=== PATIENT | male | born 1950 | race Caucasian/White ===

== ENCOUNTER 2017-01-05 11:35 | Emergency (ER) | payer MEDICARE, MEDICAID ==
[~2017-01-05] VITALS: Ht 157.5 cm; Wt 94.3 kg
[~2017-01-05 11:35] MED LIST: ACETAMINOPHEN &1 TA1 PO; ALBUTEROL2.5 MG/NEB IN; ALDACTONE 25MG25 MG PO; AMIODARONE 200200 MG PO; ASPIR 8181 MG PO; ATIVAN GENERIC0.5 MG PO; BISAC-EVAC10 MG PR; BUTRANS10 MCG/HR TD; CARAFATE 11 GM/10 ML PO; CARVEDILOL 25MG25 MG PO; CLOPIDOGREL75 MG PO; DEMADEX20 MG PO; DOCUSATE SODIU100 MG PO; FERROUS SULFAT325 M2 PO; FLONASE 50 MCG16 GM; GOOD SENSE PAI500 MG PO; HUMALOG PEN100 U/ML SC; HYDROCODONE/ACE1 TA5 PO; INSPRA25 MG PO; KEFLEX 500MG.500 MG PO; LACTULOSE10 GM/15 M PO; LASIX 40MG. TAB40 MG PO; LEVEMIR FLEX100 U/ML SC; LIPITOR80 MG PO; LOPRESSOR 25MG.25 MG FT; LORATADINE 10MG10 M1 PO; LORTAB 500 MG-11 TAB PO; LYRICA50 M1 PO; METOLAZONE 5MG T5 MG PO; MORPHINE SULFAT15 M1 PO; MORPHINE SULFAT15 M2 PO; MORPHINE SULFAT60 MG PO; MULTIVITAMIN1 SGL PO; NEURONTIN400 MG; NORCO 325 MG-101 TAB PO; NOVOLIN R100 U/ML; NOVOLOG FLEX100 U/ML SC; NOVOLOG100 U/ML SC; Novolog100 U/ML SC; OMEPRAZOLE20 MG PO; PREGABALIN 50MG50 MG PO; PRINIVIL10 M1 PO; REQUIP0.25 MG PO; ROBAFEN DM 10120 ML PO; ROBITUSSIN10 ML/UDC PO; ROPINIROLE HYDRO2 MG PO; SENNA LAXATIVE8.6 MG PO; TAMIFLU 75MG CA75 MG PO; TAMSULOSIN HYD0.4 MG PO; TORSEMIDE 20MG20 MG PO; VITAMIN D1000 IU PO; ZANTAC 150150 MG PO
--- NOTE | 2017-01-05 11:42 | Emergency Room Report ---
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 N Clinical Suspician of Infection? N Mental Status: 1 - Regular (Normal Baseline) Sepsis Risk:Low Sepsis Risk Have you (or family members/close friends) recently traveled outside the [place]? N If Yes, where/when: Have you had exposure to infectious disease within the past month? TB? Other? Specify: Comment The patient is brought in by ambulance from a senior living. He complains of "smothering". He says this is been going on for 1 month, but is getting worse. He saw his binding cementer french cord yesterday who told him he had "fluid everywhere". His dose of torsemide was increased. He also was started on doxycycline for cellulitis of his legs. He says they told him if he was not better today to come to the emergency room and be admitted. He also says that his abdomen feels tight. He says his bowels are not moving. He says his last bowel movement was 4 days ago. The patient's binding cementer french [facility] Coded Allergies: sulfamethoxazole (From BACTRIM) (01/05/17) trimethoprim (From BACTRIM) (01/05/17) Home Medications Reported Medications INSULIN ASPART (Novolog) 11 UNITS SC AC Insulin Aspart, Recombinant (Novolog VIAL) 0 SC AC ROPINIROLE HCL (Ropinirole) 2 MG PO QHS Aspirin (Aspirin EC 81MG Tab) 81 MG PO DAILY Carvedilol (Carvedilol 25MG) 25 MG PO BID Ferrous Sulfate (Ferrous Sulfate 325MG) 325 MG PO QPM HYDROCODONE/ACETAMINOPHEN ([place] 10-325 Tablet) 1 TAB PO Q6PRN PRN PAIN Docusate Sodium 250 MG PO DAILY Insulin Detemir (Levemir Flextouch) 35 UNITS SC QHS #3 Acetaminophen (Pain Relief) 1,000 MG PO Q6HP PRN PAIN/FEVER Bisacodyl (Bisacodyl Supp) 10 MG [place] DAILYP PRN CONSTIPATION Lactulose (Lactulose) 30 ML PO DAILYP PRN CONSTIPATION TORSEMIDE (Torsemide 20MG) 20 MG PO BID Eplerenone (Inspra) 12.5 MG PO DAILY GUAIFENESIN/DEXTROMETHORPHAN (Robafen-Dm Syrup) 5 ML PO QHS Pregabalin (Lyrica) 50 MG PO TID Atorvastatin Calcium (Atorvastatin) 80 MG PO QHS Loratadine (Loratadine 10MG Tablet) 10 MG PO DAILY MULTIVITAMIN (Multivitamins) 1 SGL PO DAILY Ranitidine Hcl (Zantac) 150 MG PO BID Senna Pod (Senna Laxative) 2 TAB PO BID CHOLECALCIFEROL (VITAMIN D3) (Vitamin D3) 2,000 IUNITS PO DAILY History Medical History General CAD? No Angina: No [place]: Yes Hypertension? Yes Hyperlipidemia? Yes CHF? Yes DVT? No PE? No COPD? Yes Asthma? No Anemia? Yes GERD? Yes Gastric ulcers? No GI Bleed? No Hernia? No Thyroid Problems? No Hypothyroidism? No CVA? No Seizures? No Diabetes? 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 Yes End Stage Renal Disease? No UTI? Yes Stones? No BPH? No GB Disease: No Nephritic Syndrome? No Asplenia? No Hepatitis? No Sickle Cell Disease? No Arthritis? Yes Migraines? Yes Cataracts? No Glaucoma? No MRSA? No HIV? No TB? No Anxiety? No Depression? No Cancer? No More? Yes Additional hx: RHEUMATOID ARTHRITIS OSTEOARTHRITIS Immunization Hx Ped.Immunizations UTD Yes DT/Tetanus Unknown Flu 2014-FSN Pneumonia Refuses Surgical Hx Previous Surgery?Y STENTS X2 DEFIBRILLATOR PORT PLACED Family History Family Hx Diabetes Yes CAD Yes Hypertension Yes Hyperlipidemia Yes Cancer Yes TB No Social History Smoking Hx Smoker: Unknown if Ever Smoked Tobacco: No Type N/A Packs/day N/A Alcohol Alcohol: No Review of Systems All Other Systems Reviewed and Negative Constitutional denies fever Respiratory shortness of breath Cardiovascular denies chest pain, edema Gastrointestinal see HPI Physical Exam Vital Signs Vital Signs Date Time Temp Pulse Resp B/P Pulse O2 O2 Flow FiO2 Ox Delivery Rate 01/05 1530 80 18 125/74 98 01/05 1507 82 18 131/76 94 3 01/05 1401 77 18 143/66 92 3 01/05 1156 92 01/05 1136 98.3 86 18 146/76 98 General Appearance debilitated Eye Exam - bilateral eye normal exam, bilateral eye PERRL, bilateral eye EOMI Ear, Nose, Throat hearing grossly normal, normal ENT inspection Neck normal inspection, non-tender, supple, full range of motion Respiratory Status Yes: trachea midline, chest symmetrical. No: respiratory distress. Lung Sounds bilateral: decreased breath sounds. Cardiovascular normal exam, regular rate/rhythm, no peripheral edema, no gallop, no JVD, no murmur, no rub, normal peripheral pulses Gastrointestinal normal bowel sounds, normal exam, non tender, soft, no organomegaly Extremities edema all 4 extremities, eyrthema of lower legs bilaterally symmetric Neurologic alert Mental status normal mood/affect Skin intact, normal color, warm/dry Medical Decision Making LABS/Meds/Orders Pt receiving controlled substance in ED? No Results/Orders Laboratory Tests 01/05/17 1140: Sodium 142, Potassium 4.3, Chloride 102, Carbon Dioxide 39 H, BUN 65 H, Creatinine 1.7 H, Estimated Creat Clear 56, Estimated GFR (MDRD) 40, Glucose 201 H, Calcium 8.8, Total Bilirubin 0.4, AST 20, ALT 23, Alkaline Phosphatase 77, Creatine Kinase 40, CK-MB (CK-2) Rel Index 2.5, CK and CKMB Interp 1.0, Troponin I 0.03, B-Natriuretic Peptide 148 H, Total Protein 7.8, Albumin 2.6 L , Globulin 5.2 H, Albumin/Globulin Ratio 0.5 L, WBC 8.4, RBC 4.11 L, Hgb 9.6 L, Hct 33.1 L, MCV 80.5 L, RDW 15.7, Plt Count 217, MPV 8.1, Gran % 86.2 H, Gran # 7.3, Total Counted 100, Lymphocytes % 6.7 L, Monocytes % 4.6, Eosinophils % 2.4, Basophils % 0.2, Neutrophils 93 H, Lymphocytes (Manual) 4 L , Lymphocytes # 0.6 L, Monocytes (Manual) 1 L, Monocytes # 0.4, Eosinophils # 0.2, Eosinophils # (Manual) 2, Basophils # 0.0, Platelet Estimate NORMAL, PUBS MCHC 28.9 L, MCH 23.3 L, Influenza Type A Ag NOT DETECTED, Influenza Type B Ag NOT DETECTED Current Medication Orders Sig/Malorie Start time Last Medication Dose Route Stop Time Status Admin Furosemide 80 MG ONCE ONE 01/05 1445 DC 01/05 IV 01/05 1446 1435 Furosemide 0 .STK-MED ONE 01/05 1434 DC .ROUTE Furosemide 80 MG ONCE ONE 01/05 1415 CAN IV 01/05 1416 Sodium Chloride 10 ML PRN PRN 01/05 1200 DCD IV 01/06 1148 Orders Procedure Date/time Status OXYGEN PER NURSE 01/05 1155 Active 12 LEAD EKG-MAGEN (INITIAL) 01/05 1150 Active ELECTROCARDIOGRAM REQUEST 01/05 1148 Active IV SALINE LOCK 01/05 1148 Active INFLUENZA A&B ANTIGENS 01/05 1148 Complete CBC WITH AUTO DIFF 01/05 1148 Complete CARDIAC ENZYMES 01/05 1148 Complete CHEM 12 PROFILE 01/05 1148 Complete BRAIN NATRIURETIC PEPTIDE 01/05 1148 Complete DIFFERENTIAL-WBC 01/05 1140 Complete CM/EKG CM/EKG Comments EKG interpreted by Jay Black MD: Rhythm: sinus Rate: 80 [place]: normal Ectopy: none Conduction: normal ST Segment Changes: none T Wave Changes: none Q Waves: none No evidence of acute ischemia or injury Baseline artifact and wander present, but I consider the EKG adequate for accurate interpretation. XRAY/CT/US XRAY/CT/US XRAY chest Comment X-ray interpreted by radiologist: Mild congestive heart failure, low lung volumes Progress - 2:25 PM: Case discussed with Dr. Flower, his PCP. He states that he has nothing to offer the patient here, since his binding cementer french cord does not come here and the patient's primary problem is congestive heart failure. He states patient is chronically short of breath. I have discussed this with the patient. He states that he does not want [facility] be [facility] to [facility], does not want to be admitted, because the last time he was admitted he just sat in a room for several days. He saw his binding cementer french cord yesterday and has another appointment to see him on next he wants to wait until then. I will give him a dose of Lasix here. He is happy with this and wants to be discharged back to the senior living. Departure Departure Disposition DC Home or Self Care(routine) Clinical Impression Primary Impression: Congestive heart failure Qualifiers: Congestive heart failure type: unspecified congestive heart failure type Congestive heart failure chronicity: acute on chronic Qualified Code: I50.9 - Heart failure, unspecified Condition STABLE Referrals NO REFERRAL Patient Instructions DI for Heart Failure Additional Instructions Continue current medications. Call the patient's binding cementer french cord, Dr. Henley, for further instructions. ED Critical Care Critical Care No at 1601
--- NOTE | 2017-01-05 11:42 | Emergency Room Report ---
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 N Clinical Suspician of Infection? N Mental Status: 1 - Regular (Normal Baseline) Sepsis Risk:Low Sepsis Risk Have you (or family members/close friends) recently traveled outside the [place]? N If Yes, where/when: Have you had exposure to infectious disease within the past month? TB? Other? Specify: Comment The patient is brought in by ambulance from a assisted. He complains of "smothering". He says this is been going on for 1 month, but is getting worse. He saw his biologist yesterday who told him he had "fluid everywhere". His dose of torsemide was increased. He also was started on doxycycline for cellulitis of his legs. He says they told him if he was not better today to come to the emergency room and be admitted. He also says that his abdomen feels tight. He says his bowels are not moving. He says his last bowel movement was 4 days ago. The patient's biologist is Dr. Henley at [facility] ALLERGIES Coded Allergies: sulfamethoxazole (From BACTRIM) (01/05/17) trimethoprim (From BACTRIM) (01/05/17) Home Medications Reported Medications INSULIN ASPART (Novolog) 11 UNITS SC AC Insulin Aspart, Recombinant (Novolog VIAL) 0 SC AC ROPINIROLE HCL (Ropinirole) 2 MG PO QHS Aspirin (Aspirin EC 81MG Tab) 81 MG PO DAILY Carvedilol (Carvedilol 25MG) 25 MG PO BID Ferrous Sulfate (Ferrous Sulfate 325MG) 325 MG PO QPM HYDROCODONE/ACETAMINOPHEN ([place] 10-325 Tablet) 1 TAB PO Q6PRN PRN PAIN Docusate Sodium 250 MG PO DAILY Insulin Detemir (Levemir Flextouch) 35 UNITS SC QHS #3 Acetaminophen (Pain Relief) 1,000 MG PO Q6HP PRN PAIN/FEVER Bisacodyl (Bisacodyl Supp) 10 MG [place] DAILYP PRN CONSTIPATION Lactulose (Lactulose) 30 ML PO DAILYP PRN CONSTIPATION TORSEMIDE (Torsemide 20MG) 20 MG PO BID Eplerenone (Inspra) 12.5 MG PO DAILY GUAIFENESIN/DEXTROMETHORPHAN (Robafen-Dm Syrup) 5 ML PO QHS Pregabalin (Lyrica) 50 MG PO TID Atorvastatin Calcium (Atorvastatin) 80 MG PO QHS Loratadine (Loratadine 10MG Tablet) 10 MG PO DAILY MULTIVITAMIN (Multivitamins) 1 SGL PO DAILY Ranitidine Hcl (Zantac) 150 MG PO BID Senna Pod (Senna Laxative) 2 TAB PO BID CHOLECALCIFEROL (VITAMIN D3) (Vitamin D3) 2,000 IUNITS PO DAILY History Medical History General CAD? No Angina: No [place]: Yes Hypertension? Yes Hyperlipidemia? Yes CHF? Yes DVT? No PE? No COPD? Yes Asthma? No Anemia? Yes GERD? Yes Gastric ulcers? No GI Bleed? No Hernia? No Thyroid Problems? No Hypothyroidism? No CVA? No Seizures? No Diabetes? 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 Yes End Stage Renal Disease? No UTI? Yes Stones? No BPH? No GB Disease: No Nephritic Syndrome? No Asplenia? No Hepatitis? No Sickle Cell Disease? No Arthritis? Yes Migraines? Yes Cataracts? No Glaucoma? No MRSA? No HIV? No TB? No Anxiety? No Depression? No Cancer? No More? Yes Additional hx: RHEUMATOID ARTHRITIS OSTEOARTHRITIS Immunization Hx Ped.Immunizations UTD Yes DT/Tetanus Unknown Flu 2014-FSN Pneumonia Refuses Surgical Hx Previous Surgery?Y STENTS X2 DEFIBRILLATOR PORT PLACED Family History Family Hx Diabetes Yes CAD Yes Hypertension Yes Hyperlipidemia Yes Cancer Yes TB No Social History Smoking Hx Smoker: Unknown if Ever Smoked Tobacco: No Type N/A Packs/day N/A Alcohol Alcohol: No Review of Systems All Other Systems Reviewed and Negative Constitutional denies fever Respiratory shortness of breath Cardiovascular denies chest pain, edema Gastrointestinal see HPI Physical Exam Vital Signs Vital Signs Date Time Temp Pulse Resp B/P Pulse O2 O2 Flow FiO2 Ox Delivery Rate 01/05 1530 80 18 125/74 98 01/05 1507 82 18 131/76 94 3 01/05 1401 77 18 143/66 92 3 01/05 1156 92 01/05 1136 98.3 86 18 146/76 98 General Appearance debilitated Eye Exam - bilateral eye normal exam, bilateral eye PERRL, bilateral eye EOMI Ear, Nose, Throat hearing grossly normal, normal ENT inspection Neck normal inspection, non-tender, supple, full range of motion Respiratory Status Yes: trachea midline, chest symmetrical. No: respiratory distress. Lung Sounds bilateral: decreased breath sounds. Cardiovascular normal exam, regular rate/rhythm, no peripheral edema, no gallop, no JVD, no murmur, no rub, normal peripheral pulses Gastrointestinal normal bowel sounds, normal exam, non tender, soft, no organomegaly Extremities edema all 4 extremities, eyrthema of lower legs bilaterally symmetric Neurologic alert Mental status normal mood/affect Skin intact, normal color, warm/dry Medical Decision Making LABS/Meds/Orders Pt receiving controlled substance in ED? No Results/Orders Laboratory Tests 01/05/17 1140: Sodium 142, Potassium 4.3, Chloride 102, Carbon Dioxide 39 H, BUN 65 H, Creatinine 1.7 H, Estimated Creat Clear 56, Estimated GFR (MDRD) 40, Glucose 201 H, Calcium 8.8, Total Bilirubin 0.4, AST 20, ALT 23, Alkaline Phosphatase 77, Creatine Kinase 40, CK-MB (CK-2) Rel Index 2.5, CK and CKMB Interp 1.0, Troponin I 0.03, B-Natriuretic Peptide 148 H, Total Protein 7.8, Albumin 2.6 L , Globulin 5.2 H, Albumin/Globulin Ratio 0.5 L, WBC 8.4, RBC 4.11 L, Hgb 9.6 L, Hct 33.1 L, MCV 80.5 L, RDW 15.7, Plt Count 217, MPV 8.1, Gran % 86.2 H, Gran # 7.3, Total Counted 100, Lymphocytes % 6.7 L, Monocytes % 4.6, Eosinophils % 2.4, Basophils % 0.2, Neutrophils 93 H, Lymphocytes (Manual) 4 L , Lymphocytes # 0.6 L, Monocytes (Manual) 1 L, Monocytes # 0.4, Eosinophils # 0.2, Eosinophils # (Manual) 2, Basophils # 0.0, Platelet Estimate NORMAL, PUBS MCHC 28.9 L, MCH 23.3 L, Influenza Type A Ag NOT DETECTED, Influenza Type B Ag NOT DETECTED Current Medication Orders Sig/Malorie Start time Last Medication Dose Route Stop Time Status Admin Furosemide 80 MG ONCE ONE 01/05 1445 DC 01/05 IV 01/05 1446 1435 Furosemide 0 .STK-MED ONE 01/05 1434 DC .ROUTE Furosemide 80 MG ONCE ONE 01/05 1415 CAN IV 01/05 1416 Sodium Chloride 10 ML PRN PRN 01/05 1200 DCD IV 01/06 1148 Orders Procedure Date/time Status OXYGEN PER NURSE 01/05 1155 Active 12 LEAD EKG-MAGEN (INITIAL) 01/05 1150 Active ELECTROCARDIOGRAM REQUEST 01/05 1148 Active IV SALINE LOCK 01/05 1148 Active INFLUENZA A&B ANTIGENS 01/05 1148 Complete CBC WITH AUTO DIFF 01/05 1148 Complete CARDIAC ENZYMES 01/05 1148 Complete CHEM 12 PROFILE 01/05 1148 Complete BRAIN NATRIURETIC PEPTIDE 01/05 1148 Complete DIFFERENTIAL-WBC 01/05 1140 Complete CM/EKG CM/EKG Comments EKG interpreted by Jay Black MD: Rhythm: sinus Rate: 80 [place]: normal Ectopy: none Conduction: normal ST Segment Changes: none T Wave Changes: none Q Waves: none No evidence of acute ischemia or injury Baseline artifact and wander present, but I consider the EKG adequate for accurate interpretation. XRAY/CT/US XRAY/CT/US XRAY chest Comment X-ray interpreted by radiologist: Mild congestive heart failure, low lung volumes Progress - 2:25 PM: Case discussed with Dr. Flower, his PCP. He states that he has nothing to offer the patient here, since his biologist does not come here and the patient's primary problem is congestive heart failure. He states patient is chronically short of breath. I have discussed this with the patient. He states that he does not want to be transferred to [facility], does not want to be admitted, because the last time he was admitted he just sat in a room for several days. He saw his biologist yesterday and has another appointment to see him on next he wants to wait until then. I will give him a dose of Lasix here. He is happy with this and wants to be discharged back to the assisted. Departure Departure Disposition DC Home or Self Care(routine) Clinical Impression Primary Impression: Congestive heart failure Qualifiers: Congestive heart failure type: unspecified congestive heart failure type Congestive heart failure chronicity: acute on chronic Qualified Code: I50.9 - Heart failure, unspecified Condition STABLE Referrals NO REFERRAL Patient Instructions DI for Heart Failure Additional Instructions Continue current medications. Call the patient's biologist, Dr. Henley, for further instructions. ED Critical Care Critical Care No at 1601
[2017-01-05 12:01] LABS: HEMOGLOBIN 9.6 g/dL (14.1-18.0); LYMPH # 0.6 K/mm3 (0.7-4.5); LYMPH % 6.7 % (10-50)
[2017-01-05 12:23] LABS: NEUTROPHILS 93 % (42-76)
--- NOTE | 2017-01-05 13:26 | RADIOLOGY REPORT PS360 ---
CHEST-AP VIEW ONLY HISTORY: DIFFICULTY BREATHING ORDERING PHYSICIAN: Jay Black MD PATIENT AGE: 66 years COMPARISON: 09/28/2016 FINDINGS: There are low lung volumes There is cardiomegaly with prominence of the mediastinum similar to the previous exam. There is mild prominence of the pulmonary vasculature which may in part be due to the AP positioning and low lung volumes. Mild CHF is not excluded. There is a left subclavian Mediport catheter present. The tip is difficult to visualize. Right subclavian placed pacemaker is noted. IMPRESSION: Low lung volumes with mild CHF and prominent mediastinum
[2017-01-05 15:30] VITALS: BP 125/74
== END 2017-01-05 15:30 | disposition home or self-care (01) ==
LOC: ER 11:35
PROVIDERS: Emergency Medicine
DX: I50.9 Heart failure, unspecified (principal); Z79.899 Other long term (current) drug therapy; I10 Essential (primary) hypertension; J44.9 Chronic obstructive pulmonary disease, unspecified; Z88.2 Allergy status to sulfonamides; K21.9 Gastro-esophageal reflux disease without esophagitis; E11.9 Type 2 diabetes mellitus without complications; Z79.4 Long term (current) use of insulin; N28.9 Disorder of kidney and ureter, unspecified

== ENCOUNTER 2017-01-27 04:41 | Emergency (ER) | payer MEDICARE, MEDICAID ==
[~2017-01-27] VITALS: Ht 157.5 cm; Wt 94.3 kg
[2017-01-27] MEDS ORDERED: ATIVAN GENERIC0.5 MG PO (05:18)
--- NOTE | 2017-01-27 05:19 | Emergency Room Report ---
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 N Clinical Suspician of Infection? N Mental Status: 1 - Regular (Normal Baseline) Sepsis Risk:Low Sepsis Risk Have you (or family members/close friends) recently traveled outside the [place]? N If Yes, where/when: Have you had exposure to infectious disease within the past month? N TB? Other? Specify: Source patient, RN notes reviewed, family, EMS, longterm records, old records Exam Limitations no limitations Comment pt with sob at [facility] with hx of chfwith no chest pain Cardiac Chest Pain Chest pain indicative of cardiac No Timing/Duration this evening Severity moderate ALLERGIES Coded Allergies: sulfamethoxazole (From BACTRIM) (01/05/17) trimethoprim (From BACTRIM) (01/05/17) Home Medications Reported Medications ROPINIROLE HCL (Ropinirole) 2 MG PO QHS Aspirin (Aspirin EC 81MG Tab) 81 MG PO DAILY Carvedilol (Carvedilol 25MG) 25 MG PO BID Ferrous Sulfate (Ferrous Sulfate 325MG) 325 MG PO QPM HYDROCODONE/ACETAMINOPHEN (Hardwick 10-325 Tablet) 1 TAB PO Q6PRN PRN PAIN Docusate Sodium 250 MG PO DAILY Acetaminophen (Pain Relief) 1,000 MG PO Q6HP PRN PAIN/FEVER Bisacodyl (Bisacodyl Supp) 10 MG IN DAILYP PRN CONSTIPATION Lactulose (Lactulose) 30 ML PO DAILYP PRN CONSTIPATION Eplerenone (Inspra) 12.5 MG PO DAILY GUAIFENESIN/DEXTROMETHORPHAN (Robafen-Dm Syrup) 5 ML PO QHS Pregabalin (Lyrica) 50 MG PO TID Atorvastatin Calcium (Atorvastatin) 80 MG PO QHS Loratadine (Loratadine 10MG Tablet) 10 MG PO DAILY MULTIVITAMIN (Multivitamins) 1 SGL PO DAILY Ranitidine Hcl (Zantac) 150 MG PO BID Senna Pod (Senna Laxative) 2 TAB PO BID CHOLECALCIFEROL (VITAMIN D3) (Vitamin D3) 2,000 IUNITS PO DAILY Lorazepam (Ativan) 0.5 MG PO QHS Insulin Detemir (Levemir 10ML VIAL) 45 UNITS SC QHS Insulin Aspart, Recombinant (Novolog Flexpen) 30 UNITS SC DAILY History Medical History General CAD? No Angina: No RI: Yes Hypertension? Yes Hyperlipidemia? Yes CHF? Yes DVT? No PE? No COPD? Yes Asthma? No Anemia? Yes GERD? Yes Gastric ulcers? No GI Bleed? No Hernia? No Thyroid Problems? No Hypothyroidism? No CVA? No Seizures? No Diabetes? 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 Yes End Stage Renal Disease? No UTI? Yes Stones? No BPH? No GB Disease: No Nephritic Syndrome? No Asplenia? No Hepatitis? No Sickle Cell Disease? No Arthritis? Yes Migraines? Yes Cataracts? No Glaucoma? No MRSA? No HIV? No TB? No Anxiety? No Depression? No Cancer? No More? Yes Additional hx: RHEUMATOID ARTHRITIS OSTEOARTHRITIS Immunization Hx DT/Tetanus Unknown Flu 2014-16FSN Pneumonia Refuses Surgical Hx Previous Surgery?Y STENTS X2 DEFIBRILLATOR PORT PLACED Family History Family Hx Diabetes Yes CAD Yes Hypertension Yes Hyperlipidemia Yes Cancer Yes TB No Social History Smoking Hx Smoker: Never Smoker Tobacco: No Type Cigarettes Packs/day N/A Alcohol Alcohol: No Drugs none Review of Systems All Other Systems Reviewed and Negative Constitutional denies fever Eyes denies drainage ENT denies: ear discharge, epistaxis, throat pain. Respiratory see HPI, denies cough, shortness of breath, denies wheezing Cardiovascular see HPI, chest pain, denies palpitations, denies syncope Gastrointestinal denies abdominal pain, denies diarrhea, denies vomiting Genitourinary denies: dysuria, frequency, hesitancy, hematuria. Musculoskeletal denies back pain, denies joint pain, denies neck pain Skin denies rash Psychiatric/Neurological denies headache, denies seizure Physical Exam Vital Signs Vital Signs Date Time Temp Pulse Resp B/P Pulse O2 O2 Flow FiO2 Ox Delivery Rate 01/27 0649 77 20 152/78 92 2 01/27 0616 77 20 154/81 94 2 01/27 0532 83 28 162/81 92 2 01/27 0527 35 93 2 01/27 0442 98.4 86 35 158/81 93 2 - WBC >12,000 or <4,000 or 10% bands? 2 or more SIRS Criteria Met? B/P:152/78 MAP:106 Creatinine >2.0? UA output<0.5ml/kg/hr for 2 hrs? Platelet count >100,000? Lactate >2.0mmol/1? INR >1.2 or PTT > than 60 sec? Evidence of Organ Dysfunction? Provider documented clinical suspician of infection? N Sepsis Criteria Count: 1 Sepsis Risk: Low Sepsis Risk General Appearance no apparent distress Eye Exam - bilateral eye PERRL, bilateral eye EOMI Ear, Nose, Throat normal ENT inspection Neck supple Respiratory Status No: respiratory distress. Lung Sounds bilateral: decreased breath sounds. 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 No Results/Orders Laboratory Tests 01/27/17 0450: Sodium 143, Potassium 4.4, Chloride 103, Carbon Dioxide 41 *H, BUN 57 H, Creatinine 1.4 H, Estimated Creat Clear 68, Estimated GFR (MDRD) 51, Glucose 146 H, Calcium 8.9, Total Bilirubin 0.5, AST 19, ALT 19, Alkaline Phosphatase 69, Creatine Kinase 43, CK-MB (CK-2) Rel Index 3.0, CK and CKMB Interp 1.3, Troponin I 0.02, B-Natriuretic Peptide 923 H, Total Protein 7.8, Albumin 2.7 L , Globulin 5.1 H, Albumin/Globulin Ratio 0.5 L, WBC 7.2, RBC 4.10 L, Hgb 9.7 L, Hct 32.9 L, MCV 80.3 L, RDW 16.5, Plt Count 212, MPV 7.8, Gran % 83.3 H, Gran # 6.0, Lymphocytes % 8.7 L, Monocytes % 6.2, Eosinophils % 1.5, Basophils % 0.2, Lymphocytes # 0.6 L, Monocytes # 0.4, Eosinophils # 0.1, Basophils # 0.0 , PUBS MCHC 29.6 L, MCH 23.7 L Current Medication Orders Sig/Malorie Start time Last Medication Dose Route Stop Time Status Admin Furosemide 40 MG ONCE ONE 01/27 530 DC 01/27 IV 01/27 531 0524 Furosemide 0 .STK-MED ONE 01/27 523 DC .ROUTE Orders Procedure Date/time Status ELECTROCARDIOGRAM REQUEST 01/27 501 Active IV SALINE LOCK 01/27 501 Active ONLINE MERCHANT 01/27 501 Active CBC WITH AUTO DIFF 01/27 501 Complete CARDIAC ENZYMES 01/27 501 Complete CHEM 12 PROFILE 01/27 501 Complete BRAIN NATRIURETIC PEPTIDE 01/27 501 Complete 12 LEAD EKG-BESSON (INITIAL) 01/27 500 Active CM/EKG 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 ST/Twave chgs XRAY/CT/US XRAY/CT/US XRAY chest XR interpretation by reviewed by me Xray Results abnormal (see report) Departure Departure Time of Disposition 08 Disposition DC Home or Self Care(routine) Clinical Impression Primary Impression: CHF (congestive heart failure) Qualifiers: Congestive heart failure type: combined Congestive heart failure chronicity: acute on chronic Qualified Code: I50.43 - Acute on chronic combined systolic (congestive) and diastolic (congestive) heart failure Secondary Impressions: Anemia Qualifiers: Anemia type: unspecified type Qualified Code: D64.9 - Anemia, unspecified Renal insufficiency Condition STABLE Patient Instructions [facility] Additional Instructions resume meds Discharge Counseling Counseled pt/family regarding diagnosis, test results, medications/RX, follow up needs ED Critical Care Critical Care No at 0812
--- NOTE | 2017-01-27 05:19 | Emergency Room Report ---
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 N Clinical Suspician of Infection? N Mental Status: 1 - Regular (Normal Baseline) Sepsis Risk:Low Sepsis Risk Have you (or family members/close friends) recently traveled outside the [place]? N If Yes, where/when: Have you had exposure to infectious disease within the past month? N TB? Other? Specify: Source patient, RN notes reviewed, family, EMS, custodial records, old records Exam Limitations no limitations Comment pt with sob at [facility] with hx of chfwith no chest pain Cardiac Chest Pain Chest pain indicative of cardiac No Timing/Duration this evening Severity moderate ALLERGIES Coded Allergies: sulfamethoxazole (From BACTRIM) (01/05/17) trimethoprim (From BACTRIM) (01/05/17) Home Medications Reported Medications ROPINIROLE HCL (Ropinirole) 2 MG PO QHS Aspirin (Aspirin EC 81MG Tab) 81 MG PO DAILY Carvedilol (Carvedilol 25MG) 25 MG PO BID Ferrous Sulfate (Ferrous Sulfate 325MG) 325 MG PO QPM HYDROCODONE/ACETAMINOPHEN (Darwin 10-325 Tablet) 1 TAB PO Q6PRN PRN PAIN Docusate Sodium 250 MG PO DAILY Acetaminophen (Pain Relief) 1,000 MG PO Q6HP PRN PAIN/FEVER Bisacodyl (Bisacodyl Supp) 10 MG DE DAILYP PRN CONSTIPATION Lactulose (Lactulose) 30 ML PO DAILYP PRN CONSTIPATION Eplerenone (Inspra) 12.5 MG PO DAILY GUAIFENESIN/DEXTROMETHORPHAN (Robafen-Dm Syrup) 5 ML PO QHS Pregabalin (Lyrica) 50 MG PO TID Atorvastatin Calcium (Atorvastatin) 80 MG PO QHS Loratadine (Loratadine 10MG Tablet) 10 MG PO DAILY MULTIVITAMIN (Multivitamins) 1 SGL PO DAILY Ranitidine Hcl (Zantac) 150 MG PO BID Senna Pod (Senna Laxative) 2 TAB PO BID CHOLECALCIFEROL (VITAMIN D3) (Vitamin D3) 2,000 IUNITS PO DAILY Lorazepam (Ativan) 0.5 MG PO QHS Insulin Detemir (Levemir 10ML VIAL) 45 UNITS SC QHS Insulin Aspart, Recombinant (Novolog Flexpen) 30 UNITS SC DAILY History Medical History General CAD? No Angina: No NM: Yes Hypertension? Yes Hyperlipidemia? Yes CHF? Yes DVT? No PE? No COPD? Yes Asthma? No Anemia? Yes GERD? Yes Gastric ulcers? No GI Bleed? No Hernia? No Thyroid Problems? No Hypothyroidism? No CVA? No Seizures? No Diabetes? 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 Yes End Stage Renal Disease? No UTI? Yes Stones? No BPH? No GB Disease: No Nephritic Syndrome? No Asplenia? No Hepatitis? No Sickle Cell Disease? No Arthritis? Yes Migraines? Yes Cataracts? No Glaucoma? No MRSA? No HIV? No TB? No Anxiety? No Depression? No Cancer? No More? Yes Additional hx: RHEUMATOID ARTHRITIS OSTEOARTHRITIS Immunization Hx DT/Tetanus Unknown Flu 2014-16FSN Pneumonia Refuses Surgical Hx Previous Surgery?Y STENTS X2 DEFIBRILLATOR PORT PLACED Family History Family Hx Diabetes Yes CAD Yes Hypertension Yes Hyperlipidemia Yes Cancer Yes TB No Social History Smoking Hx Smoker: Never Smoker Tobacco: No Type Cigarettes Packs/day N/A Alcohol Alcohol: No Drugs none Review of Systems All Other Systems Reviewed and Negative Constitutional denies fever Eyes denies drainage ENT denies: ear discharge, epistaxis, throat pain. Respiratory see HPI, denies cough, shortness of breath, denies wheezing Cardiovascular see HPI, chest pain, denies palpitations, denies syncope Gastrointestinal denies abdominal pain, denies diarrhea, denies vomiting Genitourinary denies: dysuria, frequency, hesitancy, hematuria. Musculoskeletal denies back pain, denies joint pain, denies neck pain Skin denies rash Psychiatric/Neurological denies headache, denies seizure Physical Exam Vital Signs Vital Signs Date Time Temp Pulse Resp B/P Pulse O2 O2 Flow FiO2 Ox Delivery Rate 01/27 0649 77 20 152/78 92 2 01/27 0616 77 20 154/81 94 2 01/27 0532 83 28 162/81 92 2 01/27 0527 35 93 2 01/27 0442 98.4 86 35 158/81 93 2 - WBC >12,000 or <4,000 or 10% bands? 2 or more SIRS Criteria Met? B/P:152/78 MAP:106 Creatinine >2.0? UA output<0.5ml/kg/hr for 2 hrs? Platelet count >100,000? Lactate >2.0mmol/1? INR >1.2 or PTT > than 60 sec? Evidence of Organ Dysfunction? Provider documented clinical suspician of infection? N Sepsis Criteria Count: 1 Sepsis Risk: Low Sepsis Risk General Appearance no apparent distress Eye Exam - bilateral eye PERRL, bilateral eye EOMI Ear, Nose, Throat normal ENT inspection Neck supple Respiratory Status No: respiratory distress. Lung Sounds bilateral: decreased breath sounds. 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 No Results/Orders Laboratory Tests 01/27/17 0450: Sodium 143, Potassium 4.4, Chloride 103, Carbon Dioxide 41 *H, BUN 57 H, Creatinine 1.4 H, Estimated Creat Clear 68, Estimated GFR (MDRD) 51, Glucose 146 H, Calcium 8.9, Total Bilirubin 0.5, AST 19, ALT 19, Alkaline Phosphatase 69, Creatine Kinase 43, CK-MB (CK-2) Rel Index 3.0, CK and CKMB Interp 1.3, Troponin I 0.02, B-Natriuretic Peptide 923 H, Total Protein 7.8, Albumin 2.7 L , Globulin 5.1 H, Albumin/Globulin Ratio 0.5 L, WBC 7.2, RBC 4.10 L, Hgb 9.7 L, Hct 32.9 L, MCV 80.3 L, RDW 16.5, Plt Count 212, MPV 7.8, Gran % 83.3 H, Gran # 6.0, Lymphocytes % 8.7 L, Monocytes % 6.2, Eosinophils % 1.5, Basophils % 0.2, Lymphocytes # 0.6 L, Monocytes # 0.4, Eosinophils # 0.1, Basophils # 0.0 , PUBS MCHC 29.6 L, MCH 23.7 L Current Medication Orders Sig/Malorie Start time Last Medication Dose Route Stop Time Status Admin Furosemide 40 MG ONCE ONE 01/27 530 DC 01/27 IV 01/27 531 0524 Furosemide 0 .STK-MED ONE 01/27 523 DC .ROUTE Orders Procedure Date/time Status ELECTROCARDIOGRAM REQUEST 01/27 501 Active IV SALINE LOCK 01/27 501 Active 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 ST/Twave chgs XRAY/CT/US XRAY/CT/US XRAY chest XR interpretation by reviewed by me Xray Results abnormal (see report) Departure Departure Time of Disposition 08 Disposition DC Home or Self Care(routine) Clinical Impression Primary Impression: CHF (congestive heart failure) Qualifiers: Congestive heart failure type: combined Congestive heart failure chronicity: acute on chronic Qualified Code: I50.43 - Acute on chronic combined systolic (congestive) and diastolic (congestive) heart failure Secondary Impressions: Anemia Qualifiers: Anemia type: unspecified type Qualified Code: D64.9 - Anemia, unspecified Renal insufficiency Condition STABLE Patient Instructions [facility] Additional Instructions resume meds Discharge Counseling Counseled pt/family regarding diagnosis, test results, medications/RX, follow up needs ED Critical Care Critical Care No at 0812
[2017-01-27 05:20] LABS: HEMOGLOBIN 9.7 g/dL (14.1-18.0); LYMPH # 0.6 K/mm3 (0.7-4.5); LYMPH % 8.7 % (10-50)
[2017-01-27] MEDS ORDERED: LEVEMIR100 U/ML SC (05:20)
[2017-01-27] MEDS ORDERED: NOVOLOG FLEX100 U/ML SC (05:22)
--- NOTE | 2017-01-27 07:11 | RADIOLOGY REPORT PS360 ---
CHEST-PORTABLE HISTORY: Chest pain CP ORDERING PHYSICIAN: Seng Flower MD PATIENT AGE: 66 years COMPARISON: 09/28/2016 FINDINGS: There are low lung volumes. Left subclavian Mediport catheter present with the tip in region of the brachiocephalic vein centrally. Mediastinum is somewhat prominent which may be related to the poor inspiration. Cardiac pacemaker is present. Increased markings are present in the right suprahilar region and could be due to vascular crowding atelectasis or patchy infiltrate. Otherwise negative. IMPRESSION: Poor inspiration with vascular crowding versus patchy infiltrate in the right suprahilar region.
[2017-01-27 08:18] VITALS: BP 178/91
== END 2017-01-27 08:23 | disposition home or self-care (01) ==
LOC: ER 04:41
PROVIDERS: Emergency Medicine
DX: I50.43 Acute on chronic combined systolic (congestive) and diastolic (congestive) heart failure (principal); D64.9 Anemia, unspecified; E11.9 Type 2 diabetes mellitus without complications; Z79.4 Long term (current) use of insulin; K21.9 Gastro-esophageal reflux disease without esophagitis; J44.9 Chronic obstructive pulmonary disease, unspecified; I10 Essential (primary) hypertension; Z79.82 Long term (current) use of aspirin; Z88.2 Allergy status to sulfonamides

== ENCOUNTER 2017-02-19 11:59 | Emergency (ER) | payer MEDICARE, MEDICAID ==
[~2017-02-19] VITALS: Ht 157.5 cm; Wt 94.9 kg
[~2017-02-19 11:59] MED LIST changes: +LEVEMIR100 U/ML SC
--- NOTE | 2017-02-19 12:19 | Emergency Room Report ---
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 N Clinical Suspician of Infection? N Mental Status: 1 - Regular (Normal Baseline) Sepsis Risk:Low Sepsis Risk Have you (or family members/close friends) recently traveled outside the [place]? N If Yes, where/when: Have you had exposure to infectious disease within the past month? N TB? Other? Specify: SOB x several weeks; is on oxygen at [place]. No fever. Has chronic venous stasis, diabetic ulcers of legs, chronic edema, no new symptoms from that standpoint. No sputum. Hx CHF. NH reported wheezing; EMS reported good sats, no wheezing. Arrives w/o wheezing. No chest pain. ALLERGIES Coded Allergies: sulfamethoxazole (From BACTRIM) (01/05/17) trimethoprim (From BACTRIM) (01/05/17) Home Medications Reported Medications ROPINIROLE HCL (Ropinirole) 2 MG PO QHS Aspirin (Aspirin EC 81MG Tab) 81 MG PO DAILY Carvedilol (Carvedilol 25MG) 25 MG PO BID Ferrous Sulfate (Ferrous Sulfate 325MG) 325 MG PO QPM HYDROCODONE/ACETAMINOPHEN ([place] 10-325 Tablet) 1 TAB PO Q6PRN PRN PAIN Docusate Sodium 250 MG PO DAILY Acetaminophen (Pain Relief) 1,000 MG PO Q6HP PRN PAIN/FEVER Bisacodyl (Bisacodyl Supp) 10 MG [place] DAILYP PRN CONSTIPATION Lactulose (Lactulose) 30 ML PO DAILYP PRN CONSTIPATION Eplerenone (Inspra) 12.5 MG PO DAILY GUAIFENESIN/DEXTROMETHORPHAN (Robafen-Dm Syrup) 5 ML PO QHS Pregabalin (Lyrica) 50 MG PO TID Atorvastatin Calcium (Atorvastatin) 80 MG PO QHS Loratadine (Loratadine 10MG Tablet) 10 MG PO DAILY MULTIVITAMIN (Multivitamins) 1 SGL PO DAILY Ranitidine Hcl (Zantac) 150 MG PO BID Senna Pod (Senna Laxative) 2 TAB PO BID CHOLECALCIFEROL (VITAMIN D3) (Vitamin D3) 2,000 IUNITS PO DAILY Lorazepam (Ativan) 0.5 MG PO QHS Insulin Detemir (Levemir 10ML VIAL) 45 UNITS SC QHS Insulin Aspart, Recombinant (Novolog Flexpen) 30 UNITS SC DAILY History Medical History General CAD? No Angina: No MA: Yes Hypertension? Yes Hyperlipidemia? Yes CHF? Yes DVT? No PE? No COPD? Yes Asthma? No Anemia? Yes GERD? Yes Gastric ulcers? No GI Bleed? No Hernia? No Thyroid Problems? No Hypothyroidism? No CVA? No Seizures? No Diabetes? 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 Yes End Stage Renal Disease? No UTI? Yes Stones? No BPH? No GB Disease: No Nephritic Syndrome? No Asplenia? No Hepatitis? No Sickle Cell Disease? No Arthritis? Yes Migraines? Yes Cataracts? No Glaucoma? No MRSA? No HIV? No TB? No Anxiety? No Depression? No Cancer? No More? Yes Additional hx: RHEUMATOID ARTHRITIS OSTEOARTHRITIS Immunization Hx DT/Tetanus Unknown Flu 2014-16FSN Pneumonia Refuses Surgical Hx Previous Surgery?Y STENTS X2 DEFIBRILLATOR PORT PLACED Family History Family Hx Diabetes Yes CAD Yes Hypertension Yes Hyperlipidemia Yes Cancer Yes TB No Social History Smoking Hx Smoker: Never Smoker Tobacco: No Packs/day N/A Alcohol Alcohol: No Review of Systems All Other Systems Reviewed and Negative Respiratory see HPI (reports hx COPD and CHF) Skin see HPI Physical Exam Vital Signs Vital Signs Date Time Temp Pulse Resp B/P Pulse O2 O2 Flow FiO2 Ox Delivery Rate 02/19 1315 77 22 154/77 97 3 02/19 1221 96 02/19 1200 98.5 79 22 143/65 96 3 General Appearance normal appearance, WD/WN, no apparent distress (on oxygen) Eye Exam - bilateral eye normal exam, bilateral eye PERRL, bilateral eye EOMI Neck normal inspection, non-tender, supple, full range of motion Respiratory Status Yes: trachea midline, chest symmetrical, non tender chest. No: respiratory distress, tender on palpation, use of accessory muscles, pain on inspiration, pain on expiration, productive cough, non productive cough. Lung Sounds bilateral: normal breath sounds, lungs clear, decreased breath sounds. Cardiovascular normal exam, regular rate/rhythm, no gallop, no JVD, no murmur, no rub, normal peripheral pulses, pedal edema, venous stasis, erythematous limbs : family and patient state this is normal appearance x one year. Peripheral Pulses Pulses normal Yes Gastrointestinal normal bowel sounds, soft, no organomegaly, no guarding, no rebound Extremities non-tender (see above; neg Lila's), pedal edema Strength 4 Upper Ext (L), 4 Upper Ext (R), 4 Lower Ext (L), 4 Lower Ext (R) Neurologic alert, digital media coordinator II-XII nml as tested, normal exam, no motor/sensory deficits, oriented x 3 (speech clear; no tremor) Glascow Coma Scale Glascow Coma Scale Response Value EYE response: 4 Spontaneously 4 MOTOR response: 6 OBEYS 6 VERBAL response: 5 Oriented & Converses 5 Total 15 Skin intact (see above for BLE), warm/dry, pallor Lymphatic no adenopathy Medical Decision Making LABS/Meds/Orders Pt receiving controlled substance in ED? No Results/Orders Laboratory Tests 02/19/17 1240: Lactic Acid 0.8 02/19/17 1240: Creatine Kinase 56, CK-MB (CK-2) Rel Index 1.4, CK and CKMB Interp 0.8, Troponin I 0.04 02/19/17 1240: Sodium 140, Potassium 4.2, Chloride 99, Carbon Dioxide 40 H, BUN 79 H, Creatinine 1.8 H, Estimated Creat Clear 53, Estimated GFR (MDRD) 38, Glucose 207 H, Calcium 9.1, Total Bilirubin 0.3, AST 17, ALT 17, Alkaline Phosphatase 68, Total Protein 7.9, Albumin 2.6 L, Globulin 5.3 H, Albumin/Globulin Ratio 0.5 L, WBC 6.3, RBC 4.16 L, Hgb 9.7 L, Hct 33.1 L, MCV 79.6 L, RDW 16.3, Plt Count 234, MPV 8.0, Gran % 82.1 H, Gran # 5.2, Lymphocytes % 7.8 L, Monocytes % 7.3, Eosinophils % 2.2, Basophils % 0.5, Lymphocytes # 0.5 L, Monocytes # 0.5, Eosinophils # 0.1, Basophils # 0.0, PUBS MCHC 29.4 L, MCH 23.4 L Current Medication Orders Sig/Malorie Start time Last Medication Dose Route Stop Time Status Admin Sodium Chloride 10 ML PRN PRN 02/19 1215 AC IV 02/20 120 Sodium Chloride 10 ML PRN PRN 02/19 121 AC IV 02/20 1207 Orders Procedure Date/time Status ELECTROCARDIOGRAM REQUEST 02/19 1238 Active CARDIAC ENZYMES 02/19 1238 Complete CHEST-PORTABLE 02/19 1207 Active IV SALINE LOCK 02/19 1207 Active OXYGEN PER NURSE 02/19 1207 Active CULTURE, BLOOD 02/19 1207 Active LACTIC ACID 02/19 1207 Complete CBC WITH AUTO DIFF 02/19 1207 Complete CHEM 12 PROFILE 02/19 1207 Complete 12 LEAD EKG-BESSON (INITIAL) 02/19 UNK Active CM/EKG CM/EKG EKG rate, NSR, rhythm, no evid. of ischemic chgs, no ectopy, normal QRS, normal WI, normal EKG (NSR 77) XRAY/CT/US XRAY/CT/US XRAY chest XR interpretation by reviewed by me Xray Results abnormal, mild congestion, essentially unchanged from 01/27/17 had patchy infiltrate on R at that time; has CM. Consult MD Physician Consult Consult/PCP Dr. Flora campo f/u on elevated BUN in this pt with CRF. Pt stable at d/c Time Called 1352 Reason Pt. Condition Comments Dr. Flower Departure Departure Time of Disposition 1356 Disposition DC Home or Self Care(routine) Clinical Impression Primary Impression: SOB (shortness of breath) Secondary Impressions: CRF (chronic renal failure) Condition STABLE Referrals Mundo VALDES,Ronny Miller (Family) Patient Instructions DI for Shortness of Breath Additional Instructions Continue all current medications; see Dr. Flower for follow up on elevated BUN and history of CRF. Discharge Counseling Counseled pt/family regarding diagnosis, test results, medications/RX, home care, follow up needs ED Critical Care Critical Care No
--- NOTE | 2017-02-19 12:19 | Emergency Room Report ---
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 N Clinical Suspician of Infection? N Mental Status: 1 - Regular (Normal Baseline) Sepsis Risk:Low Sepsis Risk Have you (or family members/close friends) recently traveled outside the [place]? N If Yes, where/when: Have you had exposure to infectious disease within the past month? N TB? Other? Specify: SOB x several weeks; is on oxygen at [place]. No fever. Has chronic venous stasis, diabetic ulcers of legs, chronic edema, no new symptoms from that standpoint. No sputum. Hx CHF. NH reported wheezing; EMS reported good sats, no wheezing. Arrives w/o wheezing. No chest pain. ALLERGIES Coded Allergies: sulfamethoxazole (From BACTRIM) (01/05/17) trimethoprim (From BACTRIM) (01/05/17) Home Medications Reported Medications ROPINIROLE HCL (Ropinirole) 2 MG PO QHS Aspirin (Aspirin EC 81MG Tab) 81 MG PO DAILY Carvedilol (Carvedilol 25MG) 25 MG PO BID Ferrous Sulfate (Ferrous Sulfate 325MG) 325 MG PO QPM HYDROCODONE/ACETAMINOPHEN ([place] 10-325 Tablet) 1 TAB PO Q6PRN PRN PAIN Docusate Sodium 250 MG PO DAILY Acetaminophen (Pain Relief) 1,000 MG PO Q6HP PRN PAIN/FEVER Bisacodyl (Bisacodyl Supp) 10 MG [place] DAILYP PRN CONSTIPATION Lactulose (Lactulose) 30 ML PO DAILYP PRN CONSTIPATION Eplerenone (Inspra) 12.5 MG PO DAILY GUAIFENESIN/DEXTROMETHORPHAN (Robafen-Dm Syrup) 5 ML PO QHS Pregabalin (Lyrica) 50 MG PO TID Atorvastatin Calcium (Atorvastatin) 80 MG PO QHS Loratadine (Loratadine 10MG Tablet) 10 MG PO DAILY MULTIVITAMIN (Multivitamins) 1 SGL PO DAILY Ranitidine Hcl (Zantac) 150 MG PO BID Senna Pod (Senna Laxative) 2 TAB PO BID CHOLECALCIFEROL (VITAMIN D3) (Vitamin D3) 2,000 IUNITS PO DAILY Lorazepam (Ativan) 0.5 MG PO QHS Insulin Detemir (Levemir 10ML VIAL) 45 UNITS SC QHS Insulin Aspart, Recombinant (Novolog Flexpen) 30 UNITS SC DAILY History Medical History General CAD? No Angina: No CT: Yes Hypertension? Yes Hyperlipidemia? Yes CHF? Yes DVT? No PE? No COPD? Yes Asthma? No Anemia? Yes GERD? Yes Gastric ulcers? No GI Bleed? No Hernia? No Thyroid Problems? No Hypothyroidism? No CVA? No Seizures? No Diabetes? 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 Yes End Stage Renal Disease? No UTI? Yes Stones? No BPH? No GB Disease: No Nephritic Syndrome? No Asplenia? No Hepatitis? No Sickle Cell Disease? No Arthritis? Yes Migraines? Yes Cataracts? No Glaucoma? No MRSA? No HIV? No TB? No Anxiety? No Depression? No Cancer? No More? Yes Additional hx: RHEUMATOID ARTHRITIS OSTEOARTHRITIS Immunization Hx DT/Tetanus Unknown Flu 2014-16FSN Pneumonia Refuses Surgical Hx Previous Surgery?Y STENTS X2 DEFIBRILLATOR PORT PLACED Family History Family Hx Diabetes Yes CAD Yes Hypertension Yes Hyperlipidemia Yes Cancer Yes TB No Social History Smoking Hx Smoker: Never Smoker Tobacco: No Packs/day N/A Alcohol Alcohol: No Review of Systems All Other Systems Reviewed and Negative Respiratory see HPI (reports hx COPD and CHF) Skin see HPI Physical Exam Vital Signs Vital Signs Date Time Temp Pulse Resp B/P Pulse O2 O2 Flow FiO2 Ox Delivery Rate 02/19 1315 77 22 154/77 97 3 02/19 1221 96 02/19 1200 98.5 79 22 143/65 96 3 General Appearance normal appearance, WD/WN, no apparent distress (on oxygen) Eye Exam - bilateral eye normal exam, bilateral eye PERRL, bilateral eye EOMI Neck normal inspection, non-tender, supple, full range of motion Respiratory Status Yes: trachea midline, chest symmetrical, non tender chest. No: respiratory distress, tender on palpation, use of accessory muscles, pain on inspiration, pain on expiration, productive cough, non productive cough. Lung Sounds bilateral: normal breath sounds, lungs clear, decreased breath sounds. Cardiovascular normal exam, regular rate/rhythm, no gallop, no JVD, no murmur, no rub, normal peripheral pulses, pedal edema, venous stasis, erythematous limbs : family and patient state this is normal appearance x one year. Peripheral Pulses Pulses normal Yes Gastrointestinal normal bowel sounds, soft, no organomegaly, no guarding, no rebound Extremities non-tender (see above; neg Lila's), pedal edema Strength 4 Upper Ext (L), 4 Upper Ext (R), 4 Lower Ext (L), 4 Lower Ext (R) Neurologic alert, maintenance porter II-XII nml as tested, normal exam, no motor/sensory deficits, oriented x 3 (speech clear; no tremor) Glascow Coma Scale Glascow Coma Scale Response Value EYE response: 4 Spontaneously 4 MOTOR response: 6 OBEYS 6 VERBAL response: 5 Oriented & Converses 5 Total 15 Skin intact (see above for BLE), warm/dry, pallor Lymphatic no adenopathy Medical Decision Making LABS/Meds/Orders Pt receiving controlled substance in ED? No Results/Orders Laboratory Tests 02/19/17 1240: Lactic Acid 0.8 02/19/17 1240: Creatine Kinase 56, CK-MB (CK-2) Rel Index 1.4, CK and CKMB Interp 0.8, Troponin I 0.04 02/19/17 1240: Sodium 140, Potassium 4.2, Chloride 99, Carbon Dioxide 40 H, BUN 79 H, Creatinine 1.8 H, Estimated Creat Clear 53, Estimated GFR (MDRD) 38, Glucose 207 H, Calcium 9.1, Total Bilirubin 0.3, AST 17, ALT 17, Alkaline Phosphatase 68, Total Protein 7.9, Albumin 2.6 L, Globulin 5.3 H, Albumin/Globulin Ratio 0.5 L, WBC 6.3, RBC 4.16 L, Hgb 9.7 L, Hct 33.1 L, MCV 79.6 L, RDW 16.3, Plt Count 234, MPV 8.0, Gran % 82.1 H, Gran # 5.2, Lymphocytes % 7.8 L, Monocytes % 7.3, Eosinophils % 2.2, Basophils % 0.5, Lymphocytes # 0.5 L, Monocytes # 0.5, Eosinophils # 0.1, Basophils # 0.0, PUBS MCHC 29.4 L, MCH 23.4 L Current Medication Orders Sig/Malorie Start time Last Medication Dose Route Stop Time Status Admin Sodium Chloride 10 ML PRN PRN 02/19 1215 AC IV 02/20 120 Sodium Chloride 10 ML PRN PRN 02/19 121 AC IV 02/20 1207 Orders Procedure Date/time Status ELECTROCARDIOGRAM REQUEST 02/19 1238 Active CARDIAC ENZYMES 02/19 1238 Complete CHEST-PORTABLE 02/19 1207 Active IV SALINE LOCK 02/19 1207 Active OXYGEN PER NURSE 02/19 1207 Active CULTURE, BLOOD 02/19 1207 Active LACTIC ACID 02/19 1207 Complete CBC WITH AUTO DIFF 02/19 1207 Complete CHEM 12 PROFILE 02/19 1207 Complete 12 LEAD EKG-BESSON (INITIAL) 02/19 UNK Active CM/EKG CM/EKG EKG rate, NSR, rhythm, no evid. of ischemic chgs, no ectopy, normal QRS, normal NH, normal EKG (NSR 77) XRAY/CT/US XRAY/CT/US XRAY chest XR interpretation by reviewed by me Xray Results abnormal, mild congestion, essentially unchanged from 01/27/17 had patchy infiltrate on R at that time; has CM. Consult MD Physician Consult Consult/PCP Dr. Flora campo f/u on elevated BUN in this pt with CRF. Pt stable at d/c Time Called 1352 Reason Pt. Condition Comments Dr. Flower Departure Departure Time of Disposition 1356 Disposition DC Home or Self Care(routine) Clinical Impression Primary Impression: SOB (shortness of breath) Secondary Impressions: CRF (chronic renal failure) Condition STABLE Referrals Mundo VALDES,Ronny Miller (Family) Patient Instructions DI for Shortness of Breath Additional Instructions Continue all current medications; see Dr. Flower for follow up on elevated BUN and history of CRF. Discharge Counseling Counseled pt/family regarding diagnosis, test results, medications/RX, home care, follow up needs ED Critical Care Critical Care No
--- OUTSIDE RECORDS SUMMARY | 2017-02-19 12:19 | External Medical Summary Rpt | Continuity of Care Document ---
Author Author Organization Address Unknown Phone Unavailable Care Team Providers Care City Plant Supervisor Name Role Phone , Unavailable Unavailable EMS Current Medications Section EMS Allergies and Adverse Reactions EMS Past Medical History Medications Administered Section EMS Procedures Performed EMS Vital Signs EMS Patient Care Report Narrative Ec 2 dispatched to [facility] for 66 yoa male chief complaint shortness of breath. Scene patient located in bed at facility, received patient care report from nursing staff. Nursing Staff stated " patient was prescribed lasik by qual research manager two weeks ago but has taken all medicine. unable to contact qual research manager for refill at this time." Primary Assessment revealed demisted lung sounds, chest pain right upper rib cage, difficulty breath. Patient pain was 6 out of 10, with labored breathing. Patient was on O2 2 lpm NC. Patient was moved from bed to stretcher EMS x2 and Nursing staff x2 using draw sheet method. Patient moved to ambulance via stretcher. Secondary Assessment, vital signs, and 12 lead ekg completed enroute to [facility]. Vitals signs within normal range for patient, and 12 lead was sinus rhythm computer interpretation. Patient and vital signs monitored through out transport. B/P trending down during transport and pain remained same. patient on O2 through out transport at 3 lpm NC. Destination patient moved to ER from ambulance via stretcher. Patient moved from stretcher to ER bed EMS x2 and Nursing Staff x1 using draw sheet method. Patient care report given to nursing staff and care transferred without incident. EC 2 returned to service. All times are approximate.
--- OUTSIDE RECORDS SUMMARY | 2017-02-19 12:19 | External Medical Summary Rpt | Continuity of Care Document ---
Author Author Organization Address Unknown Phone Unavailable Care Team Providers Care Materials Tech Name Role Phone , Unavailable Unavailable EMS Current Medications Section EMS Allergies and Adverse Reactions EMS Past Medical History Medications Administered Section EMS Procedures Performed EMS Vital Signs EMS Patient Care Report Narrative EC 2 RESPONDED TO [facility] IN REFERENCE TO THE TRANSFER OF A 66 YEAR OLD MALE FROM THE ER BACK TO HIS RESIDENCE AT [facility] PT WAS BROUGHT IN EARLIER THIS DATE IN REFERENCE TO LOW O2 SAT AND DIFFICULTY BREATHING. PT WAS EXPERIENCING SOME CHEST PAIN AT THAT TIME. UPON ARRIVAL PT WAS FOUND SEMI FOWLERS IN THE BED. PT DIDN'T APPEAR TO BE IN ANY STRESS AT THE TIME. NURSE STATED THAT THEY GAVE HIM SOME LASIX BECAUSE HE HAD SOME FLUID BUILDING UP ON HIS HEART AND THAT HE WAS BACK TO HIS NORMAL NOW. PT DID NOT COMPLAIN OF ANY PAIN. PT WAS BED CONFINED HE COULD NOT SIT UP IN A WHEELCHAIR DURING TRANSPORT, COULD NOT GET UP WITHOUT ASSISTANCE AND IS UNABLE TO AMBULATE. PT ALSO REQUIRED OXYGEN ADMINISTRATION DURING TRANSPORT. VITALS LISTED PREVIOUSLY IN REPORT. CARE WAS TRANSFERRED TO NURSE DRISS TAVARES AT [facility]
--- OUTSIDE RECORDS SUMMARY | 2017-02-19 12:19 | External Medical Summary Rpt | Continuity of Care Document ---
Author Author Organization Address Unknown Phone Unavailable Care Team Providers Care Legal Biller Name Role Phone , Unavailable Unavailable EMS Current Medications Section EMS Allergies and Adverse Reactions EMS Past Medical History Medications Administered Section EMS Procedures Performed EMS Vital Signs EMS Patient Care Report Narrative EC 2 RESPONDED TO [facility] IN REFERENCE TO THE TRANSFER OF A 66 YEAR OLD MALE FROM THE ER BACK TO HIS RESIDENCE AT [facility]. PT WAS BROUGHT IN EARLIER THIS DATE [...] WAS TRANSFERRED TO NURSE DRISS TAVARES AT [facility]
--- OUTSIDE RECORDS SUMMARY | 2017-02-19 12:19 | External Medical Summary Rpt | Continuity of Care Document ---
Author Author Organization Address Unknown Phone Unavailable Care Team Providers Care Community Engagement Leader Name Role Phone , Unavailable Unavailable EMS Current Medications Section EMS Allergies and Adverse Reactions EMS Past Medical History Medications Administered Section EMS Procedures Performed EMS Vital Signs EMS Patient Care Report Narrative EC2 dispatched to [facility] for a 66 YOM with c/c of resp difficulty. On arrival pt found supine in bed, AO x 3 with resp diff. Pt to cot via draw sheet. O2 admin via NC at 4 LPM. IV established in the left AC with a 20 ga saline lock. Pt given a duo neb. Vitals obtained and recorded (see vitals tab). ECG monitor shows a paced regular rhythm. Lung sounds are equal with wheezes in the uppers and diminished in the lowers. Blood glucose check shows 232 mg/DL. Post tx pt condition improved. At [facility] pt to bed via draw sheet. Pt care and report was transferred to RN.
--- OUTSIDE RECORDS SUMMARY | 2017-02-19 12:19 | External Medical Summary Rpt | Continuity of Care Document ---
Author Author Organization Address Unknown Phone Unavailable Care Team Providers Care Program Evaluator Name Role Phone , Unavailable Unavailable EMS Current Medications Section EMS Allergies and Adverse Reactions EMS Past Medical History Medications Administered Section EMS Procedures Performed EMS Vital Signs EMS Patient Care Report Narrative EC2 dispatched to [facility] for a 66 YOM with c/c of [...] mg/DL. Post tx pt condition improved. At [facility] pt to bed via draw sheet. Pt care and report was transferred to RN.
--- OUTSIDE RECORDS SUMMARY | 2017-02-19 12:19 | External Medical Summary Rpt | Continuity of Care Document ---
Author Author Organization Address Unknown Phone Unavailable Care Team Providers Care Enrollment Counselor Name Role Phone , Unavailable Unavailable EMS Current Medications Section EMS Allergies and Adverse Reactions EMS Past Medical History Medications Administered Section EMS Procedures Performed EMS Vital Signs EMS Patient Care Report Narrative EC2 dispatched to [facility] for a 66 YOM with c/c of [...] mg/DL. Post tx pt condition improved. At [facility] pt to bed via draw sheet. Pt care and report was transferred to RN.
--- OUTSIDE RECORDS SUMMARY | 2017-02-19 12:19 | External Medical Summary Rpt | Continuity of Care Document ---
Author Author Organization Address Unknown Phone Unavailable Care Team Providers Care Improvement Spec Name Role Phone , Unavailable Unavailable EMS Current Medications Section EMS Allergies and Adverse Reactions EMS Past Medical History Medications Administered Section EMS Procedures Performed EMS Vital Signs EMS Patient Care Report Narrative EC 2 RESPONDED TO [facility] IN REFERENCE TO THE TRANSFER OF A 66 YEAR OLD MALE FROM THE ER BACK TO HIS RESIDENCE AT [facility]. PT WAS BROUGHT IN EARLIER THIS [...] WAS TRANSFERRED TO NURSE DRISS TAVARES AT [facility]
--- OUTSIDE RECORDS SUMMARY | 2017-02-19 12:19 | External Medical Summary Rpt | Continuity of Care Document ---
Author Author Organization Address Unknown Phone Unavailable Care Team Providers Care Oil Well Drilling Manager Name Role Phone , Unavailable Unavailable EMS Current Medications Section EMS Allergies and Adverse Reactions EMS Past Medical History Medications Administered Section EMS Procedures Performed EMS Vital Signs EMS Patient Care Report Narrative EC 2 RESPONDED TO [facility] IN REFERENCE TO THE TRANSFER OF A 66 YEAR OLD MALE FROM THE ER BACK TO HIS RESIDENCE AT [facility]. PT WAS BROUGHT IN EARLIER THIS DATE [...] WAS TRANSFERRED TO NURSE DRISS TAVARES AT [facility]
--- OUTSIDE RECORDS SUMMARY | 2017-02-19 12:19 | External Medical Summary Rpt | Continuity of Care Document ---
Author Author Organization Address Unknown Phone Unavailable Care Team Providers Care Trainer Name Role Phone , Unavailable Unavailable EMS Current Medications Section EMS Allergies and Adverse Reactions EMS Past Medical History Medications Administered Section EMS Procedures Performed EMS Vital Signs EMS Patient Care Report Narrative EC 2 RESPONDED TO [facility] IN REFERENCE TO THE TRANSFER OF A 66 YEAR OLD MALE FROM THE ER BACK TO HIS RESIDENCE AT [facility]. PT WAS BROUGHT IN EARLIER [...] WAS TRANSFERRED TO NURSE DRISS TAVARES AT [facility]
--- OUTSIDE RECORDS SUMMARY | 2017-02-19 12:19 | External Medical Summary Rpt | Continuity of Care Document ---
Author Author Organization Address Unknown Phone Unavailable Care Team Providers Care Communication Specialist Name Role Phone , Unavailable Unavailable EMS Current Medications Section EMS Allergies and Adverse Reactions EMS Past Medical History Medications Administered Section EMS Procedures Performed EMS Vital Signs EMS Patient Care Report Narrative Ec 2 dispatched to [facility] for 66 yoa male chief complaint shortness of breath. Scene patient located in bed at facility, received patient care report from nursing staff. Nursing Staff stated " patient was prescribed lasik by customer account coordinator two weeks ago but has taken all medicine. unable to contact customer account coordinator for refill at this time." Primary Assessment [...] and 12 lead ekg completed enroute to [facility]. Vitals signs within normal range for patient, [...]
--- OUTSIDE RECORDS SUMMARY | 2017-02-19 12:19 | External Medical Summary Rpt | Continuity of Care Document ---
Author Author Organization Address Unknown Phone Unavailable Care Team Providers Care Shopper Name Role Phone , Unavailable Unavailable EMS Current Medications Section EMS Allergies and Adverse Reactions EMS Past Medical History Medications Administered Section EMS Procedures Performed EMS Vital Signs EMS Patient Care Report Narrative Ec 2 dispatched to [facility] for 66 yoa male chief complaint shortness of breath. Scene patient located in bed at facility, received patient care report from nursing staff. Nursing Staff stated " patient was prescribed lasik by vp human resources two weeks ago but has taken all medicine. unable to contact vp human resources for refill at this time." Primary Assessment [...] and 12 lead ekg completed enroute to [facility]. Vitals signs within normal range for patient, [...]
--- OUTSIDE RECORDS SUMMARY | 2017-02-19 12:19 | External Medical Summary Rpt | Continuity of Care Document ---
Author Author Organization Address Unknown Phone Unavailable Care Team Providers Care Bufferer Name Role Phone , Unavailable Unavailable EMS Current Medications Section EMS Allergies and Adverse Reactions EMS Past Medical History Medications Administered Section EMS Procedures Performed EMS Vital Signs EMS Patient Care Report Narrative EC [address] [facility] IN REFERENCE TO THE TRANSFER OF A 66 YEAR OLD MALE FROM THE ER BACK TO HIS RESIDENCE AT [facility]. PT WAS BROUGHT IN EARLIER THIS DATE [...] WAS TRANSFERRED TO NURSE DRISS TAVARES AT [facility]
--- OUTSIDE RECORDS SUMMARY | 2017-02-19 12:19 | External Medical Summary Rpt | Continuity of Care Document ---
Author Author Organization Address Unknown Phone Unavailable Care Team Providers Care Inkjet Operator Name Role Phone , Unavailable Unavailable EMS Current Medications Section EMS Allergies and Adverse Reactions EMS Past Medical History Medications Administered Section EMS Procedures Performed EMS Vital Signs EMS Patient Care Report Narrative Ec 2 dispatched to [facility] for 66 yoa male chief complaint shortness of breath. Scene patient located in bed at facility, received patient care report from nursing staff. Nursing Staff stated " patient was prescribed lasik by sales and marketing agent two weeks ago but has taken all medicine. unable to contact sales and marketing agent for refill at this time." Primary Assessment [...] and 12 lead ekg completed enroute to [facility]. Vitals signs within normal range for [...]
--- OUTSIDE RECORDS SUMMARY | 2017-02-19 12:19 | External Medical Summary Rpt | Continuity of Care Document ---
Author Author Organization Address Unknown Phone Unavailable Care Team Providers Care Rustic Fence Builder Name Role Phone , Unavailable Unavailable EMS Current Medications Section EMS Allergies and Adverse Reactions EMS Past Medical History Medications Administered Section EMS Procedures Performed EMS Vital Signs EMS Patient Care Report Narrative EC2 dispatched to [facility] for a 66 YOM with c/c [...] mg/DL. Post tx pt condition improved. At [facility] pt to bed via draw sheet. Pt care and report was transferred to RN.
--- OUTSIDE RECORDS SUMMARY | 2017-02-19 12:20 | External Medical Summary Rpt | Continuity of Care Document ---
Author Author Organization Address Unknown Phone Unavailable Care Team Providers Care Pretzel Twisting Machine Operator Name Role Phone , Unavailable Unavailable EMS Current Medications Section EMS Allergies and Adverse Reactions EMS Past Medical History Medications Administered Section EMS Procedures Performed EMS Vital Signs EMS Patient Care Report Narrative EC 2 RESPONDED TO [facility] IN REFERENCE TO THE TRANSFER OF A 66 YEAR OLD MALE FROM THE ER BACK TO HIS RESIDENCE AT [facility]. PT WAS BROUGHT IN EARLIER THIS [...] WAS TRANSFERRED TO NURSE DRISS TAVARES AT [facility]
--- OUTSIDE RECORDS SUMMARY | 2017-02-19 12:20 | External Medical Summary Rpt | Continuity of Care Document ---
Author Author Organization Address Unknown Phone Unavailable Care Team Providers Care School Treasurer Name Role Phone , Unavailable Unavailable EMS Current Medications Section EMS Allergies and Adverse Reactions EMS Past Medical History Medications Administered Section EMS Procedures Performed EMS Vital Signs EMS Patient Care Report Narrative EC 2 RESPONDED TO [facility] IN REFERENCE TO THE TRANSFER OF A 66 YEAR OLD MALE FROM THE ER BACK TO HIS RESIDENCE AT [facility]. PT WAS BROUGHT IN EARLIER THIS DATE [...] WAS TRANSFERRED TO NURSE DRISS TAVARES AT [facility]
--- OUTSIDE RECORDS SUMMARY | 2017-02-19 12:29 | External Medical Summary Rpt | CCD ---
Author Author , NOREEN SORTO Address Unknown Phone [email or web address] [email or web address] Team Providers Care Station Cashier Name Role Phone [facility], Unavailable Unavailable [facility], Unavailable Unavailable [facility] Unavailable [facility] INC, [facility], Unavailable Unavailable [facility] # Unavailable Unavailable [id number], [facility] # 4847 [facility] [id number] # Unavailable Unavailable 7174, [facility] [id number] # [id number] [facility], Unavailable Unavailable [facility] Unavailable Unavailable [id number] # [id number], [facility] [id number] # [id number] Purpose Continuity of Care Document - 05-24-2009 through 2016 Medications Na ND Rx Da Fi Fi Am Da Di Ph RX Ph St me C No te ll ll ou ys ag ar # ys at rm s nt no ma ic us Or Da si cy ia de te s n re d BD 08 12 11 9 10 30 KM 88 PA Ac 29 -0 -1 00 AR 04 RS ti UL 03 6- 5- .0 T 29 ON ve TR 20 20 20 00 PH 9 S A- 10 12 13 AR JE FI 9 MA RE NE CY MY # C PE N 48 ND 47 L 8M MX 31 G AM 00 04 10 4 60 30 KM 68 PA Ac IT 60 -1 -0 0. AR 39 RS ti RI 32 1- 1- 00 T 86 ON ve PT 21 20 20 0 PH 7 S YL 42 13 13 AR JE IN 1 MA RE E CY MY HC # C L 50 48 47 MG TA B AM 00 04 08 4 60 30 KM 68 PA Ac IT 60 -1 -2 0. AR 39 RS ti RI 32 1- 3- 00 T 86 ON ve PT 21 20 20 0 PH 7 S YL 42 13 13 AR JE IN 1 MA RE E CY MY HC # C L 50 48 47 MG TA B AM 00 04 07 4 60 30 KM 68 PA Ac IT 60 -1 -2 0. AR 39 RS ti RI 32 1- 2- 00 T 86 ON ve PT 21 20 20 0 PH 7 S YL 42 13 13 AR JE IN 1 MA RE E CY MY HC # C L 50 48 47 MG TA B RO 43 02 06 4 30 30 KM 68 PA Ac PI 54 -0 -2 0. AR 38 RS ti NI 70 6- 8- 00 T 07 ON ve RO 27 20 20 0 PH 7 S LE 31 13 13 AR JE 0 MA RE HC CY MY L # C 4 MG 48 47 TA BL ET ME 00 02 06 4 60 30 KM 68 PA Ac TO 37 -0 -2 0. AR 38 RS ti OH 80 6- 8- 00 T 07 ON ve OL 03 20 20 0 PH 5 S OL 21 13 13 AR JE 0 MA RE TA CY MY RT # C RA TE 48 47 50 MG TA B NO 00 09 06 5 15 30 KM 68 PA Ac VO 16 -2 -2 0. AR 38 RS ti LO 93 0- 8- 00 T 08 ON ve G 69 20 20 0 PH 1 S AR 61 12 13 AR JE X 9 MA RE 70 CY MY -3 # C 0 FL 48 EX 47 PE N SY RN AM 00 04 06 4 60 30 KM 68 PA Ac IT 60 -1 -2 0. AR 39 RS ti RI 32 1- 5- 00 T 86 ON ve PT 21 20 20 0 PH 7 S YL 42 13 13 AR JE IN 1 MA RE E CY MY HC # C L 50 48 47 MG TA B BD 08 12 06 9 10 30 KM 88 PA Ac 29 -0 -1 00 AR 04 RS ti UL 03 6- 0- .0 T 29 ON ve TR 20 20 20 00 PH 9 S A- 10 12 13 AR JE FI 9 MA RE NE CY MY # C PE N 48 ND 47 L 8M MX 31 G RO 23 02 05 4 30 30 KM 68 PA Ac PI 15 -0 -3 0. AR 38 RS ti NI 50 6- 1- 00 T 07 ON ve RO 12 20 20 0 PH 7 S LE 60 13 13 AR JE 1 MA RE HC CY MY L # C 4 MG 48 47 TA BL ET ME 00 02 05 4 60 30 KM 68 PA Ac TO 37 -0 -3 0. AR 38 RS ti OH 80 6- 1- 00 T 07 ON ve OL 03 20 20 0 PH 5 S OL 21 13 13 AR JE 0 MA RE TA CY MY RT # C RA TE 48 47 50 MG TA B NO 00 09 05 5 15 30 KM 68 PA Ac VO 16 -2 -3 0. AR 38 RS ti LO 93 0- 1- 00 T 08 ON ve G 69 20 20 0 PH 1 S AR 61 12 13 AR JE X 9 MA RE 70 CY MY -3 # C 0 FL 48 EX 47 PE N SY RN AM 00 04 05 4 60 30 KM 68 PA Ac IT 60 -1 -2 0. AR 39 RS ti RI 32 1- 0- 00 T 86 ON ve PT 21 20 20 0 PH 7 S YL 42 13 13 AR JE IN 1 MA RE E CY MY HC # C L 50 48 47 MG TA B RO 23 02 05 4 30 30 KM 68 PA Ac PI 15 -0 -0 0. AR 38 RS ti NI 50 6- 2- 00 T 07 ON ve RO 12 20 20 0 PH 7 S LE 60 13 13 AR JE 1 MA RE HC CY MY L # C 4 MG 48 47 TA BL ET 14 11 05 3 90 30 KM 68 PA Ac 55 -1 -0 0. AR 38 RS ti 00 4- 2- 00 T 20 ON ve 51 20 20 0 PH 5 S 20 12 13 AR JE 4 MA RE CY MY # C 48 47 ME 00 02 05 4 60 30 KM 68 PA Ac TO 37 -0 -0 0. AR 38 RS ti OH 80 6- 2- 00 T 07 ON ve OL 03 20 20 0 PH 5 S OL 21 13 13 AR JE 0 MA RE TA CY MY RT # C RA TE 48 47 50 MG TA B BD 08 12 05 9 10 30 KM 88 PA Ac 29 -0 -0 00 AR 04 RS ti UL 03 6- 2- .0 T 29 ON ve TR 20 20 20 00 PH 9 S A- 10 12 13 AR JE FI 9 MA RE NE CY MY # C PE N 48 ND 47 L 8M MX 31 G NO 00 09 05 5 15 30 KM 68 PA Ac VO 16 -2 -0 0. AR 38 RS ti LO 93 0- 2- 00 T 08 ON ve G 69 20 20 0 PH 1 S AR 61 12 13 AR JE X 9 MA RE 70 CY MY -3 # C 0 FL 48 EX 47 PE N SY RN AM 00 04 04 4 60 30 KM 68 PA Ac IT 60 -1 -1 0. AR 39 RS ti RI 32 1- 5- 00 T 86 ON ve PT 21 20 20 0 PH 7 S YL 42 13 13 AR JE IN 1 MA RE E CY MY HC # C L 50 48 47 MG TA B ME 00 02 04 4 60 30 KM 68 PA Ac TO 37 -0 -0 0. AR 38 RS ti OH 80 6- 5- 00 T 07 ON ve OL 03 20 20 0 PH 5 S OL 21 13 13 AR JE 0 MA RE TA CY MY RT # C RA TE 48 47 50 MG TA B RO 23 02 04 4 30 30 KM 68 PA Ac PI 15 -0 -0 0. AR 38 RS ti NI 50 6- 5- 00 T 07 ON ve RO 12 20 20 0 PH 7 S LE 60 13 13 AR JE 1 MA RE HC CY MY L # C 4 MG 48 47 TA BL ET 14 11 04 3 90 30 KM 68 PA Ac 55 -1 -0 0. AR 38 RS ti 00 4- 5- 00 T 20 ON ve 51 20 20 0 PH 5 S 20 12 13 AR JE 4 MA RE CY MY # C 48 47 EN 64 02 04 11 30 30 KM 68 PA Ac AL 67 -1 -0 0. AR 38 RS ti AP 90 4- 5- 00 T 26 ON ve RI 92 20 20 0 PH 8 S L 60 13 13 AR JE MA 2 MA RE LE CY MY AT # C E 20 48 47 MG TA B NO 00 09 04 5 15 30 KM 68 PA Ac VO 16 -2 -0 0. AR 38 RS ti LO 93 0- 5- 00 T 08 ON ve G 69 20 20 0 PH 1 S AR 61 12 13 AR JE X 9 MA RE 70 CY MY -3 # C 0 FL 48 EX 47 PE N SY RN FU 00 03 04 1 30 30 KM 68 PA Ac RO 37 -0 -0 0. AR 38 RS ti SE 80 7- 5- 00 T 83 ON ve AR 21 20 20 0 PH 2 S DE 61 13 13 AR JE 0 MA RE 40 CY MY # C MG 48 TA 47 BL ET NO 00 09 03 5 15 30 KM 68 PA Ac VO 16 -2 -0 0. AR 38 RS ti LO 93 0- 8- 00 T 08 ON ve G 69 20 20 0 PH 1 S AR 61 12 13 AR JE X 9 MA RE 70 CY MY -3 # C 0 FL 48 EX 47 PE N SY RN 14 11 03 3 90 30 KM 68 PA Ac 55 -1 -0 0. AR 38 RS ti 00 4- 8- 00 T 20 ON ve 51 20 20 0 PH 5 S 20 12 13 AR JE 4 MA RE CY MY # C 48 47 RO 43 02 03 4 30 30 KM 68 PA Ac PI 54 -0 -0 0. AR 38 RS ti NI 70 6- 8- 00 T 07 ON ve RO 27 20 20 0 PH 7 S LE 31 13 13 AR JE 0 MA RE HC CY MY L # C 4 MG 48 47 TA BL ET EN 64 02 03 11 30 30 KM 68 PA Ac AL 67 -1 -0 0. AR 38 RS ti AP 90 4- 8- 00 T 26 ON ve RI 92 20 20 0 PH 8 S L 60 13 13 AR JE MA 2 MA RE LE CY MY AT # C E 20 48 47 MG TA B BD 08 12 03 9 10 30 KM 88 PA Ac 29 -0 -0 00 AR 04 RS ti UL 03 6- 8- .0 T 29 ON ve TR 20 20 20 00 PH 9 S A- 10 12 13 AR JE FI 9 MA RE NE CY MY # C PE N 48 ND 47 L 8M MX 31 G ME 00 02 03 4 60 30 KM 68 PA Ac TO 37 -0 -0 0. AR 38 RS ti OH 80 6- 8- 00 T 07 ON ve OL 03 20 20 0 PH 5 S OL 21 13 13 AR JE 0 MA RE TA CY MY RT # C RA TE 48 47 50 MG TA B FU 00 03 03 1 30 30 KM 68 PA Ac RO 37 -0 -0 0. AR 38 RS ti SE 80 7- 8- 00 T 83 ON ve AR 21 20 20 0 PH 2 S DE 61 13 13 AR JE 0 MA RE 40 CY MY # C MG 48 TA 47 BL ET RO 23 09 10 3 30 30 KM 69 PA Ac PI 15 -1 -3 .0 AR 26 RS ti NI 50 4- 1- 00 T 12 ON ve RO 12 20 20 PH 7 S LE 60 11 11 AR JE 1 MA RE HC CY MY L 71 C 4 74 MG # TA 71 BL 74 ET ME 57 01 10 6 60 30 KM 69 PA Ac TO 66 -0 -2 .0 AR 11 YN ti OH 40 4- 7- 00 T 00 E ve OL 47 20 20 PH 6 VA OL 75 11 11 AR UG 8 MA HN TA CY W RT 71 RA 74 TE # 50 71 74 MG TA B CR 00 09 10 6 30 30 KM 69 PA Ac ES 31 -0 -2 .0 AR 25 YN ti TO 00 1- 7- 00 T 46 E ve R 75 20 20 PH 4 VA 10 19 11 11 AR UG 0 MA HN MG CY W 71 TA 74 BL # ET 71 74 EN 64 09 10 3 60 30 KM 69 PA Ac AL 67 -1 -2 .0 AR 26 RS ti AP 90 4- 7- 00 T 12 ON ve RI 92 20 20 PH 6 S L 50 11 11 AR JE MA 2 MA RE LE CY MY AT 71 C E 74 10 # MG 71 74 TA B FU 00 09 10 3 30 30 KM 69 PA Ac RO 37 -1 -2 .0 AR 26 RS ti SE 80 4- 7- 00 T 12 ON ve AR 21 20 20 PH 8 S DE 61 11 11 AR JE 0 MA RE 40 CY MY 71 C MG 74 # TA BL 71 ET 74 OH 00 10 10 0 21 6 KM 69 PA Ac ED 60 -1 -2 .0 AR 27 RS ti NI 35 4- 2- 00 T 87 ON ve SO 33 20 20 PH 5 S NE 81 11 11 AR JE 5 MA RE 10 CY MY 71 C MG 74 # TA B 71 DO 74 SE PA CK MO 00 09 10 0 60 30 PA 20 DU Ac RP 40 -0 -0 .0 SA 97 RR ti HI 68 9- 7- 00 DE 75 ET ve NE 31 20 20 NA 6 T 50 11 11 LE CLARK 1 PH NA LF AR RD MA R ER CY 15 MG TA BL ET EN 60 09 10 0 90 30 PA 20 DU Ac DO 95 -0 -0 .0 SA 97 RR ti CE 10 9- 7- 00 DE 75 ET ve T 71 20 20 NA 7 T 10 27 11 11 LE -3 0 PH NA [address] MA R MG CY TA BL ET LY 00 09 10 1 90 30 PA 40 DU Ac RI 07 -0 -0 .0 SA 55 RR ti CA 11 9- 7- 00 DE 66 ET ve 01 20 20 NA 9 T 50 36 11 11 LE 8 PH NA MG AR RD MA R CA CY PS UL E TI 00 09 10 5 30 30 PA 61 DU Ac ZA 18 -1 -0 .0 SA 08 RR ti NI 54 9- 7- 00 DE 62 ET ve DI 40 20 20 NA 7 T NE 05 11 11 LE 1 PH NA HC AR RD L MA R 4 CY MG TA BL ET RO 23 09 10 3 30 30 KM 69 PA Ac PI 15 -1 -0 .0 AR 26 RS ti NI 50 4- 3- 00 T 12 ON ve RO 12 20 20 PH 7 S LE 60 11 11 AR JE 1 MA RE HC CY MY L 71 C 4 74 MG # TA 71 BL 74 ET ME 00 01 09 6 60 30 KM 69 PA Ac TO 09 -0 -2 .0 AR 11 YN ti OH 30 4- 8- 00 T 00 E ve OL 73 20 20 PH 6 VA OL 31 11 11 AR UG 0 MA HN TA CY W RT 71 RA 74 TE # 50 71 74 MG TA B NO 00 06 09 3 15 30 KM 69 JU Ac VO 16 -2 -[address] ti LO 93 8 00 T 61 IC ve G 69 20 20 PH 3 E AR 61 11 11 AR SA X 9 MA RA 70 CY H -3 71 M 0 74 FL # EX PE 71 N 74 SY RN CR 00 09 09 6 30 30 KM 69 PA Ac ES 31 -0 -2 .0 AR 25 YN ti TO 00 T 46 E ve R 75 20 20 PH 4 VA 10 19 11 11 AR UG 0 MA HN MG CY W 71 TA 74 BL # ET 71 74 EN 64 09 09 3 60 30 KM 69 PA Ac AL 67 -1 -2 .0 AR 26 RS ti AP 90 T 12 ON ve RI 92 20 20 PH 6 S L 50 11 11 AR JE MA 2 MA RE LE CY MY AT 71 C E 74 10 # MG 71 74 TA B FU 00 09 09 3 30 30 KM 69 PA Ac RO 37 -1 -2 .0 AR 26 RS ti SE 80 T 12 ON ve AR 21 20 20 PH 8 S DE 61 11 11 AR JE 0 MA RE 40 CY MY 71 C MG 74 # TA BL 71 ET 74 BD 08 12 09 5 10 30 KM 88 KI Ac 29 -3 -2 0. AR 11 NG ti UL 03 0- 6 00 T 73 ER ve TR 20 20 20 0 PH 4 Y A- 10 10 11 AR JE FI 9 MA NN NE CY IF 71 ER PE 74 B N # ND L 71 8M 74 MX 31 G EN 60 09 09 0 90 30 PA 20 DU Ac DO 95 -0 -0 .0 SA 97 RR ti CE 10 DE 35 ET ve T 71 20 20 NA 0 T 10 27 11 11 LE -3 0 PH NA [address] MA R MG CY TA BL ET MO 00 09 09 0 60 30 PA 20 DU Ac RP 40 -0 -0 .0 SA 97 RR ti HI 68 9- 9- 00 DE 35 ET ve NE 31 20 20 NA 1 T 50 11 11 LE CLARK 1 PH NA LF AR RD MA R ER CY 15 MG TA BL ET LY 00 09 09 1 90 30 PA 40 DU Ac RI 07 -0 -0 .0 SA 55 RR ti CA 11 9- 9 00 DE 66 ET ve 01 20 20 NA 9 T 50 36 11 11 LE 8 PH NA MG AR RD MA R CA CY PS UL E 00 09 09 0 30 30 KM 69 Ac 55 -0 -0 .0 AR 25 HB ti 50 6- 6- 00 T 62 Y ve 05 20 20 PH 2 AZAM 90 11 11 AR NE 5 MA S CY LA 71 UR 74 A # P 71 74 RO 23 09 09 0 30 30 KM 69 Ac PI 15 -0 -0 .0 AR 25 HB ti NI 50 6- 6- 00 T 62 Y ve RO 12 20 20 PH 8 AZAM LE 60 11 11 AR NE 1 MA S HC CY LA L 71 UR 4 74 A MG # P TA 71 BL 74 ET CR 00 09 09 6 30 30 KM 69 PA Ac ES 31 -0 -0 .0 AR 25 YN ti TO 00 1- 1- 00 T 46 E ve R 75 20 20 PH 4 VA 10 19 11 11 AR UG 0 MA HN MG CY W 71 TA 74 BL # ET 71 74 FU 00 01 08 6 30 30 KM 69 PA Ac RO 37 -0 -3 .0 AR 11 YN ti SE 80 4- 1- 00 T 00 E ve AR 21 20 20 PH 9 VA DE 61 11 11 AR UG 0 MA HN 40 CY W 71 MG 74 # TA BL 71 ET 74 ME 00 01 08 6 60 30 KM 69 PA Ac TO 09 -0 -3 .0 AR 11 YN ti OH 30 4- 0- 00 T 00 E ve OL 73 20 20 PH 6 VA OL 31 11 11 AR UG 0 MA HN TA CY W RT 71 RA 74 TE # 50 71 74 MG TA B EN 00 01 08 6 60 30 KM 69 PA Ac AL 09 -0 -3 .0 AR 11 YN ti AP 30 4- 0- 00 T 00 E ve RI 02 20 20 PH 8 VA L 81 11 11 AR UG MA 0 MA HN LE CY W AT 71 E 74 10 # MG 71 74 TA B NO 00 06 08 3 15 30 KM 69 JU Ac VO 16 -2 -[address] ti LO 93 1- 0- 00 T 61 IC ve G 69 20 20 PH 3 E AR 61 11 11 AR SA X 9 MA RA 70 CY H -3 71 M 0 74 FL # EX PE 71 N 74 SY RN MO 00 07 08 0 60 30 PA 20 LA Ac RP 40 -1 -1 .0 SA 96 RS ti HI 68 1- 0- 00 DE 88 ON ve NE 31 20 20 NA 7 50 11 11 LA CLARK 1 PH UR LF AR EN MA K ER CY 15 MG TA BL ET EN 60 07 08 0 90 30 PA 20 LA Ac DO 95 -1 -1 .0 SA 96 RS ti CE 10 1- 0- 00 DE 88 ON ve T 71 20 20 NA 8 10 27 11 11 LA -3 0 PH UR 25 AR EN MA K MG CY TA BL ET LY 00 07 08 1 90 30 PA 40 LA Ac RI 07 -1 -1 .0 SA 55 RS ti CA 11 1- 0- 00 DE 42 ON ve 01 20 20 NA 9 25 26 11 11 LA 8 PH UR MG AR EN MA K CA CY PS UL E TI 00 03 08 5 30 30 PA 61 LA Ac ZA 18 -0 -1 .0 SA 07 RS ti NI 54 8- 0- 00 DE 30 ON ve DI 40 20 20 NA 1 NE 01 11 11 LA 0 PH UR HC AR EN L MA K 4 CY MG TA BL ET BD 08 12 08 5 10 30 KM 88 KI Ac 29 -3 -0 0. AR 11 NG ti UL 03 0- 4- 00 T 73 ER ve TR 20 20 20 0 PH 4 Y A- 10 10 11 AR JE FI 9 MA NN NE CY IF 71 ER PE 74 B N # ND L 71 8M 74 MX 31 G FU 00 01 08 6 30 30 KM 69 PA Ac RO 37 -0 -0 .0 AR 11 YN ti SE 80 4- 3- 00 T 00 E ve AR 21 20 20 PH 9 VA DE 61 11 11 AR UG 0 MA HN 40 CY W 71 MG 74 # TA BL 71 ET 74 CR 00 01 08 6 30 30 KM 69 PA Ac ES 31 -0 -0 .0 AR 11 YN ti TO 00 4- 3- 00 T 01 E ve R 75 20 20 PH 0 VA 10 19 11 11 AR UG 0 MA HN MG CY W 71 TA 74 BL # ET 71 74 RO 23 06 08 2 30 30 KM 69 JU Ac PI 15 -0 -[address] ti NI 50 2- 3- 00 T 52 IC ve RO 12 20 20 PH 9 E LE 60 11 11 AR SA 1 MA RA HC CY H L 71 M 4 74 MG # TA 71 BL 74 ET ME 00 01 07 6 60 30 KM 69 PA Ac TO 09 -0 -2 .0 AR 11 YN ti OH 30 4- 2- 00 T 00 E ve OL 73 20 20 PH 6 VA OL 31 11 11 AR UG 0 MA HN TA CY W RT 71 RA 74 TE # 50 71 74 MG TA B EN 00 01 07 6 60 30 KM 69 PA Ac AL 09 -0 -2 .0 AR 11 YN ti AP 30 4- 2- 00 T 00 E ve RI 02 20 20 PH 8 VA L 81 11 11 AR UG MA 0 MA HN LE CY W AT 71 E 74 10 # MG 71 74 TA B GA 14 04 07 3 60 30 KM 69 JU Ac BA 55 -2 -[address] ti PE 00 6- 2- 00 T 54 IC ve NT 51 20 20 PH 2 E IN 20 11 11 AR SA 2 MA RA 30 CY H 0 71 M MG 74 # CA PS 71 UL 74 E FL 00 04 07 3 16 30 KM 69 JU Ac UT 05 -2 -[address] ti IC 43 9- 2- 00 T 70 IC ve 27 20 20 PH 2 E ON 09 11 11 AR SA E 9 MA RA OH CY H OP 71 M 74 50 # MC 71 G 74 SP RA Y NO 00 06 07 3 15 30 KM 69 JU Ac VO 16 -2 -[address] ti LO 93 1- 2- 00 T 61 IC ve G 69 20 20 PH 3 E AR 61 11 11 AR SA X 9 MA RA 70 CY H -3 71 M 0 74 FL # EX PE 71 N 74 SY RN EN 60 07 07 0 90 30 PA 20 LA Ac DO 95 -1 -1 .0 SA 96 RS ti CE 10 1- - 00 DE 46 ON ve T 71 20 20 NA 0 10 27 11 11 LA -3 0 PH UR 25 AR EN MA K MG CY TA BL ET MO 00 07 07 0 60 30 PA 20 LA Ac RP 40 -1 -1 .0 SA 96 RS ti HI 68 1- 1- 00 DE 46 ON ve NE 31 20 20 NA 1 50 11 11 LA CLARK 1 PH UR LF AR EN MA K ER CY 15 MG TA BL ET LY 00 07 07 1 69 30 PA 40 LA Ac RI 07 -1 -1 .0 SA 55 RS ti CA 11 1- 1- 00 DE 42 ON ve 01 20 20 NA 9 25 26 11 11 LA 8 PH UR MG AR EN MA K CA CY PS UL E TI 00 03 07 5 30 30 PA 61 LA Ac ZA 18 -0 -1 .0 SA 07 RS ti NI 54 8- 1- 00 DE 30 ON ve DI 40 20 20 NA 1 NE 01 11 11 LA 0 PH UR HC AR EN L MA K 4 CY MG TA BL ET FU 00 01 06 6 30 30 KM 69 PA Ac RO 37 -0 -3 .0 AR 11 YN ti SE 80 4- 0- 00 T 00 E ve AR 21 20 20 PH 9 VA DE 61 11 11 AR UG 0 MA HN 40 CY W 71 MG 74 # TA BL 71 ET 74 CR 00 01 06 6 30 30 KM 69 PA Ac ES 31 -0 -3 .0 AR 11 YN ti TO 00 4- 0- 00 T 01 E ve R 75 20 20 PH 0 VA 10 19 11 11 AR UG 0 MA HN MG CY W 71 TA 74 BL # ET 71 74 RO 23 06 06 2 30 30 KM 69 JU Ac PI 15 -0 -[address] ti NI 50 2- 0- 00 T 52 IC ve RO 12 20 20 PH 9 E LE 60 11 11 AR SA 1 MA RA HC CY H L 71 M 4 74 MG # TA 71 BL 74 ET FL 00 04 06 3 16 30 KM 69 JU Ac UT 05 -2 -[address] ti IC 43 9- 2- 00 T 70 IC ve 27 20 20 PH 2 E ON 09 11 11 AR SA E 9 MA RA OH CY H OP 71 M 74 50 # MC 71 G 74 SP RA Y NO 00 06 06 3 15 30 KM 69 JU Ac VO 16 -2 -[address] ti LO 93 1- 2- 00 T 61 IC ve G 69 20 20 PH 3 E AR 61 11 11 AR SA X 9 MA RA 70 CY H -3 71 M 0 74 FL # EX PE 71 N 74 SY RN ME 00 01 06 6 60 30 KM 69 PA Ac TO 09 -0 -2 .0 AR 11 YN ti OH 30 4- 0- 00 T 00 E ve OL 73 20 20 PH 6 VA OL 31 11 11 AR UG 0 MA HN TA CY W RT 71 RA 74 TE # 50 71 74 MG TA B EN 64 01 06 6 60 30 KM 69 PA Ac AL 67 -0 -2 .0 AR 11 YN ti AP 90 4- 0- 00 T 00 E ve RI 92 20 20 PH 8 VA L 50 11 11 AR UG MA 2 MA HN LE CY W AT 71 E 74 10 # MG 71 74 TA B GA 14 04 06 3 60 30 KM 69 JU Ac BA 55 -2 -[address] ti PE 00 6- 0- 00 T 54 IC ve NT 51 20 20 PH 2 E IN 20 11 11 AR SA 2 MA RA 30 CY H 0 71 M MG 74 # CA PS 71 UL 74 E MO 00 05 06 0 60 30 PA 20 LA Ac RP 40 -1 -1 .0 SA 96 RS ti HI 68 2- 0- 00 DE 02 ON ve NE 31 20 20 NA 8 50 11 11 LA CLARK 1 PH UR LF AR EN MA K ER CY 15 MG TA BL ET EN 60 05 06 0 90 30 PA 20 LA Ac DO 95 -1 -1 .0 SA 96 RS ti CE 10 2- 0- 00 DE 02 ON ve T 71 20 20 NA 9 10 27 11 11 LA -3 0 PH UR 25 AR EN MA K MG CY TA BL ET TI 00 03 06 5 30 30 PA 61 LA Ac ZA 18 -0 -1 .0 SA 07 RS ti NI 54 8- 0- 00 DE 30 ON ve DI 40 20 20 NA 1 NE 01 11 11 LA 0 PH UR HC AR EN L MA K 4 CY MG TA BL ET BD 08 12 06 5 10 30 KM 88 KI Ac 29 -3 -0 0. AR 11 NG ti UL 03 0- 9- 00 T 73 ER ve TR 20 20 20 0 PH 4 Y A- 10 10 11 AR JE FI 9 MA NN NE CY IF 71 ER PE 74 B N # ND L 71 8M 74 MX 31 G FU 00 01 06 6 30 30 KM 69 PA Ac RO 37 -0 -0 .0 AR 11 YN ti SE 80 4- 2- 00 T 00 E ve AR 21 20 20 PH 9 VA DE 61 11 11 AR UG 0 MA HN 40 CY W 71 MG 74 # TA BL 71 ET 74 CR 00 01 06 6 30 30 KM 69 PA Ac ES 31 -0 -0 .0 AR 11 YN ti TO 00 4- 2- 00 T 01 E ve R 75 20 20 PH 0 VA 10 19 11 11 AR UG 0 MA HN MG CY W 71 TA 74 BL # ET 71 74 00 12 06 4 12 30 KM 69 KI Ac 55 -3 -0 0. AR 12 NG ti 50 0- 2- 00 T 83 ER ve 05 20 20 0 PH 4 Y 90 10 11 AR JE 5 MA NN CY IF 71 ER 74 B # 71 74 RO 00 06 06 2 30 30 KM 69 JU Ac PI 05 -0 -[address] ti NI 40 2- 2- 00 T 52 IC ve RO 12 20 20 PH 9 E LE 12 11 11 AR SA 5 MA RA HC CY H L 71 M 4 74 MG # TA 71 BL 74 ET FL 00 04 05 3 16 30 KM 69 JU Ac UT 05 -2 -[address] ti IC 43 9- 6- 00 T 70 IC ve 27 20 20 PH 2 E ON 09 11 11 AR SA E 9 MA RA OH CY H OP 71 M 74 50 # MC 71 G 74 SP RA Y NO 00 12 05 5 15 30 KM 69 KI Ac VO 16 -3 -2 .0 AR 10 NG ti LO 93 0- 4- 00 T 66 ER ve G 69 20 20 PH 5 Y AR 61 10 11 AR JE X 9 MA NN 70 CY IF -3 71 ER 0 74 B FL # EX PE 71 N 74 SY RN ME 00 01 05 6 60 30 KM 69 PA Ac TO 09 -0 -2 .0 AR 11 YN ti OH 30 4- 4- 00 T 00 E ve OL 73 20 20 PH 6 VA OL 31 11 11 AR UG 0 MA HN TA CY W RT 71 RA 74 TE # 50 71 74 MG TA B EN 64 01 05 6 60 30 KM 69 PA Ac AL 67 -0 -2 .0 AR 11 YN ti AP 90 4- 4- 00 T 00 E ve RI 92 20 20 PH 8 VA L 50 11 11 AR UG MA 2 MA HN LE CY W AT 71 E 74 10 # MG 71 74 TA B GA 14 04 05 3 60 30 KM 69 JU Ac BA 55 -2 -[address] ti PE 00 6- 4- 00 T 54 IC ve NT 51 20 20 PH 2 E IN 20 11 11 AR SA 2 MA RA 30 CY H 0 71 M MG 74 # CA PS 71 UL 74 E MO 00 05 05 0 60 30 PA 20 LA Ac RP 40 -1 -1 .0 SA 95 RS ti HI 68 2- 2- 00 DE 62 ON ve NE 31 20 20 NA 2 50 11 11 LA CLARK 1 PH UR LF AR EN MA K ER CY 15 MG TA BL ET EN 60 05 05 0 90 30 PA 20 LA Ac DO 95 -1 -1 .0 SA 95 RS ti CE 10 2- 2- 00 DE 62 ON ve T 71 20 20 NA 3 10 27 11 11 LA -3 0 PH UR 25 AR EN MA K MG CY TA BL ET TI 00 03 05 5 30 30 PA 61 LA Ac ZA 18 -0 -1 .0 SA 07 RS ti NI 54 8- 2- 00 DE 30 ON ve DI 40 20 20 NA 1 NE 01 11 11 LA 0 PH UR HC AR EN L MA K 4 CY MG TA BL ET RO 00 12 05 5 30 30 KM 69 Ac PI 05 -1 -0 .0 AR 09 HB ti NI 40 4- 5- 00 T 68 Y ve RO 12 20 20 PH 7 AZAM LE 12 10 11 AR NE 5 MA S HC CY LA L 71 UR 4 74 A MG # P TA 71 BL 74 ET FU 00 01 05 6 30 30 KM 69 PA Ac RO 37 -0 -0 .0 AR 11 YN ti SE 80 4- 5- 00 T 00 E ve AR 21 20 20 PH 9 VA DE 61 11 11 AR UG 0 MA HN 40 CY W 71 MG 74 # TA BL 71 ET 74 CR 00 01 05 6 30 30 KM 69 PA Ac ES 31 -0 -0 .0 AR 11 YN ti TO 00 4- 5- 00 T 01 E ve R 75 20 20 PH 0 VA 10 19 11 11 AR UG 0 MA HN MG CY W 71 TA 74 BL # ET 71 74 00 12 05 4 12 30 KM 69 KI Ac 55 -3 -0 0. AR 12 NG ti 50 0- 5- 00 T 83 ER ve 05 20 20 0 PH 4 Y 90 10 11 AR JE 5 MA NN CY IF 71 ER 74 B # 71 74 FL 00 04 04 3 16 30 KM 69 JU Ac UT 05 -2 -[address] ti IC 43 9- 9- 00 T 70 IC ve 27 20 20 PH 2 E ON 09 11 11 AR SA E 9 MA RA OH CY H OP 71 M 74 50 # MC 71 G 74 SP RA Y ME 00 11 04 6 60 30 KM 69 PA Ac TO 09 -0 -2 .0 AR 07 YN ti OH 30 1- 7- 00 T 00 E ve OL 73 20 20 PH 4 VA OL 31 10 11 AR UG 0 MA HN TA CY W RT 71 RA 74 TE # 50 71 74 MG TA B NO 00 12 04 5 15 30 KM 69 KI Ac VO 16 -3 -2 .0 AR 10 NG ti LO 93 0- 7- 00 T 66 ER ve G 69 20 20 PH 5 Y AR 61 10 11 AR JE X 9 MA NN 70 CY IF -3 71 ER 0 74 B FL # EX PE 71 N 74 SY RN EN 64 01 04 6 60 30 KM 69 PA Ac AL 67 -0 -2 .0 AR 11 YN ti AP 90 4- 7- 00 T 00 E ve RI 92 20 20 PH 8 VA L 50 11 11 AR UG MA 2 MA HN LE CY W AT 71 E 74 10 # MG 71 74 TA B GA 14 04 04 3 60 30 KM 69 JU Ac BA 55 -2 -[address] ti PE 00 6- 7- 00 T 54 IC ve NT 51 20 20 PH 2 E IN 20 11 11 AR SA 2 MA RA 30 CY H 0 71 M MG 74 # CA PS 71 UL 74 E EN 60 03 04 0 90 30 PA 20 FL Ac DO 95 -0 -1 .0 SA 95 IN ti CE 10 8- 2- 00 DE 16 CH ve T 71 20 20 NA 6 UM 10 27 11 11 -3 0 PH EL 25 AR LE MA N MG CY J TA BL ET MO 00 03 04 0 60 30 PA 20 FL Ac RP 40 -0 -1 .0 SA 95 IN ti HI 68 8- 2- 00 DE 16 CH ve NE 31 20 20 NA 7 UM 50 11 11 CLARK 1 PH EL LF AR LE MA N ER CY J 15 MG TA BL ET TI 55 03 04 5 30 30 PA 61 LA Ac ZA 11 -0 -1 .0 SA 07 RS ti NI 10 8- 2- 00 DE 30 ON ve DI 18 20 20 NA 1 NE 01 11 11 LA 0 PH UR HC AR EN L MA K 4 CY MG TA BL ET RO 23 12 04 5 30 30 KM 69 Ac PI 15 -1 -0 .0 AR 09 HB ti NI 50 4- 8- 00 T 68 Y ve RO 12 20 20 PH 7 AZAM LE 60 10 11 AR NE 1 MA S HC CY LA L 71 UR 4 74 A MG # P TA 71 BL 74 ET FU 00 01 04 6 30 30 KM 69 PA Ac RO 37 -0 -0 .0 AR 11 YN ti SE 80 4- 8- 00 T 00 E ve AR 21 20 20 PH 9 VA DE 61 11 11 AR UG 0 MA HN 40 CY W 71 MG 74 # TA BL 71 ET 74 CR 00 01 04 6 30 30 KM 69 PA Ac ES 31 -0 -0 .0 AR 11 YN ti TO 00 4- 8- 00 T 01 E ve R 75 20 20 PH 0 VA 10 19 11 11 AR UG 0 MA HN MG CY W 71 TA 74 BL # ET 71 74 00 12 04 4 12 30 KM 69 Ac 55 -3 -0 0. AR 12 NG ti 50 0- 8- 00 T 83 ER ve 05 20 20 0 PH 4 Y 90 10 11 AR JE 5 MA NN CY IF 71 ER 74 B # 71 74 ME 00 11 03 6 60 30 KM 69 PA Ac TO 09 -0 -3 .0 AR 07 YN ti OH 30 1- 0- 00 T 00 E ve OL 73 20 20 PH 4 VA OL 31 10 11 AR UG 0 MA HN TA CY W RT 71 RA 74 TE # 50 71 74 MG TA B NO 00 12 03 5 15 30 KM 69 KI Ac VO 16 -3 -3 .0 AR 10 NG ti LO 93 0- 0- 00 T 66 ER ve G 69 20 20 PH 5 Y AR 61 10 11 AR JE X 9 MA NN 70 CY IF -3 71 ER 0 74 B FL # EX PE 71 N 74 SY RN FL 00 12 03 3 16 30 KM 69 Ac UT 05 -3 -3 .0 AR 10 NG ti IC 43 0- 0- 00 T 67 ER ve 27 20 20 PH 5 Y ON 09 10 11 AR JE E 9 MA NN OH CY IF OP 71 ER 74 B 50 # MC 71 G 74 SP RA Y EN 00 01 03 6 60 30 KM 69 PA Ac AL 09 -0 -3 .0 AR 11 YN ti AP 30 4- 0- 00 T 00 E ve RI 02 20 20 PH 8 VA L 81 11 11 AR UG MA 0 MA HN LE CY W AT 71 E 74 10 # MG 71 74 TA B GA 14 12 03 3 60 30 KM 69 KI Ac BA 55 -3 -2 .0 AR 10 NG ti PE 00 0- 8- 00 T 67 ER ve NT 51 20 20 PH 4 Y IN 20 10 11 AR JE 2 MA NN 30 CY IF 0 71 ER MG 74 B # CA PS 71 UL 74 E MO 00 03 03 0 60 30 PA 20 FL Ac RP 40 -0 -1 .0 SA 94 IN ti HI 68 8- 1- 00 DE 73 CH ve NE 31 20 20 NA 0 UM 50 11 11 CLARK 1 PH EL LF AR LE MA N ER CY J 15 MG TA BL ET EN 60 03 03 0 90 30 PA 20 FL Ac DO 95 -0 -1 .0 SA 94 IN ti CE 10 8- 1- 00 DE 73 CH ve T 71 20 20 NA 1 UM 10 27 11 11 -3 0 PH EL 25 AR LE MA N MG CY J TA BL ET TI 00 03 03 5 30 30 PA 61 LA Ac ZA 18 -0 -1 .0 SA 07 RS ti NI 54 8- 1- 00 DE 30 ON ve DI 40 20 20 NA 1 NE 01 11 11 LA 0 PH UR HC AR EN L MA K 4 CY MG TA BL ET RO 23 12 03 5 30 30 KM 69 Ac PI 15 -1 -0 .0 AR 09 HB ti NI 50 4- 7- 00 T 68 Y ve RO 12 20 20 PH 7 AZAM LE 60 10 11 AR NE 1 MA S HC CY LA L 71 UR 4 74 A MG # P TA 71 BL 74 ET FU 00 01 03 6 30 30 KM 69 PA Ac RO 37 -0 -0 .0 AR 11 YN ti SE 80 4- 4- 00 T 00 E ve AR 21 20 20 PH 9 VA DE 61 11 11 AR UG 0 MA HN 40 CY W 71 MG 74 # TA BL 71 ET 74 CR 00 01 03 6 30 30 KM 69 PA Ac ES 31 -0 -0 .0 AR 11 YN ti TO 00 4- 4- 00 T 01 E ve R 75 20 20 PH 0 VA 10 19 11 11 AR UG 0 MA HN MG CY W 71 TA 74 BL # ET 71 74 00 12 03 4 12 30 KM 69 KI Ac 55 -3 -0 0. AR 12 NG ti 50 0- 4- 00 T 83 ER ve 05 20 20 0 PH 4 Y 90 10 11 AR JE 5 MA NN CY IF 71 ER 74 B # 71 74 ME 00 11 02 6 60 30 KM 69 PA Ac TO 09 -0 -2 .0 AR 07 YN ti OH 30 1- 8- 00 T 00 E ve OL 73 20 20 PH 4 VA OL 31 10 11 AR UG 0 MA HN TA CY W RT 71 RA 74 TE # 50 71 74 MG TA B NO 00 12 02 5 15 30 KM 69 KI Ac VO 16 -3 -2 .0 AR 10 NG ti LO 93 0- 8- 00 T 66 ER ve G 69 20 20 PH 5 Y AR 61 10 11 AR JE X 9 MA NN 70 CY IF -3 71 ER 0 74 B FL # EX PE 71 N 74 SY RN GA 14 12 02 3 60 30 KM 69 KI Ac BA 55 -3 -2 .0 AR 10 NG ti PE 00 0- 8- 00 T 67 ER ve NT 51 20 20 PH 4 Y IN 20 10 11 AR JE 2 MA NN 30 CY IF 0 71 ER MG 74 B # CA PS 71 UL 74 E FL 00 12 02 3 16 30 KM 69 KI Ac UT 05 -3 -2 .0 AR 10 NG ti IC 43 0- 8- 00 T 67 ER ve 27 20 20 PH 5 Y ON 09 10 11 AR JE E 9 MA NN OH CY IF OP 71 ER 74 B 50 # MC 71 G 74 SP RA Y EN 00 01 02 6 60 30 KM 69 PA Ac AL 09 -0 -2 .0 AR 11 YN ti AP 30 4- 8- 00 T 00 E ve RI 02 20 20 PH 8 VA L 81 11 11 AR UG MA 0 MA HN LE CY W AT 71 E 74 10 # MG 71 74 TA B DO 00 02 02 56 28 KM 69 MA Ac XY 14 -0 -1 .0 AR 13 NN ti CY 33 2- 6- 00 T 84 AN ve CL 14 20 20 PH 6 IN 25 11 11 AR MO E 0 MA CASTELAN HY CY MM CL 71 AD AT 74 Y E # 10 0 71 MG 74 CA P EN 60 01 02 0 90 30 PA 20 LA Ac DO 95 -1 -1 .0 SA 94 RS ti CE 10 4- 0- 00 DE 34 ON ve T 71 20 20 NA 3 10 27 11 11 LA -3 0 PH UR 25 AR EN MA K MG CY TA BL ET MO 00 01 02 0 60 30 PA 20 LA Ac RP 40 -1 -1 .0 SA 94 RS ti HI 68 4- 0- 00 DE 34 ON ve NE 31 20 20 NA 4 50 11 11 LA CLARK 1 PH UR LF AR EN MA K ER CY 15 MG TA BL ET TI 55 01 02 1 30 30 PA 61 LA Ac ZA 11 -1 -1 .0 SA 06 RS ti NI 10 4- 0- 00 DE 93 ON ve DI 18 20 20 NA 0 NE 01 11 11 LA 0 PH UR HC AR EN L MA K 4 CY MG TA BL ET RO 23 12 02 5 30 30 KM 69 Ac PI 15 -1 -0 .0 AR 09 HB ti NI 50 4- 7- 00 T 68 Y ve RO 12 20 20 PH 7 AZAM LE 60 10 11 AR NE 1 MA S HC CY LA L 71 UR 4 74 A MG # P TA 71 BL 74 ET FU 00 06 02 5 30 30 KM 68 Ac RO 37 -2 -0 .0 AR 99 HB ti SE 80 2- 5- 00 T 18 Y ve AR 21 20 20 PH 5 AZAM DE 61 10 11 AR NE 0 MA S 40 CY LA 71 UR MG 74 A # P TA BL 71 ET 74 CR 00 01 02 6 30 30 KM 69 PA Ac ES 31 -0 -0 .0 AR 11 YN ti TO 00 4- 3- 00 T 01 E ve R 75 20 20 PH 0 VA 10 19 11 11 AR UG 0 MA HN MG CY W 71 TA 74 BL # ET 71 74 00 12 02 4 12 30 KM 69 KI Ac 55 -3 -0 0. AR 12 NG ti 50 0- 3- 00 T 83 ER ve 05 20 20 0 PH 4 Y 90 10 11 AR JE 5 MA NN CY IF 71 ER 74 B # 71 74 VA 00 02 02 1 28 14 IN 15 MA Ac NC 33 -0 -0 00 FU 20 NN ti OM 83 2- 2- .0 SI 9 AN ve YC 55 20 20 00 ON IN 24 11 11 MO 8 SO CASTELAN HC TY MM L TI AD 1G ON Y /2 S 00 ML BA G EN 00 06 01 5 60 30 KM 68 Ac AL 09 -2 -2 .0 AR 99 HB ti AP 30 2- 6- 00 T 18 Y ve RI 02 20 20 PH 4 AZAM L 90 10 11 AR NE MA 1 MA S LE CY LA AT 71 UR E 74 A 20 # P MG 71 74 TA B ME 00 11 01 6 60 30 KM 69 PA Ac TO 37 -0 -2 .0 AR 07 YN ti OH 80 1- 6- 00 T 00 E ve OL 03 20 20 PH 4 VA OL 21 10 11 AR UG 0 MA HN TA CY W RT 71 RA 74 TE # 50 71 74 MG TA B NO 00 12 01 5 15 30 KM 69 KI Ac VO 16 -3 -2 .0 AR 10 NG ti LO 93 0- 6- 00 T 66 ER ve G 69 20 20 PH 5 Y AR 61 10 11 AR JE X 9 MA NN 70 CY IF -3 71 ER 0 74 B FL # EX PE 71 N 74 SY RN GA 14 12 01 3 60 30 KM 69 KI Ac BA 55 -3 -2 .0 AR 10 NG ti PE 00 0- 6- 00 T 67 ER ve NT 51 20 20 PH 4 Y IN 20 10 11 AR JE 2 MA NN 30 CY IF 0 71 ER MG 74 B # CA PS 71 UL 74 E FL 00 12 01 3 16 30 KM 69 KI Ac UT 05 -3 -2 .0 AR 10 NG ti IC 43 0- 6- 00 T 67 ER ve 27 20 20 PH 5 Y ON 09 10 11 AR JE E 9 MA NN OH CY IF OP 71 ER 74 B 50 # MC 71 G 74 SP RA Y MO 00 01 01 0 60 30 PA 20 LA Ac RP 40 -1 -1 .0 SA 93 RS ti HI 68 4- 4- 00 DE 99 ON ve NE 31 20 20 NA 2 50 11 11 LA CLARK 1 PH UR LF AR EN MA K ER CY 15 MG TA BL ET OX 53 01 01 0 90 30 PA 20 LA Ac YC 74 -1 -1 .0 SA 93 RS ti OD 60 4- 4- 00 DE 99 ON ve ON 20 20 20 NA 3 E- 40 11 11 LA AC 1 PH UR ET AR EN AM MA K IN CY OP HE N 10 -3 25 TI 55 01 01 1 30 30 PA 61 LA Ac ZA 11 -1 -1 .0 SA 06 RS ti NI 10 4- 4- 00 DE 93 ON ve DI 18 20 20 NA 0 NE 01 11 11 LA 0 PH UR HC AR EN L MA K 4 CY MG TA BL ET RO 00 12 01 5 30 30 KM 69 Ac PI 05 -1 -1 .0 AR 09 HB ti NI 40 4- 0- 00 T 68 Y ve RO 12 20 20 PH 7 AZAM LE 12 10 11 AR NE 5 MA S HC CY LA L 71 UR 4 74 A MG # P TA 71 BL 74 ET FU 00 06 01 5 30 30 KM 68 Ac RO 37 -2 -0 .0 AR 99 HB ti SE 80 2- 6- 00 T 18 Y ve AR 21 20 20 PH 5 AZAM DE 61 10 11 AR NE 0 MA S 40 CY LA 71 UR MG 74 A # P TA BL 71 ET 74 DI 00 11 01 6 30 30 KM 69 PA Ac GO 11 -0 -0 .0 AR 07 YN ti XI 59 4- 6- 00 T 30 E ve N 81 20 20 PH 6 VA 12 10 10 11 AR UG 5 3 MA HN MC CY W G 71 TA 74 BL # ET 71 74 CR 00 06 01 5 30 30 KM 68 Ac ES 31 -2 -0 .0 AR 99 HB ti TO 00 2- 6- 00 T 18 Y ve R 75 20 20 PH 6 AZAM 10 19 10 11 AR NE 0 MA S MG CY LA 71 UR TA 74 A BL # P ET 71 74 NO 00 12 12 5 15 30 KM 69 KI Ac VO 16 -3 -3 .0 AR 10 NG ti LO 93 0- 0- 00 T 66 ER ve G 69 20 20 PH 5 Y AR 61 10 10 AR JE X 9 MA NN 70 CY IF -3 71 ER 0 74 B FL # EX PE 71 N 74 SY RN GA 14 12 12 3 60 30 KM 69 KI Ac BA 55 -3 -3 .0 AR 10 NG ti PE 00 0- 0- 00 T 67 ER ve NT 51 20 20 PH 4 Y IN 20 10 10 AR JE 2 MA NN 30 CY IF 0 71 ER MG 74 B # CA PS 71 UL 74 E FL 50 12 12 3 16 30 KM 69 KI Ac UT 38 -3 -3 .0 AR 10 NG ti IC 30 0- 0- 00 T 67 ER ve 70 20 20 PH 5 Y ON 01 10 10 AR JE E 6 MA NN OH CY IF OP 71 ER 74 B 50 # MC 71 G 74 SP RA Y BD 08 12 12 5 10 30 KM 88 KI Ac 29 -3 -3 0. AR 11 NG ti UL 03 0- 0- 00 T 73 ER ve TR 20 20 20 0 PH 4 Y A- 10 10 10 AR JE FI 9 MA NN NE CY IF 71 ER PE 74 B N # ND L 71 8M 74 MX 31 G EN 00 06 12 5 60 30 KM 68 Ac AL 09 -2 -2 .0 AR 99 HB ti AP 30 2- 9- 00 T 18 Y ve RI 02 20 20 PH 4 AZAM L 90 10 10 AR NE MA 1 MA S LE CY LA AT 71 UR E 74 A 20 # P MG 71 74 TA B ME 00 11 12 6 60 30 KM 69 PA Ac TO 37 -0 -2 .0 AR 07 YN ti OH 80 1- 9- 00 T 00 E ve OL 03 20 20 PH 4 VA OL 21 10 10 AR UG 0 MA HN TA CY W RT 71 RA 74 TE # 50 71 74 MG TA B RO 00 12 12 5 30 30 KM 69 Ac PI 05 -1 -1 .0 AR 09 HB ti NI 40 4- 4- 00 T 68 Y ve RO 12 20 20 PH 7 AZAM LE 12 10 10 AR NE 5 MA S HC CY LA L 71 UR 4 74 A MG # P TA 71 BL 74 ET FU 00 06 12 5 30 30 KM 68 Ac RO 37 -2 -0 .0 AR 99 HB ti SE 80 2- 6- 00 T 18 Y ve AR 21 20 20 PH 5 AZAM DE 61 10 10 AR NE 0 MA S 40 CY LA 71 UR MG 74 A # P TA BL 71 ET 74 CR 00 06 12 5 30 30 KM 68 Ac ES 31 -2 -0 .0 AR 99 HB ti TO 00 2- 6- 00 T 18 Y ve R 75 20 20 PH 6 AZAM 10 19 10 10 AR NE 0 MA S MG CY LA 71 UR TA 74 A BL # P ET 71 74 DI 00 11 12 6 30 30 KM 69 PA Ac GO 11 -0 -0 .0 AR 07 YN ti XI 59 4- 6- 00 T 30 E ve N 81 20 20 PH 6 VA 12 10 10 10 AR UG 5 3 MA HN MC CY W G 71 TA 74 BL # ET 71 74 AC 64 01 12 1 90 30 KM 69 DU Ac TO 76 -1 -0 .0 AR 07 NN ti S 40 5- 6- 00 T 53 IN ve 15 15 20 20 PH 6 G 10 10 10 AR MA MG 4 MA LE CY SH TA 71 EA BL 74 ET # 71 74 OX 53 11 12 0 12 30 PA 20 LA Ac YC 74 -0 -0 0. SA 93 RS ti OD 60 5- 2- 00 DE 44 ON ve ON 20 20 20 0 NA 5 E- 40 10 10 LA AC 1 PH UR ET AR EN AM MA K IN CY OP HE N 10 -3 25 TI 55 11 12 1 60 30 PA 61 LA Ac ZA 11 -0 -0 .0 SA 06 RS ti NI 10 5- 2- 00 DE 48 ON ve DI 17 20 20 NA 0 NE 91 10 10 LA 0 PH UR HC AR EN L MA K 2 CY MG TA BL ET LY 00 11 11 90 30 KM 44 Ac RI 07 -3 -3 .0 AR 61 HB ti CA 11 0- 0- 00 T 58 Y ve 01 20 20 PH 0 AZAM 25 26 10 10 AR NE 8 MA S MG CY LA 71 UR CA 74 A PS # P UL E 71 74 EN 00 06 11 5 60 30 KM 68 Ac AL 09 -2 -2 .0 AR 99 HB ti AP 30 2 9- 00 T 18 Y ve RI 02 20 20 PH 4 AZAM L 90 10 10 AR NE MA 1 MA S LE CY LA AT 71 UR E 74 A 20 # P MG 71 74 TA B NO 00 09 11 1 15 30 KM 69 BH Ac VO 16 -2 -2 .0 AR 04 AG ti LO 93 3- 9- 00 T 56 RA ve G 69 20 20 PH 8 TH AR 61 10 10 AR X 9 MA RA 70 CY -3 71 ND 0 74 ER FL # S EX PE 71 N 74 SY RN ME 00 11 11 6 60 30 KM 69 PA Ac TO 09 -0 -2 .0 AR 07 YN ti OH 30 T 00 E ve OL 73 20 20 PH 4 VA OL 31 10 10 AR UG 0 MA HN TA CY W RT 71 RA 74 TE # 50 71 74 MG TA B BD 08 03 11 10 30 KM 88 Ac 29 -1 -2 0. AR 11 HB ti UL 03 9 00 T 64 Y ve TR 20 20 20 0 PH 8 AZAM A- 10 10 10 AR NE FI 9 MA S NE CY LA 71 UR PE 74 A N # P ND L 71 8M 74 MX 31 G RO 00 06 11 5 30 30 KM 68 Ac PI 05 -2 -0 .0 AR 99 HB ti NI 40 2- 8- 00 T 18 Y ve RO 12 20 20 PH 1 AZAM LE 12 10 10 AR NE 5 MA S HC CY LA L 71 UR 4 74 A MG # P TA 71 BL 74 ET FU 00 06 11 5 30 30 KM 68 Ac RO 37 -2 -0 .0 AR 99 HB ti SE 80 2- 8- 00 T 18 Y ve AR 21 20 20 PH 5 AZAM DE 61 10 10 AR NE 0 MA S 40 CY LA 71 UR MG 74 A # P TA BL 71 ET 74 CR 00 06 11 5 30 30 KM 68 Ac ES 31 -2 -0 .0 AR 99 HB ti TO 00 2 8- 00 T 18 Y ve R 75 20 20 PH 6 AZAM 10 19 10 10 AR NE 0 MA S MG CY LA 71 UR TA 74 A BL # P ET 71 74 AC 64 01 11 1 90 30 KM 69 DU Ac TO 76 -1 -0 .0 AR 07 NN ti S 40 5- 8- 00 T 53 IN ve 15 15 20 20 PH 6 G 10 10 10 AR MA MG 4 MA LE CY SH TA 71 EA BL 74 ET # 71 74 TI 55 11 11 1 60 30 PA 61 LA Ac ZA 11 -0 -0 .0 SA 06 RS ti NI 10 5- 5- 00 DE 48 ON ve DI 17 20 20 NA 0 NE 91 10 10 LA 0 PH UR HC AR EN L MA K 2 CY MG TA BL ET OX 00 11 11 0 86 30 PA 20 LA Ac YC 40 -0 -0 .0 SA 93 RS ti OD 60 5- 5- 00 DE 13 ON ve ON 52 20 20 NA 5 E- 30 10 10 LA AC 1 PH UR ET AR EN AM MA K IN CY OP HE N 10 -3 25 DI 00 11 11 6 30 30 KM 69 PA Ac GO 11 -0 -0 .0 AR 07 YN ti XI 59 4- 4- 00 T 30 E ve N 81 20 20 PH 6 VA 12 10 10 10 AR UG 5 3 MA HN MC CY W G 71 TA 74 BL # ET 71 74 ME 00 11 11 6 60 30 KM 69 PA Ac TO 09 -0 -0 .0 AR 07 YN ti OH 30 1- 1- 00 T 00 E ve OL 73 20 20 PH 4 VA OL 31 10 10 AR UG 0 MA HN TA CY W RT 71 RA 74 TE # 50 71 74 MG TA B EN 00 06 10 5 60 30 KM 68 Ac AL 09 -2 -2 .0 AR 99 HB ti AP 30 2- 9- 00 T 18 Y ve RI 02 20 20 PH 4 AZAM L 90 10 10 AR NE MA 1 MA S LE CY LA AT 71 UR E 74 A 20 # P MG 71 74 TA B LY 00 09 10 1 90 30 CE 37 Ac RI 07 -2 -2 .0 DA 15 HB ti CA 11 8- 6- 00 R 75 Y ve 01 20 20 TR AZAM 25 26 10 10 AC NE 8 E S MG PH LA AR UR CA MA A PS CY P UL E HY 00 09 10 1 30 [address] 55 -2 -1 .0 AR 04 HB ti OX 50 1- 8- 00 T 42 Y ve YZ 32 20 20 PH 6 AZAM IN 30 10 10 AR NE E 2 MA S PA CY LA M 71 UR 25 74 A # P MG 71 CA 74 P AC 64 01 10 5 30 30 KM 68 DU Ac TO 76 -1 -1 .0 AR 89 NN ti S 40 5- 1- 00 T 78 IN ve 45 45 20 20 PH 0 G 12 10 10 AR MA MG 4 MA LE CY SH TA 71 EA BL 74 ET # 71 74 RO 00 06 10 5 30 30 KM 68 Ac PI 37 -2 -1 .0 AR 99 HB ti NI 85 2- 1- 00 T 18 Y ve RO 50 20 20 PH 1 AZAM LE 40 10 10 AR NE 1 MA S HC CY LA L 71 UR 4 74 A MG # P TA 71 BL 74 ET FU 00 06 10 5 30 30 KM 68 Ac RO 37 -2 -1 .0 AR 99 HB ti SE 80 2- 1- 00 T 18 Y ve AR 21 20 20 PH 5 AZAM DE 61 10 10 AR NE 0 MA S 40 CY LA 71 UR MG 74 A # P TA BL 71 ET 74 CR 00 06 10 5 30 30 KM 68 Ac ES 31 -2 -1 .0 AR 99 HB ti TO 00 2- 1- 00 T 18 Y ve R 75 20 20 PH 6 AZAM 10 19 10 10 AR NE 0 MA S MG CY LA 71 UR TA 74 A BL # P ET 71 74 ME 00 03 10 6 60 30 KM 68 PA Ac TO 09 -3 -0 .0 AR 94 YN ti OH 30 1- 2- 00 T 40 E ve OL 73 20 20 PH 6 VA OL 31 10 10 AR UG 0 MA HN TA CY W RT 71 RA 74 TE # 50 71 74 MG TA B EN 00 06 10 5 60 30 KM 68 Ac AL 09 -2 -0 .0 AR 99 HB ti AP 30 2- 2- 00 T 18 Y ve RI 02 20 20 PH 4 AZAM L 90 10 10 AR NE MA 1 MA S LE CY LA AT 71 UR E 74 A 20 # P MG 71 74 TA B NO 00 09 10 1 15 30 KM 69 BH Ac VO 16 -2 -0 .0 AR 04 AG ti LO 93 3- 2- 00 T 56 RA ve G 69 20 20 PH 8 TH AR 61 10 10 AR X 9 MA RA 70 CY -3 71 ND 0 74 ER FL # S EX PE 71 N 74 SY RN LY 00 09 09 1 90 30 CE 37 Ac RI 07 -2 -2 .0 DA 15 HB ti CA 11 8- 8- 00 R 75 Y ve 01 20 20 TR AZAM 25 26 10 10 AC NE 8 E S MG PH LA AR UR CA MA A PS CY P UL E HY 00 09 09 1 30 [address] 55 -2 -2 .0 AR 04 HB ti OX 50 1- 1- 00 T 42 Y ve YZ 32 20 20 PH 6 AZAM IN 30 10 10 AR NE E 2 MA S PA CY LA M 71 UR 25 74 A # P MG 71 CA 74 P AC 64 01 09 5 30 30 KM 68 DU Ac TO 76 -1 -1 .0 AR 89 NN ti S 40 5- 3- 00 T 78 IN ve 45 45 20 20 PH 0 G 12 10 10 AR MA MG 4 MA LE CY SH TA 71 EA BL 74 ET # 71 74 DI 00 03 09 6 30 30 KM 68 PA Ac GO 52 -1 -1 .0 AR 93 YN ti X 71 6- 3- 00 T 39 E ve 12 32 20 20 PH 6 VA 5 40 10 10 AR UG MC 1 MA HN G CY W TA 71 BL 74 ET # 71 74 RO 00 06 09 5 30 30 KM 68 Ac PI 05 -2 -1 .0 AR 99 HB ti NI 40 2- 3- 00 T 18 Y ve RO 12 20 20 PH 1 AZAM LE 12 10 10 AR NE 5 MA S HC CY LA L 71 UR 4 74 A MG # P TA 71 BL 74 ET FU 00 06 09 5 30 30 KM 68 Ac RO 37 -2 -1 .0 AR 99 HB ti SE 80 2- 3- 00 T 18 Y ve AR 21 20 20 PH 5 AZAM DE 60 10 10 AR NE 1 MA S 40 CY LA 71 UR MG 74 A # P TA BL 71 ET 74 CR 00 06 09 5 30 30 KM 68 Ac ES 31 -2 -1 .0 AR 99 HB ti TO 00 2- 3- 00 T 18 Y ve R 75 20 20 PH 6 AZAM 10 19 10 10 AR NE 0 MA S MG CY LA 71 UR TA 74 A BL # P ET 71 74 ME 00 03 09 6 60 30 KM 68 PA Ac TO 09 -3 -0 .0 AR 94 YN ti OH 30 1- 2- 00 T 40 E ve OL 73 20 20 PH 6 VA OL 31 10 10 AR UG 0 MA HN TA CY W RT 71 RA 74 TE # 50 71 74 MG TA B EN 00 06 09 5 60 30 KM 68 Ac AL 09 -2 -0 .0 AR 99 HB ti AP 30 2- 2- 00 T 18 Y ve RI 02 20 20 PH 4 AZAM L 90 10 10 AR NE MA 1 MA S LE CY LA AT 71 UR E 74 A 20 # P MG 71 74 TA B LY 00 08 08 0 90 30 BE 61 Ac RI 07 -3 -3 .0 TS 65 HB ti CA 11 1- 1- 00 Y 75 Y ve 01 20 20 LA AZAM 25 26 10 10 YN NE 8 E S MG PH LA AR UR CA MA A PS CY P UL E AC 64 01 08 5 30 30 KM 68 DU Ac TO 76 -1 -1 .0 AR 89 NN ti S 40 5- 7- 00 T 78 IN ve 45 45 20 20 PH 0 G 12 10 10 AR MA MG 4 MA LE CY SH TA 71 EA BL 74 ET # 71 74 DI 00 03 08 6 30 30 KM 68 PA Ac GO 52 -1 -1 .0 AR 93 YN ti X 71 6- 7- 00 T 39 E ve 12 32 20 20 PH 6 VA 5 40 10 10 AR UG MC 1 MA HN G CY W TA 71 BL 74 ET # 71 74 FU 00 03 08 5 30 30 KM 68 Ac RO 05 -1 -1 .0 AR 93 HB ti SE 44 8- 7- 00 T 58 Y ve AR 29 20 20 PH 9 AZAM DE 93 10 10 AR NE 1 MA S 40 CY LA 71 UR MG 74 A # P TA BL 71 ET 74 NO 00 06 08 2 15 30 KM 68 BH Ac VO 16 -0 -1 .0 AR 98 AG ti LO 93 8- 7- 00 T 31 RA ve G 69 20 20 PH 3 TH AR 61 10 10 AR X 9 MA RA 70 CY -3 71 ND 0 74 ER FL # S EX PE 71 N 74 SY RN RO 00 06 08 5 30 30 KM 68 Ac PI 37 -2 -1 .0 AR 99 HB ti NI 85 2- 7- 00 T 18 Y ve RO 50 20 20 PH 1 AZAM LE 40 10 10 AR NE 1 MA S HC CY LA L 71 UR 4 74 A MG # P TA 71 BL 74 ET CR 00 06 08 5 30 30 KM 68 Ac ES 31 -2 -1 .0 AR 99 HB ti TO 00 2- 7- 00 T 18 Y ve R 75 20 20 PH 6 AZAM 10 19 10 10 AR NE 0 MA S MG CY LA 71 UR TA 74 A BL # P ET 71 74 ME 00 03 08 6 60 30 KM 68 PA Ac TO 09 -3 -0 .0 AR 94 YN ti OH 30 1- 2- 00 T 40 E ve OL 73 20 20 PH 6 VA OL 31 10 10 AR UG 0 MA HN TA CY W RT 71 RA 74 TE # 50 71 74 MG TA B EN 00 04 08 3 60 30 KM 68 DU Ac AL 09 -2 -0 .0 AR 96 NN ti AP 30 7- 2- 00 T 04 IN ve RI 02 20 20 PH 5 G L 90 10 10 AR MA MA 1 MA LE LE CY SH AT 71 EA E 74 20 # MG 71 74 TA B 00 07 07 0 20 5 NE 21 SH Ac 59 -2 -2 .0 IG 35 Y ti 10 0- 0- [address] ve 34 20 20 OR EP 90 10 10 HO HE 5 OD N C PH AR MA CY CLARK 53 07 07 0 20 10 NE 21 SH Ac LF 74 -2 -2 .0 IG 35 Y ti AM 60 0- 0- [address] ve ET 27 20 20 OR EP HO 20 10 10 HO HE XA 1 OD N ZO C LE PH -T AR MP MA CY DS TA BL ET RO 00 06 07 5 30 30 KM 68 Ac PI 37 -2 -1 .0 AR 99 HB ti NI 85 2- 7- 00 T 18 Y ve RO 50 20 20 PH 1 AZAM LE 40 10 10 AR NE 1 MA S HC CY LA L 71 UR 4 74 A MG # P TA 71 BL 74 ET AC 64 01 07 5 30 30 KM 68 DU Ac TO 76 -1 -1 .0 AR 89 NN ti S 40 5- 5- 00 T 78 IN ve 45 45 20 20 PH 0 G 12 10 10 AR MA MG 4 MA LE CY SH TA 71 EA BL 74 ET # 71 74 CR 00 01 07 5 30 30 KM 68 DU Ac ES 31 -1 -1 .0 AR 89 NN ti TO 00 5- 5- 00 T 78 IN ve R 75 20 20 PH 3 G 10 19 10 10 AR MA 0 MA LE MG CY SH 71 EA TA 74 BL # ET 71 74 DI 00 03 07 6 30 30 KM 68 PA Ac GO 52 -1 -1 .0 AR 93 YN ti X 71 6- 5- 00 T 39 E ve 12 32 20 20 PH 6 VA 5 40 10 10 AR UG MC 1 MA HN G CY W TA 71 BL 74 ET # 71 74 FU 00 03 07 5 30 30 KM 68 Ac RO 05 -1 -1 .0 AR 93 HB ti SE 44 8- 5- 00 T 58 Y ve AR 29 20 20 PH 9 AZAM DE 93 10 10 AR NE 1 MA S 40 CY LA 71 UR MG 74 A # P TA BL 71 ET 74 NO 00 06 07 2 15 30 KM 68 BH Ac VO 16 -0 -1 .0 AR 98 AG ti LO 93 8- 5- 00 T 31 RA ve G 69 20 20 PH 3 TH AR 61 10 10 AR X 9 MA RA 70 CY -3 71 ND 0 74 ER FL # S EX PE 71 N 74 SY RN ME 00 03 07 6 60 30 KM 68 PA Ac TO 09 -3 -0 .0 AR 94 YN ti OH 30 1- 2- 00 T 40 E ve OL 73 20 20 PH 6 VA OL 31 10 10 AR UG 0 MA HN TA CY W RT 71 RA 74 TE # 50 71 74 MG TA B EN 00 04 07 3 60 30 KM 68 DU Ac AL 09 -2 -0 .0 AR 96 NN ti AP 30 7- 2- 00 T 04 IN ve RI 02 20 20 PH 5 G L 90 10 10 AR MA MA 1 MA LE LE CY SH AT 71 EA E 74 20 # MG 71 74 TA B LY 00 06 06 90 30 EC 46 WI Ac RI 07 -2 -2 .0 ON 96 ND ti CA 11 5- 5- 00 OM 73 SO ve 01 20 20 Y 0 R [address] RO 0 8 UG BE MG RT CO E CA MP PS AN UL Y E IN C BA 00 06 06 60 15 EC 73 WI Ac NO 90 -2 -2 .0 ON 27 ND ti PH 45 5- 5- 00 OM 27 SO ve EN 55 20 20 Y 2 R [address] RO 25 9 UG BE RT MG CO E MP TA AN BL Y ET IN C TI 00 06 06 30 30 EC 73 WI Ac ZA 37 -2 -2 .0 ON 27 ND ti NI 80 5- 5- 00 OM 27 SO ve DI 72 20 20 Y 3 R NE [address] RO 9 UG BE HC RT L CO E 4 MP MG AN Y TA IN BL C ET DO 00 06 06 30 30 EC 73 WI Ac XE 37 -2 -2 .0 ON 27 ND ti PI 83 5- 5- 00 OM 27 SO ve N 12 20 20 Y 4 R [address] RO 1 UG BE MG RT CO E CA MP PS AN UL Y E IN C 00 06 06 12 30 EC 46 WI Ac 59 -2 -2 0. ON 96 ND ti 10 5- 5- 00 OM 72 SO ve 54 20 20 0 Y 9 R [address] RO 5 UG BE RT CO E MP AN Y IN C RO 00 06 06 5 30 30 KM 68 Ac PI 37 -2 -2 .0 AR 99 HB ti NI 85 2- 2- 00 T 18 Y ve RO 50 20 20 PH 1 AZAM LE 40 10 10 AR NE 1 MA S HC CY LA L 71 UR 4 74 A MG # P TA 71 BL 74 ET 00 12 06 6 30 30 KM 68 DU Ac 17 -1 -1 .0 AR 87 NN ti 25 1- 6- 00 T 88 IN ve 66 20 20 PH 2 G 46 09 10 AR MA 0 MA LE CY SH 71 EA 74 # 71 74 CR 00 01 06 5 30 30 KM 68 DU Ac ES 31 -1 -1 .0 AR 89 NN ti TO 00 5- 6- 00 T 78 IN ve R 75 20 20 PH 3 G 10 19 10 10 AR MA 0 MA LE MG CY SH 71 EA TA 74 BL # ET 71 74 DI 00 03 06 6 30 30 KM 68 PA Ac GO 52 -1 -1 .0 AR 93 YN ti X 71 6- 6- 00 T 39 E ve 12 32 20 20 PH 6 VA 5 40 10 10 AR UG MC 1 MA HN G CY W TA 71 BL 74 ET # 71 74 FU 00 03 06 5 30 30 KM 68 Ac RO 37 -1 -1 .0 AR 93 HB ti SE 80 8- 6- 00 T 58 Y ve AR 21 20 20 PH 9 AZAM DE 61 10 10 AR NE 0 MA S 40 CY LA 71 UR MG 74 A # P TA BL 71 ET 74 00 04 06 3 30 15 KM 68 Ac 09 -2 -1 .0 AR 96 HB ti 35 7- 6- 00 T 04 Y ve 28 20 20 PH 6 AZAM 40 10 10 AR NE 1 MA S CY LA 71 UR 74 A # P 71 74 NO 00 06 06 2 15 30 KM 68 BH Ac VO 16 -0 -0 .0 AR 98 AG ti LO 93 8- 8- 00 T 31 RA ve G 69 20 20 PH 3 TH AR 61 10 10 AR X 9 MA RA 70 CY -3 71 ND 0 74 ER FL # S EX PE 71 N 74 SY RN ME 00 06 06 21 6 RI 62 MU Ac TH 60 -0 -0 .0 TE 93 TI ti YL 34 7- 7- 00 98 SO ve OH 59 20 20 AI ED 31 10 10 D AN NI [address] SO AR EW LO MA M NE CY 4 02 MG 29 0 DO # SE 02 PK 29 ME 00 03 06 6 60 30 KM 68 PA Ac TO 09 -3 -0 .0 AR 94 YN ti OH 30 1- 1- 00 T 40 E ve OL 73 20 20 PH 6 VA OL 31 10 10 AR UG 0 MA HN TA CY W RT 71 RA 74 TE # 50 71 74 MG TA B EN 00 04 06 3 60 30 KM 68 DU Ac AL 09 -2 -0 .0 AR 96 NN ti AP 30 7- 1- 00 T 04 IN ve RI 02 20 20 PH 5 G L 90 10 10 AR MA MA 1 MA LE LE CY SH AT 71 EA E 74 20 # MG 71 74 TA B LY 00 05 05 0 90 30 EC 46 WI Ac RI 07 -2 -2 .0 ON 95 ND ti CA 11 5- 5- 00 OM 10 SO ve 01 20 20 Y 4 R [address] RO 0 8 UG BE MG RT CO E CA MP PS AN UL Y E IN C BA 00 05 05 0 60 15 EC 73 WI Ac NO 90 -2 -2 .0 ON 23 ND ti PH 45 5- 5- 00 OM 92 SO ve EN 55 20 20 Y 8 R [address] RO 25 9 UG BE RT MG CO E MP TA AN BL Y ET IN C TI 00 05 05 0 30 30 EC 73 WI Ac ZA 37 -2 -2 .0 ON 23 ND ti NI 80 5- 5- 00 OM 92 SO ve DI 72 20 20 Y 9 R NE [address] RO 9 UG BE HC RT L CO E 4 MP MG AN Y TA IN BL C ET DO 00 05 05 0 30 30 EC 73 WI Ac XE 37 -2 -2 .0 ON 23 ND ti PI 83 5- 5- 00 OM 93 SO ve N 12 20 20 Y 0 R [address] RO 1 UG BE MG RT CO E CA MP PS AN UL Y E IN C 00 12 05 6 30 30 KM 68 DU Ac 17 -1 -2 .0 AR 87 NN ti 25 1- 0- 00 T 88 IN ve 66 20 20 PH 2 G 46 09 10 AR MA 0 MA LE CY SH 71 EA 74 # 71 74 CR 00 01 05 5 30 30 KM 68 DU Ac ES 31 -1 -2 .0 AR 89 NN ti TO 00 5- 0- 00 T 78 IN ve R 75 20 20 PH 3 G 10 19 10 10 AR MA 0 MA LE MG CY SH 71 EA TA 74 BL # ET 71 74 DI 00 03 05 6 30 30 KM 68 PA Ac GO 52 -1 -2 .0 AR 93 YN ti X 71 6- 0- 00 T 39 E ve 12 32 20 20 PH 6 VA 5 40 10 10 AR UG MC 1 MA HN G CY W TA 71 BL 74 ET # 71 74 FU 00 03 05 5 30 30 KM 68 Ac RO 37 -1 -1 .0 AR 93 HB ti SE 80 8- 5- 00 T 58 Y ve AR 21 20 20 PH 9 AZAM DE 61 10 10 AR NE 0 MA S 40 CY LA 71 UR MG 74 A # P TA BL 71 ET 74 00 04 05 3 30 15 KM 68 Ac 09 -2 -1 .0 AR 96 HB ti 35 7- 5- 00 T 04 Y ve 28 20 20 PH 6 AZAM 40 10 10 AR NE 1 MA S CY LA 71 UR 74 A # P 71 74 ME 00 03 04 6 60 30 KM 68 PA Ac TO 09 -3 -2 .0 AR 94 YN ti OH 30 1- 9- 00 T 40 E ve OL 73 20 20 PH 6 VA OL 31 10 10 AR UG 0 MA HN TA CY W RT 71 RA 74 TE # 50 71 74 MG TA B EN 00 04 04 3 60 30 KM 68 DU Ac AL 09 -2 -2 .0 AR 96 NN ti AP 30 7- 7- 00 T 04 IN ve RI 02 20 20 PH 5 G L 90 10 10 AR MA MA 1 MA LE LE CY SH AT 71 EA E 74 20 # MG 71 74 TA B 64 04 04 3 30 15 KM 68 Ac 72 -2 -2 .0 AR 96 HB ti 00 7- 7- 00 T 04 Y ve 20 20 20 PH 6 AZAM 31 10 10 AR NE 0 MA S CY LA 71 UR 74 A # P 71 74 LY 00 04 04 0 90 30 EC 46 WI Ac RI 07 -2 -2 .0 ON 93 ND ti CA 11 6- 6- 00 OM 56 SO ve 01 20 20 Y 8 R [address] RO 0 8 UG BE MG RT CO E CA MP PS AN UL Y E IN C TR 65 04 04 0 60 30 EC 46 WI Ac AM 16 -2 -2 .0 ON 93 ND ti AD 20 6- 6- 00 OM 56 SO ve OL 62 20 20 Y 9 R [address] NINA HC 1 UG BE L RT 50 CO E MP MG AN Y TA IN BL C ET DO 00 04 04 0 30 30 EC 73 WI Ac XE 37 -2 -2 .0 ON 20 ND ti PI 83 6- 6- 00 OM 57 SO ve N 12 20 20 Y 8 R [address] WOOD 1 UG BE MG RT CO E CA MP PS AN UL Y E IN C BA 00 04 04 0 60 10 EC 73 WI Ac NO 90 -2 -2 .0 ON 20 ND ti PH 45 6- 6- 00 OM 57 SO ve EN 55 20 20 Y 9 R [address] WOOD 25 9 UG BE RT MG CO E MP TA AN BL Y ET IN C NO 00 04 04 15 30 KM 68 BH Ac VO 16 -2 -2 .0 AR 95 AG ti LO 93 0- 6- 00 T 61 RA ve G 69 20 20 PH 1 TH AR 61 10 10 AR X 9 MA RA 70 CY -3 71 ND 0 74 ER FL # S EX PE 71 N 74 SY RN FU 63 03 04 5 30 30 KM 68 Ac RO 30 -1 -1 .0 AR 93 HB ti SE 40 8- 4- 00 T 58 Y ve AR 62 20 20 PH 9 AZAM DE 50 10 10 AR NE 1 MA S 40 CY LA 71 UR MG 74 A # P TA BL 71 ET 74 00 12 04 6 30 30 KM 68 DU Ac 17 -1 -1 .0 AR 87 NN ti 25 1- 2- 00 T 88 IN ve 66 20 20 PH 2 G 46 09 10 AR MA 0 MA LE CY SH 71 EA 74 # 71 74 CR 00 01 04 5 30 30 KM 68 DU Ac ES 31 -1 -1 .0 AR 89 NN ti TO 00 5- 2- 00 T 78 IN ve R 75 20 20 PH 3 G 10 19 10 10 AR MA 0 MA LE MG CY SH 71 EA TA 74 BL # ET 71 74 DI 00 03 04 6 30 30 KM 68 PA Ac GO 52 -1 -1 .0 AR 93 YN ti X 71 6- 2- 00 T 39 E ve 12 32 20 20 PH 6 VA 5 40 10 10 AR UG MC 1 MA HN G CY W TA 71 BL 74 ET # 71 74 64 03 04 1 30 15 KM 68 Ac 72 -1 -0 .0 AR 93 HB ti 00 8- 3- 00 T 59 Y ve 20 20 20 PH 9 AZAM 31 10 10 AR NE 0 MA S CY LA 71 UR 74 A # P 71 74 ME 00 03 03 6 60 30 KM 68 PA Ac TO 09 -3 -3 .0 AR 94 YN ti OH 30 1- 1- 00 T 40 E ve OL 73 20 20 PH 6 VA OL 31 10 10 AR UG 0 MA HN TA CY W RT 71 RA 74 TE # 50 71 74 MG TA B TR 65 03 03 90 30 EC 46 WI Ac AM 16 -2 -2 .0 ON 91 ND ti AD 20 5- 5- 00 OM 94 SO ve OL 62 20 20 Y 6 R [address] WOOD HC 1 UG BE L RT 50 CO E MP MG AN Y TA IN BL C ET LY 00 03 03 90 30 EC 46 WI Ac RI 07 -2 -2 .0 ON 91 ND ti CA 11 5- 5- 00 OM 94 SO ve 01 20 20 Y 7 R [address] NINA 0 8 UG BE MG RT CO E CA MP PS AN UL Y E IN C DO 00 03 03 30 30 EC 73 WI Ac XE 37 -2 -2 .0 ON 16 ND ti PI 83 5- 5- 00 OM 93 SO ve N 12 20 20 Y 6 R [address] WOOD 1 UG BE MG RT CO E CA MP PS AN UL Y E IN C BA 00 03 03 60 10 EC 73 WI Ac NO 90 -2 -2 .0 ON 16 ND ti PH 45 5- 5- 00 OM 93 SO ve EN 55 20 20 Y 7 R [address] WOOD 25 9 UG BE RT MG CO E MP TA AN BL Y ET IN C CLARK 53 03 03 10 5 EC 73 WI Ac LF 74 -2 -2 .0 ON 16 ND ti AM 60 5- 5- 00 OM 93 SO ve ET 27 20 20 Y 8 R HO [address] NINA XA 5 UG BE ZO RT LE CO E -T MP MP AN Y DS IN C TA BL ET 00 03 03 5 15 30 KM 88 Ac 16 -1 -1 .0 AR 10 HB ti 93 8- 8- 00 T 89 Y ve 47 20 20 PH 1 AZAM 71 10 10 AR NE 8 MA S CY LA 71 UR 74 A # P 71 74 FU 63 03 03 5 30 30 KM 68 Ac RO 30 -1 -1 .0 AR 93 HB ti SE 40 8- 8- 00 T 58 Y ve AR 62 20 20 PH 9 AZAM DE 50 10 10 AR NE 1 MA S 40 CY LA 71 UR MG 74 A # P TA BL 71 ET 74 64 03 03 1 30 15 KM 68 Ac 72 -1 -1 .0 AR 93 HB ti 00 8- 8- 00 T 59 Y ve 20 20 20 PH 9 AZAM 31 10 10 AR NE 0 MA S CY LA 71 UR 74 A # P 71 74 EN 00 06 03 3 60 30 KM 68 DU Ac AL 09 -1 -1 .0 AR 76 NN ti AP 30 1- 6- 00 T 44 IN ve RI 02 20 20 PH 7 G L 90 09 10 AR MA MA 1 MA LE LE CY SH AT 71 EA E 74 20 # MG 71 74 TA B 00 12 03 6 30 30 KM 68 DU Ac 17 -1 -1 .0 AR 87 NN ti 25 1- 6- 00 T 88 IN ve 66 20 20 PH 2 G 46 09 10 AR MA 0 MA LE CY SH 71 EA 74 # 71 74 CR 00 01 03 5 30 30 KM 68 DU Ac ES 31 -1 -1 .0 AR 89 NN ti TO 00 5- 6- 00 T 78 IN ve R 75 20 20 PH 3 G 10 19 10 10 AR MA 0 MA LE MG CY SH 71 EA TA 74 BL # ET 71 74 DI 00 03 03 6 30 30 KM 68 PA Ac GO 52 -1 -1 .0 AR 93 YN ti X 71 6- 6- 00 T 39 E ve 12 32 20 20 PH 6 VA 5 40 10 10 AR UG MC 1 MA HN G CY W TA 71 BL 74 ET # 71 74 FU 63 06 03 3 30 30 KM 68 DU Ac RO 30 -1 -0 .0 AR 76 NN ti SE 40 1- 8- 00 T 44 IN ve AR 62 20 20 PH 8 G DE 50 09 10 AR MA 1 MA LE 40 CY SH 71 EA MG 74 # TA BL 71 ET 74 64 03 03 1 30 30 KM 68 Ac 72 -0 -0 .0 AR 92 HB ti 00 5- 5- 00 T 77 Y ve 20 20 20 PH 7 AZAM 31 10 10 AR NE 0 MA S CY LA 71 UR 74 A # P 71 74 ME 00 08 03 6 60 30 KM 68 PA Ac TO 09 -3 -0 .0 AR 80 YN ti OH 30 1- 1- 00 T 99 E ve OL 73 20 20 PH 6 VA OL 31 09 10 AR UG 0 MA HN TA CY W RT 71 RA 74 TE # 50 71 74 MG TA B 00 06 02 5 15 30 KM 88 DU Ac 16 -1 -0 .0 AR 10 NN ti 93 8- 8- 00 T 13 IN ve 47 20 20 PH 1 G 71 09 10 AR MA 8 MA LE CY SH 71 EA 74 # 71 74 Results Labs Lab Lab Date Result Refere Interp Status Commen Order Detail nces retati t Range on Comprehensive metabolic panel (01-27-2017 04:50) Serum = 8.9 8.5-10. complet or 017 mg/dL 1 ed plasma 04:50 calcium measure ment (mas Serum = 57 7-18 complet or 017 mg/dL ed plasma 04:50 urea nitroge n measure men Serum = 0.5 0.2-1.0 complet or 017 mg/dL ed plasma 04:50 total bilirub in measure m Serum = 2.7 3.4-5.0 complet or 017 gm/dL ed plasma 04:50 albumin measure ment (mas Serum = 69 46-116 complet or 017 U/L ed plasma 04:50 alkalin e phospha tase dillan Serum = 0.5 1.1-1.8 complet or 017 ed plasma 04:50 albumin /globul in mass ra Protein = 7.8 6.4-8.2 complet total 017 gm/dL ed ser/mateo 04:50 s ALT = 19 12-78 complet (SGPT) 017 U/L ed ser/mateo 04:50 s Serum = 19 15-37 complet or 017 U/L ed plasma 04:50 asparta te aminotr ansfera Serum = 143 136-145 complet sodium 017 mmoL/L ed measure 04:50 ment Serum = 4.4 3.5-5.1 complet potassi 017 mmoL/L ed um 04:50 measure ment Serum = 146 74-106 complet or 017 mg/dL ed plasma 04:50 glucose measure ment (mas Serum = 5.1 1.3-3.2 complet globuli 017 gm/dL ed n 04:50 measure ment (mass/v olume) Estimat = 51 >60 complet ed 017 ML/MIN ed glomeru 04:50 lar filtrat ion rate (GF Estimat = 68 50-200 complet ion of 017 ML/MIN ed creatin 04:50 ine renal clearan ce Serum = 1.4 0.70-1. complet or 017 mg/dL 30 ed plasma 04:50 creatin ine measure ment ( Carbon = 41 21.0-32 complet dioxide 017 mmoL/L .0 ed 04:50 measure ment Serum = 103 98-107 complet or 017 mmoL/L ed plasma 04:50 chlorid e measure ment (mo Cardiac enzymes (01-27-2017 04:50) Serum = 3.0 0-4.0 complet or 017 U/L ed plasma 04:50 creatin e kinase MB (CK-M Serum = 0.02 0.00-0. complet or 017 ng/mL 06 ed plasma 04:50 troponi n i.cardi ac measu Serum = 43 39-308 complet or 017 U/L ed plasma 04:50 creatin e kinase measure m Serum = 1.3 0.0-3.6 complet or 017 ng/mL ed plasma 04:50 creatin e kinase MB measu Brain natriuretic peptide (01-27-2017 04:50) Brain = 923 0-100 complet natriur 017 pg/mL ed etic 04:50 peptide CBC w auto diff (01-27-2017 04:50) Automat = 0.0 0-0.2 complet ed 017 K/MM3 ed blood 04:50 basophi l count (count/ vo Blood = 7.2 4.8-10. complet leukocy 017 K/MM3 8 ed shelby 04:50 count (number /volume ) Automat = 16.5 11.5-17 complet ed 017 % .5 ed erythro 04:50 cyte distrib ution width Red = 4.10 4.6-6.2 complet blood 017 M/mm3 ed cell 04:50 count Blood = 212 142-424 complet platele 017 K/mm3 ed t count 04:50 Automat = 7.8 7.4-10. complet ed 017 fl 4 ed blood 04:50 platele t mean volume [facility] % = 6.2 % 1.7-9.3 complet 017 ed 04:50 Absolut = 0.4 0.1-1.0 complet e 017 K/mm3 ed monocyt 04:50 e count Automat = 80.3 82.2-97 complet ed 017 fl .8 ed erythro 04:50 cyte mean corpusc ular v Automat = 29.6 31.8-35 complet ed 017 g/dl .4 ed erythro 04:50 cyte mean corpusc ular h Mean = 23.7 27-31.2 complet corpusc 017 pg ed ular 04:50 hemoglo bin (MCH) determ Lymphoc = 8.7 % 10-50 complet yte 017 ed count, 04:50 blood, automat ed Absolut = 0.6 0.7-4.5 complet e 017 K/mm3 ed lymphoc 04:50 yte count Blood = 9.7 14.1-18 complet hemoglo 017 g/dL .0 ed bin 04:50 measure ment (mass/v olum Blood = 32.9 42.0-52 complet hematoc 017 % .0 ed rit 04:50 (volume fractio n) Granulo = 83.3 37.0-80 complet cyte 017 % .0 ed percent 04:50 age Blood = 6.0 1.3-8.0 complet granulo 017 K/mm3 ed cytes 04:50 automat ed count (numb Automat = 1.5 % 0.1-12. complet ed 017 0 ed blood 04:50 eosinop hils/10 0 leukocy t Automat = 0.1 0.0-0.4 complet ed 017 K/mm3 ed blood 04:50 eosinop hil count Baso % 10-14-2 = 0.2 % 0.1-2.0 complet 017 ed 04:50 NT-proBNP SerPl-mCnc (01-11-2017 10:51) NT-proB 2724 0-899 complet BUSBOY 017 pg/mL ed SerPl-m 10:51 Cnc Differential panel, method unspecified - (01-05-2017 11:40) LYMPH 4 % 10% - Low complet 017 50% ed 11:40 Platele NORMAL complet ts 017 ed [Presen 11:40 ce] in Blood by Light microsc opy Influenza virus A+B Ag [Presence] in Unspecified specimen (01-05-2017 11:40) Influen NOT NOT complet za 017 DETECTE DETECTD ed virus A 11:40 D Ag [Presen ce] in Unspeci fied specime n Influen NOT NOT complet za 017 DETECTE DETECTD ed virus B 11:40 D Ag [Presen ce] in Unspeci fied specime n NT-proBNP SerPl-mCnc (12-13-2016 13:36) NT-proB 3518 0-899 complet BUSBOY 017 pg/mL ed SerPl-m 13:36 Cnc Magnesium SerPl-mCnc (09-08-2016 04:24) Magnesi 2.0 1.9-2.4 complet um 017 mg/dL ed SerPl-m 04:24 Cnc
--- OUTSIDE RECORDS SUMMARY | 2017-02-19 12:29 | External Medical Summary Rpt | CCD ---
Author Author , NOREEN SORTO Address Unknown Phone [email or web address] Care Team Providers Care Pipe Stem Sawyer Name Role Phone [facility], Unavailable Unavailable [facility], Unavailable Unavailable [facility] Unavailable Unavailable INC, [facility], Unavailable Unavailable [facility] # Unavailable Unavailable 4847, [facility] # 4847 [facility] [id number] # Unavailable Unavailable 7174, [facility] [id number] # [id number] [place] [facility], Unavailable Unavailable [facility] Unavailable Unavailable [id number] # [phone], [facility] [id number] # 0229 Purpose Continuity of Care Document [...] -0 -2 0. AR 38 RS ti [place] 80 6- 8- 00 T 07 ON [...] 69 20 20 0 PH 1 S OR 61 12 13 AR JE X 9 [...] -0 -3 0. AR 38 RS ti [place] 80 6- 1- 00 T 07 ON [...] 69 20 20 0 PH 1 S OR 61 12 13 AR JE X 9 [...] -0 -0 0. AR 38 RS ti [place] 80 6- 2- 00 T 07 ON [...] 69 20 20 0 PH 1 S OR 61 12 13 AR JE X 9 [...] -0 -0 0. AR 38 RS ti [place] 80 6- 5- 00 T 07 ON [...] 69 20 20 0 PH 1 S OR 61 12 13 AR JE X 9 MA RE 70 CY MY -3 # C 0 FL 48 EX 47 PE N SY RN FU 00 03 04 1 30 30 KM 68 PA Ac RO 37 -0 -0 0. AR 38 RS ti SE 80 7- 5- 00 T 83 ON ve OR 21 20 20 0 PH 2 S [...] 69 20 20 0 PH 1 S OR 61 12 13 AR JE X 9 [...] -0 -0 0. AR 38 RS ti [place] 80 6- 8- 00 T 07 ON [...] 7- 8- 00 T 83 ON ve OR 21 20 20 0 PH 2 S [...] -0 -2 .0 AR 11 YN ti [place] 40 4- 7- 00 T 00 E [...] 4- 7- 00 T 12 ON ve OR 21 20 20 PH 8 S DE 61 11 11 AR JE 0 MA RE 40 CY MY 71 C MG 74 # TA BL 71 ET 74 [place] 00 10 10 0 21 6 KM [...] -0 -2 .0 AR 11 YN ti [place] 30 4- 8- 00 T 00 E [...] G 69 20 20 PH 3 E OR 61 11 11 AR SA X 9 [...] ti SE 80 T 12 ON ve OR 21 20 20 PH 8 S DE [...] 4- 1- 00 T 00 E ve OR 21 20 20 PH 9 VA DE 61 11 11 AR UG 0 MA HN 40 CY W 71 MG 74 # TA BL 71 ET 74 ME 00 01 08 6 60 30 KM 69 PA Ac TO 09 -0 -3 .0 AR 11 YN ti [place] 30 4- 0- 00 T 00 E [...] G 69 20 20 PH 3 E OR 61 11 11 AR SA X 9 [...] 4- 3- 00 T 00 E ve OR 21 20 20 PH 9 VA DE [...] -0 -2 .0 AR 11 YN ti [place] 30 4- 2- 00 T 00 E [...] 11 AR SA E 9 MA RA [place] CY H OP 71 M 74 50 # MC 71 G 74 SP RA Y NO 00 06 07 3 15 30 KM 69 JU Ac VO 16 -2 -[address] ti LO 93 1- 2- 00 T 61 IC ve G 69 20 20 PH 3 E OR 61 11 11 AR SA X 9 [...] 4- 0- 00 T 00 E ve OR 21 20 20 PH 9 VA DE [...] 11 AR SA E 9 MA RA [place] CY H OP 71 M 74 50 # MC 71 G 74 SP RA Y NO 00 06 06 3 15 30 KM 69 JU Ac VO 16 -2 -[address] ti LO 93 1- 2- 00 T 61 IC ve G 69 20 20 PH 3 E OR 61 11 11 AR SA X 9 MA RA 70 CY H -3 71 M 0 74 FL # EX PE 71 N 74 SY RN ME 00 01 06 6 60 30 KM 69 PA Ac TO 09 -0 -2 .0 AR 11 YN ti [place] 30 4- 0- 00 T 00 E [...] 4- 2- 00 T 00 E ve OR 21 20 20 PH 9 VA DE [...] 11 AR SA E 9 MA RA [place] CY H OP 71 M 74 50 # MC 71 G 74 SP RA Y NO 00 12 05 5 15 30 KM 69 KI Ac VO 16 -3 -2 .0 AR 10 NG ti LO 93 0- 4- 00 T 66 ER ve G 69 20 20 PH 5 Y OR 61 10 11 AR JE X 9 MA NN 70 CY IF -3 71 ER 0 74 B FL # EX PE 71 N 74 SY RN ME 00 01 05 6 60 30 KM 69 PA Ac TO 09 -0 -2 .0 AR 11 YN ti [place] 30 4- 4- 00 T 00 E [...] 4- 5- 00 T 00 E ve OR 21 20 20 PH 9 VA DE [...] 11 AR SA E 9 MA RA [place] CY H OP 71 M 74 50 # MC 71 G 74 SP RA Y ME 00 11 04 6 60 30 KM 69 PA Ac TO 09 -0 -2 .0 AR 07 YN ti [place] 30 1- 7- 00 T 00 E [...] G 69 20 20 PH 5 Y OR 61 10 11 AR JE X 9 [...] 4- 8- 00 T 00 E ve OR 21 20 20 PH 9 VA DE [...] -0 -3 .0 AR 07 YN ti [place] 30 1- 0- 00 T 00 E [...] G 69 20 20 PH 5 Y OR 61 10 11 AR JE X 9 [...] 11 AR JE E 9 MA NN [place] CY IF OP 71 ER 74 B [...] 4- 4- 00 T 00 E ve OR 21 20 20 PH 9 VA DE [...] -0 -2 .0 AR 07 YN ti [place] 30 1- 8- 00 T 00 E [...] G 69 20 20 PH 5 Y OR 61 10 11 AR JE X 9 [...] 11 AR JE E 9 MA NN [place] CY IF OP 71 ER 74 B [...] 2- 5- 00 T 18 Y ve OR 21 20 20 PH 5 AZAM DE [...] -0 -2 .0 AR 07 YN ti [place] 80 1- 6- 00 T 00 E [...] G 69 20 20 PH 5 Y OR 61 10 11 AR JE X 9 [...] 11 AR JE E 9 MA NN [place] CY IF OP 71 ER 74 B [...] 2- 6- 00 T 18 Y ve OR 21 20 20 PH 5 AZAM DE [...] G 69 20 20 PH 5 Y OR 61 10 10 AR JE X 9 [...] 10 AR JE E 6 MA NN [place] CY IF OP 71 ER 74 B [...] -0 -2 .0 AR 07 YN ti [place] 80 1- 9- 00 T 00 E [...] 2- 6- 00 T 18 Y ve OR 21 20 20 PH 5 AZAM DE [...] G 69 20 20 PH 8 TH OR 61 10 10 AR X 9 MA RA 70 CY -3 71 ND 0 74 ER FL # S EX PE 71 N 74 SY RN ME 00 11 11 6 60 30 KM 69 PA Ac TO 09 -0 -2 .0 AR 07 YN ti [place] 30 T 00 E ve OL 73 [...] 2- 8- 00 T 18 Y ve OR 21 20 20 PH 5 AZAM DE [...] -0 -0 .0 AR 07 YN ti [place] 30 1- 1- 00 T 00 E [...] 2- 1- 00 T 18 Y ve OR 21 20 20 PH 5 AZAM DE [...] -3 -0 .0 AR 94 YN ti [place] 30 1- 2- 00 T 40 E [...] G 69 20 20 PH 8 TH OR 61 10 10 AR X 9 MA [...] 2- 3- 00 T 18 Y ve OR 21 20 20 PH 5 AZAM DE [...] -3 -0 .0 AR 94 YN ti [place] 30 1- 2- 00 T 40 E [...] 8- 7- 00 T 58 Y ve OR 29 20 20 PH 9 AZAM DE [...] G 69 20 20 PH 3 TH OR 61 10 10 AR X 9 MA [...] -3 -0 .0 AR 94 YN ti [place] 30 1- 2- 00 T 40 E [...] 8- 5- 00 T 58 Y ve OR 29 20 20 PH 9 AZAM DE [...] G 69 20 20 PH 3 TH OR 61 10 10 AR X 9 MA RA 70 CY -3 71 ND 0 74 ER FL # S EX PE 71 N 74 SY RN ME 00 03 07 6 60 30 KM 68 PA Ac TO 09 -3 -0 .0 AR 94 YN ti [place] 30 1- 2- 00 T 40 E [...] 8- 6- 00 T 58 Y ve OR 21 20 20 PH 9 AZAM DE [...] G 69 20 20 PH 3 TH OR 61 10 10 AR X 9 MA RA 70 CY -3 71 ND 0 74 ER FL # S EX PE 71 N 74 SY RN ME 00 06 06 21 6 RI 62 MU Ac TH 60 -0 -0 .0 TE 93 TI ti YL 34 7- 7- 00 98 SO ve [place] 59 20 20 AI ED 31 10 10 D AN NI [address] SO AR EW LO MA M NE CY 4 02 MG 29 0 DO # SE 02 PK 29 ME 00 03 06 6 60 30 KM 68 PA Ac TO 09 -3 -0 .0 AR 94 YN ti [place] 30 1- 1- 00 T 40 E [...] 8- 5- 00 T 58 Y ve OR 21 20 20 PH 9 AZAM DE [...] -3 -2 .0 AR 94 YN ti [place] 30 1- 9- 00 T 40 E [...] G 69 20 20 PH 1 TH OR 61 10 10 AR X 9 MA RA 70 CY -3 71 ND 0 74 ER FL # S EX PE 71 N 74 SY RN FU 63 03 04 5 30 30 KM 68 Ac RO 30 -1 -1 .0 AR 93 HB ti SE 40 8- 4- 00 T 58 Y ve OR 62 20 20 PH 9 AZAM DE [...] -3 -3 .0 AR 94 YN ti [place] 30 1- 1- 00 T 40 E [...] 8- 8- 00 T 58 Y ve OR 62 20 20 PH 9 AZAM DE [...] 1- 8- 00 T 44 IN ve OR 62 20 20 PH 8 G DE [...] -3 -0 .0 AR 80 YN ti [place] 30 1- 1- 00 T 99 E [...] blood 04:50 platele t mean volume dillan [place] % = 6.2 % 1.7-9.3 complet 017 [...] SerPl-mCnc (01-11-2017 10:51) NT-proB 2724 0-899 complet [facility] 017 pg/mL ed SerPl-m 10:51 Cnc Differential [...] SerPl-mCnc (12-13-2016 13:36) NT-proB 3518 0-899 complet TAX SERVICES SPECIALIST 017 pg/mL ed SerPl-m 13:36 Cnc Magnesium SerPl-mCnc (09-08-2016 04:24) Magnesi 2.0 1.9-2.4 complet um 017 mg/dL ed SerPl-m 04:24 Cnc
--- OUTSIDE RECORDS SUMMARY | 2017-02-19 12:39 | External Medical Summary Rpt | CCD ---
Demographics Preferred Language Yoruba Marital Status Unknown Denominational Affiliation Unknown Race Unknown Ethnic Group Unknown Author Author , NOREEN SORTO Address Unknown Phone [email or web address] Care Team Providers Care Distributing Clerk Name Role Phone [facility], Unavailable Unavailable [facility], Unavailable Unavailable [facility] Unavailable Unavailable INC, [facility], Unavailable Unavailable [facility] # Unavailable Unavailable 4847, [facility] # 4847 [facility] [id number] # Unavailable Unavailable 7174, [facility] [id number] # 7174 [place] [facility], [facility], [facility]available Unavailable [facility] Unavailable Unavailable [id number] # [phone], [facility] [id number] # 0229 Purpose Continuity of Care Document [...] 47 MG TA B ME 00 02 06 4 60 30 KM 68 PA Ac TO 37 -0 -2 0. AR 38 RS ti [place] 80 6- 8- 00 T 07 ON [...] 69 20 20 0 PH 1 S MN 61 12 13 AR JE X 9 MA RE 70 CY MY -3 # C 0 FL 48 EX 47 PE N SY RN RO 43 02 06 4 30 30 KM 68 PA Ac PI 54 -0 -2 0. AR 38 RS ti NI 70 6- 8- 00 T 07 ON ve RO 27 20 20 0 PH 7 S LE 31 13 13 AR JE 0 MA RE HC CY MY L # C 4 MG 48 47 TA BL ET AM 00 04 06 4 60 30 [...] -0 -3 0. AR 38 RS ti UT 80 6- 1- 00 T 07 ON [...] 69 20 20 0 PH 1 S MN 61 12 13 AR JE X 9 [...] -0 -0 0. AR 38 RS ti [place] 80 6- 2- 00 T 07 ON [...] 69 20 20 0 PH 1 S MN 61 12 13 AR JE X 9 [...] L 50 48 47 MG TA B FU 00 03 04 1 30 30 KM 68 PA Ac RO 37 -0 -0 0. AR 38 RS ti SE 80 7- 5- 00 T 83 ON ve MN 21 20 20 0 PH 2 S DE 61 13 13 AR JE 0 MA RE 40 CY MY # C MG 48 TA 47 BL ET EN 64 02 04 11 30 30 [...] 69 20 20 0 PH 1 S MN 61 12 13 AR JE X 9 MA RE 70 CY MY -3 # C 0 FL 48 EX 47 PE N SY RN ME 00 02 04 4 60 30 KM 68 PA Ac TO 37 -0 -0 0. AR 38 RS ti UT 80 6- 5- 00 T 07 ON [...] RE CY MY # C 48 47 NO 00 09 03 5 15 30 KM 68 PA Ac VO 16 -2 -0 0. AR 38 RS ti LO 93 0- 8- 00 T 08 ON ve G 69 20 20 0 PH 1 S MN 61 12 13 AR JE X 9 [...] -0 -0 0. AR 38 RS ti UT 80 6- 8- 00 T 07 ON [...] 7- 8- 00 T 83 ON ve MN 21 20 20 0 PH 2 S [...] -0 -2 .0 AR 11 YN ti UT 40 4- 7- 00 T 00 E [...] 4- 7- 00 T 12 ON ve MN 21 20 20 PH 8 S DE 61 11 11 AR JE 0 MA RE 40 CY MY 71 C MG 74 # TA BL 71 ET 74 UT 00 10 10 0 21 6 KM [...] -0 -2 .0 AR 11 YN ti UT 30 4- 8- 00 T 00 E ve OL 73 20 20 PH 6 VA OL 31 11 11 AR UG 0 MA HN TA CY W RT 71 RA 74 TE # 50 71 74 MG TA B NO 00 06 09 3 15 30 KM 69 JU Ac VO 16 -2 -[address] ti LO 93 1 8- 00 T 61 IC ve G 69 20 20 PH 3 E MN 61 11 11 AR SA X 9 [...] .0 AR 26 RS ti AP 90 4 8 T 12 ON ve RI 92 20 20 PH 6 S L 50 11 11 AR JE MA 2 MA RE LE CY MY AT 71 C E 74 10 # MG 71 74 TA B FU 00 09 09 3 30 30 KM 69 PA Ac RO 37 -1 -2 .0 AR 26 RS ti SE 80 4 8 T 12 ON ve MN 21 20 20 PH 8 S DE 61 11 11 AR JE 0 MA RE 40 CY MY 71 C MG 74 # TA BL 71 ET 74 BD 08 12 09 5 10 30 KM 88 KI Ac 29 -3 -2 0. AR 11 NG ti UL 03 0- 6- 00 T 73 ER ve TR 20 [...] .0 SA 97 RR ti HI 68 9 9 00 DE 35 ET ve NE 31 20 20 NA 1 T 50 11 11 LE CLARK 1 PH NA LF AR RD MA R ER CY 15 MG TA BL ET LY 00 09 09 1 90 30 PA 40 DU Ac RI 07 -0 -0 .0 SA 55 RR ti CA 11 9- 9- 00 DE 66 ET ve 01 20 [...] 4- 1- 00 T 00 E ve MN 21 20 20 PH 9 VA DE 61 11 11 AR UG 0 MA HN 40 CY W 71 MG 74 # TA BL 71 ET 74 ME 00 01 08 6 60 30 KM 69 PA Ac TO 09 -0 -3 .0 AR 11 YN ti UT 30 4- 0- 00 T 00 E [...] G 69 20 20 PH 3 E MN 61 11 11 AR SA X 9 [...] 4- 3- 00 T 00 E ve MN 21 20 20 PH 9 VA DE [...] -0 -2 .0 AR 11 YN ti UT 30 4- 2- 00 T 00 E [...] 11 AR SA E 9 MA RA UT CY H OP 71 M 74 50 # MC 71 G 74 SP RA Y NO 00 06 07 3 15 30 KM 69 JU Ac VO 16 -2 -[address] ti LO 93 1- 2- 00 T 61 IC ve G 69 20 20 PH 3 E MN 61 11 11 AR SA X 9 [...] 4- 0- 00 T 00 E ve MN 21 20 20 PH 9 VA DE [...] 11 AR SA E 9 MA RA UT CY H OP 71 M 74 50 # MC 71 G 74 SP RA Y NO 00 06 06 3 15 30 KM 69 JU Ac VO 16 -2 -[address] ti LO 93 1- 2- 00 T 61 IC ve G 69 20 20 PH 3 E MN 61 11 11 AR SA X 9 MA RA 70 CY H -3 71 M 0 74 FL # EX PE 71 N 74 SY RN ME 00 01 06 6 60 30 KM 69 PA Ac TO 09 -0 -2 .0 AR 11 YN ti UT 30 4- 0- 00 T 00 E [...] 4- 2- 00 T 00 E ve MN 21 20 20 PH 9 VA DE [...] 11 AR SA E 9 MA RA UT CY H OP 71 M 74 50 # MC 71 G 74 SP RA Y NO 00 12 05 5 15 30 KM 69 Ac VO 16 -3 -2 .0 AR 10 NG ti LO 93 0- 4- 00 T 66 ER ve G 69 20 20 PH 5 Y MN 61 10 11 AR JE X 9 MA NN 70 CY IF -3 71 ER 0 74 B FL # EX PE 71 N 74 SY RN ME 00 01 05 6 60 30 KM 69 PA Ac TO 09 -0 -2 .0 AR 11 YN ti UT 30 4- 4- 00 T 00 E [...] 4- 5- 00 T 00 E ve MN 21 20 20 PH 9 VA DE [...] 11 AR SA E 9 MA RA UT CY H OP 71 M 74 50 # MC 71 G 74 SP RA Y ME 00 11 04 6 60 30 KM 69 PA Ac TO 09 -0 -2 .0 AR 07 YN ti UT 30 1- 7- 00 T 00 E [...] G 69 20 20 PH 5 Y MN 61 10 11 AR JE X 9 [...] 4- 8- 00 T 00 E ve MN 21 20 20 PH 9 VA DE [...] 12 04 4 12 30 KM 69 KI Ac [...] -0 -3 .0 AR 07 YN ti UT 30 1- 0- 00 T 00 E [...] G 69 20 20 PH 5 Y MN 61 10 11 AR JE X 9 MA NN 70 CY IF -3 71 ER 0 74 B FL # EX PE 71 N 74 SY RN FL 00 12 03 3 16 30 KM 69 KI Ac UT 05 -3 -3 .0 AR 10 NG ti IC 43 0- 0- 00 T 67 ER ve 27 20 20 PH 5 Y ON 09 10 11 AR JE E 9 MA NN UT CY IF OP 71 ER 74 B [...] 4- 4- 00 T 00 E ve MN 21 20 20 PH 9 VA DE [...] -0 -2 .0 AR 07 YN ti UT 30 1- 8- 00 T 00 E [...] G 69 20 20 PH 5 Y MN 61 10 11 AR JE X 9 [...] 11 AR JE E 9 MA NN UT CY IF OP 71 ER 74 B [...] 2- 5- 00 T 18 Y ve MN 21 20 20 PH 5 AZAM DE [...] -0 -2 .0 AR 07 YN ti UT 80 1- 6- 00 T 00 E [...] G 69 20 20 PH 5 Y MN 61 10 11 AR JE X 9 [...] 11 AR JE E 9 MA NN UT CY IF OP 71 ER 74 B [...] 71 BL 74 ET CR 00 06 01 5 30 30 KM 68 Ac ES 31 -2 -0 .0 AR 99 HB ti TO 00 2- 6- 00 T 18 Y ve R 75 20 20 PH 6 AZAM 10 19 10 11 AR NE 0 MA S MG CY LA 71 UR TA 74 A BL # P ET 71 74 FU 00 06 01 5 30 30 KM 68 Ac RO 37 -2 -0 .0 AR 99 HB ti SE 80 2- 6- 00 T 18 Y ve MN 21 20 20 PH 5 AZAM DE [...] TA 74 BL # ET 71 74 NO 00 12 12 5 15 30 KM 69 KI Ac VO 16 -3 -3 .0 AR 10 NG ti LO 93 0- 0- 00 T 66 ER ve G 69 20 20 PH 5 Y MN 61 10 10 AR JE X 9 [...] 10 AR JE E 6 MA NN UT CY IF OP 71 ER 74 B [...] -0 -2 .0 AR 07 YN ti UT 80 1- 9- 00 T 00 E [...] 2- 6- 00 T 18 Y ve MN 21 20 20 PH 5 AZAM DE [...] AR 99 HB ti AP 30 2 9 00 T 18 Y ve RI 02 20 20 PH 4 AZAM L 90 10 10 AR NE MA 1 MA S LE CY LA AT 71 UR E 74 A 20 # P MG 71 74 TA B NO 00 09 11 1 15 30 KM 69 BH Ac VO 16 -2 -2 .0 AR 04 AG ti LO 93 3 9 00 T 56 RA ve G 69 20 20 PH 8 TH MN 61 10 10 AR X 9 MA RA 70 CY -3 71 ND 0 74 ER FL # S EX PE 71 N 74 SY RN ME 00 11 11 6 60 30 KM 69 PA Ac TO 09 -0 -2 .0 AR 07 YN ti UT 30 T 00 E ve OL 73 20 20 PH 4 VA OL 31 10 10 AR UG 0 MA HN TA CY W RT 71 RA 74 TE # 50 71 74 MG TA B BD 08 03 11 10 30 KM 88 Ac 29 -1 -2 0. AR 11 HB ti UL 03 T 64 Y ve TR 20 20 20 0 PH 8 AZAM A- 10 10 10 AR NE FI 9 MA S NE CY LA 71 UR PE 74 A N # P ND L 71 8M 74 MX 31 G RO 00 06 11 5 30 30 KM 68 Ac PI 05 -2 -0 .0 AR 99 HB ti NI 40 8- T 18 Y ve RO 12 20 [...] 2- 8- 00 T 18 Y ve MN 21 20 20 PH 5 AZAM DE 61 10 10 AR NE 0 MA S 40 CY LA 71 UR MG 74 A # P TA BL 71 ET 74 CR 00 06 11 5 30 30 KM 68 Ac ES 31 -2 -0 .0 AR 99 HB ti TO 00 8 T 18 Y ve R 75 20 [...] BL 74 ET # 71 74 OX 00 11 11 0 86 30 PA 20 LA Ac YC 40 -0 -0 .0 SA 93 RS ti OD 60 5- 5- 00 DE 13 ON ve ON 52 20 20 NA 5 E- 30 10 10 LA AC 1 PH UR ET AR EN AM MA K IN CY OP HE N 10 -3 25 TI 55 11 11 1 60 30 PA 61 LA Ac ZA 11 -0 -0 .0 SA 06 RS ti NI 10 5- 5- 00 DE 48 ON ve DI 17 20 20 NA 0 NE 91 10 10 LA 0 PH UR HC AR EN L MA K 2 CY MG TA BL ET DI 00 11 11 6 30 30 [...] -0 -0 .0 AR 07 YN ti UT 30 1- 1- 00 T 00 E ve OL 73 20 20 PH 4 VA OL 31 10 10 AR UG 0 MA HN TA CY W RT 71 RA 74 TE # 50 71 74 MG TA B EN 00 06 10 5 60 30 KM 68 Ac AL 09 -2 -2 .0 AR 99 HB ti AP 30 2 9 00 T 18 Y ve RI 02 [...] 2- 1- 00 T 18 Y ve MN 21 20 20 PH 5 AZAM DE [...] -3 -0 .0 AR 94 YN ti UT 30 1- 2- 00 T 40 E [...] G 69 20 20 PH 8 TH MN 61 10 10 AR X 9 MA [...] 2- 3- 00 T 18 Y ve MN 21 20 20 PH 5 AZAM DE [...] -3 -0 .0 AR 94 YN ti UT 30 1- 2- 00 T 40 E [...] 8- 7- 00 T 58 Y ve MN 29 20 20 PH 9 AZAM DE [...] G 69 20 20 PH 3 TH MN 61 10 10 AR X 9 MA [...] -3 -0 .0 AR 94 YN ti UT 30 1- 2- 00 T 40 E [...] 8- 5- 00 T 58 Y ve MN 29 20 20 PH 9 AZAM DE [...] G 69 20 20 PH 3 TH MN 61 10 10 AR X 9 MA RA 70 CY -3 71 ND 0 74 ER FL # S EX PE 71 N 74 SY RN ME 00 03 07 6 60 30 KM 68 PA Ac TO 09 -3 -0 .0 AR 94 YN ti UT 30 1- 2- 00 T 40 E [...] 8- 6- 00 T 58 Y ve MN 21 20 20 PH 9 AZAM DE [...] G 69 20 20 PH 3 TH MN 61 10 10 AR X 9 MA RA 70 CY -3 71 ND 0 74 ER FL # S EX PE 71 N 74 SY RN ME 00 06 06 21 6 RI 62 MU Ac TH 60 -0 -0 .0 TE 93 TI ti YL 34 7- 7- 00 98 SO ve UT 59 20 20 AI ED 31 10 10 D AN NI [address] SO AR EW LO MA M NE CY 4 02 MG 29 0 DO # SE 02 PK 29 ME 00 03 06 6 60 30 KM 68 PA Ac TO 09 -3 -0 .0 AR 94 YN ti UT 30 1- 1- 00 T 40 E [...] 8- 5- 00 T 58 Y ve MN 21 20 20 PH 9 AZAM DE [...] -3 -2 .0 AR 94 YN ti UT 30 1- 9- 00 T 40 E [...] Ac RI 07 -2 -2 .0 ON ND ti CA 11 6- 6- 00 [...] Y 9 R [address] RO HC 1 UG BE L RT 50 CO E MP MG AN Y TA IN BL C ET DO 00 04 04 0 30 30 EC 73 WI Ac XE 37 -2 -2 .0 ON 20 ND ti PI 83 6- 6- 00 OM 57 SO ve N 12 20 20 Y 8 R [address] RO 1 UG BE MG RT CO E CA MP PS AN UL Y E IN C BA 00 04 04 0 60 10 EC 73 WI Ac NO 90 -2 -2 .0 ON 20 ND ti PH 45 6- 6- 00 OM 57 SO ve EN 55 20 20 Y 9 R [address] RO 25 9 UG BE RT MG CO E MP TA AN BL Y ET IN C NO 00 04 04 15 30 KM 68 BH Ac VO 16 -2 -2 .0 AR 95 AG ti LO 93 0- 6- 00 T 61 RA ve G 69 20 20 PH 1 TH MN 61 10 10 AR X 9 MA RA 70 CY -3 71 ND 0 74 ER FL # S EX PE 71 N 74 SY RN FU 63 03 04 5 30 30 KM 68 Ac RO 30 -1 -1 .0 AR 93 HB ti SE 40 8- 4- 00 T 58 Y ve MN 62 20 20 PH 9 AZAM DE [...] -0 .0 AR 93 HB ti 00 8 3 00 T 59 Y ve 20 20 20 PH 9 AZAM 31 10 10 AR NE 0 MA S CY LA 71 UR 74 A # P 71 74 ME 00 03 03 6 60 30 KM 68 PA Ac TO 09 -3 -3 .0 AR 94 YN ti UT 30 T 40 E ve OL 73 20 20 PH 6 VA OL 31 10 10 AR UG 0 MA HN TA CY W RT 71 RA 74 TE # 50 71 74 MG TA B TR 65 03 03 90 30 EC 46 WI Ac AM 16 -2 -2 .0 ON ND ti AD 20 5- 5 OM 94 SO ve OL 62 20 20 Y 6 R [address] RO HC 1 UG BE L RT 50 CO E MP MG AN Y TA IN BL C ET LY 00 03 03 90 30 EC 46 WI Ac RI 07 -2 -2 .0 ON ti CA 11 5 OM 94 SO ve 01 20 20 Y 7 R [address] RO 0 8 UG BE MG RT CO E CA MP PS AN UL Y E IN C DO 00 03 03 30 30 EC 73 WI Ac XE 37 -2 -2 .0 ON ti PI 83 5- 5 00 OM 93 SO ve N 12 20 20 Y 6 R [address] RO 1 UG BE MG RT CO E CA MP PS AN UL Y E IN C BA 00 03 03 60 10 EC 73 WI Ac NO 90 -2 -2 .0 ON ti PH 45 5- 5 OM 93 SO ve EN 55 20 20 Y 7 R [address] RO 25 9 UG BE RT MG CO E MP TA AN BL Y ET IN C CLARK 53 03 03 10 5 EC 73 WI Ac LF 74 -2 -2 .0 ON ti AM 60 5- 5- 00 OM 93 SO ve ET 27 20 20 Y 8 R HO [address] RO XA 5 UG BE ZO RT LE CO E -T MP MP AN Y DS IN C TA BL ET 00 03 03 5 15 30 KM 88 Ac 16 -1 -1 .0 AR 10 HB ti 93 T 89 Y ve 47 20 20 PH 1 AZAM 71 10 10 AR NE 8 MA S CY LA 71 UR 74 A # P 71 74 FU 63 03 03 5 30 30 KM 68 Ac RO 30 -1 -1 .0 AR 93 HB ti SE 40 8- 8- 00 T 58 Y ve MN 62 20 20 PH 9 AZAM DE [...] AR 87 NN ti 25 1- 6- T 88 IN ve 66 20 20 PH 2 G 46 09 10 AR MA 0 MA LE CY SH 71 EA 74 # 71 74 CR 00 01 03 5 30 30 KM 68 DU Ac ES 31 -1 -1 .0 AR 89 NN ti TO 00 5- 6- T 78 IN ve R 75 20 [...] 1- 8- 00 T 44 IN ve MN 62 20 20 PH 8 G DE [...] -3 -0 .0 AR 80 YN ti UT 30 1- 1- 00 T 99 E [...]
--- OUTSIDE RECORDS SUMMARY | 2017-02-19 12:39 | External Medical Summary Rpt | CCD ---
Demographics Preferred Language Malay Marital Status Unknown Oriental Orthodox Affiliation Unknown Race Unknown Ethnic Group Unknown Author Author , NOREEN SORTO Address Unknown Phone [email or web address] Care Team Providers Care Commercial Lending Assistant Name Role Phone [facility] Unavailable Unavailable [facility], [facility]available Unavailable [facility] Unavailable [facility], [facility], Unavailable Unavailable [facility] # Unavailable Unavailable [id number], [id number] # Unavailable Unavailable [id number], [id number] [id number] [facility], [facility], [facility]available Unavailable [facility] Unavailable Unavailable [id number] # [phone], [facility] [id number] # [id number] Purpose Continuity of Care Document [...] -0 -2 0. AR 38 RS ti MD 80 6- 8- 00 T 07 ON [...] 69 20 20 0 PH 1 S MA 61 12 13 AR JE X 9 [...] -0 -3 0. AR 38 RS ti MD 80 6- 1- 00 T 07 ON [...] 69 20 20 0 PH 1 S MA 61 12 13 AR JE X 9 [...] -0 -0 0. AR 38 RS ti MD 80 6- 2- 00 T 07 ON [...] 69 20 20 0 PH 1 S MA 61 12 13 AR JE X 9 [...] 7- 5- 00 T 83 ON ve MA 21 20 20 0 PH 2 S [...] 69 20 20 0 PH 1 S MA 61 12 13 AR JE X 9 MA RE 70 CY MY -3 # C 0 FL 48 EX 47 PE N SY RN ME 00 02 04 4 60 30 KM 68 PA Ac TO 37 -0 -0 0. AR 38 RS ti MD 80 6- 5- 00 T 07 ON [...] 69 20 20 0 PH 1 S MA 61 12 13 AR JE X 9 [...] -0 -0 0. AR 38 RS ti MD 80 6- 8- 00 T 07 ON [...] 7- 8- 00 T 83 ON ve MA 21 20 20 0 PH 2 S [...] -0 -2 .0 AR 11 YN ti MD 40 4- 7- 00 T 00 E [...] 4- 7- 00 T 12 ON ve MA 21 20 20 PH 8 S DE 61 11 11 AR JE 0 MA RE 40 CY MY 71 C MG 74 # TA BL 71 ET 74 MD 00 10 10 0 21 6 KM [...] -0 -2 .0 AR 11 YN ti MD 30 4- 8- 00 T 00 E [...] G 69 20 20 PH 3 E MA 61 11 11 AR SA X 9 [...] 80 4 8 T 12 ON ve MA 21 20 20 PH 8 S DE [...] 4- 1- 00 T 00 E ve MA 21 20 20 PH 9 VA DE 61 11 11 AR UG 0 MA HN 40 CY W 71 MG 74 # TA BL 71 ET 74 ME 00 01 08 6 60 30 KM 69 PA Ac TO 09 -0 -3 .0 AR 11 YN ti MD 30 4- 0- 00 T 00 E [...] G 69 20 20 PH 3 E MA 61 11 11 AR SA X 9 [...] 4- 3- 00 T 00 E ve MA 21 20 20 PH 9 VA DE [...] -0 -2 .0 AR 11 YN ti MD 30 4- 2- 00 T 00 E [...] 11 AR SA E 9 MA RA MD CY H OP 71 M 74 50 # MC 71 G 74 SP RA Y NO 00 06 07 3 15 30 KM 69 JU Ac VO 16 -2 -[address] ti LO 93 1- 2- 00 T 61 IC ve G 69 20 20 PH 3 E MA 61 11 11 AR SA X 9 [...] 4- 0- 00 T 00 E ve MA 21 20 20 PH 9 VA DE [...] 11 AR SA E 9 MA RA MD CY H OP 71 M 74 50 # MC 71 G 74 SP RA Y NO 00 06 06 3 15 30 KM 69 JU Ac VO 16 -2 -[address] ti LO 93 1- 2- 00 T 61 IC ve G 69 20 20 PH 3 E MA 61 11 11 AR SA X 9 MA RA 70 CY H -3 71 M 0 74 FL # EX PE 71 N 74 SY RN ME 00 01 06 6 60 30 KM 69 PA Ac TO 09 -0 -2 .0 AR 11 YN ti MD 30 4- 0- 00 T 00 E [...] 4- 2- 00 T 00 E ve MA 21 20 20 PH 9 VA DE [...] 11 AR SA E 9 MA RA MD CY H OP 71 M 74 50 # MC 71 G 74 SP RA Y NO 00 12 05 5 15 30 KM 69 Ac VO 16 -3 -2 .0 AR 10 NG ti LO 93 0- 4- 00 T 66 ER ve G 69 20 20 PH 5 Y MA 61 10 11 AR JE X 9 MA NN 70 CY IF -3 71 ER 0 74 B FL # EX PE 71 N 74 SY RN ME 00 01 05 6 60 30 KM 69 PA Ac TO 09 -0 -2 .0 AR 11 YN ti MD 30 4- 4- 00 T 00 E [...] 4- 5- 00 T 00 E ve MA 21 20 20 PH 9 VA DE [...] 11 AR SA E 9 MA RA MD CY H OP 71 M 74 50 # MC 71 G 74 SP RA Y ME 00 11 04 6 60 30 KM 69 PA Ac TO 09 -0 -2 .0 AR 07 YN ti MD 30 1- 7- 00 T 00 E [...] G 69 20 20 PH 5 Y MA 61 10 11 AR JE X 9 [...] 4- 8- 00 T 00 E ve MA 21 20 20 PH 9 VA DE [...] -0 -3 .0 AR 07 YN ti MD 30 1- 0- 00 T 00 E [...] G 69 20 20 PH 5 Y MA 61 10 11 AR JE X 9 [...] 11 AR JE E 9 MA NN MD CY IF OP 71 ER 74 B [...] 4- 4- 00 T 00 E ve MA 21 20 20 PH 9 VA DE [...] -0 -2 .0 AR 07 YN ti MD 30 1- 8- 00 T 00 E [...] G 69 20 20 PH 5 Y MA 61 10 11 AR JE X 9 [...] 11 AR JE E 9 MA NN MD CY IF OP 71 ER 74 B [...] 2- 5- 00 T 18 Y ve MA 21 20 20 PH 5 AZAM DE [...] -0 -2 .0 AR 07 YN ti MD 80 1- 6- 00 T 00 E [...] G 69 20 20 PH 5 Y MA 61 10 11 AR JE X 9 [...] 11 AR JE E 9 MA NN MD CY IF OP 71 ER 74 B [...] 2- 6- 00 T 18 Y ve MA 21 20 20 PH 5 AZAM DE [...] G 69 20 20 PH 5 Y MA 61 10 10 AR JE X 9 [...] 10 AR JE E 6 MA NN MD CY IF OP 71 ER 74 B [...] -0 -2 .0 AR 07 YN ti MD 80 1- 9- 00 T 00 E [...] 2- 6- 00 T 18 Y ve MA 21 20 20 PH 5 AZAM DE [...] G 69 20 20 PH 8 TH MA 61 10 10 AR X 9 MA RA 70 CY -3 71 ND 0 74 ER FL # S EX PE 71 N 74 SY RN ME 00 11 11 6 60 30 KM 69 PA Ac TO 09 -0 -2 .0 AR 07 YN ti MD 30 T 00 E ve OL 73 [...] 2- 8- 00 T 18 Y ve MA 21 20 20 PH 5 AZAM DE [...] -0 -0 .0 AR 07 YN ti MD 30 1- 1- 00 T 00 E [...] 2- 1- 00 T 18 Y ve MA 21 20 20 PH 5 AZAM DE [...] -3 -0 .0 AR 94 YN ti MD 30 1- 2- 00 T 40 E [...] G 69 20 20 PH 8 TH MA 61 10 10 AR X 9 MA [...] 2- 3- 00 T 18 Y ve MA 21 20 20 PH 5 AZAM DE [...] -3 -0 .0 AR 94 YN ti MD 30 1- 2- 00 T 40 E [...] 8- 7- 00 T 58 Y ve MA 29 20 20 PH 9 AZAM DE [...] G 69 20 20 PH 3 TH MA 61 10 10 AR X 9 MA [...] -3 -0 .0 AR 94 YN ti MD 30 1- 2- 00 T 40 E [...] 8- 5- 00 T 58 Y ve MA 29 20 20 PH 9 AZAM DE [...] G 69 20 20 PH 3 TH MA 61 10 10 AR X 9 MA RA 70 CY -3 71 ND 0 74 ER FL # S EX PE 71 N 74 SY RN ME 00 03 07 6 60 30 KM 68 PA Ac TO 09 -3 -0 .0 AR 94 YN ti MD 30 1- 2- 00 T 40 E [...] 8- 6- 00 T 58 Y ve MA 21 20 20 PH 9 AZAM DE [...] G 69 20 20 PH 3 TH MA 61 10 10 AR X 9 MA RA 70 CY -3 71 ND 0 74 ER FL # S EX PE 71 N 74 SY RN ME 00 06 06 21 6 RI 62 MU Ac TH 60 -0 -0 .0 TE 93 TI ti YL 34 7- 7- 00 98 SO ve MD 59 20 20 AI ED 31 10 10 D AN NI [address] SO AR EW LO MA M NE CY 4 02 MG 29 0 DO # SE 02 PK 29 ME 00 03 06 6 60 30 KM 68 PA Ac TO 09 -3 -0 .0 AR 94 YN ti MD 30 1- 1- 00 T 40 E [...] 8- 5- 00 T 58 Y ve MA 21 20 20 PH 9 AZAM DE [...] -3 -2 .0 AR 94 YN ti MD 30 1- 9- 00 T 40 E [...] G 69 20 20 PH 1 TH MA 61 10 10 AR X 9 MA RA 70 CY -3 71 ND 0 74 ER FL # S EX PE 71 N 74 SY RN FU 63 03 04 5 30 30 KM 68 Ac RO 30 -1 -1 .0 AR 93 HB ti SE 40 8- 4- 00 T 58 Y ve MA 62 20 20 PH 9 AZAM DE [...] -3 -3 .0 AR 94 YN ti MD 30 T 40 E ve OL 73 [...] 8- 8- 00 T 58 Y ve MA 62 20 20 PH 9 AZAM DE [...] 1- 8- 00 T 44 IN ve MA 62 20 20 PH 8 G DE [...] -3 -0 .0 AR 80 YN ti MD 30 1- 1- 00 T 99 E [...]
--- OUTSIDE RECORDS SUMMARY | 2017-02-19 12:43 | External Medical Summary Rpt | CCD ---
Demographics Preferred Language Turkmen Marital Status Unknown Hindu Affiliation Unknown Race Unknown Ethnic Group Unknown Author Author , HUSSAIN SORTO Address Unknown Phone Immunization Unable to retrieve immunization data due to connection failure with Immunization Registry. Please try again later.
--- OUTSIDE RECORDS SUMMARY | 2017-02-19 12:43 | External Medical Summary Rpt | CCD ---
Demographics Preferred Language Guamanian Marital Status Unknown Mormon Affiliation Unknown Race Unknown Ethnic Group Unknown Author Author , HUSSAIN SORTO Address Unknown Phone Immunization Unable to retrieve immunization data due to connection failure with Immunization Registry. Please try again later.
--- OUTSIDE RECORDS SUMMARY | 2017-02-19 12:44 | External Medical Summary Rpt ---
Author Author [employer] Coats, [employer] Organization [employer] Address Unknown Phone Unavailable Payers Section Payer Plan Name Group ID Member ID Coverage Coverage Start End Date Date E04^MARIAN [id number] No No MEDICAL MEDICAL 3 informati informati ASSISTANC ASSISTANC on in on in E E^PLANID source source data data Results Natriutietic peptide B [Mass/volume] in Serum or Plasma Observa Value Referen Units Interpr Notes Date tion ce etation Range Natriutie 0 - 100 pg/mL High No Jan 14 tic informati 2016 4:50 peptide B on in AM source [Mass/vol data ume] in Serum or Plasma Cardiac enzymes Observa Value Referen Units Interpr Notes Date tion ce etation Range Creatine 0 - 4.0 U/L Normal No Jan 27 kinase.MB informati 2016 4:50 /Creatine on in AM source kinase.to data weston [Ratio] in Serum or Plasma Creatine 0.0 - 3.6 ng/mL Normal No Jan 27 kinase.MB informati 2016 4:50 on in AM [Mass/vol source ume] in data Serum or Plasma Creatine 39 - 308 U/L Normal No Jan 27 kinase informati 2017 4:50 [Enzymati on in AM c source activity/ data volume] in Serum or Plasma Troponin 0.00 - ng/mL Normal No Jan 27 I.cardiac 0.06 informati 2016 4:50 on in AM [Mass/vol source ume] in data Serum or Plasma Comprehensive metabolic 2000 panel in Serum or Plasma Observa Value Referen Units Interpr Notes Date tion ce etation Range Albumin/G 1.1 - 1.8 No Low No Jan 27 lobulin informati informati 2016 4:50 [Mass on in on in AM ratio] in source source Serum or data data Plasma Albumin 3.4 - 5.0 gm/dL Low No Jan 14 [Mass/vol informati 2017 4:50 ume] in on in AM Serum or source Plasma data Alkaline 46 - 116 U/L Normal No Jan 14 phosphata informati 2017 4:50 se on in AM [Enzymati source c data activity/ volume] in Serum or Plasma Bilirubin 0.2 - 1.0 mg/dL Normal No Jan 14 .total informati 2017 4:50 [Mass/vol on in AM ume] in source Serum or data Plasma Urea 7 - 18 mg/dL High No Jan 14 nitrogen informati 2016 4:50 [Mass/vol on in AM ume] in source Serum or data Plasma Calcium 8.5 - mg/dL Normal No Jan 14 [Mass/vol 10.1 informati 2017 4:50 ume] in on in AM Serum or source Plasma data Chloride 98 - 107 mmoL/L Normal No Jan 14 [Moles/vo informati 2016 4:50 lume] in on in AM Serum or source Plasma data Carbon 21.0 - mmoL/L High Oct 14 dioxide, 32.0 alert NOTIFICAT 2017 4:50 total ION AM [Moles/vo RESULT lume] in Serum or Plasma Creatinin 0.70 - mg/dL High No Jan 14 e 1.30 informati 2017 4:50 [Mass/vol on in AM ume] in source Serum or data Plasma Creatinin 50 - 200 ML/MIN Normal No Jan 14 e renal informati 2016 4:50 clearance on in AM source predicted data by Cockcroft -Gault formula Estimated >60 ML/MIN No REFERENCE Oct 14 informati RANGE: 2017 4:50 glomerula on in >60 AM r source ML/MIN/1. filtratio data 73 SQUARE n rate METERSIf (GF this patient is -A merican, then multiply theresult by 1.210. Globulin 1.3 - 3.2 gm/dL High No Jan 14 [Mass/vol informati 2017 4:50 ume] in on in AM Serum source data Glucose 74 - 106 mg/dL High No Jan 14 [Mass/vol informati 2016 4:50 ume] in on in AM Serum or source Plasma data Potassium 3.5 - 5.1 mmoL/L Normal No Oct 14 informati 2017 4:50 [Moles/vo on in AM lume] in source Serum or data Plasma Sodium 136 - 145 mmoL/L Normal No Jan 14 [Moles/vo informati 2017 4:50 lume] in on in AM Serum or source Plasma data Aspartate 15 - 37 U/L Normal No Jan 27 inform2016 4:50 aminotran on in AM sferase source [Enzymati data c activity/ volume] in Serum or Plasma Alanine 12 - 78 U/L Normal No Jan 27 aminotran 2016 4:50 sferase on in AM [Enzymati source c data activity/ volume] in Serum or Plasma Protein 6.4 - 8.2 gm/dL Normal No Jan 27 [Mass/vol 2016 4:50 ume] in on in AM Serum or source Plasma data CBC W Auto Differential panel in Blood Observa Value Referen Units Interpr Notes Date tion ce etation Range Basophils 0 - 0.2 K/MM3 Normal No Jan 272016 4:50 [#/volume on in AM ] in source Blood by data Automated count Basophils 0.1 - 2.0 % Normal No Jan 27 inform2016 4:50 leukocyte on in AM s in source Blood by data Automated count Eosinophi 0.0 - 0.4 K/mm3 Normal No Jan 27 ls ati 2016 4:50 [#/volume on in AM ] in source Blood by data Automated count Eosinophi 0.1 - % Normal No Jan 27 ls/100 12.0 informati 2016 4:50 leukocyte on in AM s in source Blood by data Automated count Granulocy 1.3 - 8.0 K/mm3 Normal No Jan 27 [place] ati 2016 4:50 [#/volume on in AM ] in source Blood by data Automated count Granulocy 37.0 - % High No Jan 27 [place]/100 80.0 informati 2016 4:50 leukocyte on in AM s in source Blood by data Automated count Hematocri 42.0 - % Low No Jan 27 t [Volume 52.0 ati 2016 4:50 on in AM Fraction] source of Blood data Hemoglobi 14.1 - g/dL Low No Jan 27 n 18.0 informati 2016 4:50 [Mass/vol on in AM ume] in source Blood data Lymphocyt 0.7 - 4.5 K/mm3 Low No Jan 27 es informati 2016 4:50 [#/volume on in AM ] in source Unspecifi data ed specimen by Automated count Lymphocyt 10 - 50 % Low Jan 27 es informati 2016 4:50 [#/volume on in AM ] in source Unspecifi data ed specimen by Automated count Erythrocy 27 - 31.2 pg Low No Jan 14 te mean inform2016 4:50 corpuscul on in AM ar source hemoglobi data n [Entitic mass] Erythrocy 31.8 - g/dl Low No Jan 27 te mean 35.4 inform2016 4:50 corpuscul on in AM ar source hemoglobi data n concentra tion [Mass/vol ume] by Automated count Erythrocy 82.2 - fl Low No Jan 27 te mean 97.8 informati 2016 4:50 corpuscul on in AM ar volume source [Entitic data volume] by Automated count Monocytes 0.1 - 1.0 K/mm3 Normal No Jan 14 informati 2016 4:50 [#/volume on in AM ] in source Blood by data Automated count Monocytes 1.7 - 9.3 % Normal No Jan 14 /100 informati 2016 4:50 leukocyte on in AM s in source Blood by data Automated count Platelet 7.4 - fl Normal No Jan 27 mean 10.4 informati 2016 4:50 volume on in AM [Entitic source volume] data in Blood by Automated count Platelets 142 - 424 K/mm3 Normal No Jan 14 inform2016 4:50 [#/volume on in AM ] in source Blood data Erythrocy 4.6 - 6.2 M/mm3 Low No Jan 27 [place] informati 2016 4:50 [#/volume on in AM ] in source Amniotic data fluid Erythrocy 11.5 - % Normal No Jan 27 te 17.5 informati 2016 4:50 distribut on in AM ion width source [Entitic data volume] by Automated count Leukocyte 4.8 - K/MM3 Normal No Jan 27 s 10.8 informati 2016 4:50 [#/volume on in AM ] in source Blood data Natriutietic peptide B [Mass/volume] in Serum or Plasma Observa Value Referen Units Interpr Notes Date tion ce etation Range Natriutie 0 - 100 pg/mL High No Jan 05 tic 2016 peptide B on in 11:40 AM source [Mass/vol data ume] in Serum or Plasma Cardiac enzymes Observa Value Referen Units Interpr Notes Date tion ce etation Range Creatine 0 - 4.0 U/L Normal No Jan 05 kinase.MB 2016 /Creatine on in 11:40 AM source kinase.to data weston [Ratio] in Serum or Plasma Creatine 0.0 - 3.6 ng/mL Normal No Sep 22 kinase.MB informati 2017 on in 11:40 AM [Mass/vol source ume] in data Serum or Plasma Creatine 39 - 308 U/L Normal No Sep 22 kinase informati 2017 [Enzymati on in 11:40 AM c source activity/ data volume] in Serum or Plasma Troponin 0.00 - ng/mL Normal No Sep 22 I.cardiac 0.06 informati 2017 on in 11:40 AM [Mass/vol source ume] in data Serum or Plasma Comprehensive metabolic 2000 panel in Serum or Plasma Observa Value Referen Units Interpr Notes Date tion ce etation Range Albumin/G 1.1 - 1.8 No Low No Sep 22 lobulin informati informati 2017 [Mass on in on in 11:40 AM ratio] in source source Serum or data data Plasma Albumin 3.4 - 5.0 gm/dL Low No Sep 22 [Mass/vol informati 2017 ume] in on in 11:40 AM Serum or source Plasma data Alkaline 46 - 116 U/L Normal No Sep 22 phosphata informati 2017 se on in 11:40 AM [Enzymati source c data activity/ volume] in Serum or Plasma Bilirubin 0.2 - 1.0 mg/dL Normal No Sep 22 .total informati 2016 [Mass/vol on in 11:40 AM ume] in source Serum or data Plasma Urea 7 - 18 mg/dL High No Sep 22 nitrogen informati 2016 [Mass/vol on in 11:40 AM ume] in source Serum or data Plasma Calcium 8.5 - mg/dL Normal No Sep [Mass/vol 10.1 informati 2016 ume] in on in 11:40 AM Serum or source Plasma data Chloride 98 - 107 mmoL/L Normal No Sep 22 [Moles/vo informati 2017 lume] in on in 11:40 AM Serum or source Plasma data Carbon 21.0 - mmoL/L High No Sep 22 dioxide, 32.0 informati 2017 total on in 11:40 AM [Moles/vo source lume] in data Serum or Plasma Creatinin 0.70 - mg/dL High No Sep 22 e 1.30 informati 2017 [Mass/vol on in 11:40 AM ume] in source Serum or data Plasma Creatinin 50 - 200 ML/MIN Normal No Sep 22 e renal informati 2017 clearance on in 11:40 AM source predicted data by Cockcroft -Gault formula Estimated >60 ML/MIN No REFERENCE Sep 22 informati RANGE: 2017 glomerula on in >60 11:40 AM r source ML/MIN/1. filtratio data 73 SQUARE n rate METERSIf (GF this patient is -A merican, then multiply theresult by 1.210. Globulin 1.3 - 3.2 gm/dL High No Sep 22 [Mass/vol informati 2016 ume] in on in 11:40 AM Serum source data Glucose 74 - 106 mg/dL High No Sep 22 [Mass/vol informati 2016 ume] in on in 11:40 AM Serum or source Plasma data Potassium 3.5 - 5.1 mmoL/L Normal No Sep 22 inform2016 [Moles/vo on in 11:40 AM lume] in source Serum or data Plasma Sodium 136 - 145 mmoL/L Normal No Sep 22 [Moles/vo informati 2016 lume] in on in 11:40 AM Serum or source Plasma data Aspartate 15 - 37 U/L Normal No Sep 22 inform 2017 aminotran on in 11:40 AM sferase source [Enzymati data c activity/ volume] in Serum or Plasma Alanine 12 - 78 U/L Normal No Sep 22 aminotran inform 2017 sferase on in 11:40 AM [Enzymati source c data activity/ volume] in Serum or Plasma Protein 6.4 - 8.2 gm/dL Normal No Sep 22 [Mass/vol informati 2016 ume] in on in 11:40 AM Serum or source Plasma data CBC W Auto Differential panel in Blood Observa Value Referen Units Interpr Notes Date tion ce etation Range Basophils 0 - 0.2 K/MM3 Normal No Sep 22 inform2016 [#/volume on in 11:40 AM ] in source Blood by data Automated count Basophils 0.1 - 2.0 % Normal No Sep 22 /100 informati 2016 leukocyte on in 11:40 AM s in source Blood by data Automated count Eosinophi 0.0 - 0.4 K/mm3 Normal No Sep 22 ls informati 2016 [#/volume on in 11:40 AM ] in source Blood by data Automated count Eosinophi 0.1 - % Normal No Sep 22 ls/100 12.0 informati 2016 leukocyte on in 11:40 AM s in source Blood by data Automated count Granulocy 1.3 - 8.0 K/mm3 Normal No Sep 22 [place] informati 2017 [#/volume on in 11:40 AM ] in source Blood by data Automated count Granulocy 37.0 - % High No Sep 22 [place]/100 80.0 inform2016 leukocyte on in 11:40 AM s in source Blood by data Automated count Hematocri 42.0 - % Low No Sep 22 t [Volume 52.0 informati 2016 on in 11:40 AM Fraction] source of Blood data Hemoglobi 14.1 - g/dL Low No Sep 22 n 18.0 informati 2016 [Mass/vol on in 11:40 AM ume] in source Blood data Lymphocyt 0.7 - 4.5 K/mm3 Low No Sep 22 es informati 2017 [#/volume on in 11:40 AM ] in source Unspecifi data ed specimen by Automated count Lymphocyt 10 - 50 % Low No Sep 22 es inform2016 [#/volume on in 11:40 AM ] in source Unspecifi data ed specimen by Automated count Erythrocy 27 - 31.2 pg Low No Sep 22 te mean inform2016 corpuscul on in 11:40 AM ar source hemoglobi data n [Entitic mass] Erythrocy 31.8 - g/dl Low No Sep 22 te mean 35.4 informati 2017 corpuscul on in 11:40 AM ar source hemoglobi data n concentra tion [Mass/vol ume] by Automated count Erythrocy 82.2 - fl Low No Sep 22 te mean 97.8 informati 2016 corpuscul on in 11:40 AM ar volume source [Entitic data volume] by Automated count Monocytes 0.1 - 1.0 K/mm3 Normal No Sep 22 2016 [#/volume on in 11:40 AM ] in source Blood by data Automated count Monocytes 1.7 - 9.3 % Normal No Sep 22 /100 informati 2016 leukocyte on in 11:40 AM s in source Blood by data Automated count Platelet 7.4 - fl Normal No Sep 22 mean 10.4 informati 2017 volume on in 11:40 AM [Entitic source volume] data in Blood by Automated count Platelets 142 - 424 K/mm3 Normal No Sep 22 informati 2016 [#/volume on in 11:40 AM ] in source Blood data Erythrocy 4.6 - 6.2 M/mm3 Low No Sep 22 [place] informati 2016 [#/volume on in 11:40 AM ] in source Amniotic data fluid Erythrocy 11.5 - % Normal No Sep 22 te 17.5 informati 2016 distribut on in 11:40 AM ion width source [Entitic data volume] by Automated count Leukocyte 4.8 - K/MM3 Normal No Sep 22 s 10.8 informati 2016 [#/volume on in 11:40 AM ] in source Blood data Differential panel, method unspecified - Observa Value Referen Units Interpr Notes Date tion ce etation Range Eosinophi 0 - 3 % Normal No Sep 22 ls/100 informati 2016 leukocyte on in 11:40 AM s in source Blood by data Manual count LYMPH 4 10 - 50 % Low No Sep 22 informa 2016 tion in 11:40 source AM data Monocytes 2 - 9 % Low No Sep 22 /100 informati 2017 leukocyte on in 11:40 AM s in source Blood by data Automated count Platele NORMAL No No No No Sep 22 ts informa informa informa informa 2016 [Presen tion in tion in tion in tion in 11:40 ce] in source source source source AM Blood data data data data by Light microsc opy Neutrophi 42 - 76 % High No Sep 22 ls 2016 [#/volume on in 11:40 AM ] in source Blood by data Automated count Cells No #CELLS No No Sep 22 Counted informati informati inform2016 Total [#] on in on in on in 11:40 AM in Blood source source source data data data Influenza virus A+B Ag [Presence] in Unspecified specimen Observa Value Referen Units Interpr Notes Date tion ce etation Range Influen NOT NOT No No No Sep 22 za DETECTE DETECTD informa informa informa 2017 virus A D tion in tion in tion in 11:40 Ag source source source AM [Presen data data data ce] in Unspeci fied specime n Influen NOT NOT No No No Sep 22 za DETECTE DETECTD informa informa informa 2017 virus B D tion in tion in tion in 11:40 Ag source source source AM [Presen data data data ce] in Unspeci fied specime n Glucose [Mass/volume] in Capillary blood by Glucometer Observa Value Referen Units Interpr Notes Date tion ce etation Range Glucose 70 - 110 mg/dl High No Fredy 19 [Mass/vol informati 2017 ume] in on in 11:30 AM Capillary source blood by data Glucomete r Glucose [Mass/volume] in Capillary blood by Glucometer Observa Value Referen Units Interpr Notes Date tion ce etation Range Glucose 70 - 110 mg/dl High No Fredy 19 [Mass/vol informati 2017 6:25 ume] in on in AM Capillary source blood by data Glucomete r Glucose [Mass/volume] in Capillary blood by Glucometer Observa Value Referen Units Interpr Notes Date tion ce etation Range Glucose 70 - 110 mg/dl High No Fredy 18 [Mass/vol informati 2017 9:31 ume] in on in PM Capillary source blood by data Glucomete r Glucose [Mass/volume] in Capillary blood by Glucometer Observa Value Referen Units Interpr Notes Date tion ce etation Range Glucose 70 - 110 mg/dl High No Fredy 18 [Mass/vol informati 2017 4:28 ume] in on in PM Capillary source blood by data Glucomete r Glucose [Mass/volume] in Capillary blood by Glucometer Observa Value Referen Units Interpr Notes Date tion ce etation Range Glucose 70 - 110 mg/dl High No Fredy 18 [Mass/vol alert informati 2017 ume] in on in 12:03 PM Capillary source blood by data Glucomete r Glucose [Mass/volume] in Capillary blood by Glucometer Observa Value Referen Units Interpr Notes Date tion ce etation Range Glucose 70 - 110 mg/dl High No Fredy 18 [Mass/vol informati 2017 6:40 ume] in on in AM Capillary source blood by data Glucomete r Glucose [Mass/volume] in Capillary blood by Glucometer Observa Value Referen Units Interpr Notes Date tion ce etation Range Glucose 70 - 110 mg/dl High No Fredy 17 [Mass/vol alert informati 2017 7:56 ume] in on in PM Capillary source blood by data Glucomete r Glucose [Mass/volume] in Capillary blood by Glucometer Observa Value Referen Units Interpr Notes Date tion ce etation Range Glucose 70 - 110 mg/dl High No Fredy 17 [Mass/vol alert informati 2017 4:40 ume] in on in PM Capillary source blood by data Glucomete r Glucose [Mass/volume] in Capillary blood by Glucometer Observa Value Referen Units Interpr Notes Date tion ce etation Range Glucose 70 - 110 mg/dl High No Sep 17 [Mass/vol informati 2016 ume] in on in 11:54 AM Capillary source blood by data Glucomete r Glucose [Mass/volume] in Capillary blood by Glucometer Observa Value Referen Units Interpr Notes Date ti ce etation Range Glucose 70 - 110 mg/dl High No Sep 30 [Mass/vol informati 2016 6:20 ume] in on in AM Capillary source blood by data Glucomete r Basic metabolic panel in Blood Observa Value Referen Units Interpr Notes Date ti ce etation Range Urea 7 - 18 mg/dL High No Sep 30 nitrogen informati 2016 5:55 [Mass/vol on in AM ume] in source Serum or data Plasma Calcium 8.5 - mg/dL Normal No Sep 30 [Mass/vol 10.1 informati 2016 5:55 ume] in on in AM Serum or source Plasma data Chloride 98 - 107 mmoL/L Normal No Sep 30 [Moles/vo informati 2016 5:55 lume] in on in AM Serum or source Plasma data Carbon 21.0 - mmoL/L High No Sep 30 dioxide, 32.0 informati 2016 5:55 total on in AM [Moles/vo source lume] in data Serum or Plasma Creatinin 0.70 - mg/dL High No Sep 30 e 1.30 informati 2017 5:55 [Mass/vol on in AM ume] in source Serum or data Plasma Creatinin 50 - 200 ML/MIN Normal No Sep 30 e renal informati 2016 5:55 clearance on in AM source predicted data by Cockcroft -Gault formula Estimated >60 ML/MIN No REFERENCE Sep 30 informati RANGE: 2017 5:55 glomerula on in >60 AM r source ML/MIN/1. filtratio data 73 SQUARE n rate METERSIf (GF this patient is -A merican, then multiply theresult by 1.210. Glucose 74 - 106 mg/dL High No Sep 30 [Mass/vol informati 2016 5:55 ume] in on in AM Serum or source Plasma data Potassium 3.5 - 5.1 mmoL/L Normal No Sep 30 informati 2016 5:55 [Moles/vo on in AM lume] in source Serum or data Plasma Sodium 136 - 145 mmoL/L Normal No Sep 30 [Moles/vo informati 2016 5:55 lume] in on in AM Serum or source Plasma data CBC W Auto Differential panel in Blood Observa Value Referen Units Interpr Notes Date tion ce etation Range Basophils 0 - 0.2 K/MM3 Normal No Sep 30 inform2016 5:55 [#/volume on in AM ] in source Blood by data Automated count Basophils 0.1 - 2.0 % Normal No Sep 30 /100 informati 2016 5:55 leukocyte on in AM s in source Blood by data Automated count Eosinophi 0.0 - 0.4 K/mm3 Normal No Sep 30 ls informati 2016 5:55 [#/volume on in AM ] in source Blood by data Automated count Eosinophi 0.1 - % Normal No Sep 30 ls/100 12.0 informati 2016 5:55 leukocyte on in AM s in source Blood by data Automated count Granulocy 1.3 - 8.0 K/mm3 Normal No Sep 30 [place] informati 2016 5:55 [#/volume on in AM ] in source Blood by data Automated count Granulocy 37.0 - % High No Sep 30 [place]/100 80.0 informati 2016 5:55 leukocyte on in AM s in source Blood by data Automated count Hematocri 42.0 - % Low No Sep 30 t [Volume 52.0 informati 2016 5:55 on in AM Fraction] source of Blood data Hemoglobi 14.1 - g/dL Low No Sep 30 n 18.0 informati 2016 5:55 [Mass/vol on in AM ume] in source Blood data Lymphocyt 0.7 - 4.5 K/mm3 Normal No Sep 30 es informati 2016 5:55 [#/volume on in AM ] in source Unspecifi data ed specimen by Automated count Lymphocyt 10 - 50 % Normal No Sep 30 es informati 2016 5:55 [#/volume on in AM ] in source Unspecifi data ed specimen by Automated count Erythrocy 27 - 31.2 pg Low No Sep 30 te mean informati 2016 5:55 corpuscul on in AM ar source hemoglobi data n [Entitic mass] Erythrocy 31.8 - g/dl Low No Sep 30 te mean 35.4 informati 2016 5:55 corpuscul on in AM ar source hemoglobi data n concentra tion [Mass/vol ume] by Automated count Erythrocy 82.2 - fl Normal No Sep 17 te mean 97.8 informati 2016 5:55 corpuscul on in AM ar volume source [Entitic data volume] by Automated count Monocytes 0.1 - 1.0 K/mm3 Normal No Sep 17 informati 2016 5:55 [#/volume on in AM ] in source Blood by data Automated count Monocytes 1.7 - 9.3 % Normal No Sep 17 /100 informati 2016 5:55 leukocyte on in AM s in source Blood by data Automated count Platelet 7.4 - fl Normal No Sep 30 mean 10.4 informati 2016 5:55 volume on in AM [Entitic source volume] data in Blood by Automated count Platelets 142 - 424 K/mm3 Normal No Sep 17 informati 2016 5:55 [#/volume on in AM ] in source Blood data Erythrocy 4.6 - 6.2 M/mm3 Low No Sep 17 [place] informati 2016 5:55 [#/volume on in AM ] in source Amniotic data fluid Erythrocy 11.5 - % Normal No Sep 30 te 17.5 informati 2016 5:55 distribut on in AM ion width source [Entitic data volume] by Automated count Leukocyte 4.8 - K/MM3 No Sep 30 s 10.8 informati informati 2016 5:55 [#/volume on in on in AM ] in source source Blood data data Glucose [Mass/volume] in Capillary blood by Glucometer Observa Value Referen Units Interpr Notes Date etation Range Glucose 70 - 110 mg/dl High No Sep 29 [Mass/vol alert informati 2016 9:40 ume] in on in PM Capillary source blood by data Glucomete r Glucose [Mass/volume] in Capillary blood by Glucometer Observa Value Referen Units Interpr Notes Date etation Range Glucose 70 - 110 mg/dl High No Sep 16 [Mass/vol alert informati 2016 4:14 ume] in on in PM Capillary source blood by data Glucomete r Glucose [Mass/volume] in Capillary blood by Glucometer Observa Value Referen Units Interpr Notes Date ce etation Range Glucose 70 - 110 mg/dl High No Sep 16 [Mass/vol alert informati 2016 ume] in on in 11:51 AM Capillary source blood by data Glucomete r Glucose [Mass/volume] in Capillary blood by Glucometer Observa Value Referen Units Interpr Notes Date ti ce etation Range Glucose 70 - 110 mg/dl High No Sep 16 [Mass/vol informati 2016 6:25 ume] in on in AM Capillary source blood by data Glucomete r Lactate [Moles/volume] in Blood Observa Value Referen Units Interpr Notes Date ti ce etation Range Lactate 0.4 - 2.0 mmol/L Normal No Sep 16 [Moles/vo informati 2016 lume] in on in Blood source data Natriutietic peptide B [Mass/volume] in Serum or Plasma Observa Value Referen Units Interpr Notes Date ti ce etation Range Natriutie 0 - 100 pg/mL High No Sep 28 tic inform2016 peptide B on in 11:40 PM source [Mass/vol data ume] in Serum or Plasma Cardiac enzymes Observa Value Referen Units Interpr Notes Date ti etation Range Creatine 0 - 4.0 U/L Normal No Sep 28 kinase.MB inform2016 /Creatine on in 11:40 PM source kinase.to data weston [Ratio] in Serum or Plasma Creatine 0.0 - 3.6 ng/mL Normal No Sep 28 kinase.MB informati 2016 on in 11:40 PM [Mass/vol source ume] in data Serum or Plasma Creatine 39 - 308 U/L Normal No Sep 28 kinase informati 2016 [Enzymati on in 11:40 PM c source activity/ data volume] in Serum or Plasma Troponin 0.00 - ng/mL Normal No Sep 28 I.cardiac 0.06 informati 2016 on in 11:40 PM [Mass/vol source ume] in data Serum or Plasma Comprehensive metabolic 2000 panel in Serum or Plasma Observa Value Referen Units Interpr Notes Date ti ce etation Range Albumin/G 1.1 - 1.8 No Low No Sep 28 lobulin informati informati 2016 [Mass on in on in 11:40 PM ratio] in source source Serum or data data Plasma Albumin 3.4 - 5.0 gm/dL Low No Sep 15 [Mass/vol informati 2017 ume] in on in 11:40 PM Serum or source Plasma data Alkaline 46 - 116 U/L Normal No Sep 28 phosphata informati 2016 se on in 11:40 PM [Enzymati source c data activity/ volume] in Serum or Plasma Bilirubin 0.2 - 1.0 mg/dL Normal No Sep 15 .total informati 2017 [Mass/vol on in 11:40 PM ume] in source Serum or data Plasma Urea 7 - 18 mg/dL High No Sep 15 nitrogen informati 2017 [Mass/vol on in 11:40 PM ume] in source Serum or data Plasma Calcium 8.5 - mg/dL Normal No Sep 15 [Mass/vol 10.1 informati 2016 ume] in on in 11:40 PM Serum or source Plasma data Chloride 98 - 107 mmoL/L Normal No Sep 15 [Moles/vo informati 2017 lume] in on in 11:40 PM Serum or source Plasma data Carbon 21.0 - mmoL/L High No Sep 28 dioxide, 32.0 informati 2017 total on in 11:40 PM [Moles/vo source lume] in data Serum or Plasma Creatinin 0.70 - mg/dL High No Sep 15 e 1.30 informati 2016 [Mass/vol on in 11:40 PM ume] in source Serum or data Plasma Creatinin 50 - 200 ML/MIN Normal No Sep 28 e renal informati 2017 clearance on in 11:40 PM source predicted data by Cockcroft -Gault formula Estimated >60 ML/MIN No REFERENCE Sep 28 informati RANGE: 2017 glomerula on in >60 11:40 PM r source ML/MIN/1. filtratio data 73 SQUARE n rate METERSIf (GF this patient is -A merican, then multiply theresult by 1.210. Globulin 1.3 - 3.2 gm/dL High No Sep 28 [Mass/vol informati 2016 ume] in on in 11:40 PM Serum source data Glucose 74 - 106 mg/dL High No Sep 15 [Mass/vol informati 2017 ume] in on in 11:40 PM Serum or source Plasma data Potassium 3.5 - 5.1 mmoL/L Normal No Sep 15 informati 2017 [Moles/vo on in 11:40 PM lume] in source Serum or data Plasma Sodium 136 - 145 mmoL/L Normal No Sep 15 [Moles/vo informati 2017 lume] in on in 11:40 PM Serum or source Plasma data Aspartate 15 - 37 U/L Low No Sep 28 informati 2017 aminotran on in 11:40 PM sferase source [Enzymati data c activity/ volume] in Serum or Plasma Alanine 12 - 78 U/L Normal No Sep 15 aminotran 2016 sferase on in 11:40 PM [Enzymati source c data activity/ volume] in Serum or Plasma Protein 6.4 - 8.2 gm/dL Normal No Sep 15 [Mass/vol 2016 ume] in on in 11:40 PM Serum or source Plasma data CBC W Auto Differential panel in Blood Observa Value Referen Units Interpr Notes Date tion ce etation Range Basophils 0 - 0.2 K/MM3 Normal No Sep 15 2016 [#/volume on in 11:40 PM ] in source Blood by data Automated count Basophils 0.1 - 2.0 % Normal No Sep 15 /100 inform2016 leukocyte on in 11:40 PM s in source Blood by data Automated count Eosinophi 0.0 - 0.4 K/mm3 Normal No Sep 28 ls 2016 [#/volume on in 11:40 PM ] in source Blood by data Automated count Eosinophi 0.1 - % Normal No Sep 28 ls/100 12.0 2016 leukocyte on in 11:40 PM s in source Blood by data Automated count Granulocy 1.3 - 8.0 K/mm3 Normal No Sep 15 [place] 2016 [#/volume on in 11:40 PM ] in source Blood by data Automated count Granulocy 37.0 - % High No Sep 28 [place]/100 80.0 2016 leukocyte on in 11:40 PM s in source Blood by data Automated count Hematocri 42.0 - % Low No Sep 28 t [Volume 52.0 2016 on in 11:40 PM Fraction] source of Blood data Hemoglobi 14.1 - g/dL Low No Sep 28 n 18.0 2016 [Mass/vol on in 11:40 PM ume] in source Blood data Lymphocyt 0.7 - 4.5 K/mm3 Normal No Sep 28 es 2016 [#/volume on in 11:40 PM ] in source Unspecifi data ed specimen by Automated count Lymphocyt 10 - 50 % Normal No Sep 28 es 2016 [#/volume on in 11:40 PM ] in source Unspecifi data ed specimen by Automated count Erythrocy 27 - 31.2 pg Low No Sep 28 te mean 2016 corpuscul on in 11:40 PM ar source hemoglobi data n [Entitic mass] Erythrocy 31.8 - g/dl Low No Sep 28 te mean 35.4 inform2016 corpuscul on in 11:40 PM ar source hemoglobi data n concentra tion [Mass/vol ume] by Automated count Erythrocy 82.2 - fl Normal No Sep 28 te mean 97.8 2016 corpuscul on in 11:40 PM ar volume source [Entitic data volume] by Automated count Monocytes 0.1 - 1.0 K/mm3 Normal No Sep 15 inform2016 [#/volume on in 11:40 PM ] in source Blood by data Automated count Monocytes 1.7 - 9.3 % Normal No Sep 15 /100 inform2016 leukocyte on in 11:40 PM s in source Blood by data Automated count Platelet 7.4 - fl Normal No Sep 28 mean 10.4 inform2016 volume on in 11:40 PM [Entitic source volume] data in Blood by Automated count Platelets 142 - 424 K/mm3 No No Sep 28 informati informati 2016 [#/volume on in on in 11:40 PM ] in source source Blood data data Erythrocy 4.6 - 6.2 M/mm3 Low No Sep 15 [place] inform2016 [#/volume on in 11:40 PM ] in source Amniotic data fluid Erythrocy 11.5 - % Normal No Sep 28 te 17.5 inform2016 distribut on in 11:40 PM ion width source [Entitic data volume] by Automated count Leukocyte 4.8 - K/MM3 Normal No Sep 15 s 10.8 inform2016 [#/volume on in 11:40 PM ] in source Blood data Natriutietic peptide B [Mass/volume] in Serum or Plasma Observa Value Referen Units Interpr Notes ti ce etation Range Natriutie 0 - 100 pg/mL High No September 05 tic inform2016 4:00 peptide B on in PM source [Mass/vol data ume] in Serum or Plasma Troponin I.cardiac [Mass/volume] in Serum or Plasma Observa Value Referen Units Interpr Notes Date ti ce etation Range Troponin 0.00 - ng/mL Normal No September 05 I.cardiac 0.06 informati 2016 4:00 on in PM [Mass/vol source ume] in data Serum or Plasma Comprehensive metabolic 2000 panel in Serum or Plasma Observa Value Referen Units Interpr Notes Date ti ce etation Range Albumin/G 1.1 - 1.8 No Low No September 05 lobulin informati informati 2016 4:00 [Mass on in on in PM ratio] in source source Serum or data data Plasma Albumin 3.4 - 5.0 gm/dL Low No September 05 [Mass/vol informati 2016 4:00 ume] in on in PM Serum or source Plasma data Alkaline 46 - 116 U/L Normal No September 05 phosphata informati 2016 4:00 se on in PM [Enzymati source c data activity/ volume] in Serum or Plasma Bilirubin 0.2 - 1.0 mg/dL Normal No September 05 .total informati 2016 4:00 [Mass/vol on in PM ume] in source Serum or data Plasma Urea 7 - 18 mg/dL High No September 05 nitrogen informati 2016 4:00 [Mass/vol on in PM ume] in source Serum or data Plasma Calcium 8.5 - mg/dL Normal No September 05 [Mass/vol 10.1 informati 2016 4:00 ume] in on in PM Serum or source Plasma data Chloride 98 - 107 mmoL/L Normal No September 05 [Moles/vo informati 2016 4:00 lume] in on in PM Serum or source Plasma data Carbon 21.0 - mmoL/L Normal No September 05 dioxide, 32.0 informati 2016 4:00 total on in PM [Moles/vo source lume] in data Serum or Plasma Creatinin 0.70 - mg/dL High No September 05 e 1.30 informati 2016 4:00 [Mass/vol on in PM ume] in source Serum or data Plasma Creatinin 50 - 200 ML/MIN Normal No September 05 e renal informati 2016 4:00 clearance on in PM source predicted data by Cockcroft -Gault formula Estimated >60 ML/MIN No REFERENCE September 05 informati RANGE: 2017 4:00 glomerula on in >60 PM r source ML/MIN/1. filtratio data 73 SQUARE n rate METERSIf (GF this patient is -A merican, then multiply theresult by 1.210. Globulin 1.3 - 3.2 gm/dL High No September 05 [Mass/vol informati 2016 4:00 ume] in on in PM Serum source data Glucose 74 - 106 mg/dL High No September 05 [Mass/vol informati 2016 4:00 ume] in on in PM Serum or source Plasma data Potassium 3.5 - 5.1 mmoL/L Normal No September 052016 4:00 [Moles/vo on in PM lume] in source Serum or data Plasma Sodium 136 - 145 mmoL/L Normal No September 05 [Moles/vo 2016 4:00 lume] in on in PM Serum or source Plasma data Aspartate 15 - 37 U/L Low No September 052016 4:00 aminotran on in PM sferase source [Enzymati data c activity/ volume] in Serum or Plasma Alanine 12 - 78 U/L Normal No September 05 aminotran inform2016 4:00 sferase on in PM [Enzymati source c data activity/ volume] in Serum or Plasma Protein 6.4 - 8.2 gm/dL Normal No September 05 [Mass/vol informati 2016 4:00 ume] in on in PM Serum or source Plasma data CBC W Auto Differential panel in Blood Observa Value Referen Units Interpr Notes Date tion ce etation Range Basophils 0 - 0.2 K/MM3 Normal No September 052016 4:00 [#/volume on in PM ] in source Blood by data Automated count Basophils 0.1 - 2.0 % Normal No September 05 inform2016 4:00 leukocyte on in PM s in source Blood by data Automated count Eosinophi 0.0 - 0.4 K/mm3 Normal No September 05 ls ati 2016 4:00 [#/volume on in PM ] in source Blood by data Automated count Eosinophi 0.1 - % Normal September 05 ls/100 12.0 informati 2016 4:00 leukocyte on in PM s in source Blood by data Automated count Granulocy 1.3 - 8.0 K/mm3 Normal No September 05 [place] informati 2016 4:00 [#/volume on in PM ] in source Blood by data Automated count Granulocy 37.0 - % High September 05 [place]/100 80.0 informati 2016 4:00 leukocyte on in PM s in source Blood by data Automated count Hematocri 42.0 - % Low No September 05 t [Volume 52.0 informati 2016 4:00 on in PM Fraction] source of Blood data Hemoglobi 14.1 - g/dL Low No September 05 n 18.0 informati 2017 4:00 [Mass/vol on in PM ume] in source Blood data Lymphocyt 0.7 - 4.5 K/mm3 Normal No September 05 es informati 2016 4:00 [#/volume on in PM ] in source Unspecifi data ed specimen by Automated count Lymphocyt 10 - 50 % Normal No September 05 es informati 2016 4:00 [#/volume on in PM ] in source Unspecifi data ed specimen by Automated count Erythrocy 27 - 31.2 pg Low No September 05 te mean informati 2016 4:00 corpuscul on in PM ar source hemoglobi data n [Entitic mass] Erythrocy 31.8 - g/dl Low No September 05 te mean 35.4 informati 2016 4:00 corpuscul on in PM ar source hemoglobi data n concentra tion [Mass/vol ume] by Automated count Erythrocy 82.2 - fl Normal No September 05 te mean 97.8 informati 2016 4:00 corpuscul on in PM ar volume source [Entitic data volume] by Automated count Monocytes 0.1 - 1.0 K/mm3 Normal No September 05 informati 2016 4:00 [#/volume on in PM ] in source Blood by data Automated count Monocytes 1.7 - 9.3 % Normal No September 05 / informati 2016 4:00 leukocyte on in PM s in source Blood by data Automated count Platelet 7.4 - fl Low No September 05 mean 10.4 informati 2016 4:00 volume on in PM [Entitic source volume] data in Blood by Automated count Platelets 142 - 424 K/mm3 Normal No September 05 informati 2016 4:00 [#/volume on in PM ] in source Blood data Erythrocy 4.6 - 6.2 M/mm3 Low No September 05 [place] informati 2016 4:00 [#/volume on in PM ] in source Amniotic data fluid Erythrocy 11.5 - % Normal No September 05 te 17.5 informati 2016 4:00 distribut on in PM ion width source [Entitic data volume] by Automated count Leukocyte 4.8 - K/MM3 Normal No September 05 s 10.8 informati 2016 4:00 [#/volume on in PM ] in source Blood data Comprehensive metabolic 2000 panel in Serum or Plasma Observa Value Referen Units Interpr Notes Date tion ce etation Range Albumin/G 1.1 - 1.8 No Low No August 30 lobulin informati informati 2016 8:55 [Mass on in on in AM ratio] in source source Serum or data data Plasma Albumin 3.4 - 5.0 gm/dL Low No August 30 [Mass/vol informati 2016 8:55 ume] in on in AM Serum or source Plasma data Alkaline 46 - 116 U/L Normal No August 30 phosphata informati 2016 8:55 se on in AM [Enzymati source c data activity/ volume] in Serum or Plasma Bilirubin 0.2 - 1.0 mg/dL Normal No August 30 .total informati 2016 8:55 [Mass/vol on in AM ume] in source Serum or data Plasma Urea 7 - 18 mg/dL High No August 30 nitrogen informati 2016 8:55 [Mass/vol on in AM ume] in source Serum or data Plasma Calcium 8.5 - mg/dL Normal No August 30 [Mass/vol 10.1 informati 2016 8:55 ume] in on in AM Serum or source Plasma data Chloride 98 - 107 mmoL/L High No August 30 [Moles/vo informati 2016 8:55 lume] in on in AM Serum or source Plasma data Carbon 21.0 - mmoL/L Normal No August 30 dioxide, 32.0 informati 2017 8:55 total on in AM [Moles/vo source lume] in data Serum or Plasma Creatinin 0.70 - mg/dL High No August 30 e 1.30 informati 2016 8:55 [Mass/vol on in AM ume] in source Serum or data Plasma Creatinin 50 - 200 ML/MIN Normal No August 30 e renal informati 2016 8:55 clearance on in AM source predicted data by Cockcroft -Gault formula Estimated >60 ML/MIN No REFERENCE August 30 informati RANGE: 2017 8:55 glomerula on in >60 AM r source ML/MIN/1. filtratio data 73 SQUARE n rate METERSIf (GF this patient is -A merican, then multiply theresult by 1.210. Globulin 1.3 - 3.2 gm/dL High No August 30 [Mass/vol informati 2016 8:55 ume] in on in AM Serum source data Glucose 74 - 106 mg/dL High No August 30 [Mass/vol informati 2016 8:55 ume] in on in AM Serum or source Plasma data Potassium 3.5 - 5.1 mmoL/L Normal No August 302016 8:55 [Moles/vo on in AM lume] in source Serum or data Plasma Sodium 136 - 145 mmoL/L Normal No August 30 [Moles/vo 2016 8:55 lume] in on in AM Serum or source Plasma data Aspartate 15 - 37 U/L Low No August 302016 8:55 aminotran on in AM sferase source [Enzymati data c activity/ volume] in Serum or Plasma Alanine 12 - 78 U/L Normal No August 30 aminotran inform2016 8:55 sferase on in AM [Enzymati source c data activity/ volume] in Serum or Plasma Protein 6.4 - 8.2 gm/dL Normal No August 30 [Mass/vol informati 2016 8:55 ume] in on in AM Serum or source Plasma data Natriutietic peptide B [Mass/volume] in Serum or Plasma Observa Value Referen Units Interpr Notes Date tion ce etation Range Natriutie 0 - 100 pg/mL High No August 30 tic 2016 8:55 peptide B on in AM source [Mass/vol data ume] in Serum or Plasma Lactate [Moles/volume] in Blood Observa Value Referen Units Interpr Notes Date tion ce etation Range Lactate 0.4 - 2.0 mmol/L Normal No August 30 [Moles/vo ati 2016 8:55 lume] in on in AM Blood source data CBC W Auto Differential panel in Blood Observa Value Referen Units Interpr Notes Date tion ce etation Range Basophils 0 - 0.2 K/MM3 Normal No August 302016 8:55 [#/volume on in AM ] in source Blood by data Automated count Basophils 0.1 - 2.0 % Normal No August 30 informati 2016 8:55 leukocyte on in AM s in source Blood by data Automated count Eosinophi 0.0 - 0.4 K/mm3 Normal No August 30 ls informati 2016 8:55 [#/volume on in AM ] in source Blood by data Automated count Eosinophi 0.1 - % Normal No August 30 ls/100 12.0 informati 2016 8:55 leukocyte on in AM s in source Blood by data Automated count Granulocy 1.3 - 8.0 K/mm3 Normal No August 30 [place] ati 2017 8:55 [#/volume on in AM ] in source Blood by data Automated count Granulocy 37.0 - % Normal August 30 [place]/100 80.0 informati 2016 8:55 leukocyte on in AM s in source Blood by data Automated count Hematocri 42.0 - % Low No August 30 t [Volume 52.0 informati 2016 8:55 on in AM Fraction] source of Blood data Hemoglobi 14.1 - g/dL Low August 30 n 18.0 informati 2016 8:55 [Mass/vol on in AM ume] in source Blood data Lymphocyt 0.7 - 4.5 K/mm3 Low August 30 es informati 2016 8:55 [#/volume on in AM ] in source Unspecifi data ed specimen by Automated count Lymphocyt 10 - 50 % Low August 30 es informati 2016 8:55 [#/volume on in AM ] in source Unspecifi data ed specimen by Automated count Erythrocy 27 - 31.2 pg Low August 30 te mean informati 2016 8:55 corpuscul on in AM ar source hemoglobi data n [Entitic mass] Erythrocy 31.8 - g/dl Low August 30 te mean 35.4 informati 2016 8:55 corpuscul on in AM ar source hemoglobi data n concentra tion [Mass/vol ume] by Automated count Erythrocy 82.2 - fl Low August 30 te mean 97.8 informati 2016 8:55 corpuscul on in AM ar volume source [Entitic data volume] by Automated count Monocytes 0.1 - 1.0 K/mm3 Normal No August 30 informati 2016 8:55 [#/volume on in AM ] in source Blood by data Automated count Monocytes 1.7 - 9.3 % Normal No August 30 / informati 2016 8:55 leukocyte on in AM s in source Blood by data Automated count Platelet 7.4 - fl Low August 30 mean 10.4 informati 2016 8:55 volume on in AM [Entitic source volume] data in Blood by Automated count Platelets 142 - 424 K/mm3 Normal No August 30 informati 2016 8:55 [#/volume on in AM ] in source Blood data Erythrocy 4.6 - 6.2 M/mm3 Low August 30 [place] informati 2016 8:55 [#/volume on in AM ] in source Amniotic data fluid Erythrocy 11.5 - % Normal No August 30 te 17.5 informati 2016 8:55 distribut on in AM ion width source [Entitic data volume] by Automated count Leukocyte 4.8 - K/MM3 Normal No August 30 s 10.8 informati 2016 8:55 [#/volume on in AM ] in source Blood data XR Chest 1 View Observa Value Referen Units Interpr Notes Date tion ce etation Range Report EXAM:Xr No No No Oct 13 ay informa informa informa Final 2014 Chest 1 tion in tion in tion in \. 9:39 PM view. source source source br\\.br INDICAT data data data \Signed ION:Shirley : Ash thomas , of air Hemant\. TECHNIQ br\Sign UE:A ed on: single AP view 015 of the 9:39\.b chest r\\.br\ was Transcr obtaine ibed d. Date/Ti COMPARI me: SON:Linda or 015 chest 5:34 pm radiogr aphs could not be accesse d at the time of the dictati on dueto systems issues. FINDING S: Right subclav arturo AICD. Lead tip overlie s the RV. Left subclav arturo central venous access port with cathete r tip project ing over the anatomi c locatio n ofthe left brachia l cephali c vein. Cardiom egaly. No pulmona ry venous congest ion. The trachea and central bronchi appear patent. No mediast inal widenin g orhilar enlarge ment. Low lung volumes . No abnorma l airspac e opacifi cation. No pneumot horax or abnorma l pleural fluid. No acute osseous abnorma lity. No abnorma lity was identif ied within the visuali zed portion of the upperab domen. IMPRESS ION: 1. CARDIOM EGALY. 2. NO ACUTE FINDING S. TSH Observa Value Referen Units Interpr Notes Date ti ce etation Range TSH 0.93 0.45 - mIU/mL No No Nov 19 4.50 informa informa 2013 tion in tion in 2:22 PM source source data data CMP Observa Value Referen Units Interpr Notes Date ti ce etation Range Sodium 139 136 - mmol/L No No Aug 6 Level 148 informa informa 2013 tion in tion in 2:22 PM source source data data Potassi 4.7 3.8 - mmol/L No No Aug 6 um 5.2 informa informa 2013 Level tion in tion in 2:22 PM source source data data Chlorid 107 98 - mmol/L No No Aug 6 e 108 informa informa 2013 tion in tion in 2:22 PM source source data data CO2 30.4 22.3 - mmol/L No No Aug 6 33.5 informa informa 2013 tion in tion in 2:22 PM source source data data Glucose 213 70 - mg/dL High No Aug 6 Level 110 inform2013 tion in 2:22 PM source data Albumin 3.2 3.4 - g/dL Low No Aug 6 Level 5.0 inform2013 tion in 2:22 PM source data BUN 34 7 - 22 mg/dL High No Aug 6 informa 2013 tion in 2:22 PM source data Creatin 1.8 0.8 - mg/dL High No Aug 6 ine 1.5 inform2013 tion in 2:22 PM source data Bili 0.29 0.50 - mg/dL Low No Aug 6 Total 1.50 inform2013 tion in 2:22 PM source data Total 6.9 6.4 - g/dL No No Aug 6 Protein 8.2 informa informa 2013 tion in tion in 2:22 PM source source data data Alk 142 50 - unit/L High No Aug 6 Phos 136 inform2013 tion in 2:22 PM source data AST 23 22 - 37 unit/L No No Aug 6 informa informa 2013 tion in tion in 2:22 PM source source data data ALT 26 12 - 78 unit/L No No Aug 6 informa informa 2013 tion in tion in 2:22 PM source source data data Calcium 8.2 8.7 - mg/dL Low No Aug 6 10.5 informa 2013 tion in 2:22 PM source data Glyhm Observa Value Referen Units Interpr Notes Date tion ce etation Range Hemoglo 10.5 4.2 - % High No Aug 6 bin 6.3 inform2013 A1c tion in 1:47 PM source data Free T4 Observa Value Referen Units Interpr Notes Date tion ce etation Range T4, 1.15 0.78 - ng/dL No No Aug 6 Free 2.19 informa informa 2013 tion in tion in 1:40 PM source source data data CBC Observa Value Referen Units Interpr Notes Date tion ce etation Range WBC 8.77 4.50 - x10-3/m No No Aug 6 11.00 cL informa informa 2013 tion in tion in 12:51 source source PM data data RBC 4.21 4.60 - mcL Low No Aug 6 6.20 informa 2013 tion in 12:51 source PM data Hgb 10.3 13.5 - g/dL Low No Aug 6 18.0 informa 2013 tion in 12:51 source PM data Hct 34.4 42.0 - % Low No Aug 6 52.0 informa 2013 tion in 12:51 source PM data MCV 81.7 80.0 - fL No No Aug 6 94.0 informa informa 2013 tion in tion in 12:51 source source PM data data MCH 24.5 27.0 - pg Low No Aug 6 37.0 informa 2013 tion in 12:51 source PM data MCHC 29.9 33.0 - g/dL Low No Aug 6 37.0 informa 2013 tion in 12:51 source PM data RDW 42.5 40.0 - fL No No Aug 6 52.0 informa informa 2013 tion in tion in 12:51 source source PM data data Platele 358 130 - x10-3/m No No Aug 6 t 450 cL informa informa 2013 tion in tion in 12:51 source source PM data data Neutro 71 50 - 70 % High No Aug 6 Auto informa 2013 tion in 12:51 source PM data Lymph 16 25 - 40 % Low No Aug 6 Auto informa 2013 tion in 12:51 source PM data [place] 8 2 - 9 % No No Aug 6 Auto informa informa 2013 tion in tion in 12:51 source source PM data data Eos 4 2 - 4 % No No Aug 6 Auto informa informa 2013 tion in tion in 12:51 source source PM data data Basophi 0 0 - 1 % No No Aug 6 l Auto informa informa 2013 tion in tion in 12:51 source source PM data data Differe No No No No No Aug 6 ntial? informa informa informa 2014 tion in tion in tion in 12:51 source source source PM data data data Absolut 6.25 1.50 - x10-3/m No No Aug 6 e 7.50 cL informa informa 2014 Neutrop tion in tion in 12:51 hil source source PM Count data data Absolut 1.42 1.10 - x10-3/m No No Aug 6 e 4.40 cL informa informa 2014 Lymphoc tion in tion in 12:51 yte source source PM Count data data Absolut 0.70 0.00 - x10-3/m No No Aug 6 e 0.80 cL informa informa 2014 Monocyt tion in tion in 12:51 e Count source source PM data data Absolut 0.33 0.15 - x10-3/m No No Aug 6 e 0.60 cL informa informa 2014 Eosinop tion in tion in 12:51 hil source source PM Count data data Absolut 0.02 0.02 - x10-3/m No No Aug 6 e 0.05 cL informa informa 2014 Basophi tion in tion in 12:51 l Count source source PM data data
--- OUTSIDE RECORDS SUMMARY | 2017-02-19 12:44 | External Medical Summary Rpt ---
Author Author [employer], [employer] Organization [employer] Address Unknown Phone Unavailable Payers Section Payer Plan Name Group ID Member ID Coverage Coverage Start End Date Date E04^MARIAN [id number] No No MEDICAL MEDICAL 3 informati informati [...] 2013 tion in 12:51 source PM data [place] 8 2 - 9 % No No [...]
[2017-02-19 13:03] LABS: HEMOGLOBIN 9.7 g/dL (14.1-18.0); LYMPH # 0.5 K/mm3 (0.7-4.5); LYMPH % 7.8 % (10-50)
[2017-02-19 14:08] VITALS: BP 146/72
--- NOTE | 2017-02-19 15:42 | RADIOLOGY REPORT PS360 ---
CHEST-PORTABLE HISTORY: Shortness of air SOA ORDERING PHYSICIAN: Radha Fischer MD PATIENT AGE: 66 years COMPARISON: 01/27/2017 FINDINGS: There are low lung volumes with mild prominence of the mediastinum. Right ventricular pacemaker is present from the right subclavian approach. No lobar consolidation or collapse. Previously noted density in the right suprahilar region is somewhat less apparent. Mediport catheter is present from left subclavian approach with the tip in region of the superior vena cava. IMPRESSION: Low lung volumes. Cardiomegaly with mild prominence of mediastinum. No acute finding
== END 2017-02-19 14:43 | disposition home or self-care (01) ==
LOC: ER 11:59
PROVIDERS: Emergency Medicine
DX: R06.02 Shortness of breath (principal); N18.9 Chronic kidney disease, unspecified; E11.9 Type 2 diabetes mellitus without complications; Z79.4 Long term (current) use of insulin; Z88.2 Allergy status to sulfonamides; K21.9 Gastro-esophageal reflux disease without esophagitis; N28.9 Disorder of kidney and ureter, unspecified

== ENCOUNTER 2017-03-11 04:03 | Inpatient (IN) | payer MEDICARE, MEDICAID ==
[2017-03-11] VITALS (8 sets, daily range): BP systolic 126–153; BP diastolic 58–83
[~2017-03-11] VITALS: Ht 160 cm; Wt 97.7 kg
[~2017-03-11 04:03] MED LIST changes: -DOCUSATE SODIU100 MG PO; +[UNRECOGNIZED DRUG - OTHER] PO
[2017-03-11] MEDS ORDERED: SILVADENE1% TP (04:18)
--- OUTSIDE RECORDS SUMMARY | 2017-03-11 04:19 | External Medical Summary Rpt | Continuity of Care Document ---
Author Author Organization Address Unknown Phone Unavailable Care Team Providers Care Thread Tool Grinder Set Up Operator Name Role Phone , Unavailable Unavailable EMS Current Medications Section EMS Allergies and Adverse Reactions EMS Past Medical History Medications Administered Section EMS Procedures Performed EMS Vital Signs EMS Patient Care Report Narrative EMS called by [facility] staff to respond for a patient with mild difficulty breathing. Upon arrival to scene patient was found in bed with O2 in place via NC at 2 lpm. Patient was alert and advised he was having some difficulty breathing this date. EMS was assisted by [facility] staff in moving the patient with a draw sheet to the EC cot and patient was placed in a semi-lester positing O2 was continued during patient move. Upon exam patient has extreme edema to both lower extremities and extremities have been wrapped. Patient stated that he had been feeling bad over the past few weeks and was continuing to get worse. Patient has a history of RA, Wheelchair confined, Type 2 DM, CHF, Edema, pacemaker, stents, kidney dysfunction, respiratory failure and HTN. Patient was moved to EC unit and O2 was continued at 3 lpm via NC. Patient V/S were obtained and property assessment monitor applied showing sinus with no ectopy nor elevations. Patient lung sound were clear in the upper bilaterally and decreased in the lower bilaterally. Patient stated that he had previously been diagnosed with pneumonia and believed that he still had it. Patient rested comfortably in route and remained stable. Report was given to [facility] ER staff and patient care was transferred without change. Melani Davison [phone] ccp.
--- OUTSIDE RECORDS SUMMARY | 2017-03-11 04:19 | External Medical Summary Rpt | Continuity of Care Document ---
Author Author Organization Address Unknown Phone Unavailable Care Team Providers Care Ladies' Hat Trimmer Name Role Phone , Unavailable Unavailable EMS Current Medications Section EMS Allergies and Adverse Reactions EMS Past Medical History Medications Administered Section EMS Procedures Performed EMS Vital Signs EMS Patient Care Report Narrative EMS called by [facility] staff to respond for a patient with mild difficulty breathing. Upon arrival to scene patient was found in bed with O2 in place via NC at 2 lpm. Patient was alert and advised he was having some difficulty breathing this date. EMS was assisted by [facility] staff in moving the patient with a [...] via NC. Patient V/S were obtained and monitor tech applied showing sinus with no ectopy nor elevations. Patient lung sound were clear in the upper bilaterally and decreased in the lower bilaterally. Patient stated that he had previously been diagnosed with pneumonia and believed that he still had it. Patient rested comfortably in route and remained stable. Report was given to [facility] ER staff and patient care was transferred without change. Melani Davison [phone] ccp.
--- OUTSIDE RECORDS SUMMARY | 2017-03-11 04:19 | External Medical Summary Rpt | Continuity of Care Document ---
Author Author Organization Address Unknown Phone Unavailable Care Team Providers Care Server Programmer Name Role Phone , Unavailable Unavailable EMS Current Medications Section EMS Allergies and Adverse Reactions EMS Past Medical History Medications Administered Section EMS Procedures Performed EMS Vital Signs EMS Patient Care Report Narrative EMS called by [facility] staff to respond for a patient with mild difficulty breathing. Upon arrival to scene patient was found in bed with O2 in place via NC at 2 lpm. Patient was alert and advised he was having some difficulty breathing this date. EMS was assisted by [facility] staff in moving the patient [...] via NC. Patient V/S were obtained and court monitor applied showing sinus with no ectopy nor elevations. Patient lung sound were clear in the upper bilaterally and decreased in the lower bilaterally. Patient stated that he had previously been diagnosed with pneumonia and believed that he still had it. Patient rested comfortably in route and remained stable. Report was given to [facility] ER staff and patient care was transferred without change. Melani Davison [phone] ccp.
--- OUTSIDE RECORDS SUMMARY | 2017-03-11 04:19 | External Medical Summary Rpt | Continuity of Care Document ---
Author Author Organization Address Unknown Phone Unavailable Care Team Providers Care Operations Administrative Assistant Name Role Phone , Unavailable Unavailable EMS Current Medications Section EMS Allergies and Adverse Reactions EMS Past Medical History Medications Administered Section EMS Procedures Performed EMS Vital Signs EMS Patient Care Report Narrative EMS called by [facility] staff to respond for a patient with mild difficulty breathing. Upon arrival to scene patient was found in bed with O2 in place via NC at 2 lpm. Patient was alert and advised he was having some difficulty breathing this date. EMS was assisted by [facility] staff in moving the patient with [...] via NC. Patient V/S were obtained and service engine repairer applied showing sinus with no ectopy nor elevations. Patient lung sound were clear in the upper bilaterally and decreased in the lower bilaterally. Patient stated that he had previously been diagnosed with pneumonia and believed that he still had it. Patient rested comfortably in route and remained stable. Report was given to [facility] ER staff and patient care was transferred without change. Melani Davison [phone] ccp.
[2017-03-11 04:21] LABS: HEMOGLOBIN 10.1 g/dL (14.1-18.0); LYMPH # 0.6 K/mm3 (0.7-4.5); LYMPH % 6.3 % (10-50)
--- OUTSIDE RECORDS SUMMARY | 2017-03-11 04:21 | External Medical Summary Rpt | CCD ---
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 I50.9 Heart 12-20-2016 failure, unspecified J96.02 Acute 12-20-2016 respiratory failure with hypercapnia K21.9 Gastro-esop 12-20-2016 hageal reflux disease without esophagitis K59.00 Constipatio 12-20-2016 n, unspecified M06.9 Rheumatoid 12-20-2016 arthritis, unspecified N18.3 Chronic 12-20-2016 kidney disease, stage 3 (moderate) R00.1 Bradycardia 12-20-2016 , unspecified R74.8 Abnormal 12-20-2016 levels of other serum enzymes 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 of insulin Z95.0 Presence of 12-20-2016 cardiac pacemaker E11.621 Type 2 09-13-2016 diabetes mellitus with foot ulcer E78.5 Hyperlipide 09-13-2016 endy, unspecified I13.0 Hypertensiv 09-13-2016 e heart and chronic kidney disease with heart failure and stage 1 through stage 4 chronic kidney disease, or unspecified chronic kidney disease I21.4 Non-ST 09-13-2016 elevation (NSTEMI) myocardial infarction I25.2 Old 09-13-2016 myocardial infarction I50.23 Acute on 09-13-2016 chronic systolic (congestive ) heart failure 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 ) I87.8 Other 09-13-2016 specified disorders of veins J96.01 Acute 09-13-2016 respiratory failure with hypoxia L97.509 Non-pressur 09-13-2016 e chronic ulcer of other part of unspecified foot with unspecified severity R60.0 Localized 09-13-2016 edema Z95.5 Presence of 09-13-2016 coronary angioplasty implant and graft Z95.810 Presence of 09-13-2016 automatic (implantabl e) cardiac defibrillat or I50.20 Unspecified 09-06-2016 systolic (congestive ) heart failure D64.9 ANEMIA, UNSPECIFIED E87.5 HYPERKALEMI A G89.29 OTHER CHRONIC PAIN I21.9 ACUTE MYOCARDIAL INFARCTION, UNSPECIFIED J02.9 ACUTE PHARYNGITIS , UNSPECIFIED J18.9 PNEUMONIA, UNSPECIFIED ORGANISM K56.609 UNSP INTESTNL OBST, UNSP TO PARTIAL VERSUS COMPLETE OBST N18.9 CHRONIC KIDNEY DISEASE, UNSPECIFIED N28.9 DISORDER OF KIDNEY AND URETER, UNSPECIFIED N48.89 OTHER SPECIFIED DISORDERS OF PENIS R06.00 DYSPNEA, UNSPECIFIED R06.02 SHORTNESS OF BREATH R07.9 CHEST PAIN, UNSPECIFIED R60.9 EDEMA, UNSPECIFIED Z86.79 PERSONAL HISTORY OF OTHER DISEASES OF THE CIRCULATORY SYSTEM Results Labs Lab Lab Date Result Refere Interp Status Commen Order Detail nces retati t Range on Comprehensive metabolic panel (02-19-2017 12:40) Protein = 7.9 6.4-8.2 complet total 017 gm/dL ed ser/mateo 12:40 s ALT = 17 12-78 complet (SGPT) 017 U/L ed ser/mateo 12:40 s Serum = 17 15-37 complet or 017 U/L ed plasma 12:40 asparta te aminotr ansfera Serum = 140 136-145 complet sodium 017 mmoL/L ed measure 12:40 ment Serum = 4.2 3.5-5.1 complet potassi 017 mmoL/L ed um 12:40 measure ment Serum = 207 74-106 complet or 017 mg/dL ed plasma 12:40 glucose measure ment (mas Serum = 5.3 1.3-3.2 complet globuli 017 gm/dL ed n 12:40 measure ment (mass/v olume) Estimat = 38 >60 complet ed 017 ML/MIN ed glomeru 12:40 lar filtrat ion rate (GF Estimat = 53 50-200 complet ion of 017 ML/MIN ed creatin 12:40 ine renal clearan ce Serum = 1.8 0.70-1. complet or 017 mg/dL 30 ed plasma 12:40 creatin ine measure ment ( Carbon = 40 21.0-32 complet dioxide 017 mmoL/L .0 ed 12:40 measure ment Serum = 99 98-107 complet or 017 mmoL/L ed plasma 12:40 chlorid e measure ment (mo Serum = 9.1 8.5-10. complet or 017 mg/dL 1 ed plasma 12:40 calcium measure ment (mas Serum = 79 7-18 complet or 017 mg/dL ed plasma 12:40 urea nitroge n measure men Serum = 0.3 0.2-1.0 complet or 017 mg/dL ed plasma 12:40 total bilirub in measure m Serum = 68 46-116 complet or 017 U/L ed plasma 12:40 alkalin e phospha tase dillan Serum = 2.6 3.4-5.0 complet or 017 gm/dL ed plasma 12:40 albumin measure ment (mas Serum = 0.5 1.1-1.8 complet or 017 ed plasma 12:40 albumin /globul in mass ra CBC w auto diff (02-19-2017 12:40) Blood = 234 142-424 complet platele 017 K/mm3 ed t count 12:40 Automat = 8.0 7.4-10. complet ed 017 fl 4 ed blood 12:40 platele t mean volume dillan Walker % = 7.3 % 1.7-9.3 complet 017 ed 12:40 Absolut = 0.5 0.1-1.0 complet e 017 K/mm3 ed monocyt 12:40 e count Automat = 79.6 82.2-97 complet ed 017 fl .8 ed erythro 12:40 cyte mean corpusc ular v Automat = 29.4 31.8-35 complet ed 017 g/dl .4 ed erythro 12:40 cyte mean corpusc ular h Mean = 23.4 27-31.2 complet corpusc 017 pg ed ular 12:40 hemoglo bin (MCH) determ Baso % = 0.5 % 0.1-2.0 complet 017 ed 12:40 Automat = 0.0 0-0.2 complet ed 017 K/MM3 ed blood 12:40 basophi l count (count/ vo Lymphoc = 7.8 % 10-50 complet yte 017 ed count, 12:40 blood, automat ed Absolut = 0.5 0.7-4.5 complet e 017 K/mm3 ed lymphoc 12:40 yte count Blood = 9.7 14.1-18 complet hemoglo 017 g/dL .0 ed bin 12:40 measure ment (mass/v olum Blood = 33.1 42.0-52 complet hematoc 017 % .0 ed rit 12:40 (volume fractio n) Granulo = 82.1 37.0-80 complet cyte 017 % .0 ed percent 12:40 age Blood = 5.2 1.3-8.0 complet granulo 017 K/mm3 ed cytes 12:40 automat ed count (numb Automat = 2.2 % 0.1-12. complet ed 017 0 ed blood 12:40 eosinop hils/10 0 leukocy t Automat = 0.1 0.0-0.4 complet ed 017 K/mm3 ed blood 12:40 eosinop hil count Blood = 6.3 4.8-10. complet leukocy 017 K/MM3 8 ed shelby 12:40 count (number /volume ) Automat = 16.3 11.5-17 complet ed 017 % .5 ed erythro 12:40 cyte distrib ution width Red = 4.16 4.6-6.2 complet blood 017 M/mm3 ed cell 12:40 count Cardiac enzymes (02-19-2017 12:40) Serum = 0.04 0.00-0. complet or 017 ng/mL 06 ed plasma 12:40 troponi n i.cardi ac measu Serum = 56 39-308 complet or 017 U/L ed plasma 12:40 creatin e kinase measure m Serum = 0.8 0.0-3.6 complet or 017 ng/mL ed plasma 12:40 creatin e kinase MB measu Serum = 1.4 0-4.0 complet or 017 U/L ed plasma 12:40 creatin e kinase MB (CK-M Blood lactic acid measurement (moles/vol (02-19-2017 12:40) Blood = 0.8 0.4-2.0 complet lactic 017 mmol/L ed acid 12:40 measure ment (moles/ vol Comprehensive metabolic panel (01-27-2017 04:50) Serum = [...] blood 04:50 platele t mean volume dillan Walker % = 6.2 % 1.7-9.3 complet 017 [...] blood 04:50 eosinop hil count Baso % = 0.2 % 0.1-2.0 complet 017 ed 04:50 NT-proBNP SerPl-mCnc (01-11-2017 10:51) NT-proB 2724 0-899 complet FERN PICKER 017 pg/mL ed SerPl-m 10:51 Cnc Differential [...] SerPl-mCnc (12-13-2016 13:36) NT-proB 3518 0-899 complet FERN PICKER 017 pg/mL ed SerPl-m 13:36 Cnc Magnesium SerPl-mCnc (09-08-2016 04:24) Magnesi 2.0 1.9-2.4 complet um 017 mg/dL ed SerPl-m 04:24 Cnc
--- OUTSIDE RECORDS SUMMARY | 2017-03-11 04:21 | External Medical Summary Rpt | CCD ---
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
[2017-03-11] MEDS ORDERED: INSULIN AS100 UNITS/ SC (04:23)
--- OUTSIDE RECORDS SUMMARY | 2017-03-11 04:26 | External Medical Summary Rpt | CCD ---
Demographics Preferred Language Faroese Marital Status Unknown Protestant Affiliation Unknown Race Unknown Ethnic Group Unknown Author Author , NOREEN SORTO Address Unknown Phone [email or web address] Care Team Providers Care Equal Opportunity Representative Name Role Phone [email or web address], Unavailable Unavailable [facility], [facility]available Unavailable [facility] Unavailable [facility], [facility], Unavailable Unavailable [facility] # Unavailable Unavailable [id number], [facility] # 4847 [facility] [id number] # Unavailable Unavailable [id number], [facility] [id number] # [id number] [facility], Unavailable Unavailable [facility] Unavailable Unavailable [id number] # [id number], [facility] [id number] # [id number] Purpose Continuity of Care Document [...] 4 MG 48 47 TA BL ET NO 00 09 06 5 15 30 KM 68 PA Ac VO 16 -2 -2 0. AR 38 RS ti LO 93 0- 8- 00 T 08 ON ve G 69 20 20 0 PH 1 S VT 61 12 13 AR JE X 9 MA RE 70 CY MY -3 # C 0 FL 48 EX 47 PE N SY RN ME 00 02 06 4 60 30 KM 68 PA Ac TO 37 -0 -2 0. AR 38 RS ti DE 80 6- 8- 00 T 07 ON ve OL 03 20 20 0 PH 5 S OL 21 13 13 AR JE 0 MA RE TA CY MY RT # C RA TE 48 47 50 MG TA B AM 00 04 06 4 60 30 [...] 69 20 20 0 PH 1 S VT 61 12 13 AR JE X 9 MA RE 70 CY MY -3 # C 0 FL 48 EX 47 PE N SY RN ME 00 02 05 4 60 30 KM 68 PA Ac TO 37 -0 -3 0. AR 38 RS ti DE 80 6- 1- 00 T 07 ON ve OL 03 20 20 0 PH 5 S OL 21 13 13 AR JE 0 MA RE TA CY MY RT # C RA TE 48 47 50 MG TA B RO 23 02 05 [...] 47 TA BL ET AM 00 04 05 4 60 30 KM 68 PA Ac IT 60 -1 -2 0. AR 39 RS ti RI 32 1- 0- 00 T 86 ON ve PT 21 20 20 0 PH 7 S YL 42 13 13 AR JE IN 1 MA RE E CY MY HC # C L 50 48 47 MG TA B NO 00 09 05 5 15 30 KM 68 PA Ac VO 16 -2 -0 0. AR 38 RS ti LO 93 0- 2- 00 T 08 ON ve G 69 20 20 0 PH 1 S VT 61 12 13 AR JE X 9 MA RE 70 CY MY -3 # C 0 FL 48 EX 47 PE N SY RN BD 08 12 05 9 10 30 [...] 8M MX 31 G ME 00 02 05 4 60 30 KM 68 PA Ac TO 37 -0 -0 0. AR 38 RS ti DE 80 6- 2- 00 T 07 ON ve OL 03 20 20 0 PH 5 S OL 21 13 13 AR JE 0 MA RE TA CY MY RT # C RA TE 48 47 50 MG TA B RO 23 02 05 [...] RE CY MY # C 48 47 AM 00 04 04 4 60 30 KM 68 PA Ac IT 60 -1 -1 0. AR 39 RS ti RI 32 1- 5- 00 T 86 ON ve PT 21 20 20 0 PH 7 S YL 42 13 13 AR JE IN 1 MA RE E CY MY HC # C L 50 48 47 MG TA B EN 64 02 04 11 30 30 KM 68 PA Ac AL 67 -1 -0 0. AR 38 RS ti AP 90 4- 5- 00 T 26 ON ve RI 92 20 20 0 PH 8 S L 60 13 13 AR JE MA 2 MA RE LE CY MY AT # C E 20 48 47 MG TA B FU 00 03 04 1 30 30 KM 68 PA Ac RO 37 -0 -0 0. AR 38 RS ti SE 80 7- 5- 00 T 83 ON ve VT 21 20 20 0 PH 2 S DE 61 13 13 AR JE 0 MA RE 40 CY MY # C MG 48 TA 47 BL ET 14 11 04 3 90 30 KM 68 PA Ac 55 -1 -0 0. AR 38 RS ti 00 4- 5- 00 T 20 ON ve 51 20 20 0 PH 5 S 20 12 13 AR JE 4 MA RE CY MY # C 48 47 NO 00 09 04 5 15 30 KM 68 PA Ac VO 16 -2 -0 0. AR 38 RS ti LO 93 0- 5- 00 T 08 ON ve G 69 20 20 0 PH 1 S VT 61 12 13 AR JE X 9 MA RE 70 CY MY -3 # C 0 FL 48 EX 47 PE N SY RN RO 23 02 04 4 30 30 KM 68 PA Ac PI 15 -0 -0 0. AR 38 RS ti NI 50 6- 5- 00 T 07 ON ve RO 12 20 20 0 PH 7 S LE 60 13 13 AR JE 1 MA RE HC CY MY L # C 4 MG 48 47 TA BL ET ME 00 02 04 4 60 30 KM 68 PA Ac TO 37 -0 -0 0. AR 38 RS ti DE 80 6- 5- 00 T 07 ON ve OL 03 20 20 0 PH 5 S OL 21 13 13 AR JE 0 MA RE TA CY MY RT # C RA TE 48 47 50 MG TA B ME 00 02 03 4 60 30 KM 68 PA Ac TO 37 -0 -0 0. AR 38 RS ti DE 80 6- 8- 00 T 07 ON ve OL 03 20 20 0 PH 5 S OL 21 13 13 AR JE 0 MA RE TA CY MY RT # C RA TE 48 47 50 MG TA B BD 08 12 03 [...] ND 47 L 8M MX 31 G EN 64 02 03 11 30 30 KM 68 PA Ac AL 67 -1 -0 0. AR 38 RS ti AP 90 4- 8- 00 T 26 ON ve RI 92 20 20 0 PH 8 S L 60 13 13 AR JE MA 2 MA RE LE CY MY AT # C E 20 48 47 MG TA B RO 43 02 03 4 30 30 KM 68 PA Ac PI 54 -0 -0 0. AR 38 RS ti NI 70 6- 8- 00 T 07 ON ve RO 27 20 20 0 PH 7 S LE 31 13 13 AR JE 0 MA RE HC CY MY L # C 4 MG 48 47 TA BL ET 14 11 03 3 90 30 KM [...] 69 20 20 0 PH 1 S VT 61 12 13 AR JE X 9 MA RE 70 CY MY -3 # C 0 FL 48 EX 47 PE N SY RN FU 00 03 03 1 30 30 KM 68 PA Ac RO 37 -0 -0 0. AR 38 RS ti SE 80 7- 8- 00 T 83 ON ve VT 21 20 20 0 PH 2 S [...] MG # TA 71 BL 74 ET FU 00 09 10 3 30 30 KM 69 PA Ac RO 37 -1 -2 .0 AR 26 RS ti SE 80 4- 7- 00 T 12 ON ve VT 21 20 20 PH 8 S DE 61 11 11 AR JE 0 MA RE 40 CY MY 71 C MG 74 # TA BL 71 ET 74 EN 64 09 10 3 60 30 KM 69 PA Ac AL 67 -1 -2 .0 AR 26 RS ti AP 90 4- 7- 00 T 12 ON ve RI 92 20 20 PH 6 S L 50 11 11 AR JE MA 2 MA RE LE CY MY AT 71 C E 74 10 # MG 71 74 TA B CR 00 09 10 6 30 30 KM 69 PA Ac ES 31 -0 -2 .0 AR 25 YN ti TO 00 1- 7- 00 T 46 E ve R 75 20 20 PH 4 VA 10 19 11 11 AR UG 0 MA HN MG CY W 71 TA 74 BL # ET 71 74 ME 57 01 10 6 60 30 KM 69 PA Ac TO 66 -0 -2 .0 AR 11 YN ti DE 40 4- 7- 00 T 00 E ve OL 47 20 20 PH 6 VA OL 75 11 11 AR UG 8 MA HN TA CY W RT 71 RA 74 TE # 50 71 74 MG TA B DE 00 10 10 0 21 6 KM 69 PA Ac ED 60 -1 -2 .0 AR 27 RS ti NI 35 4- 2- 00 T 87 ON ve SO 33 20 20 PH 5 S NE 81 11 11 AR JE 5 MA RE 10 CY MY 71 C MG 74 # TA B 71 DO 74 SE PA CK TI 00 09 10 5 30 30 PA 61 DU Ac ZA 18 -1 -0 .0 SA 08 RR ti NI 54 9- 7- 00 DE 62 ET ve DI 40 20 20 NA 7 T NE 05 11 11 LE 1 PH NA HC AR RD L MA R 4 CY MG TA BL ET LY 00 09 10 1 90 30 PA 40 DU Ac RI 07 -0 -0 .0 SA 55 RR ti CA 11 9- 7- 00 DE 66 ET ve 01 20 20 NA 9 T 50 36 11 11 LE 8 PH NA MG AR RD MA R CA CY PS UL E EN 60 09 10 0 90 30 PA 20 DU Ac DO 95 -0 -0 .0 SA 97 RR ti CE 10 9- 7- 00 DE 75 ET ve T 71 20 20 NA 7 T 10 27 11 11 LE -3 0 PH NA [address] MA R MG CY TA BL ET MO 00 09 10 0 60 30 PA 20 DU Ac RP 40 -0 -0 .0 SA 97 RR ti HI 68 9- 7- 00 DE 75 ET ve NE 31 20 20 NA 6 T 50 11 11 LE CLARK 1 PH NA LF AR RD MA R ER CY 15 MG TA BL ET RO 23 09 [...] MG # TA 71 BL 74 ET FU 00 09 09 3 30 30 KM 69 PA Ac RO 37 -1 -2 .0 AR 26 RS ti SE 80 4- 8- 00 T 12 ON ve VT 21 20 20 PH 8 S DE 61 11 11 AR JE 0 MA RE 40 CY MY 71 C MG 74 # TA BL 71 ET 74 EN 64 09 09 3 60 30 KM 69 PA Ac AL 67 -1 -2 .0 AR 26 RS ti AP 90 4- 8- 00 T 12 ON ve RI 92 20 20 PH 6 S L 50 11 11 AR JE MA 2 MA RE LE CY MY AT 71 C E 74 10 # MG 71 74 TA B CR 00 09 09 6 30 30 KM 69 PA Ac ES 31 -0 -2 .0 AR 25 YN ti TO 00 T 46 E ve R 75 20 20 PH 4 VA 10 19 11 11 AR UG 0 MA HN MG CY W 71 TA 74 BL # ET 71 74 NO 00 06 09 3 15 30 KM 69 JU Ac VO 16 -2 -[address] ti LO 93 1 8 T 61 IC ve G 69 20 20 PH 3 E VT 61 11 11 AR SA X 9 MA RA 70 CY H -3 71 M 0 74 FL # EX PE 71 N 74 SY RN ME 00 01 09 6 60 30 KM 69 PA Ac TO 09 -0 -2 .0 AR 11 YN ti DE 30 4- 8 T 00 E ve OL 73 20 20 PH 6 VA OL 31 11 11 AR UG 0 MA HN TA CY W RT 71 RA 74 TE # 50 71 74 MG TA B BD 08 12 09 5 10 30 [...] L 71 8M 74 MX 31 G LY 00 09 09 1 90 30 PA 40 DU Ac RI 07 -0 -0 .0 SA 55 RR ti CA 11 9- DE 66 ET ve 01 20 20 NA 9 T 50 36 11 11 LE 8 PH NA MG AR RD MA R CA CY PS UL E MO 00 09 09 0 60 30 PA 20 DU Ac RP 40 -0 -0 .0 SA 97 RR ti HI 68 9 00 DE 35 ET ve NE 31 20 20 NA 1 T 50 11 11 LE CLARK 1 PH NA LF AR RD MA R ER CY 15 MG TA BL ET EN 60 09 09 0 90 30 PA 20 DU Ac DO 95 -0 -0 .0 SA 97 RR ti CE 10 9- 9- 00 DE 35 ET ve T 71 20 20 NA 0 T 10 27 11 11 LE -3 0 PH NA [address] MA R MG CY TA BL ET RO 23 09 09 0 30 30 KM 69 Ac PI 15 -0 -0 .0 AR 25 HB ti NI 50 6- 6- 00 T 62 Y ve RO 12 20 20 PH 8 AZAM LE 60 11 11 AR NE 1 MA S HC CY LA L 71 UR 4 74 A MG # P TA 71 BL 74 ET 00 09 09 0 30 30 KM 69 Ac 55 -0 -0 .0 AR 25 HB ti 50 6- 6- 00 T 62 Y ve 05 20 20 PH 2 AZAM 90 11 11 AR NE 5 MA S CY LA 71 UR 74 A # P 71 74 CR 00 09 09 6 30 30 [...] 4- 1- 00 T 00 E ve VT 21 20 20 PH 9 VA DE 61 11 11 AR UG 0 MA HN 40 CY W 71 MG 74 # TA BL 71 ET 74 NO 00 06 08 3 15 30 KM 69 JU Ac VO 16 -2 -[address] ti LO 93 1- 0- 00 T 61 IC ve G 69 20 20 PH 3 E VT 61 11 11 AR SA X 9 MA RA 70 CY H -3 71 M 0 74 FL # EX PE 71 N 74 SY RN EN 00 01 08 6 60 30 KM 69 PA Ac AL 09 -0 -3 .0 AR 11 YN ti AP 30 4- 0- 00 T 00 E ve RI 02 20 20 PH 8 VA L 81 11 11 AR UG MA 0 MA HN LE CY W AT 71 E 74 10 # MG 71 74 TA B ME 00 01 08 6 60 30 KM 69 PA Ac TO 09 -0 -3 .0 AR 11 YN ti DE 30 4- 0- 00 T 00 E ve OL 73 20 20 PH 6 VA OL 31 11 11 AR UG 0 MA HN TA CY W RT 71 RA 74 TE # 50 71 74 MG TA B TI 00 03 08 5 30 30 PA 61 LA Ac ZA 18 -0 -1 .0 SA 07 RS ti NI 54 8- 0- 00 DE 30 ON ve DI 40 20 20 NA 1 NE 01 11 11 LA 0 PH UR HC AR EN L MA K 4 CY MG TA BL ET LY 00 07 08 1 90 30 PA 40 LA Ac RI 07 -1 -1 .0 SA 55 RS ti CA 11 1- 0- 00 DE 42 ON ve 01 20 20 NA 9 25 26 11 11 LA 8 PH UR MG AR EN MA K CA CY PS UL E EN 60 07 08 0 90 30 PA 20 LA Ac DO 95 -1 -1 .0 SA 96 RS ti CE 10 1- 0- 00 DE 88 ON ve T 71 20 20 NA 8 10 27 11 11 LA -3 0 PH UR 25 AR EN MA K MG CY TA BL ET MO 00 07 08 0 60 30 PA 20 LA Ac RP 40 -1 -1 .0 SA 96 RS ti HI 68 1- 0- 00 DE 88 ON ve NE 31 20 20 NA 7 50 11 11 LA CLARK 1 PH UR LF AR EN MA K ER CY 15 MG TA BL ET BD 08 12 [...] 71 8M 74 MX 31 G RO 23 06 08 2 30 30 KM 69 JU Ac PI 15 -0 -[address] ti NI 50 2- 3- 00 T 52 IC ve RO 12 20 20 PH 9 E LE 60 11 11 AR SA 1 MA RA HC CY H L 71 M 4 74 MG # TA 71 BL 74 ET CR 00 01 08 6 30 30 [...] 4- 3- 00 T 00 E ve VT 21 20 20 PH 9 VA DE 61 11 11 AR UG 0 MA HN 40 CY W 71 MG 74 # TA BL 71 ET 74 NO 00 06 07 3 15 30 KM 69 JU Ac VO 16 -2 -[address] ti LO 93 1- 2- 00 T 61 IC ve G 69 20 20 PH 3 E VT 61 11 11 AR SA X 9 MA RA 70 CY H -3 71 M 0 74 FL # EX PE 71 N 74 SY RN FL 00 04 07 3 16 30 KM 69 JU Ac UT 05 -2 -[address] ti IC 43 9- 2- 00 T 70 IC ve 27 20 20 PH 2 E ON 09 11 11 AR SA E 9 MA RA DE CY H OP 71 M 74 50 # MC 71 G 74 SP RA Y GA 14 04 07 3 60 30 KM 69 JU Ac BA 55 -2 -[address] ti PE 00 6- 2- 00 T 54 IC ve NT 51 20 20 PH 2 E IN 20 11 11 AR SA 2 MA RA 30 CY H 0 71 M MG 74 # CA PS 71 UL 74 E EN 00 01 07 6 60 30 KM 69 PA Ac AL 09 -0 -2 .0 AR 11 YN ti AP 30 4- 2- 00 T 00 E ve RI 02 20 20 PH 8 VA L 81 11 11 AR UG MA 0 MA HN LE CY W AT 71 E 74 10 # MG 71 74 TA B ME 00 01 07 6 60 30 KM 69 PA Ac TO 09 -0 -2 .0 AR 11 YN ti DE 30 4- 2- 00 T 00 E ve OL 73 20 20 PH 6 VA OL 31 11 11 AR UG 0 MA HN TA CY W RT 71 RA 74 TE # 50 71 74 MG TA B TI 00 03 07 5 30 30 PA 61 LA Ac ZA 18 -0 -1 .0 SA 07 RS ti NI 54 8- 1- 00 DE 30 ON ve DI 40 20 20 NA 1 NE 01 11 11 LA 0 PH UR HC AR EN L MA K 4 CY MG TA BL ET LY 00 07 07 1 69 30 PA 40 LA Ac RI 07 -1 -1 .0 SA 55 RS ti CA 11 1- 1- 00 DE 42 ON ve 01 20 20 NA 9 25 26 11 11 LA 8 PH UR MG AR EN MA K CA CY PS UL E MO 00 07 07 0 60 30 PA 20 LA Ac RP 40 -1 -1 .0 SA 96 RS ti HI 68 1- - 00 DE 46 ON ve NE 31 20 20 NA 1 50 11 11 LA CLARK 1 PH UR LF AR EN MA K ER CY 15 MG TA BL ET EN 60 07 07 0 90 30 PA 20 LA Ac DO 95 -1 -1 .0 SA 96 RS ti CE 10 1- - 00 DE 46 ON ve T 71 20 20 NA 0 10 27 11 11 LA -3 0 PH UR 25 AR EN MA K MG CY TA BL ET RO 23 06 06 2 30 30 KM 69 JU Ac PI 15 -0 -[address] ti NI 50 2- 0- 00 T 52 IC ve RO 12 20 20 PH 9 E LE 60 11 11 AR SA 1 MA RA HC CY H L 71 M 4 74 MG # TA 71 BL 74 ET CR 00 01 06 6 30 30 KM 69 PA Ac ES 31 -0 -3 .0 AR 11 YN ti TO 00 4- 0- 00 T 01 E ve R 75 20 20 PH 0 VA 10 19 11 11 AR UG 0 MA HN MG CY W 71 TA 74 BL # ET 71 74 FU 00 01 06 6 30 30 KM 69 PA Ac RO 37 -0 -3 .0 AR 11 YN ti SE 80 4- 0- 00 T 00 E ve VT 21 20 20 PH 9 VA DE 61 11 11 AR UG 0 MA HN 40 CY W 71 MG 74 # TA BL 71 ET 74 NO 00 06 06 3 15 30 KM 69 JU Ac VO 16 -2 -[address] ti LO 93 1- 2- 00 T 61 IC ve G 69 20 20 PH 3 E VT 61 11 11 AR SA X 9 MA RA 70 CY H -3 71 M 0 74 FL # EX PE 71 N 74 SY RN FL 00 04 06 3 16 30 KM 69 JU Ac UT 05 -2 -[address] ti IC 43 9- 2- 00 T 70 IC ve 27 20 20 PH 2 E ON 09 11 11 AR SA E 9 MA RA DE CY H OP 71 M 74 50 # MC 71 G 74 SP RA Y GA 14 04 06 3 60 30 KM 69 JU Ac BA 55 -2 -[address] ti PE 00 6- 0- 00 T 54 IC ve NT 51 20 20 PH 2 E IN 20 11 11 AR SA 2 MA RA 30 CY H 0 71 M MG 74 # CA PS 71 UL 74 E EN 64 01 06 6 60 30 KM 69 PA Ac AL 67 -0 -2 .0 AR 11 YN ti AP 90 4- 0- 00 T 00 E ve RI 92 20 20 PH 8 VA L 50 11 11 AR UG MA 2 MA HN LE CY W AT 71 E 74 10 # MG 71 74 TA B ME 00 01 06 6 60 30 KM 69 PA Ac TO 09 -0 -2 .0 AR 11 YN ti DE 30 4- 0- 00 T 00 E ve OL 73 20 20 PH 6 VA OL 31 11 11 AR UG 0 MA HN TA CY W RT 71 RA 74 TE # 50 71 74 MG TA B TI 00 03 06 5 30 30 PA 61 LA Ac ZA 18 -0 -1 .0 SA 07 RS ti NI 54 8- 0- 00 DE 30 ON ve DI 40 20 20 NA 1 NE 01 11 11 LA 0 PH UR HC AR EN L MA K 4 CY MG TA BL ET EN 60 05 06 0 90 30 PA 20 LA Ac DO 95 -1 -1 .0 SA 96 RS ti CE 10 2- 0- 00 DE 02 ON ve T 71 20 20 NA 9 10 27 11 11 LA -3 0 PH UR 25 AR EN MA K MG CY TA BL ET MO 00 05 06 0 60 30 PA 20 LA Ac RP 40 -1 -1 .0 SA 96 RS ti HI 68 2- 0- 00 DE 02 ON ve NE 31 20 20 NA 8 50 11 11 LA CLARK 1 PH UR LF AR EN MA K ER CY 15 MG TA BL ET BD 08 12 [...] 74 MX 31 G RO 00 06 06 2 30 30 KM 69 JU Ac PI 05 -0 -[address] ti NI 40 2- 2- 00 T 52 IC ve RO 12 20 20 PH 9 E LE 12 11 11 AR SA 5 MA RA HC CY H L 71 M 4 74 MG # TA 71 BL 74 ET 00 12 06 4 12 30 KM 69 KI Ac 55 -3 -0 0. AR 12 NG ti 50 0- 2- 00 T 83 ER ve 05 20 20 0 PH 4 Y 90 10 11 AR JE 5 MA NN CY IF 71 ER 74 B # 71 74 CR 00 01 06 6 30 30 KM 69 PA Ac ES 31 -0 -0 .0 AR 11 YN ti TO 00 4- 2- 00 T 01 E ve R 75 20 20 PH 0 VA 10 19 11 11 AR UG 0 MA HN MG CY W 71 TA 74 BL # ET 71 74 FU 00 01 06 6 30 30 KM 69 PA Ac RO 37 -0 -0 .0 AR 11 YN ti SE 80 4- 2- 00 T 00 E ve VT 21 20 20 PH 9 VA DE 61 11 11 AR UG 0 MA HN 40 CY W 71 MG 74 # TA BL 71 ET 74 FL 00 04 05 3 16 30 KM 69 JU Ac UT 05 -2 -[address] ti IC 43 9- 6- 00 T 70 IC ve 27 20 20 PH 2 E ON 09 11 11 AR SA E 9 MA RA DE CY H OP 71 M 74 50 # MC 71 G 74 SP RA Y GA 14 04 05 3 60 30 KM 69 JU Ac BA 55 -2 -[address] ti PE 00 6- 4- 00 T 54 IC ve NT 51 20 20 PH 2 E IN 20 11 11 AR SA 2 MA RA 30 CY H 0 71 M MG 74 # CA PS 71 UL 74 E EN 64 01 05 6 60 30 KM 69 PA Ac AL 67 -0 -2 .0 AR 11 YN ti AP 90 4- 4- 00 T 00 E ve RI 92 20 20 PH 8 VA L 50 11 11 AR UG MA 2 MA HN LE CY W AT 71 E 74 10 # MG 71 74 TA B ME 00 01 05 6 60 30 KM 69 PA Ac TO 09 -0 -2 .0 AR 11 YN ti DE 30 4- 4- 00 T 00 E ve OL 73 20 20 PH 6 VA OL 31 11 11 AR UG 0 MA HN TA CY W RT 71 RA 74 TE # 50 71 74 MG TA B NO 00 12 05 5 15 30 KM 69 KI Ac VO 16 -3 -2 .0 AR 10 NG ti LO 93 0- 4- 00 T 66 ER ve G 69 20 20 PH 5 Y VT 61 10 11 AR JE X 9 MA NN 70 CY IF -3 71 ER 0 74 B FL # EX PE 71 N 74 SY RN TI 00 03 05 5 30 30 PA 61 LA Ac ZA 18 -0 -1 .0 SA 07 RS ti NI 54 8- 2- 00 DE 30 ON ve DI 40 20 20 NA 1 NE 01 11 11 LA 0 PH UR HC AR EN L MA K 4 CY MG TA BL ET EN 60 05 05 0 90 30 PA 20 LA Ac DO 95 -1 -1 .0 SA 95 RS ti CE 10 2- 2- 00 DE 62 ON ve T 71 20 20 NA 3 10 27 11 11 LA -3 0 PH UR 25 AR EN MA K MG CY TA BL ET MO 00 05 05 0 60 30 PA 20 LA Ac RP 40 -1 -1 .0 SA 95 RS ti HI 68 2- 2- 00 DE 62 ON ve NE 31 20 20 NA 2 50 11 11 LA CLARK 1 PH UR LF AR EN MA K ER CY 15 MG TA BL ET 00 12 05 4 12 30 KM 69 KI Ac 55 -3 -0 0. AR 12 NG ti 50 0- 5- 00 T 83 ER ve 05 20 20 0 PH 4 Y 90 10 11 AR JE 5 MA NN CY IF 71 ER 74 B # 71 74 CR 00 01 05 6 30 30 KM 69 PA Ac ES 31 -0 -0 .0 AR 11 YN ti TO 00 4- 5- 00 T 01 E ve R 75 20 20 PH 0 VA 10 19 11 11 AR UG 0 MA HN MG CY W 71 TA 74 BL # ET 71 74 FU 00 01 05 6 30 30 KM 69 PA Ac RO 37 -0 -0 .0 AR 11 YN ti SE 80 4- 5- 00 T 00 E ve VT 21 20 20 PH 9 VA DE 61 11 11 AR UG 0 MA HN 40 CY W 71 MG 74 # TA BL 71 ET 74 RO 00 12 05 5 30 30 KM 69 Ac PI 05 -1 -0 .0 AR 09 HB ti NI 40 4- 5- 00 T 68 Y ve RO 12 20 20 PH 7 AZAM LE 12 10 11 AR NE 5 MA S HC CY LA L 71 UR 4 74 A MG # P TA 71 BL 74 ET FL 00 04 04 3 16 30 KM 69 JU Ac UT 05 -2 -[address] ti IC 43 9- 9- 00 T 70 IC ve 27 20 20 PH 2 E ON 09 11 11 AR SA E 9 MA RA DE CY H OP 71 M 74 50 # MC 71 G 74 SP RA Y GA 14 04 04 3 60 30 KM 69 JU Ac BA 55 -2 -[address] ti PE 00 6- 7- 00 T 54 IC ve NT 51 20 20 PH 2 E IN 20 11 11 AR SA 2 MA RA 30 CY H 0 71 M MG 74 # CA PS 71 UL 74 E EN 64 01 04 6 60 30 KM 69 PA Ac AL 67 -0 -2 .0 AR 11 YN ti AP 90 4- 7- 00 T 00 E ve RI 92 20 20 PH 8 VA L 50 11 11 AR UG MA 2 MA HN LE CY W AT 71 E 74 10 # MG 71 74 TA B NO 00 12 04 5 15 30 KM 69 KI Ac VO 16 -3 -2 .0 AR 10 NG ti LO 93 0- 7- 00 T 66 ER ve G 69 20 20 PH 5 Y VT 61 10 11 AR JE X 9 MA NN 70 CY IF -3 71 ER 0 74 B FL # EX PE 71 N 74 SY RN ME 00 11 04 6 60 30 KM 69 PA Ac TO 09 -0 -2 .0 AR 07 YN ti DE 30 1- 7- 00 T 00 E ve OL 73 20 20 PH 4 VA OL 31 10 11 AR UG 0 MA HN TA CY W RT 71 RA 74 TE # 50 71 74 MG TA B TI 55 03 04 5 30 30 PA 61 LA Ac ZA 11 -0 -1 .0 SA 07 RS ti NI 10 8- 2- 00 DE 30 ON ve DI 18 20 20 NA 1 NE 01 11 11 LA 0 PH UR HC AR EN L MA K 4 CY MG TA BL ET MO 00 03 04 0 60 30 PA 20 FL Ac RP 40 -0 -1 .0 SA 95 IN ti HI 68 8- 2- 00 DE 16 CH ve NE 31 20 20 NA 7 UM 50 11 11 CLARK 1 PH EL LF AR LE MA N ER CY J 15 MG TA BL ET EN 60 03 04 0 90 30 PA 20 FL Ac DO 95 -0 -1 .0 SA 95 IN ti CE 10 8- 2- 00 DE 16 CH ve T 71 20 20 NA 6 UM 10 27 11 11 -3 0 PH EL 25 AR LE MA N MG CY J TA BL ET 00 12 04 4 12 30 KM 69 KI Ac 55 -3 -0 0. AR 12 NG ti 50 0- 8- 00 T 83 ER ve 05 20 20 0 PH 4 Y 90 10 11 AR JE 5 MA NN CY IF 71 ER 74 B # 71 74 CR 00 01 04 6 30 30 KM 69 PA Ac ES 31 -0 -0 .0 AR 11 YN ti TO 00 4- 8- 00 T 01 E ve R 75 20 20 PH 0 VA 10 19 11 11 AR UG 0 MA HN MG CY W 71 TA 74 BL # ET 71 74 FU 00 01 04 6 30 30 KM 69 PA Ac RO 37 -0 -0 .0 AR 11 YN ti SE 80 4- 8- 00 T 00 E ve VT 21 20 20 PH 9 VA DE 61 11 11 AR UG 0 MA HN 40 CY W 71 MG 74 # TA BL 71 ET 74 RO 23 12 04 5 30 30 KM 69 Ac PI 15 -1 -0 .0 AR 09 HB ti NI 50 4- 8- 00 T 68 Y ve RO 12 20 20 PH 7 AZAM LE 60 10 11 AR NE 1 MA S HC CY LA L 71 UR 4 74 A MG # P TA 71 BL 74 ET EN 00 01 03 6 60 30 KM 69 PA Ac AL 09 -0 -3 .0 AR 11 YN ti AP 30 4- 0- 00 T 00 E ve RI 02 20 20 PH 8 VA L 81 11 11 AR UG MA 0 MA HN LE CY W AT 71 E 74 10 # MG 71 74 TA B FL 00 12 03 3 16 30 KM 69 KI Ac UT 05 -3 -3 .0 AR 10 NG ti IC 43 0- 0- 00 T 67 ER ve 27 20 20 PH 5 Y ON 09 10 11 AR JE E 9 MA NN DE CY IF OP 71 ER 74 B 50 # MC 71 G 74 SP RA Y NO 00 12 03 5 15 30 KM 69 KI Ac VO 16 -3 -3 .0 AR 10 NG ti LO 93 0- 0- 00 T 66 ER ve G 69 20 20 PH 5 Y VT 61 10 11 AR JE X 9 MA NN 70 CY IF -3 71 ER 0 74 B FL # EX PE 71 N 74 SY RN ME 00 11 03 6 60 30 KM 69 PA Ac TO 09 -0 -3 .0 AR 07 YN ti DE 30 1- 0- 00 T 00 E ve OL 73 20 20 PH 4 VA OL 31 10 11 AR UG 0 MA HN TA CY W RT 71 RA 74 TE # 50 71 74 MG TA B GA 14 12 03 3 60 30 KM 69 KI Ac BA 55 -3 -2 .0 AR 10 NG ti PE 00 0- 8- 00 T 67 ER ve NT 51 20 20 PH 4 Y IN 20 10 11 AR JE 2 MA NN 30 CY IF 0 71 ER MG 74 B # CA PS 71 UL 74 E TI 00 03 03 5 30 30 PA 61 LA Ac ZA 18 -0 -1 .0 SA 07 RS ti NI 54 8- 1- 00 DE 30 ON ve DI 40 20 20 NA 1 NE 01 11 11 LA 0 PH UR HC AR EN L MA K 4 CY MG TA BL ET EN 60 03 03 0 90 30 PA 20 FL Ac DO 95 -0 -1 .0 SA 94 IN ti CE 10 8- 1- 00 DE 73 CH ve T 71 20 20 NA 1 UM 10 27 11 11 -3 0 PH EL 25 AR LE MA N MG CY J TA BL ET MO 00 03 03 0 60 30 PA 20 FL Ac RP 40 -0 -1 .0 SA 94 IN ti HI 68 8- 1- 00 DE 73 CH ve NE 31 20 20 NA 0 UM 50 11 11 CLARK 1 PH EL LF AR LE MA N ER CY J 15 MG TA BL ET RO 23 12 [...] TA 71 BL 74 ET 00 12 03 4 12 30 KM 69 KI Ac 55 -3 -0 0. AR 12 NG ti 50 0- 4- 00 T 83 ER ve 05 20 20 0 PH 4 Y 90 10 11 AR JE 5 MA NN CY IF 71 ER 74 B # 71 74 CR 00 01 03 6 30 30 KM 69 PA Ac ES 31 -0 -0 .0 AR 11 YN ti TO 00 4- 4- 00 T 01 E ve R 75 20 20 PH 0 VA 10 19 11 11 AR UG 0 MA HN MG CY W 71 TA 74 BL # ET 71 74 FU 00 01 03 6 30 30 KM 69 PA Ac RO 37 -0 -0 .0 AR 11 YN ti SE 80 4- 4- 00 T 00 E ve VT 21 20 20 PH 9 VA DE 61 11 11 AR UG 0 MA HN 40 CY W 71 MG 74 # TA BL 71 ET 74 EN 00 01 02 6 60 30 KM 69 PA Ac AL 09 -0 -2 .0 AR 11 YN ti AP 30 4- 8- 00 T 00 E ve RI 02 20 20 PH 8 VA L 81 11 11 AR UG MA 0 MA HN LE CY W AT 71 E 74 10 # MG 71 74 TA B FL 00 12 02 3 16 30 KM 69 KI Ac UT 05 -3 -2 .0 AR 10 NG ti IC 43 0- 8- 00 T 67 ER ve 27 20 20 PH 5 Y ON 09 10 11 AR JE E 9 MA NN DE CY IF OP 71 ER 74 B 50 # MC 71 G 74 SP RA Y GA 14 12 02 3 60 30 KM 69 KI Ac BA 55 -3 -2 .0 AR 10 NG ti PE 00 0- 8- 00 T 67 ER ve NT 51 20 20 PH 4 Y IN 20 10 11 AR JE 2 MA NN 30 CY IF 0 71 ER MG 74 B # CA PS 71 UL 74 E NO 00 12 02 5 15 30 KM 69 KI Ac VO 16 -3 -2 .0 AR 10 NG ti LO 93 0- 8- 00 T 66 ER ve G 69 20 20 PH 5 Y VT 61 10 11 AR JE X 9 MA NN 70 CY IF -3 71 ER 0 74 B FL # EX PE 71 N 74 SY RN ME 00 11 02 6 60 30 KM 69 PA Ac TO 09 -0 -2 .0 AR 07 YN ti DE 30 1- 8- 00 T 00 E ve OL 73 20 20 PH 4 VA OL 31 10 11 AR UG 0 MA HN TA CY W RT 71 RA 74 TE # 50 71 74 MG TA B DO 00 02 02 56 [...] 10 0 71 MG 74 CA P TI 55 01 02 1 30 30 PA 61 LA Ac ZA 11 -1 -1 .0 SA 06 RS ti NI 10 4- 0- 00 DE 93 ON ve DI 18 20 20 NA 0 NE 01 11 11 LA 0 PH UR HC AR EN L MA K 4 CY MG TA BL ET MO 00 01 02 0 60 30 PA 20 LA Ac RP 40 -1 -1 .0 SA 94 RS ti HI 68 4- 0- 00 DE 34 ON ve NE 31 20 20 NA 4 50 11 11 LA CLARK 1 PH UR LF AR EN MA K ER CY 15 MG TA BL ET EN 60 01 02 0 90 30 PA 20 LA Ac DO 95 -1 -1 .0 SA 94 RS ti CE 10 4- 0- 00 DE 34 ON ve T 71 20 20 NA 3 10 27 11 11 LA -3 0 PH UR 25 AR EN MA K MG CY TA BL ET RO 23 12 02 [...] 2- 5- 00 T 18 Y ve VT 21 20 20 PH 5 AZAM DE 61 10 11 AR NE 0 MA S 40 CY LA 71 UR MG 74 A # P TA BL 71 ET 74 00 12 02 4 12 30 KM 69 KI Ac 55 -3 -0 0. AR 12 NG ti 50 0- 3- 00 T 83 ER ve 05 20 20 0 PH 4 Y 90 10 11 AR JE 5 MA NN CY IF 71 ER 74 B # 71 74 CR 00 01 02 6 30 30 KM 69 PA Ac ES 31 -0 -0 .0 AR 11 YN ti TO 00 4- 3- 00 T 01 E ve R 75 20 20 PH 0 VA 10 19 11 11 AR UG 0 MA HN MG CY W 71 TA 74 BL # ET 71 74 VA 00 02 02 1 28 14 IN 15 MA Ac NC 33 -0 -0 00 FU 20 NN ti OM 83 2- 2- .0 SI 9 AN ve YC 55 20 20 00 ON IN 24 11 11 MO 8 SO CASTELAN HC TY MM L TI AD 1G ON Y /2 S 00 ML BA G FL 00 12 01 3 16 30 KM 69 KI Ac UT 05 -3 -2 .0 AR 10 NG ti IC 43 0- 6- 00 T 67 ER ve 27 20 20 PH 5 Y ON 09 10 11 AR JE E 9 MA NN DE CY IF OP 71 ER 74 B 50 # MC 71 G 74 SP RA Y GA 14 12 01 3 60 30 KM 69 KI Ac BA 55 -3 -2 .0 AR 10 NG ti PE 00 0- 6- 00 T 67 ER ve NT 51 20 20 PH 4 Y IN 20 10 11 AR JE 2 MA NN 30 CY IF 0 71 ER MG 74 B # CA PS 71 UL 74 E NO 00 12 01 5 15 30 KM 69 KI Ac VO 16 -3 -2 .0 AR 10 NG ti LO 93 0- 6- 00 T 66 ER ve G 69 20 20 PH 5 Y VT 61 10 11 AR JE X 9 MA NN 70 CY IF -3 71 ER 0 74 B FL # EX PE 71 N 74 SY RN ME 00 11 01 6 60 30 KM 69 PA Ac TO 37 -0 -2 .0 AR 07 YN ti DE 80 1- 6- 00 T 00 E ve OL 03 20 20 PH 4 VA OL 21 10 11 AR UG 0 MA HN TA CY W RT 71 RA 74 TE # 50 71 74 MG TA B EN 00 06 01 5 60 30 KM 68 Ac AL 09 -2 -2 .0 AR 99 HB ti AP 30 2- 6- 00 T 18 Y ve RI 02 20 20 PH 4 AZAM L 90 10 11 AR NE MA 1 MA S LE CY LA AT 71 UR E 74 A 20 # P MG 71 74 TA B TI 55 01 01 1 30 30 PA 61 LA Ac ZA 11 -1 -1 .0 SA 06 RS ti NI 10 4- 4- 00 DE 93 ON ve DI 18 20 20 NA 0 NE 01 11 11 LA 0 PH UR HC AR EN L MA K 4 CY MG TA BL ET OX 53 01 01 0 90 30 PA 20 LA Ac YC 74 -1 -1 .0 SA 93 RS ti OD 60 4- 4- 00 DE 99 ON ve ON 20 20 20 NA 3 E- 40 11 11 LA AC 1 PH UR ET AR EN AM MA K IN CY OP HE N 10 -3 25 MO 00 01 01 0 60 30 PA 20 LA Ac RP 40 -1 -1 .0 SA 93 RS ti HI 68 4- 4- 00 DE 99 ON ve NE 31 20 20 NA 2 50 11 11 LA CLARK 1 PH UR LF AR EN MA K ER CY 15 MG TA BL ET RO 00 12 [...] P ET 71 74 DI 00 11 01 6 30 30 KM 69 PA Ac GO 11 -0 -0 .0 AR 07 YN ti XI 59 4- 6- 00 T 30 E ve N 81 20 20 PH 6 VA 12 10 10 11 AR UG 5 3 MA HN MC CY W G 71 TA 74 BL # ET 71 74 FU 00 06 01 5 30 30 KM 68 Ac RO 37 -2 -0 .0 AR 99 HB ti SE 80 2- 6- 00 T 18 Y ve VT 21 20 20 PH 5 AZAM DE 61 10 11 AR NE 0 MA S 40 CY LA 71 UR MG 74 A # P TA BL 71 ET 74 BD 08 12 12 5 10 30 [...] L 71 8M 74 MX 31 G FL 50 12 12 3 16 30 KM 69 KI Ac UT 38 -3 -3 .0 AR 10 NG ti IC 30 0- 0- 00 T 67 ER ve 70 20 20 PH 5 Y ON 01 10 10 AR JE E 6 MA NN DE CY IF OP 71 ER 74 B 50 # MC 71 G 74 SP RA Y GA 14 12 12 3 60 30 KM 69 KI Ac BA 55 -3 -3 .0 AR 10 NG ti PE 00 0- 0- 00 T 67 ER ve NT 51 20 20 PH 4 Y IN 20 10 10 AR JE 2 MA NN 30 CY IF 0 71 ER MG 74 B # CA PS 71 UL 74 E NO 00 12 12 5 15 30 KM 69 KI Ac VO 16 -3 -3 .0 AR 10 NG ti LO 93 0- 0- 00 T 66 ER ve G 69 20 20 PH 5 Y VT 61 10 10 AR JE X 9 MA NN 70 CY IF -3 71 ER 0 74 B FL # EX PE 71 N 74 SY RN ME 00 11 12 6 60 30 KM 69 PA Ac TO 37 -0 -2 .0 AR 07 YN ti DE 80 1- 9- 00 T 00 E ve OL 03 20 20 PH 4 VA OL 21 10 10 AR UG 0 MA HN TA CY W RT 71 RA 74 TE # 50 71 74 MG TA B EN 00 06 12 5 60 30 KM 68 Ac AL 09 -2 -2 .0 AR 99 HB ti AP 30 2- 9- 00 T 18 Y ve RI 02 20 20 PH 4 AZAM L 90 10 10 AR NE MA 1 MA S LE CY LA AT 71 UR E 74 A 20 # P MG 71 74 TA B RO 00 12 12 5 [...] 71 BL 74 ET AC 64 01 12 1 90 30 KM 69 DU Ac TO 76 -1 -0 .0 AR 07 NN ti S 40 5- 6- 00 T 53 IN ve 15 15 20 20 PH 6 G 10 10 10 AR MA MG 4 MA LE CY SH TA 71 EA BL 74 ET # 71 74 DI 00 11 12 6 30 30 KM 69 PA Ac GO 11 -0 -0 .0 AR 07 YN ti XI 59 4- 6- 00 T 30 E ve N 81 20 20 PH 6 VA 12 10 10 10 AR UG 5 3 MA HN MC CY W G 71 TA 74 BL # ET 71 74 CR 00 06 12 5 30 30 KM 68 Ac ES 31 -2 -0 .0 AR 99 HB ti TO 00 2- 6- 00 T 18 Y ve R 75 20 20 PH 6 AZAM 10 19 10 10 AR NE 0 MA S MG CY LA 71 UR TA 74 A BL # P ET 71 74 FU 00 06 12 5 30 30 KM 68 Ac RO 37 -2 -0 .0 AR 99 HB ti SE 80 2- 6- 00 T 18 Y ve VT 21 20 20 PH 5 AZAM DE 61 10 10 AR NE 0 MA S 40 CY LA 71 UR MG 74 A # P TA BL 71 ET 74 TI 55 11 12 1 60 30 PA 61 LA Ac ZA 11 -0 -0 .0 SA 06 RS ti NI 10 5- 2- 00 DE 48 ON ve DI 17 20 20 NA 0 NE 91 10 10 LA 0 PH UR HC AR EN L MA K 2 CY MG TA BL ET OX 53 11 12 0 12 30 PA 20 LA Ac YC 74 -0 -0 0. SA 93 RS ti OD 60 5- 2- 00 DE 44 ON ve ON 20 20 20 0 NA 5 E- 40 10 10 LA AC 1 PH UR ET AR EN AM MA K IN CY OP HE N 10 -3 25 LY 00 11 11 90 30 KM 44 Ac RI 07 -3 -3 .0 AR 61 HB ti CA 11 0- 0- 00 T 58 Y ve 01 20 20 PH 0 AZAM 25 26 10 10 AR NE 8 MA S MG CY LA 71 UR CA 74 A PS # P UL E 71 74 BD 08 03 11 10 30 KM 88 Ac 29 -1 -2 0. AR 11 HB ti UL 03 8 9- 00 T 64 Y ve TR 20 20 20 0 PH 8 AZAM A- 10 10 10 AR NE FI 9 MA S NE CY LA 71 UR PE 74 A N # P ND L 71 8M 74 MX 31 G ME 00 11 11 6 60 30 KM 69 PA Ac TO 09 -0 -2 .0 AR 07 YN ti DE 30 1- 9- 00 T 00 E ve OL 73 20 20 PH 4 VA OL 31 10 10 AR UG 0 MA HN TA CY W RT 71 RA 74 TE # 50 71 74 MG TA B NO 00 09 11 1 15 30 KM 69 BH Ac VO 16 -2 -2 .0 AR 04 AG ti LO 93 3 9 00 T 56 RA ve G 69 20 20 PH 8 TH VT 61 10 10 AR X 9 MA RA 70 CY -3 71 ND 0 74 ER FL # S EX PE 71 N 74 SY RN EN 00 06 11 5 60 30 KM 68 Ac AL 09 -2 -2 .0 AR 99 HB ti AP 30 9 00 T 18 Y ve RI 02 20 20 PH 4 AZAM L 90 10 10 AR NE MA 1 MA S LE CY LA AT 71 UR E 74 A 20 # P MG 71 74 TA B AC 64 01 11 1 90 30 KM 69 DU Ac TO 76 -1 -0 .0 AR 07 NN ti S 40 5- 8- 00 T 53 IN ve 15 15 20 20 PH 6 G 10 10 10 AR MA MG 4 MA LE CY SH TA 71 EA BL 74 ET # 71 74 CR 00 06 11 5 30 30 KM 68 Ac ES 31 -2 -0 .0 AR 99 HB ti TO 00 2 8- 00 T 18 Y ve R 75 20 20 PH 6 AZAM 10 19 10 10 AR NE 0 MA S MG CY LA 71 UR TA 74 A BL # P ET 71 74 FU 00 06 11 5 30 30 KM 68 Ac RO 37 -2 -0 .0 AR 99 HB ti SE 80 2- 8- 00 T 18 Y ve VT 21 20 20 PH 5 AZAM DE 61 10 10 AR NE 0 MA S 40 CY LA 71 UR MG 74 A # P TA BL 71 ET 74 RO 00 06 11 5 30 30 KM 68 Ac PI 05 -2 -0 .0 AR 99 HB ti NI 40 2- 8- 00 T 18 Y ve RO 12 20 20 PH 1 AZAM LE 12 10 10 AR NE 5 MA S HC CY LA L 71 UR 4 74 A MG # P TA 71 BL 74 ET TI 55 11 11 1 60 30 [...] -0 -0 .0 AR 07 YN ti DE 30 1- 00 T 00 E ve OL [...] # P MG 71 CA 74 P CR 00 06 10 5 30 30 KM 68 Ac ES 31 -2 -1 .0 AR 99 HB ti TO 00 2- 1- 00 T 18 Y ve R 75 20 20 PH 6 AZAM 10 19 10 10 AR NE 0 MA S MG CY LA 71 UR TA 74 A BL # P ET 71 74 FU 00 06 10 5 30 30 KM 68 Ac RO 37 -2 -1 .0 AR 99 HB ti SE 80 2- 1- 00 T 18 Y ve VT 21 20 20 PH 5 AZAM DE 61 10 10 AR NE 0 MA S 40 CY LA 71 UR MG 74 A # P TA BL 71 ET 74 RO 00 06 10 5 30 [...] 71 BL 74 ET AC 64 01 10 5 30 30 KM 68 DU Ac TO 76 -1 -1 .0 AR 89 NN ti S 40 5- 1- 00 T 78 IN ve 45 45 20 20 PH 0 G 12 10 10 AR MA MG 4 MA LE CY SH TA 71 EA BL 74 ET # 71 74 NO 00 09 10 1 15 30 KM 69 BH Ac VO 16 -2 -0 .0 AR 04 AG ti LO 93 3- 2- 00 T 56 RA ve G 69 20 20 PH 8 TH VT 61 10 10 AR X 9 MA RA 70 CY -3 71 ND 0 74 ER FL # S EX PE 71 N 74 SY RN EN 00 06 10 5 60 30 [...] MG 71 74 TA B ME 00 03 10 6 60 30 KM 68 PA Ac TO 09 -3 -0 .0 AR 94 YN ti DE 30 1- 2- 00 T 40 E ve OL 73 20 20 PH 6 VA OL 31 10 10 AR UG 0 MA HN TA CY W RT 71 RA 74 TE # 50 71 74 MG TA B LY 00 09 09 1 90 30 [...] # P MG 71 CA 74 P CR 00 06 09 5 30 30 KM 68 Ac ES 31 -2 -1 .0 AR 99 HB ti TO 00 2- 3- 00 T 18 Y ve R 75 20 20 PH 6 AZAM 10 19 10 10 AR NE 0 MA S MG CY LA 71 UR TA 74 A BL # P ET 71 74 FU 00 06 09 5 30 30 KM 68 Ac RO 37 -2 -1 .0 AR 99 HB ti SE 80 2- 3- 00 T 18 Y ve VT 21 20 20 PH 5 AZAM DE 60 10 10 AR NE 1 MA S 40 CY LA 71 UR MG 74 A # P TA BL 71 ET 74 RO 00 06 09 5 30 30 KM 68 Ac PI 05 -2 -1 .0 AR 99 HB ti NI 40 2- 3- 00 T 18 Y ve RO 12 20 20 PH 1 AZAM LE 12 10 10 AR NE 5 MA S HC CY LA L 71 UR 4 74 A MG # P TA 71 BL 74 ET DI 00 03 09 6 30 30 KM 68 PA Ac GO 52 -1 -1 .0 AR 93 YN ti X 71 6- 3- 00 T 39 E ve 12 32 20 20 PH 6 VA 5 40 10 10 AR UG MC 1 MA HN G CY W TA 71 BL 74 ET # 71 74 AC 64 01 09 5 30 30 KM 68 DU Ac TO 76 -1 -1 .0 AR 89 NN ti S 40 5- 3- 00 T 78 IN ve 45 45 20 20 PH 0 G 12 10 10 AR MA MG 4 MA LE CY SH TA 71 EA BL 74 ET # 71 74 EN 00 06 09 5 60 30 [...] MG 71 74 TA B ME 00 03 09 6 60 30 KM 68 PA Ac TO 09 -3 -0 .0 AR 94 YN ti DE 30 1- 2- 00 T 40 E ve OL 73 20 20 PH 6 VA OL 31 10 10 AR UG 0 MA HN TA CY W RT 71 RA 74 TE # 50 71 74 MG TA B LY 00 08 08 0 90 30 BE 61 Ac RI 07 -3 -3 .0 TS 65 HB ti CA 11 1- 1- 00 Y 75 Y ve 01 20 20 LA AZAM 25 26 10 10 YN NE 8 E S MG PH LA AR UR CA MA A PS CY P UL E CR 00 06 08 5 30 30 KM 68 Ac ES 31 -2 -1 .0 AR 99 HB ti TO 00 2 7- 00 T 18 Y ve R 75 20 20 PH 6 AZAM 10 19 10 10 AR NE 0 MA S MG CY LA 71 UR TA 74 A BL # P ET 71 74 RO 00 06 08 5 30 30 KM 68 Ac PI 37 -2 -1 .0 AR 99 HB ti NI 85 2- 7- 00 T 18 Y ve RO 50 20 20 PH 1 AZAM LE 40 10 10 AR NE 1 MA S HC CY LA L 71 UR 4 74 A MG # P TA 71 BL 74 ET NO 00 06 08 2 15 30 KM 68 BH Ac VO 16 -0 -1 .0 AR 98 AG ti LO 93 8- 7- 00 T 31 RA ve G 69 20 20 PH 3 TH VT 61 10 10 AR X 9 MA RA 70 CY -3 71 ND 0 74 ER FL # S EX PE 71 N 74 SY RN FU 00 03 08 5 30 30 KM 68 Ac RO 05 -1 -1 .0 AR 93 HB ti SE 44 8- 7- 00 T 58 Y ve VT 29 20 20 PH 9 AZAM DE 93 10 10 AR NE 1 MA S 40 CY LA 71 UR MG 74 A # P TA BL 71 ET 74 DI 00 03 08 6 30 30 KM 68 PA Ac GO 52 -1 -1 .0 AR 93 YN ti X 71 6- 7- 00 T 39 E ve 12 32 20 20 PH 6 VA 5 40 10 10 AR UG MC 1 MA HN G CY W TA 71 BL 74 ET # 71 74 AC 64 01 08 5 30 30 KM 68 DU Ac TO 76 -1 -1 .0 AR 89 NN ti S 40 5- 7- 00 T 78 IN ve 45 45 20 20 PH 0 G 12 10 10 AR MA MG 4 MA LE CY SH TA 71 EA BL 74 ET # 71 74 EN 00 04 08 3 60 30 KM 68 DU Ac AL 09 -2 -0 .0 AR 96 NN ti AP 30 7- 2- 00 T 04 IN ve RI 02 20 20 PH 5 G L 90 10 10 AR MA MA 1 MA LE LE CY SH AT 71 EA E 74 20 # MG 71 74 TA B ME 00 03 08 6 60 30 KM 68 PA Ac TO 09 -3 -0 .0 AR 94 YN ti DE 30 1- 2- 00 T 40 E ve OL 73 20 20 PH 6 VA OL 31 10 10 AR UG 0 MA HN TA CY W RT 71 RA 74 TE # 50 71 74 MG TA B CLARK 53 07 07 0 20 10 NE 21 SH Ac LF 74 -2 -2 .0 IG 35 Y ti AM 60 0- 0- [address] ve ET 27 20 20 OR EP HO 20 10 10 HO HE XA 1 OD N ZO C LE PH -T AR MP MA CY DS TA BL ET 00 07 07 0 20 5 NE 21 SH Ac 59 -2 -2 .0 IG 35 Y ti 10 0- 0- [address] ve 34 20 20 OR EP 90 10 10 HO HE 5 OD N C PH AR MA CY RO 00 06 07 5 30 30 KM 68 Ac PI 37 -2 -1 .0 AR 99 HB ti NI 85 2- 7- 00 T 18 Y ve RO 50 20 20 PH 1 AZAM LE 40 10 10 AR NE 1 MA S HC CY LA L 71 UR 4 74 A MG # P TA 71 BL 74 ET NO 00 06 07 2 15 30 KM 68 BH Ac VO 16 -0 -1 .0 AR 98 AG ti LO 93 8- 5- 00 T 31 RA ve G 69 20 20 PH 3 TH VT 61 10 10 AR X 9 MA RA 70 CY -3 71 ND 0 74 ER FL # S EX PE 71 N 74 SY RN FU 00 03 07 5 30 30 KM 68 Ac RO 05 -1 -1 .0 AR 93 HB ti SE 44 8- 5- 00 T 58 Y ve VT 29 20 20 PH 9 AZAM DE 93 10 10 AR NE 1 MA S 40 CY LA 71 UR MG 74 A # P TA BL 71 ET 74 DI 00 03 07 6 30 30 KM 68 PA Ac GO 52 -1 -1 .0 AR 93 YN ti X 71 6- 5- 00 T 39 E ve 12 32 20 20 PH 6 VA 5 40 10 10 AR UG MC 1 MA HN G CY W TA 71 BL 74 ET # 71 74 CR [...] # ET 71 74 AC 64 01 07 5 30 30 KM 68 DU Ac TO 76 -1 -1 .0 AR 89 NN ti S 40 5- 5- 00 T 78 IN ve 45 45 20 20 PH 0 G 12 10 10 AR MA MG 4 MA LE CY SH TA 71 EA BL 74 ET # 71 74 EN 00 04 07 3 60 30 KM 68 DU Ac AL 09 -2 -0 .0 AR 96 NN ti AP 30 7- 2- 00 T 04 IN ve RI 02 20 20 PH 5 G L 90 10 10 AR MA MA 1 MA LE LE CY SH AT 71 EA E 74 20 # MG 71 74 TA B ME 00 03 07 6 60 30 KM 68 PA Ac TO 09 -3 -0 .0 AR 94 YN ti DE 30 1- 2- 00 T 40 E ve OL 73 20 20 PH 6 VA OL 31 10 10 AR UG 0 MA HN TA CY W RT 71 RA 74 TE # 50 71 74 MG TA B 00 06 06 12 30 EC 46 WI Ac 59 -2 -2 0. ON 96 ND ti 10 5- 5- 00 OM 72 SO ve 54 20 20 0 Y 9 R [address] RO 5 UG BE RT CO E MP AN Y IN C DO 00 06 06 30 30 EC 73 WI Ac XE 37 -2 -2 .0 ON 27 ND ti PI 83 5- 5- 00 OM 27 SO ve N 12 20 20 Y 4 R [address] RO 1 UG BE MG RT CO E CA MP PS AN UL Y E IN C TI 00 06 06 30 30 EC 73 WI Ac ZA 37 -2 -2 .0 ON 27 ND ti NI 80 5- 5- 00 OM 27 SO ve DI 72 20 20 Y 3 R NE [address] RO 9 UG BE HC RT L CO E 4 MP MG AN Y TA IN BL C ET BA 00 06 06 60 15 EC 73 WI Ac NO 90 -2 -2 .0 ON 27 ND ti PH 45 5- 5- 00 OM 27 SO ve EN 55 20 20 Y 2 R [address] RO 25 9 UG BE RT MG CO E MP TA AN BL Y ET IN C LY 00 06 06 90 30 EC 46 WI Ac RI 07 -2 -2 .0 ON 96 ND ti CA 11 5- 5- 00 OM 73 SO ve 01 20 20 Y 0 R [address] RO 0 8 UG BE MG RT CO E CA MP PS AN UL Y E IN C RO 00 06 06 5 [...] P TA 71 BL 74 ET 00 04 06 3 30 15 KM 68 Ac 09 -2 -1 .0 AR 96 HB ti 35 7- 6- 00 T 04 Y ve 28 20 20 PH 6 AZAM 40 10 10 AR NE 1 MA S CY LA 71 UR 74 A # P 71 74 FU 00 03 06 5 30 30 KM 68 Ac RO 37 -1 -1 .0 AR 93 HB ti SE 80 8- 6- 00 T 58 Y ve VT 21 20 20 PH 9 AZAM DE 61 10 10 AR NE 0 MA S 40 CY LA 71 UR MG 74 A # P TA BL 71 ET 74 DI 00 03 06 6 30 30 KM 68 PA Ac GO 52 -1 -1 .0 AR 93 YN ti X 71 6- 6- 00 T 39 E ve 12 32 20 20 PH 6 VA 5 40 10 10 AR UG MC 1 MA HN G CY W TA 71 BL 74 ET # 71 74 CR 00 01 06 5 30 30 KM 68 DU Ac ES 31 -1 -1 .0 AR 89 NN ti TO 00 5- 6- 00 T 78 IN ve R 75 20 20 PH 3 G 10 19 10 10 AR MA 0 MA LE MG CY SH 71 EA TA 74 BL # ET 71 74 00 12 06 6 30 30 KM 68 DU Ac 17 -1 -1 .0 AR 87 NN ti 25 1- 6- 00 T 88 IN ve 66 20 20 PH 2 G 46 09 10 AR MA 0 MA LE CY SH 71 EA 74 # 71 74 NO 00 06 06 2 15 30 KM 68 BH Ac VO 16 -0 -0 .0 AR 98 AG ti LO 93 8- 8- 00 T 31 RA ve G 69 20 20 PH 3 TH VT 61 10 10 AR X 9 MA RA 70 CY -3 71 ND 0 74 ER FL # S EX PE 71 N 74 SY RN ME 00 06 06 21 6 RI 62 MU Ac TH 60 -0 -0 .0 TE 93 TI ti YL 34 7- 7- 00 98 SO ve DE 59 20 20 AI ED 31 10 10 D AN NI [address] SO AR EW LO MA M NE CY 4 02 MG 29 0 DO # SE 02 PK 29 EN 00 04 06 3 60 30 KM 68 DU Ac AL 09 -2 -0 .0 AR 96 NN ti AP 30 7- 1- 00 T 04 IN ve RI 02 20 20 PH 5 G L 90 10 10 AR MA MA 1 MA LE LE CY SH AT 71 EA E 74 20 # MG 71 74 TA B ME 00 03 06 6 60 30 KM 68 PA Ac TO 09 -3 -0 .0 AR 94 YN ti DE 30 1- 1- 00 T 40 E ve OL 73 20 20 PH 6 VA OL 31 10 10 AR UG 0 MA HN TA CY W RT 71 RA 74 TE # 50 71 74 MG TA B DO 00 05 05 0 30 30 EC 73 WI Ac XE 37 -2 -2 .0 ON 23 ND ti PI 83 5- 5- 00 OM 93 SO ve N 12 20 20 Y 0 R [address] RO 1 UG BE MG RT CO E CA MP PS AN UL Y E IN C TI 00 05 05 0 30 30 EC 73 WI Ac ZA 37 -2 -2 .0 ON 23 ND ti NI 80 5- 5- 00 OM 92 SO ve DI 72 20 20 Y 9 R NE [address] RO 9 UG BE HC RT L CO E 4 MP MG AN Y TA IN BL C ET BA 00 05 05 0 60 15 EC 73 WI Ac NO 90 -2 -2 .0 ON 23 ND ti PH 45 5- 5- 00 OM 92 SO ve EN 55 20 20 Y 8 R [address] RO 25 9 UG BE RT MG CO E MP TA AN BL Y ET IN C LY 00 05 05 0 90 30 EC 46 WI Ac RI 07 -2 -2 .0 ON 95 ND ti CA 11 5- 5- 00 OM 10 SO ve 01 20 20 Y 4 R [address] RO 0 8 UG BE MG RT CO E CA MP PS AN UL Y E IN C DI 00 03 05 6 30 30 KM 68 PA Ac GO 52 -1 -2 .0 AR 93 YN ti X 71 6- 0- 00 T 39 E ve 12 32 20 20 PH 6 VA 5 40 10 10 AR UG MC 1 MA HN G CY W TA 71 BL 74 ET # 71 74 CR 00 01 05 5 30 30 KM 68 DU Ac ES 31 -1 -2 .0 AR 89 NN ti TO 00 5- 0- 00 T 78 IN ve R 75 20 20 PH 3 G 10 19 10 10 AR MA 0 MA LE MG CY SH 71 EA TA 74 BL # ET 71 74 00 12 05 6 30 30 KM 68 DU Ac 17 -1 -2 .0 AR 87 NN ti 25 1- 0- 00 T 88 IN ve 66 20 20 PH 2 G 46 09 10 AR MA 0 MA LE CY SH 71 EA 74 # 71 74 00 04 05 3 30 15 KM 68 Ac 09 -2 -1 .0 AR 96 HB ti 35 7- 5- 00 T 04 Y ve 28 20 20 PH 6 AZAM 40 10 10 AR NE 1 MA S CY LA 71 UR 74 A # P 71 74 FU 00 03 05 5 30 30 KM 68 Ac RO 37 -1 -1 .0 AR 93 HB ti SE 80 8- 5- 00 T 58 Y ve VT 21 20 20 PH 9 AZAM DE 61 10 10 AR NE 0 MA S 40 CY LA 71 UR MG 74 A # P TA BL 71 ET 74 ME 00 03 04 6 60 30 KM 68 PA Ac TO 09 -3 -2 .0 AR 94 YN ti DE 30 1- 9- 00 T 40 E ve OL 73 20 20 PH 6 VA OL 31 10 10 AR UG 0 MA HN TA CY W RT 71 RA 74 TE # 50 71 74 MG TA B 64 04 04 3 30 15 KM 68 Ac 72 -2 -2 .0 AR 96 HB ti 00 7- 7- 00 T 04 Y ve 20 20 20 PH 6 ZAAM 31 10 10 AR NE 0 MA S CY LA 71 UR 74 A # P 71 74 EN 00 04 04 3 60 30 KM 68 DU Ac AL 09 -2 -2 .0 AR 96 NN ti AP 30 7- 7- 00 T 04 IN ve RI 02 20 20 PH 5 G L 90 10 10 AR MA MA 1 MA LE LE CY SH AT 71 EA E 74 20 # MG 71 74 TA B NO 00 04 04 15 30 KM 68 BH Ac VO 16 -2 -2 .0 AR 95 AG ti LO 93 0- 6- 00 T 61 RA ve G 69 20 20 PH 1 TH VT 61 10 10 AR X 9 MA RA 70 CY -3 71 ND 0 74 ER FL # S EX PE 71 N 74 SY RN BA 00 04 04 0 60 10 EC 73 WI Ac NO 90 -2 -2 .0 ON 20 ND ti PH 45 6- 6- 00 OM 57 SO ve EN 55 20 20 Y 9 R [address] RO 25 9 UG BE RT MG CO E MP TA AN BL Y ET IN C DO 00 04 04 0 30 30 [...] TA IN BL C ET LY 00 04 04 0 90 30 EC 46 WI Ac RI 07 -2 -2 .0 ON 93 ND ti CA 11 6- 6- 00 OM 56 SO ve 01 20 20 Y 8 R [address] RO 0 8 UG BE MG RT CO E CA MP PS AN UL Y E IN C FU 63 03 04 5 30 30 KM 68 Ac RO 30 -1 -1 .0 AR 93 HB ti SE 40 8- 4- 00 T 58 Y ve VT 62 20 20 PH 9 AZAM DE 50 10 10 AR NE 1 MA S 40 CY LA 71 UR MG 74 A # P TA BL 71 ET 74 DI 00 03 04 6 30 30 KM 68 PA Ac GO 52 -1 -1 .0 AR 93 YN ti X 71 6- 2- 00 T 39 E ve 12 32 20 20 PH 6 VA 5 40 10 10 AR UG MC 1 MA HN G CY W TA 71 BL 74 ET # 71 74 CR 00 01 04 5 30 30 KM 68 DU Ac ES 31 -1 -1 .0 AR 89 NN ti TO 00 5- 2- 00 T 78 IN ve R 75 20 20 PH 3 G 10 19 10 10 AR MA 0 MA LE MG CY SH 71 EA TA 74 BL # ET 71 74 00 12 04 6 30 30 KM 68 DU Ac 17 -1 -1 .0 AR 87 NN ti 25 1- 2- 00 T 88 IN ve 66 20 20 PH 2 G 46 09 10 AR MA 0 MA LE CY SH 71 EA 74 # 71 74 64 03 04 1 [...] -3 -3 .0 AR 94 YN ti DE 30 1- 00 T 40 E ve OL 73 20 20 PH 6 VA OL 31 10 10 AR UG 0 MA HN TA CY W RT 71 RA 74 TE # 50 71 74 MG TA B CLARK 53 03 03 10 5 EC 73 WI Ac LF 74 -2 -2 .0 ON 16 ND ti AM 60 5- 5- 00 OM 93 SO ve ET 27 20 20 Y 8 R HO [address] NINA XA 5 UG BE ZO RT LE CO E -T MP MP AN Y DS IN C TA BL ET BA 00 03 03 60 10 EC 73 WI Ac NO 90 -2 -2 .0 ON ti PH 45 5- 5- 00 OM 93 SO ve EN 55 20 20 Y 7 R [address] WOOD 25 9 UG BE RT MG CO E MP TA AN BL Y ET IN C DO 00 03 03 30 30 EC 73 WI Ac XE 37 -2 -2 .0 ON ti PI 83 5- 5- 00 OM 93 SO ve N 12 20 20 Y 6 R [address] RO 1 UG BE MG RT CO E CA MP PS AN UL Y E IN C LY 00 03 03 90 30 EC 46 WI Ac RI 07 -2 -2 .0 ON ND ti CA 11 5- 5- 00 OM 94 SO ve 01 20 20 Y 7 R [address] RO 0 8 UG BE MG RT CO E CA MP PS AN UL Y E IN C TR 65 03 03 90 30 EC 46 WI Ac AM 16 -2 -2 .0 ON ND ti AD 20 5- 5- 00 OM 94 SO ve OL 62 20 20 Y 6 R [address] NINA HC 1 UG BE L RT 50 CO E MP MG AN Y TA IN BL C ET 64 03 03 1 30 15 KM 68 Ac 72 -1 -1 .0 AR 93 HB ti 00 8 8 00 T 59 Y ve 20 20 20 PH 9 AZAM 31 10 10 AR NE 0 MA S CY LA 71 UR 74 A # P 71 74 FU 63 03 03 5 30 30 KM 68 Ac RO 30 -1 -1 .0 AR 93 HB ti SE 40 8- 8- 00 T 58 Y ve VT 62 20 20 PH 9 AZAM DE 50 10 10 AR NE 1 MA S 40 CY LA 71 UR MG 74 A # P TA BL 71 ET 74 00 03 03 5 15 30 KM 88 Ac 16 -1 -1 .0 AR 10 HB ti 93 8- 8- 00 T 89 Y ve 47 20 20 PH 1 AZAM 71 10 10 AR NE 8 MA S CY LA 71 UR 74 A # P 71 74 DI 00 03 03 6 30 30 KM 68 PA Ac GO 52 -1 -1 .0 AR 93 YN ti X 71 6- 6- 00 T 39 E ve 12 32 20 20 PH 6 VA 5 40 10 10 AR UG MC 1 MA HN G CY W TA 71 BL 74 ET # 71 74 CR 00 01 03 5 30 30 KM 68 DU Ac ES 31 -1 -1 .0 AR 89 NN ti TO 00 6 T 78 IN ve R 75 20 20 PH 3 G 10 19 10 10 AR MA 0 MA LE MG CY SH 71 EA TA 74 BL # ET 71 74 00 12 03 6 30 30 KM 68 DU Ac 17 -1 -1 .0 AR 87 NN ti 25 1- 6- 00 T 88 IN ve 66 20 20 PH 2 G 46 09 10 AR MA 0 MA LE CY SH 71 EA 74 # 71 74 EN 00 06 03 3 60 30 KM 68 DU Ac AL 09 -1 -1 .0 AR 76 NN ti AP 30 1- 6 T 44 IN ve RI 02 20 20 PH 7 G L 90 09 10 AR MA MA 1 MA LE LE CY SH AT 71 EA E 74 20 # MG 71 74 TA B FU 63 06 03 3 30 30 KM 68 DU Ac RO 30 -1 -0 .0 AR 76 NN ti SE 40 1- 8- 00 T 44 IN ve VT 62 20 20 PH 8 G DE 50 09 10 AR MA 1 MA LE 40 CY SH 71 EA MG 74 # TA BL 71 ET 74 64 03 03 1 30 30 KM 68 Ac 72 -0 -0 .0 AR 92 HB ti 00 5 T 77 Y ve 20 20 20 PH 7 AZAM 31 10 10 AR NE 0 MA S CY LA 71 UR 74 A # P 71 74 ME 00 08 03 6 60 30 KM 68 PA Ac TO 09 -3 -0 .0 AR 80 YN ti DE 30 1- 1- T 99 E ve OL 73 20 [...]
--- OUTSIDE RECORDS SUMMARY | 2017-03-11 04:26 | External Medical Summary Rpt | CCD ---
Demographics Preferred Language Setswana Marital Status Unknown Spiritism Affiliation Unknown Race Unknown Ethnic Group Unknown Author Author , NOREEN SORTO Address Unknown Phone [email or web address] Care Team Providers Care Furnace Liner Name Role Phone [facility] Unavailable Unavailable [facility], Unavailable Unavailable [facility] Unavailable [facility], [facility], Unavailable Unavailable [facility] # Unavailable Unavailable [id number], [facility] # 4847 [facility] [id number] # Unavailable Unavailable 7174, [facility] [id number] # 7174 [facility], Unavailable Unavailable [facility] Unavailable Unavailable [id number] # [id number], [facility] [id number] # 0229 Purpose Continuity of Care Document [...] 69 20 20 0 PH 1 S DE 61 12 13 AR JE X 9 MA RE 70 CY MY -3 # C 0 FL 48 EX 47 PE N SY RN ME 00 02 06 4 60 30 KM 68 PA Ac TO 37 -0 -2 0. AR 38 RS ti PA 80 6- 8- 00 T 07 ON [...] 69 20 20 0 PH 1 S DE 61 12 13 AR JE X 9 MA RE 70 CY MY -3 # C 0 FL 48 EX 47 PE N SY RN ME 00 02 05 4 60 30 KM 68 PA Ac TO 37 -0 -3 0. AR 38 RS ti PA 80 6- 1- 00 T 07 ON [...] 69 20 20 0 PH 1 S DE 61 12 13 AR JE X 9 [...] -0 -0 0. AR 38 RS ti PA 80 6- 2- 00 T 07 ON [...] 7- 5- 00 T 83 ON ve DE 21 20 20 0 PH 2 S [...] 69 20 20 0 PH 1 S DE 61 12 13 AR JE X 9 [...] -0 -0 0. AR 38 RS ti PA 80 6- 5- 00 T 07 ON ve OL 03 20 20 0 PH 5 S OL 21 13 13 AR JE 0 MA RE TA CY MY RT # C RA TE 48 47 50 MG TA B ME 00 02 03 4 60 30 KM 68 PA Ac TO 37 -0 -0 0. AR 38 RS ti PA 80 6- 8- 00 T 07 ON [...] 69 20 20 0 PH 1 S DE 61 12 13 AR JE X 9 MA RE 70 CY MY -3 # C 0 FL 48 EX 47 PE N SY RN FU 00 03 03 1 30 30 KM 68 PA Ac RO 37 -0 -0 0. AR 38 RS ti SE 80 7- 8- 00 T 83 ON ve DE 21 20 20 0 PH 2 S [...] 4- 7- 00 T 12 ON ve DE 21 20 20 PH 8 S DE [...] -0 -2 .0 AR 11 YN ti PA 40 4- 7- 00 T 00 E ve OL 47 20 20 PH 6 VA OL 75 11 11 AR UG 8 MA HN TA CY W RT 71 RA 74 TE # 50 71 74 MG TA B PA 00 10 10 0 21 6 KM [...] 4- 8- 00 T 12 ON ve DE 21 20 20 PH 8 S DE [...] G 69 20 20 PH 3 E DE 61 11 11 AR SA X 9 MA RA 70 CY H -3 71 M 0 74 FL # EX PE 71 N 74 SY RN ME 00 01 09 6 60 30 KM 69 PA Ac TO 09 -0 -2 .0 AR 11 YN ti PA 30 4- 8 T 00 E ve [...] 4- 1- 00 T 00 E ve DE 21 20 20 PH 9 VA DE 61 11 11 AR UG 0 MA HN 40 CY W 71 MG 74 # TA BL 71 ET 74 NO 00 06 08 3 15 30 KM 69 JU Ac VO 16 -2 -[address] ti LO 93 1- 0- 00 T 61 IC ve G 69 20 20 PH 3 E DE 61 11 11 AR SA X 9 [...] -0 -3 .0 AR 11 YN ti PA 30 4- 0- 00 T 00 E [...] 4- 3- 00 T 00 E ve DE 21 20 20 PH 9 VA DE 61 11 11 AR UG 0 MA HN 40 CY W 71 MG 74 # TA BL 71 ET 74 NO 00 06 07 3 15 30 KM 69 JU Ac VO 16 -2 -[address] ti LO 93 1- 2- 00 T 61 IC ve G 69 20 20 PH 3 E DE 61 11 11 AR SA X 9 [...] 11 AR SA E 9 MA RA PA CY H OP 71 M 74 50 [...] -0 -2 .0 AR 11 YN ti PA 30 4- 2- 00 T 00 E [...] 4- 0- 00 T 00 E ve DE 21 20 20 PH 9 VA DE 61 11 11 AR UG 0 MA HN 40 CY W 71 MG 74 # TA BL 71 ET 74 NO 00 06 06 3 15 30 KM 69 JU Ac VO 16 -2 -[address] ti LO 93 1- 2- 00 T 61 IC ve G 69 20 20 PH 3 E DE 61 11 11 AR SA X 9 [...] 11 AR SA E 9 MA RA PA CY H OP 71 M 74 50 [...] -0 -2 .0 AR 11 YN ti PA 30 4- 0- 00 T 00 E [...] 4- 2- 00 T 00 E ve DE 21 20 20 PH 9 VA DE [...] 11 AR SA E 9 MA RA PA CY H OP 71 M 74 50 [...] -0 -2 .0 AR 11 YN ti PA 30 4- 4- 00 T 00 E [...] G 69 20 20 PH 5 Y DE 61 10 11 AR JE X 9 [...] 4- 5- 00 T 00 E ve DE 21 20 20 PH 9 VA DE [...] 11 AR SA E 9 MA RA PA CY H OP 71 M 74 50 [...] G 69 20 20 PH 5 Y DE 61 10 11 AR JE X 9 MA NN 70 CY IF -3 71 ER 0 74 B FL # EX PE 71 N 74 SY RN ME 00 11 04 6 60 30 KM 69 PA Ac TO 09 -0 -2 .0 AR 07 YN ti PA 30 1- 7- 00 T 00 E [...] 4- 8- 00 T 00 E ve DE 21 20 20 PH 9 VA DE [...] 11 AR JE E 9 MA NN PA CY IF OP 71 ER 74 B 50 # MC 71 G 74 SP RA Y NO 00 12 03 5 15 30 KM 69 KI Ac VO 16 -3 -3 .0 AR 10 NG ti LO 93 0- 0- 00 T 66 ER ve G 69 20 20 PH 5 Y DE 61 10 11 AR JE X 9 MA NN 70 CY IF -3 71 ER 0 74 B FL # EX PE 71 N 74 SY RN ME 00 11 03 6 60 30 KM 69 PA Ac TO 09 -0 -3 .0 AR 07 YN ti PA 30 1- 0- 00 T 00 E [...] 4- 4- 00 T 00 E ve DE 21 20 20 PH 9 VA DE [...] 11 AR JE E 9 MA NN PA CY IF OP 71 ER 74 B [...] G 69 20 20 PH 5 Y DE 61 10 11 AR JE X 9 MA NN 70 CY IF -3 71 ER 0 74 B FL # EX PE 71 N 74 SY RN ME 00 11 02 6 60 30 KM 69 PA Ac TO 09 -0 -2 .0 AR 07 YN ti PA 30 1- 8- 00 T 00 E [...] 2- 5- 00 T 18 Y ve DE 21 20 20 PH 5 AZAM DE [...] 11 AR JE E 9 MA NN PA CY IF OP 71 ER 74 B [...] G 69 20 20 PH 5 Y DE 61 10 11 AR JE X 9 MA NN 70 CY IF -3 71 ER 0 74 B FL # EX PE 71 N 74 SY RN ME 00 11 01 6 60 30 KM 69 PA Ac TO 37 -0 -2 .0 AR 07 YN ti PA 80 1- 6- 00 T 00 E [...] 2- 6- 00 T 18 Y ve DE 21 20 20 PH 5 AZAM DE [...] 10 AR JE E 6 MA NN PA CY IF OP 71 ER 74 B [...] G 69 20 20 PH 5 Y DE 61 10 10 AR JE X 9 MA NN 70 CY IF -3 71 ER 0 74 B FL # EX PE 71 N 74 SY RN ME 00 11 12 6 60 30 KM 69 PA Ac TO 37 -0 -2 .0 AR 07 YN ti PA 80 1- 9- 00 T 00 E [...] 2- 6- 00 T 18 Y ve DE 21 20 20 PH 5 AZAM DE [...] -0 -2 .0 AR 07 YN ti PA 30 1- 9- 00 T 00 E [...] G 69 20 20 PH 8 TH DE 61 10 10 AR X 9 MA [...] 2- 8- 00 T 18 Y ve DE 21 20 20 PH 5 AZAM DE [...] -0 -0 .0 AR 07 YN ti PA 30 1- 00 T 00 E ve [...] 2- 1- 00 T 18 Y ve DE 21 20 20 PH 5 AZAM DE [...] G 69 20 20 PH 8 TH DE 61 10 10 AR X 9 MA [...] -3 -0 .0 AR 94 YN ti PA 30 1- 2- 00 T 40 E [...] 2- 3- 00 T 18 Y ve DE 21 20 20 PH 5 AZAM DE [...] -3 -0 .0 AR 94 YN ti PA 30 1- 2- 00 T 40 E [...] G 69 20 20 PH 3 TH DE 61 10 10 AR X 9 MA RA 70 CY -3 71 ND 0 74 ER FL # S EX PE 71 N 74 SY RN FU 00 03 08 5 30 30 KM 68 Ac RO 05 -1 -1 .0 AR 93 HB ti SE 44 8- 7- 00 T 58 Y ve DE 29 20 20 PH 9 AZAM DE [...] -3 -0 .0 AR 94 YN ti PA 30 1- 2- 00 T 40 E [...] G 69 20 20 PH 3 TH DE 61 10 10 AR X 9 MA RA 70 CY -3 71 ND 0 74 ER FL # S EX PE 71 N 74 SY RN FU 00 03 07 5 30 30 KM 68 Ac RO 05 -1 -1 .0 AR 93 HB ti SE 44 8- 5- 00 T 58 Y ve DE 29 20 20 PH 9 AZAM DE [...] -3 -0 .0 AR 94 YN ti PA 30 1- 2- 00 T 40 E [...] 8- 6- 00 T 58 Y ve DE 21 20 20 PH 9 AZAM DE [...] G 69 20 20 PH 3 TH DE 61 10 10 AR X 9 MA RA 70 CY -3 71 ND 0 74 ER FL # S EX PE 71 N 74 SY RN ME 00 06 06 21 6 RI 62 MU Ac TH 60 -0 -0 .0 TE 93 TI ti YL 34 7- 7- 00 98 SO ve PA 59 20 20 AI ED 31 10 [...] -3 -0 .0 AR 94 YN ti PA 30 1- 1- 00 T 40 E [...] 8- 5- 00 T 58 Y ve DE 21 20 20 PH 9 AZAM DE 61 10 10 AR NE 0 MA S 40 CY LA 71 UR MG 74 A # P TA BL 71 ET 74 ME 00 03 04 6 60 30 KM 68 PA Ac TO 09 -3 -2 .0 AR 94 YN ti PA 30 1- 9- 00 T 40 E [...] G 69 20 20 PH 1 TH DE 61 10 10 AR X 9 MA [...] 8- 4- 00 T 58 Y ve DE 62 20 20 PH 9 AZAM DE [...] -3 -3 .0 AR 94 YN ti PA 30 1- 00 T 40 E ve [...] 8- 8- 00 T 58 Y ve DE 62 20 20 PH 9 AZAM DE [...] 1- 8- 00 T 44 IN ve DE 62 20 20 PH 8 G DE [...] -3 -0 .0 AR 80 YN ti PA 30 1- 1- T 99 E ve [...]
[2017-03-11] MEDS ORDERED: LIPITOR80 MG PO (04:27)
[2017-03-11] MEDS ORDERED: COREG25 MG PO (04:29)
--- OUTSIDE RECORDS SUMMARY | 2017-03-11 04:29 | External Medical Summary Rpt | CCD ---
Demographics Preferred Language Northern Irish Marital Status Unknown Restorationism Affiliation Unknown Race Unknown Ethnic Group Unknown Author Author , NOREEN SORTO Address Unknown Phone Immunization No patient found.
--- OUTSIDE RECORDS SUMMARY | 2017-03-11 04:29 | External Medical Summary Rpt | CCD ---
Demographics Preferred Language Nauruan Marital Status Unknown Worship Affiliation Unknown Race Unknown Ethnic Group Unknown Author Author , NOREEN SORTO Address Unknown Phone Immunization No patient found.
--- OUTSIDE RECORDS SUMMARY | 2017-03-11 04:30 | External Medical Summary Rpt ---
Author Author NOREEN Coats, [employer] Organization [employer] Address Unknown Phone Unavailable Payers Section Payer Plan Name Group ID Member ID Coverage Coverage Start End Date Date E04^ [id number] No No MEDICAL MEDICAL 3 informati informati ASSISTANC ASSISTANC on in on in E E^PLANID source source data data Results Comprehensive metabolic 2000 panel in Serum or Plasma Observa Value Referen Units Interpr Notes Date tion ce etation Range Albumin/G 1.1 - 1.8 No Low No Feb 19 lobulin informati informati 2016 [Mass on in on in 12:40 PM ratio] in source source Serum or data data Plasma Albumin 3.4 - 5.0 gm/dL Low No Feb 19 [Mass/vol informati 2016 ume] in on in 12:40 PM Serum or source Plasma data Alkaline 46 - 116 U/L Normal No Feb 19 phosphata informati 2016 se on in 12:40 PM [Enzymati source c data activity/ volume] in Serum or Plasma Bilirubin 0.2 - 1.0 mg/dL Normal No Feb 19 .total informati 2016 [Mass/vol on in 12:40 PM ume] in source Serum or data Plasma Urea 7 - 18 mg/dL High Feb 19 nitrogen NOTIFICAT 2016 [Mass/vol ION 12:40 PM ume] in RESULT Serum or Plasma Calcium 8.5 - mg/dL Normal No Feb 19 [Mass/vol 10.1 informati 2017 ume] in on in 12:40 PM Serum or source Plasma data Chloride 98 - 107 mmoL/L Normal No Feb 19 [Moles/vo informati 2017 lume] in on in 12:40 PM Serum or source Plasma data Carbon 21.0 - mmoL/L High Feb 19 dioxide, 32.0 NOTIFICAT 2017 total ION 12:40 PM [Moles/vo RESULT lume] in Serum or Plasma Creatinin 0.70 - mg/dL High No Feb 19 e 1.30 informati 2017 [Mass/vol on in 12:40 PM ume] in source Serum or data Plasma Creatinin 50 - 200 ML/MIN Normal No Feb 19 e renal 2016 clearance on in 12:40 PM source predicted data by Cockcroft -Gault formula Estimated >60 ML/MIN No REFERENCE Feb 19 informati RANGE: 2017 glomerula on in >60 12:40 PM r source ML/MIN/1. filtratio data 73 SQUARE n rate METERSIf (GF this patient is -A merican, then multiply theresult by 1.210. Globulin 1.3 - 3.2 gm/dL High No Feb 19 [Mass/vol informati 2016 ume] in on in 12:40 PM Serum source data Glucose 74 - 106 mg/dL High No Feb 19 [Mass/vol informati 2016 ume] in on in 12:40 PM Serum or source Plasma data Potassium 3.5 - 5.1 mmoL/L Normal No Feb 19 inform2016 [Moles/vo on in 12:40 PM lume] in source Serum or data Plasma Sodium 136 - 145 mmoL/L Normal No Feb 19 [Moles/vo informati 2016 lume] in on in 12:40 PM Serum or source Plasma data Aspartate 15 - 37 U/L Normal No Feb 192016 aminotran on in 12:40 PM sferase source [Enzymati data c activity/ volume] in Serum or Plasma Alanine 12 - 78 U/L Normal No Feb 19 aminotran 2016 sferase on in 12:40 PM [Enzymati source c data activity/ volume] in Serum or Plasma Protein 6.4 - 8.2 gm/dL Normal No Feb 19 [Mass/vol informati 2016 ume] in on in 12:40 PM Serum or source Plasma data Cardiac enzymes Observa Value Referen Units Interpr Notes Date tion ce etation Range Creatine 0 - 4.0 U/L Normal No Feb 19 kinase.MB informati 2016 /Creatine on in 12:40 PM source kinase.to data weston [Ratio] in Serum or Plasma Creatine 0.0 - 3.6 ng/mL Normal No Feb 19 kinase.MB informati 2016 on in 12:40 PM [Mass/vol source ume] in data Serum or Plasma Creatine 39 - 308 U/L Normal No Feb 19 kinase informati 2016 [Enzymati on in 12:40 PM c source activity/ data volume] in Serum or Plasma Troponin 0.00 - ng/mL Normal No Feb 6 I.cardiac 0.06 2016 on in 12:40 PM [Mass/vol source ume] in data Serum or Plasma Lactate [Moles/volume] in Blood Observa Value Referen Units Interpr Notes Date tion ce etation Range Lactate 0.4 - 2.0 mmol/L Normal No Feb 6 [Moles/vo 2017 lume] in on in 12:40 PM Blood source data CBC W Auto Differential panel in Blood Observa Value Referen Units Interpr Notes Date tion ce etation Range Basophils 0 - 0.2 K/MM3 Normal No Feb 6 2016 [#/volume on in 12:40 PM ] in source Blood by data Automated count Basophils 0.1 - 2.0 % Normal No Feb 6 /100 2016 leukocyte on in 12:40 PM s in source Blood by data Automated count Eosinophi 0.0 - 0.4 K/mm3 Normal No Feb 6 ls 2016 [#/volume on in 12:40 PM ] in source Blood by data Automated count Eosinophi 0.1 - % Normal No Feb 6 ls/100 12.0 2016 leukocyte on in 12:40 PM s in source Blood by data Automated count Granulocy 1.3 - 8.0 K/mm3 Normal No Feb 6 [place] 2016 [#/volume on in 12:40 PM ] in source Blood by data Automated count Granulocy 37.0 - % High No Feb 6 shelby/100 80.0 2016 leukocyte on in 12:40 PM s in source Blood by data Automated count Hematocri 42.0 - % Low No Feb 6 t [Volume 52.0 2016 on in 12:40 PM Fraction] source of Blood data Hemoglobi 14.1 - g/dL Low No Feb 6 n 18.0 2016 [Mass/vol on in 12:40 PM ume] in source Blood data Lymphocyt 0.7 - 4.5 K/mm3 Low No Feb 6 es 2016 [#/volume on in 12:40 PM ] in source Unspecifi data ed specimen by Automated count Lymphocyt 10 - 50 % Low No Feb 6 es 2016 [#/volume on in 12:40 PM ] in source Unspecifi data ed specimen by Automated count Erythrocy 27 - 31.2 pg Low No Feb 6 te mean 2016 corpuscul on in 12:40 PM ar source hemoglobi data n [Entitic mass] Erythrocy 31.8 - g/dl Low No Feb 6 te mean 35.4 2016 corpuscul on in 12:40 PM ar source hemoglobi data n concentra tion [Mass/vol ume] by Automated count Erythrocy 82.2 - fl Low No Feb 19 te mean 97.8 2016 corpuscul on in 12:40 PM ar volume source [Entitic data volume] by Automated count Monocytes 0.1 - 1.0 K/mm3 Normal No Feb 6 2016 [#/volume on in 12:40 PM ] in source Blood by data Automated count Monocytes 1.7 - 9.3 % Normal No Feb 6 /100 2017 leukocyte on in 12:40 PM s in source Blood by data Automated count Platelet 7.4 - fl Normal No Feb 19 mean 10.4 2016 volume on in 12:40 PM [Entitic source volume] data in Blood by Automated count Platelets 142 - 424 K/mm3 Normal No Feb 6 2016 [#/volume on in 12:40 PM ] in source Blood data Erythrocy 4.6 - 6.2 M/mm3 Low No Feb 6 [place] 2016 [#/volume on in 12:40 PM ] in source Amniotic data fluid Erythrocy 11.5 - % Normal No Feb 19 te 17.5 2016 distribut on in 12:40 PM ion width source [Entitic data volume] by Automated count Leukocyte 4.8 - K/MM3 Normal No Feb 6 s 10.8 2016 [#/volume on in 12:40 PM ] in source Blood data Natriutietic peptide B [Mass/volume] in Serum or Plasma Observa Value Referen Units Interpr Notes Date tion ce etation Range Natriutie 0 - 100 pg/mL High No Jan 27 tic 2016 4:50 peptide B on in AM source [Mass/vol data ume] in Serum or Plasma Cardiac enzymes Observa Value Referen Units Interpr Notes Date tion ce etation Range Creatine 0 - 4.0 U/L Normal No Jan 27 kinase.MB 2016 4:50 /Creatine on in AM source kinase.to data weston [Ratio] in Serum or Plasma Creatine 0.0 - 3.6 ng/mL Normal No Jan 27 kinase.MB informati 2016 4:50 on in AM [Mass/vol source ume] in data Serum or Plasma Creatine 39 - 308 U/L Normal No Jan 27 kinase informati 2016 4:50 [Enzymati on in AM c source [...] 3.4 - 5.0 gm/dL Low No Jan 27 [Mass/vol informati 2016 4:50 ume] in on in AM Serum or source Plasma data Alkaline 46 - 116 U/L Normal No Jan 27 phosphata informati 2016 4:50 se on in AM [Enzymati source c data activity/ volume] in Serum or Plasma Bilirubin 0.2 - 1.0 mg/dL Normal No Jan 27 .total informati 2016 4:50 [Mass/vol on in AM ume] in source Serum or data Plasma Urea 7 - 18 mg/dL High No Jan 27 nitrogen informati 2016 4:50 [Mass/vol on in AM ume] in source Serum or data Plasma Calcium 8.5 - mg/dL Normal No Jan 27 [Mass/vol 10.1 informati 2016 4:50 ume] in on in AM Serum or source Plasma data Chloride 98 - 107 mmoL/L Normal No Jan 27 [Moles/vo informati 2017 4:50 lume] in on in AM Serum or source Plasma data Carbon 21.0 - mmoL/L High Jan 27 dioxide, 32.0 alert NOTIFICAT 2017 4:50 total ION AM [Moles/vo RESULT lume] in Serum or Plasma Creatinin 0.70 - mg/dL High No Jan 14 e 1.30 informati 2016 4:50 [Mass/vol on in AM ume] in source Serum or data Plasma Creatinin 50 - 200 ML/MIN Normal No Jan 27 e renal informati 2017 4:50 clearance on in AM source predicted data by Cockcroft -Gault formula Estimated >60 ML/MIN No REFERENCE Jan 27 informati RANGE: 2017 4:50 glomerula on in >60 AM r source ML/MIN/1. filtratio data 73 SQUARE n rate METERSIf (GF this patient is -A merican, then multiply theresult by 1.210. Globulin 1.3 - 3.2 gm/dL High No Jan 27 [Mass/vol informati 2016 4:50 ume] in on in AM Serum source data Glucose 74 - 106 mg/dL High No Jan 27 [Mass/vol informati 2016 4:50 ume] in on in AM Serum or source Plasma data Potassium 3.5 - 5.1 mmoL/L Normal No Jan 272016 4:50 [Moles/vo on in AM lume] in source Serum or data Plasma Sodium 136 - 145 mmoL/L Normal No Jan 27 [Moles/vo ati 2016 4:50 lume] in on in AM Serum or source Plasma data Aspartate 15 - 37 U/L Normal No Jan 27 inform2016 4:50 aminotran on in AM sferase source [Enzymati data c activity/ volume] in Serum or Plasma Alanine 12 - 78 U/L Normal No Jan 27 aminotran informati 2016 4:50 sferase on in AM [Enzymati source c data activity/ volume] in Serum or Plasma Protein 6.4 - 8.2 gm/dL Normal No Jan 27 [Mass/vol informati 2016 4:50 ume] in on in AM Serum or source Plasma data CBC W Auto Differential panel in Blood Observa Value Referen Units Interpr Notes Date tion ce etation Range Basophils 0 - 0.2 K/MM3 Normal No Jan 27 informati 2016 4:50 [#/volume on in AM ] in source Blood by data Automated count Basophils 0.1 - 2.0 % Normal No Jan 27 informati 2016 4:50 leukocyte on in AM s in source Blood by data Automated count Eosinophi 0.0 - 0.4 K/mm3 Normal No Jan 27 ls informati 2016 4:50 [#/volume on in AM ] in source Blood by data Automated count Eosinophi 0.1 - % Normal No Jan 27 ls/100 12.0 informati 2016 4:50 leukocyte on in AM s in source Blood by data Automated count Granulocy 1.3 - 8.0 K/mm3 Normal No Jan 14 [place] informati 2016 4:50 [#/volume on in AM ] in source Blood by data Automated count Granulocy 37.0 - % High No Jan 14 [place]/100 80.0 informati 2016 4:50 leukocyte on in AM s in source Blood by data Automated count Hematocri 42.0 - % Low No Jan 14 t [Volume 52.0 informati 2016 4:50 on in AM Fraction] source of Blood data Hemoglobi 14.1 - g/dL Low No Jan 27 n 18.0 informati 2016 4:50 [Mass/vol on in AM ume] in source Blood data Lymphocyt 0.7 - 4.5 K/mm3 Low No Jan 27 es informati 2017 4:50 [#/volume on in AM ] in source Unspecifi data ed specimen by Automated count Lymphocyt 10 - 50 % Low No Jan 27 es informati 2016 4:50 [#/volume on in AM ] in source Unspecifi data ed specimen by Automated count Erythrocy 27 - 31.2 pg Low No Jan 14 te mean informati 2016 4:50 corpuscul on in AM ar source hemoglobi data n [Entitic mass] Erythrocy 31.8 - g/dl Low No Jan 27 te mean 35.4 informati 2016 4:50 corpuscul on in AM ar source hemoglobi data n concentra tion [Mass/vol ume] by Automated count Erythrocy 82.2 - fl Low No Jan 14 te mean 97.8 informati 2016 4:50 corpuscul on in AM ar volume source [Entitic data volume] by Automated count Monocytes 0.1 - 1.0 K/mm3 Normal No Jan 14 informati 2016 4:50 [#/volume on in AM ] in source Blood by data Automated count Monocytes 1.7 - 9.3 % Normal No Jan 14 /100 informati 2017 4:50 leukocyte on in AM s in source Blood by data Automated count Platelet 7.4 - fl Normal No Jan 14 mean 10.4 informati 2016 4:50 volume on in AM [Entitic source volume] data in Blood by Automated count Platelets 142 - 424 K/mm3 Normal No Jan 14 informati 2016 [...] 100 pg/mL High No Jan 05 tic inform 2017 peptide B on in 11:40 AM source [Mass/vol data ume] in Serum or Plasma Cardiac enzymes Observa Value Referen Units Interpr Notes Date tion ce etation Range Creatine 0 - 4.0 U/L Normal No Jan 05 kinase.MB informati 2016 /Creatine on in 11:40 AM source kinase.to data weston [Ratio] in Serum or Plasma Creatine 0.0 - 3.6 ng/mL Normal No Jan 05 kinase.MB informati 2017 on in 11:40 AM [Mass/vol source ume] in data Serum or Plasma Creatine 39 - 308 U/L Normal No Jan 05 kinase informati 2016 [Enzymati on in 11:40 AM c source activity/ data volume] in Serum or Plasma Troponin 0.00 - ng/mL Normal No Jan 05 I.cardiac 0.06 informati 2016 on in 11:40 AM [Mass/vol source ume] in data Serum or Plasma Comprehensive metabolic 2000 panel in Serum or Plasma Observa Value Referen Units Interpr Notes Date tion ce etation Range Albumin/G 1.1 - 1.8 No Low No Jan 05 lobulin informati informati 2016 [Mass on in on in 11:40 AM ratio] in source source Serum or data data Plasma Albumin 3.4 - 5.0 gm/dL Low No Jan 05 [Mass/vol informati 2017 ume] in on in 11:40 AM Serum or source Plasma data Alkaline 46 - 116 U/L Normal No Jan 05 phosphata informati 2016 se on in 11:40 AM [Enzymati source c data activity/ volume] in Serum or Plasma Bilirubin 0.2 - 1.0 mg/dL Normal No Sep 22 .total informati 2017 [Mass/vol on in 11:40 AM ume] in source Serum or data Plasma Urea 7 - 18 mg/dL High No Sep 22 nitrogen informati 2017 [Mass/vol on in 11:40 AM ume] in source Serum or data Plasma Calcium 8.5 - mg/dL Normal No Sep 22 [Mass/vol 10.1 informati 2017 ume] in on in 11:40 [...] gm/dL High No Sep 22 [Mass/vol informati 2017 ume] in on in 11:40 AM Serum source data Glucose 74 - 106 mg/dL High No Sep 22 [Mass/vol informati 2017 ume] in on in 11:40 AM Serum or source Plasma data Potassium 3.5 - 5.1 mmoL/L Normal No Sep 22 informati 2017 [Moles/vo on in 11:40 AM lume] in source Serum or data Plasma Sodium 136 - 145 mmoL/L Normal No Sep 22 [Moles/vo informati 2017 lume] in on in 11:40 AM Serum or source Plasma data Aspartate 15 - 37 U/L Normal No Sep 22 informati 2017 aminotran on in 11:40 AM sferase source [Enzymati data c activity/ volume] in Serum or Plasma Alanine 12 - 78 U/L Normal No Sep 22 aminotran informati 2017 sferase on in 11:40 AM [Enzymati source c data activity/ volume] in Serum or Plasma Protein 6.4 - 8.2 gm/dL Normal No Sep 22 [Mass/vol inform2016 ume] in on in 11:40 AM Serum or source Plasma data CBC W Auto Differential panel in Blood Observa Value Referen Units Interpr Notes Date tion ce etation Range Basophils 0 - 0.2 K/MM3 Normal No Sep 22 inform2016 [#/volume on in 11:40 AM ] in source Blood by data Automated count Basophils 0.1 - 2.0 % Normal No Sep 22 /100 inform 2017 leukocyte on in 11:40 AM s in source Blood by data Automated count Eosinophi 0.0 - 0.4 K/mm3 Normal No Sep 22 ls inform2016 [#/volume on in 11:40 AM ] in source Blood by data Automated count Eosinophi 0.1 - % Normal No Sep 22 ls/100 12.0 inform2016 leukocyte on in 11:40 AM s in source Blood by data Automated count Granulocy 1.3 - 8.0 K/mm3 Normal No Sep 22 [place] inform2016 [#/volume on in 11:40 AM ] in source Blood by data Automated count Granulocy 37.0 - % High No Sep 22 [place]/100 80.0 inform2016 leukocyte on in 11:40 AM s in source Blood by data Automated count Hematocri 42.0 - % Low No Sep 22 t [Volume 52.0 inform2016 on in 11:40 AM Fraction] source of Blood data Hemoglobi 14.1 - g/dL Low No Sep 22 n 18.0 inform2016 [Mass/vol on in 11:40 AM ume] in source Blood data Lymphocyt 0.7 - 4.5 K/mm3 Low No Sep 22 es inform2016 [#/volume [...] Low No Sep 22 te mean 35.4 2016 corpuscul on in 11:40 AM ar source hemoglobi data n concentra tion [Mass/vol ume] by Automated count Erythrocy 82.2 - fl Low No Sep 22 te mean 97.8 inform2016 corpuscul on in 11:40 AM ar volume source [Entitic data volume] by Automated count Monocytes 0.1 - 1.0 K/mm3 Normal No Sep 22 inform2016 [#/volume on in 11:40 AM ] in source Blood by data Automated count Monocytes 1.7 - 9.3 % Normal No Sep 22 /100 inform2016 leukocyte on in 11:40 AM s in source Blood by data Automated count Platelet 7.4 - fl Normal No Sep 22 mean 10.4 inform2016 volume on in 11:40 AM [Entitic source volume] data in Blood by Automated count Platelets 142 - 424 K/mm3 Normal No Sep 22 inform2016 [#/volume on in 11:40 AM ] in source Blood data Erythrocy 4.6 - 6.2 M/mm3 Low No Sep 22 [place] inform2016 [#/volume on in 11:40 AM ] in source Amniotic data fluid Erythrocy 11.5 - % Normal No Sep 22 te 17.5 inform2016 distribut on in 11:40 AM ion width source [Entitic data volume] by Automated count Leukocyte 4.8 - K/MM3 Normal No Sep 22 s 10.8 2016 [#/volume on in 11:40 AM ] [...] % Low No Sep 22 /100 informati 2016 leukocyte [...] 76 % High No Sep 22 ls ati 2017 [#/volume on in 11:40 AM ] in source Blood by data Automated count Cells No #CELLS No No Sep 22 Counted informati informati informati 2017 Total [#] on in on in on in 11:40 AM in Blood source source source data data data Influenza virus A+B Ag [Presence] in Unspecified specimen Observa Value Referen Units Interpr Notes Date ti ce etation Range Influen NOT NOT No [...] Glucose 70 - 110 mg/dl High No Oct 02 [Mass/vol informati 2017 ume] in on in 11:30 AM Capillary source blood by data Glucomete r Glucose [Mass/volume] in Capillary blood by Glucometer Observa Value Referen Units Interpr Notes Date ce etation Range Glucose 70 - 110 mg/dl High No Oct 02 [Mass/vol informati 2017 6:25 ume] in on in AM Capillary source blood by data Glucomete r Glucose [Mass/volume] in Capillary blood by Glucometer Observa Value Referen Units Interpr Notes Date ce etation Range Glucose 70 - 110 mg/dl High No Sep 18 [Mass/vol informati 2017 9:31 ume] in on in PM Capillary source blood by data Glucomete r Glucose [Mass/volume] in Capillary blood by Glucometer Observa Value Referen Units Interpr Notes Date ti ce etation Range Glucose 70 - 110 mg/dl High No Sep 18 [Mass/vol informati 2017 4:28 ume] in on in PM Capillary source blood by data Glucomete r Glucose [Mass/volume] in Capillary blood by Glucometer Observa Value Referen Units Interpr Notes Date ti ce etation Range Glucose 70 - 110 mg/dl High No Sep 18 [Mass/vol alert informati 2017 ume] in on in 12:03 PM Capillary source blood by data Glucomete r Glucose [Mass/volume] in Capillary blood by Glucometer Observa Value Referen Units Interpr Notes Date tion ce etation Range Glucose 70 - 110 mg/dl High No Sep 18 [Mass/vol informati 2017 6:40 ume] in on in AM Capillary source blood by data Glucomete r Glucose [Mass/volume] in Capillary blood by Glucometer Observa Value Referen Units Interpr Notes Date tion ce etation Range Glucose 70 - 110 mg/dl High No Sep 17 [Mass/vol alert informati 2017 7:56 ume] in on in PM Capillary source blood by data Glucomete r Glucose [Mass/volume] in Capillary blood by Glucometer Observa Value Referen Units Interpr Notes Date tion ce etation Range Glucose 70 - 110 mg/dl High No Sep 17 [Mass/vol alert informati 2016 4:40 ume] in on in PM Capillary source blood by data Glucomete r Glucose [Mass/volume] in Capillary blood by Glucometer Observa Value Referen Units Interpr Notes Date tion ce etation Range Glucose 70 - 110 mg/dl High No Sep 17 [Mass/vol informati 2017 ume] in on in 11:54 AM Capillary source blood by data Glucomete r Glucose [Mass/volume] in Capillary blood by Glucometer Observa Value Referen Units Interpr Notes Date ti ce etation Range Glucose 70 - 110 mg/dl High No Sep 17 [Mass/vol informati 2017 6:20 ume] in on in AM Capillary source blood by data Glucomete r Basic metabolic panel in Blood Observa Value Referen Units Interpr Notes Date ti ce etation Range Urea 7 - 18 mg/dL High No Sep 17 nitrogen informati 2017 5:55 [Mass/vol on in AM ume] in source Serum or data Plasma Calcium 8.5 - mg/dL Normal No Sep 17 [Mass/vol 10.1 informati 2017 5:55 ume] in on in AM Serum or source Plasma data Chloride 98 - 107 mmoL/L Normal No Sep 17 [Moles/vo informati 2017 5:55 lume] in on in AM Serum or source Plasma data Carbon 21.0 - mmoL/L High No Sep 17 dioxide, 32.0 informati 2017 5:55 total on in AM [Moles/vo source lume] in data Serum or Plasma Creatinin 0.70 - mg/dL High No Sep 30 e 1.30 informati 2016 5:55 [Mass/vol on in AM [...] - 5.1 mmoL/L Normal No Sep 30 inform2016 5:55 [Moles/vo on in AM lume] in [...] - 2.0 % Normal No Sep 30 informati 2016 5:55 leukocyte on in AM [...] No Sep 30 t [Volume 52.0 informati 2017 5:55 on in AM Fraction] source of Blood data Hemoglobi 14.1 - g/dL Low No Sep 30 n 18.0 informati 2017 5:55 [Mass/vol on in AM ume] in source Blood data Lymphocyt 0.7 - 4.5 K/mm3 Normal No Sep 30 es informati 2017 5:55 [#/volume on in AM ] in source Unspecifi data ed specimen by Automated count Lymphocyt 10 - 50 % Normal No Sep 30 es informati 2017 5:55 [#/volume on in AM ] in source Unspecifi data ed specimen by Automated count Erythrocy 27 - 31.2 pg Low No Sep 30 te mean informati 2017 5:55 corpuscul on in AM ar source hemoglobi data n [Entitic mass] Erythrocy 31.8 - g/dl Low No Sep 30 te mean 35.4 informati 2017 5:55 corpuscul on in AM ar source hemoglobi data n concentra tion [Mass/vol ume] by Automated count Erythrocy 82.2 - fl Normal No Sep 30 te mean 97.8 informati 2017 5:55 corpuscul on in AM ar volume source [Entitic data volume] by Automated count Monocytes 0.1 - 1.0 K/mm3 Normal No Sep 30 informati 2017 5:55 [#/volume on in AM ] in source Blood by data Automated count Monocytes 1.7 - 9.3 % Normal No Sep 17 /100 informati 2017 5:55 leukocyte on in AM s in source Blood by data Automated count Platelet 7.4 - fl Normal No Sep 30 mean 10.4 informati 2017 5:55 volume on in AM [Entitic source volume] data in Blood by Automated count Platelets 142 - 424 K/mm3 Normal No Sep 17 informati 2017 5:55 [#/volume on in AM ] in source Blood data Erythrocy 4.6 - 6.2 M/mm3 Low No Sep 17 [place] informati 2017 5:55 [#/volume on in AM ] in source Amniotic data fluid Erythrocy 11.5 - % Normal No Sep 30 te 17.5 informati 2017 5:55 distribut on in AM ion width source [Entitic data volume] by Automated count Leukocyte 4.8 - K/MM3 No No Fredy 17 s 10.8 informati informati 2017 5:55 [#/volume on in on in AM ] in source source Blood data data Glucose [Mass/volume] in Capillary blood by Glucometer Observa Value Referen Units Interpr Notes Date tion ce etation Range Glucose 70 - 110 mg/dl High No Sep 16 [Mass/vol alert informati 2016 9:40 ume] in [...] Units Interpr Notes Date ti etation Range Glucose 70 - 110 mg/dl High No Sep 16 [Mass/vol informati 2016 6:25 ume] in on in AM Capillary source blood by data Glucomete r Lactate [Moles/volume] in Blood Observa Value Referen Units Interpr Notes Date ti etation Range Lactate 0.4 - 2.0 mmol/L Normal No Sep 16 [Moles/vo informati 2016 lume] in on in Blood source data Natriutietic peptide B [Mass/volume] in Serum or Plasma Observa Value Referen Units Interpr Notes Date ti etation Range Natriutie 0 - 100 pg/mL High No Sep 28 tic informati 2017 peptide B on in 11:40 PM source [Mass/vol data ume] in Serum or Plasma Cardiac enzymes Observa Value Referen Units Interpr Notes Date ti ce etation Range Creatine 0 - 4.0 U/L Normal No Sep 28 kinase.MB informati 2016 /Creatine on in 11:40 PM source kinase.to data weston [Ratio] in Serum or Plasma Creatine 0.0 - 3.6 ng/mL Normal No Sep 28 kinase.MB informati 2017 on in 11:40 PM [Mass/vol source ume] in data Serum or Plasma Creatine 39 - 308 U/L Normal No Sep 15 kinase informati 2017 [Enzymati on in 11:40 PM c source activity/ data volume] in Serum or Plasma Troponin 0.00 - ng/mL Normal No Sep 28 I.cardiac 0.06 informati 2017 on in 11:40 PM [Mass/vol source ume] in data Serum or Plasma Comprehensive metabolic 2000 panel in Serum or Plasma Observa Value Referen Units Interpr Notes Date tion ce etation Range Albumin/G 1.1 - 1.8 No Low No Sep 15 lobulin informati informati 2016 [Mass on in on in 11:40 PM ratio] in source source Serum or data data Plasma Albumin 3.4 - 5.0 gm/dL Low No Sep 15 [Mass/vol informati 2016 ume] in on in 11:40 PM Serum or source Plasma data Alkaline 46 - 116 U/L Normal No Sep 28 phosphata informati 2016 se on in 11:40 PM [Enzymati source c data activity/ volume] in Serum or Plasma Bilirubin 0.2 - 1.0 mg/dL Normal No Sep 28 .total informati 2016 [Mass/vol on in 11:40 PM ume] in source Serum or data Plasma Urea 7 - 18 mg/dL High No Sep 28 nitrogen informati 2016 [Mass/vol on in 11:40 PM ume] in source Serum or data Plasma Calcium 8.5 - mg/dL Normal No Sep 28 [Mass/vol 10.1 informati 2016 ume] in on in 11:40 PM Serum or source Plasma data Chloride 98 - 107 mmoL/L Normal No Sep 28 [Moles/vo informati 2016 lume] in on in 11:40 PM Serum or source Plasma data Carbon 21.0 - mmoL/L High No Sep 28 dioxide, 32.0 informati 2017 total on in 11:40 PM [Moles/vo source lume] in data Serum or Plasma Creatinin 0.70 - mg/dL High No Sep 28 e 1.30 informati 2017 [Mass/vol on in 11:40 PM ume] in source Serum or data Plasma Creatinin 50 - 200 ML/MIN Normal No Sep 28 e renal informati 2017 clearance on in 11:40 PM source predicted data by Cockcroft -Gault formula Estimated >60 ML/MIN No REFERENCE Fredy 15 informati RANGE: 2017 glomerula on in >60 11:40 PM r source ML/MIN/1. filtratio data 73 SQUARE n rate METERSIf (GF this patient is -A merican, then multiply theresult by 1.210. Globulin 1.3 - 3.2 gm/dL High No Sep 15 [Mass/vol informati 2016 ume] in on in 11:40 PM Serum source data Glucose 74 - 106 mg/dL High No Sep 15 [Mass/vol informati 2016 ume] in on in 11:40 PM Serum or source Plasma data Potassium 3.5 - 5.1 mmoL/L Normal No Sep 282016 [Moles/vo on in 11:40 PM lume] in source Serum or data Plasma Sodium 136 - 145 mmoL/L Normal No Sep 28 [Moles/vo informati 2016 lume] in on in 11:40 PM Serum or source Plasma data Aspartate 15 - 37 U/L Low No Sep 28 inform2016 aminotran on in 11:40 PM sferase source [Enzymati data c activity/ volume] in Serum or Plasma Alanine 12 - 78 U/L Normal No Sep 28 aminotran 2016 sferase on in 11:40 PM [Enzymati source c data activity/ volume] in Serum or Plasma Protein 6.4 - 8.2 gm/dL Normal No Sep 28 [Mass/vol informati 2016 ume] in on in 11:40 PM Serum or source Plasma data CBC W Auto Differential panel in Blood Observa Value Referen Units Interpr Notes Date tion ce etation Range Basophils 0 - 0.2 K/MM3 Normal No Sep 282016 [#/volume on in 11:40 PM ] in source Blood by data Automated count Basophils 0.1 - 2.0 % Normal No Sep 28 /100 inform2016 leukocyte on in 11:40 PM s in source Blood by data Automated count Eosinophi 0.0 - 0.4 K/mm3 Normal No Sep 28 ls 2016 [#/volume on in 11:40 PM ] in source Blood by data Automated count Eosinophi 0.1 - % Normal No Sep 28 ls/100 12.0 inform2016 leukocyte on in 11:40 PM s in source Blood by data Automated count Granulocy 1.3 - 8.0 K/mm3 Normal No Sep 28 [place] 2016 [#/volume on in 11:40 PM ] in source Blood by data Automated count Granulocy 37.0 - % High No Sep 15 [place]/100 80.0 inform2016 leukocyte on in 11:40 PM s in source Blood by data Automated count Hematocri 42.0 - % Low No Sep 15 t [Volume 52.0 informati 2016 on in 11:40 PM Fraction] source of Blood data Hemoglobi 14.1 - g/dL Low No Sep 15 n 18.0 informati 2016 [Mass/vol on in 11:40 PM ume] in source Blood data Lymphocyt 0.7 - 4.5 K/mm3 Normal No Sep 15 es inform2016 [#/volume on in 11:40 PM ] in source Unspecifi data ed specimen by Automated count Lymphocyt 10 - 50 % Normal No Sep 15 es inform2016 [#/volume on in 11:40 PM ] in source Unspecifi data ed specimen by Automated count Erythrocy 27 - 31.2 pg Low No Sep 15 te mean inform2016 corpuscul on in 11:40 PM ar source hemoglobi data n [Entitic mass] Erythrocy 31.8 - g/dl Low No Sep 15 te mean 35.4 inform2016 corpuscul on in 11:40 PM ar source hemoglobi data n concentra tion [Mass/vol ume] by Automated count Erythrocy 82.2 - fl Normal No Sep 15 te mean 97.8 inform2016 corpuscul on in 11:40 PM ar volume source [Entitic data volume] by Automated count Monocytes 0.1 - 1.0 K/mm3 Normal No Sep 15 2016 [#/volume on in 11:40 PM ] in source Blood by data Automated count Monocytes 1.7 - 9.3 % Normal No Fredy 15 /100 inform 2017 leukocyte on in 11:40 PM s in source Blood by data Automated count Platelet 7.4 - fl Normal No Sep 15 mean 10.4 inform2016 volume on in 11:40 PM [Entitic source volume] data in Blood by Automated count Platelets 142 - 424 K/mm3 No No Sep 15 informati informati 2016 [#/volume on in on in 11:40 PM ] in source source Blood data data Erythrocy 4.6 - 6.2 M/mm3 Low No Sep 15 [place] informati 2016 [#/volume on in 11:40 PM ] in source Amniotic data fluid Erythrocy 11.5 - % Normal No Sep 28 te 17.5 informati 2016 distribut on in 11:40 PM ion width source [Entitic data volume] by Automated count Leukocyte 4.8 - K/MM3 Normal No Sep 28 s 10.8 informati 2016 [#/volume on in 11:40 PM ] in source Blood data Natriutietic peptide B [Mass/volume] in Serum or Plasma Observa Value Referen Units Interpr Notes Date tion ce etation Range Natriutie 0 - 100 pg/mL High No September 05 tic informati 2016 4:00 peptide B on in PM source [Mass/vol data ume] in Serum or Plasma Troponin I.cardiac [Mass/volume] in Serum or Plasma Observa Value Referen Units Interpr Notes Date tion ce etation Range Troponin 0.00 - ng/mL [...] 145 mmoL/L Normal No September 05 [Moles/vo informati 2016 4:00 lume] in on in PM Serum or source Plasma data Aspartate 15 - 37 U/L Low No September 05 inform2016 4:00 aminotran on in PM sferase source [Enzymati data c activity/ volume] in Serum or Plasma Alanine 12 - 78 U/L Normal No September 05 aminotran informati 2016 4:00 sferase on in PM [Enzymati source [...] 0 - 0.2 K/MM3 Normal No September 05 inform2016 4:00 [#/volume on in PM ] in source Blood by data Automated count Basophils 0.1 - 2.0 % Normal No September 05 informati 2016 4:00 leukocyte on in PM s in source Blood by data Automated count Eosinophi 0.0 - 0.4 K/mm3 Normal No September 05 ls informati 2016 4:00 [#/volume on in PM ] in source Blood by data Automated count Eosinophi 0.1 - % Normal No September 05 ls/100 12.0 informati 2016 4:00 leukocyte on in PM s in source Blood by data Automated count Granulocy 1.3 - 8.0 K/mm3 Normal No September 05 [place] informati 2016 4:00 [#/volume on in PM ] in source Blood by data Automated count Granulocy 37.0 - % High No September 05 [place]/100 80.0 informati 2016 4:00 leukocyte on in PM s in source Blood by data Automated count Hematocri 42.0 - % Low No September 05 t [Volume 52.0 informati 2016 4:00 on in PM Fraction] source of Blood data Hemoglobi 14.1 - g/dL Low September 05 n 18.0 informati 2016 4:00 [Mass/vol on in PM ume] in source Blood data Lymphocyt 0.7 - 4.5 K/mm3 Normal No September 05 es informati 2016 4:00 [#/volume on in PM ] in source Unspecifi data ed specimen by Automated count Lymphocyt 10 - 50 % Normal September 05 es informati 2016 4:00 [#/volume on in PM ] in source Unspecifi data ed specimen by Automated count Erythrocy 27 - 31.2 pg Low September 05 te mean informati 2016 4:00 corpuscul on in PM ar source hemoglobi data n [Entitic mass] Erythrocy 31.8 - g/dl Low No September 05 te mean 35.4 informati 2016 4:00 corpuscul on in PM ar source hemoglobi data n concentra tion [Mass/vol ume] by Automated count Erythrocy 82.2 - fl Normal September 05 te mean 97.8 informati 2016 4:00 corpuscul on in PM ar volume source [Entitic data volume] by Automated count Monocytes 0.1 - 1.0 K/mm3 Normal No September 05 informati 2016 4:00 [#/volume on in PM ] in source Blood by data Automated count Monocytes 1.7 - 9.3 % Normal No September 05 informati 2017 4:00 leukocyte on in PM s in [...] data fluid Erythrocy 11.5 - % Normal September 05 te 17.5 informati 2016 4:00 [...] Plasma data Carbon 21.0 - mmoL/L Normal August 30 dioxide, 32.0 informati 2016 8:55 total on in AM [Moles/vo source [...] 3.5 - 5.1 mmoL/L Normal No August 30 informati 2016 8:55 [Moles/vo on in AM lume] in source Serum or data Plasma Sodium 136 - 145 mmoL/L Normal No August 30 [Moles/vo informati 2016 8:55 lume] in on in AM Serum or source Plasma data Aspartate 15 - 37 U/L Low No August 30 informati 2016 8:55 aminotran on in AM sferase source [Enzymati data c activity/ volume] in Serum or Plasma Alanine 12 - 78 U/L Normal No August 30 aminotran informati 2016 8:55 sferase on in AM [Enzymati source [...] 100 pg/mL High No August 30 tic informati 2016 8:55 peptide B on in AM source [Mass/vol data ume] in Serum or Plasma Lactate [Moles/volume] in Blood Observa Value Referen Units Interpr Notes Date tion ce etation Range Lactate 0.4 - 2.0 mmol/L Normal No August 30 [Moles/vo informati 2016 8:55 lume] in on in AM Blood source data CBC W Auto Differential panel in Blood Observa Value Referen Units Interpr Notes Date tion ce etation Range Basophils 0 - 0.2 K/MM3 Normal No August 30 informati 2016 8:55 [...] 8.0 K/mm3 Normal No August 30 [place] informati 2016 8:55 [#/volume on in AM ] in source Blood by data Automated count Granulocy 37.0 - % Normal No August 30 [place]/100 80.0 informati 2016 8:55 leukocyte on in AM s in source Blood by data Automated count Hematocri 42.0 - % Low August 30 t [Volume 52.0 informati 2016 [...] Erythrocy 27 - 31.2 pg Low No August 30 te mean informati 2016 8:55 corpuscul on in AM ar source hemoglobi data n [Entitic mass] Erythrocy 31.8 - g/dl Low August 30 te mean 35.4 informati 2016 8:55 corpuscul on in AM ar source hemoglobi data n concentra tion [Mass/vol ume] by Automated count Erythrocy 82.2 - fl Low No August 30 te mean 97.8 informati 2016 8:55 corpuscul on in AM ar volume source [Entitic data volume] by Automated count Monocytes 0.1 - 1.0 K/mm3 Normal No August 30 informati 2016 8:55 [#/volume on in AM ] in source Blood by data Automated count Monocytes 1.7 - 9.3 % Normal No August 30 /100 informati 2016 8:55 leukocyte on in AM s in source Blood by data Automated count Platelet 7.4 - fl Low No August 30 mean 10.4 informati 2016 8:55 volume on in AM [Entitic source volume] data in Blood by Automated count Platelets 142 - 424 K/mm3 Normal No August 30 informati 2016 8:55 [#/volume on in AM ] in source Blood data Erythrocy 4.6 - 6.2 M/mm3 Low No August 30 [place] informati 2016 8:55 [#/volume [...] INDICAT data data data \Signed ION:Shirley : [facility] , of air [employer]\. TECHNIQ br\Sign UE:A [...] Interpr Notes Date tion ce etation Range TSH 0.93 0.45 - mIU/mL No No Nov 6 4.50 informa informa 2013 tion in tion in 2:22 PM source source data data CMP Observa Value Referen Units Interpr Notes Date ti ce etation Range Sodium 139 136 - mmol/L No No Nov 6 Level 148 informa informa 2013 tion in tion in 2:22 PM source source data data Potassi 4.7 3.8 - mmol/L No No Nov 19 um 5.2 informa informa 2013 Level tion in tion in 2:22 PM source source data data Chlorid 107 98 - mmol/L No No Nov 6 e 108 informa informa 2013 tion in tion in 2:22 PM source source data data CO2 30.4 22.3 - mmol/L No No Nov 19 33.5 informa informa 2013 tion in tion in 2:22 PM source source data data Glucose 213 70 - mg/dL High No Aug 6 Level 110 informa 2013 tion in 2:22 PM source data Albumin 3.2 3.4 - g/dL Low No Aug 6 Level 5.0 informa 2013 tion in 2:22 PM source data BUN 34 7 - 22 mg/dL High No Aug 6 informa 2013 tion in 2:22 PM source data Creatin 1.8 0.8 - mg/dL High No Aug 6 ine 1.5 informa 2013 tion in 2:22 PM source data Bili 0.29 0.50 - mg/dL Low No Aug 6 Total 1.50 informa 2013 tion in 2:22 PM source data Total 6.9 6.4 - g/dL No No Aug 6 Protein 8.2 inform2013 tion in tion in 2:22 PM source source data data Alk 142 50 - unit/L High No Aug 6 Phos 136 2013 tion in 2:22 PM source data AST 23 22 - 37 unit/L No No Aug 6 informa inform2013 tion in tion in 2:22 PM source source data data ALT 26 12 - 78 unit/L No No Aug 6 informa 2013 tion in tion in 2:22 PM source source data data Calcium 8.2 8.7 - mg/dL Low No Aug 6 10.5 inform2013 tion in 2:22 PM source data Glyhm Observa Value Referen Units Interpr Notes Date tion ce etation Range Hemoglo 10.5 4.2 - % High No Aug 6 bin 6.3 2013 A1c tion in 1:47 PM source data Free T4 Observa Value Referen Units Interpr Notes Date tion ce etation Range T4, 1.15 0.78 - ng/dL No No Aug 6 Free 2.19 inform inform2013 tion in tion in 1:40 PM source source data data CBC Observa Value Referen Units Interpr Notes Date tion ce etation Range WBC 8.77 4.50 - x10-3/m No No Aug 6 11.00 cL inform inform2013 tion in tion in 12:51 source source PM data data RBC 4.21 4.60 - mcL Low No Aug 6 6.20 2013 tion in 12:51 source PM data Hgb 10.3 13.5 - g/dL Low No Aug 6 18.0 inform2013 tion in 12:51 source PM data Hct 34.4 42.0 - % Low No Aug 6 52.0 inform2013 tion in 12:51 source PM data MCV 81.7 80.0 - fL No No Aug 6 94.0 informa inform2013 tion in tion in 12:51 source source PM data data MCH 24.5 27.0 - pg Low No Aug 6 37.0 inform2013 tion in 12:51 source PM data MCHC 29.9 33.0 - g/dL Low No Aug 6 37.0 informa 2014 tion in 12:51 source PM data RDW 42.5 40.0 - fL No No Aug 6 52.0 informa informa 2014 tion in tion in 12:51 source source PM data data Platele 358 130 - x10-3/m No No Aug 6 t 450 cL informa informa 2014 tion in tion in 12:51 source source PM data data Neutro 71 50 - 70 % High No Aug 6 Auto informa 2014 tion in 12:51 source PM data Lymph 16 25 - 40 % Low No Aug 6 Auto informa 2014 tion in 12:51 source PM data Trimble 8 2 - 9 % No No Aug 6 Auto informa informa 2014 tion in tion in 12:51 source source PM data data Eos 4 2 - 4 % No No Aug 6 Auto informa informa 2014 tion in tion in 12:51 source source PM data data Basophi 0 0 - 1 % No No Aug 6 l Auto informa informa 2014 tion in tion in 12:51 source source [...]
--- OUTSIDE RECORDS SUMMARY | 2017-03-11 04:30 | External Medical Summary Rpt ---
Author Author [employer], [employer] Address Unknown Phone Unavailable Payers Section Payer Plan Name Group ID Member ID Coverage Coverage Start End Date Date E04^ [id number] No No MEDICAL MEDICAL 3 informati informati [...] on in 11:40 PM source kinase.to data westno [Ratio] in Serum or Plasma Creatine 0.0 [...] INDICAT data data data \Signed ION:Shirley : [facility] , of [facility] [place]\. TECHNIQ br\Sign UE:A [...] 2014 tion in 12:51 source PM data Leslie 8 2 - 9 % No No [...]
[2017-03-11] MEDS ORDERED: FERROUS SULFAT325 M2 PO (04:31)
[2017-03-11] MEDS ORDERED: FLUTICASONE 50M16 GM ×2 (04:33→07:12)
--- NOTE | 2017-03-11 04:33 | Emergency Room Report ---
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 N Clinical Suspician of Infection? Y Mental Status: 1 - Regular (Normal Baseline) Sepsis Risk:Severe Sepsis Risk Have you (or family members/close friends) recently traveled outside the [place]? N If Yes, where/when: Have you had exposure to infectious disease within the past month? N TB? Other? Specify: Comment The patient is a poor historian. The patient is brought in by ambulance from a care home. He is sent in for shortness of breath and hypoxia. He reports being short of breath all day yesterday and through the night tonight. Pulse ox which is reported to have been in the 70s tonight on his usual nasal cannula oxygen. He says yesterday his legs hurt all day. He has a cough, but does not know if he has a fever and does not know what color his sputum is. He denies chest pain. He has a history of congestive heart failure. He has chronic edema of the legs and venous stasis. He has bandages on both legs when he arrives. He is chronically on 2 L nasal cannula oxygen. He was increased to 6 L during transport. He has a chronic indwelling Sullivan catheter. ER record indicates a history of chronic obstructive pulmonary disease, but I do not see this listed as a diagnosis on his care home transfer papers nor do I see medications associated with that condition. He is a former smoker. 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 Henley at . Primary care physician is Dr. Flower. ALLERGIES Coded Allergies: sulfamethoxazole (From BACTRIM) (01/05/17) trimethoprim (From BACTRIM) (01/05/17) Home Medications Reported Medications ROPINIROLE HCL (Ropinirole) 2 MG PO QHS Aspirin (Aspirin EC 81MG Tab) 81 MG PO DAILY Carvedilol (Carvedilol 25MG) 25 MG PO BID Ferrous Sulfate (Ferrous Sulfate 325MG) 325 MG PO QPM HYDROCODONE/ACETAMINOPHEN ([place] 10-325 Tablet) 1 TAB PO Q6PRN PRN PAIN Docusate Sodium 250 MG PO DAILY MULTIVITAMIN (Multivitamins) 1 TABS PO DAILY Acetaminophen (Pain Relief) 1,000 MG PO Q6HP PRN PAIN/FEVER Bisacodyl (Bisacodyl Supp) 10 MG [place] DAILYP PRN CONSTIPATION Lactulose (Lactulose) 30 ML PO DAILYP PRN CONSTIPATION Eplerenone (Inspra) 12.5 MG PO DAILY GUAIFENESIN/DEXTROMETHORPHAN (Robafen-Dm Syrup) 5 ML PO QHS TORSEMIDE (Torsemide 20MG) 3 TABS PO BID FLUTICASONE PROPIONATE (Fluticasone 50MCG Nasal [place]) 2 SPRAY NA DAILY Polyethylene Glycol 3350 (Miralax) 17 GM PO DAILY Guaifenesin (Robafen) 5 ML PO DAILY Pregabalin (Lyrica) 50 MG PO TID Atorvastatin Calcium (Atorvastatin) 80 MG PO QHS Loratadine (Loratadine 10MG Tablet) 10 MG PO DAILY Ranitidine Hcl (Zantac) 150 MG PO BID Senna Pod (Senna Laxative) 2 TAB PO BID CHOLECALCIFEROL (VITAMIN D3) (Vitamin D3) 2,000 IUNITS PO DAILY Lorazepam (Ativan) 0.5 MG PO QHS Insulin Detemir (Levemir 10ML VIAL) 42 UNITS SC QHS Insulin Aspart, Recombinant (Novolog Flexpen) 20 UNITS SC BID Silver Sulfadiazine (Silvadene) 1 TP DAILY Insulin Aspart (Novolog) (Insulin Aspart Flexpen 3ML) 30 UNITS SC 1100 #9 Atorvastatin Calcium (Atorvastatin) 40 MG PO DAILY Carvedilol (Coreg 25MG) 25 MG PO BID FLUTICASONE PROPIONATE (Fluticasone 50MCG Nasal [place]) 2 SPRAY NA DAILY Polyethylene Glycol 3350 (Miralax) 17 GM PO DAILY Senna Pod (Senna Laxative) 1 TAB PO D TORSEMIDE (Torsemide 20MG) 60 MG PO RO ASCORBIC ACID (Vitamin C) 500 MG PO DAILY History Medical History General CAD? No Angina: No IN: Yes Hypertension? Yes Hyperlipidemia? Yes CHF? Yes DVT? No PE? No COPD? Yes Asthma? No Anemia? Yes GERD? Yes Gastric ulcers? No GI Bleed? No Hernia? No Thyroid Problems? No Hypothyroidism? No CVA? No Seizures? No Diabetes? 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 Yes End Stage Renal Disease? No UTI? Yes Stones? No BPH? No GB Disease: No Nephritic Syndrome? No Asplenia? No Hepatitis? No Sickle Cell Disease? No Arthritis? Yes Migraines? Yes Cataracts? No Glaucoma? No MRSA? No HIV? No TB? No Anxiety? No Depression? No Cancer? No More? Yes Additional hx: RHEUMATOID ARTHRITIS OSTEOARTHRITIS Immunization Hx DT/Tetanus Unknown Flu 2014-FSN Pneumonia Refuses Surgical Hx Previous Surgery?Y STENTS X2 DEFIBRILLATOR PORT PLACED Family History Family Hx Diabetes Yes CAD Yes Hypertension Yes Hyperlipidemia Yes Cancer Yes TB No Social History Smoking Hx Smoker: Former Smoker Tobacco: No Packs/day N/A Alcohol Alcohol: No Additionial History Additional History BUN on 02/19/17 was 79, 112 today. Creatinine on 02/19/17 1.8, 1.9 today. BNP on 01/27/17 was 923, 635 today. Hemoglobin on 02/19/17 was 9.7, 10.1 today Review of Systems All Other Systems Reviewed and Negative Constitutional see HPI Respiratory cough, shortness of breath Cardiovascular denies chest pain, edema Gastrointestinal denies abdominal pain, denies vomiting Physical Exam Vital Signs Vital Signs Date Time Temp Pulse Resp B/P Pulse O2 O2 Flow FiO2 Ox Delivery Rate 03/11 0554 99.8 87 24 143/80 99 03/11 0535 87 24 143/80 99 5 03/11 0457 89 28 147/75 96 4 03/11 0404 99.8 95 32 143/67 95 General Appearance no apparent distress, appears chronically ill Eye Exam - bilateral eye normal exam, bilateral eye PERRL, bilateral eye EOMI Ear, Nose, Throat hearing grossly normal, normal ENT inspection Neck normal inspection, non-tender, supple, full range of motion Respiratory Status Yes: trachea midline, chest symmetrical. No: respiratory distress. Lung Sounds bilateral: normal breath sounds, lungs clear. Cardiovascular normal exam, regular rate/rhythm, no peripheral edema, no gallop, no JVD, no murmur, no rub, normal peripheral pulses Peripheral Pulses Pulses normal Yes Gastrointestinal normal bowel sounds, normal exam, non tender, soft, no organomegaly Extremities gauze bandages from feet to below the knee bilaterally. 3+ pitting edema of feet. Some symmetric erythema is seen at the margins of the bandages. consistent with venous stasis with dermatitis. Neurologic alert, deck hand II-XII nml as tested, normal exam, oriented x 3 Reflexes Reflexes normal Yes Mental status normal mood/affect Skin intact, normal color, warm/dry Medical Decision Making LABS/Meds/Orders Pt receiving controlled substance in ED? No Results/Orders Laboratory Tests 03/11/17 0445: ABG pH 7.33 L, ABG pCO2 (Temp Corrct 70.0 H, ABG pO2 (Temp Correct 76.4 L, ABG HCO3 35.7 H, ABG Total CO2 37.8 H, ABG O2 Sat (Calculated) 93.8, ABG Base Excess 9.6 H, Woo Test ACCEPTABLE, Blood Gas Comments RIGHT RADIAL 03/11/17 0430: Urine Color YELLOW, Urine Appearance SL CLOUDY, Urine pH 5.5, Ur Specific Orange 1.015, Urine Protein NEGATIVE, Urine Ketones NEGATIVE, Urine Blood 1+ H , Urine Nitrate POSITIVE H, Urine Bilirubin NEGATIVE, Urine Urobilinogen 0.2, Ur Leukocyte Esterase 3+ H, Urine RBC 5-10, Urine WBC 50-100, WBC Casts OCC, Urine Mucus 1+, Urine Glucose NEGATIVE 03/11/17 0409: Lactic Acid 0.6 03/11/17 0409: B-Natriuretic Peptide 635 H 03/11/17 0409: Sodium 145, Potassium 4.6, Chloride 102, Carbon Dioxide 40 H, BUN 112 *H, Creatinine 1.9 H, Estimated Creat Clear 44 L, Estimated GFR (MDRD) 36, Glucose 142 H, Calcium 9.1, Total Bilirubin 0.4, AST 18, ALT 20, Alkaline Phosphatase 84, Creatine Kinase 37 L, CK-MB (CK-2) Rel Index 3.8, CK and CKMB Interp 1.4, Troponin I 0.03, Total Protein 7.9, Albumin 2.7 L, Globulin 5.2 H, Albumin/ Globulin Ratio 0.5 L, WBC 9.4, RBC 4.25 L, Hgb 10.1 L, Hct 34.1 L, MCV 80.2 L, RDW 15.7, Plt Count 214, MPV 8.3, Gran % 84.7 H, Gran # 7.9, Lymphocytes % 6.3 L, Monocytes % 7.8, Eosinophils % 0.9, Basophils % 0.3, Lymphocytes # 0.6 L, Monocytes # 0.7, Eosinophils # 0.1, Basophils # 0.0, PUBS MCHC 29.6 L, MCH 23.7 L Current Medication Orders Sig/Malorie Start time Last Medication Dose Route Stop Time Status Admin Methylprednisolone 80 MG Q8 03/11 1300 UNV Sodium Succinate IV Aspirin 81 MG DAILY 03/11 900 UNV PO Carvedilol 25 MG BID 03/11 900 UNV PO Pregabalin 50 MG TID 03/11 09 UNV PO Diagnostic Test (Pha) 1 EACH W/MEALS&HS 03/11 700 UNV 03/11 FS 05/10 0659 0631 Insulin Human [rDNA See Dose W/MEALS&HS 03/11 07 UNV 03/11 origin] Insts (1) SC 0634 Albuterol/Ipratropium 3 ML QIDRT 03/11 06 UNV INH Ceftriaxone Sodium 1 GM Q24H 03/11 545 UNV Sodium Chloride 50 ML IV Hydrocodone Bitart/ 1 TAB Q6HP PRN 03/11 545 UNV 03/11 Acetaminophen PO 0654 Albuterol/Ipratropium 3 ML ONCE ONE 03/11 530 DC 03/11 INH 03/11 531 0535 Ceftriaxone Sodium 1 GM ONCE ONE 03/11 530 DC 03/11 Sodium Chloride 50 ML IV 03/11 0559 0528 Influenza Virus 0.5 ML PRN PRN 03/11 530 UNV Vaccine Quadrival IM Methylprednisolone 125 MG ONCE ONE 03/11 530 DC 03/11 Sodium Succinate IV 03/11 531 0528 Nicotine 21 MG DAILYP PRN 03/11 530 UNV TD Sodium Chloride 1,000 ML .Q20H 03/11 530 UNV 03/11 IV 0630 Sodium Chloride 10 ML PRN PRN 03/11 530 UNV IV Sodium Chloride 50 ML .STK-MED ONE 03/11 527 DC IV Ceftriaxone Sodium 0 .STK-MED ONE 03/11 526 DC IV Albuterol 0 .STK-MED ONE 03/11 525 DC INH Ipratropium [place] 0 .STK-MED ONE 03/11 525 DC INH Methylprednisolone 0 .STK-MED ONE 03/11 524 DC Sodium Succinate .ROUTE Sodium Chloride 10 ML PRN PRN 03/11 415 AC IV 03/12 414 Dose Instructions: (1)Insulin Human [rDNA origin]: SEE ADMIN CRITERIA FOR MEDIUM INTENSITY Orders Procedure Date/time Status BASIC METABOLIC PROFILE 03/12 06 Active DIET-2000 CAL[place]IE ADA 03/11 B Active RT Aerosol Treatment, Provide 03/11 535 Active Decision to admit 03/11 523 Active Decision to admit 03/11 522 Active RT REQUEST DUONEB 03/11 521 Active ARTERIAL BLOOD GAS REQUEST 03/11 430 Active CULTURE, URINE 03/11 430 Active [facility]/11 418 Active ELECTROCARDIOGRAM REQUEST 03/11 418 Active BRAIN NATRIURETIC PEPTIDE 03/11 418 Complete CHEST-PORTABLE 03/11 414 Active IV SALINE LOCK 03/11 414 Active CULTURE, BLOOD 03/11 414 Active URINALYSIS/COMPLETE 03/11 414 Complete LACTIC ACID 03/11 414 Complete CBC WITH AUTO DIFF 03/11 414 Complete CARDIAC ENZYMES 03/11 414 Complete CHEM 12 PROFILE 03/11 414 Complete ADMIT PATIENT 03/11 UNK Active PULSE OXIMETRY REQUEST 03/11 UNK Active OXYGEN REQUEST 03/11 UNK Active RT REQUEST DUONEB 03/11 UNK Active VITAL SIGNS 03/11 UNK Active POM NURSE RADHA HOSE ORDER 03/11 UNK Active IV SALINE LOCK 03/11 UNK Active RECORD I & O 03/11 UNK Active CODE STATUS 03/11 UNK Active PATIENT ACTIVITY ORDER 03/11 UNK Active CM/EKG CM/EKG Comments EKG interpreted by Jay Black MD: Rhythm: sinus Rate: 91 [place]: normal Ectopy: Occasional unifocal PVCs Conduction: normal ST Segment Changes: none T Wave Changes: none Q Waves: none No evidence of acute ischemia or injury Baseline artifact and wander present, but I consider the EKG adequate for accurate interpretation. XRAY/CT/US XRAY/CT/US XRAY chest Comment X-ray interpreted by Jay Black M.D.: cardiomegaly. Low lung volumes. No change from prior. No pulmonary edema, effusions, or infiltrates seen. Progress - Complex patient with dyspnea and hypoxia. He does also have acute on chronic hypercapnia. I suspect this is most likely an exacerbation of chronic obstructive pulmonary disease. I do not see evidence of an exacerbation of congestive heart failure. Lung brand are clear and BNP is lower than recent measurements. BUN is elevated, more likely a little dry rather than wait. 5:20 AM: I have discussed the case with Dr. Sosa for Dr. Flower who agrees to admit the patient to the hospital. We discussed the patient's clinical information, including history, exam, laboratory and radiology results and ED course. Per hospital procedure, I will write temporary bridge inpatient orders on the patient. Specific orders requested by the admitting physician: Gentle hydration, normal saline at 50 mL per hour. Rocephin for possible UTI. Nebulizer treatments and steroids. Oxygen. Departure Departure Disposition Still a Patient Clinical Impression Primary Impression: Respiratory failure with hypoxia and hypercapnia Qualifiers: Chronicity: acute on chronic Qualified Code: J96.21 - Acute and chronic respiratory failure with hypoxia Secondary Impressions: Chronic obstructive pulmonary disease with (acute) exacerbation Dehydration Urinary tract infection Qualifiers: Urinary tract infection type: site unspecified Hematuria presence: with hematuria Qualified Code: N39.0 - Urinary tract infection, site not specified Condition STABLE Referrals Mundo VALDES,Ronny Miller (Family) ED Critical Care Critical Care No at 0722
--- NOTE | 2017-03-11 04:33 | Emergency Room Report ---
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 O2 SATS 77% RA Onset of symptoms date/time:/ or onset unknown for:MEDICAL HX UNKNOWN Treatment Prior to Arrival: EMS TRANSPORT EXPRESSIVE THERAPIST Provided by:EMT Sepsis Risk Assessment: Temp: 99.8 B/P: 143/67 MAP: 92 Pulse: 95 Resp: 32 Recent fever? N Clinical Suspician of Infection? Y Mental Status: 1 - Regular (Normal Baseline) Sepsis Risk:Severe Sepsis Risk Have you (or family members/close friends) recently traveled outside the [place]? N If Yes, where/when: Have you had exposure to infectious disease within the past month? N TB? Other? Specify: Comment The patient is a poor historian. The patient is brought in by ambulance from a retirement. He is sent in for shortness of breath and hypoxia. He reports being short of breath all day yesterday and through the night tonight. Pulse ox which is reported to have been in the 70s tonight on his usual nasal cannula oxygen. He says yesterday his legs hurt all day. He has a cough, but does not know if he has a fever and does not know what color his sputum is. He denies chest pain. He has a history of congestive heart failure. He has chronic edema of the legs and venous stasis. He has bandages on both legs when he arrives. He is chronically on 2 L nasal cannula oxygen. He was increased to 6 L during transport. He has a chronic indwelling Sullivan catheter. ER record indicates a history of chronic obstructive pulmonary disease, but I do not see this listed as a diagnosis on his retirement transfer papers nor do I see medications associated with that condition. He is a former smoker. 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 Helney at . Primary care physician is Dr. Flower. ALLERGIES Coded Allergies: sulfamethoxazole (From BACTRIM) (01/05/17) trimethoprim (From BACTRIM) (01/05/17) Home Medications Reported Medications ROPINIROLE HCL (Ropinirole) 2 MG PO QHS Aspirin (Aspirin EC 81MG Tab) 81 MG PO DAILY Carvedilol (Carvedilol 25MG) 25 MG PO BID Ferrous Sulfate (Ferrous Sulfate 325MG) 325 MG PO QPM HYDROCODONE/ACETAMINOPHEN ([place] 10-325 Tablet) 1 TAB PO Q6PRN PRN PAIN Docusate Sodium 250 MG PO DAILY MULTIVITAMIN (Multivitamins) 1 TABS PO DAILY Acetaminophen (Pain Relief) 1,000 MG PO Q6HP PRN PAIN/FEVER Bisacodyl (Bisacodyl Supp) 10 MG NH DAILYP PRN CONSTIPATION Lactulose (Lactulose) 30 ML PO DAILYP PRN CONSTIPATION Eplerenone (Inspra) 12.5 MG PO DAILY GUAIFENESIN/DEXTROMETHORPHAN (Robafen-Dm Syrup) 5 ML PO QHS TORSEMIDE (Torsemide 20MG) 3 TABS PO BID FLUTICASONE PROPIONATE (Fluticasone 50MCG Nasal [place]) 2 SPRAY NA DAILY Polyethylene Glycol 3350 (Miralax) 17 GM PO DAILY Guaifenesin (Robafen) 5 ML PO DAILY Pregabalin (Lyrica) 50 MG PO TID Atorvastatin Calcium (Atorvastatin) 80 MG PO QHS Loratadine (Loratadine 10MG Tablet) 10 MG PO DAILY Ranitidine Hcl (Zantac) 150 MG PO BID Senna Pod (Senna Laxative) 2 TAB PO BID CHOLECALCIFEROL (VITAMIN D3) (Vitamin D3) 2,000 IUNITS PO DAILY Lorazepam (Ativan) 0.5 MG PO QHS Insulin Detemir (Levemir 10ML VIAL) 42 UNITS SC QHS Insulin Aspart, Recombinant (Novolog Flexpen) 20 UNITS SC BID Silver Sulfadiazine (Silvadene) 1 TP DAILY Insulin Aspart (Novolog) (Insulin Aspart Flexpen 3ML) 30 UNITS SC 1100 #9 Atorvastatin Calcium (Atorvastatin) 40 MG PO DAILY Carvedilol (Coreg 25MG) 25 MG PO BID FLUTICASONE PROPIONATE (Fluticasone 50MCG Nasal [place]) 2 SPRAY NA DAILY Polyethylene Glycol 3350 (Miralax) 17 GM PO DAILY Senna Pod (Senna Laxative) 1 TAB PO D TORSEMIDE (Torsemide 20MG) 60 MG PO RO ASCORBIC ACID (Vitamin C) 500 MG PO DAILY History Medical History General CAD? No Angina: No VT: Yes Hypertension? Yes Hyperlipidemia? Yes CHF? Yes DVT? No PE? No COPD? Yes Asthma? No Anemia? Yes GERD? Yes Gastric ulcers? No GI Bleed? No Hernia? No Thyroid Problems? No Hypothyroidism? No CVA? No Seizures? No Diabetes? 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 Yes End Stage Renal Disease? No UTI? Yes Stones? No BPH? No GB Disease: No Nephritic Syndrome? No Asplenia? No Hepatitis? No Sickle Cell Disease? No Arthritis? Yes Migraines? Yes Cataracts? No Glaucoma? No MRSA? No HIV? No TB? No Anxiety? No Depression? No Cancer? No More? Yes Additional hx: RHEUMATOID ARTHRITIS OSTEOARTHRITIS Immunization Hx DT/Tetanus Unknown Flu 2014-FSN Pneumonia Refuses Surgical Hx Previous Surgery?Y STENTS X2 DEFIBRILLATOR PORT PLACED Family History Family Hx Diabetes Yes CAD Yes Hypertension Yes Hyperlipidemia Yes Cancer Yes TB No Social History Smoking Hx Smoker: Former Smoker Tobacco: No Packs/day N/A Alcohol Alcohol: No Additionial History Additional History BUN on 02/19/17 was 79, 112 today. Creatinine on 02/19/17 1.8, 1.9 today. BNP on 01/27/17 was 923, 635 today. Hemoglobin on 02/19/17 was 9.7, 10.1 today Review of Systems All Other Systems Reviewed and Negative Constitutional see HPI Respiratory cough, shortness of breath Cardiovascular denies chest pain, edema Gastrointestinal denies abdominal pain, denies vomiting Physical Exam Vital Signs Vital Signs Date Time Temp Pulse Resp B/P Pulse O2 O2 Flow FiO2 Ox Delivery Rate 03/11 0554 99.8 87 24 143/80 99 03/11 0535 87 24 143/80 99 5 03/11 0457 89 28 147/75 96 4 03/11 0404 99.8 95 32 143/67 95 General Appearance no apparent distress, appears chronically ill Eye Exam - bilateral eye normal exam, bilateral eye PERRL, bilateral eye EOMI Ear, Nose, Throat hearing grossly normal, normal ENT inspection Neck normal inspection, non-tender, supple, full range of motion Respiratory Status Yes: trachea midline, chest symmetrical. No: respiratory distress. Lung Sounds bilateral: normal breath sounds, lungs clear. Cardiovascular normal exam, regular rate/rhythm, no peripheral edema, no gallop, no JVD, no murmur, no rub, normal peripheral pulses Peripheral Pulses Pulses normal Yes Gastrointestinal normal bowel sounds, normal exam, non tender, soft, no organomegaly Extremities gauze bandages from feet to below the knee bilaterally. 3+ pitting edema of feet. Some symmetric erythema is seen at the margins of the bandages. consistent with venous stasis with dermatitis. 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 No Results/Orders Laboratory Tests 03/11/17 0445: ABG pH 7.33 L, ABG pCO2 (Temp Corrct 70.0 H, ABG pO2 (Temp Correct 76.4 L, ABG HCO3 35.7 H, ABG Total CO2 37.8 H, ABG O2 Sat (Calculated) 93.8, ABG Base Excess 9.6 H, Woo Test ACCEPTABLE, Blood Gas Comments RIGHT RADIAL 03/11/17 0430: Urine Color YELLOW, Urine Appearance SL CLOUDY, Urine pH 5.5, Ur Specific [place] 1.015, Urine Protein NEGATIVE, Urine Ketones NEGATIVE, Urine Blood 1+ H , Urine Nitrate POSITIVE H, Urine Bilirubin NEGATIVE, Urine Urobilinogen 0.2, Ur Leukocyte Esterase 3+ H, Urine RBC 5-10, Urine WBC 50-100, WBC Casts OCC, Urine Mucus 1+, Urine Glucose NEGATIVE 03/11/17 0409: Lactic Acid 0.6 03/11/17 0409: B-Natriuretic Peptide 635 H 03/11/17 0409: Sodium 145, Potassium 4.6, Chloride 102, Carbon Dioxide 40 H, BUN 112 *H, Creatinine 1.9 H, Estimated Creat Clear 44 L, Estimated GFR (MDRD) 36, Glucose 142 H, Calcium 9.1, Total Bilirubin 0.4, AST 18, ALT 20, Alkaline Phosphatase 84, Creatine Kinase 37 L, CK-MB (CK-2) Rel Index 3.8, CK and CKMB Interp 1.4, Troponin I 0.03, Total Protein 7.9, Albumin 2.7 L, Globulin 5.2 H, Albumin/ Globulin Ratio 0.5 L, WBC 9.4, RBC 4.25 L, Hgb 10.1 L, Hct 34.1 L, MCV 80.2 L, RDW 15.7, Plt Count 214, MPV 8.3, Gran % 84.7 H, Gran # 7.9, Lymphocytes % 6.3 L, Monocytes % 7.8, Eosinophils % 0.9, Basophils % 0.3, Lymphocytes # 0.6 L, Monocytes # 0.7, Eosinophils # 0.1, Basophils # 0.0, PUBS MCHC 29.6 L, MCH 23.7 L Current Medication Orders Sig/Malorie Start time Last Medication Dose Route Stop Time Status Admin Methylprednisolone 80 MG Q8 03/11 1300 UNV Sodium Succinate IV Aspirin 81 MG DAILY 03/11 900 UNV PO Carvedilol 25 MG BID 03/11 900 UNV PO Pregabalin 50 MG TID 03/11 09 UNV PO Diagnostic Test (Pha) 1 EACH W/MEALS&HS 03/11 700 UNV 03/11 FS 05/10 0659 0631 Insulin Human [rDNA See Dose W/MEALS&HS 03/11 07 UNV 03/11 origin] Insts (1) SC 0634 Albuterol/Ipratropium 3 ML QIDRT 03/11 06 UNV INH Ceftriaxone Sodium 1 GM Q24H 03/11 545 UNV Sodium Chloride 50 ML IV Hydrocodone Bitart/ 1 TAB Q6HP PRN 03/11 545 UNV 03/11 Acetaminophen PO 0654 Albuterol/Ipratropium 3 ML ONCE ONE 03/11 530 DC 03/11 INH 03/11 531 0535 Ceftriaxone Sodium 1 GM ONCE ONE 03/11 530 DC 03/11 Sodium Chloride 50 ML IV 03/11 0559 0528 Influenza Virus 0.5 ML PRN PRN 03/11 530 UNV Vaccine Quadrival IM Methylprednisolone 125 MG ONCE ONE 03/11 530 DC 03/11 Sodium Succinate IV 03/11 531 0528 Nicotine 21 MG DAILYP PRN 03/11 530 UNV TD Sodium Chloride 1,000 ML .Q20H 03/11 530 UNV 03/11 IV 0630 Sodium Chloride 10 ML PRN PRN 03/11 530 UNV IV Sodium Chloride 50 ML .STK-MED ONE 03/11 527 DC IV Ceftriaxone Sodium 0 .STK-MED ONE 03/11 526 DC IV Albuterol 0 .STK-MED ONE 03/11 525 DC INH Ipratropium [place] 0 .STK-MED ONE 03/11 525 DC INH Methylprednisolone 0 .STK-MED ONE 03/11 524 DC Sodium Succinate .ROUTE Sodium Chloride 10 ML PRN PRN 03/11 415 AC IV 03/12 414 Dose Instructions: (1)Insulin Human [rDNA origin]: SEE ADMIN CRITERIA FOR MEDIUM INTENSITY Orders Procedure Date/time Status BASIC METABOLIC PROFILE 03/12 06 Active DIET-2000 CAL[place]IE ADA 03/11 B Active RT Aerosol Treatment, Provide 03/11 535 Active Decision to admit 03/11 523 Active Decision to admit 03/11 522 Active RT REQUEST DUONEB 03/11 521 Active ARTERIAL BLOOD GAS REQUEST 03/11 430 Active CULTURE, URINE 03/11 430 [facility]/11 418 Active ELECTROCARDIOGRAM REQUEST 03/11 418 Active BRAIN NATRIURETIC PEPTIDE 03/11 418 Complete CHEST-PORTABLE 03/11 414 Active IV SALINE LOCK 03/11 414 Active CULTURE, BLOOD 03/11 414 Active URINALYSIS/COMPLETE 03/11 414 Complete LACTIC ACID 03/11 414 Complete CBC WITH AUTO DIFF 03/11 414 Complete CARDIAC ENZYMES 03/11 414 Complete CHEM 12 PROFILE 03/11 414 Complete ADMIT PATIENT 03/11 UNK Active PULSE OXIMETRY REQUEST 03/11 UNK Active OXYGEN REQUEST 03/11 UNK Active RT REQUEST DUONEB 03/11 UNK Active VITAL SIGNS 03/11 UNK Active POM NURSE RADHA HOSE ORDER 03/11 UNK Active IV SALINE LOCK 03/11 UNK Active RECORD I & O 03/11 UNK Active CODE STATUS 03/11 UNK Active PATIENT ACTIVITY ORDER 03/11 UNK Active CM/EKG CM/EKG Comments EKG interpreted by Jay Black MD: Rhythm: sinus Rate: 91 [place]: normal Ectopy: Occasional unifocal PVCs Conduction: normal ST Segment Changes: none T Wave Changes: none Q Waves: none No evidence of acute ischemia or injury Baseline artifact and wander present, but I consider the EKG adequate for accurate interpretation. XRAY/CT/US XRAY/CT/US XRAY chest Comment X-ray interpreted by Jay Black M.D.: cardiomegaly. Low lung volumes. No change from prior. No pulmonary edema, effusions, or infiltrates seen. Progress - Complex patient with dyspnea and hypoxia. He does also have acute on chronic hypercapnia. I suspect this is most likely an exacerbation of chronic obstructive pulmonary disease. I do not see evidence of an exacerbation of congestive heart failure. Lung brand are clear and BNP is lower than recent measurements. BUN is elevated, more likely a little dry rather than wait. 5:20 AM: I have discussed the case with Dr. Sosa for Dr. Flower who agrees to admit the patient to the hospital. We discussed the patient's clinical information, including history, exam, laboratory and radiology results and ED course. Per hospital procedure, I will write temporary bridge inpatient orders on the patient. Specific orders requested by the admitting physician: Gentle hydration, normal saline at 50 mL per hour. Rocephin for possible UTI. Nebulizer treatments and steroids. Oxygen. Departure Departure Disposition Still a Patient Clinical Impression Primary Impression: Respiratory failure with hypoxia and hypercapnia Qualifiers: Chronicity: acute on chronic Qualified Code: J96.21 - Acute and chronic respiratory failure with hypoxia Secondary Impressions: Chronic obstructive pulmonary disease with (acute) exacerbation Dehydration Urinary tract infection Qualifiers: Urinary tract infection type: site unspecified Hematuria presence: with hematuria Qualified Code: N39.0 - Urinary tract infection, site not specified Condition STABLE Referrals Mundo VALDES,Ronny Miller (Family) ED Critical Care Critical Care No at 0722
[2017-03-11] MEDS ORDERED: MIRALAX17 GM/PACK PO ×2 (04:36→07:13)
[2017-03-11 04:38] LABS: URINE BILIRUBIN - DIPSTICK NEGATIVE (NEG); URINE BLOOD 1+ (NEG)
[2017-03-11] MEDS ORDERED: SENNA LAXATIVE8.6 MG PO (04:40)
[2017-03-11] MEDS ORDERED: TORSEMIDE 20MG20 MG PO ×2 (04:42→07:11)
[2017-03-11] MEDS ORDERED: ASCORBIC ACID500 M2 PO (04:43)
[2017-03-11 04:53] LABS: ALLEN'S TEST ACCEPTABLE; ARTERIAL ABE 9.6 MMOL/L (-2.4-+2.3); ARTERIAL PO2 76.4 MMHG (80-100); ARTERIAL TCO2 37.8 MMOL/L (23-27); OXYGEN 5 L NASAL CANNULA
--- OUTSIDE RECORDS SUMMARY | 2017-03-11 05:31 | External Medical Summary Rpt | CCD ---
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 I50.9 Heart 12-20-2016 failure, unspecified J96.02 Acute 12-20-2016 respiratory failure with hypercapnia K21.9 Gastro-esop 12-20-2016 hageal reflux disease without esophagitis K59.00 Constipatio 12-20-2016 n, unspecified M06.9 Rheumatoid 12-20-2016 arthritis, unspecified N18.3 Chronic 12-20-2016 kidney disease, stage 3 (moderate) R00.1 Bradycardia 12-20-2016 , unspecified R74.8 Abnormal 12-20-2016 levels of other serum enzymes 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 Z95.0 Presence [...] Order Detail nces retati t Range on Arterial blood gas (03-11-2017 04:45) Arteria = 9.6 -2.4-+2 complet l blood 017 MMOL/L .3 ed base 04:45 excess determi nation Woo's ACCEPTA complet test 017 BLE ed before 04:45 ACCEPTA arteria BLE L l blood gas Arteria = 35.7 22.0-26 complet l blood 017 MMOL/L .0 ed 04:45 bicarbo elsi measure ment ( Arteria = 5 L complet l blood 017 NASAL ed total 04:45 CANNULA oxygen content shyam Arteria = 70.0 35.0-45 complet l blood 017 MMHG .0 ed 04:45 partial pressur e of carbo Comment: CRITICAL RESULTS Comment: RESULTS CALLED TO: JORGE ER 03/11/17 0452 Karlee Lynn Arteria = 7.33 7.35-7. complet l blood 017 MMOL/L 45 ed pH 04:45 measure ment Arteria = 76.4 80-100 complet l whole 017 MMHG ed blood 04:45 PO2 at POC Arteria = 93.8 90-100 complet l blood 017 % ed oxygen 04:45 saturat ion calcula SOURCE RIGHT complet 017 RADIAL ed 04:45 Arteria = 37.8 23-27 complet l blood 017 MMOL/L ed carbon 04:45 dioxide , total dillan Gas panel in Arterial blood (03-11-2017 04:45) Arteria ACCEPTA complet l 017 BLE ed patency 04:45 Wrist artery --pre arteria l punctur e SOURCE RIGHT complet 017 RADIAL ed 04:45 Urinalysis with microscopy (03-11-2017 04:30) Urine 1+ 1+ L NEG complet blood 017 ed detecti 04:30 on Glucose = NEG complet ur 017 NEGATIV ed test 04:30 E strip Urine NEGATIV NEG complet ketones 017 E ed 04:30 NEGATIV detecti E L on by mg/dL automat ed shel[place] Mucus 3+ 3+ L NEG complet detecti 017 ed on in 04:30 urine sedimen t by lig Mucus 1+ 1+ L NONE complet detecti 017 ed on in 04:30 urine sedimen t by lig Urine POSITIV NEG complet nitrite 017 E ed 04:30 POSITIV detecti E L on by test strip Urine = 5.5 5.0-8.5 complet pH 017 ed 04:30 Urine = NEG complet protein 017 NEGATIV ed 04:30 E mg/dL measure ment by automat ed t Erythro 5-10 0 complet cytes 017 5-10 L ed detecti 04:30 rbc/hpf on in urine sedimen t Urine 11-26-2 = 1.015 1.005-1 complet specifi 017 .030 ed c 04:30 gravity measure ment Urine 0.2 0.2 NEG complet urobili 017 L ed nogen 04:30 E.U./dL detecti on by test str Urine 50 - O complet leukocy 017 100 ed shelby 04:30 wbc/hpf count (number /volume ) Urine = OCC NONE complet sedimen 017 #/lpf ed t WBC 04:30 cast count by microsc Urine SL CLEAR complet appeara 017 CLOUDY ed nce 04:30 SL determi CLOUDY nation L Urine NEGATIV NEG complet total 017 E ed bilirub 04:30 NEGATIV in E L detecti on by test Urine YELLOW YELLOW complet color 017 YELLOW ed 04:30 L Urinalysis dipstick W Reflex Microscopic panel in Urine (03-11-2017 04:30) Mucus 1+ NONE complet [Presen 017 ed ce] in 04:30 Urine sedimen t by Light microsc opy Erythro 03-11- 5-10 0 complet cytes 017 ed [Presen 04:30 ce] in Urine sedimen t by Light microsc opy Leukocy 03-11- 50-100 O complet shelby 017 wbc/hpf ed [#/volu 04:30 me] in Urine Urinalysis dipstick W Reflex Microscopic panel in Urine (03-11-2017 04:30) Appeara SL CLEAR complet nce of 017 CLOUDY ed Urine 04:30 Bilirub NEGATIV NEG complet in 017 E ed [Presen 04:30 ce] in Urine by Test strip Erythro 1+ NEG Abnorma complet cytes 017 l ed [Presen 04:30 ce] in Urine Color YELLOW YELLOW complet of 017 ed Urine 04:30 Ketones NEGATIV NEG complet 017 E ed [Presen 04:30 ce] in Urine by Automat ed test strip Mucus 03-11-2 3+ NEG Abnorma complet [Presen 017 l ed ce] in 04:30 Urine sedimen t by Light microsc opy Nitrite POSITIV NEG Abnorma complet 017 E l ed [Presen 04:30 ce] in Urine by Test strip Urobili 0.2 NEG complet nogen 017 ed [Presen 04:30 ce] in Urine by Test strip CBC w auto diff (03-11-2017 04:09) Mean = 23.7 27-31.2 complet corpusc 017 pg ed ular 04:09 hemoglo bin (MCH) determ Automat = 29.6 31.8-35 complet ed 017 g/dl .4 ed erythro 04:09 cyte mean corpusc ular h [place] % = 7.8 % 1.7-9.3 complet 017 ed 04:09 Automat = 8.3 7.4-10. complet ed 017 fl 4 ed blood 04:09 platele t mean volume dillan Blood = 214 142-424 complet platele 017 K/mm3 ed t count 04:09 Red = 4.25 4.6-6.2 complet blood 017 M/mm3 ed cell 04:09 count Automat = 15.7 11.5-17 complet ed 017 % .5 ed erythro 04:09 cyte distrib ution width Blood = 9.4 4.8-10. complet leukocy 017 K/MM3 8 ed shelby 04:09 count (number /volume ) Blood = 34.1 42.0-52 complet hematoc 017 % .0 ed rit 04:09 (volume fractio n) Lymphoc = 6.3 % 10-50 complet yte 017 ed count, 04:09 blood, automat ed Automat = 80.2 82.2-97 complet ed 017 fl .8 ed erythro 04:09 cyte mean corpusc ular v Absolut = 0.7 0.1-1.0 complet e 017 K/mm3 ed monocyt 04:09 e count Automat = 0.0 0-0.2 complet ed 017 K/MM3 ed blood 04:09 basophi l count (count/ vo Baso % = 0.3 % 0.1-2.0 complet 017 ed 04:09 Automat = 0.1 0.0-0.4 complet ed 017 K/mm3 ed blood 04:09 eosinop hil count Automat = 0.9 % 0.1-12. complet ed 017 0 ed blood 04:09 eosinop hils/10 0 leukocy t Blood = 7.9 1.3-8.0 complet granulo 017 K/mm3 ed cytes 04:09 automat ed count (numb Granulo = 84.7 37.0-80 complet cyte 017 % .0 ed percent 04:09 age Blood = 10.1 14.1-18 complet hemoglo 017 g/dL .0 ed bin 04:09 measure ment (mass/v olum Absolut = 0.6 0.7-4.5 complet e 017 K/mm3 ed lymphoc 04:09 yte count Blood lactic acid measurement (moles/vol (03-11-2017 04:09) Blood = 0.6 0.4-2.0 complet lactic 017 mmol/L ed acid 04:09 measure ment (moles/ vol Cardiac enzymes (03-11-2017 04:09) Serum = 3.8 0-4.0 complet or 017 U/L ed plasma 04:09 creatin e kinase MB (CK-M Serum = 1.4 0.0-3.6 complet or 017 ng/mL ed plasma 04:09 creatin e kinase MB measu Serum = 37 39-308 complet or 017 U/L ed plasma 04:09 creatin e kinase measure m Serum = 0.03 0.00-0. complet or 017 ng/mL 06 ed plasma 04:09 troponi n i.cardi ac measu Comprehensive metabolic panel (03-11-2017 04:09) Serum 03-11-2 = 0.5 1.1-1.8 complet or 017 ed plasma 04:09 albumin /globul in mass ra Serum = 2.7 3.4-5.0 complet or 017 gm/dL ed plasma 04:09 albumin measure ment (mas Serum = 84 46-116 complet or 017 U/L ed plasma 04:09 alkalin e phospha tase dillan Serum 03-11-2 = 0.4 0.2-1.0 complet or 017 mg/dL ed plasma 04:09 total bilirub in measure m Serum 26-2 = 112 7-18 complet or 017 mg/dL ed plasma 04:09 urea nitroge n measure men Comment: NOTIFICATION RESULT Serum 11-26-2 = 9.1 8.5-10. complet or 017 mg/dL 1 ed plasma 04:09 calcium measure ment (mas Serum 03-11-2 = 102 98-107 complet or 017 mmoL/L ed plasma 04:09 chlorid e measure ment (mo Carbon 03-11-2 = 40 21.0-32 complet dioxide 017 mmoL/L .0 ed 04:09 measure ment Comment: NOTIFICATION RESULT Serum 11-26-2 = 1.9 0.70-1. complet or 017 mg/dL 30 ed plasma 04:09 creatin ine measure ment ( Estimat 03-11-2 = 44 50-200 complet ion of 017 ML/MIN ed creatin 04:09 ine renal clearan ce Estimat 03-11-2 = 36 >60 complet ed 017 ML/MIN ed glomeru 04:09 lar filtrat ion rate (GF Comment: REFERENCE RANGE: >60 ML/MIN/1.73 SQUARE METERS Comment: If this patient is -Stateless, then multiply the Comment: result by 1.210. Serum -26-2 = 5.2 1.3-3.2 complet globuli 017 gm/dL ed n 04:09 measure ment (mass/v olume) Serum --2 = 142 74-106 complet or 017 mg/dL ed plasma 04:09 glucose measure ment (mas Serum 03-11-2 = 4.6 3.5-5.1 complet potassi 017 mmoL/L ed um 04:09 measure ment Serum 11-26-2 = 145 136-145 complet sodium 017 mmoL/L ed measure 04:09 ment Serum -26-2 = 18 15-37 complet or 017 U/L ed plasma 04:09 asparta te aminotr ansfera ALT 03-11-2 = 20 12-78 complet (SGPT) 017 U/L ed ser/mateo 04:09 s Protein 11-26-2 = 7.9 6.4-8.2 complet total 017 gm/dL ed ser/mateo 04:09 s Brain natriuretic peptide (03-11-2017 04:09) Brain = 635 0-100 complet natriur 017 pg/mL ed etic 04:09 peptide CBC w auto diff (02-19-2017 12:40) Automat = 0.0 0-0.2 complet ed 017 K/MM3 ed blood 12:40 basophi l count (count/ vo Baso % = 0.5 % 0.1-2.0 complet 017 ed 12:40 Mean = 23.4 27-31.2 complet corpusc 017 pg ed ular 12:40 hemoglo bin (MCH) determ Automat = 29.4 31.8-35 complet ed 017 g/dl .4 ed erythro 12:40 cyte mean corpusc ular h [place] = 79.6 82.2-97 complet ed 017 fl .8 ed erythro 12:40 cyte mean corpusc ular v Absolut = 0.5 0.1-1.0 complet e 017 K/mm3 ed monocyt 12:40 e count [place] % = 7.3 % 1.7-9.3 complet 017 ed 12:40 Automat = 8.0 7.4-10. complet ed 017 fl 4 ed blood 12:40 platele t mean volume dillan Blood = 234 142-424 complet platele 017 K/mm3 ed t count 12:40 Red = 4.16 4.6-6.2 complet blood 017 M/mm3 ed cell 12:40 count Automat = 16.3 11.5-17 complet ed 017 % .5 ed erythro 12:40 cyte distrib ution width Blood = 6.3 4.8-10. complet leukocy 017 K/MM3 8 ed shelby 12:40 count (number /volume ) Automat = 0.1 0.0-0.4 complet ed 017 K/mm3 ed blood 12:40 eosinop hil count Automat = 2.2 % 0.1-12. complet ed 017 0 ed blood 12:40 eosinop hils/10 0 leukocy t Blood = 5.2 1.3-8.0 complet granulo 017 K/mm3 ed cytes 12:40 automat ed count (numb Granulo = 82.1 37.0-80 complet cyte 017 % .0 ed percent 12:40 age Blood = 33.1 42.0-52 complet hematoc 017 % .0 ed rit 12:40 (volume fractio n) Blood = 9.7 14.1-18 complet hemoglo 017 g/dL .0 ed bin 12:40 measure ment (mass/v olum Absolut = 0.5 0.7-4.5 complet e 017 K/mm3 ed lymphoc 12:40 yte count Lymphoc = 7.8 % 10-50 complet yte 017 ed count, 12:40 blood, automat ed Blood lactic acid measurement (moles/vol (02-19-2017 12:40) Blood = 0.8 0.4-2.0 complet lactic 017 mmol/L ed acid 12:40 measure ment (moles/ vol Cardiac enzymes (02-19-2017 12:40) Serum = 1.4 0-4.0 complet or 017 U/L ed plasma 12:40 creatin e kinase MB (CK-M Serum = 0.8 0.0-3.6 complet or 017 ng/mL ed plasma 12:40 creatin e kinase MB measu Serum = 56 39-308 complet or 017 U/L ed plasma 12:40 creatin e kinase measure m Serum = 0.04 0.00-0. complet or 017 ng/mL 06 ed plasma 12:40 troponi n i.cardi ac measu Comprehensive metabolic panel (02-19-2017 12:40) Serum = 0.5 1.1-1.8 complet or 017 ed plasma 12:40 albumin /globul in mass ra Serum = 2.6 3.4-5.0 complet or 017 gm/dL ed plasma 12:40 albumin measure ment (mas Serum = 68 46-116 complet or 017 U/L ed plasma 12:40 alkalin e phospha tase dillan Serum = 0.3 0.2-1.0 complet or 017 mg/dL ed plasma 12:40 total bilirub in measure m Serum = 79 7-18 complet or 017 mg/dL ed plasma 12:40 urea nitroge n measure men Serum = 9.1 8.5-10. complet or 017 mg/dL 1 ed plasma 12:40 calcium measure ment (mas Serum = 99 98-107 complet or 017 mmoL/L ed plasma 12:40 chlorid e measure ment (mo Carbon = 40 21.0-32 complet dioxide 017 mmoL/L .0 ed 12:40 measure ment Serum = 1.8 0.70-1. complet or 017 mg/dL 30 ed plasma 12:40 creatin ine measure ment ( Estimat = 53 50-200 complet ion of 017 ML/MIN ed creatin 12:40 ine renal clearan ce Estimat = 38 >60 complet ed 017 ML/MIN ed glomeru 12:40 lar filtrat ion rate (GF Serum = 5.3 1.3-3.2 complet globuli 017 gm/dL ed n 12:40 measure ment (mass/v olume) Serum = 207 74-106 complet or 017 mg/dL ed plasma 12:40 glucose measure ment (mas Serum = 4.2 3.5-5.1 complet potassi 017 mmoL/L ed um 12:40 measure ment Serum = 140 136-145 complet sodium 017 mmoL/L ed measure 12:40 ment Serum = 17 15-37 complet or 017 U/L ed plasma 12:40 asparta te aminotr ansfera ALT = 17 12-78 complet (SGPT) 017 U/L ed ser/mateo 12:40 s Protein = 7.9 6.4-8.2 complet total 017 gm/dL ed ser/mateo 12:40 s CBC w auto diff (01-27-2017 04:50) Baso % = 0.2 % 0.1-2.0 complet 017 ed 04:50 Automat = 0.1 0.0-0.4 complet ed 017 K/mm3 ed blood 04:50 eosinop hil count Automat = 1.5 % 0.1-12. complet ed 017 0 ed blood 04:50 eosinop hils/10 0 leukocy t Blood = 6.0 1.3-8.0 complet granulo 017 K/mm3 ed cytes 04:50 automat ed count (numb Granulo = 83.3 37.0-80 complet cyte 017 % .0 ed percent 04:50 age Blood = 32.9 42.0-52 complet hematoc 017 % .0 ed rit 04:50 (volume fractio n) Blood = 9.7 14.1-18 complet hemoglo 017 g/dL .0 ed bin 04:50 measure ment (mass/v olum Absolut = 0.6 0.7-4.5 complet e 017 K/mm3 ed lymphoc 04:50 yte count Lymphoc = 8.7 % 10-50 complet yte 017 ed count, 04:50 blood, automat ed Mean = 23.7 27-31.2 complet corpusc 017 pg ed ular 04:50 hemoglo bin (MCH) determ Automat = 29.6 31.8-35 complet ed 017 g/dl .4 ed erythro 04:50 cyte mean corpusc ular h Automat = 80.3 82.2-97 complet ed 017 fl .8 ed erythro 04:50 cyte mean corpusc ular v Absolut = 0.4 0.1-1.0 complet e 017 K/mm3 ed monocyt 04:50 e count [place] % = 6.2 % 1.7-9.3 complet 017 ed 04:50 Automat = 7.8 7.4-10. complet ed 017 fl 4 ed blood 04:50 platele t mean volume dillan Blood = 212 142-424 complet platele 017 K/mm3 ed t count 04:50 Red = 4.10 4.6-6.2 complet blood 017 M/mm3 ed cell 04:50 count Automat = 16.5 11.5-17 complet ed 017 % .5 ed erythro 04:50 cyte distrib ution width Blood = 7.2 4.8-10. complet leukocy 017 K/MM3 8 ed shelby 04:50 count (number /volume ) Automat = 0.0 0-0.2 complet ed 017 K/MM3 ed blood 04:50 basophi l count (count/ vo Brain natriuretic peptide (01-27-2017 04:50) Brain = 923 0-100 complet natriur 017 pg/mL ed etic 04:50 peptide Cardiac enzymes (01-27-2017 04:50) Serum = 1.3 0.0-3.6 complet or 017 ng/mL ed plasma 04:50 creatin e kinase MB measu Serum = 43 39-308 complet or 017 U/L ed plasma 04:50 creatin e kinase measure m Serum = 0.02 0.00-0. complet or 017 ng/mL 06 ed plasma 04:50 troponi n i.cardi ac measu Serum = 3.0 0-4.0 complet or 017 U/L ed plasma 04:50 creatin e kinase MB (CK-M Comprehensive metabolic panel (01-27-2017 04:50) Serum = 103 98-107 complet or 017 mmoL/L ed plasma 04:50 chlorid e measure ment (mo Carbon = 41 21.0-32 complet dioxide 017 mmoL/L .0 ed 04:50 measure ment Serum = 1.4 0.70-1. complet or 017 mg/dL 30 ed plasma 04:50 creatin ine measure ment ( Estimat = 68 50-200 complet ion of 017 ML/MIN ed creatin 04:50 ine renal clearan ce Estimat = 51 >60 complet ed 017 ML/MIN ed glomeru 04:50 lar filtrat ion rate (GF Serum = 5.1 1.3-3.2 complet globuli 017 gm/dL ed n 04:50 measure ment (mass/v olume) Serum = 146 74-106 complet or 017 mg/dL ed plasma 04:50 glucose measure ment (mas Serum = 4.4 3.5-5.1 complet potassi 017 mmoL/L ed um 04:50 measure ment Serum = 143 136-145 complet sodium 017 mmoL/L ed measure 04:50 ment Serum = 19 15-37 complet or 017 U/L ed plasma 04:50 asparta te aminotr ansfera ALT = 19 12-78 complet (SGPT) 017 U/L ed ser/mateo 04:50 s Protein = 7.8 6.4-8.2 complet total 017 gm/dL ed ser/mateo 04:50 s Serum = 0.5 1.1-1.8 complet or 017 ed plasma 04:50 albumin /globul in mass ra Serum = 69 46-116 complet or 017 U/L ed plasma 04:50 alkalin e phospha tase dillan Serum = 2.7 3.4-5.0 complet or 017 gm/dL ed plasma 04:50 albumin measure ment (mas Serum = 0.5 0.2-1.0 complet or 017 mg/dL ed plasma 04:50 total bilirub in measure m Serum = 57 7-18 complet or 017 mg/dL ed plasma 04:50 urea nitroge n measure men Serum = 8.9 8.5-10. 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
--- OUTSIDE RECORDS SUMMARY | 2017-03-11 05:31 | External Medical Summary Rpt | CCD ---
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 I50.9 Heart 12-20-2016 failure, unspecified J96.02 Acute 12-20-2016 respiratory failure with hypercapnia K21.9 Gastro-esop 12-20-2016 hageal reflux disease without esophagitis K59.00 Constipatio 12-20-2016 n, unspecified M06.9 Rheumatoid 12-20-2016 arthritis, unspecified N18.3 Chronic 12-20-2016 kidney disease, stage 3 (moderate) R00.1 Bradycardia 12-20-2016 , unspecified R74.8 Abnormal 12-20-2016 levels of other serum enzymes 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 complet leukocy 017 K/MM3 8 ed shebly 04:09 count (number /volume ) Blood = [...] SQUARE METERS Comment: If this patient is -[place], then multiply the Comment: result by 1.210. 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
--- OUTSIDE RECORDS SUMMARY | 2017-03-11 05:55 | External Medical Summary Rpt | CCD ---
Author Author , NOREEN Thomas NOREEN Address Unknown Phone [email or web address] Care Team Providers Care Camp Assistant Name Role Phone [facility], [facility] Unavailable Unavailable [facility] Unavailable Unavailable [facility]OCI[facility], [facility] Unavailable Unavailable RESPONSE, [facility] RHODA BACA MD, PSC, Unavailable Unavailable RHODA BACA MD, PSC [facility]available Unavailable [place], [facility] [place] KENTON ARMIJO, Unavailable Unavailable K[facility] AR[facility]JO MD, Unavailable Unavailable [facility], ROSY POWELL MD, [facility] MASSIMO MARISCAL Unavailable Unavailable M, MASSIMO MARISCAL, Unavailable Unavailable GraceP.S.CIrena, LES MARCH M.D.P.S.CIrena BHAGRATHSIMINKSENIA S, Unavailable Unavailable BHAGRATH KSENIA S [facility] Unavailable Unavailable ON RED, [facility] Unavailable Unavailable SERVICE, [facility] Unavailable Unavailable SERVICE, [facility]available Unavailable SERVICE, [facility] Unavailable Unavailable CONSULTANTS O, [facility], Unavailable Unavailable [facility] Unavailable Unavailable [facility], [facility] YANG, Unavailable Unavailable YANG DEAN REGINA CRUTCHER KOKO, Unavailable Unavailable INDY KOKO [facility], [facility] KEY, [place], Unavailable Unavailable KEY, [place] [facility] Unavailable Unavailable KIDNEY CARE, [facility] Unavailable Unavailable [facility], [facility], Unavailable Unavailable [facility] FALLIS DIANA, FALLIS Unavailable Unavailable DIANA [facility] Unavailable Unavailable #[id number], [id number] MORRO ZHENG, Unavailable Unavailable MORRO ZHENG GOPI K, Unavailable Unavailable ISABEL ALVARADO [facility] Unavailable Unavailable PHARMACY, [facility], Unavailable Unavailable [facility] Unavailable Unavailable INC, [facility] Unavailable Unavailable [facility]PITAL, [facility] Unavailable [facility]available HOSPITAL P, [facility] P [facility] Unavailable Unavailable MEDICAL CE, [facility] Unavailable Unavailable MEDICAL CENT, [facility] Unavailable Unavailable INC, [facility], Unavailable Unavailable [facility] Unavailable Unavailable PLL, [facility], Unavailable Unavailable HOSPICE PENDING SALE TO [facility] Unavailable [facility]available PHYSICIANS, [facility] MODI, VANDANA Cox, RIAN, Unavailable Unavailable VANDANA [facility] Unavailable Unavailable [place], [facility] [place] [facility], Unavailable Unavailable [id number] Unavailable Unavailable [id number] Unavailable Unavailable PHARMACY, [facility] Un[facility], [facility] & Unavailable Unavailable VASCULAR PH, [facility] Unavailable Unavailable IMAGING ASS, [facility] # Unavailable Unavailable [id number], [id number] Unavailable Unavailable [facility]ANCED [facility], [facility], [facility] Unavailable Unavailable COMMUNITY ACT, [facility] LUIS E HAM, LUIS E HAM Unavailable Unavailable [facility] Unavailable Unavailable ASSOCIAT, [facility] Un[facility] Unavailable SURGERY, [facility] Unavailable Unavailable MEDICAL, [facility] Un[facility] Unavailable [facility], [facility] Unavailable Unavailable [facility]ARMACY, [facility], Unavailable Unavailable [facility], [facility] Unavailable Unavailable AMBULANCE SE, [facility] SE [facility], Unavailable Unavailable PLLC, [facility] KRAFT ANTONINA, KRAFT Unavailable Unavailable ANTONINA PAWSAT, PAWSAT Unavailable Unavailable PAWSAT MAR, PAWSAT Unavailable Unavailable MAR HURLEY, RAMOS W, Unavailable Unavailable HURLEY, RAMOS W PEASI, PEASI Unavailable Unavailable [facility] Unavailable Unavailable PRACTICE CL, [facility] Unavailable Unavailable AM[facility]ULAN, [facility] Unavailable Unavailable [facility], [facility], Unavailable Unavailable [facility] Unavailable Unavailable SERVICE, [facility] PROVID[facility] Unavailable Unavailable SERVICES IN, [facility] Unavailable Unavailable [facility], [facility] Unavailable Unavailable HEALTH CARE, [facility], Unavailable Unavailable [facility] KETTY BROTHERS, ZEV, Unavailable Unavailable KETTY Carcamo [facility] Unavailable Unavailable E[facility]IP[facility], [facility], Unavailable Unavailable [facility] ZE BLACKWELL, Unavailable Unavailable ZE BLACKWELL [facility] Unavailable Unavailable HOSPITALS, [facility], Unavailable Unavailable [facility], Unavailable Unavailable [facility] # Unavailable Unavailable [id number], [facility] # [id number] [facility] Unavailable Unavailable AGENCY, [facility] ZE MAN, Unavailable Unavailable ZE MAN WILLIAM Unavailable Unavailable Bryn, CUONG LECHUGA PHILIP N, Unavailable Unavailable MICHAEL DE LA ROSA Purpose Continuity of Care Document - 10-31-2006 through 2016 Problems Code Diagnosis DOS Provider Status N179 ACUTE 02-12-2017 [facility] UNSPECIFIED [id number] ULCERATIVE 01-29-2017 [place] [facility] LEFT LOWER CENTER EYELID D649 ANEMIA 01-27-2017 [facility] UNSPECIFIED PHYSICIANS, PLLC E119 TYPE 2 01-27-2017 [facility] DI[facility]ES [facility] MELLITUS INC WITHOUT COMPLICATIO NS I10 ESSENTIAL 01-27-2017 [facility] PRIMARY [facility] HYPERTENSIO INC N I110 HYPERTENSIV 01-27-2017 [facility] PHYSICIANS, DISEASE PLL WITH HEART FAILURE I5043 ACUTE ON 01-27-2017 [facility] CHRONIC PHYSICIANS, COMB [facility] SYSTOLIC & DIASTOLIC CHF J449 CHRONIC 01-27-2017 [facility] OBSTRUCTIVE [facility] PULMONARY INC DISEASE UNS K219 GASTRO-ESOP 01-27-2017 [facility] H REFLUX [facility] DISEASE INC WITHOUT ESOPHAGITIS R0689 OTHER 01-27-2017 [facility] AMBULANCE BREATHING SE R079 CHEST PAIN 01-27-2017 [place] U[facility]PEC[facility]IED [facility] IM[facility]ING ASS Z7409 OTHER 01-27-2017 [facility] M[facility] AMB[facility] SE 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 01-27-2017 [facility] CURRENT USE [facility] OF INSULIN INC Z7982 CARE HOME 01-27-2017 [facility] CURRENT USE [facility] OF ASPIRIN INC I2510 ASHD TANANA 01-22-2017 [facility] ARTERY W/O HOSPITALS ANGINA PECTORIS I252 OLD 01-22-2017 [facility] INFARCTION HOSPITALS I255 ISCHEMIC 01-22-2017 [facility] THY HOSPITALS I472 VENTRICULAR 01-22-2017 [facility] TACHYCARDIA HOSPITALS I5022 CHRONIC 01-22-2017 [facility] HEART FAILURE I509 HEART 01-22-2017 [facility] FAILURE HEALTH UNSPECIFIED ASSOCIATES R0609 OTHER FORMS 01-22-2017 OF [facility] H[facility]PITALS H78161 PRESENCE 01-22-2017 [facility] IMPLANTABLE HOSPITALS CARDIAC DEFIBRILLAT OR R0602 SHORTNESS 01-19-2017 [facility] OF BREATH [facility] R918 OTHER 01-19-2017 SY[facility] NONSPECIFIC [facility] ABNORMAL FINDING OF LUNG FIELD E785 HYPERLIPIDE 01-18-2017 [facility] UNSPECIFIED ASSOCIATES N183 CHRONIC 01-18-2017 [facility] DISEASE ASSOCIATES STAGE 3 MODERATE G894 CHRONIC 01-14-2017 [facility] PAIN [facility] SY[facility] CARE M069 RHEUMATOID 01-14-2017 [place] ARTHRITIS [facility] UNSPECIFIED HEALTH CARE N19 UNSPECIFIED 01-14-2017 [place] KIDNEY [facility] FAILURE HEALTH CARE Z950 PRESENCE OF 01-14-2017 [place] CARDIAC [facility] R600 LOCALIZED 01-11-2017 [facility] Z955 PRESENCE OF 01-11-2017 CORONARY [facility] ANGIOPLASTY HOSPITALS IMPLANT & GRAFT M6281 MUSCLE 01-05-2017 [facility] WEAK[facility] AMBULANCE GENERALIZED SERVICE R61347 OTHER LONG 01-05-2017 [facility] HOSPITAL P DRUG THERAPY Z882 ALLERGY 01-05-2017 [facility] STATUS TO MEM [facility]OS[facility] SULFONAMIDE INC S STATUS R609 EDEMA 01-04-2017 [facility] U[facility]PECIFIED [facility]ARE HOSPITALS E139 OTH SPEC 01-01-[address] [facility] DIABETES PHYSICIANS MELLITUS GROUP W/O COMPLICATIO NS E875 HYPERKALEMI 01-01-[address] [facility] A PHYSICIANS GROUP I5020 UNSPECIFIED 01-01-[address] [facility] SYSTOLIC PHYSICIANS CONGESTIVE GROUP HEART FAILURE N189 CHRONIC 01-01-[address] [facility] KIDNEY PHYSICIANS DISEASE GROUP UNSPECIFIED Z4502 ENCOUNTER 12-21-2016 [facility] AUTO HOSPITALS IMPLANTABL CARD DEFIB N390 URINARY 12-16-2016 [facility] INFECTION ASSOCIATES SITE NOT SPECIFIED R001 BRADYCARDIA 12-14-2016 [place] [facility] U[facility]PECIFIED FOUNDATION R69 ILLNESS 12-14-2016 [place] UNSPECIFIED [facility] B356 TINEA 12-13-2016 [facility] E1122 TYPE 2 12-13-2016 [facility] MELLITUS HOSPITALS W/DIAB CHRON KIDNEY DZ E1140 TYPE 2 DM 12-13-2016 WITH HEALTHCARE DIABETIC HOSPITALS NEUROPATHY UNSPECIFIED G2581 RESTLESS 12-13-2016 [facility] I161 HYPERTENSIV 12-13-2016 [facility] E EMERGENCY [facility]ALTHCARE HOSPITALS J9602 ACUTE 12-13-2016 RESP[facility]ATORY [facility]CARE FAILURE HOSPITALS WITH HYPERCAPNIA R0600 DYSPNEA 12-13-2016 [place] [facility] UNSPECIFIED SERV FOUNDATION D631 ANEMIA IN 12-04-2016 [place] [facility] CHRONIC SERV KIDNEY [facility]OUNDATION DISEASE I129 HYPERTENSIV 12-04-2016 [place] [facility] E CKD SERV W/STAGE 1-4 FOUNDATION CKD OR UNS CKD N250 RENAL 12-04-2016 [facility] OSTEODYSTRO SERV PHY FOUNDATION J129 VIRAL 11-28-2016 [facility] PNEUMONIA [facility] UNSPECIFIED R339 RETENTION 11-21-2016 [place] OF URINE [facility] UNSPECIFIED HOSPITAL P R338 OTHER 11-14-2016 [facility]ALITY RETENTION PROVIDER OF URINE SERVICES IN C36320 PRESSURE 10-14-2016 [facility] ULCER OF PROVIDER RIGHT HEEL SERVICES IN UNSTAGEABLE F88242 NON-PRSS 10-14-2016 [facility] CHR ULCR PROVIDER UNS PART SERVICES IN UNS LOW LEG UNS SEV J189 PNEUMONIA 09-29-[address] [facility] UNSPECIFIED PHYSICIANS ORGANISM GROUP N289 DISORDER OF 09-29-[address] [facility] KIDNEY AND PHYSICIANS URETER GROUP UNSPECIFIED R05 COUGH 09-28-2016 [facility] AMBULANCE SE I5021 ACUTE 09-08-2016 [facility] SYSTOLIC SERV CONGESTIVE FOUNDATION HEART FAILURE R279 UNSPECIFIED 09-08-2016 [facility] LACK OF MEDICAL COORDINATIO RESPONSE N I130 HTN HEART & 09-07-2016 [facility] CKD W/HF & SERV CKD STAGE FOUNDATION 1-4 OR UNS CKD I5023 ACUTE CHRON 09-07-2016 [facility] SYSTOLIC SERV HEART FOUNDATION FAILURE I517 CARDIOMEGAL 09-07-2016 [place] [facility] Y SERV [facility] J9601 ACUTE 09-07-2016 [facility] RESPIRATORY SERV FAILURE FOUNDATION WITH HYPOXIA R778 OTHER 09-07-2016 [place] [facility] SPECIFIED SERV ABNORMALITI FOUNDATION ES OF PLASMA PROTEINS I214 NON-ST 09-06-2016 [facility] INFARCTION I4581 LONG QT 09-06-2016 [place] [facility] SYNDROME SERV FOUNDATION J9691 RESPIRATORY 09-06-2016 [place] [facility] FAILURE SERV UNSPECIFIED FOUNDATION WITH HYPOXIA R9431 ABNORMAL 09-06-2016 [place] [facility] ELECTROCARD SERV IOGRAM FOUNDATION E1165 TYPE 2 09-05-2016 [facility] [place]PER[place]YCEM [place] S22516 PAIN IN 09-05-2016 [place] [facility]G [facility] Q90984 PAIN IN 09-05-2016 [place] LEFT LEG MEDICAL IM[facility]ING ASS M7989 OTHER 09-05-2016 [place] SPECIFIED MEDICAL SOFT TISSUE IMAGING ASS DISORDERS R269 UNSPECIFIED 09-05-2016 [facility] AMBULANCE ES OF GAIT SE AND MOBILITY R531 WEAKNESS 09-05-2016 [facility] AMBULANCE SE Z8679 PERSONAL 09-05-2016 [facility] HISTORY OTH PHYSICIANS, DISEASES PLL CIRCULATORY SYSTEM Z7401 BED 08-30-2016 [facility] AMBULANCE STATUS SERVICE E109 TYPE 1 08-14-2016 [facility] DIABETES HEALTH MELLITUS ASSOCIATES WITHOUT COMPLICATIO NS L0390 CELLULITIS 08-14-2016 [facility] UNSPECIFIED HEALTH ASSOCIATES M869 OSTEOMYELIT 08-11-2016 [facility] IS MOBILE XRAY UNSPECIFIED SERVICE R0989 OTH SPEC SX 07-20-2016 [facility] & SIGNS MOBILE XRAY INVLV THE SERVICE CIRC & RESP SYS E1151 TYPE 2 DM 05-11-2016 [facility] W/DIAB PERIPH 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 W38259 PRESSURE 05-11-2016 [facility] ULCER OF RIGHT ANKLE STAGE 2 H94735 PRESSURE 05-11-2016 [facility] ULCER OF LEFT ANKLE UNSTAGEABLE M1990 UNSPECIFIED 05-06-2016 [facility] AMBULANCE OSTEOARTHRI SERVICE TIS UNSPECIFIED SITE R0789 OTHER CHEST 05-06-2016 [facility] PAIN PHYSICIANS, [facility] G53975 CELLULITIS 04-25-2016 [facility] OF RIGHT LOWER LIMB S16437 PRESSURE 04-25-2016 [facility] ULCER OF RIGHT HEEL STAGE 2 E559 VITAMIN D 04-24-2016 [facility] HEALTH UNSPECIFIED ASSOCIATES L089 LOCAL INF 04-18-2016 [facility] THE SKIN & HEALTH SUBCUTANEOU ASSOCIATES S TISSUE UNS R319 HEMATURIA 04-18-2016 [facility] P A32566 UNSPECIFIED 04-17-2016 [facility] RIGHT LOWER EYELID Q22783B UNSPECIFIED 03-29-2016 [facility] LOWER ASSOCIATES LEG INITIAL ENC N58549 PAIN IN 03-20-2016 [facility] LEFT KNEE MEM [facility]OS[facility] INC M179 OSTEOARTHRI 02-22-2016 [facility] TIS OF KNEE MEM HOSP INC UNSPECIFIED N4889 OTHER 02-18-2016 [facility] SPECIFIED [facility] P OF [place] N489 DISORDER OF 02-18-2016 [facility] [place] UNSPECIFIED AMBULANCE SE R3989 OTH 02-18-2016 [facility] SYMPTOM[facility] & COUNTY SIGNS AMBULANCE INVOLVING SE THE SYSTEM R52 PAIN 02-18-2016 [facility] UNSPECIFIED COUNTY AMBULANCE SE F225CMA UNS COMP 02-18-2016 [facility] DEVICE IMPL AMBULANCE & GRAFT SE INIT ENC R1084 GENERALIZED 02-13-2016 [facility] ABDOMINAL EMERGENCY PAIN AMBULAN R1930 ABDOMINAL 02-13-2016 [facility] RIGIDITY [facility] UNSPECIFIED AMBULAN SITE R5381 OTHER 02-13-2016 [facility] AMBULANCE SERVICE Z466 ENCOUNTER 02-13-2016 [facility] FITTING AND PHYSICIANS, [facility] E118 TYPE 2 02-04-2016 [facility] DIABETES [facility] MELLITUS INC W/UNS COMPLICATIO NS Z539 PROCEDURE & 02-04-2016 [facility] TREATMENT [facility]OS[facility] NOT CARRIED INC OUT UNS REASON M169 OSTEOARTHRI 01-10-2016 RHODA BACA, TIS OF HIP , PSC UNSPECIFIED G53638 PAIN IN 01-10-2016 [facility] UNSPECIFIED [facility]OS[facility] HIP INC S54754 PAIN IN 01-10-2016 [facility] UNSPECIFIED [facility] HOS[facility] KNEE INC E878 OTHER D/O 12-27-2015 [facility] ELECTROLYTE ASSOCIATES AND FLUID BALANCE NEC M67248 OTHER 12-17-2015 [facility] SPECIFIED [facility] HOSP RHEUMATOID INC ARTHRITIS LEFT HIP M1612 UNILATERAL 12-17-2015 [facility] PRIMARY [facility] OSTEOARTHRI INC TIS LEFT HIP L35143 PAIN IN 12-07-2015 [facility] LEFT THIGH [facility]OS[facility] INC A35267 PAIN IN 12-07-2015 [facility] LEFT LOWER [facility] LEG INC U36900 PAIN IN 12-06-2015 [facility] LEFT HIP [facility] INC M11953 NON-PRSS 11-24-[address] [facility] CHRN ULCER PHYSICIANS SKIN OTH GROUP SITES UNS SEVERITY M44250 TYPE 2 11-16-2015 [facility] DIABETES MELLITUS WITH FOOT ULCER M2570 OSTEOPHYTE 11-16-2015 [place] [facility] UNSPECIFIED JOINT O92145 PAIN IN 10-19-2015 [place] [facility] RIGHT FOOT D509 IRON 09-29-2015 [facility] DEFICIENCY HEALTH ANEMIA ASSOCIATES UNSPECIFIED K76134 COMBINED 08-24-2015 [facility] FORMS OF EYE AGE-RELATED INSTITUTE CATARACT LEFT EYE H269 UNSPECIFIED 08-24-2015 [facility] CATARACT MEM [facility]OS[facility] INC K86183 COMBINED 07-27-2015 [facility] FORMS OF EYE AGE-RELATED INSTITUTE CATARACT RIGHT EYE E46 UNSPECIFIED 2015 [facility] PROTEIN-EVGENY ASSOCIATES ORIE MALNUTRITIO N M00562 COMBINED 06-22-2015 [facility]-RELATED INSTITUTE CATARACT BILATERAL H538 OTHER 06-22-2015 [place] [facility]UAL [facility] DISTURBANCE INSTITUTE S N186 END STAGE 05-24-2015 [facility] RENAL HEALTH DISEASE ASSOCIATES 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 [facility] CY CHRONIC PERIPHERAL I071 RHEUMATIC 05-11-2015 [facility] TRICUSPID SERV INSUFFICIEN FOUNDATION CY 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 05-11-2015 [facility] C MITRAL SERV VALVE FOUNDATION INSUFFICIEN CY Z0189 ENCOUNTER 05-06-2015 [facility] OTHER AMB SERVICE SPECIFIED SPECIAL EXAMINATION S E1136 TYPE 2 04-29-2015 [facility] MELLITUS CENTER WITH DIABETIC CATARACT H2513 AGE-RELATED 04-29-2015 [facility] NUCLEAR VISION CATARACT CENTER BILATERAL T82088 CATARACT 04-29-2015 [facility] SECONDARY TO OCULAR DISORDERS UNS EYE I5032 CHRONIC 04-29-2015 [facility] DIASTOLIC CONGESTIVE HEART FAILURE R5382 CHRONIC 04-29-2015 [facility] FATIGUE UNSPECIFIED 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 M7731 CALCANEAL 03-30-2015 [place] SPUR RIGHT MEDICAL FOOT IMAGING ASS M059 RA WITH 03-23-2015 [facility] RHEUMATOID EMERGENCY FACTOR AMBULAN UNSPECIFIED G79450 PAIN IN 03-23-2015 [facility] UNSPECIFIED EMERGENCY LIMB AMBULAN C36424R LACERATION 03-23-2015 [facility] W/FOREIGN EMERGENCY BODY UNS AMBULAN FOOT INITIAL ENC Z7901 CARE HOME 03-16-2015 [facility] CURRENT USE HEALTH OF ASSOCIATES ANTICOAGULA NTS G8929 OTHER 02-25-2015 [facility] CHRONIC EMERGENCY PAIN AMBULAN J9690 RESP FAIL 02-25-2015 [facility] UNS UNS EMERGENCY WHETHER AMBULAN W/HYPOXIA/H YPERCAPNIA E975 02-24-2015 [facility] A419 SEPSIS 02-18-2015 [facility] UNSPECIFIED HEALTH ORGANISM ASSOCIATES E0590 THYROTOXICO 02-18-2015 [facility] SIS UNS W/O HEALTH THYROTOXIC ASSOCIATES CRISIS/STOR M R350 FREQUENCY 02-18-2015 [facility] MICTURITION ASSOCIATES R7989 OTHER SPEC 02-18-2015 [facility] ABNORMAL HEALTH FINDINGS ASSOCIATES BLOOD CHEMISTRY R4182 ALTERED 01-22-2015 [facility] MENTAL EMERGENCY STATUS AMBULAN UNSPECIFIED I270 PRIMARY 01-21-2015 [facility] PULMONARY LAR HYPERTENSIO CONSULTANTS N O J39921 ASHD TANANA 01-19-2015 [facility] COR ARTREY LAR W/UNS CONSULTANTS ANGINA O PECTORIS Q76136G NONDSPL FX 01-19-2015 [facility] 2ND GENERAL METATARSAL SURGERY RT FT INIT ENC CLOS FX E1365 OTH SPEC 01-16-2015 [facility] DIABETES LAR MELLITUS CONSULTANTS WITH O HYPERGLYCEM IA I272 OTHER 01-15-2015 [facility] PULMONARY MEDICAL HYPERTENSIO N J811 CHRONIC 01-15-2015[facility] PULMONARY RADIOLOGY EDEMA ASSOCIAT J9610 CHRONIC 01-15-2015 [facility] RESPIRATORY REGIONAL FAIL UNS MEDICAL HYPOXIA/HYP ERCAPNIA A03269 NON-PRSS 01-15-2015[facility] CHRN ULCR RADIOLOGY OTH PART LT ASSOCIAT FOOT UNS SEVERITY H18099 NON-PRSS 01-15-2015 [facility] CHR ULCR REGIONAL UNS PART LT MEDICAL LOW LEG UNS SEV Z08935I DISPLACED [facility] METATARSAL ASSOCIAT RT FT INIT CLOS FX I5040 UNSPECIFIED 01-14-2015 [facility] SYSTOLIC & HOSPITAL DIASTOLIC CHF J90 PLEURAL 01-14-2015 [facility] EFFUSION MEDICAL NOT IMAGING ASS ELSEWHERE CLASSIFIED M0540 RHEUMATOID 01-14-2015 [facility] WITH HOSPITAL UNSPECIFIED SITE R590 LOCALIZED 01-14-2015 [place] ENLARGED MEDICAL LYMPH NODES IMAGING ASS 09484 COR 01-13-2015 [facility] ATHEROSLERO LAR UNSPEC CONSULTANTS TYPE VESSEL O TANANA/YOVANNY T 4258 CARDIOMYOPA 01-13-2015 [facility] THY OTHER LAR DISEASES CONSULTANTS CLASSIFIED O ELSW 4280 CONGESTIVE 01-13-2015 [facility] HEART LAR FAILURE CONSULTANTS [place]NSPECIFIED O 01656 SHORTNESS 01-13-2015 [facility] OF BREATH LAR CONSULTANTS O 66643 DIAB W/O 01-12-2015 [facility] COMP TYPE [facility] II/UNS NOT HOSPITAL P STATED UNCNTRL 2724 OTHER AND 01-12-2015 [facility] UNSPECIFIED [facility] HYPERLIPIDE NICHOLAS 3384 CHRONIC 01-12-2015 [facility] PAIN [facility] SYNDROME 4019 UNSPECIFIED 01-12-2015 [facility] ESSENTIAL [facility] HYPERTENSIO HOSPITAL P N 4254 OTHER 01-12-2015 [facility] PRIMARY [facility] CARDIOMYOPA HOSPITAL P MARNI 4259 UNSPECIFIED 01-12-2015 [facility] SECONDARY [facility] CARDIOMYOPA THY 27080 UNSPECIFIED 01-12-2015 [facility] SYSTOLIC [facility] HEART FAILURE 496 CHRONIC 01-12-2015 [facility] EMERGENCY OBSTRUCTION AMBULAN NEC 96825 ACUTE 01-12-2015 [facility] RESPIRATORY [facility] FAILURE 5849 ACUTE 01-12-2015 [facility] KIDNEY EMERGENCY FAILURE AMBULAN UNSPECIFIED 5853 CHRONIC 01-12-2015 [facility] DISEASE STAGE III (MODERATE) 7140 RHEUMATOID 01-12-2015 [facility] 7862 COUGH 01-12-2015 [facility] 89388 SOLITARY 01-12-2015 [facility] V4582 POSTSURG 01-12-2015 [facility] ANGPLSTY STS V5867 LONG-TERM 01-12-2015 [facility] P V5869 LONG-TERM 01-12-2015 [facility] (CURRENT) [facility] USE OF HOSPITAL P OTHER MEDICATIONS 58237 01-04-2015 [facility] COMMUNITY ACT 45191 ATRIAL 12-25-2014 [facility] N [facility] O 7823 EDEMA 12-25-2014 [facility] AMBULANCE SERVICE 37202 OTHER FLUID 12-24-2014 [facility] 81475 ANEMIA IN 12-24-2014 [facility] DISEASE 17538 HTN CKD UNS 12-24-2014 [facility] W/CKD SERV STAGE I [facility] THRU STAGE IV/UNS 5880 RENAL 12-24-2014 [facility] OSTEODYSTRO [facility] PHY [facility] 4240 MITRAL 12-22-2014 [facility] DISORDERS [facility] 4242 TRICUSPID 12-22-2014 [facility] SPEC NONRHEUMATI C 62656 OCCL&STENOS 12-22-2014 [place] [facility] PRECERBRL IMAGING [facility] ART W/O INFARCT 95327 OTHER 12-19-[address] [facility] CHRONIC PHYSICIANS PAIN GROUP 4011 ESSENTIAL 12-19-[address] [facility] HYPERTENSIO PHYSICIANS N, BENIGN GROUP 4439 UNSPECIFIED 12-18-2014 [facility] DISEASE O V4509 OTHER 12-18-2014 [facility] SPECIFIED [facility] CARDIAC INC DEVICE IN SITU 5601 PARALYTIC 12-09-[address] [facility] ILEUS PHYSICIANS GROUP 7873 FLATULENCE 12-02-[address] [facility] ERUCTATION PHYSICIANS AND GAS GROUP PAIN 17938 ABDOMINAL 12-02-[address] [facility] PAIN, PHYSICIANS UNSPECIFIED GROUP SITE 81983 UNS 12-01-2014 [facility] ASTRODUODIT SERVICE IS W/O MENTION HEMORR 5609 UNSPECIFIED 12-01-2014 [facility]TESTINAL [facility] INC OBSTRUCTION 39543 CALCU 12-01-2014 [place] [facility] W/O MENTION IMAGING ASS CHOLECYST/O BST V4502 AUTOMATIC 12-01-2014 [facility] IMPLANTABLE [facility] CARDIAC INC DEFIBRILLAT OR SITU 250 DIABETES 11-26-2014 [facility] [place]ENCY [place] RED 55293 OTHER 11-23-2014 [facility] SPECIFIED CARDIAC DYSRHYTHMIA S 5851 CHRONIC 11-23-2014 [facility] [place] I 38469 RESTLESS 11-06-2014 [facility] LEGS PRIMARY SYNDROME CARE 70668 ESOPHAGEAL 11-06-2014 [facility] REFLUX PRIMARY CARE 4293 CARDIOMEGAL 10-13-2014 [place] [address] OTHER 10-13-2014 [facility] DYSPNEA AND REGIONAL MEDICAL CE RESPIRATORY ABNORMALITI ES 5932 ACQUIRED 10-07-2014 [place] [facility] OF [facility]ICAL KIDNEY IMAGING ASS 67807 UNSPECIFIED 09-11-2014 [facility] INFECTION PARTNERS OF OF BONE [place] ANKLE AND FOOT 9597 INJURY 09-11-2014 [facility] CIFIED KNEE INC LEG ANKLE&FOOT V5881 FITTING AND 09-11-2014 [place] ADJUSTMENT MEDICAL OF IMAGING ASS VASCULAR CATHETER 81271 DIAB W/O 09-08-2014 [place] [facility] MENTION SERV COMP TYPE FOUNDATION II/UNS TYPE UNCNTRL 2767 HYPERPOTASS 08-26-2014 [facility] P 412 OLD 08-26-2014 [facility] INFARCTION INC 16640 CORONARY 08-26-2014 [facility] CORONARY ARTERY 5859 CHRONIC 08-26-2014 [facility] DISEASE INC UNSPECIFIED 51537 WHEEZING 08-26-2014 [place] [facility] 1101 DERMATOPHYT 08-14-2014 [facility] OF NAIL 76336 DIAB 08-14-2014 [facility] W/PERIPH CIRC D/O TYPE II/UNS TYPE UNCNTRL 7295 PAIN IN 08-14-2014 [facility] SOFT TISSUES OF LIMB 462 ACUTE 08-08-2014 [facility]NG[facility]IS [facility] INC 25344 OTH NONSPC 08-08-2014 [facility] FINDNG MEDICAL RAD&OTH EXM IMAGING ASS BODY STRUCTURE 714 RA AND 07-23-2014 [facility] OTHER AREA AGENCY INFLAMMATOR ON RED Y POLYARTHROP ATHIES 16981 URINARY 07-09-2014 [facility]CY PR[facility]ARE 4271 PAROXYSMAL 06-22-2014 [place] [facility] VENTRICULAR SERV [facility]ATION TACHYCARDIA V5331 FITTING AND 06-22-2014 [place] [facility] ADJUST[facility] SERV OF CARDIAC FOUNDATION PACEMAKER V707 EXAMINATION 06-22-2014 [place] [facility] OF SERV PARTICIPANT FOUNDATION IN CLINICAL TRIAL 50079 OTHER 06-21-2014 [place] [facility] PREMATURE SERV BEATS FOUNDATION 74046 NONSPECIFIC 06-21-2014 [place] [facility] ABNORMAL SERV ELECTROCARD FOUNDATION IOGRAM 06152 DIAB 06-18-2014 [facility] TYPE II/UNS TYPE UNCNTRL 61942 ACUT [place] 06-18-2014 [facility] IAL INFARCT INIT EPIS CARE 50920 ULCER OF 06-18-2014 [facility] ALL[facility]ANCE V4589 OTHER 06-18-2014 [place] [facility] POSTSURGICA SERV L STATUS FOUNDATION OTHER 31436 DIAB W/O 06-17-2014 [place] [facility] MENTION SERV COMP TYPE I FOUNDATION [JUV TYPE] UNCNTRL 19719 ACUT 06-17-2014 [facility] MYOCARD AMBULANCE INFARCT UNS SERVICE SITE EPIS CARE UNS 22098 ACUTE 06-17-2014 [facility]OSPITAL P UNSPEC SITE INIT EPIS CARE 5180 PULMONARY 06-17-2014 [place] [facility] COLLAPSE SERV [facility]OUNDATION 7850 UNSPECIFIED 06-17-2014 [place] [facility] TACHYCARDIA IMAGING ASS 27624 PRECORDIAL 06-17-2014 [facility] 3572 POLYNEUROPA 06-10-2014 [facility] IN HEALTH DIABETES AGENCY 96499 ULCER OF 06-10-2014 [facility] OTHER PART HEALTH OF FOOT AGENCY 23225 MUSCLE 06-10-[facility] (GENERALIZE AGENCY D) 6745 CELLULITIS 04-14-2014 [facility] AND ABSCESS PRIMARY OF LEG CARE EXCEPT FOOT 20251 INSOMNIA 03-19-2014 [facility] UNSPECIFIED PRIMARY CARE 04154 UNSPECIFIED 01-22-2014 [facility] [place] [address] ULCER OF 01-22-2014 [facility]F [facility] INC V571 OTHER 01-22-2014 [facility] PHYSICAL [facility] THERAPY INC 8911 OPEN WOUND 01-19-2014 [facility] OF KNEE LEG PRIMARY AND ANKLE CARE COMPLICATED 586 UNSPECIFIED 08-27-2013 [facility] RENAL REGIONAL FAILURE MEDICAL CE 7038 OTHER 08-27-2013 [facility] SPECIFIED PRIMARY DISEASE OF CARE NAIL 02471 OLECRANON 08-01-2013 [facility] BURSITIS PRIMARY CARE 56492 GEN 07-22-2013 [facility] HOME SIS MEDICAL INVOLVING EQUIPME MULTIPLE SITES 44690 GENERALIZED 05-22-2013 [facility] OSTEO[facility]RO SIS UNSPECIFIED SITE 12809 ULCER OF 03-17-2013 [facility] HEEL AND PRIMARY MIDFOOT CARE 7812 ABNORMALITY 03-17-2013 [facility] OF GAIT PRIMARY CARE 68376 OSTEOARTHRO 02-20-2013 [facility] [place] SIS UNSPEC ORTHOPAEDIC WHETHER S PLC GEN/LOC LOWER LEG V0481 NEED 02-12-2013 [facility] PROPHYLACTI PRIMARY C CARE VACCINATION &INOCULATIO N FLU 34955 PAIN IN 11-15-2012 [facility] JOINT, PRIMARY SHOULDER CARE REGION 14696 PAIN IN 11-15-2012 [facility] JOINT, PRIMARY UPPER ARM CARE 17918 UNSPEC 10-08-2012 [facility]OP [facility]POLYAR [place] THRITIS SITE UNSPEC 21267 DIAB 09-20-2012 [place] W/NEURO REGIONAL MANIFESTS MEDICAL CE TYPE II/UNS TYPE UNCNTRL 4871 INFLUENZA 05-27-2012 [facility] [place] WITH OTHER RESPIRATORY MANIFESTATI ONS 25894 FEVER 05-18-2012 [facility] UNSPECIFIED [place] 4660 ACUTE 04-25-2012 [facility] [place] BRONCHITIS 4658 ACUTE URIS 02-28-2012 [facility] [place] OF OTHER MULTIPLE SITES 70059 PRESSURE 02-28-2012 [facility] [place] [facility]LCER HEEL 7993 UNSPECIFIED 01-19-2012 [facility] 40146 OTHER 07-24-2011 [facility] [place] URINARY INCONTINENC E 10448 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 INTERVERTEB RAL DISC 7291 UNSPECIFIED 12-23-2010 [facility] MYALGIA JOSE MARCHPIrenaSKaleigh MYOSITIS 35815 UNSPECIFIED 11-30-2010 [place] LAPAROSCOPI OSTEOMYELIT C & IS ANKLE ADVANCED S AND FOOT 9961 [facility] 11-30-2010 [place] OTH LAPAROSCOPI VASCULAR C & DEVICE ADVANCED S IMPLANT&[place] [address] FLUSHING 09-20-2010 [facility] [place] [address] PRESSURE 06-14-2010 ROSY Nelson ULCER ANDRE VALDES, UNSPECIFIED LLC SITE 84520 ACUTE 06-14-2010 ROSY Nelson OSTEOMYELIT ANDRE VALDES, IS SITE LLC UNSPECIFIED 17250 ACUTE 06-02-2010 ROSY BEDOLLAOMYELION POWELL MD, IS, ANKLE LLC AND FOOT 2859 UNSPECIFIED 05-19-2010 [facility] 23755 UNSPECIFIED 05-19-2010 [facility] CELLULIT[facility] AND INC ABSCESS OF TOE 29162 PRESSURE 05-19-2010 [facility] ULCER SOLUTIONS BUTTOCK 27229 UNSPECIFIED 05-17-2010 [place] LAPAROSCOPI OSTEOMYELIT C & IS OTHER ADVANCED S SPECIFIED SITES 15682 CHEST PAIN 05-17-2010 [place] UNSPECIFIED HEART & VASCULAR PH 6829 CELLULITIS 05-16-2010 [facility] [place] AND ABSCESS IMAGING PSC OF UNSPECIFIED SITE 16251 UNSPECIFIED 05-16-2010 ROSY POWELL MD, OSTEOMYELIT LLC IS SITE UNSPECIFIED 5939 UNSPECIFIED 05-13-2010 [facility] [place] DISORDER IMAGING PSC OF KIDNEY AND URETER 76624 OTHER CHEST 05-13-2010 [place] PAIN LAPAROSCOPI C & ADVANCED S 62113 OTHER 05-13-2010 [facility]TOM[facility] INVOLVING KIDNEY CARE URINARY SYSTEM 34885 PRESSURE 05-12-2010 [facility] [place] [address] PRESSURE 05-12-2010 [facility] ULCER STAGE REGIONAL II MEDICAL CE 7851 PALPITATION 04-19-2010 [facility] S HEART & VASCULAR PH 3569 UNSPEC 04-14-2010 [facility] HEREDIT&IDI FAMILY OPATHIC PRACTICE CL PERIPHERAL NEUROPATHY 12332 DIAB W/O 01-24-2010 [facility] COMP TYPE I FAMILY [JUV] NOT PRACTICE CL STATED UNCNTRL 7801 HALLUCINATI 12-23-2009 [facility] ONS EMERGENCY PHYSICIANS 6827 CELLULITIS 11-02-2009 [facility] AND ABSCESS EMERGENCY OF FOOT PHYSICIANS EXCEPT TOES 64777 OSTEOARTHRO 11-02-2009 [facility] [place] SIS UNSPEC IMAGING PSC WHETHER GEN/LOC ANK&FOOT 9174 FOOT&TOE 11-02-2009 [facility] INSECT BITE EMERGENCY PHYSICIANS NONVENOMOUS W/O MENTION INF 9175 FOOT AND 11-02-2009 [place] TOE INSECT REGIONAL BITE MEDICAL NONVENOMOUS CENT INFECTED E0008 OTHER 11-02-2009 [facility] EXTERNAL REGIONAL CAUSE MEDICAL STATUS CENT E8490 PLACE OF 11-02-2009 [facility] OCCURRENCE, EMERGENCY HOME PHYSICIANS E9064 BITE OF 11-02-2009 [facility] NONVENOMOUS EMERGENCY ARTHROPOD PHYSICIANS 3670 HYPERMETROP 10-21-2009 [facility] PTON, JERMAINE 51074 OTHER 10-05-2009 [facility] 09973 PAIN IN 09-07-2009 [place] JOINT PAIN PELVIC PHYSICIANS REGION AND PSC THIGH 28960 PAIN IN 09-07-2009 [place] JOINT, PAIN LOWER LEG PHYSICIANS PSC 7242 LUMBAGO 09-07-2009 [place] PAIN PHYSICIANS PSC 7410 SPINA 08-03-2009 BHAGRATH, BIFIDA WITH KSENIA S HYDROCEPHAL US 7804 DIZZINESS 07-30-2009 [place] AND PAIN GIDDINESS PHYSICIANS PSC 52216 POLYARTICUL 07-08-2009 [place] AR JUVENILE PAIN RA CHRONIC PHYSICIANS OR PSC UNSPECIFIED 7852 UNDIAGNOSED 07-01-2009 [place] CARDIAC HEART & [facility] VASCULAR PHYSICIANS, INC 58203 PAIN IN 11-09-2008 [facility], L HOME MULTIPLE MEDICAL SITES SUPPLIES INC 2689 UNSPECIFIED 10-02-2008 [place] VITAMIN D REGIONAL DEFICIENCY MEDICAL CENT 5852 CHRONIC 10-02-2008 [facility] KIDNEY REGIONAL DISEASE MEDICAL STAGE II CENT (MILD) 19966 HYPERTROPHY 10-02-2008 [facility] PROSTATE REGIONAL W/O UR OBST MEDICAL & OTH LUTS CENT 7910 PROTEINURIA 10-02-2008 [facility] 7231 CERVICALGIA 07-08-2008 [place] PAIN PHYSICIANS PSC 70736 OSTEOARTHRO 2008 [facility] [place] S UNSPEC ORTHOPAEDIC GEN/LOC S PLC PELV REGION&THIG H 3829 UNSPECIFIED 05-28-2008 [facility] 4659 ACUTE URIS 04-28-2008 [place] OF [facility] UNSPECIFIED HOSP SITE 7213 LUMBOSACRAL 04-02-2008 [facility] SERVICES SPONDYLOSIS 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 7244 THORACIC/TY 04-02-2008 [facility] MBOSACRAL SERVICES NEURITIS/RA PSC DICULITIS UNSPEC 8472 LUMBAR 04-02-2008 [facility] SPRAIN AND SERVICES STRAIN PSC 6828 CELLULITIS 03-03-2008 [place] AND ABSCESS [facility] OF OTHER HOSP SPECIFIED SITE 98610 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 11038 SPINAL 02-26-2008 [facility] STENOSIS OF SERVICES THORACIC PSC REGION 7241 PAIN IN 02-26-2008 [facility] THORACIC SERVICES SPINE PSC 11780 CLOS FX 02-26-2008 [facility] T7-T12 SERVICES LEVEL PSC W/UNSPEC SPINAL CORD INJURY 96812 SECONDARY 02-25-2008 [facility] HYPERPARATH NEPHROLOGY YROIDISM CONSULTANTS 9524 INJURY TO 02-11-2008 [facility] DORSAL SERVICES NERVE ROOT PSC 18243 OSTEOARTHRO 01-14-2008 [facility] S UNSPEC SERVICES GEN/LOC OTH PSC SPEC SITES 43059 DISPLCMT 01-14-2008 [facility] LUMBAR SERVICES INTERVERT PSC DISC W/O MYELOPATHY 09454 SPINAL STEN 01-14-2008 [facility] LUMB REG SERVICES W/O PSC NEUROGENIC CLAUDICATIO N 06270 SCOLIOSIS , 01-14-2008 [facility] IDIOPATHIC SERVICES PSC 7246 DISORDERS 12-25-2007 [facility] OF SACRUM SERVICES PSC 7245 UNSPECIFIED 12-21-2007 [facility] BACKACHE IMAGING PSC 80791 ABDOMINAL 12-21-2007 [facility] PAIN OTHER REGIONAL SPECIFIED MEDICAL SITE CENT 3970 DISEASES OF 11-18-2007 [place], TRICUSPID ZE C VALVE 37583 PRIMARY LOC 11-13-2007 [facility] OSTEOARTHRO MEDICAL SIS PELVIC CENT REGION&THIG H 84489 PRIMARY 11-13-2007 [facility] LOCALIZED REGIONAL OSTEOARTHRO MEDICAL SIS LOWER CENT LEG 7176 LOOSE BODY 11-13-2007 [facility] 58937 DISORDER OF 11-13-2007 [facility] BONE AND IMAGING PSC CARTILAGE UNSPECIFIED 2818 ANEMIA 09-26-2007 [facility] W/OTHER PLLC SPEC NUTRITIONAL DEFIC 4778 ALLERGIC 09-26-2007 [facility] DUE TO PLLC OTHER ALLERGEN 54961 UNSPECIFIED 09-26-2007 [facility] ABSCESS OF FINGER 82769 NOCTURIA 09-26-2007 [facility] 01639 VOMITING 09-13-2007 [facility] PHYSICIAN INC 73891 OSTEOARTHRO 09-04-2007 [facility] S UNSPEC NEPHROLOGY WHETHER CONSULTANTS GEN/LOC UNSPEC SITE 19529 ELEVATED 09-04-2007 [facility] PROSTATE NEPHROLOGY SPECIFIC CONSULTANTS ANTIGEN 29016 UNSPECIFIED 06-24-2007 [facility] 79188 LOSS OF 06-24-2007 [place] CENT 03342 URINARY 06-24-2007 [facility] MED[facility] V7644 SPECIAL 06-24-2007 [facility] MEDICAL NEOPLASM OF [facility] PROSTATE 4779 ALLERGIC 10-31-2006 [facility] CA[facility] UNSPECIFIED Medications Na ND Rx Da Fi Fi Am Da Di Ph RX Ph St me C No te ll ll ou ys ag ar # ys at rm s nt no ma ic us Or Da si cy ia de te s n re d 00 08 11 0 30 30 ME 15 GA Ac PI 90 -3 -2 0. D 31 IN ti RI 46 1- 0- 00 CA 53 EY ve N 28 20 20 0 RE 70 81 88 17 17 [place] 9 PH CH MG AR AE MA L CH CY S EW AB LL LE C TA BL ET 00 08 11 0 30 30 ME 15 GA Ac TA 53 -3 -1 0. D 28 IN ti WY 63 1- 5- 00 CA 72 EY ve N 79 20 20 0 RE 37 D3 00 17 17 [place] 1 PH CH 2, AR AE 00 MA L 0 CY S UN IT LL C SO FT GE L TA 00 08 11 0 30 30 ME 15 GA Ac B- 90 -3 -1 0. D 28 IN ti A- 40 1- 5- 00 CA 72 EY ve 53 20 20 0 RE 36 TE 08 17 17 [place] 0 PH CH TA AR AE BL MA L ET CY S LL C FE 00 08 11 0 30 30 ME 15 GA Ac RR 53 -3 -1 0. D 28 IN ti OU 61 1- 5- 00 CA 72 EY ve S 00 20 20 0 RE 35 CLARK 90 17 17 WY LF 1 PH CH AT AR AE E MA L 32 CY S 5 MG LL C TA BL ET LO 00 08 11 0 30 30 ME 15 GA Ac RA 78 -3 -0 0. D 23 IN ti TA 15 1- 4- 00 CA 05 EY ve DI 07 20 20 0 RE 03 NE 70 17 17 W[place] 1 PH CH 10 AR AE MA L MG CY S TA LL BL C ET SE 00 08 10 0 12 30 ME 15 GA Ac NN 90 -3 -2 00 D 18 IN ti A- 46 1- 7- .0 CA 77 EY ve LA 52 20 20 00 RE 76 X 26 17 17 [place] 8. 1 PH CH 6 AR AE MG MA L CY S TA BL LL ET C 00 08 10 0 30 30 ME 15 GA Ac TA 90 -3 -2 0. D 18 IN ti WY 40 - 7 CA 77 EY ve N 52 20 20 0 RE 74 C 38 17 17 W[place] 50 0 PH CH 0 AR AE MG MA L CY S TA BL LL ET C ST 00 08 10 0 30 30 ME 15 GA Ac OO 53 -3 -2 0. D 18 IN ti L 61 - 7 CA 77 EY ve SO 06 20 20 0 RE 75 FT 41 17 17 WY EN 0 PH CH ER AR AE MA L 25 CY S 0 MG LL C SO FT GE L 00 08 10 0 30 30 ME 15 GA Ac PI 90 -3 -2 0. D 16 IN ti RI 46 1- 3- 00 CA 98 EY ve N 28 20 20 0 RE 63 81 88 17 17 [place] 9 PH CH MG AR AE MA L CH CY S EW AB LL LE C TA BL ET 00 08 10 0 30 30 ME 15 GA Ac TA 53 -3 -1 0. D 12 IN ti WY 63 - 6 CA 12 EY ve N 79 20 20 0 RE 14 D3 00 17 17 [place] 1 PH CH 2, AR AE 00 MA L 0 CY S UN IT LL C SO FT GE L FE 00 08 10 0 30 30 ME 15 GA Ac RR 53 -3 -1 0. D 12 IN ti OU 61 1- 6- 00 CA 12 EY ve S 00 20 20 0 RE 10 CLARK 90 17 17 WY LF 1 PH CH AT AR AE E MA L 32 CY S 5 MG LL C TA BL ET TA 00 08 10 0 30 30 ME 15 GA Ac B- 90 -3 -1 0. D 12 IN ti A- 40 1- 6 CA 12 EY ve 53 20 20 0 RE 11 TE 08 17 17 WY 0 PH CH TA AR AE BL MA L ET CY S LL C LO 00 08 10 0 30 30 ME 15 GA Ac RA 78 -3 -0 0. D 07 IN ti TA 15 1- 6- 00 CA 11 EY ve DI 07 20 20 0 RE 54 NE 70 17 17 WY 1 PH CH 10 AR AE MA L MG CY S TA LL BL C ET 00 08 09 0 30 30 ME 14 GA Ac PI 90 -3 -2 0. D 87 IN ti RI 46 1- 7- 00 CA 57 EY ve N 28 20 20 0 RE 76 81 88 17 17 WY 9 PH CH MG AR AE MA L CH CY S EW AB LL LE C TA BL ET ST 00 08 09 0 30 30 ME 14 GA Ac OO 53 -3 -2 0. D 87 IN ti L 61 1- 7- 00 CA 57 EY ve SO 06 20 20 0 RE 82 FT 41 17 17 WY EN 0 PH CH ER AR AE MA L 25 CY S 0 MG LL C SO FT GE L SE 00 08 09 0 12 30 ME 14 GA Ac NN 90 -3 -2 00 D 87 IN ti A- 46 1- 7- .0 CA 57 EY ve LA 52 20 20 00 RE 99 X 26 17 17 [place] 8. 1 PH CH 6 AR AE MG MA L CY S TA BL LL ET C 00 08 09 0 13 13 ME 14 GA Ac TA 90 -3 -2 0. D 87 IN ti WY 40 1- 7- 00 CA 57 EY ve N 52 20 20 0 RE 80 C 38 17 17 WY 50 0 PH CH 0 AR AE MG MA L CY S TA BL LL ET C EN 00 09 09 0 13 1 ME 14 GA Ac EM 53 -1 -1 30 D 97 IN ti A 67 8- 8- .0 CA 43 EY ve 41 20 20 00 RE 40 55 17 17 [place] 1 PH CH AR AE MA L CY S LL C TA 00 08 09 0 30 30 ME 14 GA Ac B- 90 -3 -1 0. D 87 IN ti A- 40 1- 8- 00 CA 57 EY ve 53 20 20 0 RE 93 TE 08 17 17 WY 0 PH CH TA AR AE BL MA L ET CY S LL C RO 00 08 09 0 15 30 ME 14 GA Ac BA 90 -3 -1 00 D 87 IN ti FE 40 1- 8- .0 CA 57 EY ve N- 05 20 20 00 RE 97 DM 31 17 17 W[place] 6 PH CH SY AR AE RU MA L P CY S LL C FE 00 08 09 0 30 30 ME 14 GA Ac RR 53 -3 -1 0. D 87 IN ti OU 61 1- 8- 00 CA 57 EY ve S 00 20 20 0 RE 84 CLARK 90 17 17 WY LF 1 PH CH AT AR AE E MA L 32 CY S 5 MG LL C TA BL ET 00 08 09 0 30 30 ME 14 GA Ac TA 53 -3 -1 0. D 97 IN ti WY 63 1- 8- 00 CA 42 EY ve N 79 20 20 0 RE 76 D3 00 17 17 [place] 1 PH CH 2, AR AE 00 MA L 0 CY S UN IT LL C SO FT GE L LO 00 08 09 0 30 30 ME 14 GA Ac RA 78 -3 -0 0. D 87 IN ti TA 15 1- 8- 00 CA 57 EY ve DI 07 20 20 0 RE 87 NE 70 17 17 WY 1 PH CH 10 AR AE MA L MG CY S TA LL BL C ET 00 08 08 0 30 30 ME 14 GA Ac TA 90 -2 -2 0. D 83 IN ti WY 40 5- 5- 00 CA 93 EY ve N 52 20 20 0 RE 36 C 38 17 17 WY 50 0 PH CH 0 AR AE MG MA L CY S TA BL LL ET C 00 06 08 0 30 30 ME 14 GA Ac PI 90 -2 -2 0. D 81 IN ti RI 46 0- 1- 00 CA 39 EY ve N 28 20 20 0 RE 76 81 88 17 17 WY 9 PH CH MG AR AE MA L CH CY S EW AB LL LE C TA BL ET 00 06 08 0 30 30 ME 14 GA Ac TA 53 -2 -1 0. D 78 IN ti WY 63 0- 8- 00 CA 56 EY ve N 79 20 20 0 RE 78 D3 00 17 17 [place] 1 PH CH 2, AR AE 00 MA L 0 CY S UN IT LL C SO FT GE L BI 00 06 08 0 15 30 ME 14 GA Ac SC 90 -2 -1 0. D 44 IN ti OL 45 0- 8- 00 CA 02 EY ve AX 05 20 20 0 RE 06 81 17 17 WY 10 2 PH CH AR AE MG MA L CY S CLARK PP LL OS C IT OR Y ST 00 06 08 0 30 30 ME 14 GA Ac OO 53 -2 -1 0. D 77 IN ti L 61 0- 7- 00 CA 70 EY ve SO 06 20 20 0 RE 49 FT 41 17 17 WY EN 0 PH CH ER AR AE MA L 25 CY S 0 MG LL C SO FT GE L FE 00 06 08 0 30 30 ME 14 GA Ac RR 53 -2 -1 0. D 77 IN ti OU 61 0- 7- 00 CA 70 EY ve S 00 20 20 0 RE 48 CLARK 90 17 17 WY LF 1 PH CH AT AR AE E MA L 32 CY S 5 MG LL C TA BL ET SE 00 06 08 0 12 30 ME 14 GA Ac NN 90 -2 -1 00 D 77 IN ti A- 46 0- 7- .0 CA 70 EY ve LA 52 20 20 00 RE 50 X 26 17 17 WY 8. 1 PH CH 6 AR AE MG MA L CY S TA BL LL ET C TA 00 06 08 0 30 30 ME 14 GA Ac B- 90 -2 -1 0. D 76 IN ti A- 40 0- 4- 00 CA 87 EY ve 53 20 20 0 RE 37 TE 08 17 17 WY 0 PH CH TA AR AE BL MA L ET CY S LL C LO 00 06 08 0 30 30 ME 14 GA Ac RA 78 -2 -1 0. D 74 IN ti TA 15 0- 2- 00 CA 04 EY ve DI 07 20 20 0 RE 56 NE 70 17 17 WY 1 PH CH 10 AR AE MA L MG CY S TA LL BL C ET RO 00 06 08 0 15 30 ME 14 GA Ac BA 90 -2 -0 00 D 74 IN ti FE 40 0- 9- .0 CA 72 EY ve N- 05 20 20 00 RE 35 DM 31 17 17 WY 6 PH CH SY AR AE RU MA L P CY S LL C LO 00 06 07 0 30 30 ME 14 GA Ac RA 78 -2 -1 0. D 60 IN ti TA 15 0- 8- 00 CA 24 EY ve DI 07 20 20 0 RE 58 NE 70 17 17 WY 1 PH CH 10 AR AE MA L MG CY S TA LL BL C ET ST 00 06 07 0 30 30 ME 14 GA Ac OO 53 -2 -1 0. D 60 IN ti L 61 0- 8- 00 CA 24 EY ve SO 06 20 20 0 RE 57 FT 41 17 17 WY EN 0 PH CH ER AR AE MA L 25 CY S 0 MG LL C SO FT GE L FE 00 06 07 0 30 30 ME 14 GA Ac RR 53 -2 -1 0. D 60 IN ti OU 61 0- 8- 00 CA 24 EY ve S 00 20 20 0 RE 56 CLARK 90 17 17 WY LF 1 PH CH AT AR AE E MA L 32 CY S 5 MG LL C TA BL ET SE 00 06 07 0 12 30 ME 14 GA Ac NN 90 -2 -1 00 D 60 IN ti A- 46 0- 8- .0 CA 24 EY ve LA 52 20 20 00 RE 60 X 26 17 17 WY 8. 1 PH CH 6 AR AE MG MA L CY S TA BL LL ET C 00 06 07 0 30 30 ME 14 GA Ac PI 90 -2 -1 0. D 60 IN ti RI 46 0- 8- 00 CA 24 EY ve N 28 20 20 0 RE 55 81 88 17 17 WY 9 PH CH MG AR AE MA L CH CY S EW AB LL LE C TA BL ET TA 00 06 07 0 30 30 ME 14 GA Ac B- 90 -2 -1 0. D 60 IN ti A- 40 0- 8- 00 CA 24 EY ve 53 20 20 0 RE 59 TE 08 17 17 WY 0 PH CH TA AR AE BL MA L ET CY S LL C LO 00 06 06 0 30 30 ME 14 GA Ac RA 78 -2 -2 0. D 44 IN ti TA 15 0- 0- 00 CA 01 EY ve DI 07 20 20 0 RE 85 NE 70 17 17 WY 1 PH CH 10 AR AE MA L MG CY S TA LL BL C ET TA 00 06 06 0 30 30 ME 14 GA Ac B- 90 -2 -2 0. D 44 IN ti A- 40 0- 0- 00 CA 01 EY ve 53 20 20 0 RE 86 TE 08 17 17 WY 0 PH CH TA AR AE BL MA L ET CY S LL C 00 06 06 0 30 30 ME 14 GA Ac TA 53 -2 -2 0. D 44 IN ti WY 63 0- 0- 00 CA 02 EY ve N 79 20 20 0 RE 04 D3 00 17 17 WY 1 PH CH 2, AR AE 00 MA L 0 CY S UN IT LL C SO FT GE L RO 00 06 06 0 15 30 ME 14 GA Ac BA 90 -2 -2 00 D 44 IN ti FE 40 0- 0- .0 CA 02 EY ve N- 05 20 20 00 RE 15 DM 31 17 17 WY 6 PH CH SY AR AE RU MA L P CY S LL C 00 06 06 0 30 30 ME 14 GA Ac PI 90 -2 -2 0. D 44 IN ti RI 46 0- 0- 00 CA 01 EY ve N 28 20 20 0 RE 76 81 88 17 17 WY 9 PH CH MG AR AE MA L CH CY S EW AB LL LE C TA BL ET FE 00 06 06 0 30 30 ME 14 GA Ac RR 53 -2 -2 0. D 44 IN ti OU 61 0- 0- 00 CA 01 EY ve S 00 20 20 0 RE 81 CLARK 90 17 17 WY LF 1 PH CH AT AR AE E MA L 32 CY S 5 MG LL C TA BL ET SE 00 06 06 0 12 30 ME 14 GA Ac NN 90 -2 -2 00 D 44 IN ti A- 46 0- 0- .0 CA 02 EY ve LA 52 20 20 00 RE 03 X 26 17 17 WY 8. 1 PH CH 6 AR AE MG MA L CY S TA BL LL ET C MA 00 06 06 0 60 30 ME 14 GA Ac PA 90 -2 -2 0. D 44 IN ti P 41 0- 0- 00 CA 02 EY ve 50 98 20 20 0 RE 05 0 86 17 17 WY MG 1 PH CH AR AE TA MA L BL CY S ET LL C ST 00 06 06 0 30 30 ME 14 GA Ac OO 53 -2 -2 0. D 44 IN ti L 61 0- 0- 00 CA 01 EY ve SO 06 20 20 0 RE 83 FT 41 17 17 WY EN 0 PH CH ER AR AE MA L 25 CY S 0 MG LL C SO FT GE L BI 00 05 06 0 12 12 ME 14 GA Ac SC 90 -2 -1 0. D 26 IN ti OL 45 6- 2- 00 CA 89 EY ve AX 05 20 20 0 RE 53 81 17 17 WY 10 2 PH CH AR AE MG MA L CY S CLARK PP LL OS C IT OR Y LO 00 03 05 0 30 30 ME 14 GA Ac RA 78 -1 -1 0. D 21 IN ti TA 15 9- 9- 00 CA 63 EY ve DI 07 20 20 0 RE 53 NE 70 17 17 WY 1 PH CH 10 AR AE MA L MG CY S TA LL BL C ET SE 00 03 05 0 12 30 ME 14 GA Ac NN 90 -1 -1 00 D 19 IN ti A- 46 9- 6- .0 CA 54 EY ve LA 52 20 20 00 RE 69 X 26 17 17 WY 8. 1 PH CH 6 AR AE MG MA L CY S TA BL LL ET C 00 03 05 0 30 30 ME 14 GA Ac TA 90 -1 -1 0. D 19 IN ti WY 45 9- 5- 00 CA 90 EY ve N 04 20 20 0 RE 88 AN 26 17 17 WY D 0 PH CH WY AR AE NE MA L RA CY S LS LL TA C BL ET ST 00 02 05 0 30 30 ME 14 GA Ac OO 53 -2 -1 0. D 18 IN ti L 61 3- 2- 00 CA 24 EY ve SO 06 20 20 0 RE 76 FT 41 17 17 WY EN 0 PH CH ER AR AE MA L 25 CY S 0 MG LL C SO FT GE L 00 03 05 0 30 30 ME 14 GA Ac TA 53 -1 -1 0. D 18 IN ti WY 63 9- 2- 00 CA 24 EY ve N 79 20 20 0 RE 82 D3 00 17 17 WY 1 PH CH 2, AR AE 00 MA L 0 CY S UN IT LL C SO FT GE L 00 03 05 0 30 30 ME 14 GA Ac PI 53 -1 -1 0. D 18 IN ti RI 61 9- 2- 00 CA 24 EY ve N 00 20 20 0 RE 73 EC 44 17 17 WY 1 PH CH 81 AR AE MA L MG CY S TA LL BL C ET BI 00 05 05 0 15 15 ME 14 GA Ac SC 90 -1 -1 0. D 18 IN ti OL 45 0- 0- 00 CA 07 EY ve AX 05 20 20 0 RE 34 81 17 17 WY 10 2 PH CH AR AE MG MA L CY S CLARK PP LL OS C IT OR Y FE 00 03 05 0 30 30 ME 14 GA Ac RR 53 -1 -0 0. D 14 IN ti OU 61 9- 5- 00 CA 67 EY ve S 00 20 20 0 RE 52 CLARK 90 17 17 WY LF 1 PH CH AT AR AE E MA L 32 CY S 5 MG LL C TA BL ET RO 00 04 05 0 15 30 ME 14 GA Ac BA 90 -0 -0 00 D 10 IN ti FE 40 7- 5- .0 CA 68 EY ve N- 05 20 20 00 RE 31 DM 31 17 17 WY 6 PH CH SY AR AE RU MA L P CY S LL C LO 45 03 04 0 30 30 ME 14 GA Ac RA 80 -1 -2 0. D 06 IN ti TA 20 9- 0- 00 CA 95 EY ve DI 65 20 20 0 RE 55 NE 08 17 17 WY 7 PH CH 10 AR AE MA L MG CY S TA LL BL C ET SE 00 03 04 0 12 30 ME 14 GA Ac NN 90 -1 -1 00 D 05 IN ti A- 46 9- 7- .0 CA 07 EY ve LA 52 20 20 00 RE 52 X 26 17 17 WY 8. 1 PH CH 6 AR AE MG MA L CY S TA BL LL ET C ST 00 02 04 0 30 30 ME 14 GA Ac OO 53 -2 -1 0. D 03 IN ti L 61 3- 3- 00 CA 60 EY ve SO 06 20 20 0 RE 86 FT 41 17 17 WY EN 0 PH CH ER AR AE MA L 25 CY S 0 MG LL C SO FT GE L 00 03 04 0 30 30 ME 14 GA Ac PI 53 -1 -1 0. D 03 IN ti RI 61 9- 3- 00 CA 60 EY ve N 00 20 20 0 RE 85 EC 44 17 17 WY 1 PH CH 81 AR AE MA L MG CY S TA LL BL C ET 00 03 04 0 30 30 ME 14 GA Ac TA 53 -1 -1 0. D 03 IN ti WY 63 9- 3- 00 CA 60 EY ve N 79 20 20 0 RE 88 D3 00 17 17 WY 1 PH CH 2, AR AE 00 MA L 0 CY S UN IT LL C SO FT GE L 00 03 04 0 30 30 ME 14 GA Ac TA 90 -1 -0 0. D 00 IN ti WY 45 9- 7- 00 CA 93 EY ve N 04 20 20 0 RE 00 AN 26 17 17 WY D 0 PH CH WY AR AE NE MA L RA CY S LS LL TA C BL ET FE 00 03 04 0 30 30 ME 14 GA Ac RR 53 -1 -0 0. D 00 IN ti OU 61 9- 7- 00 CA 92 EY ve S 00 20 20 0 RE 98 CLARK 90 17 17 WY LF 1 PH CH AT AR AE E MA L 32 CY S 5 MG LL C TA BL ET RO 00 04 04 0 15 30 ME 14 GA Ac BA 90 -0 -0 00 D 02 IN ti FE 40 7- 7- .0 CA 15 EY ve N- 05 20 20 00 RE 12 DM 31 17 17 WY 6 PH CH SY AR AE RU MA L P CY S LL C SP 00 02 03 0 30 15 ME 13 GA Ac IR 60 -0 -3 0. D 96 IN ti ON 35 2- 0- 00 CA 66 EY ve OL 76 20 20 0 RE 65 AC 32 17 17 WY TO 1 PH CH NE AR AE MA L 25 CY S MG LL C TA BL ET LO 00 03 03 0 30 30 ME 13 GA Ac RA 78 -1 -2 0. D 92 IN ti TA 15 9- 2- 00 CA 57 EY ve DI 07 20 20 0 RE 96 NE 70 17 17 WY 1 PH CH 10 AR AE MA L MG CY S TA LL BL C ET SE 00 03 03 0 12 30 ME 13 GA Ac NN 90 -1 -2 00 D 92 IN ti A- 46 9- 0- .0 CA 14 EY ve LA 52 20 20 00 RE 20 X 26 17 17 WY 8. 1 PH CH 6 AR AE MG MA L CY S TA BL LL ET C 00 07 03 0 30 30 ME 13 GA Ac TA 53 -2 -1 0. D 89 IN ti WY 63 5- 5- 00 CA 20 EY ve N 79 20 20 0 RE 80 D3 00 16 17 WY 1 PH CH 2, AR AE 00 MA L 0 CY S UN IT LL C SO FT GE L 00 09 03 0 30 30 ME 13 GA Ac PI 53 -1 -1 0. D 89 IN ti RI 61 9- 5- 00 CA 20 EY ve N 00 20 20 0 RE 76 EC 44 16 17 WY 1 PH CH 81 AR AE MA L MG CY S TA LL BL C ET ST 00 02 03 0 30 30 ME 13 GA Ac OO 53 -2 -1 0. D 89 IN ti L 61 3- 5- 00 CA 95 EY ve SO 06 20 20 0 RE 95 FT 41 17 17 WY EN 0 PH CH ER AR AE MA L 25 CY S 0 MG LL C SO FT GE L FE 00 09 03 0 30 30 ME 13 GA Ac RR 53 -1 -1 0. D 86 IN ti OU 61 9- 0- 00 CA 96 EY ve S 00 20 20 0 RE 49 CLARK 90 16 17 WY LF 1 PH CH AT AR AE E MA L 32 CY S 5 MG LL C TA BL ET 00 06 03 0 30 30 ME 13 GA Ac TA 90 -1 -1 0. D 86 IN ti WY 45 0- 0- 00 CA 96 EY ve N 04 20 20 0 RE 51 AN 26 16 17 WY D 0 PH CH WY AR AE NE MA L RA CY S LS LL TA C BL ET LO 00 09 02 0 30 30 ME 13 GA Ac RA 78 -0 -2 0. D 77 IN ti TA 15 1- 1- 00 CA 64 EY ve DI 07 20 20 0 RE 76 NE 70 16 17 WY 1 PH CH 10 AR AE MA L MG CY S TA LL BL C ET 00 07 02 0 30 30 ME 13 GA Ac TA 53 -2 -1 0. D 74 IN ti WY 63 5- 4- 00 CA 04 EY ve N 79 20 20 0 RE 52 D3 00 16 17 WY 1 PH CH 2, AR AE 00 MA L 0 CY S UN IT LL C SO FT GE L 00 09 02 0 30 30 ME 13 GA Ac PI 53 -1 -1 0. D 74 IN ti RI 61 9- 4- 00 CA 04 EY ve N 00 20 20 0 RE 51 EC 44 16 17 WY 1 PH CH 81 AR AE MA L MG CY S TA LL BL C ET ST 00 02 02 0 30 30 ME 13 GA Ac OO 53 -2 -1 0. D 73 IN ti L 61 3- 3- 00 CA 36 EY ve SO 06 20 20 0 RE 84 FT 41 16 17 WY EN 0 PH CH ER AR AE MA L 25 CY S 0 MG LL C SO FT GE L 00 06 02 0 30 30 ME 13 GA Ac TA 90 -1 -1 0. D 72 IN ti WY 45 0- 0- 00 CA 74 EY ve N 04 20 20 0 RE 29 AN 26 16 17 WY D 0 PH CH WY AR AE NE MA L RA CY S LS LL TA C BL ET FE 00 09 02 0 30 30 ME 13 GA Ac RR 90 -1 -0 0. D 72 IN ti OU 47 9- 9- 00 CA 08 EY ve S 59 20 20 0 RE 92 CLARK 18 16 17 WY LF 0 PH CH AT AR AE E MA L 32 CY S 5 MG LL C TA BL ET SE 00 09 02 0 12 30 ME 13 GA Ac NN 90 -1 -0 00 D 71 IN ti A 46 9- 7- .0 CA 32 EY ve 8. 43 20 20 00 RE 82 6 48 16 17 WY MG 0 PH CH AR AE TA MA L BL CY S ET LL C BI 00 09 02 0 15 15 ME 13 GA Ac SC 90 -1 -0 0. D 70 IN ti OL 45 9- 6- 00 CA 96 EY ve AX 05 20 20 0 RE 91 81 16 17 WY 10 2 PH CH AR AE MG MA L CY S CLARK PP LL OS C IT OR Y LO 00 09 01 0 30 30 ME 13 GA Ac RA 78 -0 -2 0. D 63 IN ti TA 15 1- 3- 00 CA 50 EY ve DI 07 20 20 0 RE 87 NE 70 16 17 WY 1 PH CH 10 AR AE MA L MG CY S TA LL BL C ET 00 09 01 0 30 30 ME 13 GA Ac PI 53 -1 -1 0. D 59 IN ti RI 61 9- 6- 00 CA 87 EY ve N 00 20 20 0 RE 11 EC 44 16 17 WY 1 PH CH 81 AR AE MA L MG CY S TA LL BL C ET 00 07 01 0 30 30 ME 13 GA Ac TA 53 -2 -1 0. D 59 IN ti WY 63 5- 6- 00 CA 87 EY ve N 79 20 20 0 RE 12 D3 00 16 17 WY 1 PH CH 2, AR AE 00 MA L 0 CY S UN IT LL C SO FT GE L ST 00 02 01 0 30 30 ME 13 GA Ac OO 53 -2 -1 0. D 59 IN ti L 61 3- 4- 00 CA 46 EY ve SO 06 20 20 0 RE 94 FT 41 16 17 WY EN 0 PH CH ER AR AE MA L 25 CY S 0 MG LL C SO FT GE L 00 06 01 0 30 30 ME 13 GA Ac TA 90 -1 -1 0. D 59 IN ti WY 45 0- 3- 00 CA 03 EY ve N 04 20 20 0 RE 67 AN 26 16 17 WY D 0 PH CH WY AR AE NE MA L RA CY S LS LL TA C BL ET SE 00 09 01 0 12 30 ME 13 GA Ac NN 90 -1 -1 00 D 58 IN ti A- 46 9- 2- .0 CA 61 EY ve LA 52 20 20 00 RE 97 X 26 16 17 WY 8. 1 PH CH 6 AR AE MG MA L CY S TA BL LL ET C FE 00 09 01 0 30 30 ME 13 GA Ac RR 53 -1 -1 0. D 57 IN ti OU 61 9- 1- 00 CA 54 EY ve S 00 20 20 0 RE 83 CLARK 90 16 17 WY LF 1 PH CH AT AR AE E MA L 32 CY S 5 MG LL C TA BL ET 00 12 01 0 10 1 ME 13 GA Ac TA 90 -1 -1 .0 D 58 IN ti WY 40 5- 0- 00 CA 30 EY ve N 52 20 20 RE 23 C 38 16 17 WY 50 0 PH CH 0 AR AE MG MA L CY S TA BL LL ET C ZI 00 12 12 0 10 1 ME 13 GA Ac NC 90 -1 -3 .0 D 53 IN ti 43 7- 0- 00 CA 28 EY ve GL 19 20 20 RE 54 UC 16 16 16 WY ON 0 PH CH AT AR AE E MA L 50 CY S MG LL C TA BL ET LO 00 09 12 0 30 30 ME 13 GA Ac RA 78 -0 -2 0. D 50 IN ti TA 15 1- 6- 00 CA 21 EY ve DI 07 20 20 0 RE 30 NE 70 16 16 WY 1 PH CH 10 AR AE MA L MG CY S TA LL BL C ET 00 09 12 0 30 30 ME 13 GA Ac PI 53 -1 -1 0. D 45 IN ti RI 61 9- 7- 00 CA 89 EY ve N 00 20 20 0 RE 61 EC 44 16 16 WY 1 PH CH 81 AR AE MA L MG CY S TA LL BL C ET 00 07 12 0 30 30 ME 13 GA Ac TA 53 -2 -1 0. D 45 IN ti WY 63 5- 7- 00 CA 89 EY ve N 79 20 20 0 RE 62 D3 00 16 16 WY 1 PH CH 2, AR AE 00 MA L 0 CY S UN IT LL C SO FT GE L ZI 00 12 12 0 14 14 ME 13 GA Ac NC 90 -1 -1 0. D 46 IN ti 43 7- 7- 00 CA 89 EY ve GL 19 20 20 0 RE 55 UC 16 16 16 WY ON 0 PH CH AT AR AE E MA L 50 CY S MG LL C TA BL ET ST 00 02 12 0 30 30 ME 13 GA Ac OO 53 -2 -1 0. D 45 IN ti L 61 3- 6- 00 CA 28 EY ve SO 06 20 20 0 RE 42 FT 41 16 16 WY EN 0 PH CH ER AR AE MA L 25 CY S 0 MG LL C SO FT GE L 00 12 12 0 30 30 ME 13 GA Ac TA 90 -1 -1 0. D 45 IN ti WY 40 5- 5- 00 CA 69 EY ve N 52 20 20 0 RE 93 C 38 16 16 WY 50 0 PH CH 0 AR AE MG MA L CY S TA BL LL ET C SE 00 09 12 0 12 30 ME 13 GA Ac NN 90 -1 -1 00 D 46 IN ti A- 46 9- 5- .0 CA 00 EY ve LA 52 20 20 00 RE 68 X 26 16 16 WY 8. 1 PH CH 6 AR AE MG MA L CY S TA BL LL ET C 00 06 12 0 30 30 ME 13 GA Ac TA 90 -1 -1 0. D 44 IN ti WY 45 0- 4- 00 CA 20 EY ve N 04 20 20 0 RE 08 AN 26 16 16 WY D 0 PH CH WY AR AE NE MA L RA CY S LS LL TA C BL ET FE 00 09 12 0 30 30 ME 13 GA Ac RR 53 -1 -1 0. D 44 IN ti OU 61 9- 4- 00 CA 97 EY ve S 00 20 20 0 RE 74 CLARK 90 16 16 WY LF 1 PH CH AT AR AE E MA L 32 CY S 5 MG LL C TA BL ET LO 00 09 11 0 30 30 ME 13 GA Ac RA 78 -0 -2 0. D 35 IN ti TA 15 1- 8- 00 CA 75 EY ve DI 07 20 20 0 RE 27 NE 70 16 16 WY 1 PH CH 10 AR AE MA L MG CY S TA LL BL C ET BA 00 11 11 0 28 7 ME 13 GA Ac CI 16 -1 -2 3. D 36 IN ti TR 80 7- 6- 50 CA 23 EY ve AC 02 20 20 0 RE 22 IN 13 16 16 WY -P 1 PH CH OL AR AE YM MA L YX CY S IN LL OI C NT ME NT SE 00 09 11 0 12 30 ME 13 GA Ac NN 90 -1 -2 00 D 32 IN ti A- 46 9- 1- .0 CA 02 EY ve LA 52 20 20 00 RE 30 X 26 16 16 WY 8. 1 PH CH 6 AR AE MG MA L CY S TA BL LL ET C 00 09 11 0 30 30 ME 13 GA Ac PI 53 -1 -1 0. D 30 IN ti RI 61 9- 8- 00 CA 83 EY ve N 00 20 20 0 RE 45 EC 44 16 16 WY 1 PH CH 81 AR AE MA L MG CY S TA LL BL C ET FE 00 09 11 0 30 30 ME 13 GA Ac RR 53 -1 -1 0. D 30 IN ti OU 61 9- 8- 00 CA 83 EY ve S 00 20 20 0 RE 46 CLARK 90 16 16 WY LF 1 PH CH AT AR AE E MA L 32 CY S 5 MG LL C TA BL ET 00 07 11 0 30 30 ME 13 GA Ac TA 53 -2 -1 0. D 30 IN ti WY 63 5- 8- 00 CA 83 EY ve N 79 20 20 0 RE 49 D3 00 16 16 WY 1 PH CH 2, AR AE 00 MA L 0 CY S UN IT LL C SO FT GE L BA 00 11 11 0 28 14 ME 13 GA Ac CI 16 -1 -1 3. D 31 IN ti TR 80 7- 7- 50 CA 32 EY ve AC 02 20 20 0 RE 58 IN 13 16 16 WY -P 1 PH CH OL AR AE YM MA L YX CY S IN LL OI C NT ME NT ST 00 02 11 0 30 30 ME 13 GA Ac OO 53 -2 -1 0. D 29 IN ti L 61 3- 7- 00 CA 93 EY ve SO 06 20 20 0 RE 73 FT 41 16 16 WY EN 0 PH CH ER AR AE MA L 25 CY S 0 MG LL C SO FT GE L 00 06 11 0 30 30 ME 13 GA Ac TA 90 -1 -1 0. D 27 IN ti WY 45 0- 4- 00 CA 96 EY ve N 04 20 20 0 RE 19 AN 26 16 16 WY D 0 PH CH WY AR AE NE MA L RA CY S LS LL TA C BL ET LO 00 09 10 0 30 30 ME 13 GA Ac RA 78 -0 -2 0. D 19 IN ti TA 15 1- 8- 00 CA 67 EY ve DI 07 20 20 0 RE 75 NE 70 16 16 WY 1 PH CH 10 AR AE MA L MG CY S TA LL BL C ET SE 00 09 10 0 12 30 ME 13 GA Ac NN 90 -1 -2 00 D 16 IN ti A- 46 9- 2- .0 CA 73 EY ve LA 52 20 20 00 RE 99 X 26 16 16 WY 8. 1 PH CH 6 AR AE MG MA L CY S TA BL LL ET C 00 07 10 0 30 30 ME 13 GA Ac TA 53 -2 -2 0. D 16 IN ti WY 63 5- 1- 00 CA 09 EY ve N 79 20 20 0 RE 46 D3 00 16 16 WY 1 PH CH 2, AR AE 00 MA L 0 CY S UN IT LL C SO FT GE L 00 09 10 0 30 30 ME 13 GA Ac PI 53 -1 -2 0. D 15 IN ti RI 61 9- 0- 00 CA 55 EY ve N 00 20 20 0 RE 55 EC 44 16 16 WY 1 PH CH 81 AR AE MA L MG CY S TA LL BL C ET FE 00 09 10 0 30 30 ME 13 GA Ac RR 53 -1 -2 0. D 15 IN ti OU 61 9- 0- 00 CA 55 EY ve S 00 20 20 0 RE 56 CLARK 90 16 16 WY LF 1 PH CH AT AR AE E MA L 32 CY S 5 MG LL C TA BL ET ST 00 02 10 0 30 30 ME 13 GA Ac OO 53 -2 -1 0. D 14 IN ti L 61 3- 9- 00 CA 82 EY ve SO 06 20 20 0 RE 28 FT 41 16 16 WY EN 0 PH CH ER AR AE MA L 25 CY S 0 MG LL C SO FT GE L 00 11 10 0 30 30 ME 13 GA Ac TA 90 -0 -1 0. D 13 IN ti WY 45 5- 5- 00 CA 15 EY ve N 04 20 20 0 RE 57 AN 26 15 16 WY D 0 PH CH WY AR AE NE MA L RA CY S LS LL TA C BL ET LO 00 09 09 0 30 30 ME 13 GA Ac RA 78 -0 -2 0. D 03 IN ti TA 15 1- 9- 00 CA 49 EY ve DI 07 20 20 0 RE 14 NE 70 16 16 WY 1 PH CH 10 AR AE MA L MG CY S TA LL BL C ET SE 00 09 09 0 12 30 ME 13 GA Ac NN 90 -1 -2 00 D 00 IN ti A- 46 9- 3- .0 CA 42 EY ve LA 52 20 20 00 RE 47 X 26 16 16 WY 8. 1 PH CH 6 AR AE MG MA L CY S TA BL LL ET C FE 00 09 09 0 30 30 ME 13 GA Ac RR 53 -1 -2 0. D 00 IN ti OU 61 9- 2- 00 CA 79 EY ve S 00 20 20 0 RE 89 CLARK 90 16 16 WY LF 1 PH CH AT AR AE E MA L 32 CY S 5 MG LL C TA BL ET 00 09 09 0 30 30 ME 13 GA Ac PI 53 -1 -2 0. D 00 IN ti RI 61 9- 2- 00 CA 79 EY ve N 00 20 20 0 RE 87 EC 44 16 16 WY 1 PH CH 81 AR AE MA L MG CY S TA LL BL C ET 00 07 09 0 30 30 ME 12 GA Ac TA 53 -2 -2 0. D 99 IN ti WY 63 5- 1- 00 CA 05 EY ve N 79 20 20 0 RE 58 D3 00 16 16 WY 1 PH CH 2, AR AE 00 MA L 0 CY S UN IT LL C SO FT GE L ST 00 02 09 0 30 30 ME 12 GA Ac OO 53 -2 -1 0. D 97 IN ti L 61 3- 9- 00 CA 85 EY ve SO 06 20 20 0 RE 93 FT 41 16 16 WY EN 0 PH CH ER AR AE MA L 25 CY S 0 MG LL C SO FT GE L 00 11 09 0 30 30 ME 12 GA Ac TA 90 -0 -1 0. D 96 IN ti WY 45 5- 6- 00 CA 80 EY ve N 04 20 20 0 RE 50 AN 26 15 16 WY D 0 PH CH WY AR AE NE MA L RA CY S LS LL TA C BL ET LO 00 09 09 0 30 30 ME 12 GA Ac RA 78 -0 -0 0. D 90 IN ti TA 15 1- 1- 00 CA 04 EY ve DI 07 20 20 0 RE 71 NE 70 16 16 WY 1 PH CH 10 AR AE MA L MG CY S TA LL BL C ET SE 00 10 08 0 12 30 ME 12 GA Ac NN 90 -2 -2 00 D 84 IN ti A- 46 9- 5- .0 CA 88 EY ve LA 52 20 20 00 RE 51 X 26 15 16 WY 8. 1 PH CH 6 AR AE MG MA L CY S TA BL LL ET C 00 07 08 0 30 30 ME 12 GA Ac TA 53 -2 -2 0. D 82 IN ti WY 63 5- 2- 00 CA 65 EY ve N 79 20 20 0 RE 09 D3 00 16 16 WY 1 PH CH 2, AR AE 00 MA L 0 CY S UN IT LL C SO FT GE L ST 00 02 08 0 30 30 ME 12 GA Ac OO 53 -2 -2 0. D 83 IN ti L 61 3- 2- 00 CA 20 EY ve SO 06 20 20 0 RE 28 FT 41 16 16 WY EN 0 PH CH ER AR AE MA L 25 CY S 0 MG LL C SO FT GE L FE 00 10 08 0 30 30 ME 12 GA Ac RR 53 -1 -2 0. D 81 IN ti OU 61 0- 0- 00 CA 18 EY ve S 00 20 20 0 RE 40 CLARK 90 15 16 WY LF 1 PH CH AT AR AE E MA L 32 CY S 5 MG LL C TA BL ET 00 11 08 0 30 30 ME 12 GA Ac TA 90 -0 -1 0. D 79 IN ti WY 45 5- 7- 00 CA 28 EY ve N 04 20 20 0 RE 11 AN 26 15 16 WY D 0 PH CH WY AR AE NE MA L RA CY S LS LL TA C BL ET 00 10 08 0 30 30 ME 12 GA Ac PI 60 -0 -1 0. D 77 IN ti RI 30 9- 5- 00 CA 97 EY ve N 02 20 20 0 RE 73 EC 63 15 16 WY 2 PH CH 81 AR AE MA L MG CY S TA LL BL C ET MA 00 10 08 0 11 14 ME 12 GA Ac PA 90 -1 -0 20 D 74 IN ti P 41 0- 5- .0 CA 68 EY ve 50 98 20 20 00 RE 78 0 86 15 16 WY MG 1 PH CH AR AE TA MA L BL CY S ET LL C 00 07 07 0 30 30 ME 12 GA Ac TA 90 -2 -2 0. D 70 IN ti WY 40 8- 8- 00 CA 32 EY ve N 52 20 20 0 RE 12 C 38 16 16 WY 50 0 PH CH 0 AR AE MG MA L CY S TA BL LL ET C SE 00 10 07 0 12 30 ME 12 GA Ac NN 90 -2 -2 00 D 68 IN ti A- 46 9- 6- .0 CA 52 EY ve LA 52 20 20 00 RE 91 X 26 15 16 WY 8. 1 PH CH 6 AR AE MG MA L CY S TA BL LL ET C 00 07 07 0 30 30 ME 12 GA Ac TA 53 -2 -2 0. D 69 IN ti WY 63 5- 5- 00 CA 13 EY ve N 79 20 20 0 RE 18 D3 00 16 16 WY 1 PH CH 2, AR AE 00 MA L 0 CY S UN IT LL C SO FT GE L FE 00 10 07 0 30 30 ME 12 GA Ac RO 90 -1 -2 0. D 67 IN ti CLARK 47 0- 2- 00 CA 26 EY ve L 59 20 20 0 RE 65 32 08 15 16 WY 5 2 PH CH MG AR AE MA L TA CY S BL ET LL C 00 11 07 0 30 30 ME 12 GA Ac TA 90 -0 -1 0. D 65 IN ti WY 45 5- 8- 00 CA 97 EY ve N 04 20 20 0 RE 60 AN 26 15 16 WY D 0 PH CH WY AR AE NE MA L RA CY S LS LL TA C BL ET BI 00 03 07 0 15 15 ME 12 GA Ac SC 90 -1 -1 0. D 66 IN ti OL 45 0- 8- 00 CA 34 EY ve AX 05 20 20 0 RE 86 86 16 16 WY 10 0 PH CH AR AE MG MA L CY S CLARK PP LL OS C IT OR Y 00 10 07 0 30 30 ME 12 GA Ac PI 60 -0 -1 0. D 65 IN ti RI 30 9- 6- 00 CA 73 EY ve N 02 20 20 0 RE 27 EC 63 15 16 WY 2 PH CH 81 AR AE MA L MG CY S TA LL BL C ET ST 00 02 07 0 30 30 ME 12 GA Ac OO 53 -2 -1 0. D 63 IN ti L 61 3- 1- 00 CA 34 EY ve SO 06 20 20 0 RE 73 FT 41 16 16 WY EN 0 PH CH ER AR AE MA L 25 CY S 0 MG LL C SO FT GE L SE 00 10 06 0 12 30 ME 12 GA Ac NN 90 -2 -2 00 D 58 IN ti A- 46 9- 7- .0 CA 07 EY ve LA 52 20 20 00 RE 66 X 26 15 16 WY 8. 1 PH CH 6 AR AE MG MA L CY S TA BL LL ET C FE 00 10 06 0 30 30 ME 12 GA Ac RO 90 -1 -2 0. D 56 IN ti CLARK 47 0- 2- 00 CA 63 EY ve L 59 20 20 0 RE 47 32 08 15 16 WY 5 2 PH CH MG AR AE MA L TA CY S BL ET LL C 00 11 06 0 30 30 ME 12 GA Ac TA 90 -0 -1 0. D 55 IN ti WY 45 5- 8- 00 CA 21 EY ve N 04 20 20 0 RE 00 AN 26 15 16 WY D 0 PH CH WY AR AE NE MA L RA CY S LS LL TA C BL ET BI 00 03 06 0 15 15 ME 12 GA Ac SC 90 -1 -1 0. D 55 IN ti OL 45 0- 7- 00 CA 42 EY ve AX 05 20 20 0 RE 04 86 16 16 WY 10 0 PH CH AR AE MG MA L CY S CLARK PP LL OS C IT OR Y 00 10 06 0 30 30 ME 12 GA Ac PI 60 -0 -1 0. D 54 IN ti RI 30 9- 7- 00 CA 90 EY ve N 02 20 20 0 RE 56 EC 63 15 16 WY 2 PH CH 81 AR AE MA L MG CY S TA LL BL C ET ST 00 02 06 0 30 30 ME 12 GA Ac OO 53 -2 -1 0. D 53 IN ti L 61 3- 3- 00 CA 62 EY ve SO 06 20 20 0 RE 57 FT 41 16 16 WY EN 0 PH CH ER AR AE MA L 25 CY S 0 MG LL C SO FT GE L SE 00 10 05 0 12 30 ME 12 GA Ac NN 90 -2 -2 00 D 48 IN ti A 45 9- 8- .0 CA 35 EY ve 8. 16 20 20 00 RE 71 6 56 15 16 WY MG 1 PH CH AR AE TA MA L BL CY S ET LL C FE 00 10 05 0 30 30 ME 12 GA Ac RO 90 -1 -2 0. D 45 IN ti CLARK 47 0- 3- 00 CA 78 EY ve L 59 20 20 0 RE 37 32 08 15 16 WY 5 2 PH CH MG AR AE MA L TA CY S BL ET LL C BI 00 03 05 0 15 15 ME 12 GA Ac SC 90 -1 -2 0. D 46 IN ti OL 45 0- 1- 00 CA 12 EY ve AX 05 20 20 0 RE 33 86 16 16 WY 10 0 PH CH AR AE MG MA L CY S CLARK PP LL OS C IT OR Y 00 11 05 0 30 30 ME 12 GA Ac TA 90 -0 -2 0. D 45 IN ti WY 45 5- 0- 00 CA 09 EY ve N 04 20 20 0 RE 35 AN 26 15 16 WY D 0 PH CH WY AR AE NE MA L RA CY S LS LL TA C BL ET 00 10 05 0 30 30 ME 12 GA Ac PI 60 -0 -1 0. D 44 IN ti RI 30 9- 8- 00 CA 30 EY ve N 02 20 20 0 RE 82 EC 63 15 16 WY 2 PH CH 81 AR AE MA L MG CY S TA LL BL C ET TR 45 05 05 0 85 15 ME 12 GA Ac OL 80 -1 -1 0. D 44 IN ti AM 20 7- 7- 00 CA 21 EY ve IN 35 20 20 0 RE 63 E 65 16 16 WY SA 3 PH CH LI AR AE CY MA L LA CY S TE LL 10 C % CR EA M ST 00 02 05 0 30 30 ME 12 GA Ac OO 53 -2 -1 0. D 42 IN ti L 61 3- 3- 00 CA 78 EY ve SO 06 20 20 0 RE 12 FT 41 16 16 WY EN 0 PH CH ER AR AE MA L 25 CY S 0 MG LL C SO FT GE L SE 00 10 04 0 12 30 ME 12 GA Ac NN 90 -2 -2 00 D 38 IN ti A 45 9- 9- .0 CA 00 EY ve 8. 16 20 20 00 RE 41 6 56 15 16 WY MG 1 PH CH AR AE TA MA L BL CY S ET LL C FE 00 10 04 0 30 30 ME 12 GA Ac RO 90 -1 -2 0. D 36 IN ti CLARK 47 0- 5- 00 CA 33 EY ve L 59 20 20 0 RE 19 32 08 15 16 WY 5 2 PH CH MG AR AE MA L TA CY S BL ET LL C 00 11 04 0 30 30 ME 12 GA Ac TA 90 -0 -2 0. D 34 IN ti WY 45 5- 1- 00 CA 77 EY ve N 04 20 20 0 RE 79 AN 26 15 16 WY D 0 PH CH WY AR AE NE MA L RA CY S LS LL TA C BL ET 00 10 04 0 30 30 ME 12 GA Ac PI 60 -0 -1 0. D 33 IN ti RI 30 9- 8- 00 CA 77 EY ve N 02 20 20 0 RE 74 EC 63 15 16 WY 2 PH CH 81 AR AE MA L MG CY S TA LL BL C ET ST 00 02 04 0 30 30 ME 12 GA Ac OO 53 -2 -1 0. D 33 IN ti L 61 3- 5- 00 CA 32 EY ve SO 06 20 20 0 RE 30 FT 41 16 16 WY EN 0 PH CH ER AR AE MA L 25 CY S 0 MG LL C SO FT GE L SE 00 10 03 0 12 30 ME 12 GA Ac NN 90 -2 -3 00 D 27 IN ti A 45 9- 0- .0 CA 50 EY ve 8. 16 20 20 00 RE 78 6 56 15 16 WY MG 1 PH CH AR AE TA MA L BL CY S ET LL C FE 00 10 03 0 30 30 ME 12 GA Ac RO 90 -1 -2 0. D 27 IN ti CLARK 47 0- 9- 00 CA 31 EY ve L 59 20 20 0 RE 11 32 08 15 16 WY 5 2 PH CH MG AR AE MA L TA CY S BL ET LL C 00 11 03 0 30 30 ME 12 GA Ac TA 90 -0 -2 0. D 26 IN ti WY 45 5- 4- 00 CA 13 EY ve N 04 20 20 0 RE 04 AN 26 15 16 WY D 0 PH CH WY AR AE NE MA L RA CY S LS LL TA C BL ET ST 00 02 03 0 30 30 ME 12 GA Ac OO 53 -2 -2 0. D 24 IN ti L 61 3- 2- 00 CA 91 EY ve SO 06 20 20 0 RE 08 FT 41 16 16 WY EN 0 PH CH ER AR AE MA L 25 CY S 0 MG LL C SO FT GE L 00 10 03 0 30 30 ME 12 GA Ac PI 60 -0 -2 0. D 25 IN ti RI 30 9- 1- 00 CA 14 EY ve N 02 20 20 0 RE 48 EC 63 15 16 WY 2 PH CH 81 AR AE MA L MG CY S TA LL BL C ET BI 00 03 03 0 15 15 ME 12 GA Ac SC 90 -1 -1 0. D 21 IN ti OL 45 0- 0- 00 CA 54 EY ve AX 05 20 20 0 RE 70 86 16 16 WY 10 0 PH CH AR AE MG MA L CY S CLARK PP LL OS C IT OR Y FE 00 10 02 0 30 30 ME 12 GA Ac RO 90 -1 -2 0. D 17 IN ti CLARK 47 0- 9- 00 CA 54 EY ve L 59 20 20 0 RE 28 32 08 15 16 WY 5 2 PH CH MG AR AE MA L TA CY S BL ET LL C SE 00 10 02 0 12 30 ME 12 GA Ac NN 90 -2 -2 00 D 17 IN ti A 45 9- 9- .0 CA 54 EY ve 8. 16 20 20 00 RE 30 6 56 15 16 WY MG 1 PH CH AR AE TA MA L BL CY S ET LL C 00 10 02 0 30 30 ME 12 GA Ac PI 60 -0 -2 0. D 16 IN ti RI 30 9- 6- 00 CA 76 EY ve N 02 20 20 0 RE 41 EC 63 15 16 WY 2 PH CH 81 AR AE MA L MG CY S TA LL BL C ET 00 11 02 0 30 30 ME 12 GA Ac TA 90 -0 -2 0. D 16 IN ti WY 45 5- 6- 00 CA 76 EY ve N 04 20 20 0 RE 44 AN 26 15 16 WY D 0 PH CH WY AR AE NE MA L RA CY S LS LL TA C BL ET ST 00 02 02 0 30 30 ME 12 GA Ac OO 53 -2 -2 0. D 16 IN ti L 61 3- 3- 00 CA 16 EY ve SO 06 20 20 0 RE 99 FT 41 16 16 WY EN 0 PH CH ER AR AE MA L 25 CY S 0 MG LL C SO FT GE L NO 64 02 02 0 30 5 ME 12 GA Ac RM 25 -1 -1 00 D 14 IN ti AL 30 9- 9- .0 CA 72 EY ve 11 20 20 00 RE 74 SA 13 16 16 WY LI 0 PH CH NE AR AE MA L FL CY S US H LL SY C RI NG E HE 64 02 02 0 10 5 ME 12 GA Ac PA 25 -1 -1 00 D 14 IN ti RI 30 9- 9- .0 CA 72 EY ve N 33 20 20 00 RE 75 50 33 16 16 WY 0 5 PH CH UN AR AE IT MA L /5 CY S ML LL C (1 00 /M L) NI 00 10 10 0 30 1 ME 11 GA Ac TR 28 -0 -0 0. D 70 IN ti O- 10 2- 2- 00 CA 90 EY ve BI 32 20 20 0 RE 44 D 63 15 15 WY 2% 0 PH CH AR AE OI MA L NT CY S ME NT LL C NO 00 10 10 0 10 15 ME 11 GA Ac VO 16 -0 -0 00 D 70 IN ti FI 91 1- 1- .0 CA 82 EY ve NE 85 20 20 00 RE 35 27 15 15 WY AU 5 PH CH TO AR AE CO MA L VE CY S R 30 LL G C NE ED LE MO 00 10 10 0 30 15 ME 11 GA Ac RP 40 -0 -0 0. D 70 IN ti HI 68 1- 1- 00 CA 82 EY ve NE 31 20 20 0 RE 36 50 15 15 WY CLARK 1 PH CH LF AR AE MA L ER CY S 15 LL C MG TA BL ET MA 00 09 09 0 19 3 ME 11 GA Ac PA 90 -1 -2 0. D 69 IN ti P 41 1- 8- 00 CA 64 EY ve 50 98 20 20 0 RE 31 0 86 15 15 WY MG 1 PH CH AR AE TA MA L BL CY S ET LL C 00 09 09 0 13 13 ME 11 GA Ac TA 90 -1 -1 0. D 66 IN ti WY 45 7- 7- 00 CA 15 EY ve N 04 20 20 0 RE 56 AN 26 15 15 WY D 0 PH CH WY AR AE NE MA L RA CY S LS LL TA C BL ET FE 00 09 09 0 30 30 ME 11 GA Ac RR 60 -1 -1 0. D 66 IN ti OU 30 7- 7- 00 CA 15 EY ve S 17 20 20 0 RE 57 CLARK 92 15 15 WY LF 9 PH CH AT AR AE E MA L 32 CY S 5 MG LL C TA BL ET 63 09 09 0 20 20 ME 11 GA Ac PI 73 -1 -1 0. D 64 IN ti RI 90 1- 1- 00 CA 99 EY ve N 43 20 20 0 RE 10 81 40 15 15 WY 1 PH CH MG AR AE MA L CH CY S EW AB LL LE C TA BL ET CA 68 03 09 0 18 90 WA 73 SM Ac RV 46 -1 -0 00 L- 69 IT ti ED 20 0- 3- .0 MA 55 H ve IL 16 20 20 00 RT 9 WY OL 50 15 15 KE 5 PH L 25 AR D MA MG CY # TA BL 10 ET 05 91 AT 68 09 09 11 30 30 WA 73 ME Ac OR 64 -0 -0 0. L- 69 SS ti VA 50 3- 3- 00 MA [address] 46 20 20 0 RT 1 LI AT 15 15 15 IN 4 PH AD AR RI 80 MA AN CY W MG # TA 10 BL 05 ET 91 LE 00 12 09 0 15 30 WA 73 PA Ac VE 16 -0 -0 0. L- 67 RS ti WY 96 4- 3- 00 MA 45 ON ve R 43 20 20 0 RT 7 S FL 81 14 15 JE EX 0 PH RE TO AR MY UC MA C H CY 10 # 0 UN 10 IT 05 S/ 91 ML LY 00 07 08 1 90 30 WA 45 PA Ac RI 07 -2 -2 0. L- 23 RS ti CA 11 4- 4- 00 MA 08 ON ve 01 20 20 0 RT 1 S 50 36 15 15 JE 8 PH RE MG AR MY MA C CA CY PS # UL E 10 05 91 BD 08 06 08 6 10 25 WA 88 PA Ac 29 -0 -2 00 L- 31 RS ti UL 03 6- 4- .0 MA 29 ON ve TR 20 20 20 00 RT 3 S A- 12 15 15 JE FI 2 PH RE NE AR MY MA C PE CY N # ND L 10 4M 05 MX 91 32 G RO 43 06 08 4 30 30 WA 73 PA Ac PI 54 -3 -2 0. L- 67 RS ti NI 70 0- 4- 00 MA 46 ON ve RO 27 20 20 0 RT 0 S LE 31 15 15 JE 0 PH RE HC AR MY L MA C 4 CY MG # TA 10 BL 05 ET 91 FL 60 08 08 0 16 32 WA 73 FR Ac UT 43 -2 -2 0. L- 67 YM ti IC 20 1- 1- 00 MA 00 AN ve 26 20 20 0 RT 2 ON 41 15 15 EU E 5 PH GO GA AR ND OP MA A CY F 50 # MC 10 G 05 SP 91 RA Y CL 16 03 08 7 30 30 KM 68 SM Ac OP 72 -1 -1 0. AR 59 IT ti ID 90 0- 2- 00 T 40 H ve OG 21 20 20 0 PH 5 WY RE 81 15 15 AR KE L 5 MA L 75 CY D # MG 48 TA 47 BL ET LE 00 12 08 11 15 30 KM 68 PA Ac VE 16 -0 -0 0. AR 56 RS ti WY 96 4- 5- 00 T 02 ON ve R 43 20 20 0 PH 1 S FL 81 14 15 AR JE EX 0 MA RE TO CY MY UC # C H 10 48 0 47 UN IT S/ ML FU 00 10 08 11 60 30 KM 68 PA Ac RO 37 -0 -0 0. AR 54 RS ti SE 80 6- 4- 00 T 23 ON ve WY 21 20 20 0 PH 7 S DE 61 14 15 AR JE 0 MA RE 40 CY MY # C MG 48 TA 47 BL ET AT 00 04 08 4 30 30 KM 68 SM Ac OR 37 -0 -0 0. AR 59 IT ti VA 83 7- 4- 00 T [address] 95 20 20 0 PH 7 WY AT 37 15 15 AR KE IN 7 MA L CY D 80 # MG 48 47 TA BL ET GA 59 04 07 11 85 17 KM 68 PA Ac OA 31 -2 -1 .0 AR 59 RS ti IR 00 8- 6- 00 T 92 ON ve 57 20 20 PH 3 S HF 92 15 15 AR JE A 2 MA RE 90 CY MY # C MC G 48 IN 47 CASTELAN LE R MO 42 07 07 0 60 30 KM 22 PA Ac RP 85 -0 -0 0. AR 17 RS ti HI 80 9- 9- 00 T 59 ON ve NE 80 20 20 0 PH 9 S 10 15 15 AR JE CLARK 1 MA RE LF CY MY # C ER 48 15 47 MG TA BL ET FU 00 10 07 11 60 30 KM 68 PA Ac RO 37 -0 -0 0. AR 54 RS ti SE 80 6- 8- 00 T 23 ON ve WY 21 20 20 0 PH 7 S DE 61 14 15 AR JE 0 MA RE 40 CY MY # C MG 48 TA 47 BL ET AT 00 04 07 4 30 30 KM 68 SM Ac OR 37 -0 -0 0. AR 59 IT ti VA 83 7- 8- 00 T [address] 95 20 20 0 PH 7 WY AT 37 15 15 AR KE IN 7 MA L CY D 80 # MG 48 47 TA BL ET CL 16 03 07 7 30 30 KM 68 SM Ac OP 72 -1 -0 0. AR 59 IT ti ID 90 0- 8- 00 T 40 H ve OG 21 20 20 0 PH 5 WY RE 81 15 15 AR KE L 5 MA L 75 CY D # MG 48 TA 47 BL ET LE 00 12 06 11 15 30 KM 68 PA Ac VE 16 -0 -2 0. AR 56 RS ti WY 96 4- 9- 00 T 02 ON ve R 43 20 20 0 PH 1 S FL 81 14 15 AR JE EX 0 MA RE TO CY MY UC # C H 10 48 0 47 UN IT S/ ML LY 00 04 06 2 90 3 KM 44 PA Ac RI 07 -2 -2 0. AR 55 RS ti CA 11 9- 9- 00 T 04 ON ve 01 20 20 0 PH 0 S 50 36 15 15 AR JE 8 MA RE MG CY MY # C CA PS 48 UL 47 E MO 42 06 06 0 60 30 KM 22 PA Ac RP 85 -0 -0 0. AR 17 RS ti HI 80 6- 6- 00 T 43 ON ve NE 80 20 20 0 PH 1 S 10 15 15 AR JE CLARK 1 MA RE LF CY MY # C ER 48 15 47 MG TA BL ET CL 16 03 06 7 30 30 KM 68 SM Ac OP 72 -1 -0 0. AR 59 IT ti ID 90 0- 3- 00 T 40 H ve OG 21 20 20 0 PH 5 WY RE 81 15 15 AR KE L 5 MA L 75 CY D # MG 48 TA 47 BL ET AT 00 04 06 4 30 30 KM 68 SM Ac OR 37 -0 -0 0. AR 59 IT ti VA 83 7- 3- 00 T [address] 95 20 20 0 PH 7 WY AT 37 15 15 AR KE IN 7 MA L CY D 80 # MG 48 47 TA BL ET FU 00 10 06 11 60 30 KM 68 PA Ac RO 37 -0 -0 0. AR 54 RS ti SE 80 6- 3- 00 T 23 ON ve WY 21 20 20 0 PH 7 S DE 61 14 15 AR JE 0 MA RE 40 CY MY # C MG 48 TA 47 BL ET LY 00 04 05 2 90 30 KM 44 PA Ac RI 07 -2 -2 0. AR 55 RS ti CA 11 9- 7- 00 T 04 ON ve 01 20 20 0 PH 0 S 50 36 15 15 AR JE 8 MA RE MG CY MY # C CA PS 48 UL 47 E ON 53 07 05 11 10 25 KM 88 PA Ac ET 88 -0 -1 00 AR 04 RS ti OU 50 8- 2- .0 T 84 ON ve CH 14 20 20 00 PH 8 S 30 14 15 AR JE DE 1 MA RE LI CY MY CA # C 33 48 G 47 LA NC ET S BD 08 12 05 11 10 25 KM 88 PA Ac 29 -0 -1 00 AR 05 RS ti UL 03 4- 2- .0 T 06 ON ve TR 20 20 20 00 PH 3 S A- 10 14 15 AR JE FI 9 MA RE NE CY MY # C PE N 48 ND 47 L 8M MX 31 G MO 42 04 05 0 60 30 KM 22 PA Ac RP 85 -2 -0 0. AR 17 RS ti HI 80 8- 7- 00 T 29 ON ve NE 80 20 20 0 PH 7 S 10 15 15 AR JE CLARK 1 MA RE LF CY MY # C ER 48 15 47 MG TA BL ET HY 53 04 05 0 12 30 KM [address] 74 -2 -0 00 AR 17 RS ti OC 60 8- 7- .0 T 29 ON ve OD 11 20 20 00 PH 8 S ON 00 15 15 AR JE -A 5 MA RE CE CY MY TA # C WY NO 48 PH 47 N 10 -3 25 CLARK 53 04 05 1 20 10 KM 68 PA Ac LF 74 -2 -0 0. AR 59 RS ti AM 60 9- 6- 00 T 97 ON ve ET 27 20 20 0 PH 6 S HO 20 15 15 AR JE XA 5 MA RE ZO CY MY LE # C -T MP 48 47 DS TA BL ET FU 00 10 05 11 60 30 KM 68 PA Ac RO 37 -0 -0 0. AR 54 RS ti SE 80 6- 4- 00 T 23 ON ve WY 21 20 20 0 PH 7 S DE 61 14 15 AR JE 0 MA RE 40 CY MY # C MG 48 TA 47 BL ET AT 00 04 05 4 30 30 KM 68 SM Ac OR 37 -0 -0 0. AR 59 IT ti VA 83 7- 4- 00 T [address] 95 20 20 0 PH 7 WY AT 37 15 15 AR KE IN 7 MA L CY D 80 # MG 48 47 TA BL ET CL 16 03 05 7 30 30 KM 68 SM Ac OP 72 -1 -0 0. AR 59 IT ti ID 90 0- 4- 00 T 40 H ve OG 21 20 20 0 PH 5 WY RE 81 15 15 AR KE L 5 MA L 75 CY D # MG 48 TA 47 BL ET RO 43 03 05 1 60 30 KM 68 SM Ac PI 54 -1 -0 0. AR 59 IT ti NI 70 0- 4- 00 T 40 H ve RO 27 20 20 0 PH 6 WY LE 11 15 15 AR KE 0 MA L HC CY D L # 2 MG 48 47 TA BL ET LY 00 04 04 2 90 30 KM 44 PA Ac RI 07 -2 -2 0. AR 55 RS ti CA 11 9- 9- 00 T 04 ON ve 01 20 20 0 PH 0 S 50 36 15 15 AR JE 8 MA RE MG CY MY # C CA PS 48 UL 47 E GA 59 04 04 11 85 17 KM 68 PA Ac OA 31 -2 -2 .0 AR 59 RS ti IR 00 8- 8- 00 T 92 ON ve 57 20 20 PH 3 S HF 92 15 15 AR JE A 2 MA RE 90 CY MY # C MC G 48 IN 47 CASTELAN LE R CA 58 04 04 0 20 5 KM 68 GA Ac RA 91 -2 -2 00 AR 59 IN ti FA 40 5- 6- .0 T 86 EY ve TE 17 20 20 00 PH 1 1 01 15 15 AR WY 4 MA CH GM CY AE /1 # L 0 S ML 48 47 CLARK SP CLARK 53 04 04 0 28 14 KM 68 PA Ac LF 74 -2 -2 0. AR 59 RS ti AM 60 2- 2- 00 T 80 ON ve ET 27 20 20 0 PH 7 S HO 20 15 15 AR JE XA 5 MA RE ZO CY MY LE # C -T MP 48 47 DS TA BL ET MO 42 03 04 0 60 30 KM 22 PA Ac RP 85 -2 -0 0. AR 17 RS ti HI 80 6- 9- 00 T 14 ON ve NE 80 20 20 0 PH 0 S 10 15 15 AR JE CLARK 1 MA RE LF CY MY # C ER 48 15 47 MG TA BL ET CL 16 03 04 7 30 30 KM 68 SM Ac OP 72 -1 -0 0. AR 59 IT ti ID 90 0- 7- 00 T 40 H ve OG 21 20 20 0 PH 5 WY RE 81 15 15 AR KE L 5 MA L 75 CY D # MG 48 TA 47 BL ET RO 43 03 04 1 60 30 KM 68 SM Ac PI 54 -1 -0 0. AR 59 IT ti NI 70 0- 7- 00 T 40 H ve RO 27 20 20 0 PH 6 WY LE 11 15 15 AR KE 0 MA L HC CY D L # 2 MG 48 47 TA BL ET AT 00 04 04 4 30 30 KM 68 SM Ac OR 37 -0 -0 0. AR 59 IT ti VA 83 7- 7- [address] 95 20 20 0 PH 7 WY AT 37 15 15 AR KE IN 7 MA L CY D 80 # MG 48 47 TA BL ET BD 08 12 04 11 10 25 KM 88 PA Ac 29 -0 -0 00 AR 05 RS ti UL 03 4- 6- .0 T 06 ON ve TR 20 20 20 00 PH 3 S A- 10 14 15 AR JE FI 9 MA RE NE CY MY # C PE N 48 ND 47 L 8M MX 31 G TA 00 03 03 11 30 30 KM 68 PA Ac MS 78 -2 -2 0. AR 59 RS ti UL 12 6- 6- 00 T 12 ON ve OS 07 20 20 0 PH 3 S IN 60 15 15 AR JE 1 MA RE HC CY MY L # C 0. 4 48 MG 47 CA PS UL E MO 42 02 03 0 60 30 KM 22 PA Ac RP 85 -2 -1 0. AR 17 RS ti HI 80 6- 2- 00 T 00 ON ve NE 80 20 20 0 PH 4 S 10 15 15 AR JE CLARK 1 MA RE LF CY MY # C ER 48 15 47 MG TA BL ET LY 00 03 03 0 90 30 KE 52 SM Ac RI 07 -1 -1 0. NT 40 IT ti CA 11 0- 0- 00 UC 01 H ve 01 20 20 0 [place] 38 [place] 50 36 15 15 2 KE 8 CL L MG IN D IC CA PS PH UL AR E MA CY LI 00 03 03 1 90 90 KE 52 SM Ac SI 17 -1 -1 0. NT 60 IT ti NO 23 0- 0- 00 UC 92 H ve GA 75 20 20 0 [place] 71 [place] IL 98 15 15 6 KE 0 CL L 10 IN D IC MG PH TA AR BL MA ET CY LE 00 03 03 1 15 83 KE 52 SM Ac VE 16 -1 -1 0. NT 60 IT ti WY 96 0- 0- 00 UC 92 H ve R 43 20 20 0 [place] 71 [place] FL 81 15 15 8 KE EX 0 CL L TO IN D UC IC H 10 PH 0 AR UN MA IT CY S/ ML AM 00 03 03 0 40 8 KE 52 SM Ac IT 60 -1 -1 .0 NT 60 IT ti RI 32 0- 0- 00 UC 92 H ve PT 21 20 20 [place] 71 [place] YL 32 15 15 3 KE IN 1 CL L E IN D HC IC L 25 PH AR MG MA CY TA B RO 23 03 03 0 60 30 KE 52 SM Ac PI 15 -1 -1 0. NT 60 IT ti NI 50 0- 0- 00 UC 92 H ve RO 12 20 20 0 [place] 71 [place] LE 40 15 15 2 KE 1 CL L HC IN D L IC 2 MG PH AR TA MA BL CY ET NO 00 03 03 1 15 62 KE 52 SM Ac VO 16 -1 -1 0. NT 60 IT ti LO 96 0- 0- 00 UC 92 H ve G 33 20 20 0 [place] 71 [place] 10 91 15 15 7 KE 0 0 CL L UN IN D IT IC S/ ML PH AR FL MA EX CY PE N AT 60 03 03 1 30 30 KE 52 SM Ac OR 50 -1 -1 0. NT 60 IT ti VA 52 0- 0- 00 [address] 67 20 20 0 [place] 72 [place] AT 10 15 15 0 KE IN 9 CL L IN D 80 IC MG PH AR TA MA BL CY ET ON 53 03 03 1 10 25 KE 52 SM Ac ET 88 -1 -1 00 NT 60 IT ti OU 50 0- 0- .0 UC 92 H ve CH 24 20 20 00 [place] 73 [place] 51 15 15 0 KE UL 0 CL L TR IN D A IC TE ST PH AR ST MA RI CY PS ON 53 03 03 1 10 30 KE 52 SM Ac ET 88 -1 -1 00 NT 60 IT ti OU 50 0- 0- .0 UC 92 H ve CH 14 20 20 00 [place] 72 [place] 30 15 15 9 KE DE 1 CL L LI IN D CA IC 33 PH G AR LA MA NC CY ET S CL 55 03 03 2 30 30 KE 52 SM Ac OP 11 -1 -1 0. NT 60 IT ti ID 10 0- 0- 00 UC 92 H ve OG 19 20 20 0 [place] 71 [place] RE 69 15 15 9 KE L 0 CL L 75 IN D IC MG PH TA AR BL MA ET CY ON 53 03 03 0 10 30 KE 52 SM Ac ET 88 -1 -1 .0 NT 60 IT ti OU 50 0- 0- 00 UC 92 H ve CH 44 20 20 [place] 72 [place] 80 15 15 1 KE UL 1 CL L TR IN D A2 IC GL PH UC AR OS MA E CY SY ST 00 03 03 1 90 90 KE 52 SM Ac PI 60 -1 -1 0. NT 60 IT ti RI 30 0- 0- 00 UC 92 H ve N 02 20 20 0 [place] 71 [place] EC 62 15 15 4 KE 2 CL L 81 IN D IC MG PH TA AR BL MA ET CY CA 68 03 03 1 18 90 KE 52 SM Ac RV 38 -1 -1 00 NT 60 IT ti ED 20 0- 0- .0 UC 92 H ve IL 09 20 20 00 [place] 72 [place] OL 50 15 15 2 KE 5 CL L 25 IN D IC MG PH TA AR BL MA ET CY FU 00 10 03 11 60 30 KM 68 PA Ac RO 37 -0 -0 0. AR 54 RS ti SE 80 6- 7- 00 T 23 ON ve WY 21 20 20 0 PH 7 S DE 61 14 15 AR JE 0 MA RE 40 CY MY # C MG 48 TA 47 BL ET NO 00 03 02 11 15 30 KM 68 BU Ac VO 16 -0 -1 0. AR 48 RG ti LO 93 5- 2- 00 T 24 ES ve G 69 20 20 0 PH 7 S WY 61 14 15 AR KE X 9 MA LL 70 CY Y -3 # 0 FL 48 EX 47 PE N SY RN BD 08 12 02 11 10 25 KM 88 PA Ac 29 -0 -1 00 AR 05 RS ti UL 03 4- 1- .0 T 06 ON ve TR 20 20 20 00 PH 3 S A- 10 14 15 AR JE FI 9 MA RE NE CY MY # C PE N 48 ND 47 L 8M MX 31 G MO 42 02 02 0 60 30 KM 22 PA Ac RP 85 -1 -1 0. AR 16 RS ti HI 80 0- 0- 00 T 87 ON ve NE 80 20 20 0 PH 0 S 10 15 15 AR JE CLARK 1 MA RE LF CY MY # C ER 48 15 47 MG TA BL ET RO 23 09 01 11 30 30 KM 68 PA Ac PI 15 -0 -2 0. AR 53 RS ti NI 50 5- 8- 00 T 28 ON ve RO 12 20 20 0 PH 0 S LE 60 14 15 AR JE 1 MA RE HC CY MY L # C 4 MG 48 47 TA BL ET TO 00 09 01 11 60 30 KM 68 PA Ac GA 18 -0 -2 0. AR 53 RS ti OL 61 5- 8- 00 T 27 ON ve 09 20 20 0 PH 9 S XL 00 14 15 AR JE 5 MA RE 50 CY MY # C MG 48 TA 47 BL ET AM 00 12 01 5 30 30 KM 68 PA Ac IT 60 -0 -2 0. AR 56 RS ti RI 32 4- 8- 00 T 02 ON ve PT 21 20 20 0 PH 2 S YL 43 14 15 AR JE IN 2 MA RE E CY MY HC # C L 50 48 47 MG TA B EN 00 09 01 11 60 30 KM 68 PA Ac AL 09 -0 -2 0. AR 53 RS ti AP 30 5- 8- 00 T 27 ON ve RI 02 20 20 0 PH 8 S L 80 14 15 AR JE MA 1 MA RE LE CY MY AT # C E 10 48 47 MG TA B FU 00 10 01 11 60 30 KM 68 PA Ac RO 37 -0 -2 0. AR 54 RS ti SE 80 6- 8- 00 T 23 ON ve WY 21 20 20 0 PH 7 S DE 61 14 15 AR JE 0 MA RE 40 CY MY # C MG 48 TA 47 BL ET MO 42 01 01 0 60 30 KM 22 PA Ac RP 85 -1 -1 0. AR 16 RS ti HI 80 2- 2- 00 T 71 ON ve NE 80 20 20 0 PH 1 S 10 15 15 AR JE CLARK 1 MA RE LF CY MY # C ER 48 15 47 MG TA BL ET AM 00 12 12 5 30 30 KM 68 PA Ac IT 60 -0 -3 0. AR 56 RS ti RI 32 4- 1- 00 T 02 ON ve PT 21 20 20 0 PH 2 S YL 43 14 14 AR JE IN 2 MA RE E CY MY HC # C L 50 48 47 MG TA B GA 67 12 12 0 90 30 KM 68 BU Ac BA 87 -3 -3 0. AR 56 RG ti PE 70 1- 1- 00 T 77 ES ve NT 22 20 20 0 PH 8 S IN 30 14 14 AR KE 5 MA LL 30 CY Y 0 # MG 48 CA 47 PS UL E MU 45 12 12 2 22 5 KM 68 PA Ac PI 80 -3 -3 0. AR 56 RS ti RO 20 0- 0- 00 T 74 ON ve CI 11 20 20 0 PH 5 S N 22 14 14 AR JE 2% 2 MA RE CY MY OI # C NT ME 48 NT 47 PO 00 10 12 11 60 30 KM 68 PA Ac TA 78 -0 -1 0. AR 54 RS ti SS 11 6- 7- 00 T 23 ON ve IU 52 20 20 0 PH 8 S M 60 14 14 AR JE CL 1 MA RE CY MY ER # C 10 48 47 ME Q TA BL ET RO 23 09 12 11 30 30 KM 68 PA Ac PI 15 -0 -1 0. AR 53 RS ti NI 50 5- 7- 00 T 28 ON ve RO 12 20 20 0 PH 0 S LE 60 14 14 AR JE 1 MA RE HC CY MY L # C 4 MG 48 47 TA BL ET EN 00 09 12 11 60 30 KM 68 PA Ac AL 09 -0 -1 0. AR 53 RS ti AP 30 5- 7- 00 T 27 ON ve RI 02 20 20 0 PH 8 S L 80 14 14 AR JE MA 1 MA RE LE CY MY AT # C E 10 48 47 MG TA B TO 00 09 12 11 60 30 KM 68 PA Ac GA 18 -0 -1 0. AR 53 RS ti OL 61 5- 7- 00 T 27 ON ve 09 20 20 0 PH 9 S XL 00 14 14 AR JE 5 MA RE 50 CY MY # C MG 48 TA 47 BL ET FU 00 10 12 11 60 30 KM 68 PA Ac RO 37 -0 -1 0. AR 54 RS ti SE 80 6- 7- 00 T 23 ON ve WY 21 20 20 0 PH 7 S DE 61 14 14 AR JE 0 MA RE 40 CY MY # C MG 48 TA 47 BL ET MO 42 12 12 0 60 30 KM 22 PA Ac RP 85 -0 -1 0. AR 16 RS ti HI 80 4- 2- 00 T 55 ON ve NE 80 20 20 0 PH 8 S 10 14 14 AR JE CLARK 1 MA RE LF CY MY # C ER 48 15 47 MG TA BL ET AM 00 12 12 5 30 30 KM 68 PA Ac IT 60 -0 -0 0. AR 56 RS ti RI 32 4- 4- 00 T 02 ON ve PT 21 20 20 0 PH 2 S YL 43 14 14 AR JE IN 2 MA RE E CY MY HC # C L 50 48 47 MG TA B BD 08 12 12 11 10 50 KM 88 PA Ac 29 -1 -0 00 AR 04 RS ti UL 03 1- 3- .0 T 58 ON ve TR 20 20 20 00 PH 8 S A- 10 13 14 AR JE FI 9 MA RE NE CY MY # C PE N 48 ND 47 L 8M MX 31 G GA 67 12 12 0 90 30 KM 68 BU Ac BA 87 -0 -0 0. AR 55 RG ti PE 70 1- 1- 00 T 86 ES ve NT 22 20 20 0 PH 8 S IN 30 14 14 AR KE 5 MA LL 30 CY Y 0 # MG 48 CA 47 PS UL E ON 53 07 11 11 10 25 KM 88 PA Ac ET 88 -0 -1 00 AR 04 RS ti OU 50 8- 2- .0 T 84 ON ve CH 14 20 20 00 PH 8 S 30 14 14 AR JE DE 1 MA RE LI CY MY CA # C 33 48 G 47 LA NC ET S TO 00 09 11 11 60 30 KM 68 PA Ac GA 18 -0 -1 0. AR 53 RS ti OL 61 5- 2- 00 T 27 ON ve 09 20 20 0 PH 9 S XL 00 14 14 AR JE 5 MA RE 50 CY MY # C MG 48 TA 47 BL ET ON 53 07 11 11 10 25 KM 88 PA Ac ET 88 -0 -1 00 AR 04 RS ti OU 50 8- 2- .0 T 84 ON ve CH 24 20 20 00 PH 7 S 51 14 14 AR JE UL 0 MA RE TR CY MY A # C TE ST [address] RI PS EN 00 09 11 11 60 30 KM 68 PA Ac AL 09 -0 -1 0. AR 53 RS ti AP 30 5- 1- 00 T 27 ON ve RI 02 20 20 0 PH 8 S L 80 14 14 AR JE MA 1 MA RE LE CY MY AT # C E 10 48 47 MG TA B PO 00 10 11 11 60 30 KM 68 PA Ac TA 78 -0 -1 0. AR 54 RS ti SS 11 6- 1- 00 T 23 ON ve IU 52 20 20 0 PH 8 S M 60 14 14 AR JE CL 1 MA RE CY MY ER # C 10 48 47 ME Q TA BL ET RO 23 09 11 11 30 30 KM 68 PA Ac PI 15 -0 -1 0. AR 53 RS ti NI 50 5- 1- 00 T 28 ON ve RO 12 20 20 0 PH 0 S LE 60 14 14 AR JE 1 MA RE HC CY MY L # C 4 MG 48 47 TA BL ET FU 00 10 11 11 60 30 KM 68 PA Ac RO 05 -0 -1 0. AR 54 RS ti SE 44 6- 1- 00 T 23 ON ve WY 29 20 20 0 PH 7 S DE 93 14 14 AR JE 1 MA RE 40 CY MY # C MG 48 TA 47 BL ET MO 42 10 10 0 60 30 KM 22 PA Ac RP 85 -2 -2 0. AR 16 RS ti HI 80 9- 9- 00 T 31 ON ve NE 80 20 20 0 PH 9 S 10 14 14 AR JE CLARK 1 MA RE LF CY MY # C ER 48 15 47 MG TA BL ET GA 67 10 10 0 90 30 KM 68 BU Ac BA 87 -2 -2 0. AR 55 RG ti PE 70 9- 9- 00 T 00 ES ve NT 22 20 20 0 PH 4 S IN 30 14 14 AR KE 1 MA LL 30 CY Y 0 # MG 48 CA 47 PS UL E AM 00 04 10 5 30 30 KM 68 LE Ac IT 60 -1 -2 0. AR 49 SL ti RI 32 8- 9- 00 T 56 IE ve PT 21 20 20 0 PH 3 YL 43 14 14 AR WI IN 2 MA LM E CY A HC # L 50 48 47 MG TA B TO 00 09 10 11 60 30 KM 68 PA Ac GA 18 -0 -0 0. AR 53 RS ti OL 61 5- 8- 00 T 27 ON ve 09 20 20 0 PH 9 S XL 00 14 14 AR JE 5 MA RE 50 CY MY # C MG 48 TA 47 BL ET RO 23 09 10 11 30 30 KM 68 PA Ac PI 15 -0 -0 0. AR 53 RS ti NI 50 5- 8- 00 T 28 ON ve RO 12 20 20 0 PH 0 S LE 60 14 14 AR JE 1 MA RE HC CY MY L # C 4 MG 48 47 TA BL ET EN 00 09 10 11 60 30 KM 68 PA Ac AL 09 -0 -0 0. AR 53 RS ti AP 30 5- 8- 00 T 27 ON ve RI 02 20 20 0 PH 8 S L 80 14 14 AR JE MA 1 MA RE LE CY MY AT # C E 10 48 47 MG TA B PO 00 10 10 11 60 30 KM 68 PA Ac TA 78 -0 -0 0. AR 54 RS ti SS 11 6- 6- 00 T 23 ON ve IU 52 20 20 0 PH 8 S M 60 14 14 AR JE CL 1 MA RE CY MY ER # C 10 48 47 ME Q TA BL ET FU 00 10 10 11 60 30 KM 68 PA Ac RO 05 -0 -0 0. AR 54 RS ti SE 44 6- 6- 00 T 23 ON ve WY 29 20 20 0 PH 7 S DE 93 14 14 AR JE 1 MA RE 40 CY MY # C MG 48 TA 47 BL ET MO 42 09 09 0 60 30 KM 22 PA Ac RP 85 -0 -2 0. AR 16 RS ti HI 80 5- 8- 00 T 17 ON ve NE 80 20 20 0 PH 3 S 10 14 14 AR JE CLARK 1 MA RE LF CY MY # C ER 48 15 47 MG TA BL ET AM 00 04 09 5 30 30 KM 68 LE Ac IT 60 -1 -1 0. AR 49 SL ti RI 32 8- 7- 00 T 56 IE ve PT 21 20 20 0 PH 3 YL 43 14 14 AR WI IN 2 MA LM E CY A HC # L 50 48 47 MG TA B GA 67 03 09 5 90 30 KM 68 BU Ac BA 87 -0 -1 0. AR 48 RG ti PE 70 5- 7- 00 T 24 ES ve NT 22 20 20 0 PH 5 S IN 30 14 14 AR KE 5 MA LL 30 CY Y 0 # MG 48 CA 47 PS UL E FU 00 03 09 5 30 30 KM 68 BU Ac RO 05 -0 -1 0. AR 48 RG ti SE 44 5- 7- 00 T 24 ES ve WY 29 20 20 0 PH 4 S DE 93 14 14 AR KE 1 MA LL 40 CY Y # MG 48 TA 47 BL ET RO 23 09 09 11 30 30 KM 68 PA Ac PI 15 -0 -0 0. AR 53 RS ti NI 50 5- 9- 00 T 28 ON ve RO 12 20 20 0 PH 0 S LE 60 14 14 AR JE 1 MA RE HC CY MY L # C 4 MG 48 47 TA BL ET TO 00 09 09 11 60 30 KM 68 PA Ac GA 18 -0 -0 0. AR 53 RS ti OL 61 5- 9- 00 T 27 ON ve 09 20 20 0 PH 9 S XL 00 14 14 AR JE 5 MA RE 50 CY MY # C MG 48 TA 47 BL ET EN 00 09 09 11 60 30 KM 68 PA Ac AL 09 -0 -0 0. AR 53 RS ti AP 30 5- 5- 00 T 27 ON ve RI 02 20 20 0 PH 8 S L 80 14 14 AR JE MA 1 MA RE LE CY MY AT # C E 10 48 47 MG TA B NO 00 09 09 11 15 30 KM 68 PA Ac VO 16 -0 -0 0. AR 53 RS ti LO 96 5- 5- 00 T 28 ON ve G 33 20 20 0 PH 4 S 10 91 14 14 AR JE 0 0 MA RE UN CY MY IT # C S/ ML 48 47 FL EX PE N AT 00 08 08 0 30 30 KM 68 BU Ac OR 37 -2 -2 0. AR 53 RG ti VA 83 8- 8- 00 T [address] 95 20 20 0 PH 2 S AT 17 14 14 AR KE IN 7 MA LL CY Y 20 # MG 48 47 TA BL ET MO 42 08 08 0 60 30 KM 22 PA Ac RP 85 -0 -2 0. AR 16 RS ti HI 80 5- 7- 00 T 10 ON ve NE 80 20 20 0 PH 0 S 10 14 14 AR JE CLARK 1 MA RE LF CY MY # C ER 48 15 47 MG TA BL ET FU 00 03 08 5 30 30 KM 68 BU Ac RO 37 -0 -1 0. AR 48 RG ti SE 80 5- 1- 00 T 24 ES ve WY 21 20 20 0 PH 4 S DE 61 14 14 AR KE 0 MA LL 40 CY Y # MG 48 TA 47 BL ET GA 67 03 08 5 90 30 KM 68 BU Ac BA 87 -0 -1 0. AR 48 RG ti PE 70 5- 1- 00 T 24 ES ve NT 22 20 20 0 PH 5 S IN 30 14 14 AR KE 5 MA LL 30 CY Y 0 # MG 48 CA 47 PS UL E AM 00 04 08 5 30 30 KM 68 LE Ac IT 37 -1 -1 0. AR 49 SL ti RI 82 8- 1- 00 T 56 IE ve PT 65 20 20 0 PH 3 YL 00 14 14 AR WI IN 1 MA LM E CY A HC # L 50 48 47 MG TA B MU 45 08 08 5 22 10 KM 68 PA Ac PI 80 -0 -0 0. AR 52 RS ti RO 20 5- 5- 00 T 39 ON ve CI 11 20 20 0 PH 1 S N 22 14 14 AR JE 2% 2 MA RE CY MY OI # C NT ME 48 NT 47 MO 42 07 07 0 60 30 KM 22 PA Ac RP 85 -0 -2 0. AR 15 RS ti HI 80 8- 7- 00 T 99 ON ve NE 80 20 20 0 PH 5 S 10 14 14 AR JE CLARK 1 MA RE LF CY MY # C ER 48 15 47 MG TA BL ET ON 53 07 07 11 10 25 KM 88 PA Ac ET 88 -0 -1 00 AR 04 RS ti OU 50 8- 7- .0 T 84 ON ve CH 24 20 20 00 PH 7 S 51 14 14 AR JE UL 0 MA RE TR CY MY A # C TE ST [address] RI PS GA 59 06 07 11 85 25 KM 68 PA Ac OA 31 -1 -1 .0 AR 51 RS ti IR 00 1- 5- 00 T 09 ON ve 57 20 20 PH 4 S HF 92 14 14 AR JE A 2 MA RE 90 CY MY # C MC G 48 IN 47 CASTELAN LE R ME 00 09 07 6 60 30 KM 68 CASTELAN Ac TO 37 -1 -1 0. AR 48 LL ti GA 80 9- 5- 00 T 97 ve OL 03 20 20 0 PH 4 DE OL 21 13 14 AR BR 0 MA A TA CY K RT # RA TE 48 47 50 MG TA B NO 00 03 07 11 15 30 KM 68 BU Ac VO 16 -0 -1 0. AR 48 RG ti LO 93 5- 5- 00 T 24 ES ve G 69 20 20 0 PH 7 S WY 61 14 14 AR KE X 9 MA LL 70 CY Y -3 # 0 FL 48 EX 47 PE N SY RN CL 08 07 07 5 10 30 CASTELAN 58 PA Ac IC 39 -0 -0 00 RO 40 RS ti KF 69 8- 8- .0 LD 56 ON ve IN 00 20 20 00 S E 50 14 14 CL JE UN 0 IN RE IV IC MY ER C SA PH L AR 31 MA GX CY 5/ 16 " 00 07 07 5 60 30 CASTELAN 58 PA Ac 16 -0 -0 .0 RO 40 RS ti 96 8- 8- 00 LD 55 ON ve 43 20 20 S 91 14 14 CL JE 0 IN RE IC MY C PH AR MA CY DI 00 07 07 0 30 7 CASTELAN 58 PA Ac PH 37 -0 -0 0. RO 40 RS ti EN 80 8- 8- 00 LD 54 ON ve OX 41 20 20 0 S YL 51 14 14 CL JE AT 0 IN RE E- IC MY AT C RO PH P AR 2. MA 5- CY 0. 02 5 MU 45 07 07 5 22 10 CASTELAN 58 PA Ac PI 80 -0 -0 0. RO 40 RS ti RO 20 8- 8- 00 LD 57 ON ve CI 11 20 20 0 S N 22 14 14 CL JE 2% 2 IN RE IC MY OI C NT PH ME AR NT MA CY MO 42 06 06 0 60 30 KM 22 PA Ac RP 85 -1 -3 0. AR 15 RS ti HI 80 1- 0- 00 T 92 ON ve NE 80 20 20 0 PH 5 S 10 14 14 AR JE CLARK 1 MA RE LF CY MY # C ER 48 15 47 MG TA BL ET AM 00 04 06 5 30 30 KM 68 LE Ac IT 37 -1 -2 0. AR 49 SL ti RI 82 8- 0- 00 T 56 IE ve PT 65 20 20 0 PH 3 YL 00 14 14 AR WI IN 1 MA LM E CY A HC # L 50 48 47 MG TA B RO 23 01 06 6 30 30 KM 68 BU Ac PI 15 -2 -2 0. AR 47 RG ti NI 50 9- 0- 00 T 34 ES ve RO 12 20 20 0 PH 5 S LE 60 14 14 AR KE 1 MA LL HC CY Y L # 4 MG 48 47 TA BL ET EN 00 03 06 5 60 30 KM 68 BU Ac AL 09 -0 -2 0. AR 48 RG ti AP 30 5- 0- 00 T 24 ES ve RI 02 20 20 0 PH 3 S L 80 14 14 AR KE MA 1 MA LL LE CY Y AT # E 10 48 47 MG TA B FU 00 03 06 5 30 30 KM 68 BU Ac RO 37 -0 -2 0. AR 48 RG ti SE 80 5- 0- 00 T 24 ES ve WY 21 20 20 0 PH 4 S DE 61 14 14 AR KE 0 MA LL 40 CY Y # MG 48 TA 47 BL ET GA 67 03 06 5 90 30 KM 68 BU Ac BA 87 -0 -2 0. AR 48 RG ti PE 70 5- 0- 00 T 24 ES ve NT 22 20 20 0 PH 5 S IN 30 14 14 AR KE 5 MA LL 30 CY Y 0 # MG 48 CA 47 PS UL E AT 00 03 06 2 30 30 KM 68 BU Ac OR 37 -2 -2 0. AR 48 RG ti VA 83 1- 0- 00 T [address] 95 20 20 0 PH 9 S AT 17 14 14 AR KE IN 7 MA LL CY Y 20 # MG 48 47 TA BL ET TI 57 06 06 3 90 30 KM 68 BU Ac ZA 66 -2 -2 0. AR 51 RG ti NI 40 0- 0- 00 T 18 ES ve DI 50 20 20 0 PH 3 S NE 38 14 14 AR KE 9 MA LL HC CY Y L # 4 MG 48 47 TA BL ET GA 59 06 06 11 85 25 KM 68 PA Ac OA 31 -1 -1 .0 AR 51 RS ti IR 00 1 6- T 09 ON ve 57 20 20 PH 4 S HF 92 14 14 AR JE A 2 MA RE 90 CY MY # C MC G 48 IN 47 CASTELAN LE R ME 00 09 06 6 60 30 KM 68 CASTELAN Ac TO 37 -1 -0 0. AR 48 LL ti GA 80 9 9 T 97 ve OL 03 20 20 0 PH 4 DE OL 21 13 14 AR BR 0 MA A TA CY K RT # RA TE 48 47 50 MG TA B NO 00 03 06 11 15 30 KM 68 BU Ac VO 16 -0 -0 0. AR 48 RG ti LO 93 5 3 T 24 ES ve G 69 20 20 0 PH 7 S WY 61 14 14 AR KE X 9 MA LL 70 CY Y -3 # 0 FL 48 EX 47 PE N SY RN EN 00 03 05 5 60 30 KM 68 BU Ac AL 09 -0 -2 0. AR 48 RG ti AP 30 5 T 24 ES ve RI 02 20 20 0 PH 3 S L 80 14 14 AR KE MA 1 MA LL LE CY Y AT # E 10 48 47 MG TA B GA 67 03 05 5 90 30 KM 68 BU Ac BA 87 -0 -2 0. AR 48 RG ti PE 70 5 T 24 ES ve NT 22 20 20 0 PH 5 S IN 30 14 14 AR KE 5 MA LL 30 CY Y 0 # MG 48 CA 47 PS UL E AT 00 03 05 2 30 30 KM 68 BU Ac OR 37 -2 -2 0. AR 48 RG ti VA 83 1 T [address] 95 20 20 0 PH 9 S AT 17 14 14 AR KE IN 7 MA LL CY Y 20 # MG 48 47 TA BL ET RO 23 01 05 6 30 30 KM 68 BU Ac PI 15 -2 -2 0. AR 47 RG ti NI 50 9- 1- T 34 ES ve RO 12 20 20 0 PH 5 S LE 60 14 14 AR KE 1 MA LL HC CY Y L # 4 MG 48 47 TA BL ET TI 57 01 05 3 90 30 KM 68 BU Ac ZA 66 -2 -2 0. AR 47 RG ti NI 40 9- 1- T 34 ES ve DI 50 20 20 0 PH 6 S NE 38 14 14 AR KE 9 MA LL HC CY Y L # 4 MG 48 47 TA BL ET FU 00 03 05 5 30 30 KM 68 BU Ac RO 37 -0 -2 0. AR 48 RG ti SE 80 5- 1- 00 T 24 ES ve WY 21 20 20 0 PH 4 S DE 61 14 14 AR KE 0 MA LL 40 CY Y # MG 48 TA 47 BL ET AM 00 04 05 5 30 30 KM 68 LE Ac IT 37 -1 -2 0. AR 49 SL ti RI 82 8- 1- 00 T 56 IE ve PT 65 20 20 0 PH 3 YL 00 14 14 AR WI IN 1 MA LM E CY A HC # L 50 48 47 MG TA B NO 00 03 05 11 15 30 KM 68 BU Ac VO 16 -0 -0 0. AR 48 RG ti LO 93 5- 7- 00 T 24 ES ve G 69 20 20 0 PH 7 S WY 61 14 14 AR KE X 9 MA LL 70 CY Y -3 # 0 FL 48 EX 47 PE N SY RN ME 00 09 05 6 60 30 KM 68 CASTELAN Ac TO 37 -1 -0 0. AR 48 LL ti GA 80 9- 5- 00 T 97 ve OL 03 20 20 0 PH 4 DE OL 21 13 14 AR BR 0 MA A TA CY K RT # RA TE 48 47 50 MG TA B MO 42 04 04 0 60 30 KM 22 NE Ac RP 85 -2 -2 0. AR 15 WS ti HI 80 2- 2- 00 T 77 OM ve NE 80 20 20 0 PH 7 E 10 14 14 AR TA CLARK 1 MA RA LF CY J # ER 48 15 47 MG TA BL ET RO 23 01 04 6 30 30 KM 68 BU Ac PI 15 -2 -2 0. AR 47 RG ti NI 50 9- 2- 00 T 34 ES ve RO 12 20 20 0 PH 5 S LE 60 14 14 AR KE 1 MA LL HC CY Y L # 4 MG 48 47 TA BL ET EN 00 03 04 5 60 30 KM 68 BU Ac AL 09 -0 -2 0. AR 48 RG ti AP 30 5- 2- 00 T 24 ES ve RI 02 20 20 0 PH 3 S L 80 14 14 AR KE MA 1 MA LL LE CY Y AT # E 10 48 47 MG TA B FU 00 03 04 5 30 30 KM 68 BU Ac RO 37 -0 -2 0. AR 48 RG ti SE 80 5- 2- 00 T 24 ES ve WY 21 20 20 0 PH 4 S DE 61 14 14 AR KE 0 MA LL 40 CY Y # MG 48 TA 47 BL ET TI 57 01 04 3 90 30 KM 68 BU Ac ZA 66 -2 -2 0. AR 47 RG ti NI 40 9- 2- 00 T 34 ES ve DI 50 20 20 0 PH 6 S NE 38 14 14 AR KE 9 MA LL HC CY Y L # 4 MG 48 47 TA BL ET AT 00 03 04 2 30 30 KM 68 BU Ac OR 37 -2 -2 0. AR 48 RG ti VA 83 1- 2- 00 T [address] 95 20 20 0 PH 9 S AT 17 14 14 AR KE IN 7 MA LL CY Y 20 # MG 48 47 TA BL ET NO 00 01 04 11 30 30 KM 68 BU Ac VO 16 -0 -2 0. AR 46 RG ti LO 96 6- 2- 00 T 78 ES ve G 33 20 20 0 PH 2 S 10 91 14 14 AR KE 0 0 MA LL UN CY Y IT # S/ ML 48 47 FL EX PE N GA 67 03 04 5 90 30 KM 68 BU Ac BA 87 -0 -2 0. AR 48 RG ti PE 70 5- 2- 00 T 24 ES ve NT 22 20 20 0 PH 5 S IN 30 14 14 AR KE 5 MA LL 30 CY Y 0 # MG 48 CA 47 PS UL E HY 00 04 04 0 12 30 CASTELAN [address] 59 -1 -1 00 RO 73 WS ti OC 12 8- 8- .0 LD 05 OM ve OD 61 20 20 00 E ON 20 14 14 CL TA -A 5 IN RA CE IC J TA WY PH NO AR PH MA N CY 10 -3 25 AM 00 04 04 5 30 30 KM 68 LE Ac IT 60 -1 -1 0. AR 49 SL ti RI 32 8- 8- 00 T 56 IE ve PT 21 20 20 0 PH 3 YL 42 14 14 AR WI IN 1 MA LM E CY A HC # L 50 48 47 MG TA B ME 00 09 03 6 60 30 KM 68 CASTELAN Ac TO 37 -1 -2 0. AR 48 LL ti GA 80 9- 7- 00 T 97 ve OL 03 20 20 0 PH 4 DE OL 21 13 14 AR BR 0 MA A TA CY K RT # RA TE 48 47 50 MG TA B MO 42 03 03 0 60 30 KM 22 NE Ac RP 85 -2 -2 0. AR 15 WS ti HI 80 1- 6- 00 T 70 OM ve NE 80 20 20 0 PH 5 E 10 14 14 AR TA CLARK 1 MA RA LF CY J # ER 48 15 47 MG TA BL ET HY 00 03 03 0 12 30 CASTELAN [address] 59 -2 -2 00 RO 47 WS ti OC 12 1- 1- .0 LD 62 OM ve OD 61 20 20 00 E ON 20 14 14 CL TA -A 5 IN RA CE IC J TA WY PH NO AR PH MA N CY 10 -3 25 EN 00 03 03 5 60 30 KM 68 BU Ac AL 09 -0 -0 0. AR 48 RG ti AP 30 5- 5- 00 T 24 ES ve RI 02 20 20 0 PH 3 S L 80 14 14 AR KE MA 1 MA LL LE CY Y AT # E 10 48 47 MG TA B GA 67 03 03 5 90 30 KM 68 BU Ac BA 87 -0 -0 0. AR 48 RG ti PE 70 5- 5- 00 T 24 ES ve NT 22 20 20 0 PH 5 S IN 30 14 14 AR KE 5 MA LL 30 CY Y 0 # MG 48 CA 47 PS UL E AM 00 03 03 5 30 30 KM 68 BU Ac IT 60 -0 -0 0. AR 48 RG ti RI 32 5- 5- 00 T 24 ES ve PT 21 20 20 0 PH 6 S YL 42 14 14 AR KE IN 1 MA LL E CY Y HC # L 50 48 47 MG TA B FU 00 03 03 5 30 30 KM 68 BU Ac RO 37 -0 -0 0. AR 48 RG ti SE 80 5- 5- 00 T 24 ES ve WY 21 20 20 0 PH 4 S DE 61 14 14 AR KE 0 MA LL 40 CY Y # MG 48 TA 47 BL ET TI 57 01 03 3 90 30 KM 68 BU Ac ZA 66 -2 -0 0. AR 47 RG ti NI 40 9- 5- 00 T 34 ES ve DI 50 20 20 0 PH 6 S NE 38 14 14 AR KE 9 MA LL HC CY Y L # 4 MG 48 47 TA BL ET RO 23 01 03 6 30 30 KM 68 BU Ac PI 15 -2 -0 0. AR 47 RG ti NI 50 9- 5- 00 T 34 ES ve RO 12 20 20 0 PH 5 S LE 60 14 14 AR KE 1 MA LL HC CY Y L # 4 MG 48 47 TA BL ET NO 00 01 03 11 30 30 KM 68 BU Ac VO 16 -0 -0 0. AR 46 RG ti LO 96 6- 5- 00 T 78 ES ve G 33 20 20 0 PH 2 S 10 91 14 14 AR KE 0 0 MA LL UN CY Y IT # S/ ML 48 47 FL EX PE N HY 00 02 02 0 12 30 CASTELAN [address] 59 -2 -2 00 RO 20 RS ti OC 12 1- 1- .0 LD 65 ON ve OD 61 20 20 00 S ON 20 14 14 CL JE -A 5 IN RE CE IC MY TA C WY PH NO AR PH MA N CY 10 -3 25 MO 00 02 02 0 60 30 CASTELAN 57 PA Ac RP 40 -2 -2 0. RO 20 RS ti HI 68 1- 1- 00 LD 66 ON ve NE 31 20 20 0 S 50 14 14 CL JE CLARK 1 IN RE LF IC MY C ER PH AR 15 MA CY MG TA BL ET AM 00 02 02 0 30 10 CSATELAN 57 PA Ac OX 78 -2 -2 0. RO 20 RS ti IC 12 1- 1- 00 LD 72 ON ve IL 61 20 20 0 S LI 30 14 14 CL JE N 5 IN RE 50 IC MY 0 C MG PH AR CA MA PS CY UL E BE 67 02 02 0 30 10 CASTELAN 57 PA Ac NZ 87 -2 -2 0. RO 20 RS ti ON 70 1- 1- 00 LD 73 ON ve AT 10 20 20 0 S AT 50 14 14 CL JE E 5 IN RE 10 IC MY 0 C MG PH AR CA MA PS CY UL E AT 00 09 02 5 30 30 KM 68 PA Ac OR 37 -1 -1 0. AR 43 RS ti VA 82 8- 2- 00 T [address] 01 20 20 0 PH 9 S AT 70 13 14 AR JE IN 5 MA RE CY MY 20 # C MG 48 47 TA BL ET NO 00 11 02 11 15 30 KM 68 PA Ac VO 16 -1 -0 0. AR 45 RS ti LO 93 5- 7- 00 T 50 ON ve G 69 20 20 0 PH 2 S W[place] 61 13 14 AR JE X 9 MA RE 70 CY MY -3 # C 0 FL 48 EX 47 PE N SY RN AM 00 07 02 5 60 30 KM 68 PA Ac IT 60 -0 -0 0. AR 41 RS ti RI 32 5- 6- 00 T 93 ON ve PT 21 20 20 0 PH 4 S YL 42 13 14 AR JE IN 1 MA RE E CY MY HC # C L 50 48 47 MG TA B 00 02 02 0 90 30 KM 44 MA Ac 40 -0 -0 0. AR 53 LI ti 60 6- 6 00 T 41 K ve 36 20 20 0 PH 9 CASTELAN 70 14 14 AR MM 1 MA AD CY U # 48 47 NO 00 01 02 11 30 30 KM 68 BU Ac VO 16 -0 -0 0. AR 46 RG ti LO 96 6- 6- 00 T 78 ES ve G 33 20 20 0 PH 2 S 10 91 14 14 AR KE 0 0 MA LL UN CY Y IT # S/ ML 48 47 FL EX PE N RO 23 01 01 6 30 30 KM 68 BU Ac PI 15 -2 -2 0. AR 47 RG ti NI 50 9- 9 T 34 ES ve RO 12 20 20 0 PH 5 S LE 60 14 14 AR KE 1 MA LL HC CY Y L # 4 MG 48 47 TA BL ET TI 57 01 01 3 90 30 KM 68 BU Ac ZA 66 -2 -2 0. AR 47 RG ti NI 40 9 T 34 ES ve DI 50 20 20 0 PH 6 S NE 38 14 14 AR KE 9 MA LL HC CY Y L # 4 MG 48 47 TA BL ET EN 00 07 01 5 60 30 KM 68 PA Ac AL 09 -0 -2 0. AR 41 RS ti AP 30 T 93 ON ve RI 02 20 20 0 PH 6 S L 80 13 14 AR JE MA 1 MA RE LE CY MY AT # C E 10 48 47 MG TA B GA 67 09 01 11 90 30 KM 68 PA Ac BA 87 -2 -2 0. AR 44 RS ti PE 70 T 06 ON ve NT 22 20 20 0 PH 0 S IN 30 13 14 AR JE 5 MA RE 30 CY MY 0 # C MG 48 CA 47 PS UL E ME 00 09 01 11 60 30 KM 68 PA Ac TO 37 -1 -2 0. AR 43 RS ti GA 80 9 9 T 88 ON ve OL 03 20 20 0 PH 2 S OL 21 13 14 AR JE 0 MA RE TA CY MY RT # C RA TE 48 47 50 MG TA B FU 00 07 01 5 30 30 KM 68 PA Ac RO 37 -0 -2 0. AR 41 RS ti SE 80 5 9 T 93 ON ve W[place] 21 20 20 0 PH 2 S DE 61 13 14 AR JE 0 MA RE 40 CY MY # C MG 48 TA 47 BL ET AT 00 09 01 5 30 30 KM 68 PA Ac OR 37 -1 -1 0. AR 43 RS ti VA 82 8- 6- 00 T [address] 01 20 20 0 PH 9 S AT 70 13 14 AR JE IN 5 MA RE CY MY 20 # C MG 48 47 TA BL ET AM 00 07 01 5 60 30 KM 68 PA Ac IT 60 -0 -0 0. AR 41 RS ti RI 32 5- 6- 00 T 93 ON ve PT 21 20 20 0 PH 4 S YL 42 13 14 AR JE IN 1 MA RE E CY MY HC # C L 50 48 47 MG TA B NO 00 01 01 11 30 30 KM 68 BU Ac VO 16 -0 -0 0. AR 46 RG ti LO 96 6- 6- 00 T 78 ES ve G 33 20 20 0 PH 2 S 10 91 14 14 AR KE 0 0 MA LL UN CY Y IT # S/ ML 48 47 FL EX PE N HY 00 12 12 0 12 30 CASTELAN [address] 60 -3 -3 00 RO 75 RS ti OC 33 0- 0- .0 LD 70 ON ve OD 88 20 20 00 S ON 73 13 13 CL JE -A 2 IN RE CE IC MY TA C WY PH NO AR PH MA N CY 10 -3 25 MO 00 12 12 0 60 30 CASTELAN 56 PA Ac RP 40 -3 -3 0. RO 75 RS ti HI 68 0- 0- 00 LD 69 ON ve NE 31 20 20 0 S 50 13 13 CL JE CLARK 1 IN RE LF IC MY C ER PH AR 15 MA CY MG TA BL ET EN 00 07 12 5 60 30 KM 68 PA Ac AL 09 -0 -2 0. AR 41 RS ti AP 30 5- 7- 00 T 93 ON ve RI 02 20 20 0 PH 6 S L 80 13 13 AR JE MA 1 MA RE LE CY MY AT # C E 10 48 47 MG TA B RO 43 07 12 5 30 30 KM 68 PA Ac PI 54 -0 -2 0. AR 41 RS ti NI 70 5- 7- 00 T 94 ON ve RO 27 20 20 0 PH 0 S LE 31 13 13 AR JE 0 MA RE HC CY MY L # C 4 MG 48 47 TA BL ET TI 57 07 12 5 90 30 KM 68 PA Ac ZA 66 -0 -2 0. AR 41 RS ti NI 40 5- 7- 00 T 93 ON ve DI 50 20 20 0 PH 3 S NE 38 13 13 AR JE 9 MA RE HC CY MY L # C 4 MG 48 47 TA BL ET ME 00 09 12 11 60 30 KM 68 PA Ac TO 37 -1 -1 0. AR 43 RS ti GA 80 9- 9- 00 T 88 ON ve OL 03 20 20 0 PH 2 S OL 21 13 13 AR JE 0 MA RE TA CY MY RT # C RA TE 48 47 50 MG TA B AT 00 09 12 5 30 30 KM 68 PA Ac OR 37 -1 -1 0. AR 43 RS ti VA 82 8- 9- 00 T [address] 01 20 20 0 PH 9 S AT 70 13 13 AR JE IN 5 MA RE CY MY 20 # C MG 48 47 TA BL ET FU 00 07 12 5 30 30 KM 68 PA Ac RO 37 -0 -1 0. AR 41 RS ti SE 80 5- 9- 00 T 93 ON ve [place] 21 20 20 0 PH 2 S DE 61 13 13 AR JE 0 MA RE 40 CY MY # C MG 48 TA 47 BL ET GA 67 09 12 11 90 30 KM 68 PA Ac BA 87 -2 -1 0. AR 44 RS ti PE 70 5- 9- 00 T 06 ON ve NT 22 20 20 0 PH 0 S IN 30 13 13 AR JE 5 MA RE 30 CY MY 0 # C MG 48 CA 47 PS UL E NO 00 11 12 11 15 30 KM 68 PA Ac VO 16 -1 -1 0. AR 45 RS ti LO 93 5- 2- 00 T 50 ON ve G 69 20 20 0 PH 2 S [place] 61 13 13 AR JE X 9 MA RE 70 CY MY -3 # C 0 FL 48 EX 47 PE N SY RN MU 45 12 12 1 22 14 KM 68 PA Ac PI 80 -0 -0 0. AR 45 RS ti RO 20 2- 4- 00 T 95 ON ve CI 11 20 20 0 PH 7 S N 22 13 13 AR JE 2% 2 MA RE CY MY OI # C NT ME 48 NT 47 MU 45 12 12 1 22 30 CASTELAN 56 PA Ac PI 80 -0 -0 0. RO 55 RS ti RO 20 2- 2- 00 LD 87 ON ve CI 11 20 20 0 S N 22 13 13 CL JE 2% 2 IN RE IC MY OI C NT PH ME AR NT MA CY 00 12 12 0 12 30 CASTELAN 56 PA Ac 40 -0 -0 00 RO 55 RS ti 60 2- 2- .0 LD 86 ON ve 36 20 20 00 S 30 13 13 CL JE 5 IN RE IC MY C PH AR MA CY CLARK 53 12 12 0 30 15 CASTELAN 56 PA Ac LF 74 -0 -0 0. RO 55 RS ti AM 60 2- 2- 00 LD 88 ON ve ET 27 20 20 0 S HO 20 13 13 CL JE XA 5 IN RE ZO IC MY LE C -T PH MP AR MA DS CY TA BL ET MO 00 12 12 0 60 30 CASTELAN 56 PA Ac RP 40 -0 -0 0. RO 55 RS ti HI 68 2- 2- 00 LD 85 ON ve NE 31 20 20 0 S 50 13 13 CL JE CLARK 1 IN RE LF IC MY C ER PH AR 15 MA CY MG TA BL ET TI 57 07 11 5 90 30 KM 68 PA Ac ZA 66 -0 -2 0. AR 41 RS ti NI 40 5- 9- 00 T 93 ON ve DI 50 20 20 0 PH 3 S NE 38 13 13 AR JE 9 MA RE HC CY MY L # C 4 MG 48 47 TA BL ET EN 64 07 11 5 60 30 KM 68 PA Ac AL 67 -0 -2 0. AR 41 RS ti AP 90 5- 9- 00 T 93 ON ve RI 92 20 20 0 PH 6 S L 50 13 13 AR JE MA 2 MA RE LE CY MY AT # C E 10 48 47 MG TA B RO 23 07 11 5 30 30 KM 68 PA Ac PI 15 -0 -2 0. AR 41 RS ti NI 50 5- 9- 00 T 94 ON ve RO 12 20 20 0 PH 0 S LE 60 13 13 AR JE 1 MA RE HC CY MY L # C 4 MG 48 47 TA BL ET ME 00 09 11 11 60 30 KM 68 PA Ac TO 37 -1 -2 0. AR 43 RS ti GA 80 9- 0- 00 T 88 ON ve OL 03 20 20 0 PH 2 S OL 21 13 13 AR JE 0 MA RE TA CY MY RT # C RA TE 48 47 50 MG TA B AT 00 09 11 5 30 30 KM 68 PA Ac OR 37 -1 -2 0. AR 43 RS ti VA 83 8- 0- 00 T [address] 95 20 20 0 PH 9 S AT 17 13 13 AR JE IN 7 MA RE CY MY 20 # C MG 48 47 TA BL ET FU 00 06 11 5 30 30 KM 68 PA Ac RO 37 -0 -2 0. AR 41 RS ti SE 80 7- 0- 00 T 23 ON ve W[place] 21 20 20 0 PH 8 S DE 61 13 13 AR JE 0 MA RE 40 CY MY # C MG 48 TA 47 BL ET GA 67 09 11 11 90 30 KM 68 PA Ac BA 87 -2 -2 0. AR 44 RS ti PE 70 5- 0- 00 T 06 ON ve NT 22 20 20 0 PH 0 S IN 30 13 13 AR JE 1 MA RE 30 CY MY 0 # C MG 48 CA 47 PS UL E NO 00 11 11 11 15 30 KM 68 PA Ac VO 16 -1 -1 0. AR 45 RS ti LO 93 5- 5- 00 T 50 ON ve G 69 20 20 0 PH 2 S [place] 61 13 13 AR JE X 9 MA RE 70 CY MY -3 # C 0 FL 48 EX 47 PE N SY RN AM 00 07 11 5 60 30 KM 68 PA Ac IT 60 -0 -0 0. AR 41 RS ti RI 32 5- 7- 00 T 93 ON ve PT 21 20 20 0 PH 4 S YL 42 13 13 AR JE IN 1 MA RE E CY MY HC # C L 50 48 47 MG TA B RO 23 07 11 5 30 30 KM 68 PA Ac PI 15 -0 -0 0. AR 41 RS ti NI 50 5- 1- 00 T 94 ON ve RO 12 20 20 0 PH 0 S LE 60 13 13 AR JE 1 MA RE HC CY MY L # C 4 MG 48 47 TA BL ET TI 57 07 11 5 90 30 KM 68 PA Ac ZA 66 -0 -0 0. AR 41 RS ti NI 40 5- 1- 00 T 93 ON ve DI 50 20 20 0 PH 3 S NE 38 13 13 AR JE 9 MA RE HC CY MY L # C 4 MG 48 47 TA BL ET EN 64 07 11 5 60 30 KM 68 PA Ac AL 67 -0 -0 0. AR 41 RS ti AP 90 5- 1- 00 T 93 ON ve RI 92 20 20 0 PH 6 S L 50 13 13 AR JE MA 2 MA RE LE CY MY AT # C E 10 48 47 MG TA B 00 10 10 0 12 30 CASTELAN 56 PA Ac 40 -3 -3 00 RO 33 RS ti 60 0- 0- .0 LD 04 ON ve 36 20 20 00 S 30 13 13 CL JE 5 IN RE IC MY C PH AR MA CY MO 00 10 10 0 60 30 CASTELAN 56 PA Ac RP 40 -3 -3 0. RO 33 RS ti HI 68 0- 0- 00 LD 05 ON ve NE 31 20 20 0 S 50 13 13 CL JE CLARK 1 IN RE LF IC MY C ER PH AR 15 MA CY MG TA BL ET FU 00 06 10 5 30 30 KM 68 PA Ac RO 37 -0 -2 0. AR 41 RS ti SE 80 7- 3- 00 T 23 ON ve [place] 21 20 20 0 PH 8 S DE 61 13 13 AR JE 0 MA RE 40 CY MY # C MG 48 TA 47 BL ET AT 00 09 10 5 30 30 KM 68 PA Ac OR 37 -1 -2 0. AR 43 RS ti VA 82 8- 3- 00 T [address] 01 20 20 0 PH 9 S AT 77 13 13 AR JE IN 7 MA RE CY MY 20 # C MG 48 47 TA BL ET 14 09 10 11 90 30 KM 68 PA Ac 55 -2 -2 0. AR 44 RS ti 00 5- 3- 00 T 06 ON ve 51 20 20 0 PH 0 S 20 13 13 AR JE 4 MA RE CY MY # C 48 47 ME 00 09 10 11 60 30 KM 68 PA Ac TO 37 -1 -2 0. AR 43 RS ti GA 80 9- 3- 00 T 88 ON ve OL 03 20 20 0 PH 2 S OL 21 13 13 AR JE 0 MA RE TA CY MY RT # C RA TE 48 47 50 MG TA B 00 10 10 0 12 30 CASTELAN 56 PA Ac 40 -0 -0 00 RO 15 RS ti 60 3- 3- .0 LD 96 ON ve 36 20 20 00 S 30 13 13 CL JE 5 IN RE IC MY C PH AR MA CY RO 43 07 10 5 30 30 KM 68 PA Ac PI 54 -0 -0 0. AR 41 RS ti NI 70 5- 1- 00 T 94 ON ve RO 27 20 20 0 PH 0 S LE 31 13 13 AR JE 0 MA RE HC CY MY L # C 4 MG 48 47 TA BL ET EN 64 04 10 5 60 30 KM 68 PA Ac AL 67 -1 -0 0. AR 39 RS ti AP 90 5- 1- 00 T 88 ON ve RI 92 20 20 0 PH 7 S L 50 13 13 AR JE MA 2 MA RE LE CY MY AT # C E 10 48 47 MG TA B ON 53 10 10 1 50 25 KM 88 PA Ac ET 88 -0 -0 0. AR 04 RS ti OU 50 4- 1- 00 T 51 ON ve CH 24 20 20 0 PH 8 S 45 12 13 AR JE UL 0 MA RE TR CY MY A # C TE ST [address] RI PS TI 57 07 10 5 90 30 KM 68 PA Ac ZA 66 -0 -0 0. AR 41 RS ti NI 40 5- 1- 00 T 93 ON ve DI 50 20 20 0 PH 3 S NE 31 13 13 AR JE 8 MA RE HC CY MY L # C 4 MG 48 47 TA BL ET 14 09 09 11 90 30 KM 68 PA Ac 55 -2 -2 0. AR 44 RS ti 00 5- 5- 00 T 06 ON ve 51 20 20 0 PH 0 S 20 13 13 AR JE 4 MA RE CY MY # C 48 47 ME 00 09 09 11 60 30 KM 68 PA Ac TO 37 -1 -1 0. AR 43 RS ti GA 80 9- 9- 00 T 88 ON ve OL 03 20 20 0 PH 2 S OL 21 13 13 AR JE 0 MA RE TA CY MY RT # C RA TE 48 47 50 MG TA B AT 00 09 09 5 30 30 KM 68 PA Ac OR 37 -1 -1 0. AR 43 RS ti VA 82 8- 8- 00 T [address] 01 20 20 0 PH 9 S AT 77 13 13 AR JE IN 7 MA RE CY MY 20 # C MG 48 47 TA BL ET FU 00 06 09 5 30 30 KM 68 PA Ac RO 37 -0 -1 0. AR 41 RS ti SE 80 7- 8- 00 T 23 ON ve [place] 21 20 20 0 PH 8 S DE 61 13 13 AR JE 0 MA RE 40 CY MY # C MG 48 TA 47 BL ET 00 09 09 0 12 30 CASTELAN 55 PA Ac 40 -0 -0 00 RO 93 RS ti 60 5- 5- .0 LD 82 ON ve 36 20 20 00 S 30 13 13 CL JE 5 IN RE IC MY C PH AR MA CY 00 09 09 11 15 37 CASTELAN 55 PA Ac 16 -0 -0 0. RO 93 RS ti 96 5- 5- 00 LD 83 ON ve 43 20 20 0 S 91 13 13 CL JE 0 IN RE IC MY C PH AR MA CY NO 00 09 09 11 60 40 CASTELAN 55 PA Ac VO 16 -0 -0 .0 RO 93 RS ti LO 96 5- 5- 00 LD 84 ON ve G 33 20 20 S 10 91 13 13 CL JE 0 0 IN RE UN IC MY IT C S/ PH ML AR MA FL CY EX PE N RO 43 07 08 5 30 30 KM 68 PA Ac PI 54 -0 -2 0. AR 41 RS ti NI 70 5- 3- 00 T 94 ON ve RO 27 20 20 0 PH 0 S LE 31 13 13 AR JE 0 MA RE HC CY MY L # C 4 MG 48 47 TA BL ET EN 64 04 08 5 60 30 KM 68 PA Ac AL 67 -1 -2 0. AR 39 RS ti AP 90 5- 3- 00 T 88 ON ve RI 92 20 20 0 PH 7 S L 50 13 13 AR JE MA 2 MA RE LE CY MY AT # C E 10 48 47 MG TA B 14 02 08 3 90 30 KM 68 PA Ac 55 -1 -2 0. AR 38 RS ti 00 4- 3- 00 T 26 ON ve 51 20 20 0 PH 9 S 20 13 13 AR JE 4 MA RE CY MY # C 48 47 FU 00 06 08 5 30 30 KM 68 PA Ac RO 37 -0 -0 0. AR 41 RS ti SE 80 7- 6- 00 T 23 ON ve [place] 21 20 20 0 PH 8 S DE 61 13 13 AR JE 0 MA RE 40 CY MY # C MG 48 TA 47 BL ET TI 57 07 08 5 90 30 KM 68 PA Ac ZA 66 -0 -0 0. AR 41 RS ti NI 40 5- 6- 00 T 93 ON ve DI 50 20 20 0 PH 3 S NE 31 13 13 AR JE 8 MA RE HC CY MY L # C 4 MG 48 47 TA BL ET 00 08 08 0 12 30 CASTELAN 55 PA Ac 40 -0 -0 00 RO 67 RS ti 60 2- 2- .0 LD 77 ON ve 36 20 20 00 S 30 13 13 CL JE 5 IN RE IC MY C PH AR MA CY 14 02 07 3 90 30 KM 68 PA Ac 55 -1 -2 0. AR 38 RS ti 00 4- 6- 00 T 26 ON ve 51 20 20 0 PH 9 S 20 13 13 AR JE 4 MA RE CY MY # C 48 47 RO 43 07 07 5 30 30 KM 68 PA Ac PI 54 -0 -2 0. AR 41 RS ti NI 70 5- 6- 00 T 94 ON ve RO 27 20 20 0 PH 0 S LE 31 13 13 AR JE 0 MA RE HC CY MY L # C 4 MG 48 47 TA BL ET EN 64 04 07 5 60 30 KM 68 PA Ac AL 67 -1 -2 0. AR 39 RS ti AP 90 5- 6- 00 T 88 ON ve RI 92 20 20 0 PH 7 S L 50 13 13 AR JE MA 2 MA RE LE CY MY AT # C E 10 48 47 MG TA B FU 00 06 07 5 30 30 KM 68 PA Ac RO 37 -0 -0 0. AR 41 RS ti SE 80 7- 8- 00 T 23 ON ve [place] 21 20 20 0 PH 8 S DE 61 13 13 AR JE 0 MA RE 40 CY MY # C MG 48 TA 47 BL ET MU 45 07 07 2 22 20 KM 68 PA Ac PI 80 -0 -0 0. AR 41 RS ti RO 20 5- 8- 00 T 95 ON ve CI 11 20 20 0 PH 2 S N 22 13 13 AR JE 2% 2 MA RE CY MY OI # C NT ME 48 NT 47 00 07 07 0 12 30 CASTELAN 55 PA Ac 40 -0 -0 00 RO 47 RS ti 60 5- 5- .0 LD 41 ON ve 36 20 20 00 S 30 13 13 CL JE 5 IN RE IC MY C PH AR MA CY TI 00 07 07 5 90 30 KM 68 PA Ac ZA 18 -0 -0 0. AR 41 RS ti NI 54 5- 5- 00 T 93 ON ve DI 40 20 20 0 PH 3 S NE 01 13 13 AR JE 0 MA RE HC CY MY L # C 4 MG 48 47 TA BL ET 14 02 06 3 90 30 KM 68 PA Ac 55 -1 -2 0. AR 38 RS ti 00 4- 8- 00 T 26 ON ve 51 20 20 0 PH 9 S 20 13 13 AR JE 4 MA RE CY MY # C 48 47 EN 64 04 06 5 60 30 KM 68 PA Ac AL 67 -1 -2 0. AR 39 RS ti AP 90 5- 8- 00 T 88 ON ve RI 92 20 20 0 PH 7 S L 50 13 13 AR JE MA 3 MA RE LE CY MY AT # C E 10 48 47 MG TA B FU 00 06 06 5 30 30 KM 68 PA Ac RO 37 -0 -0 0. AR 41 RS ti SE 80 7- 7- 00 T 23 ON ve [place] 21 20 20 0 PH 8 S DE 61 13 13 AR JE 0 MA RE 40 CY MY # C MG 48 TA 47 BL ET 00 06 06 0 12 30 CASTELAN 55 PA Ac 40 -0 -0 00 RO 28 RS ti 60 7- 7- .0 LD 79 ON ve 36 20 20 00 S 30 13 13 CL JE 5 IN RE IC MY C PH AR MA CY 14 02 05 3 90 30 KM 68 PA Ac 55 -1 -3 0. AR 38 RS ti 00 4- 1- 00 T 26 ON ve 51 20 20 0 PH 9 S 20 13 13 AR JE 4 MA RE CY MY # C 48 47 EN 64 04 05 5 60 30 KM 68 PA Ac AL 67 -1 -3 0. AR 39 RS ti AP 90 5- 1- 00 T 88 ON ve RI 92 20 20 0 PH 7 S L 50 13 13 AR JE MA 3 MA RE LE CY MY AT # C E 10 48 47 MG TA B 00 05 05 0 12 30 CASTELAN 55 PA Ac 40 -1 -1 00 RO 08 RS ti 60 0- 0- .0 LD 11 ON ve 36 20 20 00 S 30 13 13 CL JE 5 IN RE IC MY C PH AR MA CY TI 55 11 05 5 90 30 CASTELAN 53 PA Ac ZA 11 -1 -1 0. RO 70 RS ti NI 10 4- 0- 00 LD 52 ON ve DI 18 20 20 0 S NE 01 12 13 CL JE 0 IN RE HC IC MY L C 4 PH MG AR MA TA CY BL ET EN 64 04 05 5 60 30 KM 68 PA Ac AL 67 -1 -0 0. AR 39 RS ti AP 90 5- 1- 00 T 88 ON ve RI 92 20 20 0 PH 7 S L 50 13 13 AR JE SERA 3 SERA RE LE CY MY AT # C E 10 48 47 MG TA B 00 04 04 0 12 30 CASTELAN 54 PA Ac 40 -1 -1 00 RO 85 RS ti 60 1- 1- .0 LD 53 ON ve 36 20 20 00 S 30 13 13 CL JE 5 IN RE IC MY C PH AR MA CY 00 03 03 0 12 30 CASTELAN 54 PA Ac 59 -1 -1 00 RO 60 RS ti 12 1- 1- .0 LD 62 ON ve 60 20 20 00 S 90 13 13 CL JE 5 IN RE IC MY C PH AR MA CY DI 00 02 02 00 30 30 K- 68 PA Ac GO 52 -1 -2 .0 MA 91 YN ti X 71 7- 6- 00 RT 76 E ve 12 32 20 20 6 VA 5 40 10 10 PH UG MC 1 AR HN G M W TA #7 BL 17 ET 4 00 12 02 00 30 30 K- 68 DU Ac 17 -1 -2 .0 MA 87 NN ti 25 1- 6- 00 RT 88 IN ve 66 20 20 2 G 46 09 10 PH MA 0 AR LE M SH #7 EA 17 4 EN 00 06 02 02 60 30 K- 68 DU Ac AL 09 -1 -2 .0 MA 76 NN ti AP 30 1- 6- 00 RT 44 IN ve RI 02 20 20 7 G L 90 09 10 PH MA MA 1 AR LE LE M SH AT #7 EA E 17 20 4 MG TA B 00 06 02 05 15 30 K- 88 DU Ac 16 -1 -2 .0 MA 10 NN ti 93 8- 6- 00 RT 13 IN ve 47 20 20 1 G 71 09 10 PH MA 8 AR LE M SH #7 EA 17 4 GL 00 06 02 04 12 60 K- 68 DU Ac YB 09 -1 -1 0. MA 76 NN ti UR 39 8- 1- 00 RT 76 IN ve ID 36 20 20 0 7 G E 40 09 10 PH MA 5 1 AR LE MG M SH #7 EA TA 17 BL 4 ET FU 00 06 02 02 30 30 K- 68 DU Ac RO 37 -1 -1 .0 MA 76 NN ti SE 80 1- - RT 44 IN ve [place] 21 20 20 8 G DE 61 09 10 PH MA 0 AR LE 40 M SH #7 EA MG 17 4 TA BL ET LY 00 01 02 00 12 30 EC 46 WI Ac RI 07 -2 -1 0. ON 88 ND ti CA 11 7- 1- 00 OM 94 SO ve 01 20 20 0 Y 2 R [address] RO 0 8 UG BE MG RT CO E CA PS IN UL C E TR 65 01 02 00 90 30 EC 46 WI Ac AM 16 -2 -1 .0 ON 88 ND ti AD 20 7- 1- 00 OM 94 SO ve OL 62 20 20 Y 1 R [address] RO HC 1 UG BE L RT 50 CO E MG IN C TA BL ET DO 00 01 02 00 90 30 EC 73 WI Ac XE 37 -2 -1 .0 ON 10 ND ti PI 83 7- 1- 00 OM 25 SO ve N 12 20 20 Y 1 R [address] RO 1 UG BE MG RT CO E CA PS IN UL C E ME 00 08 02 05 60 30 K- 68 PA Ac TO 09 -3 -1 .0 MA 80 YN ti GA 30 1- 1- 00 RT 99 E ve OL 73 20 20 6 VA OL 31 09 10 PH UG 0 AR HN TA M W RT #7 RA 17 TE 4 50 MG TA B DI 00 01 01 00 30 30 K- 68 DU Ac GO 52 -1 -2 .0 MA 89 NN ti X 71 8- 8- 00 RT 85 IN ve 12 32 20 20 0 G 5 40 10 10 PH MA MC 1 AR LE G M SH TA #7 EA BL 17 ET 4 00 12 01 00 90 22 K- 68 DU Ac 55 -3 -2 .0 MA 88 NN ti 50 1- 8- 00 RT 95 IN ve 05 20 20 8 G 90 09 10 PH MA 5 AR LE M SH #7 EA 17 4 AC 64 06 01 01 30 30 K- 68 DU Ac TO 76 -1 -1 .0 MA 76 NN ti S 40 1- 4- 00 RT 44 IN ve 45 45 20 20 5 G 12 09 10 PH MA MG 4 AR LE M SH TA #7 EA BL 17 ET 4 64 01 01 02 30 30 K- 68 DU Ac 72 -1 -1 .0 MA 67 NN ti 00 3- 4- 00 RT 01 IN ve 20 20 20 1 G 61 09 10 PH MA 0 AR LE M SH #7 EA 17 4 EN 00 06 01 01 60 30 K- 68 DU Ac AL 09 -1 -1 .0 MA 76 NN ti AP 30 1- 4- 00 RT 44 IN ve RI 02 20 20 7 G L 90 09 10 PH MA MA 1 AR LE LE M SH AT #7 EA E 17 20 4 MG TA B FU 00 06 01 01 30 30 K- 68 DU Ac RO 37 -1 -1 .0 MA 76 NN ti SE 80 1- 4- 00 RT 44 IN ve W[place] 21 20 20 8 G DE 61 09 10 PH MA 0 AR LE 40 M SH #7 EA MG 17 4 TA BL ET 00 06 01 04 15 30 K- 88 DU Ac 16 -1 -1 .0 MA 10 NN ti 93 8- 4- 00 RT 13 IN ve 47 20 20 1 G 71 09 10 PH MA 8 AR LE M SH #7 EA 17 4 DI 00 06 01 01 30 30 K- 68 DU Ac GO 52 -1 -1 .0 MA 76 NN ti X 71 1- 4- 00 RT 44 IN ve 25 32 20 20 6 G 0 50 09 10 PH MA MC 1 AR LE G M SH TA #7 EA BL 17 ET 4 TR 65 12 01 00 90 30 EC 46 WI Ac AM 16 -2 -1 .0 ON 87 ND ti AD 20 9- 4- 00 OM 52 SO ve OL 62 20 20 Y 1 R [address] NINA HC 1 UG BE L RT 50 CO E MG IN C TA BL ET 00 12 01 00 15 30 EC 46 WI Ac 59 -2 -1 0. ON 87 ND ti 10 9- 4- 00 OM 52 SO ve 54 20 20 0 Y 0 R [address] WOOD 5 UG BE RT CO E IN C DO 00 12 01 00 90 30 EC 73 WI Ac XE 37 -2 -1 .0 ON 07 ND ti PI 83 9- 4- 00 OM 01 SO ve N 12 20 20 Y 3 R [address] NINA 1 UG BE MG RT CO E CA PS IN UL C E LY 00 12 01 00 12 30 EC 46 WI Ac RI 07 -2 -1 0. ON 87 ND ti CA 11 9- 4- 00 OM 52 SO ve 01 20 20 0 Y 2 R [address] RO 0 8 UG BE MG RT CO E CA PS IN UL C E ME 00 08 01 04 60 30 K- 68 PA Ac TO 09 -3 -1 .0 MA 80 YN ti GA 30 1- 4- 00 RT 99 E ve OL 73 20 20 6 VA OL 31 09 10 PH UG 0 AR HN TA M W RT #7 RA 17 TE 4 50 MG TA B LY 00 11 12 01 12 3 EC 46 WI Ac RI 07 -2 -3 .0 ON 86 ND ti CA 11 4- 1- 00 OM 00 SO ve 01 20 20 Y 8 R [address] RO 0 8 UG BE MG RT CO E CA PS IN UL C E TR 65 11 12 01 9. 3 EC 46 WI Ac AM 16 -2 -3 00 ON 86 ND ti AD 20 4- 1- 0 OM 00 SO ve OL 62 20 20 Y 7 R [address] NINA HC 1 UG BE L RT 50 CO E MG IN C TA BL ET DO 00 11 12 01 9. 3 EC 73 WI Ac XE 37 -2 -3 00 ON 03 ND ti PI 83 4- 1- 0 OM 35 SO ve N 12 20 20 Y 6 R [address] NINA 1 UG BE MG RT CO E CA PS IN UL C E ME 00 08 12 03 60 30 K- 68 PA Ac TO 09 -3 -1 .0 MA 80 YN ti GA 30 1- 7- 00 RT 99 E ve OL 73 20 20 6 VA OL 31 09 09 PH UG 0 AR HN TA M W RT #7 RA 17 TE 4 50 MG TA B AC 64 06 12 00 30 30 K- 68 DU Ac TO 76 -1 -1 .0 MA 76 NN ti S 40 1- 7- 00 RT 44 IN ve 45 45 20 20 5 G 12 09 09 PH MA MG 4 AR LE M SH TA #7 EA BL 17 ET 4 DI 00 06 12 00 30 30 K- 68 DU Ac GO 52 -1 -1 .0 MA 76 NN ti X 71 1- 7- 00 RT 44 IN ve 25 32 20 20 6 G 0 50 09 09 PH MA MC 1 AR LE G M SH TA #7 EA BL 17 ET 4 CR 00 06 12 05 30 30 K- 68 DU Ac ES 31 -1 -1 .0 MA 76 NN ti TO 00 8 7- RT 76 IN ve R 75 20 20 5 G 10 19 09 09 PH MA 0 AR LE MG M SH #7 EA TA 17 BL 4 ET EN 00 06 12 00 60 30 K- 68 DU Ac AL 09 -1 -1 .0 MA 76 NN ti AP 30 7- RT 44 IN ve RI 02 20 20 7 G L 90 09 09 PH MA MA 1 AR LE LE M SH AT #7 EA E 17 20 4 MG TA B FU 00 06 12 00 30 30 K- 68 DU Ac RO 37 -1 -1 .0 MA 76 NN ti SE 80 1- 7- 00 RT 44 IN ve [place] 21 20 20 8 G DE 61 09 09 PH MA 0 AR LE 40 M SH #7 EA MG 17 4 TA BL ET 64 06 12 05 30 30 K- 68 DU Ac 72 -1 -1 .0 MA 76 NN ti 00 8- 7- 00 RT 76 IN ve 20 20 20 8 G 61 09 09 PH MA 0 AR LE M SH #7 EA 17 4 GL 00 06 12 03 12 60 K- 68 DU Ac YB 09 -1 -1 0. MA 76 NN ti UR 39 8- 7- 00 RT 76 IN ve ID 36 20 20 0 7 G E 40 09 09 PH MA 5 1 AR LE MG M SH #7 EA TA 17 BL 4 ET BU 00 12 12 00 30 30 K- 68 DU Ac SP 37 -1 -1 .0 MA 87 NN ti IR 81 1- 7- 00 RT 88 IN ve ON 15 20 20 2 G E 00 09 09 PH MA HC 1 AR LE L M SH 10 #7 EA 17 MG 4 TA BL ET BU 00 06 12 05 30 30 K- 68 DU Ac SP 37 -1 -0 .0 MA 76 NN ti IR 81 8- 3- 00 RT 76 IN ve ON 15 20 20 3 G E 00 09 09 PH MA HC 1 AR LE L M SH 10 #7 EA 17 MG 4 TA BL ET TR 65 11 12 00 96 32 EC 46 WI Ac AM 16 -2 -0 .0 ON 86 ND ti AD 20 4- 3- 00 OM 00 SO ve OL 62 20 20 Y 7 R [address] NINA HC 1 UG BE L RT 50 CO E MG IN C TA BL ET DO 00 11 12 00 96 32 EC 73 WI Ac XE 37 -2 -0 .0 ON 03 ND ti PI 83 4- 3- 00 OM 35 SO ve N 12 20 20 Y 6 R [address] WOOD 1 UG BE MG RT CO E CA PS IN UL C E LY 00 11 12 00 12 32 EC 46 WI Ac RI 07 -2 -0 8. ON 86 ND ti CA 11 4- 3- 00 OM 00 SO ve 01 20 20 0 Y 8 R [address] RO 0 8 UG BE MG RT CO E CA PS IN UL C E FU 00 06 11 05 30 30 K- 68 DU Ac RO 37 -1 -1 .0 MA 76 NN ti SE 80 8- 9- 00 RT 77 IN ve W[place] 21 20 20 0 G DE 61 09 09 PH MA 0 AR LE 40 M SH #7 EA MG 17 4 TA BL ET 00 06 11 03 15 30 K- 88 DU Ac 16 -1 -1 .0 MA 10 NN ti 93 8- 9- 00 RT 13 IN ve 47 20 20 1 G 71 09 09 PH MA 8 AR LE M SH #7 EA 17 4 AC 64 06 11 05 30 30 K- 68 DU Ac TO 76 -1 -1 .0 MA 76 NN ti S 40 8- 9- 00 RT 76 IN ve 45 45 20 20 0 G 12 09 09 PH MA MG 4 AR LE M SH TA #7 EA BL 17 ET 4 DI 00 06 11 05 30 30 K- 68 DU Ac GO 52 -1 -1 .0 MA 76 NN ti X 71 8- 9- 00 RT 76 IN ve 25 32 20 20 4 G 0 50 09 09 PH MA MC 1 AR LE G M SH TA #7 EA BL 17 ET 4 EN 00 06 11 05 60 30 K- 68 DU Ac AL 09 -1 -1 .0 MA 76 NN ti AP 30 8- 9- 00 RT 76 IN ve RI 02 20 20 6 G L 90 09 09 PH MA MA 1 AR LE LE M SH AT #7 EA E 17 20 4 MG TA B CR 00 06 11 04 30 30 K- 68 DU Ac ES 31 -1 -1 .0 MA 76 NN ti TO 00 8- 9- 00 RT 76 IN ve R 75 20 20 5 G 10 19 09 09 PH MA 0 AR LE MG M SH #7 EA TA 17 BL 4 ET 64 06 11 04 30 30 K- 68 DU Ac 72 -1 -1 .0 MA 76 NN ti 00 8- 9- 00 RT 76 IN ve 20 20 20 8 G 61 09 09 PH MA 0 AR LE M SH #7 EA 17 4 TR 65 10 11 00 90 30 EC 46 WI Ac AM 16 -2 -0 .0 ON 84 ND ti AD 20 7- 5- 00 OM 59 SO ve OL 62 20 20 Y 2 R [address] WOOD HC 1 UG BE L RT 50 CO E MG IN C TA BL ET LY 00 10 11 00 12 30 EC 46 WI Ac RI 07 -2 -0 0. ON 84 ND ti CA 11 7- 5- 00 OM 59 SO ve 01 20 20 0 Y 3 R [address] RO 0 8 UG BE MG RT CO E CA PS IN UL C E DO 00 10 11 00 90 30 EC 72 WI Ac XE 37 -2 -0 .0 ON 99 ND ti PI 83 7- 5- 00 OM 84 SO ve N 12 20 20 Y 0 R 25 50 09 09 RO 1 UG BE MG RT CO E CA PS IN UL C E ME 00 08 11 02 60 30 K- 68 PA Ac TO 37 -3 -0 .0 MA 80 YN ti GA 80 1- 5- 00 RT 99 E ve OL 03 20 20 6 VA OL 21 09 09 PH UG 0 AR HN TA M W RT #7 RA 17 TE 4 50 MG TA B BU 00 06 10 04 30 30 K- 68 DU Ac SP 37 -1 -2 .0 MA 76 NN ti IR 81 8- 2- 00 RT 76 IN ve ON 15 20 20 3 G E 00 09 09 PH MA HC 1 AR LE L M SH 10 #7 EA 17 MG 4 TA BL ET DI 00 06 10 04 30 30 K- 68 DU Ac GO 52 -1 -2 .0 MA 76 NN ti X 71 8- 2- 00 RT 76 IN ve 25 32 20 20 4 G 0 50 09 09 PH MA MC 1 AR LE G M SH TA #7 EA BL 17 ET 4 AC 64 06 10 04 30 30 K- 68 DU Ac TO 76 -1 -2 .0 MA 76 NN ti S 40 8- 2- 00 RT 76 IN ve 45 45 20 20 0 G 12 09 09 PH MA MG 4 AR LE M SH TA #7 EA BL 17 ET 4 FU 00 06 10 04 30 30 K- 68 DU Ac RO 37 -1 -2 .0 MA 76 NN ti SE 80 8- 2- 00 RT 77 IN ve WY 21 20 20 0 G DE 61 09 09 PH MA 0 AR LE 40 M SH #7 EA MG 17 4 TA BL ET EN 00 06 10 04 60 30 K- 68 DU Ac AL 09 -1 -2 .0 MA 76 NN ti AP 30 8- 2- 00 RT 76 IN ve RI 02 20 20 6 G L 90 09 09 PH MA MA 1 AR LE LE M SH AT #7 EA E 17 20 4 MG TA B 64 06 10 03 30 30 K- 68 DU Ac 72 -1 -2 .0 MA 76 NN ti 00 8- 2- 00 RT 76 IN ve 20 20 20 8 G 61 09 09 PH MA 0 AR LE M SH #7 EA 17 4 GL 00 06 10 02 12 60 K- 68 DU Ac YB 09 -1 -2 0. MA 76 NN ti UR 39 8- 2- 00 RT 76 IN ve ID 36 20 20 0 7 G E 40 09 09 PH MA 5 1 AR LE MG M SH #7 EA TA 17 BL 4 ET CR 00 06 10 03 30 30 K- 68 DU Ac ES 31 -1 -2 .0 MA 76 NN ti TO 00 8- 2- 00 RT 76 IN ve R 75 20 20 5 G 10 19 09 09 PH MA 0 AR LE MG M SH #7 EA TA 17 BL 4 ET ME 00 08 10 01 60 30 K- 68 PA Ac TO 37 -3 -0 .0 MA 80 YN ti GA 80 1- 8- 00 RT 99 E ve OL 03 20 20 6 VA OL 21 09 09 PH UG 0 AR HN TA M W RT #7 RA 17 TE 4 50 MG TA B TR 65 09 10 00 96 32 EC 46 WI Ac AM 16 -2 -0 .0 ON 83 ND ti AD 20 5- 8- 00 OM 04 SO ve OL 62 20 20 Y 5 R [address] RO HC 1 UG BE L RT 50 CO E MG IN C TA BL ET DO 00 09 10 00 96 32 EC 72 WI Ac XE 37 -2 -0 .0 ON 95 ND ti PI 83 5- 8- 00 OM 59 SO ve N 12 20 20 Y 9 R [address] RO 1 UG BE MG RT CO E CA PS IN UL C E LY 00 09 10 00 12 32 EC 46 WI Ac RI 07 -2 -0 8. ON 83 ND ti CA 11 5- 8- 00 OM 04 SO ve 01 20 20 0 Y 6 R [address] RO 0 8 UG BE MG RT CO E CA PS IN UL C E FU 00 06 09 03 30 30 K- 68 DU Ac RO 37 -1 -2 .0 MA 76 NN ti SE 80 8- 4- 00 RT 77 IN ve WY 21 20 20 0 G DE 61 09 09 PH MA 0 AR LE 40 M SH #7 EA MG 17 4 TA BL ET DI 00 06 09 03 30 30 K- 68 DU Ac GO 52 -1 -2 .0 MA 76 NN ti X 71 8- 4- 00 RT 76 IN ve 25 32 20 20 4 G 0 50 09 09 PH MA MC 1 AR LE G M SH TA #7 EA BL 17 ET 4 CR 00 06 09 02 30 30 K- 68 DU Ac ES 31 -1 -2 .0 MA 76 NN ti TO 00 8- 4- 00 RT 76 IN ve R 75 20 20 5 G 10 19 09 09 PH MA 0 AR LE MG M SH #7 EA TA 17 BL 4 ET 64 06 09 02 30 30 K- 68 DU Ac 72 -1 -2 .0 MA 76 NN ti 00 8- 4- 00 RT 76 IN ve 20 20 20 8 G 61 09 09 PH MA 0 AR LE M SH #7 EA 17 4 EN 00 06 09 03 60 30 K- 68 DU Ac AL 09 -1 -2 .0 MA 76 NN ti AP 30 8- 4- 00 RT 76 IN ve RI 02 20 20 6 G L 90 09 09 PH MA MA 1 AR LE LE M SH AT #7 EA E 17 20 4 MG TA B AC 64 06 09 03 30 30 K- 68 DU Ac TO 76 -1 -2 .0 MA 76 NN ti S 40 8- 4- 00 RT 76 IN ve 45 45 20 20 0 G 12 09 09 PH MA MG 4 AR LE M SH TA #7 EA BL 17 ET 4 BU 00 06 09 03 30 30 K- 68 DU Ac SP 37 -1 -2 .0 MA 76 NN ti IR 81 8- 4- 00 RT 76 IN ve ON 15 20 20 3 G E 00 09 09 PH MA HC 1 AR LE L M SH 10 #7 EA 17 MG 4 TA BL ET 00 06 09 02 15 30 K- 88 DU Ac 16 -1 -1 .0 MA 10 NN ti 93 8- 0- 00 RT 13 IN ve 47 20 20 1 G 71 09 09 PH MA 8 AR LE M SH #7 EA 17 4 DO 00 07 09 01 90 30 EC 72 WI Ac XE 37 -2 -1 .0 ON 88 ND ti PI 83 7- 0- 00 OM 64 SO ve N 12 20 20 Y 3 R [address] WOOD 1 UG BE MG RT CO E CA PS IN UL C E TR 65 07 09 01 90 30 EC 46 WI Ac AM 16 -2 -1 .0 ON 80 ND ti AD 20 7- 0- 00 OM 18 SO ve OL 62 20 20 Y 1 R [address] WOOD HC 1 UG BE L RT 50 CO E MG IN C TA BL ET LY 00 07 09 01 12 30 EC 46 WI Ac RI 07 -2 -1 0. ON 80 ND ti CA 11 7- 0- 00 OM 18 SO ve 01 20 20 0 Y 2 R [address] WOOD 0 8 UG BE MG RT CO E CA PS IN UL C E ME 00 08 09 00 60 30 K- 68 PA Ac TO 37 -3 -1 .0 MA 80 YN ti GA 80 1- 0- 00 RT 99 E ve OL 03 20 20 6 VA OL 21 09 09 PH UG 0 AR HN TA M W RT #7 RA 17 TE 4 50 MG TA B AC 64 06 08 02 30 30 K- 68 DU Ac TO 76 -1 -2 .0 MA 76 NN ti S 40 8- 7- 00 RT 76 IN ve 45 45 20 20 0 G 12 09 09 PH MA MG 4 AR LE M SH TA #7 EA BL 17 ET 4 GL 00 06 08 01 12 60 K- 68 DU Ac YB 09 -1 -2 0. MA 76 NN ti UR 39 8- 7- 00 RT 76 IN ve ID 36 20 20 0 7 G E 40 09 09 PH MA 5 1 AR LE MG M SH #7 EA TA 17 BL 4 ET EN 64 06 08 02 60 30 K- 68 DU Ac AL 67 -1 -2 .0 MA 76 NN ti AP 90 8- 7- 00 RT 76 IN ve RI 92 20 20 6 G L 60 09 09 PH MA MA 2 AR LE LE M SH AT #7 EA E 17 20 4 MG TA B DI 00 06 08 02 30 30 K- 68 DU Ac GO 52 -1 -2 .0 MA 76 NN ti X 71 8- 7- 00 RT 76 IN ve 25 32 20 20 4 G 0 50 09 09 PH MA MC 1 AR LE G M SH TA #7 EA BL 17 ET 4 CR 00 06 08 01 30 30 K- 68 DU Ac ES 31 -1 -2 .0 MA 76 NN ti TO 00 8- 7- 00 RT 76 IN ve R 75 20 20 5 G 10 19 09 09 PH MA 0 AR LE MG M SH #7 EA TA 17 BL 4 ET 64 06 08 01 30 30 K- 68 DU Ac 72 -1 -2 .0 MA 76 NN ti 00 8- 7- 00 RT 76 IN ve 20 20 20 8 G 61 09 09 PH MA 0 AR LE M SH #7 EA 17 4 FU 00 06 08 02 30 30 K- 68 DU Ac RO 37 -1 -2 .0 MA 76 NN ti SE 80 8- 7- 00 RT 77 IN ve WY 21 20 20 0 G DE 61 09 09 PH MA 0 AR LE 40 M SH #7 EA MG 17 4 TA BL ET BU 00 06 08 02 30 30 K- 68 DU Ac SP 37 -1 -2 .0 MA 76 NN ti IR 81 8- 7- 00 RT 76 IN ve ON 15 20 20 3 G E 00 09 09 PH MA HC 1 AR LE L M SH 10 #7 EA 17 MG 4 TA BL ET 00 06 08 01 15 30 K- 88 DU Ac 16 -1 -1 .0 MA 10 NN ti 93 8- 3- 00 RT 13 IN ve 47 20 20 1 G 71 09 09 PH MA 8 AR LE M SH #7 EA 17 4 ME 00 08 08 11 60 30 K- 68 PA Ac TO 37 -2 -1 .0 MA 58 YN ti GA 80 5- 3- 00 RT 62 E ve OL 03 20 20 2 VA OL 21 08 09 PH UG 0 AR HN TA M W RT #7 RA 17 TE 4 50 MG TA B DO 00 07 08 00 90 30 EC 72 WI Ac XE 37 -2 -1 .0 ON 88 ND ti PI 83 7- 3- 00 OM 64 SO ve N 12 20 20 Y 3 R [address] RO 1 UG BE MG RT CO E CA PS IN UL C E LY 00 07 08 00 12 30 EC 46 WI Ac RI 07 -2 -1 0. ON 80 ND ti CA 11 7- 3- 00 OM 18 SO ve 01 20 20 0 Y 2 R [address] RO 0 8 UG BE MG RT CO E CA PS IN UL C E TR 65 07 08 00 90 30 EC 46 WI Ac AM 16 -2 -1 .0 ON 80 ND ti AD 20 7- 3- 00 OM 18 SO ve OL 62 20 20 Y 1 R [address] RO HC 1 UG BE L RT 50 CO E MG IN C TA BL ET 00 04 07 03 90 30 K- 68 DU Ac 59 -1 -3 .0 MA 72 NN ti 13 6- 0- 00 RT 94 IN ve 66 20 20 8 G 50 09 09 PH MA 5 AR LE M SH #7 EA 17 4 CR 00 06 07 00 30 30 K- 68 DU Ac ES 31 -1 -3 .0 MA 76 NN ti TO 00 8- 0- 00 RT 76 IN ve R 75 20 20 5 G 10 13 09 09 PH MA 9 AR LE MG M SH #7 EA TA 17 BL 4 ET DI 00 06 07 01 30 30 K- 68 DU Ac GO 52 -1 -3 .0 MA 76 NN ti X 71 8- 0- 00 RT 76 IN ve 25 32 20 20 4 G 0 50 09 09 PH MA MC 1 AR LE G M SH TA #7 EA BL 17 ET 4 64 06 07 00 30 30 K- 68 DU Ac 72 -1 -3 .0 MA 76 NN ti 00 8- 0- 00 RT 76 IN ve 20 20 20 8 G 61 09 09 PH MA 0 AR LE M SH #7 EA 17 4 EN 64 06 07 01 60 30 K- 68 DU Ac AL 67 -1 -3 .0 MA 76 NN ti AP 90 8- 0- 00 RT 76 IN ve RI 92 20 20 6 G L 60 09 09 PH MA MA 2 AR LE LE M SH AT #7 EA E 17 20 4 MG TA B FU 00 06 07 01 30 30 K- 68 DU Ac RO 37 -1 -3 .0 MA 76 NN ti SE 80 8- 0- 00 RT 77 IN ve WY 21 20 20 0 G DE 61 09 09 PH MA 0 AR LE 40 M SH #7 EA MG 17 4 TA BL ET AC 64 06 07 01 30 30 K- 68 DU Ac TO 76 -1 -3 .0 MA 76 NN ti S 40 8- 0- 00 RT 76 IN ve 45 45 20 20 0 G 12 09 09 PH MA MG 4 AR LE M SH TA #7 EA BL 17 ET 4 BU 00 06 07 01 30 30 K- 68 DU Ac SP 37 -1 -3 .0 MA 76 NN ti IR 81 8- 0- 00 RT 76 IN ve ON 15 20 20 3 G E 00 09 09 PH MA HC 1 AR LE L M SH 10 #7 EA 17 MG 4 TA BL ET ME 00 08 07 10 60 30 K- 68 PA Ac TO 37 -2 -1 .0 MA 58 YN ti GA 80 5- 6- 00 RT 62 E ve OL 03 20 20 2 VA OL 21 08 09 PH UG 0 AR HN TA M W RT #7 RA 17 TE 4 50 MG TA B BU 00 06 07 00 30 30 K- 68 DU Ac SP 37 -1 -0 .0 MA 76 NN ti IR 81 8- 2- 00 RT 76 IN ve ON 15 20 20 3 G E 00 09 09 PH MA HC 1 AR LE L M SH 10 #7 EA 17 MG 4 TA BL ET EN 64 06 07 00 60 30 K- 68 DU Ac AL 67 -1 -0 .0 MA 76 NN ti AP 90 8- 2- 00 RT 76 IN ve RI 92 20 20 6 G L 60 09 09 PH MA MA 2 AR LE LE M SH AT #7 EA E 17 20 4 MG TA B DO 00 06 07 00 90 30 EC 72 WI Ac XE 37 -2 -0 .0 ON 85 ND ti PI 83 4- 2- 00 OM 21 SO ve N 12 20 20 Y 6 R [address] RO 1 UG BE MG RT CO E CA PS IN UL C E LY 00 06 07 00 12 30 EC 46 WI Ac RI 07 -2 -0 0. ON 78 ND ti CA 11 4- 2- 00 OM 71 SO ve 01 20 20 0 Y 5 R [address] RO 0 8 UG BE MG RT CO E CA PS IN UL C E TI 55 06 07 00 60 30 EC 72 WI Ac ZA 11 -2 -0 .0 ON 85 ND ti NI 10 4- 2- 00 OM 21 SO ve DI 18 20 20 Y 7 R NE [address] RO 0 UG BE HC RT L CO E 4 MG IN C TA BL ET TR 65 06 07 00 90 30 EC 46 WI Ac AM 16 -2 -0 .0 ON 78 ND ti AD 20 4- 2- 00 OM 71 SO ve OL 62 20 20 Y 7 R [address] RO HC 1 UG BE L RT 50 CO E MG IN C TA BL ET DI 00 06 07 00 30 30 K- 68 DU Ac GO 52 -1 -0 .0 MA 76 NN ti X 71 8- 2- 00 RT 76 IN ve 25 32 20 20 4 G 0 50 09 09 PH MA MC 1 AR LE G M SH TA #7 EA BL 17 ET 4 FU 00 06 07 00 30 30 K- 68 DU Ac RO 37 -1 -0 .0 MA 76 NN ti SE 80 8- 2- 00 RT 77 IN ve WY 21 20 20 0 G DE 61 09 09 PH MA 0 AR LE 40 M SH #7 EA MG 17 4 TA BL ET GL 00 06 07 00 12 60 K- 68 DU Ac YB 09 -1 -0 0. MA 76 NN ti UR 39 8- 2- 00 RT 76 IN ve ID 36 20 20 0 7 G E 40 09 09 PH MA 5 1 AR LE MG M SH #7 EA TA 17 BL 4 ET 00 06 07 00 15 30 K- 88 DU Ac 16 -1 -0 .0 MA 10 NN ti 93 8- 2- 00 RT 13 IN ve 47 20 20 1 G 71 09 09 PH MA 8 AR LE M SH #7 EA 17 4 AC 64 06 07 00 30 30 K- 68 DU Ac TO 76 -1 -0 .0 MA 76 NN ti S 40 8- 2- 00 RT 76 IN ve 45 45 20 20 0 G 12 09 09 PH MA MG 4 AR LE M SH TA #7 EA BL 17 ET 4 CR 00 02 06 03 30 30 K- 68 DU Ac ES 31 -1 -1 .0 MA 68 NN ti TO 00 2- 8- 00 RT 82 IN ve R 75 20 20 0 G 10 19 09 09 PH MA 0 AR LE MG M SH #7 EA TA 17 BL 4 ET 64 01 06 01 30 30 K- 68 DU Ac 72 -1 -1 .0 MA 67 NN ti 00 3- 8- 00 RT 01 IN ve 20 20 20 1 G 61 09 09 PH MA 0 AR LE M SH #7 EA 17 4 00 04 06 02 90 30 K- 68 DU Ac 59 -1 -1 .0 MA 72 NN ti 13 6- 8- 00 RT 94 IN ve 66 20 20 8 G 50 09 09 PH MA 5 AR LE M SH #7 EA 17 4 AC 64 05 06 00 30 30 K- 68 DU Ac TO 76 -1 -0 .0 MA 74 NN ti S 40 8- 4- 00 RT 89 IN ve 45 45 20 20 7 G 12 09 09 PH MA MG 4 AR LE M SH TA #7 EA BL 17 ET 4 TR 57 05 06 00 90 30 EC 46 WI Ac AM 66 -2 -0 .0 ON 77 ND ti AD 40 7- 4- 00 OM 41 SO ve OL 37 20 20 Y 3 R [address] RO HC 8 UG BE L RT 50 CO E MG IN C TA BL ET TI 55 05 06 00 60 30 EC 72 WI Ac ZA 11 -2 -0 .0 ON 82 ND ti NI 10 7- 4- 00 OM 25 SO ve DI 18 20 20 Y 2 R NE [address] RO 0 UG BE HC RT L CO E 4 MG IN C TA BL ET 65 05 06 00 10 25 EC 72 WI Ac 16 -2 -0 0. ON 82 ND ti 20 7- 4- 00 OM 25 SO ve 15 20 20 0 Y 0 R [address] RO 1 UG BE RT CO E IN C LY 00 05 06 00 12 30 EC 46 WI Ac RI 07 -2 -0 0. ON 77 ND ti CA 11 7- 4- 00 OM 41 SO ve 01 20 20 0 Y 1 R [address] RO 0 8 UG BE MG RT CO E CA PS IN UL C E DO 00 05 06 00 90 30 EC 72 WI Ac XE 37 -2 -0 .0 ON 82 ND ti PI 83 7- 4- 00 OM 25 SO ve N 12 20 20 Y 1 R [address] RO 1 UG BE MG RT CO E CA PS IN UL C E ME 00 08 06 09 60 30 K- 68 PA Ac TO 37 -2 -0 .0 MA 58 YN ti GA 80 5- 4- 00 RT 62 E ve OL 03 20 20 2 VA OL 21 08 09 PH UG 0 AR HN TA M W RT #7 RA 17 TE 4 50 MG TA B NO 00 03 06 02 10 30 K- 88 Ac VO 16 -2 -0 .0 MA 09 ND ti LI 91 4- 4- 00 RT 90 UM ve N 83 20 20 9 AL 70 71 09 09 PH LA -3 1 AR 0 M GO 10 #7 PI 0 17 K UN 4 IT /M L AL 64 02 05 03 30 30 K- 68 DU Ac 72 -1 -2 .0 MA 68 NN ti 00 2- 1- 00 RT 82 IN ve 20 20 20 1 G 61 09 09 PH MA 0 AR LE M SH #7 EA 17 4 IB 53 04 05 01 90 30 K- 68 DU Ac UP 74 -1 -2 .0 MA 72 NN ti RO 60 6- 1- 00 RT 94 IN ve FE 46 20 20 8 G N 60 09 09 PH MA 80 5 AR LE 0 M SH MG #7 EA 17 TA 4 BL ET EN 64 02 05 03 60 30 K- 68 DU Ac AL 67 -1 -2 .0 MA 68 NN ti AP 90 2- 1- 00 RT 82 IN ve RI 92 20 20 4 G L 60 09 09 PH MA MA 2 AR LE LE M SH AT #7 EA E 17 20 4 MG TA B DI 00 02 05 03 30 30 K- 68 DU Ac GO 52 -1 -2 .0 MA 68 NN ti X 71 2- 1- 00 RT 82 IN ve 25 32 20 20 5 G 0 50 09 09 PH MA MC 1 AR LE G M SH TA #7 EA BL 17 ET 4 CR 00 02 05 02 30 30 K- 68 DU Ac ES 31 -1 -2 .0 MA 68 NN ti TO 00 2- 1- 00 RT 82 IN ve R 75 20 20 0 G 10 19 09 09 PH MA 0 AR LE MG M SH #7 EA TA 17 BL 4 ET 00 01 05 03 12 30 K- 68 DU Ac 78 -2 -0 0. MA 67 NN ti 11 9- 7- 00 RT 94 IN ve 19 20 20 0 8 G 10 09 09 PH MA 1 AR LE M SH #7 EA 17 4 FU 00 02 05 03 30 30 K- 68 DU Ac RO 37 -1 -0 .0 MA 68 NN ti SE 80 2- 7- 00 RT 82 IN ve WY 21 20 20 3 G DE 61 09 09 PH MA 0 AR LE 40 M SH #7 EA MG 17 4 TA BL ET ME 65 01 05 03 12 30 K- 68 DU Ac TF 86 -2 -0 0. MA 67 NN ti OR 20 2- 7- 00 RT 52 IN ve WY 00 20 20 0 5 G N 80 09 09 PH MA HC 5 AR LE L M SH 50 #7 EA 0 17 MG 4 TA BL ET DO 00 04 05 00 90 30 EC 72 WI Ac XE 37 -2 -0 .0 ON 78 ND ti PI 83 4- 7- 00 OM 52 SO ve N 12 20 20 Y 4 R [address] RO 1 UG BE MG RT CO E CA PS IN UL C E 65 04 05 00 11 28 EC 72 WI Ac 16 -2 -0 2. ON 78 ND ti 20 4- 7- 00 OM 52 SO ve 15 20 20 0 Y 5 R [address] RO 1 UG BE RT CO E IN C LY 00 04 05 00 12 30 EC 46 WI Ac RI 07 -2 -0 0. ON 75 ND ti CA 11 4- 7- 00 OM 90 SO ve 01 20 20 0 Y 1 R [address] RO 0 8 UG BE MG RT CO E CA PS IN UL C E TR 57 04 05 00 15 30 EC 46 WI Ac AM 66 -2 -0 0. ON 76 ND ti AD 40 8- 7- 00 OM 00 SO ve OL 37 20 20 0 Y 0 R [address] RO HC 8 UG BE L RT 50 CO E MG IN C TA BL ET TI 55 04 05 00 60 30 EC 72 WI Ac ZA 11 -2 -0 .0 ON 78 ND ti NI 10 4- 7- 00 OM 52 SO ve DI 18 20 20 Y 3 R NE [address] RO 0 UG BE HC RT L CO E 4 MG IN C TA BL ET ME 00 08 05 08 60 30 K- 68 PA Ac TO 37 -2 -0 .0 MA 58 YN ti GA 80 5- 7- 00 RT 62 E ve OL 03 20 20 2 VA OL 21 08 09 PH UG 0 AR HN TA M W RT #7 RA 17 TE 4 50 MG TA B NO 00 03 05 01 10 30 K- 88 Ac VO 16 -2 -0 .0 MA 09 ND ti LI 91 4- 7- 00 RT 90 UM ve N 83 20 20 9 AL 70 71 09 09 PH LA -3 1 AR 0 M GO 10 #7 PI 0 17 K UN 4 IT /M L AL 00 03 04 01 30 30 K- 68 DU Ac 37 -1 -2 .0 MA 71 NN ti 80 9- 3- 00 RT 27 IN ve 75 20 20 6 G 50 09 09 PH MA 1 AR LE M SH #7 EA 17 4 ME 65 01 04 02 12 30 K- 68 DU Ac TF 86 -2 -2 0. MA 67 NN ti OR 20 2- 3- 00 RT 52 IN ve WY 00 20 20 0 5 G N 80 09 09 PH MA HC 5 AR LE L M SH 50 #7 EA 0 17 MG 4 TA BL ET IB 53 04 04 00 90 30 K- 68 DU Ac UP 74 -1 -2 .0 MA 72 NN ti RO 60 6- 3- 00 RT 94 IN ve FE 46 20 20 8 G N 60 09 09 PH MA 80 5 AR LE 0 M SH MG #7 EA 17 TA 4 BL ET DI 00 02 04 02 30 30 K- 68 DU Ac GO 52 -1 -2 .0 MA 68 NN ti X 71 2- 3- 00 RT 82 IN ve 25 32 20 20 5 G 0 50 09 09 PH MA MC 1 AR LE G M SH TA #7 EA BL 17 ET 4 AC 64 01 04 03 30 30 K- 68 DU Ac TO 76 -2 -2 .0 MA 67 NN ti S 40 2- 3- 00 RT 52 IN ve 45 45 20 20 4 G 12 09 09 PH MA MG 4 AR LE M SH TA #7 EA BL 17 ET 4 EN 64 02 04 02 60 30 K- 68 DU Ac AL 67 -1 -2 .0 MA 68 NN ti AP 90 2- 3- 00 RT 82 IN ve RI 92 20 20 4 G L 60 09 09 PH MA MA 2 AR LE LE M SH AT #7 EA E 17 20 4 MG TA B 64 02 04 02 30 30 K- 68 DU Ac 72 -1 -2 .0 MA 68 NN ti 00 2- 3- 00 RT 82 IN ve 20 20 20 1 G 61 09 09 PH MA 0 AR LE M SH #7 EA 17 4 FU 00 02 04 02 30 30 K- 68 DU Ac RO 37 -1 -2 .0 MA 68 NN ti SE 80 2- 3- 00 RT 82 IN ve WY 21 20 20 3 G DE 61 09 09 PH MA 0 AR LE 40 M SH #7 EA MG 17 4 TA BL ET CR 00 02 04 01 30 30 K- 68 DU Ac ES 31 -1 -2 .0 MA 68 NN ti TO 00 2- 3- 00 RT 82 IN ve R 75 20 20 0 G 10 19 09 09 PH MA 0 AR LE MG M SH #7 EA TA 17 BL 4 ET 00 01 04 02 12 30 K- 68 DU Ac 78 -2 -0 0. MA 67 NN ti 11 9 9- 00 RT 94 IN ve 19 20 20 0 8 G 10 09 09 PH MA 1 AR LE M SH #7 EA 17 4 DO 00 03 04 00 90 30 EC 72 WI Ac XE 37 -2 -0 .0 ON 74 ND ti PI 83 5- 9- 00 OM 97 SO ve N 12 20 20 Y 9 R [address] RO 1 UG BE MG RT CO E CA PS IN UL C E LY 00 03 04 00 12 30 EC 46 WI Ac RI 07 -2 -0 0. ON 74 ND ti CA 11 5- 9 00 OM 48 SO ve 01 20 20 0 Y 2 R [address] RO 0 8 UG BE MG RT CO E CA PS IN UL C E TR 57 03 04 00 15 30 EC 46 WI Ac AM 66 -2 -0 0. ON 74 ND ti AD 40 5 9 OM 48 SO ve OL 37 20 20 0 Y 3 R [address] NINA HC 8 UG BE L RT 50 CO E MG IN C TA BL ET ME 00 08 04 07 60 30 K- 68 PA Ac TO 37 -2 -0 .0 MA 58 YN ti GA 80 5 9 RT 62 E ve OL 03 20 20 2 VA OL 21 08 09 PH UG 0 AR HN TA M W RT #7 RA 17 TE 4 50 MG TA B AZ 50 03 04 00 6. 5 ME 22 PA Ac IT 11 -1 -0 00 DI 68 YN ti HR 10 2- 9- 0 CA 09 E ve OM 78 20 20 L VA YC 76 09 09 CE UG IN 6 NT HN ER W 25 0 PH MG AR MA TA CY BL ET NO 00 03 04 00 10 30 K- 88 Ac VO 16 -2 -0 .0 MA 09 ND ti LI 91 4 9- 00 RT 90 UM ve N 83 20 20 9 AL 70 71 09 09 PH LA -3 1 AR 0 M GO 10 #7 PI 0 17 K UN 4 IT /M L AL CR 00 02 03 00 30 30 K- 68 DU Ac ES 31 -1 -2 .0 MA 68 NN ti TO 00 2 6- 00 RT 82 IN ve R 75 20 20 0 G 10 19 09 09 PH MA 0 AR LE MG M SH #7 EA TA 17 BL 4 ET AC 64 01 03 02 30 30 K- 68 DU Ac TO 76 -2 -2 .0 MA 67 NN ti S 40 2- 6- 00 RT 52 IN ve 45 45 20 20 4 G 12 09 09 PH MA MG 4 AR LE M SH TA #7 EA BL 17 ET 4 EN 64 02 03 01 60 30 K- 68 DU Ac AL 67 -1 -2 .0 MA 68 NN ti AP 90 2- 6- 00 RT 82 IN ve RI 92 20 20 4 G L 60 09 09 PH MA MA 2 AR LE LE M SH AT #7 EA E 17 20 4 MG TA B DI 00 02 03 01 30 30 K- 68 DU Ac GO 52 -1 -2 .0 MA 68 NN ti X 71 2- 6- 00 RT 82 IN ve 25 32 20 20 5 G 0 50 09 09 PH MA MC 1 AR LE G M SH TA #7 EA BL 17 ET 4 TR 65 03 03 00 60 15 CE 34 DU Ac AM 16 -1 -2 .0 DA 79 NN ti AD 20 6- 6- 00 R 90 IN ve OL 62 20 20 TR G 71 09 09 AC MA HC 1 E LE L PH SH 50 M EA IN MG C TA BL ET IB 53 03 03 00 90 30 K- 68 DU Ac UP 74 -1 -2 .0 MA 71 NN ti RO 60 9- 6- 00 RT 27 IN ve FE 46 20 20 7 G N 60 09 09 PH MA 80 5 AR LE 0 M SH MG #7 EA 17 TA 4 BL ET 00 03 03 00 30 30 K- 68 DU Ac 37 -1 -2 .0 MA 71 NN ti 80 9- 6- 00 RT 27 IN ve 75 20 20 6 G 50 09 09 PH MA 1 AR LE M SH #7 EA 17 4 64 02 03 01 30 30 K- 68 DU Ac 72 -1 -2 .0 MA 68 NN ti 00 2- 6- 00 RT 82 IN ve 20 20 20 1 G 61 09 09 PH MA 0 AR LE M SH #7 EA 17 4 ME 65 01 03 01 12 30 K- 68 DU Ac TF 86 -2 -2 0. MA 67 NN ti OR 20 2- 6- 00 RT 52 IN ve WY 00 20 20 0 5 G N 80 09 09 PH MA HC 5 AR LE L M SH 50 #7 EA 0 17 MG 4 TA BL ET FU 00 02 03 01 30 30 K- 68 DU Ac RO 37 -1 -2 .0 MA 68 NN ti SE 80 2- 6- 00 RT 82 IN ve WY 21 20 20 3 G DE 61 09 09 PH MA 0 AR LE 40 M SH #7 EA MG 17 4 TA BL ET 00 01 03 01 12 30 K- 68 DU Ac 78 -2 -1 0. MA 67 NN ti 11 9- 2- 00 RT 94 IN ve 19 20 20 0 8 G 10 09 09 PH MA 1 AR LE M SH #7 EA 17 4 DO 49 09 03 05 30 30 CE 34 UP Ac XE 88 -3 -1 .0 DA 13 AD ti PI 40 0- 2- 00 R 64 HY ve N 21 20 20 TR AY 25 80 08 09 AC 1 E SH MG PH AI M LE CA IN SH PS C P UL E ME 00 08 03 06 60 30 K- 68 PA Ac TO 37 -2 -1 .0 MA 58 YN ti GA 80 5- 2- 00 RT 62 E ve OL 03 20 20 2 VA OL 21 08 09 PH UG 0 AR HN TA M W RT #7 RA 17 TE 4 50 MG TA B CR 00 07 02 06 30 30 K- 68 PA Ac ES 31 -2 -2 .0 MA 56 YN ti TO 00 1- 6- 00 RT 22 E ve R 75 20 20 7 VA 10 19 08 09 PH UG 0 AR HN MG M W #7 TA 17 BL 4 ET FU 00 02 02 00 30 30 K- 68 DU Ac RO 37 -1 -2 .0 MA 68 NN ti SE 80 2- 6- 00 RT 82 IN ve WY 21 20 20 3 G DE 61 09 09 PH MA 0 AR LE 40 M SH #7 EA MG 17 4 TA BL ET AC 64 01 02 01 30 30 K- 68 DU Ac TO 76 -2 -2 .0 MA 67 NN ti S 40 2- 6- 00 RT 52 IN ve 45 45 20 20 4 G 12 09 09 PH MA MG 4 AR LE M SH TA #7 EA BL 17 ET 4 DI 00 02 02 00 30 30 K- 68 DU Ac GO 52 -1 -2 .0 MA 68 NN ti X 71 2- 6- 00 RT 82 IN ve 25 32 20 20 5 G 0 50 09 09 PH MA MC 1 AR LE G M SH TA #7 EA BL 17 ET 4 TR 00 02 02 00 12 30 K- 44 DU Ac AM 37 -1 -2 0. MA 54 NN ti AD 84 2- 6- 00 RT 28 IN ve OL 15 20 20 0 2 G 10 09 09 PH MA HC 5 AR LE L M SH 50 #7 EA 17 MG 4 TA BL ET EN 64 02 02 00 60 30 K- 68 DU Ac AL 67 -1 -2 .0 MA 68 NN ti AP 90 2- 6- 00 RT 82 IN ve RI 92 20 20 4 G L 60 09 09 PH MA MA 2 AR LE LE M SH AT #7 EA E 17 20 4 MG TA B 68 02 02 00 20 10 K- 68 DU Ac 77 -1 -2 .0 MA 68 NN ti 40 2- 6- 00 RT 82 IN ve 12 20 20 7 G 26 09 09 PH MA 0 AR LE M SH #7 EA 17 4 64 02 02 00 30 30 K- 68 DU Ac 72 -1 -2 .0 MA 68 NN ti 00 2- 6- 00 RT 82 IN ve 20 20 20 1 G 61 09 09 PH MA 0 AR LE M SH #7 EA 17 4 00 01 02 00 12 30 K- 68 DU Ac 78 -2 -1 0. MA 67 NN ti 11 9- 2- 00 RT 94 IN ve 19 20 20 0 8 G 10 09 09 PH MA 1 AR LE M SH #7 EA 17 4 LY 00 12 02 00 90 30 K- 44 [place] Ac RI 07 -1 -1 .0 MA 53 TT ti CA 11 8- 2- 00 RT 74 EN ve 01 20 20 0 BA 15 66 08 09 PH CH 0 8 AR MG M WI #7 LL CA 17 IA PS 4 M UL H E ME 00 08 02 05 60 30 K- 68 PA Ac TO 37 -2 -1 .0 MA 58 YN ti GA 80 5- 2- 00 RT 62 E ve OL 03 20 20 2 VA OL 21 08 09 PH UG 0 AR HN TA M W RT #7 RA 17 TE 4 50 MG TA B DO 49 09 02 04 30 30 CE 34 UP Ac XE 88 -3 -1 .0 DA 13 AD ti PI 40 0- 2- 00 R 64 HY ve N 21 20 20 TR AY 25 80 08 09 AC 1 E SH MG PH AI M LE CA IN SH PS C P UL E 63 02 02 00 18 6 CE 34 CL Ac 30 -0 -1 .0 DA 63 AR ti 40 2- 2- 00 R 15 K ve 65 20 20 TR BR 40 09 09 AC EN 1 E T PH G M IN C EN 64 07 01 06 30 30 K- 68 PA Ac AL 67 -2 -3 .0 MA 56 YN ti AP 90 1- 0- 00 RT 22 E ve RI 92 20 20 8 VA L 60 08 09 PH UG MA 2 AR HN LE M W AT #7 E 17 20 4 MG TA B FU 00 07 01 06 30 30 K- 68 PA Ac RO 37 -2 -3 .0 MA 56 YN ti SE 80 1- 0- 00 RT 23 E ve WY 21 20 20 0 VA DE 61 08 09 PH UG 0 AR HN 40 M W #7 MG 17 4 TA BL ET CR 00 07 01 05 30 30 K- 68 PA Ac ES 31 -2 -3 .0 MA 56 YN ti TO 00 1- 0- 00 RT 22 E ve R 75 20 20 7 VA 10 19 08 09 PH UG 0 AR HN MG M W #7 TA 17 BL 4 ET DI 57 07 01 06 30 30 K- 68 PA Ac GO 66 -2 -3 .0 MA 56 YN ti XI 40 1- 0- 00 RT 22 E ve N 44 20 20 9 VA 0. 18 08 09 PH UG 25 8 AR HN M W MG #7 17 TA 4 BL ET 64 01 01 00 30 30 K- 68 DU Ac 72 -1 -3 .0 MA 67 NN ti 00 3- 0- 00 RT 01 IN ve 20 20 20 1 G 61 09 09 PH MA 0 AR LE M SH #7 EA 17 4 ME 65 01 01 00 12 30 K- 68 DU Ac TF 86 -2 -3 0. MA 67 NN ti OR 20 2- 0- 00 RT 52 IN ve WY 00 20 20 0 5 G N 80 09 09 PH MA HC 5 AR LE L M SH 50 #7 EA 0 17 MG 4 TA BL ET AM 66 01 01 00 20 10 K- 68 DU Ac OX 68 -1 -3 .0 MA 67 NN ti -C 51 3- 0- 00 RT 01 IN ve LA 00 20 20 4 G V 10 09 09 PH MA 87 0 AR LE 5- M SH 12 #7 EA 5 17 MG 4 TA BL ET 00 01 01 00 30 30 K- 68 DU Ac 37 -1 -3 .0 MA 67 NN ti 80 3- 0- 00 RT 01 IN ve 75 20 20 3 G 50 09 09 PH MA 1 AR LE M SH #7 EA 17 4 GA 00 01 01 00 24 6 EC 46 DU Ac OM 60 -1 -3 0. ON 71 NN ti ET 31 9- 0- 00 OM 52 IN ve CASTELAN 58 20 20 0 Y 9 G ZI [address] MA NE 8 UG LE -C SH OD CO EA EI NE IN C SY RU P AC 64 01 01 00 30 30 K- 68 DU Ac TO 76 -2 -3 .0 MA 67 NN ti S 40 2- 0- 00 RT 52 IN ve 45 45 20 20 4 G 12 09 09 PH MA MG 4 AR LE M SH TA #7 EA BL 17 ET 4 DO 49 09 01 03 30 30 CE 34 UP Ac XE 88 -3 -1 .0 DA 13 AD ti PI 40 0- 5- 00 R 64 HY ve N 21 20 20 TR AY 25 80 08 09 AC 1 E SH MG PH AI M LE CA IN SH PS C P UL E AM 00 01 01 00 21 7 K- 68 Ac OX 78 -0 -1 .0 MA 66 ND ti IC 12 9- 5- 00 RT 75 UM ve IL 61 20 20 9 AL LI 30 09 09 PH LA N 5 AR 50 M GO 0 #7 PI MG 17 K 4 CA PS UL E GL 00 10 01 02 30 30 K- 68 Ac YB 09 -2 -0 .0 MA 61 ND ti UR 39 2- 1- 00 RT 98 UM ve ID 36 20 20 4 AL E 40 08 09 PH LA 5 1 AR MG M GO #7 PI TA 17 K BL 4 ET DI 57 07 01 05 30 30 K- 68 PA Ac GO 66 -2 -0 .0 MA 56 YN ti XI 40 1- 1- 00 RT 22 E ve N 44 20 20 9 VA 0. 18 08 09 PH UG 25 8 AR HN M W MG #7 17 TA 4 BL ET LY 00 10 01 01 90 30 K- 44 [place] Ac RI 07 -2 -0 .0 MA 53 CK ti CA 11 8- 1- 00 RT 16 ve 01 20 20 6 GR 15 66 08 09 PH EG 0 8 AR OR MG M Y #7 E CA 17 PS 4 UL E FU 00 07 01 05 30 30 K- 68 PA Ac RO 37 -2 -0 .0 MA 56 YN ti SE 80 1- 1- 00 RT 23 E ve WY 21 20 20 0 VA DE 61 08 09 PH UG 0 AR HN 40 M W #7 MG 17 4 TA BL ET EN 64 07 01 05 30 30 K- 68 PA Ac AL 67 -2 -0 .0 MA 56 YN ti AP 90 1- 1- 00 RT 22 E ve RI 92 20 20 8 VA L 60 08 09 PH UG MA 2 AR HN LE M W AT #7 E 17 20 4 MG TA B CR 00 07 01 04 30 30 K- 68 PA Ac ES 31 -2 -0 .0 MA 56 YN ti TO 00 1- 1- 00 RT 22 E ve R 75 20 20 7 VA 10 19 08 09 PH UG 0 AR HN MG M W #7 TA 17 BL 4 ET ME 00 08 01 04 60 30 K- 68 PA Ac TO 37 -2 -0 .0 MA 58 YN ti GA 80 5- 1- 00 RT 62 E ve OL 03 20 20 2 VA OL 21 08 09 PH UG 0 AR HN TA M W RT #7 RA 17 TE 4 50 MG TA B TR 00 12 01 00 12 30 K- 44 [place] Ac AM 37 -1 -0 0. MA 53 TT ti AD 84 8- 1- 00 RT 74 EN ve OL 15 20 20 0 1 BA 10 08 09 PH CH HC 5 AR L M WI 50 #7 LL 17 IA MG 4 M H TA BL ET 64 10 12 02 30 30 K- 68 CO Ac 72 -1 -1 .0 MA 61 LL ti 00 4- 8- 00 RT 45 IN ve 20 20 20 0 S 41 08 08 PH PA 0 AR TR M IC #7 K 17 W 4 DO 49 09 12 02 30 30 CE 34 UP Ac XE 88 -3 -1 .0 DA 13 AD ti PI 40 0- 8- 00 R 64 HY ve N 21 20 20 TR AY 25 80 08 08 AC 1 E SH MG PH AI M LE CA IN SH PS C P UL E GL 00 10 12 01 30 30 K- 68 Ac YB 09 -2 -0 .0 MA 61 ND ti UR 39 2- 4- 00 RT 98 UM ve ID 36 20 20 4 AL E 40 08 08 PH LA 5 1 AR MG M GO #7 PI TA 17 K BL 4 ET DI 57 07 12 04 30 30 K- 68 PA Ac GO 66 -2 -0 .0 MA 56 YN ti XI 40 1- 4- 00 RT 22 E ve N 44 20 20 9 VA 0. 18 08 08 PH UG 25 8 AR HN M W MG #7 17 TA 4 BL ET ME 00 08 12 03 60 30 K- 68 PA Ac TO 37 -2 -0 .0 MA 58 YN ti GA 80 5- 4- 00 RT 62 E ve OL 03 20 20 2 VA OL 21 08 08 PH UG 0 AR HN TA M W RT #7 RA 17 TE 4 50 MG TA B TR 00 10 12 01 12 30 K- 68 [place] Ac AM 37 -2 -0 0. MA 62 CK ti AD 84 8- 4- 00 RT 29 ve OL 15 20 20 0 9 GR 10 08 08 PH EG HC 5 AR OR L M Y 50 #7 E 17 MG 4 TA BL ET CR 00 07 12 03 30 30 K- 68 PA Ac ES 31 -2 -0 .0 MA 56 YN ti TO 00 1 4 RT 22 E ve R 75 20 20 7 VA 10 19 08 08 PH UG 0 AR HN MG M W #7 TA 17 BL 4 ET EN 64 07 12 04 30 30 K- 68 PA Ac AL 67 -2 -0 .0 MA 56 YN ti AP 90 1 4 RT 22 E ve RI 92 20 20 8 VA L 60 08 08 PH UG MA 2 AR HN LE M W AT #7 E 17 20 4 MG TA B FU 00 07 12 04 30 30 K- 68 PA Ac RO 37 -2 -0 .0 MA 56 YN ti SE 80 1- 4- RT 23 E ve WY 21 20 20 0 VA DE 61 08 08 PH UG 0 AR HN 40 M W #7 MG 17 4 TA BL ET RO 00 10 11 01 30 30 K- 68 CO Ac PI 05 -1 -2 .0 MA 61 LL ti NI 40 4- 0- 00 RT 45 IN ve RO 11 20 20 0 S LE 92 08 08 PH PA 5 AR TR HC M IC L #7 K 2 17 W MG 4 TA BL ET DO 49 09 11 01 30 30 CE 34 UP Ac XE 88 -3 -2 .0 DA 13 AD ti PI 40 0- 0- 00 R 64 HY ve N 21 20 20 TR AY 25 80 08 08 AC 1 E SH MG PH AI M LE CA IN SH PS C P UL E GL 00 10 11 00 30 30 K- 68 Ac YB 09 -2 -0 .0 MA 61 ND ti UR 39 2- 7- 00 RT 98 UM ve ID 36 20 20 4 AL E 40 08 08 PH LA 5 1 AR MG M GO #7 PI TA 17 K BL 4 ET LY 00 10 11 00 90 30 K- 44 [place] Ac RI 07 -2 -0 .0 MA 53 CK ti CA 11 8- 7- 00 RT 16 ve 01 20 20 6 GR 15 66 08 08 PH EG 0 8 AR OR MG M Y #7 E CA 17 PS 4 UL E 00 10 11 00 12 30 K- 44 [place] Ac 40 -2 -0 0. MA 53 CK ti 60 8- 7- 00 RT 16 ve 36 20 20 0 5 GR 30 08 08 PH EG 5 AR OR M Y #7 E 17 4 EN 64 07 11 03 30 30 K- 68 PA Ac AL 67 -2 -0 .0 MA 56 YN ti AP 90 1- 7- 00 RT 22 E ve RI 92 20 20 8 VA L 60 08 08 PH UG MA 2 AR HN LE M W AT #7 E 17 20 4 MG TA B DI 57 07 11 03 30 30 K- 68 PA Ac GO 66 -2 -0 .0 MA 56 YN ti XI 40 1 7- RT 22 E ve N 44 20 20 9 VA 0. 18 08 08 PH UG 25 8 AR HN M W MG #7 17 TA 4 BL ET ME 00 08 11 02 60 30 K- 68 PA Ac TO 37 -2 -0 .0 MA 58 YN ti GA 80 5- 7- RT 62 E ve OL 03 20 20 2 VA OL 21 08 08 PH UG 0 AR HN TA M W RT #7 RA 17 TE 4 50 MG TA B CR 00 07 11 02 30 30 K- 68 PA Ac ES 31 -2 -0 .0 MA 56 YN ti TO 00 1 7- RT 22 E ve R 75 20 20 7 VA 10 19 08 08 PH UG 0 AR HN MG M W #7 TA 17 BL 4 ET FU 00 07 11 03 30 30 K- 68 PA Ac RO 37 -2 -0 .0 MA 56 YN ti SE 80 1 7- RT 23 E ve WY 21 20 20 0 VA DE 61 08 08 PH UG 0 AR HN 40 M W #7 MG 17 4 TA BL ET TR 00 10 11 00 12 30 K- 68 [place] Ac AM 37 -2 -0 0. MA 62 CK ti AD 84 8- 7- 00 RT 29 ve OL 15 20 20 0 9 GR 10 08 08 PH EG HC 5 AR OR L M Y 50 #7 E 17 MG 4 TA BL ET RO 00 10 10 00 30 30 K- 68 CO Ac PI 05 -1 -2 .0 MA 61 LL ti NI 40 4- 3- 00 RT 45 IN ve RO 11 20 20 0 S LE 92 08 08 PH PA 5 AR TR HC M IC L #7 K 2 17 W MG 4 TA BL ET EN 60 09 10 00 10 2 EC 22 MU Ac DO 95 -0 -0 .0 ON 30 TI ti CE 10 6 00 OM 70 SO ve T 60 20 20 Y 5 5- [address] AN [address] 5 EW TA CO M BL ET IN C FU 00 07 10 02 30 30 K- 68 PA Ac RO 37 -2 -0 .0 MA 56 YN ti SE 80 1 9 RT 23 E ve WY 21 20 20 0 VA DE 61 08 08 PH UG 0 AR HN 40 M W #7 MG 17 4 TA BL ET ME 00 08 10 01 60 30 K- 68 PA Ac TO 37 -2 -0 .0 MA 58 YN ti GA 80 5 RT 62 E ve OL 03 20 20 2 VA OL 21 08 08 PH UG 0 AR HN TA M W RT #7 RA 17 TE 4 50 MG TA B CR 00 07 10 01 30 30 K- 68 PA Ac ES 31 -2 -0 .0 MA 56 YN ti TO 00 RT 22 E ve R 75 20 20 7 VA 10 19 08 08 PH UG 0 AR HN MG M W #7 TA 17 BL 4 ET DI 57 07 10 02 30 30 K- 68 PA Ac GO 66 -2 -0 .0 MA 56 YN ti XI 40 1 RT 22 E ve N 44 20 20 9 VA 0. 18 08 08 PH UG 25 8 AR HN M W MG #7 17 TA 4 BL ET EN 64 07 10 02 30 30 K- 68 PA Ac AL 67 -2 -0 .0 MA 56 YN ti AP 90 1 RT 22 E ve RI 92 20 20 8 VA L 60 08 08 PH UG MA 2 AR HN LE M W AT #7 E 17 20 4 MG TA B GL 00 07 10 02 30 30 K- 68 Ac YB 09 -2 -0 .0 MA 56 ND ti UR 39 2 9 RT 24 UM ve ID 36 20 20 8 AL E 40 08 08 PH LA 5 1 AR MG M GO #7 PI TA 17 K BL 4 ET DO 49 09 10 00 30 30 CE 34 UP Ac XE 88 -3 -0 .0 DA 13 AD ti PI 40 0- 9- 00 R 64 HY ve N 21 20 20 TR AY 25 80 08 08 AC 1 E SH MG PH AI M LE CA IN SH PS C P UL E TR 65 09 10 00 12 30 CE 34 UP Ac AM 16 -3 -0 0. DA 13 AD ti AD 20 0- 9- 00 R 63 HY ve OL 62 20 20 0 TR AY 71 08 08 AC HC 1 E SH L PH AI 50 M LE IN SH MG C P TA BL ET DO 49 09 09 00 30 30 CE 34 UP Ac XE 88 -0 -1 .0 DA 01 AD ti PI 40 2- 1- 00 R 93 HY ve N 21 20 20 TR AY 25 80 08 08 AC 1 E SH MG PH AI M LE CA IN SH PS C P UL E TR 65 09 09 00 12 30 CE 34 UP Ac AM 16 -0 -1 0. DA 01 AD ti AD 20 2- 1- 00 R 92 HY ve OL 62 20 20 0 TR AY 71 08 08 AC HC 1 E SH L PH AI 50 M LE IN SH MG C P TA BL ET LY 00 09 09 00 90 30 CE 34 UP Ac RI 07 -0 -1 .0 DA 01 AD ti CA 11 2- 1- 00 R 91 HY ve 01 20 20 TR AY 15 66 08 08 AC 0 8 E SH MG PH AI M LE CA IN SH PS C P UL E FU 00 07 09 01 30 30 K- 68 PA Ac RO 37 -2 -1 .0 MA 56 YN ti SE 80 1- 1- 00 RT 23 E ve WY 21 20 20 0 VA DE 61 08 08 PH UG 0 AR HN 40 M W #7 MG 17 4 TA BL ET ME 00 08 09 00 60 30 K- 68 PA Ac TO 37 -2 -1 .0 MA 58 YN ti GA 80 5- 1- 00 RT 62 E ve OL 03 20 20 2 VA OL 21 08 08 PH UG 0 AR HN TA M W RT #7 RA 17 TE 4 50 MG TA B DI 57 07 09 01 30 30 K- 68 PA Ac GO 66 -2 -1 .0 MA 56 YN ti XI 40 1- 1- 00 RT 22 E ve N 44 20 20 9 VA 0. 18 08 08 PH UG 25 8 AR HN M W MG #7 17 TA 4 BL ET OX 00 08 09 00 10 2 FO 21 No Ac YC 40 -2 -1 .0 OD 00 t ti OD 60 3- 1- 00 38 Av ve ON 51 20 20 CI 7 ai E- 20 08 08 TY la AC 1 bl ET PH e AM AR IN MA OP CY HE N #4 5- 71 32 5 EN 64 07 08 01 30 30 K- 68 PA Ac AL 67 -2 -2 .0 MA 56 YN ti AP 90 1 8- RT 22 E ve RI 92 20 20 8 VA L 60 08 08 PH UG MA 2 AR HN LE M W AT #7 E 17 20 4 MG TA B CR 00 07 08 00 30 30 K- 68 PA Ac ES 31 -2 -2 .0 MA 56 YN ti TO 00 8- RT 22 E ve R 75 20 20 7 VA 10 19 08 08 PH UG 0 AR HN MG M W #7 TA 17 BL 4 ET GL 00 07 08 01 30 30 K- 68 Ac YB 09 -2 -2 .0 MA 56 ND ti UR 39 2- 8- 00 RT 24 UM ve ID 36 20 20 8 AL E 40 08 08 PH LA 5 1 AR MG M GO #7 PI TA 17 K BL 4 ET 00 08 08 00 60 1 K- 68 Ac 05 -0 -1 .0 MA 56 ND ti 40 4- 4- 00 RT 99 UM ve 16 20 20 7 AL 56 08 08 PH LA 3 AR M GO #7 PI 17 K 4 TO 00 06 08 00 60 30 K- 68 BA Ac GA 18 -1 -1 .0 MA 53 IL ti OL 61 2- 4- 00 RT 98 EY ve 09 20 20 3 XL 00 08 08 PH CH 5 AR RI [address] #7 OP MG 17 HE 4 R TA M BL ET DI 57 07 08 00 30 30 K- 68 PA Ac GO 66 -2 -1 .0 MA 56 YN ti XI 40 1- 4- 00 RT 22 E ve N 44 20 20 9 VA 0. 18 08 08 PH UG 25 8 AR HN M W MG #7 17 TA 4 BL ET FU 00 07 08 00 30 30 K- 68 PA Ac RO 37 -2 -1 .0 MA 56 YN ti SE 80 1- 4- 00 RT 23 E ve WY 21 20 20 0 VA DE 61 08 08 PH UG 0 AR HN 40 M W #7 MG 17 4 TA BL ET EN 64 07 08 00 30 30 K- 68 PA Ac AL 67 -2 -0 .0 MA 56 YN ti AP 90 1- - RT 22 E ve RI 92 20 20 8 VA L 60 08 08 PH UG MA 2 AR HN LE M W AT #7 E 17 20 4 MG TA B GE 60 06 08 00 60 30 K- 68 BA Ac MF 50 -1 -0 .0 MA 53 IL ti IB 50 2- 1- 00 RT 98 EY ve RO 03 20 20 9 ZI 40 08 08 PH CH L 8 AR RI [address] 0 #7 OP MG 17 HE 4 R TA M BL ET TR 00 05 08 02 24 30 K- 68 BA Ac AM 37 -2 -0 0. MA 52 IL ti AD 84 3- 1- 00 RT 83 EY ve OL 15 20 20 0 5 10 08 08 PH CH HC 5 AR RI L M ST 50 #7 OP 17 HE MG 4 R M TA BL ET GL 00 07 08 00 30 30 K- 68 Ac YB 09 -2 -0 .0 MA 56 ND ti UR 39 2- 1- 00 RT 24 UM ve ID 36 20 20 8 AL E 40 08 08 PH LA 5 1 AR MG M GO #7 PI TA 17 K BL 4 ET LY 00 06 07 00 90 30 K- 44 BA Ac RI 07 -1 -1 .0 MA 51 IL ti CA 11 2- 7- 00 RT 76 EY ve 01 20 20 7 15 66 08 08 PH CH 0 8 AR RI MG M ST #7 OP CA 17 HE PS 4 R UL M E CR 00 06 07 00 30 30 K- 68 BA Ac ES 31 -1 -1 .0 MA 53 IL ti TO 00 2- 7- 00 RT 98 EY ve R 75 20 20 4 10 19 08 08 PH CH 0 AR RI MG M ST #7 OP TA 17 HE BL 4 R ET M AC 64 06 07 00 30 30 K- 68 BA Ac TO 76 -1 -1 .0 MA 53 IL ti S 40 2- 7- 00 RT 98 EY ve 30 30 20 20 5 11 08 08 PH CH MG [address] TA #7 OP BL 17 HE ET 4 R M 00 06 07 00 90 30 K- 68 BA Ac 14 -1 -1 .0 MA 53 IL ti 31 2- 7- 00 RT 98 EY ve 34 20 20 7 80 08 08 PH CH [address] #7 OP 17 HE 4 R M DI 57 06 07 00 30 30 K- 68 BA Ac GO 66 -1 -1 .0 MA 53 IL ti XI 40 2- 7- 00 RT 98 EY ve N 44 20 20 1 0. 18 08 08 PH CH [address] MG #7 OP 17 HE TA 4 R BL M ET FL 00 06 07 00 16 30 K- 68 BA Ac UT 05 -1 -1 .0 MA 53 IL ti IC 43 2- 7- 00 RT 97 EY ve 27 20 20 9 ON 09 08 08 PH CH E 9 AR RI GA M ST OP #7 OP 17 HE 50 4 R M MC G SP RA Y RO 00 06 07 00 30 30 K- 68 BA Ac PI 05 -1 -1 .0 MA 53 IL ti NI 40 2- 7- 00 RT 97 EY ve RO 11 20 20 8 LE 92 08 08 PH CH 5 AR RI HC M ST L #7 OP 2 17 HE MG 4 R M TA BL ET DI 00 04 07 02 60 30 CE 33 BA Ac AZ 59 -1 -1 .0 DA 55 IL ti EP 15 0- 7- 00 R 50 EY ve AM 62 20 20 TR 2 10 08 08 AC CH 1 E RI MG PH ST M OP TA IN HE BL C R ET M 64 06 07 00 60 30 K- 68 BA Ac 67 -1 -1 .0 MA 53 IL ti 90 2- 7- 00 RT 98 EY ve 90 20 20 6 60 08 08 PH CH [address] #7 OP 17 HE 4 R M FU 00 06 07 00 30 30 K- 68 BA Ac RO 37 -1 -1 .0 MA 53 IL ti SE 80 2- 7- 00 RT 98 EY ve WY 21 20 20 2 DE 61 08 08 PH CH 0 AR RI [address] #7 OP MG 17 HE 4 R TA M BL ET TR 00 06 07 00 30 30 K- 68 BA Ac IC 07 -1 -0 .0 MA 53 IL ti OR 46 2- 3- 00 RT 99 EY ve 12 20 20 1 14 39 08 08 PH CH 5 0 AR RI MG M ST #7 OP TA 17 HE BL 4 R ET M TR 00 05 07 01 24 30 K- 68 BA Ac AM 37 -2 -0 0. MA 52 IL ti AD 84 3- 3- 00 RT 83 EY ve OL 15 20 20 0 5 10 08 08 PH CH HC 5 AR RI L M ST 50 #7 OP 17 HE MG 4 R M TA BL ET 00 06 07 00 12 30 K- 68 BA Ac 78 -1 -0 0. MA 54 IL ti 15 3- 3- 00 RT 03 EY ve 05 20 20 0 1 00 08 08 PH CH [address] #7 OP 17 HE 4 R M GL 00 06 07 00 30 15 K- 68 BA Ac YB 09 -1 -0 .0 MA 53 IL ti UR 39 2- 3- 00 RT 99 EY ve ID 36 20 20 0 E 40 08 08 PH CH 5 1 AR RI MG M ST #7 OP TA 17 HE BL 4 R ET M EN 64 06 07 00 12 30 K- 68 BA Ac AL 67 -1 -0 0. MA 53 IL ti AP 90 2- 3- 00 RT 98 EY ve RI 92 20 20 0 0 L 50 08 08 PH CH MA 2 AR RI LE M ST AT #7 OP E 17 HE 10 4 R M MG TA B DI 00 04 06 01 60 30 CE 33 BA Ac AZ 59 -1 -1 .0 DA 55 IL ti EP 15 0- 2- 00 R 50 EY ve AM 62 20 20 TR 2 10 08 08 AC CH 1 E RI MG PH ST M OP TA IN HE BL C R ET M GA 68 05 06 00 12 4 K- 68 HU Ac OM 38 -3 -1 .0 MA 53 NT ti ET 20 1- 2- 00 RT 23 ER ve CASTELAN 04 20 20 6 ZI 10 08 08 PH BR NE 1 AR IA M N 25 #7 17 MG 4 TA BL ET 00 04 06 02 90 30 CE 33 BA Ac 60 -0 -1 .0 DA 53 IL ti 33 4- 2- 00 R 53 EY ve 33 20 20 TR 83 08 08 AC CH [address] M OP IN HE C R M 64 04 06 02 30 30 CE 33 Ac 01 -0 -1 .0 DA 52 ND ti 10 1- 2- 00 R 99 UM ve 16 20 20 TR AL 32 08 08 AC LA 6 E PH GO M PI IN K C TR 00 05 06 00 24 30 K- 68 BA Ac AM 37 -2 -0 0. MA 52 IL ti AD 84 3- 5- 00 RT 83 EY ve OL 15 20 20 0 5 10 08 08 PH CH HC 5 AR RI L M ST 50 #7 OP 17 HE MG 4 R M TA BL ET LY 00 03 06 02 90 30 CE 33 No Ac RI 07 -2 -0 .0 DA 49 t ti CA 11 4- 5- 00 R 40 Av ve 01 20 20 TR ai 15 66 08 08 AC la 0 8 E bl MG PH e M CA IN PS C UL E FU 00 03 06 02 30 30 CE 33 No Ac RO 78 -2 -0 .0 DA 49 t ti SE 11 4- 5- 00 R 51 Av ve WY 96 20 20 TR ai DE 61 08 08 AC la 0 E bl 40 PH e M MG IN C TA BL ET AC 64 03 06 02 30 30 CE 33 No Ac TO 76 -2 -0 .0 DA 49 t ti S 40 4- 5- 00 R 50 Av ve 30 30 20 20 TR ai 11 08 08 AC la MG 4 E bl PH e TA M BL IN ET C 00 03 06 02 30 30 CE 33 No Ac 17 -2 -0 .0 DA 49 t ti 30 4- 5- 00 R 42 Av ve 24 20 20 TR ai 95 08 08 AC la 5 E bl PH e M IN C FL 00 03 06 02 16 25 CE 33 No Ac UT 05 -2 -0 .0 DA 49 t ti IC 43 4- 5- 00 R 43 Av ve 27 20 20 TR ai ON 09 08 08 AC la E 9 E bl GA PH e OP M IN 50 C MC G SP RA Y 00 03 06 02 60 30 CE 33 No Ac 18 -2 -0 .0 DA 49 t ti 50 4- 5- 00 R 45 Av ve 21 20 20 TR ai 30 08 08 AC la 5 E bl PH e M IN C LO 00 03 06 02 30 30 CE 33 No Ac RA 78 -2 -0 .0 DA 49 t ti TA 15 4- 5- 00 R 44 Av ve DI 07 20 20 TR ai NE 70 08 08 AC la 1 E bl 10 PH e M MG IN C TA BL ET RO 00 04 06 01 30 30 CE 33 No Ac PI 37 -2 -0 .0 DA 60 t ti NI 85 8- 5- 00 R 08 Av ve RO 50 20 20 TR ai LE 10 08 08 AC la 1 E bl HC PH e L M 1 IN MG C TA BL ET 49 03 06 02 60 30 CE 33 No Ac 88 -2 -0 .0 DA 49 t ti 40 4- 5- 00 R 47 Av ve 54 20 20 TR ai 40 08 08 AC la 5 E bl PH e M IN C 67 03 06 02 90 30 CE 33 No Ac 25 -2 -0 .0 DA 49 t ti 30 4- 5- 00 R 48 Av ve 62 20 20 TR ai 25 08 08 AC la 0 E bl PH e M IN C CR 00 03 06 02 30 30 CE 33 No Ac ES 31 -2 -0 .0 DA 49 t ti TO 00 4- 5- 00 R 49 Av ve R 75 20 20 TR ai 10 19 08 08 AC la 0 E bl MG PH e M TA IN BL C ET GE 00 03 06 02 60 30 CE 33 No Ac MF 09 -2 -0 .0 DA 49 t ti IB 30 4- 5- 00 R 46 Av ve RO 67 20 20 TR ai ZI 00 08 08 AC la L 6 E bl 60 PH e 0 M MG IN C TA BL ET 57 03 06 02 60 30 CE 33 No Ac 66 -2 -0 .0 DA 49 t ti 40 4- 5- 00 R 52 Av ve 16 20 20 TR ai 61 08 08 AC la 8 E bl PH e M IN C EN 51 03 05 02 12 30 CE 33 No Ac AL 67 -2 -2 0. DA 49 t ti AP 24 4- 2- 00 R 41 Av ve RI 03 20 20 0 TR ai L 90 08 08 AC la MA 1 E bl LE PH e AT M E IN 10 C MG TA B 00 05 05 00 18 7 CE 33 No Ac 47 -1 -2 0. DA 64 t ti 21 3- 2- 00 R 99 Av ve 62 20 20 0 TR ai 71 08 08 AC la 6 E bl PH e M IN C 00 04 05 01 90 30 CE 33 No Ac 60 -0 -2 .0 DA 53 t ti 33 4- 2- 00 R 53 Av ve 33 20 20 TR ai 83 08 08 AC la 2 E bl PH e M IN C 00 04 05 00 18 3 CE 33 No Ac 47 -2 -0 0. DA 60 t ti 21 8- 8- 00 R 06 Av ve 62 20 20 0 TR ai 71 08 08 AC la 6 E bl PH e M IN C CR 00 03 05 01 30 30 CE 33 No Ac ES 31 -2 -0 .0 DA 49 t ti TO 00 4- 8- 00 R 49 Av ve R 75 20 20 TR ai 10 19 08 08 AC la 0 E bl MG PH e M TA IN BL C ET 67 03 05 01 90 30 CE 33 No Ac 25 -2 -0 .0 DA 49 t ti 30 4- 8- 00 R 48 Av ve 62 20 20 TR ai 25 08 08 AC la 0 E bl PH e M IN C FU 00 03 05 01 30 30 CE 33 No Ac RO 78 -2 -0 .0 DA 49 t ti SE 11 4- 8- 00 R 51 Av ve WY 96 20 20 TR ai DE 61 08 08 AC la 0 E bl 40 PH e M MG IN C TA BL ET 49 03 05 01 60 30 CE 33 No Ac 88 -2 -0 .0 DA 49 t ti 40 4- 8- 00 R 47 Av ve 54 20 20 TR ai 40 08 08 AC la 5 E bl PH e M IN C FL 00 03 05 01 16 25 CE 33 No Ac UT 05 -2 -0 .0 DA 49 t ti IC 43 4- 8- 00 R 43 Av ve 27 20 20 TR ai ON 09 08 08 AC la E 9 E bl GA PH e OP M IN 50 C MC G SP RA Y LO 00 03 05 01 30 30 CE 33 No Ac RA 78 -2 -0 .0 DA 49 t ti TA 15 4- 8- 00 R 44 Av ve DI 07 20 20 TR ai NE 70 08 08 AC la 1 E bl 10 PH e M MG IN C TA BL ET AC 64 03 05 01 30 30 CE 33 No Ac TO 76 -2 -0 .0 DA 49 t ti S 40 4- 8- 00 R 50 Av ve 30 30 20 20 TR ai 11 08 08 AC la MG 4 E bl PH e TA M BL IN ET C 64 04 05 01 30 30 CE 33 No Ac 01 -0 -0 .0 DA 52 t ti 10 1- 8- 00 R 99 Av ve 16 20 20 TR ai 32 08 08 AC la 6 E bl PH e M IN C 57 03 05 01 60 30 CE 33 No Ac 66 -2 -0 .0 DA 49 t ti 40 4- 8- 00 R 52 Av ve 16 20 20 TR ai 61 08 08 AC la 8 E bl PH e M IN C GE 00 03 05 01 60 30 CE 33 No Ac MF 09 -2 -0 .0 DA 49 t ti IB 30 4- 8- 00 R 46 Av ve RO 67 20 20 TR ai ZI 00 08 08 AC la L 6 E bl 60 PH e 0 M MG IN C TA BL ET LY 00 03 05 01 90 30 CE 33 No Ac RI 07 -2 -0 .0 DA 49 t ti CA 11 4- 8- 00 R 40 Av ve 01 20 20 TR ai 15 66 08 08 AC la 0 8 E bl MG PH e M CA IN PS C UL E 62 03 05 01 30 30 CE 33 No Ac 79 -2 -0 .0 DA 49 t ti 40 4- 8- 00 R 42 Av ve 14 20 20 TR ai 60 08 08 AC la 1 E bl PH e M IN C 00 03 05 01 60 30 CE 33 No Ac 18 -2 -0 .0 DA 49 t ti 50 4- 8- 00 R 45 Av ve 21 20 20 TR ai 30 08 08 AC la 5 E bl PH e M IN C DI 00 04 05 00 60 30 CE 33 No Ac AZ 59 -1 -0 .0 DA 55 t ti EP 15 0- 8- 00 R 50 Av ve AM 62 20 20 TR ai 2 10 08 08 AC la 1 E bl MG PH e M TA IN BL C ET RE 00 04 05 00 30 30 CE 33 No Ac QU 00 -2 -0 .0 DA 60 t ti IP 74 8- 8- 00 R 08 Av ve 1 89 20 20 TR ai 22 08 08 AC la MG 0 E bl PH e TA M BL IN ET C CLARK 53 04 04 00 14 7 CE 33 No Ac LF 48 -1 -2 .0 DA 57 t ti AM 90 8- 4- 00 R 55 Av ve ET 14 20 20 TR ai HO 60 08 08 AC la XA 1 E bl ZO PH e LE M -T IN MP C DS TA BL ET EN 51 03 04 01 12 30 CE 33 No Ac AL 67 -2 -2 0. DA 49 t ti AP 24 4- 4- 00 R 41 Av ve RI 03 20 20 0 TR ai L 90 08 08 AC la MA 1 E bl LE PH e AT M E IN 10 C MG TA B CR 00 03 04 00 30 30 K- 68 No Ac ES 31 -1 -1 .0 MA 48 t ti TO 00 8- 7- 00 RT 60 Av ve R 75 20 20 8 ai 10 19 08 08 PH la 0 AR bl MG M e #7 TA 17 BL 4 ET FU 00 03 04 00 30 30 K- 68 No Ac RO 37 -1 -1 .0 MA 48 t ti SE 80 8- 7- 00 RT 60 Av ve WY 21 20 20 5 ai DE 61 08 08 PH la 0 AR bl 40 M e #7 MG 17 4 TA BL ET EN 64 03 04 00 12 30 K- 68 No Ac AL 67 -1 -1 0. MA 48 t ti AP 90 8- 7- 00 RT 60 Av ve RI 92 20 20 0 1 ai L 50 08 08 PH la MA 2 AR bl LE M e AT #7 E 17 10 4 MG TA B 00 03 04 00 90 30 K- 68 No Ac 14 -1 -1 .0 MA 48 t ti 31 8- 7- 00 RT 60 Av ve 34 20 20 4 ai 80 08 08 PH la 1 AR bl M e #7 17 4 DI 57 03 04 00 30 30 K- 68 No Ac GO 66 -1 -1 .0 MA 48 t ti XI 40 8- 7- 00 RT 60 Av ve N 44 20 20 6 ai 0. 18 08 08 PH la 25 8 AR bl M e MG #7 17 TA 4 BL ET AC 64 03 04 00 30 30 K- 68 No Ac TO 76 -1 -1 .0 MA 48 t ti S 40 8- 7- 00 RT 60 Av ve 30 30 20 20 7 ai 11 08 08 PH la MG 4 AR bl M e TA #7 BL 17 ET 4 TR 00 03 04 00 30 30 K- 68 No Ac IC 07 -1 -1 .0 MA 48 t ti OR 46 8- 7- 00 RT 60 Av ve 12 20 20 3 ai 14 39 08 08 PH la 5 0 AR bl MG M e #7 TA 17 BL 4 ET 64 03 04 00 60 30 K- 68 No Ac 67 -1 -1 .0 MA 48 t ti 90 8- 7- 00 RT 60 Av ve 90 20 20 0 ai 60 08 08 PH la 1 AR bl M e #7 17 4 ME 00 03 04 00 60 30 K- 68 No Ac TO 37 -1 -1 .0 MA 48 t ti GA 80 8- 7- 00 RT 60 Av ve OL 03 20 20 2 ai OL 21 08 08 PH la 0 AR bl TA M e RT #7 RA 17 TE 4 50 MG TA B LY 00 03 04 00 90 30 K- 44 No Ac RI 07 -1 -1 .0 MA 50 t ti CA 11 8- 7- 00 RT 91 Av ve 01 20 20 6 ai 15 66 08 08 PH la 0 8 AR bl MG M e #7 CA 17 PS 4 UL E LO 00 03 04 00 30 30 CE 33 No Ac RA 78 -2 -1 .0 DA 49 t ti TA 15 4- 0- 00 R 44 Av ve DI 07 20 20 TR ai NE 70 08 08 AC la 1 E bl 10 PH e M MG IN C TA BL ET 00 03 04 00 60 30 CE 33 No Ac 18 -2 -1 .0 DA 49 t ti 50 4- 0- 00 R 45 Av ve 21 20 20 TR ai 30 08 08 AC la 5 E bl PH e M IN C FU 00 03 04 00 30 30 CE 33 No Ac RO 78 -2 -1 .0 DA 49 t ti SE 11 4- 0- 00 R 51 Av ve WY 96 20 20 TR ai DE 61 08 08 AC la 0 E bl 40 PH e M MG IN C TA BL ET 57 03 04 00 60 30 CE 33 No Ac 66 -2 -1 .0 DA 49 t ti 40 4- 0- 00 R 52 Av ve 16 20 20 TR ai 61 08 08 AC la 8 E bl PH e M IN C EN 51 03 04 00 12 30 CE 33 No Ac AL 67 -2 -1 0. DA 49 t ti AP 24 4- 0- 00 R 41 Av ve RI 03 20 20 0 TR ai L 90 08 08 AC la MA 1 E bl LE PH e AT M E IN 10 C MG TA B AC 64 03 04 00 30 30 CE 33 No Ac TO 76 -2 -1 .0 DA 49 t ti S 40 4- 0- 00 R 50 Av ve 30 30 20 20 TR ai 11 08 08 AC la MG 4 E bl PH e TA M BL IN ET C 62 03 04 00 30 30 CE 33 No Ac 79 -2 -1 .0 DA 49 t ti 40 4- 0- 00 R 42 Av ve 14 20 20 TR ai 60 08 08 AC la 1 E bl PH e M IN C 49 03 04 00 60 30 CE 33 No Ac 88 -2 -1 .0 DA 49 t ti 40 4- 0- 00 R 47 Av ve 54 20 20 TR ai 40 08 08 AC la 5 E bl PH e M IN C CR 00 03 04 00 30 30 CE 33 No Ac ES 31 -2 -1 .0 DA 49 t ti TO 00 4- 0- 00 R 49 Av ve R 75 20 20 TR ai 10 19 08 08 AC la 0 E bl MG PH e M TA IN BL C ET LY 00 03 04 00 90 30 CE 33 No Ac RI 07 -2 -1 .0 DA 49 t ti CA 11 4- 0- 00 R 40 Av ve 01 20 20 TR ai 15 66 08 08 AC la 0 8 E bl MG PH e M CA IN PS C UL E FL 00 03 04 00 16 25 CE 33 No Ac UT 05 -2 -1 .0 DA 49 t ti IC 43 4- 0- 00 R 43 Av ve 27 20 20 TR ai ON 09 08 08 AC la E 9 E bl GA PH e OP M IN 50 C MC G SP RA Y GE 00 03 04 00 60 30 CE 33 No Ac MF 09 -2 -1 .0 DA 49 t ti IB 30 4- 0- 00 R 46 Av ve RO 67 20 20 TR ai ZI 00 08 08 AC la L 6 E bl 60 PH e 0 M MG IN C TA BL ET 67 03 04 00 90 30 CE 33 No Ac 25 -2 -1 .0 DA 49 t ti 30 4- 0- 00 R 48 Av ve 62 20 20 TR ai 25 08 08 AC la 0 E bl PH e M IN C DI 00 01 04 02 60 30 EC 46 No Ac AZ 37 -2 -1 .0 ON 58 t ti EP 80 9- 0- 00 OM 43 Av ve AM 27 20 20 Y 4 ai [address] la 1 UG bl MG e CO TA BL IN ET C 00 04 04 00 90 30 CE 33 No Ac 60 -0 -1 .0 DA 53 t ti 33 4- 0- 00 R 53 Av ve 33 20 20 TR ai 83 08 08 AC la 2 E bl PH e M IN C ME 68 04 04 00 60 30 CE 33 No Ac TF 38 -0 -1 .0 DA 53 t ti OR 20 3- 0- 00 R 01 Av ve WY 03 20 20 TR ai N 00 08 08 AC la HC 5 E bl L PH e 1, M 00 IN 0 C MG TA BL ET 64 04 04 00 30 30 CE 33 No Ac 01 -0 -1 .0 DA 52 t ti 10 1- 0- 00 R 99 Av ve 16 20 20 TR ai 32 08 08 AC la 6 E bl PH e M IN C RE 00 02 04 02 30 30 CE 33 No Ac QU 00 -0 -1 .0 DA 36 t ti IP 74 8- 0- 00 R 56 Av ve 1 89 20 20 TR ai 22 08 08 AC la MG 0 E bl PH e TA M BL IN ET C RE 00 02 04 01 30 30 CE 33 No Ac QU 00 -0 -0 .0 DA 36 t ti IP 74 8- 7- 00 R 56 Av ve 1 89 20 20 TR ai 22 08 08 AC la MG 0 E bl PH e TA M BL IN ET C 63 01 04 00 40 10 K- 68 No Ac 30 -2 -0 .0 MA 47 t ti 40 9- 7- 00 RT 47 Av ve 65 20 20 8 ai 70 08 08 PH la 5 AR bl M e #7 17 4 DI 00 01 04 01 60 30 EC 46 No Ac AZ 37 -2 -0 .0 ON 58 t ti EP 80 9- 7- 00 OM 43 Av ve AM 27 20 20 Y 4 ai [address] la 1 UG bl MG e CO TA BL IN ET C TR 00 08 03 02 30 30 K- 68 No Ac IC 07 -2 -2 .0 MA 43 t ti OR 46 7- 6- 00 RT 16 Av ve 12 20 20 4 ai 14 39 07 08 PH la 5 0 AR bl MG M e #7 TA 17 BL 4 ET LY 00 12 03 02 90 30 K- 44 No Ac RI 07 -1 -2 .0 MA 50 t ti CA 11 9- 6- 00 RT 11 Av ve 01 20 20 3 ai 15 66 07 08 PH la 0 8 AR bl MG M e #7 CA 17 PS 4 UL E 00 08 03 02 90 30 K- 68 No Ac 14 -2 -2 .0 MA 43 t ti 31 7- 6- 00 RT 16 Av ve 34 20 20 3 ai 80 07 08 PH la 1 AR bl M e #7 17 4 ME 00 08 03 02 60 30 K- 68 No Ac TO 37 -2 -2 .0 MA 43 t ti GA 80 7- 6- 00 RT 16 Av ve OL 03 20 20 7 ai OL 21 07 08 PH la 0 AR bl TA M e RT #7 RA 17 TE 4 50 MG TA B RE 00 02 03 00 30 30 CE 33 No Ac QU 00 -0 -2 .0 DA 36 t ti IP 74 8- 6- 00 R 56 Av ve 1 89 20 20 TR ai 22 08 08 AC la MG 0 E bl PH e TA M BL IN ET C FU 00 08 03 02 30 30 K- 68 No Ac RO 37 -2 -2 .0 MA 43 t ti SE 80 7- 6- 00 RT 16 Av ve WY 21 20 20 1 ai DE 61 07 08 PH la 0 AR bl 40 M e #7 MG 17 4 TA BL ET CR 00 12 03 02 30 30 K- 68 No Ac ES 31 -1 -2 .0 MA 43 t ti TO 00 9- 6- 00 RT 15 Av ve R 75 20 20 7 ai 10 19 07 08 PH la 0 AR bl MG M e #7 TA 17 BL 4 ET AC 64 08 03 02 30 30 K- 68 No Ac TO 76 -2 -2 .0 MA 43 t ti S 40 7- 6- 00 RT 15 Av ve 30 30 20 20 8 ai 11 07 08 PH la MG 4 AR bl M e TA #7 BL 17 ET 4 DI 57 08 03 02 30 30 K- 68 No Ac GO 66 -2 -2 .0 MA 43 t ti XI 40 7- 6- 00 RT 16 Av ve N 44 20 20 0 ai 0. 18 07 08 PH la 25 8 AR bl M e MG #7 17 TA 4 BL ET ME 68 12 03 02 12 30 CE 33 No Ac TF 38 -2 -2 0. DA 20 t ti OR 20 1- 6- 00 R 69 Av ve WY 02 20 20 0 TR ai N 80 07 08 AC la HC 5 E bl L PH e 50 M 0 IN MG C TA BL ET 00 01 03 00 60 30 EC 46 No Ac 55 -2 -2 .0 ON 58 t ti 50 9- 6- 00 OM 43 Av ve 16 20 20 Y 4 ai [address] la 2 UG bl e CO IN C 60 08 03 02 60 30 K- 68 No Ac 50 -2 -2 .0 MA 43 t ti 50 7- 6- 00 RT 16 Av ve 02 20 20 2 ai 50 07 08 PH la 4 AR bl M e #7 17 4 EN 64 08 03 02 12 30 K- 68 No Ac AL 67 -2 -2 0. MA 43 t ti AP 90 7- 6- 00 RT 17 Av ve RI 92 20 20 0 7 ai L 50 07 08 PH la MA 2 AR bl LE M e AT #7 E 17 10 4 MG TA B TR 00 08 03 01 30 30 K- 68 No Ac IC 07 -2 -2 .0 MA 43 t ti OR 46 7- 5- 00 RT 16 Av ve 12 20 20 4 ai 14 39 07 08 PH la 5 0 AR bl MG M e #7 TA 17 BL 4 ET DI 57 08 03 01 30 30 K- 68 No Ac GO 66 -2 -2 .0 MA 43 t ti XI 40 7- 5- 00 RT 16 Av ve N 44 20 20 0 ai 0. 18 07 08 PH la 25 8 AR bl M e MG #7 17 TA 4 BL ET 00 08 03 01 90 30 K- 68 No Ac 14 -2 -2 .0 MA 43 t ti 31 7- 5- 00 RT 16 Av ve 34 20 20 3 ai 80 07 08 PH la 1 AR bl M e #7 17 4 EN 64 08 03 01 12 30 K- 68 No Ac AL 67 -2 -2 0. MA 43 t ti AP 90 7- 5- 00 RT 17 Av ve RI 92 20 20 0 7 ai L 50 07 08 PH la MA 2 AR bl LE M e AT #7 E 17 10 4 MG TA B CR 00 12 03 01 30 30 K- 68 No Ac ES 31 -1 -2 .0 MA 43 t ti TO 00 9- 5- 00 RT 15 Av ve R 75 20 20 7 ai 10 19 07 08 PH la 0 AR bl MG M e #7 TA 17 BL 4 ET ME 00 08 03 01 60 30 K- 68 No Ac TO 37 -2 -2 .0 MA 43 t ti GA 80 7- 5- 00 RT 16 Av ve OL 03 20 20 7 ai OL 21 07 08 PH la 0 AR bl TA M e RT #7 RA 17 TE 4 50 MG TA B ME 68 12 03 01 12 30 CE 33 No Ac TF 38 -2 -2 0. DA 20 t ti OR 20 1- 5- R 69 Av ve WY 02 20 20 0 TR ai N 80 07 08 AC la HC 5 E bl L PH e 50 M 0 IN MG C TA BL ET LY 00 12 03 01 90 30 K- 44 No Ac RI 07 -1 -2 .0 MA 50 t ti CA 11 9- 5- 00 RT 11 Av ve 01 20 20 3 ai 15 66 07 08 PH la 0 8 AR bl MG M e #7 CA 17 PS 4 UL E 60 08 03 01 60 30 K- 68 No Ac 50 -2 -2 .0 MA 43 t ti 50 7- 5- 00 RT 16 Av ve 02 20 20 2 ai 50 07 08 PH la 4 AR bl M e #7 17 4 FU 00 08 03 01 30 30 K- 68 No Ac RO 37 -2 -2 .0 MA 43 t ti SE 80 7- 5- 00 RT 16 Av ve WY 21 20 20 1 ai DE 61 07 08 PH la 0 AR bl 40 M e #7 MG 17 4 TA BL ET AC 64 08 03 01 30 30 K- 68 No Ac TO 76 -2 -2 .0 MA 43 t ti S 40 7- 5- 00 RT 15 Av ve 30 30 20 20 8 ai 11 07 08 PH la MG 4 AR bl M e TA #7 BL 17 ET 4 AC 00 01 03 00 12 30 K- 44 No Ac ET 40 -0 -2 0. MA 50 t ti AM 60 3- 4- 00 RT 20 Av ve IN 48 20 20 0 5 ai OP 40 08 08 PH la HE 1 AR bl N- M e CO #7 D 17 #3 4 TA BL ET Procedures Procedure DOS Code Location Performer Comment MEASUREME [id number] RADHA GARCIA NT 5 W W [facility] PRESS RT HEART PERQ TRANSFUSI [id number] RADHA GARCIA ON 5 W W NONAUTO [facility] RED BLD MEDICAL MEDICAL CELLS PERIPH VN PERQ LEFT 3722 [facility] [place] 5 Y Y CARDIAC [facility] CATHETERI ZATION CORONARY 8856 [facility] 5 Y Y [facility] USING TWO CATHETERS INSERTION 3607 [facility] 5 Y [facility] CORONARY ARTERY STENT INSERTION 0046 [facility] 5 Y Y VASCULAR [facility] STENTS PERQ 0066 [facility] 5 Y Y [facility] CORONARY ANGIOPLAS TY PTCA INSERTION [address] [place] [id number] [facility] IMPL MEDICAL MEDICAL VASCULAR CE CE ACCESS DEVICE Encounters Encounter Start End Date Code Location Performer Type Date [facility] - 7 7 [facility] - 7 7 [facility] 7 7 REPLACED BY [facility] - [facility] 7 [facility] - 7 7 [facility] - 7 7 [facility] 7 7 [facility] INPAT[facility] 7 7 REPLACED BY [facility] - 7 7 [facility] - 7 7 [facility]PAT[facility] 7 7 REPLACED BY [facility] - 7 7 [facility] - 7 7 [facility] - 7 7 [facility] - 7 7 [facility] - 6 6 [facility] - 6 6 [facility]PAT[facility] - 6 6 [facility]PATI[facility] - 6 6 [facility]PATI[facility] - 6 6 [facility]PATI[facility] - 6 6 [facility]PATI[facility] - 6 6 [facility] OUTPATIEN [facility] - 6 6 [facility] OUTPATIEN [facility] - 6 6 [facility]PATIEN [facility] - 6 6 [facility]PATI[facility] - 6 6 [facility]PATI[facility] - 6 6 [facility]PATIEN [facility] HOSPICE 6 6 [facility] 6 6 [facility] 5 5 [facility] 5 5 [facility] 5 5 [facility] - 5 5 [facility] 5 5 [facility] 5 5 [facility] - 5 5 [facility] - 5 5 [facility] 5 5 [facility] 5 5 [facility] - 5 5 [facility] - 5 5 [facility] OTHER 5 5 [facility] - 5 5 [facility] 5 5 [facility] - 5 5 [facility]PATI[facility] 5 5 [facility] - 5 5 [facility] 5 5 [facility] 5 5 [facility] SOCRATES - 5 5 [facility] OUTPATIEN INC T HOME [facility], 5 5 HOME OUTPATIEN HEALTH T AGENCY HOME [facility], 5 5 HOME OUTPATIEN HEALTH T AGENCY HOME [facility] 5 5 HOME OUTPATIEN HEALTH T [facility], 4 4 HOME OUTPATIEN HEALTH T [facility] - 4 4 [facility] - 4 4 [facility]PATI[facility] [place] - 4 4 REGIONAL OUTPATIEN MEDICAL [facility] - 4 4 [facility]PATIEN [facility] - 4 4 [facility]PATI[facility] [place] - 4 4 REGIONAL OUTPATIEN MEDICAL [facility] - 4 4 [facility] [place] [facility] 4 4 [facility] [place] - 4 4 [facility] - 4 4 [facility] 4 4 [facility] 3 3 [facility] OUTPATIEN [facility] [place] - 3 3 REGIONAL OUTPATIEN [facility] 3 3 [facility]EN [facility] [place] - 2 2 REGIONAL OUTPATIEN MEDICAL [facility] [place] [facility] 2 2 REGIONAL OUTPATIEN MED[facility] [place] [facility] 1 1 REGIONAL OUTPATIEN MED[facility] [place] - 1 1 REGIONAL INPATIENT MED[facility] [place] [facility] 0 0 MED[facility]PATI[facility] [place] [facility] 0 0 [facility]PATI[facility] [place] [facility] 0 [facility]PATIEN [facility] [place] [facility] 0 0 [facility] [place] - 9 9 [facility] [place] - 9 9 [facility]PATIEN [facility] [place] [facility] 9 9 [facility]PATI[facility] [place] - 8 8 [facility]PATIEN [facility] [place] - 8 8 REG[facility]PATIEN [facility] [place] - 8 8 [facility]PATI[facility] [place] - 8 8 [facility]PATI[facility] [place] [facility] 8 8 [facility]PATI[facility] [place] - 8 8 [facility]PAT[facility] 8 8 REGIONAL OUTPATIEN [facility] [place] - 8 8 [facility]PATI[facility] [place] [facility] 8 8 [facility]PATIEN [facility] [place] - 8 8 [facility]PATI[facility] [place] - 8 8 [facility]PATI[facility] [place] - 8 8 [facility]PATI[facility] [place] - 8 8 [facility]PATI[facility] [place] [facility] 8 8 [facility] [place] [facility] 8 8 [facility] 8 8 N [facility]PATIEN [facility]
--- OUTSIDE RECORDS SUMMARY | 2017-03-11 05:55 | External Medical Summary Rpt | CCD ---
Author Author , NOREEN Thomas NOREEN Address Unknown Phone [email or web address] Care Team Providers Care Mobile Device Engineer Name Role Phone [facility], [facility] Unavailable Unavailable [facility] Unavailable Unavailable ASSOCIATES, [facility] Unavailable Unavailable RESPONSE, [facility] RHODA BACA MD, PSC, Unavailable Unavailable RHODA BACA MD, PSC [facility] Unavailable [place], [facility] [place] KENTON ARMIJO, Unavailable Unavailable [facility] AR[facility]JO MD, Unavailable Unavailable [facility], ROSY POWELL MD, [facility] MASSIMO MARISCAL Unavailable Unavailable M, MASSIMO MARISCAL, Unavailable Unavailable GraceP.S.CIrena, LES MARCH M.D.P.S.CIrena BHAGRATHSIMINKSENIA S, Unavailable Unavailable BHAGRATH KSENIA S [facility] Unavailable Unavailable ON RED, [facility] ON [facility] Unavailable Unavailable SERVICE, [facility] Unavailable Unavailable SERVICE, [facility]available Unavailable SERVICE, [facility] Unavailable Unavailable CONSULTANTS O, [facility], Unavailable Unavailable [facility] Unavailable Unavailable [facility], [facility] YANG, Unavailable Unavailable YANG DEAN REGINA CRUTCHER KOKO, Unavailable Unavailable INDY KOKO [facility] Unavailable [facility], [facility] KEY, [place]ES[place]A, Unavailable Unavailable KEY, [place] [facility] Unavailable Unavailable KIDNEY CARE, [facility] Unavailable Unavailable [facility]SC, [facility], Unavailable Unavailable [facility] FALLIS DIANA, FALLIS Unavailable Unavailable DIANA [facility] Unavailable Unavailable #[id number], [id number] MORRO ZHENG, Unavailable Unavailable MORRO ZHENG GOPI K, Unavailable Unavailable ISABEL ALVARADO [facility] Unavailable Unavailable PHARMACY, [facility], Unavailable Unavailable [facility] Unavailable Unavailable INC, [facility] Un[facility], [facility] Un[facility]available [facility]PITAL P, [facility] P [facility] Unavailable [facility]available MEDICAL CE, [facility] Unavailable Unavailable MEDICAL CENT, [facility] Unavailable Unavailable INC, [facility], Unavailable Unavailable [facility] Unavailable Unavailable PLL, [facility], Unavailable Unavailable HOSPICE [facility] Unavailable Unavailable PHYSICIANS, [facility] MODI, VANDANA Cox, RIAN, Unavailable Unavailable VANDANA [facility] Unavailable Unavailable [place], [facility] [place] [facility], Unavailable Unavailable [id number] Unavailable Unavailable [id number] Unavailable Unavailable PHARMACY, [facility] Un[facility], [facility] Unavailable Unavailable VASCULAR PH, [facility] Unavailable Unavailable IMAGING ASS, [facility] # Unavailable Unavailable [id number], [facility] # [id number] [place] [facility] Unavailable Unavailable [facility]ANC[facility], [facility], [facility] Unavailable Unavailable COMMUNITY ACT, [facility] LUIS E HAM, LUIS E HAM Unavailable Unavailable [facility] Unavailable Unavailable ASSOCIAT, [facility] Un[facility] SURG[facility], [facility] Unavailable Unavailable MEDICAL, [facility] Un[facility] Unavailable LLC, [facility] [place] Unavailable Unavailable PHARMACY, [facility], Unavailable Unavailable [facility], [place] [facility] Unavailable Unavailable AMBULANCE SE, [facility] SE [facility], Unavailable Unavailable PLLC, [facility] KRAFT ANTONINA, KRAFT Unavailable Unavailable ANTONINA PAWSAT, PAWSAT Unavailable Unavailable PAWSAT MAR, PAWSAT Unavailable Unavailable MAR HURLEY, RAMOS W, Unavailable Unavailable HURLEY, RAMOS W PEASI, PEASI Unavailable Unavailable [facility] Unavailable Unavailable PRACTICE CL, [facility] PRACTICE CL [facility] Unavailable Unavailable AMBULAN, [facility] Unavailable Unavailable [facility], [facility], Unavailable Unavailable [facility] Unavailable Unavailable SERVICE, [facility] PROVID[facility] Unavailable Unavailable SERVICES IN, [facility] Unavailable Unavailable [facility]ALTH[facility], [facility] Unavailable Unavailable HEALTH CARE, [facility], Unavailable Unavailable [facility] KETTY BROTHERS, ZEV, Unavailable Unavailable KETTY Carcamo [facility] Unavailable Unavailable EQUIPME, [facility], Unavailable Unavailable [facility] ZE BLACK[facility], Unavailable Unavailable ZE BLACKWELL [facility] Unavailable Unavailable HOSPITALS, [facility], Unavailable Unavailable [facility], Unavailable Unavailable [facility] # Unavailable Unavailable [id number], [facility] # [id number] [facility] Unavailable Unavailable AGENCY, [facility] ZE MAN, Unavailable Unavailable ZE MAN WILLIAM Unavailable Unavailable Bryn, CUONG LECHUGA PHILIP N, Unavailable Unavailable MICHAEL DE LA ROSA Purpose Continuity of Care Document - 10-31-2006 through 2016 Problems Code Diagnosis DOS Provider Status N179 ACUTE 02-12-2017 [facility] UNSPECIFIED [id number] ULCERATIVE 01-29-2017 [facility] [facility] LEFT LOWER CENTER EYELID D649 ANEMIA 01-27-2017 [facility] UNSPECIFIED PHYSICIANS, PLLC E119 TYPE 2 01-27-2017 [facility] DI[facility]ES [facility] MELLITUS INC WITHOUT COMPLICATIO NS I10 ESSENTIAL 01-27-2017 [facility] PRIMARY [facility] HYPERTENSIO INC N I110 HYPERTENSIV 01-27-2017 [facility]ANS, DISEASE PLL WITH HEART FAILURE I5043 ACUTE ON 01-27-2017 [facility] CHRONIC PHYSICIANS, COMB [facility] SYSTOLIC & DIASTOLIC CHF J449 CHRONIC 01-27-2017 [facility] OBSTRUCTIVE [facility] PULMONARY INC DISEASE UNS K219 GASTRO-ESOP 01-27-2017 [facility] H REFLUX [facility] DISEASE INC WITHOUT ESOPHAGITIS R0689 OTHER 01-27-2017 [facility] AMBULANCE BREATHING SE R079 CHEST PAIN 01-27-2017 [place] UNSPECIFIED [facility]ICAL IMAGING ASS Z7409 OTHER 01-27-2017 [facility] MOB[facility] AMBULANCE SE Z794 PARTS PULLER 01-27-2017 [facility] CURRENT USE [facility] OF INSULIN INC Z7982 FDC 01-27-2017 [facility] CURRENT USE [facility] OF ASPIRIN INC I2510 [place] 01-22-2017 [facility] ARTERY W/O HOSPITALS ANGINA PECTORIS I252 OLD 01-22-2017 [facility] INFARCTION HOSPITALS I255 ISCHEMIC 01-22-2017 [facility] THY HOSPITALS I472 VENTRICULAR 01-22-2017 [facility]ALTHCARE TACHYCARDIA HOSPITALS I5022 CHRONIC 01-22-2017 [facility] CONGESTIVE HOSPITALS HEART FAILURE I509 HEART 01-22-2017 [facility] FAILURE HEALTH UNSPECIFIED ASSOCIATES R0609 OTHER FORMS 01-22-2017 OF [facility] H[facility]PITALS S97609 PRESENCE 01-22-2017 [facility] IMPLANTABLE HOSPITALS CARDIAC DEFIBRILLAT OR R0602 SHORTNESS 01-19-2017 [facility] OF BREATH [facility]BILEX R918 OTHER 01-19-2017 SY[facility] NONSPECIFIC [facility]BILEX ABNORMAL FINDING OF LUNG FIELD E785 HYPERLIPIDE 01-18-2017 [facility] UNSPECIFIED ASSOCIATES N183 CHRONIC 01-18-2017 [facility] DISEASE ASSOCIATES STAGE 3 MODERATE G894 CHRONIC 01-14-2017 [place] PAIN [facility] SYNDROME HEALTH CARE M069 RHEUMATOID 01-14-2017 [place] ARTHRITIS [facility] UNSPECIFIED HEALTH CARE N19 UNSPECIFIED 01-14-2017 [place] KIDNEY [facility] FAILURE HEALTH CARE Z950 PRESENCE OF 01-14-2017 [place] CARDIAC [facility] R600 LOCALIZED 01-11-2017 [facility] Z955 PRESENCE OF 01-11-2017 CORONARY [facility] ANGIOPLASTY HOSPITALS IMPLANT & GRAFT M6281 MUSCLE 01-05-2017 [facility] WEAKNESS AMBULANCE GENERALIZED SERVICE H20108 OTHER LONG 01-05-2017 [facility] HOSPITAL P DRUG THERAPY Z882 ALLERGY 01-05-2017 [facility] STATUS TO [facility] SULFONAMIDE INC S STATUS R609 EDEMA 01-04-2017 [place] UNSPECIFIED HEALTHCARE HOSPITALS E139 OTH SPEC 01-01-2017 [facility] DIABETES PHYSICIANS MELLITUS GROUP W/O COMPLICATIO NS E875 HYPERKALEMI 01-01-2017 [facility] A PHYSICIANS GROUP I5020 UNSPECIFIED 01-01-2017 [facility] SYSTOLIC PHYSICIANS CONGESTIVE GROUP HEART FAILURE N189 CHRONIC 01-01-2017 [facility] KIDNEY PHYSICIANS DISEASE GROUP UNSPECIFIED Z4502 ENCOUNTER 12-21-2016 [facility] AUTO HOSPITALS IMPLANTABL CARD DEFIB N390 URINARY 12-16-2016 [facility] INFECTION ASSOCIATES SITE NOT SPECIFIED R001 BRADYCARDIA [...] UNSPECIFIED SERV FOUNDATION D631 ANEMIA IN 12-04-2016 [place] [facility] CHRONIC SERV KIDNEY [facility]OUNDATION DISEASE I129 HYPERTENSIV 12-04-2016 [place] [facility] E CKD SERV W/STAGE 1-4 FOUNDATION CKD OR UNS CKD N250 RENAL 12-04-2016 [place] [facility] OSTEODYSTRO SERV PHY FOUNDATION J129 VIRAL 11-28-2016 [facility] PNEUMONIA [facility] UNSPECIFIED R339 RETENTION 11-21-2016 [place] OF URINE [facility] UNSPECIFIED HOSPITAL P R338 OTHER 11-14-2016 [facility]ALITY RETENTION PROVIDER OF URINE SERVICES IN A79741 PRESSURE 10-14-2016 [facility]ITY ULCER OF PROVIDER RIGHT HEEL SERVICES IN UNSTAGEABLE U24210 NON-PRSS 10-14-2016 [facility]ALITY CHR ULCR PROVIDER UNS PART SERVICES IN UNS LOW LEG UNS SEV J189 PNEUMONIA 09-29-2016 [facility] UNSPECIFIED PHYSICIANS ORGANISM GROUP N289 DISORDER OF 09-29-2016 [facility] KIDNEY AND PHYSICIANS URETER GROUP UNSPECIFIED R05 COUGH 09-28-2016 [facility] AMBULANCE SE I5021 ACUTE 09-08-2016 [place] [facility] SYSTOLIC SERV CONGESTIVE FOUNDATION HEART FAILURE R279 UNSPECIFIED 09-08-2016 [facility] LACK OF MEDICAL COORDINATIO RESPONSE N I130 HTN HEART & 09-07-2016 [place] [facility] CKD W/HF & SERV CKD STAGE FOUNDATION 1-4 OR UNS CKD I5023 ACUTE CHRON 09-07-2016 [place] [facility] SYSTOLIC SERV HEART FOUNDATION FAILURE I517 CARDIOMEGAL 09-07-2016 [place] [facility] Y SERV [facility]OUND[facility] J9601 ACUTE 09-07-2016 [place] [facility] RESPIRATORY SERV FAILURE FOUNDATION WITH HYPOXIA R778 OTHER 09-07-2016 [place] [facility]ICAL SPECIFIED SERV ABNORMALITI FOUNDATION ES OF PLASMA PROTEINS I214 NON-ST 09-06-2016 [facility] MYOCARDIAL HOSPITALS INFARCTION I4581 LONG QT 09-06-2016 [place] [facility] SYNDROME SERV FOUNDATION J9691 RESPIRATORY 09-06-2016 [place] [facility] FAILURE SERV UNSPECIFIED FOUNDATION WITH HYPOXIA R9431 ABNORMAL 09-06-2016 [place] [facility] ELECTROCARD SERV IOGRAM FOUNDATION E1165 TYPE 2 09-05-2016 [facility] P WITH HYPERGLYCEM IA Z07111 PAIN IN 09-05-2016 [place] RIGHT LEG MEDICAL IMAGING ASS D52715 PAIN IN 09-05-2016 [place] LEFT LEG MEDICAL IMAGING ASS M7989 OTHER 09-05-2016 [place] SPECIFIED MEDICAL SOFT TISSUE IMAGING ASS DISORDERS R269 UNSPECIFIED 09-05-2016 [facility] AMBULANCE ES OF GAIT SE AND MOBILITY R531 WEAKNESS 09-05-2016 [facility] AMBULANCE SE Z8679 PERSONAL 09-05-2016 [facility] HISTORY OTH PHYSICIANS, DISEASES PLL CIRCULATORY SYSTEM Z7401 BED 08-30-2016 [facility] AMBULANCE STATUS SERVICE E109 TYPE 1 08-14-2016 [facility] DIABETES HEALTH MELLITUS ASSOCIATES WITHOUT COMPLICATIO NS L0390 CELLULITIS 08-14-2016 [facility] UNSPECIFIED HEALTH ASSOCIATES M869 OSTEOMYELIT 08-11-2016 [facility] IS MOBILE XRAY UNSPECIFIED SERVICE R0989 OTH SPEC SX 07-20-2016 QUALITY & SIGNS MOBILE XRAY INVLV THE SERVICE CIRC & RESP SYS E1151 TYPE 2 DM 05-11-2016 [facility] W/DIAB PERIPH 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 G31399 PRESSURE 05-11-2016 [facility] ULCER OF RIGHT ANKLE STAGE 2 C20129 PRESSURE 05-11-2016 [facility] ULCER OF LEFT ANKLE UNSTAGEABLE M1990 UNSPECIFIED 05-06-2016 [facility] AMBULANCE OSTEOARTHRI SERVICE TIS UNSPECIFIED SITE R0789 OTHER CHEST 05-06-2016 [facility] PAIN PHYSICIANS, [facility] Z63816 CELLULITIS 04-25-2016 PAWSAT OF RIGHT LOWER LIMB F98335 PRESSURE 04-25-2016 [facility] ULCER OF RIGHT HEEL STAGE 2 E559 VITAMIN D 04-24-2016 [facility] UNSPECIFIED ASSOCIATES L089 LOCAL INF 04-18-2016 [facility] THE SKIN & HEALTH SUBCUTANEOU ASSOCIATES S TISSUE UNS R319 HEMATURIA 04-18-2016 [facility] P R37137 UNSPECIFIED 04-17-2016 [facility] RIGHT LOWER EYELID O71689X UNSPECIFIED 03-29-2016 [facility] OPEN WOUND [facility] LOWER ASSOCIATES LEG INITIAL ENC X60126 PAIN IN 03-20-2016 [facility] LEFT KNEE [facility]OS[facility] INC M179 OSTEOARTHRI 02-22-2016 [facility] TIS OF KNEE MEM HOSP INC UNSPECIFIED N4889 OTHER 02-18-2016 [facility] SPECIFIED [facility] P OF [place] N489 DISORDER OF 02-18-2016 [facility] [place] UNSPECIFIED AMBULANCE SE R3989 OTH 02-18-2016 [facility] SYMPTOMS & COUNTY SIGNS AMBULANCE INVOLVING SE THE SYSTEM R52 PAIN 02-18-2016 [facility] UNSPECIFIED COUNTY AMBULANCE SE G596AOW UNS COMP 02-18-2016 [facility] PROSTH [facility] DEVICE IMPL AMBULANCE & GRAFT SE INIT ENC R1084 GENERALIZED 02-13-2016 [facility] ABDOMINAL EMERGENCY PAIN AMBULAN R1930 ABDOMINAL 02-13-2016 [facility] RIGIDITY [facility]ERGENCY UNSPECIFIED AMBULAN SITE R5381 OTHER 02-13-2016 [facility] AMBULANCE SERVICE Z466 ENCOUNTER 02-13-2016 [facility] FITTING AND PHYSICIANS, ADJUSTMENT [facility] URIN[facility] DEVICE E118 TYPE 2 02-04-2016 [facility] DIABETES [facility] MELLITUS INC W/UNS COMPLICATIO NS Z539 PROCEDURE & 02-04-2016 [facility] TREATMENT [facility] NOT CARRIED INC OUT UNS REASON M169 OSTEOARTHRI 01-10-2016 RHODA BACA, TIS OF HIP , PSC UNSPECIFIED C72342 PAIN IN 01-10-2016 [facility] UNSPECIFIED [facility] HIP INC J83474 PAIN IN 01-10-2016 [facility] UNSPECIFIED [facility] KNEE INC E878 OTHER D/O 12-27-2015 [facility] ELECTROLYTE ASSOCIATES AND FLUID BALANCE NEC G67137 OTHER 12-17-2015 [facility] SPECIFIED [facility] RHEUMATOID INC ARTHRITIS LEFT HIP M1612 UNILATERAL 12-17-2015 [facility] PRIMARY [facility] OSTEOARTHRI INC TIS LEFT HIP U84865 PAIN IN 12-07-2015 [facility] LEFT THIGH [facility] INC Q18424 PAIN IN 12-07-2015 [facility] LEFT LOWER [facility] LEG INC P98463 PAIN IN 12-06-2015 [facility] LEFT HIP [facility] INC F72796 NON-PRSS 11-24-2015 [facility] CHRN ULCER PHYSICIANS SKIN OTH GROUP SITES UNS SEVERITY I82681 TYPE 2 11-16-2015 [place] D[facility]NA DIABETES MELLITUS WITH FOOT ULCER M2570 OSTEOPHYTE 11-16-2015 [place] [facility]NA UNSPECIFIED JOINT R78039 PAIN IN 10-19-2015 [place] RIGHT FOOT D509 IRON 09-29-2015 [facility] DEFICIENCY HEALTH ANEMIA ASSOCIATES UNSPECIFIED X05477 COMBINED 08-24-2015 [facility] FORMS OF EYE AGE-RELATED INSTITUTE CATARACT LEFT EYE H269 UNSPECIFIED 08-24-2015 [facility] CATARACT [facility] INC L21635 COMBINED 07-27-2015 [facility] FORMS OF EYE AGE-RELATED INSTITUTE CATARACT RIGHT EYE E46 UNSPECIFIED 2015 [facility] PROTEIN-EVGENY ASSOCIATES ORIE MALNUTRITIO N M13629 COMBINED 06-22-2015 [facility] INSTITUTE CATARACT BILATERAL H538 OTHER 06-22-2015 [place] [facility] DISTURBANCE INSTITUTE S N186 END STAGE 05-24-2015 [facility] RENAL HEALTH DISEASE ASSOCIATES 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 [facility] CY CHRONIC PERIPHERAL I071 RHEUMATIC 05-11-2015 [place] [facility] TRICUSPID SERV INSUFFICIEN FOUNDATION CY 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 05-11-2015 [place] [facility]ICAL C MITRAL SERV VALVE FOUNDATION INSUFFICIEN CY Z0189 ENCOUNTER 05-06-2015 [facility] OTHER AMB SERVICE SPECIFIED SPECIAL EXAMINATION S E1136 TYPE 2 04-29-2015 [facility] DIABETES VISION MELLITUS CENTER WITH DIABETIC CATARACT H2513 AGE-RELATED 04-29-2015 [facility] NUCLEAR VISION CATARACT CENTER BILATERAL F41645 CATARACT 04-29-2015 [facility] SECONDARY TO OCULAR DISORDERS UNS EYE I5032 CHRONIC 04-29-2015 [facility] DIASTOLIC CONGESTIVE HEART FAILURE R5382 CHRONIC 04-29-2015 [facility] FATIGUE UNSPECIFIED 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 M7731 CALCANEAL 03-30-2015 [place] SPUR RIGHT MEDICAL FOOT IMAGING ASS M059 RA WITH 03-23-2015 [facility] RHEUMATOID EMERGENCY FACTOR AMBULAN UNSPECIFIED N13299 PAIN IN 03-23-2015 [facility] UNSPECIFIED EMERGENCY LIMB AMBULAN M27148K LACERATION 03-23-2015 [facility] W/FOREIGN EMERGENCY BODY UNS AMBULAN FOOT INITIAL ENC Z7901 FDC 03-16-2015 [facility] CURRENT USE HEALTH OF ASSOCIATES ANTICOAGULA NTS G8929 OTHER 02-25-2015 [facility] CHRONIC EMERGENCY PAIN AMBULAN J9690 RESP FAIL 02-25-2015 [facility] UNS UNS EMERGENCY WHETHER AMBULAN W/HYPOXIA/H YPERCAPNIA E975 02-24-2015 [facility] A419 SEPSIS 02-18-2015 [facility] UNSPECIFIED HEALTH ORGANISM ASSOCIATES E0590 THYROTOXICO 02-18-2015 [facility] SIS UNS W/O HEALTH THYROTOXIC ASSOCIATES CRISIS/STOR M R350 FREQUENCY 02-18-2015 [facility] MICTURITION ASSOCIATES R7989 OTHER SPEC 02-18-2015 [facility] ABNORMAL HEALTH FINDINGS ASSOCIATES BLOOD CHEMISTRY R4182 ALTERED 01-22-2015 [facility] MENTAL EMERGENCY STATUS AMBULAN UNSPECIFIED I270 PRIMARY 01-21-2015 [facility] PULMONARY LAR HYPERTENSIO CONSULTANTS N O P53492 [place]D [place] 01-19-2015 [facility] COR ARTREY LAR W/UNS CONSULTANTS ANGINA O PECTORIS K50193T NONDSPL FX 01-19-2015 [facility] 2ND GENERAL METATARSAL SURGERY RT FT INIT ENC CLOS FX E1365 OTH SPEC 01-16-2015 [facility] DIABETES LAR MELLITUS CONSULTANTS WITH O HYPERGLYCEM IA I272 OTHER 01-15-2015 [facility] PULMONARY MEDICAL HYPERTENSIO N J811 CHRONIC 01-15-[facility] PULMONARY RADIOLOGY EDEMA ASSOCIAT J9610 CHRONIC 01-15-2015 [facility] RESPIRATORY REGIONAL FAIL UNS MEDICAL HYPOXIA/HYP ERCAPNIA Q20316 NON-PRSS 01-15-2015[facility] CHRN ULCR RADIOLOGY OTH PART LT ASSOCIAT FOOT UNS SEVERITY C35862 NON-PRSS 01-15-2015 [facility] CHR ULCR REGIONAL UNS PART LT MEDICAL LOW LEG UNS SEV H90699T DISPLACED 01-15-[facility] 2ND RADIOLOGY METATARSAL ASSOCIAT RT FT INIT CLOS FX I5040 UNSPECIFIED 01-14-2015 [facility] SYSTOLIC & HOSPITAL DIASTOLIC CHF J90 PLEURAL 01-14-2015 [facility] EFFUSION MEDICAL NOT IMAGING ASS ELSEWHERE CLASSIFIED M0540 RHEUMATOID 01-14-2015 [facility] WITH HOSPITAL UNSPECIFIED SITE R590 LOCALIZED 01-14-2015 [place] ENLARGED MEDICAL LYMPH NODES IMAGING ASS 42955 COR 01-13-2015 [facility] ATHEROSLERO LAR UNSPEC CONSULTANTS TYPE VESSEL O [place]/YOVANNY T 4258 CARDIOMYOPA 01-13-2015 [facility] THY OTHER LAR DISEASES CONSULTANTS CLASSIFIED O ELSW 4280 CONGESTIVE 01-13-2015 [facility] HEART LAR FAILURE [place] [address]19 SHORTNESS 01-13-2015 [facility] OF BREATH LAR CONSULTANTS O 66977 DIAB W/O 01-12-2015 [facility] COMP TYPE [facility] II/UNS NOT HOSPITAL P STATED UNCNTRL 2724 OTHER AND 01-12-2015 [facility] UNSPECIFIED [facility] HYPERLIPIDE NICHOLAS 3384 CHRONIC 01-12-2015 [facility] PAIN [facility] SYNDROME 4019 UNSPECIFIED 01-12-2015 [facility] ESSENTIAL [facility] HYPERTENSIO HOSPITAL P N 4254 OTHER 01-12-2015 [facility] PRIMARY [facility] CARDIOMYOPA HOSPITAL P MARNI 4259 UNSPECIFIED 01-12-2015 [facility] SECONDARY [facility] CARDIOMYOPA THY 89503 UNSPECIFIED 01-12-2015 [facility] SYSTOLIC [facility] HEART FAILURE 496 CHRONIC 01-12-2015 [facility] AIR[facility] EMERGENCY OBSTRUCTION AMBULAN NEC 92350 ACUTE 01-12-2015 [facility] RESPIRATORY [facility] FAILURE 5849 ACUTE 01-12-2015 [facility] KIDNEY EMERGENCY FAILURE AMBULAN UNSPECIFIED 5853 CHRONIC 01-12-2015 [facility] KIDNEY [facility] DISEASE STAGE III (MODERATE) 7140 RHEUMATOID 01-12-2015 [facility] ARTHRITIS [facility] 7862 COUGH 01-12-2015 [facility] 04116 SOLITARY 01-12-2015 [place] PULMONARY MEDICAL NODULE IMAGING ASS V4582 POSTSURG 01-12-2015 [place] [facility] P L COR ANGPLSTY STS V5867 LONG-TERM 01-12-2015 [facility] USE OF [facility] INSULIN HOSPITAL P V5869 LONG-TERM 01-12-2015 [place] (CURRENT) [facility] USE OF HOSPITAL P OTHER MEDICATIONS 97193 01-04-2015 [facility] COMMUNITY ACT 34643 ATRIAL 12-25-2014 [facility] N CONS[facility] O 7823 EDEMA 12-25-2014 [facility] AMBULANCE SERVICE 52626 OTHER FLUID 12-24-2014 [place] [facility] OVER[place] [facility] 90858 ANEMIA IN 12-24-2014 [place] [facility] DISEASE 41879 HTN CKD UNS 12-24-2014 [place] [facility] W/CKD SERV STAGE I [facility]OUND[facility] THRU STAGE IV/UNS 5880 RENAL 12-24-2014 [place] [facility] OSTEODYSTRO SERV PHY [facility] 4240 MITRAL 12-22-2014 [place] [facility] [place] [facility] DISORDERS [facility] 4242 TRICUSPID 12-22-2014 [place] [facility]ORD[facility] SPEC NONRHEUMATI C 53686 OCCL&STENOS 12-22-2014 [place] [facility] PRECERBRL IMAGING ASS ART W/O INFARCT 65739 OTHER 12-19-2014 [facility] CHRONIC PHYSICIANS PAIN GROUP 4011 ESSENTIAL 12-19-2014 [facility] HYPERTENSIO PHYSICIANS N, BENIGN GROUP 4439 UNSPECIFIED 12-18-2014 [facility] PER[facility]ASC[facility] DISEASE O V4509 OTHER 12-18-2014 [facility] SPECIFIED [facility] CARDIAC INC DEVICE IN SITU 5601 PARALYTIC 12-09-2014 [facility] ILEUS PHYSICIANS GROUP 7873 FLATULENCE 12-02-2014 [facility] ERUCTATION PHYSICIANS AND GAS GROUP PAIN 11528 ABDOMINAL 12-02-2014 [facility] PAIN, PHYSICIANS UNSPECIFIED GROUP SITE 89058 UNS 12-01-2014 [facility] ASTRODUODIT SERVICE IS W/O MENTION HEMORR 5609 UNSPECIFIED 12-01-2014 [facility] INTESTINAL [facility] INC OBSTRUCTION 04303 CALCU 12-01-2014 [place] [facility] W/O MENTION IMAGING ASS CHOLECYST/O BST V4502 AUTOMATIC 12-01-2014 [facility] IMPLANTABLE [facility] CARDIAC INC DEFIBRILLAT OR SITU 250 DIABETES 11-26-2014 [facility] [place] 65662 OTHER 11-23-2014 [facility] SPECIFIED CARDIAC DYSRHYTHMIA S 5851 CHRONIC 11-23-2014 [facility] [place] [address] RESTLESS 11-06-2014 [facility] PRIMARY SYNDROME CARE 01295 ESOPHAGEAL 11-06-2014 [facility] REFLUX PRIMARY CARE 4293 CARDIOMEGAL 10-13-2014 [place] [address] OTHER 10-13-2014 [facility] DYSPNEA AND REGIONAL MEDICAL CE RESPIRATORY ABNORMALITI ES 5932 ACQUIRED 10-07-2014 [place] [facility] OF MEDICAL [facility] 52565 UNSPECIFIED 09-11-2014 [facility] INFE[facility] PARTNERS OF OF BONE LEXINGT ANKLE AND FOOT 9597 INJURY 09-11-2014 [facility] CIFIED KNEE INC LEG ANKLE&FOOT V5881 FITTING AND 09-11-2014 [place] [facility] OF IMAGING ASS VASCULAR CATHETER 55114 DIAB W/O 09-08-2014 [place] [facility] MENTION SERV COMP TYPE FOUNDATION II/UNS TYPE UNCNTRL 2767 HYPERPOTASS 08-26-2014 [facility] P 412 OLD 08-26-2014 [facility] INFARCTION INC 43779 CORONARY 08-26-2014 [facility] P CORONARY ARTERY 5859 CHRONIC 08-26-2014 [facility] DISEASE INC UNSPECIFIED 27373 WHEEZING 08-26-2014 [place] [facility] 1101 DERMATOPHYT 08-14-2014 [facility] OF NAIL 66028 DIAB 08-14-2014 [facility] W/PERIPH CIRC D/O TYPE II/UNS TYPE UNCNTRL 7295 PAIN IN 08-14-2014 [facility] SOFT TISSUES OF LIMB 462 ACUTE 08-08-2014 [facility]IS [facility] INC 19407 OTH NONSPC 08-08-2014 [facility] FINDNG MEDICAL RAD&OTH EXM IMAGING ASS BODY STRUCTURE 714 RA AND 07-23-2014 [facility] OTHER AREA AGENCY INFLAMMATOR ON RED Y POLYARTHROP ATHIES 59097 URINARY 07-09-2014 [facility] 4271 PAROXYSMAL 06-22-2014 [place] [facility] VENTRICULAR SERV [facility]ATION TACHYCARDIA V5331 FITTING AND 06-22-2014 [place] [facility] [place] SERV OF CARDIAC FOUNDATION PACEMAKER V707 EXAMINATION 06-22-2014 [place] [facility] OF SERV PARTICIPANT FOUNDATION IN CLINICAL TRIAL 69155 OTHER 06-21-2014 [place] [facility] PREMATURE SERV BEATS FOUNDATION 33266 NONSPECIFIC 06-21-2014 [place] [facility] ABNORMAL SERV ELECTROCARD FOUNDATION IOGRAM 79386 DIAB 06-18-2014 [facility] MANIF[facility] TYPE II/UNS TYPE UNCNTRL 81604 ACUT AL 06-18-2014 [facility] IAL INFARCT INIT EPIS CARE 29634 ULCER OF 06-18-2014 [facility] V4589 OTHER 06-18-2014 [place] [facility] POSTSURGICA SERV L STATUS FOUNDATION OTHER 12164 DIAB W/O 06-17-2014 [place] [facility] MENTION SERV COMP TYPE I FOUNDATION [JUV TYPE] UNCNTRL 02010 ACUT 06-17-2014 [facility] MYOCARD AMBULANCE INFARCT UNS SERVICE SITE EPIS CARE UNS 62996 ACUTE 06-17-2014 [facility] P UNSPEC SITE INIT EPIS CARE 5180 PULMONARY 06-17-2014 [place] [facility] COLLAPSE SERV [facility] 7850 UNSPECIFIED 06-17-2014 [place] [facility] TACHYCARDIA IM[facility] 29303 PRECORDIAL 06-17-2014 [facility] 3572 POLYNEUROPA 06-10-2014 [facility] IN HEALTH DIABETES AGENCY 28057 ULCER OF 06-10-2014 [facility] OTHER PART HEALTH OF FOOT AGENCY 17307 MUSCLE 06-10-[facility] WE[facility]NESS [facility] (GENERALIZE AGENCY D) 1927 CELLULITIS 04-14-2014 [facility] AND ABSCESS PRIMARY OF LEG CARE EXCEPT FOOT 18899 INSOMNIA 03-19-2014 [facility] UNSPECIFIED PRIMARY CARE 77260 UNSPECIFIED 01-22-2014 [facility] [place] [address] ULCER OF 01-22-2014 [facility] INC V571 OTHER 01-22-2014 [facility] THERAPY INC 8911 OPEN WOUND 01-19-2014 [facility] OF KNEE LEG PRIMARY AND ANKLE CARE COMPLICATED 586 UNSPECIFIED 08-27-2013 [facility] RENAL REGIONAL FAILURE MEDICAL CE 7038 OTHER 08-27-2013 [facility] SPECIFIED PRIMARY DISEASE OF CARE NAIL 65992 OLECRANON 08-01-2013 [facility] BURSITIS PRIMARY CARE 72603 GEN 07-22-2013 [facility] HOME SIS MEDICAL INVOLVING EQUIPME MULTIPLE SITES 36696 GENERALIZED 05-22-2013 [facility] OSTEOARTHRO SIS UNSPECIFIED SITE 33901 ULCER OF 03-17-2013 [facility] HEEL AND PRIMARY MIDFOOT CARE 7812 ABNORMALITY 03-17-2013 [facility] OF GAIT PRIMARY CARE 69626 OSTEOARTHRO 02-20-2013 [facility] [place] SIS UNSPEC ORTHOPAEDIC WHETHER S PLC GEN/LOC LOWER LEG V0481 NEED 02-12-2013 [facility] PROPHYLACTI PRIMARY C CARE VACCINATION &INOCULATIO N FLU 42385 PAIN IN 11-15-2012 [facility] JOINT, PRIMARY SHOULDER CARE REGION 99701 PAIN IN 11-15-2012 [facility] JOINT, PRIMARY UPPER ARM CARE 32669 UNSPEC 10-08-2012 [facility] [place] THRITIS SITE UNSPEC 46935 DIAB 09-20-2012 [facility] W/NEURO REGIONAL MANIFESTS MEDICAL CE TYPE II/UNS TYPE UNCNTRL 4871 INFLUENZA 05-27-2012 [facility] [place] WITH OTHER RESPIRATORY MANIFESTATI ONS 36874 FEVER 05-18-2012 INDY UNSPECIFIED KOKO 4660 ACUTE 04-25-2012 [facility] [place] BRONCHITIS 4658 ACUTE URIS 02-28-2012 [facility] [place] OF OTHER MULTIPLE SITES 86194 PRESSURE 02-28-2012 [facility] [place] ULCER HEEL 7993 UNSPECIFIED 01-19-2012 [facility]AT[facility] DEBILITY [facility]US [facility] 71456 OTHER 07-24-2011 [facility] [place] URINARY INCONTINENC E 30881 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 INTERVERTEB RAL DISC 7291 UNSPECIFIED 12-23-2010 SALDA[facility] MYALGIA JOSE MARCHPIrenaSKaleigh MYOSITIS 51877 UNSPECIFIED 11-30-2010 [place] LAPAROSCOPI OSTEOMYELIT C & IS ANKLE ADVANCED S AND FOOT 9961 [facility] 11-30-2010 [place] OTH LAPAROSCOPI VASCULAR C & DEVICE [place]VANC[place] S IMPLANT&[place] [address] FLUSHING 09-20-2010 [facility] [place] [address] PRESSURE 06-14-2010 ROSY Nelson ULCER ANDRE VALDES, UNSPECIFIED LLC SITE 21445 ACUTE 06-14-2010 ROSY Nelson OSTEOMYELIT ANDRE VALDES, IS SITE LLC UNSPECIFIED 90106 ACUTE 06-02-2010 ROSY BEDOLLAOMYELION POWELL MD, IS, ANKLE LLC AND FOOT 2859 UNSPECIFIED 05-19-2010 [facility] 86341 UNSPECIFIED 05-19-2010 [facility] INC ABSCESS OF TOE 13601 PRESSURE 05-19-2010 [facility] ULCER SOLUTIONS BUTTOCK 53968 UNSPECIFIED 05-17-2010 [place] LAPAROSCOPI OSTEOMYELIT C & IS OTHER ADVANCED S SPECIFIED SITES 55748 CHEST PAIN 05-17-2010 [place] UNSPECIFIED HEART & VASCULAR PH 6829 CELLULITIS 05-16-2010 [facility] [place] AND ABSCESS IMAGING PSC OF UNSPECIFIED SITE 71719 UNSPECIFIED 05-16-2010 ROSY POWELL MD, OSTEOMYELIT LLC IS SITE UNSPECIFIED 5939 UNSPECIFIED 05-13-2010 [facility] [place] DISORDER IMAGING P[facility] OF KIDNEY AND URETER 39135 OTHER CHEST 05-13-2010 [place] PAIN LAPAROSCOPI C & ADVANCED S 25202 OTHER 05-13-2010 [facility] IN[facility] CARE URINARY SYSTEM 68323 PRESSURE 05-12-2010 [facility] [place] [address] PRESSURE 05-12-2010 [facility] ULCER STAGE REGIONAL II MEDICAL CE 7851 PALPITATION 04-19-2010 [facility] & VASCULAR PH 3569 UNSPEC 04-14-2010 [facility] HEREDIT&IDI FAMILY OPATHIC PRACTICE CL PERIPHERAL NEUROPATHY 45492 DIAB W/O 01-24-2010 [facility] COMP TYPE I FAMILY [JUV] NOT PRACTICE CL STATED UNCNTRL 7801 HALLUCINATI 12-23-2009 [facility] ONS EMERGENCY PHYSICIANS 6827 CELLULITIS 11-02-2009 [facility] AND ABSCESS EMERGENCY OF FOOT PHYSICIANS EXCEPT TOES 21426 OSTEOARTHRO 11-02-2009 [facility] [place] SIS UNSPEC IMAGING PSC WHETHER GEN/LOC ANK&FOOT 9174 FOOT&TOE 11-02-2009 [facility] INSECT BITE EMERGENCY PHYSICIANS NONVENOMOUS W/O MENTION INF 9175 FOOT AND 11-02-2009 [facility] TOE INSECT REGIONAL BITE MEDICAL NONVENOMOUS CENT INFECTED E0008 OTHER 11-02-2009 [facility] EXTERNAL REGIONAL CAUSE MEDICAL STATUS CENT E8490 PLACE OF 11-02-2009 [facility] OCCURRENCE, EMERGENCY HOME PHYSICIANS E9064 BITE OF 11-02-2009 [facility] NONVENOMOUS EMERGENCY ARTHROPOD PHYSICIANS 3670 HYPERMETROP 10-21-2009 [facility] PTON, JERMAINE 36799 OTHER 10-05-2009 [place] [facility] 32189 PAIN IN 09-07-2009 [place] [facility] PAIN PELVIC PHYSICIANS REGION AND PSC THIGH 74782 PAIN IN 09-07-2009 [place] JOINT, PAIN LOWER LEG PHYSICIANS PSC 7242 LUMBAGO 09-07-2009 [place] PAIN PHYSICIANS PSC 7410 SPINA 08-03-2009 BHAGRATH, BIFIDA WITH KSENIA S HYDROCEPHAL US 7804 DIZZINESS 07-30-2009 [place] AND PAIN GIDDINESS PHYSICIANS PSC 59104 POLYARTICUL 07-08-2009 [place] AR JUVENILE PAIN RA CHRONIC PHYSICIANS OR PSC UNSPECIFIED 7852 UNDIAGNOSED 07-01-2009 [place] CARDIAC [facility]ART & [facility] VASCULAR PHYSICIANS, INC 59473 PAIN IN 11-09-2008 [facility] JO[facility], L HOME MULTIPLE MEDICAL SITES SUPPLIES INC 2689 UNSPECIFIED 10-02-2008 [facility] VITAMIN D REGIONAL DEFICIENCY MEDICAL CENT 5852 CHRONIC 10-02-2008 [facility] KIDNEY REGIONAL DISEASE MEDICAL STAGE II CENT (MILD) 42761 HYPERTROPHY 10-02-2008 [facility] PROSTATE REGIONAL W/O UR OBST MEDICAL & OTH LUTS CENT 7910 PROTEINURIA 10-02-2008 [facility] 7231 CERVICALGIA 07-08-2008 [place] PAIN PHYSICIANS PSC 90756 OSTEOARTHRO 2008 [facility] [place] S UNSPEC ORTHOPAEDIC GEN/LOC S PLC PELV REGION&THIG H 3829 UNSPECIFIED 05-28-2008 [facility] 4659 ACUTE URIS 04-28-2008 [place] [facility] UNSPECIFIED HOSP SITE 7213 LUMBOSACRAL 04-02-2008 [facility] SERVICES SPONDYLOSIS 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 7244 THORACIC/TY 04-02-2008 [facility] MBOSACRAL SERVICES NEURITIS/RA PSC DICULITIS UNSPEC 8472 LUMBAR 04-02-2008 [facility] SPRAIN AND SERVICES STRAIN PSC 6828 CELLULITIS 03-03-2008 [place] AND [facility]ESS [facility] OF OTHER HOSP SPECIFIED SITE 43278 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 27970 SPINAL 02-26-2008 [facility] STENOSIS OF SERVICES THORACIC PSC REGION 7241 PAIN IN 02-26-2008 [facility] THORACIC SERVICES SPINE PSC 08778 CLOS FX 02-26-2008 [facility] T7-T12 SERVICES LEVEL PSC W/UNSPEC SPINAL CORD INJURY 69088 SECONDARY 02-25-2008 [facility] HYPERPARATH NEPHROLOGY YROIDISM CONSULTANTS 9590 INJURY TO 02-11-2008 [facility] DORSAL SERVICES NERVE ROOT PSC 91790 OSTEOARTHRO 01-14-2008 [facility] S UNSPEC SERVICES GEN/LOC OTH PSC SPEC SITES 76130 DISPLCMT 01-14-2008 [facility] LUMBAR SERVICES INTERVERT PSC DISC W/O MYELOPATHY 57181 SPINAL STEN 01-14-2008 [facility] LUMB REG SERVICES W/O PSC NEUROGENIC CLAUDICATIO N 57261 SCOLIOSIS , 01-14-2008 [facility] IDIOPATHIC SERVICES PSC 7246 DISORDERS 12-25-2007 [facility] OF SACRUM SERVICES PSC 7245 UNSPECIFIED 12-21-2007 [facility] BACKACHE IMAGING PSC 95462 ABDOMINAL 12-21-2007 [facility] PAIN OTHER REGIONAL SPECIFIED MEDICAL SITE CENT 3970 DISEASES OF 11-18-2007 [place], TRICUSPID ZE C VALVE 18274 PRIMARY LOC 11-13-2007 [facility] OSTEOARTHRO MEDICAL SIS PELVIC CENT REGION&THIG H 36143 PRIMARY 11-13-2007 [facility] LOCALIZED REGIONAL OSTEOARTHRO MEDICAL SIS LOWER CENT LEG 7176 LOOSE BODY 11-13-2007 [facility] 94527 DISORDER OF 11-13-2007 [facility] BONE AND IMAGING PSC CARTILAGE UNSPECIFIED 2818 ANEMIA 09-26-2007 [facility] W/OTHER PLLC SPEC NUTRITIONAL DEFIC 4778 ALLERGIC 09-26-2007 [facility] DUE TO PLLC OTHER ALLERGEN 94708 UNSPECIFIED 09-26-2007 [facility] AND [facility] ABSCESS OF FINGER 00273 NOCTURIA 09-26-2007 [facility] 98750 VOMITING 09-13-2007 [facility] PHYSICIAN INC 22173 OSTEOARTHRO 09-04-2007 [facility] S UNSPEC NEPHROLOGY WHETHER CONSULTANTS GEN/LOC UNSPEC SITE 56223 ELEVATED 09-04-2007 [facility] PROSTATE NEPHROLOGY SPECIFIC CONSULTANTS ANTIGEN 50650 UNSPECIFIED 06-24-2007 [facility] 05350 LOSS OF 06-24-2007 [facility] CENT 60518 URINARY 06-24-2007 [facility] MEDICAL CENT V7644 SPECIAL 06-24-2007 [facility] MALIGNANT MEDICAL NEOPLASM OF [facility] PROSTATE 4779 ALLERGIC 10-31-2006 [facility]ILY [...] 0 RE 70 81 88 17 17 AL 9 PH CH MG AR AE MA L CH CY S EW AB LL LE C TA BL ET 00 08 11 0 30 30 ME 15 GA Ac TA 53 -3 -1 0. D 28 IN ti AL 63 1- 5- 00 CA 72 EY ve N 79 20 20 0 RE 37 D3 00 17 17 AL 1 PH CH 2, AR AE 00 MA L 0 CY S UN IT LL C SO FT GE L TA 00 08 11 0 30 30 ME 15 GA Ac B- 90 -3 -1 0. D 28 IN ti A- 40 1- 5- 00 CA 72 EY ve 53 20 20 0 RE 36 TE 08 17 17 AL 0 PH CH TA AR AE BL MA L ET CY S LL C FE 00 08 11 0 30 30 ME 15 GA Ac RR 53 -3 -1 0. D 28 IN ti OU 61 1- 5- 00 CA 72 EY ve S 00 20 20 0 RE 35 CLARK 90 17 17 AL LF 1 PH CH AT AR AE E MA L 32 CY S 5 MG LL C TA BL ET LO 00 08 11 0 30 30 ME 15 GA Ac RA 78 -3 -0 0. D 23 IN ti TA 15 1- 4- 00 CA 05 EY ve DI 07 20 20 0 RE 03 NE 70 17 17 AL 1 PH CH 10 AR AE MA L MG CY S TA LL BL C ET SE 00 08 10 0 12 30 ME 15 GA Ac NN 90 -3 -2 00 D 18 IN ti A- 46 1- 7- .0 CA 77 EY ve LA 52 20 20 00 RE 76 X 26 17 17 AL 8. 1 PH CH 6 AR AE MG MA L CY S TA BL LL ET C 00 08 10 0 30 30 ME 15 GA Ac TA 90 -3 -2 0. D 18 IN ti AL 40 - 7 CA 77 EY ve N 52 20 20 0 RE 74 C 38 17 17 AL 50 0 PH CH 0 AR AE MG MA L CY S TA BL LL ET C ST 00 08 10 0 30 30 ME 15 GA Ac OO 53 -3 -2 0. D 18 IN ti L 61 - 7 CA 77 EY ve SO 06 20 20 0 RE 75 FT 41 17 17 AL EN 0 PH CH ER AR AE MA L 25 CY S 0 MG LL C SO FT GE L 00 08 10 0 30 30 ME 15 GA Ac PI 90 -3 -2 0. D 16 IN ti RI 46 1- 3- 00 CA 98 EY ve N 28 20 20 0 RE 63 81 88 17 17 AL 9 PH CH MG AR AE MA L CH CY S EW AB LL LE C TA BL ET 00 08 10 0 30 30 ME 15 GA Ac TA 53 -3 -1 0. D 12 IN ti AL 63 - 6 CA 12 EY ve N 79 20 20 0 RE 14 D3 00 17 17 AL 1 PH CH 2, AR AE 00 MA L 0 CY S UN IT LL C SO FT GE L FE 00 08 10 0 30 30 ME 15 GA Ac RR 53 -3 -1 0. D 12 IN ti OU 61 1- 6- 00 CA 12 EY ve S 00 20 20 0 RE 10 CLARK 90 17 17 AL LF 1 PH CH AT AR AE E MA L 32 CY S 5 MG LL C TA BL ET TA 00 08 10 0 30 30 ME 15 GA Ac B- 90 -3 -1 0. D 12 IN ti A- 40 1- 6 CA 12 EY ve 53 20 20 0 RE 11 TE 08 17 17 AL 0 PH CH TA AR AE BL MA L ET CY S LL C LO 00 08 10 0 30 30 ME 15 GA Ac RA 78 -3 -0 0. D 07 IN ti TA 15 1- 6- 00 CA 11 EY ve DI 07 20 20 0 RE 54 NE 70 17 17 AL 1 PH CH 10 AR AE MA L MG CY S TA LL BL C ET 00 08 09 0 30 30 ME 14 GA Ac PI 90 -3 -2 0. D 87 IN ti RI 46 1- 7- 00 CA 57 EY ve N 28 20 20 0 RE 76 81 88 17 17 AL 9 PH CH MG AR AE MA L CH CY S EW AB LL LE C TA BL ET ST 00 08 09 0 30 30 ME 14 GA Ac OO 53 -3 -2 0. D 87 IN ti L 61 1- 7- 00 CA 57 EY ve SO 06 20 20 0 RE 82 FT 41 17 17 AL EN 0 PH CH ER AR AE MA L 25 CY S 0 MG LL C SO FT GE L SE 00 08 09 0 12 30 ME 14 GA Ac NN 90 -3 -2 00 D 87 IN ti A- 46 1- 7- .0 CA 57 EY ve LA 52 20 20 00 RE 99 X 26 17 17 AL 8. 1 PH CH 6 AR AE MG MA L CY S TA BL LL ET C 00 08 09 0 13 13 ME 14 GA Ac TA 90 -3 -2 0. D 87 IN ti AL 40 1- 7- 00 CA 57 EY ve N 52 20 20 0 RE 80 C 38 17 17 AL 50 0 PH CH 0 AR AE MG MA L CY S TA BL LL ET C EN 00 09 09 0 13 1 ME 14 GA Ac EM 53 -1 -1 30 D 97 IN ti A 67 8- 8- .0 CA 43 EY ve 41 20 20 00 RE 40 55 17 17 AL 1 PH CH AR AE MA L CY S LL C TA 00 08 09 0 30 30 ME 14 GA Ac B- 90 -3 -1 0. D 87 IN ti A- 40 1- 8- 00 CA 57 EY ve 53 20 20 0 RE 93 TE 08 17 17 AL 0 PH CH TA AR AE BL MA L ET CY S LL C RO 00 08 09 0 15 30 ME 14 GA Ac BA 90 -3 -1 00 D 87 IN ti FE 40 1- 8- .0 CA 57 EY ve N- 05 20 20 00 RE 97 DM 31 17 17 AL 6 PH CH SY AR AE RU MA L P CY S LL C FE 00 08 09 0 30 30 ME 14 GA Ac RR 53 -3 -1 0. D 87 IN ti OU 61 1- 8- 00 CA 57 EY ve S 00 20 20 0 RE 84 CLARK 90 17 17 AL LF 1 PH CH AT AR AE E MA L 32 CY S 5 MG LL C TA BL ET 00 08 09 0 30 30 ME 14 GA Ac TA 53 -3 -1 0. D 97 IN ti AL 63 1- 8- 00 CA 42 EY ve N 79 20 20 0 RE 76 D3 00 17 17 AL 1 PH CH 2, AR AE 00 MA L 0 CY S UN IT LL C SO FT GE L LO 00 08 09 0 30 30 ME 14 GA Ac RA 78 -3 -0 0. D 87 IN ti TA 15 1- 8- 00 CA 57 EY ve DI 07 20 20 0 RE 87 NE 70 17 17 AL 1 PH CH 10 AR AE MA L MG CY S TA LL BL C ET 00 08 08 0 30 30 ME 14 GA Ac TA 90 -2 -2 0. D 83 IN ti AL 40 5- 5- 00 CA 93 EY ve N 52 20 20 0 RE 36 C 38 17 17 AL 50 0 PH CH 0 AR AE MG MA L CY S TA BL LL ET C 00 06 08 0 30 30 ME 14 GA Ac PI 90 -2 -2 0. D 81 IN ti RI 46 0- 1- 00 CA 39 EY ve N 28 20 20 0 RE 76 81 88 17 17 AL 9 PH CH MG AR AE MA L CH CY S EW AB LL LE C TA BL ET 00 06 08 0 30 30 ME 14 GA Ac TA 53 -2 -1 0. D 78 IN ti AL 63 0- 8- 00 CA 56 EY ve N 79 20 20 0 RE 78 D3 00 17 17 AL 1 PH CH 2, AR AE 00 MA L 0 CY S UN IT LL C SO FT GE L BI 00 06 08 0 15 30 ME 14 GA Ac SC 90 -2 -1 0. D 44 IN ti OL 45 0- 8- 00 CA 02 EY ve AX 05 20 20 0 RE 06 81 17 17 AL 10 2 PH CH AR AE MG MA L CY S CLARK PP LL OS C IT OR Y ST 00 06 08 0 30 30 ME 14 GA Ac OO 53 -2 -1 0. D 77 IN ti L 61 0- 7- 00 CA 70 EY ve SO 06 20 20 0 RE 49 FT 41 17 17 AL EN 0 PH CH ER AR AE MA L 25 CY S 0 MG LL C SO FT GE L FE 00 06 08 0 30 30 ME 14 GA Ac RR 53 -2 -1 0. D 77 IN ti OU 61 0- 7- 00 CA 70 EY ve S 00 20 20 0 RE 48 CLARK 90 17 17 AL LF 1 PH CH AT AR AE E MA L 32 CY S 5 MG LL C TA BL ET SE 00 06 08 0 12 30 ME 14 GA Ac NN 90 -2 -1 00 D 77 IN ti A- 46 0- 7- .0 CA 70 EY ve LA 52 20 20 00 RE 50 X 26 17 17 AL 8. 1 PH CH 6 AR AE MG MA L CY S TA BL LL ET C TA 00 06 08 0 30 30 ME 14 GA Ac B- 90 -2 -1 0. D 76 IN ti A- 40 0- 4- 00 CA 87 EY ve 53 20 20 0 RE 37 TE 08 17 17 AL 0 PH CH TA AR AE BL MA L ET CY S LL C LO 00 06 08 0 30 30 ME 14 GA Ac RA 78 -2 -1 0. D 74 IN ti TA 15 0- 2- 00 CA 04 EY ve DI 07 20 20 0 RE 56 NE 70 17 17 AL 1 PH CH 10 AR AE MA L MG CY S TA LL BL C ET RO 00 06 08 0 15 30 ME 14 GA Ac BA 90 -2 -0 00 D 74 IN ti FE 40 0- 9- .0 CA 72 EY ve N- 05 20 20 00 RE 35 DM 31 17 17 AL 6 PH CH SY AR AE RU MA L P CY S LL C LO 00 06 07 0 30 30 ME 14 GA Ac RA 78 -2 -1 0. D 60 IN ti TA 15 0- 8- 00 CA 24 EY ve DI 07 20 20 0 RE 58 NE 70 17 17 AL 1 PH CH 10 AR AE MA L MG CY S TA LL BL C ET ST 00 06 07 0 30 30 ME 14 GA Ac OO 53 -2 -1 0. D 60 IN ti L 61 0- 8- 00 CA 24 EY ve SO 06 20 20 0 RE 57 FT 41 17 17 AL EN 0 PH CH ER AR AE MA L 25 CY S 0 MG LL C SO FT GE L FE 00 06 07 0 30 30 ME 14 GA Ac RR 53 -2 -1 0. D 60 IN ti OU 61 0- 8- 00 CA 24 EY ve S 00 20 20 0 RE 56 CLARK 90 17 17 AL LF 1 PH CH AT AR AE E MA L 32 CY S 5 MG LL C TA BL ET SE 00 06 07 0 12 30 ME 14 GA Ac NN 90 -2 -1 00 D 60 IN ti A- 46 0- 8- .0 CA 24 EY ve LA 52 20 20 00 RE 60 X 26 17 17 AL 8. 1 PH CH 6 AR AE MG MA L CY S TA BL LL ET C 00 06 07 0 30 30 ME 14 GA Ac PI 90 -2 -1 0. D 60 IN ti RI 46 0- 8- 00 CA 24 EY ve N 28 20 20 0 RE 55 81 88 17 17 AL 9 PH CH MG AR AE MA L CH CY S EW AB LL LE C TA BL ET TA 00 06 07 0 30 30 ME 14 GA Ac B- 90 -2 -1 0. D 60 IN ti A- 40 0- 8- 00 CA 24 EY ve 53 20 20 0 RE 59 TE 08 17 17 AL 0 PH CH TA AR AE BL MA L ET CY S LL C LO 00 06 06 0 30 30 ME 14 GA Ac RA 78 -2 -2 0. D 44 IN ti TA 15 0- 0- 00 CA 01 EY ve DI 07 20 20 0 RE 85 NE 70 17 17 AL 1 PH CH 10 AR AE MA L MG CY S TA LL BL C ET TA 00 06 06 0 30 30 ME 14 GA Ac B- 90 -2 -2 0. D 44 IN ti A- 40 0- 0- 00 CA 01 EY ve 53 20 20 0 RE 86 TE 08 17 17 AL 0 PH CH TA AR AE BL MA L ET CY S LL C 00 06 06 0 30 30 ME 14 GA Ac TA 53 -2 -2 0. D 44 IN ti AL 63 0- 0- 00 CA 02 EY ve N 79 20 20 0 RE 04 D3 00 17 17 AL 1 PH CH 2, AR AE 00 MA L 0 CY S UN IT LL C SO FT GE L RO 00 06 06 0 15 30 ME 14 GA Ac BA 90 -2 -2 00 D 44 IN ti FE 40 0- 0- .0 CA 02 EY ve N- 05 20 20 00 RE 15 DM 31 17 17 AL 6 PH CH SY AR AE RU MA L P CY S LL C 00 06 06 0 30 30 ME 14 GA Ac PI 90 -2 -2 0. D 44 IN ti RI 46 0- 0- 00 CA 01 EY ve N 28 20 20 0 RE 76 81 88 17 17 AL 9 PH CH MG AR AE MA L CH CY S EW AB LL LE C TA BL ET FE 00 06 06 0 30 30 ME 14 GA Ac RR 53 -2 -2 0. D 44 IN ti OU 61 0- 0- 00 CA 01 EY ve S 00 20 20 0 RE 81 CLARK 90 17 17 AL LF 1 PH CH AT AR AE E MA L 32 CY S 5 MG LL C TA BL ET SE 00 06 06 0 12 30 ME 14 GA Ac NN 90 -2 -2 00 D 44 IN ti A- 46 0- 0- .0 CA 02 EY ve LA 52 20 20 00 RE 03 X 26 17 17 AL 8. 1 PH CH 6 AR AE MG MA L CY S TA BL LL ET C MA 00 06 06 0 60 30 ME 14 GA Ac PA 90 -2 -2 0. D 44 IN ti P 41 0- 0- 00 CA 02 EY ve 50 98 20 20 0 RE 05 0 86 17 17 AL MG 1 PH CH AR AE TA MA L BL CY S ET LL C ST 00 06 06 0 30 30 ME 14 GA Ac OO 53 -2 -2 0. D 44 IN ti L 61 0- 0- 00 CA 01 EY ve SO 06 20 20 0 RE 83 FT 41 17 17 AL EN 0 PH CH ER AR AE MA L 25 CY S 0 MG LL C SO FT GE L BI 00 05 06 0 12 12 ME 14 GA Ac SC 90 -2 -1 0. D 26 IN ti OL 45 6- 2- 00 CA 89 EY ve AX 05 20 20 0 RE 53 81 17 17 AL 10 2 PH CH AR AE MG MA L CY S CLARK PP LL OS C IT OR Y LO 00 03 05 0 30 30 ME 14 GA Ac RA 78 -1 -1 0. D 21 IN ti TA 15 9- 9- 00 CA 63 EY ve DI 07 20 20 0 RE 53 NE 70 17 17 AL 1 PH CH 10 AR AE MA L MG CY S TA LL BL C ET SE 00 03 05 0 12 30 ME 14 GA Ac NN 90 -1 -1 00 D 19 IN ti A- 46 9- 6- .0 CA 54 EY ve LA 52 20 20 00 RE 69 X 26 17 17 AL 8. 1 PH CH 6 AR AE MG MA L CY S TA BL LL ET C 00 03 05 0 30 30 ME 14 GA Ac TA 90 -1 -1 0. D 19 IN ti AL 45 9- 5- 00 CA 90 EY ve N 04 20 20 0 RE 88 AN 26 17 17 AL D 0 PH CH AL AR AE NE MA L RA CY S LS LL TA C BL ET ST 00 02 05 0 30 30 ME 14 GA Ac OO 53 -2 -1 0. D 18 IN ti L 61 3- 2- 00 CA 24 EY ve SO 06 20 20 0 RE 76 FT 41 17 17 AL EN 0 PH CH ER AR AE MA L 25 CY S 0 MG LL C SO FT GE L 00 03 05 0 30 30 ME 14 GA Ac TA 53 -1 -1 0. D 18 IN ti AL 63 9- 2- 00 CA 24 EY ve N 79 20 20 0 RE 82 D3 00 17 17 AL 1 PH CH 2, AR AE 00 MA L 0 CY S UN IT LL C SO FT GE L 00 03 05 0 30 30 ME 14 GA Ac PI 53 -1 -1 0. D 18 IN ti RI 61 9- 2- 00 CA 24 EY ve N 00 20 20 0 RE 73 EC 44 17 17 AL 1 PH CH 81 AR AE MA L MG CY S TA LL BL C ET BI 00 05 05 0 15 15 ME 14 GA Ac SC 90 -1 -1 0. D 18 IN ti OL 45 0- 0- 00 CA 07 EY ve AX 05 20 20 0 RE 34 81 17 17 AL 10 2 PH CH AR AE MG MA L CY S CLARK PP LL OS C IT OR Y FE 00 03 05 0 30 30 ME 14 GA Ac RR 53 -1 -0 0. D 14 IN ti OU 61 9- 5- 00 CA 67 EY ve S 00 20 20 0 RE 52 CLARK 90 17 17 AL LF 1 PH CH AT AR AE E MA L 32 CY S 5 MG LL C TA BL ET RO 00 04 05 0 15 30 ME 14 GA Ac BA 90 -0 -0 00 D 10 IN ti FE 40 7- 5- .0 CA 68 EY ve N- 05 20 20 00 RE 31 DM 31 17 17 AL 6 PH CH SY AR AE RU MA L P CY S LL C LO 45 03 04 0 30 30 ME 14 GA Ac RA 80 -1 -2 0. D 06 IN ti TA 20 9- 0- 00 CA 95 EY ve DI 65 20 20 0 RE 55 NE 08 17 17 AL 7 PH CH 10 AR AE MA L MG CY S TA LL BL C ET SE 00 03 04 0 12 30 ME 14 GA Ac NN 90 -1 -1 00 D 05 IN ti A- 46 9- 7- .0 CA 07 EY ve LA 52 20 20 00 RE 52 X 26 17 17 AL 8. 1 PH CH 6 AR AE MG MA L CY S TA BL LL ET C ST 00 02 04 0 30 30 ME 14 GA Ac OO 53 -2 -1 0. D 03 IN ti L 61 3- 3- 00 CA 60 EY ve SO 06 20 20 0 RE 86 FT 41 17 17 AL EN 0 PH CH ER AR AE MA L 25 CY S 0 MG LL C SO FT GE L 00 03 04 0 30 30 ME 14 GA Ac PI 53 -1 -1 0. D 03 IN ti RI 61 9- 3- 00 CA 60 EY ve N 00 20 20 0 RE 85 EC 44 17 17 AL 1 PH CH 81 AR AE MA L MG CY S TA LL BL C ET 00 03 04 0 30 30 ME 14 GA Ac TA 53 -1 -1 0. D 03 IN ti AL 63 9- 3- 00 CA 60 EY ve N 79 20 20 0 RE 88 D3 00 17 17 AL 1 PH CH 2, AR AE 00 MA L 0 CY S UN IT LL C SO FT GE L 00 03 04 0 30 30 ME 14 GA Ac TA 90 -1 -0 0. D 00 IN ti AL 45 9- 7- 00 CA 93 EY ve N 04 20 20 0 RE 00 AN 26 17 17 AL D 0 PH CH AL AR AE NE MA L RA CY S LS LL TA C BL ET FE 00 03 04 0 30 30 ME 14 GA Ac RR 53 -1 -0 0. D 00 IN ti OU 61 9- 7- 00 CA 92 EY ve S 00 20 20 0 RE 98 CLARK 90 17 17 AL LF 1 PH CH AT AR AE E MA L 32 CY S 5 MG LL C TA BL ET RO 00 04 04 0 15 30 ME 14 GA Ac BA 90 -0 -0 00 D 02 IN ti FE 40 7- 7- .0 CA 15 EY ve N- 05 20 20 00 RE 12 DM 31 17 17 AL 6 PH CH SY AR AE RU MA L P CY S LL C SP 00 02 03 0 30 15 ME 13 GA Ac IR 60 -0 -3 0. D 96 IN ti ON 35 2- 0- 00 CA 66 EY ve OL 76 20 20 0 RE 65 AC 32 17 17 AL TO 1 PH CH NE AR AE MA L 25 CY S MG LL C TA BL ET LO 00 03 03 0 30 30 ME 13 GA Ac RA 78 -1 -2 0. D 92 IN ti TA 15 9- 2- 00 CA 57 EY ve DI 07 20 20 0 RE 96 NE 70 17 17 AL 1 PH CH 10 AR AE MA L MG CY S TA LL BL C ET SE 00 03 03 0 12 30 ME 13 GA Ac NN 90 -1 -2 00 D 92 IN ti A- 46 9- 0- .0 CA 14 EY ve LA 52 20 20 00 RE 20 X 26 17 17 AL 8. 1 PH CH 6 AR AE MG MA L CY S TA BL LL ET C 00 07 03 0 30 30 ME 13 GA Ac TA 53 -2 -1 0. D 89 IN ti AL 63 5- 5- 00 CA 20 EY ve N 79 20 20 0 RE 80 D3 00 16 17 AL 1 PH CH 2, AR AE 00 MA L 0 CY S UN IT LL C SO FT GE L 00 09 03 0 30 30 ME 13 GA Ac PI 53 -1 -1 0. D 89 IN ti RI 61 9- 5- 00 CA 20 EY ve N 00 20 20 0 RE 76 EC 44 16 17 AL 1 PH CH 81 AR AE MA L MG CY S TA LL BL C ET ST 00 02 03 0 30 30 ME 13 GA Ac OO 53 -2 -1 0. D 89 IN ti L 61 3- 5- 00 CA 95 EY ve SO 06 20 20 0 RE 95 FT 41 17 17 AL EN 0 PH CH ER AR AE MA L 25 CY S 0 MG LL C SO FT GE L FE 00 09 03 0 30 30 ME 13 GA Ac RR 53 -1 -1 0. D 86 IN ti OU 61 9- 0- 00 CA 96 EY ve S 00 20 20 0 RE 49 CLARK 90 16 17 AL LF 1 PH CH AT AR AE E MA L 32 CY S 5 MG LL C TA BL ET 00 06 03 0 30 30 ME 13 GA Ac TA 90 -1 -1 0. D 86 IN ti AL 45 0- 0- 00 CA 96 EY ve N 04 20 20 0 RE 51 AN 26 16 17 AL D 0 PH CH AL AR AE NE MA L RA CY S LS LL TA C BL ET LO 00 09 02 0 30 30 ME 13 GA Ac RA 78 -0 -2 0. D 77 IN ti TA 15 1- 1- 00 CA 64 EY ve DI 07 20 20 0 RE 76 NE 70 16 17 AL 1 PH CH 10 AR AE MA L MG CY S TA LL BL C ET 00 07 02 0 30 30 ME 13 GA Ac TA 53 -2 -1 0. D 74 IN ti AL 63 5- 4- 00 CA 04 EY ve N 79 20 20 0 RE 52 D3 00 16 17 AL 1 PH CH 2, AR AE 00 MA L 0 CY S UN IT LL C SO FT GE L 00 09 02 0 30 30 ME 13 GA Ac PI 53 -1 -1 0. D 74 IN ti RI 61 9- 4- 00 CA 04 EY ve N 00 20 20 0 RE 51 EC 44 16 17 AL 1 PH CH 81 AR AE MA L MG CY S TA LL BL C ET ST 00 02 02 0 30 30 ME 13 GA Ac OO 53 -2 -1 0. D 73 IN ti L 61 3- 3- 00 CA 36 EY ve SO 06 20 20 0 RE 84 FT 41 16 17 AL EN 0 PH CH ER AR AE MA L 25 CY S 0 MG LL C SO FT GE L 00 06 02 0 30 30 ME 13 GA Ac TA 90 -1 -1 0. D 72 IN ti AL 45 0- 0- 00 CA 74 EY ve N 04 20 20 0 RE 29 AN 26 16 17 AL D 0 PH CH AL AR AE NE MA L RA CY S LS LL TA C BL ET FE 00 09 02 0 30 30 ME 13 GA Ac RR 90 -1 -0 0. D 72 IN ti OU 47 9- 9- 00 CA 08 EY ve S 59 20 20 0 RE 92 CLARK 18 16 17 AL LF 0 PH CH AT AR AE E MA L 32 CY S 5 MG LL C TA BL ET SE 00 09 02 0 12 30 ME 13 GA Ac NN 90 -1 -0 00 D 71 IN ti A 46 9- 7- .0 CA 32 EY ve 8. 43 20 20 00 RE 82 6 48 16 17 AL MG 0 PH CH AR AE TA MA L BL CY S ET LL C BI 00 09 02 0 15 15 ME 13 GA Ac SC 90 -1 -0 0. D 70 IN ti OL 45 9- 6- 00 CA 96 EY ve AX 05 20 20 0 RE 91 81 16 17 AL 10 2 PH CH AR AE MG MA L CY S CLARK PP LL OS C IT OR Y LO 00 09 01 0 30 30 ME 13 GA Ac RA 78 -0 -2 0. D 63 IN ti TA 15 1- 3- 00 CA 50 EY ve DI 07 20 20 0 RE 87 NE 70 16 17 AL 1 PH CH 10 AR AE MA L MG CY S TA LL BL C ET 00 09 01 0 30 30 ME 13 GA Ac PI 53 -1 -1 0. D 59 IN ti RI 61 9- 6- 00 CA 87 EY ve N 00 20 20 0 RE 11 EC 44 16 17 AL 1 PH CH 81 AR AE MA L MG CY S TA LL BL C ET 00 07 01 0 30 30 ME 13 GA Ac TA 53 -2 -1 0. D 59 IN ti AL 63 5- 6- 00 CA 87 EY ve N 79 20 20 0 RE 12 D3 00 16 17 AL 1 PH CH 2, AR AE 00 MA L 0 CY S UN IT LL C SO FT GE L ST 00 02 01 0 30 30 ME 13 GA Ac OO 53 -2 -1 0. D 59 IN ti L 61 3- 4- 00 CA 46 EY ve SO 06 20 20 0 RE 94 FT 41 16 17 AL EN 0 PH CH ER AR AE MA L 25 CY S 0 MG LL C SO FT GE L 00 06 01 0 30 30 ME 13 GA Ac TA 90 -1 -1 0. D 59 IN ti AL 45 0- 3- 00 CA 03 EY ve N 04 20 20 0 RE 67 AN 26 16 17 AL D 0 PH CH AL AR AE NE MA L RA CY S LS LL TA C BL ET SE 00 09 01 0 12 30 ME 13 GA Ac NN 90 -1 -1 00 D 58 IN ti A- 46 9- 2- .0 CA 61 EY ve LA 52 20 20 00 RE 97 X 26 16 17 AL 8. 1 PH CH 6 AR AE MG MA L CY S TA BL LL ET C FE 00 09 01 0 30 30 ME 13 GA Ac RR 53 -1 -1 0. D 57 IN ti OU 61 9- 1- 00 CA 54 EY ve S 00 20 20 0 RE 83 CLARK 90 16 17 AL LF 1 PH CH AT AR AE E MA L 32 CY S 5 MG LL C TA BL ET 00 12 01 0 10 1 ME 13 GA Ac TA 90 -1 -1 .0 D 58 IN ti AL 40 5- 0- 00 CA 30 EY ve N 52 20 20 RE 23 C 38 16 17 AL 50 0 PH CH 0 AR AE MG MA L CY S TA BL LL ET C ZI 00 12 12 0 10 1 ME 13 GA Ac NC 90 -1 -3 .0 D 53 IN ti 43 7- 0- 00 CA 28 EY ve GL 19 20 20 RE 54 UC 16 16 16 AL ON 0 PH CH AT AR AE E MA L 50 CY S MG LL C TA BL ET LO 00 09 12 0 30 30 ME 13 GA Ac RA 78 -0 -2 0. D 50 IN ti TA 15 1- 6- 00 CA 21 EY ve DI 07 20 20 0 RE 30 NE 70 16 16 AL 1 PH CH 10 AR AE MA L MG CY S TA LL BL C ET 00 09 12 0 30 30 ME 13 GA Ac PI 53 -1 -1 0. D 45 IN ti RI 61 9- 7- 00 CA 89 EY ve N 00 20 20 0 RE 61 EC 44 16 16 AL 1 PH CH 81 AR AE MA L MG CY S TA LL BL C ET 00 07 12 0 30 30 ME 13 GA Ac TA 53 -2 -1 0. D 45 IN ti AL 63 5- 7- 00 CA 89 EY ve N 79 20 20 0 RE 62 D3 00 16 16 AL 1 PH CH 2, AR AE 00 MA L 0 CY S UN IT LL C SO FT GE L ZI 00 12 12 0 14 14 ME 13 GA Ac NC 90 -1 -1 0. D 46 IN ti 43 7- 7- 00 CA 89 EY ve GL 19 20 20 0 RE 55 UC 16 16 16 AL ON 0 PH CH AT AR AE E MA L 50 CY S MG LL C TA BL ET ST 00 02 12 0 30 30 ME 13 GA Ac OO 53 -2 -1 0. D 45 IN ti L 61 3- 6- 00 CA 28 EY ve SO 06 20 20 0 RE 42 FT 41 16 16 AL EN 0 PH CH ER AR AE MA L 25 CY S 0 MG LL C SO FT GE L 00 12 12 0 30 30 ME 13 GA Ac TA 90 -1 -1 0. D 45 IN ti AL 40 5- 5- 00 CA 69 EY ve N 52 20 20 0 RE 93 C 38 16 16 AL 50 0 PH CH 0 AR AE MG MA L CY S TA BL LL ET C SE 00 09 12 0 12 30 ME 13 GA Ac NN 90 -1 -1 00 D 46 IN ti A- 46 9- 5- .0 CA 00 EY ve LA 52 20 20 00 RE 68 X 26 16 16 AL 8. 1 PH CH 6 AR AE MG MA L CY S TA BL LL ET C 00 06 12 0 30 30 ME 13 GA Ac TA 90 -1 -1 0. D 44 IN ti AL 45 0- 4- 00 CA 20 EY ve N 04 20 20 0 RE 08 AN 26 16 16 AL D 0 PH CH AL AR AE NE MA L RA CY S LS LL TA C BL ET FE 00 09 12 0 30 30 ME 13 GA Ac RR 53 -1 -1 0. D 44 IN ti OU 61 9- 4- 00 CA 97 EY ve S 00 20 20 0 RE 74 CLARK 90 16 16 AL LF 1 PH CH AT AR AE E MA L 32 CY S 5 MG LL C TA BL ET LO 00 09 11 0 30 30 ME 13 GA Ac RA 78 -0 -2 0. D 35 IN ti TA 15 1- 8- 00 CA 75 EY ve DI 07 20 20 0 RE 27 NE 70 16 16 AL 1 PH CH 10 AR AE MA L MG CY S TA LL BL C ET BA 00 11 11 0 28 7 ME 13 GA Ac CI 16 -1 -2 3. D 36 IN ti TR 80 7- 6- 50 CA 23 EY ve AC 02 20 20 0 RE 22 IN 13 16 16 AL -P 1 PH CH OL AR AE YM MA L YX CY S IN LL OI C NT ME NT SE 00 09 11 0 12 30 ME 13 GA Ac NN 90 -1 -2 00 D 32 IN ti A- 46 9- 1- .0 CA 02 EY ve LA 52 20 20 00 RE 30 X 26 16 16 AL 8. 1 PH CH 6 AR AE MG MA L CY S TA BL LL ET C 00 09 11 0 30 30 ME 13 GA Ac PI 53 -1 -1 0. D 30 IN ti RI 61 9- 8- 00 CA 83 EY ve N 00 20 20 0 RE 45 EC 44 16 16 AL 1 PH CH 81 AR AE MA L MG CY S TA LL BL C ET FE 00 09 11 0 30 30 ME 13 GA Ac RR 53 -1 -1 0. D 30 IN ti OU 61 9- 8- 00 CA 83 EY ve S 00 20 20 0 RE 46 CLARK 90 16 16 AL LF 1 PH CH AT AR AE E MA L 32 CY S 5 MG LL C TA BL ET 00 07 11 0 30 30 ME 13 GA Ac TA 53 -2 -1 0. D 30 IN ti AL 63 5- 8- 00 CA 83 EY ve N 79 20 20 0 RE 49 D3 00 16 16 AL 1 PH CH 2, AR AE 00 MA L 0 CY S UN IT LL C SO FT GE L BA 00 11 11 0 28 14 ME 13 GA Ac CI 16 -1 -1 3. D 31 IN ti TR 80 7- 7- 50 CA 32 EY ve AC 02 20 20 0 RE 58 IN 13 16 16 AL -P 1 PH CH OL AR AE YM MA L YX CY S IN LL OI C NT ME NT ST 00 02 11 0 30 30 ME 13 GA Ac OO 53 -2 -1 0. D 29 IN ti L 61 3- 7- 00 CA 93 EY ve SO 06 20 20 0 RE 73 FT 41 16 16 AL EN 0 PH CH ER AR AE MA L 25 CY S 0 MG LL C SO FT GE L 00 06 11 0 30 30 ME 13 GA Ac TA 90 -1 -1 0. D 27 IN ti AL 45 0- 4- 00 CA 96 EY ve N 04 20 20 0 RE 19 AN 26 16 16 AL D 0 PH CH AL AR AE NE MA L RA CY S LS LL TA C BL ET LO 00 09 10 0 30 30 ME 13 GA Ac RA 78 -0 -2 0. D 19 IN ti TA 15 1- 8- 00 CA 67 EY ve DI 07 20 20 0 RE 75 NE 70 16 16 AL 1 PH CH 10 AR AE MA L MG CY S TA LL BL C ET SE 00 09 10 0 12 30 ME 13 GA Ac NN 90 -1 -2 00 D 16 IN ti A- 46 9- 2- .0 CA 73 EY ve LA 52 20 20 00 RE 99 X 26 16 16 AL 8. 1 PH CH 6 AR AE MG MA L CY S TA BL LL ET C 00 07 10 0 30 30 ME 13 GA Ac TA 53 -2 -2 0. D 16 IN ti AL 63 5- 1- 00 CA 09 EY ve N 79 20 20 0 RE 46 D3 00 16 16 AL 1 PH CH 2, AR AE 00 MA L 0 CY S UN IT LL C SO FT GE L 00 09 10 0 30 30 ME 13 GA Ac PI 53 -1 -2 0. D 15 IN ti RI 61 9- 0- 00 CA 55 EY ve N 00 20 20 0 RE 55 EC 44 16 16 AL 1 PH CH 81 AR AE MA L MG CY S TA LL BL C ET FE 00 09 10 0 30 30 ME 13 GA Ac RR 53 -1 -2 0. D 15 IN ti OU 61 9- 0- 00 CA 55 EY ve S 00 20 20 0 RE 56 CLARK 90 16 16 AL LF 1 PH CH AT AR AE E MA L 32 CY S 5 MG LL C TA BL ET ST 00 02 10 0 30 30 ME 13 GA Ac OO 53 -2 -1 0. D 14 IN ti L 61 3- 9- 00 CA 82 EY ve SO 06 20 20 0 RE 28 FT 41 16 16 AL EN 0 PH CH ER AR AE MA L 25 CY S 0 MG LL C SO FT GE L 00 11 10 0 30 30 ME 13 GA Ac TA 90 -0 -1 0. D 13 IN ti AL 45 5- 5- 00 CA 15 EY ve N 04 20 20 0 RE 57 AN 26 15 16 AL D 0 PH CH AL AR AE NE MA L RA CY S LS LL TA C BL ET LO 00 09 09 0 30 30 ME 13 GA Ac RA 78 -0 -2 0. D 03 IN ti TA 15 1- 9- 00 CA 49 EY ve DI 07 20 20 0 RE 14 NE 70 16 16 AL 1 PH CH 10 AR AE MA L MG CY S TA LL BL C ET SE 00 09 09 0 12 30 ME 13 GA Ac NN 90 -1 -2 00 D 00 IN ti A- 46 9- 3- .0 CA 42 EY ve LA 52 20 20 00 RE 47 X 26 16 16 AL 8. 1 PH CH 6 AR AE MG MA L CY S TA BL LL ET C FE 00 09 09 0 30 30 ME 13 GA Ac RR 53 -1 -2 0. D 00 IN ti OU 61 9- 2- 00 CA 79 EY ve S 00 20 20 0 RE 89 CLARK 90 16 16 AL LF 1 PH CH AT AR AE E MA L 32 CY S 5 MG LL C TA BL ET 00 09 09 0 30 30 ME 13 GA Ac PI 53 -1 -2 0. D 00 IN ti RI 61 9- 2- 00 CA 79 EY ve N 00 20 20 0 RE 87 EC 44 16 16 AL 1 PH CH 81 AR AE MA L MG CY S TA LL BL C ET 00 07 09 0 30 30 ME 12 GA Ac TA 53 -2 -2 0. D 99 IN ti AL 63 5- 1- 00 CA 05 EY ve N 79 20 20 0 RE 58 D3 00 16 16 AL 1 PH CH 2, AR AE 00 MA L 0 CY S UN IT LL C SO FT GE L ST 00 02 09 0 30 30 ME 12 GA Ac OO 53 -2 -1 0. D 97 IN ti L 61 3- 9- 00 CA 85 EY ve SO 06 20 20 0 RE 93 FT 41 16 16 AL EN 0 PH CH ER AR AE MA L 25 CY S 0 MG LL C SO FT GE L 00 11 09 0 30 30 ME 12 GA Ac TA 90 -0 -1 0. D 96 IN ti AL 45 5- 6- 00 CA 80 EY ve N 04 20 20 0 RE 50 AN 26 15 16 AL D 0 PH CH AL AR AE NE MA L RA CY S LS LL TA C BL ET LO 00 09 09 0 30 30 ME 12 GA Ac RA 78 -0 -0 0. D 90 IN ti TA 15 1- 1- 00 CA 04 EY ve DI 07 20 20 0 RE 71 NE 70 16 16 AL 1 PH CH 10 AR AE MA L MG CY S TA LL BL C ET SE 00 10 08 0 12 30 ME 12 GA Ac NN 90 -2 -2 00 D 84 IN ti A- 46 9- 5- .0 CA 88 EY ve LA 52 20 20 00 RE 51 X 26 15 16 AL 8. 1 PH CH 6 AR AE MG MA L CY S TA BL LL ET C 00 07 08 0 30 30 ME 12 GA Ac TA 53 -2 -2 0. D 82 IN ti AL 63 5- 2- 00 CA 65 EY ve N 79 20 20 0 RE 09 D3 00 16 16 AL 1 PH CH 2, AR AE 00 MA L 0 CY S UN IT LL C SO FT GE L ST 00 02 08 0 30 30 ME 12 GA Ac OO 53 -2 -2 0. D 83 IN ti L 61 3- 2- 00 CA 20 EY ve SO 06 20 20 0 RE 28 FT 41 16 16 AL EN 0 PH CH ER AR AE MA L 25 CY S 0 MG LL C SO FT GE L FE 00 10 08 0 30 30 ME 12 GA Ac RR 53 -1 -2 0. D 81 IN ti OU 61 0- 0- 00 CA 18 EY ve S 00 20 20 0 RE 40 CLARK 90 15 16 AL LF 1 PH CH AT AR AE E MA L 32 CY S 5 MG LL C TA BL ET 00 11 08 0 30 30 ME 12 GA Ac TA 90 -0 -1 0. D 79 IN ti AL 45 5- 7- 00 CA 28 EY ve N 04 20 20 0 RE 11 AN 26 15 16 AL D 0 PH CH AL AR AE NE MA L RA CY S LS LL TA C BL ET 00 10 08 0 30 30 ME 12 GA Ac PI 60 -0 -1 0. D 77 IN ti RI 30 9- 5- 00 CA 97 EY ve N 02 20 20 0 RE 73 EC 63 15 16 AL 2 PH CH 81 AR AE MA L MG CY S TA LL BL C ET MA 00 10 08 0 11 14 ME 12 GA Ac PA 90 -1 -0 20 D 74 IN ti P 41 0- 5- .0 CA 68 EY ve 50 98 20 20 00 RE 78 0 86 15 16 AL MG 1 PH CH AR AE TA MA L BL CY S ET LL C 00 07 07 0 30 30 ME 12 GA Ac TA 90 -2 -2 0. D 70 IN ti AL 40 8- 8- 00 CA 32 EY ve N 52 20 20 0 RE 12 C 38 16 16 AL 50 0 PH CH 0 AR AE MG MA L CY S TA BL LL ET C SE 00 10 07 0 12 30 ME 12 GA Ac NN 90 -2 -2 00 D 68 IN ti A- 46 9- 6- .0 CA 52 EY ve LA 52 20 20 00 RE 91 X 26 15 16 AL 8. 1 PH CH 6 AR AE MG MA L CY S TA BL LL ET C 00 07 07 0 30 30 ME 12 GA Ac TA 53 -2 -2 0. D 69 IN ti AL 63 5- 5- 00 CA 13 EY ve N 79 20 20 0 RE 18 D3 00 16 16 AL 1 PH CH 2, AR AE 00 MA L 0 CY S UN IT LL C SO FT GE L FE 00 10 07 0 30 30 ME 12 GA Ac RO 90 -1 -2 0. D 67 IN ti CLARK 47 0- 2- 00 CA 26 EY ve L 59 20 20 0 RE 65 32 08 15 16 AL 5 2 PH CH MG AR AE MA L TA CY S BL ET LL C 00 11 07 0 30 30 ME 12 GA Ac TA 90 -0 -1 0. D 65 IN ti AL 45 5- 8- 00 CA 97 EY ve N 04 20 20 0 RE 60 AN 26 15 16 AL D 0 PH CH AL AR AE NE MA L RA CY S LS LL TA C BL ET BI 00 03 07 0 15 15 ME 12 GA Ac SC 90 -1 -1 0. D 66 IN ti OL 45 0- 8- 00 CA 34 EY ve AX 05 20 20 0 RE 86 86 16 16 AL 10 0 PH CH AR AE MG MA L CY S CLARK PP LL OS C IT OR Y 00 10 07 0 30 30 ME 12 GA Ac PI 60 -0 -1 0. D 65 IN ti RI 30 9- 6- 00 CA 73 EY ve N 02 20 20 0 RE 27 EC 63 15 16 AL 2 PH CH 81 AR AE MA L MG CY S TA LL BL C ET ST 00 02 07 0 30 30 ME 12 GA Ac OO 53 -2 -1 0. D 63 IN ti L 61 3- 1- 00 CA 34 EY ve SO 06 20 20 0 RE 73 FT 41 16 16 AL EN 0 PH CH ER AR AE MA L 25 CY S 0 MG LL C SO FT GE L SE 00 10 06 0 12 30 ME 12 GA Ac NN 90 -2 -2 00 D 58 IN ti A- 46 9- 7- .0 CA 07 EY ve LA 52 20 20 00 RE 66 X 26 15 16 AL 8. 1 PH CH 6 AR AE MG MA L CY S TA BL LL ET C FE 00 10 06 0 30 30 ME 12 GA Ac RO 90 -1 -2 0. D 56 IN ti CLARK 47 0- 2- 00 CA 63 EY ve L 59 20 20 0 RE 47 32 08 15 16 AL 5 2 PH CH MG AR AE MA L TA CY S BL ET LL C 00 11 06 0 30 30 ME 12 GA Ac TA 90 -0 -1 0. D 55 IN ti AL 45 5- 8- 00 CA 21 EY ve N 04 20 20 0 RE 00 AN 26 15 16 AL D 0 PH CH AL AR AE NE MA L RA CY S LS LL TA C BL ET BI 00 03 06 0 15 15 ME 12 GA Ac SC 90 -1 -1 0. D 55 IN ti OL 45 0- 7- 00 CA 42 EY ve AX 05 20 20 0 RE 04 86 16 16 AL 10 0 PH CH AR AE MG MA L CY S CLARK PP LL OS C IT OR Y 00 10 06 0 30 30 ME 12 GA Ac PI 60 -0 -1 0. D 54 IN ti RI 30 9- 7- 00 CA 90 EY ve N 02 20 20 0 RE 56 EC 63 15 16 AL 2 PH CH 81 AR AE MA L MG CY S TA LL BL C ET ST 00 02 06 0 30 30 ME 12 GA Ac OO 53 -2 -1 0. D 53 IN ti L 61 3- 3- 00 CA 62 EY ve SO 06 20 20 0 RE 57 FT 41 16 16 AL EN 0 PH CH ER AR AE MA L 25 CY S 0 MG LL C SO FT GE L SE 00 10 05 0 12 30 ME 12 GA Ac NN 90 -2 -2 00 D 48 IN ti A 45 9- 8- .0 CA 35 EY ve 8. 16 20 20 00 RE 71 6 56 15 16 AL MG 1 PH CH AR AE TA MA L BL CY S ET LL C FE 00 10 05 0 30 30 ME 12 GA Ac RO 90 -1 -2 0. D 45 IN ti CLARK 47 0- 3- 00 CA 78 EY ve L 59 20 20 0 RE 37 32 08 15 16 AL 5 2 PH CH MG AR AE MA L TA CY S BL ET LL C BI 00 03 05 0 15 15 ME 12 GA Ac SC 90 -1 -2 0. D 46 IN ti OL 45 0- 1- 00 CA 12 EY ve AX 05 20 20 0 RE 33 86 16 16 AL 10 0 PH CH AR AE MG MA L CY S CLARK PP LL OS C IT OR Y 00 11 05 0 30 30 ME 12 GA Ac TA 90 -0 -2 0. D 45 IN ti AL 45 5- 0- 00 CA 09 EY ve N 04 20 20 0 RE 35 AN 26 15 16 AL D 0 PH CH AL AR AE NE MA L RA CY S LS LL TA C BL ET 00 10 05 0 30 30 ME 12 GA Ac PI 60 -0 -1 0. D 44 IN ti RI 30 9- 8- 00 CA 30 EY ve N 02 20 20 0 RE 82 EC 63 15 16 AL 2 PH CH 81 AR AE MA L MG CY S TA LL BL C ET TR 45 05 05 0 85 15 ME 12 GA Ac OL 80 -1 -1 0. D 44 IN ti AM 20 7- 7- 00 CA 21 EY ve IN 35 20 20 0 RE 63 E 65 16 16 AL SA 3 PH CH LI AR AE CY MA L LA CY S TE LL 10 C % CR EA M ST 00 02 05 0 30 30 ME 12 GA Ac OO 53 -2 -1 0. D 42 IN ti L 61 3- 3- 00 CA 78 EY ve SO 06 20 20 0 RE 12 FT 41 16 16 AL EN 0 PH CH ER AR AE MA L 25 CY S 0 MG LL C SO FT GE L SE 00 10 04 0 12 30 ME 12 GA Ac NN 90 -2 -2 00 D 38 IN ti A 45 9- 9- .0 CA 00 EY ve 8. 16 20 20 00 RE 41 6 56 15 16 AL MG 1 PH CH AR AE TA MA L BL CY S ET LL C FE 00 10 04 0 30 30 ME 12 GA Ac RO 90 -1 -2 0. D 36 IN ti CLARK 47 0- 5- 00 CA 33 EY ve L 59 20 20 0 RE 19 32 08 15 16 AL 5 2 PH CH MG AR AE MA L TA CY S BL ET LL C 00 11 04 0 30 30 ME 12 GA Ac TA 90 -0 -2 0. D 34 IN ti AL 45 5- 1- 00 CA 77 EY ve N 04 20 20 0 RE 79 AN 26 15 16 AL D 0 PH CH AL AR AE NE MA L RA CY S LS LL TA C BL ET 00 10 04 0 30 30 ME 12 GA Ac PI 60 -0 -1 0. D 33 IN ti RI 30 9- 8- 00 CA 77 EY ve N 02 20 20 0 RE 74 EC 63 15 16 AL 2 PH CH 81 AR AE MA L MG CY S TA LL BL C ET ST 00 02 04 0 30 30 ME 12 GA Ac OO 53 -2 -1 0. D 33 IN ti L 61 3- 5- 00 CA 32 EY ve SO 06 20 20 0 RE 30 FT 41 16 16 AL EN 0 PH CH ER AR AE MA L 25 CY S 0 MG LL C SO FT GE L SE 00 10 03 0 12 30 ME 12 GA Ac NN 90 -2 -3 00 D 27 IN ti A 45 9- 0- .0 CA 50 EY ve 8. 16 20 20 00 RE 78 6 56 15 16 AL MG 1 PH CH AR AE TA MA L BL CY S ET LL C FE 00 10 03 0 30 30 ME 12 GA Ac RO 90 -1 -2 0. D 27 IN ti CLARK 47 0- 9- 00 CA 31 EY ve L 59 20 20 0 RE 11 32 08 15 16 AL 5 2 PH CH MG AR AE MA L TA CY S BL ET LL C 00 11 03 0 30 30 ME 12 GA Ac TA 90 -0 -2 0. D 26 IN ti AL 45 5- 4- 00 CA 13 EY ve N 04 20 20 0 RE 04 AN 26 15 16 AL D 0 PH CH AL AR AE NE MA L RA CY S LS LL TA C BL ET ST 00 02 03 0 30 30 ME 12 GA Ac OO 53 -2 -2 0. D 24 IN ti L 61 3- 2- 00 CA 91 EY ve SO 06 20 20 0 RE 08 FT 41 16 16 AL EN 0 PH CH ER AR AE MA L 25 CY S 0 MG LL C SO FT GE L 00 10 03 0 30 30 ME 12 GA Ac PI 60 -0 -2 0. D 25 IN ti RI 30 9- 1- 00 CA 14 EY ve N 02 20 20 0 RE 48 EC 63 15 16 AL 2 PH CH 81 AR AE MA L MG CY S TA LL BL C ET BI 00 03 03 0 15 15 ME 12 GA Ac SC 90 -1 -1 0. D 21 IN ti OL 45 0- 0- 00 CA 54 EY ve AX 05 20 20 0 RE 70 86 16 16 AL 10 0 PH CH AR AE MG MA L CY S CLARK PP LL OS C IT OR Y FE 00 10 02 0 30 30 ME 12 GA Ac RO 90 -1 -2 0. D 17 IN ti CLARK 47 0- 9- 00 CA 54 EY ve L 59 20 20 0 RE 28 32 08 15 16 AL 5 2 PH CH MG AR AE MA L TA CY S BL ET LL C SE 00 10 02 0 12 30 ME 12 GA Ac NN 90 -2 -2 00 D 17 IN ti A 45 9- 9- .0 CA 54 EY ve 8. 16 20 20 00 RE 30 6 56 15 16 AL MG 1 PH CH AR AE TA MA L BL CY S ET LL C 00 10 02 0 30 30 ME 12 GA Ac PI 60 -0 -2 0. D 16 IN ti RI 30 9- 6- 00 CA 76 EY ve N 02 20 20 0 RE 41 EC 63 15 16 AL 2 PH CH 81 AR AE MA L MG CY S TA LL BL C ET 00 11 02 0 30 30 ME 12 GA Ac TA 90 -0 -2 0. D 16 IN ti AL 45 5- 6- 00 CA 76 EY ve N 04 20 20 0 RE 44 AN 26 15 16 AL D 0 PH CH AL AR AE NE MA L RA CY S LS LL TA C BL ET ST 00 02 02 0 30 30 ME 12 GA Ac OO 53 -2 -2 0. D 16 IN ti L 61 3- 3- 00 CA 16 EY ve SO 06 20 20 0 RE 99 FT 41 16 16 AL EN 0 PH CH ER AR AE MA L 25 CY S 0 MG LL C SO FT GE L NO 64 02 02 0 30 5 ME 12 GA Ac RM 25 -1 -1 00 D 14 IN ti AL 30 9- 9- .0 CA 72 EY ve 11 20 20 00 RE 74 SA 13 16 16 AL LI 0 PH CH NE AR AE MA L FL CY S US H LL SY C RI NG E HE 64 02 02 0 10 5 ME 12 GA Ac PA 25 -1 -1 00 D 14 IN ti RI 30 9- 9- .0 CA 72 EY ve N 33 20 20 00 RE 75 50 33 16 16 AL 0 5 PH CH UN AR AE IT MA L /5 CY S ML LL C (1 00 /M L) NI 00 10 10 0 30 1 ME 11 GA Ac TR 28 -0 -0 0. D 70 IN ti O- 10 2- 2- 00 CA 90 EY ve BI 32 20 20 0 RE 44 D 63 15 15 AL 2% 0 PH CH AR AE OI MA L NT CY S ME NT LL C NO 00 10 10 0 10 15 ME 11 GA Ac VO 16 -0 -0 00 D 70 IN ti FI 91 1- 1- .0 CA 82 EY ve NE 85 20 20 00 RE 35 27 15 15 AL AU 5 PH CH TO AR AE CO MA L VE CY S R 30 LL G C NE ED LE MO 00 10 10 0 30 15 ME 11 GA Ac RP 40 -0 -0 0. D 70 IN ti HI 68 1- 1- 00 CA 82 EY ve NE 31 20 20 0 RE 36 50 15 15 AL CLARK 1 PH CH LF AR AE MA L ER CY S 15 LL C MG TA BL ET MA 00 09 09 0 19 3 ME 11 GA Ac PA 90 -1 -2 0. D 69 IN ti P 41 1- 8- 00 CA 64 EY ve 50 98 20 20 0 RE 31 0 86 15 15 AL MG 1 PH CH AR AE TA MA L BL CY S ET LL C 00 09 09 0 13 13 ME 11 GA Ac TA 90 -1 -1 0. D 66 IN ti AL 45 7- 7- 00 CA 15 EY ve N 04 20 20 0 RE 56 AN 26 15 15 AL D 0 PH CH AL AR AE NE MA L RA CY S LS LL TA C BL ET FE 00 09 09 0 30 30 ME 11 GA Ac RR 60 -1 -1 0. D 66 IN ti OU 30 7- 7- 00 CA 15 EY ve S 17 20 20 0 RE 57 CLARK 92 15 15 AL LF 9 PH CH AT AR AE E MA L 32 CY S 5 MG LL C TA BL ET 63 09 09 0 20 20 ME 11 GA Ac PI 73 -1 -1 0. D 64 IN ti RI 90 1- 1- 00 CA 99 EY ve N 43 20 20 0 RE 10 81 40 15 15 AL 1 PH CH MG AR AE MA L CH CY S EW AB LL LE C TA BL ET CA 68 03 09 0 18 90 WA 73 SM Ac RV 46 -1 -0 00 L- 69 IT ti ED 20 0- 3- .0 MA 55 H ve IL 16 20 20 00 RT 9 AL OL 50 15 15 KE 5 PH [...] -0 -0 0. L- 67 RS ti AL 96 4- 3- 00 MA 45 ON [...] 15 15 EU E 5 PH GO ME AR ND OP MA A CY F 50 # MC 10 G 05 SP 91 RA Y CL 16 03 08 7 30 30 KM 68 SM Ac OP 72 -1 -1 0. AR 59 IT ti ID 90 0- 2- 00 T 40 H ve OG 21 20 20 0 PH 5 AL RE 81 15 15 AR KE L 5 MA L 75 CY D # MG 48 TA 47 BL ET LE 00 12 08 11 15 30 KM 68 PA Ac VE 16 -0 -0 0. AR 56 RS ti AL 96 4- 5- 00 T 02 ON [...] 6- 4- 00 T 23 ON ve AL 21 20 20 0 PH 7 S DE 61 14 15 AR JE 0 MA RE 40 CY MY # C MG 48 TA 47 BL ET AT 00 04 08 4 30 30 KM 68 SM Ac OR 37 -0 -0 0. AR 59 IT ti VA 83 7- 4- 00 [address] 95 20 20 0 PH 7 AL AT 37 15 15 AR KE IN 7 MA L CY D 80 # MG 48 47 TA BL ET ME 59 04 07 11 85 17 KM [...] 6- 8- 00 T 23 ON ve AL 21 20 20 0 PH 7 S DE 61 14 15 AR JE 0 MA RE 40 CY MY # C MG 48 TA 47 BL ET AT 00 04 07 4 30 30 KM 68 SM Ac OR 37 -0 -0 0. AR 59 IT ti VA 83 7- 8- 00 [address] 95 20 20 0 PH 7 AL AT 37 15 15 AR KE IN 7 MA L CY D 80 # MG 48 47 TA BL ET CL 16 03 07 7 30 30 KM 68 SM Ac OP 72 -1 -0 0. AR 59 IT ti ID 90 0- 8- 00 T 40 H ve OG 21 20 20 0 PH 5 AL RE 81 15 15 AR KE L 5 MA L 75 CY D # MG 48 TA 47 BL ET LE 00 12 06 11 15 30 KM 68 PA Ac VE 16 -0 -2 0. AR 56 RS ti AL 96 4- 9- 00 T 02 ON [...] OG 21 20 20 0 PH 5 AL RE 81 15 15 AR KE L 5 MA L 75 CY D # MG 48 TA 47 BL ET AT 00 04 06 4 30 30 KM 68 SM Ac OR 37 -0 -0 0. AR 59 IT ti VA 83 7- 3- 00 T [address] 95 20 20 0 PH 7 AL AT 37 15 15 AR KE IN 7 MA L CY D 80 # MG 48 47 TA BL ET FU 00 10 06 11 60 30 KM 68 PA Ac RO 37 -0 -0 0. AR 54 RS ti SE 80 6- 3- 00 T 23 ON ve AL 21 20 20 0 PH 7 S [...] RE CE CY MY TA # C AL NO 48 PH 47 N 10 -3 [...] 6- 4- 00 T 23 ON ve AL 21 20 20 0 PH 7 S DE 61 14 15 AR JE 0 MA RE 40 CY MY # C MG 48 TA 47 BL ET AT 00 04 05 4 30 30 KM 68 SM Ac OR 37 -0 -0 0. AR 59 IT ti VA 83 7- 4- 00 [address] 95 20 20 0 PH 7 AL AT 37 15 15 AR KE IN 7 MA L CY D 80 # MG 48 47 TA BL ET CL 16 03 05 7 30 30 KM 68 SM Ac OP 72 -1 -0 0. AR 59 IT ti ID 90 0- 4- 00 T 40 H ve OG 21 20 20 0 PH 5 AL RE 81 15 15 AR KE L 5 MA L 75 CY D # MG 48 TA 47 BL ET RO 43 03 05 1 60 30 KM 68 SM Ac PI 54 -1 -0 0. AR 59 IT ti NI 70 0- 4- 00 T 40 H ve RO 27 20 20 0 PH 6 AL LE 11 15 15 AR KE 0 [...] C CA PS 48 UL 47 E ME 59 04 04 11 85 17 KM [...] PH 1 1 01 15 15 AR AL 4 MA CH GM CY AE /1 [...] OG 21 20 20 0 PH 5 AL RE 81 15 15 AR KE L 5 MA L 75 CY D # MG 48 TA 47 BL ET RO 43 03 04 1 60 30 KM 68 SM Ac PI 54 -1 -0 0. AR 59 IT ti NI 70 0- 7- 00 T 40 H ve RO 27 20 20 0 PH 6 AL LE 11 15 15 AR KE 0 MA L HC CY D L # 2 MG 48 47 TA BL ET AT 00 04 04 4 30 30 KM 68 SM Ac OR 37 -0 -0 0. AR 59 IT ti VA 83 7- 7- 00 T [address] 95 20 20 0 PH 7 AL AT 37 15 15 AR KE IN [...] ve 01 20 20 0 [place] 38 AL 50 36 15 15 2 KE 8 CL L MG IN D IC CA PS PH UL AR E MA CY LI 00 03 03 1 90 90 KE 52 SM Ac SI 17 -1 -1 0. NT 60 IT ti NO 23 0- 0- 00 UC 92 H ve ME 75 20 20 0 [place] 71 AL IL 98 15 15 6 KE 0 CL L 10 IN D IC MG PH TA AR BL MA ET CY LE 00 03 03 1 15 83 KE 52 SM Ac VE 16 -1 -1 0. NT 60 IT ti AL 96 0- 0- 00 UC 92 H ve R 43 20 20 0 [place] 71 AL FL 81 15 15 8 KE EX 0 CL L TO IN D UC IC H 10 PH 0 AR UN MA IT CY S/ ML AM 00 03 03 0 40 8 KE 52 SM Ac IT 60 -1 -1 .0 NT 60 IT ti RI 32 0- 0- 00 UC 92 H ve PT 21 20 20 [place] 71 AL YL 32 15 15 3 KE IN 1 CL L E IN D HC IC L 25 PH AR MG MA CY TA B RO 23 03 03 0 60 30 KE 52 SM Ac PI 15 -1 -1 0. NT 60 IT ti NI 50 0- 0- 00 UC 92 H ve RO 12 20 20 0 [place] 71 AL LE 40 15 15 2 KE 1 CL L HC IN D L IC 2 MG PH AR TA MA BL CY ET NO 00 03 03 1 15 62 KE 52 SM Ac VO 16 -1 -1 0. NT 60 IT ti LO 96 0- 0- 00 UC 92 H ve G 33 20 20 0 [place] 71 AL 10 91 15 15 7 KE 0 0 CL L UN IN D IT IC S/ ML PH AR FL MA EX CY PE N AT 60 03 03 1 30 30 KE 52 SM Ac OR 50 -1 -1 0. NT 60 IT ti VA 52 0- 0- 00 UC [address] 67 20 20 0 [place] 72 AL AT 10 15 15 0 KE IN 9 CL L IN D 80 IC MG PH AR TA MA BL CY ET ON 53 03 03 1 10 25 KE 52 SM Ac ET 88 -1 -1 00 NT 60 IT ti OU 50 0- 0- .0 UC 92 H ve CH 24 20 20 00 [place] 73 AL 51 15 15 0 KE UL 0 CL L TR IN D A IC TE ST PH AR ST MA RI CY PS ON 53 03 03 1 10 30 KE 52 SM Ac ET 88 -1 -1 00 NT 60 IT ti OU 50 0- 0- .0 UC 92 H ve CH 14 20 20 00 [place] 72 AL 30 15 15 9 KE DE 1 CL L LI IN D CA IC 33 PH G AR LA MA NC CY ET S CL 55 03 03 2 30 30 KE 52 SM Ac OP 11 -1 -1 0. NT 60 IT ti ID 10 0- 0- 00 UC 92 H ve OG 19 20 20 0 [place] 71 AL RE 69 15 15 9 KE L 0 CL L 75 IN D IC MG PH TA AR BL MA ET CY ON 53 03 03 0 10 30 KE 52 SM Ac ET 88 -1 -1 .0 NT 60 IT ti OU 50 0- 0- 00 UC 92 H ve CH 44 20 20 [place] 72 AL 80 15 15 1 KE UL 1 CL L TR IN D A2 IC GL PH UC AR OS MA E CY SY ST 00 03 03 1 90 90 KE 52 SM Ac PI 60 -1 -1 0. NT 60 IT ti RI 30 0- 0- 00 UC 92 H ve N 02 20 20 0 [place] 71 AL EC 62 15 15 4 KE 2 CL L 81 IN D IC MG PH TA AR BL MA ET CY CA 68 03 03 1 18 90 KE 52 SM Ac RV 38 -1 -1 00 NT 60 IT ti ED 20 0- 0- .0 UC 92 H ve IL 09 20 20 00 [place] 72 AL OL 50 15 15 2 KE 5 CL L 25 IN D IC MG PH TA AR BL MA ET CY FU 00 10 03 11 60 30 KM 68 PA Ac RO 37 -0 -0 0. AR 54 RS ti SE 80 6- 7- 00 T 23 ON ve AL 21 20 20 0 PH 7 S [...] 69 20 20 0 PH 7 S AL 61 14 15 AR KE X 9 [...] 11 60 30 KM 68 PA Ac ME 18 -0 -2 0. AR 53 RS [...] 6- 8- 00 T 23 ON ve AL 21 20 20 0 PH 7 S [...] 11 60 30 KM 68 PA Ac ME 18 -0 -1 0. AR 53 RS [...] 6- 7- 00 T 23 ON ve AL 21 20 20 0 PH 7 S [...] 11 60 30 KM 68 PA Ac ME 18 -0 -1 0. AR 53 RS [...] 6- 1- 00 T 23 ON ve AL 29 20 20 0 PH 7 S [...] 11 60 30 KM 68 PA Ac ME 18 -0 -0 0. AR 53 RS [...] 6- 6- 00 T 23 ON ve AL 29 20 20 0 PH 7 S [...] 5- 7- 00 T 24 ES ve AL 29 20 20 0 PH 4 S [...] 11 60 30 KM 68 PA Ac ME 18 -0 -0 0. AR 53 RS [...] 5- 1- 00 T 24 ES ve AL 21 20 20 0 PH 4 S [...] TE ST [address] RI PS ME 59 06 07 11 85 25 KM [...] -1 -1 0. AR 48 LL ti ME 80 9- 5- 00 T 97 ve [...] 69 20 20 0 PH 7 S AL 61 14 14 AR KE X 9 [...] 5- 0- 00 T 24 ES ve AL 21 20 20 0 PH 4 S [...] MG 48 47 TA BL ET ME 59 06 06 11 85 25 KM [...] -1 -0 0. AR 48 LL ti ME 80 9 9 T 97 ve OL [...] 69 20 20 0 PH 7 S AL 61 14 14 AR KE X 9 [...] 5- 1- 00 T 24 ES ve AL 21 20 20 0 PH 4 S [...] 69 20 20 0 PH 7 S AL 61 14 14 AR KE X 9 MA LL 70 CY Y -3 # 0 FL 48 EX 47 PE N SY RN ME 00 09 05 6 60 30 KM 68 CASTELAN Ac TO 37 -1 -0 0. AR 48 LL ti ME 80 9- 5- 00 T 97 ve [...] 5- 2- 00 T 24 ES ve AL 21 20 20 0 PH 4 S [...] 5 IN RA CE IC J TA AL PH NO AR PH MA N CY [...] -1 -2 0. AR 48 LL ti ME 80 9- 7- 00 T 97 ve [...] 5 IN RA CE IC J TA AL PH NO AR PH MA N CY [...] 5- 5- 00 T 24 ES ve AL 21 20 20 0 PH 4 S [...] IN RE CE IC MY TA C AL PH NO AR PH MA N CY [...] AM 00 02 02 0 30 10 CASTELAN 57 PA Ac OX 78 -2 -2 [...] 69 20 20 0 PH 2 S AL 61 13 14 AR JE X 9 [...] -1 -2 0. AR 43 RS ti ME 80 9 9 T 88 ON ve [...] 80 5 9 T 93 ON ve AL 21 20 20 0 PH 2 S [...] IN RE CE IC MY TA C AL PH NO AR PH MA N CY [...] -1 -1 0. AR 43 RS ti ME 80 9- 9- 00 T 88 ON [...] 5- 9- 00 T 93 ON ve AL 21 20 20 0 PH 2 S [...] 69 20 20 0 PH 2 S AL 61 13 13 AR JE X 9 [...] -1 -2 0. AR 43 RS ti ME 80 9- 0- 00 T 88 ON [...] 7- 0- 00 T 23 ON ve AL 21 20 20 0 PH 8 S [...] 69 20 20 0 PH 2 S AL 61 13 13 AR JE X 9 [...] 7- 3- 00 T 23 ON ve AL 21 20 20 0 PH 8 S [...] -1 -2 0. AR 43 RS ti ME 80 9- 3- 00 T 88 ON [...] -1 -1 0. AR 43 RS ti ME 80 9- 9- 00 T 88 ON [...] 7- 8- 00 T 23 ON ve AL 21 20 20 0 PH 8 S [...] 7- 6- 00 T 23 ON ve AL 21 20 20 0 PH 8 S [...] 7- 8- 00 T 23 ON ve AL 21 20 20 0 PH 8 S [...] 7- 7- 00 T 23 ON ve AL 21 20 20 0 PH 8 S [...] 80 1- - RT 44 IN ve AL 21 20 20 8 G DE 61 [...] -3 -1 .0 MA 80 YN ti ME 30 1- 1- 00 RT 99 E [...] 1- 4- 00 RT 44 IN ve AL 21 20 20 8 G DE 61 [...] -3 -1 .0 MA 80 YN ti ME 30 1- 4- 00 RT 99 E [...] -3 -1 .0 MA 80 YN ti ME 30 1- 7- 00 RT 99 E [...] 1- 7- 00 RT 44 IN ve AL 21 20 20 8 G DE 61 [...] 8- 9- 00 RT 77 IN ve AL 21 20 20 0 G DE 61 [...] -3 -0 .0 MA 80 YN ti ME 80 1- 5- 00 RT 99 E [...] 8- 2- 00 RT 77 IN ve AL 21 20 20 0 G DE 61 [...] -3 -0 .0 MA 80 YN ti ME 80 1- 8- 00 RT 99 E [...] 8- 4- 00 RT 77 IN ve AL 21 20 20 0 G DE 61 [...] -3 -1 .0 MA 80 YN ti ME 80 1- 0- 00 RT 99 E [...] 8- 7- 00 RT 77 IN ve AL 21 20 20 0 G DE 61 [...] -2 -1 .0 MA 58 YN ti ME 80 5- 3- 00 RT 62 E [...] 8- 0- 00 RT 77 IN ve AL 21 20 20 0 G DE 61 [...] -2 -1 .0 MA 58 YN ti ME 80 5- 6- 00 RT 62 E [...] 8- 2- 00 RT 77 IN ve AL 21 20 20 0 G DE 61 [...] -2 -0 .0 MA 58 YN ti ME 80 5- 4- 00 RT 62 E [...] 2- 7- 00 RT 82 IN ve AL 21 20 20 3 G DE 61 09 09 PH MA 0 AR LE 40 M SH #7 EA MG 17 4 TA BL ET ME 65 01 05 03 12 30 K- 68 DU Ac TF 86 -2 -0 0. MA 67 NN ti OR 20 2- 7- 00 RT 52 IN ve AL 00 20 20 0 5 G N [...] -2 -0 .0 MA 58 YN ti ME 80 5- 7- 00 RT 62 E [...] 2- 3- 00 RT 52 IN ve AL 00 20 20 0 5 G N [...] 2- 3- 00 RT 82 IN ve AL 21 20 20 3 G DE 61 [...] -2 -0 .0 MA 58 YN ti ME 80 5 9 RT 62 E ve [...] 2- 6- 00 RT 52 IN ve AL 00 20 20 0 5 G N 80 09 09 PH MA HC 5 AR LE L M SH 50 #7 EA 0 17 MG 4 TA BL ET FU 00 02 03 01 30 30 K- 68 DU Ac RO 37 -1 -2 .0 MA 68 NN ti SE 80 2- 6- 00 RT 82 IN ve AL 21 20 20 3 G DE 61 [...] -2 -1 .0 MA 58 YN ti ME 80 5- 2- 00 RT 62 E [...] 2- 6- 00 RT 82 IN ve AL 21 20 20 3 G DE 61 [...] -2 -1 .0 MA 58 YN ti ME 80 5- 2- 00 RT 62 E [...] 1- 0- 00 RT 23 E ve AL 21 20 20 0 VA DE 61 [...] 2- 0- 00 RT 52 IN ve AL 00 20 20 0 5 G N [...] SH #7 EA 17 4 ME 00 01 01 00 24 6 EC [...] 10 01 01 90 30 K- 44 AL Ac RI 07 -2 -0 .0 MA [...] 1- 1- 00 RT 23 E ve AL 21 20 20 0 VA DE 61 [...] -2 -0 .0 MA 58 YN ti ME 80 5- 1- 00 RT 62 E [...] -2 -0 .0 MA 58 YN ti ME 80 5- 4- 00 RT 62 E ve OL 03 20 20 2 VA OL 21 08 08 PH UG 0 AR HN TA M W RT #7 RA 17 TE 4 50 MG TA B TR 00 10 12 01 12 30 K- 68 AL Ac AM 37 -2 -0 0. MA [...] 80 1- 4- RT 23 E ve AL 21 20 20 0 VA DE 61 [...] 10 11 00 90 30 K- 44 AL Ac RI 07 -2 -0 .0 MA 53 CK ti CA 11 8- 7- 00 RT 16 ve 01 20 20 6 GR 15 66 08 08 PH EG 0 8 AR OR MG M Y #7 E CA 17 PS 4 UL E 00 10 11 00 12 30 K- 44 AL Ac 40 -2 -0 0. MA 53 [...] -2 -0 .0 MA 58 YN ti ME 80 5- 7- RT 62 E ve [...] 80 1 7- RT 23 E ve AL 21 20 20 0 VA DE 61 08 08 PH UG 0 AR HN 40 M W #7 MG 17 4 TA BL ET TR 00 10 11 00 12 30 K- 68 AL Ac AM 37 -2 -0 0. MA [...] 80 1 9 RT 23 E ve AL 21 20 20 0 VA DE 61 08 08 PH UG 0 AR HN 40 M W #7 MG 17 4 TA BL ET ME 00 08 10 01 60 30 K- 68 PA Ac TO 37 -2 -0 .0 MA 58 YN ti ME 80 5 RT 62 E ve OL [...] 1- 1- 00 RT 23 E ve AL 21 20 20 0 VA DE 61 08 08 PH UG 0 AR HN 40 M W #7 MG 17 4 TA BL ET ME 00 08 09 00 60 30 K- 68 PA Ac TO 37 -2 -1 .0 MA 58 YN ti ME 80 5- 1- 00 RT 62 E [...] 00 60 30 K- 68 BA Ac ME 18 -1 -1 .0 MA 53 IL [...] 1- 4- 00 RT 23 E ve AL 21 20 20 0 VA DE 61 [...] 08 PH CH E 9 AR RI ME M ST OP #7 OP 17 HE [...] 2- 7- 00 RT 98 EY ve AL 21 20 20 2 DE 61 08 [...] IN HE BL C R ET M ME 68 05 06 00 12 4 K- [...] 4- 5- 00 R 51 Av ve AL 96 20 20 TR ai DE 61 [...] 08 AC la E 9 E bl ME PH e OP M IN 50 C [...] 4- 8- 00 R 51 Av ve AL 96 20 20 TR ai DE 61 [...] 08 AC la E 9 E bl ME PH e OP M IN 50 C [...] 8- 7- 00 RT 60 Av ve AL 21 20 20 5 ai DE 61 [...] -1 -1 .0 MA 48 t ti ME 80 8- 7- 00 RT 60 Av [...] 4- 0- 00 R 51 Av ve AL 96 20 20 TR ai DE 61 [...] 08 AC la E 9 E bl ME PH e OP M IN 50 C [...] 3- 0- 00 R 01 Av ve AL 03 20 20 TR ai N 00 [...] -2 -2 .0 MA 43 t ti ME 80 7- 6- 00 RT 16 Av [...] 7- 6- 00 RT 16 Av ve AL 21 20 20 1 ai DE 61 [...] 1- 6- 00 R 69 Av ve AL 02 20 20 0 TR ai N [...] -2 -2 .0 MA 43 t ti ME 80 7- 5- 00 RT 16 Av [...] 20 1- 5- R 69 Av ve AL 02 20 20 0 TR ai N [...] 7- 5- 00 RT 16 Av ve AL 21 20 20 1 ai DE 61 [...] Procedure DOS Code Location Performer Comment MEASUREME [id number] RADHA GARCIA NT 5 W W CARDIAC [facility] PRESS RT HEART PERQ TRANSFUSI [id number] RADHA GARCIA ON 5 W W NONAUTO [facility] RED BLD MEDICAL MEDICAL CELLS PERIPH VN PERQ LEFT 3722 [facility] 5 Y Y [facility] CORONARY 8856 [facility] Y Y [facility] USING TWO CATHETERS INSERT[facility] 3607 [facility] 5 Y [facility] CORONARY ARTERY STENT INSERTION 0046 [facility] 5 Y Y [facility] ST[facility] PERQ 0066 [facility] 5 Y Y [facility] CORONARY ANGIOPLAS TY PTCA INSERTION [address] [place] [id number] [facility] IMPL MEDICAL MEDICAL VASCULAR CE CE ACCESS DEVICE Encounters Encounter Start End Date Code Location Performer Type Date [facility] - 7 7 [facility] - 7 7 [facility] 7 [facility] - 7 [facility] - 7 7 [facility] - [facility] [address] [facility] 7 [facility] 7 7 [facility] - [facility] - [facility] 7 7 [facility] - 7 [facility] - 7 7 [facility] - 7 7 [facility] - 7 7 [facility] - 6 6 [facility] - 6 6 [facility] - 6 6 [facility] - 6 6 [facility] - 6 6 [facility] - 6 6 [facility]PAT[facility] SOCRATES - 6 6 [facility] - 6 6 [facility] - 6 6 [facility] - 6 6 [facility] - 6 6 [facility]PATI[facility] SOCRATES - 6 6 [facility]PATI[facility] HOSPICE 6 6 [facility] 6 6 [facility] 5 5 [facility] 5 5 OF [facility] 5 5 [facility] - 5 5 [facility] 5 5 [facility] 5 5 [facility] - 5 5 [facility] - 5 5 [facility]PAT[facility] 5 [facility] - 5 5 [facility] - 5 5 [facility] - 5 5 [facility] OTHER 5 5 [facility] - 5 5 [facility] 5 5 [facility] - 5 5 [facility] 5 5 [facility] - 5 5 [facility] 5 5 [facility] - 5 5 [facility] SOCRATES - 5 5 [facility] OUTPATIEN INC T HOME [facility], 5 5 HOME OUTPATIEN HEALTH T AGENCY HOME [facility], 5 5 HOME OUTPATIEN HEALTH T AGENCY HOME [facility], 5 5 HOME OUTPATIEN HEALTH T AGENCY [place] [facility], 4 4 HOME OUTPATIEN HEALTH T [facility] SO[facility]ATES - 4 4 [facility]IEN [facility] - 4 4 [facility]PATIEN [facility] [place] - 4 4 REGIONAL OUTPATIEN MEDICAL [facility] SOCRATES [facility] 4 4 [facility]PAT[facility]EN [facility] [place] - 4 4 [facility] OUTPATIEN [facility] [place] - 4 4 REGIONAL OUTPATIEN MEDICAL [facility] - 4 4 [facility]PATI[facility] - 4 4 [facility]PAT[facility] - 4 4 [facility]PAT[facility] - 4 4 [facility]PATI[facility] - 4 4 [facility]PATI[facility] - 3 3 [facility] 3 REGION[facility] OUTPATIEN [facility] - 3 3 REGIONAL OUTPATIEN [facility] - 3 3 [facility] - 2 2 REGIONAL OUTPATIEN MED[facility] - 2 2 REGIONAL OUTPATIEN [facility] - 1 1 REGIONAL OUTPATIEN MED[facility], 1 HOME OUTPATIEN [facility] - 1 1 REGIONAL INPATIENT MED[facility] [place] - 0 0 MEDICAL OUTPATIEN [facility] - 0 0 REGIONAL OUTPATIEN [facility] [place] - 0 0 REG[facility] OUTPATIEN [facility] [place] - 0 0 MEDICAL OUTPAT[facility] [place] - 9 9 MEDICAL OUTPATIEN [facility] [place] - 9 9 REG[facility]AL OUTPATIEN [facility] [place] - 9 9 [facility] OUTPATIEN [facility] [place] - 8 8 [facility] OUTPATIEN [facility] [place] - 8 8 [facility] OUTPATIEN [facility] [place] - 8 8 [facility] OUTPATIEN [facility] [place] - 8 8 [facility]PATI[facility] [place] - 8 8 [facility]PATI[facility] [place] - 8 8 [facility]PATI[facility] 8 8 REG[facility] OUTPATIEN [facility] [place] - 8 8 [facility]PATI[facility] [place] - 8 8 [facility] [place] - 8 8 [facility] [place] - 8 8 [facility] [place] - 8 8 [facility] [place] - 8 8 [facility] - 8 8 [facility] - 8 8 [facility] 8 8 N OUTPATIEN [facility]
--- OUTSIDE RECORDS SUMMARY | 2017-03-11 06:03 | External Medical Summary Rpt | CCD ---
Demographics Preferred Language Angolan Marital Status Unknown Presybeterian Affiliation Unknown Race Unknown Ethnic Group Unknown Author Author , NOREEN SORTO Address Unknown Phone Immunization No patient found.
--- OUTSIDE RECORDS SUMMARY | 2017-03-11 06:03 | External Medical Summary Rpt | CCD ---
Demographics Preferred Language South Korean Marital Status Unknown Amish Affiliation Unknown Race Unknown Ethnic Group Unknown Author Author , NOREEN SORTO Address Unknown Phone Immunization No patient found.
--- OUTSIDE RECORDS SUMMARY | 2017-03-11 06:06 | External Medical Summary Rpt ---
Author Author ROMAINBAIRON Coats, NOREEN [employer] Address Unknown Phone Unavailable Payers Section Payer Plan Name Group ID Member ID Coverage Coverage Start End Date Date E04^MARIAN [id number] No No MEDICAL MEDICAL 3 informati informati ASSISTANC ASSISTANC on in on in E E^PLANID source source data data Results Gas panel in Arterial blood Observa Value Referen Units Interpr Notes Date tion ce etation Range Base -2.4-+2.3 MMOL/L High No Mar 11 excess in informati 2016 4:45 Arterial on in AM blood source data Arteria ACCEPTA No No No No Mar 11 l BLE informa informa informa informa 2017 patency tion in tion in tion in tion in 4:45 AM Wrist source source source source artery data data data data --pre arteria l punctur e Bicarbona 22.0 - MMOL/L High No Mar 11 te 26.0 informati 2016 4:45 [Moles/vo on in AM lume] in source Arterial data blood Oxygen No No No No Mar 11 content informati informati informati informati 2016 4:45 in on in on in on in on in AM Arterial source source source source blood data data data data Carbon 35.0 - MMHG High Mar 11 dioxide 45.0 2016 4:45 [Partial CRITICAL AM pressure] RESULTS in Arterial RESU blood LTS CALLED TO: JORGE ER 03/11/17 0452 Leah,Tessa chucky pH of 7.35 - MMOL/L Low No Mar 11 Arterial 7.45 informati 2016 4:45 blood on in AM source data Oxygen 80 - 100 MMHG Low No Mar 11 [Partial informati 2017 4:45 pressure] on in AM in source Arterial data blood Oxygen 90 - 100 % Normal No Mar 11 saturatio informati 2016 4:45 n.calcula on in AM alicia from source oxygen data partial pressure in Arterial blood SOURCE RIGHT No No No No Mar 11 RADIAL informa informa informa informa 2017 tion in tion in tion in tion in 4:45 AM source source source source data data data data Carbon 23 - 27 MMOL/L High No Mar 11 dioxide, informati 2017 4:45 total on in AM [Moles/vo source lume] in data Arterial blood Urinalysis dipstick W Reflex Microscopic panel in Urine Observa Value Referen Units Interpr Notes Date tion ce etation Range Appeara SL CLEAR No No No Mar 11 nce of CLOUDY informa informa informa 2016 Urine tion in tion in tion in 4:30 AM source source source data data data Bilirub NEGATIV NEG No No No Mar 11 in E informa informa informa 2016 [Presen tion in tion in tion in 4:30 AM ce] in source source source Urine data data data by Test strip Erythro 1+ NEG No Abnorma No Mar 11 cytes informa l informa 2016 [Presen tion in tion in 4:30 AM ce] in source source Urine data data Color YELLOW YELLOW No No No Mar 11 of informa informa informa 2016 Urine tion in tion in tion in 4:30 AM source source source data data data Glucose NEG No No No Mar 11 [Mass/vol informati informati informati 2016 4:30 ume] in on in on in on in AM Urine by source source source Test data data data strip Ketones NEGATIV NEG mg/dL No No Mar 11 E informa informa 2016 [Presen tion in tion in 4:30 AM ce] in source source Urine data data by Automat ed test strip Mucus 3+ NEG No Abnorma No Mar 11 [Presen informa l informa 2016 ce] in tion in tion in 4:30 AM Urine source source sedimen data data t by Light microsc opy Mucus 1+ NONE No No No Mar 11 [Presen informa informa informa 2016 ce] in tion in tion in tion in 4:30 AM Urine source source source sedimen data data data t by Light microsc opy Nitrite POSITIV NEG No Abnorma No Mar 11 E informa l informa 2016 [Presen tion in tion in 4:30 AM ce] in source source Urine data data by Test strip pH of 5.0 - 8.5 No Normal No Mar 11 Urine informati informati 2017 4:30 on in on in AM source source data data Protein NEG mg/dL No No Mar 11 [Mass/vol informati informati 2016 4:30 ume] in on in on in AM Urine by source source Automated data data test strip Erythro 5-10 0 rbc/hpf No No Mar 11 cytes informa informa 2016 [Presen tion in tion in 4:30 AM ce] in source source Urine data data sedimen t by Light microsc opy Specific 1.005 - No Normal No Mar 11 gravity 1.030 informati informati 2016 4:30 of Urine on in on in AM source source data data Urobili 0.2 NEG E.U./dL No No Mar 11 nogen informa informa 2016 [Presen tion in tion in 4:30 AM ce] in source source Urine data data by Test strip Leukocy [50 O wbc/hpf No Mar 11 [place] wbc/hpf informa informa 2016 [#/volu ; 100 tion in tion in 4:30 AM me] in wbc/hpf source source Urine ] data data WBC casts NONE #/lpf No Mar 11 [#/area] informati informati 2016 4:30 in Urine on in on in AM sediment source source by data data Microscop y low power field Urinalysis dipstick W Reflex Microscopic panel in Urine Observa Value Referen Units Interpr Notes Date tion ce etation Range Appeara SL CLEAR No No No Mar 11 nce of CLOUDY informa informa informa 2016 Urine tion in tion in tion in 4:30 AM source source source data data data Bilirub NEGATIV NEG No No No Mar 11 in E informa informa informa 2016 [Presen tion in tion in tion in 4:30 AM ce] in source source source Urine data data data by Test strip Erythro 1+ NEG No Abnorma No Mar 11 cytes informa l informa 2016 [Presen tion in tion in 4:30 AM ce] in source source Urine data data Color YELLOW YELLOW No No No Mar 11 of informa informa informa 2016 Urine tion in tion in tion in 4:30 AM source source source data data data Glucose NEG No No Mar 11 [Mass/vol informati informati informati 2016 4:30 ume] in on in on in on in AM Urine by source source source Test data data data strip Ketones NEGATIV NEG mg/dL No No Mar 11 E informa informa 2016 [Presen tion in tion in 4:30 AM ce] in source source Urine data data by Automat ed test strip Mucus 3+ NEG No Abnorma No Mar 11 [Presen informa l informa 2016 ce] in tion in tion in 4:30 AM Urine source source sedimen data data t by Light microsc opy Nitrite POSITIV NEG No Abnorma No Mar 11 E informa l informa 2016 [Presen tion in tion in 4:30 AM ce] in source source Urine data data by Test strip pH of 5.0 - 8.5 No Normal No Mar 11 Urine informati informati 2016 4:30 on in on in AM source source data data Protein NEG mg/dL No Mar 11 [Mass/vol informati informati 2016 4:30 ume] in on in on in AM Urine by source source Automated data data test strip Specific 1.005 - No Normal No Mar 11 gravity 1.030 informati informati 2016 4:30 of Urine on in on in AM source source data data Urobili 0.2 NEG E.U./dL No Mar 11 nogen informa informa 2016 [Presen tion in tion in 4:30 AM ce] in source source Urine data data by Test strip Natriutietic peptide B [Mass/volume] in Serum or Plasma Observa Value Referen Units Interpr Notes Date tion ce etation Range Natriutie 0 - 100 pg/mL High No Mar 11 tic informati 2016 4:09 peptide B on in AM source [Mass/vol data ume] in Serum or Plasma Cardiac enzymes Observa Value Referen Units Interpr Notes Date tion ce etation Range Creatine 0 - 4.0 U/L Normal No Mar 11 kinase.MB informati 2016 4:09 /Creatine on in AM source kinase.to data weston [Ratio] in Serum or Plasma Creatine 0.0 - 3.6 ng/mL Normal No Mar 11 kinase.MB informati 2016 4:09 on in AM [Mass/vol source ume] in data Serum or Plasma Creatine 39 - 308 U/L Low No Mar 11 kinase informati 2016 4:09 [Enzymati on in AM c source activity/ data volume] in Serum or Plasma Troponin 0.00 - ng/mL Normal No Mar 11 I.cardiac 0.06 informati 2016 4:09 on in AM [Mass/vol source ume] in data Serum or Plasma Comprehensive metabolic 2000 panel in Serum or Plasma Observa Value Referen Units Interpr Notes Date tion ce etation Range Albumin/G 1.1 - 1.8 No Low No Mar 11 lobulin informati informati 2016 4:09 [Mass on in on in AM ratio] in source source Serum or data data Plasma Albumin 3.4 - 5.0 gm/dL Low No Mar 11 [Mass/vol informati 2016 4:09 ume] in on in AM Serum or source Plasma data Alkaline 46 - 116 U/L Normal No Mar 11 phosphata informati 2016 4:09 se on in AM [Enzymati source c data activity/ volume] in Serum or Plasma Bilirubin 0.2 - 1.0 mg/dL Normal No Mar 11 .total informati 2016 4:09 [Mass/vol on in AM ume] in source Serum or data Plasma Urea 7 - 18 mg/dL High Mar 11 nitrogen alert NOTIFICAT 2016 4:09 [Mass/vol ION AM ume] in RESULT Serum or Plasma Calcium 8.5 - mg/dL Normal No Mar 11 [Mass/vol 10.1 informati 2016 4:09 ume] in on in AM Serum or source Plasma data Chloride 98 - 107 mmoL/L Normal No Mar 11 [Moles/vo informati 2016 4:09 lume] in on in AM Serum or source Plasma data Carbon 21.0 - mmoL/L High Mar 11 dioxide, 32.0 NOTIFICAT 2017 4:09 total ION AM [Moles/vo RESULT lume] in Serum or Plasma Creatinin 0.70 - mg/dL High No Mar 11 e 1.30 informati 2016 4:09 [Mass/vol on in AM ume] in source Serum or data Plasma Creatinin 50 - 200 ML/MIN Low No Mar 11 e renal informati 2017 4:09 clearance on in AM source predicted data by Cockcroft -Gault formula Estimated >60 ML/MIN No REFERENCE Mar 11 informati RANGE: 2017 4:09 glomerula on in >60 AM r source ML/MIN/1. filtratio data 73 SQUARE n rate METERSIf (GF this patient is -A merican, then multiply theresult by 1.210. Globulin 1.3 - 3.2 gm/dL High No Mar 11 [Mass/vol informati 2016 4:09 ume] in on in AM Serum source data Glucose 74 - 106 mg/dL High Mar 11 [Mass/vol informati 2016 4:09 ume] in on in AM Serum or source Plasma data Potassium 3.5 - 5.1 mmoL/L Normal Mar 11 informati 2016 4:09 [Moles/vo on in AM lume] in source Serum or data Plasma Sodium 136 - 145 mmoL/L Normal Mar 11 [Moles/vo informati 2016 4:09 lume] in on in AM Serum or source Plasma data Aspartate 15 - 37 U/L Normal Mar 11 informati 2016 4:09 aminotran on in AM sferase source [Enzymati data c activity/ volume] in Serum or Plasma Alanine 12 - 78 U/L Normal Mar 11 aminotran informati 2016 4:09 sferase on in AM [Enzymati source c data activity/ volume] in Serum or Plasma Protein 6.4 - 8.2 gm/dL Normal Mar 11 [Mass/vol informati 2016 4:09 ume] in on in AM Serum or source Plasma data Lactate [Moles/volume] in Blood Observa Value Referen Units Interpr Notes Date tion ce etation Range Lactate 0.4 - 2.0 mmol/L Normal Mar 11 [Moles/vo ati 2016 4:09 lume] in on in AM Blood source data CBC W Auto Differential panel in Blood Observa Value Referen Units Interpr Notes Date tion ce etation Range Basophils 0 - 0.2 K/MM3 Normal No Mar 11 informati 2016 4:09 [#/volume on in AM ] in source Blood by data Automated count Basophils 0.1 - 2.0 % Normal Mar 11 /100 informati 2016 4:09 leukocyte on in AM s in source Blood by data Automated count Eosinophi 0.0 - 0.4 K/mm3 Normal Mar 11 ls informati 2016 4:09 [#/volume on in AM ] in source Blood by data Automated count Eosinophi 0.1 - % Normal Mar 11 ls/100 12.0 informati 2016 4:09 leukocyte on in AM s in source Blood by data Automated count Granulocy 1.3 - 8.0 K/mm3 Normal No Mar 11 [place] informati 2016 4:09 [#/volume on in AM ] in source Blood by data Automated count Granulocy 37.0 - % High No Mar 11 [place]/100 80.0 informati 2016 4:09 leukocyte on in AM s in source Blood by data Automated count Hematocri 42.0 - % Low Mar 11 t [Volume 52.0 informati 2016 4:09 on in AM Fraction] source of Blood data Hemoglobi 14.1 - g/dL Low No Mar 11 n 18.0 informati 2016 4:09 [Mass/vol on in AM ume] in source Blood data Lymphocyt 0.7 - 4.5 K/mm3 Low No Mar 11 es informati 2016 4:09 [#/volume on in AM ] in source Unspecifi data ed specimen by Automated count Lymphocyt 10 - 50 % Low Mar 11 es informati 2016 4:09 [#/volume on in AM ] in source Unspecifi data ed specimen by Automated count Erythrocy 27 - 31.2 pg Low No Mar 11 te mean informati 2017 4:09 corpuscul on in AM ar source hemoglobi data n [Entitic mass] Erythrocy 31.8 - g/dl Low Mar 11 te mean 35.4 informati 2016 4:09 corpuscul on in AM ar source hemoglobi data n concentra tion [Mass/vol ume] by Automated count Erythrocy 82.2 - fl Low Mar 11 te mean 97.8 informati 2016 4:09 corpuscul on in AM ar volume source [Entitic data volume] by Automated count Monocytes 0.1 - 1.0 K/mm3 Normal No Mar 11 informati 2016 4:09 [#/volume on in AM ] in source Blood by data Automated count Monocytes 1.7 - 9.3 % Normal No Mar 11 /100 informati 2016 4:09 leukocyte on in AM s in source Blood by data Automated count Platelet 7.4 - fl Normal No Mar 11 mean 10.4 informati 2016 4:09 volume on in AM [Entitic source volume] data in Blood by Automated count Platelets 142 - 424 K/mm3 Normal No Mar 11 informati 2016 4:09 [#/volume on in AM ] in source Blood data Erythrocy 4.6 - 6.2 M/mm3 Low No Mar 11 [place] informati 2016 4:09 [#/volume on in AM ] in source Amniotic data fluid Erythrocy 11.5 - % Normal No Mar 11 te 17.5 informati 2016 4:09 distribut on in AM ion width source [Entitic data volume] by Automated count Leukocyte 4.8 - K/MM3 Normal No Mar 11 s 10.8 informati 2016 4:09 [#/volume on in AM ] in source Blood data Comprehensive metabolic [...] 116 U/L Normal No Feb 19 phosphata 2016 se on in 12:40 PM [Enzymati source c data activity/ volume] in Serum or Plasma Bilirubin 0.2 - 1.0 mg/dL Normal No Feb 19 .total informati 2016 [Mass/vol on in 12:40 PM ume] in source Serum or data Plasma Urea 7 - 18 mg/dL High Feb 19 nitrogen [email or web address] [Mass/vol ION 12:40 PM ume] in RESULT Serum or Plasma Calcium 8.5 - mg/dL Normal No Feb 19 [Mass/vol 10.1 informati 2016 ume] in on in 12:40 [...] High No Feb 19 e 1.30 informati 2016 [Mass/vol on in 12:40 PM ume] in source Serum or data Plasma Creatinin 50 - 200 ML/MIN Normal No Feb 19 e renal inform2016 clearance on in 12:40 PM source predicted [...] 4.0 U/L Normal No Feb 19 kinase.MB 2016 /Creatine on in 12:40 PM source [...] Troponin 0.00 - ng/mL Normal No Feb 19 I.cardiac 0.06 informati 2017 on in 12:40 PM [Mass/vol source ume] in data Serum or Plasma Lactate [Moles/volume] in Blood Observa Value Referen Units Interpr Notes Date tion ce etation Range Lactate 0.4 - 2.0 mmol/L Normal No Feb 6 [Moles/vo 2016 lume] in on in 12:40 PM Blood source data CBC W Auto Differential panel in Blood Observa Value Referen Units Interpr Notes Date tion ce etation Range Basophils 0 - 0.2 K/MM3 Normal No Feb 6 2016 [#/volume on in 12:40 PM ] in source Blood by data Automated count Basophils 0.1 - 2.0 % Normal No Nov 6 /100 2016 leukocyte on in 12:40 [...] Erythrocy 31.8 - g/dl Low No Feb 19 te mean 35.4 2016 corpuscul on in 12:40 PM ar source hemoglobi data n concentra tion [Mass/vol ume] by Automated count Erythrocy 82.2 - fl Low No Feb 19 te mean 97.8 2016 corpuscul on in 12:40 PM ar volume source [Entitic data volume] by Automated count Monocytes 0.1 - 1.0 K/mm3 Normal No Feb 19 inform2016 [#/volume on in 12:40 PM ] in source Blood by data Automated count Monocytes 1.7 - 9.3 % Normal No Feb 19 /100 2016 leukocyte on in 12:40 PM s in source Blood by data Automated count Platelet 7.4 - fl Normal No Feb 19 mean 10.4 2016 volume on in 12:40 PM [Entitic source volume] data in Blood by Automated count Platelets 142 - 424 K/mm3 Normal No Feb 192016 [#/volume on in 12:40 PM ] in source Blood data Erythrocy 4.6 - 6.2 M/mm3 Low No Feb 19 [place] inform2016 [#/volume on in 12:40 PM ] in source Amniotic data fluid Erythrocy 11.5 - % Normal No Feb 19 te 17.5 2016 distribut on in 12:40 PM ion width source [Entitic data volume] by Automated count Leukocyte 4.8 - K/MM3 Normal No Feb 19 s 10.8 2016 [#/volume on in 12:40 [...] Normal No Jan 27 I.cardiac 0.06 informati 2017 4:50 on in AM [Mass/vol source ume] [...] Creatinin 0.70 - mg/dL High No Jan 27 e 1.30 informati 2017 4:50 [Mass/vol on [...] 145 mmoL/L Normal No Jan 27 [Moles/vo informati 2016 4:50 lume] in on in AM Serum or source Plasma data Aspartate 15 - 37 U/L Normal No Jan 272016 4:50 aminotran on in AM sferase source [...] - 2.0 % Normal No Jan 27 / informati 2016 4:50 leukocyte on in AM [...] 8.0 K/mm3 Normal No Jan 27 [place] informati 2017 4:50 [#/volume on in AM [...] 27 - 31.2 pg Low No Jan 27 te mean informati 2016 4:50 corpuscul on [...] 0.1 - 1.0 K/mm3 Normal No Jan 27 informati 2016 4:50 [...] 4.0 U/L Normal No Jan 05 kinase.MB inform2016 /Creatine on in 11:40 AM source kinase.to data weston [Ratio] in Serum or Plasma Creatine 0.0 - 3.6 ng/mL Normal No Jan 05 kinase.MB informati 2016 on in 11:40 AM [Mass/vol [...] gm/dL Low No Jan 05 [Mass/vol informati 2016 ume] in on in 11:40 AM Serum or source Plasma data Alkaline 46 - 116 U/L Normal No Jan 05 phosphata informati 2016 se on in 11:40 AM [Enzymati source c data activity/ volume] in Serum or Plasma Bilirubin 0.2 - 1.0 mg/dL Normal No Jan 05 .total informati 2016 [Mass/vol on in 11:40 [...] gm/dL Normal No Sep 22 [Mass/vol informati 2017 ume] [...] K/mm3 Normal No Sep 22 ls informati 2017 [#/volume on in 11:40 AM [...] % High No Sep 22 [place]/100 80.0 informati 2016 leukocyte on in 11:40 AM [...] 50 % Low No Sep 22 es informati 2017 [#/volume on in 11:40 AM ] in source Unspecifi data ed specimen by Automated count Erythrocy 27 - 31.2 pg Low No Sep 22 te mean informati 2017 corpuscul on in 11:40 AM ar source hemoglobi data n [Entitic mass] Erythrocy 31.8 - g/dl Low No Sep 22 te mean 35.4 informati 2016 corpuscul on in 11:40 AM ar source hemoglobi data n concentra tion [Mass/vol ume] by Automated count Erythrocy 82.2 - fl Low No Sep 22 te mean 97.8 ati 2016 corpuscul on in 11:40 AM ar volume source [Entitic data volume] by Automated count Monocytes 0.1 - 1.0 K/mm3 Normal No Sep 22 inform2016 [#/volume on in 11:40 AM ] in source Blood by data Automated count Monocytes 1.7 - 9.3 % Normal No Sep 22 /100 2016 leukocyte on in 11:40 AM s in source Blood by data Automated count Platelet 7.4 - fl Normal No Sep 22 mean 10.4 inform2016 volume on in 11:40 AM [Entitic source volume] data in Blood by Automated count Platelets 142 - 424 K/mm3 Normal No Sep 22 2016 [#/volume on in 11:40 AM ] in source Blood data Erythrocy 4.6 - 6.2 M/mm3 Low No Sep 22 [place] 2016 [#/volume on in 11:40 AM ] in source Amniotic data fluid Erythrocy 11.5 - % Normal No Sep 22 te 17.5 ati 2016 distribut on in 11:40 AM ion width source [Entitic data volume] by Automated count Leukocyte 4.8 - K/MM3 Normal No Sep 22 s 10.8 2016 [#/volume on in 11:40 AM ] in source Blood data Differential panel, method unspecified - Observa Value Referen Units Interpr Notes Date tion ce etation Range Eosinophi 0 - 3 % Normal No Sep 22 ls/100 2016 leukocyte on in 11:40 AM s in source Blood by data Manual count LYMPH 4 10 - 50 % Low No Sep 22 2016 tion in 11:40 source AM data Monocytes 2 - 9 % Low No Sep 22 /100 2016 leukocyte on in 11:40 AM s in source Blood by data Automated count Platele NORMAL No No No No Sep 22 ts informa informa informa inform2016 [Presen tion in tion in tion in tion in 11:40 ce] in source source source source AM Blood data data data data by Light microsc opy Neutrophi 42 - 76 % High No Sep 22 ls ati 2016 [#/volume on in 11:40 AM ] [...] No Sep 17 [Mass/vol alert informati 2016 7:56 ume] in on in PM Capillary [...] mg/dL High No Sep 30 nitrogen informati 2017 5:55 [Mass/vol on in [...] High No Sep 30 dioxide, 32.0 informati 2017 5:55 total on in AM [Moles/vo source lume] in data Serum or Plasma Creatinin 0.70 - mg/dL High No Sep 17 e 1.30 informati 2016 5:55 [Mass/vol on [...] - 0.2 K/MM3 Normal No Sep 30 informati 2016 5:55 [#/volume on in AM ] in source Blood by data Automated count Basophils 0.1 - 2.0 % Normal No Sep 30 / informati 2016 5:55 leukocyte on in AM [...] 27 - 31.2 pg Low No Sep 17 te mean informati 2016 5:55 corpuscul on in AM ar source hemoglobi data n [Entitic mass] Erythrocy 31.8 - g/dl Low No Sep 30 te mean 35.4 informati 2017 5:55 corpuscul on in AM ar source hemoglobi data n concentra tion [Mass/vol ume] by Automated count Erythrocy 82.2 - fl Normal No Sep 30 te mean 97.8 informati 2016 5:55 corpuscul on in AM ar volume source [Entitic data volume] by Automated count Monocytes 0.1 - 1.0 K/mm3 Normal No Sep 17 informati 2017 [...] 142 - 424 K/mm3 Normal No Sep 30 informati 2017 [...] count Leukocyte 4.8 - K/MM3 No No Sep 17 s 10.8 informati informati 2016 5:55 [#/volume [...] 0 - 100 pg/mL High No Sep 15 tic inform 2017 peptide B on in 11:40 PM source [Mass/vol data ume] in Serum or Plasma Cardiac enzymes Observa Value Referen Units Interpr Notes Date ti ce etation Range Creatine 0 - 4.0 U/L Normal No Sep 15 kinase.MB informati 2016 /Creatine on in 11:40 [...] Troponin 0.00 - ng/mL Normal No Sep 15 I.cardiac 0.06 informati 2017 on in 11:40 [...] 46 - 116 U/L Normal No Sep 15 phosphata informati 2016 se on in 11:40 PM [Enzymati source c data activity/ volume] in Serum or Plasma Bilirubin 0.2 - 1.0 mg/dL Normal No Sep 15 .total informati 2016 [Mass/vol on in 11:40 PM ume] in source Serum or data Plasma Urea 7 - 18 mg/dL High No Sep 15 nitrogen informati 2016 [Mass/vol on in 11:40 PM ume] in source Serum or data Plasma Calcium 8.5 - mg/dL Normal No Sep 15 [Mass/vol 10.1 informati 2016 ume] in on in 11:40 PM Serum or source Plasma data Chloride 98 - 107 mmoL/L Normal No Sep 15 [Moles/vo informati 2016 lume] in on in 11:40 PM Serum or source Plasma data Carbon 21.0 - mmoL/L High No Sep 28 dioxide, 32.0 informati 2016 total on in 11:40 PM [Moles/vo source lume] in data Serum or Plasma Creatinin 0.70 - mg/dL High No Sep 15 e 1.30 informati 2017 [Mass/vol on in 11:40 PM ume] in source Serum or data Plasma Creatinin 50 - 200 ML/MIN Normal No Sep 15 e renal informati 2017 clearance on in [...] 3.5 - 5.1 mmoL/L Normal No Sep 28 inform2016 [Moles/vo on in 11:40 PM lume] in source Serum or data Plasma Sodium 136 - 145 mmoL/L Normal No Sep 15 [Moles/vo informati 2016 lume] in on in 11:40 PM Serum or source Plasma data Aspartate 15 - 37 U/L Low No Sep 282016 aminotran on in 11:40 PM sferase source [Enzymati data c activity/ volume] in Serum or Plasma Alanine 12 - 78 U/L Normal No Sep 28 aminotran 2016 sferase on in 11:40 PM [Enzymati source c data activity/ volume] in Serum or Plasma Protein 6.4 - 8.2 gm/dL Normal No Sep 15 [Mass/vol informati 2016 ume] [...] 0.1 - 2.0 % Normal No Sep 282016 leukocyte on in 11:40 PM s in [...] 8.0 K/mm3 Normal No Sep 28 [place] inform2016 [#/volume on in 11:40 PM ] in source Blood by data Automated count Granulocy 37.0 - % High No Sep 28 [place]/100 80.0 2016 leukocyte on in 11:40 PM s in source Blood by data Automated count Hematocri 42.0 - % Low No Sep 15 t [Volume 52.0 2016 on in 11:40 PM Fraction] source of Blood data Hemoglobi 14.1 - g/dL Low No Sep 15 n 18.0 inform2016 [Mass/vol on in 11:40 PM ume] in [...] pg Low No Sep 15 te mean 2016 corpuscul on in 11:40 PM ar source hemoglobi data n [Entitic mass] Erythrocy 31.8 - g/dl Low No Sep 28 te mean 35.4 2016 corpuscul on in 11:40 PM ar source hemoglobi data n concentra tion [Mass/vol ume] by Automated count Erythrocy 82.2 - fl Normal No Sep 15 te mean 97.8 2016 corpuscul on in 11:40 PM ar volume source [Entitic data volume] by Automated count Monocytes 0.1 - 1.0 K/mm3 Normal No Sep 15 2016 [#/volume on in 11:40 PM ] in source Blood by data Automated count Monocytes 1.7 - 9.3 % Normal No Sep 15 /100 2016 leukocyte on in 11:40 PM s in source Blood by data Automated count Platelet 7.4 - fl Normal No Sep 15 mean 10.4 2016 volume on in 11:40 PM [Entitic source [...] % Normal No Sep 28 te 17.5 2016 distribut on in 11:40 PM ion width source [Entitic data volume] by Automated count Leukocyte 4.8 - K/MM3 Normal No Sep 15 s 10.8 informati 2016 [#/volume on in [...] mg/dL High No September 05 e 1.30 inform2016 4:00 [Mass/vol on in PM ume] in [...] 78 U/L Normal No September 05 aminotran 2016 4:00 sferase on in PM [Enzymati [...] - g/dL Low September 05 n 18.0 inform2016 4:00 [Mass/vol on in PM ume] in [...] [Entitic mass] Erythrocy 31.8 - g/dl Low September 05 te mean 35.4 informati 2016 4:00 corpuscul on in PM ar source hemoglobi data n concentra tion [Mass/vol ume] by Automated count Erythrocy 82.2 - fl Normal September 05 te mean 97.8 informati 2016 4:00 corpuscul on in PM ar volume source [Entitic data volume] by Automated count Monocytes 0.1 - 1.0 K/mm3 Normal No September 052016 4:00 [#/volume on in PM ] in source Blood by data Automated count Monocytes 1.7 - 9.3 % Normal No September 05 / informati 2016 4:00 leukocyte on in PM s in source Blood by data Automated count Platelet 7.4 - fl Low September 05 mean 10.4 informati 2017 4:00 volume on in PM [Entitic source [...] Normal No August 30 dioxide, 32.0 informati 2016 8:55 [...] - 5.1 mmoL/L Normal No August 30 inform2016 8:55 [Moles/vo on in AM lume] in [...] - 2.0 % Normal No August 30 / informati [...] K/MM3 Normal No August 30 s 10.8 ati 2016 8:55 [#/volume on in AM ] in source Blood data XR Chest 1 View Observa Value Referen Units Interpr Notes Date tion ce etation Range Report EXAM:Xr No No No Oct 13 ay informa informa informa Final 2014 Chest 1 tion in tion in tion in \. 9:39 PM view. source source source br\\.br INDICAT data data data \Signed ION:Shirley : [facility] , [facility] [employer]\. TECHNIQ br\Sign [...] 139 136 - mmol/L No No Nov 19 Level 148 informa informa 2013 tion in tion in 2:22 PM source source data data [place] 4.7 3.8 - mmol/L No No Nov 19 um 5.2 informa informa 2013 Level tion in tion in 2:22 PM source source data data Chlorid 107 98 - mmol/L No No Nov 19 e 108 informa informa 2013 tion in [...] 34 7 - 22 mg/dL High No Nov 6 informa 2013 tion in 2:22 PM source data Creatin 1.8 0.8 - mg/dL High No Aug 6 ine 1.5 informa 2013 tion in 2:22 PM source data Bili 0.29 0.50 - mg/dL Low No Aug 6 Total 1.50 informa 2013 tion in 2:22 PM source data Total 6.9 6.4 - g/dL No No Aug 6 Protein 8.2 informa inform2013 tion in tion in 2:22 PM source source data data Alk 142 50 - unit/L High No Nov 6 Phos 136 inform2013 tion in 2:22 [...] No No Aug 6 11.00 cL informa inform2013 tion in tion in 12:51 source source PM data data RBC 4.21 4.60 - mcL Low No Aug 6 6.20 inform2013 tion in 12:51 source PM data Hgb [...] - g/dL Low No Aug 6 37.0 inform2013 tion in 12:51 source PM data RDW [...] 2014 tion in 12:51 source PM data [place] 8 2 - 9 % No No [...]
--- OUTSIDE RECORDS SUMMARY | 2017-03-11 06:06 | External Medical Summary Rpt ---
Author Author ROMAINBAIRON Coats, [employer] Address Unknown Phone Unavailable Payers Section Payer Plan Name Group ID Member ID Coverage Coverage Start End Date Date [id number]^[id number] No No MEDICAL MEDICAL 3 informati informati [...] INDICAT data data data \Signed ION:Shirley : [facility] , of [facility] [employer]\. TECHNIQ br\Sign [...] 2014 tion in 12:51 source PM data [place] 8 2 - 9 % No No [...]
[2017-03-11] MEDS ORDERED: ROBAFEN100 MG/5 M PO (07:14)
--- NOTE | 2017-03-11 09:53 | HISTORY AND PHYSICAL REPORT ---
Demographics: Admit date: 03/11/17 Chief complaint: hypoxia,uti PRIMARY DIAGNOSIS: ACUTE RESP FAILURE; EX COPD; UTI Allergies: Coded Allergies: sulfamethoxazole (From BACTRIM) (01/05/17) trimethoprim (From BACTRIM) (01/05/17) History of present illness: History of present illness: 66 yr old male presents to ed with c/o of sob and weakness. Pt states he has not fet well for 3-4 weeks but yesterday he became sob and was having difficulty breathing even with O2. Pt states he ahs been noticing burning where bay is. pt has dressing ben lower ext from stasis ulcers(chronic). Hx of CHF and chronic renal failure.Pt admitted for low o2 sat and uti. Past medical history: Family HX Diabetes Yes CAD Yes Hypertension Yes Hyperlipidemia Yes Cancer Yes TB No Immunization HX DT/Tetanus Unknown Flu 2014-FSN Pneumonia Refuses TB Test in last year Yes Result Negative General CAD? No Angina: No [place]: Yes Hypertension? Yes Hyperlipidemia? Yes CHF? Yes DVT? No PE? No COPD? Yes Asthma? No Anemia? Yes GERD? Yes Gastric ulcers? No GI Bleed? No Hernia? No Thyroid Problems? No Hypothyroidism? No CVA? No Seizures? No Diabetes? 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 Yes UTI? Yes Stones? No BPH? No GB Disease: No Nephritic Syndrome? No Asplenia? No Hepatitis? No Sickle Cell Disease? No Arthritis? Yes Migraines? Yes Cataracts? No Glaucoma? No MRSA? No HIV? No TB? No Anxiety? No Depression? No Cancer? No More? Yes Additional hx: RHEUMATOID ARTHRITIS OSTEOARTHRITIS Past Surgical HX Previous Surgery?Y STENTS X2 DEFIBRILLATOR PORT PLACED Current home meds: Reported Medications ROPINIROLE HCL (Ropinirole) 2 MG PO QHS Aspirin (Aspirin EC 81MG Tab) 81 MG PO DAILY Carvedilol (Carvedilol 25MG) 25 MG PO BID Ferrous Sulfate (Ferrous Sulfate 325MG) 325 MG PO QPM HYDROCODONE/ACETAMINOPHEN ([place] 10-325 Tablet) 1 TAB PO Q6PRN PRN PAIN Docusate Sodium 250 MG PO DAILY MULTIVITAMIN (Multivitamins) 1 TABS PO DAILY Acetaminophen (Pain Relief) 1,000 MG PO Q6HP PRN PAIN/FEVER Bisacodyl (Bisacodyl Supp) 10 MG UT DAILYP PRN CONSTIPATION Lactulose (Lactulose) 30 ML PO DAILYP PRN CONSTIPATION Eplerenone (Inspra) 12.5 MG PO DAILY GUAIFENESIN/DEXTROMETHORPHAN (Robafen-Dm Syrup) 5 ML PO QHS TORSEMIDE (Torsemide 20MG) 3 TABS PO BID FLUTICASONE PROPIONATE (Fluticasone 50MCG Nasal [place]) 2 SPRAY NA DAILY Polyethylene Glycol 3350 (Miralax) 17 GM PO DAILY Guaifenesin (Robafen) 5 ML PO DAILY Pregabalin (Lyrica) 50 MG PO TID Atorvastatin Calcium (Atorvastatin) 80 MG PO QHS Loratadine (Loratadine 10MG Tablet) 10 MG PO DAILY Ranitidine Hcl (Zantac) 150 MG PO BID Senna Pod (Senna Laxative) 2 TAB PO BID CHOLECALCIFEROL (VITAMIN D3) (Vitamin D3) 2,000 IUNITS PO DAILY Lorazepam (Ativan) 0.5 MG PO QHS Insulin Detemir (Levemir 10ML VIAL) 42 UNITS SC QHS Insulin Aspart, Recombinant (Novolog Flexpen) 20 UNITS SC BID Silver Sulfadiazine (Silvadene) 1 TP DAILY Insulin Aspart (Novolog) (Insulin Aspart Flexpen 3ML) 30 UNITS SC 1100 #9 Atorvastatin Calcium (Atorvastatin) 40 MG PO DAILY Carvedilol (Coreg 25MG) 25 MG PO BID FLUTICASONE PROPIONATE (Fluticasone 50MCG Nasal [place]) 2 SPRAY NA DAILY Polyethylene Glycol 3350 (Miralax) 17 GM PO DAILY Senna Pod (Senna Laxative) 1 TAB PO D TORSEMIDE (Torsemide 20MG) 60 MG PO RO ASCORBIC ACID (Vitamin C) 500 MG PO DAILY Social Hx: Smoking HX Tobacco No Packs/day N/A Are you/the child exposed to second-hand smoke: Yes Alcohol Alcohol: No Hx of Drug Use Drug Use? No Review of systems: Constitutional see HPI, malaise, weakness. Respiratory see HPI, shortness of breath, SOB at rest. Cardiovascular No no symptoms reported Gastrointestinal/Abdominal No no symptoms reported Genitourinary see HPI, pain, penis pain. Musculoskeletal see HPI, back pain, joint pain. Skin see HPI. Neurological Yes: weakness. Exam: Lab data for last 24 hours: Laboratory Tests 03/11/17 0629: POC Glucose 158 H 03/11/17 0445: ABG pH 7.33 L, ABG pCO2 (Temp Corrct 70.0 H, ABG pO2 (Temp Correct 76.4 L, ABG HCO3 35.7 H, ABG Total CO2 37.8 H, ABG O2 Sat (Calculated) 93.8, ABG Base Excess 9.6 H, Woo Test ACCEPTABLE, Blood Gas Comments RIGHT RADIAL 03/11/17 0430: Urine Color YELLOW, Urine Appearance SL CLOUDY, Urine pH 5.5, Ur Specific [place] 1.015, Urine Protein NEGATIVE, Urine Ketones NEGATIVE, Urine Blood 1+ H , Urine Nitrate POSITIVE H, Urine Bilirubin NEGATIVE, Urine Urobilinogen 0.2, Ur Leukocyte Esterase 3+ H, Urine RBC 5-10, Urine WBC 50-100, WBC Casts OCC, Urine Mucus 1+, Urine Glucose NEGATIVE 03/11/17 0409: Lactic Acid 0.6 03/11/17 0409: B-Natriuretic Peptide 635 H 03/11/17 0409: Sodium 145, Potassium 4.6, Chloride 102, Carbon Dioxide 40 H, BUN 112 *H, Creatinine 1.9 H, Estimated Creat Clear 44 L, Estimated GFR (MDRD) 36, Glucose 142 H, Calcium 9.1, Total Bilirubin 0.4, AST 18, ALT 20, Alkaline Phosphatase 84, Creatine Kinase 37 L, CK-MB (CK-2) Rel Index 3.8, CK and CKMB Interp 1.4, Troponin I 0.03, Total Protein 7.9, Albumin 2.7 L, Globulin 5.2 H, Albumin/ Globulin Ratio 0.5 L, WBC 9.4, RBC 4.25 L, Hgb 10.1 L, Hct 34.1 L, MCV 80.2 L, RDW 15.7, Plt Count 214, MPV 8.3, Gran % 84.7 H, Gran # 7.9, Lymphocytes % 6.3 L, Monocytes % 7.8, Eosinophils % 0.9, Basophils % 0.3, Lymphocytes # 0.6 L, Monocytes # 0.7, Eosinophils # 0.1, Basophils # 0.0, PUBS MCHC 29.6 L, MCH 23.7 L Microbiology 03/11 430 URINE CC: Urine Culture - RECD 03/11 409 BLOOD: Anaerobic Blood Culture - RECD 03/11 409 BLOOD: Aerobic Blood Culture - RECD 03/11 409 BLOOD: Anaerobic Blood Culture - RECD 03/11 409 BLOOD: Aerobic Blood Culture - RECD Admission vital signs: 1ST Vital Signs Result Date Time Pulse Ox 95 03/11 404 B/P 143/67 03/11 404 Temp 99.8 03/11 404 Pulse 95 03/11 404 Resp 32 03/11 404 O2 Flow Rate 4 03/11 457 O2 Delivery OXYGEN 03/11 620 Exam General appearance: normal appearance, alert, awake, no acute distress Eyes: normal exam ENT: normal exam Neck: normal inspection, full range of motion Cardiovascular: normal exam, regular rate & rhythm, normal peripheral pulses Respiratory: normal exam, clear to auscultation, good air movement, no respiratory distress ABD: normal exam, normal bowel sounds, soft Genitourinary: catheter in place Extremities: normal exam, full range of motion, moves all Musculoskeletal: normal exam Skin: dressing to ben lower ext Neuro: normal exam, alert, intact, oriented Additional information: pt drifts off to sleep while talking Plan: Problem List 1. Chronic pain 2. Renal insufficiency 3. Chronic renal failure 4. History of CHF (congestive heart failure) 5. Respiratory failure with hypoxia and hypercapnia 6. Chronic obstructive pulmonary disease with (acute) exacerbation 7. Urinary tract infection Plan: jose eduardo will round later today, wait urine cx results at 0953
--- NOTE | 2017-03-11 10:32 | PHARMACY CLINIC NOTE ---
Patient Demographics Patient Demographics Admission date: 03/11/17 Date: 03/11/17 Time: 1032 Allergies Coded Allergies: sulfamethoxazole (From BACTRIM) (01/05/17) trimethoprim (From BACTRIM) (01/05/17) HEIGHT- FT: 5 IN: 3.00 K.029 VTE General Information Labs: Laboratory Tests 03/11 0409 Hematology Hgb (14.1 - 18.0 g/dL) 10.1 L Hct (42.0 - 52.0 %) 34.1 L Plt Count (142 - 424 K/mm3) 214 Disclaimer The following section includes nursing documentation that has been pulled in for pharmacy review. Patient's VTE score: 6 Patient's VTE Risk: MOD RISK Clinical trial participant? No VTE prophylaxis NQF [id number] VTE prophylaxis ordered? Yes Type of prophylaxis/treatment: RADHA at 1032
[2017-03-11] MEDS ORDERED: NOVOLOG FLEX100 U/ML SC (12:09)
--- NOTE | 2017-03-11 12:22 | RADIOLOGY REPORT PS360 ---
CHEST-PORTABLE Ordering Physician: Jay Black MD Patient Age: 66 years: Male HISTORY: C/O HYPOXIAshort of breath decreased O2 sats TECHNIQUE: AP portable upright chest COMPARISON :02/19/2017 PCXR most helpful.. 01/27/2017 CXR. Also utilized FINDINGS Less optimal inspiration today slightly crowds markings bilaterally. Slight blunting right CP angle on today's study could reflect small effusion but unimpressive. There is mild vascular engorgement but no overt CHF.. Overall nothing definitely acute. Pacemaker overlies right chest . Again we see the mild accentuation of markings at at the right suprahilar region but this is similar to previous studies dating back to August2016. Port-A-Cath enters from left subclavian with tip at the brachiocephalic vein and junction with SVC. Pacemaker enters from right subclavian with tip at the far inferior aspect RV.. The AP projection with suboptimal inspiration accentuates superior mediastinum to this appearance is stable since at least April study from this year. Arthritic changes both shoulders. IMPRESSION: No significant change since 02/19/2017. No focal pneumonia. No overt CHF. Mild vascular engorgement. Slight blunting right CP angle appear stable. Cannot exclude a small right pleural effusion. Less optimal inspiration slightly crowds markings but nothing definitely acute. Cardiomegaly. Pacemaker. Port-A-Cath.
[2017-03-12 04:00] VITALS: BP 175/83
[2017-03-12 06:23] LABS: HEMOGLOBIN 9.7 g/dL (14.1-18.0); LYMPH # 0.2 K/mm3 (0.7-4.5); LYMPH % 5.7 % (10-50)
[2017-03-12 08:00] VITALS: BP 137/73
[2017-03-12 09:01] LABS: NEUTROPHILS 93 % (42-76)
--- NOTE | 2017-03-12 10:42 | ACUTE CARE PROGRESS NOTE (QUA) ---
Progress Notes Subjective Date 03/12/17 Time 1251 Note doing better Patient/family reports: feeling better Nursing reports: no complaints Objective Findings Last VS-Temp:97.8 B/P:168/77 Pulse:78 Resp:20 SaO2:93 OXYGEN Last weight lbs:215 oz:5 K.664 Method:Bed Scales Exam General appearance: alert, awake Eyes: PERRLA ENT: dry mucous membranes Neck: no JVD Cardiovascular: regular rate & rhythm Respiratory: no respiratory distress, diminished breath sounds ABD: soft Genitourinary: catheter in place Extremities: chronic changes Musculoskeletal: equal muscle strength Skin: dry Neuro: no deficit Reviewed: allergies, medications, vital signs, lab results Assessment/Plan Problem List 1. Chronic pain 2. Renal insufficiency 3. Chronic renal failure 4. History of CHF (congestive heart failure) 5. Respiratory failure with hypoxia and hypercapnia 6. Chronic obstructive pulmonary disease with (acute) exacerbation 7. Urinary tract infection Patient condition Stable Plan: continue current care This inpt stay is expected to cross 2 MNs from start of care Yes Comments: will inc act and await urine culture result at 0729
[2017-03-12 16:00] VITALS: BP 176/85
[2017-03-12 20:15] VITALS: BP 164/90
[2017-03-13 05:34] VITALS: BP 168/77
[2017-03-13 06:38] LABS: HEMOGLOBIN 10.5 g/dL (14.1-18.0); LYMPH # 0.2 K/mm3 (0.7-4.5)
[2017-03-13 07:56] LABS: NEUTROPHILS 90 % (42-76)
[2017-03-13 08:18] VITALS: BP 168/77
[2017-03-13 08:30] VITALS: BP 179/98
[2017-03-13] MEDS ORDERED: INVANZ 1 GM1 GM IV (08:56)
--- NOTE | 2017-03-13 08:59 | DISCHARGE SUMMARY STANDARD ---
Demographics Admit date: 03/11/17 Discharge date: 03/13/17 History of present illness History of present illness 66 yr old male presents to ed with c/o of sob and weakness. Pt states he has not fet well for 3-4 weeks but yesterday he became sob and was having difficulty breathing even with O2. Pt states he ahs been noticing burning where bay is. pt has dressing ben lower ext from stasis ulcers(chronic). Hx of CHF and chronic renal failure.Pt admitted for low o2 sat and uti. Hospital Course Hospital Course: Urinary tract infection -Urine culture positive for E. coli sensitive to Invanz first dose of Invanz given while in hospital. We'll continue 7 more days of Invanz and then reculture urine 3 days after last dose of antibiotic. We'll monitor a BMP every 3 days while on antibiotic. Chronic obstructive pulmonary disease-IV steroids patient's breathing has improved. We'll discharge patient back to [facility] today. Discharge diagnoses Problem List 1. Chronic pain 2. Renal insufficiency 3. Chronic renal failure 4. History of CHF (congestive heart failure) 5. Respiratory failure with hypoxia and hypercapnia 6. Chronic obstructive pulmonary disease with (acute) exacerbation 7. Urinary tract infection Medications Medications: Discharge meds are as noted. Comment: Dr. Flower rounded earlier Follow up Follow up in office in: 7 DAYS with: Jeremy Castorena APRN at 0859
--- NOTE | 2017-03-13 09:03 | ACUTE CARE PROGRESS NOTE (QUA) ---
Progress Notes Subjective Date 03/13/17 Time 0900 Patient/family reports: feeling better, no complaints Nursing reports: alert, no complaints Objective Findings Laboratory Tests 03/13/17 0633: POC Glucose 291 H 03/13/17 0620: Sodium 143, Potassium 5.0, Chloride 104, Carbon Dioxide 38 H, BUN 88 H, Creatinine 1.6 H, Estimated Creat Clear 62, Estimated GFR (MDRD) 43, Glucose 300 H, Calcium 8.7, Total Bilirubin 0.2, AST 15, ALT 21, Alkaline Phosphatase 79, Total Protein 7.5, Albumin 2.4 L, Globulin 5.1 H, Albumin/Globulin Ratio 0.5 L, WBC 5.8, RBC 4.50 L, Hgb 10.5 L, Hct 36.2 L, MCV 80.5 L, RDW 15.7, Plt Count 218, MPV 7.9, Gran % 90.0 H, Gran # 5.2, Total Counted 100, Lymphocytes % 4.0 L, Monocytes % 5.6, Eosinophils % 0.4, Basophils % 0.0 L, Neutrophils 90 H, Lymphocytes (Manual) 5 L, Lymphocytes # 0.2 L, Monocytes ( Manual) 5, Monocytes # 0.3, Eosinophils # 0.0, Basophils # 0.0, Platelet Estimate NORMAL, Hypochromasia 2+, PUBS MCHC 29.1 L, MCH 23.4 L 03/13/17 0109: POC Glucose 287 H 03/12/17 2001: POC Glucose 369 *H 03/12/17 1642: POC Glucose 381 *H 03/12/17 1141: POC Glucose 445 *H Vital Signs Date Time Temp Pulse Resp B/P Pulse O2 O2 Flow FiO2 Ox Delivery Rate 03/13 0830 98.1 85 22 179/98 91 OXYGEN 03/13 0818 97.8 78 20 168/77 93 2.5 03/13 0816 20 03/13 0655 2.5 03/13 0629 2.5 03/13 0551 2.5 03/13 0551 93 OXYGEN 2.5 03/13 0534 2.5 03/13 0534 97.8 78 20 168/77 93 OXYGEN 2.5 03/13 0520 2.5 03/13 0300 2.5 03/13 0238 2.5 03/13 0119 20 03/13 0115 2.5 03/12 2350 2.5 03/12 2300 2.5 03/12 2206 2.5 03/12 2110 2.5 03/12 2015 2.5 03/12 2015 98.0 87 20 164/90 94 OXYGEN 2.5 03/12 2000 98.0 87 20 164/90 94 2.5 03/12 1959 2.5 03/12 1959 92 OXYGEN 2.5 03/12 1850 2.5 03/12 1700 2.5 03/12 1600 24 03/12 1600 97.4 81 20 176/85 96 OXYGEN 03/12 1500 2.5 03/12 1317 96 OXYGEN 2.5 03/12 1300 2.5 03/12 1100 3.5 03/12 1036 95 OXYGEN 3.5 03/12 0956 24 Current Medications Ertapenem 1 GM ONCE ONE IV (UNV) Sodium Chloride 50 ML Hydrocodone Bitart/Acetaminophen 0 .STK-MED ONE PO (DC) Pregabalin 0 .STK-MED ONE PO (DC) Hydrocodone Bitart/Acetaminophen 0 .STK-MED ONE PO (DC) Insulin Human [rDNA origin] 0 .STK-MED ONE SC (DC) Pregabalin 0 .STK-MED ONE PO (DC) Insulin Human [rDNA origin] 0 .STK-MED ONE SC (DC) Hydrocodone Bitart/Acetaminophen 0 .STK-MED ONE PO (DC) Pregabalin 0 .STK-MED ONE PO (DC) Insulin Human [rDNA origin] 0 .STK-MED ONE SC (DC) Hydrocodone Bitart/Acetaminophen 0 .STK-MED ONE PO (DC) Ceftriaxone Sodium 1 GM Q24H IV (DC) Sodium Chloride 50 ML Methylprednisolone Sodium Succinate 80 MG Q8 IV Aspirin 81 MG DAILY PO Carvedilol 25 MG BID PO Pregabalin 50 MG TID PO Diagnostic Test (Pha) 1 EACH W/MEALS&HS FS Insulin Human [rDNA origin] SEE ADMIN CRITERIA FOR MEDIUM INTENSITY W/MEALS&HS SC Albuterol/Ipratropium 3 ML QIDRT INH Hydrocodone Bitart/Acetaminophen 1 TAB Q6HP PRN PO Influenza Virus Vaccine Quadrival 0.5 ML PRN PRN IM Nicotine 21 MG DAILYP PRN TD Sodium Chloride 1,000 ML .Q20H IV Sodium Chloride 10 ML PRN PRN IV Last VS-Temp:98.1 B/P:179/98 Pulse:85 Resp:22 SaO2:91 OXYGEN Last weight lbs:215 oz:5 K.664 Method:Bed Scales Exam General appearance: normal appearance, alert, awake, no acute distress Eyes: normal exam ENT: normal exam Neck: normal inspection, no carotid bruit, full range of motion Cardiovascular: normal exam, regular rate & rhythm Respiratory: normal exam, aerating well, clear to auscultation, chest non- tender, good air movement, normal breath sounds, no respiratory distress ABD: normal exam, soft Genitourinary: catheter in place Extremities: normal exam, moves all, no peripheral edema Musculoskeletal: normal exam Skin: normal exam, several open areas noted to bilateral lower extremity Neuro: normal exam, alert, intact, oriented Reviewed: allergies, medications, vital signs, lab results, consult note Assessment/Plan Problem List 1. Chronic pain 2. Renal insufficiency 3. Chronic renal failure 4. History of CHF (congestive heart failure) 5. Respiratory failure with hypoxia and hypercapnia Qualifiers: Chronicity: acute on chronic Qualified Code: J96.21 - Acute and chronic respiratory failure with hypoxia 6. Chronic obstructive pulmonary disease with (acute) exacerbation 7. Urinary tract infection Qualifiers: Urinary tract infection type: site unspecified Hematuria presence: with hematuria Qualified Code: N39.0 - Urinary tract infection, site not specified Patient condition Stable Plan: initiate discharge plan This inpt stay is expected to cross 2 MNs from start of care Yes Comments: Gay rounded earlier Antibiotic Stewardship (2) Current Culture Results Microbiology 03/11 043 URINE CC: Urine Culture - RES ESCHERICHIA COLI 03/11 409 BLOOD: Anaerobic Blood Culture - RES 03/11 409 BLOOD: Aerobic Blood Culture - RES at 0902
[2017-03-13 12:05] VITALS: BP 179/98
[2017-03-14] MEDS ORDERED: CLARITIN 10MG T10 MG PO (18:43)
== END 2017-03-13 12:12 | DRG 690 ==
LOC: ER 04:03 → 2ND 05:26 → ER 05:26 → 2ND 06:10
PROVIDERS: Emergency Medicine
DX: N39.0 Urinary tract infection, site not specified (principal); E11.22 Type 2 diabetes mellitus with diabetic chronic kidney disease; N18.4 Chronic kidney disease, stage 4 (severe); I12.9 Hypertensive chronic kidney disease with stage 1 through stage 4 chronic kidney disease, or unspecified chronic kidney disease; M06.9 Rheumatoid arthritis, unspecified; Z95.810 Presence of automatic (implantable) cardiac defibrillator; Z95.5 Presence of coronary angioplasty implant and graft; Z79.4 Long term (current) use of insulin; J44.9 Chronic obstructive pulmonary disease, unspecified; Z99.81 Dependence on supplemental oxygen
CPT/HCPCS: J1335

== ENCOUNTER 2017-03-14 14:23 | Inpatient (IN) | payer MEDICAID, MEDICARE ==
[~2017-03-14] VITALS: Ht 175.3 cm; Wt 97.2 kg
[~2017-03-14 14:23] MED LIST changes: +ASCORBIC ACID500 M2 PO; +COREG25 MG PO; +FLUTICASONE 50M16 GM; +INSULIN AS100 UNITS/ SC; +INVANZ 1 GM1 GM IV; +MIRALAX17 GM/PACK PO; +ROBAFEN100 MG/5 M PO; +SILVADENE1% TP
[2017-03-14 14:36] VITALS: BP 146/72
--- NOTE | 2017-03-14 14:41 | Emergency Room Report ---
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 Clinical Suspician of Infection? Mental Status: Sepsis Risk: Have you (or family members/close friends) recently traveled outside the [place]? If Yes, where/when: Have you had exposure to infectious disease within the past month? TB? Other? Specify: Comment The patient is brought in by ambulance from [facility]. He was discharged from this hospital yesterday after a stay for several days for acute respiratory failure. He was also treated for urinary tract infection. Today his pulse ox was down in the 60s. He has altered mental status. Brother states that yesterday his legs were not swollen at all, skin was wrinkled, and today they are ballooned out swollen with blisters. He was placed on nonrebreather oxygen and given 80 mg of Lasix by EMS during transport. The patient has been treated with CPAP in the past at the long-term, but apparently refused to use it after a couple of days. He is on oxygen at the long-term. ALLERGIES Coded Allergies: sulfamethoxazole (From BACTRIM) (03/14/17) trimethoprim (From BACTRIM) (03/14/17) Home Medications Reported Medications Docusate Sodium 250 MG PO DAILY CHOLECALCIFEROL (VITAMIN D3) (Vitamin D3) 2,000 UNITS PO DAILY Lorazepam (Ativan) 0.5 MG PO QHS TORSEMIDE (Torsemide 20MG) 60 MG PO BID Polyethylene Glycol 3350 (Miralax) 17 GM PO DAILY ROPINIROLE HCL (Ropinirole) 2 MG PO QHS Aspirin (Aspirin EC 81MG Tab) 81 MG PO DAILY Carvedilol (Carvedilol 25MG) 25 MG PO BID Ferrous Sulfate (Ferrous Sulfate 325MG) 325 MG PO QPM HYDROCODONE/ACETAMINOPHEN ([place] 10-325 Tablet) 1 TAB PO Q6PRN PRN PAIN MULTIVITAMIN (Multivitamins) 1 TABS PO DAILY Acetaminophen (Pain Relief) 1,000 MG PO Q6HP PRN PAIN/FEVER Bisacodyl (Bisacodyl Supp) 10 MG NM DAILYP PRN CONSTIPATION Lactulose (Lactulose) 30 ML PO DAILYP PRN CONSTIPATION Eplerenone (Inspra) 12.5 MG PO DAILY GUAIFENESIN/DEXTROMETHORPHAN (Robafen-Dm Syrup) 5 ML PO QHS FLUTICASONE PROPIONATE (Fluticasone 50MCG Nasal [place]) 2 SPRAY NA DAILY Loratadine (Claritin 10MG) 10 MG PO DAILY Pregabalin (Lyrica) 50 MG PO TID Atorvastatin Calcium (Atorvastatin) 80 MG PO QHS Ranitidine Hcl (Zantac) 150 MG PO BID Senna Pod (Senna Laxative) 2 TAB PO BID ASCORBIC ACID (Vitamin C) 500 MG PO DAILY History Medical History General CAD? No Angina: No [place]: Yes Hypertension? Yes Hyperlipidemia? Yes CHF? Yes DVT? No PE? No COPD? Yes Asthma? No Anemia? Yes GERD? Yes Gastric ulcers? No GI Bleed? No Hernia? No Thyroid Problems? No Hypothyroidism? No CVA? No Seizures? No Diabetes? 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 Yes End Stage Renal Disease? No UTI? Yes Stones? No BPH? No GB Disease: No Nephritic Syndrome? No Asplenia? No Hepatitis? No Sickle Cell Disease? No Arthritis? Yes Migraines? Yes Cataracts? No Glaucoma? No MRSA? No HIV? No TB? No Anxiety? No Depression? No Cancer? No More? Yes Additional hx: RHEUMATOID ARTHRITIS OSTEOARTHRITIS Immunization Hx DT/Tetanus Unknown Flu [id number] Pneumonia Received In Past Surgical Hx Previous Surgery?Y STENTS X2 DEFIBRILLATOR PORT PLACED Family History Family Hx Diabetes Yes CAD Yes Hypertension Yes Hyperlipidemia Yes Cancer Yes TB No Social History Smoking Hx Packs/day N/A Alcohol Alcohol: No Review of Systems All Other Systems Reviewed and Negative (unobtainable, AMS) Respiratory shortness of breath Cardiovascular edema (per family report) Comment denies pain Physical Exam Vital Signs Vital Signs Date Time Temp Pulse Resp B/P Pulse O2 O2 Flow FiO2 Ox Delivery Rate 03/14 1841 15 03/14 1807 63 03/14 1807 97.0 63 20 151/62 03/14 1807 93 OXYGEN 03/14 1707 97.0 63 20 151/62 93 OXYGEN 03/14 1634 98.3 63 18 137/69 97 03/14 1624 63 18 137/69 97 03/14 1436 98.3 101 28 146/72 94 15 General Appearance moderate distress, drowsy, appears chronically ill Eye Exam - bilateral eye normal exam, bilateral eye PERRL, bilateral eye EOMI Ear, Nose, Throat hearing grossly normal, normal ENT inspection Neck normal inspection, non-tender, supple, full range of motion Respiratory Status Yes: respiratory distress, trachea midline, chest symmetrical. Lung Sounds bilateral: decreased breath sounds. Cardiovascular normal exam, regular rate/rhythm, no peripheral edema, no gallop, no JVD, no murmur, no rub, normal peripheral pulses Gastrointestinal normal bowel sounds, normal exam, non tender, soft, no organomegaly Extremities 3+ edema of the legs with venous stasis changes and stasis dermatitis Neurologic drowsy Mental status altered mental status Skin intact, normal color, warm/dry Medical Decision Making LABS/Meds/Orders Pt receiving controlled substance in ED? No Results/Orders Laboratory Tests 03/14/17 1747: POC Glucose 69 L 03/14/17 1455: Lactic Acid 1.1 03/14/17 1455: B-Natriuretic Peptide 1570 H 03/14/17 1455: Sodium 145, Potassium 4.1, Chloride 104, Carbon Dioxide 39 H, BUN 88 H, Creatinine 1.5 H, Estimated Creat Clear 81, Estimated GFR (MDRD) 47, Glucose 127 H, Calcium 8.4 L, Total Bilirubin 0.2, AST 20, ALT 24, Alkaline Phosphatase 72, Creatine Kinase 51, CK-MB (CK-2) Rel Index 4.7 H, CK and CKMB Interp 2.4, Troponin I 0.05, Total Protein 7.3, Albumin 2.5 L, Globulin 4.8 H, Albumin/Globulin Ratio 0.5 L, WBC 9.6, RBC 4.36 L, Hgb 10.4 L, Hct 35.2 L, MCV 80.6 L, RDW 15.7, Plt Count 230, MPV 8.0, Gran % 87.5 H, Gran # 8.4 H, Total Counted 100, Lymphocytes % 4.6 L, Monocytes % 7.6, Eosinophils % 0.2, Basophils % 0.0 L, Neutrophils 88 H, Band Neutrophils 2, Lymphocytes (Manual) 5 L, Lymphocytes # 0.5 L, Monocytes (Manual) 5, Monocytes # 0.7, Eosinophils # 0.0, Basophils # 0.0, Platelet Estimate NORMAL, PUBS MCHC 29.5 L, MCH 23.8 L 03/14/17 1437: ABG pH 7.23 *L, ABG pCO2 (Temp Corrct 97.2 H, ABG pO2 (Temp Correct 239.5 H, ABG HCO3 39.6 H, ABG Total CO2 42.6 H, ABG O2 Sat (Calculated) 99, ABG Base Excess 12.0 H, Woo Test NON APPLICABLE, Blood Gas Comments LEFT RADIAL Current Medication Orders Sig/Malorie Start time Last Medication Dose Route Stop Time Status Admin Aspirin 81 MG DAILY 03/15 900 AC PO Furosemide 40 MG DAILY 03/15 900 AC IV Carvedilol 25 MG BID 03/14 2100 AC PO Lorazepam 0.5 MG QHS 03/14 2100 AC PO Pregabalin 50 MG TID 03/14 2100 AC PO Ropinirole HCl 2 MG QHS 03/14 2100 AC PO Albuterol/Ipratropium 3 ML QIDRT 03/14 2000 AC INH Methylprednisolone 0 .STK-MED ONE 03/14 175 DC Sodium Succinate .ROUTE Diagnostic Test (Pha) 1 EACH W/MEALS&HS 03/14 1700 AC 03/14 FS 05/13 1659 1748 Insulin Human [rDNA See Dose W/MEALS&HS 03/14 1700 AC origin] Insts (1) SC Nitroglycerin 1 IN Q6 03/14 1700 AC 03/14 TP 1752 Albuterol/Ipratropium 3 ML Q1HP PRN 03/14 1645 AC INH Ertapenem 1 GM Q24H 03/14 1630 AC 03/14 Sodium Chloride 50 ML IV 1745 Hydrocodone Bitart/ 1 TAB Q6HP PRN 03/14 1630 AC Acetaminophen PO Sodium Chloride 10 ML PRN PRN 03/14 1630 AC IV Methylprednisolone 0 .STK-MED ONE 03/14 162 DC Sodium Succinate .ROUTE Nitroglycerin 0 .STK-MED ONE 03/14 162 DC .ROUTE Methylprednisolone 80 MG Q8 03/14 1616 AC 03/14 Sodium Succinate IV 1754 Influenza Virus 0.5 ML PRN PRN 03/14 161 AC Vaccine Quadrival IM Nicotine 21 MG DAILYP PRN 03/14 1615 AC TD Nitroglycerin 1 IN ONCE ONE 03/14 1600 DC 03/14 TP 03/14 1601 1638 Methylprednisolone 125 MG ONCE ONE 03/14 1500 DC 03/14 Sodium Succinate IV 03/14 1501 1638 Albuterol/Ipratropium 0 .STK-MED ONE 03/14 1459 DC INH Albuterol/Ipratropium 3 ML ONCE ONE 03/14 1430 DC 03/14 INH 03/14 1431 1430 Sodium Chloride 10 ML PRN PRN 03/14 1430 AC IV Dose Instructions: (1)Insulin Human [rDNA origin]: SEE ADMIN CRITERIA FOR MEDIUM INTENSITY Orders Procedure Date/time Status CHEST-PORTABLE 03/15 07 Active CBC WITH AUTO DIFF 03/15 0600 Active BASIC METABOLIC PROFILE 03/15 0600 Active DIET-2000 CALORIE ADA 03/14 D Active ARTERIAL BLOOD GAS REQUEST 03/14 2000 Active FINGERSTICK BLOOD SUGAR 03/14 1747 Complete ADMITTED PT IS ACTUALLY IN BED 03/14 1710 Active Decision to admit 03/14 1636 Active RT BIPAP, Initial Setup/Change 03/14 1526 Active RT Aerosol Treatment, Provide 03/14 1522 Active DIFFERENTIAL-WBC 03/14 1455 Complete BRAIN NATRIURETIC PEPTIDE 03/14 1451 Complete RESP THERAPY REQUEST (GENERAL) 03/14 1447 Active CULTURE, BLOOD 03/14 1442 Active LACTIC ACID 03/14 1442 Complete ELECTROCARDIOGRAM REQUEST 03/14 1426 Active RT REQUEST DUONEB 03/14 1426 Active ARTERIAL BLOOD GAS REQUEST 03/14 1426 Active IV SALINE LOCK 03/14 1426 Active URINALYSIS/COMPLETE 03/14 1426 Active CBC WITH AUTO DIFF 03/14 1426 Complete CARDIAC ENZYMES 03/14 1426 Complete CHEM 12 PROFILE 03/14 1426 Complete ADMIT PATIENT 03/14 UNK Active 12 LEAD EKG-BESSON (INITIAL) 03/14 UNK Active RESP THERAPY REQUEST (GENERAL) 03/14 UNK Active PULSE OXIMETRY REQUEST 03/14 UNK Active OXYGEN REQUEST 03/14 UNK Active RT REQUEST DUONEB 03/14 UNK Active VITAL SIGNS 03/14 UNK Active VALVE TESTER 03/14 UNK Active POM NURSE RADHA HOSE ORDER 03/14 UNK Active IV SALINE LOCK 03/14 UNK Active RECORD I & O 03/14 UNK Active CODE STATUS 03/14 UNK Active PATIENT ACTIVITY ORDER 03/14 UNK Active CM/EKG CM/EKG Comments EKG interpreted by Jay Black MD: Rhythm: sinus Rate: 62 [place]: normal Ectopy: none Conduction: normal ST Segment Changes: none T Wave Changes: none Q Waves: none No evidence of acute ischemia or injury Baseline artifact and wander present, but I consider the EKG adequate for accurate interpretation. No change from prior XRAY/CT/US XRAY/CT/US XRAY chest Comment X-ray interpreted by radiologist: Congestive heart failure with bilateral effusions Progress - I have discussed the case with Jeremy Castorena for Dr. Flower who agrees to admit the patient to the hospital. We discussed the patient's clinical information, including history, exam, laboratory and radiology results and ED course. Per hospital procedure, I will write temporary bridge inpatient orders on the patient. Specific orders requested by the admitting physician: Repeat ABGs at 8 PM, continue BiPAP, Lasix 40 mg IV per day, continue Nitropaste Departure Departure Disposition Still a Patient Clinical Impression Primary Impression: Pulmonary edema Qualifiers: Chronicity: acute Qualified Code: J81.0 - Acute pulmonary edema Secondary Impressions: Acute respiratory failure with hypoxia and hypercapnia Condition STABLE Referrals Mundo VALDES,Ronny Miller (Family) ED Critical Care Critical Care Yes Time spent 30-74 min Vital system(s) involved: Respiratory Failure I was present at bedside for Coordinating pt's care, Interpreting EKGs/Strips , During my initial exam, Reviewing lab results, Reviewing old records, Discussing pt condition, For re-examinations, Examining radiographs at 1949
--- OUTSIDE RECORDS SUMMARY | 2017-03-14 14:47 | External Medical Summary Rpt | Continuity of Care Document ---
Author Author Organization Address Unknown Phone Unavailable Care Team Providers Care Flight Test Engineer Name Role Phone , Unavailable Unavailable EMS Current Medications Section EMS Allergies and Adverse Reactions EMS Past Medical History Medications Administered Section EMS Procedures Performed EMS Vital Signs EMS Patient Care Report Narrative EC-4 responded to [facility], room 201, for a pt. being discharged back to [facility]. Upon arrival on scene, the pt. a 66 YOM, presented semi- Fowlers in bed, awake and alert, and in care of the nursing staff. The pt. was receiving supplemental O2 via cannula at 2 LPM and had an [address] saline lock in place in his left AC. The pt also had an in- dwelling Sullivan catheter. His lungs were auscultated revealing mild wheezes due to COPD. The pt. had contractures to both lower extremities as well as cellulitis. Both upper extremities had contractures due to rheumatoid arthritis. His pupils were equal and reactive. The pt. was bed confined due to the contractures and chronic weakness from his COPD and CHF. The pt. was transferred to the stretcher with a draw sheet x 3 due to his weakened condition and placed in semi- Fowlers position, with the O2 continued. He was to keep the saline lock for continued IV antiobiotics while in the ECF. The pt. was secured to the stretcher with all straps. Baseline Vs were obtained at time of transport. His BP was 134/104, HR- 77 and regular and RR- 20 and non- labored, and SPO2 at 92%. The pt. was transported non- emergently and monitored enroute. The pt. was returning to the ECF after a 3 day admission for COPD exacerbation and a severe UTI. He had been treated with IV vancomycin and was to continue receiving it at the ECF. Pt. history included COPD, CHF, GA, and rheumatoid arthritis. He was allergic to Bactrim. Medications included ASA and Coreg. Pt. condition remained unchanged during transport. Upon arrival at destination, the pt. was taken to room 129. He was transferred to the bed with a draw sheet and connected to his room concentrator and placed in semi- Fowlers position. Pt. care was transferred to Lauren Warner RN. EC4 returned to service. MEDICAL NECESSITY: PT UNABLE TO AMBULATE OR TRANSFER DUE TO SEVERE DEBILITATION AND CONTRACTURES AND UNABLE TO SELF ADMINISTER SUPPLEMENTAL O2. END 03/13/17. BEHZAD HART, EMTP [id number]
--- OUTSIDE RECORDS SUMMARY | 2017-03-14 14:47 | External Medical Summary Rpt | Continuity of Care Document ---
Author Author Organization Address Unknown Phone Unavailable Care Team Providers Care Smt Machine Operator Name Role Phone , Unavailable Unavailable EMS Current Medications Section EMS Allergies and Adverse Reactions EMS Past Medical History Medications Administered Section EMS Procedures Performed EMS Vital Signs EMS Patient Care Report Narrative EC-4 responded to [facility], room 201, for a pt. being discharged back to [facility]. Upon arrival on scene, the pt. a [...] the ECF. Pt. history included COPD, CHF, SD, and rheumatoid arthritis. He was allergic to [...] SUPPLEMENTAL O2. END 03/13/17. BEHZAD HART, EMTP [id number]
--- NOTE | 2017-03-14 15:07 | RADIOLOGY REPORT PS360 ---
CHEST-PORTABLE HISTORY: CHF ORDERING PHYSICIAN: Jay Black MD PATIENT AGE: 66 years COMPARISON: 03/11/2017 FINDINGS: There are low lung volumes. There is cardiomegaly with pulmonary venous congestion consistent with CHF with small bilateral pleural effusions. RV pacemaker is present. Left subclavian Mediport catheter is noted with the tip in region of the superior vena cava. IMPRESSION: CHF with bilateral effusions.
[2017-03-14 15:09] LABS: HEMOGLOBIN 10.4 g/dL (14.1-18.0); LYMPH # 0.5 K/mm3 (0.7-4.5); LYMPH % 4.6 % (10-50)
[2017-03-14 15:29] LABS: ALLEN'S TEST NON APPLICABLE; ARTERIAL PO2 239.5 MMHG (80-100); ARTERIAL TCO2 42.6 MMOL/L (23-27)
--- OUTSIDE RECORDS SUMMARY | 2017-03-14 15:31 | External Medical Summary Rpt | CCD ---
Author Author , NOREEN Organization NOREEN Address Unknown Phone [email or web address] Care Team Providers Care Medical Technologist Clinical Name Role Phone [facility], [facility] Unavailable Unavailable [facility] Unavailable Unavailable [facility], [facility] Unavailable Unavailable RESPONSE, [facility] RHODA BACA MD, PSC, Unavailable Unavailable RHODA BACA MD, PSC [facility] Unavailable [place], [facility] [place] KENTON ARMIJO, Unavailable Unavailable [facility] MD, Unavailable Unavailable [facility], ROSY POWELL MD, [facility] MASSIMO MARISCAL Unavailable Unavailable M, MASSIMO MARISCAL, Unavailable Unavailable M.Marko.P.S.CIrena, LES MARCH M.D.P.S.CIrena [facility], Unavailable Unavailable [facility] BHSIMIN ROBERTINDER S, Unavailable Unavailable BHAGRATH, KSENIA S [facility] Unavailable Unavailable ON RED, [facility] ON [facility] Un[facility] Unavailable [facility], [facility] Unavailable Unavailable SERVICE, [facility] Unavailable Unavailable SERVICE, [facility] Unavailable Unavailable CONSULTANTS O, [facility], Unavailable Unavailable [facility], Unavailable Unavailable [facility] Unavailable Unavailable [facility] ALESSANDRA-ERIC, Unavailable Unavailable JERMAINEYANG ARMENDARIZ, JERMAINEMARCELLO PUTNAM KOKO, Unavailable Unavailable INDY KOK[facility] Un[facility], [facility] KEY, [place]ES[place], Unavailable Unavailable KEY, MALESHEA [facility][1] Unavailable Unavailable [facility], [facility][1] [facility] Unavailable Unavailable PSC, [facility], Unavailable Unavailable [facility] Unavailable Unavailable INC, [facility] FALLIS DIANA, FALLIS Unavailable Unavailable DIANA [facility] Unavailable Unavailable #471, [facility]471 MORRO ZHENG, Unavailable Unavailable MORRO ZHENG GUNYEN ISABEL K, Unavailable Unavailable GUNFATMATAMALLA, ISABEL K [facility] Unavailable Unavailable PHARMACY, [facility] Unavailable Unavailable [facility] Unavailable Unavailable INC, [facility] Unavailable [facility]available HOSPITAL, [facility] Unavailable Unavailable HOSPITAL P, [facility] HOSPITAL P [facility]available Unavailable MEDICAL CE, [facility] Unavailable Unavailable [facility]ICAL CENT, [facility] Unavailable Unavailable INC, [facility], Unavailable Unavailable [facility] Unavailable Unavailable PLL[facility], [facility], Unavailable Unavailable HOSPICE [facility] Unavailable Unavailable PHYSICIANS, [facility] RIAN, VANDANA Cox, RIAN, Unavailable Unavailable VANDANA [facility] Unavailable Unavailable [place], [facility] [place] [facility], Unavailable Unavailable [id number], [facility]available Unavailable [id number] Unavailable Unavailable PHARMACY, [facility] Un[facility] Un[facility], [facility] & Unavailable Unavailable VASCULAR PH, [facility] Unavailable Unavailable [facility]ING [facility], [facility] # Unavailable Unavailable [id number], [facility] # [id number] [facility] [id number] # Unavailable Unavailable [id number], [facility] [id number] # [id number] [facility] Unavailable Unavailable [facility]ANCED [facility], [facility] Un[facility], [facility] Unavailable Unavailable COMMUNITY ACT, [facility] LUIS E HAM, LUIS E HAM Unavailable Unavailable [facility] Unavailable Unavailable ASSOCIAT, [facility] Unavailable Unavailable SURGERY, [facility] Unavailable Unavailable MEDICAL, [facility] Unavailable Unavailable LLC, [facility] Unavailable Unavailable PHARMACY, [facility], Unavailable Unavailable [facility]available Un[facility]ACY, [facility] Unavailable Unavailable AMBULANCE SE, [facility], Unavailable Unavailable PLLC, [facility], [facility] KRAFT ANTONINA, KRAFT Unavailable Unavailable ANTONINA [facility], Unavailable Unavailable [facility] PAWSAT, PAWSAT Unavailable Unavailable PAWSAT MAR, PAWSAT Unavailable Unavailable MAR HURLEYRICHARD FERRERA W, Unavailable Unavailable RICHARD HURLEY W PEASI, PEASI Unavailable Unavailable [facility] Unavailable Unavailable PRACTICE CL, [facility] Unavailable Unavailable AMBULAN, [facility] Unavailable Unavailable [facility], [facility], Unavailable Unavailable [facility] Unavailable Unavailable SERVICE, [facility]AL[facility] PROVIDER Unavailable Unavailable SERVICES IN, [facility] IN [facility] Unavailable Unavailable [facility]ALTH[facility], [facility] Unavailable Unavailable [id number] # [id number], [facility] [id number] # 0229 [facility] Unavailable Unavailable HEALTH CARE, [facility], Unavailable Unavailable [facility] KETTY BROTHERS, ZEV, Unavailable Unavailable KETTY Carcamo [facility] Unavailable Unavailable EQUIPME, [facility], Unavailable Unavailable [facility] ZE BLACKWELL, Unavailable Unavailable ZE BLACKWELL [facility] Unavailable Unavailable HOSPITALS, [facility], Unavailable Unavailable [facility], Unavailable Unavailable [facility] # Unavailable Unavailable [id number], [facility] # [id number] [facility] Unavailable Unavailable AGENCY, [facility] ZE MAN, Unavailable Unavailable ZE MAN WILLIAM Unavailable Unavailable ALEXANDREA Clemente WILLIAM H ZAMBOS, PHILIP N, Unavailable Unavailable MICHAEL DE LA ROSA Purpose Continuity of Care Document - 10-31-2006 through 2016 Problems Code Diagnosis DOS Provider Status I129 HYPERTENSIV 02-19-2017 CORAL Roberts CKD PHYSICIANS, W/STAGE 1-4 [facility] CKD OR UNS CKD M069 RHEUMATOID 02-19-2017 [facility]IS [facility] UNSPECIFIED SERVICE N189 CHRONIC 02-19-2017 [facility] KIDNEY PHYSICIANS, DISEASE [facility] UNSPECIFIED R0602 SHORTNESS 02-19-2017 CORAL OF BREATH PHYSICIANS, [facility] R0689 OTHER 02-19-2017 [facility] ABNORMALITI [place] ES OF AMBULANCE BREATHING SE R600 LOCALIZED 02-19-2017 [facility] [place] [facility] SE Z7409 OTHER 02-19-2017 [facility] REDUCED [facility] MOBILITY SERVICE I10 ESSENTIAL 02-15-2017 [facility] HYPERTENSIO ASSOCIATES N N183 CHRONIC 02-15-2017 [facility] DISEASE ASSOCIATES STAGE 3 MODERATE N179 ACUTE 02-12-2017 [facility] FAILURE [facility]OCI[facility] UNSPECIFIED [id number] ULCERATIVE 01-29-2017 [place] [facility] LEFT LOWER CENTER EYELID D649 ANEMIA 01-27-2017 [facility] UNSPECIFIED PHYSICIANS, PLLC E119 TYPE 2 01-27-2017 [facility] MELLITUS INC WITHOUT COMPLICATIO NS I110 HYPERTENSIV 01-27-2017 [facility] E HEART PHYSICIANS, DISEASE PLLC WITH HEART FAILURE I5043 ACUTE ON 01-27-2017 [facility] CHRONIC PHYSICIANS, COMB PLLC SYSTOLIC & DIASTOLIC CHF J449 CHRONIC 01-27-2017 [facility] OBSTRUCTIVE [facility] PULMONARY INC DISEASE UNS K219 GASTRO-ESOP 01-27-2017 [facility] H REFLUX [facility] DISEASE INC WITHOUT ESOPHAGITIS R079 CHEST PAIN 01-27-2017 [facility]PECIFIED [facility] IMAGING ASS Z794 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 INSPECTOR OPTICAL GLASS 01-27-2017 [facility] CURRENT USE [facility]OS[facility] OF INSULIN INC Z7982 CORRECTION 01-27-2017 [facility] CURRENT USE [facility] OF ASPIRIN INC I2510 [place] 01-22-2017 CORONARY [facility] ARTERY W/O HOSPITALS ANGINA PECTORIS I252 OLD 01-22-2017 MYOCARDIAL [facility] INFARCTION HOSPITALS I255 ISCHEMIC 01-22-2017 CARDIOMYOPA [facility] THY HOSPITALS I472 VENTRICULAR 01-22-2017 [facility] TACHYCARDIA HOSPITALS I5022 CHRONIC 01-22-2017 SYSTOLIC [facility] CONGESTIVE HOSPITALS HEART FAILURE I509 HEART 01-22-2017 [facility] FAILURE HEALTH UNSPECIFIED ASSOCIATES R0609 OTHER FORMS 01-22-2017 [facility] DYSPNE[facility]ARE HOSPITALS D88463 PRESENCE 01-22-2017 [facility] IMPLANTABLE HOSPITALS CARDIAC DEFIBRILLAT OR R918 OTHER 01-19-2017 SY[facility] NONSPECIFIC [facility] ABNORMAL FINDING OF LUNG FIELD E785 HYPERLIPIDE 01-18-2017 [facility] UNSPECIFIED ASSOCIATES G894 CHRONIC 01-14-2017 [facility] N19 UNSPECIFIED 01-14-2017 [facility] FAIL[facility] C[facility] Z950 PRESENCE OF 01-14-2017 [facility] Z955 PRESENCE OF 01-11-2017 [facility] ANGIOPLASTY HOSPITALS IMPLANT & GRAFT M6281 MUSCLE 01-05-2017 [facility] WEAKNESS AMBULANCE GENERALIZED SERVICE V22468 OTHER LONG 01-05-2017 [facility] H[facility]PITAL P DRUG THERAPY Z882 ALLERGY 01-05-2017 [facility] STATUS TO MEM HOS[facility] SULFONAMIDE INC S STATUS R609 EDEMA 01-04-2017 [facility]PECIF[facility] HOSPITALS E139 OTH SPEC 01-01-2017 [facility] DIABETES PHYSICIANS MELLITUS GROUP W/O COMPLICATIO NS E875 HYPERKALEMI 01-01-2017 [facility] A PHYSICIANS GROUP I5020 UNSPECIFIED 01-01-2017 [facility] SYSTOLIC PHYSICIANS CONGESTIVE GROUP HEART FAILURE Z4502 ENCOUNTER 12-21-2016 [facility] AUTO HOSPITALS IMPLANTABL CARD DEFIB B35.6 Tinea 12-20-2016 cruris 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 E11.40 Type 2 12-20-2016 diabetes mellitus with diabetic neuropathy, unspecified G25.81 Restless 12-20-2016 legs syndrome I16.1 Hypertensiv 12-20-2016 e emergency 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 I50.9 Heart 12-20-2016 failure, unspecified J96.02 Acute 12-20-2016 respiratory failure with hypercapnia K21.9 Gastro-esop 12-20-2016 hageal reflux disease without esophagitis K59.00 Constipatio 12-20-2016 n, unspecified M06.9 Rheumatoid 12-20-2016 arthritis, unspecified N18.3 Chronic 12-20-2016 kidney disease, stage 3 (moderate) R00.1 Bradycardia 12-20-2016 , unspecified R74.8 Abnormal 12-20-2016 levels of other serum enzymes 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 Z95.0 Presence of 12-20-2016 cardiac pacemaker N390 URINARY 12-16-2016 [facility] SITE NOT SPECIFIED R001 BRADYCARDIA 12-14-2016 [facility]PEC[facility] R69 ILLNESS 12-14-2016 [place] UNSPECIFIED Monstrous COMMUNITY ACT B356 TINEA 12-13-2016 [facility] E1122 TYPE 2 12-13-2016 [facility] MELLITUS HOSPITALS W/DIAB CHRON KIDNEY DZ E1140 TYPE 2 DM 12-13-2016 WITH [facility]ALTHCARE DIABETIC HOSPITALS NEUROPATHY UNSPECIFIED G2581 RESTLESS 12-13-2016 [facility] I161 HYPERTENSIV 12-13-2016 [facility] E EMERGENCY [facility]ARE HOSPITALS J9602 ACUTE 12-13-2016 RESPIRATORY HEALTHCARE FAILURE HOSPITALS WITH HYPERCAPNIA R0600 DYSPNEA 12-13-2016 [place] [facility] UNSPECIFIED SERV FOUNDATION D631 ANEMIA IN 12-04-2016 [facility] KIDNEY [facility] DISEASE N250 RENAL 12-04-2016 [facility] OSTEODYSTRO SERV PHY FOUNDATION J129 VIRAL 11-28-2016 SY[facility] PNEUMONIA [facility] UNSPECIFIED R339 RETENTION 11-21-2016 [facility] OF URINE [facility] UNSPECIFIED HOSPITAL P R338 OTHER 11-14-2016 QUALITY RETENTION PROVIDER OF URINE SERVICES IN O36594 PRESSURE 10-14-2016 [facility]AL[facility] ULCER OF PROVIDER RIGHT HEEL SERVICES IN UNSTAGEABLE W98056 NON-PRSS 10-14-2016 [facility] CHR ULCR PROVIDER UNS PART SERVICES IN UNS LOW LEG UNS SEV J189 PNEUMONIA 09-29-2016 [facility] UNSPECIFIED PHYSICIANS ORGANISM GROUP N289 DISORDER OF 09-29-2016 [facility] KIDNEY AND PHYSICIANS URETER GROUP UNSPECIFIED R05 COUGH 09-28-2016 [facility] AM[facility]ANCE SE E11.621 Type 2 09-13-2016 diabetes mellitus with foot ulcer E78.5 Hyperlipide 09-13-2016 nicholas, unspecified I13.0 Hypertensiv 09-13-2016 e heart and [...] 09-13-2016 automatic (implantabl e) cardiac defibrillat or I5021 ACUTE 09-08-2016 [facility] SYSTOLIC SERV CONGESTIVE FOUNDATION HEART FAILURE R279 UNSPECIFIED 09-08-2016 [facility] LACK OF MEDICAL COORDINATIO RESPONSE N I130 HTN HEART & 09-07-2016 [facility] CKD W/HF & SERV CKD STAGE FOUNDATION 1-4 OR UNS CKD I5023 ACUTE CHRON 09-07-2016 [facility] SYSTOLIC SERV HEART FOUNDATION FAILURE I517 CARDIOMEGAL 09-07-2016 [facility] Y [facility] J9601 ACUTE 09-07-2016 [facility]PIRATORY SERV FAILURE FOUNDATION WITH HYPOXIA R778 OTHER 09-07-2016 [facility] SPECIFIED SERV ABNORMALITI FOUNDATION ES OF PLASMA PROTEINS I50.20 Unspecified 09-06-2016 systolic (congestive ) heart failure I214 NON-ST 09-06-2016 [facility] INFARCTION I4581 LONG QT 09-06-2016 [place] [facility] SYNDROME SERV FOUNDATION J9691 RESPIRATORY 09-06-2016 [facility] FAILURE SERV UNSPECIFIED FOUNDATION WITH HYPOXIA R9431 ABNORMAL 09-06-2016 [place] [facility] ELECTROCARD SERV IOGRAM FOUNDATION E1165 TYPE 2 09-05-2016 [facility] P WITH HYPERGLYCEM IA Y23421 PAIN IN 09-05-2016 [facility] RIGHT LEG [facility]ICAL IMAGING ASS D52488 PAIN IN 09-05-2016 [facility] LEFT LEG MEDICAL IMAGING ASS M7989 OTHER 09-05-2016 [facility] SPECIFIED MEDICAL SOFT TISSUE IMAGING ASS DISORDERS R269 UNSPECIFIED 09-05-2016 [facility] ABNORMALITI AMBULANCE ES OF GAIT SE AND MOBILITY R531 WEAKNESS 09-05-2016 [facility] AMBULANCE SE Z8679 PERSONAL 09-05-2016 [facility] HISTORY OTH PHYSICIANS, DISEASES PLLC CIRCULATORY SYSTEM Z7401 BED 08-30-2016 [facility] AMBULANCE STATUS SERVICE E109 TYPE 1 08-14-2016 [facility] DIABETES HEALTH MELLITUS ASSOCIATES WITHOUT COMPLICATIO NS L0390 CELLULITIS 08-14-2016 [facility] UNSPECIFIED HEALTH ASSOCIATES M869 OSTEOMYELIT 08-11-2016 [facility] IS MOBILE XRAY UNSPECIFIED SERVICE R0989 OTH SPEC SX 07-20-2016 [facility]AL[facility] & SIGNS MOBILE XRAY INVLV THE SERVICE CIRC & RESP SYS E1151 TYPE 2 DM 05-11-2016 [facility] W/DIAB PERIPH 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 L95117 PRESSURE 05-11-2016 [facility] ULCER OF RIGHT ANKLE STAGE 2 J50485 PRESSURE 05-11-2016 [facility] ULCER OF LEFT ANKLE UNSTAGEABLE M1990 UNSPECIFIED 05-06-2016 [facility] OSTEOARTHRI SERVICE TIS UNSPECIFIED SITE R0789 OTHER CHEST 05-06-2016 [facility] PAIN PHYSICIANS, [facility] G63772 CELLULITIS 04-25-2016 [facility] OF RIGHT LOWER LIMB S85356 PRESSURE 04-25-2016 [facility] ULCER OF RIGHT HEEL STAGE 2 E559 VITAMIN D 04-24-2016 [facility] UNSPECIFIED ASSOCIATES L089 LOCAL INF 04-18-2016 [facility] THE SKIN & HEALTH SUBCUTANEOU ASSOCIATES S TISSUE UNS R319 HEMATURIA 04-18-2016 [facility] P O01279 UNSPECIFIED 04-17-2016 [facility] BLEPHARITIS CENTER RIGHT LOWER EYELID [id number] UNSPECIFIED 03-29-2016 [facility] OPEN [facility] LOWER ASSOCIATES LEG INITIAL ENC Q15547 PAIN IN 03-20-2016 [facility] LEFT KNEE [facility] INC M179 OSTEOARTHRI 02-22-2016 [facility] TIS OF KNEE MEM HOSP INC UNSPECIFIED N4889 OTHER 02-18-2016 [facility] P OF PENIS N489 DISORDER OF 02-18-2016 [facility] UNSPEC[facility] AMBULANCE SE R3989 OTH 02-18-2016 [facility] SYMPTOMS & COUNTY SIGNS AMBULANCE INVOLVING SE THE SYSTEM R52 PAIN 02-18-2016 [facility] UNSPECIFIED [facility] SE E447XHP UNS COMP 02-18-2016 [facility] PROSTH [facility] DEVICE IMPL AMBULANCE & GRAFT SE INIT ENC R1084 GENERALIZED 02-13-2016 [facility] ABDOMINAL [facility]ERGENCY PAIN AMBULAN R1930 ABDOMINAL 02-13-2016 [facility] UNSPECIFIED AMBULAN SITE R5381 OTHER 02-13-2016 [facility] MAL[facility]ISE AMBULANCE SERVICE Z466 ENCOUNTER 02-13-2016 [facility] FITTING AND PHYSICIANS, ADJUSTMENT [facility] URINARY DEVICE E118 TYPE 2 02-04-2016 [facility] DI[facility]ES [facility] MELLITUS INC W/UNS COMPLICATIO NS Z539 PROCEDURE & 02-04-2016 [facility] TREATMENT [facility] NOT CARRIED INC OUT UNS REASON M169 OSTEOARTHRI 01-10-2016 SAMY GARBER OF HIP , PSC UNSPECIFIED F42747 PAIN IN 01-10-2016 [facility] UNSPECIFIED [facility]OS[facility] HIP INC J24664 PAIN IN 01-10-2016 [facility] UNSPECIFIED [facility]OS[facility] KNEE INC E878 OTHER D/O 12-27-2015 [facility] ELECTROLYTE ASSOCIATES AND FLUID BALANCE NEC C97862 OTHER 12-17-2015 [facility] SPECIFIED [facility] RHEUMATOID INC ARTHRITIS LEFT HIP M1612 UNILATERAL 12-17-2015 [facility] PRIMARY [facility] OSTEOARTHRI INC TIS LEFT HIP J92322 PAIN IN 12-07-2015 [facility] LEFT THIGH [facility] INC R49587 PAIN IN 12-07-2015 [facility] LEFT LOWER [facility] LEG INC J80353 PAIN IN 12-06-2015 [facility] LEFT HIP [facility] INC Y72578 NON-PRSS 11-24-2015 [facility] CHRN ULCER PHYSICIANS SKIN OTH GROUP SITES UNS SEVERITY X94363 TYPE 2 11-16-2015 [place] [facility] DIABETES MELLITUS WITH FOOT ULCER M2570 OSTEOPHYTE 11-16-2015 [place] [facility] UNSPECIFIED JOINT C27845 PAIN IN 10-19-2015 [place] [facility] RIGHT FOOT D509 IRON 09-29-2015 [facility] HEALTH ANEMIA ASSOCIATES UNSPECIFIED Z74693 COMBINED 08-24-2015 [facility]MS [facility]-RELATED INSTITUTE CATARACT LEFT EYE H269 UNSPECIFIED 08-24-2015 [facility] CATARACT [facility] INC N82410 COMBINED 07-27-2015 [facility]-RELATED INSTITUTE CATARACT RIGHT EYE E46 UNSPECIFIED 2015 [facility] PROTEIN-EVGENY ASSOCIATES ORIE MALNUTRITIO N H37693 COMBINED 06-22-2015 [facility]-RELATED INSTITUTE CATARACT BILATERAL H538 OTHER 06-22-2015 [facility] VISUAL [facility] DISTURBANCE INSTITUTE S N186 END STAGE 05-24-2015 [facility] RENAL HEALTH DISEASE ASSOCIATES 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 [facility] INC CY CHRONIC PERIPHERAL I071 RHEUMATIC 05-11-2015 [place] [facility] TRICUSPID SERV INSUFFICIEN FOUNDATION CY 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 05-11-2015 [place] [facility] C MITRAL SERV VALVE FOUNDATION INSUFFICIEN CY Z0189 ENCOUNTER 05-06-2015 [facility] OTHER AMB SERVICE SPECIFIED SPECIAL EXAMINATION S E1136 TYPE 2 04-29-2015 [facility] MELLITUS CENTER WITH DIABETIC CATARACT H2513 AGE-RELATED 04-29-2015 [facility] NUCLEAR VISION CATARACT CENTER BILATERAL O27608 CATARACT 04-29-2015 [facility] SECONDARY TO OCULAR DISORDERS UNS EYE I5032 CHRONIC 04-29-2015 [facility] DIASTOLIC CONGESTIVE HEART FAILURE R5382 CHRONIC 04-29-2015 [facility] FATIGUE UNSPECIFIED 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 M7731 CALCANEAL 03-30-2015 [place] [facility] RIGHT MEDICAL FOOT IMAGING ASS M059 RA WITH 03-23-2015 [facility] RHEUMATOID EMERGENCY FACTOR AMBULAN UNSPECIFIED S50916 PAIN IN 03-23-2015 [facility] UNSPECIFIED EMERGENCY LIMB AMBULAN N31349L LACERATION 03-23-2015 [facility] W/FOREIGN EMERGENCY BODY UNS AMBULAN FOOT INITIAL ENC Z7901 CORRECTION 03-16-2015 [facility] CURRENT USE HEALTH OF ASSOCIATES ANTICOAGULA NTS G8929 OTHER 02-25-2015 [facility] CHRONIC EMERGENCY PAIN AMBULAN J9690 RESP FAIL 02-25-2015 [facility] UNS UNS EMERGENCY WHETHER AMBULAN W/HYPOXIA/H YPERCAPNIA E975 02-24-2015 [facility] A419 SEPSIS 02-18-2015 [facility] UNSPECIFIED HEALTH ORGANISM ASSOCIATES E0590 THYROTOXICO 02-18-2015 [facility] SIS UNS W/O HEALTH THYROTOXIC ASSOCIATES CRISIS/STOR M R350 FREQUENCY 02-18-2015 [facility] MICTURITION ASSOCIATES R7989 OTHER SPEC 02-18-2015 [facility] ABNORMAL HEALTH FINDINGS ASSOCIATES BLOOD CHEMISTRY R4182 ALTERED 01-22-2015 [facility] MENTAL EMERGENCY STATUS AMBULAN UNSPECIFIED I270 PRIMARY 01-21-2015 [facility] PULMONARY LAR HYPERTENSIO CONSULTANTS N O Z11774 [place] 01-19-2015 [facility] COR ARTREY LAR W/UNS CONSULTANTS ANGINA O PECTORIS H71560C NONDSPL FX 01-19-2015 [facility] 2ND GENERAL METATARSAL SURGERY RT FT INIT ENC CLOS FX E1365 OTH SPEC 01-16-2015 [facility] DIABETES LAR MELLITUS CONSULTANTS WITH O HYPERGLYCEM IA I272 OTHER 01-15-2015 [facility] SECONDARY REGIONAL PULMONARY MEDICAL HYPERTENSIO N J811 CHRONIC 01-15-[facility] EDEMA ASSOCIAT J9610 CHRONIC 01-15-2015 [facility] RESPIRATORY REGIONAL FAIL UNS MEDICAL HYPOXIA/HYP ERCAPNIA X60984 NON-PRSS 01-15-[facility] CHRN ULCR RADIOLOGY OTH PART LT ASSOCIAT FOOT UNS SEVERITY R47641 NON-PRSS 01-15-2015 [facility] CHR ULCR REGIONAL UNS PART LT MEDICAL LOW LEG UNS SEV R80488Z DISPLACED 01-15-[facility] FX 2ND RADIOLOGY METATARSAL ASSOCIAT RT FT INIT CLOS FX I5040 UNSPECIFIED 01-14-2015 [facility] SYSTOLIC & HOSPITAL DIASTOLIC CHF J90 PLEURAL 01-14-2015 [facility]ICAL NOT IMAGING ASS ELSEWHERE CLASSIFIED M0540 RHEUMATOID 01-14-2015 [facility] WITH RA HOSPITAL UNSPECIFIED SITE R590 LOCALIZED 01-14-2015 [facility] ENLARGED MEDICAL LYMPH NODES IMAGING ASS 09352 COR 01-13-2015 [facility] ATHEROS[facility] LAR UNSPEC CONSULTANTS TYPE VESSEL O [place]/YOVANNY T 4258 CARDIOMYOPA 01-13-2015 [facility] THY OTHER LAR DISEASES CONSULTANTS CLASSIFIED O ELSW 4280 CONGESTIVE 01-13-2015 [facility] HEART LAR FAILURE [facility] O 45296 SHORTNESS 01-13-2015 [facility] OF BREATH [place] [facility] O 89796 DIAB W/O 01-12-2015 [facility] NOT HOS[facility] P STATED UNCNTRL 2724 OTHER AND 01-12-2015 [facility] HYPERLIPIDE [place] 3384 CHRONIC 01-12-2015 [facility] SYNDROME 4019 UNSPECIFIED 01-12-2015 [facility] P N 4254 OTHER 01-12-2015 [place] [facility] CARDIOMYOPA HOSPITAL P MARNI 4259 UNSPECIFIED 01-12-2015 [facility] CARDIOMYOPA THY 44590 UNSPECIFIED 01-12-2015 [facility]STOLIC [facility] HEART FAILURE 496 CHRONIC 01-12-2015 [facility] OBSTRU[facility] AMBUL[facility] NEC 00344 ACUTE 01-12-2015 [facility] FAILURE 5849 ACUTE 01-12-2015 [facility] FAIL[facility] UNSPECIFIED 5853 CHRONIC 01-12-2015 [facility] DISEASE STAGE III (MODERATE) 7140 RHEUMATOID 01-12-2015 [facility]RIT[facility] 7862 COUGH 01-12-2015 [facility] 56063 SOLITARY 01-12-2015 [facility] PULMONARY [facility] NODULE [facility] V4582 POSTSURG 01-12-2015 [place] [facility] TRANSLUMINA HOSPITAL P L COR ANGPLSTY STS V5867 LONG-TERM 01-12-2015 [place] USE OF [facility] INSULIN HOSPITAL P V5869 LONG-TERM 01-12-2015 [place] (CURRENT) [facility] USE OF HOSPITAL P OTHER MEDICATIONS 23469 01-04-2015 [facility] COMM[facility]ITY ACT 59996 ATRIAL 12-25-2014 [facility] FIBRILLATIO LAR N CONSULTANTS O 7823 EDEMA 12-25-2014 [facility] 83743 OTHER FLUID 12-24-2014 [facility] 87884 ANEMIA IN 12-24-2014 [facility] DISEASE 70472 HTN CKD UNS 12-24-2014 [facility] W/CKD SERV STAGE I FOUNDATION THRU STAGE IV/UNS 5880 RENAL 12-24-2014 [facility] OSTEODYSTRO SERV PHY [facility] 4240 MITRAL 12-22-2014 [facility] DISORDERS [facility] 4242 TRICUSPID 12-22-2014 [facility] DISORD[facility] SPEC NONRHEUMATI C 77013 OCCL&STENOS 12-22-2014 [facility] PRECERBRL IMAGING ASS ART W/O INFARCT 77091 OTHER 12-19-2014 [facility] CHRONIC PHYSICIANS PAIN GROUP 4011 ESSENTIAL 12-19-2014 [facility] HYPERTENSIO PHYSICIANS N, BENIGN GROUP 4439 UNSPECIFIED 12-18-2014 [facility] PERIPHERAL LAR VASCULAR CONSULTANTS DISEASE O V4509 OTHER 12-18-2014 [facility] CARDIAC INC DEVICE IN SITU 5601 PARALYTIC 12-09-2014 [facility] ILEUS PHYSICIANS GROUP 7873 FLATULENCE 12-02-2014 [facility] ERUCTATION PHYSICIANS AND GAS GROUP PAIN 80119 ABDOMINAL 12-02-2014 [facility] PAIN, PHYSICIANS UNSPECIFIED GROUP SITE 55413 UNS 12-01-2014 [facility] GASTRITIS&G [facility] ASTRODUODIT SERVICE IS W/O MENTION HEMORR 5609 UNSPECIFIED 12-01-2014 [facility] INC OBSTRUCTION 91089 CALCU 12-01-2014 [facility] W/O MENTION IMAGING ASS CHOLECYST/O BST V4502 AUTOMATIC 12-01-2014 [facility] IMPLANTABLE [facility] CARDIAC INC DEFIBRILLAT OR SITU 250 DIABETES 11-26-2014 [facility] [place] [address] OTHER 11-23-2014 [facility] SPECIFIED CARDIAC DYSRHYTHMIA S 5851 CHRONIC 11-23-2014 [facility] [place] I [address] RESTLESS 11-06-2014 [facility]GS PRIMARY SYNDROME CARE 50907 ESOPHAGEAL 11-06-2014 [facility] REFLUX PRIMARY CARE 4293 CARDIOMEGAL 10-13-2014 [place] [address] OTHER 10-13-2014 [facility] DYSPNEA AND REGIONAL MEDICAL CE RESPIRATORY ABNORMALITI ES 5932 ACQUIRED 10-07-2014 [facility] CYST OF MEDICAL KIDNEY IMAGING ASS 11048 UNSPECIFIED 09-11-2014 [facility] INFECTION PARTNERS OF OF BONE [place] ANKLE AND FOOT 9597 INJURY 09-11-2014 [facility] OTHER[facility]UNSPE [facility] CIFIED KNEE INC LEG ANKLE&FOOT V5881 FITTING AND 09-11-2014 [facility] ADJUSTMENT MEDICAL OF IMAGING ASS VASCULAR CATHETER 26942 DIAB W/O 09-08-2014 [place] [facility] M[facility] SERV COMP TYPE FOUNDATION II/UNS TYPE UNCNTRL 2767 HYPERPOTASS 08-26-2014 [facility] P 412 OLD 08-26-2014 [facility] MYOCARDIAL [facility] INFARCTION INC 88200 CORONARY 08-26-2014 [facility] P CORONARY ARTERY 5859 CHRONIC 08-26-2014 [facility] KIDNEY [facility] DISEASE INC UNSPECIFIED 53562 WHEEZING 08-26-2014 [facility] 1101 DERMATOPHYT 08-14-2014 [facility] OSIS OF NAIL 88087 DIAB 08-14-2014 [facility] W/PERIPH CIRC D/O TYPE II/UNS TYPE UNCNTRL 7295 PAIN IN 08-14-2014 [facility] SOFT TISSUES OF LIMB 462 ACUTE 08-08-2014 [facility] PHARYNGITIS [facility] INC 80930 OTH NONSPC 08-08-2014 [facility]N FINDNG MEDICAL RAD&OTH EXM IMAGING ASS BODY STRUCTURE 714 RA AND 07-23-2014 [employer] OTHER AREA AGENCY INFLAMMATOR ON RED Y POLYARTHROP ATHIES 56262 URINARY 07-09-2014 [facility] HESITANCY PRIMARY CARE 4271 PAROXYSMAL 06-22-2014 [facility]ENTRICULAR SERV [facility] TACHYCARDIA V5331 FITTING AND 06-22-2014 [facility] OF CARDIAC FOUNDATION PACEMAKER V707 EXAMINATION 06-22-2014 [facility] OF SERV PARTICIPANT [facility]OUNDATION IN CLINICAL TRIAL 31758 OTHER 06-21-2014 [place] [facility] PREMATURE [facility] BEATS [facility] 35355 NONSPECIFIC 06-21-2014 [place] [facility] ABNORMAL SERV ELECTROCARD FOUNDATION IOGRAM 13934 DIAB 06-18-2014 [facility] TYPE II/UNS TYPE UNCNTRL 62544 ACUT ME 06-18-2014 [facility] IAL INFARCT INIT EPIS CARE 56494 ULCER OF 06-18-[address] [facility] [place] [place] V4589 OTHER 06-18-2014 [place] [facility] POSTSURGICA SERV L STATUS FOUNDATION OTHER 43068 DIAB W/O 06-17-2014 [place] [facility] MENTION SERV COMP TYPE I FOUNDATION [JUV TYPE] UNCNTRL 06617 ACUT 06-17-2014 [facility] INFARCT UNS SERVICE SITE EPIS CARE UNS 62936 ACUTE 06-17-2014 [facility] P UNSPEC SITE INIT EPIS CARE 5180 PULMONARY 06-17-2014 [place] [facility] COLLAPSE SERV [facility] 7850 UNSPECIFIED 06-17-2014 [facility] TACHYCARDIA IMAGING ASS 59605 PRECORDIAL 06-17-2014 [facility] PAIN [facility]ANCE SERVICE 3572 POLYNEUROPA 06-10-2014 [facility] TH[facility] IN HEALTH DIABETES AGENCY 46036 ULCER OF 06-10-2014 [facility] OTHER PART HEALTH OF FOOT AGENCY 91774 MUSCLE 06-10-2014 [facility] WEAKNESS HEALTH (GENERALIZE AGENCY D) 8601 CELLULITIS 04-14-2014 [facility] AND ABSCESS PRIMARY OF LEG CARE EXCEPT FOOT 42497 INSOMNIA 03-19-2014 [facility] UNSPECIFIED PRIMARY CARE 76269 UNSPECIFIED 01-22-2014 [facility] [address] ULCER OF 01-22-2014 [facility]F [facility] INC V571 OTHER 01-22-2014 [facility] PHYSICAL [facility] THERAPY INC 8911 OPEN WOUND 01-19-2014 [facility] OF KNEE LEG PRIMARY AND ANKLE CARE COMPLICATED 586 UNSPECIFIED 08-27-2013 [facility] RENAL REGIONAL FAILURE MEDICAL CE 7038 OTHER 08-27-2013 [facility] SPECIFIED PRIMARY DISEASE OF CARE NAIL 93660 OLECRANON 08-01-2013 [facility] BURSITIS PRIMARY CARE 96503 GEN 07-22-2013 [facility] HOME SIS MEDICAL INVOLVING EQUIPME MULTIPLE SITES 70958 GENERALIZED 05-22-2013 [facility] OSTEOAR[facility]RO SIS UNSPECIFIED SITE 65575 ULCER OF 03-17-2013 [facility] HEEL AND PRIMARY MIDFOOT CARE 7812 ABNORMALITY 03-17-2013 [facility] OF GAIT PRIMARY CARE 31881 OSTEOARTHRO 02-20-2013 [facility] [place] SIS UNSPEC ORTHOPAEDIC WHETHER S PLC GEN/LOC LOWER LEG V0481 NEED 02-12-2013 [facility] PROPHYLACTI PRIMARY C CARE VACCINATION &INOCULATIO N FLU 05361 PAIN IN 11-15-2012 [facility] JOINT, PRIMARY SHOULDER CARE REGION 72888 PAIN IN 11-15-2012 [facility], PRIMARY UPPER ARM CARE 49333 UNSPEC 10-08-2012 [facility] POLYARTHROP CENTER OF ATHY/POLYAR [place] THRITIS SITE UNSPEC 44323 DIAB 09-20-2012 [facility] W/NEURO REGIONAL MANIFESTS MEDICAL CE TYPE II/UNS TYPE UNCNTRL 4871 INFLUENZA 05-27-2012 [facility] WITH OTHER RESPIRATORY MANIFESTATI ONS 50982 FEVER 05-18-2012 [facility] UNSPECIFIED KOKO 4660 ACUTE 04-25-2012 [facility] BRONCHITIS 4658 ACUTE URIS 02-28-2012 [facility] SARKAR OF OTHER MULTIPLE SITES 62084 PRESSURE 02-28-2012 [facility] SARK[facility] ULCER HEEL 7993 UNSPECIFIED 01-19-2012 [facility] 44049 OTHER 07-24-2011 [facility]AP[facility] SARKAR [place]INARY INCONTINENC E 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 7291 UNSPECIFIED 12-23-2010 LES MYALGIA JOSE MARCHPIrenaSIrenaCIrena MYOSITIS 45151 UNSPECIFIED 11-30-2010 [place] LAPAROSCOPI OSTEOMYELIT C & IS ANKLE ADVANCED S AND FOOT 9961 [facility] COMP 11-30-2010 [place] OT LAPAROSCOPI VASCULAR C & DEVICE [place]ANC[place] S IMPLANT&[place] [address] FLUSHING 09-20-2010 [facility] [place] [address] PRESSURE 06-14-2010 ROSY Nelson ULCER ANDRE VALDES, UNSPECIFIED LLC SITE 80126 ACUTE 06-14-2010 ROSY Nelson OSTEOMYELIT ANDRE VALDES, IS SITE LLC UNSPECIFIED 27823 ACUTE 06-02-2010 ROSY Nelson OSTEOMYELION POWELL MD, IS, ANKLE LLC AND FOOT 2859 UNSPECIFIED 05-19-2010 [facility] 77009 UNSPECIFIED 05-19-2010 [facility] CELL[facility] INC ABSCESS OF TOE 30856 PRESSURE 05-19-2010 [facility] ULCER SOLUTIONS BUTTOCK 25781 UNSPECIFIED 05-17-2010 [place] LAPAROSCOPI OSTEOMYELIT C & IS OTHER ADVANCED S SPECIFIED SITES 37255 CHEST PAIN 05-17-2010 [place] UNSPECIFIED HEART & VASCULAR PH 6829 CELLULITIS 05-16-2010 [facility] [place] AND ABSCESS IMAGING PSC OF UNSPECIFIED SITE 80580 UNSPECIFIED 05-16-2010 ROSY POWELL MD, OSTEOMYELIT LLC IS SITE UNSPECIFIED 5939 UNSPECIFIED 05-13-2010 [facility] [place] DISORDER IMAGING PSC OF KIDNEY AND URETER 33743 OTHER CHEST 05-13-2010 [place] PAIN LAPAROSCOPI C & ADVANCED S 61058 OTHER 05-13-2010 [facility] [place] INVOLVING KIDNEY CARE URINARY SYSTEM 70004 PRESSURE 05-12-2010 [facility] [place] [address] PRESSURE 05-12-2010 [facility] ULCER STAGE REGIONAL II MEDICAL CE 7851 PALPITATION 04-19-2010 [facility] HEART & VASCULAR PH 3569 UNSPEC 04-14-2010 [facility] HEREDIT&IDI FAMILY OPATHIC PRACTICE CL PERIPHERAL NEUROPATHY 72900 DIAB W/O 01-24-2010 [facility] COMP TYPE I FAMILY [JUV] NOT PRACTICE CL STATED UNCNTRL 7801 HALLUCINATI 12-23-2009 [facility] ONS EMERGENCY PHYSICIANS 6827 CELLULITIS 11-02-2009 [facility] AND ABSCESS EMERGENCY OF FOOT PHYSICIANS EXCEPT TOES 83727 OSTEOARTHRO 11-02-2009 [facility] [place] SIS UNSPEC IMAGING PSC WHETHER GEN/LOC ANK&FOOT 9174 FOOT&TOE 11-02-2009 [facility] INSECT BITE EMERGENCY PHYSICIANS NONVENOMOUS W/O MENTION INF 9175 FOOT AND 11-02-2009 [facility] TOE INSECT REGIONAL BITE MEDICAL NONVENOMOUS CENT INFECTED E0008 OTHER 11-02-2009 [facility] EXTERNAL REGIONAL CAUSE MEDICAL STATUS CENT E8490 PLACE OF 11-02-2009 [facility] OCCURRENCE, EMERGENCY HOME PHYSICIANS E9064 BITE OF 11-02-2009 [facility] NONVENOMOUS EMERGENCY ARTHROPOD PHYSICIANS 3670 HYPERMETROP 10-21-2009 [facility] PTON, JERMAINE 80752 OTHER 10-05-2009 [facility] 91865 PAIN IN 09-07-2009 [facility] JOINT PAIN PELVIC PHYSICIANS REGION AND PSC THIGH 07874 PAIN IN 09-07-2009 [facility] JOINT, PAIN LOWER LEG PHYSICIANS PSC 7242 LUMBAGO 09-07-2009 [facility] 7410 SPINA 08-03-2009 BHAGRATH, BIFIDA WITH KSENIA S HYDROCEPHAL US 7804 DIZZINESS 07-30-2009 [facility] GIDDINESS PHYS[facility]ANS PSC 03244 POLYARTICUL 07-08-2009 [facility] AR JUVENILE PAIN RA CHRONIC PHYSICIANS OR PSC UNSPECIFIED 7852 UNDIAGNOSED 07-01-2009 [facility] CARDIAC HEART & [facility] VASCULAR PHYSICIANS, INC 82881 PAIN IN 11-09-2008 [facility], L HOME MULTIPLE MEDICAL SITES SUPPLIES INC 2689 UNSPECIFIED 10-02-2008 [facility] VITAMIN D REGIONAL DEFICIENCY MEDICAL CENT 5852 CHRONIC 10-02-2008 [facility] KIDNEY REGIONAL DISEASE MEDICAL STAGE II CENT (MILD) 48755 HYPERTROPHY 10-02-2008 [facility] PROSTATE REGIONAL W/O UR OBST MEDICAL & OTH LUTS CENT 7910 PROTEINURIA 10-02-2008 [facility] 7231 CERVICALGIA 07-08-2008 [facility] PAIN PHYSICIANS PSC 48481 OSTEOARTHRO 2008 [facility] S UNSPEC ORTHOPAEDIC GEN/LOC S PLC PELV REGION&THIG H 3829 UNSPECIFIED 05-28-2008 [facility] 4659 ACUTE URIS 04-28-2008 [place] OF [facility] UNSPECIFIED HOSP SITE 7213 LUMBOSACRAL 04-02-2008 PH[facility]ANS SERVICES SPONDYLOSIS 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 7244 THORACIC/TY 04-02-2008 PH[facility]ANS MBOSACRAL SERVICES NEURITIS/RA PSC DICULITIS UNSPEC 8472 LUMBAR 04-02-2008 [facility] SPRAIN AND SERVICES STRAIN PSC 6828 CELLULITIS 03-03-2008 [place] AND ABSCESS [facility]AM OF OTHER HOSP SPECIFIED SITE 93022 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 52832 SPINAL 02-26-2008 PH[facility]ANS STENOSIS OF SERVICES THORACIC PSC REGION 7241 PAIN IN 02-26-2008 [facility] THORACIC SERVICES SPINE PSC 19288 CLOS FX 02-26-2008 [facility] T7-T12 SERVICES LEVEL PSC W/UNSPEC SPINAL CORD INJURY 23056 SECONDARY 02-25-2008 [facility] HYPER[facility]PH[facility]Y YROIDISM CONSULTANTS 9570 INJURY TO 02-11-2008 [facility] DORSAL SERVICES NERVE ROOT PSC 36801 OSTEOARTHRO 01-14-2008 PH[facility]ANS S UNSPEC SERVICES GEN/LOC OTH PSC SPEC SITES 02849 DISPLCMT 01-14-2008 [facility] LUMBAR SERVICES INTERVERT PSC DISC W/O MYELOPATHY 75500 SPINAL STEN 01-14-2008 [facility] LUMB REG SERVICES W/O PSC NEUROGENIC CLAUDICATIO N 39156 SCOLIOSIS , 01-14-2008 [facility] IDIOPATHIC SERVICES PSC 7246 DISORDERS 12-25-2007 [facility] OF SACRUM SERVICES PSC 7245 UNSPECIFIED 12-21-2007 [facility] BACKACHE IMAGING PSC 14187 ABDOMINAL 12-21-2007 [facility] PAIN OTHER REGIONAL SPECIFIED MEDICAL SITE CENT 3970 DISEASES OF 11-18-2007 [facility], TRICUSPID ZE C VALVE 22376 PRIMARY LOC 11-13-2007 [facility] OSTEOARTHRO MEDICAL SIS PELVIC CENT REGION&THIG H 27913 PRIMARY 11-13-2007 [facility] OSTEOARTHRO MEDICAL SIS LOWER CENT LEG 7176 LOOSE BODY 11-13-2007 [facility] IN KNEE [facility] 52291 DISORDER OF 11-13-2007 [facility] BONE AND IMAGING PSC CARTILAGE UNSPECIFIED 2818 ANEMIA 09-26-2007 [facility] W/OTHER PLLC SPEC NUTRITIONAL DEFIC 4778 ALLERGIC 09-26-2007 [facility] DUE TO PLLC OTHER ALLERGEN 95274 UNSPECIFIED 09-26-2007 [facility] AND [facility] ABSCESS OF FINGER 92967 NOCTURIA 09-26-2007 [facility] 87665 VOMITING 09-13-2007 [facility] PHYSICIAN INC 88733 OSTEOARTHRO 09-04-2007 [facility] S UNSPEC NEPHROLOGY WHETHER CONSULTANTS GEN/LOC UNSPEC SITE 67774 ELEVATED 09-04-2007 [facility] PROSTATE NEPHROLOGY SPECIFIC CONSULTANTS ANTIGEN 08444 UNSPECIFIED 06-24-2007 [facility] CONSTIPATIO MEDICAL N CENT 82006 LOSS OF 06-24-2007 [facility] WEIGHT [facility] 00803 URINARY 06-24-2007 [facility] FREQUENCY [facility] V7644 SPECIAL 06-24-2007 [facility] NEOPLASM OF CENT PROSTATE 4779 ALLERGIC 10-31-2006 [facility] CAUSE PLLC UNSPECIFIED D64.9 ANEMIA, UNSPECIFIED E86.0 DEHYDRATION E87.5 HYPERKALEMI A G89.29 OTHER CHRONIC PAIN I21.9 ACUTE MYOCARDIAL INFARCTION, UNSPECIFIED J02.9 ACUTE PHARYNGITIS , UNSPECIFIED J18.9 PNEUMONIA, UNSPECIFIED ORGANISM J44.1 CHRONIC OBSTRUCTIVE PULMONARY DISEASE W (ACUTE) EXACERBATIO N J96.91 RESPIRATORY FAILURE, UNSPECIFIED WITH HYPOXIA K56.609 UNSP INTESTNL OBST, UNSP TO PARTIAL VERSUS COMPLETE OBST N18.9 CHRONIC KIDNEY DISEASE, UNSPECIFIED N28.9 DISORDER OF KIDNEY AND URETER, UNSPECIFIED N39.0 URINARY TRACT INFECTION, SITE NOT SPECIFIED N48.89 OTHER SPECIFIED DISORDERS OF PENIS R06.00 DYSPNEA, UNSPECIFIED R06.02 SHORTNESS OF BREATH R07.9 CHEST PAIN, UNSPECIFIED R60.9 EDEMA, UNSPECIFIED Z86.79 PERSONAL HISTORY OF OTHER DISEASES OF THE CIRCULATORY SYSTEM Allergies, Adverse Reactions, Alerts Clinical Alert Notifications Alert Diabetes: no eye exam in the last 365 days Diabetes: no lipid panel in the last 365 days Diabetes: no urine protein screening in the last 365 days Medications Na ND Rx Da Fi Fi Am Da Di Ph RX Ph St me C No te ll ll ou ys ag ar # ys at rm s nt no ma ic us Or Da si cy ia de te s n re d 00 08 11 0 30 30 ME 15 GA Ac TA 90 -3 -2 0. D 34 IN ti ME 40 1- 5- 00 CA 30 EY ve N 52 20 20 0 RE 14 C 38 17 17 ME 50 0 PH CH 0 AR AE MG MA L CY S TA BL LL ET C SE 00 08 11 0 12 30 ME 15 GA Ac NN 90 -3 -2 00 D 34 IN ti A- 46 1- 5- .0 CA 30 EY ve LA 52 20 20 00 RE 16 X 26 17 17 ME 8. 1 PH CH 6 AR AE MG MA L CY S TA BL LL ET C ST 00 08 11 0 30 30 ME 15 GA Ac OO 53 -3 -2 0. D 34 IN ti L 61 1- 5- 00 CA 30 EY ve SO 06 20 20 0 RE 15 FT 41 17 17 ME EN 0 PH CH ER AR AE MA L 25 CY S 0 MG LL C SO FT GE L 00 08 11 0 30 30 ME 15 GA Ac PI 90 -3 -2 0. D 31 IN ti RI 46 1- 0- 00 CA 53 EY ve N 28 20 20 0 RE 70 81 88 17 17 ME 9 PH CH MG AR AE MA L CH CY S EW AB LL LE C TA BL ET TA 00 08 11 0 30 30 ME 15 GA Ac B- 90 -3 -1 0. D 28 IN ti A- 40 1- 5- 00 CA 72 EY ve 53 20 20 0 RE 36 TE 08 17 17 ME 0 PH CH TA AR AE BL MA L ET CY S LL C FE 00 08 11 0 30 30 ME 15 GA Ac RR 53 -3 -1 0. D 28 IN ti OU 61 1- 5- 00 CA 72 EY ve S 00 20 20 0 RE 35 CLARK 90 17 17 ME LF 1 PH CH AT AR AE E MA L 32 CY S 5 MG LL C TA BL ET 00 08 11 0 30 30 ME 15 GA Ac TA 53 -3 -1 0. D 28 IN ti ME 63 1- 5- 00 CA 72 EY ve N 79 20 20 0 RE 37 D3 00 17 17 ME 1 PH CH 2, AR AE 00 MA L 0 CY S UN IT LL C SO FT GE L LO 00 08 11 0 30 30 ME 15 GA Ac RA 78 -3 -0 0. D 23 IN ti TA 15 1- 4- 00 CA 05 EY ve DI 07 20 20 0 RE 03 NE 70 17 17 ME 1 PH CH 10 AR AE MA L MG CY S TA LL BL C ET ST 00 08 10 0 30 30 ME 15 GA Ac OO 53 -3 -2 0. D 18 IN ti L 61 1- 7- 00 CA 77 EY ve SO 06 20 20 0 RE 75 FT 41 17 17 ME EN 0 PH CH ER AR AE MA L 25 CY S 0 MG LL C SO FT GE L SE 00 08 10 0 12 30 ME 15 GA Ac NN 90 -3 -2 00 D 18 IN ti A- 46 1- 7- .0 CA 77 EY ve LA 52 20 20 00 RE 76 X 26 17 17 ME 8. 1 PH CH 6 AR AE MG MA L CY S TA BL LL ET C 00 08 10 0 30 30 ME 15 GA Ac TA 90 -3 -2 0. D 18 IN ti ME 40 1 7 CA 77 EY ve N 52 20 20 0 RE 74 C 38 17 17 ME 50 0 PH CH 0 AR AE MG MA L CY S TA BL LL ET C 00 08 10 0 30 30 ME 15 GA Ac PI 90 -3 -2 0. D 16 IN ti RI 46 1- 3- CA 98 EY ve N 28 20 20 0 RE 63 81 88 17 17 ME 9 PH CH MG AR AE MA L CH CY S EW AB LL LE C TA BL ET FE 00 08 10 0 30 30 ME 15 GA Ac RR 53 -3 -1 0. D 12 IN ti OU 61 - 6 CA 12 EY ve S 00 20 20 0 RE 10 CLARK 90 17 17 ME LF 1 PH CH AT AR AE E MA L 32 CY S 5 MG LL C TA BL ET 00 08 10 0 30 30 ME 15 GA Ac TA 53 -3 -1 0. D 12 IN ti ME 63 - 6 CA 12 EY ve N 79 20 20 0 RE 14 D3 00 17 17 ME 1 PH CH 2, AR AE 00 MA L 0 CY S UN IT LL C SO FT GE L TA 00 08 10 0 30 30 ME 15 GA Ac B- 90 -3 -1 0. D 12 IN ti A- 40 1- 6- 00 CA 12 EY ve 53 20 20 0 RE 11 TE 08 17 17 ME 0 PH CH TA AR AE BL MA L ET CY S LL C LO 00 08 10 0 30 30 ME 15 GA Ac RA 78 -3 -0 0. D 07 IN ti TA 15 1- 6- 00 CA 11 EY ve DI 07 20 20 0 RE 54 NE 70 17 17 ME 1 PH CH 10 AR AE MA L MG CY S TA LL BL C ET 00 08 09 0 30 30 ME 14 GA Ac PI 90 -3 -2 0. D 87 IN ti RI 46 1- 7- 00 CA 57 EY ve N 28 20 20 0 RE 76 81 88 17 17 ME 9 PH CH MG AR AE MA L CH CY S EW AB LL LE C TA BL ET ST 00 08 09 0 30 30 ME 14 GA Ac OO 53 -3 -2 0. D 87 IN ti L 61 1- 7- 00 CA 57 EY ve SO 06 20 20 0 RE 82 FT 41 17 17 ME EN 0 PH CH ER AR AE MA L 25 CY S 0 MG LL C SO FT GE L 00 08 09 0 13 13 ME 14 GA Ac TA 90 -3 -2 0. D 87 IN ti ME 40 1- 7- 00 CA 57 EY ve N 52 20 20 0 RE 80 C 38 17 17 ME 50 0 PH CH 0 AR AE MG MA L CY S TA BL LL ET C SE 00 08 09 0 12 30 ME 14 GA Ac NN 90 -3 -2 00 D 87 IN ti A- 46 1- 7- .0 CA 57 EY ve LA 52 20 20 00 RE 99 X 26 17 17 ME 8. 1 PH CH 6 AR AE MG MA L CY S TA BL LL ET C RO 00 08 09 0 15 30 ME 14 GA Ac BA 90 -3 -1 00 D 87 IN ti FE 40 1- 8- .0 CA 57 EY ve N- 05 20 20 00 RE 97 DM 31 17 17 ME 6 PH CH SY AR AE RU MA L P CY S LL C FE 00 08 09 0 30 30 ME 14 GA Ac RR 53 -3 -1 0. D 87 IN ti OU 61 1- 8- 00 CA 57 EY ve S 00 20 20 0 RE 84 CLARK 90 17 17 ME LF 1 PH CH AT AR AE E MA L 32 CY S 5 MG LL C TA BL ET 00 08 09 0 30 30 ME 14 GA Ac TA 53 -3 -1 0. D 97 IN ti ME 63 1- 8- 00 CA 42 EY ve N 79 20 20 0 RE 76 D3 00 17 17 ME 1 PH CH 2, AR AE 00 MA L 0 CY S UN IT LL C SO FT GE L EN 00 09 09 0 13 1 ME 14 GA Ac EM 53 -1 -1 30 D 97 IN ti A 67 8- 8- .0 CA 43 EY ve 41 20 20 00 RE 40 55 17 17 ME 1 PH CH AR AE MA L CY S LL C TA 00 08 09 0 30 30 ME 14 GA Ac B- 90 -3 -1 0. D 87 IN ti A- 40 1- 8- 00 CA 57 EY ve 53 20 20 0 RE 93 TE 08 17 17 ME 0 PH CH TA AR AE BL MA L ET CY S LL C LO 00 08 09 0 30 30 ME 14 GA Ac RA 78 -3 -0 0. D 87 IN ti TA 15 1- 8- 00 CA 57 EY ve DI 07 20 20 0 RE 87 NE 70 17 17 ME 1 PH CH 10 AR AE MA L MG CY S TA LL BL C ET 00 08 08 0 30 30 ME 14 GA Ac TA 90 -2 -2 0. D 83 IN ti ME 40 5- 5- 00 CA 93 EY ve N 52 20 20 0 RE 36 C 38 17 17 ME 50 0 PH CH 0 AR AE MG MA L CY S TA BL LL ET C 00 06 08 0 30 30 ME 14 GA Ac PI 90 -2 -2 0. D 81 IN ti RI 46 0- 1- 00 CA 39 EY ve N 28 20 20 0 RE 76 81 88 17 17 ME 9 PH CH MG AR AE MA L CH CY S EW AB LL LE C TA BL ET 00 06 08 0 30 30 ME 14 GA Ac TA 53 -2 -1 0. D 78 IN ti ME 63 0- 8- 00 CA 56 EY ve N 79 20 20 0 RE 78 D3 00 17 17 ME 1 PH CH 2, AR AE 00 MA L 0 CY S UN IT LL C SO FT GE L BI 00 06 08 0 15 30 ME 14 GA Ac SC 90 -2 -1 0. D 44 IN ti OL 45 0- 8- 00 CA 02 EY ve AX 05 20 20 0 RE 06 81 17 17 ME 10 2 PH CH AR AE MG MA L CY S CLARK PP LL OS C IT OR Y ST 00 06 08 0 30 30 ME 14 GA Ac OO 53 -2 -1 0. D 77 IN ti L 61 0- 7- 00 CA 70 EY ve SO 06 20 20 0 RE 49 FT 41 17 17 ME EN 0 PH CH ER AR AE MA L 25 CY S 0 MG LL C SO FT GE L FE 00 06 08 0 30 30 ME 14 GA Ac RR 53 -2 -1 0. D 77 IN ti OU 61 0- 7- 00 CA 70 EY ve S 00 20 20 0 RE 48 CLARK 90 17 17 ME LF 1 PH CH AT AR AE E MA L 32 CY S 5 MG LL C TA BL ET SE 00 06 08 0 12 30 ME 14 GA Ac NN 90 -2 -1 00 D 77 IN ti A- 46 0- 7- .0 CA 70 EY ve LA 52 20 20 00 RE 50 X 26 17 17 ME 8. 1 PH CH 6 AR AE MG MA L CY S TA BL LL ET C TA 00 06 08 0 30 30 ME 14 GA Ac B- 90 -2 -1 0. D 76 IN ti A- 40 0- 4- 00 CA 87 EY ve 53 20 20 0 RE 37 TE 08 17 17 ME 0 PH CH TA AR AE BL MA L ET CY S LL C LO 00 06 08 0 30 30 ME 14 GA Ac RA 78 -2 -1 0. D 74 IN ti TA 15 0- 2- 00 CA 04 EY ve DI 07 20 20 0 RE 56 NE 70 17 17 ME 1 PH CH 10 AR AE MA L MG CY S TA LL BL C ET RO 00 06 08 0 15 30 ME 14 GA Ac BA 90 -2 -0 00 D 74 IN ti FE 40 0- 9- .0 CA 72 EY ve N- 05 20 20 00 RE 35 DM 31 17 17 ME 6 PH CH SY AR AE RU MA L P CY S LL C SE 00 06 07 0 12 30 ME 14 GA Ac NN 90 -2 -1 00 D 60 IN ti A- 46 0- 8- .0 CA 24 EY ve LA 52 20 20 00 RE 60 X 26 17 17 ME 8. 1 PH CH 6 AR AE MG MA L CY S TA BL LL ET C 00 06 07 0 30 30 ME 14 GA Ac PI 90 -2 -1 0. D 60 IN ti RI 46 0- 8- 00 CA 24 EY ve N 28 20 20 0 RE 55 81 88 17 17 ME 9 PH CH MG AR AE MA L CH CY S EW AB LL LE C TA BL ET TA 00 06 07 0 30 30 ME 14 GA Ac B- 90 -2 -1 0. D 60 IN ti A- 40 0- 8- 00 CA 24 EY ve 53 20 20 0 RE 59 TE 08 17 17 ME 0 PH CH TA AR AE BL MA L ET CY S LL C LO 00 06 07 0 30 30 ME 14 GA Ac RA 78 -2 -1 0. D 60 IN ti TA 15 0- 8- 00 CA 24 EY ve DI 07 20 20 0 RE 58 NE 70 17 17 ME 1 PH CH 10 AR AE MA L MG CY S TA LL BL C ET ST 00 06 07 0 30 30 ME 14 GA Ac OO 53 -2 -1 0. D 60 IN ti L 61 0- 8- 00 CA 24 EY ve SO 06 20 20 0 RE 57 FT 41 17 17 ME EN 0 PH CH ER AR AE MA L 25 CY S 0 MG LL C SO FT GE L FE 00 06 07 0 30 30 ME 14 GA Ac RR 53 -2 -1 0. D 60 IN ti OU 61 0- 8- 00 CA 24 EY ve S 00 20 20 0 RE 56 CLARK 90 17 17 ME LF 1 PH CH AT AR AE E MA L 32 CY S 5 MG LL C TA BL ET MA 00 06 06 0 60 30 ME 14 GA Ac PA 90 -2 -2 0. D 44 IN ti P 41 0- 0- 00 CA 02 EY ve 50 98 20 20 0 RE 05 0 86 17 17 ME MG 1 PH CH AR AE TA MA L BL CY S ET LL C ST 00 06 06 0 30 30 ME 14 GA Ac OO 53 -2 -2 0. D 44 IN ti L 61 0- 0- 00 CA 01 EY ve SO 06 20 20 0 RE 83 FT 41 17 17 ME EN 0 PH CH ER AR AE MA L 25 CY S 0 MG LL C SO FT GE L 00 06 06 0 30 30 ME 14 GA Ac PI 90 -2 -2 0. D 44 IN ti RI 46 0- 0- 00 CA 01 EY ve N 28 20 20 0 RE 76 81 88 17 17 ME 9 PH CH MG AR AE MA L CH CY S EW AB LL LE C TA BL ET LO 00 06 06 0 30 30 ME 14 GA Ac RA 78 -2 -2 0. D 44 IN ti TA 15 0- 0- 00 CA 01 EY ve DI 07 20 20 0 RE 85 NE 70 17 17 ME 1 PH CH 10 AR AE MA L MG CY S TA LL BL C ET TA 00 06 06 0 30 30 ME 14 GA Ac B- 90 -2 -2 0. D 44 IN ti A- 40 0- 0- 00 CA 01 EY ve 53 20 20 0 RE 86 TE 08 17 17 ME 0 PH CH TA AR AE BL MA L ET CY S LL C 00 06 06 0 30 30 ME 14 GA Ac TA 53 -2 -2 0. D 44 IN ti ME 63 0- 0- 00 CA 02 EY ve N 79 20 20 0 RE 04 D3 00 17 17 ME 1 PH CH 2, AR AE 00 MA L 0 CY S UN IT LL C SO FT GE L RO 00 06 06 0 15 30 ME 14 GA Ac BA 90 -2 -2 00 D 44 IN ti FE 40 0- 0- .0 CA 02 EY ve N- 05 20 20 00 RE 15 DM 31 17 17 ME 6 PH CH SY AR AE RU MA L P CY S LL C FE 00 06 06 0 30 30 ME 14 GA Ac RR 53 -2 -2 0. D 44 IN ti OU 61 0- 0- 00 CA 01 EY ve S 00 20 20 0 RE 81 CLARK 90 17 17 ME LF 1 PH CH AT AR AE E MA L 32 CY S 5 MG LL C TA BL ET SE 00 06 06 0 12 30 ME 14 GA Ac NN 90 -2 -2 00 D 44 IN ti A- 46 0- 0- .0 CA 02 EY ve LA 52 20 20 00 RE 03 X 26 17 17 ME 8. 1 PH CH 6 AR AE MG MA L CY S TA BL LL ET C BI 00 05 06 0 12 12 ME 14 GA Ac SC 90 -2 -1 0. D 26 IN ti OL 45 6- 2- 00 CA 89 EY ve AX 05 20 20 0 RE 53 81 17 17 ME 10 2 PH CH AR AE MG MA L CY S CLARK PP LL OS C IT OR Y LO 00 03 05 0 30 30 ME 14 GA Ac RA 78 -1 -1 0. D 21 IN ti TA 15 9- 9- 00 CA 63 EY ve DI 07 20 20 0 RE 53 NE 70 17 17 ME 1 PH CH 10 AR AE MA L MG CY S TA LL BL C ET SE 00 03 05 0 12 30 ME 14 GA Ac NN 90 -1 -1 00 D 19 IN ti A- 46 9- 6- .0 CA 54 EY ve LA 52 20 20 00 RE 69 X 26 17 17 ME 8. 1 PH CH 6 AR AE MG MA L CY S TA BL LL ET C 00 03 05 0 30 30 ME 14 GA Ac TA 90 -1 -1 0. D 19 IN ti ME 45 9- 5- 00 CA 90 EY ve N 04 20 20 0 RE 88 AN 26 17 17 ME D 0 PH CH ME AR AE NE MA L RA CY S LS LL TA C BL ET 00 03 05 0 30 30 ME 14 GA Ac PI 53 -1 -1 0. D 18 IN ti RI 61 9- 2- 00 CA 24 EY ve N 00 20 20 0 RE 73 EC 44 17 17 ME 1 PH CH 81 AR AE MA L MG CY S TA LL BL C ET ST 00 02 05 0 30 30 ME 14 GA Ac OO 53 -2 -1 0. D 18 IN ti L 61 3- 2- 00 CA 24 EY ve SO 06 20 20 0 RE 76 FT 41 17 17 ME EN 0 PH CH ER AR AE MA L 25 CY S 0 MG LL C SO FT GE L 00 03 05 0 30 30 ME 14 GA Ac TA 53 -1 -1 0. D 18 IN ti ME 63 9- 2- 00 CA 24 EY ve N 79 20 20 0 RE 82 D3 00 17 17 ME 1 PH CH 2, AR AE 00 MA L 0 CY S UN IT LL C SO FT GE L BI 00 05 05 0 15 15 ME 14 GA Ac SC 90 -1 -1 0. D 18 IN ti OL 45 0- 0- 00 CA 07 EY ve AX 05 20 20 0 RE 34 81 17 17 ME 10 2 PH CH AR AE MG MA L CY S CLARK PP LL OS C IT OR Y FE 00 03 05 0 30 30 ME 14 GA Ac RR 53 -1 -0 0. D 14 IN ti OU 61 9- 5- 00 CA 67 EY ve S 00 20 20 0 RE 52 CLARK 90 17 17 ME LF 1 PH CH AT AR AE E MA L 32 CY S 5 MG LL C TA BL ET RO 00 04 05 0 15 30 ME 14 GA Ac BA 90 -0 -0 00 D 10 IN ti FE 40 7- 5- .0 CA 68 EY ve N- 05 20 20 00 RE 31 DM 31 17 17 ME 6 PH CH SY AR AE RU MA L P CY S LL C LO 45 03 04 0 30 30 ME 14 GA Ac RA 80 -1 -2 0. D 06 IN ti TA 20 9- 0- 00 CA 95 EY ve DI 65 20 20 0 RE 55 NE 08 17 17 ME 7 PH CH 10 AR AE MA L MG CY S TA LL BL C ET SE 00 03 04 0 12 30 ME 14 GA Ac NN 90 -1 -1 00 D 05 IN ti A- 46 9- 7- .0 CA 07 EY ve LA 52 20 20 00 RE 52 X 26 17 17 ME 8. 1 PH CH 6 AR AE MG MA L CY S TA BL LL ET C ST 00 02 04 0 30 30 ME 14 GA Ac OO 53 -2 -1 0. D 03 IN ti L 61 3- 3- 00 CA 60 EY ve SO 06 20 20 0 RE 86 FT 41 17 17 ME EN 0 PH CH ER AR AE MA L 25 CY S 0 MG LL C SO FT GE L 00 03 04 0 30 30 ME 14 GA Ac TA 53 -1 -1 0. D 03 IN ti ME 63 9- 3- 00 CA 60 EY ve N 79 20 20 0 RE 88 D3 00 17 17 ME 1 PH CH 2, AR AE 00 MA L 0 CY S UN IT LL C SO FT GE L 00 03 04 0 30 30 ME 14 GA Ac PI 53 -1 -1 0. D 03 IN ti RI 61 9- 3- 00 CA 60 EY ve N 00 20 20 0 RE 85 EC 44 17 17 ME 1 PH CH 81 AR AE MA L MG CY S TA LL BL C ET RO 00 04 04 0 15 30 ME 14 GA Ac BA 90 -0 -0 00 D 02 IN ti FE 40 7- 7- .0 CA 15 EY ve N- 05 20 20 00 RE 12 DM 31 17 17 ME 6 PH CH SY AR AE RU MA L P CY S LL C 00 03 04 0 30 30 ME 14 GA Ac TA 90 -1 -0 0. D 00 IN ti ME 45 9- 7- 00 CA 93 EY ve N 04 20 20 0 RE 00 AN 26 17 17 ME D 0 PH CH ME AR AE NE MA L RA CY S LS LL TA C BL ET FE 00 03 04 0 30 30 ME 14 GA Ac RR 53 -1 -0 0. D 00 IN ti OU 61 9- 7- 00 CA 92 EY ve S 00 20 20 0 RE 98 CLARK 90 17 17 ME LF 1 PH CH AT AR AE E MA L 32 CY S 5 MG LL C TA BL ET SP 00 02 03 0 30 15 ME 13 GA Ac IR 60 -0 -3 0. D 96 IN ti ON 35 2- 0- 00 CA 66 EY ve OL 76 20 20 0 RE 65 AC 32 17 17 ME TO 1 PH CH NE AR AE MA L 25 CY S MG LL C TA BL ET LO 00 03 03 0 30 30 ME 13 GA Ac RA 78 -1 -2 0. D 92 IN ti TA 15 9- 2- 00 CA 57 EY ve DI 07 20 20 0 RE 96 NE 70 17 17 ME 1 PH CH 10 AR AE MA L MG CY S TA LL BL C ET SE 00 03 03 0 12 30 ME 13 GA Ac NN 90 -1 -2 00 D 92 IN ti A- 46 9- 0- .0 CA 14 EY ve LA 52 20 20 00 RE 20 X 26 17 17 ME 8. 1 PH CH 6 AR AE MG MA L CY S TA BL LL ET C ST 00 02 03 0 30 30 ME 13 GA Ac OO 53 -2 -1 0. D 89 IN ti L 61 3- 5- 00 CA 95 EY ve SO 06 20 20 0 RE 95 FT 41 17 17 ME EN 0 PH CH ER AR AE MA L 25 CY S 0 MG LL C SO FT GE L 00 07 03 0 30 30 ME 13 GA Ac TA 53 -2 -1 0. D 89 IN ti ME 63 5- 5- 00 CA 20 EY ve N 79 20 20 0 RE 80 D3 00 16 17 ME 1 PH CH 2, AR AE 00 MA L 0 CY S UN IT LL C SO FT GE L 00 09 03 0 30 30 ME 13 GA Ac PI 53 -1 -1 0. D 89 IN ti RI 61 9- 5- 00 CA 20 EY ve N 00 20 20 0 RE 76 EC 44 16 17 ME 1 PH CH 81 AR AE MA L MG CY S TA LL BL C ET 00 06 03 0 30 30 ME 13 GA Ac TA 90 -1 -1 0. D 86 IN ti ME 45 0- 0- 00 CA 96 EY ve N 04 20 20 0 RE 51 AN 26 16 17 ME D 0 PH CH ME AR AE NE MA L RA CY S LS LL TA C BL ET FE 00 09 03 0 30 30 ME 13 GA Ac RR 53 -1 -1 0. D 86 IN ti OU 61 9- 0- 00 CA 96 EY ve S 00 20 20 0 RE 49 CLARK 90 16 17 ME LF 1 PH CH AT AR AE E MA L 32 CY S 5 MG LL C TA BL ET LO 00 09 02 0 30 30 ME 13 GA Ac RA 78 -0 -2 0. D 77 IN ti TA 15 1- 1- 00 CA 64 EY ve DI 07 20 20 0 RE 76 NE 70 16 17 ME 1 PH CH 10 AR AE MA L MG CY S TA LL BL C ET 00 09 02 0 30 30 ME 13 GA Ac PI 53 -1 -1 0. D 74 IN ti RI 61 9- 4- 00 CA 04 EY ve N 00 20 20 0 RE 51 EC 44 16 17 ME 1 PH CH 81 AR AE MA L MG CY S TA LL BL C ET 00 07 02 0 30 30 ME 13 GA Ac TA 53 -2 -1 0. D 74 IN ti ME 63 5- 4- 00 CA 04 EY ve N 79 20 20 0 RE 52 D3 00 16 17 ME 1 PH CH 2, AR AE 00 MA L 0 CY S UN IT LL C SO FT GE L ST 00 02 02 0 30 30 ME 13 GA Ac OO 53 -2 -1 0. D 73 IN ti L 61 3- 3- 00 CA 36 EY ve SO 06 20 20 0 RE 84 FT 41 16 17 ME EN 0 PH CH ER AR AE MA L 25 CY S 0 MG LL C SO FT GE L 00 06 02 0 30 30 ME 13 GA Ac TA 90 -1 -1 0. D 72 IN ti ME 45 0- 0- 00 CA 74 EY ve N 04 20 20 0 RE 29 AN 26 16 17 ME D 0 PH CH ME AR AE NE MA L RA CY S LS LL TA C BL ET FE 00 09 02 0 30 30 ME 13 GA Ac RR 90 -1 -0 0. D 72 IN ti OU 47 9- 9- 00 CA 08 EY ve S 59 20 20 0 RE 92 CLARK 18 16 17 ME LF 0 PH CH AT AR AE E MA L 32 CY S 5 MG LL C TA BL ET SE 00 09 02 0 12 30 ME 13 GA Ac NN 90 -1 -0 00 D 71 IN ti A 46 9- 7- .0 CA 32 EY ve 8. 43 20 20 00 RE 82 6 48 16 17 ME MG 0 PH CH AR AE TA MA L BL CY S ET LL C BI 00 09 02 0 15 15 ME 13 GA Ac SC 90 -1 -0 0. D 70 IN ti OL 45 9- 6- 00 CA 96 EY ve AX 05 20 20 0 RE 91 81 16 17 ME 10 2 PH CH AR AE MG MA L CY S CLARK PP LL OS C IT OR Y LO 00 09 01 0 30 30 ME 13 GA Ac RA 78 -0 -2 0. D 63 IN ti TA 15 1- 3- 00 CA 50 EY ve DI 07 20 20 0 RE 87 NE 70 16 17 ME 1 PH CH 10 AR AE MA L MG CY S TA LL BL C ET 00 09 01 0 30 30 ME 13 GA Ac PI 53 -1 -1 0. D 59 IN ti RI 61 9- 6- 00 CA 87 EY ve N 00 20 20 0 RE 11 EC 44 16 17 ME 1 PH CH 81 AR AE MA L MG CY S TA LL BL C ET 00 07 01 0 30 30 ME 13 GA Ac TA 53 -2 -1 0. D 59 IN ti ME 63 5- 6- 00 CA 87 EY ve N 79 20 20 0 RE 12 D3 00 16 17 ME 1 PH CH 2, AR AE 00 MA L 0 CY S UN IT LL C SO FT GE L ST 00 02 01 0 30 30 ME 13 GA Ac OO 53 -2 -1 0. D 59 IN ti L 61 3- 4- 00 CA 46 EY ve SO 06 20 20 0 RE 94 FT 41 16 17 ME EN 0 PH CH ER AR AE MA L 25 CY S 0 MG LL C SO FT GE L 00 06 01 0 30 30 ME 13 GA Ac TA 90 -1 -1 0. D 59 IN ti ME 45 0- 3- 00 CA 03 EY ve N 04 20 20 0 RE 67 AN 26 16 17 ME D 0 PH CH ME AR AE NE MA L RA CY S LS LL TA C BL ET SE 00 09 01 0 12 30 ME 13 GA Ac NN 90 -1 -1 00 D 58 IN ti A- 46 9- 2- .0 CA 61 EY ve LA 52 20 20 00 RE 97 X 26 16 17 ME 8. 1 PH CH 6 AR AE MG MA L CY S TA BL LL ET C FE 00 09 01 0 30 30 ME 13 GA Ac RR 53 -1 -1 0. D 57 IN ti OU 61 9- 1- 00 CA 54 EY ve S 00 20 20 0 RE 83 CLARK 90 16 17 ME LF 1 PH CH AT AR AE E MA L 32 CY S 5 MG LL C TA BL ET 00 12 01 0 10 1 ME 13 GA Ac TA 90 -1 -1 .0 D 58 IN ti ME 40 5- 0- 00 CA 30 EY ve N 52 20 20 RE 23 C 38 16 17 ME 50 0 PH CH 0 AR AE MG MA L CY S TA BL LL ET C ZI 00 12 12 0 10 1 ME 13 GA Ac NC 90 -1 -3 .0 D 53 IN ti 43 7- 0- 00 CA 28 EY ve GL 19 20 20 RE 54 UC 16 16 16 ME ON 0 PH CH AT AR AE E MA L 50 CY S MG LL C TA BL ET LO 00 09 12 0 30 30 ME 13 GA Ac RA 78 -0 -2 0. D 50 IN ti TA 15 1- 6- 00 CA 21 EY ve DI 07 20 20 0 RE 30 NE 70 16 16 ME 1 PH CH 10 AR AE MA L MG CY S TA LL BL C ET 00 07 12 0 30 30 ME 13 GA Ac TA 53 -2 -1 0. D 45 IN ti ME 63 5- 7- 00 CA 89 EY ve N 79 20 20 0 RE 62 D3 00 16 16 ME 1 PH CH 2, AR AE 00 MA L 0 CY S UN IT LL C SO FT GE L 00 09 12 0 30 30 ME 13 GA Ac PI 53 -1 -1 0. D 45 IN ti RI 61 9- 7- 00 CA 89 EY ve N 00 20 20 0 RE 61 EC 44 16 16 ME 1 PH CH 81 AR AE MA L MG CY S TA LL BL C ET ZI 00 12 12 0 14 14 ME 13 GA Ac NC 90 -1 -1 0. D 46 IN ti 43 7- 7- 00 CA 89 EY ve GL 19 20 20 0 RE 55 UC 16 16 16 ME ON 0 PH CH AT AR AE E MA L 50 CY S MG LL C TA BL ET ST 00 02 12 0 30 30 ME 13 GA Ac OO 53 -2 -1 0. D 45 IN ti L 61 3- 6- 00 CA 28 EY ve SO 06 20 20 0 RE 42 FT 41 16 16 ME EN 0 PH CH ER AR AE MA L 25 CY S 0 MG LL C SO FT GE L 00 12 12 0 30 30 ME 13 GA Ac TA 90 -1 -1 0. D 45 IN ti ME 40 5- 5- 00 CA 69 EY ve N 52 20 20 0 RE 93 C 38 16 16 ME 50 0 PH CH 0 AR AE MG MA L CY S TA BL LL ET C SE 00 09 12 0 12 30 ME 13 GA Ac NN 90 -1 -1 00 D 46 IN ti A- 46 9- 5- .0 CA 00 EY ve LA 52 20 20 00 RE 68 X 26 16 16 ME 8. 1 PH CH 6 AR AE MG MA L CY S TA BL LL ET C 00 06 12 0 30 30 ME 13 GA Ac TA 90 -1 -1 0. D 44 IN ti ME 45 0- 4- 00 CA 20 EY ve N 04 20 20 0 RE 08 AN 26 16 16 ME D 0 PH CH ME AR AE NE MA L RA CY S LS LL TA C BL ET FE 00 09 12 0 30 30 ME 13 GA Ac RR 53 -1 -1 0. D 44 IN ti OU 61 9- 4- 00 CA 97 EY ve S 00 20 20 0 RE 74 CLARK 90 16 16 ME LF 1 PH CH AT AR AE E MA L 32 CY S 5 MG LL C TA BL ET LO 00 09 11 0 30 30 ME 13 GA Ac RA 78 -0 -2 0. D 35 IN ti TA 15 1- 8- 00 CA 75 EY ve DI 07 20 20 0 RE 27 NE 70 16 16 ME 1 PH CH 10 AR AE MA L MG CY S TA LL BL C ET BA 00 11 11 0 28 7 ME 13 GA Ac CI 16 -1 -2 3. D 36 IN ti TR 80 7- 6- 50 CA 23 EY ve AC 02 20 20 0 RE 22 IN 13 16 16 ME -P 1 PH CH OL AR AE YM MA L YX CY S IN LL OI C NT ME NT SE 00 09 11 0 12 30 ME 13 GA Ac NN 90 -1 -2 00 D 32 IN ti A- 46 9- 1- .0 CA 02 EY ve LA 52 20 20 00 RE 30 X 26 16 16 ME 8. 1 PH CH 6 AR AE MG MA L CY S TA BL LL ET C FE 00 09 11 0 30 30 ME 13 GA Ac RR 53 -1 -1 0. D 30 IN ti OU 61 9- 8- 00 CA 83 EY ve S 00 20 20 0 RE 46 CLARK 90 16 16 ME LF 1 PH CH AT AR AE E MA L 32 CY S 5 MG LL C TA BL ET 00 07 11 0 30 30 ME 13 GA Ac TA 53 -2 -1 0. D 30 IN ti ME 63 5- 8- 00 CA 83 EY ve N 79 20 20 0 RE 49 D3 00 16 16 ME 1 PH CH 2, AR AE 00 MA L 0 CY S UN IT LL C SO FT GE L 00 09 11 0 30 30 ME 13 GA Ac PI 53 -1 -1 0. D 30 IN ti RI 61 9- 8- 00 CA 83 EY ve N 00 20 20 0 RE 45 EC 44 16 16 ME 1 PH CH 81 AR AE MA L MG CY S TA LL BL C ET ST 00 02 11 0 30 30 ME 13 GA Ac OO 53 -2 -1 0. D 29 IN ti L 61 3- 7- 00 CA 93 EY ve SO 06 20 20 0 RE 73 FT 41 16 16 ME EN 0 PH CH ER AR AE MA L 25 CY S 0 MG LL C SO FT GE L BA 00 11 11 0 28 14 ME 13 GA Ac CI 16 -1 -1 3. D 31 IN ti TR 80 7- 7- 50 CA 32 EY ve AC 02 20 20 0 RE 58 IN 13 16 16 ME -P 1 PH CH OL AR AE YM MA L YX CY S IN LL OI C NT ME NT 00 06 11 0 30 30 ME 13 GA Ac TA 90 -1 -1 0. D 27 IN ti ME 45 0- 4- 00 CA 96 EY ve N 04 20 20 0 RE 19 AN 26 16 16 ME D 0 PH CH ME AR AE NE MA L RA CY S LS LL TA C BL ET LO 00 09 10 0 30 30 ME 13 GA Ac RA 78 -0 -2 0. D 19 IN ti TA 15 1- 8- 00 CA 67 EY ve DI 07 20 20 0 RE 75 NE 70 16 16 ME 1 PH CH 10 AR AE MA L MG CY S TA LL BL C ET SE 00 09 10 0 12 30 ME 13 GA Ac NN 90 -1 -2 00 D 16 IN ti A- 46 9- 2- .0 CA 73 EY ve LA 52 20 20 00 RE 99 X 26 16 16 ME 8. 1 PH CH 6 AR AE MG MA L CY S TA BL LL ET C 00 07 10 0 30 30 ME 13 GA Ac TA 53 -2 -2 0. D 16 IN ti ME 63 5- 1- 00 CA 09 EY ve N 79 20 20 0 RE 46 D3 00 16 16 ME 1 PH CH 2, AR AE 00 MA L 0 CY S UN IT LL C SO FT GE L 00 09 10 0 30 30 ME 13 GA Ac PI 53 -1 -2 0. D 15 IN ti RI 61 9- 0- 00 CA 55 EY ve N 00 20 20 0 RE 55 EC 44 16 16 ME 1 PH CH 81 AR AE MA L MG CY S TA LL BL C ET FE 00 09 10 0 30 30 ME 13 GA Ac RR 53 -1 -2 0. D 15 IN ti OU 61 9- 0- 00 CA 55 EY ve S 00 20 20 0 RE 56 CLARK 90 16 16 ME LF 1 PH CH AT AR AE E MA L 32 CY S 5 MG LL C TA BL ET ST 00 02 10 0 30 30 ME 13 GA Ac OO 53 -2 -1 0. D 14 IN ti L 61 3- 9- 00 CA 82 EY ve SO 06 20 20 0 RE 28 FT 41 16 16 ME EN 0 PH CH ER AR AE MA L 25 CY S 0 MG LL C SO FT GE L 00 11 10 0 30 30 ME 13 GA Ac TA 90 -0 -1 0. D 13 IN ti ME 45 5- 5- 00 CA 15 EY ve N 04 20 20 0 RE 57 AN 26 15 16 ME D 0 PH CH ME AR AE NE MA L RA CY S LS LL TA C BL ET LO 00 09 09 0 30 30 ME 13 GA Ac RA 78 -0 -2 0. D 03 IN ti TA 15 1- 9- 00 CA 49 EY ve DI 07 20 20 0 RE 14 NE 70 16 16 ME 1 PH CH 10 AR AE MA L MG CY S TA LL BL C ET SE 00 09 09 0 12 30 ME 13 GA Ac NN 90 -1 -2 00 D 00 IN ti A- 46 9- 3- .0 CA 42 EY ve LA 52 20 20 00 RE 47 X 26 16 16 ME 8. 1 PH CH 6 AR AE MG MA L CY S TA BL LL ET C 00 09 09 0 30 30 ME 13 GA Ac PI 53 -1 -2 0. D 00 IN ti RI 61 9- 2- 00 CA 79 EY ve N 00 20 20 0 RE 87 EC 44 16 16 ME 1 PH CH 81 AR AE MA L MG CY S TA LL BL C ET FE 00 09 09 0 30 30 ME 13 GA Ac RR 53 -1 -2 0. D 00 IN ti OU 61 9- 2- 00 CA 79 EY ve S 00 20 20 0 RE 89 CLARK 90 16 16 ME LF 1 PH CH AT AR AE E MA L 32 CY S 5 MG LL C TA BL ET 00 07 09 0 30 30 ME 12 GA Ac TA 53 -2 -2 0. D 99 IN ti ME 63 5- 1- 00 CA 05 EY ve N 79 20 20 0 RE 58 D3 00 16 16 ME 1 PH CH 2, AR AE 00 MA L 0 CY S UN IT LL C SO FT GE L ST 00 02 09 0 30 30 ME 12 GA Ac OO 53 -2 -1 0. D 97 IN ti L 61 3- 9- 00 CA 85 EY ve SO 06 20 20 0 RE 93 FT 41 16 16 ME EN 0 PH CH ER AR AE MA L 25 CY S 0 MG LL C SO FT GE L 00 11 09 0 30 30 ME 12 GA Ac TA 90 -0 -1 0. D 96 IN ti ME 45 5- 6- 00 CA 80 EY ve N 04 20 20 0 RE 50 AN 26 15 16 ME D 0 PH CH ME AR AE NE MA L RA CY S LS LL TA C BL ET LO 00 09 09 0 30 30 ME 12 GA Ac RA 78 -0 -0 0. D 90 IN ti TA 15 1- 1- 00 CA 04 EY ve DI 07 20 20 0 RE 71 NE 70 16 16 ME 1 PH CH 10 AR AE MA L MG CY S TA LL BL C ET SE 00 10 08 0 12 30 ME 12 GA Ac NN 90 -2 -2 00 D 84 IN ti A- 46 9- 5- .0 CA 88 EY ve LA 52 20 20 00 RE 51 X 26 15 16 ME 8. 1 PH CH 6 AR AE MG MA L CY S TA BL LL ET C ST 00 02 08 0 30 30 ME 12 GA Ac OO 53 -2 -2 0. D 83 IN ti L 61 3- 2- 00 CA 20 EY ve SO 06 20 20 0 RE 28 FT 41 16 16 ME EN 0 PH CH ER AR AE MA L 25 CY S 0 MG LL C SO FT GE L 00 07 08 0 30 30 ME 12 GA Ac TA 53 -2 -2 0. D 82 IN ti ME 63 5- 2- 00 CA 65 EY ve N 79 20 20 0 RE 09 D3 00 16 16 ME 1 PH CH 2, AR AE 00 MA L 0 CY S UN IT LL C SO FT GE L FE 00 10 08 0 30 30 ME 12 GA Ac RR 53 -1 -2 0. D 81 IN ti OU 61 0- 0- 00 CA 18 EY ve S 00 20 20 0 RE 40 CLARK 90 15 16 ME LF 1 PH CH AT AR AE E MA L 32 CY S 5 MG LL C TA BL ET 00 11 08 0 30 30 ME 12 GA Ac TA 90 -0 -1 0. D 79 IN ti ME 45 5- 7- 00 CA 28 EY ve N 04 20 20 0 RE 11 AN 26 15 16 ME D 0 PH CH ME AR AE NE MA L RA CY S LS LL TA C BL ET 00 10 08 0 30 30 ME 12 GA Ac PI 60 -0 -1 0. D 77 IN ti RI 30 9- 5- 00 CA 97 EY ve N 02 20 20 0 RE 73 EC 63 15 16 ME 2 PH CH 81 AR AE MA L MG CY S TA LL BL C ET MA 00 10 08 0 11 14 ME 12 GA Ac PA 90 -1 -0 20 D 74 IN ti P 41 0- 5- .0 CA 68 EY ve 50 98 20 20 00 RE 78 0 86 15 16 ME MG 1 PH CH AR AE TA MA L BL CY S ET LL C 00 07 07 0 30 30 ME 12 GA Ac TA 90 -2 -2 0. D 70 IN ti ME 40 8- 8- 00 CA 32 EY ve N 52 20 20 0 RE 12 C 38 16 16 ME 50 0 PH CH 0 AR AE MG MA L CY S TA BL LL ET C SE 00 10 07 0 12 30 ME 12 GA Ac NN 90 -2 -2 00 D 68 IN ti A- 46 9- 6- .0 CA 52 EY ve LA 52 20 20 00 RE 91 X 26 15 16 ME 8. 1 PH CH 6 AR AE MG MA L CY S TA BL LL ET C 00 07 07 0 30 30 ME 12 GA Ac TA 53 -2 -2 0. D 69 IN ti ME 63 5- 5- 00 CA 13 EY ve N 79 20 20 0 RE 18 D3 00 16 16 ME 1 PH CH 2, AR AE 00 MA L 0 CY S UN IT LL C SO FT GE L FE 00 10 07 0 30 30 ME 12 GA Ac RO 90 -1 -2 0. D 67 IN ti CLARK 47 0- 2- 00 CA 26 EY ve L 59 20 20 0 RE 65 32 08 15 16 ME 5 2 PH CH MG AR AE MA L TA CY S BL ET LL C BI 00 03 07 0 15 15 ME 12 GA Ac SC 90 -1 -1 0. D 66 IN ti OL 45 0- 8- 00 CA 34 EY ve AX 05 20 20 0 RE 86 86 16 16 ME 10 0 PH CH AR AE MG MA L CY S CLARK PP LL OS C IT OR Y 00 11 07 0 30 30 ME 12 GA Ac TA 90 -0 -1 0. D 65 IN ti ME 45 5- 8- 00 CA 97 EY ve N 04 20 20 0 RE 60 AN 26 15 16 ME D 0 PH CH ME AR AE NE MA L RA CY S LS LL TA C BL ET 00 10 07 0 30 30 ME 12 GA Ac PI 60 -0 -1 0. D 65 IN ti RI 30 9- 6- 00 CA 73 EY ve N 02 20 20 0 RE 27 EC 63 15 16 ME 2 PH CH 81 AR AE MA L MG CY S TA LL BL C ET ST 00 02 07 0 30 30 ME 12 GA Ac OO 53 -2 -1 0. D 63 IN ti L 61 3- 1- 00 CA 34 EY ve SO 06 20 20 0 RE 73 FT 41 16 16 ME EN 0 PH CH ER AR AE MA L 25 CY S 0 MG LL C SO FT GE L SE 00 10 06 0 12 30 ME 12 GA Ac NN 90 -2 -2 00 D 58 IN ti A- 46 9- 7- .0 CA 07 EY ve LA 52 20 20 00 RE 66 X 26 15 16 ME 8. 1 PH CH 6 AR AE MG MA L CY S TA BL LL ET C FE 00 10 06 0 30 30 ME 12 GA Ac RO 90 -1 -2 0. D 56 IN ti CLARK 47 0- 2- 00 CA 63 EY ve L 59 20 20 0 RE 47 32 08 15 16 ME 5 2 PH CH MG AR AE MA L TA CY S BL ET LL C 00 11 06 0 30 30 ME 12 GA Ac TA 90 -0 -1 0. D 55 IN ti ME 45 5- 8- 00 CA 21 EY ve N 04 20 20 0 RE 00 AN 26 15 16 ME D 0 PH CH ME AR AE NE MA L RA CY S LS LL TA C BL ET 00 10 06 0 30 30 ME 12 GA Ac PI 60 -0 -1 0. D 54 IN ti RI 30 9- 7- 00 CA 90 EY ve N 02 20 20 0 RE 56 EC 63 15 16 ME 2 PH CH 81 AR AE MA L MG CY S TA LL BL C ET BI 00 03 06 0 15 15 ME 12 GA Ac SC 90 -1 -1 0. D 55 IN ti OL 45 0- 7- 00 CA 42 EY ve AX 05 20 20 0 RE 04 86 16 16 ME 10 0 PH CH AR AE MG MA L CY S CLARK PP LL OS C IT OR Y ST 00 02 06 0 30 30 ME 12 GA Ac OO 53 -2 -1 0. D 53 IN ti L 61 3- 3- 00 CA 62 EY ve SO 06 20 20 0 RE 57 FT 41 16 16 ME EN 0 PH CH ER AR AE MA L 25 CY S 0 MG LL C SO FT GE L SE 00 10 05 0 12 30 ME 12 GA Ac NN 90 -2 -2 00 D 48 IN ti A 45 9- 8- .0 CA 35 EY ve 8. 16 20 20 00 RE 71 6 56 15 16 ME MG 1 PH CH AR AE TA MA L BL CY S ET LL C FE 00 10 05 0 30 30 ME 12 GA Ac RO 90 -1 -2 0. D 45 IN ti CLARK 47 0- 3- 00 CA 78 EY ve L 59 20 20 0 RE 37 32 08 15 16 ME 5 2 PH CH MG AR AE MA L TA CY S BL ET LL C BI 00 03 05 0 15 15 ME 12 GA Ac SC 90 -1 -2 0. D 46 IN ti OL 45 0- 1- 00 CA 12 EY ve AX 05 20 20 0 RE 33 86 16 16 ME 10 0 PH CH AR AE MG MA L CY S CLARK PP LL OS C IT OR Y 00 11 05 0 30 30 ME 12 GA Ac TA 90 -0 -2 0. D 45 IN ti ME 45 5- 0- 00 CA 09 EY ve N 04 20 20 0 RE 35 AN 26 15 16 ME D 0 PH CH ME AR AE NE MA L RA CY S LS LL TA C BL ET 00 10 05 0 30 30 ME 12 GA Ac PI 60 -0 -1 0. D 44 IN ti RI 30 9- 8- 00 CA 30 EY ve N 02 20 20 0 RE 82 EC 63 15 16 ME 2 PH CH 81 AR AE MA L MG CY S TA LL BL C ET TR 45 05 05 0 85 15 ME 12 GA Ac OL 80 -1 -1 0. D 44 IN ti AM 20 7- 7- 00 CA 21 EY ve IN 35 20 20 0 RE 63 E 65 16 16 ME SA 3 PH CH LI AR AE CY MA L LA CY S TE LL 10 C % CR EA M ST 00 02 05 0 30 30 ME 12 GA Ac OO 53 -2 -1 0. D 42 IN ti L 61 3- 3- 00 CA 78 EY ve SO 06 20 20 0 RE 12 FT 41 16 16 ME EN 0 PH CH ER AR AE MA L 25 CY S 0 MG LL C SO FT GE L SE 00 10 04 0 12 30 ME 12 GA Ac NN 90 -2 -2 00 D 38 IN ti A 45 9- 9- .0 CA 00 EY ve 8. 16 20 20 00 RE 41 6 56 15 16 ME MG 1 PH CH AR AE TA MA L BL CY S ET LL C FE 00 10 04 0 30 30 ME 12 GA Ac RO 90 -1 -2 0. D 36 IN ti CLARK 47 0- 5- 00 CA 33 EY ve L 59 20 20 0 RE 19 32 08 15 16 ME 5 2 PH CH MG AR AE MA L TA CY S BL ET LL C 00 11 04 0 30 30 ME 12 GA Ac TA 90 -0 -2 0. D 34 IN ti ME 45 5- 1- 00 CA 77 EY ve N 04 20 20 0 RE 79 AN 26 15 16 ME D 0 PH CH ME AR AE NE MA L RA CY S LS LL TA C BL ET 00 10 04 0 30 30 ME 12 GA Ac PI 60 -0 -1 0. D 33 IN ti RI 30 9- 8- 00 CA 77 EY ve N 02 20 20 0 RE 74 EC 63 15 16 ME 2 PH CH 81 AR AE MA L MG CY S TA LL BL C ET ST 00 02 04 0 30 30 ME 12 GA Ac OO 53 -2 -1 0. D 33 IN ti L 61 3- 5- 00 CA 32 EY ve SO 06 20 20 0 RE 30 FT 41 16 16 ME EN 0 PH CH ER AR AE MA L 25 CY S 0 MG LL C SO FT GE L SE 00 10 03 0 12 30 ME 12 GA Ac NN 90 -2 -3 00 D 27 IN ti A 45 9- 0- .0 CA 50 EY ve 8. 16 20 20 00 RE 78 6 56 15 16 ME MG 1 PH CH AR AE TA MA L BL CY S ET LL C FE 00 10 03 0 30 30 ME 12 GA Ac RO 90 -1 -2 0. D 27 IN ti CLARK 47 0- 9- 00 CA 31 EY ve L 59 20 20 0 RE 11 32 08 15 16 ME 5 2 PH CH MG AR AE MA L TA CY S BL ET LL C 00 11 03 0 30 30 ME 12 GA Ac TA 90 -0 -2 0. D 26 IN ti ME 45 5- 4- 00 CA 13 EY ve N 04 20 20 0 RE 04 AN 26 15 16 ME D 0 PH CH ME AR AE NE MA L RA CY S LS LL TA C BL ET ST 00 02 03 0 30 30 ME 12 GA Ac OO 53 -2 -2 0. D 24 IN ti L 61 3- 2- 00 CA 91 EY ve SO 06 20 20 0 RE 08 FT 41 16 16 ME EN 0 PH CH ER AR AE MA L 25 CY S 0 MG LL C SO FT GE L 00 10 03 0 30 30 ME 12 GA Ac PI 60 -0 -2 0. D 25 IN ti RI 30 9- 1- 00 CA 14 EY ve N 02 20 20 0 RE 48 EC 63 15 16 ME 2 PH CH 81 AR AE MA L MG CY S TA LL BL C ET BI 00 03 03 0 15 15 ME 12 GA Ac SC 90 -1 -1 0. D 21 IN ti OL 45 0- 0- 00 CA 54 EY ve AX 05 20 20 0 RE 70 86 16 16 ME 10 0 PH CH AR AE MG MA L CY S CLARK PP LL OS C IT OR Y SE 00 10 02 0 12 30 ME 12 GA Ac NN 90 -2 -2 00 D 17 IN ti A 45 9- 9- .0 CA 54 EY ve 8. 16 20 20 00 RE 30 6 56 15 16 ME MG 1 PH CH AR AE TA MA L BL CY S ET LL C FE 00 10 02 0 30 30 ME 12 GA Ac RO 90 -1 -2 0. D 17 IN ti CLARK 47 0- 9- 00 CA 54 EY ve L 59 20 20 0 RE 28 32 08 15 16 ME 5 2 PH CH MG AR AE MA L TA CY S BL ET LL C 00 10 02 0 30 30 ME 12 GA Ac PI 60 -0 -2 0. D 16 IN ti RI 30 9- 6- 00 CA 76 EY ve N 02 20 20 0 RE 41 EC 63 15 16 ME 2 PH CH 81 AR AE MA L MG CY S TA LL BL C ET 00 11 02 0 30 30 ME 12 GA Ac TA 90 -0 -2 0. D 16 IN ti ME 45 5- 6- 00 CA 76 EY ve N 04 20 20 0 RE 44 AN 26 15 16 ME D 0 PH CH ME AR AE NE MA L RA CY S LS LL TA C BL ET ST 00 02 02 0 30 30 ME 12 GA Ac OO 53 -2 -2 0. D 16 IN ti L 61 3- 3- 00 CA 16 EY ve SO 06 20 20 0 RE 99 FT 41 16 16 ME EN 0 PH CH ER AR AE MA L 25 CY S 0 MG LL C SO FT GE L NO 64 02 02 0 30 5 ME 12 GA Ac RM 25 -1 -1 00 D 14 IN ti AL 30 9- 9- .0 CA 72 EY ve 11 20 20 00 RE 74 SA 13 16 16 ME LI 0 PH CH NE AR AE MA L FL CY S US H LL SY C RI NG E HE 64 02 02 0 10 5 ME 12 GA Ac PA 25 -1 -1 00 D 14 IN ti RI 30 9- 9- .0 CA 72 EY ve N 33 20 20 00 RE 75 50 33 16 16 ME 0 5 PH CH UN AR AE IT MA L /5 CY S ML LL C (1 00 /M L) NI 00 10 10 0 30 1 ME 11 GA Ac TR 28 -0 -0 0. D 70 IN ti O- 10 2- 2- 00 CA 90 EY ve BI 32 20 20 0 RE 44 D 63 15 15 ME 2% 0 PH CH AR AE OI MA L NT CY S ME NT LL C MO 00 10 10 0 30 15 ME 11 GA Ac RP 40 -0 -0 0. D 70 IN ti HI 68 1- 1- 00 CA 82 EY ve NE 31 20 20 0 RE 36 50 15 15 ME CLARK 1 PH CH LF AR AE MA L ER CY S 15 LL C MG TA BL ET NO 00 10 10 0 10 15 ME 11 GA Ac VO 16 -0 -0 00 D 70 IN ti FI 91 1- 1- .0 CA 82 EY ve NE 85 20 20 00 RE 35 27 15 15 ME AU 5 PH CH TO AR AE CO MA L VE CY S R 30 LL G C NE ED LE MA 00 09 09 0 19 3 ME 11 GA Ac PA 90 -1 -2 0. D 69 IN ti P 41 1- 8- 00 CA 64 EY ve 50 98 20 20 0 RE 31 0 86 15 15 ME MG 1 PH CH AR AE TA MA L BL CY S ET LL C FE 00 09 09 0 30 30 ME 11 GA Ac RR 60 -1 -1 0. D 66 IN ti OU 30 7- 7- 00 CA 15 EY ve S 17 20 20 0 RE 57 CLARK 92 15 15 ME LF 9 PH CH AT AR AE E MA L 32 CY S 5 MG LL C TA BL ET 00 09 09 0 13 13 ME 11 GA Ac TA 90 -1 -1 0. D 66 IN ti ME 45 7- 7- 00 CA 15 EY ve N 04 20 20 0 RE 56 AN 26 15 15 ME D 0 PH CH ME AR AE NE MA L RA CY S LS LL TA C BL ET 63 09 09 0 20 20 ME 11 GA Ac PI 73 -1 -1 0. D 64 IN ti RI 90 1- 1- 00 CA 99 EY ve N 43 20 20 0 RE 10 81 40 15 15 ME 1 PH CH MG AR AE MA L CH CY S EW AB LL LE C TA BL ET CA 68 03 09 0 18 90 WA 73 SM Ac RV 46 -1 -0 00 L- 69 IT ti ED 20 0- 3- .0 MA 55 H ve IL 16 20 20 00 RT 9 ME OL 50 15 15 KE 5 PH [...] -0 -0 0. L- 67 RS ti ME 96 4- 3- 00 MA 45 ON [...] 15 15 EU E 5 PH GO IA AR ND OP MA A CY F 50 # MC 10 G 05 SP 91 RA Y CL 16 03 08 7 30 30 KM 68 SM Ac OP 72 -1 -1 0. AR 59 IT ti ID 90 0- 2- 00 T 40 H ve OG 21 20 20 0 PH 5 ME RE 81 15 15 AR KE L 5 MA L 75 CY D # MG 48 TA 47 BL ET LE 00 12 08 11 15 30 KM 68 PA Ac VE 16 -0 -0 0. AR 56 RS ti ME 96 4- 5- 00 T 02 ON ve R 43 20 20 0 PH 1 S FL 81 14 15 AR JE EX 0 MA RE TO CY MY UC # C H 10 48 0 47 UN IT S/ ML AT 00 04 08 4 30 30 KM 68 SM Ac OR 37 -0 -0 0. AR 59 IT ti VA 83 7- 4- 00 [address] 95 20 20 0 PH 7 ME AT 37 15 15 AR KE IN 7 MA L CY D 80 # MG 48 47 TA BL ET FU 00 10 08 11 60 30 KM 68 PA Ac RO 37 -0 -0 0. AR 54 RS ti SE 80 6- 4- 00 T 23 ON ve ME 21 20 20 0 PH 7 S DE 61 14 15 AR JE 0 MA RE 40 CY MY # C MG 48 TA 47 BL ET IA 59 04 07 11 85 17 KM [...] 6- 8- 00 T 23 ON ve ME 21 20 20 0 PH 7 S DE 61 14 15 AR JE 0 MA RE 40 CY MY # C MG 48 TA 47 BL ET AT 00 04 07 4 30 30 KM 68 SM Ac OR 37 -0 -0 0. AR 59 IT ti VA 83 7- 8- 00 T [address] 95 20 20 0 PH 7 ME AT 37 15 15 AR KE IN 7 MA L CY D 80 # MG 48 47 TA BL ET CL 16 03 07 7 30 30 KM 68 SM Ac OP 72 -1 -0 0. AR 59 IT ti ID 90 0- 8- 00 T 40 H ve OG 21 20 20 0 PH 5 ME RE 81 15 15 AR KE L 5 MA L 75 CY D # MG 48 TA 47 BL ET LE 00 12 06 11 15 30 KM 68 PA Ac VE 16 -0 -2 0. AR 56 RS ti ME 96 4- 9- 00 T 02 ON [...] MG TA BL ET FU 00 10 06 11 60 30 KM 68 PA Ac RO 37 -0 -0 0. AR 54 RS ti SE 80 6- 3- 00 T 23 ON ve ME 21 20 20 0 PH 7 S DE 61 14 15 AR JE 0 MA RE 40 CY MY # C MG 48 TA 47 BL ET CL 16 03 06 7 30 30 KM 68 SM Ac OP 72 -1 -0 0. AR 59 IT ti ID 90 0- 3- 00 T 40 H ve OG 21 20 20 0 PH 5 ME RE 81 15 15 AR KE L 5 MA L 75 CY D # MG 48 TA 47 BL ET AT 00 04 06 4 30 30 KM 68 SM Ac OR 37 -0 -0 0. AR 59 IT ti VA 83 7- 3- 00 T [address] 95 20 20 0 PH 7 ME AT 37 15 15 AR KE IN 7 MA L CY D 80 # MG 48 47 TA BL ET LY 00 04 05 2 [...] ND 47 L 8M MX 31 G HY 53 04 05 0 12 30 KM [address] 74 -2 -0 00 AR 17 RS ti OC 60 8- 7- .0 T 29 ON ve OD 11 20 20 00 PH 8 S ON 00 15 15 AR JE -A 5 MA RE CE CY MY TA # C ME NO 48 PH 47 N 10 -3 25 MO 42 04 05 0 60 30 KM 22 PA Ac RP 85 -2 -0 0. AR 17 RS ti HI 80 8- 7- 00 T 29 ON ve NE 80 20 20 0 PH 7 S 10 15 15 AR JE CLARK 1 MA RE LF CY MY # C ER 48 15 47 MG TA BL ET CLARK 53 04 05 1 20 10 [...] 6- 4- 00 T 23 ON ve ME 21 20 20 0 PH 7 S DE 61 14 15 AR JE 0 MA RE 40 CY MY # C MG 48 TA 47 BL ET AT 00 04 05 4 30 30 KM 68 SM Ac OR 37 -0 -0 0. AR 59 IT ti VA 83 7- 4- 00 [address] 95 20 20 0 PH 7 ME AT 37 15 15 AR KE IN 7 MA L CY D 80 # MG 48 47 TA BL ET CL 16 03 05 7 30 30 KM 68 SM Ac OP 72 -1 -0 0. AR 59 IT ti ID 90 0- 4- 00 T 40 H ve OG 21 20 20 0 PH 5 ME RE 81 15 15 AR KE L 5 MA L 75 CY D # MG 48 TA 47 BL ET RO 43 03 05 1 60 30 KM 68 SM Ac PI 54 -1 -0 0. AR 59 IT ti NI 70 0- 4- 00 T 40 H ve RO 27 20 20 0 PH 6 ME LE 11 15 15 AR KE 0 [...] C CA PS 48 UL 47 E IA 59 04 04 11 85 17 KM [...] PH 1 1 01 15 15 AR ME 4 MA CH GM CY AE /1 [...] OG 21 20 20 0 PH 5 ME RE 81 15 15 AR KE L 5 MA L 75 CY D # MG 48 TA 47 BL ET RO 43 03 04 1 60 30 KM 68 SM Ac PI 54 -1 -0 0. AR 59 IT ti NI 70 0- 7- 00 T 40 H ve RO 27 20 20 0 PH 6 ME LE 11 15 15 AR KE 0 MA L HC CY D L # 2 MG 48 47 TA BL ET AT 00 04 04 4 30 30 KM 68 SM Ac OR 37 -0 -0 0. AR 59 IT ti VA 83 7- 7- [address] 95 20 20 0 PH 7 ME AT 37 15 15 AR KE IN [...] 48 15 47 MG TA BL ET NO 00 03 03 1 15 62 KE 52 SM Ac VO 16 -1 -1 0. NT 60 IT ti LO 96 0- 0- 00 UC 92 H ve G 33 20 20 0 [place] 71 ME 10 91 15 15 7 KE 0 0 CL L UN IN D IT IC S/ ML PH AR FL MA EX CY PE N AT 60 03 03 1 30 30 KE 52 SM Ac OR 50 -1 -1 0. NT 60 IT ti VA 52 0- 0- 00 [place] [address] 67 20 20 0 [place] 72 ME AT 10 15 15 0 KE IN 9 CL L IN D 80 IC MG PH AR TA MA BL CY ET CA 68 03 03 1 18 90 KE 52 SM Ac RV 38 -1 -1 00 NT 60 IT ti ED 20 0- 0- .0 UC 92 H ve IL 09 20 20 00 [place] 72 ME OL 50 15 15 2 KE 5 CL L 25 IN D IC MG PH TA AR BL MA ET CY LY 00 03 03 0 90 30 KE 52 SM Ac RI 07 -1 -1 0. NT 40 IT ti CA 11 0- 0- 00 UC 01 H ve 01 20 20 0 [place] 38 ME 50 36 15 15 2 KE 8 CL L MG IN D IC CA PS PH UL AR E MA CY LI 00 03 03 1 90 90 KE 52 SM Ac SI 17 -1 -1 0. NT 60 IT ti NO 23 0- 0- 00 UC 92 H ve IA 75 20 20 0 [place] 71 ME IL 98 15 15 6 KE 0 CL L 10 IN D IC MG PH TA AR BL MA ET CY LE 00 03 03 1 15 83 KE 52 SM Ac VE 16 -1 -1 0. NT 60 IT ti ME 96 0- 0- 00 UC 92 H ve R 43 20 20 0 [place] 71 ME FL 81 15 15 8 KE EX 0 CL L TO IN D UC IC H 10 PH 0 AR UN MA IT CY S/ ML AM 00 03 03 0 40 8 KE 52 SM Ac IT 60 -1 -1 .0 NT 60 IT ti RI 32 0- 0- 00 UC 92 H ve PT 21 20 20 [place] 71 ME YL 32 15 15 3 KE IN 1 CL L E IN D HC IC L 25 PH AR MG MA CY TA B RO 23 03 03 0 60 30 KE 52 SM Ac PI 15 -1 -1 0. NT 60 IT ti NI 50 0- 0- 00 UC 92 H ve RO 12 20 20 0 [place] 71 ME LE 40 15 15 2 KE 1 CL L HC IN D L IC 2 MG PH AR TA MA BL CY ET ON 53 03 03 1 10 25 KE 52 SM Ac ET 88 -1 -1 00 NT 60 IT ti OU 50 0- 0- .0 UC 92 H ve CH 24 20 20 00 [place] 73 ME 51 15 15 0 KE UL 0 CL L TR IN D A IC TE ST PH AR ST MA RI CY PS ON 53 03 03 1 10 30 KE 52 SM Ac ET 88 -1 -1 00 NT 60 IT ti OU 50 0- 0- .0 UC 92 H ve CH 14 20 20 00 [place] 72 ME 30 15 15 9 KE DE 1 CL L LI IN D CA IC 33 PH G AR LA MA NC CY ET S CL 55 03 03 2 30 30 KE 52 SM Ac OP 11 -1 -1 0. NT 60 IT ti ID 10 0- 0- 00 UC 92 H ve OG 19 20 20 0 [place] 71 ME RE 69 15 15 9 KE L 0 CL L 75 IN D IC MG PH TA AR BL MA ET CY ON 53 03 03 0 10 30 KE 52 SM Ac ET 88 -1 -1 .0 NT 60 IT ti OU 50 0- 0- 00 UC 92 H ve CH 44 20 20 [place] 72 ME 80 15 15 1 KE UL 1 CL L TR IN D A2 IC GL PH UC AR OS MA E CY SY ST 00 03 03 1 90 90 KE 52 SM Ac PI 60 -1 -1 0. NT 60 IT ti RI 30 0- 0- 00 UC 92 H ve N 02 20 20 0 [place] 71 ME EC 62 15 15 4 KE 2 CL L 81 IN D IC MG PH TA AR BL MA ET CY FU 00 10 03 11 60 30 KM 68 PA Ac RO 37 -0 -0 0. AR 54 RS ti SE 80 6- 7- 00 T 23 ON ve ME 21 20 20 0 PH 7 S [...] 69 20 20 0 PH 7 S ME 61 14 15 AR KE X 9 [...] MG TA BL ET AM 00 12 01 5 [...] 54 RS ti SE 80 6- 8- T 23 ON ve ME 21 20 20 0 PH 7 S DE 61 14 15 AR JE 0 MA RE 40 CY MY # C MG 48 TA 47 BL ET RO 23 09 01 11 [...] 11 60 30 KM 68 PA Ac IA 18 -0 -2 0. AR 53 RS ti OL 61 5- 8- T 27 ON ve 09 20 20 [...] 56 RS ti RI 32 4- 1- T 02 ON ve PT 21 20 20 0 PH 2 S YL 43 14 14 AR JE IN 2 MA RE E CY MY HC # C L 50 48 47 MG TA B GA 67 12 12 0 90 30 KM 68 BU Ac BA 87 -3 -3 0. AR 56 RG ti PE 70 1- - T 77 ES ve NT 22 20 [...] # C NT ME 48 NT 47 FU 00 10 12 11 60 30 KM 68 PA Ac RO 37 -0 -1 0. AR 54 RS ti SE 80 6- 7- 00 T 23 ON ve ME 21 20 20 0 PH 7 S DE 61 14 14 AR JE 0 MA RE 40 CY MY # C MG 48 TA 47 BL ET PO 00 10 12 11 60 30 [...] 11 60 30 KM 68 PA Ac IA 18 -0 -1 0. AR 53 RS [...] 11 60 30 KM 68 PA Ac IA 18 -0 -1 0. AR 53 RS [...] 6- 1- 00 T 23 ON ve ME 29 20 20 0 PH 7 S [...] MG TA BL ET AM 00 04 10 5 30 30 KM 68 LE Ac IT 60 -1 -2 0. AR 49 SL ti RI 32 8- 9- 00 T 56 IE ve PT 21 20 20 0 PH 3 YL 43 14 14 AR WI IN 2 MA LM E CY A HC # L 50 48 47 MG TA B GA 67 10 10 0 90 30 KM 68 BU Ac BA 87 -2 -2 0. AR 55 RG ti PE 70 9- 9- 00 T 00 ES ve NT 22 20 20 0 PH 4 S IN 30 14 14 AR KE 1 MA LL 30 CY Y 0 # MG 48 CA 47 PS UL E TO 00 09 10 11 60 30 KM 68 PA Ac IA 18 -0 -0 0. AR 53 RS [...] 6- 6- 00 T 23 ON ve ME 29 20 20 0 PH 7 S [...] 47 MG TA B FU 00 03 09 5 30 30 KM 68 BU Ac RO 05 -0 -1 0. AR 48 RG ti SE 44 5- 7- 00 T 24 ES ve ME 29 20 20 0 PH 4 S DE 93 14 14 AR KE 1 MA LL 40 CY Y # MG 48 TA 47 BL ET GA 67 03 09 5 90 30 KM 68 BU Ac BA 87 -0 -1 0. AR 48 RG ti PE 70 5- 7- 00 T 24 ES ve NT 22 20 20 0 PH 5 S IN 30 14 14 AR KE 5 MA LL 30 CY Y 0 # MG 48 CA 47 PS UL E RO 23 09 09 11 30 30 [...] 11 60 30 KM 68 PA Ac IA 18 -0 -0 0. AR 53 RS [...] MG TA BL ET AM 00 04 08 5 30 30 KM 68 LE Ac IT 37 -1 -1 0. AR 49 SL ti RI 82 8- 1- 00 T 56 IE ve PT 65 20 20 0 PH 3 YL 00 14 14 AR WI IN 1 MA LM E CY A HC # L 50 48 47 MG TA B FU 00 03 08 5 30 30 KM 68 BU Ac RO 37 -0 -1 0. AR 48 RG ti SE 80 5- 1- 00 T 24 ES ve ME 21 20 20 0 PH 4 S [...] CA 47 PS UL E MU 45 08 08 5 22 10 [...] TE ST [address] RI PS IA 59 06 07 11 85 25 KM [...] -1 -1 0. AR 48 LL ti IA 80 9- 5- 00 T 97 ve [...] 69 20 20 0 PH 7 S ME 61 14 14 AR KE X 9 MA LL 70 CY Y -3 # 0 FL 48 EX 47 PE N SY RN DI 00 07 07 0 30 7 [...] NT PH ME AR NT MA CY CL 08 07 07 5 10 30 [...] MY C PH AR MA CY MO 42 06 06 0 [...] 5- 0- 00 T 24 ES ve ME 21 20 20 0 PH 4 S [...] 4 MG 48 47 TA BL ET IA 59 06 06 11 85 25 KM 68 PA Ac OA 31 -1 -1 .0 AR 51 RS ti IR 00 1 6- 00 T 09 ON ve 57 20 20 PH 4 S HF 92 14 14 AR JE A 2 MA RE 90 CY MY # C MC G 48 IN 47 CASTELAN LE R ME 00 09 06 6 60 30 KM 68 CASTELAN Ac TO 37 -1 -0 0. AR 48 LL ti IA 80 9- 9- 00 T 97 ve OL 03 20 20 0 PH 4 DE OL 21 13 14 AR BR 0 MA A TA CY K RT # RA TE 48 47 50 MG TA B NO 00 03 06 11 15 30 KM 68 BU Ac VO 16 -0 -0 0. AR 48 RG ti LO 93 5- 3- 00 T 24 ES ve G 69 20 20 0 PH 7 S ME 61 14 14 AR KE X 9 MA LL 70 CY Y -3 # 0 FL 48 EX 47 PE N SY RN AT 00 03 05 2 30 30 [...] 47 RG ti NI 50 9- 1- 00 T 34 ES ve RO 12 20 20 0 PH 5 S LE 60 14 14 AR KE 1 MA LL HC CY Y L # 4 MG 48 47 TA BL ET TI 57 01 05 3 90 30 KM 68 BU Ac ZA 66 -2 -2 0. AR 47 RG ti NI 40 9- 1- 00 T 34 ES ve DI 50 20 20 0 PH 6 S NE 38 14 14 AR KE 9 MA LL HC CY Y L # 4 MG 48 47 TA BL ET FU 00 03 05 5 30 30 KM 68 BU Ac RO 37 -0 -2 0. AR 48 RG ti SE 80 5- 1- 00 T 24 ES ve ME 21 20 20 0 PH 4 S DE 61 14 14 AR KE 0 MA LL 40 CY Y # MG 48 TA 47 BL ET EN 00 03 05 5 60 30 KM 68 BU Ac AL 09 -0 -2 0. AR 48 RG ti AP 30 5- 1- 00 T 24 ES ve RI 02 [...] 47 PS UL E AM 00 04 05 5 30 30 [...] 69 20 20 0 PH 7 S ME 61 14 14 AR KE X 9 MA LL 70 CY Y -3 # 0 FL 48 EX 47 PE N SY RN ME 00 09 05 6 60 30 KM 68 CASTELAN Ac TO 37 -1 -0 0. AR 48 LL ti IA 80 9- 5- 00 T 97 ve [...] 5- 2- 00 T 24 ES ve ME 21 20 20 0 PH 4 S [...] 5 IN RA CE IC J TA ME PH NO AR PH MA N CY [...] -1 -2 0. AR 48 LL ti IA 80 9- 7- 00 T 97 ve [...] 5 IN RA CE IC J TA ME PH NO AR PH MA N CY 10 -3 25 AM 00 03 03 5 30 30 [...] 5- 5- 00 T 24 ES ve ME 21 20 20 0 PH 4 S [...] ML 48 47 FL EX PE N EN 00 03 03 5 60 30 [...] CA 47 PS UL E AM 00 02 02 0 30 10 CASTELAN 57 PA Ac OX 78 -2 -2 0. RO 20 RS ti IC 12 1- - 00 LD 72 ON ve IL 61 20 20 0 S LI 30 14 14 CL JE N 5 IN RE 50 IC MY 0 C MG PH AR CA MA PS CY UL E BE 67 02 02 0 30 10 CASTELAN 57 PA Ac NZ 87 -2 -2 0. RO 20 RS ti ON 70 LD 73 ON ve AT 10 20 20 0 S AT 50 14 14 CL JE E 5 IN RE 10 IC MY 0 C MG PH AR CA MA PS CY UL E HY 00 02 02 0 12 30 CASTELAN [address] 59 -2 -2 00 RO 20 RS ti OC 12 1- 1- .0 LD 65 ON ve OD 61 20 20 00 S ON 20 14 14 CL JE -A 5 IN RE CE IC MY TA C ME PH NO AR PH MA N CY 10 -3 25 MO 00 02 02 0 60 30 CASTELAN 57 PA Ac RP 40 -2 -2 0. RO 20 RS ti HI 68 1- 00 LD 66 ON ve NE 31 20 20 0 S 50 14 14 CL JE CLARK 1 IN RE LF IC MY C ER PH AR 15 MA CY MG TA BL ET AT 00 09 02 5 30 30 [...] 69 20 20 0 PH 2 S ME 61 13 14 AR JE X 9 MA RE 70 CY MY -3 # C 0 FL 48 EX 47 PE N SY RN AM 00 07 02 5 60 30 KM 68 PA Ac IT 60 -0 -0 0. AR 41 RS ti RI 32 5- 6- T 93 ON ve PT 21 20 20 0 PH 4 S YL 42 13 14 AR JE IN 1 MA RE E CY MY HC # C L 50 48 47 MG TA B 00 02 02 0 90 30 KM 44 MA Ac 40 -0 -0 0. AR 53 LI ti 60 6- 6- 00 T 41 K ve 36 20 [...] 0. AR 47 RG ti NI 50 9 9 T 34 ES ve RO 12 20 20 0 PH 5 S LE 60 14 14 AR KE 1 MA LL HC CY Y L # 4 MG 48 47 TA BL ET TI 57 01 01 3 90 30 KM 68 BU Ac ZA 66 -2 -2 0. AR 47 RG ti NI 40 9 9- T 34 ES ve DI 50 20 20 0 PH 6 S NE 38 14 14 AR KE 9 MA LL HC CY Y L # 4 MG 48 47 TA BL ET FU 00 07 01 5 30 30 KM 68 PA Ac RO 37 -0 -2 0. AR 41 RS ti SE 80 5 9 T 93 ON ve ME 21 20 20 0 PH 2 S DE 61 13 14 AR JE 0 MA RE 40 CY MY # C MG 48 TA 47 BL ET ME 00 09 01 11 60 30 KM 68 PA Ac TO 37 -1 -2 0. AR 43 RS ti IA 80 9- 9- T 88 ON ve OL 03 20 20 0 PH 2 S OL 21 13 14 AR JE 0 MA RE TA CY MY RT # C RA TE 48 47 50 MG TA B GA 67 09 01 11 90 30 KM 68 PA Ac BA 87 -2 -2 0. AR 44 RS ti PE 70 5- 9- T 06 ON ve NT 22 20 20 0 PH 0 S IN 30 13 14 AR JE 5 MA RE 30 CY MY 0 # C MG 48 CA 47 PS UL E EN 00 07 01 5 60 30 KM 68 PA Ac AL 09 -0 -2 0. AR 41 RS ti AP 30 5- 9- 00 T 93 ON ve RI 02 20 20 0 PH 6 S L 80 13 14 AR JE MA 1 MA RE LE CY MY AT # C E 10 48 47 MG TA B AT 00 09 01 5 30 30 KM 68 PA Ac OR 37 -1 -1 0. AR 43 RS ti VA 82 8- 6- 00 T [address] 01 20 20 0 PH 9 S AT 70 13 14 AR JE IN 5 MA RE CY MY 20 # C MG 48 47 TA BL ET NO 00 01 01 11 30 30 KM 68 BU Ac VO 16 -0 -0 0. AR 46 RG ti LO 96 6- 6- 00 T 78 ES ve G 33 20 20 0 PH 2 S 10 91 14 14 AR KE 0 0 MA LL UN CY Y IT # S/ ML 48 47 FL EX PE N AM 00 07 01 5 60 30 KM 68 PA Ac IT 60 -0 -0 0. AR 41 RS ti RI 32 5- 6- 00 T 93 ON ve PT 21 20 20 0 PH 4 S YL 42 13 14 AR JE IN 1 MA RE E CY MY HC # C L 50 48 47 MG TA B MO 00 12 12 0 60 30 CASTELAN 56 PA Ac RP 40 -3 -3 0. RO 75 RS ti HI 68 0- 0- 00 LD 69 ON ve NE 31 20 20 0 S 50 13 13 CL JE CLARK 1 IN RE LF IC MY C ER PH AR 15 MA CY MG TA BL ET HY 00 12 12 0 12 30 CASTELAN [address] 60 -3 -3 00 RO 75 RS ti OC 33 0- 0- .0 LD 70 ON ve OD 88 20 20 00 S ON 73 13 13 CL JE -A 2 IN RE CE IC MY TA C ME PH NO AR PH MA N CY 10 -3 25 EN 00 07 12 5 60 30 KM 68 PA Ac AL 09 -0 -2 0. AR 41 RS ti AP 30 5- 7- 00 T 93 ON ve RI 02 20 20 0 PH 6 S L 80 13 13 AR JE MA 1 MA RE LE CY MY AT # C E 10 48 47 MG TA B TI 57 07 12 5 90 30 KM 68 PA Ac ZA 66 -0 -2 0. AR 41 RS ti NI 40 5- 7- 00 T 93 ON ve DI 50 20 20 0 PH 3 S NE 38 13 13 AR JE 9 MA RE HC CY MY L # C 4 MG 48 47 TA BL ET RO 43 07 12 5 30 30 KM 68 PA Ac PI 54 -0 -2 0. AR 41 RS ti NI 70 5- 7- 00 T 94 ON ve RO 27 20 20 0 PH 0 S LE 31 13 13 AR JE 0 MA RE HC CY MY L # C 4 MG 48 47 TA BL ET GA 67 09 12 11 90 30 KM 68 PA Ac BA 87 -2 -1 0. AR 44 RS ti PE 70 5- 9- 00 T 06 ON ve NT 22 20 20 0 PH 0 S IN 30 13 13 AR JE 5 MA RE 30 CY MY 0 # C MG 48 CA 47 PS UL E FU 00 07 12 5 30 30 KM 68 PA Ac RO 37 -0 -1 0. AR 41 RS ti SE 80 5- 9- 00 T 93 ON ve ME 21 20 20 0 PH 2 S DE 61 13 13 AR JE 0 MA RE 40 CY MY # C MG 48 TA 47 BL ET AT 00 09 12 5 30 30 KM 68 PA Ac OR 37 -1 -1 0. AR 43 RS ti VA 82 8- 9- 00 T [address] 01 20 20 0 PH 9 S AT 70 13 13 AR JE IN 5 MA RE CY MY 20 # C MG 48 47 TA BL ET ME 00 09 12 11 60 30 KM 68 PA Ac TO 37 -1 -1 0. AR 43 RS ti IA 80 9- 9- 00 T 88 ON ve OL 03 20 20 0 PH 2 S OL 21 13 13 AR JE 0 MA RE TA CY MY RT # C RA TE 48 47 50 MG TA B NO 00 11 12 11 15 30 KM 68 PA Ac VO 16 -1 -1 0. AR 45 RS ti LO 93 5- 2- 00 T 50 ON ve G 69 20 20 0 PH 2 S ME 61 13 13 AR JE X 9 [...] PH ME AR NT MA CY MO 00 12 12 0 60 30 CASTELAN 56 PA Ac RP 40 -0 -0 0. RO 55 RS ti HI 68 2- 2- 00 LD 85 ON ve NE 31 20 20 0 S 50 13 13 CL JE CLARK 1 IN RE LF IC MY C ER PH AR 15 MA CY MG TA BL ET CLARK 53 12 12 0 30 15 CASTELAN 56 PA Ac LF 74 -0 -0 0. RO 55 RS ti AM 60 2- 2- 00 LD 88 ON ve ET 27 20 20 0 S HO 20 13 13 CL JE XA 5 IN RE ZO IC MY LE C -T PH MP AR MA DS CY TA BL ET 00 12 12 0 12 30 CASTELAN 56 PA Ac 40 -0 -0 00 RO 55 RS ti 60 2- 2- .0 LD 86 ON ve 36 20 20 00 S 30 13 13 CL JE 5 IN RE IC MY C PH AR MA CY RO 23 07 11 5 30 30 [...] E 10 48 47 MG TA B TI 57 07 11 5 90 30 KM 68 PA Ac ZA 66 -0 -2 0. AR 41 RS ti NI 40 5- 9- 00 T 93 ON ve DI 50 20 20 0 PH 3 S NE 38 13 13 AR JE 9 MA RE HC CY MY L # C 4 MG 48 47 TA BL ET AT 00 09 11 5 30 30 KM 68 PA Ac OR 37 -1 -2 0. AR 43 RS ti VA 83 8- 0- 00 T [address] 95 20 20 0 PH 9 S AT 17 13 13 AR JE IN 7 MA RE CY MY 20 # C MG 48 47 TA BL ET GA 67 09 11 11 90 30 KM 68 PA Ac BA 87 -2 -2 0. AR 44 RS ti PE 70 5- 0- 00 T 06 ON ve NT 22 20 20 0 PH 0 S IN 30 13 13 AR JE 1 MA RE 30 CY MY 0 # C MG 48 CA 47 PS UL E FU 00 06 11 5 30 30 KM 68 PA Ac RO 37 -0 -2 0. AR 41 RS ti SE 80 7- 0- 00 T 23 ON ve ME 21 20 20 0 PH 8 S DE 61 13 13 AR JE 0 MA RE 40 CY MY # C MG 48 TA 47 BL ET ME 00 09 11 11 60 30 KM 68 PA Ac TO 37 -1 -2 0. AR 43 RS ti IA 80 9- 0- 00 T 88 ON ve OL 03 20 20 0 PH 2 S OL 21 13 13 AR JE 0 MA RE TA CY MY RT # C RA TE 48 47 50 MG TA B NO 00 11 11 11 15 30 KM 68 PA Ac VO 16 -1 -1 0. AR 45 RS ti LO 93 5- 5- 00 T 50 ON ve G 69 20 20 0 PH 2 S ME 61 13 13 AR JE X 9 MA RE 70 CY MY -3 # C 0 FL 48 EX 47 PE N SY RN BD 08 12 11 9 10 30 KM 88 PA Ac 29 -0 -1 00 AR 04 RS ti UL 03 6- 5- .0 T 29 ON ve TR 20 20 20 00 PH 9 S A- 10 12 13 AR JE FI 9 MA RE NE CY MY # C PE N 48 ND 47 L 8M MX 31 G AM 00 07 11 5 60 30 KM 68 PA Ac IT 60 -0 -0 0. AR 41 RS ti RI 32 5- 7- 00 T 93 ON ve PT 21 20 20 0 PH 4 S YL 42 13 13 AR JE IN 1 MA RE E CY MY HC # C L 50 48 47 MG TA B EN 64 07 11 5 60 30 KM 68 PA Ac AL 67 -0 -0 0. AR 41 RS ti AP 90 5- 1- 00 T 93 ON ve RI 92 20 20 0 PH 6 S L 50 13 13 AR JE MA 2 MA RE LE CY MY AT # C E 10 48 47 MG TA B TI 57 07 11 5 90 30 KM 68 PA Ac ZA 66 -0 -0 0. AR 41 RS ti NI 40 5- 1- 00 T 93 ON ve DI 50 20 20 0 PH 3 S NE 38 13 13 AR JE 9 MA RE HC CY MY L # C 4 MG 48 47 TA BL ET RO 23 07 11 5 30 30 KM 68 PA Ac PI 15 -0 -0 0. AR 41 RS ti NI 50 5- 1- 00 T 94 ON ve RO 12 20 20 0 PH 0 S LE 60 13 13 AR JE 1 MA RE HC CY MY L # C 4 MG 48 47 TA BL ET MO 00 10 10 0 60 30 CASTELAN 56 PA Ac RP 40 -3 -3 0. RO 33 RS ti HI 68 0- 0- 00 LD 05 ON ve NE 31 20 20 0 S 50 13 13 CL JE CLARK 1 IN RE LF IC MY C ER PH AR 15 MA CY MG TA BL ET 00 10 10 0 12 30 CASTELAN 56 PA Ac 40 -3 -3 00 RO 33 RS ti 60 0- 0- .0 LD 04 ON ve 36 20 20 00 S 30 13 13 CL JE 5 IN RE IC MY C PH AR MA CY AT 00 09 10 5 30 30 KM 68 PA Ac OR 37 -1 -2 0. AR 43 RS ti VA 82 8- 3- 00 T [address] 01 20 20 0 PH 9 S AT 77 13 13 AR JE IN 7 MA RE CY MY 20 # C MG 48 47 TA BL ET FU 00 06 10 5 30 30 KM 68 PA Ac RO 37 -0 -2 0. AR 41 RS ti SE 80 7- 3- 00 T 23 ON ve ME 21 20 20 0 PH 8 S DE 61 13 13 AR JE 0 MA RE 40 CY MY # C MG 48 TA 47 BL ET ME 00 09 10 11 60 30 KM 68 PA Ac TO 37 -1 -2 0. AR 43 RS ti IA 80 9- 3- 00 T 88 ON ve OL 03 20 20 0 PH 2 S OL 21 13 13 AR JE 0 MA RE TA CY MY RT # C RA TE 48 47 50 MG TA B 14 09 10 11 90 30 KM 68 PA Ac 55 -2 -2 0. AR 44 RS ti 00 5- 3- 00 T 06 ON ve 51 20 20 0 PH 0 S 20 13 13 AR JE 4 MA RE CY MY # C 48 47 00 10 10 0 12 30 CASTELAN 56 PA Ac 40 -0 -0 00 RO 15 RS ti 60 3- 3- .0 LD 96 ON ve 36 20 20 00 S 30 13 13 CL JE 5 IN RE IC MY C PH AR MA CY ON 53 10 10 1 50 25 KM 88 PA Ac ET 88 -0 -0 0. AR 04 RS ti OU 50 4- 1- 00 T 51 ON ve CH 24 20 20 0 PH 8 S 45 12 13 AR JE UL 0 MA RE TR CY MY A # C TE ST [address] RI PS EN 64 04 10 5 60 30 KM 68 PA Ac AL 67 -1 -0 0. AR 39 RS ti AP 90 5- 1- T 88 ON ve RI 92 20 20 0 PH 7 S L 50 13 13 AR JE MA 2 MA RE LE CY MY AT # C E 10 48 47 MG TA B RO 43 07 10 5 30 30 KM 68 PA Ac PI 54 -0 -0 0. AR 41 RS ti NI 70 5- 1- 00 T 94 ON ve RO 27 20 20 0 PH 0 S LE 31 13 13 AR JE 0 MA RE HC CY MY L # C 4 MG 48 47 TA BL ET TI 57 07 10 5 90 30 KM 68 PA Ac ZA 66 -0 -0 0. AR 41 RS ti NI 40 5- 1- T 93 ON ve DI 50 20 20 0 PH 3 S NE 31 13 13 AR JE 8 MA RE HC CY MY L # C 4 MG 48 47 TA BL ET AM 00 04 10 4 60 30 KM 68 PA Ac IT 60 -1 -0 0. AR 39 RS ti RI 32 1- T 86 ON ve PT 21 20 20 0 PH 7 S YL 42 13 13 AR JE IN 1 MA RE E CY MY HC # C L 50 48 47 MG TA B 14 09 09 11 90 30 KM 68 PA Ac 55 -2 -2 0. AR 44 RS ti 00 5- 5- T 06 ON ve 51 20 20 0 PH 0 S 20 13 13 AR JE 4 MA RE CY MY # C 48 47 ME 00 09 09 11 60 30 KM 68 PA Ac TO 37 -1 -1 0. AR 43 RS ti IA 80 9- 9 T 88 ON ve OL 03 20 20 0 PH 2 S OL 21 13 13 AR JE 0 MA RE TA CY MY RT # C RA TE 48 47 50 MG TA B FU 00 06 09 5 30 30 KM 68 PA Ac RO 37 -0 -1 0. AR 41 RS ti SE 80 7- 8- T 23 ON ve ME 21 20 20 0 PH 8 S DE 61 13 13 AR JE 0 MA RE 40 CY MY # C MG 48 TA 47 BL ET AT 00 09 09 5 30 30 KM 68 PA Ac OR 37 -1 -1 0. AR 43 RS ti VA 82 8- 8- T [address] 01 20 20 0 PH 9 S AT 77 13 13 AR JE IN 7 MA RE CY MY 20 # C MG 48 47 TA BL ET NO 00 09 09 11 60 40 CASTELAN 55 PA Ac VO 16 -0 -0 .0 RO 93 RS ti LO 96 5- 5- 00 LD 84 ON ve G 33 20 20 S 10 91 13 13 CL JE 0 0 IN RE UN IC MY IT C S/ PH ML AR MA FL CY EX PE N 00 09 09 11 15 37 CASTELAN 55 PA Ac 16 -0 -0 0. RO 93 RS ti 96 5- 5- 00 LD 83 ON ve 43 20 20 0 S 91 13 13 CL JE 0 IN RE IC MY C PH AR MA CY 00 09 09 0 12 30 CASTELAN 55 PA Ac 40 -0 -0 00 RO 93 RS ti 60 5- 5- .0 LD 82 ON ve 36 20 20 00 S 30 13 13 CL JE 5 IN RE IC MY C PH AR MA CY 14 02 08 3 90 30 KM 68 PA Ac 55 -1 -2 0. AR 38 RS ti 00 4- 3- 00 T 26 ON ve 51 20 20 0 PH 9 S 20 13 13 AR JE 4 MA RE CY MY # C 48 47 EN 64 04 08 5 60 30 KM 68 PA Ac AL 67 -1 -2 0. AR 39 RS ti AP 90 5- 3- 00 T 88 ON ve RI 92 20 20 0 PH 7 S L 50 13 13 AR JE MA 2 MA RE LE CY MY AT # C E 10 48 47 MG TA B AM 00 [...] 47 MG TA B RO 43 07 08 5 30 30 KM 68 PA Ac PI 54 -0 -2 0. AR 41 RS ti NI 70 5- 3- 00 T 94 ON ve RO 27 20 20 0 PH 0 S LE 31 13 13 AR JE 0 MA RE HC CY MY L # C 4 MG 48 47 TA BL ET TI 57 07 08 5 [...] 47 TA BL ET FU 00 06 08 5 30 30 KM 68 PA Ac RO 37 -0 -0 0. AR 41 RS ti SE 80 7- 6- 00 T 23 ON ve ME 21 20 20 0 PH 8 S DE 61 13 13 AR JE 0 MA RE 40 CY MY # C MG 48 TA 47 BL ET 00 08 08 0 12 30 CASTELAN 55 PA Ac 40 -0 -0 00 RO 67 RS ti 60 2- 2- .0 LD 77 ON ve 36 20 20 00 S 30 13 13 CL JE 5 IN RE IC MY C PH AR MA CY EN 64 04 07 5 60 30 KM 68 PA Ac AL 67 -1 -2 0. AR 39 RS ti AP 90 5- 6- 00 T 88 ON ve RI 92 20 20 0 PH 7 S L 50 13 13 AR JE MA 2 MA RE LE CY MY AT # C E 10 48 47 MG TA B RO 43 07 07 5 30 30 KM 68 PA Ac PI 54 -0 -2 0. AR 41 RS ti NI 70 5- 6- 00 T 94 ON ve RO 27 20 20 0 PH 0 S LE 31 13 13 AR JE 0 MA RE HC CY MY L # C 4 MG 48 47 TA BL ET 14 02 07 3 90 30 KM 68 PA Ac 55 -1 -2 0. AR 38 RS ti 00 4- 6- 00 T 26 ON ve 51 20 20 0 PH 9 S 20 13 13 AR JE 4 MA RE CY MY # C 48 47 AM 00 04 07 4 60 30 KM 68 PA Ac IT 60 -1 -2 0. AR 39 RS ti RI 32 1- 2- 00 T 86 ON ve PT 21 20 20 0 PH 7 S YL 42 13 13 AR JE IN 1 MA RE E CY MY HC # C L 50 48 47 MG TA B MU 45 07 07 2 22 20 KM 68 PA Ac PI 80 -0 -0 0. AR 41 RS ti RO 20 5- 8- 00 T 95 ON ve CI 11 20 20 0 PH 2 S N 22 13 13 AR JE 2% 2 MA RE CY MY OI # C NT ME 48 NT 47 FU 00 06 07 5 30 30 KM 68 PA Ac RO 37 -0 -0 0. AR 41 RS ti SE 80 7- 8- 00 T 23 ON ve ME 21 20 20 0 PH 8 S DE 61 13 13 AR JE 0 MA RE 40 CY MY # C MG 48 TA 47 BL ET TI 00 07 07 5 90 30 KM 68 PA Ac ZA 18 -0 -0 0. AR 41 RS ti NI 54 5- 5- 00 T 93 ON ve DI 40 20 20 0 PH 3 S NE 01 13 13 AR JE 0 MA RE HC CY MY L # C 4 MG 48 47 TA BL ET 00 07 07 0 12 30 CASTELAN 55 PA Ac 40 -0 -0 00 RO 47 RS ti 60 5- 5- .0 LD 41 ON ve 36 20 20 00 S 30 13 13 CL JE 5 IN RE IC MY C PH AR MA CY ME 00 02 06 4 60 30 KM 68 PA Ac TO 37 -0 -2 0. AR 38 RS ti IA 80 6- 8- 00 T 07 ON [...] 69 20 20 0 PH 1 S ME 61 12 13 AR JE X 9 [...] E 10 48 47 MG TA B AM 00 04 06 [...] ND 47 L 8M MX 31 G 00 06 06 0 12 30 CASTELAN 55 PA Ac 40 -0 -0 00 RO 28 RS ti 60 7- 7- .0 LD 79 ON ve 36 20 20 00 S 30 13 13 CL JE 5 IN RE IC MY C PH AR MA CY FU 00 06 06 5 30 30 KM 68 PA Ac RO 37 -0 -0 0. AR 41 RS ti SE 80 7- 7- 00 T 23 ON ve ME 21 20 20 0 PH 8 S DE 61 13 13 AR JE 0 MA RE 40 CY MY # C MG 48 TA 47 BL ET RO 23 02 05 4 30 30 [...] -0 -3 0. AR 38 RS ti IA 80 6- 1- 00 T 07 ON [...] 69 20 20 0 PH 1 S ME 61 12 13 AR JE X 9 MA RE 70 CY MY -3 # C 0 FL 48 EX 47 PE N SY RN EN 64 04 05 5 60 30 KM 68 PA Ac AL 67 -1 -3 0. AR 39 RS ti AP 90 5- 1- 00 T 88 ON ve RI 92 20 20 0 PH 7 S L 50 13 13 AR JE MA 3 MA RE LE CY MY AT # C E 10 48 47 MG TA B 14 02 05 3 90 30 KM 68 PA Ac 55 -1 -3 0. AR 38 RS ti 00 4- 1- 00 T 26 ON ve 51 20 20 0 PH 9 S 20 13 13 AR JE 4 MA RE CY MY # C 48 47 AM 00 04 05 4 60 30 KM 68 PA Ac IT 60 -1 -2 0. AR 39 RS ti RI 32 1- 0- 00 T 86 ON ve PT 21 20 20 0 PH 7 S YL 42 13 13 AR JE IN 1 MA RE E CY MY HC # C L 50 48 47 MG TA B TI 55 11 05 5 90 30 CASTELAN 53 PA Ac ZA 11 -1 -1 0. RO 70 RS ti NI 10 4- 0- 00 LD 52 ON ve DI 18 20 20 0 S NE 01 12 13 CL JE 0 IN RE HC IC MY L C 4 PH MG AR MA TA CY BL ET 00 05 05 0 12 30 CASTELAN 55 PA Ac 40 -1 -1 00 RO 08 RS ti 60 0- 0- .0 LD 11 ON ve 36 20 20 00 S 30 13 13 CL JE 5 IN RE IC MY C PH AR MA CY NO 00 09 05 5 15 30 KM 68 PA Ac VO 16 -2 -0 0. AR 38 RS ti LO 93 0- 2- 00 T 08 ON ve G 69 20 20 0 PH 1 S ME 61 12 13 AR JE X 9 MA RE 70 CY MY -3 # C 0 FL 48 EX 47 PE N SY RN ME 00 02 05 4 60 30 KM 68 PA Ac TO 37 -0 -0 0. AR 38 RS ti IA 80 6- 2- 00 T 07 ON ve OL 03 20 20 0 PH 5 S OL 21 13 13 AR JE 0 MA RE TA CY MY RT # C RA TE 48 47 50 MG TA B 14 11 05 3 90 30 KM 68 PA Ac 55 -1 -0 0. AR 38 RS ti 00 4- 2- 00 T 20 ON ve 51 20 20 0 PH 5 S 20 12 13 AR JE 4 MA RE CY MY # C 48 47 BD 08 12 05 9 10 30 [...] 47 TA BL ET EN 64 04 05 5 60 30 KM 68 PA Ac AL 67 -1 -0 0. AR 39 RS ti AP 90 5- 1- 00 T 88 ON ve RI 92 20 20 0 PH 7 S L 50 13 13 AR JE MA 3 MA RE LE CY MY AT # C E 10 48 47 MG TA B AM 00 04 04 4 60 30 KM 68 PA Ac IT 60 -1 -1 0. AR 39 RS ti RI 32 1- 5- 00 T 86 ON ve PT 21 20 20 0 PH 7 S YL 42 13 13 AR JE IN 1 MA RE E CY MY HC # C L 50 48 47 MG TA B 00 04 04 0 12 30 CASTELAN 54 PA Ac 40 -1 -1 00 RO 85 RS ti 60 1- 1- .0 LD 53 ON ve 36 20 20 00 S 30 13 13 CL JE 5 IN RE IC MY C PH AR MA CY RO 23 02 04 4 30 30 KM 68 PA Ac PI 15 -0 -0 0. AR 38 RS ti NI 50 6- 5- 00 T 07 ON ve RO 12 20 20 0 PH 7 S LE 60 13 13 AR JE 1 MA RE HC CY MY L # C 4 MG 48 47 TA BL ET EN 64 02 04 11 30 30 KM 68 PA Ac AL 67 -1 -0 0. AR 38 RS ti AP 90 4- 5- 00 T 26 ON ve RI 92 20 20 0 PH 8 S L 60 13 13 AR JE MA 2 MA RE LE CY MY AT # C E 20 48 47 MG TA B 14 11 04 3 90 30 KM 68 PA Ac 55 -1 -0 0. AR 38 RS ti 00 4- 5- 00 T 20 ON ve 51 20 20 0 PH 5 S 20 12 13 AR JE 4 MA RE CY MY # C 48 47 ME 00 02 04 4 60 30 KM 68 PA Ac TO 37 -0 -0 0. AR 38 RS ti IA 80 6- 5- 00 T 07 ON ve OL 03 20 20 0 PH 5 S OL 21 13 13 AR JE 0 MA RE TA CY MY RT # C RA TE 48 47 50 MG TA B NO 00 09 04 5 15 30 KM 68 PA Ac VO 16 -2 -0 0. AR 38 RS ti LO 93 0- 5- 00 T 08 ON ve G 69 20 20 0 PH 1 S ME 61 12 13 AR JE X 9 MA RE 70 CY MY -3 # C 0 FL 48 EX 47 PE N SY RN FU 00 03 04 1 30 30 KM 68 PA Ac RO 37 -0 -0 0. AR 38 RS ti SE 80 7- 5- 00 T 83 ON ve ME 21 20 20 0 PH 2 S DE 61 13 13 AR JE 0 MA RE 40 CY MY # C MG 48 TA 47 BL ET 00 03 03 0 12 30 CASTELAN 54 PA Ac 59 -1 -1 00 RO 60 RS ti 12 1- 1- .0 LD 62 ON ve 60 20 20 00 S 90 13 13 CL JE 5 IN RE IC MY C PH AR MA CY NO 00 09 03 5 15 30 KM 68 PA Ac VO 16 -2 -0 0. AR 38 RS ti LO 93 0- 8- 00 T 08 ON ve G 69 20 20 0 PH 1 S ME 61 12 13 AR JE X 9 [...] ND 47 L 8M MX 31 G FU 00 03 03 1 30 30 KM 68 PA Ac RO 37 -0 -0 0. AR 38 RS ti SE 80 7- 8- 00 T 83 ON ve ME 21 20 20 0 PH 2 S DE 61 13 13 AR JE 0 MA RE 40 CY MY # C MG 48 TA 47 BL ET ME 00 02 03 4 60 30 KM 68 PA Ac TO 37 -0 -0 0. AR 38 RS ti IA 80 6- 8- 00 T 07 ON ve OL 03 20 20 0 PH 5 S OL 21 13 13 AR JE 0 MA RE TA CY MY RT # C RA TE 48 47 50 MG TA B RO 23 09 10 3 30 30 [...] 4- 7- 00 T 12 ON ve ME 21 20 20 PH 8 S DE [...] -0 -2 .0 AR 11 YN ti IA 40 4- 7- 00 T 00 E ve OL 47 20 20 PH 6 VA OL 75 11 11 AR UG 8 MA HN TA CY W RT 71 RA 74 TE # 50 71 74 MG TA B IA 00 10 10 0 21 6 KM [...] SA 55 RR ti CA 11 9- 7 00 DE 66 ET ve 01 20 20 NA 9 T 50 36 11 11 LE 8 PH NA MG AR RD MA R CA CY PS UL E TI 00 09 10 5 30 30 PA 61 DU Ac ZA 18 -1 -0 .0 SA 08 RR ti NI 54 9 7 00 DE 62 ET ve DI 40 20 20 NA 7 T NE 05 11 11 LE 1 PH NA HC AR RD L MA R 4 CY MG TA BL ET RO 23 09 10 3 30 30 KM 69 PA Ac PI 15 -1 -0 .0 AR 26 RS ti NI 50 4 3- 00 T 12 ON ve RO 12 20 20 PH 7 S LE 60 11 11 AR JE 1 MA RE HC CY MY L 71 C 4 74 MG # TA 71 BL 74 ET EN 64 09 09 3 60 30 KM 69 PA Ac AL 67 -1 -2 .0 AR 26 RS ti AP 90 4 8 00 T 12 ON ve RI 92 [...] 80 4 8 T 12 ON ve ME 21 20 20 PH 8 S DE 61 11 11 AR JE 0 MA RE 40 CY MY 71 C MG 74 # TA BL 71 ET 74 CR 00 09 09 6 30 30 KM 69 PA Ac ES 31 -0 -2 .0 AR 25 YN ti TO 00 1 8 00 T 46 E ve R 75 20 20 PH 4 VA 10 19 11 11 AR UG 0 MA HN MG CY W 71 TA 74 BL # ET 71 74 ME 00 01 09 6 60 30 KM 69 PA Ac TO 09 -0 -2 .0 AR 11 YN ti IA 30 4- 8- 00 T 00 E [...] G 69 20 20 PH 3 E ME 61 11 11 AR SA X 9 MA RA 70 CY H -3 71 M 0 74 FL # EX PE 71 N 74 SY RN BD 08 12 09 5 10 30 [...] .0 SA 97 RR ti CE 10 9 9 00 DE 35 ET ve T 71 20 20 NA 0 T 10 27 11 11 LE -3 0 PH NA [address] MA R MG CY TA BL ET MO 00 09 09 0 60 30 PA 20 DU Ac RP 40 -0 -0 .0 SA 97 RR ti HI 68 9- 9 00 DE 35 ET ve NE [...] MA R CA CY PS UL E RO 23 09 09 0 30 30 [...] 4- 1- 00 T 00 E ve ME 21 20 20 PH 9 VA DE 61 11 11 AR UG 0 MA HN 40 CY W 71 MG 74 # TA BL 71 ET 74 ME 00 01 08 6 60 30 KM 69 PA Ac TO 09 -0 -3 .0 AR 11 YN ti IA 30 4- 0- 00 T 00 E [...] G 69 20 20 PH 3 E ME 61 11 11 AR SA X 9 [...] L 71 8M 74 MX 31 G CR 00 01 08 6 [address] [facility] ES 31 -0 -0 .0 AR 11 YN ti TO 00 4- 3- 00 T 01 E ve R 75 20 20 PH 0 VA 10 19 11 11 AR UG 0 MA HN MG CY W 71 TA 74 BL # ET 71 74 FU 00 01 08 6 [address] [facility] RO 37 -0 -0 .0 AR 11 YN ti SE 80 4- 3- 00 T 00 E ve ME 21 20 20 PH 9 VA DE 61 11 11 AR UG 0 MA HN 40 CY W 71 MG 74 # TA BL 71 ET 74 RO 23 06 08 2 30 30 KM 69 [facility] PI 15 -0 -[address] ti NI 50 2- 3- 00 T 52 IC ve RO 12 20 20 PH 9 E LE 60 11 11 AR SA 1 MA RA HC CY H L 71 M 4 74 MG # TA 71 BL 74 ET NO 00 06 07 3 15 30 KM 69 [facility] VO 16 -2 -[address] ti LO 93 1- 2- 00 T 61 IC ve G 69 20 20 PH 3 E ME 61 11 11 AR SA X 9 MA RA 70 CY H -3 71 M 0 74 FL # EX PE 71 N 74 SY RN FL 00 04 07 3 16 30 KM 69 [facility] UT 05 -2 -[address] ti IC 43 9- 2- 00 T 70 IC ve 27 20 20 PH 2 E ON 09 11 11 AR SA E 9 MA RA IA CY H OP 71 M 74 50 # MC 71 G 74 SP RA Y GA 14 04 07 3 60 30 KM 69 [facility] BA 55 -2 -[address] ti PE 00 6- 2- 00 T 54 IC ve NT 51 20 20 PH 2 E IN 20 11 11 AR SA 2 MA RA 30 CY H 0 71 M MG 74 # CA PS 71 UL 74 E EN 00 01 07 6 [address] [facility] AL 09 -0 -2 .0 AR 11 [...] -0 -2 .0 AR 11 YN ti IA 30 4- 2- 00 T 00 E ve OL 73 20 20 PH 6 VA OL 31 11 11 AR UG 0 MA HN TA CY W RT 71 RA 74 TE # 50 71 74 MG TA B EN 60 07 07 0 90 30 PA 20 LA Ac DO 95 -1 -1 .0 SA 96 RS ti CE 10 1- 1- 00 DE 46 ON ve T 71 [...] .0 SA 55 RS ti CA 11 1 00 DE 42 ON ve 01 20 [...] CY MG TA BL ET RO 23 06 06 [...] 4- 0- 00 T 00 E ve ME 21 20 20 PH 9 VA DE 61 11 11 AR UG 0 MA HN 40 CY W 71 MG 74 # TA BL 71 ET 74 NO 00 06 06 3 15 30 KM 69 JU Ac VO 16 -2 -[address] ti LO 93 1- 2- 00 T 61 IC ve G 69 20 20 PH 3 E ME 61 11 11 AR SA X 9 [...] 11 AR SA E 9 MA RA IA CY H OP 71 M 74 50 [...] -0 -2 .0 AR 11 YN ti IA 30 4- 0- 00 T 00 E ve OL 73 20 20 PH 6 VA OL 31 11 11 AR UG 0 MA HN TA CY W RT 71 RA 74 TE # 50 71 74 MG TA B MO 00 05 06 0 60 30 [...] 4- 2- 00 T 00 E ve ME 21 20 20 PH 9 VA DE [...] 11 AR SA E 9 MA RA IA CY H OP 71 M 74 50 [...] -0 -2 .0 AR 11 YN ti IA 30 4- 4- 00 T 00 E [...] G 69 20 20 PH 5 Y ME 61 10 11 AR JE X 9 MA NN 70 CY IF -3 71 ER 0 74 B FL # EX PE 71 N 74 SY RN MO 00 05 05 0 60 30 [...] K 4 CY MG TA BL ET CR 00 01 05 6 30 30 [...] 4- 5- 00 T 00 E ve ME 21 20 20 PH 9 VA DE 61 11 11 AR UG 0 MA HN 40 CY W 71 MG 74 # TA BL 71 ET 74 00 12 05 4 12 30 KM 69 KI Ac 55 -3 -0 0. AR 12 NG ti 50 0- 5- 00 T 83 ER ve 05 20 20 0 PH 4 Y 90 10 11 AR JE 5 MA NN CY IF 71 ER 74 B # 71 74 RO 00 12 05 5 30 [...] 11 AR SA E 9 MA RA IA CY H OP 71 M 74 50 # MC 71 G 74 SP RA Y EN 64 01 04 6 60 30 KM 69 PA Ac AL 67 -0 -2 .0 AR 11 YN ti AP 90 4- 7- 00 T 00 E ve RI 92 20 20 PH 8 VA L 50 11 11 AR UG MA 2 MA HN LE CY W AT 71 E 74 10 # MG 71 74 TA B ME 00 11 04 6 60 30 KM 69 PA Ac TO 09 -0 -2 .0 AR 07 YN ti IA 30 1- 7- 00 T 00 E ve OL 73 20 20 PH 4 VA OL 31 10 11 AR UG 0 MA HN TA CY W RT 71 RA 74 TE # 50 71 74 MG TA B GA 14 04 04 3 [...] 71 UL 74 E NO 00 12 04 5 15 30 KM 69 KI Ac VO 16 -3 -2 .0 AR 10 NG ti LO 93 0- 7- 00 T 66 ER ve G 69 20 20 PH 5 Y ME 61 10 11 AR JE X 9 MA NN 70 CY IF -3 71 ER 0 74 B FL # EX PE 71 N 74 SY RN TI 55 03 04 5 30 30 [...] CY J 15 MG TA BL ET CR 00 01 04 6 30 30 [...] 4- 8- 00 T 00 E ve ME 21 20 20 PH 9 VA DE 61 11 11 AR UG 0 MA HN 40 CY W 71 MG 74 # TA BL 71 ET 74 00 12 04 4 12 30 KM 69 KI Ac 55 -3 -0 0. AR 12 NG ti 50 0- 8- 00 T 83 ER ve 05 20 20 0 PH 4 Y 90 10 11 AR JE 5 MA NN CY IF 71 ER 74 B # 71 74 RO 23 12 04 5 30 [...] TA 71 BL 74 ET FL 00 12 03 3 16 30 KM 69 KI Ac UT 05 -3 -3 .0 AR 10 NG ti IC 43 0- 0- 00 T 67 ER ve 27 20 20 PH 5 Y ON 09 10 11 AR JE E 9 MA NN IA CY IF OP 71 ER 74 B 50 # MC 71 G 74 SP RA Y NO 00 12 03 5 15 30 KM 69 KI Ac VO 16 -3 -3 .0 AR 10 NG ti LO 93 0- 0- 00 T 66 ER ve G 69 20 20 PH 5 Y ME 61 10 11 AR JE X 9 MA NN 70 CY IF -3 71 ER 0 74 B FL # EX PE 71 N 74 SY RN EN 00 01 03 6 60 30 KM 69 PA Ac AL 09 -0 -3 .0 AR 11 YN ti AP 30 4- 0- 00 T 00 E ve RI 02 20 20 PH 8 VA L 81 11 11 AR UG MA 0 MA HN LE CY W AT 71 E 74 10 # MG 71 74 TA B ME 00 11 03 6 60 30 KM 69 PA Ac TO 09 -0 -3 .0 AR 07 YN ti IA 30 1- 0- 00 T 00 E [...] 4- 4- 00 T 00 E ve ME 21 20 20 PH 9 VA DE [...] 71 74 TA B ME 00 11 02 6 60 30 KM 69 PA Ac TO 09 -0 -2 .0 AR 07 YN ti IA 30 1- 8- 00 T 00 E [...] G 69 20 20 PH 5 Y ME 61 10 11 AR JE X 9 [...] 11 AR JE E 9 MA NN IA CY IF OP 71 ER 74 B 50 # MC 71 G 74 SP RA Y DO 00 02 02 56 28 KM [...] 2- 5- 00 T 18 Y ve ME 21 20 20 PH 5 AZAM DE [...] Y /2 S 00 ML BA G ME 00 11 01 6 60 30 KM 69 PA Ac TO 37 -0 -2 .0 AR 07 YN ti IA 80 1- 6- 00 T 00 E ve OL 03 20 20 PH 4 VA OL 21 10 11 AR UG 0 MA HN TA CY W RT 71 RA 74 TE # 50 71 74 MG TA B FL 00 12 01 3 16 30 KM 69 KI Ac UT 05 -3 -2 .0 AR 10 NG ti IC 43 0- 6- 00 T 67 ER ve 27 20 20 PH 5 Y ON 09 10 11 AR JE E 9 MA NN IA CY IF OP 71 ER 74 B [...] G 69 20 20 PH 5 Y ME 61 10 11 AR JE X 9 MA NN 70 CY IF -3 71 ER 0 74 B FL # EX PE 71 N 74 SY RN EN 00 06 01 5 60 30 KM 68 Ac AL 09 -2 -2 .0 AR 99 HB ti AP 30 2- 6- 00 T 18 Y ve RI 02 20 20 PH 4 AZAM L 90 10 11 AR NE MA 1 MA S LE CY LA AT 71 UR E 74 A 20 # P MG 71 74 TA B MO 00 01 01 0 60 30 [...] 2- 6- 00 T 18 Y ve ME 21 20 20 PH 5 AZAM DE 61 10 11 AR NE 0 MA S 40 CY LA 71 UR MG 74 A # P TA BL 71 ET 74 CR 00 06 01 5 30 [...] TA 74 BL # ET 71 74 GA 14 12 12 3 60 30 [...] G 69 20 20 PH 5 Y ME 61 10 10 AR JE X 9 MA NN 70 CY IF -3 71 ER 0 74 B FL # EX PE 71 N 74 SY RN BD 08 12 12 5 10 30 [...] 10 AR JE E 6 MA NN IA CY IF OP 71 ER 74 B 50 # MC 71 G 74 SP RA Y EN 00 06 12 5 60 30 [...] -0 -2 .0 AR 07 YN ti IA 80 1- 9- 00 T 00 E [...] 71 BL 74 ET CR 00 06 12 5 30 30 [...] 2- 6- 00 T 18 Y ve ME 21 20 20 PH 5 AZAM DE 61 10 10 AR NE 0 MA S 40 CY LA 71 UR MG 74 A # P TA BL 71 ET 74 DI 00 11 12 6 30 [...] 0. AR 11 HB ti UL 03 8- 9- 00 T 64 Y ve TR 20 20 20 0 PH 8 AZAM A- 10 10 10 AR NE FI 9 MA S NE CY LA 71 UR PE 74 A N # P ND L 71 8M 74 MX 31 G EN 00 06 11 5 60 30 [...] G 69 20 20 PH 8 TH ME 61 10 10 AR X 9 MA RA 70 CY -3 71 ND 0 74 ER FL # S EX PE 71 N 74 SY RN ME 00 11 11 6 60 30 KM 69 PA Ac TO 09 -0 -2 .0 AR 07 YN ti IA 30 1- 9- 00 T 00 E ve OL 73 20 20 PH 4 VA OL 31 10 10 AR UG 0 MA HN TA CY W RT 71 RA 74 TE # 50 71 74 MG TA B AC 64 01 11 1 [...] AR 99 HB ti TO 00 2- 8- 00 T 18 Y ve R [...] 2- 8- 00 T 18 Y ve ME 21 20 20 PH 5 AZAM DE [...] -0 -0 .0 AR 07 YN ti IA 30 1- 1- 00 T 00 E [...] 2- 1- 00 T 18 Y ve ME 21 20 20 PH 5 AZAM DE [...] EA BL 74 ET # 71 74 ME 00 03 10 6 60 30 KM 68 PA Ac TO 09 -3 -0 .0 AR 94 YN ti IA 30 1- 2- 00 T 40 E ve OL 73 20 20 PH 6 VA OL 31 10 10 AR UG 0 MA HN TA CY W RT 71 RA 74 TE # 50 71 74 MG TA B NO 00 09 10 1 15 30 KM 69 BH Ac VO 16 -2 -0 .0 AR 04 AG ti LO 93 3- 2- 00 T 56 RA ve G 69 20 20 PH 8 TH ME 61 10 10 AR X 9 MA [...] 71 74 TA B LY 00 09 09 1 [...] 2- 3- 00 T 18 Y ve ME 21 20 20 PH 5 AZAM DE [...] ve RO 12 20 20 PH 1 AZMA LE 12 10 10 AR NE 5 [...] EA BL 74 ET # 71 74 ME 00 03 09 6 60 30 KM 68 PA Ac TO 09 -3 -0 .0 AR 94 YN ti IA 30 1- 2- 00 T 40 E [...] MA A PS CY P UL E FU 00 03 08 5 30 30 KM 68 Ac RO 05 -1 -1 .0 AR 93 HB ti SE 44 8- 7- 00 T 58 Y ve ME 29 20 20 PH 9 AZAM DE 93 10 10 AR NE 1 MA S 40 CY LA 71 UR MG 74 A # P TA BL 71 ET 74 RO 00 06 08 5 30 [...] # P ET 71 74 NO 00 06 08 2 15 30 KM 68 BH Ac VO 16 -0 -1 .0 AR 98 AG ti LO 93 8- 7- 00 T 31 RA ve G 69 20 20 PH 3 TH ME 61 10 10 AR X 9 MA RA 70 CY -3 71 ND 0 74 ER FL # S EX PE 71 N 74 SY RN DI 00 03 08 6 30 30 [...] -3 -0 .0 AR 94 YN ti IA 30 1- 2- 00 T 40 E ve OL 73 20 20 PH 6 VA OL 31 10 10 AR UG 0 MA HN TA CY W RT 71 RA 74 TE # 50 71 74 MG TA B 00 07 07 0 20 [...] TA 71 BL 74 ET FU 00 03 07 5 30 30 KM 68 Ac RO 05 -1 -1 .0 AR 93 HB ti SE 44 8- 5- 00 T 58 Y ve ME 29 20 20 PH 9 AZAM DE [...] G 69 20 20 PH 3 TH ME 61 10 10 AR X 9 MA RA 70 CY -3 71 ND 0 74 ER FL # S EX PE 71 N 74 SY RN DI 00 03 07 6 30 30 KM 68 PA Ac GO 52 -1 -1 .0 AR 93 YN ti X 71 6- 5- 00 T 39 E ve 12 32 20 20 PH 6 VA 5 40 10 10 AR UG MC 1 MA HN G CY W TA 71 BL 74 ET # 71 74 AC 64 01 07 5 [...] 74 BL # ET 71 74 EN 00 04 07 3 [...] -3 -0 .0 AR 94 YN ti IA 30 1- 2- 00 T 40 E [...] 4 R [address] WOOD 1 UG BE MG RT CO E CA MP PS AN UL Y E IN C TI 00 06 06 30 30 EC 73 WI Ac ZA 37 -2 -2 .0 ON 27 ND ti NI 80 5- 5- 00 OM 27 SO ve DI 72 20 20 Y 3 R NE [address] WOOD 9 UG BE HC RT L CO E 4 MP MG AN Y TA IN BL C ET BA 00 06 06 60 15 EC 73 WI Ac NO 90 -2 -2 .0 ON 27 ND ti PH 45 5- 5- 00 OM 27 SO ve EN 55 20 20 Y 2 R [address] WOOD 25 9 UG BE RT MG CO E MP TA AN BL Y ET IN C LY 00 06 06 90 30 EC 46 WI Ac RI 07 -2 -2 .0 ON 96 ND ti CA 11 5- 5- 00 OM 73 SO ve 01 20 20 Y 0 R [address] WOOD 0 8 UG BE MG [...] 8- 6- 00 T 58 Y ve ME 21 20 20 PH 9 AZAM DE 61 10 10 AR NE 0 MA S 40 CY LA 71 UR MG 74 A # P TA BL 71 ET 74 CR 00 01 06 5 30 [...] SH 71 EA 74 # 71 74 DI 00 03 06 6 30 30 KM 68 PA Ac GO 52 -1 -1 .0 AR 93 YN ti X 71 6- 6- 00 T 39 E ve 12 32 20 20 PH 6 VA 5 40 10 10 AR UG MC 1 MA HN G CY W TA 71 BL 74 ET # 71 74 NO 00 06 06 2 15 30 KM 68 BH Ac VO 16 -0 -0 .0 AR 98 AG ti LO 93 8- 8- 00 T 31 RA ve G 69 20 20 PH 3 TH ME 61 10 10 AR X 9 MA RA 70 CY -3 71 ND 0 74 ER FL # S EX PE 71 N 74 SY RN ME 00 06 06 21 6 RI 62 MU Ac TH 60 -0 -0 .0 TE 93 TI ti YL 34 7- 7- 00 98 SO ve IA 59 20 20 AI ED 31 10 [...] -3 -0 .0 AR 94 YN ti IA 30 1- 1- 00 T 40 E ve OL 73 20 20 PH 6 VA OL 31 10 10 AR UG 0 MA HN TA CY W RT 71 RA 74 TE # 50 71 74 MG TA B BA 00 05 05 0 60 15 [...] UL Y E IN C DO 00 05 05 0 30 30 [...] AN Y TA IN BL C ET CR 00 01 05 5 30 30 [...] 71 BL 74 ET # 71 74 00 12 05 6 30 [...] 8- 5- 00 T 58 Y ve ME 21 20 20 PH 9 AZAM DE 61 10 10 AR NE 0 MA S 40 CY LA 71 UR MG 74 A # P TA BL 71 ET 74 ME 00 03 04 6 60 30 KM 68 PA Ac TO 09 -3 -2 .0 AR 94 YN ti IA 30 1- 9- 00 T 40 E [...] A # P 71 74 NO 00 04 04 15 30 KM 68 BH Ac VO 16 -2 -2 .0 AR 95 AG ti LO 93 0- 6- 00 T 61 RA ve G 69 20 20 PH 1 TH ME 61 10 10 AR X 9 MA [...] 8- 4- 00 T 58 Y ve ME 62 20 20 PH 9 AZAM DE [...] -3 -3 .0 AR 94 YN ti IA 30 1- 1- 00 T 40 E [...] AN Y TA IN BL C ET 00 03 03 5 15 30 KM 88 Ac 16 -1 -1 .0 AR 10 HB ti 93 8- 8- 00 T 89 Y ve 47 20 20 PH 1 AZAM 71 10 10 AR NE 8 MA S CY LA 71 UR 74 A # P 71 74 64 03 03 1 30 15 [...] 8- 8- 00 T 58 Y ve ME 62 20 20 PH 9 AZAM DE 50 10 10 AR NE 1 MA S 40 CY LA 71 UR MG 74 A # P TA BL 71 ET 74 CR 00 01 03 5 30 [...] 20 # MG 71 74 TA B DI 00 03 03 6 30 30 [...] 1- 8- 00 T 44 IN ve ME 62 20 20 PH 8 G DE [...] -3 -0 .0 AR 80 YN ti IA 30 1- T 99 E ve OL 73 20 20 PH 6 VA OL 31 09 10 AR UG 0 MA HN TA CY W RT 71 RA 74 TE # 50 71 74 MG TA B DI 00 02 02 00 30 30 K- 68 PA Ac GO 52 -1 -2 .0 MA 91 YN ti X 71 7- 6- 00 RT 76 E ve 12 32 20 20 6 VA 5 40 10 10 PH UG MC 1 AR HN G M W TA #7 BL 17 ET 4 EN 00 06 02 02 60 [...] M SH #7 EA 17 4 00 12 02 00 30 30 [...] MA 76 NN ti SE 80 1- 1- 00 RT 44 IN ve ME 21 20 20 8 G DE 61 09 10 PH MA 0 AR LE 40 M SH #7 EA MG 17 4 TA BL ET LY 00 02 00 12 30 EC 46 WI Ac RI 07 -2 -1 0. ON 88 ND ti CA 11 7- 1- 00 OM 94 SO ve 01 20 20 0 Y 2 R [address] RO 0 8 UG BE MG RT CO E CA PS IN UL C E DO 00 02 00 90 30 EC 73 WI [...] 88 ND ti AD 20 7- 1- OM 94 SO ve OL 62 20 20 Y 1 R [address] RO HC 1 UG BE L RT 50 CO E MG IN C TA BL ET ME 00 08 02 05 60 30 K- 68 PA Ac TO 09 -3 -1 .0 MA 80 YN ti IA 30 1- 1- 00 RT 99 E ve OL 73 20 20 6 VA OL 31 09 10 PH UG 0 AR HN TA M W RT #7 RA 17 TE 4 50 MG TA B 00 06 02 5 15 30 KM 88 DU Ac 16 -1 -0 .0 AR 10 NN ti 93 8- 8- 00 T 13 IN ve 47 20 20 PH 1 G 71 09 10 AR MA 8 MA LE CY SH 71 EA 74 # 71 74 DI 00 01 01 00 30 30 [...] M SH #7 EA 17 4 64 01 02 30 30 K- 68 DU Ac 72 -1 -1 .0 MA 67 NN ti 00 3- 4- 00 RT 01 IN ve 20 20 20 1 G 61 09 10 PH MA 0 AR LE M SH #7 EA 17 4 FU 00 06 01 01 30 30 K- 68 DU Ac RO 37 -1 -1 .0 MA 76 NN ti SE 80 1- 4- 00 RT 44 IN ve ME 21 20 20 8 G DE 61 [...] SH #7 EA 17 4 DO 00 12 00 90 30 EC 73 WI Ac XE 37 -2 -1 .0 ON ND ti PI 83 9- 4 OM 01 SO ve N 12 20 20 Y 3 R [address] NINA 1 UG BE MG RT CO E CA PS IN UL C E TR 65 12 00 90 30 EC 46 WI Ac AM 16 -2 -1 .0 ON ND ti AD 20 9 OM 52 SO ve OL 62 20 20 Y 1 R [address] WOOD HC 1 UG BE L RT 50 CO E MG IN C TA BL ET 00 03 16 00 15 30 EC 46 WI Ac 59 -2 -1 0. ON 87 ND ti 10 9- 4 OM 52 SO ve 54 20 20 0 Y 0 R [address] WOOD 5 UG BE RT CO E IN C LY 00 12 00 12 30 EC 46 WI Ac RI 07 -2 -1 0. ON ND ti CA 11 9- 4 OM 52 SO ve 01 20 20 0 Y 2 R [address] RO 0 8 UG BE MG RT CO E CA PS IN UL C E AC 64 06 01 01 30 30 K- 68 DU Ac TO 76 -1 -1 .0 MA 76 NN ti S 40 1- 4- 00 RT 44 IN ve 45 45 20 20 5 G 12 09 10 PH MA MG 4 AR LE M SH TA #7 EA BL 17 ET 4 DI 00 06 01 01 30 30 K- 68 DU Ac GO 52 -1 -1 .0 MA 76 NN ti X 71 1- 4- 00 RT 44 IN ve 25 32 20 20 6 G 0 50 09 10 PH MA MC 1 AR LE G M SH TA #7 EA BL 17 ET 4 EN 00 06 01 01 60 30 K- 68 DU Ac AL 09 -1 -1 .0 MA 76 NN ti AP 30 1- 4- 00 RT 44 IN ve RI 02 20 20 7 G L 90 09 10 PH MA MA 1 AR LE LE M SH AT #7 EA E 17 20 4 MG TA B ME 00 08 01 04 60 30 K- 68 PA Ac TO 09 -3 -1 .0 MA 80 YN ti IA 30 1- 4- 00 RT 99 E [...] Y 7 R [address] WOOD HC [...] -3 -1 .0 MA 80 YN ti IA 30 1- 7- 00 RT 99 E ve OL 73 20 20 6 VA OL 31 09 09 PH UG 0 AR HN TA M W RT #7 RA 17 TE 4 50 MG TA B BU 00 12 12 00 30 30 K- 68 DU Ac SP 37 -1 -1 .0 MA 87 NN ti IR 81 1 7- 00 RT 88 IN ve ON 15 20 20 2 G E 00 09 09 PH MA HC 1 AR LE L M SH 10 #7 EA 17 MG 4 TA BL ET CR 00 06 12 05 30 30 K- 68 DU Ac ES 31 -1 -1 .0 MA 76 NN ti TO 00 7 RT 76 IN ve R 75 20 20 5 G 10 19 09 09 PH MA 0 AR LE MG M SH #7 EA TA 17 BL 4 ET FU 00 06 12 00 30 30 K- 68 DU Ac RO 37 -1 -1 .0 MA 76 NN ti SE 80 1- 7- 00 RT 44 IN ve ME 21 20 20 8 G DE 61 09 09 PH MA 0 AR LE 40 M SH #7 EA MG 17 4 TA BL ET GL 00 06 12 03 12 60 K- 68 DU Ac YB 09 -1 -1 0. MA 76 NN ti UR 39 8- 7- 00 RT 76 IN ve ID 36 20 20 0 7 G E 40 09 09 PH MA 5 1 AR LE MG M SH #7 EA TA 17 BL 4 ET 64 06 12 05 30 30 K- 68 DU Ac 72 -1 -1 .0 MA 76 NN ti 00 8- 7- 00 RT 76 IN ve 20 20 20 8 G 61 09 09 PH MA 0 AR LE M SH #7 EA 17 4 AC 64 06 12 00 30 30 [...] BL 17 ET 4 EN 00 06 12 00 60 30 K- 68 DU Ac AL 09 -1 -1 .0 MA 76 NN ti AP 30 1- 7- 00 RT 44 IN ve RI 02 20 20 7 G L 90 09 09 PH MA MA 1 AR LE LE M SH AT #7 EA E 17 20 4 MG TA B BU 00 06 12 05 30 30 [...] 8 R [address] WOOD 0 8 UG BE MG RT CO E CA PS IN UL C E 00 06 11 03 15 30 K- 88 DU Ac 16 -1 -1 .0 MA 10 NN ti 93 8- 9- 00 RT 13 IN ve 47 20 20 1 G 71 09 09 PH MA 8 AR LE M SH #7 EA 17 4 EN 00 06 11 05 60 [...] MA 76 NN ti TO 00 8 9- 00 RT 76 IN ve R 75 20 20 5 G 10 19 09 09 PH MA 0 AR LE MG M SH #7 EA TA 17 BL 4 ET AC 64 06 11 05 30 30 K- 68 DU Ac TO 76 -1 -1 .0 MA 76 NN ti S 40 8- 9- 00 RT 76 IN ve 45 45 20 20 0 G 12 09 09 PH MA MG 4 AR LE M SH TA #7 EA BL 17 ET 4 FU 00 06 11 05 30 30 K- 68 DU Ac RO 37 -1 -1 .0 MA 76 NN ti SE 80 8- 9- 00 RT 77 IN ve ME 21 20 20 0 G DE 61 09 09 PH MA 0 AR LE 40 M SH #7 EA MG 17 4 TA BL ET 64 06 11 04 30 30 K- 68 DU Ac 72 -1 -1 .0 MA 76 NN ti 00 8- 9- 00 RT 76 IN ve 20 20 20 8 G 61 09 09 PH MA 0 AR LE M SH #7 EA 17 4 DI 00 06 11 05 30 30 K- 68 DU Ac GO 52 -1 -1 .0 MA 76 NN ti X 71 8- 9- 00 RT 76 IN ve 25 32 20 20 4 G 0 50 09 09 PH MA MC 1 AR LE G M SH TA #7 EA BL 17 ET 4 TR 65 10 11 00 90 30 EC 46 WI Ac AM 16 -2 -0 .0 ON 84 ND ti AD 20 7- 5- 00 OM 59 SO ve OL 62 20 20 Y 2 R [address] WOOD HC 1 UG BE L RT 50 CO E MG IN C TA BL ET ME 00 08 11 02 60 30 K- 68 PA Ac TO 37 -3 -0 .0 MA 80 YN ti IA 80 1- 5- 00 RT 99 E ve OL 03 20 20 6 VA OL 21 09 09 PH UG 0 AR HN TA M W RT #7 RA 17 TE 4 50 MG TA B LY 00 10 11 00 12 30 EC 46 WI Ac RI 07 -2 -0 0. ON 84 ND ti CA 11 7- 5- 00 OM 59 SO ve 01 20 20 0 Y 3 R [address] WOOD 0 8 UG BE MG RT CO E CA PS IN UL C E DO 00 10 11 00 90 30 EC 72 WI Ac XE 37 -2 -0 .0 ON 99 ND ti PI 83 7- 5- 00 OM 84 SO ve N 12 20 20 Y 0 R [address] WOOD 1 UG BE MG RT CO E CA PS IN UL C E AC 64 06 10 04 30 30 K- 68 DU Ac TO 76 -1 -2 .0 MA 76 NN ti S 40 8- 2- 00 RT 76 IN ve 45 45 20 20 0 G 12 09 09 PH MA MG 4 AR LE M SH TA #7 EA BL 17 ET 4 EN 00 06 10 04 60 30 K- 68 DU Ac AL 09 -1 -2 .0 MA 76 NN ti AP 30 8- 2- 00 RT 76 IN ve RI 02 20 20 6 G L 90 09 09 PH MA MA 1 AR LE LE M SH AT #7 EA E 17 20 4 MG TA B BU 00 06 10 04 30 30 K- 68 DU Ac SP 37 -1 -2 .0 MA 76 NN ti IR 81 8- 2- 00 RT 76 IN ve ON 15 20 20 3 G E 00 09 09 PH MA HC 1 AR LE L M SH 10 #7 EA 17 MG 4 TA BL ET CR 00 06 10 03 30 30 K- 68 DU Ac ES 31 -1 -2 .0 MA 76 NN ti TO 00 8- 2- 00 RT 76 IN ve R 75 20 20 5 G 10 19 09 09 PH MA 0 AR LE MG M SH #7 EA TA 17 BL 4 ET 64 06 10 03 30 30 K- 68 DU Ac 72 -1 -2 .0 MA 76 NN ti 00 8- 2- 00 RT 76 IN ve 20 20 20 8 G 61 09 09 PH MA 0 AR LE M SH #7 EA 17 4 DI 00 06 10 04 30 30 [...] 8- 2- 00 RT 77 IN ve ME 21 20 20 0 G DE 61 09 09 PH MA 0 AR LE 40 M SH #7 EA MG 17 4 TA BL ET GL 00 06 10 02 12 60 K- 68 DU Ac YB 09 -1 -2 0. MA 76 NN ti UR 39 8- 2- 00 RT 76 IN ve ID 36 20 20 0 7 G E 40 09 09 PH MA 5 1 AR LE MG M SH #7 EA TA 17 BL 4 ET DO 00 09 10 00 96 [...] PS IN UL C E TR 65 09 10 00 96 32 EC 46 WI Ac AM 16 -2 -0 .0 ON 83 ND ti AD 20 5- 8- 00 OM 04 SO ve OL 62 20 20 Y 5 R [address] NINA HC 1 UG BE L RT 50 CO E MG IN C TA BL ET ME 00 08 10 01 60 30 K- 68 PA Ac TO 37 -3 -0 .0 MA 80 YN ti IA 80 1- 8- 00 RT 99 E ve OL 03 20 20 6 VA OL 21 09 09 PH UG 0 AR HN TA M W RT #7 RA 17 TE 4 50 MG TA B EN 00 06 09 03 60 30 K- 68 DU Ac AL 09 -1 -2 .0 MA 76 NN ti AP 30 8- 4- 00 RT 76 IN ve RI 02 20 20 6 G L 90 09 09 PH MA MA 1 AR LE LE M SH AT #7 EA E 17 20 4 MG TA B 64 06 09 02 30 30 K- 68 DU Ac 72 -1 -2 .0 MA 76 NN ti 00 8- 4- 00 RT 76 IN ve 20 20 20 8 G 61 09 09 PH MA 0 AR LE M SH #7 EA 17 4 FU 00 06 09 03 30 30 K- 68 DU Ac RO 37 -1 -2 .0 MA 76 NN ti SE 80 8- 4- 00 RT 77 IN ve ME 21 20 20 0 G DE 61 [...] TA 17 BL 4 ET AC 64 06 09 03 30 30 [...] SH #7 EA 17 4 TR 65 07 09 01 90 30 EC 46 WI Ac AM 16 -2 -1 .0 ON 80 ND ti AD 20 7- 0- 00 OM 18 SO ve OL 62 20 20 Y 1 R [address] WOOD HC 1 UG BE L RT 50 CO E MG IN C TA BL ET DO 00 07 09 01 90 30 EC 72 WI Ac XE 37 -2 -1 .0 ON 88 ND ti PI 83 7- 0- 00 OM 64 SO ve N 12 20 20 Y 3 R [address] WOOD 1 UG BE MG RT CO E CA PS IN UL C E LY 00 07 09 01 12 30 [...] -3 -1 .0 MA 80 YN ti IA 80 1- 0- 00 RT 99 E ve OL 03 20 20 6 VA OL 21 09 09 PH UG 0 AR HN TA M W RT #7 RA 17 TE 4 50 MG TA B EN 64 06 08 02 60 30 [...] TA 17 BL 4 ET AC 64 06 08 02 30 30 K- 68 DU Ac TO 76 -1 -2 .0 MA 76 NN ti S 40 8- 7- 00 RT 76 IN ve 45 45 20 20 0 G 12 09 09 PH MA MG 4 AR LE M SH TA #7 EA BL 17 ET 4 64 06 08 01 30 30 K- [...] 8- 7- 00 RT 77 IN ve ME 21 20 20 0 G DE 61 09 09 PH MA 0 AR LE 40 M SH #7 EA MG 17 4 TA BL ET GL 00 06 08 01 12 60 K- 68 DU Ac YB 09 -1 -2 0. MA 76 NN ti UR 39 8- 7- 00 RT 76 IN ve ID 36 20 20 0 7 G E 40 09 09 PH MA 5 1 AR LE MG M SH #7 EA TA 17 BL 4 ET BU 00 06 08 02 30 [...] SH #7 EA 17 4 TR 65 07 08 00 90 30 EC 46 WI Ac AM 16 -2 -1 .0 ON 80 ND ti AD 20 7- 3- 00 OM 18 SO ve OL 62 20 20 Y 1 R [address] NINA HC 1 UG BE L RT 50 CO E MG IN C TA BL ET ME 00 08 08 11 60 30 K- 68 PA Ac TO 37 -2 -1 .0 MA 58 YN ti IA 80 5- 3- 00 RT 62 E [...] E CA PS IN UL C E DI 00 06 07 01 30 30 K- 68 DU Ac GO 52 -1 -3 .0 MA 76 NN ti X 71 8- 0- 00 RT 76 IN ve 25 32 20 20 4 G 0 50 09 09 PH MA MC 1 AR LE G M SH TA #7 EA BL 17 ET 4 AC 64 06 07 01 30 30 [...] MG 4 TA BL ET 00 04 07 03 90 30 K- 68 DU Ac 59 -1 -3 .0 MA 72 NN ti 13 6- 0- 00 RT 94 IN ve 66 20 20 8 G 50 09 09 PH MA 5 AR LE M SH #7 EA 17 4 FU 00 06 07 01 30 30 K- 68 DU Ac RO 37 -1 -3 .0 MA 76 NN ti SE 80 8- 0- 00 RT 77 IN ve ME 21 20 20 0 G DE 61 09 09 PH MA 0 AR LE 40 M SH #7 EA MG 17 4 TA BL ET EN 64 06 07 01 60 30 K- 68 DU Ac AL 67 -1 -3 .0 MA 76 NN ti AP 90 8- 0- 00 RT 76 IN ve RI 92 20 20 6 G L 60 09 09 PH MA MA 2 AR LE LE M SH AT #7 EA E 17 20 4 MG TA B CR 00 06 07 00 30 30 K- 68 DU Ac ES 31 -1 -3 .0 MA 76 NN ti TO 00 8- 0- 00 RT 76 IN ve R 75 20 20 5 G 10 13 09 09 PH MA 9 AR LE MG M SH #7 EA TA 17 BL 4 ET 64 06 07 00 30 30 K- 68 DU Ac 72 -1 -3 .0 MA 76 NN ti 00 8- 0- 00 RT 76 IN ve 20 20 20 8 G 61 09 09 PH MA 0 AR LE M SH #7 EA 17 4 ME 00 08 07 10 60 30 K- 68 PA Ac TO 37 -2 -1 .0 MA 58 YN ti IA 80 5- 6- 00 RT 62 E ve OL 03 20 20 2 VA OL 21 08 09 PH UG 0 AR HN TA M W RT #7 RA 17 TE 4 50 MG TA B AC 64 06 07 00 30 30 K- 68 DU Ac TO 76 -1 -0 .0 MA 76 NN ti S 40 8- 2- 00 RT 76 IN ve 45 45 20 20 0 G 12 09 09 PH MA MG 4 AR LE M SH TA #7 EA BL 17 ET 4 BU 00 06 07 00 30 30 K- 68 DU Ac SP 37 -1 -0 .0 MA 76 NN ti IR 81 8- 2- 00 RT 76 IN ve ON 15 20 20 3 G E 00 09 09 PH MA HC 1 AR LE L M SH 10 #7 EA 17 MG 4 TA BL ET DO 00 06 07 00 90 30 EC 72 WI Ac XE 37 -2 -0 .0 ON 85 ND ti PI 83 4- 2- 00 OM 21 SO ve N 12 20 20 Y 6 R [address] WOOD 1 UG BE MG RT CO E CA PS IN UL C E DI 00 06 07 00 30 30 K- 68 DU Ac GO 52 -1 -0 .0 MA 76 NN ti X 71 8- 2- 00 RT 76 IN ve 25 32 20 20 4 G 0 50 09 09 PH MA MC 1 AR LE G M SH TA #7 EA BL 17 ET 4 TI 55 06 07 00 60 30 EC 72 WI Ac ZA 11 -2 -0 .0 ON 85 ND ti NI 10 4- 2- 00 OM 21 SO ve DI 18 20 20 Y 7 R NE [address] RO 0 UG BE HC RT L CO E 4 MG IN C TA BL ET LY 00 06 07 00 12 30 EC 46 WI Ac RI 07 -2 -0 0. ON 78 ND ti CA 11 4- 2- 00 OM 71 SO ve 01 20 20 0 Y 5 R [address] RO 0 8 UG BE MG RT CO E CA PS IN UL C E TR 65 06 07 00 90 30 EC 46 WI Ac AM 16 -2 -0 .0 ON 78 ND ti AD 20 4- 2- 00 OM 71 SO ve OL 62 20 20 Y 7 R [address] RO HC 1 UG BE L RT 50 CO E MG IN C TA BL ET FU 00 06 07 00 30 30 K- 68 DU Ac RO 37 -1 -0 .0 MA 76 NN ti SE 80 8- 2- 00 RT 77 IN ve ME 21 20 20 0 G DE 61 09 09 PH MA 0 AR LE 40 M SH #7 EA MG 17 4 TA BL ET EN 64 06 [...] 20 4 MG TA B 00 06 07 00 15 30 K- 88 DU Ac 16 -1 -0 .0 MA 10 NN ti 93 8- 2- 00 RT 13 IN ve 47 20 20 1 G 71 09 09 PH MA 8 AR LE M SH #7 EA 17 4 GL 00 06 07 00 12 60 K- 68 DU Ac YB 09 -1 -0 0. MA 76 NN ti UR 39 8- 2- 00 RT 76 IN ve ID 36 20 20 0 7 G E 40 09 09 PH MA 5 1 AR LE MG M SH #7 EA TA 17 BL 4 ET CR 00 02 06 03 30 30 K- 68 DU Ac ES 31 -1 -1 .0 MA 68 NN ti TO 00 2- 8- 00 RT 82 IN ve R 75 20 20 0 G 10 19 09 09 PH MA 0 AR LE MG M SH #7 EA TA 17 BL 4 ET 00 04 06 02 90 30 K- 68 DU Ac 59 -1 -1 .0 MA 72 NN ti 13 6- 8- 00 RT 94 IN ve 66 20 20 8 G 50 09 09 PH MA 5 AR LE M SH #7 EA 17 4 64 01 06 01 30 30 K- [...] #7 EA BL 17 ET 4 DO 00 05 06 00 90 30 EC 72 WI Ac XE 37 -2 -0 .0 ON 82 ND ti PI 83 7- 4- 00 OM 25 SO ve N 12 20 20 Y 1 R [address] RO 1 UG BE MG RT CO E CA PS IN UL C E TI 55 05 06 00 60 30 EC 72 WI Ac ZA 11 -2 -0 .0 ON 82 ND ti NI 10 7- 4- 00 OM 25 SO ve DI 18 20 20 Y 2 R NE [address] RO 0 UG BE HC RT L CO E 4 MG IN C TA BL ET TR 57 05 06 00 90 30 EC 46 WI Ac AM 66 -2 -0 .0 ON 77 ND ti AD 40 7- 4- 00 OM 41 SO ve OL 37 20 20 Y 3 R [address] RO HC 8 UG BE L RT 50 CO E MG IN C TA BL ET LY 00 05 06 00 12 30 EC 46 WI Ac RI 07 -2 -0 0. ON 77 ND ti CA 11 7- 4- 00 OM 41 SO ve 01 20 20 0 Y 1 R [address] RO 0 8 UG BE MG RT CO E CA PS IN UL C E 65 05 06 00 10 25 EC 72 WI Ac 16 -2 -0 0. ON 82 ND ti 20 7- 4- 00 OM 25 SO ve 15 20 20 0 Y 0 R [address] RO 1 UG BE RT CO E IN C ME 00 08 06 09 60 30 K- 68 PA Ac TO 37 -2 -0 .0 MA 58 YN ti IA 80 5- 4- 00 RT 62 E [...] K UN 4 IT /M L AL IB 53 04 05 01 90 30 [...] 20 4 MG TA B 64 02 05 03 30 30 K- 68 DU Ac 72 -1 -2 .0 MA 68 NN ti 00 2- 1- 00 RT 82 IN ve 20 20 20 1 G 61 09 09 PH MA 0 AR LE M SH #7 EA 17 4 DI 00 02 05 03 30 30 [...] EA TA 17 BL 4 ET ME 65 01 05 03 12 30 K- 68 DU Ac TF 86 -2 -0 0. MA 67 NN ti OR 20 2- 7- 00 RT 52 IN ve ME 00 20 20 0 5 G N 80 09 09 PH MA HC 5 AR LE L M SH 50 #7 EA 0 17 MG 4 TA BL ET 00 01 05 03 12 30 [...] 2- 7- 00 RT 82 IN ve ME 21 20 20 3 G DE 61 09 09 PH MA 0 AR LE 40 M SH #7 EA MG 17 4 TA BL ET ME 00 08 05 08 60 30 K- 68 PA Ac TO 37 -2 -0 .0 MA 58 YN ti IA 80 5- 7- 00 RT 62 E ve OL 03 20 20 2 VA OL 21 08 09 PH UG 0 AR HN TA M W RT #7 RA 17 TE 4 50 MG TA B 65 04 05 00 11 28 EC 72 WI Ac 16 -2 -0 2. ON 78 ND ti 20 4- 7- 00 OM 52 SO ve 15 20 20 0 Y 5 R [address] WOOD 1 UG BE RT CO E IN C LY 00 04 05 00 12 30 EC 46 WI Ac RI 07 -2 -0 0. ON 75 ND ti CA 11 4- 7- 00 OM 90 SO ve 01 20 20 0 Y 1 R 15 66 09 09 RO 0 8 UG BE MG RT CO E CA PS IN UL C E TR 57 04 05 00 15 30 EC 46 WI Ac AM 66 -2 -0 0. ON 76 ND ti AD 40 8- 7- 00 OM 00 SO ve OL 37 20 20 0 Y 0 R [address] WOOD HC 8 UG BE L RT 50 CO E MG IN C TA BL ET DO 00 04 05 00 90 30 EC 72 WI Ac XE 37 -2 -0 .0 ON 78 ND ti PI 83 4- 7- 00 OM 52 SO ve N 12 20 20 Y 4 R [address] WOOD 1 UG BE MG RT CO E CA PS IN UL C E TI 55 04 05 00 60 30 EC 72 WI Ac ZA 11 -2 -0 .0 ON 78 ND ti NI 10 4- 7- 00 OM 52 SO ve DI 18 20 20 Y 3 R NE [address] WOOD 0 UG BE HC RT L CO E 4 MG IN C TA BL ET NO 00 03 05 01 10 30 K- 88 Ac VO 16 -2 -0 .0 MA 09 ND ti LI 91 4- 7- 00 RT 90 UM ve N 83 20 20 9 AL 70 71 09 09 PH LA -3 1 AR 0 M GO 10 #7 PI 0 17 K UN 4 IT /M L AL IB 53 04 04 00 90 30 K- 68 DU Ac UP 74 -1 -2 .0 MA 72 NN ti RO 60 6- 3- 00 RT 94 IN ve FE 46 20 20 8 G N 60 09 09 PH MA 80 5 AR LE 0 M SH MG #7 EA 17 TA 4 BL ET EN 64 02 04 02 60 30 [...] SH #7 EA 17 4 DI 00 02 04 02 30 30 [...] EA BL 17 ET 4 FU 00 02 04 02 30 30 K- 68 DU Ac RO 37 -1 -2 .0 MA 68 NN ti SE 80 2- 3- 00 RT 82 IN ve ME 21 20 20 3 G DE 61 09 09 PH MA 0 AR LE 40 M SH #7 EA MG 17 4 TA BL ET 00 03 04 01 30 30 K- [...] 2- 3- 00 RT 52 IN ve ME 00 20 20 0 5 G N 80 09 09 PH MA HC 5 AR LE L M SH 50 #7 EA 0 17 MG 4 TA BL ET CR 00 02 [...] 0. MA 67 NN ti 11 9- 9- 00 RT 94 IN ve 19 [...] ON 74 ND ti CA 11 5- 9- 00 OM 48 SO ve 01 20 20 0 Y 2 R [address] RO 0 8 UG BE MG RT CO E CA PS IN UL C E TR 57 03 04 00 15 30 EC 46 WI Ac AM 66 -2 -0 0. ON 74 ND ti AD 40 5- 9- 00 OM 48 SO ve OL 37 20 20 0 Y 3 R [address] RO HC 8 UG BE L RT 50 CO E MG IN C TA BL ET AZ 50 03 04 00 6. 5 [...] MA 09 ND ti LI 91 4- 9- 00 RT 90 UM ve N 83 20 20 9 AL 70 71 09 09 PH LA -3 1 AR 0 M GO 10 #7 PI 0 17 K UN 4 IT /M L AL ME 00 08 04 07 60 30 K- 68 PA Ac TO 37 -2 -0 .0 MA 58 YN ti IA 80 5- 9- 00 RT 62 E ve OL 03 20 20 2 VA OL 21 08 09 PH UG 0 AR HN TA M W RT #7 RA 17 TE 4 50 MG TA B EN 64 02 03 01 60 30 K- 68 DU Ac AL 67 -1 -2 .0 MA 68 NN ti AP 90 2- 6- 00 RT 82 IN ve RI 92 20 20 4 G L 60 09 09 PH MA MA 2 AR LE LE M SH AT #7 EA E 17 20 4 MG TA B FU 00 02 03 01 30 30 K- 68 DU Ac RO 37 -1 -2 .0 MA 68 NN ti SE 80 2- 6- 00 RT 82 IN ve ME 21 20 20 3 G DE 61 09 09 PH MA 0 AR LE 40 M SH #7 EA MG 17 4 TA BL ET 00 03 03 00 30 30 K- 68 DU Ac 37 -1 -2 .0 MA 71 NN ti 80 9- 6- 00 RT 27 IN ve 75 20 20 6 G 50 09 09 PH MA 1 AR LE M SH #7 EA 17 4 IB 53 03 03 00 90 30 K- 68 DU Ac UP 74 -1 -2 .0 MA 71 NN ti RO 60 9- 6- 00 RT 27 IN ve FE 46 20 20 7 G N 60 09 09 PH MA 80 5 AR LE 0 M SH MG #7 EA 17 TA 4 BL ET TR 65 03 03 00 60 15 CE 34 DU Ac AM 16 -1 -2 .0 DA 79 NN ti AD 20 6- 6- 00 R 90 IN ve OL 62 20 20 TR G 71 09 09 AC MA HC 1 E LE L PH SH 50 M EA IN MG C TA BL ET CR 00 02 03 00 30 30 K- 68 DU Ac ES 31 -1 -2 .0 MA 68 NN ti TO 00 2- 6- 00 RT 82 IN ve R 75 20 20 0 G 10 19 09 09 PH MA 0 AR LE MG M SH #7 EA TA 17 BL 4 ET DI 00 02 03 01 30 30 K- 68 DU Ac GO 52 -1 -2 .0 MA 68 NN ti X 71 2- 6- 00 RT 82 IN ve 25 32 20 20 5 G 0 50 09 09 PH MA MC 1 AR LE G M SH TA #7 EA BL 17 ET 4 AC 64 01 03 02 30 30 K- 68 DU Ac TO 76 -2 -2 .0 MA 67 NN ti S 40 2- 6- 00 RT 52 IN ve 45 45 20 20 4 G 12 09 09 PH MA MG 4 AR LE M SH TA #7 EA BL 17 ET 4 64 02 03 01 30 30 [...] 2- 6- 00 RT 52 IN ve ME 00 20 20 0 5 G N 80 09 09 PH MA HC 5 AR LE L M SH 50 #7 EA 0 17 MG 4 TA BL ET 00 01 03 [...] -2 -1 .0 MA 58 YN ti IA 80 5- 2- 00 RT 62 E [...] #7 TA 17 BL 4 ET DI 00 02 02 00 30 30 K- 68 DU Ac GO 52 -1 -2 .0 MA 68 NN ti X 71 2- 6- 00 RT 82 IN ve 25 32 20 20 5 G 0 50 09 09 PH MA MC 1 AR LE G M SH TA #7 EA BL 17 ET 4 EN 64 02 02 00 60 30 K- 68 DU Ac AL 67 -1 -2 .0 MA 68 NN ti AP 90 2- 6- 00 RT 82 IN ve RI 92 20 20 4 G L 60 09 09 PH MA MA 2 AR LE LE M SH AT #7 EA E 17 20 4 MG TA B 64 02 02 00 30 30 K- 68 DU Ac 72 -1 -2 .0 MA 68 NN ti 00 2- 6- 00 RT 82 IN ve 20 20 20 1 G 61 09 09 PH MA 0 AR LE M SH #7 EA 17 4 AC 64 01 02 01 30 30 [...] EA 17 MG 4 TA BL ET FU 00 02 02 00 30 30 K- 68 DU Ac RO 37 -1 -2 .0 MA 68 NN ti SE 80 2- 6- 00 RT 82 IN ve ME 21 20 20 3 G DE 61 09 09 PH MA 0 AR LE 40 M SH #7 EA MG 17 4 TA BL ET 68 02 02 00 20 10 K- [...] IA PS 4 M UL H E 63 02 02 00 18 6 CE 34 CL Ac 30 -0 -1 .0 DA 63 AR ti 40 2- 2- 00 R 15 K ve 65 20 20 TR BR 40 09 09 AC EN 1 E T PH G M IN C DO 49 09 02 04 30 30 CE 34 UP Ac XE 88 -3 -1 .0 DA 13 AD ti PI 40 0- 2- 00 R 64 HY ve N 21 20 20 TR AY 25 80 08 09 AC 1 E SH MG PH AI M LE CA IN SH PS C P UL E ME 00 08 02 05 60 30 K- 68 PA Ac TO 37 -2 -1 .0 MA 58 YN ti IA 80 5- 2- 00 RT 62 E ve OL 03 20 20 2 VA OL 21 08 09 PH UG 0 AR HN TA M W RT #7 RA 17 TE 4 50 MG TA B 64 01 01 00 30 30 K- 68 DU Ac 72 -1 -3 .0 MA 67 NN ti 00 3- 0- 00 RT 01 IN ve 20 20 20 1 G 61 09 09 PH MA 0 AR LE M SH #7 EA 17 4 EN 64 07 01 06 30 30 K- 68 PA Ac AL 67 -2 -3 .0 MA 56 YN ti AP 90 1- 0- 00 RT 22 E ve RI 92 20 20 8 VA L 60 08 09 PH UG MA 2 AR HN LE M W AT #7 E 17 20 4 MG TA B CR 00 07 01 05 30 30 [...] TA 4 BL ET FU 00 07 01 06 30 30 K- 68 PA Ac RO 37 -2 -3 .0 MA 56 YN ti SE 80 1- 0- 00 RT 23 E ve ME 21 20 20 0 VA DE 61 08 09 PH UG 0 AR HN 40 M W #7 MG 17 4 TA BL ET 00 01 01 00 30 30 K- 68 DU Ac 37 -1 -3 .0 MA 67 NN ti 80 3- 0- 00 RT 01 IN ve 75 20 20 3 G 50 09 09 PH MA 1 AR LE M SH #7 EA 17 4 AM 66 01 01 00 20 10 K- 68 DU Ac OX 68 -1 -3 .0 MA 67 NN ti -C 51 3- 0- 00 RT 01 IN ve LA 00 20 20 4 G V 10 09 09 PH MA 87 0 AR LE 5- M SH 12 #7 EA 5 17 MG 4 TA BL ET AC 64 01 01 00 30 30 K- 68 DU Ac TO 76 -2 -3 .0 MA 67 NN ti S 40 2- 0- 00 RT 52 IN ve 45 45 20 20 4 G 12 09 09 PH MA MG 4 AR LE M SH TA #7 EA BL 17 ET 4 ME 65 01 01 00 12 30 K- 68 DU Ac TF 86 -2 -3 0. MA 67 NN ti OR 20 2- 0- 00 RT 52 IN ve ME 00 20 20 0 5 G N 80 09 09 PH MA HC 5 AR LE L M SH 50 #7 EA 0 17 MG 4 TA BL ET IA 00 01 01 00 24 6 EC 46 DU Ac OM 60 -1 -3 0. ON 71 NN ti ET 31 9- 0- 00 OM 52 IN ve CASTELAN 58 20 20 0 Y 9 G ZI [address] MA NE 8 UG LE -C SH OD CO EA EI NE IN C SY RU P DO 49 09 01 03 30 30 [...] 17 K 4 CA PS UL E LY 00 10 01 01 90 30 K- 44 ME Ac RI 07 -2 -0 .0 MA 53 CK ti CA 11 8- 1- 00 RT 16 ve 01 20 20 6 GR 15 66 08 09 PH EG 0 8 AR OR MG M Y #7 E CA 17 PS 4 UL E EN 64 07 01 05 30 30 K- 68 PA Ac AL 67 -2 -0 .0 MA 56 YN ti AP 90 1- RT 22 E ve RI 92 20 [...] TA 17 BL 4 ET GL 00 10 01 02 30 30 K- 68 Ac YB 09 -2 -0 .0 MA 61 ND ti UR 39 2- 1- RT 98 UM ve ID 36 20 20 4 AL E 40 08 09 PH LA 5 1 AR MG M GO #7 PI TA 17 K BL 4 ET FU 00 07 01 05 30 30 K- 68 PA Ac RO 37 -2 -0 .0 MA 56 YN ti SE 80 1- - RT 23 E ve ME 21 20 20 0 VA DE 61 08 09 PH UG 0 AR HN 40 M W #7 MG 17 4 TA BL ET DI 57 07 01 05 30 30 K- 68 PA Ac GO 66 -2 -0 .0 MA 56 YN ti XI 40 1- - RT 22 E ve N 44 20 20 9 VA 0. 18 08 09 PH UG 25 8 AR HN M W MG #7 17 TA 4 BL ET ME 00 08 01 04 60 30 K- 68 PA Ac TO 37 -2 -0 .0 MA 58 YN ti IA 80 5- 1- 00 RT 62 E [...] PI TA 17 K BL 4 ET CR 00 07 12 03 30 30 K- 68 PA Ac ES 31 -2 -0 .0 MA 56 YN ti TO 00 1- 4- 00 RT 22 E ve R 75 20 20 7 VA 10 19 08 08 PH UG 0 AR HN MG M W #7 TA 17 BL 4 ET DI 57 07 12 04 30 30 K- 68 PA Ac GO 66 -2 -0 .0 MA 56 YN ti XI 40 1- 4- 00 RT 22 E ve N 44 20 20 9 VA 0. 18 08 08 PH UG 25 8 AR HN M W MG #7 17 TA 4 BL ET FU 00 07 12 04 30 30 K- 68 PA Ac RO 37 -2 -0 .0 MA 56 YN ti SE 80 1- 4- 00 RT 23 E ve ME 21 20 20 0 VA DE 61 08 08 PH UG 0 AR HN 40 M W #7 MG 17 4 TA BL ET ME 00 08 12 03 60 30 K- 68 PA Ac TO 37 -2 -0 .0 MA 58 YN ti IA 80 5- 4- 00 RT 62 E ve OL 03 20 20 2 VA OL 21 08 08 PH UG 0 AR HN TA M W RT #7 RA 17 TE 4 50 MG TA B TR 00 10 12 01 12 30 K- 68 ME Ac AM 37 -2 -0 0. MA 62 CK ti AD 84 8- 4- 00 RT 29 ve OL 15 20 20 0 9 GR 10 08 08 PH EG HC 5 AR OR L M Y 50 #7 E 17 MG 4 TA BL ET EN 64 07 12 04 30 30 K- 68 PA Ac AL 67 -2 -0 .0 MA 56 YN ti AP 90 1- 4- RT 22 E ve RI 92 20 20 8 VA L 60 08 08 PH UG MA 2 AR HN LE M W AT #7 E 17 20 4 MG TA B DO 49 09 11 01 30 30 CE 34 UP Ac XE 88 -3 -2 .0 DA 13 AD ti PI 40 0- 0- 00 R 64 HY ve N 21 20 20 TR AY 25 80 08 08 AC 1 E SH MG PH AI M LE CA IN SH PS C P UL E RO 00 10 11 01 30 30 K- 68 CO Ac PI 05 -1 -2 .0 MA 61 LL ti NI 40 4- 0- 00 RT 45 IN ve RO 11 20 20 0 S LE 92 08 08 PH PA 5 AR TR HC M IC L #7 K 2 17 W MG 4 TA BL ET CR 00 07 11 02 30 30 K- 68 PA Ac ES 31 -2 -0 .0 MA 56 YN ti TO 00 7 RT 22 E ve R 75 20 20 7 VA 10 19 08 08 PH UG 0 AR HN MG M W #7 TA 17 BL 4 ET GL 00 10 11 00 30 30 K- 68 Ac YB 09 -2 -0 .0 MA 61 ND ti UR 39 2- 7- 00 RT 98 UM ve ID 36 20 20 4 AL E 40 08 08 PH LA 5 1 AR MG M GO #7 PI TA 17 K BL 4 ET EN 64 07 11 03 30 30 K- 68 PA Ac AL 67 -2 -0 .0 MA 56 YN ti AP 90 1- 7- RT 22 E ve RI 92 20 20 8 VA L 60 08 08 PH UG MA 2 AR HN LE M W AT #7 E 17 20 4 MG TA B LY 00 10 11 00 90 30 K- 44 ME Ac RI 07 -2 -0 .0 MA 53 CK ti CA 11 8- 7- 00 RT 16 ve 01 20 20 6 GR 15 66 08 08 PH EG 0 8 AR OR MG M Y #7 E CA 17 PS 4 UL E 00 10 11 00 12 30 K- 44 ME Ac 40 -2 -0 0. MA 53 CK ti 60 8- 7- RT 16 ve 36 20 20 0 5 GR 30 08 08 PH EG 5 AR OR M Y #7 E 17 4 TR 00 10 11 00 12 30 K- 68 ME Ac AM 37 -2 -0 0. MA 62 CK ti AD 84 8 RT 29 ve OL 15 20 20 0 9 GR 10 08 08 PH EG HC 5 AR OR L M Y 50 #7 E 17 MG 4 TA BL ET ME 00 08 11 02 60 30 K- 68 PA Ac TO 37 -2 -0 .0 MA 58 YN ti IA 80 5- 7 RT 62 E ve OL 03 20 20 2 VA OL 21 08 08 PH UG 0 AR HN TA M W RT #7 RA 17 TE 4 50 MG TA B FU 00 07 11 03 30 30 K- 68 PA Ac RO 37 -2 -0 .0 MA 56 YN ti SE 80 RT 23 E ve ME 21 20 20 0 VA DE 61 08 08 PH UG 0 AR HN 40 M W #7 MG 17 4 TA BL ET DI 57 07 11 03 30 30 K- 68 PA Ac GO 66 -2 -0 .0 MA 56 YN ti XI 40 RT 22 E ve N 44 20 20 9 VA 0. 18 08 08 PH UG 25 8 AR HN M W MG #7 17 TA 4 BL ET RO 00 10 10 00 [...] .0 ON 30 TI ti CE 10 OM 70 SO ve T 60 20 20 Y 5 5- [address] AN [address] 5 EW TA CO M BL ET IN C DI 57 07 10 02 30 30 K- 68 PA Ac GO 66 -2 -0 .0 MA 56 YN ti XI 40 RT 22 E ve N 44 20 20 9 VA 0. 18 08 08 PH UG 25 8 AR HN M W MG #7 17 TA 4 BL ET EN 64 07 10 02 30 30 K- 68 PA Ac AL 67 -2 -0 .0 MA 56 YN ti AP 90 1 9 RT 22 E ve RI 92 20 20 8 VA L 60 08 08 PH UG MA 2 AR HN LE M W AT #7 E 17 20 4 MG TA B CR 00 07 10 01 30 30 K- 68 PA Ac ES 31 -2 -0 .0 MA 56 YN ti TO 00 1 9 RT 22 E ve R 75 20 20 7 VA 10 19 08 08 PH UG 0 AR HN MG M W #7 TA 17 BL 4 ET ME 00 08 10 01 60 30 K- 68 PA Ac TO 37 -2 -0 .0 MA 58 YN ti IA 80 5- 9- RT 62 E ve OL 03 20 20 2 VA OL 21 08 08 PH UG 0 AR HN TA M W RT #7 RA 17 TE 4 50 MG TA B FU 00 07 10 02 30 30 K- 68 PA Ac RO 37 -2 -0 .0 MA 56 YN ti SE 80 1 9- RT 23 E ve ME 21 20 20 0 VA DE 61 08 08 PH UG 0 AR HN 40 M W #7 MG 17 4 TA BL ET GL 00 07 10 02 30 30 K- 68 Ac YB 09 -2 -0 .0 MA 56 ND ti UR 39 2- 9- RT 24 UM ve ID 36 20 [...] SH MG C P TA BL ET TR 65 09 09 00 12 30 [...] IN SH PS C P UL E DO 49 09 09 00 30 30 CE 34 UP Ac XE 88 -0 -1 .0 DA 01 AD ti PI 40 2- 1- 00 R 93 HY ve N 21 20 20 TR AY 25 80 08 08 AC 1 E SH MG PH AI M LE CA IN SH PS C P UL E DI 57 07 09 01 30 30 K- 68 PA Ac GO 66 -2 -1 .0 MA 56 YN ti XI 40 1 RT 22 E ve N 44 20 20 9 VA 0. 18 08 08 PH UG 25 8 AR HN M W MG #7 17 TA 4 BL ET FU 00 07 09 01 30 30 K- 68 PA Ac RO 37 -2 -1 .0 MA 56 YN ti SE 80 1- - RT 23 E ve ME 21 20 20 0 VA DE 61 08 08 PH UG 0 AR HN 40 M W #7 MG 17 4 TA BL ET ME 00 08 09 00 60 30 K- 68 PA Ac TO 37 -2 -1 .0 MA 58 YN ti IA 80 5- 1- RT 62 E ve OL 03 20 20 2 VA OL 21 08 08 PH UG 0 AR HN TA M W RT #7 RA 17 TE 4 50 MG TA B OX 00 08 09 00 10 2 [...] MA 56 YN ti AP 90 1 8 RT 22 E ve RI 92 20 20 8 VA L 60 08 08 PH UG MA 2 AR HN LE M W AT #7 E 17 20 4 MG TA B CR 00 07 08 00 30 30 K- 68 PA Ac ES 31 -2 -2 .0 MA 56 YN ti TO 00 1- 8- 00 RT 22 E ve R 75 [...] K BL 4 ET DI 57 07 08 00 30 30 K- 68 PA Ac GO 66 -2 -1 .0 MA 56 YN ti XI 40 1- 4- 00 RT 22 E ve N 44 20 20 9 VA 0. 18 08 08 PH UG 25 8 AR HN M W MG #7 17 TA 4 BL ET 00 08 08 00 60 1 K- 68 Ac 05 -0 -1 .0 MA 56 ND ti 40 4- 4- 00 RT 99 UM ve 16 20 20 7 AL 56 08 08 PH LA 3 AR M GO #7 PI 17 K 4 FU 00 07 08 00 30 30 K- 68 PA Ac RO 37 -2 -1 .0 MA 56 YN ti SE 80 1- 4- 00 RT 23 E ve ME 21 20 20 0 VA DE 61 08 08 PH UG 0 AR HN 40 M W #7 MG 17 4 TA BL ET TO 00 06 08 00 60 30 K- 68 BA Ac IA 18 -1 -1 .0 MA 53 IL [...] MG 4 R M TA BL ET GE 60 06 08 00 60 30 K- 68 BA Ac MF 50 -1 -0 .0 MA 53 IL ti IB 50 2- 1- 00 RT 98 EY ve RO 03 20 20 9 ZI 40 08 08 PH CH L 8 AR RI [address] 0 #7 OP MG 17 HE 4 R TA M BL ET GL 00 07 08 00 30 30 K- 68 Ac YB 09 -2 -0 .0 MA 56 ND ti UR 39 2- 1- 00 RT 24 UM ve ID 36 20 20 8 AL E 40 08 08 PH LA 5 1 AR MG M GO #7 PI TA 17 K BL 4 ET EN 64 07 08 00 30 30 K- 68 PA Ac AL 67 -2 -0 .0 MA 56 YN ti AP 90 RT 22 E ve RI 92 20 20 8 VA L 60 08 08 PH UG MA 2 AR HN LE M W AT #7 E 17 20 4 MG TA B AC 64 06 07 00 30 30 K- 68 BA Ac TO 76 -1 -1 .0 MA 53 IL ti S 40 05-23- RT 98 EY ve 30 30 20 20 5 11 08 08 PH CH MG [address] TA #7 OP BL 17 HE ET 4 R M DI 57 06 07 00 30 30 K- 68 BA Ac GO 66 -1 -1 .0 MA 53 IL ti XI 40 RT 98 EY ve N 44 20 20 1 0. 18 08 08 PH CH [address] MG #7 OP 17 HE TA 4 R BL M ET LY 00 06 07 00 90 30 K- 44 BA Ac RI 07 -1 -1 .0 MA 51 IL ti CA 11 RT 76 EY ve 01 20 20 7 15 66 08 08 PH CH 0 8 AR RI MG M ST #7 OP CA 17 HE PS 4 R UL M E FL 00 06 07 00 16 30 K- 68 BA Ac UT 05 -1 -1 .0 MA 53 IL ti IC 43 RT 97 EY ve 27 20 20 9 ON 09 08 08 PH CH E 9 AR RI IA M ST OP #7 OP 17 HE 50 4 R M MC G SP RA Y CR 00 06 07 00 30 30 K- 68 BA Ac ES 31 -1 -1 .0 MA 53 IL ti TO 00 RT 98 EY ve R 75 20 20 4 10 19 08 08 PH CH 0 AR RI MG M ST #7 OP TA 17 HE BL 4 R ET M 00 06 07 00 90 30 K- 68 BA Ac 14 -1 -1 .0 MA 53 IL ti 31 2- 7- RT 98 EY ve 34 20 20 7 80 08 08 PH CH [address] #7 OP 17 HE 4 R M FU 00 06 07 00 30 30 K- 68 BA Ac RO 37 -1 -1 .0 MA 53 IL ti SE 80 2- 7- 00 RT 98 EY ve ME 21 20 20 2 DE 61 08 08 PH CH 0 AR RI [address] #7 OP MG 17 HE 4 R TA M BL ET RO 00 06 07 00 30 30 [...] #7 OP 17 HE 4 R M TR 00 05 07 01 24 [...] #7 OP 17 HE 4 R M TR 00 06 07 00 30 30 K- 68 BA Ac IC 07 -1 -0 .0 MA 53 IL ti OR 46 2- 3- 00 RT 99 EY ve 12 20 20 1 14 39 08 08 PH CH 5 0 AR RI MG M ST #7 OP TA 17 HE BL 4 R ET M GL 00 06 07 00 30 [...] 10 4 R M MG TA B 00 04 06 02 90 30 CE 33 BA Ac 60 -0 -1 .0 DA 53 IL ti 33 4- 2- 00 R 53 EY ve 33 20 20 TR 83 08 08 AC CH [address] M OP IN HE C R M DI 00 04 06 01 60 30 CE 33 BA Ac AZ 59 -1 -1 .0 DA 55 IL ti EP 15 0- 2- 00 R 50 EY ve AM 62 20 20 TR 2 10 08 08 AC CH 1 E RI MG PH ST M OP TA IN HE BL C R ET M IA 68 05 06 00 12 4 K- 68 HU Ac OM 38 -3 -1 .0 MA 53 NT ti ET 20 1- 2- 00 RT 23 ER ve CASTELAN 04 20 20 6 ZI 10 08 08 PH BR NE 1 AR IA M N 25 #7 17 MG 4 TA BL ET 64 04 06 02 30 30 CE [...] 4 R M TA BL ET 00 03 06 02 60 30 CE [...] 08 AC la E 9 E bl IA PH e OP M IN 50 C MC G SP RA Y LY 00 03 06 02 90 30 CE 33 No Ac RI 07 -2 -0 .0 DA 49 t ti CA 11 4- 5- 00 R 40 Av ve 01 20 20 TR ai 15 66 08 08 AC la 0 8 E bl MG PH e M CA IN PS C UL E AC 64 03 06 02 30 30 CE 33 No Ac TO 76 -2 -0 .0 DA 49 t ti S 40 4- 5- 00 R 50 Av ve 30 30 20 20 TR ai 11 08 08 AC la MG 4 E bl PH e TA M BL IN ET C GE 00 03 06 02 60 30 [...] 1 IN MG C TA BL ET FU 00 03 06 02 30 30 CE 33 No Ac RO 78 -2 -0 .0 DA 49 t ti SE 11 4- 5- 00 R 51 Av ve ME 96 20 20 TR ai DE 61 08 08 AC la 0 E bl 40 PH e M MG IN C TA BL ET 49 03 06 [...] TA IN BL C ET 67 03 06 02 90 30 CE [...] IN C TA BL ET 00 03 06 02 30 30 CE 33 No Ac 17 -2 -0 .0 DA 49 t ti 30 4- 5- 00 R 42 Av ve 24 20 20 TR ai 95 08 08 AC la 5 E bl PH e M IN C 57 03 06 02 60 30 CE 33 No Ac 66 -2 -0 .0 DA 49 t ti 40 4- 5- 00 R 52 Av ve 16 20 20 TR ai 61 08 08 AC la 8 E bl PH e M IN C 00 05 05 00 18 7 CE [...] IN 10 C MG TA B 00 04 05 01 90 30 CE 33 No Ac 60 -0 -2 .0 DA 53 t ti 33 4- 2- 00 R 53 Av ve 33 20 20 TR ai 83 08 08 AC la 2 E bl PH e M IN C AC 64 03 05 01 30 30 CE 33 No Ac TO 76 -2 -0 .0 DA 49 t ti S 40 4- 8- 00 R 50 Av ve 30 30 20 20 TR ai 11 08 08 AC la MG 4 E bl PH e TA M BL IN ET C DI 00 04 05 00 60 30 CE 33 No Ac AZ 59 -1 -0 .0 DA 55 t ti EP 15 0- 8- 00 R 50 Av ve AM 62 20 20 TR ai 2 10 08 08 AC la 1 E bl MG PH e M TA IN BL C ET LY 00 03 05 01 90 30 CE 33 No Ac RI 07 -2 -0 .0 DA 49 t ti CA 11 4- 8- 00 R 40 Av ve 01 20 20 TR ai 15 66 08 08 AC la 0 8 E bl MG PH e M CA IN PS C UL E LO 00 03 05 01 30 30 CE 33 No Ac RA 78 -2 -0 .0 DA 49 t ti TA 15 4- 8- 00 R 44 Av ve DI 07 20 20 TR ai NE 70 08 08 AC la 1 E bl 10 PH e M MG IN C TA BL ET 67 03 05 01 90 30 [...] 4- 8- 00 R 51 Av ve ME 96 20 20 TR ai DE 61 08 08 AC la 0 E bl 40 PH e M MG IN C TA BL ET FL 00 03 05 01 16 25 CE 33 No Ac UT 05 -2 -0 .0 DA 49 t ti IC 43 4- 8- 00 R 43 Av ve 27 20 20 TR ai ON 09 08 08 AC la E 9 E bl IA PH e OP M IN 50 C MC G SP RA Y RE 00 04 05 00 30 30 CE 33 No Ac QU 00 -2 -0 .0 DA 60 t ti IP 74 8- 8- R 08 Av ve 1 89 20 20 TR ai 22 08 08 AC la MG 0 E bl PH e TA M BL IN ET C 62 03 05 01 30 30 CE 33 No Ac 79 -2 -0 .0 DA 49 t ti 40 4- 8- 00 R 42 Av ve 14 20 20 TR ai 60 08 08 AC la 1 E bl PH e M IN C 57 03 05 01 60 30 CE 33 No Ac 66 -2 -0 .0 DA 49 t ti 40 4 8- 00 R 52 Av ve 16 [...] .0 DA 49 t ti TO 00 8 R 49 Av ve R 75 20 20 TR ai 10 19 08 08 AC la 0 E bl MG PH e M TA IN BL C ET 64 04 05 01 30 30 CE [...] IN C TA BL ET 00 04 05 00 18 3 CE 33 No Ac 47 -2 -0 0. DA 60 t ti 21 8- 8- 00 R 06 Av ve 62 20 20 0 TR ai 71 08 08 AC la 6 E bl PH e M IN C 49 03 05 01 60 30 CE 33 No Ac 88 -2 -0 .0 DA 49 t ti 40 4- 8- 00 R 47 Av ve 54 20 20 TR ai 40 08 08 AC la 5 E bl PH e M IN C CLARK 53 04 04 00 14 [...] 0. DA 49 t ti AP 24 4 4 00 R 41 Av ve RI 03 20 20 0 TR ai L 90 08 08 AC la MA 1 E bl LE PH e AT M E IN 10 C MG TA B DI 57 03 04 00 30 30 K- 68 No Ac GO 66 -1 -1 .0 MA 48 t ti XI 40 8- 7- 00 RT 60 Av ve N 44 20 20 6 ai 0. 18 08 08 PH la 25 8 AR bl M e MG #7 17 TA 4 BL ET CR 00 03 04 00 30 30 K- 68 No Ac ES 31 -1 -1 .0 MA 48 t ti TO 00 8 7 RT 60 Av ve R 75 20 20 8 ai 10 19 08 08 PH la 0 AR bl MG M e #7 TA 17 BL 4 ET LY 00 03 04 00 90 30 K- 44 No Ac RI 07 -1 -1 .0 MA 50 t ti CA 11 8- 7- 00 RT 91 Av ve 01 20 20 6 ai 15 66 08 08 PH la 0 8 AR bl MG M e #7 CA 17 PS 4 UL E FU 00 03 04 00 30 30 K- 68 No Ac RO 37 -1 -1 .0 MA 48 t ti SE 80 8- 7- 00 RT 60 Av ve ME 21 20 20 5 ai DE 61 [...] AR bl M e #7 17 4 64 03 04 00 60 30 K- [...] -1 -1 .0 MA 48 t ti IA 80 8- 7- 00 RT 60 Av ve OL 03 20 20 2 ai OL 21 08 08 PH la 0 AR bl TA M e RT #7 RA 17 TE 4 50 MG TA B AC 64 03 04 [...] e #7 TA 17 BL 4 ET 00 04 04 00 90 30 CE [...] 3- 0- 00 R 01 Av ve ME 03 20 20 TR ai N 00 08 08 AC la HC 5 E bl L PH e 1, M 00 IN 0 C MG TA BL ET 49 03 04 00 60 30 CE 33 No Ac 88 -2 -1 .0 DA 49 t ti 40 4- 0- 00 R 47 Av ve 54 20 20 TR ai 40 08 08 AC la 5 E bl PH e M IN C 62 03 04 00 30 30 CE 33 No Ac 79 -2 -1 .0 DA 49 t ti 40 4- 0- 00 R 42 Av ve 14 20 20 TR ai 60 08 08 AC la 1 E bl PH e M IN C LO 00 03 04 00 30 30 [...] 4- 0- 00 R 51 Av ve ME 96 20 20 TR ai DE 61 [...] e TA M BL IN ET C 67 03 04 00 90 30 CE 33 No Ac 25 -2 -1 .0 DA 49 t ti 30 4- 0- 00 R 48 Av ve 62 20 20 TR ai 25 08 08 AC la 0 E bl PH e M IN C FL 00 03 04 00 16 25 CE 33 No Ac UT 05 -2 -1 .0 DA 49 t ti IC 43 4- 0- 00 R 43 Av ve 27 20 20 TR ai ON 09 08 08 AC la E 9 E bl IA PH e OP M IN 50 C [...] M MG IN C TA BL ET RE 00 02 04 02 30 30 CE 33 No Ac QU 00 -0 -1 .0 DA 36 t ti IP 74 8- 0- 00 R 56 Av ve 1 89 20 20 TR ai 22 08 08 AC la MG 0 E bl PH e TA M BL IN ET C 64 04 04 00 30 30 CE 33 No Ac 01 -0 -1 .0 DA 52 t ti 10 1- 0- 00 R 99 Av ve 16 20 20 TR ai 32 08 08 AC la 6 E bl PH e M IN C LY 00 03 04 00 90 30 CE 33 No Ac RI 07 -2 -1 .0 DA 49 t ti CA 11 4- 0- 00 R 40 Av ve 01 20 20 TR ai 15 66 08 08 AC la 0 8 E bl MG PH e M CA IN PS C UL E CR 00 03 04 00 30 30 CE 33 No Ac ES 31 -2 -1 .0 DA 49 t ti TO 00 4- 0- 00 R 49 Av ve R 75 20 20 TR ai 10 19 08 08 AC la 0 E bl MG PH e M TA IN BL C ET DI 00 01 04 02 60 30 EC 46 No Ac AZ 37 -2 -1 .0 ON 58 t ti EP 80 9- 0- 00 OM 43 Av ve AM 27 20 20 Y 4 ai [address] la 1 UG bl MG e CO TA BL IN ET C RE 00 02 [...] e CO TA BL IN ET C ME 00 08 03 02 60 30 K- 68 No Ac TO 37 -2 -2 .0 MA 43 t ti IA 80 7- 6- 00 RT 16 Av [...] TA M BL IN ET C 00 08 03 02 90 30 K- 68 No Ac 14 -2 -2 .0 MA 43 t ti 31 7- 6- 00 RT 16 Av ve 34 20 20 3 ai 80 07 08 PH la 1 AR bl M e #7 17 4 AC 64 08 03 02 30 30 [...] 1- 6- 00 R 69 Av ve ME 02 20 20 0 TR ai N 80 07 08 AC la HC 5 E bl L PH e 50 M 0 IN MG C TA BL ET EN 64 08 03 02 12 30 K- 68 No Ac AL 67 -2 -2 0. MA 43 t ti AP 90 7- 6- 00 RT 17 Av ve RI 92 20 20 0 7 ai L 50 07 08 PH la MA 2 AR bl LE M e AT #7 E 17 10 4 MG TA B FU 00 08 03 02 30 30 K- 68 No Ac RO 37 -2 -2 .0 MA 43 t ti SE 80 7- 6- 00 RT 16 Av ve ME 21 20 20 1 ai DE 61 07 08 PH la 0 AR bl 40 M e #7 MG 17 4 TA BL ET TR 00 08 03 02 30 30 K- 68 No Ac IC 07 -2 -2 .0 MA 43 t ti OR 46 7- 6- 00 RT 16 Av ve 12 20 20 4 ai 14 39 07 08 PH la 5 0 AR bl MG M e #7 TA 17 BL 4 ET 00 01 03 00 60 30 EC 46 No Ac 55 -2 -2 .0 ON 58 t ti 50 9- 6- 00 OM 43 Av ve 16 20 20 Y 4 ai [address] la 2 UG bl e CO IN C LY 00 12 03 02 90 30 K- 44 No Ac RI 07 -1 -2 .0 MA 50 t ti CA 11 9- 6- 00 RT 11 Av ve 01 20 20 3 ai 15 66 07 08 PH la 0 8 AR bl MG M e #7 CA 17 PS 4 UL E CR 00 12 03 02 30 30 K- 68 No Ac ES 31 -1 -2 .0 MA 43 t ti TO 00 9- 6- 00 RT 15 Av ve R 75 20 20 7 ai 10 19 07 08 PH la 0 AR bl MG M e #7 TA 17 BL 4 ET 60 08 03 02 60 30 K- [...] 7- 5- 00 RT 16 Av ve ME 21 20 20 1 ai DE 61 07 08 PH la 0 AR bl 40 M e #7 MG 17 4 TA BL ET LY 00 12 03 01 90 30 K- 44 No Ac RI 07 -1 -2 .0 MA 50 t ti CA 11 9- 5- 00 RT 11 Av ve 01 20 20 3 ai 15 66 07 08 PH la 0 8 AR bl MG M e #7 CA 17 PS 4 UL E 00 08 03 01 90 30 K- [...] E 17 10 4 MG TA B ME 00 08 03 01 60 30 K- 68 No Ac TO 37 -2 -2 .0 MA 43 t ti IA 80 7- 5- 00 RT 16 Av ve OL 03 20 20 7 ai OL 21 07 08 PH la 0 AR bl TA M e RT #7 RA 17 TE 4 50 MG TA B DI 57 08 03 01 30 30 K- 68 No Ac GO 66 -2 -2 .0 MA 43 t ti XI 40 7- 5- 00 RT 16 Av ve N 44 20 20 0 ai 0. 18 07 08 PH la 25 8 AR bl M e MG #7 17 TA 4 BL ET ME 68 12 03 01 12 30 CE 33 No Ac TF 38 -2 -2 0. DA 20 t ti OR 20 1- 5- 00 R 69 Av ve ME 02 20 20 0 TR ai N 80 07 08 AC la HC 5 E bl L PH e 50 M 0 IN MG C TA BL ET CR 00 12 03 01 30 30 K- 68 No Ac ES 31 -1 -2 .0 MA 43 t ti TO 00 9- 5- 00 RT 15 Av ve R 75 20 20 7 ai 10 19 07 08 PH la 0 AR bl MG M e #7 TA 17 BL 4 ET 60 08 03 01 60 30 K- 68 No Ac 50 -2 -2 .0 MA 43 t ti 50 7- 5- 00 RT 16 Av ve 02 20 20 2 ai 50 07 08 PH la 4 AR bl M e #7 17 4 AC 64 08 03 01 30 30 K- 68 No Ac TO 76 -2 -2 .0 MA 43 t ti S 40 7- 5- 00 RT 15 Av ve 30 30 20 20 8 ai 11 07 08 PH la MG 4 AR bl M e TA #7 BL 17 ET 4 TR 00 08 03 01 30 30 K- 68 No Ac IC 07 -2 -2 .0 MA 43 t ti OR 46 7- 5- 00 RT 16 Av ve 12 20 20 4 ai 14 39 07 08 PH la 5 0 AR bl MG M e #7 TA 17 BL 4 ET AC 00 01 03 00 12 30 K- 44 No Ac ET 40 -0 -2 0. MA 50 t ti AM 60 3- 4- 00 RT 20 Av ve IN 48 20 20 0 5 ai OP 40 08 08 PH la HE 1 AR bl N- M e CO #7 D 17 #3 4 TA BL ET Results Labs Lab Lab Date Result Refere Interp Status Commen Order Detail nces retati t Range on Antibiotic sensitivity studies (03-14-2017 06:22) Amoxici >= 32 complet llin/cl 017 ug/ml ed avulana 06:22 te suscept ibility test by minimum inhibit ory concent ration Ceftazi 11-29-2 >= 64 complet dime/po 017 ug/ml ed tassium 06:22 clavula elsi suscept ibility test by minimum inhibit ory concent ration Ceftria 11-29-2 = 16 complet xone 017 ug/ml ed suscept 06:22 ibility test by minimum inhibit ory concent ration Cefazol 29-2 >= 64 complet in 017 ug/ml ed suscept 06:22 ibility test by minimum inhibit ory concent ration Nitrofu 11-29-2 <= 16 complet rantoin 017 ug/ml ed 06:22 suscept ibility test by minimum inhibit ory concent ration Gentami 11-29-2 >= 16 complet [place] 017 ug/ml ed suscept 06:22 ibility test by minimum inhibit ory concent ration Levoflo 11-29-2 <= 0.12 complet xacin 017 ug/ml ed suscept 06:22 ibility test by minimum inhibit ory concent ration Tobramy 29-2 = 8 complet [place] 017 ug/ml ed suscept 06:22 ibility test by minimum inhibit ory concent ration Piperac 29-2 = 64 complet illin/t 017 ug/ml ed azobact 06:22 am suscept ibility test by minimum inhibit ory concent ration Antibiotic sensitivity studies (03-14-2017 06:22) Ampicil -29-2 >= 32 complet kellie 017 ug/ml ed suscept 06:22 ibility test by minimum inhibit ory concent ration Amoxici 29-2 = 8 complet llin/cl 017 ug/ml ed avulana 06:22 te suscept ibility test by minimum inhibit ory concent ration Ceftazi 11-29-2 <= 1 complet dime/po 017 ug/ml ed tassium 06:22 clavula elsi suscept ibility test by minimum inhibit ory concent ration Ceftria 11-29-2 <= 1 complet xone 017 ug/ml ed suscept 06:22 ibility test by minimum inhibit ory concent ration Cefazol 11-29-2 <= 4 complet in 017 ug/ml ed suscept 06:22 ibility test by minimum inhibit ory concent ration Extende 29-2 = ug/ml complet d 017 ed spectru 06:22 m beta lactama se (ESBL) produci ng bacteri a suscept ibility test by minimum inhibit ory Ertapen -29-2 <= 0.5 complet em 017 ug/ml ed suscept 06:22 ibility test by minimum inhibit ory concent ration Cefepim 29-2 <= 1 complet e 017 ug/ml ed suscept 06:22 ibility test by minimum inhibit ory concent ration Nitrofu 03-14-2 = 32 complet rantoin 017 ug/ml ed 06:22 suscept ibility test by minimum inhibit ory concent ration Gentami -29-2 <= 1 complet [place] 017 ug/ml ed suscept 06:22 ibility test by minimum inhibit ory concent ration Imipene 29-2 <= 0.25 complet m 017 ug/ml ed suscept 06:22 ibility test by minimum inhibit ory concent ration Levoflo -29-2 >= 8 complet xacin 017 ug/ml ed suscept 06:22 ibility test by minimum inhibit ory concent ration Ampicil -29-2 >= 32 complet kellie/sul 017 ug/ml ed bactam 06:22 suscept ibility test by minimum inhibit ory concent ration Trimeth 29-2 >= 320 complet oprim/s 017 ug/ml ed ulfamet 06:22 hoxazol e suscept ibility test by minimum inhibit ory concent ration Tobramy 29-2 <= 1 complet [place] 017 ug/ml ed suscept 06:22 ibility test by minimum inhibit ory concent ration Piperac -29-2 <= 4 complet illin/t 017 ug/ml ed azobact 06:22 am suscept ibility test by minimum inhibit ory concent ration Glucose capillary blood glucometer (03-13-2017 06:33) Glucose = 291 70-110 complet 017 mg/dl ed capilla 06:[address] Comprehensive metabolic panel (03-13-2017 06:20) Serum = 0.5 1.1-1.8 complet or 017 ed plasma 06:20 albumin /globul in mass ra Serum = 2.4 3.4-5.0 complet or 017 gm/dL ed plasma 06:20 albumin measure ment (mas Serum = 79 46-116 complet or 017 U/L ed plasma 06:20 alkalin e phospha tase dillan Serum = 0.2 0.2-1.0 complet or 017 mg/dL ed plasma 06:20 total bilirub in measure m Serum = 88 7-18 complet or 017 mg/dL ed plasma 06:20 urea nitroge n measure men Comment: NOTIFICATION RESULT Serum 2 = 8.7 8.5-10. complet or 017 mg/dL 1 ed plasma 06:20 calcium measure ment (mas Serum = 104 98-107 complet or 017 mmoL/L ed plasma 06:20 chlorid e measure ment (mo Carbon = 38 21.0-32 complet dioxide 017 mmoL/L .0 ed 06:20 measure ment Serum = 1.6 0.70-1. complet or 017 mg/dL 30 ed plasma 06:20 creatin ine measure ment ( Estimat = 62 50-200 complet ion of 017 ML/MIN ed creatin 06:20 ine renal clearan ce Estimat = 43 >60 complet ed 017 ML/MIN ed glomeru 06:20 lar filtrat ion rate (GF Comment: REFERENCE RANGE: >60 ML/MIN/1.73 SQUARE METERS Comment: If this patient is -[place], then multiply the Comment: result by 1.210. Serum = 5.1 1.3-3.2 complet globuli 017 gm/dL ed n 06:20 measure ment (mass/v olume) Serum = 300 74-106 complet or 017 mg/dL ed plasma 06:20 glucose measure ment (mas Serum = 5.0 3.5-5.1 complet potassi 017 mmoL/L ed um 06:20 measure ment Serum 2 = 143 136-145 complet sodium 017 mmoL/L ed measure 06:20 ment Serum 03-13-2 = 15 15-37 complet or 017 U/L ed plasma 06:20 asparta te aminotr ansfera ALT = 21 12-78 complet (SGPT) 017 U/L ed ser/mateo 06:20 s Protein = 7.5 6.4-8.2 complet total 017 gm/dL ed ser/mateo 06:20 s CBC w auto diff (03-13-2017 06:20) Baso % = 0.0 % 0.1-2.0 complet 017 ed 06:20 Automat = 0.0 0.0-0.4 complet ed 017 K/mm3 ed blood 06:20 eosinop hil count Automat = 0.4 % 0.1-12. complet ed 017 0 ed blood 06:20 eosinop hils/10 0 leukocy t Blood = 5.2 1.3-8.0 complet granulo 017 K/mm3 ed cytes 06:20 automat ed count (numb Blood = 5.8 4.8-10. complet leukocy 017 K/MM3 8 ed shelby 06:20 count (number /volume ) Automat = 0.0 0-0.2 complet ed 017 K/MM3 ed blood 06:20 basophi l count (count/ vo Granulo = 90.0 37.0-80 complet cyte 017 % .0 ed percent 06:20 age Blood = 36.2 42.0-52 complet hematoc 017 % .0 ed rit 06:20 (volume fractio n) Blood = 10.5 14.1-18 complet hemoglo 017 g/dL .0 ed bin 06:20 measure ment (mass/v olum Absolut = 0.2 0.7-4.5 complet e 017 K/mm3 ed lymphoc 06:20 yte count Lymphoc = 4.0 % 10-50 complet yte 017 ed count, 06:20 blood, automat ed Mean = 23.4 27-31.2 complet corpusc 017 pg ed ular 06:20 hemoglo bin (MCH) determ Automat = 29.1 31.8-35 complet ed 017 g/dl .4 ed erythro 06:20 cyte mean corpusc ular h Automat 2 = 80.5 82.2-97 complet ed 017 fl .8 ed erythro 06:20 cyte mean corpusc ular v Absolut 2 = 0.3 0.1-1.0 complet e 017 K/mm3 ed monocyt 06:20 e count Charlton % 2 = 5.6 % 1.7-9.3 complet 017 ed 06:20 Automat 2 = 7.9 7.4-10. complet ed 017 fl 4 ed blood 06:20 platele t mean volume dillan Blood = 218 142-424 complet platele 017 K/mm3 ed t count 06:20 Red = 4.50 4.6-6.2 complet blood 017 M/mm3 ed cell 06:20 count Automat = 15.7 11.5-17 complet ed 017 % .5 ed erythro 06:20 cyte distrib ution width Differential panel, method unspecified - (03-13-2017 06:20) Hypochr 03-13-2 2+ 2+ L complet omatic 017 ed red 06:20 blood cell detecti on LYMPH 2 5 % 10-50 complet 017 ed 06:20 Monocyt = 5 % 2-9 complet e % 017 ed 06:20 Platele 2 NORMAL complet t 017 NORMAL ed estimat 06:20 L e Neutrop = 90 % 42-76 complet hil 017 ed count 06:20 Blood 2 = 100 complet total 017 #CELLS ed cell 06:20 count Differential panel, method unspecified - (03-13-2017 06:20) Hypochr 03-13-2 2+ complet omia 017 ed [Presen 06:20 ce] in Blood LYMPH 03-13-2 5 % 10% - Low complet 017 50% ed 06:20 Platele 03-13-2 NORMAL complet ts 017 ed [Presen 06:20 ce] in Blood by Light microsc opy Glucose capillary blood glucometer (03-13-2017 01:09) Glucose 2 = 287 70-110 complet 017 mg/dl ed capilla 01:[address] Glucose capillary blood glucometer (03-12-2017 20:01) Glucose 03-12-2 = 369 70-110 complet 017 mg/dl ed capilla 20:[address] Glucose capillary blood glucometer (03-12-2017 16:42) Glucose 03-12-2 = 381 70-110 complet 017 mg/dl ed capilla 16:[address] Glucose capillary blood glucometer (03-12-2017 11:41) Glucose 03-12-2 = 445 70-110 complet 017 mg/dl ed capilla 11:[address] Glucose capillary blood glucometer (03-12-2017 06:33) Glucose 03-12-2 = 270 70-110 complet 017 mg/dl ed capilla 06:[address] CBC w auto diff (03-12-2017 06:00) Blood 2 = 9.7 14.1-18 complet hemoglo 017 g/dL .0 ed bin 06:00 measure ment (mass/v olum Absolut = 0.2 0.7-4.5 complet e 017 K/mm3 ed lymphoc 06:00 yte count Lymphoc = 5.7 % 10-50 complet yte 017 ed count, 06:00 blood, automat ed Baso % = 0.1 % 0.1-2.0 complet 017 ed 06:00 Mean = 23.3 27-31.2 complet corpusc 017 pg ed ular 06:00 hemoglo bin (MCH) determ Automat = 28.6 31.8-35 complet ed 017 g/dl .4 ed erythro 06:00 cyte mean corpusc ular h Automat = 81.5 82.2-97 complet ed 017 fl .8 ed erythro 06:00 cyte mean corpusc ular v Absolut = 0.3 0.1-1.0 complet e 017 K/mm3 ed monocyt 06:00 e count Charlton % = 6.1 % 1.7-9.3 complet 017 ed 06:00 Automat 2 = 8.1 7.4-10. complet ed 017 fl 4 ed blood 06:00 platele t mean volume dillan Blood = 199 142-424 complet platele 017 K/mm3 ed t count 06:00 Red = 4.17 4.6-6.2 complet blood 017 M/mm3 ed cell 06:00 count Automat = 15.6 11.5-17 complet ed 017 % .5 ed erythro 06:00 cyte distrib ution width Blood = 4.2 4.8-10. complet leukocy 017 K/MM3 8 ed shelby 06:00 count (number /volume ) Blood = 34.0 42.0-52 complet hematoc 017 % .0 ed rit 06:00 (volume fractio n) Granulo = 87.9 37.0-80 complet cyte 017 % .0 ed percent 06:00 age Blood = 3.7 1.3-8.0 complet granulo 017 K/mm3 ed cytes 06:00 automat ed count (numb Automat = 0.3 % 0.1-12. complet ed 017 0 ed blood 06:00 eosinop hils/10 0 leukocy t Automat = 0.0 0.0-0.4 complet ed 017 K/mm3 ed blood 06:00 eosinop hil count Automat = 0.0 0-0.2 complet ed 017 K/MM3 ed blood 06:00 basophi l count (count/ vo Differential panel, method unspecified - (03-12-2017 06:00) Blood = 100 complet total 017 #CELLS ed cell 06:00 count Neutrop = 93 % 42-76 complet hil 017 ed count 06:00 Platele NORMAL complet t 017 NORMAL ed estimat 06:00 L e Monocyt = 1 % 2-9 complet e % 017 ed 06:00 LYMPH 6 % 10-50 complet 017 ed 06:00 Hypochr 2+ 2+ L complet omatic 017 ed red 06:00 blood cell detecti on Comprehensive metabolic panel (03-12-2017 06:00) Serum 2 = 1.6 0.70-1. complet or 017 mg/dL 30 ed plasma 06:00 creatin ine measure ment ( Carbon 03-12-2 = 40 21.0-32 complet dioxide 017 mmoL/L .0 ed 06:00 measure ment Comment: NOTIFICATION RESULT Comment: Noemi Serum 03-12-2 = 101 98-107 complet or 017 mmoL/L ed plasma 06:00 chlorid e measure ment (mo Serum 03-12-2 = 8.6 8.5-10. complet or 017 mg/dL 1 ed plasma 06:00 calcium measure ment (mas Serum 03-12-2 = 94 7-18 complet or 017 mg/dL ed plasma 06:00 urea nitroge n measure men Comment: NOTIFICATION RESULT Comment: Noemi Serum 03-12-2 = 0.2 0.2-1.0 complet or 017 mg/dL ed plasma 06:00 total bilirub in measure m Serum 2 = 83 46-116 complet or 017 U/L ed plasma 06:00 alkalin e phospha tase dillan Serum 2 = 2.4 3.4-5.0 complet or 017 gm/dL ed plasma 06:00 albumin measure ment (lashawn Serum 03-12-2 = 0.5 1.1-1.8 complet or 017 ed plasma 06:00 albumin /globul in mass ra Protein 03-12-2 = 7.4 6.4-8.2 complet total 017 gm/dL ed ser/mateo 06:00 s ALT 03-12-2 = 22 12-78 complet (SGPT) 017 U/L ed ser/mateo 06:00 s Serum 03-12-2 = 18 15-37 complet or 017 U/L ed plasma 06:00 asparta te aminotr ansfera Serum 2 = 141 136-145 complet sodium 017 mmoL/L ed measure 06:00 ment Serum 03-12-2 = 4.7 3.5-5.1 complet potassi 017 mmoL/L ed um 06:00 measure ment Serum 03-12-2 = 301 74-106 complet or 017 mg/dL ed plasma 06:00 glucose measure ment (mas Serum 03-12-2 = 5.0 1.3-3.2 complet globuli 017 gm/dL ed n 06:00 measure ment (mass/v olume) Estimat = 43 >60 complet ed 017 ML/MIN ed glomeru 06:00 lar filtrat ion rate (GF Comment: REFERENCE RANGE: >60 ML/MIN/1.73 SQUARE METERS Comment: If this patient is -[place], then multiply the Comment: result by 1.210. Estimat = 61 50-200 complet ion of 017 ML/MIN ed creatin 06:00 ine renal clearan ce Differential panel, method unspecified - (03-12-2017 06:00) Hypochr 2+ complet omia 017 ed [Presen 06:00 ce] in Blood LYMPH 6 % 10% - Low complet 017 50% ed 06:00 Platele NORMAL complet ts 017 ed [Presen 06:00 ce] in Blood by Light microsc opy Glucose capillary blood glucometer (03-11-2017 21:05) Glucose = 345 70-110 complet 017 mg/dl ed capilla 21:[address] Glucose capillary blood glucometer (03-11-2017 16:18) Glucose = 391 70-110 complet 017 mg/dl ed capilla 16:[address] Glucose capillary blood glucometer (03-11-2017 11:43) Glucose = 310 70-110 complet 017 mg/dl ed capilla 11:[address] Glucose capillary blood glucometer (03-11-2017 06:29) Glucose = 158 70-110 complet 017 mg/dl ed capilla 06:[address] Arterial blood gas (03-11-2017 04:45) Arteria = 37.8 23-27 complet l blood 017 MMOL/L ed carbon 04:45 dioxide , total dillan SOURCE RIGHT complet 017 RADIAL ed 04:45 Arteria = 93.8 90-100 complet l blood 017 % ed oxygen 04:45 saturat ion calcula Arteria = 76.4 80-100 complet l whole 017 MMHG ed blood 04:45 PO2 at POC Arteria = 7.33 7.35-7. complet l blood 017 MMOL/L 45 ed pH 04:45 measure ment Arteria = 70.0 35.0-45 complet l blood 017 MMHG .0 ed 04:45 partial pressur e of carbo Comment: CRITICAL RESULTS Comment: RESULTS CALLED TO: JORGE ER 03/11/17 0452 Leah,Karlee Arteria = 5 L complet l blood 017 NASAL ed total 04:45 CANNULA oxygen content shyam Arteria = 35.7 22.0-26 complet l blood 017 MMOL/L .0 ed 04:45 bicarbo elsi measure ment ( Woo's ACCEPTA complet test 017 BLE ed before 04:45 ACCEPTA arteria BLE L l blood gas Arteria = 9.6 -2.4-+2 complet l blood 017 MMOL/L .3 ed base 04:45 excess determi nation Gas panel in Arterial blood (03-11-2017 04:45) Arteria ACCEPTA complet l 017 BLE ed patency 04:45 Wrist artery --pre arteria l punctur e SOURCE RIGHT complet 017 RADIAL ed 04:45 Urinalysis with microscopy (03-11-2017 04:30) Urine YELLOW YELLOW complet color 017 YELLOW ed 04:30 L Urine NEGATIV NEG complet total 017 E ed bilirub 04:30 NEGATIV in E L detecti on by test Urine SL CLEAR complet appeara 017 CLOUDY ed nce 04:30 SL determi CLOUDY nation L Urine = OCC NONE complet sedimen 017 #/lpf ed t WBC 04:30 cast count by microsc Urine 50 - O complet leukocy 017 100 ed shelby 04:30 wbc/hpf count (number /volume ) Urine 0.2 0.2 NEG complet urobili 017 L ed nogen 04:30 E.U./dL detecti on by test str Urine = 1.015 1.005-1 complet specifi 017 .030 ed c 04:30 gravity measure ment Erythro 5-10 0 complet cytes 017 5-10 L ed detecti 04:30 rbc/hpf on in urine sedimen t Urine = NEG complet protein 017 NEGATIV ed 04:30 E mg/dL measure ment by automat ed t Urine = 5.5 5.0-8.5 complet pH 017 ed 04:30 Urine POSITIV NEG complet nitrite 017 E ed 04:30 POSITIV detecti E L on by test strip Mucus 1+ 1+ L NONE complet detecti 017 ed on in 04:30 urine sedimen t by lig Mucus 3+ 3+ L NEG complet detecti 017 ed on in 04:30 urine sedimen t by lig Urine NEGATIV NEG complet ketones 017 E ed 04:30 NEGATIV detecti E L on by mg/dL automat ed shelby Glucose = NEG complet ur 017 NEGATIV ed test 04:30 E strip Urine 1+ 1+ L NEG complet blood 017 ed detecti 04:30 on Urine culture (03-11-2017 04:30) Urine [id number] complet culture 017 07 ed 04:30 Escheri braxton coli SCT EC ESCHERI BRAXTON COLI L Urinalysis dipstick W Reflex Microscopic panel in Urine (03-11-2017 04:30) Mucus 1+ NONE complet [Presen 017 ed ce] in 04:30 Urine sedimen t by Light microsc opy Erythro 5-10 0 complet cytes 017 ed [Presen 04:30 ce] in Urine sedimen t by Light microsc opy Leukocy 50-100 O complet shelby 017 wbc/hpf ed [...] Urine by Automat ed test strip Mucus 3+ NEG Abnorma complet [Presen 017 l ed ce] in 04:30 Urine sedimen t by Light microsc opy Nitrite POSITIV NEG Abnorma complet 017 E l ed [Presen 04:30 ce] in Urine by Test strip Urobili 0.2 NEG complet nogen 017 ed [Presen 04:30 ce] in Urine by Test strip CBC w auto diff (03-11-2017 04:09) Absolut = 0.6 0.7-4.5 complet e 017 K/mm3 ed lymphoc 04:09 yte count Blood = 10.1 14.1-18 complet hemoglo 017 g/dL .0 ed bin 04:09 measure ment (mass/v olum Granulo = 84.7 37.0-80 complet cyte 017 % .0 ed percent 04:09 age Blood = 7.9 1.3-8.0 complet granulo 017 K/mm3 ed cytes 04:09 automat ed count (numb Automat = 0.9 % 0.1-12. complet ed 017 0 ed blood 04:09 eosinop hils/10 0 leukocy t Automat = 0.1 0.0-0.4 complet ed 017 K/mm3 ed blood 04:09 eosinop hil count Baso % = 0.3 % 0.1-2.0 complet 017 ed 04:09 Automat = 0.0 0-0.2 complet ed 017 K/MM3 ed blood 04:09 basophi l count (count/ vo Absolut = 0.7 0.1-1.0 complet e 017 K/mm3 ed monocyt 04:09 e count Automat = 80.2 82.2-97 complet ed 017 fl .8 ed erythro 04:09 cyte mean corpusc ular v Lymphoc = 6.3 % 10-50 complet yte 017 ed count, 04:09 blood, automat ed Blood 03-11-2 = 34.1 42.0-52 complet hematoc 017 % .0 ed rit 04:09 (volume fractio n) Blood 2 = 9.4 4.8-10. complet leukocy 017 K/MM3 8 ed shelby 04:09 count (number /volume ) Automat 2 = 15.7 11.5-17 complet ed 017 % .5 ed erythro 04:09 cyte distrib ution width Red = 4.25 4.6-6.2 complet blood 017 M/mm3 ed cell 04:09 count Blood = 214 142-424 complet platele 017 K/mm3 ed t count 04:09 Automat = 8.3 7.4-10. complet ed 017 fl 4 ed blood 04:09 platele t mean volume dillan Charlton % = 7.8 % 1.7-9.3 complet 017 ed 04:09 Automat = 29.6 31.8-35 complet ed 017 g/dl .4 ed erythro 04:09 cyte mean corpusc ular h Mean = 23.7 27-31.2 complet corpusc 017 pg ed ular 04:09 hemoglo bin (MCH) determ Brain natriuretic peptide (03-11-2017 04:09) Brain 2 = 635 0-100 complet natriur 017 pg/mL ed etic 04:09 peptide Comprehensive metabolic panel (03-11-2017 04:09) Protein -- = 7.9 6.4-8.2 complet total 017 gm/dL ed ser/mateo 04:09 s ALT = 20 12-78 complet (SGPT) 017 U/L ed ser/mateo 04:09 s Serum 03-11-2 = 18 15-37 complet or 017 U/L ed plasma 04:09 asparta te aminotr ansfera Serum = 145 136-145 complet sodium 017 mmoL/L ed measure 04:09 ment Serum 03-11-2 = 4.6 3.5-5.1 complet potassi 017 mmoL/L ed um 04:09 measure ment Serum 11-26-2 = 142 74-106 complet or 017 mg/dL ed plasma 04:09 glucose measure ment (mas Serum 03-11-2 = 5.2 1.3-3.2 complet globuli 017 gm/dL ed n 04:09 measure ment (mass/v olume) Estimat 03-11-2 = 36 >60 complet ed 017 ML/MIN ed glomeru 04:09 lar filtrat ion rate (GF Comment: REFERENCE RANGE: >60 ML/MIN/1.73 SQUARE METERS Comment: If this patient is -[place], then multiply the Comment: result by 1.210. Estimat 03-11-2 = 44 50-200 complet ion of 017 ML/MIN ed creatin 04:09 ine renal clearan ce Serum 03-11-2 = 1.9 0.70-1. complet or 017 mg/dL 30 ed plasma 04:09 creatin ine measure ment ( Carbon 03-11-2 = 40 21.0-32 complet dioxide 017 mmoL/L .0 ed 04:09 measure ment Comment: NOTIFICATION RESULT Serum 11-26-2 = 102 98-107 complet or 017 mmoL/L ed plasma 04:09 chlorid e measure ment (mo Serum 03-11-2 = 9.1 8.5-10. complet or 017 mg/dL 1 ed plasma 04:09 calcium measure ment (mas Serum 03-11-2 = 112 7-18 complet or 017 mg/dL ed plasma 04:09 urea nitroge n measure men Comment: NOTIFICATION RESULT Serum 11-26-2 = 0.4 0.2-1.0 complet or 017 mg/dL ed plasma 04:09 total bilirub in measure m Serum 03-11-2 = 84 46-116 complet or 017 U/L ed plasma 04:09 alkalin e phospha tase dillan Serum 03-11-2 = 2.7 3.4-5.0 complet or 017 gm/dL ed plasma 04:09 albumin measure ment (mas Serum -26-2 = 0.5 1.1-1.8 complet or 017 ed plasma 04:09 albumin /globul in mass ra Cardiac enzymes (03-11-2017 04:09) Serum 11-26-2 = 0.03 0.00-0. complet or 017 ng/mL 06 ed plasma 04:09 troponi n i.cardi ac measu Serum = 37 39-308 complet or 017 U/L ed plasma 04:09 creatin e kinase measure m Serum = 1.4 0.0-3.6 complet or 017 ng/mL ed plasma 04:09 creatin e kinase MB measu Serum = 3.8 0-4.0 complet or 017 U/L ed plasma 04:09 creatin e kinase MB (CK-M Blood lactic acid measurement (moles/vol (03-11-2017 04:09) Blood = 0.6 0.4-2.0 complet lactic 017 mmol/L ed acid 04:09 measure ment (moles/ vol Comprehensive metabolic panel (02-19-2017 12:40) Protein = [...] plasma 12:40 albumin /globul in mass ra Cardiac enzymes (02-19-2017 12:40) Serum = 0.04 [...] ed acid 12:40 measure ment (moles/ vol CBC w auto diff (02-19-2017 12:40) Lymphoc = 7.8 % 10-50 complet yte [...] blood 017 M/mm3 ed cell 12:40 count Blood = 234 142-424 complet platele 017 K/mm3 ed t count 12:40 Automat = 8.0 7.4-10. complet ed 017 fl 4 ed blood 12:40 platele t mean volume dillan Charlton % = 7.3 % 1.7-9.3 complet 017 [...] blood 12:40 basophi l count (count/ vo Comprehensive metabolic panel (01-27-2017 04:50) Serum = [...] blood 04:50 platele t mean volume dillan Charlton % = 6.2 % 1.7-9.3 complet 017 [...] SerPl-mCnc (01-11-2017 10:51) NT-proB 2724 0-899 complet SENIOR BUSINESS ARCHITECT 017 pg/mL ed SerPl-m 10:51 Cnc Differential [...] SerPl-mCnc (12-13-2016 13:36) NT-proB 3518 0-899 complet SENIOR BUSINESS ARCHITECT 017 pg/mL ed SerPl-m 13:36 Cnc Magnesium SerPl-mCnc (09-08-2016 04:24) Magnesi 2.0 1.9-2.4 complet um 017 mg/dL ed SerPl-m 04:24 Cnc Procedures Procedure DOS Code Location Performer Comment MEASUREME [id number] MEAWISAC MEAKAREN NT 5 W W CARDIAC [facility] SAMPLING MEDICAL MEDICAL PRESS RT HEART PERQ TRANSFUSI [id number] MEADOWVIE MEAWVIE ON 5 W W NONAUTO [facility] RED BLD MEDICAL MEDICAL CELLS PERIPH VN PERQ INSERTION 0046 [facility] [address] [facility] STENTS PERQ 0066 [facility] Y Y [facility] CORONARY ANGIOPLAS TY PTCA INSERTION 3607 [facility] STENT LEFT 3722 [facility] [address] [facility] CATHETERI ZATION CORONARY 8856 [facility] 5 Y Y [facility] USING TWO CATHETERS INSERTION 8607 [facility] TOTALLY 1 [facility]AL IMPL MEDICAL MEDICAL VASCULAR CE CE ACCESS DEVICE Encounters Encounter Start End Date Code Location Performer Type Date [facility] - [facility] 7 [facility] 7 7 [facility] 7 [facility] - 7 7 [facility] 7 [facility] 7 [facility] 7 7 [facility] - [facility] 7 [facility] - 7 7 [facility] - [facility] - [facility] 7 [facility] - 7 7 [facility] - 7 7 [facility] - 6 6 [facility] - 6 6 [facility] - 6 6 [facility] - 6 6 [facility] - 6 6 [facility] - 6 6 [facility] - 6 6 [facility] - 6 6 [facility] - 6 6 [facility] - 6 6 [facility] - 6 6 [facility] - 6 6 [facility] 6 6 [facility] 6 6 [facility] 5 5 [facility] 5 5 [facility] 5 5 [facility] - 5 5 [facility] 5 5 [facility] 5 5 [facility] - 5 5 [facility]PAT[facility] 5 5 [facility] 5 5 [facility] [place] - 5 5 [facility] 5 5 [facility] - 5 5 [facility] - OTHER 5 5 [facility] - 5 5 [facility]PATI[facility] 5 5 [facility] - 5 5 [facility] [address] [facility] - 5 5 [facility] 5 5 [facility] - 5 5 [facility] - 5 5 [facility] 5 5 HOME OUTPATIEN [facility], 5 5 [facility], 5 5 HOME OUTPATIEN [facility] [place] [facility], 4 4 [facility]PATIEN HEALTH [facility] - 4 4 [facility]PATIEN INC [facility] 4 4 [facility] [place] - 4 4 [facility] OUTPATIEN [facility] - 4 4 [facility]IEN [facility] 4 4 [facility] [place] - 4 4 [facility] OUTPATIEN [facility] - 4 4 [facility] - 4 4 [facility] 4 [facility] - 4 4 [facility] - 4 4 [facility] - 3 3 [facility] 3 [facility] [place] - 3 3 [facility] [place] - 2 2 [facility] [facility] 2 2 [facility] 1 1 [facility] OUTPATIEN MEDICAL T CE [facility] 1 HOME OUTPATI[facility] 1 1 [facility] 0 [facility] 0 0 [facility] 0 0 [facility] 0 [facility] [place] - 9 9 [facility] - 9 9 [facility] - 9 9 [facility] - 8 8 [facility] - 8 8 [facility] 8 8 [facility] 8 8 [facility] 8 [facility] - 8 8 [facility] [place] [place] [id number] 8 [facility] [place] [id number] [facility] [place] [id number] [facility] [place] [id number] [facility] [place] [id number] [facility] [place] [id number] [facility] [place] [id number] [facility] [place] [id number] [facility] [place] [id number] [address] [facility]
--- OUTSIDE RECORDS SUMMARY | 2017-03-14 15:31 | External Medical Summary Rpt | CCD ---
Author Author , NOREEN Organization NOREEN Address Unknown Phone .[facility] Care Team Providers Care Art Critic Name Role Phone [facility], [facility] Unavailable Unavailable [facility] Unavailable Unavailable ASSOCIATES, [facility] Unavailable Unavailable RESPONSE, [facility] RHODA BACA MD, PSC, Unavailable Unavailable RHODA BACA MD, PSC [facility] Unavailable Unavailable [place], [facility] [place] KENTON ARMIJO, Unavailable Unavailable KENTON ARMIJO MD, Unavailable Unavailable [facility], ROSY POWELL MD, [facility] MASSIMO MARISCAL Unavailable Unavailable M, MASSIMO MARISCAL, Unavailable Unavailable M.Marko.P.S.CIrena, LES MARCH M.D.P.S.CIrena [facility], Unavailable Unavailable [facility] BHSIMIN ROBERTINDER S, Unavailable Unavailable BHAGRATH, KSENIA S [facility] Unavailable Unavailable ON RED, [facility] ON RED [facility] Unavailable [...] INC, Unavailable Unavailable [facility] Unavailable Unavailable [facility], [facility] ALESSANDRA-ERIC, Unavailable Unavailable JERMAINEYANG ARMENDARIZ, JERMAINEMARCELLO PUTNAM KOKO, Unavailable Unavailable INDY KOKO [facility], [facility], [place], Unavailable Unavailable KEY, [place] [facility] Unavailable Unavailable KIDNEY CARE, [facility] Unavailable Unavailable [facility]SC, [facility] [employer] [facility], Unavailable Unavailable [employer] [facility] [email or web address] [facility] Unavailable Unavailable INC, [employer] [facility] [employer] FALLIS DIANA, FALLIS Unavailable Unavailable DIANA [facility] Unavailable Unavailable #471, [facility][id number] MORRO ZHENG, Unavailable Unavailable MORRO ZHENG GUNYEN ISABEL K, Unavailable Unavailable GUNFATMATAMALLA, ISABEL K [facility] Unavailable Unavailable PHARMACY, [facility], Unavailable Unavailable [facility] Unavailable Unavailable INC, [facility] Unavailable [facility]available HOSPITAL, [facility] Unavailable Unavailable HOSPITAL P, [facility] HOSPITAL P [facility] Unavailable Unavailable MEDICAL CE, [facility] Unavailable Unavailable MEDICAL CENT, [facility] Unavailable Unavailable INC, [facility], Unavailable Unavailable [facility] Unavailable Unavailable PLLC, [facility], Unavailable Unavailable [facility]PICE [facility] Unavailable Unavailable PHYSICIANS, [facility] RIAN, VANDANA Cox, RIAN, Unavailable Unavailable VANDANA [facility] Unavailable Unavailable [place], [facility] [place] [facility], Unavailable Unavailable [id number], Unavailable Unavailable [id number] Unavailable Unavailable PHARMACY, [facility] Un[facility], [facility] Unavailable Unavailable VASCULAR PH, [facility] Unavailable Unavailable [facility]ING [facility], [facility] # Unavailable Unavailable [id number], [facility] # [id number] [facility] [id number] # Unavailable Unavailable 7174, [facility] [id number] # [id number] [facility] Unavailable Unavailable [facility], [facility] Un[facility], [facility] Unavailable Unavailable [facility], [facility] LUIS E HAM, LUIS E HAM Unavailable Unavailable [facility] Unavailable Unavailable ASSOCIAT, [facility] Unavailable Unavailable SURGERY, [facility] Unavailable Unavailable MEDICAL, [facility] Unavailable Unavailable LLC, [facility] Unavailable Unavailable PHARMACY, [facility], Unavailable Unavailable [facility] Unavailable Un[facility]ARMACY, [facility] Unavailable Unavailable AMBULANCE SE, [facility] SE [facility], Unavailable Unavailable PLLC, [facility], [facility] KRAFT ANTONINA, KRAFT Unavailable Unavailable ANTONINA [facility], Unavailable Unavailable [facility] PAWSAT, PAWSAT Unavailable Unavailable PAWSAT MAR, PAWSAT Unavailable Unavailable MAR HURLEYRICHARD FERRERA W, Unavailable Unavailable RICHARD HURLEY W PEASI, PEASI Unavailable Unavailable [facility] Unavailable Unavailable PRACTICE CL, [facility] Unavailable Unavailable AMBULAN, [facility] Unavailable Unavailable MED[facility] SUPPLIES INC, [facility], Unavailable Unavailable [facility] Unavailable Unavailable SERVICE, [facility] QUALITY PROVIDER Unavailable Unavailable SERVICES IN, [facility] Unavailable Unavailable [facility]ALTH[facility], [facility] Unavailable Unavailable [id number] # [id number], [facility] [id number] # [id number] [facility] Unavailable Unavailable HEALTH CARE, [facility], Unavailable Unavailable [facility] KETTY BROTHERS, ZEV, Unavailable Unavailable KETTY Carcamo [facility] Unavailable Unavailable EQUIPME, [facility], Unavailable Unavailable [facility] ZE BLACK[facility], Unavailable Unavailable ZE BLACKWELL [facility] Unavailable Unavailable HOSPITALS, [facility], Unavailable Unavailable [facility], Unavailable Unavailable [facility] # Unavailable Unavailable [id number], [facility] # [id number] [facility] Unavailable Unavailable AGENCY, [facility] ZE MAN, Unavailable Unavailable ZE MAN WILLIAM Unavailable Unavailable ALEXANDREA Clemente WILLIAM H ZAMBOS, PHILIP N, Unavailable Unavailable MICHAEL DE LA ROSA Purpose Continuity of Care Document - 10-31-2006 through 2016 Problems Code Diagnosis DOS Provider Status I129 HYPERTENSIV 02-19-2017 CORAL Roberts CKD PHYSICIANS, W/STAGE 1-4 [facility] CKD OR UNS CKD M069 RHEUMATOID 02-19-2017 [facility] ARTHRITIS [facility]ANCE UNSPECIFIED SERVICE N189 CHRONIC 02-19-2017 [facility] KIDNEY PHYSICIANS, DISEASE [facility] UNSPECIFIED R0602 SHORTNESS 02-19-2017 CORAL OF BREATH PHYSICIANS, [facility] R0689 OTHER 02-19-2017 [facility] ABNORMALITI COUNTY ES OF AMBULANCE BREATHING SE R600 LOCALIZED 02-19-2017 [place] [facility] SE Z7409 OTHER 02-19-2017 [facility] REDUCED AMBULANCE MOBILITY SERVICE I10 ESSENTIAL 02-15-2017 [facility] HYPERTENSIO ASSOCIATES N N183 CHRONIC 02-15-2017 [facility] DISEASE ASSOCIATES STAGE 3 MODERATE N179 ACUTE 02-12-2017 [facility] FAILURE [facility]OCIATES UNSPECIFIED [id number] ULCERATIVE 01-29-2017 [place] [facility] LEFT LOWER [...] INC WITHOUT ESOPHAGITIS R079 CHEST PAIN 01-27-2017 [place] U[facility]PECIFIED [facility] ASS Z794 MEDICAL TECHNOLOGIST HEMATOLOGY 01-27-2017 [facility] CURRENT USE [facility] OF INSULIN INC Z7982 HALF-WAY 01-27-2017 [facility] CURRENT USE [facility] OF ASPIRIN INC I2510 [place]D [place] 01-22-2017 [facility] ARTERY W/O HOSPITALS ANGINA PECTORIS I252 OLD 01-22-2017 MYOCARDIAL [facility] INFARCTION HOSPITALS I255 ISCHEMIC 01-22-2017 [facility]IOMYOP[facility] THY HOSPITALS I472 VENTRICULAR 01-22-2017 [facility] TACHYCARDIA HOSPITALS I5022 CHRONIC 01-22-2017 SYSTOLIC [facility] CONGESTIVE HOSPITALS HEART FAILURE I509 HEART 01-22-2017 [facility] FAILURE HEALTH UNSPECIFIED ASSOCIATES R0609 OTHER FORMS 01-22-2017 [facility] E99689 PRESENCE 01-22-2017 AUTO [facility] IMPLANTABLE HOSPITALS CARDIAC DEFIBRILLAT [place] R918 OTHER 01-19-2017 [facility] NONSPECIFIC [facility]LEX ABNORMAL FINDING OF LUNG FIELD E785 HYPERLIPIDE 01-18-2017 [facility] HEALTH UNSPECIFIED ASSOCIATES G894 CHRONIC 01-14-2017 [facility] PAIN [facility] SYNDROME HEALTH CARE N19 UNSPECIFIED 01-14-2017 [facility] KIDNEY [facility] FAILURE HEALTH CARE Z950 PRESENCE OF 01-14-2017 [facility] Z955 PRESENCE OF 01-11-2017 [facility] ANGIOPLASTY HOSPITALS IMPLANT & GRAFT M6281 MUSCLE 01-05-2017 [facility] WEAKNESS AMBULANCE GENERALIZED SERVICE X19954 OTHER LONG 01-05-2017 [facility] HOSPITAL P DRUG THERAPY Z882 ALLERGY 01-05-2017 [facility] STATUS TO MEM HOSP SULFONAMIDE INC S STATUS R609 EDEMA 01-04-2017 [facility] UNSPECIFIED HEALTHCARE HOSPITALS E139 OTH SPEC 01-01-2017 [facility] DIABETES PHYSICIANS MELLITUS GROUP W/O COMPLICATIO NS E875 HYPERKALEMI 01-01-2017 [facility] A PHYSICIANS GROUP I5020 UNSPECIFIED 01-01-2017 [facility] SYSTOLIC PHYSICIANS CONGESTIVE GROUP HEART FAILURE Z4502 ENCOUNTER 12-21-2016 [facility] AUTO HOSPITALS IMPLANTABL CARD DEFIB B35.6 Tinea 12-20-2016 cruris 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 E11.40 Type 2 12-20-2016 diabetes mellitus with diabetic neuropathy, unspecified G25.81 Restless 12-20-2016 legs syndrome I16.1 Hypertensiv 12-20-2016 e emergency 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 I50.9 Heart 12-20-2016 failure, unspecified J96.02 Acute 12-20-2016 respiratory failure with hypercapnia K21.9 Gastro-esop 12-20-2016 hageal reflux disease without esophagitis K59.00 Constipatio 12-20-2016 n, unspecified M06.9 Rheumatoid 12-20-2016 arthritis, unspecified N18.3 Chronic 12-20-2016 kidney disease, stage 3 (moderate) R00.1 Bradycardia 12-20-2016 , unspecified R74.8 Abnormal 12-20-2016 levels of other serum enzymes 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 Z95.0 Presence of 12-20-2016 cardiac pacemaker N390 URINARY 12-16-2016 [facility]CT [facility]ALTH INFECTION ASSOCIATES SITE NOT SPECIFIED R001 BRADYCARDIA 12-14-2016 [place] [facility] UNSPECIFIED FOUNDATION R69 ILLNESS 12-14-2016 [place] UNSPECIFIED [employer] COMMUNITY ACT B356 TINEA 12-13-2016 [place] CRURIS [...] UNSPECIFIED R339 RETENTION 11-21-2016 [facility] OF URINE [facility] UNSPECIFIED HOSPITAL P R338 OTHER 11-14-2016 QUALITY RETENTION PROVIDER OF URINE SERVICES IN G19218 PRESSURE 10-14-2016 [facility]AL[facility] ULCER OF PROVIDER RIGHT HEEL SERVICES IN UNSTAGEABLE P84274 NON-PRSS 10-14-2016 [facility]AL[facility] CHR ULCR PROVIDER UNS PART SERVICES IN UNS LOW LEG UNS SEV J189 PNEUMONIA 09-29-2016 [facility] UNSPECIFIED PHYSICIANS ORGANISM GROUP N289 DISORDER OF 09-29-2016 [facility] KIDNEY AND PHYSICIANS URETER GROUP UNSPECIFIED R05 COUGH 09-28-2016 [facility] AMBULANCE SE E11.621 Type 2 09-13-2016 diabetes [...] [facility] HEART FAILURE R279 UNSPECIFIED 09-08-2016 [facility] LACK OF MEDICAL COORDINATIO RESPONSE N I130 [...] (congestive ) heart failure I214 NON-ST 09-06-2016 [facility] INFARCTION I4581 LONG QT 09-06-2016 [place] [facility] SYNDROME SERV FOUNDATION J9691 RESPIRATORY 09-06-2016 [place] [facility] FAILURE SERV UNSPECIFIED FOUNDATION WITH HYPOXIA R9431 ABNORMAL 09-06-2016 [place] [facility] ELECTROCARD SERV IOGRAM FOUNDATION E1165 TYPE 2 09-05-2016 [facility] WITH HYPERGLYCEM [place] E21622 PAIN IN 09-05-2016 [place] RIGHT LEG MEDICAL IM[facility]ING ASS M23196 PAIN IN 09-05-2016 [place] LEFT LEG MEDICAL IMAGING ASS M7989 OTHER 09-05-2016 [place] SPECIFIED MEDICAL SOFT TISSUE IMAGING ASS DISORDERS R269 UNSPECIFIED 09-05-2016 [facility] ABNORMALITI AMBULANCE ES OF GAIT SE AND MOBILITY R531 WEAKNESS 09-05-2016 [facility] AMBULANCE SE Z8679 PERSONAL 09-05-2016 [facility] HISTORY OTH PHYSICIANS, DISEASES PLLC CIRCULATORY SYSTEM Z7401 BED 08-30-2016 [facility] AMBULANCE STATUS SERVICE E109 TYPE 1 08-14-2016 [facility] DIABETES HEALTH MELLITUS ASSOCIATES WITHOUT COMPLICATIO NS L0390 CELLULITIS 08-14-2016 [facility] UNSPECIFIED HEALTH ASSOCIATES M869 OSTEOMYELIT 08-11-2016 [facility]AL[facility] IS MOBILE XRAY UNSPECIFIED SERVICE R0989 OTH SPEC SX 07-20-2016 QUALITY & SIGNS MOBILE XRAY INVLV THE SERVICE CIRC & RESP SYS E1151 TYPE 2 DM 05-11-2016 [facility] W/DIAB PERIPH 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 B61055 PRESSURE 05-11-2016 [facility] ULCER OF RIGHT ANKLE STAGE 2 Y34284 PRESSURE 05-11-2016 [facility] ULCER OF LEFT ANKLE UNSTAGEABLE M1990 UNSPECIFIED 05-06-2016 [facility] AMBULANCE OSTEOARTHRI SERVICE TIS UNSPECIFIED SITE R0789 OTHER CHEST 05-06-2016 [facility] PAIN PHYSICIANS, [facility] O77219 CELLULITIS 04-25-2016 PAWSAT OF RIGHT LOWER LIMB H16657 PRESSURE 04-25-2016 [facility] ULCER OF RIGHT HEEL STAGE 2 E559 VITAMIN D 04-24-2016 [facility] UNSPECIFIED ASSOCIATES L089 LOCAL INF 04-18-2016 [facility] THE SKIN & HEALTH SUBCUTANEOU ASSOCIATES S TISSUE UNS R319 HEMATURIA 04-18-2016 [facility] P W06515 UNSPECIFIED 04-17-2016 [facility] RIGHT LOWER EYELID [id number] UNSPECIFIED 03-29-2016 [facility] OPEN WOUND [facility] LOWER ASSOCIATES LEG INITIAL ENC Y86624 PAIN IN 03-20-2016 [facility] LEFT KNEE MEM HOSP INC M179 OSTEOARTHRI 02-22-2016 [facility] TIS OF KNEE MEM HOSP INC UNSPECIFIED N4889 OTHER 02-18-2016 [facility] P OF PENIS N489 DISORDER OF 02-18-2016 [facility] PENIS [facility] UNSPECIFIED AMBULANCE SE R3989 OTH 02-18-2016 [facility] SYMPTOMS & COUNTY SIGNS AMBULANCE INVOLVING SE THE SYSTEM R52 PAIN 02-18-2016 [facility] UNSPECIFIED [facility] AMBULANCE SE F231QKW UNS COMP 02-18-2016 [facility] PROSTH [facility] DEVICE IMPL AMBULANCE & GRAFT SE INIT ENC R1084 GENERALIZED 02-13-2016 [place] ABDOMINAL EMERGENCY PAIN AMBULAN R1930 ABDOMINAL 02-13-2016 [place] RIGIDITY [facility]ERGENCY UNSPECIFIED AMBULAN SITE R5381 OTHER 02-13-2016 [facility] MAL[place]ISE AMBULANCE SERVICE Z466 ENCOUNTER 02-13-2016 [facility] FITTING AND PHYSICIANS, ADJUSTMENT [facility] URINARY DEVICE E118 TYPE 2 02-04-2016 [facility] DIABETES [facility]OS[facility] MELLITUS INC W/UNS COMPLICATIO NS Z539 PROCEDURE & 02-04-2016 [facility] TREATMENT [facility]OS[facility] NOT CARRIED INC OUT UNS REASON M169 OSTEOARTHRI 01-10-2016 SAMY GARBER OF HIP , PSC UNSPECIFIED W54480 PAIN IN 01-10-2016 [facility] UNSPECIFIED MEM HOSP HIP INC I30900 PAIN IN 01-10-2016 [facility] UNSPECIFIED MEM HOSP KNEE INC E878 OTHER D/O 12-27-2015 [facility] ELECTROLYTE ASSOCIATES AND FLUID BALANCE NEC A90285 OTHER 12-17-2015 [facility] SPECIFIED [facility]OS[facility] RHEUMATOID INC ARTHRITIS LEFT HIP M1612 UNILATERAL 12-17-2015 [facility] PRIMARY [facility] OSTEOARTHRI INC TIS LEFT HIP F87375 PAIN IN 12-07-2015 [facility] LEFT THIGH MEM HOS[facility] INC G35695 PAIN IN 12-07-2015 [facility] LEFT LOWER MEM HOS[facility] LEG INC U39392 PAIN IN 12-06-2015 [facility] LEFT HIP MEM HOS[facility] INC E32748 NON-PRSS 11-24-2015 [facility] CHRN ULCER PHYSICIANS SKIN OTH GROUP SITES UNS SEVERITY K30560 TYPE 2 11-16-2015 [place] [facility]NA DIABETES MELLITUS WITH FOOT ULCER M2570 OSTEOPHYTE 11-16-2015 [place] UNSPECIFIED JOINT Y64289 PAIN IN 10-19-2015 [place] RIGHT FOOT D509 IRON 09-29-2015 [facility] HEALTH ANEMIA ASSOCIATES UNSPECIFIED U41836 COMBINED 08-24-2015 [place] FORMS OF [facility] A[facility]-RELATED INSTITUTE CATARACT LEFT EYE H269 UNSPECIFIED 08-24-2015 [facility] CATARACT MEM HOS[facility] INC U78625 COMBINED 07-27-2015 [place] [facility]MS [facility] A[facility]-RELATED INSTITUTE CATARACT RIGHT EYE E[address] [facility] HEALTH PROTEIN-EVGENY ASSOCIATES ORIE MALNUTRITIO N A19527 COMBINED 06-22-2015 [place] [facility]MS [facility] A[facility]-RELATED INSTITUTE CATARACT BILATERAL H538 OTHER 06-22-2015 [place] VISUAL EYE DISTURBANCE INSTITUTE S N186 END STAGE 05-24-2015 [facility] RENAL HEALTH DISEASE ASSOCIATES 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 [facility] INC CY CHRONIC PERIPHERAL I071 RHEUMATIC 05-11-2015 [place] [facility] TRICUSPID SERV INSUFFICIEN FOUNDATION CY 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 05-11-2015 [place] [facility] C MITRAL SERV VALVE FOUNDATION INSUFFICIEN CY Z0189 ENCOUNTER 05-06-2015 [facility] OTHER AMB SERVICE SPECIFIED SPECIAL EXAMINATION S E1136 TYPE 2 04-29-2015 [place] [facility] MELLITUS CENTER WITH DIABETIC CATARACT H2513 AGE-RELATED 04-29-2015 [place] NUCLEAR VISION CATARACT CENTER BILATERAL D20823 CATARACT 04-29-2015 [facility] SECONDARY TO OCULAR DISORDERS UNS EYE I5032 CHRONIC 04-29-2015 [facility] DIASTOLIC CONGESTIVE HEART FAILURE R5382 CHRONIC 04-29-2015 [facility] FATIGUE UNSPECIFIED 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 M7731 CALCANEAL 03-30-2015 [place] SPUR RIGHT MEDICAL FOOT IMAGING ASS M059 RA WITH 03-23-2015 [place] RHEUMATOID EMERGENCY FACTOR AMBULAN UNSPECIFIED K94954 PAIN IN 03-23-2015 [place] UNSPECIFIED EMERGENCY LIMB AMBULAN [id number] LACERATION 03-23-2015 [place] W/FOREIGN EMERGENCY BODY UNS AMBULAN FOOT INITIAL ENC Z7901 HALF-WAY 03-16-2015 [facility] CURRENT USE HEALTH OF ASSOCIATES ANTICOAGULA NTS G8929 OTHER 02-25-2015 [place] CHRONIC EMERGENCY PAIN AMBULAN J9690 RESP FAIL 02-25-2015 [place] UNS UNS EMERGENCY WHETHER AMBULAN W/HYPOXIA/H YPERCAPNIA E975 02-24-2015 [facility] A419 SEPSIS 02-18-2015 [facility] UNSPECIFIED HEALTH ORGANISM ASSOCIATES E0590 THYROTOXICO 02-18-2015 [facility] SIS UNS W/O HEALTH THYROTOXIC ASSOCIATES CRISIS/STOR M R350 FREQUENCY 02-18-2015 [facility] MICTURITION ASSOCIATES R7989 OTHER SPEC 02-18-2015 [facility] ABNORMAL HEALTH FINDINGS ASSOCIATES BLOOD CHEMISTRY R4182 ALTERED 01-22-2015 [place] MENTAL EMERGENCY STATUS AMBULAN UNSPECIFIED I270 PRIMARY 01-21-2015 [facility] PULMONARY LAR HYPERTENSIO CONSULTANTS N O C07141 [place]SHD [place] 01-19-2015 [facility] COR ARTREY LAR W/UNS CONSULTANTS ANGINA O PECTORIS F56248X NONDSPL FX 01-19-2015 [facility] 2ND GENERAL METATARSAL SURGERY RT FT INIT ENC CLOS FX E1365 OTH SPEC 01-16-2015 [facility] DIABETES LAR MELLITUS CONSULTANTS WITH O HYPERGLYCEM IA I272 OTHER 01-15-2015 [facility] SECONDARY REGIONAL PULMONARY MEDICAL HYPERTENSIO N J811 CHRONIC 01-[facility] EDEMA ASSOCIAT J9610 CHRONIC 01-15-2015 [facility] RESPIRATORY REGIONAL FAIL UNS MEDICAL HYPOXIA/HYP ERCAPNIA L80782 NON-PRSS 01-15-[facility] ULCR RADI[facility] OTH PART LT ASSOCIAT FOOT UNS SEVERITY M60679 NON-PRSS 01-15-2015 [facility] CHR ULCR REGIONAL UNS PART LT MEDICAL LOW LEG UNS SEV P58688A DISPLACED 01-15-[facility] FX 2ND RADIOLOGY METATARSAL ASSOCIAT RT FT INIT CLOS FX I5040 UNSPECIFIED 01-14-2015 [facility] SYSTOLIC & HOSPITAL DIASTOLIC CHF J90 PLEURAL 01-14-2015 [place] EFFUSION MEDICAL NOT IMAGING ASS ELSEWHERE CLASSIFIED M0540 RHEUMATOID 01-14-2015 [facility] WITH RA HOSPITAL UNSPECIFIED SITE R590 LOCALIZED 01-14-2015 [place] ENLARGED MEDICAL LYMPH NODES IMAGING ASS 74554 COR 01-13-2015 [facility] ATHEROSLERO LAR UNSPEC CONSULTANTS TYPE VESSEL O [place]/YOVANNY T 4258 CARDIOMYOPA 01-13-2015 [facility] THY OTHER LAR DISEASES CONSULTANTS CLASSIFIED O ELSW 4280 CONGESTIVE 01-13-2015 [facility] HEART LAR FAILURE CONSULTANTS [place]NSPECIFIED O 08261 SHORTNESS 01-13-2015 [facility] OF BREATH LAR CONSULTANTS O 18762 DIAB W/O 01-12-[facility] II/[facility]S NOT [facility] P STATED UNCNTRL 2724 OTHER AND 01-12-2015 [facility] UNSPECIFIED [facility] HYPERLIPIDE NICHOLAS 3384 CHRONIC 01-12-2015 [facility] PAIN [facility] SYNDROME 4019 UNSPECIFIED 01-12-[facility] P N 4254 OTHER 01-12-2015 [facility] PRIMARY [facility] CARDIOMYOPA HOSPITAL P MARNI 4259 UNSPECIFIED 01-12-2015 [facility] SECONDARY [facility] CARDIOMYOPA THY 16688 UNSPECIFIED 01-12-2015 [facility] SYSTOLIC [facility] HEART FAILURE 496 CHRONIC 01-12-2015 [place] AIRWAY EMERGENCY OBSTRUCTION AMBULAN NEC 21804 ACUTE 01-12-2015 [facility] RESPIRATORY [facility] FAILURE 5849 ACUTE 01-12-2015 [place] KIDNEY EMERGENCY FAILURE AMBULAN UNSPECIFIED 5853 CHRONIC 01-12-2015 [facility] KIDNEY [facility] DISEASE STAGE III (MODERATE) 7140 RHEUMATOID 01-12-2015 [facility] ARTHRITIS [facility] 7862 COUGH 01-12-2015 [facility] [facility] 51468 SOLITARY 01-12-2015 [place] PULMONARY MEDICAL NODULE IMAGING ASS V4582 POSTSURG 01-12-2015 [facility] PERCUT [facility] TRANSLUMINA HOSPITAL P L COR ANGPLSTY STS V5867 LONG-TERM 01-12-2015 [facility] USE OF [facility] INSULIN HOSPITAL P V5869 LONG-TERM 01-12-2015 [facility] (CURRENT) [facility] USE OF HOSPITAL P OTHER MEDICATIONS 64483 01-04-2015 [facility] COMM[facility] 32102 ATRIAL 12-25-2014 [facility] N [facility] O 7823 EDEMA 12-25-2014 [facility] AMBULANCE SERVICE 43638 OTHER FLUID 12-24-2014 [facility] 76532 ANEMIA IN 12-24-2014 [facility] DISEASE 25451 HTN CKD UNS 12-24-2014 [facility] W/CKD SERV STAGE I [facility] THRU STAGE IV/UNS 5880 RENAL 12-24-2014 [facility] OSTEODYSTRO [facility] PHY [facility] 4240 MITRAL 12-22-2014 [facility] DISORDERS [facility] 4242 TRICUSPID 12-22-2014 [facility] SPEC NONRHEUMATI C 12062 OCCL&STENOS 12-22-2014 [facility] PRECERBRL IMAGING ASS ART W/O INFARCT 50053 OTHER 12-19-2014 [facility] CHRONIC PHYSICIANS PAIN GROUP 4011 ESSENTIAL 12-19-2014 [facility] HYPERTENSIO PHYSICIANS N, BENIGN GROUP 4439 UNSPECIFIED 12-18-2014 [facility] PERIPHERAL [facility]ASC[facility] DISEASE O V4509 OTHER 12-18-2014 [facility] SPECIF[facility] CARDIAC INC DEVICE IN SITU 5601 PARALYTIC 12-09-2014 [facility] ILEUS PHYSICIANS GROUP 7873 FLATULENCE 12-02-2014 [facility] ERUCTATION PHYSICIANS AND GAS GROUP PAIN 51065 ABDOMINAL 12-02-2014 [facility] PAIN, PHYSICIANS UNSPECIFIED GROUP SITE 01379 UNS 12-01-2014 [facility] GASTRITIS&G AMBULANCE ASTRODUODIT SERVICE IS W/O MENTION HEMORR 5609 UNSPECIFIED 12-01-2014 [facility]TESTINAL [facility] INC OBSTRUCTION 36659 CALCU 12-01-2014 [facility] W/O MENTION IMAGING ASS CHOLECYST/O BST V4502 AUTOMATIC 12-01-2014 [facility] IMPLANTABLE [facility] CARDIAC INC DEFIBRILLAT OR SITU 250 DIABETES 11-26-2014 [facility] [place] [address] OTHER 11-23-2014 [facility] SPECIFIED CARDIAC DYSRHYTHMIA S 5851 CHRONIC 11-23-2014 [facility] [place] [address] RESTLESS 11-06-2014 [facility] SYNDROME C[facility] 45733 ESOPHAGEAL 11-06-2014 [facility] REFLUX PRIMARY CARE 4293 CARDIOMEGAL 10-13-2014 [place] [address] OTHER 10-13-2014 [place] [facility]AL [facility] CE RESPIRATORY ABNORMALITI ES 5932 ACQUIRED 10-07-2014 [facility]ST OF MEDICAL KIDNEY IMAGING ASS 31261 UNSPECIFIED 09-11-2014 [facility] INFECTION PARTNERS OF OF BONE LEXINGT ANKLE AND FOOT 9597 INJURY 09-11-2014 [facility] CIFIED KNEE INC LEG ANKLE&FOOT V5881 FITTING AND 09-11-2014 [place] ADJUSTMENT MEDICAL OF IMAGING ASS VASCULAR CATHETER 63178 DIAB W/O 09-08-2014 [place] [facility] MENTION SERV COMP TYPE FOUNDATION II/UNS TYPE UNCNTRL 2767 HYPERPOTASS 08-26-2014 [facility] P 412 OLD 08-26-2014 [facility]ARDIAL [facility] INFARCTION INC 05954 CORONARY 08-26-2014 [facility] P CORONARY ARTERY 5859 CHRONIC 08-26-2014 [facility] DISEASE INC UNSPECIFIED 09053 WHEEZING 08-26-2014 [facility] 1101 DERMATOPHYT 08-14-2014 [facility] OF NAIL 89050 DIAB 08-14-2014 [facility] W/PERIPH CIRC D/O TYPE II/UNS TYPE UNCNTRL 7295 PAIN IN 08-14-2014 [facility] SOFT TISSUES OF LIMB 462 ACUTE 08-08-2014 [facility] 48557 OTH NONSPC 08-08-2014 [place] ABN FINDNG MEDICAL RAD&OTH EXM IMAGING ASS BODY STRUCTURE 714 RA AND 07-23-2014 [facility] OTHER AREA AGENCY INFLAMMATOR ON RED Y POLYARTHROP ATHIES 63950 URINARY 07-09-2014 [facility] HESITANCY [facility]IMARY CARE 4271 PAROXYSMAL 06-22-2014 [place] [facility] VENTRICULAR SERV FOUNDATION TACHYCARDIA V5331 FITTING AND 06-22-2014 [place] [facility] ADJUSTMENT SERV OF CARDIAC FOUNDATION PACEMAKER V707 EXAMINATION 06-22-2014 [place] [facility]ICAL OF SERV PARTICIPANT FOUNDATION IN CLINICAL TRIAL 40105 OTHER 06-21-2014 [place] [facility] PREMATURE SERV BEATS FOUNDATION 01225 NONSPECIFIC 06-21-2014 [place] [facility] ABNORMAL SERV ELECTROCARD FOUNDATION IOGRAM 02689 DIAB 06-18-2014 [facility] TYPE II/UNS TYPE UNCNTRL 45988 ACUT MA 06-18-2014 [facility] IAL INFARCT INIT EPIS CARE 79044 ULCER OF 06-18-2014 [facility] V4589 OTHER 06-18-2014 [place] [facility] POSTSURGICA SERV L STATUS FOUNDATION OTHER 40352 DIAB W/O 06-17-2014 [place] [facility] MENTION SERV COMP TYPE I FOUNDATION [JUV TYPE] UNCNTRL 15360 ACUT 06-17-2014 [facility] INFARCT UNS SERVICE SITE EPIS CARE UNS 75420 ACUTE 06-17-2014 [facility] P UNSPEC SITE INIT EPIS CARE 5180 PULMONARY 06-17-2014 [place] [facility] COLLAPSE SERV FOUNDATION 7850 UNSPECIFIED 06-17-2014 [place] [facility] TACHYCARDIA IMAGING ASS 15477 PRECORDIAL 06-17-2014 [facility] PAIN [facility] SERVICE 3572 POLYNEUROPA 06-10-2014 [facility] IN HEALTH DIABETES AGENCY 99067 ULCER OF 06-10-2014 [facility] OTHER PART HEALTH OF FOOT AGENCY 31790 MUSCLE 06-10-2014 [facility] WEAKNESS HEALTH (GENERALIZE AGENCY D) 7833 CELLULITIS 04-14-2014 [facility] AND ABSCESS PRIMARY OF LEG CARE EXCEPT FOOT 61148 INSOMNIA 03-19-2014 [facility] UNSPECIFIED PRIMARY CARE 64657 UNSPECIFIED 01-22-2014 [facility] [place] [address] ULCER OF 01-22-2014 [facility] INC V571 OTHER 01-22-2014 [facility] PHYSICAL [facility] THERAPY INC 8911 OPEN WOUND 01-19-2014 [facility] OF KNEE LEG PRIMARY AND ANKLE CARE COMPLICATED 586 UNSPECIFIED 08-27-2013 [place] RENAL REGIONAL FAILURE MEDICAL CE 7038 OTHER 08-27-2013 [facility] SPECIFIED PRIMARY DISEASE OF CARE NAIL 39595 OLECRANON 08-01-2013 [facility] BURSITIS PRIMARY CARE 88222 GEN 07-22-2013 [facility] OSTEOARTHRO HOME SIS MEDICAL INVOLVING EQUIPME MULTIPLE SITES 18125 GENERALIZED 05-22-2013 [facility] OSTEOARTHRO SIS UNSPECIFIED SITE 39072 ULCER OF 03-17-2013 [facility] HEEL AND PRIMARY MIDFOOT CARE 7812 ABNORMALITY 03-17-2013 [facility] OF GAIT PRIMARY CARE 24316 OSTEOARTHRO 02-20-2013 [facility] [place] SIS UNSPEC ORTHOPAEDIC WHETHER S PLC GEN/LOC LOWER LEG V0481 NEED 02-12-2013 [facility] PROPHYLACTI PRIMARY C CARE VACCINATION &INOCULATIO N FLU 84567 PAIN IN 11-15-2012 [facility] JOINT, PRIMARY SHOULDER CARE REGION 93497 PAIN IN 11-15-2012 [facility] JOINT, PRIMARY UPPER ARM CARE 48894 UNSPEC 10-08-2012 [facility] POLYARTHROP CENTER OF ATHY/POLYAR LEXINGTO THRITIS SITE UNSPEC 46580 DIAB 09-20-2012 [place] W/NEURO REGIONAL MANIFESTS MEDICAL CE TYPE II/UNS TYPE UNCNTRL 4871 INFLUENZA 05-27-2012 [facility] WITH OTHER RESPIRATORY MANIFESTATI ONS 61560 FEVER 05-18-2012 [facility] UNSPECIFIED KOKO 4660 ACUTE 04-25-2012 [facility] BRONCHITIS 4658 ACUTE URIS 02-28-2012 [facility]ARK[facility] OF OTHER MULTIPLE SITES 32617 PRESSURE 02-28-2012 [facility] ULCER HEEL 7993 UNSPECIFIED 01-19-2012 [facility] 23639 OTHER 07-24-2011 SWAP[facility] SARKAR URINARY INCONTINENC E 50968 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 7291 UNSPECIFIED 12-23-2010 LES MYALGIA JOSE MARCHPIrenaSIrenaCIrena MYOSITIS 16287 UNSPECIFIED 11-30-2010 [place] LAPAROSCOPI OSTEOMYELIT C & IS ANKLE ADVANCED S AND FOOT 9961 [facility] COMP 11-30-2010 [place] OT LAPAROSCOPI VASCULAR C & DEVICE [place]ANC[place] S IMPLANT&[place] [address] FLUSHING 09-20-2010 [facility] [place] [place] [address] PRESSURE 06-14-2010 ROSY Nelson ULCER ANDRE VALDES, UNSPECIFIED LLC SITE 08490 ACUTE 06-14-2010 ROSY Nelson OSTEOMYELIT ANDRE VALDES, IS SITE LLC UNSPECIFIED 04798 ACUTE 06-02-2010 ROSY Nelson OSTEOMYELION POWELL MD, IS, ANKLE LLC AND FOOT 2859 UNSPECIFIED 05-19-2010 [facility] 00903 UNSPECIFIED 05-19-2010 [facility] CELLULITIS [facility] AND INC ABSCESS OF TOE 85168 PRESSURE 05-19-2010 [facility] ULCER SOLUTIONS BUTTOCK 22110 UNSPECIFIED 05-17-2010 [place] LAPAROSCOPI OSTEOMYELIT C & IS OTHER ADVANCED S SPECIFIED SITES 29454 CHEST PAIN 05-17-2010 [place] UNSPECIFIED HEART & VASCULAR PH 6829 CELLULITIS 05-16-2010 [facility] [place] AND ABSCESS IMAGING PSC OF UNSPECIFIED SITE 68874 UNSPECIFIED 05-16-2010 ROSY POWELL MD, OSTEOMYELIT LLC IS SITE UNSPECIFIED 5939 UNSPECIFIED 05-13-2010 [facility] [place] DISORDER IMAGING P[facility] OF KIDNEY AND URETER 19908 OTHER CHEST 05-13-2010 [place] PAIN LAPAROSCOPI C & ADVANCED S 23211 OTHER 05-13-2010 [facility] [place] INVOLVING KIDNEY CARE URINARY SYSTEM 32079 PRESSURE 05-12-2010 [place] [address] PRESSURE 05-12-2010 [place] ULCER STAGE REGIONAL II MEDICAL CE 7851 PALPITATION 04-19-2010 [facility] HEART & VASCULAR PH 3569 UNSPEC 04-14-2010 [facility] HEREDIT&IDI FAMILY OPATHIC PRACTICE CL PERIPHERAL NEUROPATHY 70458 DIAB W/O 01-24-2010 [facility] COMP TYPE I FAMILY [JUV] NOT PRACTICE CL STATED UNCNTRL 7801 HALLUCINATI 12-23-2009 [facility] ONS EMERGENCY PHYSICIANS 6827 CELLULITIS 11-02-2009 [facility] AND ABSCESS EMERGENCY OF FOOT PHYSICIANS EXCEPT TOES 85256 OSTEOARTHRO 11-02-2009 [facility] [place] SIS UNSPEC IMAGING PSC WHETHER GEN/LOC ANK&FOOT 9174 FOOT&TOE 11-02-2009 [facility] INSECT BITE EMERGENCY PHYSICIANS NONVENOMOUS W/O MENTION INF 9175 FOOT AND 11-02-2009 [place] TOE INSECT REGIONAL BITE MEDICAL NONVENOMOUS CENT INFECTED E0008 OTHER 11-02-2009 [place] EXTERNAL REGIONAL CAUSE MEDICAL STATUS CENT E8490 PLACE OF 11-02-2009 [facility] OCCURRENCE, EMERGENCY HOME PHYSICIANS E9064 BITE OF 11-02-2009 [facility] NONVENOMOUS EMERGENCY ARTHROPOD PHYSICIANS 3670 HYPERMETROP 10-21-2009 [facility] PTON, JERMAINE 32967 OTHER 10-05-2009 [facility] 91693 PAIN IN 09-07-2009 [place] JOINT PAIN PELVIC PHYSICIANS REGION AND PSC THIGH 51896 PAIN IN 09-07-2009 [place] JOINT, PAIN LOWER LEG PHYSICIANS PSC 7242 LUMBAGO 09-07-2009 [facility] 7410 SPINA 08-03-2009 BHAGRATH, BIFIDA WITH KSENIA S HYDROCEPHAL US 7804 DIZZINESS 07-30-2009 [facility] GIDDINESS [facility]YS[facility] PSC 79897 POLYARTICUL 07-08-2009 [place] AR JUVENILE PAIN RA CHRONIC PHYSICIANS OR PSC UNSPECIFIED 7852 UNDIAGNOSED 07-01-2009 [place] CARDIAC HEART & [facility] VASCULAR PHYSICIANS, INC 74974 PAIN IN 11-09-2008 [facility], L HOME MULTIPLE MEDICAL SITES SUPPLIES INC 2689 UNSPECIFIED 10-02-2008 [place] VITAMIN D REGIONAL DEFICIENCY MEDICAL CENT 5852 CHRONIC 10-02-2008 [place] KIDNEY REGIONAL DISEASE MEDICAL STAGE II CENT (MILD) 67867 HYPERTROPHY 10-02-2008 [place] PROSTATE REGIONAL W/O UR OBST MEDICAL & OTH LUTS CENT 7910 PROTEINURIA 10-02-2008 [facility] 7231 CERVICALGIA 07-08-2008 [facility] PAIN PHYSICIANS PSC 10031 OSTEOARTHRO 2008 [facility] S UNSPEC ORTHOPAEDIC GEN/LOC S PLC PELV REGION&THIG H 3829 UNSPECIFIED 05-28-2008 [place] [facility]IS [facility] MEDIA HOSP 4659 ACUTE URIS 04-28-2008 [place] OF [facility]-ISM UNSPECIFIED HOSP SITE 7213 LUMBOSACRAL 04-02-2008 [facility] SERVICES SPONDYLOSIS 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 7244 THORACIC/TY 04-02-2008 [facility] MBOSACRAL SERVICES NEURITIS/RA PSC DICULITIS UNSPEC 8472 LUMBAR 04-02-2008 [facility] SPRAIN AND SERVICES STRAIN PSC 6828 CELLULITIS 03-03-2008 [place] AND ABSCESS [facility]-ISM OF OTHER HOSP SPECIFIED SITE 83996 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 64968 SPINAL 02-26-2008 [facility] STENOSIS OF SERVICES THORACIC PSC REGION 7241 PAIN IN 02-26-2008 [facility] THORACIC SERVICES SPINE PSC 27126 CLOS FX 02-26-2008 [facility] T7-T12 SERVICES LEVEL PSC W/UNSPEC SPINAL CORD INJURY 49690 SECONDARY 02-25-2008 [facility] HYPERPARATH NEPHROLOGY YROIDISM CONSULTANTS 9552 INJURY TO 02-11-2008 [facility] DORSAL SERVICES NERVE ROOT PSC 73077 OSTEOARTHRO 01-14-2008 [facility] S UNSPEC SERVICES GEN/LOC OTH PSC SPEC SITES 03258 DISPLCMT 01-14-2008 [facility] LUMBAR SERVICES INTERVERT PSC DISC W/O MYELOPATHY 50071 SPINAL STEN 01-14-2008 [facility] LUMB REG SERVICES W/O PSC NEUROGENIC CLAUDICATIO N 82800 SCOLIOSIS , 01-14-2008 [facility] IDIOPATHIC SERVICES PSC 7246 DISORDERS 12-25-2007 [facility] OF SACRUM SERVICES PSC 7245 UNSPECIFIED 12-21-2007 [facility] BACKACHE IMAGING PSC 98308 ABDOMINAL 12-21-2007 [place] PAIN OTHER REGIONAL SPECIFIED MEDICAL SITE CENT 3970 DISEASES OF 11-18-2007 [facility], TRICUSPID ZE C VALVE 33277 PRIMARY LOC 11-13-2007 [facility] OSTEOARTHRO MEDICAL SIS PELVIC CENT REGION&THIG H 38446 PRIMARY 11-13-2007 [facility] OSTEOARTHRO MEDICAL SIS LOWER CENT LEG 7176 LOOSE BODY 11-13-2007 [place] IN KNEE [facility] 22500 DISORDER OF 11-13-2007 [facility] BONE AND IMAGING PSC CARTILAGE UNSPECIFIED 2818 ANEMIA 09-26-2007 [facility] W/OTHER PLLC SPEC NUTRITIONAL DEFIC 4778 ALLERGIC 09-26-2007 [facility] DUE TO PLLC OTHER ALLERGEN 80506 UNSPECIFIED 09-26-2007 [facility] CELLULITIS [facility] AND PLL[facility] ABSCESS OF FINGER 03227 NOCTURIA 09-26-2007 [facility] 01906 VOMITING 09-13-2007 [facility] 21903 OSTEOARTHRO 09-04-2007 [facility] S UNSPEC NEPHROLOGY WHETHER CONSULTANTS GEN/LOC UNSPEC SITE 52597 ELEVATED 09-04-2007 [facility] PROSTATE NEPHROLOGY SPECIFIC CONSULTANTS ANTIGEN 75110 UNSPECIFIED 06-24-2007 [facility] CONSTIPATIO MEDICAL N CENT 50295 LOSS OF 06-24-2007 [place] WEIGHT [facility] 60129 URINARY 06-24-2007 [place] FREQUENCY [facility] V7644 SPECIAL 06-24-2007 [facility] MALIGNANT MEDICAL NEOPLASM OF CENT PROSTATE 4779 [...] -3 -2 0. D 34 IN ti MA 40 1- 5- 00 CA 30 EY ve N 52 20 20 0 RE 14 C 38 17 17 MA 50 0 PH CH 0 AR AE MG MA L CY S TA BL LL ET C SE 00 08 11 0 12 30 ME 15 GA Ac NN 90 -3 -2 00 D 34 IN ti A- 46 1- 5- .0 CA 30 EY ve LA 52 20 20 00 RE 16 X 26 17 17 MA 8. 1 PH CH 6 AR AE MG MA L CY S TA BL LL ET C ST 00 08 11 0 30 30 ME 15 GA Ac OO 53 -3 -2 0. D 34 IN ti L 61 1- 5- 00 CA 30 EY ve SO 06 20 20 0 RE 15 FT 41 17 17 MA EN 0 PH CH ER AR AE MA L 25 CY S 0 MG LL C SO FT GE L 00 08 11 0 30 30 ME 15 GA Ac PI 90 -3 -2 0. D 31 IN ti RI 46 1- 0- 00 CA 53 EY ve N 28 20 20 0 RE 70 81 88 17 17 MA 9 PH CH MG AR AE MA L CH CY S EW AB LL LE C TA BL ET TA 00 08 11 0 30 30 ME 15 GA Ac B- 90 -3 -1 0. D 28 IN ti A- 40 1- 5- 00 CA 72 EY ve 53 20 20 0 RE 36 TE 08 17 17 MA 0 PH CH TA AR AE BL MA L ET CY S LL C FE 00 08 11 0 30 30 ME 15 GA Ac RR 53 -3 -1 0. D 28 IN ti OU 61 1- 5- 00 CA 72 EY ve S 00 20 20 0 RE 35 CLARK 90 17 17 MA LF 1 PH CH AT AR AE E MA L 32 CY S 5 MG LL C TA BL ET 00 08 11 0 30 30 ME 15 GA Ac TA 53 -3 -1 0. D 28 IN ti MA 63 1- 5- 00 CA 72 EY ve N 79 20 20 0 RE 37 D3 00 17 17 MA 1 PH CH 2, AR AE 00 MA L 0 CY S UN IT LL C SO FT GE L LO 00 08 11 0 30 30 ME 15 GA Ac RA 78 -3 -0 0. D 23 IN ti TA 15 1- 4- 00 CA 05 EY ve DI 07 20 20 0 RE 03 NE 70 17 17 MA 1 PH CH 10 AR AE MA L MG CY S TA LL BL C ET ST 00 08 10 0 30 30 ME 15 GA Ac OO 53 -3 -2 0. D 18 IN ti L 61 1- 7- 00 CA 77 EY ve SO 06 20 20 0 RE 75 FT 41 17 17 MA EN 0 PH CH ER AR AE MA L 25 CY S 0 MG LL C SO FT GE L SE 00 08 10 0 12 30 ME 15 GA Ac NN 90 -3 -2 00 D 18 IN ti A- 46 1- 7- .0 CA 77 EY ve LA 52 20 20 00 RE 76 X 26 17 17 MA 8. 1 PH CH 6 AR AE MG MA L CY S TA BL LL ET C 00 08 10 0 30 30 ME 15 GA Ac TA 90 -3 -2 0. D 18 IN ti MA 40 1 7 CA 77 EY ve N 52 20 20 0 RE 74 C 38 17 17 MA 50 0 PH CH 0 AR AE MG MA L CY S TA BL LL ET C 00 08 10 0 30 30 ME 15 GA Ac PI 90 -3 -2 0. D 16 IN ti RI 46 1- 3- CA 98 EY ve N 28 20 20 0 RE 63 81 88 17 17 MA 9 PH CH MG AR AE MA L CH CY S EW AB LL LE C TA BL ET FE 00 08 10 0 30 30 ME 15 GA Ac RR 53 -3 -1 0. D 12 IN ti OU 61 - 6 CA 12 EY ve S 00 20 20 0 RE 10 CLARK 90 17 17 MA LF 1 PH CH AT AR AE E MA L 32 CY S 5 MG LL C TA BL ET 00 08 10 0 30 30 ME 15 GA Ac TA 53 -3 -1 0. D 12 IN ti MA 63 - 6 CA 12 EY ve N 79 20 20 0 RE 14 D3 00 17 17 MA 1 PH CH 2, AR AE 00 MA L 0 CY S UN IT LL C SO FT GE L TA 00 08 10 0 30 30 ME 15 GA Ac B- 90 -3 -1 0. D 12 IN ti A- 40 1- 6- 00 CA 12 EY ve 53 20 20 0 RE 11 TE 08 17 17 MA 0 PH CH TA AR AE BL MA L ET CY S LL C LO 00 08 10 0 30 30 ME 15 GA Ac RA 78 -3 -0 0. D 07 IN ti TA 15 1- 6- 00 CA 11 EY ve DI 07 20 20 0 RE 54 NE 70 17 17 MA 1 PH CH 10 AR AE MA L MG CY S TA LL BL C ET 00 08 09 0 30 30 ME 14 GA Ac PI 90 -3 -2 0. D 87 IN ti RI 46 1- 7- 00 CA 57 EY ve N 28 20 20 0 RE 76 81 88 17 17 MA 9 PH CH MG AR AE MA L CH CY S EW AB LL LE C TA BL ET ST 00 08 09 0 30 30 ME 14 GA Ac OO 53 -3 -2 0. D 87 IN ti L 61 1- 7- 00 CA 57 EY ve SO 06 20 20 0 RE 82 FT 41 17 17 MA EN 0 PH CH ER AR AE MA L 25 CY S 0 MG LL C SO FT GE L 00 08 09 0 13 13 ME 14 GA Ac TA 90 -3 -2 0. D 87 IN ti MA 40 1- 7- 00 CA 57 EY ve N 52 20 20 0 RE 80 C 38 17 17 MA 50 0 PH CH 0 AR AE MG MA L CY S TA BL LL ET C SE 00 08 09 0 12 30 ME 14 GA Ac NN 90 -3 -2 00 D 87 IN ti A- 46 1- 7- .0 CA 57 EY ve LA 52 20 20 00 RE 99 X 26 17 17 MA 8. 1 PH CH 6 AR AE MG MA L CY S TA BL LL ET C RO 00 08 09 0 15 30 ME 14 GA Ac BA 90 -3 -1 00 D 87 IN ti FE 40 1- 8- .0 CA 57 EY ve N- 05 20 20 00 RE 97 DM 31 17 17 MA 6 PH CH SY AR AE RU MA L P CY S LL C FE 00 08 09 0 30 30 ME 14 GA Ac RR 53 -3 -1 0. D 87 IN ti OU 61 1- 8- 00 CA 57 EY ve S 00 20 20 0 RE 84 CLARK 90 17 17 MA LF 1 PH CH AT AR AE E MA L 32 CY S 5 MG LL C TA BL ET 00 08 09 0 30 30 ME 14 GA Ac TA 53 -3 -1 0. D 97 IN ti MA 63 1- 8- 00 CA 42 EY ve N 79 20 20 0 RE 76 D3 00 17 17 MA 1 PH CH 2, AR AE 00 MA L 0 CY S UN IT LL C SO FT GE L EN 00 09 09 0 13 1 ME 14 GA Ac EM 53 -1 -1 30 D 97 IN ti A 67 8- 8- .0 CA 43 EY ve 41 20 20 00 RE 40 55 17 17 MA 1 PH CH AR AE MA L CY S LL C TA 00 08 09 0 30 30 ME 14 GA Ac B- 90 -3 -1 0. D 87 IN ti A- 40 1- 8- 00 CA 57 EY ve 53 20 20 0 RE 93 TE 08 17 17 MA 0 PH CH TA AR AE BL MA L ET CY S LL C LO 00 08 09 0 30 30 ME 14 GA Ac RA 78 -3 -0 0. D 87 IN ti TA 15 1- 8- 00 CA 57 EY ve DI 07 20 20 0 RE 87 NE 70 17 17 MA 1 PH CH 10 AR AE MA L MG CY S TA LL BL C ET 00 08 08 0 30 30 ME 14 GA Ac TA 90 -2 -2 0. D 83 IN ti MA 40 5- 5- 00 CA 93 EY ve N 52 20 20 0 RE 36 C 38 17 17 MA 50 0 PH CH 0 AR AE MG MA L CY S TA BL LL ET C 00 06 08 0 30 30 ME 14 GA Ac PI 90 -2 -2 0. D 81 IN ti RI 46 0- 1- 00 CA 39 EY ve N 28 20 20 0 RE 76 81 88 17 17 MA 9 PH CH MG AR AE MA L CH CY S EW AB LL LE C TA BL ET 00 06 08 0 30 30 ME 14 GA Ac TA 53 -2 -1 0. D 78 IN ti MA 63 0- 8- 00 CA 56 EY ve N 79 20 20 0 RE 78 D3 00 17 17 MA 1 PH CH 2, AR AE 00 MA L 0 CY S UN IT LL C SO FT GE L BI 00 06 08 0 15 30 ME 14 GA Ac SC 90 -2 -1 0. D 44 IN ti OL 45 0- 8- 00 CA 02 EY ve AX 05 20 20 0 RE 06 81 17 17 MA 10 2 PH CH AR AE MG MA L CY S CLARK PP LL OS C IT OR Y ST 00 06 08 0 30 30 ME 14 GA Ac OO 53 -2 -1 0. D 77 IN ti L 61 0- 7- 00 CA 70 EY ve SO 06 20 20 0 RE 49 FT 41 17 17 MA EN 0 PH CH ER AR AE MA L 25 CY S 0 MG LL C SO FT GE L FE 00 06 08 0 30 30 ME 14 GA Ac RR 53 -2 -1 0. D 77 IN ti OU 61 0- 7- 00 CA 70 EY ve S 00 20 20 0 RE 48 CLARK 90 17 17 MA LF 1 PH CH AT AR AE E MA L 32 CY S 5 MG LL C TA BL ET SE 00 06 08 0 12 30 ME 14 GA Ac NN 90 -2 -1 00 D 77 IN ti A- 46 0- 7- .0 CA 70 EY ve LA 52 20 20 00 RE 50 X 26 17 17 MA 8. 1 PH CH 6 AR AE MG MA L CY S TA BL LL ET C TA 00 06 08 0 30 30 ME 14 GA Ac B- 90 -2 -1 0. D 76 IN ti A- 40 0- 4- 00 CA 87 EY ve 53 20 20 0 RE 37 TE 08 17 17 MA 0 PH CH TA AR AE BL MA L ET CY S LL C LO 00 06 08 0 30 30 ME 14 GA Ac RA 78 -2 -1 0. D 74 IN ti TA 15 0- 2- 00 CA 04 EY ve DI 07 20 20 0 RE 56 NE 70 17 17 MA 1 PH CH 10 AR AE MA L MG CY S TA LL BL C ET RO 00 06 08 0 15 30 ME 14 GA Ac BA 90 -2 -0 00 D 74 IN ti FE 40 0- 9- .0 CA 72 EY ve N- 05 20 20 00 RE 35 DM 31 17 17 MA 6 PH CH SY AR AE RU MA L P CY S LL C SE 00 06 07 0 12 30 ME 14 GA Ac NN 90 -2 -1 00 D 60 IN ti A- 46 0- 8- .0 CA 24 EY ve LA 52 20 20 00 RE 60 X 26 17 17 MA 8. 1 PH CH 6 AR AE MG MA L CY S TA BL LL ET C 00 06 07 0 30 30 ME 14 GA Ac PI 90 -2 -1 0. D 60 IN ti RI 46 0- 8- 00 CA 24 EY ve N 28 20 20 0 RE 55 81 88 17 17 MA 9 PH CH MG AR AE MA L CH CY S EW AB LL LE C TA BL ET TA 00 06 07 0 30 30 ME 14 GA Ac B- 90 -2 -1 0. D 60 IN ti A- 40 0- 8- 00 CA 24 EY ve 53 20 20 0 RE 59 TE 08 17 17 MA 0 PH CH TA AR AE BL MA L ET CY S LL C LO 00 06 07 0 30 30 ME 14 GA Ac RA 78 -2 -1 0. D 60 IN ti TA 15 0- 8- 00 CA 24 EY ve DI 07 20 20 0 RE 58 NE 70 17 17 MA 1 PH CH 10 AR AE MA L MG CY S TA LL BL C ET ST 00 06 07 0 30 30 ME 14 GA Ac OO 53 -2 -1 0. D 60 IN ti L 61 0- 8- 00 CA 24 EY ve SO 06 20 20 0 RE 57 FT 41 17 17 MA EN 0 PH CH ER AR AE MA L 25 CY S 0 MG LL C SO FT GE L FE 00 06 07 0 30 30 ME 14 GA Ac RR 53 -2 -1 0. D 60 IN ti OU 61 0- 8- 00 CA 24 EY ve S 00 20 20 0 RE 56 CLARK 90 17 17 MA LF 1 PH CH AT AR AE E MA L 32 CY S 5 MG LL C TA BL ET MA 00 06 06 0 60 30 ME 14 GA Ac PA 90 -2 -2 0. D 44 IN ti P 41 0- 0- 00 CA 02 EY ve 50 98 20 20 0 RE 05 0 86 17 17 MA MG 1 PH CH AR AE TA MA L BL CY S ET LL C ST 00 06 06 0 30 30 ME 14 GA Ac OO 53 -2 -2 0. D 44 IN ti L 61 0- 0- 00 CA 01 EY ve SO 06 20 20 0 RE 83 FT 41 17 17 MA EN 0 PH CH ER AR AE MA L 25 CY S 0 MG LL C SO FT GE L 00 06 06 0 30 30 ME 14 GA Ac PI 90 -2 -2 0. D 44 IN ti RI 46 0- 0- 00 CA 01 EY ve N 28 20 20 0 RE 76 81 88 17 17 MA 9 PH CH MG AR AE MA L CH CY S EW AB LL LE C TA BL ET LO 00 06 06 0 30 30 ME 14 GA Ac RA 78 -2 -2 0. D 44 IN ti TA 15 0- 0- 00 CA 01 EY ve DI 07 20 20 0 RE 85 NE 70 17 17 MA 1 PH CH 10 AR AE MA L MG CY S TA LL BL C ET TA 00 06 06 0 30 30 ME 14 GA Ac B- 90 -2 -2 0. D 44 IN ti A- 40 0- 0- 00 CA 01 EY ve 53 20 20 0 RE 86 TE 08 17 17 MA 0 PH CH TA AR AE BL MA L ET CY S LL C 00 06 06 0 30 30 ME 14 GA Ac TA 53 -2 -2 0. D 44 IN ti MA 63 0- 0- 00 CA 02 EY ve N 79 20 20 0 RE 04 D3 00 17 17 MA 1 PH CH 2, AR AE 00 MA L 0 CY S UN IT LL C SO FT GE L RO 00 06 06 0 15 30 ME 14 GA Ac BA 90 -2 -2 00 D 44 IN ti FE 40 0- 0- .0 CA 02 EY ve N- 05 20 20 00 RE 15 DM 31 17 17 MA 6 PH CH SY AR AE RU MA L P CY S LL C FE 00 06 06 0 30 30 ME 14 GA Ac RR 53 -2 -2 0. D 44 IN ti OU 61 0- 0- 00 CA 01 EY ve S 00 20 20 0 RE 81 CLARK 90 17 17 MA LF 1 PH CH AT AR AE E MA L 32 CY S 5 MG LL C TA BL ET SE 00 06 06 0 12 30 ME 14 GA Ac NN 90 -2 -2 00 D 44 IN ti A- 46 0- 0- .0 CA 02 EY ve LA 52 20 20 00 RE 03 X 26 17 17 MA 8. 1 PH CH 6 AR AE MG MA L CY S TA BL LL ET C BI 00 05 06 0 12 12 ME 14 GA Ac SC 90 -2 -1 0. D 26 IN ti OL 45 6- 2- 00 CA 89 EY ve AX 05 20 20 0 RE 53 81 17 17 MA 10 2 PH CH AR AE MG MA L CY S CLARK PP LL OS C IT OR Y LO 00 03 05 0 30 30 ME 14 GA Ac RA 78 -1 -1 0. D 21 IN ti TA 15 9- 9- 00 CA 63 EY ve DI 07 20 20 0 RE 53 NE 70 17 17 MA 1 PH CH 10 AR AE MA L MG CY S TA LL BL C ET SE 00 03 05 0 12 30 ME 14 GA Ac NN 90 -1 -1 00 D 19 IN ti A- 46 9- 6- .0 CA 54 EY ve LA 52 20 20 00 RE 69 X 26 17 17 MA 8. 1 PH CH 6 AR AE MG MA L CY S TA BL LL ET C 00 03 05 0 30 30 ME 14 GA Ac TA 90 -1 -1 0. D 19 IN ti MA 45 9- 5- 00 CA 90 EY ve N 04 20 20 0 RE 88 AN 26 17 17 MA D 0 PH CH MA AR AE NE MA L RA CY S LS LL TA C BL ET 00 03 05 0 30 30 ME 14 GA Ac PI 53 -1 -1 0. D 18 IN ti RI 61 9- 2- 00 CA 24 EY ve N 00 20 20 0 RE 73 EC 44 17 17 MA 1 PH CH 81 AR AE MA L MG CY S TA LL BL C ET ST 00 02 05 0 30 30 ME 14 GA Ac OO 53 -2 -1 0. D 18 IN ti L 61 3- 2- 00 CA 24 EY ve SO 06 20 20 0 RE 76 FT 41 17 17 MA EN 0 PH CH ER AR AE MA L 25 CY S 0 MG LL C SO FT GE L 00 03 05 0 30 30 ME 14 GA Ac TA 53 -1 -1 0. D 18 IN ti MA 63 9- 2- 00 CA 24 EY ve N 79 20 20 0 RE 82 D3 00 17 17 MA 1 PH CH 2, AR AE 00 MA L 0 CY S UN IT LL C SO FT GE L BI 00 05 05 0 15 15 ME 14 GA Ac SC 90 -1 -1 0. D 18 IN ti OL 45 0- 0- 00 CA 07 EY ve AX 05 20 20 0 RE 34 81 17 17 MA 10 2 PH CH AR AE MG MA L CY S CLARK PP LL OS C IT OR Y FE 00 03 05 0 30 30 ME 14 GA Ac RR 53 -1 -0 0. D 14 IN ti OU 61 9- 5- 00 CA 67 EY ve S 00 20 20 0 RE 52 CLARK 90 17 17 MA LF 1 PH CH AT AR AE E MA L 32 CY S 5 MG LL C TA BL ET RO 00 04 05 0 15 30 ME 14 GA Ac BA 90 -0 -0 00 D 10 IN ti FE 40 7- 5- .0 CA 68 EY ve N- 05 20 20 00 RE 31 DM 31 17 17 MA 6 PH CH SY AR AE RU MA L P CY S LL C LO 45 03 04 0 30 30 ME 14 GA Ac RA 80 -1 -2 0. D 06 IN ti TA 20 9- 0- 00 CA 95 EY ve DI 65 20 20 0 RE 55 NE 08 17 17 MA 7 PH CH 10 AR AE MA L MG CY S TA LL BL C ET SE 00 03 04 0 12 30 ME 14 GA Ac NN 90 -1 -1 00 D 05 IN ti A- 46 9- 7- .0 CA 07 EY ve LA 52 20 20 00 RE 52 X 26 17 17 MA 8. 1 PH CH 6 AR AE MG MA L CY S TA BL LL ET C ST 00 02 04 0 30 30 ME 14 GA Ac OO 53 -2 -1 0. D 03 IN ti L 61 3- 3- 00 CA 60 EY ve SO 06 20 20 0 RE 86 FT 41 17 17 MA EN 0 PH CH ER AR AE MA L 25 CY S 0 MG LL C SO FT GE L 00 03 04 0 30 30 ME 14 GA Ac TA 53 -1 -1 0. D 03 IN ti MA 63 9- 3- 00 CA 60 EY ve N 79 20 20 0 RE 88 D3 00 17 17 MA 1 PH CH 2, AR AE 00 MA L 0 CY S UN IT LL C SO FT GE L 00 03 04 0 30 30 ME 14 GA Ac PI 53 -1 -1 0. D 03 IN ti RI 61 9- 3- 00 CA 60 EY ve N 00 20 20 0 RE 85 EC 44 17 17 MA 1 PH CH 81 AR AE MA L MG CY S TA LL BL C ET RO 00 04 04 0 15 30 ME 14 GA Ac BA 90 -0 -0 00 D 02 IN ti FE 40 7- 7- .0 CA 15 EY ve N- 05 20 20 00 RE 12 DM 31 17 17 MA 6 PH CH SY AR AE RU MA L P CY S LL C 00 03 04 0 30 30 ME 14 GA Ac TA 90 -1 -0 0. D 00 IN ti MA 45 9- 7- 00 CA 93 EY ve N 04 20 20 0 RE 00 AN 26 17 17 MA D 0 PH CH MA AR AE NE MA L RA CY S LS LL TA C BL ET FE 00 03 04 0 30 30 ME 14 GA Ac RR 53 -1 -0 0. D 00 IN ti OU 61 9- 7- 00 CA 92 EY ve S 00 20 20 0 RE 98 CLARK 90 17 17 MA LF 1 PH CH AT AR AE E MA L 32 CY S 5 MG LL C TA BL ET SP 00 02 03 0 30 15 ME 13 GA Ac IR 60 -0 -3 0. D 96 IN ti ON 35 2- 0- 00 CA 66 EY ve OL 76 20 20 0 RE 65 AC 32 17 17 MA TO 1 PH CH NE AR AE MA L 25 CY S MG LL C TA BL ET LO 00 03 03 0 30 30 ME 13 GA Ac RA 78 -1 -2 0. D 92 IN ti TA 15 9- 2- 00 CA 57 EY ve DI 07 20 20 0 RE 96 NE 70 17 17 MA 1 PH CH 10 AR AE MA L MG CY S TA LL BL C ET SE 00 03 03 0 12 30 ME 13 GA Ac NN 90 -1 -2 00 D 92 IN ti A- 46 9- 0- .0 CA 14 EY ve LA 52 20 20 00 RE 20 X 26 17 17 MA 8. 1 PH CH 6 AR AE MG MA L CY S TA BL LL ET C ST 00 02 03 0 30 30 ME 13 GA Ac OO 53 -2 -1 0. D 89 IN ti L 61 3- 5- 00 CA 95 EY ve SO 06 20 20 0 RE 95 FT 41 17 17 MA EN 0 PH CH ER AR AE MA L 25 CY S 0 MG LL C SO FT GE L 00 07 03 0 30 30 ME 13 GA Ac TA 53 -2 -1 0. D 89 IN ti MA 63 5- 5- 00 CA 20 EY ve N 79 20 20 0 RE 80 D3 00 16 17 MA 1 PH CH 2, AR AE 00 MA L 0 CY S UN IT LL C SO FT GE L 00 09 03 0 30 30 ME 13 GA Ac PI 53 -1 -1 0. D 89 IN ti RI 61 9- 5- 00 CA 20 EY ve N 00 20 20 0 RE 76 EC 44 16 17 MA 1 PH CH 81 AR AE MA L MG CY S TA LL BL C ET 00 06 03 0 30 30 ME 13 GA Ac TA 90 -1 -1 0. D 86 IN ti MA 45 0- 0- 00 CA 96 EY ve N 04 20 20 0 RE 51 AN 26 16 17 MA D 0 PH CH MA AR AE NE MA L RA CY S LS LL TA C BL ET FE 00 09 03 0 30 30 ME 13 GA Ac RR 53 -1 -1 0. D 86 IN ti OU 61 9- 0- 00 CA 96 EY ve S 00 20 20 0 RE 49 CLARK 90 16 17 MA LF 1 PH CH AT AR AE E MA L 32 CY S 5 MG LL C TA BL ET LO 00 09 02 0 30 30 ME 13 GA Ac RA 78 -0 -2 0. D 77 IN ti TA 15 1- 1- 00 CA 64 EY ve DI 07 20 20 0 RE 76 NE 70 16 17 MA 1 PH CH 10 AR AE MA L MG CY S TA LL BL C ET 00 09 02 0 30 30 ME 13 GA Ac PI 53 -1 -1 0. D 74 IN ti RI 61 9- 4- 00 CA 04 EY ve N 00 20 20 0 RE 51 EC 44 16 17 MA 1 PH CH 81 AR AE MA L MG CY S TA LL BL C ET 00 07 02 0 30 30 ME 13 GA Ac TA 53 -2 -1 0. D 74 IN ti MA 63 5- 4- 00 CA 04 EY ve N 79 20 20 0 RE 52 D3 00 16 17 MA 1 PH CH 2, AR AE 00 MA L 0 CY S UN IT LL C SO FT GE L ST 00 02 02 0 30 30 ME 13 GA Ac OO 53 -2 -1 0. D 73 IN ti L 61 3- 3- 00 CA 36 EY ve SO 06 20 20 0 RE 84 FT 41 16 17 MA EN 0 PH CH ER AR AE MA L 25 CY S 0 MG LL C SO FT GE L 00 06 02 0 30 30 ME 13 GA Ac TA 90 -1 -1 0. D 72 IN ti MA 45 0- 0- 00 CA 74 EY ve N 04 20 20 0 RE 29 AN 26 16 17 MA D 0 PH CH MA AR AE NE MA L RA CY S LS LL TA C BL ET FE 00 09 02 0 30 30 ME 13 GA Ac RR 90 -1 -0 0. D 72 IN ti OU 47 9- 9- 00 CA 08 EY ve S 59 20 20 0 RE 92 CLARK 18 16 17 MA LF 0 PH CH AT AR AE E MA L 32 CY S 5 MG LL C TA BL ET SE 00 09 02 0 12 30 ME 13 GA Ac NN 90 -1 -0 00 D 71 IN ti A 46 9- 7- .0 CA 32 EY ve 8. 43 20 20 00 RE 82 6 48 16 17 MA MG 0 PH CH AR AE TA MA L BL CY S ET LL C BI 00 09 02 0 15 15 ME 13 GA Ac SC 90 -1 -0 0. D 70 IN ti OL 45 9- 6- 00 CA 96 EY ve AX 05 20 20 0 RE 91 81 16 17 MA 10 2 PH CH AR AE MG MA L CY S CLARK PP LL OS C IT OR Y LO 00 09 01 0 30 30 ME 13 GA Ac RA 78 -0 -2 0. D 63 IN ti TA 15 1- 3- 00 CA 50 EY ve DI 07 20 20 0 RE 87 NE 70 16 17 MA 1 PH CH 10 AR AE MA L MG CY S TA LL BL C ET 00 09 01 0 30 30 ME 13 GA Ac PI 53 -1 -1 0. D 59 IN ti RI 61 9- 6- 00 CA 87 EY ve N 00 20 20 0 RE 11 EC 44 16 17 MA 1 PH CH 81 AR AE MA L MG CY S TA LL BL C ET 00 07 01 0 30 30 ME 13 GA Ac TA 53 -2 -1 0. D 59 IN ti MA 63 5- 6- 00 CA 87 EY ve N 79 20 20 0 RE 12 D3 00 16 17 MA 1 PH CH 2, AR AE 00 MA L 0 CY S UN IT LL C SO FT GE L ST 00 02 01 0 30 30 ME 13 GA Ac OO 53 -2 -1 0. D 59 IN ti L 61 3- 4- 00 CA 46 EY ve SO 06 20 20 0 RE 94 FT 41 16 17 MA EN 0 PH CH ER AR AE MA L 25 CY S 0 MG LL C SO FT GE L 00 06 01 0 30 30 ME 13 GA Ac TA 90 -1 -1 0. D 59 IN ti MA 45 0- 3- 00 CA 03 EY ve N 04 20 20 0 RE 67 AN 26 16 17 MA D 0 PH CH MA AR AE NE MA L RA CY S LS LL TA C BL ET SE 00 09 01 0 12 30 ME 13 GA Ac NN 90 -1 -1 00 D 58 IN ti A- 46 9- 2- .0 CA 61 EY ve LA 52 20 20 00 RE 97 X 26 16 17 MA 8. 1 PH CH 6 AR AE MG MA L CY S TA BL LL ET C FE 00 09 01 0 30 30 ME 13 GA Ac RR 53 -1 -1 0. D 57 IN ti OU 61 9- 1- 00 CA 54 EY ve S 00 20 20 0 RE 83 CLARK 90 16 17 MA LF 1 PH CH AT AR AE E MA L 32 CY S 5 MG LL C TA BL ET 00 12 01 0 10 1 ME 13 GA Ac TA 90 -1 -1 .0 D 58 IN ti MA 40 5- 0- 00 CA 30 EY ve N 52 20 20 RE 23 C 38 16 17 MA 50 0 PH CH 0 AR AE MG MA L CY S TA BL LL ET C ZI 00 12 12 0 10 1 ME 13 GA Ac NC 90 -1 -3 .0 D 53 IN ti 43 7- 0- 00 CA 28 EY ve GL 19 20 20 RE 54 UC 16 16 16 MA ON 0 PH CH AT AR AE E MA L 50 CY S MG LL C TA BL ET LO 00 09 12 0 30 30 ME 13 GA Ac RA 78 -0 -2 0. D 50 IN ti TA 15 1- 6- 00 CA 21 EY ve DI 07 20 20 0 RE 30 NE 70 16 16 MA 1 PH CH 10 AR AE MA L MG CY S TA LL BL C ET 00 07 12 0 30 30 ME 13 GA Ac TA 53 -2 -1 0. D 45 IN ti MA 63 5- 7- 00 CA 89 EY ve N 79 20 20 0 RE 62 D3 00 16 16 MA 1 PH CH 2, AR AE 00 MA L 0 CY S UN IT LL C SO FT GE L 00 09 12 0 30 30 ME 13 GA Ac PI 53 -1 -1 0. D 45 IN ti RI 61 9- 7- 00 CA 89 EY ve N 00 20 20 0 RE 61 EC 44 16 16 MA 1 PH CH 81 AR AE MA L MG CY S TA LL BL C ET ZI 00 12 12 0 14 14 ME 13 GA Ac NC 90 -1 -1 0. D 46 IN ti 43 7- 7- 00 CA 89 EY ve GL 19 20 20 0 RE 55 UC 16 16 16 MA ON 0 PH CH AT AR AE E MA L 50 CY S MG LL C TA BL ET ST 00 02 12 0 30 30 ME 13 GA Ac OO 53 -2 -1 0. D 45 IN ti L 61 3- 6- 00 CA 28 EY ve SO 06 20 20 0 RE 42 FT 41 16 16 MA EN 0 PH CH ER AR AE MA L 25 CY S 0 MG LL C SO FT GE L 00 12 12 0 30 30 ME 13 GA Ac TA 90 -1 -1 0. D 45 IN ti MA 40 5- 5- 00 CA 69 EY ve N 52 20 20 0 RE 93 C 38 16 16 MA 50 0 PH CH 0 AR AE MG MA L CY S TA BL LL ET C SE 00 09 12 0 12 30 ME 13 GA Ac NN 90 -1 -1 00 D 46 IN ti A- 46 9- 5- .0 CA 00 EY ve LA 52 20 20 00 RE 68 X 26 16 16 MA 8. 1 PH CH 6 AR AE MG MA L CY S TA BL LL ET C 00 06 12 0 30 30 ME 13 GA Ac TA 90 -1 -1 0. D 44 IN ti MA 45 0- 4- 00 CA 20 EY ve N 04 20 20 0 RE 08 AN 26 16 16 MA D 0 PH CH MA AR AE NE MA L RA CY S LS LL TA C BL ET FE 00 09 12 0 30 30 ME 13 GA Ac RR 53 -1 -1 0. D 44 IN ti OU 61 9- 4- 00 CA 97 EY ve S 00 20 20 0 RE 74 CLARK 90 16 16 MA LF 1 PH CH AT AR AE E MA L 32 CY S 5 MG LL C TA BL ET LO 00 09 11 0 30 30 ME 13 GA Ac RA 78 -0 -2 0. D 35 IN ti TA 15 1- 8- 00 CA 75 EY ve DI 07 20 20 0 RE 27 NE 70 16 16 MA 1 PH CH 10 AR AE MA L MG CY S TA LL BL C ET BA 00 11 11 0 28 7 ME 13 GA Ac CI 16 -1 -2 3. D 36 IN ti TR 80 7- 6- 50 CA 23 EY ve AC 02 20 20 0 RE 22 IN 13 16 16 MA -P 1 PH CH OL AR AE YM MA L YX CY S IN LL OI C NT ME NT SE 00 09 11 0 12 30 ME 13 GA Ac NN 90 -1 -2 00 D 32 IN ti A- 46 9- 1- .0 CA 02 EY ve LA 52 20 20 00 RE 30 X 26 16 16 MA 8. 1 PH CH 6 AR AE MG MA L CY S TA BL LL ET C FE 00 09 11 0 30 30 ME 13 GA Ac RR 53 -1 -1 0. D 30 IN ti OU 61 9- 8- 00 CA 83 EY ve S 00 20 20 0 RE 46 CLARK 90 16 16 MA LF 1 PH CH AT AR AE E MA L 32 CY S 5 MG LL C TA BL ET 00 07 11 0 30 30 ME 13 GA Ac TA 53 -2 -1 0. D 30 IN ti MA 63 5- 8- 00 CA 83 EY ve N 79 20 20 0 RE 49 D3 00 16 16 MA 1 PH CH 2, AR AE 00 MA L 0 CY S UN IT LL C SO FT GE L 00 09 11 0 30 30 ME 13 GA Ac PI 53 -1 -1 0. D 30 IN ti RI 61 9- 8- 00 CA 83 EY ve N 00 20 20 0 RE 45 EC 44 16 16 MA 1 PH CH 81 AR AE MA L MG CY S TA LL BL C ET ST 00 02 11 0 30 30 ME 13 GA Ac OO 53 -2 -1 0. D 29 IN ti L 61 3- 7- 00 CA 93 EY ve SO 06 20 20 0 RE 73 FT 41 16 16 MA EN 0 PH CH ER AR AE MA L 25 CY S 0 MG LL C SO FT GE L BA 00 11 11 0 28 14 ME 13 GA Ac CI 16 -1 -1 3. D 31 IN ti TR 80 7- 7- 50 CA 32 EY ve AC 02 20 20 0 RE 58 IN 13 16 16 MA -P 1 PH CH OL AR AE YM MA L YX CY S IN LL OI C NT ME NT 00 06 11 0 30 30 ME 13 GA Ac TA 90 -1 -1 0. D 27 IN ti MA 45 0- 4- 00 CA 96 EY ve N 04 20 20 0 RE 19 AN 26 16 16 MA D 0 PH CH MA AR AE NE MA L RA CY S LS LL TA C BL ET LO 00 09 10 0 30 30 ME 13 GA Ac RA 78 -0 -2 0. D 19 IN ti TA 15 1- 8- 00 CA 67 EY ve DI 07 20 20 0 RE 75 NE 70 16 16 MA 1 PH CH 10 AR AE MA L MG CY S TA LL BL C ET SE 00 09 10 0 12 30 ME 13 GA Ac NN 90 -1 -2 00 D 16 IN ti A- 46 9- 2- .0 CA 73 EY ve LA 52 20 20 00 RE 99 X 26 16 16 MA 8. 1 PH CH 6 AR AE MG MA L CY S TA BL LL ET C 00 07 10 0 30 30 ME 13 GA Ac TA 53 -2 -2 0. D 16 IN ti MA 63 5- 1- 00 CA 09 EY ve N 79 20 20 0 RE 46 D3 00 16 16 MA 1 PH CH 2, AR AE 00 MA L 0 CY S UN IT LL C SO FT GE L 00 09 10 0 30 30 ME 13 GA Ac PI 53 -1 -2 0. D 15 IN ti RI 61 9- 0- 00 CA 55 EY ve N 00 20 20 0 RE 55 EC 44 16 16 MA 1 PH CH 81 AR AE MA L MG CY S TA LL BL C ET FE 00 09 10 0 30 30 ME 13 GA Ac RR 53 -1 -2 0. D 15 IN ti OU 61 9- 0- 00 CA 55 EY ve S 00 20 20 0 RE 56 CLARK 90 16 16 MA LF 1 PH CH AT AR AE E MA L 32 CY S 5 MG LL C TA BL ET ST 00 02 10 0 30 30 ME 13 GA Ac OO 53 -2 -1 0. D 14 IN ti L 61 3- 9- 00 CA 82 EY ve SO 06 20 20 0 RE 28 FT 41 16 16 MA EN 0 PH CH ER AR AE MA L 25 CY S 0 MG LL C SO FT GE L 00 11 10 0 30 30 ME 13 GA Ac TA 90 -0 -1 0. D 13 IN ti MA 45 5- 5- 00 CA 15 EY ve N 04 20 20 0 RE 57 AN 26 15 16 MA D 0 PH CH MA AR AE NE MA L RA CY S LS LL TA C BL ET LO 00 09 09 0 30 30 ME 13 GA Ac RA 78 -0 -2 0. D 03 IN ti TA 15 1- 9- 00 CA 49 EY ve DI 07 20 20 0 RE 14 NE 70 16 16 MA 1 PH CH 10 AR AE MA L MG CY S TA LL BL C ET SE 00 09 09 0 12 30 ME 13 GA Ac NN 90 -1 -2 00 D 00 IN ti A- 46 9- 3- .0 CA 42 EY ve LA 52 20 20 00 RE 47 X 26 16 16 MA 8. 1 PH CH 6 AR AE MG MA L CY S TA BL LL ET C 00 09 09 0 30 30 ME 13 GA Ac PI 53 -1 -2 0. D 00 IN ti RI 61 9- 2- 00 CA 79 EY ve N 00 20 20 0 RE 87 EC 44 16 16 MA 1 PH CH 81 AR AE MA L MG CY S TA LL BL C ET FE 00 09 09 0 30 30 ME 13 GA Ac RR 53 -1 -2 0. D 00 IN ti OU 61 9- 2- 00 CA 79 EY ve S 00 20 20 0 RE 89 CLARK 90 16 16 MA LF 1 PH CH AT AR AE E MA L 32 CY S 5 MG LL C TA BL ET 00 07 09 0 30 30 ME 12 GA Ac TA 53 -2 -2 0. D 99 IN ti MA 63 5- 1- 00 CA 05 EY ve N 79 20 20 0 RE 58 D3 00 16 16 MA 1 PH CH 2, AR AE 00 MA L 0 CY S UN IT LL C SO FT GE L ST 00 02 09 0 30 30 ME 12 GA Ac OO 53 -2 -1 0. D 97 IN ti L 61 3- 9- 00 CA 85 EY ve SO 06 20 20 0 RE 93 FT 41 16 16 MA EN 0 PH CH ER AR AE MA L 25 CY S 0 MG LL C SO FT GE L 00 11 09 0 30 30 ME 12 GA Ac TA 90 -0 -1 0. D 96 IN ti MA 45 5- 6- 00 CA 80 EY ve N 04 20 20 0 RE 50 AN 26 15 16 MA D 0 PH CH MA AR AE NE MA L RA CY S LS LL TA C BL ET LO 00 09 09 0 30 30 ME 12 GA Ac RA 78 -0 -0 0. D 90 IN ti TA 15 1- 1- 00 CA 04 EY ve DI 07 20 20 0 RE 71 NE 70 16 16 MA 1 PH CH 10 AR AE MA L MG CY S TA LL BL C ET SE 00 10 08 0 12 30 ME 12 GA Ac NN 90 -2 -2 00 D 84 IN ti A- 46 9- 5- .0 CA 88 EY ve LA 52 20 20 00 RE 51 X 26 15 16 MA 8. 1 PH CH 6 AR AE MG MA L CY S TA BL LL ET C ST 00 02 08 0 30 30 ME 12 GA Ac OO 53 -2 -2 0. D 83 IN ti L 61 3- 2- 00 CA 20 EY ve SO 06 20 20 0 RE 28 FT 41 16 16 MA EN 0 PH CH ER AR AE MA L 25 CY S 0 MG LL C SO FT GE L 00 07 08 0 30 30 ME 12 GA Ac TA 53 -2 -2 0. D 82 IN ti MA 63 5- 2- 00 CA 65 EY ve N 79 20 20 0 RE 09 D3 00 16 16 MA 1 PH CH 2, AR AE 00 MA L 0 CY S UN IT LL C SO FT GE L FE 00 10 08 0 30 30 ME 12 GA Ac RR 53 -1 -2 0. D 81 IN ti OU 61 0- 0- 00 CA 18 EY ve S 00 20 20 0 RE 40 CLARK 90 15 16 MA LF 1 PH CH AT AR AE E MA L 32 CY S 5 MG LL C TA BL ET 00 11 08 0 30 30 ME 12 GA Ac TA 90 -0 -1 0. D 79 IN ti MA 45 5- 7- 00 CA 28 EY ve N 04 20 20 0 RE 11 AN 26 15 16 MA D 0 PH CH MA AR AE NE MA L RA CY S LS LL TA C BL ET 00 10 08 0 30 30 ME 12 GA Ac PI 60 -0 -1 0. D 77 IN ti RI 30 9- 5- 00 CA 97 EY ve N 02 20 20 0 RE 73 EC 63 15 16 MA 2 PH CH 81 AR AE MA L MG CY S TA LL BL C ET MA 00 10 08 0 11 14 ME 12 GA Ac PA 90 -1 -0 20 D 74 IN ti P 41 0- 5- .0 CA 68 EY ve 50 98 20 20 00 RE 78 0 86 15 16 MA MG 1 PH CH AR AE TA MA L BL CY S ET LL C 00 07 07 0 30 30 ME 12 GA Ac TA 90 -2 -2 0. D 70 IN ti MA 40 8- 8- 00 CA 32 EY ve N 52 20 20 0 RE 12 C 38 16 16 MA 50 0 PH CH 0 AR AE MG MA L CY S TA BL LL ET C SE 00 10 07 0 12 30 ME 12 GA Ac NN 90 -2 -2 00 D 68 IN ti A- 46 9- 6- .0 CA 52 EY ve LA 52 20 20 00 RE 91 X 26 15 16 MA 8. 1 PH CH 6 AR AE MG MA L CY S TA BL LL ET C 00 07 07 0 30 30 ME 12 GA Ac TA 53 -2 -2 0. D 69 IN ti MA 63 5- 5- 00 CA 13 EY ve N 79 20 20 0 RE 18 D3 00 16 16 MA 1 PH CH 2, AR AE 00 MA L 0 CY S UN IT LL C SO FT GE L FE 00 10 07 0 30 30 ME 12 GA Ac RO 90 -1 -2 0. D 67 IN ti CLARK 47 0- 2- 00 CA 26 EY ve L 59 20 20 0 RE 65 32 08 15 16 MA 5 2 PH CH MG AR AE MA L TA CY S BL ET LL C BI 00 03 07 0 15 15 ME 12 GA Ac SC 90 -1 -1 0. D 66 IN ti OL 45 0- 8- 00 CA 34 EY ve AX 05 20 20 0 RE 86 86 16 16 MA 10 0 PH CH AR AE MG MA L CY S CLARK PP LL OS C IT OR Y 00 11 07 0 30 30 ME 12 GA Ac TA 90 -0 -1 0. D 65 IN ti MA 45 5- 8- 00 CA 97 EY ve N 04 20 20 0 RE 60 AN 26 15 16 MA D 0 PH CH MA AR AE NE MA L RA CY S LS LL TA C BL ET 00 10 07 0 30 30 ME 12 GA Ac PI 60 -0 -1 0. D 65 IN ti RI 30 9- 6- 00 CA 73 EY ve N 02 20 20 0 RE 27 EC 63 15 16 MA 2 PH CH 81 AR AE MA L MG CY S TA LL BL C ET ST 00 02 07 0 30 30 ME 12 GA Ac OO 53 -2 -1 0. D 63 IN ti L 61 3- 1- 00 CA 34 EY ve SO 06 20 20 0 RE 73 FT 41 16 16 MA EN 0 PH CH ER AR AE MA L 25 CY S 0 MG LL C SO FT GE L SE 00 10 06 0 12 30 ME 12 GA Ac NN 90 -2 -2 00 D 58 IN ti A- 46 9- 7- .0 CA 07 EY ve LA 52 20 20 00 RE 66 X 26 15 16 MA 8. 1 PH CH 6 AR AE MG MA L CY S TA BL LL ET C FE 00 10 06 0 30 30 ME 12 GA Ac RO 90 -1 -2 0. D 56 IN ti CLARK 47 0- 2- 00 CA 63 EY ve L 59 20 20 0 RE 47 32 08 15 16 MA 5 2 PH CH MG AR AE MA L TA CY S BL ET LL C 00 11 06 0 30 30 ME 12 GA Ac TA 90 -0 -1 0. D 55 IN ti MA 45 5- 8- 00 CA 21 EY ve N 04 20 20 0 RE 00 AN 26 15 16 MA D 0 PH CH MA AR AE NE MA L RA CY S LS LL TA C BL ET 00 10 06 0 30 30 ME 12 GA Ac PI 60 -0 -1 0. D 54 IN ti RI 30 9- 7- 00 CA 90 EY ve N 02 20 20 0 RE 56 EC 63 15 16 MA 2 PH CH 81 AR AE MA L MG CY S TA LL BL C ET BI 00 03 06 0 15 15 ME 12 GA Ac SC 90 -1 -1 0. D 55 IN ti OL 45 0- 7- 00 CA 42 EY ve AX 05 20 20 0 RE 04 86 16 16 MA 10 0 PH CH AR AE MG MA L CY S CLARK PP LL OS C IT OR Y ST 00 02 06 0 30 30 ME 12 GA Ac OO 53 -2 -1 0. D 53 IN ti L 61 3- 3- 00 CA 62 EY ve SO 06 20 20 0 RE 57 FT 41 16 16 MA EN 0 PH CH ER AR AE MA L 25 CY S 0 MG LL C SO FT GE L SE 00 10 05 0 12 30 ME 12 GA Ac NN 90 -2 -2 00 D 48 IN ti A 45 9- 8- .0 CA 35 EY ve 8. 16 20 20 00 RE 71 6 56 15 16 MA MG 1 PH CH AR AE TA MA L BL CY S ET LL C FE 00 10 05 0 30 30 ME 12 GA Ac RO 90 -1 -2 0. D 45 IN ti CLARK 47 0- 3- 00 CA 78 EY ve L 59 20 20 0 RE 37 32 08 15 16 MA 5 2 PH CH MG AR AE MA L TA CY S BL ET LL C BI 00 03 05 0 15 15 ME 12 GA Ac SC 90 -1 -2 0. D 46 IN ti OL 45 0- 1- 00 CA 12 EY ve AX 05 20 20 0 RE 33 86 16 16 MA 10 0 PH CH AR AE MG MA L CY S CLARK PP LL OS C IT OR Y 00 11 05 0 30 30 ME 12 GA Ac TA 90 -0 -2 0. D 45 IN ti MA 45 5- 0- 00 CA 09 EY ve N 04 20 20 0 RE 35 AN 26 15 16 MA D 0 PH CH MA AR AE NE MA L RA CY S LS LL TA C BL ET 00 10 05 0 30 30 ME 12 GA Ac PI 60 -0 -1 0. D 44 IN ti RI 30 9- 8- 00 CA 30 EY ve N 02 20 20 0 RE 82 EC 63 15 16 MA 2 PH CH 81 AR AE MA L MG CY S TA LL BL C ET TR 45 05 05 0 85 15 ME 12 GA Ac OL 80 -1 -1 0. D 44 IN ti AM 20 7- 7- 00 CA 21 EY ve IN 35 20 20 0 RE 63 E 65 16 16 MA SA 3 PH CH LI AR AE CY MA L LA CY S TE LL 10 C % CR EA M ST 00 02 05 0 30 30 ME 12 GA Ac OO 53 -2 -1 0. D 42 IN ti L 61 3- 3- 00 CA 78 EY ve SO 06 20 20 0 RE 12 FT 41 16 16 MA EN 0 PH CH ER AR AE MA L 25 CY S 0 MG LL C SO FT GE L SE 00 10 04 0 12 30 ME 12 GA Ac NN 90 -2 -2 00 D 38 IN ti A 45 9- 9- .0 CA 00 EY ve 8. 16 20 20 00 RE 41 6 56 15 16 MA MG 1 PH CH AR AE TA MA L BL CY S ET LL C FE 00 10 04 0 30 30 ME 12 GA Ac RO 90 -1 -2 0. D 36 IN ti CLARK 47 0- 5- 00 CA 33 EY ve L 59 20 20 0 RE 19 32 08 15 16 MA 5 2 PH CH MG AR AE MA L TA CY S BL ET LL C 00 11 04 0 30 30 ME 12 GA Ac TA 90 -0 -2 0. D 34 IN ti MA 45 5- 1- 00 CA 77 EY ve N 04 20 20 0 RE 79 AN 26 15 16 MA D 0 PH CH MA AR AE NE MA L RA CY S LS LL TA C BL ET 00 10 04 0 30 30 ME 12 GA Ac PI 60 -0 -1 0. D 33 IN ti RI 30 9- 8- 00 CA 77 EY ve N 02 20 20 0 RE 74 EC 63 15 16 MA 2 PH CH 81 AR AE MA L MG CY S TA LL BL C ET ST 00 02 04 0 30 30 ME 12 GA Ac OO 53 -2 -1 0. D 33 IN ti L 61 3- 5- 00 CA 32 EY ve SO 06 20 20 0 RE 30 FT 41 16 16 MA EN 0 PH CH ER AR AE MA L 25 CY S 0 MG LL C SO FT GE L SE 00 10 03 0 12 30 ME 12 GA Ac NN 90 -2 -3 00 D 27 IN ti A 45 9- 0- .0 CA 50 EY ve 8. 16 20 20 00 RE 78 6 56 15 16 MA MG 1 PH CH AR AE TA MA L BL CY S ET LL C FE 00 10 03 0 30 30 ME 12 GA Ac RO 90 -1 -2 0. D 27 IN ti CLARK 47 0- 9- 00 CA 31 EY ve L 59 20 20 0 RE 11 32 08 15 16 MA 5 2 PH CH MG AR AE MA L TA CY S BL ET LL C 00 11 03 0 30 30 ME 12 GA Ac TA 90 -0 -2 0. D 26 IN ti MA 45 5- 4- 00 CA 13 EY ve N 04 20 20 0 RE 04 AN 26 15 16 MA D 0 PH CH MA AR AE NE MA L RA CY S LS LL TA C BL ET ST 00 02 03 0 30 30 ME 12 GA Ac OO 53 -2 -2 0. D 24 IN ti L 61 3- 2- 00 CA 91 EY ve SO 06 20 20 0 RE 08 FT 41 16 16 MA EN 0 PH CH ER AR AE MA L 25 CY S 0 MG LL C SO FT GE L 00 10 03 0 30 30 ME 12 GA Ac PI 60 -0 -2 0. D 25 IN ti RI 30 9- 1- 00 CA 14 EY ve N 02 20 20 0 RE 48 EC 63 15 16 MA 2 PH CH 81 AR AE MA L MG CY S TA LL BL C ET BI 00 03 03 0 15 15 ME 12 GA Ac SC 90 -1 -1 0. D 21 IN ti OL 45 0- 0- 00 CA 54 EY ve AX 05 20 20 0 RE 70 86 16 16 MA 10 0 PH CH AR AE MG MA L CY S CLARK PP LL OS C IT OR Y SE 00 10 02 0 12 30 ME 12 GA Ac NN 90 -2 -2 00 D 17 IN ti A 45 9- 9- .0 CA 54 EY ve 8. 16 20 20 00 RE 30 6 56 15 16 MA MG 1 PH CH AR AE TA MA L BL CY S ET LL C FE 00 10 02 0 30 30 ME 12 GA Ac RO 90 -1 -2 0. D 17 IN ti CLARK 47 0- 9- 00 CA 54 EY ve L 59 20 20 0 RE 28 32 08 15 16 MA 5 2 PH CH MG AR AE MA L TA CY S BL ET LL C 00 10 02 0 30 30 ME 12 GA Ac PI 60 -0 -2 0. D 16 IN ti RI 30 9- 6- 00 CA 76 EY ve N 02 20 20 0 RE 41 EC 63 15 16 MA 2 PH CH 81 AR AE MA L MG CY S TA LL BL C ET 00 11 02 0 30 30 ME 12 GA Ac TA 90 -0 -2 0. D 16 IN ti MA 45 5- 6- 00 CA 76 EY ve N 04 20 20 0 RE 44 AN 26 15 16 MA D 0 PH CH MA AR AE NE MA L RA CY S LS LL TA C BL ET ST 00 02 02 0 30 30 ME 12 GA Ac OO 53 -2 -2 0. D 16 IN ti L 61 3- 3- 00 CA 16 EY ve SO 06 20 20 0 RE 99 FT 41 16 16 MA EN 0 PH CH ER AR AE MA L 25 CY S 0 MG LL C SO FT GE L NO 64 02 02 0 30 5 ME 12 GA Ac RM 25 -1 -1 00 D 14 IN ti AL 30 9- 9- .0 CA 72 EY ve 11 20 20 00 RE 74 SA 13 16 16 MA LI 0 PH CH NE AR AE MA L FL CY S US H LL SY C RI NG E HE 64 02 02 0 10 5 ME 12 GA Ac PA 25 -1 -1 00 D 14 IN ti RI 30 9- 9- .0 CA 72 EY ve N 33 20 20 00 RE 75 50 33 16 16 MA 0 5 PH CH UN AR AE IT MA L /5 CY S ML LL C (1 00 /M L) NI 00 10 10 0 30 1 ME 11 GA Ac TR 28 -0 -0 0. D 70 IN ti O- 10 2- 2- 00 CA 90 EY ve BI 32 20 20 0 RE 44 D 63 15 15 MA 2% 0 PH CH AR AE OI MA L NT CY S ME NT LL C MO 00 10 10 0 30 15 ME 11 GA Ac RP 40 -0 -0 0. D 70 IN ti HI 68 1- 1- 00 CA 82 EY ve NE 31 20 20 0 RE 36 50 15 15 MA CLARK 1 PH CH LF AR AE MA L ER CY S 15 LL C MG TA BL ET NO 00 10 10 0 10 15 ME 11 GA Ac VO 16 -0 -0 00 D 70 IN ti FI 91 1- 1- .0 CA 82 EY ve NE 85 20 20 00 RE 35 27 15 15 MA AU 5 PH CH TO AR AE CO MA L VE CY S R 30 LL G C NE ED LE MA 00 09 09 0 19 3 ME 11 GA Ac PA 90 -1 -2 0. D 69 IN ti P 41 1- 8- 00 CA 64 EY ve 50 98 20 20 0 RE 31 0 86 15 15 MA MG 1 PH CH AR AE TA MA L BL CY S ET LL C FE 00 09 09 0 30 30 ME 11 GA Ac RR 60 -1 -1 0. D 66 IN ti OU 30 7- 7- 00 CA 15 EY ve S 17 20 20 0 RE 57 CLARK 92 15 15 MA LF 9 PH CH AT AR AE E MA L 32 CY S 5 MG LL C TA BL ET 00 09 09 0 13 13 ME 11 GA Ac TA 90 -1 -1 0. D 66 IN ti MA 45 7- 7- 00 CA 15 EY ve N 04 20 20 0 RE 56 AN 26 15 15 MA D 0 PH CH MA AR AE NE MA L RA CY S LS LL TA C BL ET 63 09 09 0 20 20 ME 11 GA Ac PI 73 -1 -1 0. D 64 IN ti RI 90 1- 1- 00 CA 99 EY ve N 43 20 20 0 RE 10 81 40 15 15 MA 1 PH CH MG AR AE MA L CH CY S EW AB LL LE C TA BL ET CA 68 03 09 0 18 90 WA 73 SM Ac RV 46 -1 -0 00 L- 69 IT ti ED 20 0- 3- .0 MA 55 H ve IL 16 20 20 00 RT 9 MA OL 50 15 15 KE 5 PH [...] -0 -0 0. L- 67 RS ti MA 96 4- 3- 00 MA 45 ON [...] 15 15 EU E 5 PH GO MD AR ND OP MA A CY F 50 # MC 10 G 05 SP 91 RA Y CL 16 03 08 7 30 30 KM 68 SM Ac OP 72 -1 -1 0. AR 59 IT ti ID 90 0- 2- 00 T 40 H ve OG 21 20 20 0 PH 5 MA RE 81 15 15 AR KE L 5 MA L 75 CY D # MG 48 TA 47 BL ET LE 00 12 08 11 15 30 KM 68 PA Ac VE 16 -0 -0 0. AR 56 RS ti MA 96 4- 5- 00 T 02 ON [...] ST 95 20 20 0 PH 7 MA AT 37 15 15 AR KE IN 7 MA L CY D 80 # MG 48 47 TA BL ET FU 00 10 08 11 60 30 KM 68 PA Ac RO 37 -0 -0 0. AR 54 RS ti SE 80 6- 4- 00 T 23 ON ve MA 21 20 20 0 PH 7 S DE 61 14 15 AR JE 0 MA RE 40 CY MY # C MG 48 TA 47 BL ET MD 59 04 07 11 85 17 KM [...] 6- 8- 00 T 23 ON ve MA 21 20 20 0 PH 7 S DE 61 14 15 AR JE 0 MA RE 40 CY MY # C MG 48 TA 47 BL ET AT 00 04 07 4 30 30 KM 68 SM Ac OR 37 -0 -0 0. AR 59 IT ti VA 83 7- 8- 00 [address] 95 20 20 0 PH 7 MA AT 37 15 15 AR KE IN 7 MA L CY D 80 # MG 48 47 TA BL ET CL 16 03 07 7 30 30 KM 68 SM Ac OP 72 -1 -0 0. AR 59 IT ti ID 90 0- 8- 00 T 40 H ve OG 21 20 20 0 PH 5 MA RE 81 15 15 AR KE L 5 MA L 75 CY D # MG 48 TA 47 BL ET LE 00 12 06 11 15 30 KM 68 PA Ac VE 16 -0 -2 0. AR 56 RS ti MA 96 4- 9- 00 T 02 ON [...] 6- 3- 00 T 23 ON ve MA 21 20 20 0 PH 7 S DE 61 14 15 AR JE 0 MA RE 40 CY MY # C MG 48 TA 47 BL ET CL 16 03 06 7 30 30 KM 68 SM Ac OP 72 -1 -0 0. AR 59 IT ti ID 90 0- 3- 00 T 40 H ve OG 21 20 20 0 PH 5 MA RE 81 15 15 AR KE L 5 MA L 75 CY D # MG 48 TA 47 BL ET AT 00 04 06 4 30 30 KM 68 SM Ac OR 37 -0 -0 0. AR 59 IT ti VA 83 7- 3- 00 [address] 95 20 20 0 PH 7 MA AT 37 15 15 AR KE IN [...] RE CE CY MY TA # C MA NO 48 PH 47 N 10 -3 [...] 6- 4- 00 T 23 ON ve MA 21 20 20 0 PH 7 S DE 61 14 15 AR JE 0 MA RE 40 CY MY # C MG 48 TA 47 BL ET AT 00 04 05 4 30 30 KM 68 SM Ac OR 37 -0 -0 0. AR 59 IT ti VA 83 7- 4- 00 [address] 95 20 20 0 PH 7 MA AT 37 15 15 AR KE IN 7 MA L CY D 80 # MG 48 47 TA BL ET CL 16 03 05 7 30 30 KM 68 SM Ac OP 72 -1 -0 0. AR 59 IT ti ID 90 0- 4- 00 T 40 H ve OG 21 20 20 0 PH 5 MA RE 81 15 15 AR KE L 5 MA L 75 CY D # MG 48 TA 47 BL ET RO 43 03 05 1 60 30 KM 68 SM Ac PI 54 -1 -0 0. AR 59 IT ti NI 70 0- 4- 00 T 40 H ve RO 27 20 20 0 PH 6 MA LE 11 15 15 AR KE 0 [...] C CA PS 48 UL 47 E MD 59 04 04 11 85 17 KM [...] PH 1 1 01 15 15 AR MA 4 MA CH GM CY AE /1 [...] OG 21 20 20 0 PH 5 MA RE 81 15 15 AR KE L 5 MA L 75 CY D # MG 48 TA 47 BL ET RO 43 03 04 1 60 30 KM 68 SM Ac PI 54 -1 -0 0. AR 59 IT ti NI 70 0- 7- 00 T 40 H ve RO 27 20 20 0 PH 6 MA LE 11 15 15 AR KE 0 MA L HC CY D L # 2 MG 48 47 TA BL ET AT 00 04 04 4 30 30 KM 68 SM Ac OR 37 -0 -0 0. AR 59 IT ti VA 83 7- 7- 00 [address] 95 20 20 0 PH 7 MA AT 37 15 15 AR KE IN [...] G 33 20 20 0 [place] 71 MA 10 91 15 15 7 KE 0 0 CL L UN IN D IT IC S/ ML PH AR FL MA EX CY PE N AT 60 03 03 1 30 30 KE 52 SM Ac OR 50 -1 -1 0. NT 60 IT ti VA 52 0- 0- 00 UC [address] 67 20 20 0 [place] 72 MA AT 10 15 15 0 KE IN 9 CL L IN D 80 IC MG PH AR TA MA BL CY ET CA 68 03 03 1 18 90 KE 52 SM Ac RV 38 -1 -1 00 NT 60 IT ti ED 20 0- 0- .0 UC 92 H ve IL 09 20 20 00 [place] 72 MA OL 50 15 15 2 KE 5 CL L 25 IN D IC MG PH TA AR BL MA ET CY LY 00 03 03 0 90 30 KE 52 SM Ac RI 07 -1 -1 0. NT 40 IT ti CA 11 0- 0- 00 UC 01 H ve 01 20 20 0 [place] 38 MA 50 36 15 15 2 KE 8 CL L MG IN D IC CA PS PH UL AR E MA CY LI 00 03 03 1 90 90 KE 52 SM Ac SI 17 -1 -1 0. NT 60 IT ti NO 23 0- 0- 00 UC 92 H ve MD 75 20 20 0 [place] 71 MA IL 98 15 15 6 KE 0 CL L 10 IN D IC MG PH TA AR BL MA ET CY LE 00 03 03 1 15 83 KE 52 SM Ac VE 16 -1 -1 0. NT 60 IT ti MA 96 0- 0- 00 UC 92 H ve R 43 20 20 0 [place] 71 MA FL 81 15 15 8 KE EX 0 CL L TO IN D UC IC H 10 PH 0 AR UN MA IT CY S/ ML AM 00 03 03 0 40 8 KE 52 SM Ac IT 60 -1 -1 .0 NT 60 IT ti RI 32 0- 0- 00 UC 92 H ve PT 21 20 20 [place] 71 MA YL 32 15 15 3 KE IN 1 CL L E IN D HC IC L 25 PH AR MG MA CY TA B RO 23 03 03 0 60 30 KE 52 SM Ac PI 15 -1 -1 0. NT 60 IT ti NI 50 0- 0- 00 UC 92 H ve RO 12 20 20 0 [place] 71 MA LE 40 15 15 2 KE 1 CL L HC IN D L IC 2 MG PH AR TA MA BL CY ET ON 53 03 03 1 10 25 KE 52 SM Ac ET 88 -1 -1 00 NT 60 IT ti OU 50 0- 0- .0 UC 92 H ve CH 24 20 20 00 [place] 73 MA 51 15 15 0 KE UL 0 CL L TR IN D A IC TE ST PH AR ST MA RI CY PS ON 53 03 03 1 10 30 KE 52 SM Ac ET 88 -1 -1 00 NT 60 IT ti OU 50 0- 0- .0 UC 92 H ve CH 14 20 20 00 [place] 72 MA 30 15 15 9 KE DE 1 CL L LI IN D CA IC 33 PH G AR LA MA NC CY ET S CL 55 03 03 2 30 30 KE 52 SM Ac OP 11 -1 -1 0. NT 60 IT ti ID 10 0- 0- 00 UC 92 H ve OG 19 20 20 0 [place] 71 MA RE 69 15 15 9 KE L 0 CL L 75 IN D IC MG PH TA AR BL MA ET CY ON 53 03 03 0 10 30 KE 52 SM Ac ET 88 -1 -1 .0 NT 60 IT ti OU 50 0- 0- 00 UC 92 H ve CH 44 20 20 [place] 72 MA 80 15 15 1 KE UL 1 CL L TR IN D A2 IC GL PH UC AR OS MA E CY SY ST 00 03 03 1 90 90 KE 52 SM Ac PI 60 -1 -1 0. NT 60 IT ti RI 30 0- 0- 00 UC 92 H ve N 02 20 20 0 [place] 71 MA EC 62 15 15 4 KE 2 CL L 81 IN D IC MG PH TA AR BL MA ET CY FU 00 10 03 11 60 30 KM 68 PA Ac RO 37 -0 -0 0. AR 54 RS ti SE 80 6- 7- 00 T 23 ON ve MA 21 20 20 0 PH 7 S [...] 69 20 20 0 PH 7 S MA 61 14 15 AR KE X 9 [...] 80 6- 8- T 23 ON ve MA 21 20 20 0 PH 7 S [...] 11 60 30 KM 68 PA Ac MD 18 -0 -2 0. AR 53 RS [...] 6- 7- 00 T 23 ON ve MA 21 20 20 0 PH 7 S [...] 11 60 30 KM 68 PA Ac MD 18 -0 -1 0. AR 53 RS [...] 11 60 30 KM 68 PA Ac MD 18 -0 -1 0. AR 53 RS [...] 6- 1- 00 T 23 ON ve MA 29 20 20 0 PH 7 S [...] 11 60 30 KM 68 PA Ac MD 18 -0 -0 0. AR 53 RS [...] 6- 6- 00 T 23 ON ve MA 29 20 20 0 PH 7 S [...] 5- 7- 00 T 24 ES ve MA 29 20 20 0 PH 4 S [...] 11 60 30 KM 68 PA Ac MD 18 -0 -0 0. AR 53 RS [...] 5- 1- 00 T 24 ES ve MA 21 20 20 0 PH 4 S [...] TE ST [address] RI PS MD 59 06 07 11 85 25 KM [...] -1 -1 0. AR 48 LL ti MD 80 9- 5- 00 T 97 ve [...] 69 20 20 0 PH 7 S MA 61 14 14 AR KE X 9 [...] 5- 0- 00 T 24 ES ve MA 21 20 20 0 PH 4 S [...] 4 MG 48 47 TA BL ET MD 59 06 06 11 85 25 KM [...] -1 -0 0. AR 48 LL ti MD 80 9- 9- 00 T 97 ve [...] 69 20 20 0 PH 7 S MA 61 14 14 AR KE X 9 [...] 5- 1- 00 T 24 ES ve MA 21 20 20 0 PH 4 S [...] 69 20 20 0 PH 7 S MA 61 14 14 AR KE X 9 MA LL 70 CY Y -3 # 0 FL 48 EX 47 PE N SY RN ME 00 09 05 6 60 30 KM 68 CASTELAN Ac TO 37 -1 -0 0. AR 48 LL ti MD 80 9- 5- 00 T 97 ve [...] 5- 2- 00 T 24 ES ve MA 21 20 20 0 PH 4 S [...] 5 IN RA CE IC J TA MA PH NO AR PH MA N CY [...] -1 -2 0. AR 48 LL ti MD 80 9- 7- 00 T 97 ve [...] 5 IN RA CE IC J TA MA PH NO AR PH MA N CY [...] 5- 5- 00 T 24 ES ve MA 21 20 20 0 PH 4 S [...] IN RE CE IC MY TA C MA PH NO AR PH MA N CY [...] 69 20 20 0 PH 2 S MA 61 13 14 AR JE X 9 [...] 80 5 9 T 93 ON ve MA 21 20 20 0 PH 2 S DE 61 13 14 AR JE 0 MA RE 40 CY MY # C MG 48 TA 47 BL ET ME 00 09 01 11 60 30 KM 68 PA Ac TO 37 -1 -2 0. AR 43 RS ti MD 80 9- 9- T 88 ON ve [...] IN RE CE IC MY TA C MA PH NO AR PH MA N CY [...] 5- 9- 00 T 93 ON ve MA 21 20 20 0 [...] -1 -1 0. AR 43 RS ti MD 80 9- 9- 00 T 88 ON [...] 69 20 20 0 PH 2 S MA 61 13 13 AR JE X 9 [...] 7- 0- 00 T 23 ON ve MA 21 20 20 0 PH 8 S DE 61 13 13 AR JE 0 MA RE 40 CY MY # C MG 48 TA 47 BL ET ME 00 09 11 11 60 30 KM 68 PA Ac TO 37 -1 -2 0. AR 43 RS ti MD 80 9- 0- 00 T 88 ON [...] 69 20 20 0 PH 2 S MA 61 13 13 AR JE X 9 [...] 7- 3- 00 T 23 ON ve MA 21 20 20 0 PH 8 S DE 61 13 13 AR JE 0 MA RE 40 CY MY # C MG 48 TA 47 BL ET ME 00 09 10 11 60 30 KM 68 PA Ac TO 37 -1 -2 0. AR 43 RS ti MD 80 9- 3- 00 T 88 ON [...] -1 -1 0. AR 43 RS ti MD 80 9- 9 T 88 ON ve [...] 80 7- 8- T 23 ON ve MA 21 20 20 0 PH 8 S [...] 7- 6- 00 T 23 ON ve MA 21 20 20 0 PH 8 S [...] 7- 8- 00 T 23 ON ve MA 21 20 20 0 PH 8 S [...] 7- 7- 00 T 23 ON ve MA 21 20 20 0 PH 8 S [...] # 50 71 74 MG TA B MD 00 10 10 0 21 6 [...] 01 08 6 30 30 KM 69 [facility] ES 31 -0 -0 .0 AR 11 YN ti TO 00 4- 3- 00 T 01 E ve R 75 20 20 PH 0 VA 10 19 11 11 AR UG 0 MA HN MG CY W 71 TA 74 BL # ET 71 74 FU 00 01 08 6 30 30 KM 69 [facility] RO 37 -0 -0 .0 AR 11 YN ti SE 80 4- 3- 00 T 00 E ve MA 21 20 20 PH 9 VA DE 61 11 11 AR UG 0 MA HN 40 CY W 71 MG 74 # TA BL 71 ET 74 RO 23 06 08 2 30 30 KM 69 [facility] PI 15 -0 -[address] ti NI 50 2- 3- 00 T 52 IC ve RO 12 20 20 PH 9 E LE 60 11 11 AR SA 1 MA RA HC CY H L 71 M 4 74 MG # TA 71 BL 74 ET NO 00 06 07 3 15 30 KM 69 [facility] VO 16 -2 -[address] ti LO 93 1- 2- 00 T 61 IC ve G 69 20 20 PH 3 E MA 61 11 11 AR SA X 9 MA RA 70 CY H -3 71 M 0 74 FL # EX PE 71 N 74 SY RN FL 00 04 07 3 16 30 KM 69 [facility] UT 05 -2 -[address] ti IC 43 9- 2- 00 T 70 IC ve 27 20 20 PH 2 E ON 09 11 11 AR SA E 9 MA RA MD CY H OP 71 M 74 50 # MC 71 G 74 SP RA Y GA 14 04 07 3 60 30 KM 69 [facility] BA 55 -2 -[address] ti PE 00 6- 2- 00 T 54 IC ve NT 51 20 20 PH 2 E IN 20 11 11 AR SA 2 MA RA 30 CY H 0 71 M MG 74 # CA PS 71 UL 74 E EN 00 01 07 6 60 30 KM 69 [facility] AL 09 -0 -2 .0 AR 11 [...] AR 07 YN ti MD 30 1- 9- 00 T 00 E [...] AR 80 YN ti MD 30 1- T 99 E ve OL [...] 1- 1- 00 RT 44 IN ve MA 21 20 20 8 G DE 61 [...] -3 -1 .0 MA 80 YN ti MD 30 1- 1- 00 RT 99 E [...] 1- 4- 00 RT 44 IN ve MA 21 20 20 8 G DE 61 [...] -3 -1 .0 MA 80 YN ti MD 30 1- 4- 00 RT 99 E [...] -3 -1 .0 MA 80 YN ti MD 30 1- 7- 00 RT 99 E [...] 1- 7- 00 RT 44 IN ve MA 21 20 20 8 G DE 61 [...] 8- 9- 00 RT 77 IN ve MA 21 20 20 0 G DE 61 [...] -3 -0 .0 MA 80 YN ti MD 80 1- 5- 00 RT 99 E [...] 8- 2- 00 RT 77 IN ve MA 21 20 20 0 G DE 61 [...] -3 -0 .0 MA 80 YN ti MD 80 1- 8- 00 RT 99 E [...] 8- 4- 00 RT 77 IN ve MA 21 20 20 0 G DE 61 [...] -3 -1 .0 MA 80 YN ti MD 80 1- 0- 00 RT 99 E [...] 8- 7- 00 RT 77 IN ve MA 21 20 20 0 G DE 61 [...] -2 -1 .0 MA 58 YN ti MD 80 5- 3- 00 RT 62 E [...] 8- 0- 00 RT 77 IN ve MA 21 20 20 0 G DE 61 [...] -2 -1 .0 MA 58 YN ti MD 80 5- 6- 00 RT 62 E [...] 8- 2- 00 RT 77 IN ve MA 21 20 20 0 G DE 61 [...] -2 -0 .0 MA 58 YN ti MD 80 5- 4- 00 RT 62 E [...] 2- 7- 00 RT 52 IN ve MA 00 20 20 0 5 G N [...] 2- 7- 00 RT 82 IN ve MA 21 20 20 3 G DE 61 09 09 PH MA 0 AR LE 40 M SH #7 EA MG 17 4 TA BL ET ME 00 08 05 08 60 30 K- 68 PA Ac TO 37 -2 -0 .0 MA 58 YN ti MD 80 5- 7- 00 RT 62 E [...] 2- 3- 00 RT 82 IN ve MA 21 20 20 3 G DE 61 [...] 2- 3- 00 RT 52 IN ve MA 00 20 20 0 5 G N [...] -2 -0 .0 MA 58 YN ti MD 80 5- 9- 00 RT 62 E [...] 2- 6- 00 RT 82 IN ve MA 21 20 20 3 G DE 61 [...] 2- 6- 00 RT 52 IN ve MA 00 20 20 0 5 G N [...] -2 -1 .0 MA 58 YN ti MD 80 5- 2- 00 RT 62 E [...] 2- 6- 00 RT 82 IN ve MA 21 20 20 3 G DE 61 [...] -2 -1 .0 MA 58 YN ti MD 80 5- 2- 00 RT 62 E [...] 1- 0- 00 RT 23 E ve MA 21 20 20 0 VA DE 61 [...] 2- 0- 00 RT 52 IN ve MA 00 20 20 0 5 G N 80 09 09 PH MA HC 5 AR LE L M SH 50 #7 EA 0 17 MG 4 TA BL ET MD 00 01 01 00 24 6 EC [...] 10 01 01 90 30 K- 44 MA Ac RI 07 -2 -0 .0 MA [...] 80 1- - RT 23 E ve MA 21 20 20 0 VA DE 61 [...] -2 -0 .0 MA 58 YN ti MD 80 5- 1- 00 RT 62 E [...] 1- 4- 00 RT 23 E ve MA 21 20 20 0 VA DE 61 08 08 PH UG 0 AR HN 40 M W #7 MG 17 4 TA BL ET ME 00 08 12 03 60 30 K- 68 PA Ac TO 37 -2 -0 .0 MA 58 YN ti MD 80 5- 4- 00 RT 62 E ve OL 03 20 20 2 VA OL 21 08 08 PH UG 0 AR HN TA M W RT #7 RA 17 TE 4 50 MG TA B TR 00 10 12 01 12 30 K- 68 MA Ac AM 37 -2 -0 0. MA [...] 10 11 00 90 30 K- 44 MA Ac RI 07 -2 -0 .0 MA 53 CK ti CA 11 8- 7- 00 RT 16 ve 01 20 20 6 GR 15 66 08 08 PH EG 0 8 AR OR MG M Y #7 E CA 17 PS 4 UL E 00 10 11 00 12 30 K- 44 MA Ac 40 -2 -0 0. MA 53 CK ti 60 8- 7- RT 16 ve 36 20 20 0 5 GR 30 08 08 PH EG 5 AR OR M Y #7 E 17 4 TR 00 10 11 00 12 30 K- 68 MA Ac AM 37 -2 -0 0. MA [...] -2 -0 .0 MA 58 YN ti MD 80 5- 7 RT 62 E ve OL 03 20 20 2 VA OL 21 08 08 PH UG 0 AR HN TA M W RT #7 RA 17 TE 4 50 MG TA B FU 00 07 11 03 30 30 K- 68 PA Ac RO 37 -2 -0 .0 MA 56 YN ti SE 80 RT 23 E ve MA 21 20 20 0 VA DE 61 [...] -2 -0 .0 MA 58 YN ti MD 80 5- 9- RT 62 E ve OL 03 20 20 2 VA OL 21 08 08 PH UG 0 AR HN TA M W RT #7 RA 17 TE 4 50 MG TA B FU 00 07 10 02 30 30 K- 68 PA Ac RO 37 -2 -0 .0 MA 56 YN ti SE 80 1 9- RT 23 E ve MA 21 20 20 0 VA DE 61 [...] 80 1- - RT 23 E ve MA 21 20 20 0 VA DE 61 08 08 PH UG 0 AR HN 40 M W #7 MG 17 4 TA BL ET ME 00 08 09 00 60 30 K- 68 PA Ac TO 37 -2 -1 .0 MA 58 YN ti MD 80 5- 1- RT 62 E ve [...] 1- 4- 00 RT 23 E ve MA 21 20 20 0 VA DE 61 08 08 PH UG 0 AR HN 40 M W #7 MG 17 4 TA BL ET TO 00 06 08 00 60 30 K- 68 BA Ac MD 18 -1 -1 .0 MA 53 IL [...] 08 PH CH E 9 AR RI MD M ST OP #7 OP 17 HE [...] 2- 7- 00 RT 98 EY ve MA 21 20 20 2 DE 61 08 [...] IN HE BL C R ET M MD 68 05 06 00 12 4 K- [...] 08 AC la E 9 E bl MD PH e OP M IN 50 C [...] 4- 5- 00 R 51 Av ve MA 96 20 20 TR ai DE 61 [...] 4- 8- 00 R 51 Av ve MA 96 20 20 TR ai DE 61 [...] 08 AC la E 9 E bl MD PH e OP M IN 50 C [...] 8- 7- 00 RT 60 Av ve MA 21 20 20 5 ai DE 61 [...] -1 -1 .0 MA 48 t ti MD 80 8- 7- 00 RT 60 Av [...] 3- 0- 00 R 01 Av ve MA 03 20 20 TR ai N 00 [...] 4- 0- 00 R 51 Av ve MA 96 20 20 TR ai DE 61 [...] 08 AC la E 9 E bl MD PH e OP M IN 50 C [...] -2 -2 .0 MA 43 t ti MD 80 7- 6- 00 RT 16 Av [...] 1- 6- 00 R 69 Av ve MA 02 20 20 0 TR ai N [...] 7- 6- 00 RT 16 Av ve MA 21 20 20 1 ai DE 61 [...] 7- 5- 00 RT 16 Av ve MA 21 20 20 1 ai DE 61 [...] -2 -2 .0 MA 43 t ti MD 80 7- 5- 00 RT 16 Av [...] 1- 5- 00 R 69 Av ve MA 02 20 20 0 TR ai N [...] SQUARE METERS Comment: If this patient is -Cymraes, then multiply the Comment: result by 1.210. [...] 017 K/mm3 ed monocyt 06:20 e count Dewey % 2 = 5.6 % 1.7-9.3 complet [...] 017 K/mm3 ed monocyt 06:00 e count Dewey % = 6.1 % 1.7-9.3 complet 017 [...] SQUARE METERS Comment: If this patient is -Cymraes, then multiply the Comment: result by 1.210. [...] 04:30 on Urine culture (03-11-2017 04:30) Urine [id number] complet culture 017 07 ed 04:30 Escheri [...] blood 04:09 platele t mean volume dillan Dewey % = 7.8 % 1.7-9.3 complet 017 [...] SQUARE METERS Comment: If this patient is -Cymraes, then multiply the Comment: result by 1.210. [...] blood 12:40 platele t mean volume dillan Dewey % = 7.3 % 1.7-9.3 complet 017 [...] blood 04:50 platele t mean volume dillan Dewey % = 6.2 % 1.7-9.3 complet 017 [...] SerPl-mCnc (01-11-2017 10:51) NT-proB [id number] [id number] complet DIRECTOR OF PUBLICATIONS 017 pg/mL ed SerPl-m 10:51 Cnc Differential [...] SerPl-mCnc (12-13-2016 13:36) NT-proB 3518 [id number] complet DIRECTOR OF PUBLICATIONS 017 pg/mL ed SerPl-m 13:36 Cnc Magnesium SerPl-mCnc (09-08-2016 04:24) Magnesi 2.0 1.9-2.4 complet um 017 mg/dL ed SerPl-m 04:24 Cnc Procedures Procedure DOS Code Location Performer Comment MEASUREME [id number] MEAWISAC MEAKAREN NT 5 W W CARDIAC [facility] PRESS RT HEART PERQ TRANSFUSI [id number] MEADOWVIE MEAWVIE ON 5 W W NONAUTO [facility] RED BLD MEDICAL MEDICAL CELLS PERIPH VN PERQ INSERTION 0046 [facility] 5 Y Y VASCULAR [facility] STENTS PERQ 0066 [facility] Y Y [facility] COR[facility]ARY ANGIOPLAS TY PTCA INSERTION 3607 [facility] 5 [facility] ARTERY STENT LEFT 3722 [facility] 5 Y Y CARDIAC [facility] CATHETERI ZATION CORONARY 8856 [facility] 5 Y Y [facility] USING TWO CATHETERS INSERTION 8607 [facility] TOTALLY 1 [facility] IMPL MEDICAL MEDICAL VASCULAR CE CE ACCESS DEVICE Encounters Encounter Start End Date Code Location Performer Type Date [facility] - 7 7 [facility] - 7 7 [facility] 7 7 [facility] - 7 7 [facility] - 7 7 [facility] - 7 7 [facility] - 7 7 [facility] 7 [facility] 7 7 [facility] - 7 7 [facility] INPAT[facility] - 7 7 [facility] 7 7 [facility] - 7 7 [facility] INPATIENT [facility] - 7 7 [facility] - 7 7 [facility] - 7 7 [facility] - 6 6 [facility] - 6 6 [facility] - 6 6 [facility] - 6 6 [facility] - 6 6 [facility] - 6 6 [facility]PATI[facility] SOCR[facility] - 6 6 [facility] SO[facility] - 6 6 [facility] - 6 6 [facility] - 6 6 [facility] - 6 6 [facility] - 6 6 [facility]PATI[facility] HOSPICE HOSPICE 6 6 OF [facility] 6 6 OF [facility] 5 5 OF [facility] 5 5 OF [facility] 5 5 OF [facility] [place] - 5 5 [facility] 5 5 [facility] 5 5 [facility] - 5 5 [facility] INPATIENT [facility] - 5 5 [facility] INPATIENT [facility] 5 5 [facility] [place] - 5 5 [facility] - 5 5 [facility] - [address] [facility] - OTHER 5 5 [facility] - 5 5 [facility] OUTPATIEN [facility] 5 5 [facility] - 5 5 [facility]PATIEN [facility] [address] [facility] SOCRATES - 5 5 [facility] 5 5 [facility] - 5 5 [facility] SOCRATES - 5 5 [facility] OUTPATIEN INC [facility], 5 5 HOME OUTPATIEN HEALTH AGENCY HOME [facility] 5 5 HOME OUTPATIEN HEALTH [facility], 5 5 HOME OUTPATIEN HEALTH [facility] [place] [facility], 4 4 HOME OUTPATIEN HEALTH [facility] - 4 4 [facility] OUTPATIEN INC [facility] SO[facility]ATES [facility] 4 4 [facility]EN [facility] [place] - 4 4 [facility] OUTPATIEN [facility] SOCRATES - 4 4 [facility] OUTPATIEN INC [facility] 4 4 [facility] OUTPATIEN INC [facility] [place] - 4 4 [facility] OUTPATIEN [facility] SO[facility] - 4 4 [facility] - 4 4 [facility]EN [facility] - 4 4 [facility]EN [facility] - 4 4 [facility]EN INC [facility] 4 4 [facility]EN [facility] - 3 3 [facility] [place] [facility] 3 3 [facility] OUTPATIEN [facility] [place] - 3 3 [facility] - 3 3 [facility] [place] - 2 2 REG[facility]AL OUTPATIEN [facility] [place] - 2 2 [facility] OUTPATIEN [facility] [place] - 1 1 REGIONAL OUTPATIEN MEDICAL T CE [facility], 1 HOME OUTPATIEN HEALTH [facility] [place] [facility] 1 1 [facility]PAT[facility] - 0 0 [facility] [place] - 0 0 [facility] OUTPATIEN [facility] [place] [facility] 0 0 [facility] OUTPATIEN [facility] - 0 0 [facility] [place] - 9 9 MEDICAL OUTPATIEN [facility] [place] - 9 9 REG[facility] OUTPATIEN [facility] [place] - 9 9 [facility] OUTPATIEN [facility] [place] - 8 8 [facility] OUTPATIEN [facility] [place] - 8 8 [facility] OUTPATIEN [facility] [place] - 8 8 [facility] OUTPATIEN [facility] [place] - 8 8 [facility] OUTPATIEN [facility] [place] - 8 8 [facility] OUTPAT[facility] [place] - 8 8 [facility] OUTPATIEN [facility] [place] [facility] 8 8 [facility] OUTPATIEN [facility] [place] [id number] [facility]PAT[facility] [place] [phone] [facility] [place] [id number] [facility] [place] [phone] [facility] [place] [phone] [facility] [place] [phone] [facility] [place] [phone] [facility] [place] [phone] [facility] [place] [phone] [facility]
[2017-03-14 15:41] LABS: NEUTROPHILS 88 % (42-76)
--- OUTSIDE RECORDS SUMMARY | 2017-03-14 16:09 | External Medical Summary Rpt | CCD ---
Author Author , NOREEN Thomas NOREEN Address Unknown Phone [email or web address] Care Team Providers Care Professor Of Radiology Name Role Phone [facility], [facility] Unavailable Unavailable [facility] Unavailable Unavailable [facility], [facility] Unavailable Unavailable [facility], [facility] RHODA BACA MD, PSC, Unavailable Unavailable RHODA BACA MD, PSC [facility] Unavailable [place], [facility] [place] KENTON ARMIJO, Unavailable Unavailable [facility] MD, Unavailable Unavailable [facility], ROSY POWELL MD, [facility] MASSIMO MARISCAL Unavailable Unavailable M, MASSIMO MARISCAL, Unavailable Unavailable M.Marko.P.S.CIrena, LES MARCH M.D.P.S.CIrena [facility], Unavailable Unavailable [facility] BHAGRATH, KSENIA S, Unavailable Unavailable BHAGRATH, KSENIA S [facility] Unavailable Unavailable ON RED, [facility] ON [facility] Un[facility] Unavailable SERVICE, [facility] Unavailable Unavailable SERVICE[facility] Unavailable Unavailable SERVICE[facility] Unavailable Unavailable CONSULTANTS O, [facility], Unavailable Unavailable [facility], Unavailable Unavailable [facility] Unavailable Unavailable [facility] ALESSANDRA-ERIC, Unavailable Unavailable JERMAINEYANG ARMENDARIZ, JERMAINE INDY KOKO, Unavailable Unavailable INDY K[facility] Un[facility], [facility], [place], Unavailable Unavailable KEY, [place] [facility] Unavailable Unavailable [facility], [facility] Unavailable Unavailable [facility], [facility], Unavailable Unavailable [facility] Unavailable Unavailable INC, [facility] FALLIS DIANA, FALLIS Unavailable Unavailable DIANA [facility] Unavailable Unavailable #471, [facility] MORRO ZHENG, Unavailable Unavailable MORRO ZHENG GUNDUMALLA, ISABEL K, Unavailable Unavailable GUNDUMALLA, ISABEL K [facility] Unavailable Unavailable [facility], [facility], Unavailable Unavailable [facility] Unavailable Unavailable INC, [facility] Unavailable [facility]available HOSPITAL, [facility] Unavailable Unavailable HOSPITAL P, [facility] H[facility]PITAL P [facility] Unavailable [facility]available MEDICAL CE[facility] Unavailable Unavailable MEDICAL CENT, [facility] Unavailable Unavailable INC, [facility], Unavailable Unavailable [facility] Unavailable Unavailable PLL[facility], [facility], Unavailable Unavailable HOSPICE [facility] Unavailable Unavailable PHYSICIANS, [facility] RIAN, VANDANA Cox, RIAN, Unavailable Unavailable VANDANA [facility] Unavailable Unavailable [place], [facility] [place] [facility], Unavailable Unavailable [id number], Unavailable Unavailable [id number] Unavailable Unavailable PHARMACY, [facility] Unavailable [facility], [facility] Unavailable Unavailable VASCULAR PH, [facility] Unavailable Unavailable IMAGING ASS, [facility] # Unavailable Unavailable [id number], [facility] # [id number] [facility] [id number] # Unavailable Unavailable 7174, [facility] [id number] # [id number] [facility] Unavailable Unavailable [facility], [facility] Un[facility], [facility] Unavailable Unavailable COMMUNITY ACT, [facility] LUIS E HAM, LUIS E HAM Unavailable Unavailable [facility] Unavailable Unavailable ASSOCIAT, [facility] Un[facility] SURGERY, [facility] Unavailable Unavailable MEDICAL, [facility] Un[facility] Unavailable LLC, [facility] Unavailable Unavailable PHARMACY, [facility], Unavailable Unavailable [facility] Un[facility], [facility] Unavailable Unavailable AMBULANCE SE, [facility] AMBULANCE SE [facility], Unavailable Unavailable PLLC, [facility] KRAFT ANTONINA, KRAFT Unavailable Unavailable ANTONINA [facility], Unavailable Unavailable [facility] PAWSAT, PAWSAT Unavailable Unavailable PAWSAT MAR, PAWSAT Unavailable Unavailable MAR HURLEYRICHARD FERRERA W, Unavailable Unavailable HURLEYRICHARD FERRERA W PEASI, PEASI Unavailable Unavailable [facility] Unavailable Unavailable PRACTICE CL, [facility]ACT[facility] CL [facility] Unavailable Unavailable AM[facility]ULAN, [facility] Unavailable Unavailable [facility], [facility], Unavailable Unavailable [facility] Unavailable Unavailable SERVICE, [facility] QUAL[facility] PROVIDER Unavailable Unavailable SERVICES IN, [facility] Unavailable Unavailable [facility], [facility] Unavailable Unavailable [id number] # [id number], [facility] [id number] # 0229 [facility] Unavailable Unavailable HEALTH CARE, [facility], Unavailable Unavailable [facility] KETTY BROTHERS, ZEV, Unavailable Unavailable KETTY C [facility] Unavailable Unavailable EQUIPME, [facility], Unavailable Unavailable [facility] ZE [facility]ACK[facility], Unavailable Unavailable ZE BLACKWELL [facility] Unavailable Unavailable HOSPITALS, [facility], Unavailable Unavailable [facility], Unavailable Unavailable [facility] # Unavailable Unavailable [id number], [facility] # [id number] [facility] Unavailable Unavailable AGENCY, [facility] ZE MAN, Unavailable Unavailable ZE MAN WILLIAM Unavailable Unavailable ALEXANDREA Clemente WILLIAM H ZAMBOS, PHILIP N, Unavailable Unavailable MICHAEL DE LA ROSA Purpose Continuity of Care Document - 10-31-2006 through 2016 Problems Code Diagnosis DOS Provider Status I129 HYPERTENSIV 02-19-2017 CORAL Roberts CKD PHYSICIANS, W/STAGE 1-4 [facility] CKD OR UNS CKD M069 RHEUMATOID 02-19-2017 [facility] UNSPECIFIED SERVICE N189 CHRONIC 02-19-2017 [facility] KIDNEY PHYSICIANS, DISEASE [facility] UNSPECIFIED R0602 SHORTNESS 02-19-2017 CORAL OF BREATH PHYSICIANS, [facility] R0689 OTHER 02-19-2017 [facility] ABNORMALITI [facility] ES OF AMBULANCE BREATHING SE R600 LOCALIZED 02-19-2017 [facility] EDEMA [facility] AMBULANCE SE Z7409 OTHER 02-19-2017 [facility] REDUCED AMBULANCE MOBILITY SERVICE I10 ESSENTIAL 02-15-2017 [facility] HYPERTENSIO ASSOCIATES N N183 CHRONIC 02-15-2017 [facility] DISEASE [facility]OC[facility]ATES STAGE 3 MODERATE N179 ACUTE 02-12-2017 [facility] FAILURE [facility] UNSPECIFIED F85964 ULCERATIVE 01-29-2017 [place] [facility] LEFT LOWER [...] INC DISEASE UNS K219 GASTRO-ESOP 01-27-2017 [facility] DISEASE INC WITHOUT ESOPHAGITIS R079 CHEST PAIN 01-27-2017 [place] U[facility]PECIFIED [facility] IMAGING ASS Z794 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 01-27-2017 [facility] CURRENT USE [facility] OF INSULIN INC Z7982 FDC 01-27-2017 [facility] CURRENT USE [facility] OF ASPIRIN INC I2510 ASHD MENOMINEE 01-22-2017 CORONARY [facility] ARTERY W/O HOSPITALS ANGINA PECTORIS I252 OLD 01-22-2017 MYOCARDIAL [facility] INFARCTION HOSPITALS I255 ISCHEMIC 01-22-2017 CARDIOMYOPA [facility] THY HOSPITALS I472 VENTRICULAR 01-22-2017 [facility] TACHYCARDIA HOSPITALS I5022 CHRONIC 01-22-2017 SYSTOLIC [facility] CONGESTIVE HOSPITALS HEART FAILURE I509 HEART 01-22-2017 [facility] FAILURE HEALTH UNSPECIFIED ASSOCIATES R0609 OTHER FORMS 01-22-2017 [facility] DYSPNEA HEALTHCARE HOSPITALS U80193 PRESENCE 01-22-2017 AUTO [facility] IMPLANTABLE HOSPITALS CARDIAC DEFIBRILLAT [place] R918 OTHER 01-19-2017 [facility] NONSPECIFIC [facility] ABNORMAL FINDING OF LUNG FIELD E785 HYPERLIPIDE 01-18-2017 [facility] HEALTH UNSPECIFIED ASSOCIATES G894 CHRONIC 01-14-2017 [place] PAIN [facility] SYNDROME HEALTH CARE N19 UNSPECIFIED 01-14-2017 [place] KIDNEY [facility] FAILURE HEALTH CARE Z950 PRESENCE OF 01-14-2017 [place] CARDIAC [facility] PACEMAKER [facility] CARE Z955 PRESENCE OF 01-11-2017 CORONARY [facility] ANGIOPLASTY HOSPITALS IMPLANT & GRAFT M6281 MUSCLE 01-05-2017 [facility] WEAKNESS AMBULANCE GENERALIZED SERVICE [id number] OTHER LONG 01-05-2017 [facility] P DRUG THERAPY Z882 ALLERGY 01-05-2017 [facility] STATUS TO MEM HOS[facility] SULFONAMIDE INC S STATUS R609 EDEMA 01-04-2017 [facility] UNSPECIFIED [facility]ARE HOSPITALS E139 OTH SPEC 01-01-2017 [facility] DIABETES PHYSICIANS MELLITUS GROUP W/O COMPLICATIO NS E875 HYPERKALEMI 01-01-2017 [facility] A PHYSICIANS GROUP I5020 UNSPECIFIED 01-01-2017 [facility] SYSTOLIC PHYSICIANS CONGESTIVE GROUP HEART FAILURE Z4502 ENCOUNTER 12-21-2016 ADJUST&MGMT [facility]ALTH[facility] AUTO HOSPITALS IMPLANTABL CARD DEFIB N390 URINARY 12-16-2016 [facility] INFECTION ASSOCIATES SITE NOT SPECIFIED R001 BRADYCARDIA 12-14-2016 [facility] UNSPECIFIED FOUNDATION R69 ILLNESS 12-14-2016 [place] UNSPECIFIED [facility] ACT B356 TINEA 12-13-2016 [facility] E1122 TYPE 2 12-13-2016 [facility] MELLITUS HOSPITALS W/DIAB CHRON KIDNEY DZ E1140 TYPE 2 DM 12-13-2016 WITH HEALTHCARE DIABETIC HOSPITALS NEUROPATHY UNSPECIFIED G2581 RESTLESS 12-13-2016 [facility] SYNDROME HOSPITALS I161 HYPERTENSIV 12-13-2016 E EMERGENCY [facility]ALTHCARE HOSPITALS J9602 ACUTE 12-13-2016 RESP[facility]ATORY [facility] FAILURE HOSPITALS WITH HYPERCAPNIA R0600 DYSPNEA 12-13-2016 [facility] UNSPECIFIED SERV FOUNDATION D631 ANEMIA IN 12-04-2016 [facility] CHRONIC SERV KIDNEY FOUNDATION DISEASE N250 RENAL 12-04-2016 [facility] OSTEODYSTRO SERV PHY FOUNDATION J129 VIRAL 11-28-2016 [facility] PNEUMONIA [facility] UNSPECIFIED R339 RETENTION 11-21-2016 [facility] OF URINE [facility] HOSPITAL P R338 OTHER 11-14-2016 QUALITY RETENTION PROVIDER OF URINE SERVICES IN Y07876 PRESSURE 10-14-2016 [facility] ULCER OF PROVIDER RIGHT HEEL SERVICES IN UNSTAGEABLE Y89501 NON-PRSS 10-14-2016 QUALITY CHR ULCR PROVIDER UNS PART SERVICES IN UNS LOW LEG UNS SEV J189 PNEUMONIA 09-29-2016 [facility] UNSPECIFIED PHYSICIANS ORGANISM GROUP N289 DISORDER OF 09-29-2016 [facility] KIDNEY AND PHYSICIANS URETER GROUP UNSPECIFIED R05 COUGH 09-28-2016 [facility] AMBULANCE SE I5021 ACUTE 09-08-2016 [facility] SYSTOLIC SERV CONGESTIVE FOUNDATION HEART FAILURE R279 UNSPECIFIED 09-08-2016 [facility] LACK OF MEDICAL COORDINATIO RESPONSE N I130 HTN HEART & 09-07-2016 [place] [facility] CKD W/HF & SERV CKD STAGE FOUNDATION 1-4 OR UNS CKD I5023 ACUTE CHRON 09-07-2016 [place] [facility] SYSTOLIC SERV HEART FOUNDATION FAILURE I517 CARDIOMEGAL 09-07-2016 [place] [facility] Y SERV [facility]OUND[facility] J9601 ACUTE 09-07-2016 [place] [facility] RESPIRATORY SERV FAILURE FOUNDATION WITH HYPOXIA R778 OTHER 09-07-2016 [facility] SPECIFIED SERV ABNORMALITI FOUNDATION ES OF PLASMA PROTEINS I214 NON-ST 09-06-2016 [facility] INFARCTION I4581 LONG QT 09-06-2016 [place] [facility] SYNDROME SERV FOUNDATION J9691 RESPIRATORY 09-06-2016 [place] [facility] FAILURE SERV UNSPECIFIED FOUNDATION WITH HYPOXIA R9431 ABNORMAL 09-06-2016 [place] [facility] ELECTROCARD SERV IOGRAM FOUNDATION E1165 TYPE 2 09-05-2016 [facility] WITH HYPERGLYCEM IA Q35274 PAIN IN 09-05-2016 [place] RIGHT LEG MEDICAL IMAGING ASS W24896 PAIN IN 09-05-2016 [place] LEFT LEG MEDICAL IMAGING ASS M7989 OTHER 09-05-2016 [place] SPECIFIED MEDICAL SOFT TISSUE IMAGING ASS DISORDERS R269 UNSPECIFIED 09-05-2016 [facility] ABNORMALITI AMBULANCE ES OF GAIT SE AND MOBILITY R531 WEAKNESS 09-05-2016 [facility] AMBULANCE SE Z8679 PERSONAL 09-05-2016 [facility] HISTORY OTH PHYSICIANS, DISEASES [facility] CIRCULATORY SYSTEM Z7401 BED 08-30-2016 [facility] AMBULANCE STATUS SERVICE E109 TYPE 1 08-14-2016 [facility] DIABETES HEALTH MELLITUS ASSOCIATES WITHOUT COMPLICATIO NS L0390 CELLULITIS 08-14-2016 [facility] UNSPECIFIED HEALTH ASSOCIATES M869 OSTEOMYELIT 08-11-2016 [facility]AL[facility] IS MOBILE XRAY UNSPECIFIED SERVICE R0989 OTH SPEC SX 07-20-2016 QUALITY & SIGNS MOBILE XRAY INVLV THE SERVICE CIRC & RESP SYS E1151 TYPE 2 DM 05-11-2016 [facility] W/DIAB PERIPH 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 F55332 PRESSURE 05-11-2016 [facility] ULCER OF RIGHT ANKLE STAGE 2 M31905 PRESSURE 05-11-2016 [facility] ULCER OF LEFT ANKLE UNSTAGEABLE M1990 UNSPECIFIED 05-06-2016 [facility] AMBULANCE OSTEOARTHRI SERVICE TIS UNSPECIFIED SITE R0789 OTHER CHEST 05-06-2016 [facility] PAIN PHYSICIANS, [facility] N59432 CELLULITIS 04-25-2016 [facility] OF RIGHT LOWER LIMB D38532 PRESSURE 04-25-2016 [facility] ULCER OF RIGHT HEEL STAGE 2 E559 VITAMIN D 04-24-2016 [facility] DEFICIENCY HEALTH UNSPECIFIED ASSOCIATES L089 LOCAL INF 04-18-2016 [facility] THE SKIN & HEALTH SUBCUTANEOU ASSOCIATES S TISSUE UNS R319 HEMATURIA 04-18-2016 [facility] P W20650 UNSPECIFIED 04-17-2016 [facility] BLEPHARITIS [place] RIGHT LOWER EYELID [id number] UNSPECIFIED 03-29-2016 [facility] OPEN WOUND HEALTH LOWER ASSOCIATES LEG INITIAL ENC I85390 PAIN IN 03-20-2016 [facility] LEFT KNEE [facility] INC M179 OSTEOARTHRI 02-22-2016 [facility] TIS OF KNEE MEM HOSP INC UNSPECIFIED N4889 OTHER 02-18-2016 [facility] SPECIFIED [facility] P OF PENIS N489 DISORDER OF 02-18-2016 [facility] UNSPECIFIED AMBULANCE SE R3989 OTH 02-18-2016 [facility] SYMPTOMS & [facility] SIGNS AMBULANCE INVOLVING SE THE SYSTEM R52 PAIN 02-18-2016 [facility] UNSPECIFIED [facility] AMBULANCE SE [id number] UNS COMP 02-18-2016 [facility] PROSTH [facility] DEVICE IMPL AMBULANCE & GRAFT SE INIT ENC R1084 GENERALIZED 02-13-2016 [facility] PAIN AMBULAN R1930 ABDOMINAL 02-13-2016 [facility] UNSPECIFIED AMBULAN SITE R5381 OTHER 02-13-2016 [facility] AMBULANCE SERVICE Z466 ENCOUNTER 02-13-2016 [facility] FITTING AND PHYSICIANS, ADJUSTMENT [facility] URINARY DEVICE E118 TYPE 2 02-04-2016 [facility] DIABETES [facility] MELLITUS INC W/UNS COMPLICATIO NS Z539 PROCEDURE & 02-04-2016 [facility] NOT CARRIED INC OUT UNS REASON M169 OSTEOARTHRI 01-10-2016 RHODA BACA TIS OF HIP , PSC UNSPECIFIED H43811 PAIN IN 01-10-2016 [facility] UNSPECIFIED [facility] HIP INC W25815 PAIN IN 01-10-2016 [facility] UNSPECIFIED [facility]OS[facility] KNEE INC E878 OTHER D/O 12-27-2015 [facility] OF HEALTH ELECTROLYTE ASSOCIATES AND FLUID BALANCE NEC F18267 OTHER 12-17-2015 [facility] SPECIFIED [facility]OS[facility] RHEUMATOID INC ARTHRITIS LEFT HIP M1612 UNILATERAL 12-17-2015 [facility] PRIMARY [facility] OSTEOARTHRI INC TIS LEFT HIP D42051 PAIN IN 12-07-2015 [facility] LEFT THIGH [facility] INC S13491 PAIN IN 12-07-2015 [facility] LEFT LOWER [facility] LEG INC L41129 PAIN IN 12-06-2015 [facility] LEFT HIP [facility] INC U24501 NON-PRSS 11-24-2015 [facility] CHRN ULCER PHYSICIANS SKIN OTH GROUP SITES UNS SEVERITY F23020 TYPE 2 11-16-2015 [place] D[facility]NA DIABETES MELLITUS WITH FOOT ULCER M2570 OSTEOPHYTE 11-16-2015 [place] [facility] UNSPECIFIED JOINT W86183 PAIN IN 10-19-2015 [place] [facility] RIGHT FOOT D509 IRON 09-29-2015 [facility] DEFICIENCY HEALTH ANEMIA ASSOCIATES UNSPECIFIED P57853 COMBINED 08-24-2015 [facility]-RELATED INSTITUTE CATARACT LEFT EYE H269 UNSPECIFIED 08-24-2015 [facility] INC C85814 COMBINED 07-27-2015 [facility] EYE A[facility]-RELATED INSTITUTE CATARACT RIGHT EYE E46 UNSPECIFIED 2015 [facility] PROTEIN-EVGENY ASSOCIATES ORIE MALNUTRITIO N Q04179 COMBINED 06-22-2015 [facility] EYE AGE-RELATED INSTITUTE CATARACT BILATERAL H538 OTHER 06-22-2015 [place] [facility]UAL [facility] DISTURBANCE INSTITUTE S N186 END STAGE 05-24-2015 [facility] RENAL HEALTH DISEASE ASSOCIATES 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 [facility] CY CHRONIC PERIPHERAL I071 RHEUMATIC 05-11-2015 [facility] TRICUSPID SERV INSUFFICIEN FOUNDATION CY 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 05-11-2015 [facility] C MITRAL SERV VALVE FOUNDATION INSUFFICIEN CY Z0189 ENCOUNTER 05-06-2015 NATACHA CLEARY OTHER AMB SERVICE SPECIFIED SPECIAL EXAMINATION S E1136 TYPE 2 04-29-2015 [facility] DIABETES VISION MELLITUS CENTER WITH DIABETIC CATARACT H2513 AGE-RELATED 04-29-2015 [facility] NUCLEAR VISION CAT[facility] CENTER BILATERAL X41828 CATARACT 04-29-2015 [facility] SECONDARY TO OCULAR DISORDERS UNS EYE I5032 CHRONIC 04-29-2015 [facility] DIASTOLIC CONGESTIVE HEART FAILURE R5382 CHRONIC 04-29-2015 [facility] FATIGUE UNSPECIFIED 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 M7731 CALCANEAL 03-30-2015 [place] SPUR RIGHT MEDICAL FOOT IMAGING ASS M059 RA WITH 03-23-2015 [place] RHEUMATOID EMERGENCY FACTOR AMBULAN UNSPECIFIED T53689 PAIN IN 03-23-2015 [place] UNSPECIFIED EMERGENCY LIMB AMBULAN Z02529M LACERATION 03-23-2015 [place] W/FOREIGN EMERGENCY BODY UNS AMBULAN FOOT INITIAL ENC Z7901 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 03-16-2015 [facility] CURRENT USE HEALTH OF ASSOCIATES ANTICOAGULA NTS G8929 OTHER 02-25-2015 [facility] CHRONIC EMERGENCY PAIN AMBULAN J9690 RESP FAIL 02-25-2015 [place] UNS UNS EMERGENCY WHETHER AMBULAN W/HYPOXIA/H YPERCAPNIA E975 02-24-2015 [facility] A419 SEPSIS 02-18-2015 [facility] UNSPECIFIED HEALTH ORGANISM ASSOCIATES E0590 THYROTOXICO 02-18-2015 [facility] SIS UNS W/O HEALTH THYROTOXIC ASSOCIATES CRISIS/STOR M R350 FREQUENCY 02-18-2015 [facility] MICTURITION ASSOCIATES R7989 OTHER SPEC 02-18-2015 [facility] ABNORMAL HEALTH FINDINGS ASSOCIATES BLOOD CHEMISTRY R4182 ALTERED 01-22-2015 [place] MENTAL EMERGENCY STATUS AMBULAN UNSPECIFIED I270 PRIMARY 01-21-2015 [facility] PULMONARY LAR HYPERTENSIO CONSULTANTS N O D16890 ASHD MENOMINEE 01-19-2015 [facility] COR ARTREY LAR W/UNS CONSULTANTS ANGINA O PECTORIS O30722L NONDSPL FX 01-19-2015 [facility] 2ND GENERAL METATARSAL SURGERY RT FT INIT ENC CLOS FX E1365 OTH SPEC 01-16-2015 [facility] DIABETES LAR MELLITUS CONSULTANTS WITH O HYPERGLYCEM IA I272 OTHER 01-15-2015 [facility] PULMONARY MEDICAL HYPERTENSIO N J811 CHRONIC 01-15-[facility] EDEMA ASSOCIAT J9610 CHRONIC 01-15-2015 [facility] RESPIRATORY REGIONAL FAIL UNS MEDICAL HYPOXIA/HYP ERCAPNIA B22793 NON-PRSS 01-15[facility] CHRN ULCR RADIOLOGY OTH PART LT ASSOCIAT FOOT UNS SEVERITY T53648 NON-PRSS 01-15-2015 [facility] CHR ULCR REGIONAL UNS PART LT MEDICAL LOW LEG UNS SEV N76074F DISPLACED 01-15-2015 [facility] 2ND RADIOLOGY METATARSAL ASSOCIAT RT FT INIT CLOS FX I5040 UNSPECIFIED 01-14-2015 [facility] DIASTOLIC CHF J90 PLEURAL 01-14-2015 [place] EFFUSION MEDICAL NOT IMAGING ASS ELSEWHERE CLASSIFIED M0540 RHEUMATOID 01-14-2015 [facility] WITH RA HOSPITAL UNSPECIFIED SITE R590 LOCALIZED 01-14-2015 [place] ENLARGED MEDICAL LYMPH NODES IMAGING ASS 05427 COR 01-13-2015 [facility] ATHEROSLERO LAR UNSPEC CONSULTANTS TYPE VESSEL O MENOMINEE/YOVANNY T 4258 CARDIOMYOPA 01-13-2015 [facility] THY OTHER LAR DISEASES CONSULTANTS CLASSIFIED O ELSW 4280 CONGESTIVE 01-13-2015 [facility] HEART LAR FAILURE [place] [address]223 SHORTNESS 01-13-2015 [facility] OF BREATH [place] O 58799 DIAB W/O 01-12-2015 [facility] COMP [facility] II/UNS NOT HOSPITAL P STATED UNCNTRL 2724 OTHER AND 01-12-2015 [facility] UNSPECIFIED [facility] HYPERLIPIDE NICHOLAS 3384 CHRONIC 01-12-2015 [facility] SYNDROME 4019 UNSPECIFIED 01-12-2015 [facility] HYPERT[facility]OSPITAL P N 4254 OTHER 01-12-2015 [facility] P MARNI 4259 UNSPECIFIED 01-12-2015 [facility] CARDIOMYOPA THY 10705 UNSPECIFIED 01-12-2015 [facility]IC [facility] HEART FAILURE 496 CHRONIC 01-12-2015 [facility] NEC 16451 ACUTE 01-12-2015 [facility] FAILURE 5849 ACUTE 01-12-2015 [facility] UNSPECIFIED 5853 CHRONIC 01-12-2015 [facility] DISEASE STAGE III (MODERATE) 7140 RHEUMATOID 01-12-2015 [facility]RIT[facility] 7862 COUGH 01-12-2015 [facility] 57122 SOLITARY 01-12-2015 [facility] V4582 POSTSURG 01-12-2015 [facility] P L COR ANGPLSTY STS V5867 LONG-TERM 01-12-2015 [facility] INSULIN [facility] P V5869 LONG-TERM 01-12-2015 [facility] USE OF HOSPITAL P OTHER MEDICATIONS 92919 01-04-2015 [facility] 18507 ATRIAL 12-25-2014 [facility] N [facility] O 7823 EDEMA 12-25-2014 [facility] AMBULANCE SERVICE 43224 OTHER FLUID 12-24-2014 [facility] OVERLOAD SERV [facility] [place] [address] ANEMIA IN 12-24-2014 [facility] DISEASE 61507 HTN CKD UNS 12-24-2014 [place] [facility] W/CKD SERV STAGE I [facility]OUND[facility] THRU STAGE IV/UNS 5880 RENAL 12-24-2014 [facility] OSTEODYSTRO SERV PHY [facility] 4240 MITRAL 12-22-2014 [facility] DISORDERS [facility] 4242 TRICUSPID 12-22-2014 [facility] SPEC NONRHEUMATI C 39256 OCCL&STENOS 12-22-2014 [place] [facility] PRECERBRL IMAGING ASS ART W/O INFARCT 29090 OTHER 12-19-2014 [facility] CHRONIC PHYSICIANS PAIN GROUP 4011 ESSENTIAL 12-19-2014 [facility] HYPERTENSIO PHYSICIANS N, BENIGN GROUP 4439 UNSPECIFIED 12-18-2014 [facility] PERIPHERAL LAR VASCULAR CONSULT[facility]S DISEASE O V4509 OTHER 12-18-2014 [facility] DEVICE IN SITU 5601 PARALYTIC 12-09-2014 [facility] ILEUS PHYSICIANS GROUP 7873 FLATULENCE 12-02-2014 [facility] ERUCTATION PHYSICIANS AND GAS GROUP PAIN 53753 ABDOMINAL 12-02-2014 [facility] PAIN, PHYSICIANS UNSPECIFIED GROUP SITE 33946 UNS 12-01-2014 [facility] ASTRODUODIT SERVICE IS W/O MENTION HEMORR 5609 UNSPECIFIED 12-01-2014 [facility] OBSTRUCTION 10460 CALCU 12-01-2014 [place] [facility] W/O MENTION IMAGING ASS CHOLECYST/O BST V4502 AUTOMATIC 12-01-2014 [facility] INC DEFIBRILLAT OR SITU 250 DIABETES 11-26-2014 [facility] [place] 68684 OTHER 11-23-2014 [facility] SPECIFIED CARDIAC DYSRHYTHMIA S 5851 CHRONIC 11-23-2014 [facility] KIDNEY DISEASE STAGE I 21472 RESTLESS 11-06-2014 [facility] LEGS PRIMARY SYNDROME CARE 41960 ESOPHAGEAL 11-06-2014 [facility] REFLUX PRIMARY CARE 4293 CARDIOMEGAL 10-13-2014 [place] [address] OTHER 10-13-2014 [facility] DYSPNEA AND REGIONAL MEDICAL CE RESPIRATORY ABNORMALITI ES 5932 ACQUIRED 10-07-2014 [place] CYST OF MEDICAL KIDNEY IMAGING ASS 97824 UNSPECIFIED 09-11-2014 [facility] INFECTION PARTNERS OF OF BONE LEXINGT ANKLE AND FOOT 9597 INJURY 09-11-2014 [facility] OTHER[facility]UNSPE [facility] CIFIED KNEE INC LEG ANKLE&FOOT V5881 FITTING AND 09-11-2014 [place] ADJUSTMENT MEDICAL OF IMAGING ASS VASCULAR CATHETER 29418 DIAB W/O 09-08-2014 [place] [facility] MENTION SERV COMP TYPE FOUNDATION II/UNS TYPE UNCNTRL 2767 HYPERPOTASS 08-26-2014 [facility] P 412 OLD 08-26-2014 [facility] INFARCTION INC 23732 CORONARY 08-26-2014 [facility] P CORONARY ARTERY 5859 CHRONIC 08-26-2014 [facility] DISEASE INC UNSPECIFIED 58185 WHEEZING 08-26-2014 [facility] 1101 DERMATOPHYT 08-14-2014 [facility] OF NAIL 61059 DIAB 08-14-2014 [facility] W/PERIPH CIRC D/O TYPE II/UNS TYPE UNCNTRL 7295 PAIN IN 08-14-2014 [facility] SOFT TISSUES OF LIMB 462 ACUTE 08-08-2014 [facility]NG[facility]IS [facility] INC 37497 OTH NONSPC 08-08-2014 [place] ABN FINDNG MEDICAL RAD&OTH EXM IMAGING ASS BODY STRUCTURE 714 RA AND 07-23-2014 [facility] OTHER AREA AGENCY INFLAMMATOR ON RED Y POLYARTHROP ATHIES 78534 URINARY 07-09-2014 [facility] HESITANCY PRIMARY CARE 4271 PAROXYSMAL 06-22-2014 [facility] VENTRICULAR SERV FOUNDATION TACHYCARDIA V5331 FITTING AND 06-22-2014 [facility] ADJUSTMENT SERV OF CARDIAC FOUNDATION PACEMAKER V707 EXAMINATION 06-22-2014 [facility]ICAL OF SERV PARTICIPANT FOUNDATION IN CLINICAL TRIAL 85957 OTHER 06-21-2014 [facility] PREMATURE SERV BEATS FOUNDATION 47826 NONSPECIFIC 06-21-2014 [facility] ABNORMAL SERV ELECTROCARD FOUNDATION IOGRAM 71399 DIAB 06-18-2014 [facility] TYPE II/UNS TYPE UNCNTRL 75101 ACUT PR 06-18-2014 [facility] IAL INFARCT INIT EPIS CARE 85655 ULCER OF 06-18-2014 [facility] V4589 OTHER 06-18-2014 [facility] POSTSURGICA SERV L STATUS FOUNDATION OTHER 26173 DIAB W/O 06-17-2014 [place] [facility] MENTION SERV COMP TYPE I FOUNDATION [JUV TYPE] UNCNTRL 65183 ACUT 06-17-2014 [facility] MYOCARD [facility] INFARCT UNS SERVICE SITE EPIS CARE UNS 84580 ACUTE 06-17-2014 [facility] P UNSPEC SITE INIT EPIS CARE 5180 PULMONARY 06-17-2014 [place] [facility] COLLAPSE SERV FOUNDATION 7850 UNSPECIFIED 06-17-2014 [place] [facility] TACHYCARDIA IMAGING ASS 88578 PRECORDIAL 06-17-2014 [facility] PAIN AMBULANCE SERVICE 3572 POLYNEUROPA 06-10-2014 [facility] IN HEALTH DIABETES AGENCY 31241 ULCER OF 06-10-2014 [facility] OTHER PART HEALTH OF FOOT AGENCY 03774 MUSCLE 06-10-2014 [facility] WEAKNESS HEALTH (GENERALIZE AGENCY D) 6892 CELLULITIS 04-14-2014 [facility] AND ABSCESS PRIMARY OF LEG CARE EXCEPT FOOT 69706 INSOMNIA 03-19-2014 [facility] UNSPECIFIED PRIMARY CARE 11726 UNSPECIFIED 01-22-2014 [facility] [place] [address] ULCER OF 01-22-2014 [facility]F [facility] INC V571 OTHER 01-22-2014 [facility] PHYSICAL [facility] THERAPY INC 8911 OPEN WOUND 01-19-2014 [facility] OF KNEE LEG PRIMARY AND ANKLE CARE COMPLICATED 586 UNSPECIFIED 08-27-2013 [facility] RENAL REGIONAL FAILURE MEDICAL CE 7038 OTHER 08-27-2013 [facility] SPECIFIED PRIMARY DISEASE OF CARE NAIL 54745 OLECRANON 08-01-2013 [facility] BURSITIS PRIMARY CARE 27475 GEN 07-22-2013 [facility] HOME SIS MEDICAL INVOLVING EQUIPME MULTIPLE SITES 39289 GENERALIZED 05-22-2013 [facility]RO SIS UNSPECIFIED SITE 60990 ULCER OF 03-17-2013 [facility] HEEL AND PRIMARY MIDFOOT CARE 7812 ABNORMALITY 03-17-2013 [facility] OF GAIT PRIMARY CARE 19292 OSTEOARTHRO 02-20-2013 [facility] [place] SIS UNSPEC ORTHOPAEDIC WHETHER S PLC GEN/LOC LOWER LEG V0481 NEED 02-12-2013 [facility] PROPHYLACTI PRIMARY C CARE VACCINATION &INOCULATIO N FLU 00312 PAIN IN 11-15-2012 [facility] JOINT, PRIMARY SHOULDER CARE REGION 75758 PAIN IN 11-15-2012 [facility] JOINT, PRIMARY UPPER ARM CARE 33723 UNSPEC 10-08-2012 [facility] POLYAR[facility]ROP C[facility] OF ATHY/POLYAR LEXINGTO THRITIS SITE UNSPEC 22571 DIAB 09-20-2012 [facility] W/NEURO REGIONAL MANIFESTS MEDICAL CE TYPE II/UNS TYPE UNCNTRL 4871 INFLUENZA 05-27-2012 [facility] [place] WITH OTHER RESPIRATORY MANIFESTATI ONS 07505 FEVER 02-02-2013 [facility] UNSPECIFIED K[place]O 4660 ACUTE 04-25-2012 [facility] [place] BRONCHITIS 4658 ACUTE URIS 02-28-2012 [facility] [place] OF OTHER MULTIPLE SITES 89937 PRESSURE 02-28-2012 [facility] [place] ULCER HEEL 7993 UNSPECIFIED 01-19-2012 [facility] 84409 OTHER 07-24-2011 [facility] [place] URINARY INCONTINENC E 05713 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 7291 UNSPECIFIED 12-23-2010 [facility] [place] JOSE MARCHPIrenaSKaleigh MYOSITIS 15722 UNSPECIFIED 11-30-2010 [place] LAPAROSCOPI OSTEOMYELIT C & IS ANKLE ADVANCED S AND FOOT 9961 [facility] COMP 11-30-2010 [place] OTH LAPAROSCOPI VASCULAR C & DEVICE [place]VANC[place] S IMPLANT&[place] [address] FLUSHING 09-20-2010 [facility] [place] [address] PRESSURE 06-14-2010 ROSY Nelson ULCER ANDRE VALDES, UNSPECIFIED LLC SITE 89394 ACUTE 06-14-2010 ROSY Nelson OSTEOMYELIT ANDRE VALDES, IS SITE LLC UNSPECIFIED 87141 ACUTE 06-02-2010 ROSY Nelson OSTEOMYELIT ANDRE VALDES, IS, ANKLE LLC AND FOOT 2859 UNSPECIFIED 05-19-2010 [facility] 56199 UNSPECIFIED 05-19-2010 [facility] CELLULITIS HOME HEALTH AND INC ABSCESS OF TOE 29430 PRESSURE 05-19-2010 [facility] ULCER SOLUTIONS BUTTOCK 71304 UNSPECIFIED 05-17-2010 [place] LAPAROSCOPI OSTEOMYELIT C & IS OTHER ADVANCED S SPECIFIED SITES 88858 CHEST PAIN 05-17-2010 [place] UNSPECIFIED HEART & VASCULAR PH 6829 CELLULITIS 05-16-2010 [facility] [place] AND ABSCESS IMAGING PSC OF UNSPECIFIED SITE 27391 UNSPECIFIED 05-16-2010 ROSY POWELL MD, OSTEOMYELIT LLC IS SITE UNSPECIFIED 5939 UNSPECIFIED 05-13-2010 [facility] [place] DISORDER IMAGING PSC OF KIDNEY AND URETER 72032 OTHER CHEST 05-13-2010 [place] PAIN LAPAROSCOPI C & ADVANCED S 39300 OTHER 05-13-2010 [facility]TOMS [place] INVOLVING KIDNEY CARE URINARY SYSTEM 69599 PRESSURE 05-12-2010 [facility] LOWER [facility] [place] [address] PRESSURE 05-12-2010 [facility] U[facility]ER STAGE REGIONAL II MEDICAL CE 7851 PALPITATION 04-19-2010 [place] S HEART & VASCULAR PH 3569 UNSPEC 04-14-2010 [facility] HEREDIT&IDI FAMILY OPATHIC PRACTICE CL PERIPHERAL NEUROPATHY 00001 DIAB W/O 01-24-2010 [facility] COMP TYPE I FAMILY [JUV] NOT PRACTICE CL STATED UNCNTRL 7801 HALLUCINATI 12-23-2009 [facility] ONS EMERGENCY PHYSICIANS 6827 CELLULITIS 11-02-2009 [facility] AND ABSCESS EMERGENCY OF FOOT PHYSICIANS EXCEPT TOES 98077 OSTEOARTHRO 11-02-2009 [facility] [place] SIS UNSPEC IMAGING PSC WHETHER GEN/LOC ANK&FOOT 9174 FOOT&TOE 11-02-2009 [facility] INSECT BITE EMERGENCY PHYSICIANS NONVENOMOUS W/O MENTION INF 9175 FOOT AND 11-02-2009 [facility] TOE INSECT REGIONAL BITE MEDICAL NONVENOMOUS CENT INFECTED E0008 OTHER 11-02-2009 [facility] EXTERNAL REGIONAL CAUSE MEDICAL STATUS CENT E8490 PLACE OF 11-02-2009 [facility] OCCURRENCE, EMERGENCY HOME PHYSICIANS E9064 BITE OF 11-02-2009 [facility] NONVENOMOUS EMERGENCY ARTHROPOD PHYSICIANS 3670 HYPERMETROP 10-21-2009 [facility] PTON, JERMAINE 63170 OTHER 10-05-2009 [facility] 53984 PAIN IN 09-07-2009 [place] JOINT PAIN PELVIC PHYSICIANS REGION AND PSC THIGH 64376 PAIN IN 09-07-2009 [place] JOINT, PAIN LOWER LEG PHYSICIANS PSC 7242 LUMBAGO 09-07-2009 [place] PAIN PHYSICIANS PSC 7410 SPINA 08-03-2009 BHAGRATH, BIFIDA WITH KSENIA S HYDROCEPHAL US 7804 DIZZINESS 07-30-2009 [place] AND PAIN GIDDINESS PHYSICIANS PSC 86590 POLYARTICUL 07-08-2009 [place] AR JUVENILE PAIN RA CHRONIC PHYSICIANS OR PSC UNSPECIFIED 7852 UNDIAGNOSED 07-01-2009 [place] CARDIAC HEART & [facility] VASCULAR PHYSICIANS, INC 51882 PAIN IN 11-09-2008 [facility], L HOME MULTIPLE MEDICAL SITES SUPPLIES INC 2689 UNSPECIFIED 10-02-2008 [facility] VITAMIN D REGIONAL DEFICIENCY MEDICAL CENT 5852 CHRONIC 10-02-2008 [facility] KIDNEY REGIONAL DISEASE MEDICAL STAGE II CENT (MILD) 95931 HYPERTROPHY 10-02-2008 [facility] PROSTATE REGIONAL W/O UR OBST MEDICAL & OTH LUTS CENT 7910 PROTEINURIA 10-02-2008 [facility] 7231 CERVICALGIA 07-08-2008 [facility] PHYSIC[facility]ANS PSC 01531 OSTEOARTHRO 2008 [facility] S UNSPEC ORTHOPAEDIC GEN/LOC S PLC PELV REGION&THIG H 3829 UNSPECIFIED 05-28-2008 [facility] 4659 ACUTE URIS 04-28-2008 [place] [facility] UNSPECIFIED HOSP SITE 7213 LUMBOSACRAL 04-02-2008 [facility] SERVICES SPONDYLOSIS 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 7244 THORACIC/TY 04-02-2008 [facility] MBOSACRAL SERVICES NEURITIS/RA PSC DICULITIS UNSPEC 8472 LUMBAR 04-02-2008 [facility]ANS SPRAIN AND SERVICES STRAIN PSC 6828 CELLULITIS 03-03-2008 [place] AND ABSCESS [facility] OF OTHER HOSP SPECIFIED SITE 58168 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 99790 SPINAL 02-26-2008 [facility]ANS STENOSIS OF SERVICES THORACIC PSC REGION 7241 PAIN IN 02-26-2008 [facility] THORACIC SERVICES SPINE PSC 47695 CLOS FX 02-26-2008 PHYS[facility]ANS T7-T12 SERVICES LEVEL PSC W/UNSPEC SPINAL CORD INJURY 03542 SECONDARY 02-25-2008 [facility] HYPERPARATH NEPHROLOGY YROIDISM CONSULTANTS 9531 INJURY TO 02-11-2008 [facility]ANS DORSAL SERVICES NERVE ROOT PSC 71284 OSTEOARTHRO 01-14-2008 [facility]ANS S UNSPEC SERVICES GEN/LOC OTH PSC SPEC SITES 65110 DISPLCMT 01-14-2008 [facility] LUMBAR SERVICES INTERVERT PSC DISC W/O MYELOPATHY 29943 SPINAL STEN 01-14-2008 [facility] LUMB REG SERVICES W/O PSC NEUROGENIC CLAUDICATIO N 08525 SCOLIOSIS , 01-14-2008 [facility] IDIOPATHIC SERVICES PSC 7246 DISORDERS 12-25-2007 [facility] OF SACRUM SERVICES PSC 7245 UNSPECIFIED 12-21-2007 [facility] BACKACHE IMAGING PSC 96653 ABDOMINAL 12-21-2007 [facility] PAIN OTHER REGIONAL SPECIFIED MEDICAL SITE CENT 3970 DISEASES OF 11-18-2007 [place], TRICUSPID ZE C VALVE 73496 PRIMARY LOC 11-13-2007 [facility] REGIONAL OSTEOARTHRO MEDICAL SIS PELVIC CENT REGION&THIG H 20584 PRIMARY 11-13-2007 [facility] LOCALIZED REGIONAL OSTEOARTHRO MEDICAL SIS LOWER CENT LEG 7176 LOOSE BODY 11-13-2007 [facility]ENT 42987 DISORDER OF 11-13-2007 [facility] BONE AND IMAGING PSC CARTILAGE UNSPECIFIED 2818 ANEMIA 09-26-2007 [facility] W/OTHER PLLC SPEC NUTRITIONAL DEFIC 4778 ALLERGIC 09-26-2007 [facility] DUE TO PLLC OTHER ALLERGEN 44097 UNSPECIFIED 09-26-2007 [facility] ABSCESS OF FINGER 57734 NOCTURIA 09-26-2007 [facility] MEDICAL CENT 14623 VOMITING 09-13-2007 [facility] PHYSICIAN INC 64004 OSTEOARTHRO 09-04-2007 [facility] S UNSPEC NEPHROLOGY WHETHER CONSULTANTS GEN/LOC UNSPEC SITE 04786 ELEVATED 09-04-2007 [facility] PROSTATE NEPHROLOGY SPECIFIC CONSULTANTS ANTIGEN 86906 UNSPECIFIED 06-24-2007 [facility] CONSTIPATI MEDICAL N CENT 22322 LOSS OF 06-24-2007 [facility] CENT 50087 URINARY 06-24-2007 [facility] MEDICAL CENT V7644 SPECIAL 06-24-2007 [facility] MALIGNANT MEDICAL NEOPLASM OF CENT PROSTATE 4774 ALLERGIC 10-31-2006 [facility] CAUSE PLLC UNSPECIFIED Medications Na ND Rx Da Fi Fi Am Da Di Ph RX Ph St me C No te ll ll ou ys ag ar # ys at rm s nt no ma ic us Or Da si cy ia de te s n re d ST 00 08 11 0 30 30 ME 15 GA Ac OO 53 -3 -2 0. D 34 IN ti L 61 1- 5- 00 CA 30 EY ve SO 06 20 20 0 RE 15 FT 41 17 17 PR EN 0 PH CH ER AR AE MA L 25 CY S 0 MG LL C SO FT GE L 00 08 11 0 30 30 ME 15 GA Ac TA 90 -3 -2 0. D 34 IN ti PR 40 1- 5- 00 CA 30 EY ve N 52 20 20 0 RE 14 C 38 17 17 PR 50 0 PH CH 0 AR AE MG MA L CY S TA BL LL ET C SE 00 08 11 0 12 30 ME 15 GA Ac NN 90 -3 -2 00 D 34 IN ti A- 46 1- 5- .0 CA 30 EY ve LA 52 20 20 00 RE 16 X 26 17 17 PR 8. 1 PH CH 6 AR AE MG MA L CY S TA BL LL ET C 00 08 11 0 30 30 ME 15 GA Ac PI 90 -3 -2 0. D 31 IN ti RI 46 1- 0- 00 CA 53 EY ve N 28 20 20 0 RE 70 81 88 17 17 PR 9 PH CH MG AR AE MA L CH CY S EW AB LL LE C TA BL ET 00 08 11 0 30 30 ME 15 GA Ac TA 53 -3 -1 0. D 28 IN ti PR 63 1- 5- 00 CA 72 EY ve N 79 20 20 0 RE 37 D3 00 17 17 PR 1 PH CH 2, AR AE 00 MA L 0 CY S UN IT LL C SO FT GE L TA 00 08 11 0 30 30 ME 15 GA Ac B- 90 -3 -1 0. D 28 IN ti A- 40 1- 5- 00 CA 72 EY ve 53 20 20 0 RE 36 TE 08 17 17 PR 0 PH CH TA AR AE BL MA L ET CY S LL C FE 00 08 11 0 30 30 ME 15 GA Ac RR 53 -3 -1 0. D 28 IN ti OU 61 1- 5- 00 CA 72 EY ve S 00 20 20 0 RE 35 CLARK 90 17 17 PR LF 1 PH CH AT AR AE E MA L 32 CY S 5 MG LL C TA BL ET LO 00 08 11 0 30 30 ME 15 GA Ac RA 78 -3 -0 0. D 23 IN ti TA 15 1- 4- 00 CA 05 EY ve DI 07 20 20 0 RE 03 NE 70 17 17 PR 1 PH CH 10 AR AE MA L MG CY S TA LL BL C ET SE 00 08 10 0 12 30 ME 15 GA Ac NN 90 -3 -2 00 D 18 IN ti A- 46 1- 7- .0 CA 77 EY ve LA 52 20 20 00 RE 76 X 26 17 17 PR 8. 1 PH CH 6 AR AE MG MA L CY S TA BL LL ET C 00 08 10 0 30 30 ME 15 GA Ac TA 90 -3 -2 0. D 18 IN ti PR 40 1- 7- 00 CA 77 EY ve N 52 20 20 0 RE 74 C 38 17 17 PR 50 0 PH CH 0 AR AE MG MA L CY S TA BL LL ET C ST 00 08 10 0 30 30 ME 15 GA Ac OO 53 -3 -2 0. D 18 IN ti L 61 1- 7- 00 CA 77 EY ve SO 06 20 20 0 RE 75 FT 41 17 17 PR EN 0 PH CH ER AR AE MA L 25 CY S 0 MG LL C SO FT GE L 00 08 10 0 30 30 ME 15 GA Ac PI 90 -3 -2 0. D 16 IN ti RI 46 1- 3- 00 CA 98 EY ve N 28 20 20 0 RE 63 81 88 17 17 PR 9 PH CH MG AR AE MA L CH CY S EW AB LL LE C TA BL ET 00 08 10 0 30 30 ME 15 GA Ac TA 53 -3 -1 0. D 12 IN ti PR 63 1- 6- 00 CA 12 EY ve N 79 20 20 0 RE 14 D3 00 17 17 PR 1 PH CH 2, AR AE 00 MA L 0 CY S UN IT LL C SO FT GE L FE 00 08 10 0 30 30 ME 15 GA Ac RR 53 -3 -1 0. D 12 IN ti OU 61 1- 6- 00 CA 12 EY ve S 00 20 20 0 RE 10 CLARK 90 17 17 PR LF 1 PH CH AT AR AE E MA L 32 CY S 5 MG LL C TA BL ET TA 00 08 10 0 30 30 ME 15 GA Ac B- 90 -3 -1 0. D 12 IN ti A- 40 1- 6- CA 12 EY ve 53 20 20 0 RE 11 TE 08 17 17 PR 0 PH CH TA AR AE BL MA L ET CY S LL C LO 00 08 10 0 30 30 ME 15 GA Ac RA 78 -3 -0 0. D 07 IN ti TA 15 1- 6- 00 CA 11 EY ve DI 07 20 20 0 RE 54 NE 70 17 17 PR 1 PH CH 10 AR AE MA L MG CY S TA LL BL C ET ST 00 08 09 0 30 30 ME 14 GA Ac OO 53 -3 -2 0. D 87 IN ti L 61 1- 7- 00 CA 57 EY ve SO 06 20 20 0 RE 82 FT 41 17 17 PR EN 0 PH CH ER AR AE MA L 25 CY S 0 MG LL C SO FT GE L SE 00 08 09 0 12 30 ME 14 GA Ac NN 90 -3 -2 00 D 87 IN ti A- 46 1- 7- .0 CA 57 EY ve LA 52 20 20 00 RE 99 X 26 17 17 PR 8. 1 PH CH 6 AR AE MG MA L CY S TA BL LL ET C 00 08 09 0 30 30 ME 14 GA Ac PI 90 -3 -2 0. D 87 IN ti RI 46 1- 7- 00 CA 57 EY ve N 28 20 20 0 RE 76 81 88 17 17 PR 9 PH CH MG AR AE MA L CH CY S EW AB LL LE C TA BL ET 00 08 09 0 13 13 ME 14 GA Ac TA 90 -3 -2 0. D 87 IN ti PR 40 1- 7- 00 CA 57 EY ve N 52 20 20 0 RE 80 C 38 17 17 PR 50 0 PH CH 0 AR AE MG MA L CY S TA BL LL ET C TA 00 08 09 0 30 30 ME 14 GA Ac B- 90 -3 -1 0. D 87 IN ti A- 40 1- 8- 00 CA 57 EY ve 53 20 20 0 RE 93 TE 08 17 17 PR 0 PH CH TA AR AE BL MA L ET CY S LL C RO 00 08 09 0 15 30 ME 14 GA Ac BA 90 -3 -1 00 D 87 IN ti FE 40 1- 8- .0 CA 57 EY ve N- 05 20 20 00 RE 97 DM 31 17 17 PR 6 PH CH SY AR AE RU MA L P CY S LL C FE 00 08 09 0 30 30 ME 14 GA Ac RR 53 -3 -1 0. D 87 IN ti OU 61 1- 8- 00 CA 57 EY ve S 00 20 20 0 RE 84 CLARK 90 17 17 PR LF 1 PH CH AT AR AE E MA L 32 CY S 5 MG LL C TA BL ET 00 08 09 0 30 30 ME 14 GA Ac TA 53 -3 -1 0. D 97 IN ti PR 63 1- 8- 00 CA 42 EY ve N 79 20 20 0 RE 76 D3 00 17 17 PR 1 PH CH 2, AR AE 00 MA L 0 CY S UN IT LL C SO FT GE L EN 00 09 09 0 13 1 ME 14 GA Ac EM 53 -1 -1 30 D 97 IN ti A 67 8- 8- .0 CA 43 EY ve 41 20 20 00 RE 40 55 17 17 PR 1 PH CH AR AE MA L CY S LL C LO 00 08 09 0 30 30 ME 14 GA Ac RA 78 -3 -0 0. D 87 IN ti TA 15 1- 8- 00 CA 57 EY ve DI 07 20 20 0 RE 87 NE 70 17 17 PR 1 PH CH 10 AR AE MA L MG CY S TA LL BL C ET 00 08 08 0 30 30 ME 14 GA Ac TA 90 -2 -2 0. D 83 IN ti PR 40 5- 5- 00 CA 93 EY ve N 52 20 20 0 RE 36 C 38 17 17 PR 50 0 PH CH 0 AR AE MG MA L CY S TA BL LL ET C 00 06 08 0 30 30 ME 14 GA Ac PI 90 -2 -2 0. D 81 IN ti RI 46 0- 1- 00 CA 39 EY ve N 28 20 20 0 RE 76 81 88 17 17 PR 9 PH CH MG AR AE MA L CH CY S EW AB LL LE C TA BL ET 00 06 08 0 30 30 ME 14 GA Ac TA 53 -2 -1 0. D 78 IN ti PR 63 0- 8- 00 CA 56 EY ve N 79 20 20 0 RE 78 D3 00 17 17 PR 1 PH CH 2, AR AE 00 MA L 0 CY S UN IT LL C SO FT GE L BI 00 06 08 0 15 30 ME 14 GA Ac SC 90 -2 -1 0. D 44 IN ti OL 45 0- 8- 00 CA 02 EY ve AX 05 20 20 0 RE 06 81 17 17 PR 10 2 PH CH AR AE MG MA L CY S CLARK PP LL OS C IT OR Y FE 00 06 08 0 30 30 ME 14 GA Ac RR 53 -2 -1 0. D 77 IN ti OU 61 0- 7- 00 CA 70 EY ve S 00 20 20 0 RE 48 CLARK 90 17 17 PR LF 1 PH CH AT AR AE E MA L 32 CY S 5 MG LL C TA BL ET SE 00 06 08 0 12 30 ME 14 GA Ac NN 90 -2 -1 00 D 77 IN ti A- 46 0- 7- .0 CA 70 EY ve LA 52 20 20 00 RE 50 X 26 17 17 PR 8. 1 PH CH 6 AR AE MG MA L CY S TA BL LL ET C ST 00 06 08 0 30 30 ME 14 GA Ac OO 53 -2 -1 0. D 77 IN ti L 61 0- 7- 00 CA 70 EY ve SO 06 20 20 0 RE 49 FT 41 17 17 PR EN 0 PH CH ER AR AE MA L 25 CY S 0 MG LL C SO FT GE L TA 00 06 08 0 30 30 ME 14 GA Ac B- 90 -2 -1 0. D 76 IN ti A- 40 0- 4- 00 CA 87 EY ve 53 20 20 0 RE 37 TE 08 17 17 PR 0 PH CH TA AR AE BL MA L ET CY S LL C LO 00 06 08 0 30 30 ME 14 GA Ac RA 78 -2 -1 0. D 74 IN ti TA 15 0- 2- 00 CA 04 EY ve DI 07 20 20 0 RE 56 NE 70 17 17 PR 1 PH CH 10 AR AE MA L MG CY S TA LL BL C ET RO 00 06 08 0 15 30 ME 14 GA Ac BA 90 -2 -0 00 D 74 IN ti FE 40 0- 9- .0 CA 72 EY ve N- 05 20 20 00 RE 35 DM 31 17 17 PR 6 PH CH SY AR AE RU MA L P CY S LL C FE 00 06 07 0 30 30 ME 14 GA Ac RR 53 -2 -1 0. D 60 IN ti OU 61 0- 8- 00 CA 24 EY ve S 00 20 20 0 RE 56 CLARK 90 17 17 PR LF 1 PH CH AT AR AE E MA L 32 CY S 5 MG LL C TA BL ET SE 00 06 07 0 12 30 ME 14 GA Ac NN 90 -2 -1 00 D 60 IN ti A- 46 0- 8- .0 CA 24 EY ve LA 52 20 20 00 RE 60 X 26 17 17 PR 8. 1 PH CH 6 AR AE MG MA L CY S TA BL LL ET C 00 06 07 0 30 30 ME 14 GA Ac PI 90 -2 -1 0. D 60 IN ti RI 46 0- 8- 00 CA 24 EY ve N 28 20 20 0 RE 55 81 88 17 17 PR 9 PH CH MG AR AE MA L CH CY S EW AB LL LE C TA BL ET TA 00 06 07 0 30 30 ME 14 GA Ac B- 90 -2 -1 0. D 60 IN ti A- 40 0- 8- 00 CA 24 EY ve 53 20 20 0 RE 59 TE 08 17 17 PR 0 PH CH TA AR AE BL MA L ET CY S LL C LO 00 06 07 0 30 30 ME 14 GA Ac RA 78 -2 -1 0. D 60 IN ti TA 15 0- 8- 00 CA 24 EY ve DI 07 20 20 0 RE 58 NE 70 17 17 PR 1 PH CH 10 AR AE MA L MG CY S TA LL BL C ET ST 00 06 07 0 30 30 ME 14 GA Ac OO 53 -2 -1 0. D 60 IN ti L 61 0- 8- 00 CA 24 EY ve SO 06 20 20 0 RE 57 FT 41 17 17 PR EN 0 PH CH ER AR AE MA L 25 CY S 0 MG LL C SO FT GE L 00 06 06 0 30 30 ME 14 GA Ac TA 53 -2 -2 0. D 44 IN ti PR 63 0- 0- 00 CA 02 EY ve N 79 20 20 0 RE 04 D3 00 17 17 PR 1 PH CH 2, AR AE 00 MA L 0 CY S UN IT LL C SO FT GE L RO 00 06 06 0 15 30 ME 14 GA Ac BA 90 -2 -2 00 D 44 IN ti FE 40 0- 0- .0 CA 02 EY ve N- 05 20 20 00 RE 15 DM 31 17 17 PR 6 PH CH SY AR AE RU MA L P CY S LL C 00 06 06 0 30 30 ME 14 GA Ac PI 90 -2 -2 0. D 44 IN ti RI 46 0- 0- 00 CA 01 EY ve N 28 20 20 0 RE 76 81 88 17 17 PR 9 PH CH MG AR AE MA L CH CY S EW AB LL LE C TA BL ET FE 00 06 06 0 30 30 ME 14 GA Ac RR 53 -2 -2 0. D 44 IN ti OU 61 0- 0- 00 CA 01 EY ve S 00 20 20 0 RE 81 CLARK 90 17 17 PR LF 1 PH CH AT AR AE E MA L 32 CY S 5 MG LL C TA BL ET SE 00 06 06 0 12 30 ME 14 GA Ac NN 90 -2 -2 00 D 44 IN ti A- 46 0- 0- .0 CA 02 EY ve LA 52 20 20 00 RE 03 X 26 17 17 PR 8. 1 PH CH 6 AR AE MG MA L CY S TA BL LL ET C MA 00 06 06 0 60 30 ME 14 GA Ac PA 90 -2 -2 0. D 44 IN ti P 41 0- 0- 00 CA 02 EY ve 50 98 20 20 0 RE 05 0 86 17 17 PR MG 1 PH CH AR AE TA MA L BL CY S ET LL C ST 00 06 06 0 30 30 ME 14 GA Ac OO 53 -2 -2 0. D 44 IN ti L 61 0- 0- 00 CA 01 EY ve SO 06 20 20 0 RE 83 FT 41 17 17 PR EN 0 PH CH ER AR AE MA L 25 CY S 0 MG LL C SO FT GE L LO 00 06 06 0 30 30 ME 14 GA Ac RA 78 -2 -2 0. D 44 IN ti TA 15 0- 0- 00 CA 01 EY ve DI 07 20 20 0 RE 85 NE 70 17 17 PR 1 PH CH 10 AR AE MA L MG CY S TA LL BL C ET TA 00 06 06 0 30 30 ME 14 GA Ac B- 90 -2 -2 0. D 44 IN ti A- 40 0- 0- 00 CA 01 EY ve 53 20 20 0 RE 86 TE 08 17 17 PR 0 PH CH TA AR AE BL MA L ET CY S LL C BI 00 05 06 0 12 12 ME 14 GA Ac SC 90 -2 -1 0. D 26 IN ti OL 45 6- 2- 00 CA 89 EY ve AX 05 20 20 0 RE 53 81 17 17 PR 10 2 PH CH AR AE MG MA L CY S CLARK PP LL OS C IT OR Y LO 00 03 05 0 30 30 ME 14 GA Ac RA 78 -1 -1 0. D 21 IN ti TA 15 9- 9- 00 CA 63 EY ve DI 07 20 20 0 RE 53 NE 70 17 17 PR 1 PH CH 10 AR AE MA L MG CY S TA LL BL C ET SE 00 03 05 0 12 30 ME 14 GA Ac NN 90 -1 -1 00 D 19 IN ti A- 46 9- 6- .0 CA 54 EY ve LA 52 20 20 00 RE 69 X 26 17 17 PR 8. 1 PH CH 6 AR AE MG MA L CY S TA BL LL ET C 00 03 05 0 30 30 ME 14 GA Ac TA 90 -1 -1 0. D 19 IN ti PR 45 9- 5- 00 CA 90 EY ve N 04 20 20 0 RE 88 AN 26 17 17 PR D 0 PH CH PR AR AE NE MA L RA CY S LS LL TA C BL ET 00 03 05 0 30 30 ME 14 GA Ac PI 53 -1 -1 0. D 18 IN ti RI 61 9- 2- 00 CA 24 EY ve N 00 20 20 0 RE 73 EC 44 17 17 PR 1 PH CH 81 AR AE MA L MG CY S TA LL BL C ET ST 00 02 05 0 30 30 ME 14 GA Ac OO 53 -2 -1 0. D 18 IN ti L 61 3- 2- 00 CA 24 EY ve SO 06 20 20 0 RE 76 FT 41 17 17 PR EN 0 PH CH ER AR AE MA L 25 CY S 0 MG LL C SO FT GE L 00 03 05 0 30 30 ME 14 GA Ac TA 53 -1 -1 0. D 18 IN ti PR 63 9- 2- 00 CA 24 EY ve N 79 20 20 0 RE 82 D3 00 17 17 PR 1 PH CH 2, AR AE 00 MA L 0 CY S UN IT LL C SO FT GE L BI 00 05 05 0 15 15 ME 14 GA Ac SC 90 -1 -1 0. D 18 IN ti OL 45 0- 0- 00 CA 07 EY ve AX 05 20 20 0 RE 34 81 17 17 PR 10 2 PH CH AR AE MG MA L CY S CLARK PP LL OS C IT OR Y FE 00 03 05 0 30 30 ME 14 GA Ac RR 53 -1 -0 0. D 14 IN ti OU 61 9- 5- 00 CA 67 EY ve S 00 20 20 0 RE 52 CLARK 90 17 17 PR LF 1 PH CH AT AR AE E MA L 32 CY S 5 MG LL C TA BL ET RO 00 04 05 0 15 30 ME 14 GA Ac BA 90 -0 -0 00 D 10 IN ti FE 40 7- 5- .0 CA 68 EY ve N- 05 20 20 00 RE 31 DM 31 17 17 PR 6 PH CH SY AR AE RU MA L P CY S LL C LO 45 03 04 0 30 30 ME 14 GA Ac RA 80 -1 -2 0. D 06 IN ti TA 20 9- 0- 00 CA 95 EY ve DI 65 20 20 0 RE 55 NE 08 17 17 PR 7 PH CH 10 AR AE MA L MG CY S TA LL BL C ET SE 00 03 04 0 12 30 ME 14 GA Ac NN 90 -1 -1 00 D 05 IN ti A- 46 9- 7- .0 CA 07 EY ve LA 52 20 20 00 RE 52 X 26 17 17 PR 8. 1 PH CH 6 AR AE MG MA L CY S TA BL LL ET C ST 00 02 04 0 30 30 ME 14 GA Ac OO 53 -2 -1 0. D 03 IN ti L 61 3- 3- 00 CA 60 EY ve SO 06 20 20 0 RE 86 FT 41 17 17 PR EN 0 PH CH ER AR AE MA L 25 CY S 0 MG LL C SO FT GE L 00 03 04 0 30 30 ME 14 GA Ac PI 53 -1 -1 0. D 03 IN ti RI 61 9- 3- 00 CA 60 EY ve N 00 20 20 0 RE 85 EC 44 17 17 PR 1 PH CH 81 AR AE MA L MG CY S TA LL BL C ET 00 03 04 0 30 30 ME 14 GA Ac TA 53 -1 -1 0. D 03 IN ti PR 63 9- 3- 00 CA 60 EY ve N 79 20 20 0 RE 88 D3 00 17 17 PR 1 PH CH 2, AR AE 00 MA L 0 CY S UN IT LL C SO FT GE L 00 03 04 0 30 30 ME 14 GA Ac TA 90 -1 -0 0. D 00 IN ti PR 45 9- 7- 00 CA 93 EY ve N 04 20 20 0 RE 00 AN 26 17 17 PR D 0 PH CH PR AR AE NE MA L RA CY S LS LL TA C BL ET FE 00 03 04 0 30 30 ME 14 GA Ac RR 53 -1 -0 0. D 00 IN ti OU 61 9- 7- 00 CA 92 EY ve S 00 20 20 0 RE 98 CLARK 90 17 17 PR LF 1 PH CH AT AR AE E MA L 32 CY S 5 MG LL C TA BL ET RO 00 04 04 0 15 30 ME 14 GA Ac BA 90 -0 -0 00 D 02 IN ti FE 40 7- 7- .0 CA 15 EY ve N- 05 20 20 00 RE 12 DM 31 17 17 PR 6 PH CH SY AR AE RU MA L P CY S LL C SP 00 02 03 0 30 15 ME 13 GA Ac IR 60 -0 -3 0. D 96 IN ti ON 35 2- 0- 00 CA 66 EY ve OL 76 20 20 0 RE 65 AC 32 17 17 PR TO 1 PH CH NE AR AE MA L 25 CY S MG LL C TA BL ET LO 00 03 03 0 30 30 ME 13 GA Ac RA 78 -1 -2 0. D 92 IN ti TA 15 9- 2- 00 CA 57 EY ve DI 07 20 20 0 RE 96 NE 70 17 17 PR 1 PH CH 10 AR AE MA L MG CY S TA LL BL C ET SE 00 03 03 0 12 30 ME 13 GA Ac NN 90 -1 -2 00 D 92 IN ti A- 46 9- 0- .0 CA 14 EY ve LA 52 20 20 00 RE 20 X 26 17 17 PR 8. 1 PH CH 6 AR AE MG MA L CY S TA BL LL ET C ST 00 02 03 0 30 30 ME 13 GA Ac OO 53 -2 -1 0. D 89 IN ti L 61 3- 5- 00 CA 95 EY ve SO 06 20 20 0 RE 95 FT 41 17 17 PR EN 0 PH CH ER AR AE MA L 25 CY S 0 MG LL C SO FT GE L 00 07 03 0 30 30 ME 13 GA Ac TA 53 -2 -1 0. D 89 IN ti PR 63 5- 5- 00 CA 20 EY ve N 79 20 20 0 RE 80 D3 00 16 17 PR 1 PH CH 2, AR AE 00 MA L 0 CY S UN IT LL C SO FT GE L 00 09 03 0 30 30 ME 13 GA Ac PI 53 -1 -1 0. D 89 IN ti RI 61 9- 5- 00 CA 20 EY ve N 00 20 20 0 RE 76 EC 44 16 17 PR 1 PH CH 81 AR AE MA L MG CY S TA LL BL C ET FE 00 09 03 0 30 30 ME 13 GA Ac RR 53 -1 -1 0. D 86 IN ti OU 61 9- 0- 00 CA 96 EY ve S 00 20 20 0 RE 49 CLARK 90 16 17 PR LF 1 PH CH AT AR AE E MA L 32 CY S 5 MG LL C TA BL ET 00 06 03 0 30 30 ME 13 GA Ac TA 90 -1 -1 0. D 86 IN ti PR 45 0- 0- 00 CA 96 EY ve N 04 20 20 0 RE 51 AN 26 16 17 PR D 0 PH CH PR AR AE NE MA L RA CY S LS LL TA C BL ET LO 00 09 02 0 30 30 ME 13 GA Ac RA 78 -0 -2 0. D 77 IN ti TA 15 1- 1- 00 CA 64 EY ve DI 07 20 20 0 RE 76 NE 70 16 17 PR 1 PH CH 10 AR AE MA L MG CY S TA LL BL C ET 00 09 02 0 30 30 ME 13 GA Ac PI 53 -1 -1 0. D 74 IN ti RI 61 9- 4- 00 CA 04 EY ve N 00 20 20 0 RE 51 EC 44 16 17 PR 1 PH CH 81 AR AE MA L MG CY S TA LL BL C ET 00 07 02 0 30 30 ME 13 GA Ac TA 53 -2 -1 0. D 74 IN ti PR 63 5- 4- 00 CA 04 EY ve N 79 20 20 0 RE 52 D3 00 16 17 PR 1 PH CH 2, AR AE 00 MA L 0 CY S UN IT LL C SO FT GE L ST 00 02 02 0 30 30 ME 13 GA Ac OO 53 -2 -1 0. D 73 IN ti L 61 3- 3- 00 CA 36 EY ve SO 06 20 20 0 RE 84 FT 41 16 17 PR EN 0 PH CH ER AR AE MA L 25 CY S 0 MG LL C SO FT GE L 00 06 02 0 30 30 ME 13 GA Ac TA 90 -1 -1 0. D 72 IN ti PR 45 0- 0- 00 CA 74 EY ve N 04 20 20 0 RE 29 AN 26 16 17 PR D 0 PH CH PR AR AE NE MA L RA CY S LS LL TA C BL ET FE 00 09 02 0 30 30 ME 13 GA Ac RR 90 -1 -0 0. D 72 IN ti OU 47 9- 9- 00 CA 08 EY ve S 59 20 20 0 RE 92 CLARK 18 16 17 PR LF 0 PH CH AT AR AE E MA L 32 CY S 5 MG LL C TA BL ET SE 00 09 02 0 12 30 ME 13 GA Ac NN 90 -1 -0 00 D 71 IN ti A 46 9- 7- .0 CA 32 EY ve 8. 43 20 20 00 RE 82 6 48 16 17 PR MG 0 PH CH AR AE TA MA L BL CY S ET LL C BI 00 09 02 0 15 15 ME 13 GA Ac SC 90 -1 -0 0. D 70 IN ti OL 45 9- 6- 00 CA 96 EY ve AX 05 20 20 0 RE 91 81 16 17 PR 10 2 PH CH AR AE MG MA L CY S CLARK PP LL OS C IT OR Y LO 00 09 01 0 30 30 ME 13 GA Ac RA 78 -0 -2 0. D 63 IN ti TA 15 1- 3- 00 CA 50 EY ve DI 07 20 20 0 RE 87 NE 70 16 17 PR 1 PH CH 10 AR AE MA L MG CY S TA LL BL C ET 00 09 01 0 30 30 ME 13 GA Ac PI 53 -1 -1 0. D 59 IN ti RI 61 9- 6- 00 CA 87 EY ve N 00 20 20 0 RE 11 EC 44 16 17 PR 1 PH CH 81 AR AE MA L MG CY S TA LL BL C ET 00 07 01 0 30 30 ME 13 GA Ac TA 53 -2 -1 0. D 59 IN ti PR 63 5- 6- 00 CA 87 EY ve N 79 20 20 0 RE 12 D3 00 16 17 PR 1 PH CH 2, AR AE 00 MA L 0 CY S UN IT LL C SO FT GE L ST 00 02 01 0 30 30 ME 13 GA Ac OO 53 -2 -1 0. D 59 IN ti L 61 3- 4- 00 CA 46 EY ve SO 06 20 20 0 RE 94 FT 41 16 17 PR EN 0 PH CH ER AR AE MA L 25 CY S 0 MG LL C SO FT GE L 00 06 01 0 30 30 ME 13 GA Ac TA 90 -1 -1 0. D 59 IN ti PR 45 0- 3- 00 CA 03 EY ve N 04 20 20 0 RE 67 AN 26 16 17 PR D 0 PH CH PR AR AE NE MA L RA CY S LS LL TA C BL ET SE 00 09 01 0 12 30 ME 13 GA Ac NN 90 -1 -1 00 D 58 IN ti A- 46 9- 2- .0 CA 61 EY ve LA 52 20 20 00 RE 97 X 26 16 17 PR 8. 1 PH CH 6 AR AE MG MA L CY S TA BL LL ET C FE 00 09 01 0 30 30 ME 13 GA Ac RR 53 -1 -1 0. D 57 IN ti OU 61 9- 1- 00 CA 54 EY ve S 00 20 20 0 RE 83 CLARK 90 16 17 PR LF 1 PH CH AT AR AE E MA L 32 CY S 5 MG LL C TA BL ET 00 12 01 0 10 1 ME 13 GA Ac TA 90 -1 -1 .0 D 58 IN ti PR 40 5- 0- 00 CA 30 EY ve N 52 20 20 RE 23 C 38 16 17 PR 50 0 PH CH 0 AR AE MG MA L CY S TA BL LL ET C ZI 00 12 12 0 10 1 ME 13 GA Ac NC 90 -1 -3 .0 D 53 IN ti 43 7- 0- 00 CA 28 EY ve GL 19 20 20 RE 54 UC 16 16 16 PR ON 0 PH CH AT AR AE E MA L 50 CY S MG LL C TA BL ET LO 00 09 12 0 30 30 ME 13 GA Ac RA 78 -0 -2 0. D 50 IN ti TA 15 1- 6- 00 CA 21 EY ve DI 07 20 20 0 RE 30 NE 70 16 16 PR 1 PH CH 10 AR AE MA L MG CY S TA LL BL C ET 00 07 12 0 30 30 ME 13 GA Ac TA 53 -2 -1 0. D 45 IN ti PR 63 5- 7- 00 CA 89 EY ve N 79 20 20 0 RE 62 D3 00 16 16 PR 1 PH CH 2, AR AE 00 MA L 0 CY S UN IT LL C SO FT GE L ZI 00 12 12 0 14 14 ME 13 GA Ac NC 90 -1 -1 0. D 46 IN ti 43 7- 7- 00 CA 89 EY ve GL 19 20 20 0 RE 55 UC 16 16 16 PR ON 0 PH CH AT AR AE E MA L 50 CY S MG LL C TA BL ET 00 09 12 0 30 30 ME 13 GA Ac PI 53 -1 -1 0. D 45 IN ti RI 61 9- 7- 00 CA 89 EY ve N 00 20 20 0 RE 61 EC 44 16 16 PR 1 PH CH 81 AR AE MA L MG CY S TA LL BL C ET ST 00 02 12 0 30 30 ME 13 GA Ac OO 53 -2 -1 0. D 45 IN ti L 61 3- 6- 00 CA 28 EY ve SO 06 20 20 0 RE 42 FT 41 16 16 PR EN 0 PH CH ER AR AE MA L 25 CY S 0 MG LL C SO FT GE L 00 12 12 0 30 30 ME 13 GA Ac TA 90 -1 -1 0. D 45 IN ti PR 40 5- 5- 00 CA 69 EY ve N 52 20 20 0 RE 93 C 38 16 16 PR 50 0 PH CH 0 AR AE MG MA L CY S TA BL LL ET C SE 00 09 12 0 12 30 ME 13 GA Ac NN 90 -1 -1 00 D 46 IN ti A- 46 9- 5- .0 CA 00 EY ve LA 52 20 20 00 RE 68 X 26 16 16 PR 8. 1 PH CH 6 AR AE MG MA L CY S TA BL LL ET C 00 06 12 0 30 30 ME 13 GA Ac TA 90 -1 -1 0. D 44 IN ti PR 45 0- 4- 00 CA 20 EY ve N 04 20 20 0 RE 08 AN 26 16 16 PR D 0 PH CH PR AR AE NE MA L RA CY S LS LL TA C BL ET FE 00 09 12 0 30 30 ME 13 GA Ac RR 53 -1 -1 0. D 44 IN ti OU 61 9- 4- 00 CA 97 EY ve S 00 20 20 0 RE 74 CLARK 90 16 16 PR LF 1 PH CH AT AR AE E MA L 32 CY S 5 MG LL C TA BL ET LO 00 09 11 0 30 30 ME 13 GA Ac RA 78 -0 -2 0. D 35 IN ti TA 15 1- 8- 00 CA 75 EY ve DI 07 20 20 0 RE 27 NE 70 16 16 PR 1 PH CH 10 AR AE MA L MG CY S TA LL BL C ET BA 00 11 11 0 28 7 ME 13 GA Ac CI 16 -1 -2 3. D 36 IN ti TR 80 7- 6- 50 CA 23 EY ve AC 02 20 20 0 RE 22 IN 13 16 16 PR -P 1 PH CH OL AR AE YM MA L YX CY S IN LL OI C NT ME NT SE 00 09 11 0 12 30 ME 13 GA Ac NN 90 -1 -2 00 D 32 IN ti A- 46 9- 1- .0 CA 02 EY ve LA 52 20 20 00 RE 30 X 26 16 16 PR 8. 1 PH CH 6 AR AE MG MA L CY S TA BL LL ET C 00 09 11 0 30 30 ME 13 GA Ac PI 53 -1 -1 0. D 30 IN ti RI 61 9- 8- 00 CA 83 EY ve N 00 20 20 0 RE 45 EC 44 16 16 PR 1 PH CH 81 AR AE MA L MG CY S TA LL BL C ET FE 00 09 11 0 30 30 ME 13 GA Ac RR 53 -1 -1 0. D 30 IN ti OU 61 9- 8- 00 CA 83 EY ve S 00 20 20 0 RE 46 CLARK 90 16 16 PR LF 1 PH CH AT AR AE E MA L 32 CY S 5 MG LL C TA BL ET 00 07 11 0 30 30 ME 13 GA Ac TA 53 -2 -1 0. D 30 IN ti PR 63 5- 8- 00 CA 83 EY ve N 79 20 20 0 RE 49 D3 00 16 16 PR 1 PH CH 2, AR AE 00 MA L 0 CY S UN IT LL C SO FT GE L ST 00 02 11 0 30 30 ME 13 GA Ac OO 53 -2 -1 0. D 29 IN ti L 61 3- 7- 00 CA 93 EY ve SO 06 20 20 0 RE 73 FT 41 16 16 PR EN 0 PH CH ER AR AE MA L 25 CY S 0 MG LL C SO FT GE L BA 00 11 11 0 28 14 ME 13 GA Ac CI 16 -1 -1 3. D 31 IN ti TR 80 7- 7- 50 CA 32 EY ve AC 02 20 20 0 RE 58 IN 13 16 16 PR -P 1 PH CH OL AR AE YM MA L YX CY S IN LL OI C NT ME NT 00 06 11 0 30 30 ME 13 GA Ac TA 90 -1 -1 0. D 27 IN ti PR 45 0- 4- 00 CA 96 EY ve N 04 20 20 0 RE 19 AN 26 16 16 PR D 0 PH CH PR AR AE NE MA L RA CY S LS LL TA C BL ET LO 00 09 10 0 30 30 ME 13 GA Ac RA 78 -0 -2 0. D 19 IN ti TA 15 1- 8- 00 CA 67 EY ve DI 07 20 20 0 RE 75 NE 70 16 16 PR 1 PH CH 10 AR AE MA L MG CY S TA LL BL C ET SE 00 09 10 0 12 30 ME 13 GA Ac NN 90 -1 -2 00 D 16 IN ti A- 46 9- 2- .0 CA 73 EY ve LA 52 20 20 00 RE 99 X 26 16 16 PR 8. 1 PH CH 6 AR AE MG MA L CY S TA BL LL ET C 00 07 10 0 30 30 ME 13 GA Ac TA 53 -2 -2 0. D 16 IN ti PR 63 5- 1- 00 CA 09 EY ve N 79 20 20 0 RE 46 D3 00 16 16 PR 1 PH CH 2, AR AE 00 MA L 0 CY S UN IT LL C SO FT GE L 00 09 10 0 30 30 ME 13 GA Ac PI 53 -1 -2 0. D 15 IN ti RI 61 9- 0- 00 CA 55 EY ve N 00 20 20 0 RE 55 EC 44 16 16 PR 1 PH CH 81 AR AE MA L MG CY S TA LL BL C ET FE 00 09 10 0 30 30 ME 13 GA Ac RR 53 -1 -2 0. D 15 IN ti OU 61 9- 0- 00 CA 55 EY ve S 00 20 20 0 RE 56 CLARK 90 16 16 PR LF 1 PH CH AT AR AE E MA L 32 CY S 5 MG LL C TA BL ET ST 00 02 10 0 30 30 ME 13 GA Ac OO 53 -2 -1 0. D 14 IN ti L 61 3- 9- 00 CA 82 EY ve SO 06 20 20 0 RE 28 FT 41 16 16 PR EN 0 PH CH ER AR AE MA L 25 CY S 0 MG LL C SO FT GE L 00 11 10 0 30 30 ME 13 GA Ac TA 90 -0 -1 0. D 13 IN ti PR 45 5- 5- 00 CA 15 EY ve N 04 20 20 0 RE 57 AN 26 15 16 PR D 0 PH CH PR AR AE NE MA L RA CY S LS LL TA C BL ET LO 00 09 09 0 30 30 ME 13 GA Ac RA 78 -0 -2 0. D 03 IN ti TA 15 1- 9- 00 CA 49 EY ve DI 07 20 20 0 RE 14 NE 70 16 16 PR 1 PH CH 10 AR AE MA L MG CY S TA LL BL C ET SE 00 09 09 0 12 30 ME 13 GA Ac NN 90 -1 -2 00 D 00 IN ti A- 46 9- 3- .0 CA 42 EY ve LA 52 20 20 00 RE 47 X 26 16 16 PR 8. 1 PH CH 6 AR AE MG MA L CY S TA BL LL ET C 00 09 09 0 30 30 ME 13 GA Ac PI 53 -1 -2 0. D 00 IN ti RI 61 9- 2- 00 CA 79 EY ve N 00 20 20 0 RE 87 EC 44 16 16 PR 1 PH CH 81 AR AE MA L MG CY S TA LL BL C ET FE 00 09 09 0 30 30 ME 13 GA Ac RR 53 -1 -2 0. D 00 IN ti OU 61 9- 2- 00 CA 79 EY ve S 00 20 20 0 RE 89 CLARK 90 16 16 PR LF 1 PH CH AT AR AE E MA L 32 CY S 5 MG LL C TA BL ET 00 07 09 0 30 30 ME 12 GA Ac TA 53 -2 -2 0. D 99 IN ti PR 63 5- 1- 00 CA 05 EY ve N 79 20 20 0 RE 58 D3 00 16 16 PR 1 PH CH 2, AR AE 00 MA L 0 CY S UN IT LL C SO FT GE L ST 00 02 09 0 30 30 ME 12 GA Ac OO 53 -2 -1 0. D 97 IN ti L 61 3- 9- 00 CA 85 EY ve SO 06 20 20 0 RE 93 FT 41 16 16 PR EN 0 PH CH ER AR AE MA L 25 CY S 0 MG LL C SO FT GE L 00 11 09 0 30 30 ME 12 GA Ac TA 90 -0 -1 0. D 96 IN ti PR 45 5- 6- 00 CA 80 EY ve N 04 20 20 0 RE 50 AN 26 15 16 PR D 0 PH CH PR AR AE NE MA L RA CY S LS LL TA C BL ET LO 00 09 09 0 30 30 ME 12 GA Ac RA 78 -0 -0 0. D 90 IN ti TA 15 1- 1- 00 CA 04 EY ve DI 07 20 20 0 RE 71 NE 70 16 16 PR 1 PH CH 10 AR AE MA L MG CY S TA LL BL C ET SE 00 10 08 0 12 30 ME 12 GA Ac NN 90 -2 -2 00 D 84 IN ti A- 46 9- 5- .0 CA 88 EY ve LA 52 20 20 00 RE 51 X 26 15 16 PR 8. 1 PH CH 6 AR AE MG MA L CY S TA BL LL ET C 00 07 08 0 30 30 ME 12 GA Ac TA 53 -2 -2 0. D 82 IN ti PR 63 5- 2- 00 CA 65 EY ve N 79 20 20 0 RE 09 D3 00 16 16 PR 1 PH CH 2, AR AE 00 MA L 0 CY S UN IT LL C SO FT GE L ST 00 02 08 0 30 30 ME 12 GA Ac OO 53 -2 -2 0. D 83 IN ti L 61 3- 2- 00 CA 20 EY ve SO 06 20 20 0 RE 28 FT 41 16 16 PR EN 0 PH CH ER AR AE MA L 25 CY S 0 MG LL C SO FT GE L FE 00 10 08 0 30 30 ME 12 GA Ac RR 53 -1 -2 0. D 81 IN ti OU 61 0- 0- 00 CA 18 EY ve S 00 20 20 0 RE 40 CLARK 90 15 16 PR LF 1 PH CH AT AR AE E MA L 32 CY S 5 MG LL C TA BL ET 00 11 08 0 30 30 ME 12 GA Ac TA 90 -0 -1 0. D 79 IN ti PR 45 5- 7- 00 CA 28 EY ve N 04 20 20 0 RE 11 AN 26 15 16 PR D 0 PH CH PR AR AE NE MA L RA CY S LS LL TA C BL ET 00 10 08 0 30 30 ME 12 GA Ac PI 60 -0 -1 0. D 77 IN ti RI 30 9- 5- 00 CA 97 EY ve N 02 20 20 0 RE 73 EC 63 15 16 PR 2 PH CH 81 AR AE MA L MG CY S TA LL BL C ET MA 00 10 08 0 11 14 ME 12 GA Ac PA 90 -1 -0 20 D 74 IN ti P 41 0- 5- .0 CA 68 EY ve 50 98 20 20 00 RE 78 0 86 15 16 PR MG 1 PH CH AR AE TA MA L BL CY S ET LL C 00 07 07 0 30 30 ME 12 GA Ac TA 90 -2 -2 0. D 70 IN ti PR 40 8- 8- 00 CA 32 EY ve N 52 20 20 0 RE 12 C 38 16 16 PR 50 0 PH CH 0 AR AE MG MA L CY S TA BL LL ET C SE 00 10 07 0 12 30 ME 12 GA Ac NN 90 -2 -2 00 D 68 IN ti A- 46 9- 6- .0 CA 52 EY ve LA 52 20 20 00 RE 91 X 26 15 16 PR 8. 1 PH CH 6 AR AE MG MA L CY S TA BL LL ET C 00 07 07 0 30 30 ME 12 GA Ac TA 53 -2 -2 0. D 69 IN ti PR 63 5- 5- 00 CA 13 EY ve N 79 20 20 0 RE 18 D3 00 16 16 PR 1 PH CH 2, AR AE 00 MA L 0 CY S UN IT LL C SO FT GE L FE 00 10 07 0 30 30 ME 12 GA Ac RO 90 -1 -2 0. D 67 IN ti CLARK 47 0- 2- 00 CA 26 EY ve L 59 20 20 0 RE 65 32 08 15 16 PR 5 2 PH CH MG AR AE MA L TA CY S BL ET LL C 00 11 07 0 30 30 ME 12 GA Ac TA 90 -0 -1 0. D 65 IN ti PR 45 5- 8- 00 CA 97 EY ve N 04 20 20 0 RE 60 AN 26 15 16 PR D 0 PH CH PR AR AE NE MA L RA CY S LS LL TA C BL ET BI 00 03 07 0 15 15 ME 12 GA Ac SC 90 -1 -1 0. D 66 IN ti OL 45 0- 8- 00 CA 34 EY ve AX 05 20 20 0 RE 86 86 16 16 PR 10 0 PH CH AR AE MG MA L CY S CLARK PP LL OS C IT OR Y 00 10 07 0 30 30 ME 12 GA Ac PI 60 -0 -1 0. D 65 IN ti RI 30 9- 6- 00 CA 73 EY ve N 02 20 20 0 RE 27 EC 63 15 16 PR 2 PH CH 81 AR AE MA L MG CY S TA LL BL C ET ST 00 02 07 0 30 30 ME 12 GA Ac OO 53 -2 -1 0. D 63 IN ti L 61 3- 1- 00 CA 34 EY ve SO 06 20 20 0 RE 73 FT 41 16 16 PR EN 0 PH CH ER AR AE MA L 25 CY S 0 MG LL C SO FT GE L SE 00 10 06 0 12 30 ME 12 GA Ac NN 90 -2 -2 00 D 58 IN ti A- 46 9- 7- .0 CA 07 EY ve LA 52 20 20 00 RE 66 X 26 15 16 PR 8. 1 PH CH 6 AR AE MG MA L CY S TA BL LL ET C FE 00 10 06 0 30 30 ME 12 GA Ac RO 90 -1 -2 0. D 56 IN ti CLARK 47 0- 2- 00 CA 63 EY ve L 59 20 20 0 RE 47 32 08 15 16 PR 5 2 PH CH MG AR AE MA L TA CY S BL ET LL C 00 11 06 0 30 30 ME 12 GA Ac TA 90 -0 -1 0. D 55 IN ti PR 45 5- 8- 00 CA 21 EY ve N 04 20 20 0 RE 00 AN 26 15 16 PR D 0 PH CH PR AR AE NE MA L RA CY S LS LL TA C BL ET 00 10 06 0 30 30 ME 12 GA Ac PI 60 -0 -1 0. D 54 IN ti RI 30 9- 7- 00 CA 90 EY ve N 02 20 20 0 RE 56 EC 63 15 16 PR 2 PH CH 81 AR AE MA L MG CY S TA LL BL C ET BI 00 03 06 0 15 15 ME 12 GA Ac SC 90 -1 -1 0. D 55 IN ti OL 45 0- 7- 00 CA 42 EY ve AX 05 20 20 0 RE 04 86 16 16 PR 10 0 PH CH AR AE MG MA L CY S CLARK PP LL OS C IT OR Y ST 00 02 06 0 30 30 ME 12 GA Ac OO 53 -2 -1 0. D 53 IN ti L 61 3- 3- 00 CA 62 EY ve SO 06 20 20 0 RE 57 FT 41 16 16 PR EN 0 PH CH ER AR AE MA L 25 CY S 0 MG LL C SO FT GE L SE 00 10 05 0 12 30 ME 12 GA Ac NN 90 -2 -2 00 D 48 IN ti A 45 9- 8- .0 CA 35 EY ve 8. 16 20 20 00 RE 71 6 56 15 16 PR MG 1 PH CH AR AE TA MA L BL CY S ET LL C FE 00 10 05 0 30 30 ME 12 GA Ac RO 90 -1 -2 0. D 45 IN ti CLARK 47 0- 3- 00 CA 78 EY ve L 59 20 20 0 RE 37 32 08 15 16 PR 5 2 PH CH MG AR AE MA L TA CY S BL ET LL C BI 00 03 05 0 15 15 ME 12 GA Ac SC 90 -1 -2 0. D 46 IN ti OL 45 0- 1- 00 CA 12 EY ve AX 05 20 20 0 RE 33 86 16 16 PR 10 0 PH CH AR AE MG MA L CY S CLARK PP LL OS C IT OR Y 00 11 05 0 30 30 ME 12 GA Ac TA 90 -0 -2 0. D 45 IN ti PR 45 5- 0- 00 CA 09 EY ve N 04 20 20 0 RE 35 AN 26 15 16 PR D 0 PH CH PR AR AE NE MA L RA CY S LS LL TA C BL ET 00 10 05 0 30 30 ME 12 GA Ac PI 60 -0 -1 0. D 44 IN ti RI 30 9- 8- 00 CA 30 EY ve N 02 20 20 0 RE 82 EC 63 15 16 PR 2 PH CH 81 AR AE MA L MG CY S TA LL BL C ET TR 45 05 05 0 85 15 ME 12 GA Ac OL 80 -1 -1 0. D 44 IN ti AM 20 7- 7- 00 CA 21 EY ve IN 35 20 20 0 RE 63 E 65 16 16 PR SA 3 PH CH LI AR AE CY MA L LA CY S TE LL 10 C % CR EA M ST 00 02 05 0 30 30 ME 12 GA Ac OO 53 -2 -1 0. D 42 IN ti L 61 3- 3- 00 CA 78 EY ve SO 06 20 20 0 RE 12 FT 41 16 16 PR EN 0 PH CH ER AR AE MA L 25 CY S 0 MG LL C SO FT GE L SE 00 10 04 0 12 30 ME 12 GA Ac NN 90 -2 -2 00 D 38 IN ti A 45 9- 9- .0 CA 00 EY ve 8. 16 20 20 00 RE 41 6 56 15 16 PR MG 1 PH CH AR AE TA MA L BL CY S ET LL C FE 00 10 04 0 30 30 ME 12 GA Ac RO 90 -1 -2 0. D 36 IN ti CLARK 47 0- 5- 00 CA 33 EY ve L 59 20 20 0 RE 19 32 08 15 16 PR 5 2 PH CH MG AR AE MA L TA CY S BL ET LL C 00 11 04 0 30 30 ME 12 GA Ac TA 90 -0 -2 0. D 34 IN ti PR 45 5- 1- 00 CA 77 EY ve N 04 20 20 0 RE 79 AN 26 15 16 PR D 0 PH CH PR AR AE NE MA L RA CY S LS LL TA C BL ET 00 10 04 0 30 30 ME 12 GA Ac PI 60 -0 -1 0. D 33 IN ti RI 30 9- 8- 00 CA 77 EY ve N 02 20 20 0 RE 74 EC 63 15 16 PR 2 PH CH 81 AR AE MA L MG CY S TA LL BL C ET ST 00 02 04 0 30 30 ME 12 GA Ac OO 53 -2 -1 0. D 33 IN ti L 61 3- 5- 00 CA 32 EY ve SO 06 20 20 0 RE 30 FT 41 16 16 PR EN 0 PH CH ER AR AE MA L 25 CY S 0 MG LL C SO FT GE L SE 00 10 03 0 12 30 ME 12 GA Ac NN 90 -2 -3 00 D 27 IN ti A 45 9- 0- .0 CA 50 EY ve 8. 16 20 20 00 RE 78 6 56 15 16 PR MG 1 PH CH AR AE TA MA L BL CY S ET LL C FE 00 10 03 0 30 30 ME 12 GA Ac RO 90 -1 -2 0. D 27 IN ti CLARK 47 0- 9- 00 CA 31 EY ve L 59 20 20 0 RE 11 32 08 15 16 PR 5 2 PH CH MG AR AE MA L TA CY S BL ET LL C 00 11 03 0 30 30 ME 12 GA Ac TA 90 -0 -2 0. D 26 IN ti PR 45 5- 4- 00 CA 13 EY ve N 04 20 20 0 RE 04 AN 26 15 16 PR D 0 PH CH PR AR AE NE MA L RA CY S LS LL TA C BL ET ST 00 02 03 0 30 30 ME 12 GA Ac OO 53 -2 -2 0. D 24 IN ti L 61 3- 2- 00 CA 91 EY ve SO 06 20 20 0 RE 08 FT 41 16 16 PR EN 0 PH CH ER AR AE MA L 25 CY S 0 MG LL C SO FT GE L 00 10 03 0 30 30 ME 12 GA Ac PI 60 -0 -2 0. D 25 IN ti RI 30 9- 1- 00 CA 14 EY ve N 02 20 20 0 RE 48 EC 63 15 16 PR 2 PH CH 81 AR AE MA L MG CY S TA LL BL C ET BI 00 03 03 0 15 15 ME 12 GA Ac SC 90 -1 -1 0. D 21 IN ti OL 45 0- 0- 00 CA 54 EY ve AX 05 20 20 0 RE 70 86 16 16 PR 10 0 PH CH AR AE MG MA L CY S CLARK PP LL OS C IT OR Y SE 00 10 02 0 12 30 ME 12 GA Ac NN 90 -2 -2 00 D 17 IN ti A 45 9- 9- .0 CA 54 EY ve 8. 16 20 20 00 RE 30 6 56 15 16 PR MG 1 PH CH AR AE TA MA L BL CY S ET LL C FE 00 10 02 0 30 30 ME 12 GA Ac RO 90 -1 -2 0. D 17 IN ti CLARK 47 0- 9- 00 CA 54 EY ve L 59 20 20 0 RE 28 32 08 15 16 PR 5 2 PH CH MG AR AE MA L TA CY S BL ET LL C 00 11 02 0 30 30 ME 12 GA Ac TA 90 -0 -2 0. D 16 IN ti PR 45 5- 6- 00 CA 76 EY ve N 04 20 20 0 RE 44 AN 26 15 16 PR D 0 PH CH PR AR AE NE MA L RA CY S LS LL TA C BL ET 00 10 02 0 30 30 ME 12 GA Ac PI 60 -0 -2 0. D 16 IN ti RI 30 9- 6- 00 CA 76 EY ve N 02 20 20 0 RE 41 EC 63 15 16 PR 2 PH CH 81 AR AE MA L MG CY S TA LL BL C ET ST 00 02 02 0 30 30 ME 12 GA Ac OO 53 -2 -2 0. D 16 IN ti L 61 3- 3- 00 CA 16 EY ve SO 06 20 20 0 RE 99 FT 41 16 16 PR EN 0 PH CH ER AR AE MA L 25 CY S 0 MG LL C SO FT GE L NO 64 02 02 0 30 5 ME 12 GA Ac RM 25 -1 -1 00 D 14 IN ti AL 30 9- 9- .0 CA 72 EY ve 11 20 20 00 RE 74 SA 13 16 16 PR LI 0 PH CH NE AR AE MA L FL CY S US H LL SY C RI NG E HE 64 02 02 0 10 5 ME 12 GA Ac PA 25 -1 -1 00 D 14 IN ti RI 30 9- 9- .0 CA 72 EY ve N 33 20 20 00 RE 75 50 33 16 16 PR 0 5 PH CH UN AR AE IT MA L /5 CY S ML LL C (1 00 /M L) NI 00 10 10 0 30 1 ME 11 GA Ac TR 28 -0 -0 0. D 70 IN ti O- 10 2- 2- 00 CA 90 EY ve BI 32 20 20 0 RE 44 D 63 15 15 PR 2% 0 PH CH AR AE OI MA L NT CY S ME NT LL C MO 00 10 10 0 30 15 ME 11 GA Ac RP 40 -0 -0 0. D 70 IN ti HI 68 1- 1- 00 CA 82 EY ve NE 31 20 20 0 RE 36 50 15 15 PR CLARK 1 PH CH LF AR AE MA L ER CY S 15 LL C MG TA BL ET NO 00 10 10 0 10 15 ME 11 GA Ac VO 16 -0 -0 00 D 70 IN ti FI 91 1- 1- .0 CA 82 EY ve NE 85 20 20 00 RE 35 27 15 15 PR AU 5 PH CH TO AR AE CO MA L VE CY S R 30 LL G C NE ED LE MA 00 09 09 0 19 3 ME 11 GA Ac PA 90 -1 -2 0. D 69 IN ti P 41 1- 8- 00 CA 64 EY ve 50 98 20 20 0 RE 31 0 86 15 15 PR MG 1 PH CH AR AE TA MA L BL CY S ET LL C FE 00 09 09 0 30 30 ME 11 GA Ac RR 60 -1 -1 0. D 66 IN ti OU 30 7- 7- 00 CA 15 EY ve S 17 20 20 0 RE 57 CLARK 92 15 15 PR LF 9 PH CH AT AR AE E MA L 32 CY S 5 MG LL C TA BL ET 00 09 09 0 13 13 ME 11 GA Ac TA 90 -1 -1 0. D 66 IN ti PR 45 7- 7- 00 CA 15 EY ve N 04 20 20 0 RE 56 AN 26 15 15 PR D 0 PH CH PR AR AE NE MA L RA CY S LS LL TA C BL ET 63 09 09 0 20 20 ME 11 GA Ac PI 73 -1 -1 0. D 64 IN ti RI 90 1- 1- 00 CA 99 EY ve N 43 20 20 0 RE 10 81 40 15 15 PR 1 PH CH MG AR AE MA L CH CY S EW AB LL LE C TA BL ET CA 68 03 09 0 18 90 WA 73 SM Ac RV 46 -1 -0 00 L- 69 IT ti ED 20 0- 3- .0 MA 55 H ve IL 16 20 20 00 RT 9 PR OL 50 15 15 KE 5 PH [...] -0 -0 0. L- 67 RS ti PR 96 4- 3- 00 MA 45 ON [...] 15 15 EU E 5 PH GO NH AR ND OP MA A CY F 50 # MC 10 G 05 SP 91 RA Y CL 16 03 08 7 30 30 KM 68 SM Ac OP 72 -1 -1 0. AR 59 IT ti ID 90 0- 2- 00 T 40 H ve OG 21 20 20 0 PH 5 PR RE 81 15 15 AR KE L 5 MA L 75 CY D # MG 48 TA 47 BL ET LE 00 12 08 11 15 30 KM 68 PA Ac VE 16 -0 -0 0. AR 56 RS ti PR 96 4- 5- 00 T 02 ON [...] 6- 4- 00 T 23 ON ve PR 21 20 20 0 PH 7 S DE 61 14 15 AR JE 0 MA RE 40 CY MY # C MG 48 TA 47 BL ET AT 00 04 08 4 30 30 KM 68 SM Ac OR 37 -0 -0 0. AR 59 IT ti VA 83 7- 4- 00 T [address] 95 20 20 0 PH 7 PR AT 37 15 15 AR KE IN 7 MA L CY D 80 # MG 48 47 TA BL ET NH 59 04 07 11 85 17 KM [...] 6- 8- 00 T 23 ON ve PR 21 20 20 0 PH 7 S DE 61 14 15 AR JE 0 MA RE 40 CY MY # C MG 48 TA 47 BL ET AT 00 04 07 4 30 30 KM 68 SM Ac OR 37 -0 -0 0. AR 59 IT ti VA 83 7- 8- 00 [address] 95 20 20 0 PH 7 PR AT 37 15 15 AR KE IN 7 MA L CY D 80 # MG 48 47 TA BL ET CL 16 03 07 7 30 30 KM 68 SM Ac OP 72 -1 -0 0. AR 59 IT ti ID 90 0- 8- 00 T 40 H ve OG 21 20 20 0 PH 5 PR RE 81 15 15 AR KE L 5 MA L 75 CY D # MG 48 TA 47 BL ET LE 00 12 06 11 15 30 KM 68 PA Ac VE 16 -0 -2 0. AR 56 RS ti PR 96 4- 9- 00 T 02 ON [...] OG 21 20 20 0 PH 5 PR RE 81 15 15 AR KE L 5 MA L 75 CY D # MG 48 TA 47 BL ET AT 00 04 06 4 30 30 KM 68 SM Ac OR 37 -0 -0 0. AR 59 IT ti VA 83 7- 3- 00 [address] 95 20 20 0 PH 7 PR AT 37 15 15 AR KE IN 7 MA L CY D 80 # MG 48 47 TA BL ET FU 00 10 06 11 60 30 KM 68 PA Ac RO 37 -0 -0 0. AR 54 RS ti SE 80 6- 3- 00 T 23 ON ve PR 21 20 20 0 PH 7 S [...] C CA PS 48 UL 47 E BD 08 12 05 11 10 25 KM 88 PA Ac 29 -0 -1 00 AR 05 RS ti UL 03 4- 2- .0 T 06 ON ve TR 20 20 20 00 PH 3 S A- 10 14 15 AR JE FI 9 MA RE NE CY MY # C PE N 48 ND 47 L 8M MX 31 G ON 53 07 05 11 10 25 KM 88 PA Ac ET 88 -0 -1 00 AR 04 RS ti OU 50 8- 2- .0 T 84 ON ve CH 14 20 20 00 PH 8 S 30 14 15 AR JE DE 1 MA RE LI CY MY CA # C 33 48 G 47 LA NC ET S MO 42 04 05 0 60 30 [...] RE CE CY MY TA # C PR NO 48 PH 47 N 10 -3 [...] 6- 4- 00 T 23 ON ve PR 21 20 20 0 PH 7 S DE 61 14 15 AR JE 0 MA RE 40 CY MY # C MG 48 TA 47 BL ET RO 43 03 05 1 60 30 KM 68 SM Ac PI 54 -1 -0 0. AR 59 IT ti NI 70 0- 4- 00 T 40 H ve RO 27 20 20 0 PH 6 PR LE 11 15 15 AR KE 0 MA L HC CY D L # 2 MG 48 47 TA BL ET CL 16 03 05 7 30 30 KM 68 SM Ac OP 72 -1 -0 0. AR 59 IT ti ID 90 0- 4- 00 T 40 H ve OG 21 20 20 0 PH 5 PR RE 81 15 15 AR KE L 5 MA L 75 CY D # MG 48 TA 47 BL ET AT 00 04 05 4 30 30 KM 68 SM Ac OR 37 -0 -0 0. AR 59 IT ti VA 83 7- 4- 00 [address] 95 20 20 0 PH 7 PR AT 37 15 15 AR KE IN [...] C CA PS 48 UL 47 E NH 59 04 04 11 85 17 KM [...] PH 1 1 01 15 15 AR PR 4 MA CH GM CY AE /1 [...] 48 15 47 MG TA BL ET AT 00 04 04 4 30 30 KM 68 SM Ac OR 37 -0 -0 0. AR 59 IT ti VA 83 7- 7- 00 [address] 95 20 20 0 PH 7 PR AT 37 15 15 AR KE IN 7 MA L CY D 80 # MG 48 47 TA BL ET RO 43 03 04 1 60 30 KM 68 SM Ac PI 54 -1 -0 0. AR 59 IT ti NI 70 0- 7- 00 T 40 H ve RO 27 20 20 0 PH 6 PR LE 11 15 15 AR KE 0 MA L HC CY D L # 2 MG 48 47 TA BL ET CL 16 03 04 7 30 30 KM 68 SM Ac OP 72 -1 -0 0. AR 59 IT ti ID 90 0- 7- 00 T 40 H ve OG 21 20 20 0 PH 5 PR RE 81 15 15 AR KE L 5 MA L 75 CY D # MG 48 TA 47 BL ET BD 08 12 04 11 [...] ve 01 20 20 0 [place] 38 PR 50 36 15 15 2 KE 8 CL L MG IN D IC CA PS PH UL AR E MA CY LI 00 03 03 1 90 90 KE 52 SM Ac SI 17 -1 -1 0. NT 60 IT ti NO 23 0- 0- 00 UC 92 H ve NH 75 20 20 0 [place] 71 PR IL 98 15 15 6 KE 0 CL L 10 IN D IC MG PH TA AR BL MA ET CY LE 00 03 03 1 15 83 KE 52 SM Ac VE 16 -1 -1 0. NT 60 IT ti PR 96 0- 0- 00 UC 92 H ve R 43 20 20 0 [place] 71 PR FL 81 15 15 8 KE EX 0 CL L TO IN D UC IC H 10 PH 0 AR UN MA IT CY S/ ML AM 00 03 03 0 40 8 KE 52 SM Ac IT 60 -1 -1 .0 NT 60 IT ti RI 32 0- 0- 00 UC 92 H ve PT 21 20 20 [place] 71 PR YL 32 15 15 3 KE IN 1 CL L E IN D HC IC L 25 PH AR MG MA CY TA B RO 23 03 03 0 60 30 KE 52 SM Ac PI 15 -1 -1 0. NT 60 IT ti NI 50 0- 0- 00 UC 92 H ve RO 12 20 20 0 [place] 71 PR LE 40 15 15 2 KE 1 CL L HC IN D L IC 2 MG PH AR TA MA BL CY ET NO 00 03 03 1 15 62 KE 52 SM Ac VO 16 -1 -1 0. NT 60 IT ti LO 96 0- 0- 00 UC 92 H ve G 33 20 20 0 [place] 71 PR 10 91 15 15 7 KE 0 0 CL L UN IN D IT IC S/ ML PH AR FL MA EX CY PE N AT 60 03 03 1 30 30 KE 52 SM Ac OR 50 -1 -1 0. NT 60 IT ti VA 52 0- 0- 00 [place] [address] 67 20 20 0 [place] 72 PR AT 10 15 15 0 KE IN 9 CL L IN D 80 IC MG PH AR TA MA BL CY ET ON 53 03 03 1 10 25 KE 52 SM Ac ET 88 -1 -1 00 NT 60 IT ti OU 50 0- 0- .0 UC 92 H ve CH 24 20 20 00 [place] 73 PR 51 15 15 0 KE UL 0 CL L TR IN D A IC TE ST PH AR ST MA RI CY PS ON 53 03 03 1 10 30 KE 52 SM Ac ET 88 -1 -1 00 NT 60 IT ti OU 50 0- 0- .0 UC 92 H ve CH 14 20 20 00 [place] 72 PR 30 15 15 9 KE DE 1 CL L LI IN D CA IC 33 PH G AR LA MA NC CY ET S CL 55 03 03 2 30 30 KE 52 SM Ac OP 11 -1 -1 0. NT 60 IT ti ID 10 0- 0- 00 UC 92 H ve OG 19 20 20 0 [place] 71 PR RE 69 15 15 9 KE L 0 CL L 75 IN D IC MG PH TA AR BL MA ET CY ON 53 03 03 0 10 30 KE 52 SM Ac ET 88 -1 -1 .0 NT 60 IT ti OU 50 0- 0- 00 UC 92 H ve CH 44 20 20 [place] 72 PR 80 15 15 1 KE UL 1 CL L TR IN D A2 IC GL PH UC AR OS MA E CY SY ST 00 03 03 1 90 90 KE 52 SM Ac PI 60 -1 -1 0. NT 60 IT ti RI 30 0- 0- 00 UC 92 H ve N 02 20 20 0 [place] 71 PR EC 62 15 15 4 KE 2 CL L 81 IN D IC MG PH TA AR BL MA ET CY CA 68 03 03 1 18 90 KE 52 SM Ac RV 38 -1 -1 00 NT 60 IT ti ED 20 0- 0- .0 UC 92 H ve IL 09 20 20 00 [place] 72 PR OL 50 15 15 2 KE 5 CL L 25 IN D IC MG PH TA AR BL MA ET CY FU 00 10 03 11 60 30 KM 68 PA Ac RO 37 -0 -0 0. AR 54 RS ti SE 80 6- 7- 00 T 23 ON ve PR 21 20 20 0 PH 7 S [...] 69 20 20 0 PH 7 S PR 61 14 15 AR KE X 9 [...] MG TA BL ET FU 00 10 01 11 60 30 KM 68 PA Ac RO 37 -0 -2 0. AR 54 RS ti SE 80 6- 8- 00 T 23 ON ve PR 21 20 20 0 PH 7 S [...] 11 60 30 KM 68 PA Ac NH 18 -0 -2 0. AR 53 RS [...] E 10 48 47 MG TA B MO 42 01 01 0 60 30 [...] # C NT ME 48 NT 47 TO 00 09 12 11 60 30 KM 68 PA Ac NH 18 -0 -1 0. AR 53 RS [...] 6- 7- 00 T 23 ON ve PR 21 20 20 0 PH 7 S [...] E 10 48 47 MG TA B MO 42 12 12 0 60 30 [...] 47 PS UL E TO 00 09 11 11 60 30 KM 68 PA Ac NH 18 -0 -1 0. AR 53 RS [...] TE ST [address] RI PS ON 53 07 11 11 10 25 KM 88 PA Ac ET 88 -0 -1 00 AR 04 RS ti OU 50 8- 2- .0 T 84 ON ve CH 14 20 20 00 PH 8 S 30 14 14 AR JE DE 1 MA RE LI CY MY CA # C 33 48 G 47 LA NC ET S EN 00 09 11 11 60 30 [...] 0. AR 54 RS ti SS 11 6 T 23 ON ve IU 52 20 [...] 54 RS ti SE 44 6- 1- T 23 ON ve PR 29 20 20 0 PH 7 S DE 93 14 14 AR JE 1 MA RE 40 CY MY # C MG 48 TA 47 BL ET MO 42 10 10 0 60 30 KM 22 PA Ac RP 85 -2 -2 0. AR 16 RS ti HI 80 9 9- T 31 ON ve NE 80 20 20 0 PH 9 S 10 14 14 AR JE CLARK 1 MA RE LF CY MY # C ER 48 15 47 MG TA BL ET GA 67 10 10 0 90 30 KM 68 BU Ac BA 87 -2 -2 0. AR 55 RG ti PE 70 9 T 00 ES ve NT 22 20 20 0 PH 4 S IN 30 14 14 AR KE 1 MA LL 30 CY Y 0 # MG 48 CA 47 PS UL E AM 00 04 10 5 30 30 KM 68 LE Ac IT 60 -1 -2 0. AR 49 SL ti RI 32 8 9- 00 T 56 IE ve PT 21 20 20 0 PH 3 YL 43 14 14 AR WI IN 2 MA LM E CY A HC # L 50 48 47 MG TA B TO 00 09 10 11 60 30 KM 68 PA Ac NH 18 -0 -0 0. AR 53 RS ti OL 61 5 8 T 27 ON ve 09 20 20 0 PH 9 S XL 00 14 14 AR JE 5 MA RE 50 CY MY # C MG 48 TA 47 BL ET RO 23 09 10 11 30 30 KM 68 PA Ac PI 15 -0 -0 0. AR 53 RS ti NI 50 5 8 T 28 ON ve RO 12 20 20 0 PH 0 S LE 60 14 14 AR JE 1 MA RE HC CY MY L # C 4 MG 48 47 TA BL ET EN 00 09 10 11 60 30 KM 68 PA Ac AL 09 -0 -0 0. AR 53 RS ti AP 30 8 T 27 ON ve RI 02 20 20 0 PH 8 S L 80 14 14 AR JE MA 1 MA RE LE CY MY AT # C E 10 48 47 MG TA B PO 00 10 10 11 60 30 KM 68 PA Ac TA 78 -0 -0 0. AR 54 RS ti SS 11 6 T 23 ON ve IU 52 20 20 0 PH 8 S M 60 14 14 AR JE CL 1 MA RE CY MY ER # C 10 48 47 ME Q TA BL ET FU 00 10 10 11 60 30 KM 68 PA Ac RO 05 -0 -0 0. AR 54 RS ti SE 44 6 6 T 23 ON ve PR 29 20 20 0 PH 7 S DE 93 14 14 AR JE 1 MA RE 40 CY MY # C MG 48 TA 47 BL ET MO 42 09 09 0 60 30 KM 22 PA Ac RP 85 -0 -2 0. AR 16 RS ti HI 80 5- 8 T 17 ON ve NE 80 20 20 0 PH 3 S 10 14 14 AR JE CLARK 1 MA RE LF CY MY # C ER 48 15 47 MG TA BL ET AM 00 04 09 5 30 30 KM 68 LE Ac IT 60 -1 -1 0. AR 49 SL ti RI 32 - 7 T 56 IE ve PT 21 20 20 0 PH 3 YL 43 14 14 AR WI IN 2 MA LM E CY A HC # L 50 48 47 MG TA B FU 00 03 09 5 30 30 KM 68 BU Ac RO 05 -0 -1 0. AR 48 RG ti SE 44 5- 7- 00 T 24 ES ve PR 29 20 20 0 PH 4 S [...] 47 PS UL E TO 00 09 09 11 60 30 KM 68 PA Ac NH 18 -0 -0 0. AR 53 RS [...] 47 TA BL ET EN 00 09 09 11 [...] 5- 1- 00 T 24 ES ve PR 21 20 20 0 PH 4 S [...] TE ST [address] RI PS NH 59 06 07 11 85 25 KM [...] -1 -1 0. AR 48 LL ti NH 80 9- 5- 00 T 97 ve [...] 69 20 20 0 PH 7 S PR 61 14 14 AR KE X 9 [...] 48 15 47 MG TA BL ET AT 00 03 06 2 30 30 [...] 47 TA BL ET RO 23 01 06 6 30 30 [...] 5- 0- 00 T 24 ES ve PR 21 20 20 0 PH 4 S [...] 47 PS UL E AM 00 04 06 5 30 30 KM 68 LE Ac IT 37 -1 -2 0. AR 49 SL ti RI 82 8- 0- 00 T 56 IE ve PT 65 20 20 0 PH 3 YL 00 14 14 AR WI IN 1 MA LM E CY A HC # L 50 48 47 MG TA B NH 59 06 06 11 85 25 KM 68 PA Ac OA 31 -1 -1 .0 AR 51 RS ti IR 00 1- 6- 00 T 09 ON ve 57 20 20 PH 4 S HF 92 14 14 AR JE A 2 MA RE 90 CY MY # C MC G 48 IN 47 CASTELAN LE R ME 00 09 06 6 60 30 KM 68 CASTELAN Ac TO 37 -1 -0 0. AR 48 LL ti NH 80 9- 9- 00 T 97 ve [...] 69 20 20 0 PH 7 S PR 61 14 14 AR KE X 9 MA LL 70 CY Y -3 # 0 FL 48 EX 47 PE N SY RN GA 67 03 05 5 90 30 [...] AR 48 RG ti VA 83 1- 1- 00 [address] 95 [...] 5- 1- 00 T 24 ES ve PR 21 20 20 0 PH 4 S [...] 47 MG TA B AM 00 04 05 5 30 30 [...] 69 20 20 0 PH 7 S PR 61 14 14 AR KE X 9 MA LL 70 CY Y -3 # 0 FL 48 EX 47 PE N SY RN ME 00 09 05 6 60 30 KM 68 CASTELAN Ac TO 37 -1 -0 0. AR 48 LL ti NH 80 9- 5- 00 T 97 ve [...] 5- 2- 00 T 24 ES ve PR 21 20 20 0 PH 4 S [...] 5 IN RA CE IC J TA PR PH NO AR PH MA N CY [...] -1 -2 0. AR 48 LL ti NH 80 9- 7- 00 T 97 ve [...] 5 IN RA CE IC J TA PR PH NO AR PH MA N CY 10 -3 25 NO 00 01 03 11 30 30 [...] 5- 5- 00 T 24 ES ve PR 21 20 20 0 PH 4 S [...] 4 MG 48 47 TA BL ET HY 00 02 02 0 12 30 CASTELAN [address] 59 -2 -2 00 RO 20 RS ti OC 12 1- 1- .0 LD 65 ON ve OD 61 20 20 00 S ON 20 14 14 CL JE -A 5 IN RE CE IC MY TA C PR PH NO AR PH MA N CY [...] RO 20 RS ti ON 70 1- 1 LD 73 ON ve AT 10 20 [...] 69 20 20 0 PH 2 S PR 61 13 14 AR JE X 9 [...] 47 MG TA B NO 00 01 02 11 30 30 KM 68 BU Ac VO 16 -0 -0 0. AR 46 RG ti LO 96 6- 6- 00 T 78 ES ve G 33 20 20 0 PH 2 S 10 91 14 14 AR KE 0 0 MA LL UN CY Y IT # S/ ML 48 47 FL EX PE N 00 02 02 0 90 30 KM 44 MA Ac 40 -0 -0 0. AR 53 LI ti 60 6- 6- 00 T 41 K ve 36 20 20 0 PH 9 CASTELAN 70 14 14 AR MM 1 MA AD CY U # 48 47 TI 57 01 01 3 90 30 KM 68 BU Ac ZA 66 -2 -2 0. AR 47 RG ti NI 40 9- 9- 00 T 34 ES ve DI 50 20 20 0 PH 6 S NE 38 14 14 AR KE 9 MA LL HC CY Y L # 4 MG 48 47 TA BL ET RO 23 01 01 6 30 30 KM 68 BU Ac PI 15 -2 -2 0. AR 47 RG ti NI 50 9- 9- 00 T 34 ES ve RO 12 20 20 0 PH 5 S LE 60 14 14 AR KE 1 MA LL HC CY Y L # 4 MG 48 47 TA BL ET ME 00 09 01 11 60 30 KM 68 PA Ac TO 37 -1 -2 0. AR 43 RS ti NH 80 9- 9- 00 T 88 ON ve OL 03 20 20 0 PH 2 S OL 21 13 14 AR JE 0 MA RE TA CY MY RT # C RA TE 48 47 50 MG TA B GA 67 09 01 11 90 30 KM 68 PA Ac BA 87 -2 -2 0. AR 44 RS ti PE 70 5 9 T 06 ON ve NT 22 20 [...] 48 47 MG TA B FU 00 07 01 5 30 30 KM 68 PA Ac RO 37 -0 -2 0. AR 41 RS ti SE 80 5 T 93 ON ve PR 21 20 20 0 PH 2 S DE 61 13 14 AR JE 0 MA RE 40 CY MY # C MG 48 TA 47 BL ET AT 00 09 01 5 30 30 KM 68 PA Ac OR 37 -1 -1 0. AR 43 RS ti VA 82 8 6 T [address] 01 20 20 0 PH 9 S AT 70 13 14 AR JE IN 5 MA RE CY MY 20 # C MG 48 47 TA BL ET AM 00 07 01 5 60 30 KM 68 PA Ac IT 60 -0 -0 0. AR 41 RS ti RI 32 5 6 T 93 ON ve PT 21 20 20 0 PH 4 S YL 42 13 14 AR JE IN 1 MA RE E CY MY HC # C L 50 48 47 MG TA B NO 00 01 01 11 30 30 KM 68 BU Ac VO 16 -0 -0 0. AR 46 RG ti LO 96 6 6 T 78 ES ve G 33 20 20 0 PH 2 S 10 91 14 14 AR KE 0 0 MA LL UN CY Y IT # S/ ML 48 47 FL EX PE N MO 00 12 12 0 60 30 [...] HY 00 12 12 0 12 30 CASTELNA [address] 60 -3 -3 00 RO 75 RS ti OC 33 0- 0- .0 LD 70 ON ve OD 88 20 20 00 S ON 73 13 13 CL JE -A 2 IN RE CE IC MY TA C PR PH NO AR PH MA N CY 10 -3 25 TI 57 07 12 5 90 30 [...] 47 TA BL ET EN 00 07 12 [...] 47 MG TA B GA 67 09 12 11 90 30 [...] 5- 9- 00 T 93 ON ve PR 21 20 20 0 PH 2 S [...] -1 -1 0. AR 43 RS ti NH 80 9- 9- 00 T 88 ON [...] 69 20 20 0 PH 2 S PR 61 13 13 AR JE X 9 [...] C NT ME 48 NT 47 MO 00 12 12 0 60 30 [...] IC MY C PH AR MA CY MU 45 12 12 1 22 30 CASTELAN 56 PA Ac PI 80 -0 -0 0. RO 55 RS ti RO 20 2- 2- 00 LD 87 ON ve CI 11 20 20 0 S N 22 13 13 CL JE 2% 2 IN RE IC MY OI C NT PH ME AR NT MA CY RO 23 07 11 5 [...] 7- 0- 00 T 23 ON ve PR 21 20 20 0 PH 8 S DE 61 13 13 AR JE 0 MA RE 40 CY MY # C MG 48 TA 47 BL ET AT 00 09 11 5 [...] -1 -2 0. AR 43 RS ti NH 80 9- 0- 00 T 88 ON [...] 69 20 20 0 PH 2 S PR 61 13 13 AR JE X 9 [...] C PH AR MA CY ME 00 09 10 11 60 30 KM 68 PA Ac TO 37 -1 -2 0. AR 43 RS ti NH 80 9- 3- 00 T 88 ON [...] RE CY MY # C 48 47 AT 00 09 10 5 30 30 [...] 7- 3- 00 T 23 ON ve PR 21 20 20 0 PH 8 S DE 61 13 13 AR JE 0 MA RE 40 CY MY # C MG 48 TA 47 BL ET 00 10 10 0 12 30 CASTELAN 56 PA Ac 40 -0 -0 00 RO 15 RS ti 60 3- 3- .0 LD 96 ON ve 36 20 20 00 S 30 13 13 CL JE 5 IN RE IC MY C PH AR MA CY TI 57 07 10 5 90 30 KM 68 PA Ac ZA 66 -0 -0 0. AR 41 RS ti NI 40 5- 1- 00 T 93 ON ve DI 50 20 20 0 PH 3 S NE 31 13 13 AR JE 8 MA RE HC CY MY L # C 4 MG 48 47 TA BL ET ON 53 10 10 1 50 25 [...] -1 -1 0. AR 43 RS ti NH 80 9- 9- 00 T 88 ON [...] 7- 8- 00 T 23 ON ve PR 21 20 20 0 PH 8 S [...] 47 TA BL ET AM 00 04 08 4 60 30 KM 68 PA Ac IT 60 -1 -2 0. AR 39 RS ti RI 32 1- 3- 00 T 86 ON ve PT 21 20 20 0 PH 7 S YL 42 13 13 AR JE IN 1 MA RE E CY MY HC # C L 50 48 47 MG TA B TI 57 07 08 5 90 30 [...] 7- 6- 00 T 23 ON ve PR 21 20 20 0 PH 8 S [...] 7- 8- 00 T 23 ON ve PR 21 20 20 0 PH 8 S DE 61 13 13 AR JE 0 MA RE 40 CY MY # C MG 48 TA 47 BL ET 00 07 07 0 12 [...] 47 TA BL ET EN 64 04 06 5 60 30 KM 68 PA Ac AL 67 -1 -2 0. AR 39 RS ti AP 90 5- 8- 00 T 88 ON ve RI 92 20 20 0 PH 7 S L 50 13 13 AR JE MA 3 MA RE LE CY MY AT # C E 10 48 47 MG TA B 14 02 06 3 90 30 KM 68 PA Ac 55 -1 -2 0. AR 38 RS ti 00 4- 8- 00 T 26 ON ve 51 20 20 0 PH 9 S 20 13 13 AR JE 4 MA RE CY MY # C 48 47 ME 00 02 06 4 60 30 KM 68 PA Ac TO 37 -0 -2 0. AR 38 RS ti NH 80 6- 8- 00 T 07 ON [...] 69 20 20 0 PH 1 S PR 61 12 13 AR JE X 9 [...] 7- 7- 00 T 23 ON ve PR 21 20 20 0 PH 8 S DE 61 13 13 AR JE 0 MA RE 40 CY MY # C MG 48 TA 47 BL ET 14 02 05 3 90 30 KM 68 PA Ac 55 -1 -3 0. AR 38 RS ti 00 4- 1- 00 T 26 ON ve 51 20 20 0 PH 9 S 20 13 13 AR JE 4 MA RE CY MY # C 48 47 RO 23 02 05 4 30 30 [...] -0 -3 0. AR 38 RS ti NH 80 6- 1- 00 T 07 ON [...] 69 20 20 0 PH 1 S PR 61 12 13 AR JE X 9 [...] 47 MG TA B AM 00 04 05 4 60 30 [...] TI 55 11 05 5 90 30 CASTLEAN 53 PA Ac ZA 11 -1 -1 [...] IC MY C PH AR MA CY BD 08 12 05 9 10 30 [...] 69 20 20 0 PH 1 S PR 61 12 13 AR JE X 9 MA RE 70 CY MY -3 # C 0 FL 48 EX 47 PE N SY RN RO 23 02 05 4 30 30 [...] -0 -0 0. AR 38 RS ti NH 80 6- 2- 00 T 07 ON ve OL 03 20 20 0 PH 5 S OL 21 13 13 AR JE 0 MA RE TA CY MY RT # C RA TE 48 47 50 MG TA B EN 64 04 05 5 60 30 [...] C PH AR MA CY FU 00 03 04 1 30 30 KM 68 PA Ac RO 37 -0 -0 0. AR 38 RS ti SE 80 7- 5- 00 T 83 ON ve PR 21 20 20 0 PH 2 S [...] 69 20 20 0 PH 1 S PR 61 12 13 AR JE X 9 MA RE 70 CY MY -3 # C 0 FL 48 EX 47 PE N SY RN ME 00 02 04 4 60 30 KM 68 PA Ac TO 37 -0 -0 0. AR 38 RS ti NH 80 6- 5- 00 T 07 ON [...] CY MY # C 48 47 00 03 03 0 12 30 CASTELAN 54 PA Ac 59 -1 -1 00 RO 60 RS ti 12 1- 1- .0 LD 62 ON ve 60 20 20 00 S 90 13 13 CL JE 5 IN RE IC MY C PH AR MA CY ME 00 02 03 4 60 30 KM 68 PA Ac TO 37 -0 -0 0. AR 38 RS ti NH 80 6- 8- 00 T 07 ON [...] 7- 8- 00 T 83 ON ve PR 21 20 20 0 PH 2 S [...] 69 20 20 0 PH 1 S PR 61 12 13 AR JE X 9 [...] L 8M MX 31 G RO 23 09 10 3 30 30 KM 69 PA Ac PI 15 -1 -3 .0 AR 26 RS ti NI 50 4- 1- 00 T 12 ON ve RO 12 20 20 PH 7 S LE 60 11 11 AR JE 1 MA RE HC CY MY L 71 C 4 74 MG # TA 71 BL 74 ET EN 64 09 10 3 60 30 [...] 4- 7- 00 T 12 ON ve PR 21 20 20 PH 8 S DE 61 11 11 AR JE 0 MA RE 40 CY MY 71 C MG 74 # TA BL 71 ET 74 CR 00 09 10 6 30 30 [...] -0 -2 .0 AR 11 YN ti NH 40 4- 7- 00 T 00 E ve OL 47 20 20 PH 6 VA OL 75 11 11 AR UG 8 MA HN TA CY W RT 71 RA 74 TE # 50 71 74 MG TA B NH 00 10 10 0 21 6 KM [...] 4- 8- 00 T 12 ON ve PR 21 20 20 PH 8 S DE 61 11 11 AR JE 0 MA RE 40 CY MY 71 C MG 74 # TA BL 71 ET 74 ME 00 01 09 6 60 30 KM 69 PA Ac TO 09 -0 -2 .0 AR 11 YN ti NH 30 4- 8- 00 T 00 E ve OL 73 20 20 PH 6 VA OL 31 11 11 AR UG 0 MA HN TA CY W RT 71 RA 74 TE # 50 71 74 MG TA B CR 00 09 09 6 [...] AR 21 ST ti LO 93 8 T 61 IC ve G 69 20 20 PH 3 E PR 61 11 11 AR SA X 9 [...] SA 97 RR ti HI 68 9 DE 35 ET ve NE 31 20 20 NA 1 T 50 11 11 LE CLARK 1 PH NA LF AR RD MA R ER CY 15 MG TA BL ET LY 00 09 09 1 90 30 PA 40 DU Ac RI 07 -0 -0 .0 SA 55 RR ti CA 11 DE 66 ET ve 01 20 20 [...] 4- 1- 00 T 00 E ve PR 21 20 20 PH 9 VA DE 61 11 11 AR UG 0 MA HN 40 CY W 71 MG 74 # TA BL 71 ET 74 EN 00 01 08 6 60 30 [...] -0 -3 .0 AR 11 YN ti NH 30 4- 0- 00 T 00 E ve OL 73 20 20 PH 6 VA OL 31 11 11 AR UG 0 MA HN TA CY W RT 71 RA 74 TE # 50 71 74 MG TA B NO 00 06 08 3 15 30 KM 69 JU Ac VO 16 -2 -[address] ti LO 93 1- 0- 00 T 61 IC ve G 69 20 20 PH 3 E PR 61 11 11 AR SA X 9 MA RA 70 CY H -3 71 M 0 74 FL # EX PE 71 N 74 SY RN LY 00 07 08 1 90 30 [...] CY MG TA BL ET MO 00 07 08 [...] MA K MG CY TA BL ET BD 08 12 08 [...] 71 BL 74 ET FU 00 01 08 6 30 30 KM 69 PA Ac RO 37 -0 -0 .0 AR 11 YN ti SE 80 4- 3- 00 T 00 E ve PR 21 20 20 PH 9 VA DE [...] # ET 71 74 ME 00 01 07 6 60 30 KM 69 PA Ac TO 09 -0 -2 .0 AR 11 YN ti NH 30 4- 2- 00 T 00 E [...] 11 AR SA E 9 MA RA NH CY H OP 71 M 74 50 # MC 71 G 74 SP RA Y NO 00 06 07 3 15 30 KM 69 JU Ac VO 16 -2 -[address] ti LO 93 1- 2- 00 T 61 IC ve G 69 20 20 PH 3 E PR 61 11 11 AR SA X 9 MA RA 70 CY H -3 71 M 0 74 FL # EX PE 71 N 74 SY RN EN 60 07 07 0 90 30 PA 20 LA Ac DO 95 -1 -1 .0 SA 96 RS ti CE 10 00 DE 46 ON ve T 71 [...] 4- 0- 00 T 00 E ve PR 21 20 20 PH 9 VA DE 61 11 11 AR UG 0 MA HN 40 CY W 71 MG 74 # TA BL 71 ET 74 FL 00 04 06 3 16 30 KM 69 JU Ac UT 05 -2 -[address] ti IC 43 9- 2- 00 T 70 IC ve 27 20 20 PH 2 E ON 09 11 11 AR SA E 9 MA RA NH CY H OP 71 M 74 50 # MC 71 G 74 SP RA Y NO 00 06 06 3 15 30 KM 69 JU Ac VO 16 -2 -[address] ti LO 93 1- 2- 00 T 61 IC ve G 69 20 20 PH 3 E PR 61 11 11 AR SA X 9 MA RA 70 CY H -3 71 M 0 74 FL # EX PE 71 N 74 SY RN GA 14 04 06 3 60 30 KM 69 JU Ac BA 55 -2 -[address] ti PE 00 6- 0- 00 T 54 IC ve NT 51 20 20 PH 2 E IN 20 11 11 AR SA 2 MA RA 30 CY H 0 71 M MG 74 # CA PS 71 UL 74 E ME 00 01 06 6 60 30 KM 69 PA Ac TO 09 -0 -2 .0 AR 11 YN ti NH 30 4- 0- 00 T 00 E [...] 10 # MG 71 74 TA B MO 00 05 06 0 [...] L 71 8M 74 MX 31 G 00 12 06 4 12 30 KM [...] 71 BL 74 ET FU 00 01 06 6 30 30 KM 69 PA Ac RO 37 -0 -0 .0 AR 11 YN ti SE 80 4- 2- 00 T 00 E ve PR 21 20 20 PH 9 VA DE [...] TA 74 BL # ET 71 74 FL 00 04 05 3 16 30 KM 69 JU Ac UT 05 -2 -[address] ti IC 43 9- 6- 00 T 70 IC ve 27 20 20 PH 2 E ON 09 11 11 AR SA E 9 MA RA NH CY H OP 71 M 74 50 [...] # CA PS 71 UL 74 E ME 00 01 05 6 60 30 KM 69 PA Ac TO 09 -0 -2 .0 AR 11 YN ti NH 30 4- 4- 00 T 00 E [...] 71 74 TA B NO 00 12 05 5 15 30 KM 69 Ac VO 16 -3 -2 .0 AR 10 NG ti LO 93 0- 4- 00 T 66 ER ve G 69 20 20 PH 5 Y PR 61 10 11 AR JE X 9 [...] MG TA BL ET FU 00 01 05 6 30 30 KM 69 PA Ac RO 37 -0 -0 .0 AR 11 YN ti SE 80 4- 5- 00 T 00 E ve PR 21 20 20 PH 9 VA DE [...] 11 AR SA E 9 MA RA NH CY H OP 71 M 74 50 [...] # CA PS 71 UL 74 E ME 00 11 04 6 60 30 KM 69 PA Ac TO 09 -0 -2 .0 AR 07 YN ti NH 30 1- 7- 00 T 00 E ve OL 73 20 20 PH 4 VA OL 31 10 11 AR UG 0 MA HN TA CY W RT 71 RA 74 TE # 50 71 74 MG TA B EN 64 01 04 6 60 30 [...] G 69 20 20 PH 5 Y PR 61 10 11 AR JE X 9 MA NN 70 CY IF -3 71 ER 0 74 B FL # EX PE 71 N 74 SY RN EN 60 03 04 0 90 30 [...] 4- 8- 00 T 00 E ve PR 21 20 20 PH 9 VA DE [...] TA 71 BL 74 ET NO 00 12 03 5 15 30 KM 69 KI Ac VO 16 -3 -3 .0 AR 10 NG ti LO 93 0- 0- 00 T 66 ER ve G 69 20 20 PH 5 Y PR 61 10 11 AR JE X 9 [...] 11 AR JE E 9 MA NN NH CY IF OP 71 ER 74 B 50 # MC 71 G 74 SP RA Y ME 00 11 03 6 60 30 KM 69 PA Ac TO 09 -0 -3 .0 AR 07 YN ti NH 30 1- 0- 00 T 00 E ve OL 73 20 20 PH 4 VA OL 31 10 11 AR UG 0 MA HN TA CY W RT 71 RA 74 TE # 50 71 74 MG TA B EN 00 01 03 6 60 30 [...] 71 ER 74 B # 71 74 FU 00 01 03 6 30 30 KM 69 PA Ac RO 37 -0 -0 .0 AR 11 YN ti SE 80 4- 4- 00 T 00 E ve PR 21 20 20 PH 9 VA DE [...] BL # ET 71 74 EN 00 01 02 6 60 [...] -0 -2 .0 AR 07 YN ti NH 30 1- 8- 00 T 00 E [...] G 69 20 20 PH 5 Y PR 61 10 11 AR JE X 9 [...] 11 AR JE E 9 MA NN NH CY IF OP 71 ER 74 B [...] 2- 5- 00 T 18 Y ve PR 21 20 20 PH 5 AZAM DE [...] -0 -2 .0 AR 07 YN ti NH 80 1- 6- 00 T 00 E [...] 11 AR JE E 9 MA NN NH CY IF OP 71 ER 74 B 50 # MC 71 G 74 SP RA Y EN 00 06 01 5 60 30 [...] 71 74 TA B NO 00 12 01 5 15 30 KM 69 KI Ac VO 16 -3 -2 .0 AR 10 NG ti LO 93 0- 6- 00 T 66 ER ve G 69 20 20 PH 5 Y PR 61 10 11 AR JE X 9 [...] PS 71 UL 74 E MO 00 01 01 0 60 30 [...] 2- 6- 00 T 18 Y ve PR 21 20 20 PH 5 AZAM DE [...] G 69 20 20 PH 5 Y PR 61 10 10 AR JE X 9 [...] 10 AR JE E 6 MA NN NH CY IF OP 71 ER 74 B 50 # MC 71 G 74 SP RA Y BD 08 12 12 5 10 30 KM 88 Ac 29 -3 -3 0. AR 11 [...] -0 -2 .0 AR 07 YN ti NH 80 1- 9- 00 T 00 E [...] 2- 6- 00 T 18 Y ve PR 21 20 20 PH 5 AZAM DE [...] P ET 71 74 AC 64 01 12 [...] TA 74 BL # ET 71 74 OX 53 11 12 0 [...] # P MG 71 74 TA B BD 08 03 11 10 [...] -0 -2 .0 AR 07 YN ti NH 30 1- 9- 00 T 00 E [...] G 69 20 20 PH 8 TH PR 61 10 10 AR X 9 MA RA 70 CY -3 71 ND 0 74 ER FL # S EX PE 71 N 74 SY RN RO 00 06 11 5 30 30 [...] 2- 8- 00 T 18 Y ve PR 21 20 20 PH 5 AZAM DE [...] -0 -0 .0 AR 07 YN ti NH 30 1- 00 T 00 E ve [...] # P MG 71 CA 74 P RO 00 06 10 5 30 30 [...] 2- 1- 00 T 18 Y ve PR 21 20 20 PH 5 AZAM DE [...] P ET 71 74 AC 64 01 10 5 30 30 KM 68 DU Ac TO 76 -1 -1 .0 AR 89 NN ti S 40 5- 1- 00 T 78 IN ve 45 45 20 20 PH 0 G 12 10 10 AR MA MG 4 MA LE CY SH TA 71 EA BL 74 ET # 71 74 EN 00 06 10 5 60 30 [...] -3 -0 .0 AR 94 YN ti NH 30 1- 2- 00 T 40 E [...] G 69 20 20 PH 8 TH PR 61 10 10 AR X 9 MA [...] # P MG 71 CA 74 P RO 00 06 09 5 30 30 [...] 2- 3- 00 T 18 Y ve PR 21 20 20 PH 5 AZAM DE [...] P ET 71 74 AC 64 01 09 5 [...] 71 BL 74 ET # 71 74 ME 00 03 09 6 60 30 KM 68 PA Ac TO 09 -3 -0 .0 AR 94 YN ti NH 30 1- 2- 00 T 40 E [...] 8- 7- 00 T 58 Y ve PR 29 20 20 PH 9 AZAM DE [...] P ET 71 74 AC 64 01 08 5 30 30 KM 68 DU Ac TO 76 -1 -1 .0 AR 89 NN ti S 40 5- 7- 00 T 78 IN ve 45 45 20 20 PH 0 G 12 10 10 AR MA MG 4 MA LE CY SH TA 71 EA BL 74 ET # 71 74 NO 00 06 08 2 15 30 KM 68 BH Ac VO 16 -0 -1 .0 AR 98 AG ti LO 93 8- 7- 00 T 31 RA ve G 69 20 20 PH 3 TH PR 61 10 10 AR X 9 MA [...] 71 BL 74 ET # 71 74 ME 00 03 08 6 60 30 KM 68 PA Ac TO 09 -3 -0 .0 AR 94 YN ti NH 30 1- 2- 00 T 40 E [...] 8- 5- 00 T 58 Y ve PR 29 20 20 PH 9 AZAM DE 93 10 10 AR NE 1 MA S 40 CY LA 71 UR MG 74 A # P TA BL 71 ET 74 AC 64 01 07 5 30 [...] # ET 71 74 NO 00 06 07 2 15 30 KM 68 BH Ac VO 16 -0 -1 .0 AR 98 AG ti LO 93 8- 5- 00 T 31 RA ve G 69 20 20 PH 3 TH PR 61 10 10 AR X 9 MA [...] 71 BL 74 ET # 71 74 ME 00 03 07 6 60 30 KM 68 PA Ac TO 09 -3 -0 .0 AR 94 YN ti NH 30 1- 2- 00 T 40 E [...] Y 2 R [address] NINA 25 9 UG BE RT MG CO [...] 71 BL 74 ET FU 00 03 06 5 30 30 KM 68 Ac RO 37 -1 -1 .0 AR 93 HB ti SE 80 8- 6- 00 T 58 Y ve PR 21 20 20 PH 9 AZAM DE [...] A # P 71 74 CR 00 01 06 5 [...] G 69 20 20 PH 3 TH PR 61 10 10 AR X 9 MA RA 70 CY -3 71 ND 0 74 ER FL # S EX PE 71 N 74 SY RN ME 00 06 06 21 6 RI 62 MU Ac TH 60 -0 -0 .0 TE 93 TI ti YL 34 7- 7- 00 98 SO ve NH 59 20 20 AI ED 31 10 10 D AN NI [address] SO AR EW LO MA M NE CY 4 02 MG 29 0 DO # SE 02 PK 29 ME 00 03 06 6 60 30 KM 68 PA Ac TO 09 -3 -0 .0 AR 94 YN ti NH 30 1- 1- 00 T 40 E [...] BL # ET 71 74 FU 00 03 05 5 30 30 KM 68 Ac RO 37 -1 -1 .0 AR 93 HB ti SE 80 8- 5- 00 T 58 Y ve PR 21 20 20 PH 9 AZAM DE [...] -3 -2 .0 AR 94 YN ti NH 30 1- 9- 00 T 40 E [...] G 69 20 20 PH 1 TH PR 61 10 10 AR X 9 MA RA 70 CY -3 71 ND 0 74 ER FL # S EX PE 71 N 74 SY RN LY 00 04 04 0 90 30 [...] TA AN BL Y ET IN C FU 63 03 04 5 30 30 KM 68 Ac RO 30 -1 -1 .0 AR 93 HB ti SE 40 8- 4- 00 T 58 Y ve PR 62 20 20 PH 9 AZAM DE 50 10 10 AR NE 1 MA S 40 CY LA 71 UR MG 74 A # P TA BL 71 ET 74 CR 00 01 04 5 30 [...] 74 # 71 74 DI 00 03 04 6 [...] -3 -3 .0 AR 94 YN ti NH 30 1- 1- 00 T 40 E [...] -2 -2 .0 ON ti CA 11 5- 5- 00 OM [...] Y DS IN C TA BL ET FU 63 03 03 5 30 30 KM 68 Ac RO 30 -1 -1 .0 AR 93 HB ti SE 40 8- 8- 00 T 58 Y ve PR 62 20 20 PH 9 AZAM DE [...] UR 74 A # P 71 74 00 03 03 5 15 30 [...] .0 AR 89 NN ti TO 00 5 6 T 78 IN ve R 75 [...] 1- 8- 00 T 44 IN ve PR 62 20 20 PH 8 G DE [...] -3 -0 .0 AR 80 YN ti NH 30 1- 1- 00 T 99 E ve OL 73 20 20 PH 6 VA OL 31 09 10 AR UG 0 MA HN TA CY W RT 71 RA 74 TE # 50 71 74 MG TA B DI 00 02 02 00 30 30 K- 68 PA Ac GO 52 -1 -2 .0 MA 91 YN ti X 71 7- 6- RT 76 E ve 12 32 20 [...] MA 10 NN ti 93 8- 6- RT 13 IN ve 47 20 20 1 G 71 09 10 PH MA 8 AR LE M SH #7 EA 17 4 GL 00 06 02 04 12 60 K- 68 DU Ac YB 09 -1 -1 0. MA 76 NN ti UR 39 8- - 00 RT 76 IN ve ID 36 20 20 0 7 G E 40 09 10 PH MA 5 1 AR LE MG M SH #7 EA TA 17 BL 4 ET FU 00 06 02 02 30 30 K- 68 DU Ac RO 37 -1 -1 .0 MA 76 NN ti SE 80 1- - RT 44 IN ve PR 21 20 20 8 G DE 61 09 10 PH MA 0 AR LE 40 M SH #7 EA MG 17 4 TA BL ET ME 00 08 02 05 60 30 K- 68 PA Ac TO 09 -3 -1 .0 MA 80 YN ti NH 30 1- - RT 99 E ve OL 73 20 20 6 VA OL 31 09 10 PH UG 0 AR HN TA M W RT #7 RA 17 TE 4 50 MG TA B LY 00 01 02 00 12 30 EC 46 WI Ac RI 07 -2 -1 0. ON 88 ND ti CA 11 7- 1- OM 94 SO ve 01 20 20 [...] PS IN UL C E 00 06 02 5 15 30 KM [...] 1- 4- 00 RT 44 IN ve PR 21 20 20 8 G DE 61 [...] IN C TA BL ET 00 12 00 15 30 EC 46 WI Ac 59 -2 -1 0. ON 87 ND ti 10 9- 4- 00 OM 52 SO ve 54 20 20 0 Y 0 R [address] NINA 5 UG BE RT CO E IN C DO 00 12 00 90 30 EC 73 WI Ac XE 37 -2 -1 .0 ON 07 ND ti PI 83 9- 4- 00 OM 01 SO ve N 12 20 20 Y 3 R [address] NINA 1 UG BE MG RT CO E CA PS IN UL C E LY 00 12 00 12 30 EC [...] #7 EA 17 4 ME 00 08 01 04 60 30 K- 68 PA Ac TO 09 -3 -1 .0 MA 80 YN ti NH 30 1- 4- 00 RT 99 E [...] -3 -1 .0 MA 80 YN ti NH 30 1 7- RT 99 E ve OL 73 20 20 6 VA OL 31 09 09 PH UG 0 AR HN TA M W RT #7 RA 17 TE 4 50 MG TA B FU 00 06 12 00 30 30 K- 68 DU Ac RO 37 -1 -1 .0 MA 76 NN ti SE 80 1- 7- RT 44 IN ve PR 21 20 20 8 G DE 61 09 09 PH MA 0 AR LE 40 M SH #7 EA MG 17 4 TA BL ET DI 00 06 12 00 30 30 K- 68 DU Ac GO 52 -1 -1 .0 MA 76 NN ti X 71 7- RT 44 IN ve 25 32 20 [...] .0 MA 76 NN ti AP 30 1 7- RT 44 IN ve RI 02 20 20 7 G L 90 09 09 PH MA MA 1 AR LE LE M SH AT #7 EA E 17 20 4 MG TA B GL 00 06 12 03 12 60 [...] EA 17 MG 4 TA BL ET 64 06 12 [...] BL 17 ET 4 BU 00 06 12 05 30 30 K- 68 DU Ac SP 37 -1 -0 .0 MA 76 NN ti IR 81 8- 3- 00 RT 76 IN ve ON 15 20 20 3 G E 00 09 09 PH MA HC 1 AR LE L M SH 10 #7 EA 17 MG 4 TA BL ET LY 00 11 12 00 12 32 EC 46 WI Ac RI 07 -2 -0 8. ON 86 ND ti CA 11 4- 3- 00 OM 00 SO ve 01 20 20 0 Y 8 R [address] WOOD 0 8 UG BE MG RT CO E CA PS IN UL C E TR 65 11 12 00 96 32 [...] E CA PS IN UL C E EN 00 06 11 05 60 30 K- 68 DU Ac AL 09 -1 -1 .0 MA 76 NN ti AP 30 8- 9- 00 RT 76 IN ve RI 02 20 20 6 G L 90 09 09 PH MA MA 1 AR LE LE M SH AT #7 EA E 17 20 4 MG TA B 64 06 11 04 30 30 K- [...] MA 76 NN ti X 71 8- - 00 RT 76 IN ve 25 32 20 20 4 G 0 50 09 09 PH MA MC 1 AR LE G M SH TA #7 EA BL 17 ET 4 AC 64 06 11 05 30 30 K- 68 DU Ac TO 76 -1 -1 .0 MA 76 NN ti S 40 8- 9- 00 RT 76 IN ve 45 45 20 20 0 G 12 09 09 PH MA MG 4 AR LE M SH TA #7 EA BL 17 ET 4 CR 00 06 11 04 30 30 K- 68 DU Ac ES 31 -1 -1 .0 MA 76 NN ti TO 00 RT 76 IN ve R 75 20 20 5 G 10 19 09 09 PH MA 0 AR LE MG M SH #7 EA TA 17 BL 4 ET FU 00 06 11 05 30 30 K- 68 DU Ac RO 37 -1 -1 .0 MA 76 NN ti SE 80 8 RT 77 IN ve PR 21 20 20 0 G DE 61 09 09 PH MA 0 AR LE 40 M SH #7 EA MG 17 4 TA BL ET 00 06 11 03 15 30 K- 88 DU Ac 16 -1 -1 .0 MA 10 NN ti 93 8 RT 13 IN ve 47 20 20 [...] 0 R [address] RO 1 UG BE MG RT CO E CA PS IN UL C E ME 00 08 11 02 60 30 K- 68 PA Ac TO 37 -3 -0 .0 MA 80 YN ti NH 80 1- 5- 00 RT 99 E [...] 8- 2- 00 RT 77 IN ve PR 21 20 20 0 G DE 61 [...] 20 4 MG TA B GL 00 06 10 02 12 60 [...] #7 EA 17 4 AC 64 06 10 04 30 30 K- 68 DU Ac TO 76 -1 -2 .0 MA 76 NN ti S 40 8- 2- 00 RT 76 IN ve 45 45 20 20 0 G 12 09 09 PH MA MG 4 AR LE M SH TA #7 EA BL 17 ET 4 DO 00 09 10 00 96 32 EC 72 WI Ac XE 37 -2 -0 .0 ON 95 ND ti PI 83 5- 8- 00 OM 59 SO ve N 12 20 20 Y 9 R [address] WOOD 1 UG BE MG RT CO E CA PS IN UL C E LY 00 09 10 00 12 32 EC 46 WI Ac RI 07 -2 -0 8. ON 83 ND ti CA 11 5- 8- 00 OM 04 SO ve 01 20 20 0 Y 6 R [address] WOOD 0 8 UG BE MG RT CO E CA PS IN UL C E TR 65 09 10 00 96 32 EC 46 WI Ac AM 16 -2 -0 .0 ON 83 ND ti AD 20 5- 8- 00 OM 04 SO ve OL 62 20 20 Y 5 R [address] WOOD HC 1 UG BE L RT 50 CO E MG IN C TA BL ET ME 00 08 10 01 60 30 K- 68 PA Ac TO 37 -3 -0 .0 MA 80 YN ti NH 80 1- 8- 00 RT 99 E [...] 4 MG TA B FU 00 06 09 03 30 30 K- 68 DU Ac RO 37 -1 -2 .0 MA 76 NN ti SE 80 8- 4- 00 RT 77 IN ve PR 21 20 20 0 G DE 61 [...] EA 17 MG 4 TA BL ET 64 06 09 02 30 30 K- 68 DU Ac 72 -1 -2 .0 MA 76 NN ti 00 8- 4- 00 RT 76 IN ve 20 20 20 8 G 61 09 09 PH MA 0 AR LE M SH #7 EA 17 4 AC 64 06 09 03 30 30 [...] TA 17 BL 4 ET 00 06 09 02 15 30 [...] PS IN UL C E DO 00 07 09 01 90 30 [...] -3 -1 .0 MA 80 YN ti NH 80 1- 0- 00 RT 99 E ve OL 03 20 20 6 VA OL 21 09 09 PH UG 0 AR HN TA M W RT #7 RA 17 TE 4 50 MG TA B BU 00 06 08 02 30 30 K- 68 DU Ac SP 37 -1 -2 .0 MA 76 NN ti IR 81 8- 7- 00 RT 76 IN ve ON 15 20 20 3 G E 00 09 09 PH MA HC 1 AR LE L M SH 10 #7 EA 17 MG 4 TA BL ET FU 00 06 08 02 30 30 K- 68 DU Ac RO 37 -1 -2 .0 MA 76 NN ti SE 80 8- 7- 00 RT 77 IN ve PR 21 20 20 0 G DE 61 09 09 PH MA 0 AR LE 40 M SH #7 EA MG 17 4 TA BL ET 64 06 08 01 30 30 K- 68 DU Ac 72 -1 -2 .0 MA 76 NN ti 00 8- 7- 00 RT 76 IN ve 20 20 20 8 G 61 09 09 PH MA 0 AR LE M SH #7 EA 17 4 EN 64 06 08 02 60 30 [...] #7 EA TA 17 BL 4 ET GL 00 06 08 01 12 [...] #7 EA BL 17 ET 4 00 06 08 01 15 30 K- 88 DU Ac 16 -1 -1 .0 MA 10 NN ti 93 8- 3- 00 RT 13 IN ve 47 20 20 1 G 71 09 09 PH MA 8 AR LE M SH #7 EA 17 4 DO 00 07 08 00 90 30 [...] IN UL C E ME 00 08 08 11 60 30 K- 68 PA Ac TO 37 -2 -1 .0 MA 58 YN ti NH 80 5- 3- 00 RT 62 E ve OL 03 20 20 2 VA OL 21 08 09 PH UG 0 AR HN TA M W RT #7 RA 17 TE 4 50 MG TA B TR 65 07 08 00 90 30 [...] M SH #7 EA 17 4 64 06 07 00 30 30 [...] 8- 0- 00 RT 77 IN ve PR 21 20 20 0 G DE 61 09 09 PH MA 0 AR LE 40 M SH #7 EA MG 17 4 TA BL ET DI 00 06 07 01 30 30 K- 68 DU Ac GO 52 -1 -3 .0 MA 76 NN ti X 71 8- 0- 00 RT 76 IN ve 25 32 20 20 4 G 0 50 09 09 PH MA MC 1 AR LE G M SH TA #7 EA BL 17 ET 4 CR 00 06 07 00 30 30 K- 68 DU Ac ES 31 -1 -3 .0 MA 76 NN ti TO 00 8- 0- 00 RT 76 IN ve R 75 20 20 5 G 10 13 09 09 PH MA 9 AR LE MG M SH #7 EA TA 17 BL 4 ET EN 64 06 07 01 60 30 K- 68 DU Ac AL 67 -1 -3 .0 MA 76 NN ti AP 90 8- 0- 00 RT 76 IN ve RI 92 20 20 6 G L 60 09 09 PH MA MA 2 AR LE LE M SH AT #7 EA E 17 20 4 MG TA B AC 64 06 07 01 30 30 [...] -2 -1 .0 MA 58 YN ti NH 80 5- 6- 00 RT 62 E ve OL 03 20 20 2 VA OL 21 08 09 PH UG 0 AR HN TA M W RT #7 RA 17 TE 4 50 MG TA B LY 00 06 07 00 12 30 [...] IN C TA BL ET DO 00 06 07 [...] 8- 2- 00 RT 77 IN ve PR 21 20 20 0 G DE 61 09 09 PH MA 0 AR LE 40 M SH #7 EA MG 17 4 TA BL ET AC 64 06 07 00 30 30 [...] EA 17 MG 4 TA BL ET GL 00 06 [...] EA 17 4 EN 64 06 07 00 60 30 K- 68 DU Ac AL 67 -1 -0 .0 MA 76 NN ti AP 90 8- 2- 00 RT 76 IN ve RI 92 20 20 6 G L 60 09 09 PH MA MA 2 AR LE LE M SH AT #7 EA E 17 20 4 MG TA B 64 01 06 01 30 30 K- [...] SH #7 EA 17 4 CR 00 02 06 03 30 30 K- 68 DU Ac ES 31 -1 -1 .0 MA 68 NN ti TO 00 2- 8- 00 RT 82 IN ve R 75 20 20 0 G 10 19 09 09 PH MA 0 AR LE MG M SH #7 EA TA 17 BL 4 ET AC 64 05 06 00 30 30 K- 68 DU Ac TO 76 -1 -0 .0 MA 74 NN ti S 40 8- 4- 00 RT 89 IN ve 45 45 20 20 7 G 12 09 09 PH MA MG 4 AR LE M SH TA #7 EA BL 17 ET 4 65 05 06 00 10 25 EC [...] IN C TA BL ET DO 00 05 06 00 90 30 [...] -2 -0 .0 MA 58 YN ti NH 80 5- 4- 00 RT 62 E [...] SH #7 EA 17 4 CR 00 02 05 02 30 30 K- 68 DU Ac ES 31 -1 -2 .0 MA 68 NN ti TO 00 2- 1- 00 RT 82 IN ve R 75 20 20 0 G 10 19 09 09 PH MA 0 AR LE MG M SH #7 EA TA 17 BL 4 ET IB 53 04 05 01 90 30 [...] BL 17 ET 4 FU 00 02 05 03 30 30 K- 68 DU Ac RO 37 -1 -0 .0 MA 68 NN ti SE 80 2- 7- 00 RT 82 IN ve PR 21 20 20 3 G DE 61 09 09 PH MA 0 AR LE 40 M SH #7 EA MG 17 4 TA BL ET 00 01 05 03 12 30 K- 68 DU Ac 78 -2 -0 0. MA 67 NN ti 11 9- 7- 00 RT 94 IN ve 19 20 20 0 8 G 10 09 09 PH MA 1 AR LE M SH #7 EA 17 4 ME 65 01 05 03 12 30 K- 68 DU Ac TF 86 -2 -0 0. MA 67 NN ti OR 20 2- 7- 00 RT 52 IN ve PR 00 20 20 0 5 G N 80 09 09 PH MA HC 5 AR LE L M SH 50 #7 EA 0 17 MG 4 TA BL ET NO 00 03 05 [...] IT /M L AL ME 00 08 05 08 60 30 K- 68 PA Ac TO 37 -2 -0 .0 MA 58 YN ti NH 80 5- 7- 00 RT 62 E ve OL 03 20 20 2 VA OL 21 08 09 PH UG 0 AR HN TA M W RT #7 RA 17 TE 4 50 MG TA B DO 00 04 05 00 90 30 [...] 4 MG IN C TA BL ET DI 00 02 04 02 [...] 2- 3- 00 RT 82 IN ve PR 21 20 20 3 G DE 61 [...] 2- 3- 00 RT 52 IN ve PR 00 20 20 0 5 G N 80 09 09 PH MA HC 5 AR LE L M SH 50 #7 EA 0 17 MG 4 TA BL ET EN 64 02 04 02 60 30 K- 68 DU Ac AL 67 -1 -2 .0 MA 68 NN ti AP 90 2- 3- 00 RT 82 IN ve RI 92 20 20 4 G L 60 09 09 PH MA MA 2 AR LE LE M SH AT #7 EA E 17 20 4 MG TA B IB 53 04 04 00 90 30 K- 68 DU Ac UP 74 -1 -2 .0 MA 72 NN ti RO 60 6- 3- 00 RT 94 IN ve FE 46 20 20 8 G N 60 09 09 PH MA 80 5 AR LE 0 M SH MG #7 EA 17 TA 4 BL ET AC 64 01 04 03 30 30 K- 68 DU Ac TO 76 -2 -2 .0 MA 67 NN ti S 40 2- 3- 00 RT 52 IN ve 45 45 20 20 4 G 12 09 09 PH MA MG 4 AR LE M SH TA #7 EA BL 17 ET 4 64 02 04 02 30 30 K- 68 DU Ac 72 -1 -2 .0 MA 68 NN ti 00 2- 3- 00 RT 82 IN ve 20 20 20 1 G 61 09 09 PH MA 0 AR LE M SH #7 EA 17 4 CR 00 02 04 01 30 30 [...] 9 R [address] WOOD [...] Y 3 R [address] WOOD HC 8 UG BE L RT 50 CO E MG IN C TA BL ET NO 00 03 04 00 10 30 K- 88 Ac VO 16 -2 -0 .0 MA 09 ND ti LI 91 4- 9- 00 RT 90 UM ve N 83 20 20 9 AL 70 71 09 09 PH LA -3 1 AR 0 M GO 10 #7 PI 0 17 K UN 4 IT /M L AL AZ 50 03 04 00 6. 5 ME 22 PA Ac IT 11 -1 -0 00 DI 68 YN ti HR 10 2- 9- 0 CA 09 E ve OM 78 20 20 L VA YC 76 09 09 CE UG IN 6 NT HN ER W 25 0 PH MG AR MA TA CY BL ET ME 00 08 04 07 60 30 K- 68 PA Ac TO 37 -2 -0 .0 MA 58 YN ti NH 80 5- 9- 00 RT 62 E ve OL 03 20 20 2 VA OL 21 08 09 PH UG 0 AR HN TA M W RT #7 RA 17 TE 4 50 MG TA B IB 53 03 03 00 90 30 [...] EA IN MG C TA BL ET 64 02 03 01 30 30 K- [...] 2- 6- 00 RT 52 IN ve PR 00 20 20 0 5 G N 80 09 09 PH MA HC 5 AR LE L M SH 50 #7 EA 0 17 MG 4 TA BL ET DI 00 02 03 01 30 [...] BL 17 ET 4 CR 00 02 03 00 30 30 K- 68 DU Ac ES 31 -1 -2 .0 MA 68 NN ti TO 00 2- 6- 00 RT 82 IN ve R 75 20 20 0 G 10 19 09 09 PH MA 0 AR LE MG M SH #7 EA TA 17 BL 4 ET EN 64 02 03 01 60 30 K- 68 DU Ac AL 67 -1 -2 .0 MA 68 NN ti AP 90 2- 6- 00 RT 82 IN ve RI 92 20 20 4 G L 60 09 09 PH MA MA 2 AR LE LE M SH AT #7 EA E 17 20 4 MG TA B 00 03 03 00 30 30 K- 68 DU Ac 37 -1 -2 .0 MA 71 NN ti 80 9- 6- 00 RT 27 IN ve 75 20 20 6 G 50 09 09 PH MA 1 AR LE M SH #7 EA 17 4 FU 00 02 03 01 30 30 K- 68 DU Ac RO 37 -1 -2 .0 MA 68 NN ti SE 80 2- 6- 00 RT 82 IN ve PR 21 20 20 3 G DE 61 [...] #7 EA 17 4 ME 00 08 03 06 60 30 K- 68 PA Ac TO 37 -2 -1 .0 MA 58 YN ti NH 80 5- 2- 00 RT 62 E ve OL 03 20 20 2 VA OL 21 08 09 PH UG 0 AR HN TA M W RT #7 RA 17 TE 4 50 MG TA B DO 49 09 03 05 30 30 CE 34 UP Ac XE 88 -3 -1 .0 DA 13 AD ti PI 40 0- 2- 00 R 64 HY ve N 21 20 20 TR AY 25 80 08 09 AC 1 E SH MG PH AI M LE CA IN SH PS C P UL E DI 00 02 02 00 30 30 K- 68 DU Ac GO 52 -1 -2 .0 MA 68 NN ti X 71 2- 6- 00 RT 82 IN ve 25 32 20 20 5 G 0 50 09 09 PH MA MC 1 AR LE G M SH TA #7 EA BL 17 ET 4 CR 00 07 02 06 30 30 K- 68 PA Ac ES 31 -2 -2 .0 MA 56 YN ti TO 00 1- 6- 00 RT 22 E ve R 75 20 20 7 VA 10 19 08 09 PH UG 0 AR HN MG M W #7 TA 17 BL 4 ET AC 64 01 02 01 30 30 K- 68 DU Ac TO 76 -2 -2 .0 MA 67 NN ti S 40 2- 6- 00 RT 52 IN ve 45 45 20 20 4 G 12 09 09 PH MA MG 4 AR LE M SH TA #7 EA BL 17 ET 4 68 02 02 00 20 10 K- 68 DU Ac 77 -1 -2 .0 MA 68 NN ti 40 2- 6- 00 RT 82 IN ve 12 20 20 7 G 26 09 09 PH MA 0 AR LE M SH #7 EA 17 4 FU 00 02 02 00 30 30 K- 68 DU Ac RO 37 -1 -2 .0 MA 68 NN ti SE 80 2- 6- 00 RT 82 IN ve PR 21 20 20 3 G DE 61 09 09 PH MA 0 AR LE 40 M SH #7 EA MG 17 4 TA BL ET 64 02 02 00 30 30 K- 68 DU Ac 72 -1 -2 .0 MA 68 NN ti 00 2- 6- 00 RT 82 IN ve 20 20 20 1 G 61 09 09 PH MA 0 AR LE M SH #7 EA 17 4 TR 00 02 02 00 12 [...] 17 20 4 MG TA B 00 01 02 00 12 30 K- [...] -2 -1 .0 MA 58 YN ti NH 80 5- 2- 00 RT 62 E ve OL 03 20 20 2 VA OL 21 08 09 PH UG 0 AR HN TA M W RT #7 RA 17 TE 4 50 MG TA B 63 02 02 00 18 6 CE [...] IN SH PS C P UL E CR 00 07 01 05 30 30 [...] TA 4 BL ET EN 64 07 01 06 30 30 [...] 1- 0- 00 RT 23 E ve PR 21 20 20 0 VA DE 61 08 09 PH UG 0 AR HN 40 M W #7 MG 17 4 TA BL ET AM 66 01 01 00 20 10 K- 68 DU Ac OX 68 -1 -3 .0 MA 67 NN ti -C 51 3- 0- 00 RT 01 IN ve LA 00 20 20 4 G V 10 09 09 PH MA 87 0 AR LE 5- M SH 12 #7 EA 5 17 MG 4 TA BL ET 64 01 01 00 30 [...] 2- 0- 00 RT 52 IN ve PR 00 20 20 0 5 G N 80 09 09 PH MA HC 5 AR LE L M SH 50 #7 EA 0 17 MG 4 TA BL ET NH 00 01 01 00 24 6 EC [...] #7 EA BL 17 ET 4 00 01 01 00 30 30 K- 68 DU Ac 37 -1 -3 .0 MA 67 NN ti 80 3- 0- 00 RT 01 IN ve 75 20 20 3 G 50 09 09 PH MA 1 AR LE M SH #7 EA 17 4 AM 00 01 01 00 21 7 K- 68 Ac OX 78 -0 -1 .0 MA 66 ND ti IC 12 9- 5- 00 RT 75 UM ve IL 61 20 20 9 AL LI 30 09 09 PH LA N 5 AR 50 M GO 0 #7 PI MG 17 K 4 CA PS UL E DO 49 09 01 03 30 30 CE 34 UP Ac XE 88 -3 -1 .0 DA 13 AD ti PI 40 0- 5- 00 R 64 HY ve N 21 20 20 TR AY 25 80 08 09 AC 1 E SH MG PH AI M LE CA IN SH PS C P UL E GL 00 10 01 02 30 30 K- 68 Ac YB 09 -2 -0 .0 MA 61 ND ti UR 39 2- 1- 00 RT 98 UM ve ID 36 20 20 4 AL E 40 08 09 PH LA 5 1 AR MG M GO #7 PI TA 17 K BL 4 ET LY 00 10 01 01 90 30 K- 44 PR Ac RI 07 -2 -0 .0 MA 53 CK ti CA 11 8- 1- 00 RT 16 ve 01 20 20 6 GR 15 66 08 09 PH EG 0 8 AR OR MG M Y #7 E CA 17 PS 4 UL E DI 57 07 01 05 30 30 [...] -2 -0 .0 MA 58 YN ti NH 80 5- 1- 00 RT 62 E ve OL 03 20 20 2 VA OL 21 08 09 PH UG 0 AR HN TA M W RT #7 RA 17 TE 4 50 MG TA B EN 64 07 01 05 30 30 [...] MA 56 YN ti TO 00 1- - RT 22 E ve R 75 20 20 7 VA 10 19 08 09 PH UG 0 AR HN MG M W #7 TA 17 BL 4 ET FU 00 07 01 05 30 30 K- 68 PA Ac RO 37 -2 -0 .0 MA 56 YN ti SE 80 1- 1- 00 RT 23 E ve PR 21 20 20 0 VA DE 61 08 09 PH UG 0 AR HN 40 M W #7 MG 17 4 TA BL ET TR 00 12 01 00 12 30 K- 44 W[place] Ac AM 37 -1 -0 0. MA 53 TT ti AD 84 8- 1- 00 RT 74 EN ve OL 15 20 20 0 1 BA 10 08 09 PH CH HC 5 AR L M WI 50 #7 LL 17 IA MG 4 M H TA BL ET DO 49 09 12 02 30 30 CE 34 UP Ac XE 88 -3 -1 .0 DA 13 AD ti PI 40 0- 8- 00 R 64 HY ve N 21 20 20 TR AY 25 80 08 08 AC 1 E SH MG PH AI M LE CA IN SH PS C P UL E 64 10 12 02 30 30 K- 68 CO Ac 72 -1 -1 .0 MA 61 LL ti 00 4- 8- 00 RT 45 IN ve 20 20 20 0 S 41 08 08 PH PA 0 AR TR M IC #7 K 17 W 4 GL 00 10 12 01 30 30 [...] 1- 4- 00 RT 23 E ve PR 21 20 20 0 VA DE 61 08 08 PH UG 0 AR HN 40 M W #7 MG 17 4 TA BL ET TR 00 10 12 01 12 30 K- 68 PR Ac AM 37 -2 -0 0. MA [...] 56 YN ti AP 90 1- 4- 00 RT 22 E ve RI 92 20 20 8 VA L 60 08 08 PH UG MA 2 AR HN LE M W AT #7 E 17 20 4 MG TA B ME 00 08 12 03 60 30 K- 68 PA Ac TO 37 -2 -0 .0 MA 58 YN ti NH 80 5- 4- 00 RT 62 E ve OL 03 20 20 2 VA OL 21 08 08 PH UG 0 AR HN TA M W RT #7 RA 17 TE 4 50 MG TA B DO 49 09 11 [...] 17 W MG 4 TA BL ET 00 10 11 00 12 30 K- 44 PR Ac 40 -2 -0 0. MA 53 CK ti 60 8- 7- 00 RT 16 ve 36 20 20 0 5 GR 30 08 08 PH EG 5 AR OR M Y #7 E 17 4 GL 00 10 11 00 30 30 K- 68 Ac YB 09 -2 -0 .0 MA 61 ND ti UR 39 2- 7- 00 RT 98 UM ve ID 36 20 20 4 AL E 40 08 08 PH LA 5 1 AR MG M GO #7 PI TA 17 K BL 4 ET LY 00 10 11 00 90 30 K- 44 PR Ac RI 07 -2 -0 .0 MA 53 CK ti CA 11 8- 7- RT 16 ve 01 20 20 6 GR 15 66 08 08 PH EG 0 8 AR OR MG M Y #7 E CA 17 PS 4 UL E TR 00 10 11 00 12 30 K- 68 PR Ac AM 37 -2 -0 0. MA 62 CK ti AD 84 8 RT 29 ve OL 15 20 20 0 9 GR 10 08 08 PH EG HC 5 AR OR L M Y 50 #7 E 17 MG 4 TA BL ET DI 57 07 11 03 30 30 K- 68 PA Ac GO 66 -2 -0 .0 MA 56 YN ti XI 40 RT 22 E ve N 44 20 20 9 VA 0. 18 08 08 PH UG 25 8 AR HN M W MG #7 17 TA 4 BL ET CR 00 07 11 02 30 30 K- 68 PA Ac ES 31 -2 -0 .0 MA 56 YN ti TO 00 RT 22 E ve R 75 20 20 7 VA 10 19 08 08 PH UG 0 AR HN MG M W #7 TA 17 BL 4 ET EN 64 07 11 03 30 30 K- 68 PA Ac AL 67 -2 -0 .0 MA 56 YN ti AP 90 1 RT 22 E ve RI 92 20 20 8 VA L 60 08 08 PH UG MA 2 AR HN LE M W AT #7 E 17 20 4 MG TA B FU 00 07 11 03 30 30 K- 68 PA Ac RO 37 -2 -0 .0 MA 56 YN ti SE 80 1- 7- 00 RT 23 E ve PR 21 20 20 0 VA DE 61 08 08 PH UG 0 AR HN 40 M W #7 MG 17 4 TA BL ET ME 00 08 11 02 60 30 K- 68 PA Ac TO 37 -2 -0 .0 MA 58 YN ti NH 80 5- 7- 00 RT 62 E ve OL 03 20 20 2 VA OL 21 08 08 PH UG 0 AR HN TA M W RT #7 RA 17 TE 4 50 MG TA B RO 00 10 10 00 30 30 [...] ti SE 80 RT 23 E ve PR 21 20 20 0 VA DE 61 08 08 PH UG 0 AR HN 40 M W #7 MG 17 4 TA BL ET ME 00 08 10 01 60 30 K- 68 PA Ac TO 37 -2 -0 .0 MA 58 YN ti NH 80 5 RT 62 E ve OL 03 20 20 2 VA OL 21 08 08 PH UG 0 AR HN TA M W RT #7 RA 17 TE 4 50 MG TA B DI 57 07 10 02 30 30 [...] 17 BL 4 ET GL 00 07 10 02 30 30 K- 68 Ac YB 09 -2 -0 .0 MA 56 ND ti UR 39 2- 9- 00 RT 24 UM ve ID 36 [...] 1- 1- 00 RT 23 E ve PR 21 20 20 0 VA DE 61 08 08 PH UG 0 AR HN 40 M W #7 MG 17 4 TA BL ET ME 00 08 09 00 60 30 K- 68 PA Ac TO 37 -2 -1 .0 MA 58 YN ti NH 80 5- 1- 00 RT 62 E [...] MA 56 YN ti AP 90 1- 8- RT 22 E ve RI 92 [...] 1- 4- 00 RT 23 E ve PR 21 20 20 0 VA DE 61 08 08 PH UG 0 AR HN 40 M W #7 MG 17 4 TA BL ET DI 57 07 08 00 30 30 K- 68 PA Ac GO 66 -2 -1 .0 MA 56 YN ti XI 40 1- 4- 00 RT 22 E ve N 44 20 20 9 VA 0. 18 08 08 PH UG 25 8 AR HN M W MG #7 17 TA 4 BL ET TO 00 06 08 00 60 30 K- 68 BA Ac NH 18 -1 -1 .0 MA 53 IL [...] HE 4 R TA M BL ET EN 64 07 08 00 30 30 K- 68 PA Ac AL 67 -2 -0 .0 MA 56 YN ti AP 90 1- 1- 00 RT 22 E ve RI 92 20 20 8 VA L 60 08 08 PH UG MA 2 AR HN LE M W AT #7 E 17 20 4 MG TA B GL 00 07 08 00 30 30 K- 68 Ac YB 09 -2 -0 .0 MA 56 ND ti UR 39 2- 1- 00 RT 24 UM ve ID 36 20 20 8 AL E 40 08 08 PH LA 5 1 AR MG M GO #7 PI TA 17 K BL 4 ET FL 00 06 07 00 16 30 K- 68 BA Ac UT 05 -1 -1 .0 MA 53 IL ti IC 43 2- 7- 00 RT 97 EY ve 27 20 20 9 ON 09 08 08 PH CH E 9 AR RI NH M ST OP #7 OP 17 HE [...] R M TA BL ET LY 00 06 07 00 90 [...] 17 HE ET 4 R M DI 00 04 07 02 60 30 [...] #7 OP 17 HE 4 R M 00 06 07 00 [...] HE TA 4 R BL M ET FU 00 06 07 00 30 30 K- 68 BA Ac RO 37 -1 -1 .0 MA 53 IL ti SE 80 2- 7- 00 RT 98 EY ve PR 21 20 20 2 DE 61 08 08 PH CH 0 AR RI [address] #7 OP MG 17 HE 4 R TA M BL ET EN 64 06 07 00 12 30 K- 68 BA Ac AL 67 -1 -0 0. MA 53 IL ti AP 90 2- 3- 00 RT 98 EY ve RI 92 20 20 0 0 L 50 08 08 PH CH MA 2 AR RI LE M ST AT #7 OP E 17 HE 10 4 R M MG TA B GL 00 06 07 00 30 15 [...] MG 4 R M TA BL ET TR 00 06 07 00 30 30 K- 68 BA Ac IC 07 -1 -0 .0 MA 53 IL ti OR 46 2- 3- 00 RT 99 EY ve 12 20 20 1 14 39 08 08 PH CH 5 0 AR RI MG M ST #7 OP TA 17 HE BL 4 R ET M 00 06 07 00 12 30 K- 68 BA Ac 78 -1 -0 0. MA 54 IL ti 15 3- 3- 00 RT 03 EY ve 05 20 20 0 1 00 08 08 PH CH [address] #7 OP 17 HE 4 R M 64 04 06 02 30 30 CE 33 Ac 01 -0 -1 .0 DA 52 ND ti 10 1- 2- 00 R 99 UM ve 16 20 20 TR AL 32 08 08 AC LA 6 E PH GO M PI IN K C 00 04 06 02 90 30 CE [...] IN HE BL C R ET M NH 68 05 06 00 12 4 K- 68 HU Ac OM 38 -3 -1 .0 MA 53 NT ti ET 20 1- 2- 00 RT 23 ER ve CASTELAN 04 20 20 6 ZI 10 08 08 PH BR NE 1 AR IA M N 25 #7 17 MG 4 TA BL ET TR 00 05 06 00 24 30 K- 68 BA Ac AM 37 -2 -0 0. MA 52 IL ti AD 84 3- 5- 00 RT 83 EY ve OL 15 20 20 0 5 10 08 08 PH CH HC 5 AR RI L M [address] 50 #7 OP 17 HE MG 4 R M TA BL ET FU 00 03 06 02 30 30 CE 33 No Ac RO 78 -2 -0 .0 DA 49 t ti SE 11 4- 5- 00 R 51 Av ve PR 96 20 20 TR ai DE 61 [...] e M IN C AC 64 03 06 02 30 30 [...] e M IN C LY 00 03 06 02 90 30 CE 33 No Ac RI 07 -2 -0 .0 DA 49 t ti CA 11 4- 5- 00 R 40 Av ve 01 20 20 TR ai 15 66 08 08 AC la 0 8 E bl MG PH e M CA IN PS C UL E FL 00 03 06 02 16 25 CE 33 No Ac UT 05 -2 -0 .0 DA 49 t ti IC 43 4- 5- 00 R 43 Av ve 27 20 20 TR ai ON 09 08 08 AC la E 9 E bl NH PH e OP M IN 50 C [...] IN C TA BL ET 67 03 06 02 90 30 [...] e M TA IN BL C ET 49 03 06 02 60 30 CE 33 No Ac 88 -2 -0 .0 DA 49 t ti 40 4- 5- 00 R 47 Av ve 54 20 20 TR ai 40 08 08 AC la 5 E bl PH e M IN C GE 00 03 06 02 60 [...] 1 IN MG C TA BL ET EN 51 03 05 02 12 30 [...] e M IN C LO 00 03 05 01 30 30 [...] PH e M IN C 67 03 05 01 90 30 CE [...] 4- 8- 00 R 51 Av ve PR 96 20 20 TR ai DE 61 [...] 08 AC la E 9 E bl NH PH e OP M IN 50 C [...] e M TA IN BL C ET AC 64 03 05 01 30 [...] e M TA IN BL C ET 00 03 05 01 60 30 CE [...] M CA IN PS C UL E EN 51 03 04 01 12 30 CE 33 No Ac AL 67 -2 -2 0. DA 49 t ti AP 24 4- 4- 00 R 41 Av ve RI 03 20 20 0 TR ai L 90 08 08 AC la MA 1 E bl LE PH e AT M E IN 10 C MG TA B CLARK 53 04 04 00 14 7 CE 33 No Ac LF 48 -1 -2 .0 DA 57 t ti AM 90 8- 4- 00 R 55 Av ve ET 14 20 20 TR ai HO 60 08 08 AC la XA 1 E bl ZO PH e LE M -T IN MP C DS TA BL ET DI 57 03 04 00 30 30 K- 68 No Ac GO 66 -1 -1 .0 MA 48 t ti XI 40 8- 7- 00 RT 60 Av ve N 44 20 20 6 ai 0. 18 08 08 PH la 25 8 AR bl M e MG #7 17 TA 4 BL ET LY 00 03 04 00 90 30 K- 44 No Ac RI 07 -1 -1 .0 MA 50 t ti CA 11 8- 7- 00 RT 91 Av ve 01 20 20 6 ai 15 66 08 08 PH la 0 8 AR bl MG M e #7 CA 17 PS 4 UL E CR 00 03 04 00 30 30 K- 68 No Ac ES 31 -1 -1 .0 MA 48 t ti TO 00 8- 7- 00 RT 60 Av ve R 75 20 20 8 ai 10 19 08 08 PH la 0 AR bl MG M e #7 TA 17 BL 4 ET EN 64 03 04 00 12 [...] M e #7 17 4 FU 00 03 04 00 30 30 K- 68 No Ac RO 37 -1 -1 .0 MA 48 t ti SE 80 8- 7- 00 RT 60 Av ve PR 21 20 20 5 ai DE 61 08 08 PH la 0 AR bl 40 M e #7 MG 17 4 TA BL ET ME 00 03 04 00 60 30 K- 68 No Ac TO 37 -1 -1 .0 MA 48 t ti NH 80 8- 7- 00 RT 60 Av ve OL 03 20 20 2 ai OL 21 08 08 PH la 0 AR bl TA M e RT #7 RA 17 TE 4 50 MG TA B TR 00 03 04 00 30 30 K- 68 No Ac IC 07 -1 -1 .0 MA 48 t ti OR 46 8- 7- 00 RT 60 Av ve 12 20 20 3 ai 14 39 08 08 PH la 5 0 AR bl MG M e #7 TA 17 BL 4 ET AC 64 03 04 00 30 30 K- 68 No Ac TO 76 -1 -1 .0 MA 48 t ti S 40 8- 7- 00 RT 60 Av ve 30 30 20 20 7 ai 11 08 08 PH la MG 4 AR bl M e TA #7 BL 17 ET 4 62 03 04 00 30 30 CE [...] E IN 10 C MG TA B FU 00 03 04 00 30 30 CE 33 No Ac RO 78 -2 -1 .0 DA 49 t ti SE 11 4- 0- 00 R 51 Av ve PR 96 20 20 TR ai DE 61 [...] e M IN C AC 64 03 04 00 30 30 CE 33 No Ac TO 76 -2 -1 .0 DA 49 t ti S 40 4- 0- 00 R 50 Av ve 30 30 20 20 TR ai 11 08 08 AC la MG 4 E bl PH e TA M BL IN ET C LO 00 03 04 00 30 [...] PH e M IN C 67 03 04 00 90 30 [...] 08 AC la E 9 E bl NH PH e OP M IN 50 C [...] M MG IN C TA BL ET DI 00 01 04 02 60 30 EC 46 No Ac AZ 37 -2 -1 .0 ON 58 t ti EP 80 9- 0- 00 OM 43 Av ve AM 27 20 20 Y 4 ai [address] la 1 UG bl MG e CO TA BL IN ET C 49 03 04 00 60 30 [...] TA IN BL C ET 64 04 04 00 30 30 CE 33 No Ac 01 -0 -1 .0 DA 52 t ti 10 1- 0- 00 R 99 Av ve 16 20 20 TR ai 32 08 08 AC la 6 E bl PH e M IN C 00 04 04 00 90 30 [...] 3- 0- 00 R 01 Av ve PR 03 20 20 TR ai N 00 08 08 AC la HC 5 E bl L PH e 1, M 00 IN 0 C MG TA BL ET RE 00 02 04 [...] e CO TA BL IN ET C AC 64 08 03 02 30 30 K- 68 No Ac TO 76 -2 -2 .0 MA 43 t ti S 40 7- 6- 00 RT 15 Av ve 30 30 20 20 8 ai 11 07 08 PH la MG 4 AR bl M e TA #7 BL 17 ET 4 FU 00 08 03 02 30 30 K- 68 No Ac RO 37 -2 -2 .0 MA 43 t ti SE 80 7- 6- 00 RT 16 Av ve PR 21 20 20 1 ai DE 61 07 08 PH la 0 AR bl 40 M e #7 MG 17 4 TA BL ET LY 00 12 03 02 90 [...] AR bl M e #7 17 4 RE 00 02 03 00 30 30 CE 33 No Ac QU 00 -0 -2 .0 DA 36 t ti IP 74 8- 6- 00 R 56 Av ve 1 89 20 20 TR ai 22 08 08 AC la MG 0 E bl PH e TA M BL IN ET C DI 57 08 03 02 30 30 K- 68 No Ac GO 66 -2 -2 .0 MA 43 t ti XI 40 7- 6- 00 RT 16 Av ve N 44 20 20 0 ai 0. 18 07 08 PH la 25 8 AR bl M e MG #7 17 TA 4 BL ET CR 00 12 03 02 [...] AR bl M e #7 17 4 TR 00 08 03 02 30 30 K- 68 No Ac IC 07 -2 -2 .0 MA 43 t ti OR 46 7- 6- 00 RT 16 Av ve 12 20 20 4 ai 14 39 07 08 PH la 5 0 AR bl MG M e #7 TA 17 BL 4 ET ME 68 12 03 02 12 30 CE 33 No Ac TF 38 -2 -2 0. DA 20 t ti OR 20 1- 6- 00 R 69 Av ve PR 02 20 20 0 TR ai N [...] 2 UG bl e CO IN C EN 64 08 03 02 12 30 K- 68 No Ac AL 67 -2 -2 0. MA 43 t ti AP 90 7- 6- 00 RT 17 Av ve RI 92 20 20 0 7 ai L 50 07 08 PH la MA 2 AR bl LE M e AT #7 E 17 10 4 MG TA B ME 00 08 03 02 60 30 K- 68 No Ac TO 37 -2 -2 .0 MA 43 t ti NH 80 7- 6- 00 RT 16 Av ve OL 03 20 20 7 ai OL 21 07 08 PH la 0 AR bl TA M e RT #7 RA 17 TE 4 50 MG TA B TR 00 08 03 [...] AR bl M e #7 17 4 60 08 03 01 60 30 K- [...] e TA #7 BL 17 ET 4 LY 00 12 03 01 90 30 K- 44 No Ac RI 07 -1 -2 .0 MA 50 t ti CA 11 9- 5- 00 RT 11 Av ve 01 20 20 3 ai 15 66 07 08 PH la 0 8 AR bl MG M e #7 CA 17 PS 4 UL E FU 00 08 03 01 30 30 K- 68 No Ac RO 37 -2 -2 .0 MA 43 t ti SE 80 7- 5- 00 RT 16 Av ve PR 21 20 20 1 ai DE 61 07 08 PH la 0 AR bl 40 M e #7 MG 17 4 TA BL ET ME 68 12 03 01 12 30 CE 33 No Ac TF 38 -2 -2 0. DA 20 t ti OR 20 1- 5- 00 R 69 Av ve PR 02 20 20 0 TR ai N [...] -2 -2 .0 MA 43 t ti NH 80 7- 5- 00 RT 16 Av ve OL 03 20 20 7 ai OL 21 07 08 PH la 0 AR bl TA M e RT #7 RA 17 TE 4 50 MG TA B EN 64 08 03 01 12 30 K- 68 No Ac AL 67 -2 -2 0. MA 43 t ti AP 90 7- 5- 00 RT 17 Av ve RI 92 20 20 0 7 ai L 50 07 08 PH la MA 2 AR bl LE M e AT #7 E 17 10 4 MG TA B AC 00 01 03 00 12 30 [...] Procedure DOS Code Location Performer Comment MEASUREME [id number] RADHA GARCIA NT 5 [facility] RT HEART PERQ TRANSFUSI [id number] RADHA GARCIA ON 5 W W NONAUTO [facility] CELLS PERIPH VN PERQ LEFT 3722 [facility] 5 Y Y [facility]ARD[facility] CATHETERI ZATION CORONARY 8856 [facility] ARTERIOGR 5 Y Y [facility] USING TWO CATHETERS INSERTION 3607 [facility] ING COR[facility]ARY ARTERY ST[facility] INSERT[facility] 0046 [facility] 5 Y Y [facility] STENTS PERQ 0066 [facility] 5 Y Y [facility] CORONARY ANGIOPLAS TY PTCA INSERTION [id number] [facility] TOTALLY 1 [facility] IMPL MEDICAL MEDICAL VASCULAR CE CE ACCESS DEVICE Encounters Encounter Start End Date Code Location Performer Type Date [facility] - 7 7 [facility] - 7 7 [facility] - 7 7 [facility] 7 7 [facility] 7 7 [facility] - 7 7 [facility] - 7 7 [facility] - 7 7 [facility] - 7 7 [facility] - 6 6 [facility] - 6 6 [facility] - 6 6 [facility] - 6 6 [facility] - 6 6 [facility] - 6 6 [facility] 6 6 [facility] 6 6 [facility] - 6 6 [facility] - 6 6 [facility] - 6 6 [facility] 6 6 [facility] 6 6 [facility] 5 [facility] ME[facility] 5 5 [facility] 5 [facility] 5 [facility] 5 5 [facility] - 5 5 [facility]PATIENT [facility] 5 5 [facility] [place] - 5 5 [facility] 5 5 [facility] OUT[facility]IEN [facility] 5 5 [facility] OUTPATIEN [facility] - OTHER 5 5 [facility] 5 5 [facility] OUTPATIEN [facility] 5 5 [facility] SOCRATES [facility] 5 5 [facility]PATIEN [facility] 5 5 [facility] SOCRATES [facility] 5 5 [facility] OUTPATIEN [facility] 5 5 [facility] - 5 5 [facility] - 5 5 [facility], 5 5 HOME OUTPATIEN [facility], 5 5 [facility]PAT[facility], 5 5 [facility] 4 4 [facility]PATIEN [facility] - 4 4 [facility] [place] - 4 4 [facility]PATIEN [facility] 4 4 [facility] 4 4 [facility] [place] - 4 4 [facility] OUTPATIEN [facility] - 4 4 [facility] 4 4 [facility] [place] - 4 4 [facility] - 4 4 [facility] 4 4 [facility] - 3 3 [facility] [place] - 3 3 [facility] [place] [facility] 3 3 [facility] OUTPATIEN [facility] 3 3 [facility] [place] - 2 2 [facility]IEN [facility] [place] - 2 2 [facility] [place] - 1 1 [facility] 1 [facility] [place] - [facility] 1 [facility] [place] - 0 0 [facility] [place] - 0 0 [facility] [place] [facility] 0 0 [facility] 0 0 [facility] - 9 9 MED[facility] OUTPATIEN [facility] [place] - 9 9 [facility] [place] - 9 9 [facility] [place] - 8 8 [facility] [place] - 8 8 [facility] [place] - 8 8 [facility] [place] - 8 8 [facility] [place] - 8 8 [facility] [place] - 8 8 [facility] [place] - 8 8 [facility] [place] - 8 8 [facility] [place] - 8 8 [facility] [place] - 8 8 [facility] [place] - 8 8 [facility] [place] - 8 8 [facility] [place] [id number] [place] [facility] [place] [facility]
--- OUTSIDE RECORDS SUMMARY | 2017-03-14 16:09 | External Medical Summary Rpt | CCD ---
Author Author , NOREEN Thomas NOREEN Address Unknown Phone [email or web address] Providers Care Circuit Board Repair Technician Name Role Phone [facility], [facility] Unavailable Unavailable [facility] Unavailable Unavailable [facility], [facility] Unavailable Unavailable [facility], [facility] RHODA BACA MD, [facility], Unavailable Unavailable RHODA BACA MD, PSC [facility] Unavailable [place], [facility] [place] KENTON ARMIJO, Unavailable Unavailable [facility] MD, Unavailable Unavailable [facility], ROSY POWELL MD, [facility] MASSIMO MARISCAL Unavailable Unavailable M, MASSIMO MARISCAL, Unavailable Unavailable M.Marko.P.S.CIrena, LES MARCH M.D.P.S.CIrena [facility], Unavailable Unavailable [facility] BHAGRATH, KSENIA S, Unavailable Unavailable BHAGRATH, KSENIA S [facility] Unavailable Unavailable ON RED, [facility] Un[facility] Unavailable SERVICE, [facility] Unavailable Unavailable SERVICE, [facility]available Unavailable SERVICE[facility]available Unavailable [facility]ULTANT[facility], [facility], Unavailable Unavailable [facility], Unavailable Unavailable [facility] Unavailable Unavailable [facility] ALESSANDRA-ERIC, Unavailable Unavailable JERMAINEYANG ARMENDARIZ, JERMAINE INDY [facility], Unavailable Unavailable INDY K[facility] Unavailable [facility], [facility], [place], Unavailable Unavailable KEY, [place] [facility] Unavailable Unavailable KIDNEY CARE, [facility]available Unavailable [facility], [facility], Unavailable Unavailable [facility] Unavailable Unavailable INC, [facility] FALLIS DIANA, FALLIS Unavailable Unavailable DIANA [facility] Unavailable Unavailable [address]471, [facility][id number] MORRO ZHENG, Unavailable Unavailable MORRO ZHENG GUNDUMALLA, ISABEL K, Unavailable Unavailable GUNDUMALLA, ISABEL K [facility] Unavailable Unavailable PHARMACY, [facility] Unavailable Unavailable [facility] Unavailable Unavailable INC, [facility] Unavailable Unavailable HOSPITAL, [facility] Unavailable Unavailable HOSPITAL P, [facility] P [facility] Unavailable Unavailable MEDICAL CE, [facility] Unavailable Unavailable MEDICAL CENT, [facility] Unavailable Unavailable INC, [facility], [facility]available Unavailable [facility] Unavailable Unavailable PLL[facility], [facility], Unavailable Unavailable HOSPICE [facility] Unavailable Unavailable PHYSICIANS, [facility] RIAN, VANDANA Cox, RIAN, Unavailable Unavailable VANDANA [facility] Unavailable Unavailable [place], [facility] [place] [facility], Unavailable Unavailable [id number] Unavailable Unavailable [id number] Unavailable Unavailable PHARMACY, [facility] Un[facility] Un[facility], [facility] & Unavailable Unavailable VASCULAR PH, [facility] Unavailable Unavailable IMAGING ASS, [facility] # Unavailable Unavailable [id number], [facility] # [id number] [facility] [id number] # Unavailable Unavailable 7174, [facility] [id number] # [id number] [facility] Unavailable Unavailable [facility], [facility] Un[facility], [facility] Unavailable [facility]available [facility], [facility] LUIS E HAM, LUIS E [facility] Unavailable Unavailable [facility] Unavailable Unavailable ASSOCIAT, [facility] Unavailable Unavailable SURGERY, [facility] Unavailable Unavailable MEDICAL, [facility] Un[facility] Unavailable LLC, [facility] Unavailable [facility]available PHARMACY, [facility], Unavailable Unavailable [facility] Un[facility], [facility] Unavailable Unavailable AMBULANCE SE, [facility], Unavailable Unavailable PLLC, [facility] KRAFT ANTONINA, KRAFT Unavailable Unavailable ANTONINA [facility], Unavailable Unavailable [facility] PAWSAT, PAWSAT Unavailable Unavailable PAWSAT MAR, PAWSAT Unavailable Unavailable MAR HURLEYRICHARD FERRERA W, Unavailable Unavailable HURLEYRICHARD FERRERA W PEASI, PEASI Unavailable Unavailable [facility] Unavailable Unavailable PRACTICE CL, [facility] Unavailable Unavailable AM[facility]ULAN, [facility] Unavailable Unavailable [facility], [facility], Unavailable Unavailable [facility] Unavailable Unavailable SERVICE, [facility] PROVID[facility] Unavailable Unavailable SERVICES IN, [facility] Unavailable Unavailable [facility], [facility] Unavailable Unavailable [id number] # [id number], [facility] [id number] # [id number] [facility] Unavailable Unavailable HEALTH CARE, [facility] [employer] [facility], Unavailable [facility]available [facility] KETTY BROTHERS, ZEV, Unavailable Unavailable KETTY C [facility] Unavailable Unavailable EQUIPME, [facility], Unavailable Unavailable [facility] ZE BLACKWELL, Unavailable Unavailable ZE BLACKWELL [facility] Unavailable Unavailable HOSPITALS, [facility], Unavailable Unavailable [facility], Unavailable Unavailable [facility] # Unavailable Unavailable [id number], [email or web address] # [id number] [facility] Unavailable Unavailable AGENCY, [facility] ZE MAN, Unavailable Unavailable ZE MAN WILLIAM Unavailable Unavailable ALEXANDREA Clemente WILLIAM H ZAMBOS, PHILIP N, Unavailable Unavailable MICHAEL DE LA ROSA Purpose Continuity of Care Document - 10-31-2006 through 2016 Problems Code Diagnosis DOS Provider Status I129 HYPERTENSIV 02-19-2017 CORAL Roberts CKD PHYSICIANS, W/STAGE 1-4 [facility] CKD OR UNS CKD M069 RHEUMATOID 02-19-2017 [facility]TH[facility]IS [facility] UNSPECIFIED SERVICE N189 CHRONIC 02-19-2017 [facility] KIDNEY PHYSICIANS, DISEASE [facility] UNSPECIFIED R0602 SHORTNESS 02-19-2017 COR[facility] OF BREATH PHYSICIANS, [facility] R0689 OTHER 02-19-2017 [facility] ABNORMALITI [facility] ES OF AMBULANCE BREATHING SE R600 LOCALIZED 02-19-2017 [facility] EDEMA [facility] AMBULANCE SE Z7409 OTHER 02-19-2017 [facility] REDUCED AMBULANCE MOBILITY SERVICE I10 ESSENTIAL 02-15-2017 [facility] HYPERTENSIO ASSOCIATES N N183 CHRONIC 02-15-2017 [facility] DISEASE [facility]OCIATES STAGE 3 MODERATE N179 ACUTE 02-12-2017 [facility] FAILURE [facility] UNSPECIFIED [id number] ULCERATIVE 01-29-2017 [place] [facility] LEFT LOWER [...] INC WITHOUT ESOPHAGITIS R079 CHEST PAIN 01-27-2017 [place] [facility] Z794 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 01-27-2017 [facility] CURRENT USE [facility] OF INSULIN INC Z7982 SKILLED NURSING 01-27-2017 [facility] CURRENT USE [facility] OF ASPIRIN INC I2510 ASHD [place] 01-22-2017 CORONARY [facility]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/O HOSPITALS ANGINA PECTORIS I252 OLD 01-22-2017 MYOCARDIAL [facility] INFARCTION HOSPITALS I255 ISCHEMIC 01-22-2017 CARDIOMYOPA [facility] THY HOSPITALS I472 VENTRICULAR 01-22-2017 [facility] TACHYCARDIA HOSPITALS I5022 CHRONIC 01-22-2017 SYSTOLIC [facility] CONGESTIVE HOSPITALS HEART FAILURE I509 HEART 01-22-2017 [facility] FAILURE [facility]ALTH UNSPECIFIED ASSOCIATES R0609 OTHER FORMS 01-22-2017 [facility] D[facility] HOSPITALS H16065 PRESENCE 01-22-2017 AUTO [facility] IMPLANTABLE HOSPITALS CARDIAC DEFIBRILLAT OR R918 OTHER 01-19-2017 [facility] NONSPECIFIC [facility] ABNORMAL FINDING OF LUNG FIELD E785 HYPERLIPIDE 01-18-2017 [facility] HEALTH UNSPECIFIED ASSOCIATES G894 CHRONIC 01-14-2017 [facility] PA[facility] SYNDROME HEALTH CARE N19 UNSPECIFIED 01-14-2017 [facility] KIDNEY [facility] FAILURE HEALTH CARE Z950 PRESENCE OF 01-14-2017 [facility] CARDIAC [facility] CARE Z955 PRESENCE OF 01-11-2017 CORONARY [facility] ANGIOPLASTY HOSPITALS IMPLANT & GRAFT M6281 MUSCLE 01-05-2017 [facility] WEAKNESS AMBULANCE GENERALIZED SERVICE C98145 OTHER LONG 01-05-2017 [facility] P DRUG THERAPY Z882 ALLERGY 01-05-2017 [facility] STATUS TO MEM [facility]OS[facility] SULFONAMIDE INC S STATUS R609 EDEMA 01-04-2017 [facility] UNSPECIFIED [facility]ARE HOSPITALS E139 OTH SPEC 01-01-2017 [facility] DIABETES PHYSICIANS MELLITUS GROUP W/O COMPLICATIO NS E875 HYPERKALEMI 01-01-2017 [facility] A PHYSICIANS GROUP I5020 UNSPECIFIED 01-01-2017 [facility] SYSTOLIC PHYSICIANS CONGESTIVE GROUP HEART FAILURE Z4502 ENCOUNTER 12-21-2016 [facility] AUTO HOSPITALS IMPLANTABL CARD DEFIB N390 URINARY 12-16-2016 [facility] INFECTION [facility]OCIATES SITE NOT SPECIFIED R001 BRADYCARDIA 12-14-2016 [facility] UNSPECIFIED FOUNDATION R69 ILLNESS 12-14-2016 [...] FAILURE HOSPITALS WITH HYPERCAPNIA R0600 DYSPNEA 12-13-2016 [facility] UNSPECIFIED SERV FOUNDATION D631 ANEMIA IN 12-04-2016 [facility] CHRONIC SERV KIDNEY [facility]OUNDATION DISEASE N250 RENAL 12-04-2016 [facility] OSTEODYSTRO SERV PHY FOUNDATION J129 VIRAL 11-28-2016 [facility] PNEUMONIA [facility] UNSPECIFIED R339 RETENTION 11-21-2016 [facility] OF URINE [facility] P R338 OTHER 11-14-2016 QUALITY RETENTION PROVIDER OF URINE SERVICES IN F36339 PRESSURE 10-14-2016 [facility] ULCER OF PROVIDER RIGHT HEEL SERVICES IN UNSTAGEABLE M11560 NON-PRSS 10-14-2016 QUALITY CHR ULCR PROVIDER UNS PART SERVICES IN UNS LOW LEG UNS SEV J189 PNEUMONIA 09-29-2016 [facility] UNSPECIFIED PHYSICIANS ORGANISM GROUP N289 DISORDER OF 09-29-2016 [facility] KIDNEY AND PHYSICIANS URETER GROUP UNSPECIFIED R05 COUGH 09-28-2016 [facility] AMBULANCE SE I5021 ACUTE 09-08-2016 [facility] SYSTOLIC SERV CONGESTIVE FOUNDATION HEART FAILURE R279 UNSPECIFIED 09-08-2016 [facility] LACK OF MEDICAL COORDINATIO RESPONSE N I130 HTN HEART & 09-07-2016 [place] [facility] CKD W/HF & SERV CKD STAGE FOUNDATION 1-4 OR UNS CKD I5023 ACUTE CHRON 09-07-2016 [place] [facility] SYSTOLIC SERV HEART FOUNDATION FAILURE I517 CARDIOMEGAL 09-07-2016 [place] [facility] Y SERV [facility] J9601 ACUTE 09-07-2016 [place] [facility] RESPIRATORY SERV FAILURE FOUNDATION WITH HYPOXIA R778 OTHER 09-07-2016 [facility] SPECIFIED SERV ABNORMALITI FOUNDATION ES OF PLASMA PROTEINS I214 NON-ST 09-06-2016 [facility] HOSPITALS INFARCTION I4581 LONG QT 09-06-2016 [place] [facility] SYNDROME SERV FOUNDATION J9691 RESPIRATORY 09-06-2016 [place] [facility] FAILURE SERV UNSPECIFIED FOUNDATION WITH HYPOXIA R9431 ABNORMAL 09-06-2016 [facility] ELECTROCARD SERV IOGRAM FOUNDATION E1165 TYPE 2 09-05-2016 [facility] P WITH HYPERGLYCEM IA H35289 PAIN IN 09-05-2016 [place] RIGHT LEG MEDICAL IMAGING ASS G65769 PAIN IN 09-05-2016 [place] LEFT LEG MEDICAL IMAGING ASS M7989 OTHER 09-05-2016 [place] SPECIFIED MEDICAL SOFT TISSUE IMAGING ASS DISORDERS R269 UNSPECIFIED 09-05-2016 [facility] ABNORMALITI AMBULANCE ES OF GAIT SE AND MOBILITY R531 WEAKNESS 09-05-2016 [facility] AMBULANCE SE Z8679 PERSONAL 09-05-2016 [facility] HISTORY OTH PHYSICIANS, DISEASES [facility] CIRCULATORY SYSTEM Z7401 BED 08-30-2016 [facility] AMBULANCE STATUS SERVICE E109 TYPE 1 08-14-2016 [facility] DIABETES HEALTH MELLITUS ASSOCIATES WITHOUT COMPLICATIO NS L0390 CELLULITIS 08-14-2016 [facility] UNSPECIFIED HEALTH ASSOCIATES M869 OSTEOMYELIT 08-11-2016 [facility] IS MOBILE XRAY UNSPECIFIED SERVICE R0989 OTH SPEC SX 07-20-2016 [facility]AL[facility] & SIGNS MOBILE XRAY INVLV THE SERVICE CIRC & RESP SYS E1151 TYPE 2 DM 05-11-2016 [facility] W/DIAB PERIPH 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 X18856 PRESSURE 05-11-2016 [facility] ULCER OF RIGHT ANKLE STAGE 2 K54833 PRESSURE 05-11-2016 [facility] ULCER OF LEFT ANKLE UNSTAGEABLE M1990 UNSPECIFIED 05-06-2016 [facility] AMBULANCE OSTEOARTHRI SERVICE TIS UNSPECIFIED SITE R0789 OTHER CHEST 05-06-2016 [facility] PAIN PHYSICIANS, [facility] N08351 CELLULITIS 04-25-2016 [facility] OF RIGHT LOWER LIMB L26990 PRESSURE 04-25-2016 [facility] ULCER OF RIGHT HEEL STAGE 2 E559 VITAMIN D 04-24-2016 [facility] DEFICIENCY HEALTH UNSPECIFIED ASSOCIATES L089 LOCAL INF 04-18-2016 [facility] THE SKIN & HEALTH SUBCUTANEOU ASSOCIATES S TISSUE UNS R319 HEMATURIA 04-18-2016 [facility] G92663 UNSPECIFIED 04-17-2016 [facility]LE[facility] [place] RIGHT LOWER EYELID T39935S UNSPECIFIED 03-29-2016 [facility] OPEN WOUND HEALTH LOWER ASSOCIATES LEG INITIAL ENC G30703 PAIN IN 03-20-2016 [facility] LEFT KNEE [facility] INC M179 OSTEOARTHRI 02-22-2016 [facility] TIS OF KNEE MEM HOS[facility] INC UNSPECIFIED N4889 OTHER 02-18-2016 [facility] SPECIFIED [facility] P OF PENIS N489 DISORDER OF 02-18-2016 [facility] UNSPECIFIED AMBULANCE SE R3989 OTH 02-18-2016 [facility] SYMPTOMS & [facility] SIGNS AMBULANCE INVOLVING SE THE SYSTEM R52 PAIN 02-18-2016 [facility] UNSPECIFIED [facility] AMBULANCE SE R534KEI UNS COMP 02-18-2016 [facility] PROSTH [facility] DEVICE IMPL AMBULANCE & GRAFT SE INIT ENC R1084 GENERALIZED 02-13-2016 [facility] ABDOMINAL EMERGENCY PAIN AMBULAN R1930 ABDOMINAL 02-13-2016 [facility] RIGIDITY [facility]GENC[facility] UNSPECIFIED AMBULAN SITE R5381 OTHER 02-13-2016 [facility] MALAISE AMBULANCE SERVICE Z466 ENCOUNTER 02-13-2016 [facility] FITTING AND PHYSICIANS, ADJUSTMENT [facility] URINARY DEVICE E118 TYPE 2 02-04-2016 [facility] DIABETES [facility] MELLITUS INC W/UNS COMPLICATIO NS Z539 PROCEDURE & 02-04-2016 [facility] TREATMENT [facility] NOT CARRIED INC OUT UNS REASON M169 OSTEOARTHRI 01-10-2016 RHODA BACA TIS OF HIP , [facility] UNSPECIFIED U98148 PAIN IN 01-10-2016 [facility] UNSPECIFIED [facility] HIP INC H01582 PAIN IN 01-10-2016 [facility] UNSPECIFIED [facility] KNEE INC E878 OTHER D/O 12-27-2015 [facility] OF HEALTH ELECTROLYTE ASSOCIATES AND FLUID BALANCE NEC Q48844 OTHER 12-17-2015 [facility] SPECIFIED [facility]OS[facility] RHEUMATOID INC ARTHRITIS LEFT HIP M1612 UNILATERAL 12-17-2015 [facility] PRIMARY [facility] OSTEOARTHRI INC TIS LEFT HIP I14088 PAIN IN 12-07-2015 [facility] LEFT THIGH [facility] INC F41792 PAIN IN 12-07-2015 [facility] LEFT LOWER [facility] LEG INC E98230 PAIN IN 12-06-2015 [facility] LEFT HIP [facility] INC P23988 NON-PRSS 11-24-2015 [facility] CHRN ULCER PHYSICIANS SKIN OTH GROUP SITES UNS SEVERITY Z82088 TYPE 2 11-16-2015 [place] D[facility] DIABETES MELLITUS WITH FOOT ULCER M2570 OSTEOPHYTE 11-16-2015 [place] [facility] UNSPECIFIED JOINT J48976 PAIN IN 10-19-2015 [place] [facility] RIGHT FOOT D509 IRON 09-29-2015 [facility] DEFICIENCY HEALTH ANEMIA ASSOCIATES UNSPECIFIED J93093 COMBINED 08-24-2015 [facility] CATARACT LEFT EYE H269 UNSPECIFIED 08-24-2015 [facility] CATARACT [facility] INC B62164 COMBINED 07-27-2015 [facility] CATARACT RIGHT EYE E46 UNSPECIFIED 2015 [facility] PROTEIN[facility]EVGENY ASSOCIATES ORIE MALNUTRITIO N R87515 COMBINED 06-22-2015 [facility]-RELATED INSTITUTE CATARACT BILATERAL H538 OTHER 06-22-2015 [place] [facility] DISTURBANCE INSTITUTE S N186 END STAGE 05-24-2015 [facility] RENAL HEALTH DISEASE ASSOCIATES 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 [facility] CY CHRONIC PERIPHERAL I071 RHEUMATIC 05-11-2015 [facility] TRICUSPID SERV INSUFFICIEN FOUNDATION CY 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 05-11-2015 [facility] C MITRAL SERV VALVE FOUNDATION INSUFFICIEN CY Z0189 ENCOUNTER 05-06-2015 NATACHA CLEARY OTHER AMB SERVICE SPECIFIED SPECIAL EXAMINATION S E1136 TYPE 2 04-29-2015 [place] [facility] WITH DIABETIC CATARACT H2513 AGE-RELATED 04-29-2015 [place] [facility] CENTER BILATERAL N43366 CATARACT 04-29-2015 [facility] SECONDARY TO OCULAR DISORDERS UNS EYE I5032 CHRONIC 04-29-2015 [facility] DIASTOLIC CONGESTIVE HEART FAILURE R5382 CHRONIC 04-29-2015 [facility] FATIGUE UNSPECIFIED 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 M7731 CALCANEAL 03-30-2015 [place] SPUR RIGHT MEDICAL FOOT IMAGING ASS M059 RA WITH 03-23-2015 [facility] RHEUMATOID EMERGENCY FACTOR AMBULAN UNSPECIFIED D75451 PAIN IN 03-23-2015 [facility] UNSPECIFIED EMERGENCY LIMB AMBULAN D92293N LACERATION 03-23-2015 [facility] W/FOREIGN EMERGENCY BODY UNS AMBULAN FOOT INITIAL ENC Z7901 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 03-16-2015 [facility] CURRENT USE HEALTH OF ASSOCIATES ANTICOAGULA NTS G8929 OTHER 02-25-2015 [facility] CHRONIC EMERGENCY PAIN AMBULAN J9690 RESP FAIL 02-25-2015 [facility] UNS UNS EMERGENCY WHETHER AMBULAN W/HYPOXIA/H YPERCAPNIA E975 02-24-2015 [facility] A419 SEPSIS 02-18-2015 [facility] UNSPECIFIED HEALTH ORGANISM ASSOCIATES E0590 THYROTOXICO 02-18-2015 [facility] SIS UNS W/O HEALTH THYROTOXIC ASSOCIATES CRISIS/STOR M R350 FREQUENCY 02-18-2015 [facility] MICT[facility] R7989 OTHER SPEC 02-18-2015 [facility] ABNORMAL HEALTH FINDINGS ASSOCIATES BLOOD CHEMISTRY R4182 ALTERED 01-22-2015 [facility] MENTAL EMERGENCY STATUS AMBULAN UNSPECIFIED I270 PRIMARY 01-21-2015 [facility] PULMONARY LAR HYPERTENSIO CONSULTANTS N O W94677 ASHD [place] 01-19-2015 [facility] COR ARTREY LAR W/UNS CONSULTANTS ANGINA O PECTORIS X40164O NONDSPL FX 01-19-2015 [facility] 2ND GENERAL METATARSAL SURGERY RT FT INIT ENC CLOS FX E1365 OTH SPEC 01-16-2015 [facility] DIABETES LAR MELLITUS CONSULTANTS WITH O HYPERGLYCEM IA I272 OTHER 01-15-2015 [facility] PULMONARY MEDICAL HYPERTENSIO N J811 CHRONIC [facility] EDEMA ASSOC[facility]AT J9610 CHRONIC 01-15-2015 [facility] RESPIRATORY REGIONAL FAIL UNS MEDICAL HYPOXIA/HYP ERCAPNIA G71377 NON-PRSS [facility] ULCR RAD[facility]OLOGY OTH PART LT ASSOCIAT FOOT UNS SEVERITY P82550 NON-PRSS 01-15-2015 [facility] CHR ULCR REGIONAL UNS PART LT MEDICAL LOW LEG UNS SEV [id number] DISPLACED 01-15-2015 [facility] 2ND RADIOLOGY METATARSAL ASSOCIAT RT FT INIT CLOS FX I5040 UNSPECIFIED 01-14-2015 [facility] SYSTOLIC & HOSPITAL DIASTOLIC CHF J90 PLEURAL 01-14-2015 [place] [facility]ICAL NOT IMAGING ASS ELSEWHERE CLASSIFIED M0540 RHEUMATOID 01-14-2015 [place] [facility]OP[facility] WITH RA HOSPITAL UNSPECIFIED SITE R590 LOCALIZED 01-14-2015 [place] ENLARGED MEDICAL LYMPH NODES IMAGING ASS 29980 COR 01-13-2015 [facility] ATHEROSLERO LAR UNSPEC CONSULTANTS TYPE VESSEL O [place]/YOVANNY T 4258 CARDIOMYOPA 01-13-2015 [facility] THY OTHER LAR DISEASES CONSULTANTS CLASSIFIED O ELSW 4280 CONGESTIVE 01-13-2015 [facility] HEART LAR FAILURE [place] O 31682 SHORTNESS 01-13-2015 [facility] OF BREATH LAR CONSULTANTS O 51501 DIAB W/O 01-12-2015 [facility] COMP TYPE [facility] II/UNS NOT HOSPITAL P STATED UNCNTRL 2724 OTHER AND 01-12-2015 [facility] UNSPECIFIED [facility] HYPERLIPIDE NICHOLAS 3384 CHRONIC 01-12-2015 [facility] PAIN [facility] SYNDROME 4019 UNSPECIFIED 01-12-2015 [facility] HYPERTENSIO HOSPITAL P N 4254 OTHER 01-12-2015 [facility] CARDIOMYOPA HOSPITAL P MARNI 4259 UNSPECIFIED 01-12-2015 [facility] SECONDARY [facility] CARDIOMYOPA THY 59325 UNSPECIFIED 01-12-2015 [facility] SYSTOLIC [facility] HEART FAILURE 496 CHRONIC 01-12-2015 [facility] AIRWAY EMERGENCY OBSTRUCTION AMBULAN NEC 77690 ACUTE 01-12-2015 [facility] RESPIRATORY [facility] FAILURE 5849 ACUTE 01-12-2015 [facility] KIDNEY EMERGENCY FAILURE [facility] UNSPECIFIED 5853 CHRONIC 01-12-2015 [facility] KIDNEY [facility] DISEASE STAGE III (MODERATE) 7140 RHEUMATOID 01-12-2015 [facility] AR[facility] 7862 COUGH 01-12-2015 [facility] 91029 SOLITARY 01-12-2015 [facility] V4582 POSTSURG 01-12-2015 [place] [facility] P L COR ANGPLSTY STS V5867 LONG-TERM 01-12-2015 [place] [facility] INSULIN [facility] P V5869 LONG-TERM 01-12-2015 [place] [facility] USE OF HOSPITAL P OTHER MEDICATIONS 36792 01-04-2015 [email or web address] 77498 ATRIAL 12-25-2014 [facility] O 7823 EDEMA 12-25-2014 [facility] AMBULANCE SERVICE 52969 OTHER FLUID 12-24-2014 [facility] 34034 ANEMIA IN 12-24-2014 [facility] DISEASE 49977 HTN CKD UNS 12-24-2014 [facility] W/CKD SERV STAGE I [facility] THRU STAGE IV/UNS 5880 RENAL 12-24-2014 [facility] OSTEODYSTRO [facility] PHY [facility] 4240 MITRAL 12-22-2014 [facility] DISORDERS [facility] 4242 TRICUSPID 12-22-2014 [facility] SPEC NONRHEUMATI C 33095 OCCL&STENOS 12-22-2014 [place] [facility] ART W/O INFARCT 17636 OTHER 12-19-2014 [facility] CHRONIC PHYSICIANS PAIN GROUP 4011 ESSENTIAL 12-19-2014 [facility] HYPERTENSIO PHYSICIANS N, BENIGN GROUP 4439 UNSPECIFIED 12-18-2014 [facility] DISEASE O V4509 OTHER 12-18-2014 [facility] CARDIAC INC DEVICE IN SITU 5601 PARALYTIC 12-09-2014 [facility] ILEUS PHYSICIANS GROUP 7873 FLATULENCE 12-02-2014 [facility] ERUCTATION PHYSICIANS AND GAS GROUP PAIN 51429 ABDOMINAL 12-02-2014 [facility] PAIN, PHYSICIANS UNSPECIFIED GROUP SITE 02017 UNS 12-01-2014 [facility] ASTRODUODIT SERVICE IS W/O MENTION HEMORR 5609 UNSPECIFIED 12-01-2014 [facility]INAL [facility] OBSTRUCTION 02584 CALCU 12-01-2014 [facility] W/O MENTION IMAGING ASS CHOLECYST/O BST V4502 AUTOMATIC 12-01-2014 [facility] IMPLANTABLE [facility] CARDIAC INC DEFIBRILLAT OR SITU 250 DIABETES 11-26-2014 [facility] [place] [address] OTHER 11-23-2014 [facility] SPECIFIED CARDIAC DYSRHYTHMIA S 5851 CHRONIC 11-23-2014 [facility] [place] [address] RESTLESS 11-06-2014 [facility]IMARY SYNDROME CARE 10313 ESOPHAGEAL 11-06-2014 [facility] REFLUX [facility]IMARY [facility] 4293 CARDIOMEGAL 10-13-2014 [place] 88373 OTHER 10-13-2014 [place] DYSPNEA AND [facility]AL MEDICAL CE RESPIRATORY ABNORMALITI ES 5932 ACQUIRED 10-07-2014 [place] [facility] OF [facility]ICAL KIDNEY IMAGING ASS 99748 UNSPECIFIED 09-11-2014 [facility] INFECTION PARTNERS OF OF BONE LEXINGT ANKLE AND FOOT 9597 INJURY 09-11-2014 [facility] CIFIED KNEE INC LEG ANKLE&FOOT V5881 FITTING AND 09-11-2014 [place] ADJUSTMENT MEDICAL OF IMAGING ASS VASCULAR CATHETER 91901 DIAB W/O 09-08-2014 [place] [facility] MENTION SERV COMP TYPE FOUNDATION II/UNS TYPE UNCNTRL 2767 HYPERPOTASS 08-26-2014 [facility] P 412 OLD 08-26-2014 [facility] INFAR[facility] 11307 CORONARY 08-26-2014 [facility] CORONARY ARTERY 5859 CHRONIC 08-26-2014 [facility] DISEASE INC UNSPECIFIED 39081 WHEEZING 08-26-2014 [place] [facility] 1101 DERMATOPHYT 08-14-2014 [facility] OF NAIL 54948 DIAB 08-14-2014 [facility] W/PERIPH CIRC D/O TYPE II/UNS TYPE UNCNTRL 7295 PAIN IN 08-14-2014 [facility] SOFT TISSUES OF LIMB 462 ACUTE 08-08-2014 [facility] INC 17962 OTH NONSPC 08-08-2014 [place] ABN [facility]NG MEDICAL RAD&OTH EXM IMAGING ASS BODY STRUCTURE 714 RA AND 07-23-2014 [facility] OTHER AREA AGENCY INFLAMMATOR ON RED Y POLYARTHROP ATHIES 43386 URINARY 07-09-2014 [facility] 4271 PAROXYSMAL 06-22-2014 [facility] TACHYCARDIA V5331 FITTING AND 06-22-2014 [facility] OF CARDIAC FOUNDATION PACEMAKER V707 EXAMINATION 06-22-2014 [facility] OF SERV PARTICIPANT FOUNDATION IN CLINICAL TRIAL 63802 OTHER 06-21-2014 [facility] PREMATURE SERV BEATS [facility] 06805 NONSPECIFIC 06-21-2014 [facility] ABNORMAL SERV ELECTROCARD FOUNDATION IOGRAM 78637 DIAB 06-18-2014 [facility] TYPE II/UNS TYPE UNCNTRL 90372 ACUT TX 06-18-2014 [facility] IAL INFARCT INIT EPIS CARE 81003 ULCER OF 06-18-2014 [facility] V4589 OTHER 06-18-2014 [facility] POSTSURGICA SERV L STATUS FOUNDATION OTHER 02552 DIAB W/O 06-17-2014 [place] [facility] COMP TYPE I FOUNDATION [JUV TYPE] UNCNTRL 56116 ACUT 06-17-2014 [facility] UNS SERVICE SITE EPIS CARE UNS 59555 ACUTE 06-17-2014 [facility] P UNSPEC SITE INIT EPIS CARE 5180 PULMONARY 06-17-2014 [place] [facility] COLLAPSE SERV [facility] 7850 UNSPECIFIED 06-17-2014 [place] [facility] TACHYCARDIA IMAGING ASS 89855 PRECORDIAL 06-17-2014 [facility] PAIN [facility] SERVICE 3572 POLYNEUROPA 06-10-2014 [facility] IN HEALTH DIABETES AGENCY 38618 ULCER OF 06-10-2014 [facility] OTHER PART HEALTH OF FOOT AGENCY 63326 MUSCLE 06-10-2014 [facility] WEAKNESS [facility]ALTH (GENERALIZE AGENCY D) 6807 CELLULITIS 04-14-2014 [facility] AND ABSCESS PRIMARY OF LEG CARE EXCEPT FOOT 64040 INSOMNIA 03-19-2014 [facility] UNSPECIFIED PRIMARY CARE 02129 UNSPECIFIED 01-22-2014 [facility] [place] [address] ULCER OF 01-22-2014 [facility] INC V571 OTHER 01-22-2014 [facility] THERAPY INC 8911 OPEN WOUND 01-19-2014 [facility] OF KNEE LEG PRIMARY AND ANKLE CARE COMPLICATED 586 UNSPECIFIED 08-27-2013 [place] RENAL REGIONAL FAILURE MEDICAL CE 7038 OTHER 08-27-2013 [facility] SPECIFIED PRIMARY DISEASE OF CARE NAIL 97569 OLECRANON 08-01-2013 [facility] BURSITIS [facility]IMARY CARE 89235 GEN 07-22-2013 [facility] HOME SIS MEDICAL INVOLVING EQUIPME MULTIPLE SITES 86564 GENERALIZED 05-22-2013 [facility] OSTEO[facility]RO SIS UNSPECIFIED SITE 60100 ULCER OF 03-17-2013 [facility] HEEL AND PRIMARY MIDFOOT CARE 7812 ABNORMALITY 03-17-2013 [facility] OF GAIT PRIMARY CARE 17301 OSTEOARTHRO 02-20-2013 [facility] [place] SIS UNSPEC ORTHOPAEDIC WHETHER S PLC GEN/LOC LOWER LEG V0481 NEED 02-12-2013 [facility] PROPHYLACTI PRIMARY C CARE VACCINATION &INOCULATIO N FLU 64774 PAIN IN 11-15-2012 [facility] JOINT, PRIMARY SHOULDER CARE REGION 40334 PAIN IN 11-15-2012 [facility] JOINT, PRIMARY UPPER ARM CARE 46639 UNSPEC 10-08-2012 [facility] POLYAR[facility]ROP C[facility] OF ATHY/POLYAR LEXINGTO THRITIS SITE UNSPEC 25941 DIAB 09-20-2012 [place] W/NEURO REGIONAL MANIFESTS MEDICAL CE TYPE II/UNS TYPE UNCNTRL 4871 INFLUENZA 05-27-2012 [facility] [place] WITH OTHER RESPIRATORY MANIFESTATI ONS 59500 FEVER 02-02-2013 [facility] UNSPECIFIED [place] 4660 ACUTE 04-25-2012 [facility] [place] BRONCHITIS 4658 ACUTE URIS 02-28-2012 [facility] [place] OF OTHER MULTIPLE SITES 58166 PRESSURE 02-28-2012 [facility] [place] [facility]ER HEEL 7993 UNSPECIFIED 01-19-2012 [facility] 07891 OTHER 07-24-2011 [facility] [place] URINARY INCONTINENC E 47204 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 7291 UNSPECIFIED 12-23-2010 [facility] [place] JOSE MARCHPIrenaSKaleigh MYOSITIS 61836 UNSPECIFIED 11-30-2010 [place] LAPAROSCOPI OSTEOMYELIT C & IS ANKLE ADVANCED S AND FOOT 9961 [facility] COMP 11-30-2010 [place] OTH LAPAROSCOPI VASCULAR C & DEVICE ADVANCED S IMPLANT&[place] 94375 FLUSHING 09-20-2010 [facility] [place] [address] PRESSURE 06-14-2010 ROSY Nelson [facility]LCER ANDRE VALDES, UNSPECIFIED LLC SITE 72113 ACUTE 06-14-2010 ROSY Nelson OSTEOMYELIT ANDRE VALDES, IS SITE LLC UNSPECIFIED 37418 ACUTE 06-02-2010 ROSY Nelson OSTEOMYELIT ANDRE VALDES, IS, ANKLE LLC AND FOOT 2859 UNSPECIFIED 05-19-2010 [facility] 43153 UNSPECIFIED 05-19-2010 [facility] CELL[facility] INC ABSCESS OF TOE 20317 PRESSURE 05-19-2010 [facility] SOLUTIONS BUTTOCK 99421 UNSPECIFIED 05-17-2010 [place] LAPAROSCOPI OSTEOMYELIT C & IS OTHER ADVANCED S SPECIFIED SITES 24593 CHEST PAIN 05-17-2010 [place] UNSPECIFIED HEART & VASCULAR PH 6829 CELLULITIS 05-16-2010 [facility] [place] AND ABSCESS IMAGING PSC OF UNSPECIFIED SITE 00923 UNSPECIFIED 05-16-2010 ROSY POWELL MD, OSTEOMYELIT LLC IS SITE UNSPECIFIED 5939 UNSPECIFIED 05-13-2010 [facility] [place] DISORDER IMAGING PSC OF KIDNEY AND URETER 15139 OTHER CHEST 05-13-2010 [place] PAIN LAPAROSCOPI C & ADVANCED S 69877 OTHER 05-13-2010 [facility]TOM[facility] [place] INVOLVING KIDNEY CARE URINARY SYSTEM 34033 PRESSURE 05-12-2010 [place] [address] PRESSURE 05-12-2010 [place] ULCER STAGE REGIONAL II MEDICAL CE 7851 PALPITATION 04-19-2010 [place] S HEART & VASCULAR PH 3569 UNSPEC 04-14-2010 [facility] HEREDIT&IDI FAMILY OPATHIC PRACTICE CL PERIPHERAL NEUROPATHY 44726 DIAB W/O 01-24-2010 [facility] COMP TYPE I FAMILY [JUV] NOT PRACTICE CL STATED UNCNTRL 7801 HALLUCINATI 12-23-2009 [facility] ONS EMERGENCY PHYSICIANS 6827 CELLULITIS 11-02-2009 [facility] AND ABSCESS EMERGENCY OF FOOT PHYSICIANS EXCEPT TOES 56067 OSTEOARTHRO 11-02-2009 [facility] [place] SIS UNSPEC IMAGING PSC WHETHER GEN/LOC ANK&FOOT 9174 FOOT&TOE 11-02-2009 [facility] INSECT BITE EMERGENCY PHYSICIANS NONVENOMOUS W/O MENTION INF 9175 FOOT AND 11-02-2009 [place] TOE INSECT REGIONAL BITE MEDICAL NONVENOMOUS CENT INFECTED E0008 OTHER 11-02-2009 [place] EXTERNAL REGIONAL CAUSE MEDICAL STATUS CENT E8490 PLACE OF 11-02-2009 [facility] OCCURRENCE, EMERGENCY HOME PHYSICIANS E9064 BITE OF 11-02-2009 [facility] NONVENOMOUS EMERGENCY ARTHROPOD PHYSICIANS 3670 HYPERMETROP 10-21-2009 [facility] IA PTON, JERMAINE 83438 OTHER 10-05-2009 [facility] 63096 PAIN IN 09-07-2009 [place] JOINT PAIN PELVIC PHYSICIANS REGION AND PSC THIGH 41453 PAIN IN 09-07-2009 [place] JOINT, PAIN LOWER LEG PHYSICIANS PSC 7242 LUMBAGO 09-07-2009 [place] PAIN PHYSICIANS PSC 7410 SPINA 08-03-2009 BHAGRATH, BIFIDA WITH KSENIA S HYDROCEPHAL US 7804 DIZZINESS 07-30-2009 [place] AND PAIN GIDDINESS PHYSICIANS PSC 25815 POLYARTICUL 07-08-2009 [place] AR JUVENILE PAIN RA CHRONIC PHYSICIANS OR PSC UNSPECIFIED 7852 UNDIAGNOSED 07-01-2009 [place] CARDIAC [facility]ART [facility] VASCULAR PHYSICIANS, INC 78483 PAIN IN 11-09-2008 [facility], L HOME MULTIPLE MEDICAL SITES SUPPLIES INC 2689 UNSPECIFIED 10-02-2008 [place] VITAMIN D REGIONAL DEFICIENCY MEDICAL CENT 5852 CHRONIC 10-02-2008 [place] KIDNEY REGIONAL DISEASE MEDICAL STAGE II CENT (MILD) 50741 HYPERTROPHY 10-02-2008 [place] PROSTATE REGIONAL W/O UR OBST MEDICAL & OTH LUTS CENT 7910 PROTEINURIA 10-02-2008 [facility] 7231 CERVICALGIA 07-08-2008 [facility] PAIN PHYSICIANS PSC 62310 OSTEOARTHRO 2008 [facility] S UNSPEC ORTHOPAEDIC GEN/LOC S PLC PELV REGION&THIG H 3829 UNSPECIFIED 05-28-2008 [facility] 4659 ACUTE URIS 04-28-2008 [place] UNSPECIFIED [facility]OSP SITE 7213 LUMBOSACRAL 04-02-2008 [facility] SERVICES SPONDYLOSIS 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 7244 THORACIC/TY 04-02-2008 [facility] MBOSACRAL SERVICES NEURITIS/RA PSC DICULITIS UNSPEC 8472 LUMBAR 04-02-2008 [facility] SPRAIN AND SERVICES STRAIN PSC 6828 CELLULITIS 03-03-2008 [place] [facility]ESS [facility] OF OTHER HOSP SPECIFIED SITE 37985 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 37369 SPINAL 02-26-2008 [facility] STENOSIS OF SERVICES THORACIC PSC REGION 7241 PAIN IN 02-26-2008 [facility] THORACIC SERVICES SPINE PSC 91022 CLOS FX 02-26-2008 [facility] T7-T12 SERVICES LEVEL PSC W/UNSPEC SPINAL CORD INJURY 11322 SECONDARY 02-25-2008 [facility] HYPERPARATH NEPHROLOGY YROIDISM CONSULTANTS 9531 INJURY TO 02-11-2008 [facility] DORSAL SERVICES NERVE ROOT PSC 68650 OSTEOARTHRO 01-14-2008 [facility] S UNSPEC SERVICES GEN/LOC OTH PSC SPEC SITES 30492 DISPLCMT 01-14-2008 [facility] LUMBAR SERVICES INTERVERT PSC DISC W/O MYELOPATHY 56190 SPINAL STEN 01-14-2008 [facility] LUMB REG SERVICES W/O PSC [place] N [address]08 SCOLIOSIS , 01-14-2008 [facility] IDIOPATHIC SERVICES PSC 7246 DISORDERS 12-25-2007 [facility] OF SACRUM SERVICES PSC 7245 UNSPECIFIED 12-21-2007 [facility] BACKACHE IMAGING PSC 69009 ABDOMINAL 12-21-2007 [place] PAIN OTHER REGIONAL SPECIFIED MEDICAL SITE CENT 3970 DISEASES OF 11-18-2007 [facility], TRICUSPID ZE C VALVE 95494 PRIMARY LOC 11-13-2007 [place] REG[facility]AL OSTEOARTHRO MEDICAL SIS PELVIC CENT REGION&THIG H 07126 PRIMARY 11-13-2007 [place] LOCALIZED REGIONAL OSTEOARTHRO MEDICAL SIS LOWER CENT LEG 7176 LOOSE BODY 11-13-2007 [facility]ENT 16335 DISORDER OF 11-13-2007 [facility] BONE AND IMAGING PSC CARTILAGE UNSPECIFIED 2818 ANEMIA 09-26-2007 [facility] W/OTHER PLLC SPEC NUTRITIONAL DEFIC 4778 ALLERGIC 09-26-2007 [facility] DUE TO PLLC OTHER ALLERGEN 70679 UNSPECIFIED 09-26-2007 [facility] ABSCESS OF FINGER 52944 NOCTURIA 09-26-2007 [facility] MEDICAL CENT 24292 VOMITING 09-13-2007 [facility] PHYSICIAN INC 26009 OSTEOARTHRO 09-04-2007 [facility] S UNSPEC NEPHROLOGY WHETHER CONSULTANTS GEN/LOC UNSPEC SITE 64937 ELEVATED 09-04-2007 [facility] PROSTATE NEPHROLOGY SPECIFIC CONSULTANTS ANTIGEN 86913 UNSPECIFIED 06-24-2007 [facility] CONSTIPATI MEDICAL N CENT 34055 LOSS OF 06-24-2007 [place] [facility] CENT 49984 URINARY 06-24-2007 [facility] MED[facility] CENT V7644 SPECIAL 06-24-2007 [facility] MALIGNANT MEDICAL NEOPLASM OF CENT PROSTATE 4751 ALLERGIC 10-31-2006 [facility] CAUSE [...] 0 RE 15 FT 41 17 17 TX EN 0 PH CH ER AR AE MA L 25 CY S 0 MG LL C SO FT GE L 00 08 11 0 30 30 ME 15 GA Ac TA 90 -3 -2 0. D 34 IN ti TX 40 1- 5- 00 CA 30 EY ve N 52 20 20 0 RE 14 C 38 17 17 TX 50 0 PH CH 0 AR AE MG MA L CY S TA BL LL ET C SE 00 08 11 0 12 30 ME 15 GA Ac NN 90 -3 -2 00 D 34 IN ti A- 46 1- 5- .0 CA 30 EY ve LA 52 20 20 00 RE 16 X 26 17 17 TX 8. 1 PH CH 6 AR AE MG MA L CY S TA BL LL ET C 00 08 11 0 30 30 ME 15 GA Ac PI 90 -3 -2 0. D 31 IN ti RI 46 1- 0- 00 CA 53 EY ve N 28 20 20 0 RE 70 81 88 17 17 TX 9 PH CH MG AR AE MA L CH CY S EW AB LL LE C TA BL ET 00 08 11 0 30 30 ME 15 GA Ac TA 53 -3 -1 0. D 28 IN ti TX 63 1- 5- 00 CA 72 EY ve N 79 20 20 0 RE 37 D3 00 17 17 TX 1 PH CH 2, AR AE 00 MA L 0 CY S UN IT LL C SO FT GE L TA 00 08 11 0 30 30 ME 15 GA Ac B- 90 -3 -1 0. D 28 IN ti A- 40 1- 5- 00 CA 72 EY ve 53 20 20 0 RE 36 TE 08 17 17 TX 0 PH CH TA AR AE BL MA L ET CY S LL C FE 00 08 11 0 30 30 ME 15 GA Ac RR 53 -3 -1 0. D 28 IN ti OU 61 1- 5- 00 CA 72 EY ve S 00 20 20 0 RE 35 CLARK 90 17 17 TX LF 1 PH CH AT AR AE E MA L 32 CY S 5 MG LL C TA BL ET LO 00 08 11 0 30 30 ME 15 GA Ac RA 78 -3 -0 0. D 23 IN ti TA 15 1- 4- 00 CA 05 EY ve DI 07 20 20 0 RE 03 NE 70 17 17 TX 1 PH CH 10 AR AE MA L MG CY S TA LL BL C ET SE 00 08 10 0 12 30 ME 15 GA Ac NN 90 -3 -2 00 D 18 IN ti A- 46 1- 7- .0 CA 77 EY ve LA 52 20 20 00 RE 76 X 26 17 17 TX 8. 1 PH CH 6 AR AE MG MA L CY S TA BL LL ET C 00 08 10 0 30 30 ME 15 GA Ac TA 90 -3 -2 0. D 18 IN ti TX 40 1- 7- 00 CA 77 EY ve N 52 20 20 0 RE 74 C 38 17 17 TX 50 0 PH CH 0 AR AE MG MA L CY S TA BL LL ET C ST 00 08 10 0 30 30 ME 15 GA Ac OO 53 -3 -2 0. D 18 IN ti L 61 1- 7- 00 CA 77 EY ve SO 06 20 20 0 RE 75 FT 41 17 17 TX EN 0 PH CH ER AR AE MA L 25 CY S 0 MG LL C SO FT GE L 00 08 10 0 30 30 ME 15 GA Ac PI 90 -3 -2 0. D 16 IN ti RI 46 1- 3- 00 CA 98 EY ve N 28 20 20 0 RE 63 81 88 17 17 TX 9 PH CH MG AR AE MA L CH CY S EW AB LL LE C TA BL ET 00 08 10 0 30 30 ME 15 GA Ac TA 53 -3 -1 0. D 12 IN ti TX 63 1- 6- 00 CA 12 EY ve N 79 20 20 0 RE 14 D3 00 17 17 TX 1 PH CH 2, AR AE 00 MA L 0 CY S UN IT LL C SO FT GE L FE 00 08 10 0 30 30 ME 15 GA Ac RR 53 -3 -1 0. D 12 IN ti OU 61 1- 6- 00 CA 12 EY ve S 00 20 20 0 RE 10 CLARK 90 17 17 TX LF 1 PH CH AT AR AE E MA L 32 CY S 5 MG LL C TA BL ET TA 00 08 10 0 30 30 ME 15 GA Ac B- 90 -3 -1 0. D 12 IN ti A- 40 1- 6- CA 12 EY ve 53 20 20 0 RE 11 TE 08 17 17 TX 0 PH CH TA AR AE BL MA L ET CY S LL C LO 00 08 10 0 30 30 ME 15 GA Ac RA 78 -3 -0 0. D 07 IN ti TA 15 1- 6- 00 CA 11 EY ve DI 07 20 20 0 RE 54 NE 70 17 17 TX 1 PH CH 10 AR AE MA L MG CY S TA LL BL C ET ST 00 08 09 0 30 30 ME 14 GA Ac OO 53 -3 -2 0. D 87 IN ti L 61 1- 7- 00 CA 57 EY ve SO 06 20 20 0 RE 82 FT 41 17 17 TX EN 0 PH CH ER AR AE MA L 25 CY S 0 MG LL C SO FT GE L SE 00 08 09 0 12 30 ME 14 GA Ac NN 90 -3 -2 00 D 87 IN ti A- 46 1- 7- .0 CA 57 EY ve LA 52 20 20 00 RE 99 X 26 17 17 TX 8. 1 PH CH 6 AR AE MG MA L CY S TA BL LL ET C 00 08 09 0 30 30 ME 14 GA Ac PI 90 -3 -2 0. D 87 IN ti RI 46 1- 7- 00 CA 57 EY ve N 28 20 20 0 RE 76 81 88 17 17 TX 9 PH CH MG AR AE MA L CH CY S EW AB LL LE C TA BL ET 00 08 09 0 13 13 ME 14 GA Ac TA 90 -3 -2 0. D 87 IN ti TX 40 1- 7- 00 CA 57 EY ve N 52 20 20 0 RE 80 C 38 17 17 TX 50 0 PH CH 0 AR AE MG MA L CY S TA BL LL ET C TA 00 08 09 0 30 30 ME 14 GA Ac B- 90 -3 -1 0. D 87 IN ti A- 40 1- 8- 00 CA 57 EY ve 53 20 20 0 RE 93 TE 08 17 17 TX 0 PH CH TA AR AE BL MA L ET CY S LL C RO 00 08 09 0 15 30 ME 14 GA Ac BA 90 -3 -1 00 D 87 IN ti FE 40 1- 8- .0 CA 57 EY ve N- 05 20 20 00 RE 97 DM 31 17 17 TX 6 PH CH SY AR AE RU MA L P CY S LL C FE 00 08 09 0 30 30 ME 14 GA Ac RR 53 -3 -1 0. D 87 IN ti OU 61 1- 8- 00 CA 57 EY ve S 00 20 20 0 RE 84 CLARK 90 17 17 TX LF 1 PH CH AT AR AE E MA L 32 CY S 5 MG LL C TA BL ET 00 08 09 0 30 30 ME 14 GA Ac TA 53 -3 -1 0. D 97 IN ti TX 63 1- 8- 00 CA 42 EY ve N 79 20 20 0 RE 76 D3 00 17 17 TX 1 PH CH 2, AR AE 00 MA L 0 CY S UN IT LL C SO FT GE L EN 00 09 09 0 13 1 ME 14 GA Ac EM 53 -1 -1 30 D 97 IN ti A 67 8- 8- .0 CA 43 EY ve 41 20 20 00 RE 40 55 17 17 TX 1 PH CH AR AE MA L CY S LL C LO 00 08 09 0 30 30 ME 14 GA Ac RA 78 -3 -0 0. D 87 IN ti TA 15 1- 8- 00 CA 57 EY ve DI 07 20 20 0 RE 87 NE 70 17 17 TX 1 PH CH 10 AR AE MA L MG CY S TA LL BL C ET 00 08 08 0 30 30 ME 14 GA Ac TA 90 -2 -2 0. D 83 IN ti TX 40 5- 5- 00 CA 93 EY ve N 52 20 20 0 RE 36 C 38 17 17 TX 50 0 PH CH 0 AR AE MG MA L CY S TA BL LL ET C 00 06 08 0 30 30 ME 14 GA Ac PI 90 -2 -2 0. D 81 IN ti RI 46 0- 1- 00 CA 39 EY ve N 28 20 20 0 RE 76 81 88 17 17 TX 9 PH CH MG AR AE MA L CH CY S EW AB LL LE C TA BL ET 00 06 08 0 30 30 ME 14 GA Ac TA 53 -2 -1 0. D 78 IN ti TX 63 0- 8- 00 CA 56 EY ve N 79 20 20 0 RE 78 D3 00 17 17 TX 1 PH CH 2, AR AE 00 MA L 0 CY S UN IT LL C SO FT GE L BI 00 06 08 0 15 30 ME 14 GA Ac SC 90 -2 -1 0. D 44 IN ti OL 45 0- 8- 00 CA 02 EY ve AX 05 20 20 0 RE 06 81 17 17 TX 10 2 PH CH AR AE MG MA L CY S CLARK PP LL OS C IT OR Y FE 00 06 08 0 30 30 ME 14 GA Ac RR 53 -2 -1 0. D 77 IN ti OU 61 0- 7- 00 CA 70 EY ve S 00 20 20 0 RE 48 CLARK 90 17 17 TX LF 1 PH CH AT AR AE E MA L 32 CY S 5 MG LL C TA BL ET SE 00 06 08 0 12 30 ME 14 GA Ac NN 90 -2 -1 00 D 77 IN ti A- 46 0- 7- .0 CA 70 EY ve LA 52 20 20 00 RE 50 X 26 17 17 TX 8. 1 PH CH 6 AR AE MG MA L CY S TA BL LL ET C ST 00 06 08 0 30 30 ME 14 GA Ac OO 53 -2 -1 0. D 77 IN ti L 61 0- 7- 00 CA 70 EY ve SO 06 20 20 0 RE 49 FT 41 17 17 TX EN 0 PH CH ER AR AE MA L 25 CY S 0 MG LL C SO FT GE L TA 00 06 08 0 30 30 ME 14 GA Ac B- 90 -2 -1 0. D 76 IN ti A- 40 0- 4- 00 CA 87 EY ve 53 20 20 0 RE 37 TE 08 17 17 TX 0 PH CH TA AR AE BL MA L ET CY S LL C LO 00 06 08 0 30 30 ME 14 GA Ac RA 78 -2 -1 0. D 74 IN ti TA 15 0- 2- 00 CA 04 EY ve DI 07 20 20 0 RE 56 NE 70 17 17 TX 1 PH CH 10 AR AE MA L MG CY S TA LL BL C ET RO 00 06 08 0 15 30 ME 14 GA Ac BA 90 -2 -0 00 D 74 IN ti FE 40 0- 9- .0 CA 72 EY ve N- 05 20 20 00 RE 35 DM 31 17 17 TX 6 PH CH SY AR AE RU MA L P CY S LL C FE 00 06 07 0 30 30 ME 14 GA Ac RR 53 -2 -1 0. D 60 IN ti OU 61 0- 8- 00 CA 24 EY ve S 00 20 20 0 RE 56 CLARK 90 17 17 TX LF 1 PH CH AT AR AE E MA L 32 CY S 5 MG LL C TA BL ET SE 00 06 07 0 12 30 ME 14 GA Ac NN 90 -2 -1 00 D 60 IN ti A- 46 0- 8- .0 CA 24 EY ve LA 52 20 20 00 RE 60 X 26 17 17 TX 8. 1 PH CH 6 AR AE MG MA L CY S TA BL LL ET C 00 06 07 0 30 30 ME 14 GA Ac PI 90 -2 -1 0. D 60 IN ti RI 46 0- 8- 00 CA 24 EY ve N 28 20 20 0 RE 55 81 88 17 17 TX 9 PH CH MG AR AE MA L CH CY S EW AB LL LE C TA BL ET TA 00 06 07 0 30 30 ME 14 GA Ac B- 90 -2 -1 0. D 60 IN ti A- 40 0- 8- 00 CA 24 EY ve 53 20 20 0 RE 59 TE 08 17 17 TX 0 PH CH TA AR AE BL MA L ET CY S LL C LO 00 06 07 0 30 30 ME 14 GA Ac RA 78 -2 -1 0. D 60 IN ti TA 15 0- 8- 00 CA 24 EY ve DI 07 20 20 0 RE 58 NE 70 17 17 TX 1 PH CH 10 AR AE MA L MG CY S TA LL BL C ET ST 00 06 07 0 30 30 ME 14 GA Ac OO 53 -2 -1 0. D 60 IN ti L 61 0- 8- 00 CA 24 EY ve SO 06 20 20 0 RE 57 FT 41 17 17 TX EN 0 PH CH ER AR AE MA L 25 CY S 0 MG LL C SO FT GE L 00 06 06 0 30 30 ME 14 GA Ac TA 53 -2 -2 0. D 44 IN ti TX 63 0- 0- 00 CA 02 EY ve N 79 20 20 0 RE 04 D3 00 17 17 TX 1 PH CH 2, AR AE 00 MA L 0 CY S UN IT LL C SO FT GE L RO 00 06 06 0 15 30 ME 14 GA Ac BA 90 -2 -2 00 D 44 IN ti FE 40 0- 0- .0 CA 02 EY ve N- 05 20 20 00 RE 15 DM 31 17 17 TX 6 PH CH SY AR AE RU MA L P CY S LL C 00 06 06 0 30 30 ME 14 GA Ac PI 90 -2 -2 0. D 44 IN ti RI 46 0- 0- 00 CA 01 EY ve N 28 20 20 0 RE 76 81 88 17 17 TX 9 PH CH MG AR AE MA L CH CY S EW AB LL LE C TA BL ET FE 00 06 06 0 30 30 ME 14 GA Ac RR 53 -2 -2 0. D 44 IN ti OU 61 0- 0- 00 CA 01 EY ve S 00 20 20 0 RE 81 CLARK 90 17 17 TX LF 1 PH CH AT AR AE E MA L 32 CY S 5 MG LL C TA BL ET SE 00 06 06 0 12 30 ME 14 GA Ac NN 90 -2 -2 00 D 44 IN ti A- 46 0- 0- .0 CA 02 EY ve LA 52 20 20 00 RE 03 X 26 17 17 TX 8. 1 PH CH 6 AR AE MG MA L CY S TA BL LL ET C MA 00 06 06 0 60 30 ME 14 GA Ac PA 90 -2 -2 0. D 44 IN ti P 41 0- 0- 00 CA 02 EY ve 50 98 20 20 0 RE 05 0 86 17 17 TX MG 1 PH CH AR AE TA MA L BL CY S ET LL C ST 00 06 06 0 30 30 ME 14 GA Ac OO 53 -2 -2 0. D 44 IN ti L 61 0- 0- 00 CA 01 EY ve SO 06 20 20 0 RE 83 FT 41 17 17 TX EN 0 PH CH ER AR AE MA L 25 CY S 0 MG LL C SO FT GE L LO 00 06 06 0 30 30 ME 14 GA Ac RA 78 -2 -2 0. D 44 IN ti TA 15 0- 0- 00 CA 01 EY ve DI 07 20 20 0 RE 85 NE 70 17 17 TX 1 PH CH 10 AR AE MA L MG CY S TA LL BL C ET TA 00 06 06 0 30 30 ME 14 GA Ac B- 90 -2 -2 0. D 44 IN ti A- 40 0- 0- 00 CA 01 EY ve 53 20 20 0 RE 86 TE 08 17 17 TX 0 PH CH TA AR AE BL MA L ET CY S LL C BI 00 05 06 0 12 12 ME 14 GA Ac SC 90 -2 -1 0. D 26 IN ti OL 45 6- 2- 00 CA 89 EY ve AX 05 20 20 0 RE 53 81 17 17 TX 10 2 PH CH AR AE MG MA L CY S CLARK PP LL OS C IT OR Y LO 00 03 05 0 30 30 ME 14 GA Ac RA 78 -1 -1 0. D 21 IN ti TA 15 9- 9- 00 CA 63 EY ve DI 07 20 20 0 RE 53 NE 70 17 17 TX 1 PH CH 10 AR AE MA L MG CY S TA LL BL C ET SE 00 03 05 0 12 30 ME 14 GA Ac NN 90 -1 -1 00 D 19 IN ti A- 46 9- 6- .0 CA 54 EY ve LA 52 20 20 00 RE 69 X 26 17 17 TX 8. 1 PH CH 6 AR AE MG MA L CY S TA BL LL ET C 00 03 05 0 30 30 ME 14 GA Ac TA 90 -1 -1 0. D 19 IN ti TX 45 9- 5- 00 CA 90 EY ve N 04 20 20 0 RE 88 AN 26 17 17 TX D 0 PH CH TX AR AE NE MA L RA CY S LS LL TA C BL ET 00 03 05 0 30 30 ME 14 GA Ac PI 53 -1 -1 0. D 18 IN ti RI 61 9- 2- 00 CA 24 EY ve N 00 20 20 0 RE 73 EC 44 17 17 TX 1 PH CH 81 AR AE MA L MG CY S TA LL BL C ET ST 00 02 05 0 30 30 ME 14 GA Ac OO 53 -2 -1 0. D 18 IN ti L 61 3- 2- 00 CA 24 EY ve SO 06 20 20 0 RE 76 FT 41 17 17 TX EN 0 PH CH ER AR AE MA L 25 CY S 0 MG LL C SO FT GE L 00 03 05 0 30 30 ME 14 GA Ac TA 53 -1 -1 0. D 18 IN ti TX 63 9- 2- 00 CA 24 EY ve N 79 20 20 0 RE 82 D3 00 17 17 TX 1 PH CH 2, AR AE 00 MA L 0 CY S UN IT LL C SO FT GE L BI 00 05 05 0 15 15 ME 14 GA Ac SC 90 -1 -1 0. D 18 IN ti OL 45 0- 0- 00 CA 07 EY ve AX 05 20 20 0 RE 34 81 17 17 TX 10 2 PH CH AR AE MG MA L CY S CLARK PP LL OS C IT OR Y FE 00 03 05 0 30 30 ME 14 GA Ac RR 53 -1 -0 0. D 14 IN ti OU 61 9- 5- 00 CA 67 EY ve S 00 20 20 0 RE 52 CLARK 90 17 17 TX LF 1 PH CH AT AR AE E MA L 32 CY S 5 MG LL C TA BL ET RO 00 04 05 0 15 30 ME 14 GA Ac BA 90 -0 -0 00 D 10 IN ti FE 40 7- 5- .0 CA 68 EY ve N- 05 20 20 00 RE 31 DM 31 17 17 TX 6 PH CH SY AR AE RU MA L P CY S LL C LO 45 03 04 0 30 30 ME 14 GA Ac RA 80 -1 -2 0. D 06 IN ti TA 20 9- 0- 00 CA 95 EY ve DI 65 20 20 0 RE 55 NE 08 17 17 TX 7 PH CH 10 AR AE MA L MG CY S TA LL BL C ET SE 00 03 04 0 12 30 ME 14 GA Ac NN 90 -1 -1 00 D 05 IN ti A- 46 9- 7- .0 CA 07 EY ve LA 52 20 20 00 RE 52 X 26 17 17 TX 8. 1 PH CH 6 AR AE MG MA L CY S TA BL LL ET C ST 00 02 04 0 30 30 ME 14 GA Ac OO 53 -2 -1 0. D 03 IN ti L 61 3- 3- 00 CA 60 EY ve SO 06 20 20 0 RE 86 FT 41 17 17 TX EN 0 PH CH ER AR AE MA L 25 CY S 0 MG LL C SO FT GE L 00 03 04 0 30 30 ME 14 GA Ac PI 53 -1 -1 0. D 03 IN ti RI 61 9- 3- 00 CA 60 EY ve N 00 20 20 0 RE 85 EC 44 17 17 TX 1 PH CH 81 AR AE MA L MG CY S TA LL BL C ET 00 03 04 0 30 30 ME 14 GA Ac TA 53 -1 -1 0. D 03 IN ti TX 63 9- 3- 00 CA 60 EY ve N 79 20 20 0 RE 88 D3 00 17 17 TX 1 PH CH 2, AR AE 00 MA L 0 CY S UN IT LL C SO FT GE L 00 03 04 0 30 30 ME 14 GA Ac TA 90 -1 -0 0. D 00 IN ti TX 45 9- 7- 00 CA 93 EY ve N 04 20 20 0 RE 00 AN 26 17 17 TX D 0 PH CH TX AR AE NE MA L RA CY S LS LL TA C BL ET FE 00 03 04 0 30 30 ME 14 GA Ac RR 53 -1 -0 0. D 00 IN ti OU 61 9- 7- 00 CA 92 EY ve S 00 20 20 0 RE 98 CLARK 90 17 17 TX LF 1 PH CH AT AR AE E MA L 32 CY S 5 MG LL C TA BL ET RO 00 04 04 0 15 30 ME 14 GA Ac BA 90 -0 -0 00 D 02 IN ti FE 40 7- 7- .0 CA 15 EY ve N- 05 20 20 00 RE 12 DM 31 17 17 TX 6 PH CH SY AR AE RU MA L P CY S LL C SP 00 02 03 0 30 15 ME 13 GA Ac IR 60 -0 -3 0. D 96 IN ti ON 35 2- 0- 00 CA 66 EY ve OL 76 20 20 0 RE 65 AC 32 17 17 TX TO 1 PH CH NE AR AE MA L 25 CY S MG LL C TA BL ET LO 00 03 03 0 30 30 ME 13 GA Ac RA 78 -1 -2 0. D 92 IN ti TA 15 9- 2- 00 CA 57 EY ve DI 07 20 20 0 RE 96 NE 70 17 17 TX 1 PH CH 10 AR AE MA L MG CY S TA LL BL C ET SE 00 03 03 0 12 30 ME 13 GA Ac NN 90 -1 -2 00 D 92 IN ti A- 46 9- 0- .0 CA 14 EY ve LA 52 20 20 00 RE 20 X 26 17 17 TX 8. 1 PH CH 6 AR AE MG MA L CY S TA BL LL ET C ST 00 02 03 0 30 30 ME 13 GA Ac OO 53 -2 -1 0. D 89 IN ti L 61 3- 5- 00 CA 95 EY ve SO 06 20 20 0 RE 95 FT 41 17 17 TX EN 0 PH CH ER AR AE MA L 25 CY S 0 MG LL C SO FT GE L 00 07 03 0 30 30 ME 13 GA Ac TA 53 -2 -1 0. D 89 IN ti TX 63 5- 5- 00 CA 20 EY ve N 79 20 20 0 RE 80 D3 00 16 17 TX 1 PH CH 2, AR AE 00 MA L 0 CY S UN IT LL C SO FT GE L 00 09 03 0 30 30 ME 13 GA Ac PI 53 -1 -1 0. D 89 IN ti RI 61 9- 5- 00 CA 20 EY ve N 00 20 20 0 RE 76 EC 44 16 17 TX 1 PH CH 81 AR AE MA L MG CY S TA LL BL C ET FE 00 09 03 0 30 30 ME 13 GA Ac RR 53 -1 -1 0. D 86 IN ti OU 61 9- 0- 00 CA 96 EY ve S 00 20 20 0 RE 49 CLARK 90 16 17 TX LF 1 PH CH AT AR AE E MA L 32 CY S 5 MG LL C TA BL ET 00 06 03 0 30 30 ME 13 GA Ac TA 90 -1 -1 0. D 86 IN ti TX 45 0- 0- 00 CA 96 EY ve N 04 20 20 0 RE 51 AN 26 16 17 TX D 0 PH CH TX AR AE NE MA L RA CY S LS LL TA C BL ET LO 00 09 02 0 30 30 ME 13 GA Ac RA 78 -0 -2 0. D 77 IN ti TA 15 1- 1- 00 CA 64 EY ve DI 07 20 20 0 RE 76 NE 70 16 17 TX 1 PH CH 10 AR AE MA L MG CY S TA LL BL C ET 00 09 02 0 30 30 ME 13 GA Ac PI 53 -1 -1 0. D 74 IN ti RI 61 9- 4- 00 CA 04 EY ve N 00 20 20 0 RE 51 EC 44 16 17 TX 1 PH CH 81 AR AE MA L MG CY S TA LL BL C ET 00 07 02 0 30 30 ME 13 GA Ac TA 53 -2 -1 0. D 74 IN ti TX 63 5- 4- 00 CA 04 EY ve N 79 20 20 0 RE 52 D3 00 16 17 TX 1 PH CH 2, AR AE 00 MA L 0 CY S UN IT LL C SO FT GE L ST 00 02 02 0 30 30 ME 13 GA Ac OO 53 -2 -1 0. D 73 IN ti L 61 3- 3- 00 CA 36 EY ve SO 06 20 20 0 RE 84 FT 41 16 17 TX EN 0 PH CH ER AR AE MA L 25 CY S 0 MG LL C SO FT GE L 00 06 02 0 30 30 ME 13 GA Ac TA 90 -1 -1 0. D 72 IN ti TX 45 0- 0- 00 CA 74 EY ve N 04 20 20 0 RE 29 AN 26 16 17 TX D 0 PH CH TX AR AE NE MA L RA CY S LS LL TA C BL ET FE 00 09 02 0 30 30 ME 13 GA Ac RR 90 -1 -0 0. D 72 IN ti OU 47 9- 9- 00 CA 08 EY ve S 59 20 20 0 RE 92 CLARK 18 16 17 TX LF 0 PH CH AT AR AE E MA L 32 CY S 5 MG LL C TA BL ET SE 00 09 02 0 12 30 ME 13 GA Ac NN 90 -1 -0 00 D 71 IN ti A 46 9- 7- .0 CA 32 EY ve 8. 43 20 20 00 RE 82 6 48 16 17 TX MG 0 PH CH AR AE TA MA L BL CY S ET LL C BI 00 09 02 0 15 15 ME 13 GA Ac SC 90 -1 -0 0. D 70 IN ti OL 45 9- 6- 00 CA 96 EY ve AX 05 20 20 0 RE 91 81 16 17 TX 10 2 PH CH AR AE MG MA L CY S CLARK PP LL OS C IT OR Y LO 00 09 01 0 30 30 ME 13 GA Ac RA 78 -0 -2 0. D 63 IN ti TA 15 1- 3- 00 CA 50 EY ve DI 07 20 20 0 RE 87 NE 70 16 17 TX 1 PH CH 10 AR AE MA L MG CY S TA LL BL C ET 00 09 01 0 30 30 ME 13 GA Ac PI 53 -1 -1 0. D 59 IN ti RI 61 9- 6- 00 CA 87 EY ve N 00 20 20 0 RE 11 EC 44 16 17 TX 1 PH CH 81 AR AE MA L MG CY S TA LL BL C ET 00 07 01 0 30 30 ME 13 GA Ac TA 53 -2 -1 0. D 59 IN ti TX 63 5- 6- 00 CA 87 EY ve N 79 20 20 0 RE 12 D3 00 16 17 TX 1 PH CH 2, AR AE 00 MA L 0 CY S UN IT LL C SO FT GE L ST 00 02 01 0 30 30 ME 13 GA Ac OO 53 -2 -1 0. D 59 IN ti L 61 3- 4- 00 CA 46 EY ve SO 06 20 20 0 RE 94 FT 41 16 17 TX EN 0 PH CH ER AR AE MA L 25 CY S 0 MG LL C SO FT GE L 00 06 01 0 30 30 ME 13 GA Ac TA 90 -1 -1 0. D 59 IN ti TX 45 0- 3- 00 CA 03 EY ve N 04 20 20 0 RE 67 AN 26 16 17 TX D 0 PH CH TX AR AE NE MA L RA CY S LS LL TA C BL ET SE 00 09 01 0 12 30 ME 13 GA Ac NN 90 -1 -1 00 D 58 IN ti A- 46 9- 2- .0 CA 61 EY ve LA 52 20 20 00 RE 97 X 26 16 17 TX 8. 1 PH CH 6 AR AE MG MA L CY S TA BL LL ET C FE 00 09 01 0 30 30 ME 13 GA Ac RR 53 -1 -1 0. D 57 IN ti OU 61 9- 1- 00 CA 54 EY ve S 00 20 20 0 RE 83 CLARK 90 16 17 TX LF 1 PH CH AT AR AE E MA L 32 CY S 5 MG LL C TA BL ET 00 12 01 0 10 1 ME 13 GA Ac TA 90 -1 -1 .0 D 58 IN ti TX 40 5- 0- 00 CA 30 EY ve N 52 20 20 RE 23 C 38 16 17 TX 50 0 PH CH 0 AR AE MG MA L CY S TA BL LL ET C ZI 00 12 12 0 10 1 ME 13 GA Ac NC 90 -1 -3 .0 D 53 IN ti 43 7- 0- 00 CA 28 EY ve GL 19 20 20 RE 54 UC 16 16 16 TX ON 0 PH CH AT AR AE E MA L 50 CY S MG LL C TA BL ET LO 00 09 12 0 30 30 ME 13 GA Ac RA 78 -0 -2 0. D 50 IN ti TA 15 1- 6- 00 CA 21 EY ve DI 07 20 20 0 RE 30 NE 70 16 16 TX 1 PH CH 10 AR AE MA L MG CY S TA LL BL C ET 00 07 12 0 30 30 ME 13 GA Ac TA 53 -2 -1 0. D 45 IN ti TX 63 5- 7- 00 CA 89 EY ve N 79 20 20 0 RE 62 D3 00 16 16 TX 1 PH CH 2, AR AE 00 MA L 0 CY S UN IT LL C SO FT GE L ZI 00 12 12 0 14 14 ME 13 GA Ac NC 90 -1 -1 0. D 46 IN ti 43 7- 7- 00 CA 89 EY ve GL 19 20 20 0 RE 55 UC 16 16 16 TX ON 0 PH CH AT AR AE E MA L 50 CY S MG LL C TA BL ET 00 09 12 0 30 30 ME 13 GA Ac PI 53 -1 -1 0. D 45 IN ti RI 61 9- 7- 00 CA 89 EY ve N 00 20 20 0 RE 61 EC 44 16 16 TX 1 PH CH 81 AR AE MA L MG CY S TA LL BL C ET ST 00 02 12 0 30 30 ME 13 GA Ac OO 53 -2 -1 0. D 45 IN ti L 61 3- 6- 00 CA 28 EY ve SO 06 20 20 0 RE 42 FT 41 16 16 TX EN 0 PH CH ER AR AE MA L 25 CY S 0 MG LL C SO FT GE L 00 12 12 0 30 30 ME 13 GA Ac TA 90 -1 -1 0. D 45 IN ti TX 40 5- 5- 00 CA 69 EY ve N 52 20 20 0 RE 93 C 38 16 16 TX 50 0 PH CH 0 AR AE MG MA L CY S TA BL LL ET C SE 00 09 12 0 12 30 ME 13 GA Ac NN 90 -1 -1 00 D 46 IN ti A- 46 9- 5- .0 CA 00 EY ve LA 52 20 20 00 RE 68 X 26 16 16 TX 8. 1 PH CH 6 AR AE MG MA L CY S TA BL LL ET C 00 06 12 0 30 30 ME 13 GA Ac TA 90 -1 -1 0. D 44 IN ti TX 45 0- 4- 00 CA 20 EY ve N 04 20 20 0 RE 08 AN 26 16 16 TX D 0 PH CH TX AR AE NE MA L RA CY S LS LL TA C BL ET FE 00 09 12 0 30 30 ME 13 GA Ac RR 53 -1 -1 0. D 44 IN ti OU 61 9- 4- 00 CA 97 EY ve S 00 20 20 0 RE 74 CLARK 90 16 16 TX LF 1 PH CH AT AR AE E MA L 32 CY S 5 MG LL C TA BL ET LO 00 09 11 0 30 30 ME 13 GA Ac RA 78 -0 -2 0. D 35 IN ti TA 15 1- 8- 00 CA 75 EY ve DI 07 20 20 0 RE 27 NE 70 16 16 TX 1 PH CH 10 AR AE MA L MG CY S TA LL BL C ET BA 00 11 11 0 28 7 ME 13 GA Ac CI 16 -1 -2 3. D 36 IN ti TR 80 7- 6- 50 CA 23 EY ve AC 02 20 20 0 RE 22 IN 13 16 16 TX -P 1 PH CH OL AR AE YM MA L YX CY S IN LL OI C NT ME NT SE 00 09 11 0 12 30 ME 13 GA Ac NN 90 -1 -2 00 D 32 IN ti A- 46 9- 1- .0 CA 02 EY ve LA 52 20 20 00 RE 30 X 26 16 16 TX 8. 1 PH CH 6 AR AE MG MA L CY S TA BL LL ET C 00 09 11 0 30 30 ME 13 GA Ac PI 53 -1 -1 0. D 30 IN ti RI 61 9- 8- 00 CA 83 EY ve N 00 20 20 0 RE 45 EC 44 16 16 TX 1 PH CH 81 AR AE MA L MG CY S TA LL BL C ET FE 00 09 11 0 30 30 ME 13 GA Ac RR 53 -1 -1 0. D 30 IN ti OU 61 9- 8- 00 CA 83 EY ve S 00 20 20 0 RE 46 CLARK 90 16 16 TX LF 1 PH CH AT AR AE E MA L 32 CY S 5 MG LL C TA BL ET 00 07 11 0 30 30 ME 13 GA Ac TA 53 -2 -1 0. D 30 IN ti TX 63 5- 8- 00 CA 83 EY ve N 79 20 20 0 RE 49 D3 00 16 16 TX 1 PH CH 2, AR AE 00 MA L 0 CY S UN IT LL C SO FT GE L ST 00 02 11 0 30 30 ME 13 GA Ac OO 53 -2 -1 0. D 29 IN ti L 61 3- 7- 00 CA 93 EY ve SO 06 20 20 0 RE 73 FT 41 16 16 TX EN 0 PH CH ER AR AE MA L 25 CY S 0 MG LL C SO FT GE L BA 00 11 11 0 28 14 ME 13 GA Ac CI 16 -1 -1 3. D 31 IN ti TR 80 7- 7- 50 CA 32 EY ve AC 02 20 20 0 RE 58 IN 13 16 16 TX -P 1 PH CH OL AR AE YM MA L YX CY S IN LL OI C NT ME NT 00 06 11 0 30 30 ME 13 GA Ac TA 90 -1 -1 0. D 27 IN ti TX 45 0- 4- 00 CA 96 EY ve N 04 20 20 0 RE 19 AN 26 16 16 TX D 0 PH CH TX AR AE NE MA L RA CY S LS LL TA C BL ET LO 00 09 10 0 30 30 ME 13 GA Ac RA 78 -0 -2 0. D 19 IN ti TA 15 1- 8- 00 CA 67 EY ve DI 07 20 20 0 RE 75 NE 70 16 16 TX 1 PH CH 10 AR AE MA L MG CY S TA LL BL C ET SE 00 09 10 0 12 30 ME 13 GA Ac NN 90 -1 -2 00 D 16 IN ti A- 46 9- 2- .0 CA 73 EY ve LA 52 20 20 00 RE 99 X 26 16 16 TX 8. 1 PH CH 6 AR AE MG MA L CY S TA BL LL ET C 00 07 10 0 30 30 ME 13 GA Ac TA 53 -2 -2 0. D 16 IN ti TX 63 5- 1- 00 CA 09 EY ve N 79 20 20 0 RE 46 D3 00 16 16 TX 1 PH CH 2, AR AE 00 MA L 0 CY S UN IT LL C SO FT GE L 00 09 10 0 30 30 ME 13 GA Ac PI 53 -1 -2 0. D 15 IN ti RI 61 9- 0- 00 CA 55 EY ve N 00 20 20 0 RE 55 EC 44 16 16 TX 1 PH CH 81 AR AE MA L MG CY S TA LL BL C ET FE 00 09 10 0 30 30 ME 13 GA Ac RR 53 -1 -2 0. D 15 IN ti OU 61 9- 0- 00 CA 55 EY ve S 00 20 20 0 RE 56 CLARK 90 16 16 TX LF 1 PH CH AT AR AE E MA L 32 CY S 5 MG LL C TA BL ET ST 00 02 10 0 30 30 ME 13 GA Ac OO 53 -2 -1 0. D 14 IN ti L 61 3- 9- 00 CA 82 EY ve SO 06 20 20 0 RE 28 FT 41 16 16 TX EN 0 PH CH ER AR AE MA L 25 CY S 0 MG LL C SO FT GE L 00 11 10 0 30 30 ME 13 GA Ac TA 90 -0 -1 0. D 13 IN ti TX 45 5- 5- 00 CA 15 EY ve N 04 20 20 0 RE 57 AN 26 15 16 TX D 0 PH CH TX AR AE NE MA L RA CY S LS LL TA C BL ET LO 00 09 09 0 30 30 ME 13 GA Ac RA 78 -0 -2 0. D 03 IN ti TA 15 1- 9- 00 CA 49 EY ve DI 07 20 20 0 RE 14 NE 70 16 16 TX 1 PH CH 10 AR AE MA L MG CY S TA LL BL C ET SE 00 09 09 0 12 30 ME 13 GA Ac NN 90 -1 -2 00 D 00 IN ti A- 46 9- 3- .0 CA 42 EY ve LA 52 20 20 00 RE 47 X 26 16 16 TX 8. 1 PH CH 6 AR AE MG MA L CY S TA BL LL ET C 00 09 09 0 30 30 ME 13 GA Ac PI 53 -1 -2 0. D 00 IN ti RI 61 9- 2- 00 CA 79 EY ve N 00 20 20 0 RE 87 EC 44 16 16 TX 1 PH CH 81 AR AE MA L MG CY S TA LL BL C ET FE 00 09 09 0 30 30 ME 13 GA Ac RR 53 -1 -2 0. D 00 IN ti OU 61 9- 2- 00 CA 79 EY ve S 00 20 20 0 RE 89 CLARK 90 16 16 TX LF 1 PH CH AT AR AE E MA L 32 CY S 5 MG LL C TA BL ET 00 07 09 0 30 30 ME 12 GA Ac TA 53 -2 -2 0. D 99 IN ti TX 63 5- 1- 00 CA 05 EY ve N 79 20 20 0 RE 58 D3 00 16 16 TX 1 PH CH 2, AR AE 00 MA L 0 CY S UN IT LL C SO FT GE L ST 00 02 09 0 30 30 ME 12 GA Ac OO 53 -2 -1 0. D 97 IN ti L 61 3- 9- 00 CA 85 EY ve SO 06 20 20 0 RE 93 FT 41 16 16 TX EN 0 PH CH ER AR AE MA L 25 CY S 0 MG LL C SO FT GE L 00 11 09 0 30 30 ME 12 GA Ac TA 90 -0 -1 0. D 96 IN ti TX 45 5- 6- 00 CA 80 EY ve N 04 20 20 0 RE 50 AN 26 15 16 TX D 0 PH CH TX AR AE NE MA L RA CY S LS LL TA C BL ET LO 00 09 09 0 30 30 ME 12 GA Ac RA 78 -0 -0 0. D 90 IN ti TA 15 1- 1- 00 CA 04 EY ve DI 07 20 20 0 RE 71 NE 70 16 16 TX 1 PH CH 10 AR AE MA L MG CY S TA LL BL C ET SE 00 10 08 0 12 30 ME 12 GA Ac NN 90 -2 -2 00 D 84 IN ti A- 46 9- 5- .0 CA 88 EY ve LA 52 20 20 00 RE 51 X 26 15 16 TX 8. 1 PH CH 6 AR AE MG MA L CY S TA BL LL ET C 00 07 08 0 30 30 ME 12 GA Ac TA 53 -2 -2 0. D 82 IN ti TX 63 5- 2- 00 CA 65 EY ve N 79 20 20 0 RE 09 D3 00 16 16 TX 1 PH CH 2, AR AE 00 MA L 0 CY S UN IT LL C SO FT GE L ST 00 02 08 0 30 30 ME 12 GA Ac OO 53 -2 -2 0. D 83 IN ti L 61 3- 2- 00 CA 20 EY ve SO 06 20 20 0 RE 28 FT 41 16 16 TX EN 0 PH CH ER AR AE MA L 25 CY S 0 MG LL C SO FT GE L FE 00 10 08 0 30 30 ME 12 GA Ac RR 53 -1 -2 0. D 81 IN ti OU 61 0- 0- 00 CA 18 EY ve S 00 20 20 0 RE 40 CLARK 90 15 16 TX LF 1 PH CH AT AR AE E MA L 32 CY S 5 MG LL C TA BL ET 00 11 08 0 30 30 ME 12 GA Ac TA 90 -0 -1 0. D 79 IN ti TX 45 5- 7- 00 CA 28 EY ve N 04 20 20 0 RE 11 AN 26 15 16 TX D 0 PH CH TX AR AE NE MA L RA CY S LS LL TA C BL ET 00 10 08 0 30 30 ME 12 GA Ac PI 60 -0 -1 0. D 77 IN ti RI 30 9- 5- 00 CA 97 EY ve N 02 20 20 0 RE 73 EC 63 15 16 TX 2 PH CH 81 AR AE MA L MG CY S TA LL BL C ET MA 00 10 08 0 11 14 ME 12 GA Ac PA 90 -1 -0 20 D 74 IN ti P 41 0- 5- .0 CA 68 EY ve 50 98 20 20 00 RE 78 0 86 15 16 TX MG 1 PH CH AR AE TA MA L BL CY S ET LL C 00 07 07 0 30 30 ME 12 GA Ac TA 90 -2 -2 0. D 70 IN ti TX 40 8- 8- 00 CA 32 EY ve N 52 20 20 0 RE 12 C 38 16 16 TX 50 0 PH CH 0 AR AE MG MA L CY S TA BL LL ET C SE 00 10 07 0 12 30 ME 12 GA Ac NN 90 -2 -2 00 D 68 IN ti A- 46 9- 6- .0 CA 52 EY ve LA 52 20 20 00 RE 91 X 26 15 16 TX 8. 1 PH CH 6 AR AE MG MA L CY S TA BL LL ET C 00 07 07 0 30 30 ME 12 GA Ac TA 53 -2 -2 0. D 69 IN ti TX 63 5- 5- 00 CA 13 EY ve N 79 20 20 0 RE 18 D3 00 16 16 TX 1 PH CH 2, AR AE 00 MA L 0 CY S UN IT LL C SO FT GE L FE 00 10 07 0 30 30 ME 12 GA Ac RO 90 -1 -2 0. D 67 IN ti CLARK 47 0- 2- 00 CA 26 EY ve L 59 20 20 0 RE 65 32 08 15 16 TX 5 2 PH CH MG AR AE MA L TA CY S BL ET LL C 00 11 07 0 30 30 ME 12 GA Ac TA 90 -0 -1 0. D 65 IN ti TX 45 5- 8- 00 CA 97 EY ve N 04 20 20 0 RE 60 AN 26 15 16 TX D 0 PH CH TX AR AE NE MA L RA CY S LS LL TA C BL ET BI 00 03 07 0 15 15 ME 12 GA Ac SC 90 -1 -1 0. D 66 IN ti OL 45 0- 8- 00 CA 34 EY ve AX 05 20 20 0 RE 86 86 16 16 TX 10 0 PH CH AR AE MG MA L CY S CLARK PP LL OS C IT OR Y 00 10 07 0 30 30 ME 12 GA Ac PI 60 -0 -1 0. D 65 IN ti RI 30 9- 6- 00 CA 73 EY ve N 02 20 20 0 RE 27 EC 63 15 16 TX 2 PH CH 81 AR AE MA L MG CY S TA LL BL C ET ST 00 02 07 0 30 30 ME 12 GA Ac OO 53 -2 -1 0. D 63 IN ti L 61 3- 1- 00 CA 34 EY ve SO 06 20 20 0 RE 73 FT 41 16 16 TX EN 0 PH CH ER AR AE MA L 25 CY S 0 MG LL C SO FT GE L SE 00 10 06 0 12 30 ME 12 GA Ac NN 90 -2 -2 00 D 58 IN ti A- 46 9- 7- .0 CA 07 EY ve LA 52 20 20 00 RE 66 X 26 15 16 TX 8. 1 PH CH 6 AR AE MG MA L CY S TA BL LL ET C FE 00 10 06 0 30 30 ME 12 GA Ac RO 90 -1 -2 0. D 56 IN ti CLARK 47 0- 2- 00 CA 63 EY ve L 59 20 20 0 RE 47 32 08 15 16 TX 5 2 PH CH MG AR AE MA L TA CY S BL ET LL C 00 11 06 0 30 30 ME 12 GA Ac TA 90 -0 -1 0. D 55 IN ti TX 45 5- 8- 00 CA 21 EY ve N 04 20 20 0 RE 00 AN 26 15 16 TX D 0 PH CH TX AR AE NE MA L RA CY S LS LL TA C BL ET 00 10 06 0 30 30 ME 12 GA Ac PI 60 -0 -1 0. D 54 IN ti RI 30 9- 7- 00 CA 90 EY ve N 02 20 20 0 RE 56 EC 63 15 16 TX 2 PH CH 81 AR AE MA L MG CY S TA LL BL C ET BI 00 03 06 0 15 15 ME 12 GA Ac SC 90 -1 -1 0. D 55 IN ti OL 45 0- 7- 00 CA 42 EY ve AX 05 20 20 0 RE 04 86 16 16 TX 10 0 PH CH AR AE MG MA L CY S CLARK PP LL OS C IT OR Y ST 00 02 06 0 30 30 ME 12 GA Ac OO 53 -2 -1 0. D 53 IN ti L 61 3- 3- 00 CA 62 EY ve SO 06 20 20 0 RE 57 FT 41 16 16 TX EN 0 PH CH ER AR AE MA L 25 CY S 0 MG LL C SO FT GE L SE 00 10 05 0 12 30 ME 12 GA Ac NN 90 -2 -2 00 D 48 IN ti A 45 9- 8- .0 CA 35 EY ve 8. 16 20 20 00 RE 71 6 56 15 16 TX MG 1 PH CH AR AE TA MA L BL CY S ET LL C FE 00 10 05 0 30 30 ME 12 GA Ac RO 90 -1 -2 0. D 45 IN ti CLARK 47 0- 3- 00 CA 78 EY ve L 59 20 20 0 RE 37 32 08 15 16 TX 5 2 PH CH MG AR AE MA L TA CY S BL ET LL C BI 00 03 05 0 15 15 ME 12 GA Ac SC 90 -1 -2 0. D 46 IN ti OL 45 0- 1- 00 CA 12 EY ve AX 05 20 20 0 RE 33 86 16 16 TX 10 0 PH CH AR AE MG MA L CY S CLARK PP LL OS C IT OR Y 00 11 05 0 30 30 ME 12 GA Ac TA 90 -0 -2 0. D 45 IN ti TX 45 5- 0- 00 CA 09 EY ve N 04 20 20 0 RE 35 AN 26 15 16 TX D 0 PH CH TX AR AE NE MA L RA CY S LS LL TA C BL ET 00 10 05 0 30 30 ME 12 GA Ac PI 60 -0 -1 0. D 44 IN ti RI 30 9- 8- 00 CA 30 EY ve N 02 20 20 0 RE 82 EC 63 15 16 TX 2 PH CH 81 AR AE MA L MG CY S TA LL BL C ET TR 45 05 05 0 85 15 ME 12 GA Ac OL 80 -1 -1 0. D 44 IN ti AM 20 7- 7- 00 CA 21 EY ve IN 35 20 20 0 RE 63 E 65 16 16 TX SA 3 PH CH LI AR AE CY MA L LA CY S TE LL 10 C % CR EA M ST 00 02 05 0 30 30 ME 12 GA Ac OO 53 -2 -1 0. D 42 IN ti L 61 3- 3- 00 CA 78 EY ve SO 06 20 20 0 RE 12 FT 41 16 16 TX EN 0 PH CH ER AR AE MA L 25 CY S 0 MG LL C SO FT GE L SE 00 10 04 0 12 30 ME 12 GA Ac NN 90 -2 -2 00 D 38 IN ti A 45 9- 9- .0 CA 00 EY ve 8. 16 20 20 00 RE 41 6 56 15 16 TX MG 1 PH CH AR AE TA MA L BL CY S ET LL C FE 00 10 04 0 30 30 ME 12 GA Ac RO 90 -1 -2 0. D 36 IN ti CLARK 47 0- 5- 00 CA 33 EY ve L 59 20 20 0 RE 19 32 08 15 16 TX 5 2 PH CH MG AR AE MA L TA CY S BL ET LL C 00 11 04 0 30 30 ME 12 GA Ac TA 90 -0 -2 0. D 34 IN ti TX 45 5- 1- 00 CA 77 EY ve N 04 20 20 0 RE 79 AN 26 15 16 TX D 0 PH CH TX AR AE NE MA L RA CY S LS LL TA C BL ET 00 10 04 0 30 30 ME 12 GA Ac PI 60 -0 -1 0. D 33 IN ti RI 30 9- 8- 00 CA 77 EY ve N 02 20 20 0 RE 74 EC 63 15 16 TX 2 PH CH 81 AR AE MA L MG CY S TA LL BL C ET ST 00 02 04 0 30 30 ME 12 GA Ac OO 53 -2 -1 0. D 33 IN ti L 61 3- 5- 00 CA 32 EY ve SO 06 20 20 0 RE 30 FT 41 16 16 TX EN 0 PH CH ER AR AE MA L 25 CY S 0 MG LL C SO FT GE L SE 00 10 03 0 12 30 ME 12 GA Ac NN 90 -2 -3 00 D 27 IN ti A 45 9- 0- .0 CA 50 EY ve 8. 16 20 20 00 RE 78 6 56 15 16 TX MG 1 PH CH AR AE TA MA L BL CY S ET LL C FE 00 10 03 0 30 30 ME 12 GA Ac RO 90 -1 -2 0. D 27 IN ti CLARK 47 0- 9- 00 CA 31 EY ve L 59 20 20 0 RE 11 32 08 15 16 TX 5 2 PH CH MG AR AE MA L TA CY S BL ET LL C 00 11 03 0 30 30 ME 12 GA Ac TA 90 -0 -2 0. D 26 IN ti TX 45 5- 4- 00 CA 13 EY ve N 04 20 20 0 RE 04 AN 26 15 16 TX D 0 PH CH TX AR AE NE MA L RA CY S LS LL TA C BL ET ST 00 02 03 0 30 30 ME 12 GA Ac OO 53 -2 -2 0. D 24 IN ti L 61 3- 2- 00 CA 91 EY ve SO 06 20 20 0 RE 08 FT 41 16 16 TX EN 0 PH CH ER AR AE MA L 25 CY S 0 MG LL C SO FT GE L 00 10 03 0 30 30 ME 12 GA Ac PI 60 -0 -2 0. D 25 IN ti RI 30 9- 1- 00 CA 14 EY ve N 02 20 20 0 RE 48 EC 63 15 16 TX 2 PH CH 81 AR AE MA L MG CY S TA LL BL C ET BI 00 03 03 0 15 15 ME 12 GA Ac SC 90 -1 -1 0. D 21 IN ti OL 45 0- 0- 00 CA 54 EY ve AX 05 20 20 0 RE 70 86 16 16 TX 10 0 PH CH AR AE MG MA L CY S CLARK PP LL OS C IT OR Y SE 00 10 02 0 12 30 ME 12 GA Ac NN 90 -2 -2 00 D 17 IN ti A 45 9- 9- .0 CA 54 EY ve 8. 16 20 20 00 RE 30 6 56 15 16 TX MG 1 PH CH AR AE TA MA L BL CY S ET LL C FE 00 10 02 0 30 30 ME 12 GA Ac RO 90 -1 -2 0. D 17 IN ti CLARK 47 0- 9- 00 CA 54 EY ve L 59 20 20 0 RE 28 32 08 15 16 TX 5 2 PH CH MG AR AE MA L TA CY S BL ET LL C 00 11 02 0 30 30 ME 12 GA Ac TA 90 -0 -2 0. D 16 IN ti TX 45 5- 6- 00 CA 76 EY ve N 04 20 20 0 RE 44 AN 26 15 16 TX D 0 PH CH TX AR AE NE MA L RA CY S LS LL TA C BL ET 00 10 02 0 30 30 ME 12 GA Ac PI 60 -0 -2 0. D 16 IN ti RI 30 9- 6- 00 CA 76 EY ve N 02 20 20 0 RE 41 EC 63 15 16 TX 2 PH CH 81 AR AE MA L MG CY S TA LL BL C ET ST 00 02 02 0 30 30 ME 12 GA Ac OO 53 -2 -2 0. D 16 IN ti L 61 3- 3- 00 CA 16 EY ve SO 06 20 20 0 RE 99 FT 41 16 16 TX EN 0 PH CH ER AR AE MA L 25 CY S 0 MG LL C SO FT GE L NO 64 02 02 0 30 5 ME 12 GA Ac RM 25 -1 -1 00 D 14 IN ti AL 30 9- 9- .0 CA 72 EY ve 11 20 20 00 RE 74 SA 13 16 16 TX LI 0 PH CH NE AR AE MA L FL CY S US H LL SY C RI NG E HE 64 02 02 0 10 5 ME 12 GA Ac PA 25 -1 -1 00 D 14 IN ti RI 30 9- 9- .0 CA 72 EY ve N 33 20 20 00 RE 75 50 33 16 16 TX 0 5 PH CH UN AR AE IT MA L /5 CY S ML LL C (1 00 /M L) NI 00 10 10 0 30 1 ME 11 GA Ac TR 28 -0 -0 0. D 70 IN ti O- 10 2- 2- 00 CA 90 EY ve BI 32 20 20 0 RE 44 D 63 15 15 TX 2% 0 PH CH AR AE OI MA L NT CY S ME NT LL C MO 00 10 10 0 30 15 ME 11 GA Ac RP 40 -0 -0 0. D 70 IN ti HI 68 1- 1- 00 CA 82 EY ve NE 31 20 20 0 RE 36 50 15 15 TX CLARK 1 PH CH LF AR AE MA L ER CY S 15 LL C MG TA BL ET NO 00 10 10 0 10 15 ME 11 GA Ac VO 16 -0 -0 00 D 70 IN ti FI 91 1- 1- .0 CA 82 EY ve NE 85 20 20 00 RE 35 27 15 15 TX AU 5 PH CH TO AR AE CO MA L VE CY S R 30 LL G C NE ED LE MA 00 09 09 0 19 3 ME 11 GA Ac PA 90 -1 -2 0. D 69 IN ti P 41 1- 8- 00 CA 64 EY ve 50 98 20 20 0 RE 31 0 86 15 15 TX MG 1 PH CH AR AE TA MA L BL CY S ET LL C FE 00 09 09 0 30 30 ME 11 GA Ac RR 60 -1 -1 0. D 66 IN ti OU 30 7- 7- 00 CA 15 EY ve S 17 20 20 0 RE 57 CLARK 92 15 15 TX LF 9 PH CH AT AR AE E MA L 32 CY S 5 MG LL C TA BL ET 00 09 09 0 13 13 ME 11 GA Ac TA 90 -1 -1 0. D 66 IN ti TX 45 7- 7- 00 CA 15 EY ve N 04 20 20 0 RE 56 AN 26 15 15 TX D 0 PH CH TX AR AE NE MA L RA CY S LS LL TA C BL ET 63 09 09 0 20 20 ME 11 GA Ac PI 73 -1 -1 0. D 64 IN ti RI 90 1- 1- 00 CA 99 EY ve N 43 20 20 0 RE 10 81 40 15 15 TX 1 PH CH MG AR AE MA L CH CY S EW AB LL LE C TA BL ET CA 68 03 09 0 18 90 WA 73 SM Ac RV 46 -1 -0 00 L- 69 IT ti ED 20 0- 3- .0 MA 55 H ve IL 16 20 20 00 RT 9 TX OL 50 15 15 KE 5 PH [...] -0 -0 0. L- 67 RS ti TX 96 4- 3- 00 MA 45 ON [...] 15 15 EU E 5 PH GO VA AR ND OP MA A CY F 50 # MC 10 G 05 SP 91 RA Y CL 16 03 08 7 30 30 KM 68 SM Ac OP 72 -1 -1 0. AR 59 IT ti ID 90 0- 2- 00 T 40 H ve OG 21 20 20 0 PH 5 TX RE 81 15 15 AR KE L 5 MA L 75 CY D # MG 48 TA 47 BL ET LE 00 12 08 11 15 30 KM 68 PA Ac VE 16 -0 -0 0. AR 56 RS ti TX 96 4- 5- 00 T 02 ON [...] 6- 4- 00 T 23 ON ve TX 21 20 20 0 PH 7 S DE 61 14 15 AR JE 0 MA RE 40 CY MY # C MG 48 TA 47 BL ET AT 00 04 08 4 30 30 KM 68 SM Ac OR 37 -0 -0 0. AR 59 IT ti VA 83 7- 4- 00 T [address] 95 20 20 0 PH 7 TX AT 37 15 15 AR KE IN 7 MA L CY D 80 # MG 48 47 TA BL ET VA 59 04 07 11 85 17 KM [...] 6- 8- 00 T 23 ON ve TX 21 20 20 0 PH 7 S DE 61 14 15 AR JE 0 MA RE 40 CY MY # C MG 48 TA 47 BL ET AT 00 04 07 4 30 30 KM 68 SM Ac OR 37 -0 -0 0. AR 59 IT ti VA 83 7- 8- 00 [address] 95 20 20 0 PH 7 TX AT 37 15 15 AR KE IN 7 MA L CY D 80 # MG 48 47 TA BL ET CL 16 03 07 7 30 30 KM 68 SM Ac OP 72 -1 -0 0. AR 59 IT ti ID 90 0- 8- 00 T 40 H ve OG 21 20 20 0 PH 5 TX RE 81 15 15 AR KE L 5 MA L 75 CY D # MG 48 TA 47 BL ET LE 00 12 06 11 15 30 KM 68 PA Ac VE 16 -0 -2 0. AR 56 RS ti TX 96 4- 9- 00 T 02 ON [...] OG 21 20 20 0 PH 5 TX RE 81 15 15 AR KE L 5 MA L 75 CY D # MG 48 TA 47 BL ET AT 00 04 06 4 30 30 KM 68 SM Ac OR 37 -0 -0 0. AR 59 IT ti VA 83 7- 3- 00 T [address] 95 20 20 0 PH 7 TX AT 37 15 15 AR KE IN 7 MA L CY D 80 # MG 48 47 TA BL ET FU 00 10 06 11 60 30 KM 68 PA Ac RO 37 -0 -0 0. AR 54 RS ti SE 80 6- 3- 00 T 23 ON ve TX 21 20 20 0 PH 7 S [...] RE CE CY MY TA # C TX NO 48 PH 47 N 10 -3 [...] 6- 4- 00 T 23 ON ve TX 21 20 20 0 PH 7 S DE 61 14 15 AR JE 0 MA RE 40 CY MY # C MG 48 TA 47 BL ET RO 43 03 05 1 60 30 KM 68 SM Ac PI 54 -1 -0 0. AR 59 IT ti NI 70 0- 4- 00 T 40 H ve RO 27 20 20 0 PH 6 TX LE 11 15 15 AR KE 0 MA L HC CY D L # 2 MG 48 47 TA BL ET CL 16 03 05 7 30 30 KM 68 SM Ac OP 72 -1 -0 0. AR 59 IT ti ID 90 0- 4- 00 T 40 H ve OG 21 20 20 0 PH 5 TX RE 81 15 15 AR KE L 5 MA L 75 CY D # MG 48 TA 47 BL ET AT 00 04 05 4 30 30 KM 68 SM Ac OR 37 -0 -0 0. AR 59 IT ti VA 83 7- 4- 00 T [address] 95 20 20 0 PH 7 TX AT 37 15 15 AR KE IN [...] C CA PS 48 UL 47 E VA 59 04 04 11 85 17 KM [...] PH 1 1 01 15 15 AR TX 4 MA CH GM CY AE /1 [...] ST 95 20 20 0 PH 7 TX AT 37 15 15 AR KE IN 7 MA L CY D 80 # MG 48 47 TA BL ET RO 43 03 04 1 60 30 KM 68 SM Ac PI 54 -1 -0 0. AR 59 IT ti NI 70 0- 7- 00 T 40 H ve RO 27 20 20 0 PH 6 TX LE 11 15 15 AR KE 0 MA L HC CY D L # 2 MG 48 47 TA BL ET CL 16 03 04 7 30 30 KM 68 SM Ac OP 72 -1 -0 0. AR 59 IT ti ID 90 0- 7- 00 T 40 H ve OG 21 20 20 0 PH 5 TX RE 81 15 15 AR KE L [...] ve 01 20 20 0 [place] 38 TX 50 36 15 15 2 KE 8 CL L MG IN D IC CA PS PH UL AR E MA CY LI 00 03 03 1 90 90 KE 52 SM Ac SI 17 -1 -1 0. NT 60 IT ti NO 23 0- 0- 00 UC 92 H ve VA 75 20 20 0 [place] 71 TX [place] 98 15 15 6 KE 0 CL L 10 IN D IC MG PH TA AR BL MA ET CY LE 00 03 03 1 15 83 KE 52 SM Ac VE 16 -1 -1 0. NT 60 IT ti TX 96 0- 0- 00 UC 92 H ve R 43 20 20 0 [place] 71 TX FL 81 15 15 8 KE EX 0 CL L TO IN D UC IC H 10 PH 0 AR UN MA IT CY S/ ML AM 00 03 03 0 40 8 KE 52 SM Ac IT 60 -1 -1 .0 NT 60 IT ti RI 32 0- 0- 00 UC 92 H ve PT 21 20 20 [place] 71 TX YL 32 15 15 3 KE IN 1 CL L E IN D HC IC L 25 PH AR MG MA CY TA B RO 23 03 03 0 60 30 KE 52 SM Ac PI 15 -1 -1 0. NT 60 IT ti NI 50 0- 0- 00 UC 92 H ve RO 12 20 20 0 [place] 71 TX LE 40 15 15 2 KE 1 CL L HC IN D L IC 2 MG PH AR TA MA BL CY ET NO 00 03 03 1 15 62 KE 52 SM Ac VO 16 -1 -1 0. NT 60 IT ti LO 96 0- 0- 00 UC 92 H ve G 33 20 20 0 [place] 71 TX 10 91 15 15 7 KE 0 0 CL L UN IN D IT IC S/ ML PH AR FL MA EX CY PE N AT 60 03 03 1 30 30 KE 52 SM Ac OR 50 -1 -1 0. NT 60 IT ti VA 52 0- 0- 00 [place] [address] 67 20 20 0 [place] 72 TX AT 10 15 15 0 KE IN 9 CL L IN D 80 IC MG PH AR TA MA BL CY ET ON 53 03 03 1 10 25 KE 52 SM Ac ET 88 -1 -1 00 NT 60 IT ti OU 50 0- 0- .0 UC 92 H ve CH 24 20 20 00 [place] 73 TX 51 15 15 0 KE UL 0 CL L TR IN D A IC TE ST PH AR ST MA RI CY PS ON 53 03 03 1 10 30 KE 52 SM Ac ET 88 -1 -1 00 NT 60 IT ti OU 50 0- 0- .0 UC 92 H ve CH 14 20 20 00 [place] 72 TX 30 15 15 9 KE DE 1 CL L LI IN D CA IC 33 PH G AR LA MA NC CY ET S CL 55 03 03 2 30 30 KE 52 SM Ac OP 11 -1 -1 0. NT 60 IT ti ID 10 0- 0- 00 UC 92 H ve OG 19 20 20 0 [place] 71 TX RE 69 15 15 9 KE L 0 CL L 75 IN D IC MG PH TA AR BL MA ET CY ON 53 03 03 0 10 30 KE 52 SM Ac ET 88 -1 -1 .0 NT 60 IT ti OU 50 0- 0- 00 UC 92 H ve CH 44 20 20 [place] 72 TX 80 15 15 1 KE UL 1 CL L TR IN D A2 IC GL PH UC AR OS MA E CY SY ST 00 03 03 1 90 90 KE 52 SM Ac PI 60 -1 -1 0. NT 60 IT ti RI 30 0- 0- 00 UC 92 H ve N 02 20 20 0 [place] 71 TX EC 62 15 15 4 KE 2 CL L 81 IN D IC MG PH TA AR BL MA ET CY CA 68 03 03 1 18 90 KE 52 SM Ac RV 38 -1 -1 00 NT 60 IT ti ED 20 0- 0- .0 UC 92 H ve IL 09 20 20 00 [place] 72 TX OL 50 15 15 2 KE 5 CL L 25 IN D IC MG PH TA AR BL MA ET CY FU 00 10 03 11 60 30 KM 68 PA Ac RO 37 -0 -0 0. AR 54 RS ti SE 80 6- 7- 00 T 23 ON ve TX 21 20 20 0 PH 7 S [...] 69 20 20 0 PH 7 S TX 61 14 15 AR KE X 9 [...] 6- 8- 00 T 23 ON ve TX 21 20 20 0 PH 7 S [...] 11 60 30 KM 68 PA Ac VA 18 -0 -2 0. AR 53 RS [...] 11 60 30 KM 68 PA Ac VA 18 -0 -1 0. AR 53 RS [...] 6- 7- 00 T 23 ON ve TX 21 20 20 0 PH 7 S [...] 11 60 30 KM 68 PA Ac VA 18 -0 -1 0. AR 53 RS [...] 44 6- 1- T 23 ON ve TX 29 20 20 0 PH 7 S [...] 11 60 30 KM 68 PA Ac VA 18 -0 -0 0. AR 53 RS [...] 44 6 6 T 23 ON ve TX 29 20 20 0 PH 7 S [...] 5- 7- 00 T 24 ES ve TX 29 20 20 0 PH 4 S [...] 11 60 30 KM 68 PA Ac VA 18 -0 -0 0. AR 53 RS [...] 5- 1- 00 T 24 ES ve TX 21 20 20 0 PH 4 S [...] TE ST [address] RI PS VA 59 06 07 11 85 25 KM [...] -1 -1 0. AR 48 LL ti VA 80 9- 5- 00 T 97 ve [...] 69 20 20 0 PH 7 S TX 61 14 14 AR KE X 9 [...] 5- 0- 00 T 24 ES ve TX 21 20 20 0 PH 4 S [...] L 50 48 47 MG TA B VA 59 06 06 11 85 25 KM [...] -1 -0 0. AR 48 LL ti VA 80 9- 9- 00 T 97 ve [...] 69 20 20 0 PH 7 S TX 61 14 14 AR KE X 9 [...] 5- 1- 00 T 24 ES ve TX 21 20 20 0 PH 4 S [...] 69 20 20 0 PH 7 S TX 61 14 14 AR KE X 9 MA LL 70 CY Y -3 # 0 FL 48 EX 47 PE N SY RN ME 00 09 05 6 60 30 KM 68 CASTELAN Ac TO 37 -1 -0 0. AR 48 LL ti VA 80 9- 5- 00 T 97 ve [...] 5- 2- 00 T 24 ES ve TX 21 20 20 0 PH 4 S [...] 5 IN RA CE IC J TA TX PH NO AR PH MA N CY [...] -1 -2 0. AR 48 LL ti VA 80 9- 7- 00 T 97 ve [...] 5 IN RA CE IC J TA TX PH NO AR PH MA N CY [...] 5- 5- 00 T 24 ES ve TX 21 20 20 0 PH 4 S [...] IN RE CE IC MY TA C TX PH NO AR PH MA N CY [...] 69 20 20 0 PH 2 S TX 61 13 14 AR JE X 9 [...] -2 0. AR 43 RS ti VA 80 9- 9- 00 T 88 ON [...] SE 80 5 T 93 ON ve TX 21 20 20 0 PH 2 S [...] IN RE CE IC MY TA C TX PH NO AR PH MA N CY [...] 5- 9- 00 T 93 ON ve TX 21 20 20 0 PH 2 S [...] -1 0. AR 43 RS ti VA 80 9- 9- 00 T 88 ON [...] 69 20 20 0 PH 2 S TX 61 13 13 AR JE X 9 [...] 7- 0- 00 T 23 ON ve TX 21 20 20 0 PH 8 S [...] -2 0. AR 43 RS ti VA 80 9- 0- 00 T 88 ON [...] 69 20 20 0 PH 2 S TX 61 13 13 AR JE X 9 [...] -2 0. AR 43 RS ti VA 80 9- 3- 00 T 88 ON [...] 7- 3- 00 T 23 ON ve TX 21 20 20 0 PH 8 S [...] -1 0. AR 43 RS ti VA 80 9- 9- 00 T 88 ON [...] 7- 8- 00 T 23 ON ve TX 21 20 20 0 PH 8 S [...] 7- 6- 00 T 23 ON ve TX 21 20 20 0 PH 8 S [...] 7- 8- 00 T 23 ON ve TX 21 20 20 0 PH 8 S [...] -0 -2 0. AR 38 RS ti VA 80 6- 8- 00 T 07 ON [...] 69 20 20 0 PH 1 S TX 61 12 13 AR JE X 9 [...] 7- 7- 00 T 23 ON ve TX 21 20 20 0 PH 8 S [...] -0 -3 0. AR 38 RS ti VA 80 6- 1- 00 T 07 ON [...] 69 20 20 0 PH 1 S TX 61 12 13 AR JE X 9 [...] 69 20 20 0 PH 1 S TX 61 12 13 AR JE X 9 [...] -0 -0 0. AR 38 RS ti VA 80 6- 2- 00 T 07 ON [...] 7- 5- 00 T 83 ON ve TX 21 20 20 0 PH 2 S [...] 69 20 20 0 PH 1 S TX 61 12 13 AR JE X 9 MA RE 70 CY MY -3 # C 0 FL 48 EX 47 PE N SY RN ME 00 02 04 4 60 30 KM 68 PA Ac TO 37 -0 -0 0. AR 38 RS ti VA 80 6- 5- 00 T 07 ON [...] -0 -0 0. AR 38 RS ti VA 80 6- 8- 00 T 07 ON [...] 7- 8- 00 T 83 ON ve TX 21 20 20 0 PH 2 S [...] 69 20 20 0 PH 1 S TX 61 12 13 AR JE X 9 [...] 4- 7- 00 T 12 ON ve TX 21 20 20 PH 8 S DE [...] -0 -2 .0 AR 11 YN ti VA 40 4- 7- 00 T 00 E ve OL 47 20 20 PH 6 VA OL 75 11 11 AR UG 8 MA HN TA CY W RT 71 RA 74 TE # 50 71 74 MG TA B VA 00 10 10 0 21 6 KM [...] 4- 8- 00 T 12 ON ve TX 21 20 20 PH 8 S DE 61 11 11 AR JE 0 MA RE 40 CY MY 71 C MG 74 # TA BL 71 ET 74 ME 00 01 09 6 60 30 KM 69 PA Ac TO 09 -0 -2 .0 AR 11 YN ti VA 30 4- 8- 00 T 00 E [...] G 69 20 20 PH 3 E TX 61 11 11 AR SA X 9 [...] 4- 1- 00 T 00 E ve TX 21 20 20 PH 9 VA DE [...] -0 -3 .0 AR 11 YN ti VA 30 4- 0- 00 T 00 E [...] G 69 20 20 PH 3 E TX 61 11 11 AR SA X 9 [...] 4- 3- 00 T 00 E ve TX 21 20 20 PH 9 VA DE [...] -0 -2 .0 AR 11 YN ti VA 30 4- 2- 00 T 00 E [...] 11 AR SA E 9 MA RA VA CY H OP 71 M 74 50 # MC 71 G 74 SP RA Y NO 00 06 07 3 15 30 KM 69 JU Ac VO 16 -2 -[address] ti LO 93 1- 2- 00 T 61 IC ve G 69 20 20 PH 3 E TX 61 11 11 AR SA X 9 [...] 4- 0- 00 T 00 E ve TX 21 20 20 PH 9 VA DE [...] 11 AR SA E 9 MA RA VA CY H OP 71 M 74 50 # MC 71 G 74 SP RA Y NO 00 06 06 3 15 30 KM 69 JU Ac VO 16 -2 -[address] ti LO 93 1- 2- 00 T 61 IC ve G 69 20 20 PH 3 E TX 61 11 11 AR SA X 9 [...] -0 -2 .0 AR 11 YN ti VA 30 4- 0- 00 T 00 E [...] 4- 2- 00 T 00 E ve TX 21 20 20 PH 9 VA DE [...] 11 AR SA E 9 MA RA VA CY H OP 71 M 74 50 [...] -0 -2 .0 AR 11 YN ti VA 30 4- 4- 00 T 00 E [...] G 69 20 20 PH 5 Y TX 61 10 11 AR JE X 9 [...] 4- 5- 00 T 00 E ve TX 21 20 20 PH 9 VA DE [...] 11 AR SA E 9 MA RA VA CY H OP 71 M 74 50 [...] -0 -2 .0 AR 07 YN ti VA 30 1- 7- 00 T 00 E [...] G 69 20 20 PH 5 Y TX 61 10 11 AR JE X 9 [...] 4- 8- 00 T 00 E ve TX 21 20 20 PH 9 VA DE [...] G 69 20 20 PH 5 Y TX 61 10 11 AR JE X 9 [...] 11 AR JE E 9 MA NN VA CY IF OP 71 ER 74 B 50 # MC 71 G 74 SP RA Y ME 00 11 03 6 60 30 KM 69 PA Ac TO 09 -0 -3 .0 AR 07 YN ti VA 30 1- 0- 00 T 00 E [...] 4- 4- 00 T 00 E ve TX 21 20 20 PH 9 VA DE [...] -0 -2 .0 AR 07 YN ti VA 30 1- 8- 00 T 00 E [...] G 69 20 20 PH 5 Y TX 61 10 11 AR JE X 9 [...] 11 AR JE E 9 MA NN VA CY IF OP 71 ER 74 B [...] 2- 5- 00 T 18 Y ve TX 21 20 20 PH 5 AZAM DE [...] -0 -2 .0 AR 07 YN ti VA 80 1- 6- 00 T 00 E [...] 11 AR JE E 9 MA NN VA CY IF OP 71 ER 74 B [...] G 69 20 20 PH 5 Y TX 61 10 11 AR JE X 9 [...] 2- 6- 00 T 18 Y ve TX 21 20 20 PH 5 AZAM DE [...] G 69 20 20 PH 5 Y TX 61 10 10 AR JE X 9 [...] 10 AR JE E 6 MA NN VA CY IF OP 71 ER 74 B [...] -0 -2 .0 AR 07 YN ti VA 80 1- 9- 00 T 00 E [...] 2- 6- 00 T 18 Y ve TX 21 20 20 PH 5 AZAM DE [...] -0 -2 .0 AR 07 YN ti VA 30 1- 9- 00 T 00 E [...] G 69 20 20 PH 8 TH TX 61 10 10 AR X 9 MA [...] 2- 8- 00 T 18 Y ve TX 21 20 20 PH 5 AZAM DE [...] -0 -0 .0 AR 07 YN ti VA 30 1- 00 T 00 E ve [...] 2- 1- 00 T 18 Y ve TX 21 20 20 PH 5 AZAM DE [...] -3 -0 .0 AR 94 YN ti VA 30 1- 2- 00 T 40 E [...] G 69 20 20 PH 8 TH TX 61 10 10 AR X 9 MA [...] 2- 3- 00 T 18 Y ve TX 21 20 20 PH 5 AZAM DE [...] -3 -0 .0 AR 94 YN ti VA 30 1- 2- 00 T 40 E [...] 8- 7- 00 T 58 Y ve TX 29 20 20 PH 9 AZAM DE [...] G 69 20 20 PH 3 TH TX 61 10 10 AR X 9 MA [...] -3 -0 .0 AR 94 YN ti VA 30 1- 2- 00 T 40 E [...] 8- 5- 00 T 58 Y ve TX 29 20 20 PH 9 AZAM DE [...] G 69 20 20 PH 3 TH TX 61 10 10 AR X 9 MA [...] -3 -0 .0 AR 94 YN ti VA 30 1- 2- 00 T 40 E [...] 8- 6- 00 T 58 Y ve TX 21 20 20 PH 9 AZAM DE [...] G 69 20 20 PH 3 TH TX 61 10 10 AR X 9 MA RA 70 CY -3 71 ND 0 74 ER FL # S EX PE 71 N 74 SY RN ME 00 06 06 21 6 RI 62 MU Ac TH 60 -0 -0 .0 TE 93 TI ti YL 34 7- 7- 00 98 SO ve VA 59 20 20 AI ED 31 10 10 D AN NI [address] SO AR EW LO MA M NE CY 4 02 MG 29 0 DO # SE 02 PK 29 ME 00 03 06 6 60 30 KM 68 PA Ac TO 09 -3 -0 .0 AR 94 YN ti VA 30 1- 1- 00 T 40 E [...] 8- 5- 00 T 58 Y ve TX 21 20 20 PH 9 AZAM DE [...] -3 -2 .0 AR 94 YN ti VA 30 1- 9- 00 T 40 E [...] G 69 20 20 PH 1 TH TX 61 10 10 AR X 9 MA [...] 8- 4- 00 T 58 Y ve TX 62 20 20 PH 9 AZAM DE [...] -3 -3 .0 AR 94 YN ti VA 30 1- 1- 00 T 40 E [...] 8- 8- 00 T 58 Y ve TX 62 20 20 PH 9 AZAM DE [...] 1- 8- 00 T 44 IN ve TX 62 20 20 PH 8 G DE [...] -3 -0 .0 AR 80 YN ti VA 30 1- 1- 00 T 99 E [...] 80 1- - RT 44 IN ve TX 21 20 20 8 G DE 61 09 10 PH MA 0 AR LE 40 M SH #7 EA MG 17 4 TA BL ET ME 00 08 02 05 60 30 K- 68 PA Ac TO 09 -3 -1 .0 MA 80 YN ti VA 30 1- - RT 99 E ve [...] 1- 4- 00 RT 44 IN ve TX 21 20 20 8 G DE 61 [...] -3 -1 .0 MA 80 YN ti VA 30 1- 4- 00 RT 99 E [...] -3 -1 .0 MA 80 YN ti VA 30 1 7- RT 99 E ve OL 73 20 20 6 VA OL 31 09 09 PH UG 0 AR HN TA M W RT #7 RA 17 TE 4 50 MG TA B FU 00 06 12 00 30 30 K- 68 DU Ac RO 37 -1 -1 .0 MA 76 NN ti SE 80 1- 7- RT 44 IN ve TX 21 20 20 8 G DE 61 [...] SE 80 8 RT 77 IN ve TX 21 20 20 0 G DE 61 [...] -3 -0 .0 MA 80 YN ti VA 80 1- 5- 00 RT 99 E [...] 8- 2- 00 RT 77 IN ve TX 21 20 20 0 G DE 61 [...] -3 -0 .0 MA 80 YN ti VA 80 1- 8- 00 RT 99 E [...] 8- 4- 00 RT 77 IN ve TX 21 20 20 0 G DE 61 [...] -3 -1 .0 MA 80 YN ti VA 80 1- 0- 00 RT 99 E [...] 8- 7- 00 RT 77 IN ve TX 21 20 20 0 G DE 61 [...] -2 -1 .0 MA 58 YN ti VA 80 5- 3- 00 RT 62 E [...] 8- 0- 00 RT 77 IN ve TX 21 20 20 0 G DE 61 [...] -2 -1 .0 MA 58 YN ti VA 80 5- 6- 00 RT 62 E [...] 8- 2- 00 RT 77 IN ve TX 21 20 20 0 G DE 61 [...] -2 -0 .0 MA 58 YN ti VA 80 5- 4- 00 RT 62 E [...] 2- 7- 00 RT 82 IN ve TX 21 20 20 3 G DE 61 [...] 2- 7- 00 RT 52 IN ve TX 00 20 20 0 5 G N [...] -2 -0 .0 MA 58 YN ti VA 80 5- 7- 00 RT 62 E [...] 2- 3- 00 RT 82 IN ve TX 21 20 20 3 G DE 61 [...] 2- 3- 00 RT 52 IN ve TX 00 20 20 0 5 G N [...] -2 -0 .0 MA 58 YN ti VA 80 5- 9- 00 RT 62 E [...] 2- 6- 00 RT 52 IN ve TX 00 20 20 0 5 G N [...] 2- 6- 00 RT 82 IN ve TX 21 20 20 3 G DE 61 [...] -2 -1 .0 MA 58 YN ti VA 80 5- 2- 00 RT 62 E [...] 2- 6- 00 RT 82 IN ve TX 21 20 20 3 G DE 61 [...] -2 -1 .0 MA 58 YN ti VA 80 5- 2- 00 RT 62 E [...] 1- 0- 00 RT 23 E ve TX 21 20 20 0 VA DE 61 [...] 2- 0- 00 RT 52 IN ve TX 00 20 20 0 5 G N 80 09 09 PH MA HC 5 AR LE L M SH 50 #7 EA 0 17 MG 4 TA BL ET VA 00 01 01 00 24 6 EC [...] 10 01 01 90 30 K- 44 TX Ac RI 07 -2 -0 .0 MA [...] -2 -0 .0 MA 58 YN ti VA 80 5- 1- 00 RT 62 E [...] 1- 1- 00 RT 23 E ve TX 21 20 20 0 VA DE 61 [...] 1- 4- 00 RT 23 E ve TX 21 20 20 0 VA DE 61 08 08 PH UG 0 AR HN 40 M W #7 MG 17 4 TA BL ET TR 00 10 12 01 12 30 K- 68 TX Ac AM 37 -2 -0 0. MA [...] -2 -0 .0 MA 58 YN ti VA 80 5- 4- 00 RT 62 E [...] 10 11 00 12 30 K- 44 TX Ac 40 -2 -0 0. MA 53 [...] 10 11 00 90 30 K- 44 TX Ac RI 07 -2 -0 .0 MA 53 CK ti CA 11 8- 7- RT 16 ve 01 20 20 6 GR 15 66 08 08 PH EG 0 8 AR OR MG M Y #7 E CA 17 PS 4 UL E TR 00 10 11 00 12 30 K- 68 TX Ac AM 37 -2 -0 0. MA [...] 1- 7- 00 RT 23 E ve TX 21 20 20 0 VA DE 61 08 08 PH UG 0 AR HN 40 M W #7 MG 17 4 TA BL ET ME 00 08 11 02 60 30 K- 68 PA Ac TO 37 -2 -0 .0 MA 58 YN ti VA 80 5- 7- 00 RT 62 E [...] ti SE 80 RT 23 E ve TX 21 20 20 0 VA DE 61 08 08 PH UG 0 AR HN 40 M W #7 MG 17 4 TA BL ET ME 00 08 10 01 60 30 K- 68 PA Ac TO 37 -2 -0 .0 MA 58 YN ti VA 80 5 RT 62 E ve OL [...] 1- 1- 00 RT 23 E ve TX 21 20 20 0 VA DE 61 08 08 PH UG 0 AR HN 40 M W #7 MG 17 4 TA BL ET ME 00 08 09 00 60 30 K- 68 PA Ac TO 37 -2 -1 .0 MA 58 YN ti VA 80 5- 1- 00 RT 62 E [...] 1- 4- 00 RT 23 E ve TX 21 20 20 0 VA DE 61 [...] 00 60 30 K- 68 BA Ac VA 18 -1 -1 .0 MA 53 IL [...] 08 PH CH E 9 AR RI VA M ST OP #7 OP 17 HE [...] 2- 7- 00 RT 98 EY ve TX 21 20 20 2 DE 61 08 [...] IN HE BL C R ET M VA 68 05 06 00 12 4 K- [...] 4- 5- 00 R 51 Av ve TX 96 20 20 TR ai DE 61 [...] 08 AC la E 9 E bl VA PH e OP M IN 50 C [...] 4- 8- 00 R 51 Av ve TX 96 20 20 TR ai DE 61 [...] 08 AC la E 9 E bl VA PH e OP M IN 50 C [...] 8- 7- 00 RT 60 Av ve TX 21 20 20 5 ai DE 61 08 08 PH la 0 AR bl 40 M e #7 MG 17 4 TA BL ET ME 00 03 04 00 60 30 K- 68 No Ac TO 37 -1 -1 .0 MA 48 t ti VA 80 8- 7- 00 RT 60 Av [...] 4- 0- 00 R 51 Av ve TX 96 20 20 TR ai DE 61 [...] 08 AC la E 9 E bl VA PH e OP M IN 50 C [...] 3- 0- 00 R 01 Av ve TX 03 20 20 TR ai N 00 [...] 7- 6- 00 RT 16 Av ve TX 21 20 20 1 ai DE 61 [...] 1- 6- 00 R 69 Av ve TX 02 20 20 0 TR ai N [...] -2 -2 .0 MA 43 t ti VA 80 7- 6- 00 RT 16 Av [...] 7- 5- 00 RT 16 Av ve TX 21 20 20 1 ai DE 61 07 08 PH la 0 AR bl 40 M e #7 MG 17 4 TA BL ET ME 68 12 03 01 12 30 CE 33 No Ac TF 38 -2 -2 0. DA 20 t ti OR 20 1- 5- 00 R 69 Av ve TX 02 20 20 0 TR ai N [...] -2 -2 .0 MA 43 t ti VA 80 7- 5- 00 RT 16 Av [...] Procedure DOS Code Location Performer Comment MEASUREME [id number] RADHA GARCIA NT 5 W W [facility] RT HEART PERQ TRANSFUSI [id number] RADHA GARCIA ON 5 W W NONAUTO [facility] RED BLD [facility] CELLS PERIPH VN PERQ LEFT 3722 [facility] 5 Y Y [facility] CATHETERI ZATION CORONARY 8856 [facility] ARTERIO[facility] 5 Y Y [facility] USING TWO CATHETERS INSERTION 3607 [facility] 5 Y Y [facility] COR[facility]ARY ARTERY STENT INSERTION 0046 [facility] [place] 5 Y Y [facility] STENTS PERQ 0066 [facility] 5 Y Y [facility] CORONARY ANGIOPLAS TY PTCA INSERTION 8607 [facility] TOTALLY 1 [facility] IMPL MEDICAL MEDICAL VASCULAR CE CE ACCESS DEVICE Encounters Encounter Start End Date Code Location Performer Type Date [facility] - 7 7 [facility] - 7 7 [facility] - 7 7 [facility] - 7 7 [facility] - 7 7 [facility] 7 7 [facility] 7 7 [facility] - 7 7 [facility] - 7 7 [facility] 7 7 [facility] - 7 [facility] - 7 7 [facility]PATI[facility] SOCRATES - 7 7 [facility]PATI[facility] SOCRATES - 7 7 [facility]PATIEN [facility] SOCRATES - 6 6 [facility]PATI[facility] SOCRATES - 6 6 [facility]PATI[facility] SOCRATES - 6 6 [facility]PATI[facility] SOCRATES - 6 6 [facility]PATI[facility] SO[facility] - 6 6 [facility] SOCR[facility] - 6 6 [facility] - 6 6 [facility] SO[facility] - 6 6 [facility]PATIEN [facility] SOCRATES - 6 6 [facility] OUTPATIEN [facility] SOCRATES - 6 6 [facility]PATIEN [facility] SOCRATES - 6 6 [facility]PATIEN [facility] SOCRATES - 6 6 [facility] 6 6 [facility] 6 6 [facility] 5 5 [facility] 5 5 [facility] 5 5 OF [facility] - 5 5 [facility] 5 5 [facility] 5 5 [facility]CR[facility] - 5 5 [facility] - 5 5 [facility] 5 5 [facility] [place] - 5 5 [facility] SOCRATES - 5 5 [facility] SOCRATES - 5 5 [facility] SOCRATES - OTHER 5 5 [facility] SOCRATES - 5 5 [facility] [place] [facility] 5 5 [facility] SOCRATES - 5 5 [facility] 5 5 [facility] SOCRATES - 5 5 [facility]PATIEN [facility] 5 5 [facility] - 5 5 [facility] SOCRATES - 5 5 [facility] OUTPATIEN INC [facility], 5 5 HOME OUTPATIEN HEALTH AGENCY [facility], 5 5 HOME OUTPATIEN [facility]ALTH [facility] [place] [facility], 5 5 HOME OUTPATI[facility] [place] [facility], 4 4 HOME OUTPATIEN [facility]ALTH [facility] SOCRATES - 4 4 [facility] - 4 4 [facility] [place] - 4 4 [facility] - 4 4 [facility] OUTPATIEN INC [facility] SOCRATES - 4 4 [facility] [place] - 4 4 [facility] OUTPATIEN [facility] - 4 4 [facility] - 4 4 [facility] - 4 4 [facility]PATIEN INC [facility] SOCRATES - 4 4 [facility] - 4 4 [facility]PATIEN [facility] SOCR[facility] - 3 3 [facility]PATIEN [facility] [place] - 3 3 [facility] OUTPATIEN [facility] [place] - 3 3 [facility] OUTPATIEN [facility] - 3 3 [facility]PATIEN [facility] [place] - 2 2 [facility] OUTPATIEN [facility] [place] - 2 2 [facility]PATI[facility] [place] - 1 1 REGIONAL OUTPATIEN MEDICAL T CE HOME [facility], 1 1 HOME OUTPATIEN HEALTH T [facility] [place] - 1 1 [facility]AL INPATIENT [facility] [place] - 0 0 MEDICAL OUTPATIEN [facility] [place] - 0 0 [facility] OUTPATIEN [facility] [place] - 0 0 [facility]AL OUTPATIEN [facility]ICAL [facility] - 0 0 MED[facility] OUTPAT[facility]EN [facility] - 9 9 MEDICAL OUTPATIEN [facility] [place] - 9 9 REG[facility]AL OUTPATIEN [facility] [place] - 9 9 [facility] OUTPATIEN [facility] [place] - 8 8 [facility] OUTPATIEN [facility] [place] - 8 8 [facility]PATI[facility] [place] - 8 8 [facility] [place] - 8 8 [facility] [place] - 8 8 [facility] [place] - 8 8 [facility] [place] - 8 8 [facility] [place] - 8 8 [facility] [place] - 8 8 [facility] [place] - 8 8 [facility] [place] - 8 8 [facility] [place] - [address] [facility] [place] [id number] [address] [facility] [place] [address] [facility] [place] [address] [facility] 8 [facility]
--- OUTSIDE RECORDS SUMMARY | 2017-03-14 16:19 | External Medical Summary Rpt | CCD ---
Demographics Preferred Language Tuvaluan Marital Status Unknown Caodaism Affiliation Unknown Race Unknown Ethnic Group Unknown Author Author , NOREEN SORTO Address Unknown Phone Immunization No patient found.
--- OUTSIDE RECORDS SUMMARY | 2017-03-14 16:19 | External Medical Summary Rpt | CCD ---
Demographics Preferred Language German Marital Status Unknown Catholic Affiliation Unknown Race Unknown Ethnic Group Unknown Author Author , NOREEN SORTO Address Unknown Phone Immunization No patient found.
--- OUTSIDE RECORDS SUMMARY | 2017-03-14 16:22 | External Medical Summary Rpt ---
Author Author NOREEN Coats, NOREEN Jalousier Organization [employer] Address Unknown Phone Unavailable Payers Section Payer Plan Name Group ID Member ID Coverage Coverage Start End Date Date E04^ [id number] No No MEDICAL MEDICAL 3 informati informati ASSISTANC ASSISTANC on in on in E E^PLANID source source data data Results Glucose [Mass/volume] in Capillary blood by Glucometer Observa Value Referen Units Interpr Notes Date ti ce etation Range Glucose 70 - 110 mg/dl High Mar 13 [Mass/vol informati 2016 6:33 ume] in on in AM Capillary source blood by data Glucomete r CBC W Auto Differential panel in Blood Observa Value Referen Units Interpr Notes Date ti ce etation Range Basophils 0 - 0.2 K/MM3 Normal Mar 13 informati 2016 6:20 [#/volume on in AM ] in source Blood by data Automated count Basophils 0.1 - 2.0 % Low No Mar 13 / informati 2016 6:20 leukocyte on in AM s in source Blood by data Automated count Eosinophi 0.0 - 0.4 K/mm3 Normal Mar 13 ls informati 2016 6:20 [#/volume on in AM ] in source Blood by data Automated count Eosinophi 0.1 - % Normal Mar 13 ls/100 12.0 informati 2016 6:20 leukocyte on in AM s in source Blood by data Automated count Granulocy 1.3 - 8.0 K/mm3 Normal No Mar 13 [place] informati 2016 6:20 [#/volume on in AM ] in source Blood by data Automated count Granulocy 37.0 - % High Mar 13 [place]/100 80.0 informati 2016 6:20 leukocyte on in AM s in source Blood by data Automated count Hematocri 42.0 - % Low Mar 13 t [Volume 52.0 informati 2016 6:20 on in AM Fraction] source of Blood data Hemoglobi 14.1 - g/dL Low Mar 13 n 18.0 informati 2016 6:20 [Mass/vol on in AM ume] in source Blood data Lymphocyt 0.7 - 4.5 K/mm3 Low Mar 13 es informati 2016 6:20 [#/volume on in AM ] in source Unspecifi data ed specimen by Automated count Lymphocyt 10 - 50 % Low No Mar 13 es informati 2016 6:20 [#/volume on in AM ] in source Unspecifi data ed specimen by Automated count Erythrocy 27 - 31.2 pg Low Mar 13 te mean informati 2017 6:20 corpuscul on in AM ar source hemoglobi data n [Entitic mass] Erythrocy 31.8 - g/dl Low Mar 13 te mean 35.4 informati 2017 6:20 corpuscul on in AM ar source hemoglobi data n concentra tion [Mass/vol ume] by Automated count Erythrocy 82.2 - fl Low Mar 13 te mean 97.8 informati 2017 6:20 corpuscul on in AM ar volume source [Entitic data volume] by Automated count Monocytes 0.1 - 1.0 K/mm3 Normal No Mar 13 informati 2016 6:20 [#/volume on in AM ] in source Blood by data Automated count Monocytes 1.7 - 9.3 % Normal No Mar 13 /100 informati 2017 6:20 leukocyte on in AM s in source Blood by data Automated count Platelet 7.4 - fl Normal Mar 13 mean 10.4 informati 2017 6:20 volume on in AM [Entitic source volume] data in Blood by Automated count Platelets 142 - 424 K/mm3 Normal No Mar 13 informati 2016 6:20 [#/volume on in AM ] in source Blood data Erythrocy 4.6 - 6.2 M/mm3 Low No Mar 13 [place] informati 2016 6:20 [#/volume on in AM ] in source Amniotic data fluid Erythrocy 11.5 - % Normal Mar 13 te 17.5 informati 2016 6:20 distribut on in AM ion width source [Entitic data volume] by Automated count Leukocyte 4.8 - K/MM3 No Mar 13 s 10.8 informati informati 2016 6:20 [#/volume on in on in AM ] in source source Blood data data Differential panel, method unspecified - Observa Value Referen Units Interpr Notes Date tion ce etation Range Hypochr 2+ No No No No Mar 13 omia informa informa informa informa 2016 [Presen tion in tion in tion in tion in 6:20 AM ce] in source source source source Blood data data data data LYMPH 5 10 - 50 % Low No Mar 13 informa 2016 tion in 6:20 AM source data Monocytes 2 - 9 % Normal No Mar 13 /100 informati 2016 6:20 leukocyte on in AM s in source Blood by data Automated count Platele NORMAL No No No Mar 13 ts informa informa informa informa 2016 [Presen tion in tion in tion in tion in 6:20 AM ce] in source source source source Blood data data data data by Light microsc opy Neutrophi 42 - 76 % High No Mar 13 ls informati 2016 6:20 [#/volume on in AM ] in source Blood by data Automated count Cells No #CELLS No Mar 13 Counted informati informati informati 2017 6:20 Total [#] on in on in on in AM in Blood source source source data data data Comprehensive metabolic 2000 panel in Serum or Plasma Observa Value Referen Units Interpr Notes Date tion ce etation Range Albumin/G 1.1 - 1.8 No Low No Mar 13 lobulin informati informati 2017 6:20 [Mass on in on in AM ratio] in source source Serum or data data Plasma Albumin 3.4 - 5.0 gm/dL Low No Mar 13 [Mass/vol informati 2016 6:20 ume] in on in AM Serum or source Plasma data Alkaline 46 - 116 U/L Normal Mar 13 phosphata informati 2016 6:20 se on in AM [Enzymati source c data activity/ volume] in Serum or Plasma Bilirubin 0.2 - 1.0 mg/dL Normal Mar 13 .total informati 2016 6:20 [Mass/vol on in AM ume] in source Serum or data Plasma Urea 7 - 18 mg/dL High Mar 13 nitrogen NOTIFICAT 2017 6:20 [Mass/vol ION AM ume] in RESULT Serum or Plasma Calcium 8.5 - mg/dL Normal No Mar 13 [Mass/vol 10.1 informati 2017 6:20 ume] in on in AM Serum or source Plasma data Chloride 98 - 107 mmoL/L Normal No Mar 13 [Moles/vo informati 2017 6:20 lume] in on in AM Serum or source Plasma data Carbon 21.0 - mmoL/L High No Mar 13 dioxide, 32.0 informati 2016 6:20 total on in AM [Moles/vo source lume] in data Serum or Plasma Creatinin 0.70 - mg/dL High No Mar 13 e 1.30 informati 2016 6:20 [Mass/vol on in AM ume] in source Serum or data Plasma Creatinin 50 - 200 ML/MIN Normal No Mar 13 e renal informati 2016 6:20 clearance on in AM source predicted data by Cockcroft -Gault formula Estimated >60 ML/MIN No REFERENCE Mar 13 informati RANGE: 2017 6:20 glomerula on in >60 AM r source ML/MIN/1. filtratio data 73 SQUARE n rate METERSIf (GF this patient is -A merican, then multiply theresult by 1.210. Globulin 1.3 - 3.2 gm/dL High Mar 13 [Mass/vol informati 2016 6:20 ume] in on in AM Serum source data Glucose 74 - 106 mg/dL High Mar 13 [Mass/vol informati 2016 6:20 ume] in on in AM Serum or source Plasma data Potassium 3.5 - 5.1 mmoL/L Normal No Mar 13 informati 2016 6:20 [Moles/vo on in AM lume] in source Serum or data Plasma Sodium 136 - 145 mmoL/L Normal No Mar 13 [Moles/vo informati 2016 6:20 lume] in on in AM Serum or source Plasma data Aspartate 15 - 37 U/L Normal No Mar 13 informati 2016 6:20 aminotran on in AM sferase source [Enzymati data c activity/ volume] in Serum or Plasma Alanine 12 - 78 U/L Normal No Mar 13 aminotran informati 2016 6:20 sferase on in AM [Enzymati source c data activity/ volume] in Serum or Plasma Protein 6.4 - 8.2 gm/dL Normal Mar 13 [Mass/vol informati 2016 6:20 ume] in on in AM Serum or source Plasma data Glucose [Mass/volume] in Capillary blood by Glucometer Observa Value Referen Units Interpr Notes Date tion ce etation Range Glucose 70 - 110 mg/dl High No Mar 13 [Mass/vol informati 2017 1:09 ume] in on in AM Capillary source blood by data Glucomete r Glucose [Mass/volume] in Capillary blood by Glucometer Observa Value Referen Units Interpr Notes Date tion ce etation Range Glucose 70 - 110 mg/dl High No Mar 12 [Mass/vol alert informati 2016 8:01 ume] in on in PM Capillary source blood by data Glucomete r Glucose [Mass/volume] in Capillary blood by Glucometer Observa Value Referen Units Interpr Notes Date tion ce etation Range Glucose 70 - 110 mg/dl High No Mar 12 [Mass/vol alert informati 2016 4:42 ume] in on in PM Capillary source blood by data Glucomete r Glucose [Mass/volume] in Capillary blood by Glucometer Observa Value Referen Units Interpr Notes Date tion ce etation Range Glucose 70 - 110 mg/dl High No Mar 12 [Mass/vol alert informati 2016 ume] in on in 11:41 AM Capillary source blood by data Glucomete r Glucose [Mass/volume] in Capillary blood by Glucometer Observa Value Referen Units Interpr Notes Date tion ce etation Range Glucose 70 - 110 mg/dl High No Mar 12 [Mass/vol informati 2016 6:33 ume] in on in AM Capillary source blood by data Glucomete r CBC W Auto Differential panel in Blood Observa Value Referen Units Interpr Notes Date tion ce etation Range Basophils 0 - 0.2 K/MM3 Normal No Mar 12 inform2016 6:00 [#/volume on in AM ] in source Blood by data Automated count Basophils 0.1 - 2.0 % Normal No Mar 12 informati 2016 6:00 leukocyte on in AM s in source Blood by data Automated count Eosinophi 0.0 - 0.4 K/mm3 Normal No Mar 12 ls informati 2016 6:00 [#/volume on in AM ] in source Blood by data Automated count Eosinophi 0.1 - % Normal Mar 12 12.0 informati 2016 6:00 leukocyte on in AM s in source Blood by data Automated count Granulocy 1.3 - 8.0 K/mm3 Normal No Mar 12 [place] informati 2016 6:00 [#/volume on in AM ] in source Blood by data Automated count Granulocy 37.0 - % High Mar 12 [place]/100 80.0 informati 2017 6:00 leukocyte on in AM s in source Blood by data Automated count Hematocri 42.0 - % Low Mar 12 t [Volume 52.0 informati 2016 6:00 on in AM Fraction] source of Blood data Hemoglobi 14.1 - g/dL Low Mar 12 n 18.0 informati 2016 6:00 [Mass/vol on in AM ume] in source Blood data Lymphocyt 0.7 - 4.5 K/mm3 Low Mar 12 es informati 2016 6:00 [#/volume on in AM ] in source Unspecifi data ed specimen by Automated count Lymphocyt 10 - 50 % Low Mar 12 es informati 2016 6:00 [#/volume on in AM ] in source Unspecifi data ed specimen by Automated count Erythrocy 27 - 31.2 pg Low Mar 12 te mean informati 2016 6:00 corpuscul on in AM ar source hemoglobi data n [Entitic mass] Erythrocy 31.8 - g/dl Low Mar 12 te mean 35.4 informati 2016 6:00 corpuscul on in AM ar source hemoglobi data n concentra tion [Mass/vol ume] by Automated count Erythrocy 82.2 - fl Low Mar 12 te mean 97.8 informati 2017 6:00 corpuscul on in AM ar volume source [Entitic data volume] by Automated count Monocytes 0.1 - 1.0 K/mm3 Normal No Mar 12 informati 2016 6:00 [#/volume on in AM ] in source Blood by data Automated count Monocytes 1.7 - 9.3 % Normal No Mar 12 /100 informati 2017 6:00 leukocyte on in AM s in source Blood by data Automated count Platelet 7.4 - fl Normal Mar 12 mean 10.4 informati 2017 6:00 volume on in AM [Entitic source volume] data in Blood by Automated count Platelets 142 - 424 K/mm3 Normal Mar 12 informati 2016 6:00 [#/volume on in AM ] in source Blood data Erythrocy 4.6 - 6.2 M/mm3 Low Mar 12 [place] informati 2017 6:00 [#/volume on in AM ] in source Amniotic data fluid Erythrocy 11.5 - % Normal Mar 12 te 17.5 informati 2016 6:00 distribut on in AM ion width source [Entitic data volume] by Automated count Leukocyte 4.8 - K/MM3 Low No Mar 12 s 10.8 informati 2016 6:00 [#/volume on in AM ] in source Blood data Differential panel, method unspecified - Observa Value Referen Units Interpr Notes Date tion ce etation Range Hypochr 2+ No No No Mar 12 omia informa informa informa informa 2016 [Presen tion in tion in tion in tion in 6:00 AM ce] in source source source source Blood data data data data LYMPH 6 10 - 50 % Low No Mar 12 inform2016 tion in 6:00 AM source data Monocytes 2 - 9 % Low No Mar 12 /100 informati 2016 6:00 leukocyte on in AM s in source Blood by data Automated count Platele NORMAL No No No Mar 12 ts informa informa informa informa 2016 [Presen tion in tion in tion in tion in 6:00 AM ce] in source source source source Blood data data data data by Light microsc opy Neutrophi 42 - 76 % High No Mar 12 ls informati 2016 6:00 [#/volume on in AM ] in source Blood by data Automated count Cells No #CELLS No Mar 12 Counted informati informati informati 2016 6:00 Total [#] on in on in on in AM in Blood source source source data data data Comprehensive metabolic 2000 panel in Serum or Plasma Observa Value Referen Units Interpr Notes Date ti ce etation Range Albumin/G 1.1 - 1.8 No Low No Mar 12 lobulin informati informati 2016 6:00 [Mass on in on in AM ratio] in source source Serum or data data Plasma Albumin 3.4 - 5.0 gm/dL Low No Mar 12 [Mass/vol informati 2016 6:00 ume] in on in AM Serum or source Plasma data Alkaline 46 - 116 U/L Normal No Mar 12 phosphata informati 2016 6:00 se on in AM [Enzymati source c data activity/ volume] in Serum or Plasma Bilirubin 0.2 - 1.0 mg/dL Normal No Mar 12 .total informati 2016 6:00 [Mass/vol on in AM ume] in source Serum or data Plasma Urea 7 - 18 mg/dL High Mar 12 nitrogen NOTIFICAT 2017 6:00 [Mass/vol ION AM ume] in RESULT Serum or Zulema Plasma ne Calcium 8.5 - mg/dL Normal No Mar 12 [Mass/vol 10.1 informati 2016 6:00 ume] in on in AM Serum or source Plasma data Chloride 98 - 107 mmoL/L Normal No Mar 12 [Moles/vo informati 2016 6:00 lume] in on in AM Serum or source Plasma data Carbon 21.0 - mmoL/L High Mar 12 dioxide, 32.0 NOTIFICAT 2017 6:00 total ION AM [Moles/vo RESULT lume] in Zulema Serum or ne Plasma Creatinin 0.70 - mg/dL High No Mar 12 e 1.30 informati 2016 6:00 [Mass/vol on in AM ume] in source Serum or data Plasma Creatinin 50 - 200 ML/MIN Normal No Mar 12 e renal informati 2016 6:00 clearance on in AM source predicted data by Cockcroft -Gault formula Estimated >60 ML/MIN No REFERENCE Mar 12 informati RANGE: 2017 6:00 glomerula on in >60 AM r source ML/MIN/1. filtratio data 73 SQUARE n rate METERSIf (GF this patient is -A merican, then multiply theresult by 1.210. Globulin 1.3 - 3.2 gm/dL High No Mar 12 [Mass/vol informati 2016 6:00 ume] in on in AM Serum source data Glucose 74 - 106 mg/dL High Mar 12 [Mass/vol informati 2016 6:00 ume] in on in AM Serum or source Plasma data Potassium 3.5 - 5.1 mmoL/L Normal No Mar 12 informati 2016 6:00 [Moles/vo on in AM lume] in source Serum or data Plasma Sodium 136 - 145 mmoL/L Normal No Mar 12 [Moles/vo informati 2016 6:00 lume] in on in AM Serum or source Plasma data Aspartate 15 - 37 U/L Normal Mar 12 informati 2016 6:00 aminotran on in AM sferase source [Enzymati data c activity/ volume] in Serum or Plasma Alanine 12 - 78 U/L Normal Mar 12 aminotran informati 2016 6:00 sferase on in AM [Enzymati source c data activity/ volume] in Serum or Plasma Protein 6.4 - 8.2 gm/dL Normal No Mar 12 [Mass/vol informati 2016 6:00 ume] in on in AM Serum or source Plasma data Glucose [Mass/volume] in Capillary blood by Glucometer Observa Value Referen Units Interpr Notes Date ti ce etation Range Glucose 70 - 110 mg/dl High No Mar 11 [Mass/vol alert informati 2016 9:05 ume] in on in PM Capillary source blood by data Glucomete r Glucose [Mass/volume] in Capillary blood by Glucometer Observa Value Referen Units Interpr Notes Date ti ce etation Range Glucose 70 - 110 mg/dl High No Mar 11 [Mass/vol alert informati 2016 4:18 ume] in on in PM Capillary source blood by data Glucomete r Glucose [Mass/volume] in Capillary blood by Glucometer Observa Value Referen Units Interpr Notes Date ti ce etation Range Glucose 70 - 110 mg/dl High No Mar 11 [Mass/vol alert informati 2016 ume] in on in 11:43 AM Capillary source blood by data Glucomete r Glucose [Mass/volume] in Capillary blood by Glucometer Observa Value Referen Units Interpr Notes Date ti ce etation Range Glucose 70 - 110 mg/dl High No Mar 11 [Mass/vol informati 2016 6:29 ume] in on in AM Capillary source blood by data Glucomete r Gas panel in Arterial blood Observa Value Referen Units Interpr Notes Date ti etation Range Base -2.4-+2.3 MMOL/L High No [...] High No Mar 11 te 26.0 informati 2017 4:45 [Moles/vo on in AM lume] in [...] Low No Mar 11 Arterial 7.45 informati 2017 4:45 blood on in AM source data [...] Mar 11 RADIAL informa informa informa informa 2016 tion in tion in tion in tion in 4:45 AM source source source source data data data data Carbon 23 - 27 MMOL/L High No Mar 11 dioxide, informati 2016 4:45 total on in AM [Moles/vo source [...] Test strip Leukocy [50 O wbc/hpf No No Mar 11 [place] wbc/hpf informa informa 2016 [#/volu ; 100 tion in tion in 4:30 AM me] in wbc/hpf source source Urine ] data data WBC casts NONE #/lpf No No Mar 11 [#/area] informati informati 2016 4:30 in Urine on in on in AM sediment source source by data data Microscop y low power field Urinalysis dipstick W Reflex Microscopic panel in Urine Observa Value Referen Units Interpr Notes Date tion ce etation Range Appeara SL CLEAR No No No Mar 11 nce of CLOUDY informa informa informa 2017 Urine tion in tion in tion in [...] Range Creatine 0 - 4.0 U/L Normal Mar 11 kinase.MB informati 2016 4:09 /Creatine on in AM source kinase.to data weston [Ratio] in Serum or Plasma Creatine 0.0 - 3.6 ng/mL Normal Mar 11 kinase.MB informati 2016 4:09 on in AM [Mass/vol source ume] in data Serum or Plasma Creatine 39 - 308 U/L Low No Mar 11 kinase informati 2016 4:09 [Enzymati on in AM c source activity/ data volume] in Serum or Plasma Troponin 0.00 - ng/mL Normal No Mar 11 I.cardiac 0.06 informati 2017 4:09 on in AM [Mass/vol source ume] in data Serum or Plasma Comprehensive metabolic 2000 panel in Serum or Plasma Observa Value Referen Units Interpr Notes Date tion ce etation Range Albumin/G 1.1 - 1.8 No Low Mar 11 lobulin informati informati 2016 4:09 [Mass on in on in AM ratio] in source source Serum or data data Plasma Albumin 3.4 - 5.0 gm/dL Low No Mar 11 [Mass/vol informati 2016 4:09 ume] in on in AM Serum or source Plasma data Alkaline 46 - 116 U/L Normal Mar 11 phosphata informati 2016 4:09 se on in AM [Enzymati source c data activity/ volume] in Serum or Plasma Bilirubin 0.2 - 1.0 mg/dL Normal No Mar 11 .total informati 2016 4:09 [Mass/vol on in AM ume] in source Serum or data Plasma Urea 7 - 18 mg/dL High Mar 11 nitrogen alert NOTIFICAT 2017 4:09 [Mass/vol ION AM ume] in RESULT Serum or Plasma Calcium 8.5 - mg/dL Normal No Mar 11 [Mass/vol 10.1 informati 2017 4:09 ume] in on in AM Serum [...] Low No Mar 11 e renal informati 2016 4:09 clearance on in AM source predicted [...] Potassium 3.5 - 5.1 mmoL/L Normal No Mar 11 informati 2016 4:09 [Moles/vo on in AM lume] in source Serum or data Plasma Sodium 136 - 145 mmoL/L Normal No Mar 11 [Moles/vo informati 2016 4:09 lume] in on in AM Serum or source Plasma data Aspartate 15 - 37 U/L Normal No Mar 11 informati 2016 4:09 aminotran on in AM sferase source [Enzymati data c activity/ volume] in Serum or Plasma Alanine 12 - 78 U/L Normal No Mar 11 aminotran informati 2016 4:09 sferase [...] Lactate 0.4 - 2.0 mmol/L Normal No Mar 11 [Moles/vo informati 2016 [...] Basophils 0.1 - 2.0 % Normal No Mar 11 /100 informati 2017 4:09 leukocyte on in AM s in source Blood by data Automated count Eosinophi 0.0 - 0.4 K/mm3 Normal No Mar 11 ls informati 2016 4:09 [#/volume on in AM ] in source Blood by data Automated count Eosinophi 0.1 - % Normal No Mar 11 ls/100 12.0 informati 2016 4:09 [...] count Hematocri 42.0 - % Low No Mar 11 t [Volume 52.0 informati 2017 4:09 on in AM Fraction] source of Blood data Hemoglobi 14.1 - g/dL Low Mar 11 n 18.0 informati 2016 4:09 [Mass/vol on in AM ume] in source Blood data Lymphocyt 0.7 - 4.5 K/mm3 Low Mar 11 es informati 2016 4:09 [#/volume on in AM ] in source Unspecifi data ed specimen by Automated count Lymphocyt 10 - 50 % Low No Mar 11 es informati 2016 4:09 [#/volume on in AM ] in source Unspecifi data ed specimen by Automated count Erythrocy 27 - 31.2 pg Low Mar 11 te mean informati 2017 4:09 corpuscul on in AM ar source hemoglobi data n [Entitic mass] Erythrocy 31.8 - g/dl Low Mar 11 te mean 35.4 informati 2017 4:09 corpuscul on in AM ar source hemoglobi data n concentra tion [Mass/vol ume] by Automated count Erythrocy 82.2 - fl Low Mar 11 te mean 97.8 informati 2016 4:09 corpuscul on in AM ar volume source [Entitic data volume] by Automated count Monocytes 0.1 - 1.0 K/mm3 Normal No Mar 11 inform2016 4:09 [#/volume on in AM ] in source Blood by data Automated count Monocytes 1.7 - 9.3 % Normal Mar 11 /100 informati 2016 4:09 leukocyte on in AM s in source Blood by data Automated count Platelet 7.4 - fl Normal Mar 11 mean 10.4 informati 2016 4:09 [...] data fluid Erythrocy 11.5 - % Normal Mar 11 te 17.5 ati 2016 4:09 distribut on in AM ion width source [Entitic data volume] by Automated count Leukocyte 4.8 - K/MM3 Normal Mar 11 s 10.8 2016 4:09 [#/volume on in AM ] in source Blood data Comprehensive metabolic 2000 panel in Serum or Plasma Observa Value Referen Units Interpr Notes Date tion ce etation Range Albumin/G 1.1 - 1.8 No Low No Feb 19 lobulin informati inform2016 [Mass on in on in 12:40 PM ratio] in source source Serum or data data Plasma Albumin 3.4 - 5.0 gm/dL Low Feb 19 [Mass/vol informati 2016 ume] in [...] 18 mg/dL High Feb 19 nitrogen NOTIFICAT 2017 [Mass/vol ION 12:40 PM ume] in RESULT Serum or Plasma Calcium 8.5 - mg/dL Normal Feb 19 [Mass/vol 10.1 informati 2016 ume] [...] ML/MIN Normal No Feb 19 e renal informati 2017 clearance on in 12:40 PM source predicted [...] gm/dL Normal No Feb 19 [Mass/vol informati 2017 ume] in on in 12:40 PM Serum or source Plasma data Cardiac enzymes Observa Value Referen Units Interpr Notes Date tion ce etation Range Creatine 0 - 4.0 U/L Normal No Feb 6 kinase.MB inform2016 /Creatine on in 12:40 PM source kinase.to data weston [Ratio] in Serum or Plasma Creatine 0.0 - 3.6 ng/mL Normal No Feb 6 kinase.MB inform2016 on in 12:40 PM [Mass/vol source ume] in data Serum or Plasma Creatine 39 - 308 U/L Normal No Feb 19 kinase 2016 [Enzymati on in 12:40 PM c source activity/ data volume] in Serum or Plasma Troponin 0.00 - ng/mL Normal No Feb 6 I.cardiac 0.06 inform2016 on in 12:40 PM [Mass/vol source ume] in data Serum or Plasma Lactate [Moles/volume] in Blood Observa Value Referen Units Interpr Notes Date tion ce etation Range Lactate 0.4 - 2.0 mmol/L Normal No Feb 19 [Moles/vo inform2016 lume] in on in 12:40 PM Blood source data CBC W Auto Differential panel in Blood Observa Value Referen Units Interpr Notes Date tion ce etation Range Basophils 0 - 0.2 K/MM3 Normal No Feb 192016 [#/volume on in 12:40 PM ] in source Blood by data Automated count Basophils 0.1 - 2.0 % Normal No Feb 6 /100 2016 leukocyte on in 12:40 PM s in source Blood by data Automated count Eosinophi 0.0 - 0.4 K/mm3 Normal No Feb 19 ls 2016 [#/volume on in 12:40 PM ] in source Blood by data Automated count Eosinophi 0.1 - % Normal No Feb 19 ls/100 12.0 2016 leukocyte on in 12:40 PM s in source Blood by data Automated count Granulocy 1.3 - 8.0 K/mm3 Normal No Feb 6 [place] 2016 [#/volume on in 12:40 PM ] in source Blood by data Automated count Granulocy 37.0 - % High No Feb 6 [place]/100 80.0 inform2016 leukocyte on in 12:40 PM s in source Blood by data Automated count Hematocri 42.0 - % Low No Feb 19 t [Volume 52.0 2016 on in 12:40 [...] 9.3 % Normal No Feb 6 /100 2016 leukocyte on in 12:40 PM s in source Blood by data Automated count Platelet 7.4 - fl Normal No Feb 6 mean 10.4 2016 volume on in 12:40 [...] Erythrocy 11.5 - % Normal No Feb 6 te 17.5 2016 distribut on in 12:40 [...] 100 pg/mL High No Jan 27 tic informati 2016 4:50 peptide B on [...] Normal No Jan 27 e renal informati 2016 4:50 clearance on [...] 3.5 - 5.1 mmoL/L Normal No Jan 27 informati 2016 4:50 [Moles/vo on in AM lume] in source Serum or data Plasma Sodium 136 - 145 mmoL/L Normal No Jan 27 [Moles/vo informati 2016 4:50 lume] in on in AM Serum or source Plasma data Aspartate 15 - 37 U/L Normal No Jan 27 informati 2016 4:50 aminotran on in AM sferase source [...] 0.2 K/MM3 Normal No Jan 27 informati 2017 4:50 [#/volume on in AM ] in source Blood by data Automated count Basophils 0.1 - 2.0 % Normal No Oct 14 /100 informati 2016 4:50 leukocyte on in AM s in source Blood by data Automated count Eosinophi 0.0 - 0.4 K/mm3 Normal No Oct 14 ls informati 2016 4:50 [#/volume on in AM ] in source Blood by data Automated count Eosinophi 0.1 - % Normal No Jan 14 ls/100 12.0 informati 2016 4:50 leukocyte on in AM s in source Blood by data Automated count Granulocy 1.3 - 8.0 K/mm3 Normal No Jan 14 [place] informati 2017 4:50 [#/volume on in [...] Hemoglobi 14.1 - g/dL Low No Jan 14 n 18.0 informati 2016 4:50 [Mass/vol on in AM ume] in source Blood data Lymphocyt 0.7 - 4.5 K/mm3 Low No Jan 14 es informati 2017 4:50 [#/volume on in AM ] in source Unspecifi data ed specimen by Automated count Lymphocyt 10 - 50 % Low No Jan 14 es informati 2017 4:50 [#/volume on in AM ] in source Unspecifi data ed specimen by Automated count Erythrocy 27 - 31.2 pg Low No Jan 14 te mean informati 2017 4:50 corpuscul on in AM ar source hemoglobi data n [Entitic mass] Erythrocy 31.8 - g/dl Low No Jan 14 te mean 35.4 informati 2017 4:50 corpuscul on in AM ar source [...] fl Normal No Jan 27 mean 10.4 inform2016 4:50 volume on in AM [Entitic source volume] data in Blood by Automated count Platelets 142 - 424 K/mm3 Normal No Jan 27 inform2016 4:50 [#/volume on in AM ] [...] 100 pg/mL High No Jan 05 tic 2017 peptide B on in 11:40 AM [...] 145 mmoL/L Normal No Sep 22 [Moles/vo 2016 lume] in on in 11:40 AM Serum or source Plasma data Aspartate 15 - 37 U/L Normal No Sep 22 2016 aminotran on in 11:40 AM sferase source [Enzymati data c activity/ volume] in Serum or Plasma Alanine 12 - 78 U/L Normal No Sep aminotran 2016 sferase on in 11:40 AM [Enzymati source c data activity/ volume] in Serum or Plasma Protein 6.4 - 8.2 gm/dL Normal No Sep [Mass/vol inform2016 ume] in on in 11:40 AM Serum or source Plasma data CBC W Auto Differential panel in Blood Observa Value Referen Units Interpr Notes Date tion ce etation Range Basophils 0 - 0.2 K/MM3 Normal No Sep 22 2016 [#/volume on in 11:40 AM ] in source Blood by data Automated count Basophils 0.1 - 2.0 % Normal No Sep 22 /100 inform2016 leukocyte on in 11:40 AM s in source Blood by data Automated count Eosinophi 0.0 - 0.4 K/mm3 Normal No Sep 22 ls 2016 [#/volume on in 11:40 AM ] in source Blood by data Automated count Eosinophi 0.1 - % Normal No Sep 22 ls/100 12.0 2016 leukocyte on in 11:40 AM s [...] Hematocri 42.0 - % Low No Sep t [Volume 52.0 2016 on in 11:40 AM Fraction] source of Blood data Hemoglobi 14.1 - g/dL Low No Sep 22 n 18.0 2016 [Mass/vol on in 11:40 AM ume] in source Blood data Lymphocyt 0.7 - 4.5 K/mm3 Low No Sep 22 es inform2016 [#/volume on in 11:40 AM ] in source Unspecifi data ed specimen by Automated count Lymphocyt 10 - 50 % Low No Sep 22 es inform 2017 [#/volume on in 11:40 AM ] in source Unspecifi data ed specimen by Automated count Erythrocy 27 - 31.2 pg Low No Sep 22 te mean inform2016 corpuscul on in 11:40 AM ar source hemoglobi data n [Entitic mass] Erythrocy 31.8 - g/dl Low No Sep 22 te mean 35.4 inform 2017 corpuscul on in 11:40 AM ar [...] Normal No Sep 22 mean 10.4 informati 2016 volume on in 11:40 AM [Entitic source [...] 50 % Low No Sep 22 informa 2017 tion in 11:40 source AM data Monocytes 2 - 9 % Low No Sep 22 /100 informati 2017 leukocyte on in 11:40 AM s in source Blood by data Automated count Platele NORMAL No No No No Sep 22 ts informa informa informa informa 2017 [Presen tion in tion in tion in tion in 11:40 ce] in source source source source AM Blood data data data data by Light microsc opy Neutrophi 42 - 76 % High No Sep ls informati 2017 [#/volume on in 11:40 [...] mg/dl High No Oct 02 [Mass/vol informati 2016 6:25 ume] in on in AM Capillary source blood by data Glucomete r Glucose [Mass/volume] in Capillary blood by Glucometer Observa Value Referen Units Interpr Notes Date ti ce etation Range Glucose 70 - 110 mg/dl High No Oct 01 [Mass/vol informati 2017 9:31 ume] in on [...] No Sep 17 [Mass/vol alert informati 2017 4:40 ume] [...] Interpr Notes Date tion ce etation Range Urea 7 - 18 mg/dL High No Fredy 17 nitrogen informati 2017 5:55 [Mass/vol on [...] ML/MIN No REFERENCE Sep 30 informati RANGE: 2016 5:55 glomerula on in >60 AM r [...] Normal No Sep 30 ls/100 12.0 informati 2017 5:55 leukocyte on in AM s in source Blood by data Automated count Granulocy 1.3 - 8.0 K/mm3 Normal No Sep 17 [place] informati 2016 5:55 [#/volume on in AM ] in source Blood by data Automated count Granulocy 37.0 - % High No Sep 30 [place]/100 80.0 informati 2017 5:55 leukocyte on in AM [...] Leukocyte 4.8 - K/MM3 No No Sep 30 s 10.8 informati informati 2017 5:55 [#/volume on in on in AM ] in source source Blood data data Glucose [Mass/volume] in Capillary blood by Glucometer Observa Value Referen Units Interpr Notes Date tion ce etation Range Glucose 70 - 110 mg/dl High No Sep 16 [Mass/vol alert informati 2017 9:40 ume] in on in PM Capillary source blood by data Glucomete r Glucose [Mass/volume] in Capillary blood by Glucometer Observa Value Referen Units Interpr Notes Date tion ce etation Range Glucose 70 - 110 mg/dl High No Sep 16 [Mass/vol alert informati 2017 4:14 ume] in on in PM Capillary source blood by data Glucomete r Glucose [Mass/volume] in Capillary blood by Glucometer Observa Value Referen Units Interpr Notes Date tion ce etation Range Glucose 70 - 110 mg/dl High No Sep 16 [Mass/vol alert informati 2017 ume] in on in 11:51 AM Capillary source blood by data Glucomete r Glucose [Mass/volume] in Capillary blood by Glucometer Observa Value Referen Units Interpr Notes Date tion ce etation Range Glucose 70 - 110 mg/dl High No Sep 16 [Mass/vol informati 2017 6:25 ume] in on in AM Capillary source blood by data Glucomete r Lactate [Moles/volume] in Blood Observa Value Referen Units Interpr Notes Date ti ce etation Range Lactate 0.4 - 2.0 mmol/L Normal No Sep 16 [Moles/vo informati 2017 lume] in on in Blood source data Natriutietic peptide B [Mass/volume] in Serum or Plasma Observa Value Referen Units Interpr Notes Date tion ce etation Range Natriutie 0 - 100 pg/mL High No Sep 15 tic informati 2017 peptide B on in 11:40 PM source [Mass/vol data ume] in Serum or Plasma Cardiac enzymes Observa Value Referen Units Interpr Notes Date tion ce etation Range Creatine 0 - 4.0 U/L Normal No Sep 15 kinase.MB inform2016 /Creatine on in 11:40 PM source kinase.to data [place] [Ratio] in Serum or Plasma Creatine 0.0 - 3.6 ng/mL Normal No Sep 28 kinase.MB informati 2017 on in 11:40 PM [Mass/vol source ume] in data Serum or Plasma Creatine 39 - 308 U/L Normal No Sep 28 kinase informati 2017 [Enzymati on in 11:40 [...] 3.4 - 5.0 gm/dL Low No Sep 28 [Mass/vol informati 2016 ume] [...] data Carbon 21.0 - mmoL/L High No Fredy 15 dioxide, 32.0 informati 2017 total on in 11:40 PM [Moles/vo source lume] in data Serum or Plasma Creatinin 0.70 - mg/dL High No Sep 28 e 1.30 inform 2017 [Mass/vol on in 11:40 PM ume] in source Serum or data Plasma Creatinin 50 - 200 ML/MIN Normal No Sep 28 e renal inform 2017 clearance on in 11:40 PM source [...] 74 - 106 mg/dL High No Sep 28 [Mass/vol informati 2016 [...] 0 - 0.2 K/MM3 Normal No Sep 28 inform2016 [#/volume on in 11:40 PM ] in source Blood by data Automated count Basophils 0.1 - 2.0 % Normal No Sep 15 /100 2016 leukocyte on in 11:40 PM s in source Blood by data Automated count Eosinophi 0.0 - 0.4 K/mm3 Normal No Sep 15 ls inform2016 [#/volume on in 11:40 PM ] in source Blood by data Automated count Eosinophi 0.1 - % Normal No Sep 15 ls/100 12.0 inform2016 leukocyte on in 11:40 PM s in source Blood by data Automated count Granulocy 1.3 - 8.0 K/mm3 Normal No Sep 15 [place] inform2016 [#/volume on [...] g/dL Low No Sep 28 n 18.0 inform2016 [Mass/vol on in 11:40 [...] 4.6 - 6.2 M/mm3 Low No Sep 28 [place] inform2016 [#/volume on [...] 100 pg/mL High No September 05 tic ati 2016 4:00 peptide B on in PM [...] 3.5 - 5.1 mmoL/L Normal No September 05 informati 2016 4:00 [Moles/vo on in PM lume] in source Serum or data Plasma Sodium 136 - 145 mmoL/L Normal No September 05 [Moles/vo informati 2016 4:00 lume] in on in PM Serum or source Plasma data Aspartate 15 - 37 U/L Low No September 05 informati 2016 4:00 aminotran on in PM sferase source [...] - 2.0 % Normal No September 05 / informati [...] Low No September 05 n 18.0 informati 2016 4:00 [...] Automated count Leukocyte 4.8 - K/MM3 Normal September 05 s 10.8 informati 2016 4:00 [...] Automated count Eosinophi 0.1 - % Normal August 30 ls/100 12.0 informati 2016 8:55 [...] data Hemoglobi 14.1 - g/dL Low No August 30 n 18.0 informati 2016 8:55 [Mass/vol on in AM ume] in source Blood data Lymphocyt 0.7 - 4.5 K/mm3 Low No August 30 es informati 2016 8:55 [#/volume on in AM ] in source Unspecifi data ed specimen by Automated count Lymphocyt 10 - 50 % Low No August 30 es informati 2016 8:55 [#/volume on in AM ] in source Unspecifi data ed specimen by Automated count Erythrocy 27 - 31.2 pg Low No August 30 te mean informati 2016 8:55 corpuscul on in AM ar source hemoglobi data n [Entitic mass] Erythrocy 31.8 - g/dl Low No August 30 te mean 35.4 informati 2016 8:55 corpuscul on in AM ar source hemoglobi data n concentra tion [Mass/vol ume] by Automated count Erythrocy 82.2 - fl Low No August 30 te mean 97.8 informati 2016 8:55 corpuscul on in AM ar volume source [Entitic data volume] by Automated count Monocytes 0.1 - 1.0 K/mm3 Normal No August 30 inform2016 8:55 [#/volume on in AM ] in [...] 142 - 424 K/mm3 Normal No August 302016 8:55 [#/volume on [...] INDICAT data data data \Signed ION:Shirley : [facility] [employer]\. TECHNIQ br\Sign UE:A [...] Interpr Notes Date tion ce etation Range Sodium 139 136 - mmol/L No Nov 19 Level 148 informa informa [...] Albumin 3.2 3.4 - g/dL Low No Nov 6 Level 5.0 2013 tion in 2:22 PM source data BUN 34 7 - 22 mg/dL High No Aug 6 2013 tion in 2:22 PM source data Creatin 1.8 0.8 - mg/dL High No Aug 6 ine 1.5 2013 tion in 2:22 PM source data Bili 0.29 0.50 - mg/dL Low No Aug 6 Total 1.50 2013 tion in 2:22 PM source data Total 6.9 6.4 - g/dL No No Nov 6 Protein 8.2 inform2013 tion in tion in 2:22 PM source source data data Alk 142 50 - unit/L High No Nov 19 Phos 136 2013 tion in 2:22 PM source data AST 23 22 - 37 unit/L No No Aug 6 informa 2013 tion in tion in 2:22 PM source source data data ALT 26 12 - 78 unit/L No No Aug 6 inform2013 tion in tion in 2:22 PM source source data data Calcium 8.2 8.7 - mg/dL Low No Aug 6 10.5 2013 tion in 2:22 PM source data Glyhm Observa Value Referen Units Interpr Notes Date tion ce etation Range Hemoglo 10.5 4.2 - % High No Nov 6 bin 6.3 2013 A1c tion in 1:47 PM source data Free T4 Observa Value Referen Units Interpr Notes Date tion ce etation Range T4, 1.15 0.78 - ng/dL No No Aug 6 Free 2.19 inform2013 tion in tion in 1:40 PM source source data data CBC Observa Value Referen Units Interpr Notes Date tion ce etation Range WBC 8.77 4.50 - x10-3/m No No Aug 6 11.00 cL inform2013 tion in tion in 12:51 source source PM data data RBC 4.21 4.60 - mcL Low No Aug 6 6.20 inform2013 tion in 12:51 source PM data Hgb 10.3 13.5 - g/dL Low No Aug 6 18.0 2013 tion in 12:51 source PM data Hct 34.4 42.0 - % Low No Aug 6 52.0 informa 2013 tion in 12:51 source PM data MCV 81.7 80.0 - fL No No Aug 6 94.0 informa informa 2014 tion in tion in [...] 2013 tion in 12:51 source PM data [place] 8 2 - 9 % No No [...] Absolut 0.33 0.15 - x10-3/m No No Nov 6 e 0.60 cL informa informa 2014 Eosinop tion in tion in 12:51 hil source source PM Count data data Absolut 0.02 0.02 - x10-3/m No No Nov 6 e 0.05 cL informa informa 2014 Basophi tion in tion in 12:51 l Count source source PM data data
--- OUTSIDE RECORDS SUMMARY | 2017-03-14 16:22 | External Medical Summary Rpt ---
Author Author [employer], [employer] Organization [employer] Address Unknown Phone Unavailable Payers Section Payer Plan Name Group ID Member ID Coverage Coverage Start End Date Date E04^ [id number] No No MEDICAL MEDICAL 3 informati informati [...] INDICAT data data data \Signed ION:Shirley : [facility] , [facility] [employer]\. TECHNIQ br\Sign UE:A [...] 2013 tion in 12:51 source PM data [place] 8 2 - 9 % No No [...]
[2017-03-14 17:07] VITALS: BP 151/62
--- OUTSIDE RECORDS SUMMARY | 2017-03-14 17:14 | External Medical Summary Rpt | CCD ---
Author Author , NOREEN Organization NOREEN Address Unknown Phone [email or web address] Care Team Providers Care Header Up Name Role Phone [facility], [facility] Unavailable Unavailable [facility] Unavailable Unavailable [facility], [facility] Unavailable Unavailable RESPONSE, [facility] RHODA BACA MD, PSC, Unavailable Unavailable RHODA BACA MD, PSC [facility] Unavailable [place], [facility] [place] KENTON ARMIJO, Unavailable Unavailable KENTON ARMIJO MD, Unavailable Unavailable [facility], ROSY POWELL MD, [facility] MASSIMO MARISCAL Unavailable Unavailable M, MASSIMO MARISCAL, Unavailable Unavailable M.Marko.P.S.CIrena, LES MARCH M.D.P.S.CIrena [facility], Unavailable Unavailable [facility] BHSIMIN ROBERTINDER S, Unavailable Unavailable BHAGRATH, KSENIA S [facility] Unavailable Unavailable ON RED, [facility] ON [facility] Un[facility] Unavailable SERVICE, [facility] Unavailable Unavailable SERVICE, [facility] Unavailable Unavailable SERVICE[facility] Unavailable Unavailable CONSULTANTS O, [facility], Unavailable Unavailable [facility], Unavailable Unavailable [facility] Unavailable Unavailable [facility] ALESSANDRA-ERIC, Unavailable Unavailable JERMAINEYANG ARMENDARIZ, JERMAINEMARCELLO PUTNAM KOKO, Unavailable Unavailable INDY K[facility] Unavailable Unavailable CENTER, [facility] KEY, [place], Unavailable Unavailable KEY, [place] [facility] Unavailable Unavailable KIDNEY CARE, [facility] Unavailable Unavailable [facility]SC, [facility], Unavailable Unavailable [facility] [employer] [facility] Unavailable Unavailable INC, [facility] [employer] [facility] FALLIS DIANA, FALLIS Unavailable Unavailable DIANA [facility] Unavailable Unavailable #471, [facility] MORRO ZHENG, Unavailable Unavailable MORRO ZHENG GUNYEN ISABEL K, Unavailable Unavailable GUNFATMATAMALLA, ISABEL K [facility] Unavailable Unavailable PHARMACY, [facility], Unavailable Unavailable [facility] Unavailable Unavailable INC, [facility] Unavailable [facility]available HOSPITAL, [facility] Unavailable Unavailable HOSPITAL P, [facility] P [facility] Unavailable [facility]available MEDICAL CE, [facility] Unavailable Unavailable MEDICAL CENT, [facility] Unavailable Unavailable INC, [facility], Unavailable Unavailable [facility] Unavailable Unavailable PLLC, [facility], Unavailable Unavailable HOSPICE [facility] Unavailable Unavailable PHYSICIANS, [facility] RIAN, VANDANA Cox, RIAN, Unavailable Unavailable VANDANA [facility] Unavailable Unavailable [place], [facility] [place] [facility], Unavailable Unavailable [id number], Unavailable Unavailable [id number] Unavailable Unavailable PHARMACY, [facility] Un[facility] Unavailable [facility], [facility] & Unavailable Unavailable VASCULAR PH, [facility] Unavailable Unavailable [facility]ING [facility], [facility] # Unavailable Unavailable [id number], [facility] # [id number] [facility] [id number] # Unavailable Unavailable 7174, [facility] [id number] # [id number] [place] [facility] Unavailable Unavailable [facility]ANC[facility], [facility], [facility] Unavailable Unavailable COMMUNITY ACT, [facility] LUIS E HAM, LUIS E HAM Unavailable Unavailable [facility] Unavailable Unavailable ASSOCIAT, [facility] Un[facility] Unavailable SURGERY, [facility] Unavailable Unavailable MEDICAL, [facility] Unavailable Unavailable LLC, [facility] Unavailable Unavailable PHARMACY, [facility], Unavailable Unavailable [facility]available Un[facility]ARMACY, [facility] Unavailable Unavailable AMBULANCE SE, [facility] SE [facility], Unavailable Unavailable PLLC, [facility] KRAFT ANTONINA, KRAFT Unavailable Unavailable ANTONINA [facility], Unavailable Unavailable [facility] PAWSAT, PAWSAT Unavailable Unavailable PAWSAT MAR, PAWSAT Unavailable Unavailable MAR HURLEYRICHARD FERRERA W, Unavailable Unavailable RICHARD HURLEY W PEASI, PEASI Unavailable Unavailable [facility] Unavailable Unavailable PRACTICE CL, [facility]ACT[facility] CL [facility] Unavailable Unavailable [facility], [facility] Unavailable Unavailable [facility] INC, [facility], Unavailable Unavailable [facility] Unavailable Unavailable SERVICE, [facility] PROVID[facility] Unavailable Unavailable SERVICES IN, [facility] Unavailable Unavailable [facility], [facility] Unavailable Unavailable [id number] # [id number], [facility] [id number] # [id number] [facility] Unavailable Unavailable HEALTH CARE, [facility], Unavailable Unavailable [facility] KETTY BROTHERS, ZEV, Unavailable Unavailable KETTY Carcamo [facility] Unavailable Unavailable EQUIPME, [facility], Unavailable Unavailable [facility]E [facility], Unavailable Unavailable ZE BLACK[facility] Unavailable Unavailable HOSPITALS, [facility], Unavailable Unavailable [facility], Unavailable Unavailable [facility] # Unavailable Unavailable [id number], [facility] # [id number] [facility] Unavailable Unavailable AGENCY, [facility] ZE MAN, Unavailable Unavailable ZE MAN WILLIAM Unavailable Unavailable ALEXANDREA Clemente WILLIAM H ZAMBOS, PHILIP N, Unavailable Unavailable MICHAEL DE LA ROSA Purpose Continuity of Care Document - 10-31-2006 through 2016 Problems Code Diagnosis DOS Provider Status I129 HYPERTENSIV 02-19-2017 CORAL Roberts CKD PHYSICIANS, W/STAGE 1-4 [facility] CKD OR UNS CKD M069 RHEUMATOID 02-19-2017 [facility] ARTHRITIS [facility] UNSPECIFIED SERVICE N189 CHRONIC 02-19-2017 [facility] KIDNEY PHYSICIANS, DISEASE [facility] UNSPECIFIED R0602 SHORTNESS 02-19-2017 COR[facility] OF BREATH PHYSICIANS, [facility] R0689 OTHER 02-19-2017 [facility] ABNORMALITI COUNTY ES OF AMBULANCE BREATHING SE R600 LOCALIZED 02-19-2017 [place] AMB[facility] SE Z7409 OTHER 02-19-2017 [facility] REDUCED AMBULANCE MOBILITY SERVICE I10 ESSENTIAL 02-15-2017 [facility] HYPERTENSIO ASSOCIATES N N183 CHRONIC 02-15-2017 [facility] DISEASE [facility]OCIATES STAGE 3 MODERATE N179 ACUTE 02-12-2017 [facility] FAILURE [facility] UNSPECIFIED I28766 ULCERATIVE 01-29-2017 [place] [facility] LEFT LOWER [...] INC WITHOUT ESOPHAGITIS R079 CHEST PAIN 01-27-2017 [place] [facility]PEC[facility]IED [facility] IM[facility]ING ASS 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 TACHYCARDIA HOSPITALS I5022 CHRONIC 01-22-2017 SYSTOLIC [facility] CONGESTIVE HOSPITALS HEART FAILURE I509 HEART 01-22-2017 [facility] FAILURE HEALTH UNSPECIFIED ASSOCIATES R0609 OTHER FORMS 01-22-2017 [facility] DYSPNEA [facility]ALTHCARE HOSPITALS S44286 PRESENCE 01-22-2017 AUTO [facility] IMPLANTABLE HOSPITALS CARDIAC DEFIBRILLAT [place] R918 OTHER 01-19-2017 [facility] NONSPECIFIC [facility] ABNORMAL FINDING OF LUNG FIELD E785 HYPERLIPIDE 01-18-2017 [facility] UNSPECIFIED ASSOCIATES G894 CHRONIC 01-14-2017 [place] PA[place] [facility] SYNDROME HEALTH CARE N19 UNSPECIFIED 01-14-2017 [place] KIDNEY [facility] FAILURE HEALTH CARE Z950 PRESENCE OF 01-14-2017 [facility] Z955 PRESENCE OF 01-11-2017 [facility]ALTH[facility]ARE ANGIOPLASTY HOSPITALS IMPLANT & GRAFT M6281 MUSCLE 01-05-2017 [facility] WEAKNESS AMBULANCE GENERALIZED SERVICE Z12215 OTHER LONG 01-05-2017 [facility] P DRUG THERAPY Z882 ALLERGY 01-05-2017 [facility] STATUS TO MEM [facility]OS[facility] SULFONAMIDE INC S STATUS R609 EDEMA 01-04-2017 [facility] UNSPECIFIED HEALTHCARE HOSPITALS E139 OTH SPEC 01-01-[address] [facility] DIABETES PHYSICIANS MELLITUS GROUP W/O COMPLICATIO NS E875 HYPERKALEMI 01-01-[address] [facility] A PHYSICIANS GROUP I5020 UNSPECIFIED 01-01-[address] 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 I50.9 Heart [...] of 12-20-2016 cardiac pacemaker N390 URINARY 12-16-2016 [facility] SITE NOT SPECIFIED R001 BRADYCARDIA 12-14-2016 [place] [facility] UNSPECIFIED FOUNDATION R69 ILLNESS 12-14-2016 [place] UNSPECIFIED [facility] COMMUNITY ACT B356 TINEA 12-13-2016 [facility] CRURIS [...] UNSPECIFIED R339 RETENTION 11-21-2016 [facility] OF URINE [facility] UNSPECIFIED HOSPITAL P R338 OTHER 11-14-2016 QUALITY RETENTION PROVIDER OF URINE SERVICES IN Z80145 PRESSURE 10-14-2016 [facility]ALITY ULCER OF PROVIDER RIGHT HEEL SERVICES IN UNSTAGEABLE I13852 NON-PRSS 10-14-2016 QUALITY CHR ULCR PROVIDER UNS PART SERVICES IN UNS LOW LEG UNS SEV J189 PNEUMONIA 09-29-[address] [facility] UNSPECIFIED PHYSICIANS ORGANISM GROUP N289 DISORDER OF 09-29-[address] [facility] KIDNEY AND PHYSICIANS URETER GROUP UNSPECIFIED R05 COUGH 09-28-2016 [facility] AMBULANCE SE E11.621 Type 2 09-13-2016 [...] [facility] HEART FAILURE R279 UNSPECIFIED 09-08-2016 [facility] LACK OF MEDICAL COORDINATIO RESPONSE N I130 [...] (congestive ) heart failure I214 NON-ST 09-06-2016 [facility] INFARCTION I4581 LONG QT 09-06-2016 [place] [facility] SYNDROME SERV FOUNDATION J9691 RESPIRATORY 09-06-2016 [place] [facility] FAILURE SERV UNSPECIFIED FOUNDATION WITH HYPOXIA R9431 ABNORMAL 09-06-2016 [place] MEDICAL ELECTROCARD SERV IOGRAM FOUNDATION E1165 TYPE 2 09-05-2016 [facility] P WITH HYPERGLYCEM IA I63192 PAIN IN 09-05-2016 [place] RIGHT LEG MEDICAL IMAGING ASS L15257 PAIN IN 09-05-2016 [place] LEFT LEG MEDICAL IMAGING ASS M7989 OTHER 09-05-2016 [place] SPECIFIED MEDICAL SOFT TISSUE IMAGING ASS DISORDERS R269 UNSPECIFIED 09-05-2016 [facility] ABNORMALITI AMBULANCE ES OF GAIT SE AND MOBILITY R531 WEAKNESS 09-05-2016 [facility] AMBULANCE SE Z8679 PERSONAL 09-05-2016 [facility] HISTORY OTH PHYSICIANS, DISEASES PLLC CIRCULATORY SYSTEM Z7401 BED 08-30-2016 [facility] AMBULANCE STATUS SERVICE E109 TYPE 1 08-14-2016 [facility] DIABETES HEALTH MELLITUS ASSOCIATES WITHOUT COMPLICATIO NS L0390 CELLULITIS 08-14-2016 [facility] UNSPECIFIED HEALTH ASSOCIATES M869 OSTEOMYELIT 08-11-2016 [facility] IS MOBILE XRAY UNSPECIFIED SERVICE R0989 OTH SPEC SX 07-20-2016 QUALITY & SIGNS MOBILE XRAY INVLV THE SERVICE CIRC & RESP SYS E1151 TYPE 2 DM 05-11-2016 [facility] W/DIAB PERIPH 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 B50708 PRESSURE 05-11-2016 [facility] ULCER OF RIGHT ANKLE STAGE 2 X47699 PRESSURE 05-11-2016 [facility] ULCER OF LEFT ANKLE UNSTAGEABLE M1990 UNSPECIFIED 05-06-2016 [facility] AMBULANCE OSTEOARTHRI SERVICE TIS UNSPECIFIED SITE R0789 OTHER CHEST 05-06-2016 [facility] PAIN PHYSICIANS, [facility] G07077 CELLULITIS 04-25-2016 PA[facility] OF RIGHT LOWER LIMB M33034 PRESSURE 04-25-2016 [facility] ULCER OF RIGHT HEEL STAGE 2 E559 VITAMIN D 04-24-2016 [facility] UNSPECIFIED ASSOCIATES L089 LOCAL INF 04-18-2016 [facility] THE SKIN & HEALTH SUBCUTANEOU ASSOCIATES S TISSUE UNS R319 HEMATURIA 04-18-2016 [facility] P P25620 UNSPECIFIED 04-17-2016 [facility] RIGHT LOWER EYELID E22606R UNSPECIFIED 03-29-2016 [facility] OPEN WOUND [facility] LOWER ASSOCIATES LEG INITIAL ENC X92015 PAIN IN 03-20-2016 [facility] LEFT KNEE MEM [facility] INC M179 OSTEOARTHRI 02-22-2016 [facility] TIS OF KNEE MEM HOSP INC UNSPECIFIED N4889 OTHER 02-18-2016 [facility] P OF PENIS N489 DISORDER OF 02-18-2016 [facility] PENIS [facility] UNSPECIFIED AMBULANCE SE R3989 OTH 02-18-2016 [facility] SYMPTOMS & COUNTY SIGNS AMBULANCE INVOLVING SE THE SYSTEM R52 PAIN 02-18-2016 [facility] UNSPECIFIED [facility] AMBULANCE SE A562WHR UNS COMP 02-18-2016 [facility] PROSTH [facility] DEVICE IMPL AMBULANCE & GRAFT SE INIT ENC R1084 GENERALIZED 02-13-2016 [facility] ABDOMINAL EMERGENCY PAIN AMBULAN R1930 ABDOMINAL 02-13-2016 [facility] RIGIDITY EMERGENCY UNSPECIFIED AMBULAN SITE R5381 OTHER 02-13-2016 [facility] [place] AMBULANCE SERVICE Z466 ENCOUNTER 02-13-2016 CORAL FITTING AND PHYSICIANS, ADJUSTMENT [facility] URINARY DEVICE E118 TYPE 2 02-04-2016 [facility] DIABETES [facility]OS[facility] MELLITUS INC W/UNS COMPLICATIO NS Z539 PROCEDURE & 02-04-2016 [facility] TREATMENT [facility]OS[facility] NOT CARRIED INC OUT UNS REASON M169 OSTEOARTHRI 01-10-2016 SAMY GARBER OF HIP , PSC UNSPECIFIED W66384 PAIN IN 01-10-2016 [facility] UNSPECIFIED MEM HOSP HIP INC A18428 PAIN IN 01-10-2016 [facility] UNSPECIFIED MEM HOSP KNEE INC E878 OTHER D/O 12-27-2015 [facility] ELECTROLYTE ASSOCIATES AND FLUID BALANCE NEC U05245 OTHER 12-17-2015 [facility] SPECIFIED [facility]OSP RHEUMATOID INC ARTHRITIS LEFT HIP M1612 UNILATERAL 12-17-2015 [facility] PRIMARY [facility] OSTEOARTHRI INC TIS LEFT HIP V97096 PAIN IN 12-07-2015 [facility] LEFT THIGH MEM HOS[facility] INC I54014 PAIN IN 12-07-2015 [facility] LEFT LOWER MEM [facility]OS[facility] LEG INC E45245 PAIN IN 12-06-2015 [facility] LEFT HIP MEM HOS[facility] INC B32907 NON-PRSS 11-24-[address] [facility] CHRN ULCER PHYSICIANS SKIN OTH GROUP SITES UNS SEVERITY O10722 TYPE 2 11-16-2015 [place] D[facility]NA DIABETES MELLITUS WITH FOOT ULCER M2570 OSTEOPHYTE 11-16-2015 [place] [facility] UNSPECIFIED JOINT J01178 PAIN IN 10-19-2015 [place] [facility] RIGHT FOOT D509 IRON 09-29-2015 [facility] HEALTH ANEMIA ASSOCIATES UNSPECIFIED M94449 COMBINED 08-24-2015 [place] [facility]-RELATED INSTITUTE CATARACT LEFT EYE H269 UNSPECIFIED 08-24-2015 [facility] CATARACT MEM [facility] INC G88719 COMBINED 07-27-2015 [place] [facility]-RELATED INSTITUTE CATARACT RIGHT EYE E46 UNSPECIFIED 2015 [facility] PROTEIN-EVGENY ASSOCIATES ORIE MALNUTRITIO N B23451 COMBINED 06-22-2015 [place] [facility]-RELATED INSTITUTE CATARACT BILATERAL H538 OTHER 06-22-2015 [place] VISUAL EYE DISTURBANCE INSTITUTE S N186 END STAGE 05-24-2015 [facility] RENAL HEALTH DISEASE ASSOCIATES 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 [facility] INC CY CHRONIC PERIPHERAL I071 RHEUMATIC 05-11-2015 [place] MEDICAL TRICUSPID SERV INSUFFICIEN FOUNDATION CY 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 05-11-2015 [place] MEDICAL C MITRAL SERV VALVE FOUNDATION INSUFFICIEN CY Z0189 ENCOUNTER 05-06-2015 [facility] OTHER AMB SERVICE SPECIFIED SPECIAL EXAMINATION S E1136 TYPE 2 04-29-2015 [place] [facility] MELLITUS CENTER WITH DIABETIC CATARACT H2513 AGE-RELATED 04-29-2015 [place] NUCLEAR [facility]ISION CATARACT CENTER BILATERAL X14441 CATARACT 04-29-2015 [facility] SECONDARY TO OCULAR DISORDERS UNS EYE I5032 CHRONIC 04-29-2015 [facility] DIASTOLIC CONGESTIVE HEART FAILURE R5382 CHRONIC 04-29-2015 [facility] FATIGUE UNSPECIFIED 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 M7731 CALCANEAL 03-30-2015 [place] [facility] RIGHT MEDICAL FOOT IMAGING ASS M059 RA WITH 03-23-2015 [facility] RHEUMATOID EMERGENCY FACTOR AMBULAN UNSPECIFIED W92984 PAIN IN 03-23-2015 [facility] UNSPECIFIED EMERGENCY LIMB AMBULAN B88405Y LACERATION 03-23-2015 [facility] W/FOREIGN EMERGENCY BODY UNS AMBULAN FOOT INITIAL ENC Z7901 RESIDENTIAL 03-16-2015 [facility] CURRENT USE HEALTH OF ASSOCIATES ANTICOAGULA NTS G8929 OTHER 02-25-2015 [facility] CHRONIC EMERGENCY PAIN AMBULAN J9690 RESP FAIL 02-25-2015 [facility] UNS UNS EMERGENCY WHETHER AMBULAN W/HYPOXIA/H YPERCAPNIA E975 02-24-2015 [facility] A419 SEPSIS 02-18-2015 [facility] UNSPECIFIED HEALTH ORGANISM ASSOCIATES E0590 THYROTOXICO 02-18-2015 [facility] SIS UNS W/O HEALTH THYROTOXIC ASSOCIATES CRISIS/STOR M R350 FREQUENCY 02-18-2015 [facility] MICTURITION ASSOCIATES R7989 OTHER SPEC 02-18-2015 [facility] ABNORMAL HEALTH FINDINGS ASSOCIATES BLOOD CHEMISTRY R4182 ALTERED 01-22-2015 [facility] MENTAL EMERGENCY STATUS AMBULAN UNSPECIFIED I270 PRIMARY 01-21-2015 [facility] PULMONARY LAR HYPERTENSIO CONSULTANTS N O V49727 ASHD GRAND TRAVERSE 01-19-2015 [facility] COR ARTREY LAR W/UNS CONSULTANTS ANGINA O PECTORIS W27172H NONDSPL FX 01-19-2015 [facility] 2ND GENERAL METATARSAL SURGERY RT FT INIT ENC CLOS FX E1365 OTH SPEC 01-16-2015 [facility] DIABETES LAR MELLITUS CONSULTANTS WITH O HYPERGLYCEM IA I272 OTHER 01-15-2015 [facility] SECONDARY REGIONAL PULMONARY MEDICAL HYPERTENSIO N J811 CHRONIC 01-15-[facility] PULMON[facility] RADIOLOGY EDEMA ASSOCIAT J9610 CHRONIC 01-15-2015 [facility] RESPIRATORY REGIONAL FAIL UNS MEDICAL HYPOXIA/HYP ERCAPNIA C86051 NON-PRSS 01-15-[facility] CHRN ULCR RADIOLOGY OTH PART LT ASSOCIAT FOOT UNS SEVERITY O50868 NON-PRSS 01-15-2015 [facility] CHR ULCR REGIONAL UNS PART LT MEDICAL LOW LEG UNS SEV D04011D DISPLACED 01-15-[facility] FX 2ND RADIOLOGY METATARSAL ASSOCIAT RT FT INIT CLOS FX I5040 UNSPECIFIED 01-14-2015 [facility] SYSTOLIC & HOSPITAL DIASTOLIC CHF J90 PLEURAL 01-14-2015 [place] EFFUSION MEDICAL NOT IMAGING ASS ELSEWHERE CLASSIFIED M0540 RHEUMATOID 01-14-2015 [facility] WITH RA HOSPITAL UNSPECIFIED SITE R590 LOCALIZED 01-14-2015 [place] ENLARGED MEDICAL LYMPH NODES IMAGING ASS 26354 COR 01-13-2015 [facility] ATHEROSLERO LAR UNSPEC CONSULTANTS TYPE VESSEL O GRAND TRAVERSE/YOVANNY T 4258 CARDIOMYOPA 01-13-2015 [facility] THY OTHER LAR DISEASES CONSULTANTS CLASSIFIED O ELSW 4280 CONGESTIVE 01-13-2015 [facility] HEART LAR FAILURE [place] O 17739 SHORTNESS 01-13-2015 [facility] OF BREATH [place] CONSULTANT[place] O 63067 DIAB W/O 01-12-2015 [facility] NOT [facility] P STATED UNCNTRL 2724 OTHER AND 01-12-2015 [facility] UNSPECIFIED [facility] HYPERLIPIDE NICHOLAS 3384 CHRONIC 01-12-2015 [facility] PAIN [facility] SYNDROME 4019 UNSPECIFIED 01-12-2015 [facility] P N 4254 OTHER 01-12-2015 [facility] CARDIOMYOPA HOSPITAL P MARNI 4259 UNSPECIFIED 01-12-2015 [facility] SECONDARY [facility] CARDIOMYOPA THY 12058 UNSPECIFIED 01-12-2015 [facility] SYSTOLIC [facility] HEART FAILURE 496 CHRONIC 01-12-2015 [facility] AIR[facility] EMERGENCY OBSTRUCTION AMBULAN NEC 25500 ACUTE 01-12-2015 [facility] RESPIRATORY [facility] FAILURE 5849 ACUTE 01-12-2015 [facility] KIDNEY EMERGENCY FAILURE AMBULAN UNSPECIFIED 5853 CHRONIC 01-12-2015 [facility] KIDNEY [facility] DISEASE STAGE III (MODERATE) 7140 RHEUMATOID 01-12-2015 [facility] ARTHRITIS [facility] 7862 COUGH 01-12-2015 [facility] 66451 SOLITARY 01-12-2015 [facility] V4582 POSTSURG 01-12-2015 [facility] P L COR ANGPLSTY STS V5867 LONG-TERM 01-12-2015 [facility] OF [facility] INSUL[facility] P V5869 LONG-TERM 01-12-2015 [facility] (CURRENT) [facility] USE OF HOSPITAL P OTHER MEDICATIONS 37971 01-04-2015 [facility] 99888 ATRIAL 12-25-2014 [facility] O 7823 EDEMA 12-25-2014 [facility] AMBULANCE SERVICE 26274 OTHER FLUID 12-24-2014 [facility] OVER[facility] 41313 ANEMIA IN 12-24-2014 [facility] DISEASE 92943 HTN CKD UNS 12-24-2014 [facility] MEDICAL W/CKD SERV STAGE I [facility] THRU STAGE IV/UNS 5880 RENAL 12-24-2014 [facility] OSTEODYSTRO SERV PHY [facility] 4240 MITRAL 12-22-2014 [facility] VALVE SERV DISORDERS [facility] 4242 TRICUSPID 12-22-2014 [facility]ORD[facility] SPEC NONRHEUMATI C 13269 OCCL&STENOS 12-22-2014 [place] [facility]ER[facility]RL [facility] ART W/O INFARCT 80048 OTHER 12-19-[address] [facility] CHRONIC PHYSICIANS PAIN GROUP 4011 ESSENTIAL 12-19-[address] [facility] HYPERTENSIO PHYSICIANS N, BENIGN GROUP 4439 UNSPECIFIED 12-18-2014 [facility] DISEASE O V4509 OTHER 12-18-2014 [facility] CARDIAC INC DEVICE IN SITU 5601 PARALYTIC 12-09-[address] [facility] ILEUS PHYSICIANS GROUP 7873 FLATULENCE 12-02-[address] [facility] ERUCTATION PHYSICIANS AND GAS GROUP PAIN 31511 ABDOMINAL 12-02-[address] [facility] PAIN, PHYSICIANS UNSPECIFIED GROUP SITE 51266 UNS 12-01-2014 [facility] GASTRITIS&G AMBULANCE ASTRODUODIT SERVICE IS W/O MENTION HEMORR 5609 UNSPECIFIED 12-01-2014 [facility] OBSTRUCTION 64493 CALCU 12-01-2014 [facility] W/O MENTION IMAGING ASS CHOLECYST/O BST V4502 AUTOMATIC 12-01-2014 [facility] DEFIBRILLAT OR SITU 250 DIABETES 11-26-2014 [facility] [place] [address] OTHER 11-23-2014 [facility] SPECIFIED CARDIAC DYSRHYTHMIA S 5851 CHRONIC 11-23-2014 [facility] [place] [address] RESTLESS 11-06-2014 [facility] PRIMARY SYNDROME CARE 67399 ESOPHAGEAL 11-06-2014 [facility] REFLUX PRIMARY CARE 4293 CARDIOMEGAL 10-13-2014 [place] [facility] [place] 91103 OTHER 10-13-2014 [place] DYSPNEA AND REGIONAL MEDICAL CE RESPIRATORY ABNORMALITI ES 5932 ACQUIRED 10-07-2014 [facility] ASS 48528 UNSPECIFIED 09-11-2014 [facility] INFECTION PARTNERS OF OF BONE LEXINGT ANKLE AND FOOT 9597 INJURY 09-11-2014 [facility] CIFIED KNEE INC LEG ANKLE&FOOT V5881 FITTING AND 09-11-2014 [place] [facility]JUST[facility]ICAL OF IMAGING ASS VASCULAR CATHETER 24563 DIAB W/O 09-08-2014 [facility] MEDICAL MENTION SERV COMP TYPE FOUNDATION II/UNS TYPE UNCNTRL 2767 HYPERPOTASS 08-26-2014 [facility] P 412 OLD 08-26-2014 [facility] INFAR[facility] INC 78393 CORONARY 08-26-2014 [facility] P CORONARY ARTERY 5859 CHRONIC 08-26-2014 [facility] DISEASE INC UNSPECIFIED 53717 WHEEZING 08-26-2014 [place] [facility] 1101 DERMATOPHYT 08-14-2014 [facility] OSIS OF NAIL 22207 DIAB 08-14-2014 [facility] W/PERIPH CIRC D/O TYPE II/UNS TYPE UNCNTRL 7295 PAIN IN 08-14-2014 [facility] SOFT TISSUES OF LIMB 462 ACUTE 08-08-2014 [facility] 97645 OTH NONSPC 08-08-2014 [place] [facility] FINDNG MEDICAL RAD&OTH EXM IMAGING ASS BODY STRUCTURE 714 RA AND 07-23-2014 [facility] OTHER AREA AGENCY INFLAMMATOR ON RED Y POLYARTHROP ATHIES 53013 URINARY 07-09-2014 [facility] HESITANCY [facility]IMARY CARE 4271 PAROXYSMAL 06-22-2014 [facility] VENTRICULAR SERV FOUNDATION TACHYCARDIA V5331 FITTING AND 06-22-2014 [facility] MED[facility] ADJUSTMENT SERV OF CARDIAC FOUNDATION PACEMAKER V707 EXAMINATION 06-22-2014 [facility] MEDICAL OF SERV PARTICIPANT FOUNDATION IN CLINICAL TRIAL 68366 OTHER 06-21-2014 [facility] MEDICAL PREMATURE SERV BEATS FOUNDATION 62622 NONSPECIFIC 06-21-2014 [facility] MEDICAL ABNORMAL SERV ELECTROCARD FOUNDATION IOGRAM 26801 DIAB 06-18-2014 [facility] TYPE II/UNS TYPE UNCNTRL 12686 ACUT MS 06-18-2014 [facility]FAR[facility] INIT EPIS CARE 87018 ULCER OF 06-18-2014 [facility] V4589 OTHER 06-18-2014 [facility] MEDICAL POSTSURGICA SERV L STATUS FOUNDATION OTHER 29259 DIAB W/O 06-17-2014 [place] [facility] MENTION SERV COMP TYPE I FOUNDATION [JUV TYPE] UNCNTRL 12073 ACUT 06-17-2014 [facility] INFARCT UNS SERVICE SITE EPIS CARE UNS 98345 ACUTE 06-17-2014 [facility] P UNSPEC SITE INIT EPIS CARE 5180 PULMONARY 06-17-2014 [facility] MEDICAL COLLAPSE SERV FOUNDATION 7850 UNSPECIFIED 06-17-2014 [place] [facility] TACHYCARDIA IMAGING ASS 79859 PRECORDIAL 06-17-2014 [facility] PAIN [facility] SERVICE 3572 POLYNEUROPA 06-10-2014 [facility] DIABETES AGENCY 32048 ULCER OF 06-10-2014 [facility] OTHER PART HEALTH OF FOOT AGENCY 12767 MUSCLE 06-10-2014 [facility] (GENERALIZE AGENCY D) 5794 CELLULITIS 04-14-2014 [facility] AND ABSCESS PRIMARY OF LEG CARE EXCEPT FOOT 48777 INSOMNIA 03-19-2014 [facility] UNSPECIFIED PRIMARY CARE 64216 UNSPECIFIED 01-22-2014 [facility] [place] [address] ULCER OF 01-22-2014 [facility] INC V571 OTHER 01-22-2014 [facility] THERAPY INC 8911 OPEN WOUND 01-19-2014 [facility] OF KNEE LEG PRIMARY AND ANKLE CARE COMPLICATED 586 UNSPECIFIED 08-27-2013 [place] RENAL REGIONAL FAILURE MEDICAL CE 7038 OTHER 08-27-2013 [facility] SPECIFIED PRIMARY DISEASE OF CARE NAIL 61285 OLECRANON 08-01-2013 [facility] BURSITIS PRIMARY CARE 15911 GEN 07-22-2013 [facility] HOME SIS MEDICAL INVOLVING EQUIPME MULTIPLE SITES 45625 GENERALIZED 05-22-2013 [facility] SIS UNSPECIFIED SITE 37470 ULCER OF 03-17-2013 [facility] HEEL AND PRIMARY MIDFOOT CARE 7812 ABNORMALITY 03-17-2013 [facility] OF GAIT PRIMARY CARE 99437 OSTEOARTHRO 02-20-[address] SIS UNSPEC ORTHOPAEDIC WHETHER S PLC GEN/LOC LOWER LEG V0481 NEED 02-12-2013 [facility] PROPHYLACTI PRIMARY C CARE VACCINATION &INOCULATIO N FLU 81008 PAIN IN 11-15-2012 [facility] JOINT, PRIMARY SHOULDER CARE REGION 25957 PAIN IN 11-15-2012 [facility] JO[facility], PRIMARY UPPER ARM CARE 38794 UNSPEC 10-08-2012 [facility] C[facility] OF ATHY/POLYAR LEXINGTO THRITIS SITE UNSPEC 16470 DIAB 09-20-2012 [place] W/NEURO REGIONAL MANIFESTS MEDICAL CE TYPE II/UNS TYPE UNCNTRL 4871 INFLUENZA 05-27-2012 [facility] WITH OTHER RESPIRATORY MANIFESTATI ONS 72000 FEVER 05-18-2012 IN[facility] UNSPECIFIED [place] 4660 ACUTE 04-25-2012 [facility] BRONCHITIS 4658 ACUTE URIS 02-28-2012 [facility] OF OTHER MULTIPLE SITES 38857 PRESSURE 02-28-2012 [facility] ULCER HEEL 7993 UNSPECIFIED 01-19-2012 [facility] 81869 OTHER 07-24-2011 [facility] SARK[facility] URINARY INCONTINENC E 55510 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 [facility]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 7291 UNSPECIFIED 12-23-2010 [facility] JOSE MARCHPIrenaSIrenaCIrena MYOSITIS 02506 UNSPECIFIED 11-30-2010 [place] LAPAROSCOPI OSTEOMYELIT C & IS ANKLE ADVANCED S AND FOOT 9961 [facility] COMP 11-30-2010 CT OT LAPAROSCOPI VASCULAR C & DEVICE ADVANCED S IMPLANT&[place] [address] FLUSHING 09-20-2010 [facility] [place] [place] [address] PRESSURE 06-14-2010 ROSY Nelson ULCER ANDRE VALDES, UNSPECIFIED LLC SITE 53053 ACUTE 06-14-2010 ROSY Nelson OSTEOMYELIT ANDRE VALDES, IS SITE LLC UNSPECIFIED 89585 ACUTE 06-02-2010 ROSY Nelson OSTEOMYELION POWELL MD, IS, ANKLE LLC AND FOOT 2859 UNSPECIFIED 05-19-2010 [facility] 50466 UNSPECIFIED 05-19-2010 [facility] ABSCESS OF TOE 01982 PRESSURE 05-19-2010 [facility] ULCER SOLUTIONS BUTTOCK 93664 UNSPECIFIED 05-17-2010 [place] LAPAROSCOPI OSTEOMYELIT C & IS OTHER ADVANCED S SPECIFIED SITES 42938 CHEST PAIN 05-17-2010 [place] UNSPECIFIED HEART & VASCULAR PH 6829 CELLULITIS 05-16-2010 [facility] [place] AND ABSCESS IMAGING PSC OF UNSPECIFIED SITE 57735 UNSPECIFIED 05-16-2010 ROSY POWELL MD, OSTEOMYELIT LLC IS SITE UNSPECIFIED 5939 UNSPECIFIED 05-13-2010 [facility] [place] DISORDER IMAGING P[facility] OF KIDNEY AND URETER 33125 OTHER CHEST 05-13-2010 [place] PAIN LAPAROSCOPI C & ADVANCED S 15819 OTHER 05-13-2010 [facility] [place] INVOLVING KIDNEY CARE URINARY SYSTEM 24806 PRESSURE 05-12-2010 [place] [address] PRESSURE 05-12-2010 [place] ULCER STAGE REGIONAL II MEDICAL CE 7851 PALPITATION 04-19-2010 [facility] HEART & VASCULAR PH 3569 UNSPEC 04-14-2010 [facility] HEREDIT&IDI FAMILY OPATHIC PRACTICE CL PERIPHERAL NEUROPATHY 59554 DIAB W/O 01-24-2010 [facility] COMP TYPE I FAMILY [JUV] NOT PRACTICE CL STATED UNCNTRL 7801 HALLUCINATI 12-23-2009 [facility] ONS EMERGENCY PHYSICIANS 6827 CELLULITIS 11-02-2009 [facility] AND ABSCESS EMERGENCY OF FOOT PHYSICIANS EXCEPT TOES 75915 OSTEOARTHRO 11-02-2009 [facility] [place] SIS UNSPEC IMAGING PSC WHETHER GEN/LOC ANK&FOOT 9174 FOOT&TOE 11-02-2009 [facility] INSECT BITE EMERGENCY PHYSICIANS NONVENOMOUS W/O MENTION INF 9175 FOOT AND 11-02-2009 [place] TOE INSECT REGIONAL BITE MEDICAL NONVENOMOUS CENT INFECTED E0008 OTHER 11-02-2009 [place] EXTERNAL REGIONAL CAUSE MEDICAL STATUS CENT E8490 PLACE OF 11-02-2009 [facility] OCCURRENCE, EMERGENCY HOME PHYSICIANS E9064 BITE OF 11-02-2009 [facility] NONVENOMOUS EMERGENCY ARTHROPOD PHYSICIANS 3670 HYPERMETROP 10-21-2009 [facility] PTON, JERMAINE 06186 OTHER 10-05-2009 [facility] 10804 PAIN IN 09-07-2009 [place] JO[facility] PAIN PELVIC PHYSICIANS REGION AND PSC THIGH 38489 PAIN IN 09-07-2009 [place] JO[facility], PAIN LOWER LEG PHYSICIANS PSC 7242 LUMBAGO 09-07-2009 [facility] PAIN PHYSICIANS PSC 7410 SPINA 08-03-2009 BHAGRATH, BIFIDA WITH KSENIA S HYDROCEPHAL US 7804 DIZZINESS 07-30-2009 [facility] AND PAIN GIDDINESS PHYSICIANS PSC 50972 POLYARTICUL 07-08-2009 [place] AR JUVENILE PAIN RA CHRONIC PHYSICIANS OR PSC UNSPECIFIED 7852 UNDIAGNOSED 07-01-2009 [place] [facility] VASCULAR PHYSICIANS, INC 02831 PAIN IN 11-09-2008 [facility], L HOME MULTIPLE MEDICAL SITES SUPPLIES INC 2689 UNSPECIFIED 10-02-2008 [place] VITAMIN D REGIONAL DEFICIENCY MEDICAL CENT 5852 CHRONIC 10-02-2008 [place] KIDNEY REGIONAL DISEASE MEDICAL STAGE II CENT (MILD) 56337 HYPERTROPHY 10-02-2008 [place] PROSTATE REGIONAL W/O UR OBST MEDICAL & OTH LUTS CENT 7910 PROTEINURIA 10-02-2008 [facility] 7231 CERVICALGIA 07-08-2008 [facility]SC 10253 OSTEOARTHRO 2008 [facility] S UNSPEC ORTHOPAEDIC GEN/LOC S PLC PELV REGION&THIG H 3829 UNSPECIFIED 05-28-2008 [facility] 4659 ACUTE URIS 04-28-2008 [place] OF [facility] UNSPECIFIED HOSP SITE 7213 LUMBOSACRAL 04-02-2008 [facility] SERVICES SPONDYLOSIS 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 7244 THORACIC/TY 04-02-2008 [facility] MBOSACRAL SERVICES NEURITIS/RA PSC DICULITIS UNSPEC 8472 LUMBAR 04-02-2008 [facility] SPRAIN AND SERVICES STRAIN PSC 6828 CELLULITIS 03-03-2008 [place] AND ABSCESS [facility] OF OTHER HOSP SPECIFIED SITE 08284 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 HYPERPARATH NEPHROLOGY YROIDISM CONSULTANTS 9578 INJURY TO 02-11-2008 [facility] DORSAL SERVICES NERVE ROOT PSC 29849 OSTEOARTHRO 01-14-2008 [facility] S UNSPEC SERVICES GEN/LOC OTH PSC SPEC SITES 39505 DISPLCMT 01-14-2008 [facility] LUMBAR SERVICES INTERVERT PSC DISC W/O MYELOPATHY 65250 SPINAL STEN 01-14-2008 [facility] LUMB REG SERVICES W/O PSC NEUROGENIC CLAUDICATIO N 04599 SCOLIOSIS , 01-14-2008 [facility] IDIOPATHIC SERVICES PSC 7246 DISORDERS 12-25-2007 [facility] OF SACRUM SERVICES PSC 7245 UNSPECIFIED 12-21-2007 [facility] BACKACHE IMAGING PSC 51236 ABDOMINAL 12-21-2007 [place] PAIN OTHER REGIONAL SPECIFIED MEDICAL SITE CENT 3970 DISEASES OF 11-18-2007 [facility], TRICUSPID ZE C VALVE 29434 PRIMARY LOC 11-13-2007 [facility] OSTEOARTHRO MEDICAL SIS PELVIC CENT REGION&THIG H 34154 PRIMARY 11-13-2007 [facility] OSTE[facility] MEDICAL SIS LOWER CENT LEG 7176 LOOSE BODY 11-13-2007 [place] IN KNEE [facility] MED[facility] CENT 00487 DISORDER OF 11-13-2007 [facility] BONE AND IMAGING PSC CARTILAGE UNSPECIFIED 2818 ANEMIA 09-26-2007 [facility] W/OTHER PLLC SPEC NUTRITIONAL DEFIC 4778 ALLERGIC 09-26-2007 [facility] DUE TO PLLC OTHER ALLERGEN 71530 UNSPECIFIED 09-26-2007 [facility] ABSCESS OF FINGER 38442 NOCTURIA 09-26-2007 [facility] 23371 VOMITING 09-13-2007 [facility] 14257 OSTEOARTHRO 09-04-2007 [facility] S UNSPEC NEPHROLOGY WHETHER CONSULTANTS GEN/LOC UNSPEC SITE 32978 ELEVATED 09-04-2007 [facility] PROSTATE NEPHROLOGY SPECIFIC CONSULTANTS ANTIGEN 10277 UNSPECIFIED 06-24-2007 [facility] CONSTIPATIO MEDICAL N CENT 94138 LOSS OF 06-24-2007 [place] WEIGHT [facility]ENT 72384 URINARY 06-24-2007 [place] FREQUENCY [facility] MEDICAL CENT V7644 SPECIAL 06-24-2007 [facility] MALIGNANT MEDICAL NEOPLASM OF CENT [...] 0 RE 15 FT 41 17 17 MS EN 0 PH CH ER AR AE MA L 25 CY S 0 MG LL C SO FT GE L 00 08 11 0 30 30 ME 15 GA Ac TA 90 -3 -2 0. D 34 IN ti MS 40 1- 5- 00 CA 30 EY ve N 52 20 20 0 RE 14 C 38 17 17 MS 50 0 PH CH 0 AR AE MG MA L CY S TA BL LL ET C SE 00 08 11 0 12 30 ME 15 GA Ac NN 90 -3 -2 00 D 34 IN ti A- 46 1- 5- .0 CA 30 EY ve LA 52 20 20 00 RE 16 X 26 17 17 MS 8. 1 PH CH 6 AR AE MG MA L CY S TA BL LL ET C 00 08 11 0 30 30 ME 15 GA Ac PI 90 -3 -2 0. D 31 IN ti RI 46 1- 0- 00 CA 53 EY ve N 28 20 20 0 RE 70 81 88 17 17 MS 9 PH CH MG AR AE MA L CH CY S EW AB LL LE C TA BL ET 00 08 11 0 30 30 ME 15 GA Ac TA 53 -3 -1 0. D 28 IN ti MS 63 1- 5- 00 CA 72 EY ve N 79 20 20 0 RE 37 D3 00 17 17 MS 1 PH CH 2, AR AE 00 MA L 0 CY S UN IT LL C SO FT GE L TA 00 08 11 0 30 30 ME 15 GA Ac B- 90 -3 -1 0. D 28 IN ti A- 40 1- 5- 00 CA 72 EY ve 53 20 20 0 RE 36 TE 08 17 17 MS 0 PH CH TA AR AE BL MA L ET CY S LL C FE 00 08 11 0 30 30 ME 15 GA Ac RR 53 -3 -1 0. D 28 IN ti OU 61 1- 5- 00 CA 72 EY ve S 00 20 20 0 RE 35 CLARK 90 17 17 MS LF 1 PH CH AT AR AE E MA L 32 CY S 5 MG LL C TA BL ET LO 00 08 11 0 30 30 ME 15 GA Ac RA 78 -3 -0 0. D 23 IN ti TA 15 1- 4- 00 CA 05 EY ve DI 07 20 20 0 RE 03 NE 70 17 17 MS 1 PH CH 10 AR AE MA L MG CY S TA LL BL C ET SE 00 08 10 0 12 30 ME 15 GA Ac NN 90 -3 -2 00 D 18 IN ti A- 46 1- 7- .0 CA 77 EY ve LA 52 20 20 00 RE 76 X 26 17 17 MS 8. 1 PH CH 6 AR AE MG MA L CY S TA BL LL ET C 00 08 10 0 30 30 ME 15 GA Ac TA 90 -3 -2 0. D 18 IN ti MS 40 1- 7- CA 77 EY ve N 52 20 20 0 RE 74 C 38 17 17 MS 50 0 PH CH 0 AR AE MG MA L CY S TA BL LL ET C ST 00 08 10 0 30 30 ME 15 GA Ac OO 53 -3 -2 0. D 18 IN ti L 61 1- 7 CA 77 EY ve SO 06 20 20 0 RE 75 FT 41 17 17 MS EN 0 PH CH ER AR AE MA L 25 CY S 0 MG LL C SO FT GE L 00 08 10 0 30 30 ME 15 GA Ac PI 90 -3 -2 0. D 16 IN ti RI 46 1- 3- 00 CA 98 EY ve N 28 20 20 0 RE 63 81 88 17 17 MS 9 PH CH MG AR AE MA L CH CY S EW AB LL LE C TA BL ET 00 08 10 0 30 30 ME 15 GA Ac TA 53 -3 -1 0. D 12 IN ti MS 63 1- 6- CA 12 EY ve N 79 20 20 0 RE 14 D3 00 17 17 MS 1 PH CH 2, AR AE 00 MA L 0 CY S UN IT LL C SO FT GE L FE 00 08 10 0 30 30 ME 15 GA Ac RR 53 -3 -1 0. D 12 IN ti OU 61 1- 6- CA 12 EY ve S 00 20 20 0 RE 10 CLARK 90 17 17 MS LF 1 PH CH AT AR AE E MA L 32 CY S 5 MG LL C TA BL ET TA 00 08 10 0 30 30 ME 15 GA Ac B- 90 -3 -1 0. D 12 IN ti A- 40 1- 6- 00 CA 12 EY ve 53 20 20 0 RE 11 TE 08 17 17 MS 0 PH CH TA AR AE BL MA L ET CY S LL C LO 00 08 10 0 30 30 ME 15 GA Ac RA 78 -3 -0 0. D 07 IN ti TA 15 1- 6- CA 11 EY ve DI 07 20 20 0 RE 54 NE 70 17 17 MS 1 PH CH 10 AR AE MA L MG CY S TA LL BL C ET ST 00 08 09 0 30 30 ME 14 GA Ac OO 53 -3 -2 0. D 87 IN ti L 61 1- 7- 00 CA 57 EY ve SO 06 20 20 0 RE 82 FT 41 17 17 MS EN 0 PH CH ER AR AE MA L 25 CY S 0 MG LL C SO FT GE L SE 00 08 09 0 12 30 ME 14 GA Ac NN 90 -3 -2 00 D 87 IN ti A- 46 1- 7- .0 CA 57 EY ve LA 52 20 20 00 RE 99 X 26 17 17 MS 8. 1 PH CH 6 AR AE MG MA L CY S TA BL LL ET C 00 08 09 0 13 13 ME 14 GA Ac TA 90 -3 -2 0. D 87 IN ti MS 40 1- 7 CA 57 EY ve N 52 20 20 0 RE 80 C 38 17 17 MS 50 0 PH CH 0 AR AE MG MA L CY S TA BL LL ET C 00 08 09 0 30 30 ME 14 GA Ac PI 90 -3 -2 0. D 87 IN ti RI 46 7 CA 57 EY ve N 28 20 20 0 RE 76 81 88 17 17 MS 9 PH CH MG AR AE MA L CH CY S EW AB LL LE C TA BL ET TA 00 08 09 0 30 30 ME 14 GA Ac B- 90 -3 -1 0. D 87 IN ti A- 40 8 CA 57 EY ve 53 20 20 0 RE 93 TE 08 17 17 MS 0 PH CH TA AR AE BL MA L ET CY S LL C RO 00 08 09 0 15 30 ME 14 GA Ac BA 90 -3 -1 00 D 87 IN ti FE 40 1- 8- .0 CA 57 EY ve N- 05 20 20 00 RE 97 DM 31 17 17 MS 6 PH CH SY AR AE RU MA L P CY S LL C FE 00 08 09 0 30 30 ME 14 GA Ac RR 53 -3 -1 0. D 87 IN ti OU 61 1- 8- 00 CA 57 EY ve S 00 20 20 0 RE 84 CLARK 90 17 17 MS LF 1 PH CH AT AR AE E MA L 32 CY S 5 MG LL C TA BL ET 00 08 09 0 30 30 ME 14 GA Ac TA 53 -3 -1 0. D 97 IN ti MS 63 1- 8- 00 CA 42 EY ve N 79 20 20 0 RE 76 D3 00 17 17 MS 1 PH CH 2, AR AE 00 MA L 0 CY S UN IT LL C SO FT GE L EN 00 09 09 0 13 1 ME 14 GA Ac EM 53 -1 -1 30 D 97 IN ti A 67 8- 8- .0 CA 43 EY ve 41 20 20 00 RE 40 55 17 17 MS 1 PH CH AR AE MA L CY S LL C LO 00 08 09 0 30 30 ME 14 GA Ac RA 78 -3 -0 0. D 87 IN ti TA 15 1- 8- 00 CA 57 EY ve DI 07 20 20 0 RE 87 NE 70 17 17 MS 1 PH CH 10 AR AE MA L MG CY S TA LL BL C ET 00 08 08 0 30 30 ME 14 GA Ac TA 90 -2 -2 0. D 83 IN ti MS 40 5- 5- 00 CA 93 EY ve N 52 20 20 0 RE 36 C 38 17 17 MS 50 0 PH CH 0 AR AE MG MA L CY S TA BL LL ET C 00 06 08 0 30 30 ME 14 GA Ac PI 90 -2 -2 0. D 81 IN ti RI 46 0- 1- 00 CA 39 EY ve N 28 20 20 0 RE 76 81 88 17 17 MS 9 PH CH MG AR AE MA L CH CY S EW AB LL LE C TA BL ET 00 06 08 0 30 30 ME 14 GA Ac TA 53 -2 -1 0. D 78 IN ti MS 63 0- 8- 00 CA 56 EY ve N 79 20 20 0 RE 78 D3 00 17 17 MS 1 PH CH 2, AR AE 00 MA L 0 CY S UN IT LL C SO FT GE L BI 00 06 08 0 15 30 ME 14 GA Ac SC 90 -2 -1 0. D 44 IN ti OL 45 0- 8- 00 CA 02 EY ve AX 05 20 20 0 RE 06 81 17 17 MS 10 2 PH CH AR AE MG MA L CY S CLARK PP LL OS C IT OR Y ST 00 06 08 0 30 30 ME 14 GA Ac OO 53 -2 -1 0. D 77 IN ti L 61 0- 7- 00 CA 70 EY ve SO 06 20 20 0 RE 49 FT 41 17 17 MS EN 0 PH CH ER AR AE MA L 25 CY S 0 MG LL C SO FT GE L FE 00 06 08 0 30 30 ME 14 GA Ac RR 53 -2 -1 0. D 77 IN ti OU 61 0- 7- 00 CA 70 EY ve S 00 20 20 0 RE 48 CLARK 90 17 17 MS LF 1 PH CH AT AR AE E MA L 32 CY S 5 MG LL C TA BL ET SE 00 06 08 0 12 30 ME 14 GA Ac NN 90 -2 -1 00 D 77 IN ti A- 46 0- 7- .0 CA 70 EY ve LA 52 20 20 00 RE 50 X 26 17 17 MS 8. 1 PH CH 6 AR AE MG MA L CY S TA BL LL ET C TA 00 06 08 0 30 30 ME 14 GA Ac B- 90 -2 -1 0. D 76 IN ti A- 40 0- 4- 00 CA 87 EY ve 53 20 20 0 RE 37 TE 08 17 17 MS 0 PH CH TA AR AE BL MA L ET CY S LL C LO 00 06 08 0 30 30 ME 14 GA Ac RA 78 -2 -1 0. D 74 IN ti TA 15 0- 2- 00 CA 04 EY ve DI 07 20 20 0 RE 56 NE 70 17 17 MS 1 PH CH 10 AR AE MA L MG CY S TA LL BL C ET RO 00 06 08 0 15 30 ME 14 GA Ac BA 90 -2 -0 00 D 74 IN ti FE 40 0- 9- .0 CA 72 EY ve N- 05 20 20 00 RE 35 DM 31 17 17 MS 6 PH CH SY AR AE RU MA L P CY S LL C FE 00 06 07 0 30 30 ME 14 GA Ac RR 53 -2 -1 0. D 60 IN ti OU 61 0- 8- 00 CA 24 EY ve S 00 20 20 0 RE 56 CLARK 90 17 17 MS LF 1 PH CH AT AR AE E MA L 32 CY S 5 MG LL C TA BL ET SE 00 06 07 0 12 30 ME 14 GA Ac NN 90 -2 -1 00 D 60 IN ti A- 46 0- 8- .0 CA 24 EY ve LA 52 20 20 00 RE 60 X 26 17 17 MS 8. 1 PH CH 6 AR AE MG MA L CY S TA BL LL ET C 00 06 07 0 30 30 ME 14 GA Ac PI 90 -2 -1 0. D 60 IN ti RI 46 0- 8- 00 CA 24 EY ve N 28 20 20 0 RE 55 81 88 17 17 MS 9 PH CH MG AR AE MA L CH CY S EW AB LL LE C TA BL ET TA 00 06 07 0 30 30 ME 14 GA Ac B- 90 -2 -1 0. D 60 IN ti A- 40 0- 8- 00 CA 24 EY ve 53 20 20 0 RE 59 TE 08 17 17 MS 0 PH CH TA AR AE BL MA L ET CY S LL C LO 00 06 07 0 30 30 ME 14 GA Ac RA 78 -2 -1 0. D 60 IN ti TA 15 0- 8- 00 CA 24 EY ve DI 07 20 20 0 RE 58 NE 70 17 17 MS 1 PH CH 10 AR AE MA L MG CY S TA LL BL C ET ST 00 06 07 0 30 30 ME 14 GA Ac OO 53 -2 -1 0. D 60 IN ti L 61 0- 8- 00 CA 24 EY ve SO 06 20 20 0 RE 57 FT 41 17 17 MS EN 0 PH CH ER AR AE MA L 25 CY S 0 MG LL C SO FT GE L 00 06 06 0 30 30 ME 14 GA Ac TA 53 -2 -2 0. D 44 IN ti MS 63 0- 0- 00 CA 02 EY ve N 79 20 20 0 RE 04 D3 00 17 17 MS 1 PH CH 2, AR AE 00 MA L 0 CY S UN IT LL C SO FT GE L RO 00 06 06 0 15 30 ME 14 GA Ac BA 90 -2 -2 00 D 44 IN ti FE 40 0- 0- .0 CA 02 EY ve N- 05 20 20 00 RE 15 DM 31 17 17 MS 6 PH CH SY AR AE RU MA L P CY S LL C 00 06 06 0 30 30 ME 14 GA Ac PI 90 -2 -2 0. D 44 IN ti RI 46 0- 0- 00 CA 01 EY ve N 28 20 20 0 RE 76 81 88 17 17 MS 9 PH CH MG AR AE MA L CH CY S EW AB LL LE C TA BL ET FE 00 06 06 0 30 30 ME 14 GA Ac RR 53 -2 -2 0. D 44 IN ti OU 61 0- 0- 00 CA 01 EY ve S 00 20 20 0 RE 81 CLARK 90 17 17 MS LF 1 PH CH AT AR AE E MA L 32 CY S 5 MG LL C TA BL ET SE 00 06 06 0 12 30 ME 14 GA Ac NN 90 -2 -2 00 D 44 IN ti A- 46 0- 0- .0 CA 02 EY ve LA 52 20 20 00 RE 03 X 26 17 17 MS 8. 1 PH CH 6 AR AE MG MA L CY S TA BL LL ET C MA 00 06 06 0 60 30 ME 14 GA Ac PA 90 -2 -2 0. D 44 IN ti P 41 0- 0- 00 CA 02 EY ve 50 98 20 20 0 RE 05 0 86 17 17 MS MG 1 PH CH AR AE TA MA L BL CY S ET LL C ST 00 06 06 0 30 30 ME 14 GA Ac OO 53 -2 -2 0. D 44 IN ti L 61 0- 0- 00 CA 01 EY ve SO 06 20 20 0 RE 83 FT 41 17 17 MS EN 0 PH CH ER AR AE MA L 25 CY S 0 MG LL C SO FT GE L LO 00 06 06 0 30 30 ME 14 GA Ac RA 78 -2 -2 0. D 44 IN ti TA 15 0- 0- 00 CA 01 EY ve DI 07 20 20 0 RE 85 NE 70 17 17 MS 1 PH CH 10 AR AE MA L MG CY S TA LL BL C ET TA 00 06 06 0 30 30 ME 14 GA Ac B- 90 -2 -2 0. D 44 IN ti A- 40 0- 0- 00 CA 01 EY ve 53 20 20 0 RE 86 TE 08 17 17 MS 0 PH CH TA AR AE BL MA L ET CY S LL C BI 00 05 06 0 12 12 ME 14 GA Ac SC 90 -2 -1 0. D 26 IN ti OL 45 6- 2- 00 CA 89 EY ve AX 05 20 20 0 RE 53 81 17 17 MS 10 2 PH CH AR AE MG MA L CY S CLARK PP LL OS C IT OR Y LO 00 03 05 0 30 30 ME 14 GA Ac RA 78 -1 -1 0. D 21 IN ti TA 15 9- 9- 00 CA 63 EY ve DI 07 20 20 0 RE 53 NE 70 17 17 MS 1 PH CH 10 AR AE MA L MG CY S TA LL BL C ET SE 00 03 05 0 12 30 ME 14 GA Ac NN 90 -1 -1 00 D 19 IN ti A- 46 9- 6- .0 CA 54 EY ve LA 52 20 20 00 RE 69 X 26 17 17 MS 8. 1 PH CH 6 AR AE MG MA L CY S TA BL LL ET C 00 03 05 0 30 30 ME 14 GA Ac TA 90 -1 -1 0. D 19 IN ti MS 45 9- 5- 00 CA 90 EY ve N 04 20 20 0 RE 88 AN 26 17 17 MS D 0 PH CH MS AR AE NE MA L RA CY S LS LL TA C BL ET 00 03 05 0 30 30 ME 14 GA Ac PI 53 -1 -1 0. D 18 IN ti RI 61 9- 2- 00 CA 24 EY ve N 00 20 20 0 RE 73 EC 44 17 17 MS 1 PH CH 81 AR AE MA L MG CY S TA LL BL C ET ST 00 02 05 0 30 30 ME 14 GA Ac OO 53 -2 -1 0. D 18 IN ti L 61 3- 2- 00 CA 24 EY ve SO 06 20 20 0 RE 76 FT 41 17 17 MS EN 0 PH CH ER AR AE MA L 25 CY S 0 MG LL C SO FT GE L 00 03 05 0 30 30 ME 14 GA Ac TA 53 -1 -1 0. D 18 IN ti MS 63 9- 2- 00 CA 24 EY ve N 79 20 20 0 RE 82 D3 00 17 17 MS 1 PH CH 2, AR AE 00 MA L 0 CY S UN IT LL C SO FT GE L BI 00 05 05 0 15 15 ME 14 GA Ac SC 90 -1 -1 0. D 18 IN ti OL 45 0- 0- 00 CA 07 EY ve AX 05 20 20 0 RE 34 81 17 17 MS 10 2 PH CH AR AE MG MA L CY S CLARK PP LL OS C IT OR Y FE 00 03 05 0 30 30 ME 14 GA Ac RR 53 -1 -0 0. D 14 IN ti OU 61 9- 5- 00 CA 67 EY ve S 00 20 20 0 RE 52 CLARK 90 17 17 MS LF 1 PH CH AT AR AE E MA L 32 CY S 5 MG LL C TA BL ET RO 00 04 05 0 15 30 ME 14 GA Ac BA 90 -0 -0 00 D 10 IN ti FE 40 7- 5- .0 CA 68 EY ve N- 05 20 20 00 RE 31 DM 31 17 17 MS 6 PH CH SY AR AE RU MA L P CY S LL C LO 45 03 04 0 30 30 ME 14 GA Ac RA 80 -1 -2 0. D 06 IN ti TA 20 9- 0- 00 CA 95 EY ve DI 65 20 20 0 RE 55 NE 08 17 17 MS 7 PH CH 10 AR AE MA L MG CY S TA LL BL C ET SE 00 03 04 0 12 30 ME 14 GA Ac NN 90 -1 -1 00 D 05 IN ti A- 46 9- 7- .0 CA 07 EY ve LA 52 20 20 00 RE 52 X 26 17 17 MS 8. 1 PH CH 6 AR AE MG MA L CY S TA BL LL ET C ST 00 02 04 0 30 30 ME 14 GA Ac OO 53 -2 -1 0. D 03 IN ti L 61 3- 3- 00 CA 60 EY ve SO 06 20 20 0 RE 86 FT 41 17 17 MS EN 0 PH CH ER AR AE MA L 25 CY S 0 MG LL C SO FT GE L 00 03 04 0 30 30 ME 14 GA Ac PI 53 -1 -1 0. D 03 IN ti RI 61 9- 3- 00 CA 60 EY ve N 00 20 20 0 RE 85 EC 44 17 17 MS 1 PH CH 81 AR AE MA L MG CY S TA LL BL C ET 00 03 04 0 30 30 ME 14 GA Ac TA 53 -1 -1 0. D 03 IN ti MS 63 9- 3- 00 CA 60 EY ve N 79 20 20 0 RE 88 D3 00 17 17 MS 1 PH CH 2, AR AE 00 MA L 0 CY S UN IT LL C SO FT GE L 00 03 04 0 30 30 ME 14 GA Ac TA 90 -1 -0 0. D 00 IN ti MS 45 9- 7- 00 CA 93 EY ve N 04 20 20 0 RE 00 AN 26 17 17 MS D 0 PH CH MS AR AE NE MA L RA CY S LS LL TA C BL ET FE 00 03 04 0 30 30 ME 14 GA Ac RR 53 -1 -0 0. D 00 IN ti OU 61 9- 7- 00 CA 92 EY ve S 00 20 20 0 RE 98 CLARK 90 17 17 MS LF 1 PH CH AT AR AE E MA L 32 CY S 5 MG LL C TA BL ET RO 00 04 04 0 15 30 ME 14 GA Ac BA 90 -0 -0 00 D 02 IN ti FE 40 7- 7- .0 CA 15 EY ve N- 05 20 20 00 RE 12 DM 31 17 17 MS 6 PH CH SY AR AE RU MA L P CY S LL C SP 00 02 03 0 30 15 ME 13 GA Ac IR 60 -0 -3 0. D 96 IN ti ON 35 2- 0- 00 CA 66 EY ve OL 76 20 20 0 RE 65 AC 32 17 17 MS TO 1 PH CH NE AR AE MA L 25 CY S MG LL C TA BL ET LO 00 03 03 0 30 30 ME 13 GA Ac RA 78 -1 -2 0. D 92 IN ti TA 15 9- 2- 00 CA 57 EY ve DI 07 20 20 0 RE 96 NE 70 17 17 MS 1 PH CH 10 AR AE MA L MG CY S TA LL BL C ET SE 00 03 03 0 12 30 ME 13 GA Ac NN 90 -1 -2 00 D 92 IN ti A- 46 9- 0- .0 CA 14 EY ve LA 52 20 20 00 RE 20 X 26 17 17 MS 8. 1 PH CH 6 AR AE MG MA L CY S TA BL LL ET C ST 00 02 03 0 30 30 ME 13 GA Ac OO 53 -2 -1 0. D 89 IN ti L 61 3- 5- 00 CA 95 EY ve SO 06 20 20 0 RE 95 FT 41 17 17 MS EN 0 PH CH ER AR AE MA L 25 CY S 0 MG LL C SO FT GE L 00 07 03 0 30 30 ME 13 GA Ac TA 53 -2 -1 0. D 89 IN ti MS 63 5- 5- 00 CA 20 EY ve N 79 20 20 0 RE 80 D3 00 16 17 MS 1 PH CH 2, AR AE 00 MA L 0 CY S UN IT LL C SO FT GE L 00 09 03 0 30 30 ME 13 GA Ac PI 53 -1 -1 0. D 89 IN ti RI 61 9- 5- 00 CA 20 EY ve N 00 20 20 0 RE 76 EC 44 16 17 MS 1 PH CH 81 AR AE MA L MG CY S TA LL BL C ET FE 00 09 03 0 30 30 ME 13 GA Ac RR 53 -1 -1 0. D 86 IN ti OU 61 9- 0- 00 CA 96 EY ve S 00 20 20 0 RE 49 CLARK 90 16 17 MS LF 1 PH CH AT AR AE E MA L 32 CY S 5 MG LL C TA BL ET 00 06 03 0 30 30 ME 13 GA Ac TA 90 -1 -1 0. D 86 IN ti MS 45 0- 0- 00 CA 96 EY ve N 04 20 20 0 RE 51 AN 26 16 17 MS D 0 PH CH MS AR AE NE MA L RA CY S LS LL TA C BL ET LO 00 09 02 0 30 30 ME 13 GA Ac RA 78 -0 -2 0. D 77 IN ti TA 15 1- 1- 00 CA 64 EY ve DI 07 20 20 0 RE 76 NE 70 16 17 MS 1 PH CH 10 AR AE MA L MG CY S TA LL BL C ET 00 09 02 0 30 30 ME 13 GA Ac PI 53 -1 -1 0. D 74 IN ti RI 61 9- 4- 00 CA 04 EY ve N 00 20 20 0 RE 51 EC 44 16 17 MS 1 PH CH 81 AR AE MA L MG CY S TA LL BL C ET 00 07 02 0 30 30 ME 13 GA Ac TA 53 -2 -1 0. D 74 IN ti MS 63 5- 4- 00 CA 04 EY ve N 79 20 20 0 RE 52 D3 00 16 17 MS 1 PH CH 2, AR AE 00 MA L 0 CY S UN IT LL C SO FT GE L ST 00 02 02 0 30 30 ME 13 GA Ac OO 53 -2 -1 0. D 73 IN ti L 61 3- 3- 00 CA 36 EY ve SO 06 20 20 0 RE 84 FT 41 16 17 MS EN 0 PH CH ER AR AE MA L 25 CY S 0 MG LL C SO FT GE L 00 06 02 0 30 30 ME 13 GA Ac TA 90 -1 -1 0. D 72 IN ti MS 45 0- 0- 00 CA 74 EY ve N 04 20 20 0 RE 29 AN 26 16 17 MS D 0 PH CH MS AR AE NE MA L RA CY S LS LL TA C BL ET FE 00 09 02 0 30 30 ME 13 GA Ac RR 90 -1 -0 0. D 72 IN ti OU 47 9- 9- 00 CA 08 EY ve S 59 20 20 0 RE 92 CLARK 18 16 17 MS LF 0 PH CH AT AR AE E MA L 32 CY S 5 MG LL C TA BL ET SE 00 09 02 0 12 30 ME 13 GA Ac NN 90 -1 -0 00 D 71 IN ti A 46 9- 7- .0 CA 32 EY ve 8. 43 20 20 00 RE 82 6 48 16 17 MS MG 0 PH CH AR AE TA MA L BL CY S ET LL C BI 00 09 02 0 15 15 ME 13 GA Ac SC 90 -1 -0 0. D 70 IN ti OL 45 9- 6- 00 CA 96 EY ve AX 05 20 20 0 RE 91 81 16 17 MS 10 2 PH CH AR AE MG MA L CY S CLARK PP LL OS C IT OR Y LO 00 09 01 0 30 30 ME 13 GA Ac RA 78 -0 -2 0. D 63 IN ti TA 15 1- 3- 00 CA 50 EY ve DI 07 20 20 0 RE 87 NE 70 16 17 MS 1 PH CH 10 AR AE MA L MG CY S TA LL BL C ET 00 09 01 0 30 30 ME 13 GA Ac PI 53 -1 -1 0. D 59 IN ti RI 61 9- 6- 00 CA 87 EY ve N 00 20 20 0 RE 11 EC 44 16 17 MS 1 PH CH 81 AR AE MA L MG CY S TA LL BL C ET 00 07 01 0 30 30 ME 13 GA Ac TA 53 -2 -1 0. D 59 IN ti MS 63 5- 6- 00 CA 87 EY ve N 79 20 20 0 RE 12 D3 00 16 17 MS 1 PH CH 2, AR AE 00 MA L 0 CY S UN IT LL C SO FT GE L ST 00 02 01 0 30 30 ME 13 GA Ac OO 53 -2 -1 0. D 59 IN ti L 61 3- 4- 00 CA 46 EY ve SO 06 20 20 0 RE 94 FT 41 16 17 MS EN 0 PH CH ER AR AE MA L 25 CY S 0 MG LL C SO FT GE L 00 06 01 0 30 30 ME 13 GA Ac TA 90 -1 -1 0. D 59 IN ti MS 45 0- 3- 00 CA 03 EY ve N 04 20 20 0 RE 67 AN 26 16 17 MS D 0 PH CH MS AR AE NE MA L RA CY S LS LL TA C BL ET SE 00 09 01 0 12 30 ME 13 GA Ac NN 90 -1 -1 00 D 58 IN ti A- 46 9- 2- .0 CA 61 EY ve LA 52 20 20 00 RE 97 X 26 16 17 MS 8. 1 PH CH 6 AR AE MG MA L CY S TA BL LL ET C FE 00 09 01 0 30 30 ME 13 GA Ac RR 53 -1 -1 0. D 57 IN ti OU 61 9- 1- 00 CA 54 EY ve S 00 20 20 0 RE 83 CLARK 90 16 17 MS LF 1 PH CH AT AR AE E MA L 32 CY S 5 MG LL C TA BL ET 00 12 01 0 10 1 ME 13 GA Ac TA 90 -1 -1 .0 D 58 IN ti MS 40 5- 0- 00 CA 30 EY ve N 52 20 20 RE 23 C 38 16 17 MS 50 0 PH CH 0 AR AE MG MA L CY S TA BL LL ET C ZI 00 12 12 0 10 1 ME 13 GA Ac NC 90 -1 -3 .0 D 53 IN ti 43 7- 0- 00 CA 28 EY ve GL 19 20 20 RE 54 UC 16 16 16 MS ON 0 PH CH AT AR AE E MA L 50 CY S MG LL C TA BL ET LO 00 09 12 0 30 30 ME 13 GA Ac RA 78 -0 -2 0. D 50 IN ti TA 15 1- 6- 00 CA 21 EY ve DI 07 20 20 0 RE 30 NE 70 16 16 MS 1 PH CH 10 AR AE MA L MG CY S TA LL BL C ET 00 07 12 0 30 30 ME 13 GA Ac TA 53 -2 -1 0. D 45 IN ti MS 63 5- 7- 00 CA 89 EY ve N 79 20 20 0 RE 62 D3 00 16 16 MS 1 PH CH 2, AR AE 00 MA L 0 CY S UN IT LL C SO FT GE L ZI 00 12 12 0 14 14 ME 13 GA Ac NC 90 -1 -1 0. D 46 IN ti 43 7- 7- 00 CA 89 EY ve GL 19 20 20 0 RE 55 UC 16 16 16 MS ON 0 PH CH AT AR AE E MA L 50 CY S MG LL C TA BL ET 00 09 12 0 30 30 ME 13 GA Ac PI 53 -1 -1 0. D 45 IN ti RI 61 9- 7- 00 CA 89 EY ve N 00 20 20 0 RE 61 EC 44 16 16 MS 1 PH CH 81 AR AE MA L MG CY S TA LL BL C ET ST 00 02 12 0 30 30 ME 13 GA Ac OO 53 -2 -1 0. D 45 IN ti L 61 3- 6- 00 CA 28 EY ve SO 06 20 20 0 RE 42 FT 41 16 16 MS EN 0 PH CH ER AR AE MA L 25 CY S 0 MG LL C SO FT GE L 00 12 12 0 30 30 ME 13 GA Ac TA 90 -1 -1 0. D 45 IN ti MS 40 5- 5- 00 CA 69 EY ve N 52 20 20 0 RE 93 C 38 16 16 MS 50 0 PH CH 0 AR AE MG MA L CY S TA BL LL ET C SE 00 09 12 0 12 30 ME 13 GA Ac NN 90 -1 -1 00 D 46 IN ti A- 46 9- 5- .0 CA 00 EY ve LA 52 20 20 00 RE 68 X 26 16 16 MS 8. 1 PH CH 6 AR AE MG MA L CY S TA BL LL ET C 00 06 12 0 30 30 ME 13 GA Ac TA 90 -1 -1 0. D 44 IN ti MS 45 0- 4- 00 CA 20 EY ve N 04 20 20 0 RE 08 AN 26 16 16 MS D 0 PH CH MS AR AE NE MA L RA CY S LS LL TA C BL ET FE 00 09 12 0 30 30 ME 13 GA Ac RR 53 -1 -1 0. D 44 IN ti OU 61 9- 4- 00 CA 97 EY ve S 00 20 20 0 RE 74 CLARK 90 16 16 MS LF 1 PH CH AT AR AE E MA L 32 CY S 5 MG LL C TA BL ET LO 00 09 11 0 30 30 ME 13 GA Ac RA 78 -0 -2 0. D 35 IN ti TA 15 1- 8- 00 CA 75 EY ve DI 07 20 20 0 RE 27 NE 70 16 16 MS 1 PH CH 10 AR AE MA L MG CY S TA LL BL C ET BA 00 11 11 0 28 7 ME 13 GA Ac CI 16 -1 -2 3. D 36 IN ti TR 80 7- 6- 50 CA 23 EY ve AC 02 20 20 0 RE 22 IN 13 16 16 MS -P 1 PH CH OL AR AE YM MA L YX CY S IN LL OI C NT ME NT SE 00 09 11 0 12 30 ME 13 GA Ac NN 90 -1 -2 00 D 32 IN ti A- 46 9- 1- .0 CA 02 EY ve LA 52 20 20 00 RE 30 X 26 16 16 MS 8. 1 PH CH 6 AR AE MG MA L CY S TA BL LL ET C 00 09 11 0 30 30 ME 13 GA Ac PI 53 -1 -1 0. D 30 IN ti RI 61 9- 8- 00 CA 83 EY ve N 00 20 20 0 RE 45 EC 44 16 16 MS 1 PH CH 81 AR AE MA L MG CY S TA LL BL C ET FE 00 09 11 0 30 30 ME 13 GA Ac RR 53 -1 -1 0. D 30 IN ti OU 61 9- 8- 00 CA 83 EY ve S 00 20 20 0 RE 46 CLARK 90 16 16 MS LF 1 PH CH AT AR AE E MA L 32 CY S 5 MG LL C TA BL ET 00 07 11 0 30 30 ME 13 GA Ac TA 53 -2 -1 0. D 30 IN ti MS 63 5- 8- 00 CA 83 EY ve N 79 20 20 0 RE 49 D3 00 16 16 MS 1 PH CH 2, AR AE 00 MA L 0 CY S UN IT LL C SO FT GE L ST 00 02 11 0 30 30 ME 13 GA Ac OO 53 -2 -1 0. D 29 IN ti L 61 3- 7- 00 CA 93 EY ve SO 06 20 20 0 RE 73 FT 41 16 16 MS EN 0 PH CH ER AR AE MA L 25 CY S 0 MG LL C SO FT GE L BA 00 11 11 0 28 14 ME 13 GA Ac CI 16 -1 -1 3. D 31 IN ti TR 80 7- 7- 50 CA 32 EY ve AC 02 20 20 0 RE 58 IN 13 16 16 MS -P 1 PH CH OL AR AE YM MA L YX CY S IN LL OI C NT ME NT 00 06 11 0 30 30 ME 13 GA Ac TA 90 -1 -1 0. D 27 IN ti MS 45 0- 4- 00 CA 96 EY ve N 04 20 20 0 RE 19 AN 26 16 16 MS D 0 PH CH MS AR AE NE MA L RA CY S LS LL TA C BL ET LO 00 09 10 0 30 30 ME 13 GA Ac RA 78 -0 -2 0. D 19 IN ti TA 15 1- 8- 00 CA 67 EY ve DI 07 20 20 0 RE 75 NE 70 16 16 MS 1 PH CH 10 AR AE MA L MG CY S TA LL BL C ET SE 00 09 10 0 12 30 ME 13 GA Ac NN 90 -1 -2 00 D 16 IN ti A- 46 9- 2- .0 CA 73 EY ve LA 52 20 20 00 RE 99 X 26 16 16 MS 8. 1 PH CH 6 AR AE MG MA L CY S TA BL LL ET C 00 07 10 0 30 30 ME 13 GA Ac TA 53 -2 -2 0. D 16 IN ti MS 63 5- 1- 00 CA 09 EY ve N 79 20 20 0 RE 46 D3 00 16 16 MS 1 PH CH 2, AR AE 00 MA L 0 CY S UN IT LL C SO FT GE L 00 09 10 0 30 30 ME 13 GA Ac PI 53 -1 -2 0. D 15 IN ti RI 61 9- 0- 00 CA 55 EY ve N 00 20 20 0 RE 55 EC 44 16 16 MS 1 PH CH 81 AR AE MA L MG CY S TA LL BL C ET FE 00 09 10 0 30 30 ME 13 GA Ac RR 53 -1 -2 0. D 15 IN ti OU 61 9- 0- 00 CA 55 EY ve S 00 20 20 0 RE 56 CLARK 90 16 16 MS LF 1 PH CH AT AR AE E MA L 32 CY S 5 MG LL C TA BL ET ST 00 02 10 0 30 30 ME 13 GA Ac OO 53 -2 -1 0. D 14 IN ti L 61 3- 9- 00 CA 82 EY ve SO 06 20 20 0 RE 28 FT 41 16 16 MS EN 0 PH CH ER AR AE MA L 25 CY S 0 MG LL C SO FT GE L 00 11 10 0 30 30 ME 13 GA Ac TA 90 -0 -1 0. D 13 IN ti MS 45 5- 5- 00 CA 15 EY ve N 04 20 20 0 RE 57 AN 26 15 16 MS D 0 PH CH MS AR AE NE MA L RA CY S LS LL TA C BL ET LO 00 09 09 0 30 30 ME 13 GA Ac RA 78 -0 -2 0. D 03 IN ti TA 15 1- 9- 00 CA 49 EY ve DI 07 20 20 0 RE 14 NE 70 16 16 MS 1 PH CH 10 AR AE MA L MG CY S TA LL BL C ET SE 00 09 09 0 12 30 ME 13 GA Ac NN 90 -1 -2 00 D 00 IN ti A- 46 9- 3- .0 CA 42 EY ve LA 52 20 20 00 RE 47 X 26 16 16 MS 8. 1 PH CH 6 AR AE MG MA L CY S TA BL LL ET C 00 09 09 0 30 30 ME 13 GA Ac PI 53 -1 -2 0. D 00 IN ti RI 61 9- 2- 00 CA 79 EY ve N 00 20 20 0 RE 87 EC 44 16 16 MS 1 PH CH 81 AR AE MA L MG CY S TA LL BL C ET FE 00 09 09 0 30 30 ME 13 GA Ac RR 53 -1 -2 0. D 00 IN ti OU 61 9- 2- 00 CA 79 EY ve S 00 20 20 0 RE 89 CLARK 90 16 16 MS LF 1 PH CH AT AR AE E MA L 32 CY S 5 MG LL C TA BL ET 00 07 09 0 30 30 ME 12 GA Ac TA 53 -2 -2 0. D 99 IN ti MS 63 5- 1- 00 CA 05 EY ve N 79 20 20 0 RE 58 D3 00 16 16 MS 1 PH CH 2, AR AE 00 MA L 0 CY S UN IT LL C SO FT GE L ST 00 02 09 0 30 30 ME 12 GA Ac OO 53 -2 -1 0. D 97 IN ti L 61 3- 9- 00 CA 85 EY ve SO 06 20 20 0 RE 93 FT 41 16 16 MS EN 0 PH CH ER AR AE MA L 25 CY S 0 MG LL C SO FT GE L 00 11 09 0 30 30 ME 12 GA Ac TA 90 -0 -1 0. D 96 IN ti MS 45 5- 6- 00 CA 80 EY ve N 04 20 20 0 RE 50 AN 26 15 16 MS D 0 PH CH MS AR AE NE MA L RA CY S LS LL TA C BL ET LO 00 09 09 0 30 30 ME 12 GA Ac RA 78 -0 -0 0. D 90 IN ti TA 15 1- 1- 00 CA 04 EY ve DI 07 20 20 0 RE 71 NE 70 16 16 MS 1 PH CH 10 AR AE MA L MG CY S TA LL BL C ET SE 00 10 08 0 12 30 ME 12 GA Ac NN 90 -2 -2 00 D 84 IN ti A- 46 9- 5- .0 CA 88 EY ve LA 52 20 20 00 RE 51 X 26 15 16 MS 8. 1 PH CH 6 AR AE MG MA L CY S TA BL LL ET C 00 07 08 0 30 30 ME 12 GA Ac TA 53 -2 -2 0. D 82 IN ti MS 63 5- 2- 00 CA 65 EY ve N 79 20 20 0 RE 09 D3 00 16 16 MS 1 PH CH 2, AR AE 00 MA L 0 CY S UN IT LL C SO FT GE L ST 00 02 08 0 30 30 ME 12 GA Ac OO 53 -2 -2 0. D 83 IN ti L 61 3- 2- 00 CA 20 EY ve SO 06 20 20 0 RE 28 FT 41 16 16 MS EN 0 PH CH ER AR AE MA L 25 CY S 0 MG LL C SO FT GE L FE 00 10 08 0 30 30 ME 12 GA Ac RR 53 -1 -2 0. D 81 IN ti OU 61 0- 0- 00 CA 18 EY ve S 00 20 20 0 RE 40 CLARK 90 15 16 MS LF 1 PH CH AT AR AE E MA L 32 CY S 5 MG LL C TA BL ET 00 11 08 0 30 30 ME 12 GA Ac TA 90 -0 -1 0. D 79 IN ti MS 45 5- 7- 00 CA 28 EY ve N 04 20 20 0 RE 11 AN 26 15 16 MS D 0 PH CH MS AR AE NE MA L RA CY S LS LL TA C BL ET 00 10 08 0 30 30 ME 12 GA Ac PI 60 -0 -1 0. D 77 IN ti RI 30 9- 5- 00 CA 97 EY ve N 02 20 20 0 RE 73 EC 63 15 16 MS 2 PH CH 81 AR AE MA L MG CY S TA LL BL C ET MA 00 10 08 0 11 14 ME 12 GA Ac PA 90 -1 -0 20 D 74 IN ti P 41 0- 5- .0 CA 68 EY ve 50 98 20 20 00 RE 78 0 86 15 16 MS MG 1 PH CH AR AE TA MA L BL CY S ET LL C 00 07 07 0 30 30 ME 12 GA Ac TA 90 -2 -2 0. D 70 IN ti MS 40 8- 8- 00 CA 32 EY ve N 52 20 20 0 RE 12 C 38 16 16 MS 50 0 PH CH 0 AR AE MG MA L CY S TA BL LL ET C SE 00 10 07 0 12 30 ME 12 GA Ac NN 90 -2 -2 00 D 68 IN ti A- 46 9- 6- .0 CA 52 EY ve LA 52 20 20 00 RE 91 X 26 15 16 MS 8. 1 PH CH 6 AR AE MG MA L CY S TA BL LL ET C 00 07 07 0 30 30 ME 12 GA Ac TA 53 -2 -2 0. D 69 IN ti MS 63 5- 5- 00 CA 13 EY ve N 79 20 20 0 RE 18 D3 00 16 16 MS 1 PH CH 2, AR AE 00 MA L 0 CY S UN IT LL C SO FT GE L FE 00 10 07 0 30 30 ME 12 GA Ac RO 90 -1 -2 0. D 67 IN ti CLARK 47 0- 2- 00 CA 26 EY ve L 59 20 20 0 RE 65 32 08 15 16 MS 5 2 PH CH MG AR AE MA L TA CY S BL ET LL C BI 00 03 07 0 15 15 ME 12 GA Ac SC 90 -1 -1 0. D 66 IN ti OL 45 0- 8- 00 CA 34 EY ve AX 05 20 20 0 RE 86 86 16 16 MS 10 0 PH CH AR AE MG MA L CY S CLARK PP LL OS C IT OR Y 00 11 07 0 30 30 ME 12 GA Ac TA 90 -0 -1 0. D 65 IN ti MS 45 5- 8- 00 CA 97 EY ve N 04 20 20 0 RE 60 AN 26 15 16 MS D 0 PH CH MS AR AE NE MA L RA CY S LS LL TA C BL ET 00 10 07 0 30 30 ME 12 GA Ac PI 60 -0 -1 0. D 65 IN ti RI 30 9- 6- 00 CA 73 EY ve N 02 20 20 0 RE 27 EC 63 15 16 MS 2 PH CH 81 AR AE MA L MG CY S TA LL BL C ET ST 00 02 07 0 30 30 ME 12 GA Ac OO 53 -2 -1 0. D 63 IN ti L 61 3- 1- 00 CA 34 EY ve SO 06 20 20 0 RE 73 FT 41 16 16 MS EN 0 PH CH ER AR AE MA L 25 CY S 0 MG LL C SO FT GE L SE 00 10 06 0 12 30 ME 12 GA Ac NN 90 -2 -2 00 D 58 IN ti A- 46 9- 7- .0 CA 07 EY ve LA 52 20 20 00 RE 66 X 26 15 16 MS 8. 1 PH CH 6 AR AE MG MA L CY S TA BL LL ET C FE 00 10 06 0 30 30 ME 12 GA Ac RO 90 -1 -2 0. D 56 IN ti CLARK 47 0- 2- 00 CA 63 EY ve L 59 20 20 0 RE 47 32 08 15 16 MS 5 2 PH CH MG AR AE MA L TA CY S BL ET LL C 00 11 06 0 30 30 ME 12 GA Ac TA 90 -0 -1 0. D 55 IN ti MS 45 5- 8- 00 CA 21 EY ve N 04 20 20 0 RE 00 AN 26 15 16 MS D 0 PH CH MS AR AE NE MA L RA CY S LS LL TA C BL ET 00 10 06 0 30 30 ME 12 GA Ac PI 60 -0 -1 0. D 54 IN ti RI 30 9- 7- 00 CA 90 EY ve N 02 20 20 0 RE 56 EC 63 15 16 MS 2 PH CH 81 AR AE MA L MG CY S TA LL BL C ET BI 00 03 06 0 15 15 ME 12 GA Ac SC 90 -1 -1 0. D 55 IN ti OL 45 0- 7- 00 CA 42 EY ve AX 05 20 20 0 RE 04 86 16 16 MS 10 0 PH CH AR AE MG MA L CY S CLARK PP LL OS C IT OR Y ST 00 02 06 0 30 30 ME 12 GA Ac OO 53 -2 -1 0. D 53 IN ti L 61 3- 3- 00 CA 62 EY ve SO 06 20 20 0 RE 57 FT 41 16 16 MS EN 0 PH CH ER AR AE MA L 25 CY S 0 MG LL C SO FT GE L SE 00 10 05 0 12 30 ME 12 GA Ac NN 90 -2 -2 00 D 48 IN ti A 45 9- 8- .0 CA 35 EY ve 8. 16 20 20 00 RE 71 6 56 15 16 MS MG 1 PH CH AR AE TA MA L BL CY S ET LL C FE 00 10 05 0 30 30 ME 12 GA Ac RO 90 -1 -2 0. D 45 IN ti CLARK 47 0- 3- 00 CA 78 EY ve L 59 20 20 0 RE 37 32 08 15 16 MS 5 2 PH CH MG AR AE MA L TA CY S BL ET LL C BI 00 03 05 0 15 15 ME 12 GA Ac SC 90 -1 -2 0. D 46 IN ti OL 45 0- 1- 00 CA 12 EY ve AX 05 20 20 0 RE 33 86 16 16 MS 10 0 PH CH AR AE MG MA L CY S CLARK PP LL OS C IT OR Y 00 11 05 0 30 30 ME 12 GA Ac TA 90 -0 -2 0. D 45 IN ti MS 45 5- 0- 00 CA 09 EY ve N 04 20 20 0 RE 35 AN 26 15 16 MS D 0 PH CH MS AR AE NE MA L RA CY S LS LL TA C BL ET 00 10 05 0 30 30 ME 12 GA Ac PI 60 -0 -1 0. D 44 IN ti RI 30 9- 8- 00 CA 30 EY ve N 02 20 20 0 RE 82 EC 63 15 16 MS 2 PH CH 81 AR AE MA L MG CY S TA LL BL C ET TR 45 05 05 0 85 15 ME 12 GA Ac OL 80 -1 -1 0. D 44 IN ti AM 20 7- 7- 00 CA 21 EY ve IN 35 20 20 0 RE 63 E 65 16 16 MS SA 3 PH CH LI AR AE CY MA L LA CY S TE LL 10 C % CR EA M ST 00 02 05 0 30 30 ME 12 GA Ac OO 53 -2 -1 0. D 42 IN ti L 61 3- 3- 00 CA 78 EY ve SO 06 20 20 0 RE 12 FT 41 16 16 MS EN 0 PH CH ER AR AE MA L 25 CY S 0 MG LL C SO FT GE L SE 00 10 04 0 12 30 ME 12 GA Ac NN 90 -2 -2 00 D 38 IN ti A 45 9- 9- .0 CA 00 EY ve 8. 16 20 20 00 RE 41 6 56 15 16 MS MG 1 PH CH AR AE TA MA L BL CY S ET LL C FE 00 10 04 0 30 30 ME 12 GA Ac RO 90 -1 -2 0. D 36 IN ti CLARK 47 0- 5- 00 CA 33 EY ve L 59 20 20 0 RE 19 32 08 15 16 MS 5 2 PH CH MG AR AE MA L TA CY S BL ET LL C 00 11 04 0 30 30 ME 12 GA Ac TA 90 -0 -2 0. D 34 IN ti MS 45 5- 1- 00 CA 77 EY ve N 04 20 20 0 RE 79 AN 26 15 16 MS D 0 PH CH MS AR AE NE MA L RA CY S LS LL TA C BL ET 00 10 04 0 30 30 ME 12 GA Ac PI 60 -0 -1 0. D 33 IN ti RI 30 9- 8- 00 CA 77 EY ve N 02 20 20 0 RE 74 EC 63 15 16 MS 2 PH CH 81 AR AE MA L MG CY S TA LL BL C ET ST 00 02 04 0 30 30 ME 12 GA Ac OO 53 -2 -1 0. D 33 IN ti L 61 3- 5- 00 CA 32 EY ve SO 06 20 20 0 RE 30 FT 41 16 16 MS EN 0 PH CH ER AR AE MA L 25 CY S 0 MG LL C SO FT GE L SE 00 10 03 0 12 30 ME 12 GA Ac NN 90 -2 -3 00 D 27 IN ti A 45 9- 0- .0 CA 50 EY ve 8. 16 20 20 00 RE 78 6 56 15 16 MS MG 1 PH CH AR AE TA MA L BL CY S ET LL C FE 00 10 03 0 30 30 ME 12 GA Ac RO 90 -1 -2 0. D 27 IN ti CLARK 47 0- 9- 00 CA 31 EY ve L 59 20 20 0 RE 11 32 08 15 16 MS 5 2 PH CH MG AR AE MA L TA CY S BL ET LL C 00 11 03 0 30 30 ME 12 GA Ac TA 90 -0 -2 0. D 26 IN ti MS 45 5- 4- 00 CA 13 EY ve N 04 20 20 0 RE 04 AN 26 15 16 MS D 0 PH CH MS AR AE NE MA L RA CY S LS LL TA C BL ET ST 00 02 03 0 30 30 ME 12 GA Ac OO 53 -2 -2 0. D 24 IN ti L 61 3- 2- 00 CA 91 EY ve SO 06 20 20 0 RE 08 FT 41 16 16 MS EN 0 PH CH ER AR AE MA L 25 CY S 0 MG LL C SO FT GE L 00 10 03 0 30 30 ME 12 GA Ac PI 60 -0 -2 0. D 25 IN ti RI 30 9- 1- 00 CA 14 EY ve N 02 20 20 0 RE 48 EC 63 15 16 MS 2 PH CH 81 AR AE MA L MG CY S TA LL BL C ET BI 00 03 03 0 15 15 ME 12 GA Ac SC 90 -1 -1 0. D 21 IN ti OL 45 0- 0- 00 CA 54 EY ve AX 05 20 20 0 RE 70 86 16 16 MS 10 0 PH CH AR AE MG MA L CY S CLARK PP LL OS C IT OR Y SE 00 10 02 0 12 30 ME 12 GA Ac NN 90 -2 -2 00 D 17 IN ti A 45 9- 9- .0 CA 54 EY ve 8. 16 20 20 00 RE 30 6 56 15 16 MS MG 1 PH CH AR AE TA MA L BL CY S ET LL C FE 00 10 02 0 30 30 ME 12 GA Ac RO 90 -1 -2 0. D 17 IN ti CLARK 47 0- 9- 00 CA 54 EY ve L 59 20 20 0 RE 28 32 08 15 16 MS 5 2 PH CH MG AR AE MA L TA CY S BL ET LL C 00 11 02 0 30 30 ME 12 GA Ac TA 90 -0 -2 0. D 16 IN ti MS 45 5- 6- 00 CA 76 EY ve N 04 20 20 0 RE 44 AN 26 15 16 MS D 0 PH CH MS AR AE NE MA L RA CY S LS LL TA C BL ET 00 10 02 0 30 30 ME 12 GA Ac PI 60 -0 -2 0. D 16 IN ti RI 30 9- 6- 00 CA 76 EY ve N 02 20 20 0 RE 41 EC 63 15 16 MS 2 PH CH 81 AR AE MA L MG CY S TA LL BL C ET ST 00 02 02 0 30 30 ME 12 GA Ac OO 53 -2 -2 0. D 16 IN ti L 61 3- 3- 00 CA 16 EY ve SO 06 20 20 0 RE 99 FT 41 16 16 MS EN 0 PH CH ER AR AE MA L 25 CY S 0 MG LL C SO FT GE L NO 64 02 02 0 30 5 ME 12 GA Ac RM 25 -1 -1 00 D 14 IN ti AL 30 9- 9- .0 CA 72 EY ve 11 20 20 00 RE 74 SA 13 16 16 MS LI 0 PH CH NE AR AE MA L FL CY S US H LL SY C RI NG E HE 64 02 02 0 10 5 ME 12 GA Ac PA 25 -1 -1 00 D 14 IN ti RI 30 9- 9- .0 CA 72 EY ve N 33 20 20 00 RE 75 50 33 16 16 MS 0 5 PH CH UN AR AE IT MA L /5 CY S ML LL C (1 00 /M L) NI 00 10 10 0 30 1 ME 11 GA Ac TR 28 -0 -0 0. D 70 IN ti O- 10 2- 2- 00 CA 90 EY ve BI 32 20 20 0 RE 44 D 63 15 15 MS 2% 0 PH CH AR AE OI MA L NT CY S ME NT LL C MO 00 10 10 0 30 15 ME 11 GA Ac RP 40 -0 -0 0. D 70 IN ti HI 68 1- 1- 00 CA 82 EY ve NE 31 20 20 0 RE 36 50 15 15 MS CLARK 1 PH CH LF AR AE MA L ER CY S 15 LL C MG TA BL ET NO 00 10 10 0 10 15 ME 11 GA Ac VO 16 -0 -0 00 D 70 IN ti FI 91 1- 1- .0 CA 82 EY ve NE 85 20 20 00 RE 35 27 15 15 MS AU 5 PH CH TO AR AE CO MA L VE CY S R 30 LL G C NE ED LE MA 00 09 09 0 19 3 ME 11 GA Ac PA 90 -1 -2 0. D 69 IN ti P 41 1- 8- 00 CA 64 EY ve 50 98 20 20 0 RE 31 0 86 15 15 MS MG 1 PH CH AR AE TA MA L BL CY S ET LL C 00 09 09 0 13 13 ME 11 GA Ac TA 90 -1 -1 0. D 66 IN ti MS 45 7- 7- 00 CA 15 EY ve N 04 20 20 0 RE 56 AN 26 15 15 MS D 0 PH CH MS AR AE NE MA L RA CY S LS LL TA C BL ET FE 00 09 09 0 30 30 ME 11 GA Ac RR 60 -1 -1 0. D 66 IN ti OU 30 7- 7- 00 CA 15 EY ve S 17 20 20 0 RE 57 CLARK 92 15 15 MS LF 9 PH CH AT AR AE E MA L 32 CY S 5 MG LL C TA BL ET 63 09 09 0 20 20 ME 11 GA Ac PI 73 -1 -1 0. D 64 IN ti RI 90 1- 1- 00 CA 99 EY ve N 43 20 20 0 RE 10 81 40 15 15 MS 1 PH CH MG AR AE MA L CH CY S EW AB LL LE C TA BL ET CA 68 03 09 0 18 90 WA 73 SM Ac RV 46 -1 -0 00 L- 69 IT ti ED 20 0- 3- .0 MA 55 H ve IL 16 20 20 00 RT 9 MS OL 50 15 15 KE 5 PH [...] -0 -0 0. L- 67 RS ti MS 96 4- 3- 00 MA 45 ON [...] 15 15 EU E 5 PH GO OH AR ND OP MA A CY F 50 # MC 10 G 05 SP 91 RA Y CL 16 03 08 7 30 30 KM 68 SM Ac OP 72 -1 -1 0. AR 59 IT ti ID 90 0- 2- 00 T 40 H ve OG 21 20 20 0 PH 5 MS RE 81 15 15 AR KE L 5 MA L 75 CY D # MG 48 TA 47 BL ET LE 00 12 08 11 15 30 KM 68 PA Ac VE 16 -0 -0 0. AR 56 RS ti MS 96 4- 5- 00 T 02 ON [...] 6- 4- 00 T 23 ON ve MS 21 20 20 0 PH 7 S DE 61 14 15 AR JE 0 MA RE 40 CY MY # C MG 48 TA 47 BL ET AT 00 04 08 4 30 30 KM 68 SM Ac OR 37 -0 -0 0. AR 59 IT ti VA 83 7- 4- 00 T [address] 95 20 20 0 PH 7 MS AT 37 15 15 AR KE IN 7 MA L CY D 80 # MG 48 47 TA BL ET OH 59 04 07 11 85 17 KM [...] 6- 8- 00 T 23 ON ve MS 21 20 20 0 PH 7 S DE 61 14 15 AR JE 0 MA RE 40 CY MY # C MG 48 TA 47 BL ET AT 00 04 07 4 30 30 KM 68 SM Ac OR 37 -0 -0 0. AR 59 IT ti VA 83 7- 8- 00 [address] 95 20 20 0 PH 7 MS AT 37 15 15 AR KE IN 7 MA L CY D 80 # MG 48 47 TA BL ET CL 16 03 07 7 30 30 KM 68 SM Ac OP 72 -1 -0 0. AR 59 IT ti ID 90 0- 8- 00 T 40 H ve OG 21 20 20 0 PH 5 MS RE 81 15 15 AR KE L 5 MA L 75 CY D # MG 48 TA 47 BL ET LE 00 12 06 11 15 30 KM 68 PA Ac VE 16 -0 -2 0. AR 56 RS ti MS 96 4- 9- 00 T 02 ON [...] 6- 3- 00 T 23 ON ve MS 21 20 20 0 PH 7 S DE 61 14 15 AR JE 0 MA RE 40 CY MY # C MG 48 TA 47 BL ET CL 16 03 06 7 30 30 KM 68 SM Ac OP 72 -1 -0 0. AR 59 IT ti ID 90 0- 3- 00 T 40 H ve OG 21 20 20 0 PH 5 MS RE 81 15 15 AR KE L 5 MA L 75 CY D # MG 48 TA 47 BL ET AT 00 04 06 4 30 30 KM 68 SM Ac OR 37 -0 -0 0. AR 59 IT ti VA 83 7- 3- 00 T [address] 95 20 20 0 PH 7 MS AT 37 15 15 AR KE IN [...] RE CE CY MY TA # C MS NO 48 PH 47 N 10 -3 [...] 6- 4- 00 T 23 ON ve MS 21 20 20 0 PH 7 S DE 61 14 15 AR JE 0 MA RE 40 CY MY # C MG 48 TA 47 BL ET RO 43 03 05 1 60 30 KM 68 SM Ac PI 54 -1 -0 0. AR 59 IT ti NI 70 0- 4- 00 T 40 H ve RO 27 20 20 0 PH 6 MS LE 11 15 15 AR KE 0 MA L HC CY D L # 2 MG 48 47 TA BL ET AT 00 04 05 4 30 30 KM 68 SM Ac OR 37 -0 -0 0. AR 59 IT ti VA 83 7- 4- 00 T [address] 95 20 20 0 PH 7 MS AT 37 15 15 AR KE IN 7 MA L CY D 80 # MG 48 47 TA BL ET CL 16 03 05 7 30 30 KM 68 SM Ac OP 72 -1 -0 0. AR 59 IT ti ID 90 0- 4- 00 T 40 H ve OG 21 20 20 0 PH 5 MS RE 81 15 15 AR KE L 5 MA L 75 CY D # MG 48 TA 47 BL ET LY 00 04 04 2 90 30 KM 44 PA Ac RI 07 -2 -2 0. AR 55 RS ti CA 11 9- 9- 00 T 04 ON ve 01 20 20 0 PH 0 S 50 36 15 15 AR JE 8 MA RE MG CY MY # C CA PS 48 UL 47 E OH 59 04 04 11 85 17 KM [...] PH 1 1 01 15 15 AR MS 4 MA CH GM CY AE /1 [...] OG 21 20 20 0 PH 5 MS RE 81 15 15 AR KE L 5 MA L 75 CY D # MG 48 TA 47 BL ET RO 43 03 04 1 60 30 KM 68 SM Ac PI 54 -1 -0 0. AR 59 IT ti NI 70 0- 7- 00 T 40 H ve RO 27 20 20 0 PH 6 MS LE 11 15 15 AR KE 0 MA L HC CY D L # 2 MG 48 47 TA BL ET AT 00 04 04 4 30 30 KM 68 SM Ac OR 37 -0 -0 0. AR 59 IT ti VA 83 7- 7- 00 T [address] 95 20 20 0 PH 7 MS AT 37 15 15 AR KE IN [...] ve 01 20 20 0 [place] 38 MS 50 36 15 15 2 KE 8 CL L MG IN D IC CA PS PH UL AR E MA CY LI 00 03 03 1 90 90 KE 52 SM Ac SI 17 -1 -1 0. NT 60 IT ti NO 23 0- 0- 00 UC 92 H ve OH 75 20 20 0 [place] 71 MS IL 98 15 15 6 KE 0 CL L 10 IN D IC MG PH TA AR BL MA ET CY LE 00 03 03 1 15 83 KE 52 SM Ac VE 16 -1 -1 0. NT 60 IT ti MS 96 0- 0- 00 UC 92 H ve R 43 20 20 0 [place] 71 MS FL 81 15 15 8 KE EX 0 CL L TO IN D UC IC H 10 PH 0 AR UN MA IT CY S/ ML AM 00 03 03 0 40 8 KE 52 SM Ac IT 60 -1 -1 .0 NT 60 IT ti RI 32 0- 0- 00 UC 92 H ve PT 21 20 20 [place] 71 MS YL 32 15 15 3 KE IN 1 CL L E IN D HC IC L 25 PH AR MG MA CY TA B RO 23 03 03 0 60 30 KE 52 SM Ac PI 15 -1 -1 0. NT 60 IT ti NI 50 0- 0- 00 UC 92 H ve RO 12 20 20 0 [place] 71 MS LE 40 15 15 2 KE 1 CL L HC IN D L IC 2 MG PH AR TA MA BL CY ET NO 00 03 03 1 15 62 KE 52 SM Ac VO 16 -1 -1 0. NT 60 IT ti LO 96 0- 0- 00 UC 92 H ve G 33 20 20 0 [place] 71 MS 10 91 15 15 7 KE 0 0 CL L UN IN D IT IC S/ ML PH AR FL MA EX CY PE N AT 60 03 03 1 30 30 KE 52 SM Ac OR 50 -1 -1 0. NT 60 IT ti VA 52 0- 0- 00 [place] [address] 67 20 20 0 [place] 72 MS AT 10 15 15 0 KE IN 9 CL L IN D 80 IC MG PH AR TA MA BL CY ET ON 53 03 03 1 10 25 KE 52 SM Ac ET 88 -1 -1 00 NT 60 IT ti OU 50 0- 0- .0 UC 92 H ve CH 24 20 20 00 [place] 73 MS 51 15 15 0 KE UL 0 CL L TR IN D A IC TE ST PH AR ST MA RI CY PS ON 53 03 03 1 10 30 KE 52 SM Ac ET 88 -1 -1 00 NT 60 IT ti OU 50 0- 0- .0 UC 92 H ve CH 14 20 20 00 [place] 72 MS 30 15 15 9 KE DE 1 CL L LI IN D CA IC 33 PH G AR LA MA NC CY ET S CL 55 03 03 2 30 30 KE 52 SM Ac OP 11 -1 -1 0. NT 60 IT ti ID 10 0- 0- 00 UC 92 H ve OG 19 20 20 0 [place] 71 MS RE 69 15 15 9 KE L 0 CL L 75 IN D IC MG PH TA AR BL MA ET CY ON 53 03 03 0 10 30 KE 52 SM Ac ET 88 -1 -1 .0 NT 60 IT ti OU 50 0- 0- 00 UC 92 H ve CH 44 20 20 [place] 72 MS 80 15 15 1 KE UL 1 CL L TR IN D A2 IC GL PH UC AR OS MA E CY SY ST 00 03 03 1 90 90 KE 52 SM Ac PI 60 -1 -1 0. NT 60 IT ti RI 30 0- 0- 00 UC 92 H ve N 02 20 20 0 [place] 71 MS EC 62 15 15 4 KE 2 CL L 81 IN D IC MG PH TA AR BL MA ET CY CA 68 03 03 1 18 90 KE 52 SM Ac RV 38 -1 -1 00 NT 60 IT ti ED 20 0- 0- .0 UC 92 H ve IL 09 20 20 00 [place] 72 MS OL 50 15 15 2 KE 5 CL L 25 IN D IC MG PH TA AR BL MA ET CY FU 00 10 03 11 60 30 KM 68 PA Ac RO 37 -0 -0 0. AR 54 RS ti SE 80 6- 7- 00 T 23 ON ve MS 21 20 20 0 PH 7 S [...] 69 20 20 0 PH 7 S MS 61 14 15 AR KE X 9 [...] 11 60 30 KM 68 PA Ac OH 18 -0 -2 0. AR 53 RS [...] 6- 8- 00 T 23 ON ve MS 21 20 20 0 PH 7 S [...] 11 60 30 KM 68 PA Ac OH 18 -0 -1 0. AR 53 RS [...] 6- 7- 00 T 23 ON ve MS 21 20 20 0 PH 7 S [...] 11 60 30 KM 68 PA Ac OH 18 -0 -1 0. AR 53 RS [...] 6- 1- 00 T 23 ON ve MS 29 20 20 0 PH 7 S [...] 47 MG TA B EN 00 09 10 11 60 30 [...] 11 60 30 KM 68 PA Ac OH 18 -0 -0 0. AR 53 RS [...] 4 MG 48 47 TA BL ET PO 00 10 10 11 60 30 [...] 6- 6- 00 T 23 ON ve MS 29 20 20 0 PH 7 S [...] 5- 7- 00 T 24 ES ve MS 29 20 20 0 PH 4 S [...] 11 60 30 KM 68 PA Ac OH 18 -0 -0 0. AR 53 RS [...] 5- 1- 00 T 24 ES ve MS 21 20 20 0 PH 4 S [...] TE ST [address] RI PS OH 59 06 07 11 85 25 KM [...] -1 -1 0. AR 48 LL ti OH 80 9- 5- 00 T 97 ve [...] 69 20 20 0 PH 7 S MS 61 14 14 AR KE X 9 [...] 5- 0- 00 T 24 ES ve MS 21 20 20 0 PH 4 S [...] L 50 48 47 MG TA B OH 59 06 06 11 85 25 KM [...] -1 -0 0. AR 48 LL ti OH 80 9 9 T 97 ve OL [...] 69 20 20 0 PH 7 S MS 61 14 14 AR KE X 9 [...] 48 RG ti VA 83 1- 1- T [address] 95 20 [...] 5- 1- 00 T 24 ES ve MS 21 20 20 0 PH 4 S [...] 69 20 20 0 PH 7 S MS 61 14 14 AR KE X 9 MA LL 70 CY Y -3 # 0 FL 48 EX 47 PE N SY RN ME 00 09 05 6 60 30 KM 68 CASTELAN Ac TO 37 -1 -0 0. AR 48 LL ti OH 80 9- 5- 00 T 97 ve [...] 5- 2- 00 T 24 ES ve MS 21 20 20 0 PH 4 S [...] 5 IN RA CE IC J TA MS PH NO AR PH MA N CY [...] -1 -2 0. AR 48 LL ti OH 80 9- 7- 00 T 97 ve [...] 5 IN RA CE IC J TA MS PH NO AR PH MA N CY [...] 5- 5- 00 T 24 ES ve MS 21 20 20 0 PH 4 S [...] IN RE CE IC MY TA C MS PH NO AR PH MA N CY [...] 69 20 20 0 PH 2 S MS 61 13 14 AR JE X 9 [...] AR 41 RS ti SE 80 5- 9 T 93 ON ve MS 21 20 20 0 PH 2 S DE 61 13 14 AR JE 0 MA RE 40 CY MY # C MG 48 TA 47 BL ET ME 00 09 01 11 60 30 KM 68 PA Ac TO 37 -1 -2 0. AR 43 RS ti OH 80 9- 9- 00 T 88 ON [...] IN RE CE IC MY TA C MS PH NO AR PH MA N CY [...] 5- 9- 00 T 93 ON ve MS 21 20 20 0 PH 2 S [...] -1 -1 0. AR 43 RS ti OH 80 9- 9- 00 T 88 ON [...] 69 20 20 0 PH 2 S MS 61 13 13 AR JE X 9 [...] 7- 0- 00 T 23 ON ve MS 21 20 20 0 PH 8 S [...] -1 -2 0. AR 43 RS ti OH 80 9- 0- 00 T 88 ON [...] 69 20 20 0 PH 2 S MS 61 13 13 AR JE X 9 [...] -1 -2 0. AR 43 RS ti OH 80 9- 3- 00 T 88 ON [...] 7- 3- 00 T 23 ON ve MS 21 20 20 0 PH 8 S [...] 39 RS ti RI 32 1- 1- T 86 ON ve PT 21 [...] -1 -1 0. AR 43 RS ti OH 80 9- 9- T 88 ON ve [...] 7- 8- 00 T 23 ON ve MS 21 20 20 0 PH 8 S [...] 7- 6- 00 T 23 ON ve MS 21 20 20 0 PH 8 S [...] 7- 8- 00 T 23 ON ve MS 21 20 20 0 PH 8 S [...] 69 20 20 0 PH 1 S MS 61 12 13 AR JE X 9 [...] 7- 7- 00 T 23 ON ve MS 21 20 20 0 PH 8 S [...] 69 20 20 0 PH 1 S MS 61 12 13 AR JE X 9 [...] 69 20 20 0 PH 1 S MS 61 12 13 AR JE X 9 [...] 7- 5- 00 T 83 ON ve MS 21 20 20 0 PH 2 S [...] 69 20 20 0 PH 1 S MS 61 12 13 AR JE X 9 [...] 7- 8- 00 T 83 ON ve MS 21 20 20 0 PH 2 S [...] 69 20 20 0 PH 1 S MS 61 12 13 AR JE X 9 [...] 4- 7- 00 T 12 ON ve MS 21 20 20 PH 8 S DE [...] # 50 71 74 MG TA B OH 00 10 10 0 21 6 [...] .0 AR 26 RS ti SE 80 8 T 12 ON ve MS 21 20 20 PH 8 S DE 61 11 11 AR JE 0 MA RE 40 CY MY 71 C MG 74 # TA BL 71 ET 74 ME 00 01 09 6 60 30 KM 69 PA Ac TO 09 -0 -2 .0 AR 11 YN ti OH 30 4- 8 T 00 E ve OL 73 20 20 PH 6 VA OL 31 11 11 AR UG 0 MA HN TA CY W RT 71 RA 74 TE # 50 71 74 MG TA B CR 00 09 09 6 30 30 KM 69 PA Ac ES 31 -0 -2 .0 AR 25 YN ti TO 00 8 T 46 E ve R 75 20 20 PH 4 VA 10 19 11 11 AR UG 0 MA HN MG CY W 71 TA 74 BL # ET 71 74 NO 00 06 09 3 15 30 KM 69 JU Ac VO 16 -2 -[address] ti LO 93 8- 00 T 61 IC ve G 69 20 20 PH 3 E MS 61 11 11 AR SA X 9 [...] 4- 1- 00 T 00 E ve MS 21 20 20 PH 9 VA DE [...] G 69 20 20 PH 3 E MS 61 11 11 AR SA X 9 [...] 06 08 2 30 30 KM 69 Ac PI 15 [...] 4- 3- 00 T 00 E ve MS 21 20 20 PH 9 VA DE 61 11 11 AR UG 0 MA HN 40 CY W 71 MG 74 # TA BL 71 ET 74 CR 00 01 08 6 30 30 KM 69 [facility] ES 31 -0 -0 .0 AR 11 YN ti TO 00 4- 3- 00 T 01 E ve R 75 20 20 PH 0 VA 10 19 11 11 AR UG 0 MA HN MG CY W 71 TA 74 BL # ET 71 74 ME 00 01 07 6 60 30 KM 69 [facility] TO 09 -0 -2 .0 AR 11 YN ti OH 30 4- 2- 00 T 00 E ve OL 73 20 20 PH 6 VA OL 31 11 11 AR UG 0 MA HN TA CY W RT 71 RA 74 TE # 50 71 74 MG TA B EN 00 01 07 6 60 30 KM 69 [facility] AL 09 -0 -2 .0 AR 11 YN ti AP 30 4- 2- 00 T 00 E ve RI 02 20 20 PH 8 VA L 81 11 11 AR UG MA 0 MA HN LE CY W AT 71 E 74 10 # MG 71 74 TA B GA 14 04 07 3 60 30 KM 69 [facility] BA 55 -2 -[address] ti PE 00 6- 2- 00 T 54 IC ve NT 51 20 20 PH 2 E IN 20 11 11 AR SA 2 MA RA 30 CY H 0 71 M MG 74 # CA PS 71 UL 74 E FL 00 04 07 3 16 30 KM 69 Ac UT 05 -2 -2 .0 AR [...] G 69 20 20 PH 3 E MS 61 11 11 AR SA X 9 [...] SA 55 RS ti CA 11 1- 00 DE 42 ON ve 01 [...] 4- 0- 00 T 00 E ve MS 21 20 20 PH 9 VA DE [...] G 69 20 20 PH 3 E MS 61 11 11 AR SA X 9 [...] 4- 2- 00 T 00 E ve MS 21 20 20 PH 9 VA DE [...] G 69 20 20 PH 5 Y MS 61 10 11 AR JE X 9 [...] 4- 5- 00 T 00 E ve MS 21 20 20 PH 9 VA DE [...] G 69 20 20 PH 5 Y MS 61 10 11 AR JE X 9 [...] 4- 8- 00 T 00 E ve MS 21 20 20 PH 9 VA DE [...] G 69 20 20 PH 5 Y MS 61 10 11 AR JE X 9 [...] 4- 4- 00 T 00 E ve MS 21 20 20 PH 9 VA DE [...] G 69 20 20 PH 5 Y MS 61 10 11 AR JE X 9 [...] 2- 5- 00 T 18 Y ve MS 21 20 20 PH 5 AZAM DE [...] G 69 20 20 PH 5 Y MS 61 10 11 AR JE X 9 [...] 2- 6- 00 T 18 Y ve MS 21 20 20 PH 5 AZAM DE [...] G 69 20 20 PH 5 Y MS 61 10 10 AR JE X 9 [...] 2- 6- 00 T 18 Y ve MS 21 20 20 PH 5 AZAM DE [...] AR 07 YN ti OH 30 1- 9- 00 T 00 E [...] G 69 20 20 PH 8 TH MS 61 10 10 AR X 9 MA [...] 2- 8- 00 T 18 Y ve MS 21 20 20 PH 5 AZAM DE [...] 2- 1- 00 T 18 Y ve MS 21 20 20 PH 5 AZAM DE [...] G 69 20 20 PH 8 TH MS 61 10 10 AR X 9 MA [...] 2- 3- 00 T 18 Y ve MS 21 20 20 PH 5 AZAM DE [...] 8- 7- 00 T 58 Y ve MS 29 20 20 PH 9 AZAM DE [...] G 69 20 20 PH 3 TH MS 61 10 10 AR X 9 MA [...] 8- 5- 00 T 58 Y ve MS 29 20 20 PH 9 AZAM DE [...] G 69 20 20 PH 3 TH MS 61 10 10 AR X 9 MA [...] Ac NO 90 -2 -2 .0 ON ND ti PH 45 5- 5- 00 OM 27 SO ve EN 55 20 20 Y 2 R [address] RO 25 9 UG BE RT MG CO E MP TA AN BL Y ET IN C TI 00 06 06 30 30 EC 73 WI Ac ZA 37 -2 -2 .0 ON ND ti NI 80 5- 5- 00 OM 27 SO ve DI 72 20 20 Y 3 R NE [address] RO 9 UG BE HC RT L CO E 4 MP MG AN Y TA IN BL C ET DO 00 06 06 30 30 EC 73 WI Ac XE 37 -2 -2 .0 ON ND ti PI 83 5- 5- 00 [...] 8- 6- 00 T 58 Y ve MS 21 20 20 PH 9 AZAM DE [...] G 69 20 20 PH 3 TH MS 61 10 10 AR X 9 MA [...] Ac ZA 37 -2 -2 .0 ON ND ti NI 80 5- 5- 00 [...] 8- 5- 00 T 58 Y ve MS 21 20 20 PH 9 AZAM DE [...] G 69 20 20 PH 1 TH MS 61 10 10 AR X 9 MA [...] 8- 4- 00 T 58 Y ve MS 62 20 20 PH 9 AZAM DE [...] 8 R HO [address] WOOD XA 5 UG BE ZO RT LE CO E -T MP MP AN Y DS IN C TA BL ET FU 63 03 03 5 30 30 KM 68 Ac RO 30 -1 -1 .0 AR 93 HB ti SE 40 8- 8- 00 T 58 Y ve MS 62 20 20 PH 9 AZAM DE [...] 1- 8- 00 T 44 IN ve MS 62 20 20 PH 8 G DE 50 09 10 AR MA 1 MA LE 40 CY SH 71 EA MG 74 # TA BL 71 ET 74 64 03 03 1 30 30 KM 68 Ac 72 -0 -0 .0 AR 92 HB ti 00 5- 5 00 T 77 Y ve 20 20 20 PH 7 AZAM 31 10 10 AR NE 0 MA S CY LA 71 UR 74 A # P 71 74 ME 00 08 03 6 60 30 KM 68 PA Ac TO 09 -3 -0 .0 AR 80 YN ti OH 30 1 T 99 E ve OL 73 20 [...] MA 87 NN ti 25 1- 6- RT 88 IN ve 66 20 20 2 G 46 09 10 PH MA 0 AR LE M SH #7 EA 17 4 EN 00 06 02 02 60 30 K- 68 DU Ac AL 09 -1 -2 .0 MA 76 NN ti AP 30 1- 6- RT 44 IN ve RI 02 20 [...] 76 NN ti UR 39 8- - RT 76 IN ve ID 36 20 20 0 7 G E 40 09 10 PH MA 5 1 AR LE MG M SH #7 EA TA 17 BL 4 ET FU 00 06 02 02 30 30 K- 68 DU Ac RO 37 -1 -1 .0 MA 76 NN ti SE 80 1- 1- 00 RT 44 IN ve MS 21 20 20 8 G DE 61 09 10 PH MA 0 AR LE 40 M SH #7 EA MG 17 4 TA BL ET ME 00 08 02 05 60 30 K- 68 PA Ac TO 09 -3 -1 .0 MA 80 YN ti OH 30 1- - 00 RT 99 E ve OL 73 20 20 6 VA OL 31 09 10 PH UG 0 AR HN TA M W RT #7 RA 17 TE 4 50 MG TA B LY 00 02 00 12 30 EC [...] IN C TA BL ET DO 00 02 00 90 30 EC [...] -0 .0 AR 10 NN ti 93 8 8- 00 T 13 IN ve 47 [...] 1- 4- 00 RT 44 IN ve MS 21 20 20 8 G DE 61 [...] BL 17 ET 4 AC 64 06 01 01 30 [...] SH #7 EA 17 4 TR 65 12 01 00 90 30 EC 46 WI Ac AM 16 -2 -1 .0 ON 87 ND ti AD 20 9- 4- 00 OM 52 SO ve OL 62 20 20 Y 1 R [address] RO HC 1 UG BE L RT 50 CO E MG IN C TA BL ET 00 12 00 15 30 EC 46 WI Ac 59 -2 -1 0. ON 87 ND ti 10 9- 4- 00 OM 52 SO ve 54 20 20 0 Y 0 R [address] RO 5 UG BE RT CO E IN C DO 00 12 00 90 30 EC 73 WI Ac XE 37 -2 -1 .0 ON 07 ND ti PI 83 9- 4- 00 OM 01 SO ve N 12 20 20 Y 3 R [address] RO 1 UG BE MG [...] -3 -1 .0 MA 80 YN ti OH 30 1- 4- 00 RT 99 E ve OL 73 20 20 6 VA OL 31 09 10 PH UG 0 AR HN TA M W RT #7 RA 17 TE 4 50 MG TA B TR 65 11 12 01 9. 3 [...] UL C E LY 00 11 12 01 12 3 [...] -3 -1 .0 MA 80 YN ti OH 30 1- 7- 00 RT 99 E [...] 1- 7- 00 RT 44 IN ve MS 21 20 20 8 G DE 61 [...] 76 NN ti AP 30 1- 7- RT 44 IN ve RI 02 [...] MA 76 NN ti TO 00 8 RT 76 IN ve R 75 20 20 5 G 10 19 09 09 PH MA 0 AR LE MG M SH #7 EA TA 17 BL 4 ET FU 00 06 11 05 30 30 K- 68 DU Ac RO 37 -1 -1 .0 MA 76 NN ti SE 80 8- 9- 00 RT 77 IN ve MS 21 20 20 0 G DE 61 [...] EA BL 17 ET 4 64 06 11 04 30 30 K- [...] -3 -0 .0 MA 80 YN ti OH 80 1- 5- 00 RT 99 E ve OL 03 20 20 6 VA OL 21 09 09 PH UG 0 AR HN TA M W RT #7 RA 17 TE 4 50 MG TA B FU 00 06 10 04 30 30 K- 68 DU Ac RO 37 -1 -2 .0 MA 76 NN ti SE 80 8- 2- 00 RT 77 IN ve MS 21 20 20 0 G DE 61 [...] LE M SH #7 EA 17 4 BU 00 06 10 04 30 30 K- 68 DU Ac SP 37 -1 -2 .0 MA 76 NN ti IR 81 8- 2- 00 RT 76 IN ve ON 15 20 20 3 G E 00 09 09 PH MA HC 1 AR LE L M SH 10 #7 EA 17 MG 4 TA BL ET AC 64 06 10 04 30 30 K- 68 DU Ac TO 76 -1 -2 .0 MA 76 NN ti S 40 8- 2- 00 RT 76 IN ve 45 45 20 20 0 G 12 09 09 PH MA MG 4 AR LE M SH TA #7 EA BL 17 ET 4 DI 00 06 10 04 30 30 K- 68 DU Ac GO 52 -1 -2 .0 MA 76 NN ti X 71 8- 2- 00 RT 76 IN ve 25 32 20 20 4 G 0 50 09 09 PH MA MC 1 AR LE G M SH TA #7 EA BL 17 ET 4 TR 65 09 10 00 96 32 [...] -3 -0 .0 MA 80 YN ti OH 80 1- 8- 00 RT 99 E ve OL 03 20 20 6 VA OL 21 09 09 PH UG 0 AR HN TA M W RT #7 RA 17 TE 4 50 MG TA B DO 00 09 10 00 96 32 [...] E CA PS IN UL C E CR 00 06 09 02 30 30 K- 68 DU Ac ES 31 -1 -2 .0 MA 76 NN ti TO 00 8- 4- 00 RT 76 IN ve R 75 20 20 5 G 10 19 09 09 PH MA 0 AR LE MG M SH #7 EA TA 17 BL 4 ET EN 00 06 09 03 60 30 [...] 8- 4- 00 RT 77 IN ve MS 21 20 20 0 G DE 61 [...] EA BL 17 ET 4 00 06 09 02 15 30 K- [...] -3 -1 .0 MA 80 YN ti OH 80 1- 0- 00 RT 99 E ve OL 03 20 20 6 VA OL 21 09 09 PH UG 0 AR HN TA M W RT #7 RA 17 TE 4 50 MG TA B TR 65 07 09 01 90 30 [...] E CA PS IN UL C E BU 00 06 08 02 30 30 [...] 8- 7- 00 RT 77 IN ve MS 21 20 20 0 G DE 61 [...] TA 17 BL 4 ET 00 06 08 01 15 30 [...] Y 3 R 25 50 09 09 RO 1 [...] -2 -1 .0 MA 58 YN ti OH 80 5- 3- 00 RT 62 E ve OL 03 20 20 2 VA OL 21 08 09 PH UG 0 AR HN TA M W RT #7 RA 17 TE 4 50 MG TA B 00 04 07 03 90 30 K- [...] 8- 0- 00 RT 77 IN ve MS 21 20 20 0 G DE 61 [...] -2 -1 .0 MA 58 YN ti OH 80 5- 6- 00 RT 62 E ve OL 03 20 20 2 VA OL 21 08 09 PH UG 0 AR HN TA M W RT #7 RA 17 TE 4 50 MG TA B TR 65 06 07 00 90 30 [...] 5 R [address] NINA 0 8 UG BE MG RT CO E CA PS IN UL C E TI 55 06 07 00 60 30 EC 72 WI Ac ZA 11 -2 -0 .0 ON 85 ND ti NI 10 4- 2- 00 OM 21 SO ve DI 18 20 20 Y 7 R NE [address] WOOD [...] 8- 2- 00 RT 77 IN ve MS 21 20 20 0 G DE 61 09 09 PH MA 0 AR LE 40 M SH #7 EA MG 17 4 TA BL ET 00 06 07 00 15 30 [...] C TA BL ET ME 00 08 06 09 60 30 K- 68 PA Ac TO 37 -2 -0 .0 MA 58 YN ti OH 80 5- 4- 00 RT 62 E [...] #7 EA 17 TA 4 BL ET CR 00 02 05 02 30 30 K- 68 DU Ac ES 31 -1 -2 .0 MA 68 NN ti TO 00 2- 1- 00 RT 82 IN ve R 75 20 20 0 G 10 19 09 09 PH MA 0 AR LE MG M SH #7 EA TA 17 BL 4 ET EN 64 02 05 03 60 [...] EA BL 17 ET 4 00 01 05 03 12 30 K- [...] 2- 7- 00 RT 52 IN ve MS 00 20 20 0 5 G N 80 09 09 PH MA HC 5 AR LE L M SH 50 #7 EA 0 17 MG 4 TA BL ET FU 00 02 05 03 30 30 K- 68 DU Ac RO 37 -1 -0 .0 MA 68 NN ti SE 80 2- 7- 00 RT 82 IN ve MS 21 20 20 3 G DE 61 09 09 PH MA 0 AR LE 40 M SH #7 EA MG 17 4 TA BL ET NO 00 03 [...] -2 -0 .0 MA 58 YN ti OH 80 5- 7- 00 RT 62 E ve OL 03 20 20 2 VA OL 21 08 09 PH UG 0 AR HN TA M W RT #7 RA 17 TE 4 50 MG TA B TI 55 04 05 00 60 30 EC 72 WI Ac ZA 11 -2 -0 .0 ON 78 ND ti NI 10 4- 7- 00 OM 52 SO ve DI 18 20 20 Y 3 R NE [address] RO 0 UG BE HC RT L CO E 4 MG IN C TA BL ET DO [...] E MG IN C TA BL ET AC 64 01 04 03 [...] SH #7 EA 17 4 EN 64 02 04 02 60 30 K- 68 DU Ac AL 67 -1 -2 .0 MA 68 NN ti AP 90 2- 3- 00 RT 82 IN ve RI 92 20 20 4 G L 60 09 09 PH MA MA 2 AR LE LE M SH AT #7 EA E 17 20 4 MG TA B DI 00 02 04 02 30 30 [...] 2- 3- 00 RT 82 IN ve MS 21 20 20 3 G DE 61 [...] 2- 3- 00 RT 52 IN ve MS 00 20 20 0 5 G N [...] #7 EA 17 TA 4 BL ET CR 00 02 04 01 [...] -2 -0 .0 MA 58 YN ti OH 80 5- 9- 00 RT 62 E ve OL 03 20 20 2 VA OL 21 08 09 PH UG 0 AR HN TA M W RT #7 RA 17 TE 4 50 MG TA B DI 00 02 03 [...] 2- 6- 00 RT 82 IN ve MS 21 20 20 3 G DE 61 [...] 2- 6- 00 RT 52 IN ve MS 00 20 20 0 5 G N [...] -2 -1 .0 MA 58 YN ti OH 80 5- 2- 00 RT 62 E [...] 17 BL 4 ET EN 64 02 02 00 60 [...] BL 17 ET 4 FU 00 02 02 00 30 30 K- 68 DU Ac RO 37 -1 -2 .0 MA 68 NN ti SE 80 2- 6- 00 RT 82 IN ve MS 21 20 20 3 G DE 61 [...] 4 TA BL ET DI 00 02 02 00 30 30 K- 68 DU Ac GO 52 -1 -2 .0 MA 68 NN ti X 71 2- 6- 00 RT 82 IN ve 25 32 20 20 5 G 0 50 09 09 PH MA MC 1 AR LE G M SH TA #7 EA BL 17 ET 4 00 01 02 00 12 30 [...] -2 -1 .0 MA 58 YN ti OH 80 5- 2- 00 RT 62 E [...] 1- 0- 00 RT 23 E ve MS 21 20 20 0 VA DE 61 08 09 PH UG 0 AR HN 40 M W #7 MG 17 4 TA BL ET EN 64 07 01 06 30 30 K- 68 PA Ac AL 67 -2 -3 .0 MA 56 YN ti AP 90 1- 0- 00 RT 22 E ve RI 92 20 20 8 VA L 60 08 09 PH UG MA 2 AR HN LE M W AT #7 E 17 20 4 MG TA B 64 01 01 00 [...] 2- 0- 00 RT 52 IN ve MS 00 20 20 0 5 G N 80 09 09 PH MA HC 5 AR LE L M SH 50 #7 EA 0 17 MG 4 TA BL ET OH 00 01 01 00 24 6 EC [...] 5 17 MG 4 TA BL ET DO 49 09 01 03 30 30 [...] 10 01 01 90 30 K- 44 MS Ac RI 07 -2 -0 .0 MA 53 CK ti CA 11 8- RT 16 ve 01 20 20 6 [...] -2 -0 .0 MA 58 YN ti OH 80 5 RT 62 E ve OL 03 20 20 2 VA OL 21 08 09 PH UG 0 AR HN TA M W RT #7 RA 17 TE 4 50 MG TA B FU 00 07 01 05 30 30 K- 68 PA Ac RO 37 -2 -0 .0 MA 56 YN ti SE 80 1 RT 23 E ve MS 21 20 20 0 VA DE 61 [...] MA 56 YN ti TO 00 1 RT 22 E ve R 75 20 20 7 VA 10 19 08 09 PH UG 0 AR HN MG M W #7 TA 17 BL 4 ET TR 00 12 01 00 12 [...] .0 MA 61 LL ti 00 4- 8 RT 45 IN ve 20 20 20 0 S 41 08 08 PH PA 0 AR TR M IC #7 K 17 W 4 TR 00 10 12 01 12 30 K- 68 MS Ac AM 37 -2 -0 0. MA 62 CK ti AD 84 8- 4 RT 29 ve OL 15 20 20 0 9 GR 10 08 08 PH EG HC 5 AR OR L M Y 50 #7 E 17 MG 4 TA BL ET GL 00 10 12 01 30 30 K- 68 Ac YB 09 -2 -0 .0 MA 61 ND ti UR 39 2- 4- RT 98 UM ve ID 36 20 20 4 AL E 40 08 08 PH LA 5 1 AR MG M GO #7 PI TA 17 K BL 4 ET EN 64 07 12 04 30 30 K- 68 PA Ac AL 67 -2 -0 .0 MA 56 YN ti AP 90 1- 4- RT 22 E ve RI 92 20 20 8 VA L 60 08 08 PH UG MA 2 AR HN LE M W AT #7 E 17 20 4 MG TA B CR 00 07 12 03 30 30 [...] 1- 4- 00 RT 23 E ve MS 21 20 20 0 VA DE 61 08 08 PH UG 0 AR HN 40 M W #7 MG 17 4 TA BL ET ME 00 08 12 03 60 30 K- 68 PA Ac TO 37 -2 -0 .0 MA 58 YN ti OH 80 5- 4- 00 RT 62 E [...] 10 11 00 12 30 K- 44 MS Ac 40 -2 -0 0. MA 53 [...] K BL 4 ET DI 57 07 11 03 30 30 K- 68 PA Ac GO 66 -2 -0 .0 MA 56 YN ti XI 40 1- 7- 00 RT 22 E ve N 44 20 20 9 VA 0. 18 08 08 PH UG 25 8 AR HN M W MG #7 17 TA 4 BL ET CR 00 07 11 02 30 30 K- 68 PA Ac ES 31 -2 -0 .0 MA 56 YN ti TO 00 1- 7- 00 RT 22 E ve R 75 20 20 7 VA 10 19 08 08 PH UG 0 AR HN MG M W #7 TA 17 BL 4 ET LY 00 10 11 00 90 30 K- 44 MS Ac RI 07 -2 -0 .0 MA 53 CK ti CA 11 8- 7- 00 RT 16 ve 01 20 20 6 GR 15 66 08 08 PH EG 0 8 AR OR MG M Y #7 E CA 17 PS 4 UL E TR 00 10 11 00 12 30 K- 68 MS Ac AM 37 -2 -0 0. MA 62 CK ti AD 84 8- 7- 00 RT 29 ve OL 15 20 20 0 9 GR 10 08 08 PH EG HC 5 AR OR L M Y 50 #7 E 17 MG 4 TA BL ET EN 64 07 11 03 30 [...] 80 1 7- RT 23 E ve MS 21 20 20 0 VA DE 61 08 08 PH UG 0 AR HN 40 M W #7 MG 17 4 TA BL ET ME 00 08 11 02 60 30 K- 68 PA Ac TO 37 -2 -0 .0 MA 58 YN ti OH 80 5- 7- 00 RT 62 E [...] TA CO M BL ET IN C CR 00 07 10 01 30 30 K- 68 PA Ac ES 31 -2 -0 .0 MA 56 YN ti TO 00 RT 22 E ve R 75 20 20 7 VA 10 19 08 08 PH UG 0 AR HN MG M W #7 TA 17 BL 4 ET EN 64 07 10 02 30 30 K- 68 PA Ac AL 67 -2 -0 .0 MA 56 YN ti AP 90 1- 9- RT 22 E ve RI 92 20 20 8 VA L 60 08 08 PH UG MA 2 AR HN LE M W AT #7 E 17 20 4 MG TA B FU 00 07 10 02 30 30 K- 68 PA Ac RO 37 -2 -0 .0 MA 56 YN ti SE 80 1- 9- 00 RT 23 E ve MS 21 20 20 0 VA DE 61 08 08 PH UG 0 AR HN 40 M W #7 MG 17 4 TA BL ET ME 00 08 10 01 60 30 K- 68 PA Ac TO 37 -2 -0 .0 MA 58 YN ti OH 80 5- 9- RT 62 E ve OL 03 20 20 2 VA OL 21 08 08 PH UG 0 AR HN TA M W RT #7 RA 17 TE 4 50 MG TA B DI 57 07 10 02 30 30 K- 68 PA Ac GO 66 -2 -0 .0 MA 56 YN ti XI 40 1- 9- RT 22 E ve N 44 20 20 9 VA 0. 18 08 08 PH UG 25 8 AR HN M W MG #7 17 TA 4 BL ET GL 00 07 10 02 [...] DA 01 AD ti CA 11 2- 1 00 R 91 HY ve 01 20 20 TR AY 15 66 08 08 AC 0 8 E SH MG PH AI M LE CA IN SH PS C P UL E ME 00 08 09 00 60 30 K- 68 PA Ac TO 37 -2 -1 .0 MA 58 YN ti OH 80 5- RT 62 E ve OL 03 20 [...] MA 56 YN ti SE 80 1 RT 23 E ve MS 21 20 20 0 VA DE 61 08 08 PH UG 0 AR HN 40 M W #7 MG 17 4 TA BL ET OX 00 08 09 00 [...] 80 1- 4- RT 23 E ve MS 21 20 20 0 VA DE 61 08 08 PH UG 0 AR HN 40 M W #7 MG 17 4 TA BL ET DI 57 07 08 00 30 30 K- 68 PA Ac GO 66 -2 -1 .0 MA 56 YN ti XI 40 1- 4- RT 22 E ve N 44 20 20 9 VA 0. 18 08 08 PH UG 25 8 AR HN M W MG #7 17 TA 4 BL ET TO 00 06 08 00 60 30 K- 68 BA Ac OH 18 -1 -1 .0 MA 53 IL [...] .0 MA 56 ND ti UR 39 RT 24 UM ve ID 36 20 20 8 AL E 40 08 08 PH LA 5 1 AR MG M GO #7 PI TA 17 K BL 4 ET FL 00 09 20 00 16 30 K- 68 BA Ac UT 05 -1 -1 .0 MA 53 IL ti IC 43 RT 97 EY ve 27 20 20 9 ON 09 08 08 PH CH E 9 AR RI OH M ST OP #7 OP 17 HE 50 4 R M MC G SP RA Y RO 00 09 21 99 30 30 K- 68 BA Ac PI 05 -1 -1 .0 MA 53 IL ti NI 40 RT 97 EY ve RO 11 20 20 8 LE 92 08 08 PH CH 5 AR RI HC M ST L #7 OP 2 17 HE MG 4 R M TA BL ET 00 09 21 99 90 30 K- 68 BA Ac 14 -1 -1 .0 MA 53 IL ti 31 RT 98 EY ve 34 20 20 [...] 4 R BL M ET FU 00 09 20 00 30 30 K- 68 BA Ac RO 37 -1 -1 .0 MA 53 IL ti SE 80 05-23- RT 98 EY ve MS 21 20 20 2 DE 61 08 08 PH CH 0 AR RI [address] #7 OP MG 17 HE 4 R TA M BL ET LY 00 09 21 99 90 30 K- 44 BA Ac RI 07 -1 -1 .0 MA 51 IL ti CA 11 - 7 RT 76 EY ve 01 20 20 7 15 66 08 08 PH CH 0 8 AR RI MG M ST #7 OP CA 17 HE PS 4 R UL M E CR 00 07 00 30 30 K- 68 BA [...] BL 4 R ET M TR 00 06 07 00 30 [...] #7 OP 17 HE 4 R M EN 64 06 07 00 12 30 K- 68 BA Ac AL 67 -1 -0 0. MA 53 IL ti AP 90 2- 3- 00 RT 98 EY ve RI 92 20 20 0 0 L 50 08 08 PH CH MA 2 AR RI LE M ST AT #7 OP E 17 HE 10 4 R M MG TA B TR 00 05 07 01 24 30 K- 68 BA Ac AM 37 -2 -0 0. MA 52 IL ti AD 84 3- 3- 00 RT 83 EY ve OL 15 20 20 0 5 10 08 08 PH CH HC 5 AR RI L M ST 50 #7 OP 17 HE MG 4 R M TA BL ET OH 68 05 06 00 12 4 K- [...] HE BL C R ET M 64 04 06 02 30 30 [...] 4- 5- 00 R 51 Av ve MS 96 20 20 TR ai DE 61 [...] PH e M IN C 00 03 06 02 30 30 [...] e TA M BL IN ET C LY 00 03 06 02 90 [...] 08 AC la E 9 E bl OH PH e OP M IN 50 C [...] 1 IN MG C TA BL ET 00 04 05 01 90 30 CE [...] 4- 8- 00 R 51 Av ve MS 96 20 20 TR ai DE 61 [...] 08 AC la E 9 E bl OH PH e OP M IN 50 C [...] e M TA IN BL C ET CR 00 03 05 01 30 30 CE 33 No Ac ES 31 -2 -0 .0 DA 49 t ti TO 00 4- 8- 00 R 49 Av ve R 75 20 20 TR ai 10 19 08 08 AC la 0 E bl MG PH e M TA IN BL C ET 57 03 05 01 60 30 CE [...] M CA IN PS C UL E 00 03 05 01 60 30 CE 33 No Ac 18 -2 -0 .0 DA 49 t ti 50 4- 8- 00 R 45 Av ve 21 20 20 TR ai 30 08 08 AC la 5 E bl PH e M IN C EN 51 03 04 01 12 30 [...] .0 DA 57 t ti AM 90 8 4 00 R 55 Av ve ET 14 20 20 TR ai HO 60 08 08 AC la XA 1 E bl ZO PH e LE M -T IN MP C DS TA BL ET LY 00 03 04 00 90 30 K- 44 No Ac RI 07 -1 -1 .0 MA 50 t ti CA 11 8- 7- 00 RT 91 Av ve 01 20 20 6 ai 15 66 08 08 PH la 0 8 AR bl MG M e #7 CA 17 PS 4 UL E DI 57 03 04 00 30 30 [...] 48 t ti TO 00 8 7 00 RT 60 Av ve R 75 [...] 8- 7- 00 RT 60 Av ve MS 21 20 20 5 ai DE 61 08 08 PH la 0 AR bl 40 M e #7 MG 17 4 TA BL ET ME 00 03 04 00 60 30 K- 68 No Ac TO 37 -1 -1 .0 MA 48 t ti OH 80 8- 7- 00 RT 60 Av [...] TA #7 BL 17 ET 4 AC 64 03 04 00 30 30 [...] PH e M IN C 00 03 04 00 60 30 CE [...] 4- 0- 00 R 51 Av ve MS 96 20 20 TR ai DE 61 08 08 AC la 0 E bl 40 PH e M MG IN C TA BL ET LO 00 03 04 00 30 30 [...] 08 AC la E 9 E bl OH PH e OP M IN 50 C [...] 3- 0- 00 R 01 Av ve MS 03 20 20 TR ai N 00 08 08 AC la HC 5 E bl L PH e 1, M 00 IN 0 C MG TA BL ET CR 00 03 04 00 30 30 CE 33 No Ac ES 31 -2 -1 .0 DA 49 t ti TO 00 4- 0- 00 R 49 Av ve R 75 20 20 TR ai 10 19 08 08 AC la 0 E bl MG PH e M TA IN BL C ET 49 03 04 00 60 30 CE 33 No Ac 88 -2 -1 .0 DA 49 t ti 40 4- 0- 00 R 47 Av ve 54 20 20 TR ai 40 08 08 AC la 5 E bl PH e M IN C 64 04 04 00 30 30 [...] e CO TA BL IN ET C FU 00 08 03 02 30 30 K- 68 No Ac RO 37 -2 -2 .0 MA 43 t ti SE 80 7- 6- 00 RT 16 Av ve MS 21 20 20 1 ai DE 61 [...] e TA M BL IN ET C TR 00 08 [...] AR bl M e #7 17 4 CR 00 12 03 02 30 30 [...] 17 TA 4 BL ET EN 64 08 03 02 12 30 K- 68 No Ac AL 67 -2 -2 0. MA 43 t ti AP 90 7- 6- 00 RT 17 Av ve RI 92 20 20 0 7 ai L 50 07 08 PH la MA 2 AR bl LE M e AT #7 E 17 10 4 MG TA B ME 68 12 03 02 12 30 CE 33 No Ac TF 38 -2 -2 0. DA 20 t ti OR 20 1- 6- 00 R 69 Av ve MS 02 20 20 0 TR ai N [...] 2 UG bl e CO IN C ME 00 08 03 02 60 30 K- 68 No Ac TO 37 -2 -2 .0 MA 43 t ti OH 80 7- 6- 00 RT 16 Av ve OL 03 20 20 7 ai OL 21 07 08 PH la 0 AR bl TA M e RT #7 RA 17 TE 4 50 MG TA B 00 08 03 01 90 30 K- [...] 17 ET 4 DI 57 08 03 01 30 30 K- 68 No Ac GO 66 -2 -2 .0 MA 43 t ti XI 40 7- 5- 00 RT 16 Av ve N 44 20 20 0 ai 0. 18 07 08 PH la 25 8 AR bl M e MG #7 17 TA 4 BL ET TR 00 08 03 01 30 30 K- 68 No Ac IC 07 -2 -2 .0 MA 43 t ti OR 46 7- 5- 00 RT 16 Av ve 12 20 20 4 ai 14 39 07 08 PH la 5 0 AR bl MG M e #7 TA 17 BL 4 ET ME 68 12 03 01 12 30 CE 33 No Ac TF 38 -2 -2 0. DA 20 t ti OR 20 1- 5- 00 R 69 Av ve MS 02 20 20 0 TR ai N 80 07 08 AC la HC 5 E bl L PH e 50 M 0 IN MG C TA BL ET FU 00 08 03 01 30 30 K- 68 No Ac RO 37 -2 -2 .0 MA 43 t ti SE 80 7- 5- 00 RT 16 Av ve MS 21 20 20 1 ai DE 61 [...] 4 UL E CR 00 12 03 01 30 30 K- 68 No Ac ES 31 -1 -2 .0 MA 43 t ti TO 00 9- 5- 00 RT 15 Av ve R 75 20 20 7 ai 10 19 07 08 PH la 0 AR bl MG M e #7 TA 17 BL 4 ET EN 64 08 03 01 12 30 [...] -2 -2 .0 MA 43 t ti OH 80 7- 5- 00 RT 16 Av ve OL 03 20 20 7 ai OL 21 07 08 PH la 0 AR bl TA M e RT #7 RA 17 TE 4 50 MG TA B AC 00 01 03 [...] retati t Range on Arterial blood gas (03-14-2017 14:37) Arteria = 12.0 -2.4-+2 complet l blood 017 MMOL/L .3 ed base 14:37 excess determi devyn Berkowitz's NON complet test 017 APPLICA ed before 14:37 BLE NON arteria l blood APPLICA gas BLE L Arteria = 39.6 22.0-26 complet l blood 017 MMOL/L .0 ed 14:37 bicarbo elsi measure ment ( Arteria = 97.2 35.0-45 complet l blood 017 MMHG .0 ed 14:37 partial pressur e of carbo Comment: CRITICAL RESULTS Comment: RESULTS CALLED TO: CADENCE 03/14/17 1529 Adri Echevarria Arteria = 7.23 7.35-7. complet l blood 017 MMOL/L 45 ed pH 14:37 measure ment Arteria = 239.5 80-100 complet l whole 017 MMHG ed blood 14:37 PO2 at POC Arteria = 99 % 90-100 complet l blood 017 ed oxygen 14:37 saturat ion calcula SOURCE LEFT complet 017 RADIAL ed 14:37 Arteria = 42.6 23-27 complet l blood 017 MMOL/L ed carbon 14:37 dioxide , total dillan Gas panel in Arterial blood (03-14-2017 14:37) Arteria NON complet l 017 APPLICA ed patency 14:37 BLE Wrist artery --pre arteria l punctur e SOURCE LEFT complet 017 RADIAL ed 14:37 Antibiotic sensitivity studies (03-14-2017 06:22) Amoxici >= 32 complet llin/cl 017 ug/ml ed avulana 06:22 te suscept ibility test by minimum inhibit ory concent ration Ceftazi >= 64 complet dime/po 017 ug/ml ed tassium 06:22 clavula elsi suscept ibility test by minimum inhibit ory concent ration Ceftria = 16 complet xone 017 ug/ml ed suscept 06:22 ibility test by minimum inhibit ory concent ration Cefazol 11-29-2 >= 64 complet in 017 ug/ml ed suscept 06:22 ibility test by minimum inhibit ory concent ration Nitrofu -29-2 <= 16 complet rantoin 017 ug/ml ed 06:22 suscept ibility test by minimum inhibit ory concent ration Gentami -29-2 >= 16 complet [place] 017 ug/ml ed suscept 06:22 ibility test by minimum inhibit ory concent ration Levoflo -29-2 <= 0.12 complet xacin 017 ug/ml ed [...] by minimum inhibit ory concent ration Amoxici 03-14-2 = 8 complet llin/cl 017 ug/ml ed avulana 06:22 te suscept ibility test by minimum inhibit ory concent ration Ceftazi 29-2 <= 1 complet dime/po 017 ug/ml ed tassium 06:22 clavula elsi suscept ibility test by minimum inhibit ory concent ration Ceftria 29-2 <= 1 complet xone 017 ug/ml ed suscept 06:22 ibility test by minimum inhibit ory concent ration Cefazol 29-2 <= 4 complet in 017 ug/ml ed suscept 06:22 ibility test by minimum inhibit ory concent ration Extende 29-2 = ug/ml complet d 017 ed spectru 06:22 m beta lactama se (ESBL) produci ng bacteri a suscept ibility test by minimum inhibit ory Ertapen -29-2 <= 0.5 complet em 017 ug/ml ed suscept 06:22 ibility test by minimum inhibit ory concent ration Cefepim -29-2 <= 1 complet e 017 ug/ml ed suscept 06:22 ibility test by minimum inhibit ory concent ration Nitrofu --2 = 32 complet rantoin 017 ug/ml ed 06:22 suscept ibility test by minimum inhibit ory concent ration Gentami 11-29-2 <= 1 complet [place] 017 ug/ml ed suscept 06:22 ibility test by minimum inhibit ory concent ration Imipene -29-2 <= 0.25 complet m 017 ug/ml ed suscept 06:22 ibility test by minimum inhibit ory concent ration Levoflo 11-29-2 >= 8 complet xacin 017 ug/ml ed suscept 06:22 ibility test by minimum inhibit ory concent ration Ampicil 03-14-2 >= 32 complet kellie/sul 017 ug/ml ed bactam 06:22 suscept ibility test by minimum inhibit ory concent ration Trimeth 03-14-2 >= 320 complet oprim/s 017 ug/ml ed ulfamet 06:22 hoxazol e suscept ibility test by minimum inhibit ory concent ration Tobramy 03-14-2 <= 1 complet saskia 017 ug/ml ed suscept 06:22 ibility test by minimum inhibit ory concent ration Piperac 03-14-2 <= 4 complet illin/t 017 ug/ml ed [...] 06:20 total bilirub in measure m Serum 11-28-2 = 88 7-18 complet or 017 mg/dL ed plasma 06:20 urea nitroge n measure men Comment: NOTIFICATION RESULT Serum 03-13-2 = 8.7 8.5-10. complet or 017 mg/dL 1 ed plasma 06:20 calcium measure ment (mas Serum = 104 98-107 complet or 017 mmoL/L ed plasma 06:20 chlorid e measure ment (mo Carbon = 38 21.0-32 complet dioxide 017 mmoL/L .0 ed 06:20 measure ment Serum 2 = 1.6 0.70-1. complet or 017 mg/dL 30 ed plasma 06:20 creatin ine measure ment ( Estimat = 62 50-200 complet ion of 017 ML/MIN ed creatin 06:20 ine renal clearan ce Estimat = 43 >60 complet ed 017 ML/MIN ed glomeru 06:20 lar filtrat ion rate (GF Comment: REFERENCE RANGE: >60 ML/MIN/1.73 SQUARE METERS Comment: If this patient is -Swiss, then multiply the Comment: result by 1.210. Serum = 5.1 1.3-3.2 complet globuli 017 gm/dL ed n 06:20 measure ment (mass/v olume) Serum = 300 74-106 complet or 017 mg/dL ed plasma 06:20 glucose measure ment (mas Serum = 5.0 3.5-5.1 complet potassi 017 mmoL/L ed um 06:20 measure ment Serum = 143 136-145 complet sodium 017 mmoL/L ed measure 06:20 ment Serum = 15 15-37 complet or 017 U/L [...] 06:20 cyte mean corpusc ular h Automat = 80.5 82.2-97 complet ed 017 fl .8 ed erythro 06:20 cyte mean corpusc ular v Absolut = 0.3 0.1-1.0 complet e 017 K/mm3 ed monocyt 06:20 e count Shasta % = 5.6 % 1.7-9.3 complet 017 ed 06:20 Automat 03-13-2 = 7.9 7.4-10. complet ed 017 fl 4 ed blood 06:20 platele t mean volume dillan Blood = 218 142-424 complet platele 017 K/mm3 ed t count 06:20 Red 2 = 4.50 4.6-6.2 complet blood 017 M/mm3 ed cell 06:20 count Automat 2 = 15.7 11.5-17 complet ed 017 % .5 ed erythro 06:20 cyte distrib ution width Differential panel, method unspecified - (03-13-2017 06:20) Hypochr 03-13-2 2+ 2+ L complet omatic 017 ed red 06:20 blood cell detecti on LYMPH 5 % 10-50 complet 017 ed 06:20 Monocyt = 5 % 2-9 complet e % 017 ed 06:20 Platele NORMAL complet t 017 NORMAL ed estimat 06:20 L e Neutrop = 90 % 42-76 complet hil 017 ed count 06:20 Blood = 100 complet total 017 #CELLS ed cell 06:20 count Differential panel, method unspecified - (03-13-2017 06:20) Hypochr 03-13-2 2+ complet omia 017 ed [Presen 06:20 ce] in Blood LYMPH 5 % 10% - Low complet 017 50% ed 06:20 Platele 2 NORMAL complet ts 017 ed [Presen 06:20 ce] in Blood by Light microsc opy Glucose capillary blood glucometer (03-13-2017 01:09) Glucose 2 = 287 70-110 complet 017 mg/dl ed capilla 01:[address] Glucose capillary blood glucometer (03-12-2017 20:01) Glucose 03-12-2 = 369 70-110 complet 017 mg/dl ed capilla 20:[address] Glucose capillary blood glucometer (03-12-2017 16:42) Glucose 2 = 381 70-110 complet 017 mg/dl ed capilla 16:[address] Glucose capillary blood glucometer (03-12-2017 11:41) Glucose 11-27-2 = 445 70-110 complet 017 mg/dl ed capilla 11:[address] Glucose capillary blood glucometer (03-12-2017 06:33) Glucose 03-12-2 = 270 70-110 complet 017 mg/dl ed capilla 06:[address] Comprehensive metabolic panel (03-12-2017 06:00) Estimat 03-12-2 = 61 50-200 complet ion of 017 ML/MIN ed creatin 06:00 ine renal clearan ce Estimat 2 = 43 >60 complet ed 017 ML/MIN ed glomeru 06:00 lar filtrat ion rate (GF Comment: REFERENCE RANGE: >60 ML/MIN/1.73 SQUARE METERS Comment: If this patient is -Swiss, then multiply the Comment: result by 1.210. Serum 03-12-2 = 5.0 1.3-3.2 complet globuli 017 gm/dL ed n 06:00 measure ment (mass/v olume) Serum 03-12-2 = 301 74-106 complet or 017 mg/dL ed plasma 06:00 glucose measure ment (mas Serum 03-12-2 = 4.7 3.5-5.1 complet potassi 017 mmoL/L ed um 06:00 measure ment Serum 03-12-2 = 141 136-145 complet sodium 017 mmoL/L ed measure 06:00 ment Serum 03-12-2 = 18 15-37 complet or 017 U/L ed plasma 06:00 asparta te aminotr ansfera ALT 03-12-2 = 22 12-78 complet (SGPT) 017 U/L ed ser/mateo 06:00 s Protein 03-12-2 = 7.4 6.4-8.2 complet total 017 gm/dL ed ser/mateo 06:00 s Serum 03-12-2 = 0.5 1.1-1.8 complet or 017 ed plasma 06:00 albumin /globul in mass ra Serum 03-12-2 = 2.4 3.4-5.0 complet or 017 gm/dL ed plasma 06:00 albumin measure ment (mas Serum 03-12-2 = 83 46-116 complet or 017 U/L ed plasma 06:00 alkalin e phospha tase dillan Serum 03-12-2 = 0.2 0.2-1.0 complet or 017 mg/dL ed plasma 06:00 total bilirub in measure m Serum = 94 7-18 complet or 017 mg/dL ed plasma 06:00 urea nitroge n measure men Comment: NOTIFICATION RESULT Comment: Noemi Serum = 8.6 8.5-10. complet or 017 mg/dL 1 ed plasma 06:00 calcium measure ment (mas Serum = 101 98-107 complet or 017 mmoL/L ed plasma 06:00 chlorid e measure ment (mo Carbon = 40 21.0-32 complet dioxide 017 mmoL/L .0 ed 06:00 measure ment Comment: NOTIFICATION RESULT Comment: Noemi Serum = 1.6 0.70-1. complet or 017 mg/dL 30 ed plasma 06:00 creatin ine measure ment ( CBC w auto diff (03-12-2017 06:00) Automat = 0.0 0-0.2 complet ed 017 K/MM3 ed blood 06:00 basophi l count (count/ vo Automat = 0.0 0.0-0.4 complet ed 017 K/mm3 ed blood 06:00 eosinop hil count Automat = 0.3 % 0.1-12. complet ed 017 0 ed blood 06:00 eosinop hils/10 0 leukocy t Blood = 3.7 1.3-8.0 complet granulo 017 K/mm3 ed cytes 06:00 automat ed count (numb Granulo = 87.9 37.0-80 complet cyte 017 % .0 ed percent 06:00 age Blood = 34.0 42.0-52 complet hematoc 017 % .0 ed rit 06:00 (volume fractio n) Blood = 9.7 14.1-18 complet hemoglo 017 g/dL .0 ed bin 06:00 measure ment (mass/v olum Absolut = 0.2 0.7-4.5 complet e 017 K/mm3 ed lymphoc 06:00 yte count Lymphoc = 5.7 % 10-50 complet yte 017 ed count, 06:00 blood, automat ed Baso % 03-12-2 = 0.1 % 0.1-2.0 complet 017 ed 06:00 Mean 2 = 23.3 27-31.2 complet corpusc 017 pg ed ular 06:00 hemoglo bin (MCH) determ Automat = 28.6 31.8-35 complet ed 017 g/dl .4 ed erythro 06:00 cyte mean corpusc ular h Automat = 81.5 82.2-97 complet ed 017 fl .8 ed erythro 06:00 cyte mean corpusc ular v Absolut = 0.3 0.1-1.0 complet e 017 K/mm3 ed monocyt 06:00 e count [place] % = 6.1 % 1.7-9.3 complet 017 ed 06:00 Automat 2 = 8.1 7.4-10. complet ed 017 fl 4 ed blood 06:00 platele t mean volume dillan Blood = 199 142-424 complet platele 017 K/mm3 ed t count 06:00 Red 2 = 4.17 4.6-6.2 complet blood 017 M/mm3 ed cell 06:00 count Automat = 15.6 11.5-17 complet ed 017 % .5 ed erythro 06:00 cyte distrib ution width Blood = 4.2 4.8-10. complet leukocy 017 K/MM3 8 ed shelby 06:00 count (number /volume ) Differential panel, method unspecified - (03-12-2017 06:00) Hypochr 2+ 2+ L complet omatic 017 ed red 06:00 blood cell detecti on LYMPH 6 % 10-50 complet 017 ed 06:00 Monocyt = 1 % 2-9 complet e % 017 ed 06:00 Platele NORMAL complet t 017 NORMAL ed estimat 06:00 L e Neutrop = 93 % 42-76 complet hil 017 ed count 06:00 Blood = 100 complet total 017 #CELLS ed cell 06:00 count Differential panel, method unspecified - (03-12-2017 06:00) [...] MMOL/L .3 ed base 04:45 excess determi devyn Berkowitz's ACCEPTA complet test 017 BLE ed before [...] RESULTS CALLED TO: JORGE ER 03/11/17 0452 LeahKarlee Arteria = 7.33 7.35-7. complet l blood [...] on in urine sedimen t Urine = 1.015 1.005-1 complet specifi 017 [...] color 017 YELLOW ed 04:30 L Urine culture (03-11-2017 04:30) Urine [id number] complet culture 017 07 ed 04:30 Escheri [...] erythro 04:09 cyte mean corpusc ular h [place] % = 7.8 % 1.7-9.3 complet 017 [...] % 0.1-2.0 complet 017 ed 04:09 Automat 11-26-2 = 0.1 0.0-0.4 complet ed 017 K/mm3 [...] bilirub in measure m Serum 03-11-2 = 112 7-18 complet or [...] creatin 04:09 ine renal clearan ce Estimat 2 = 36 >60 complet ed 017 ML/MIN ed glomeru 04:09 lar filtrat ion rate (GF Comment: REFERENCE RANGE: >60 ML/MIN/1.73 SQUARE METERS Comment: If this patient is -Swiss, then multiply the Comment: result by 1.210. Serum 03-11-2 = 5.2 1.3-3.2 complet globuli 017 gm/dL ed n 04:09 measure ment (mass/v olume) Serum 03-11-2 = 142 74-106 complet or 017 mg/dL ed plasma 04:09 glucose measure ment (mas Serum 03-11-2 = 4.6 3.5-5.1 complet potassi 017 mmoL/L ed um 04:09 measure ment Serum 11-26-2 = 145 136-145 complet sodium 017 mmoL/L ed measure 04:09 ment Serum 11-26-2 = 18 15-37 complet or 017 U/L ed plasma 04:09 asparta te aminotr ansfera ALT 03-11-2 = 20 12-78 complet (SGPT) 017 U/L ed ser/mateo 04:09 s Protein 03-11-2 = 7.9 6.4-8.2 complet total 017 gm/dL [...] 017 K/mm3 ed monocyt 12:40 e count [place] % = 7.3 % 1.7-9.3 complet 017 [...] % 0.1-2.0 complet 017 ed 04:50 Automat 2 = 0.1 0.0-0.4 complet ed 017 K/mm3 [...] 017 K/mm3 ed monocyt 04:50 e count [place] % = 6.2 % 1.7-9.3 complet 017 [...] SerPl-mCnc (01-11-2017 10:51) NT-proB 2724 0-899 complet 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 5 Y Y [facility] USING TWO CATHETERS LEFT 3722 [facility] [address] [facility] CATHETERI ZATION INSERTION 3607 [facility] 5 Y Y [facility] ING COR[facility]ARY ARTERY STENT INSERTION 0046 [facility] [address] [facility] STENTS PERQ 0066 [facility] 5 Y Y [facility] CORONARY ANGIOPLAS TY PTCA INSERTION 8607 [facility] 1 [facility]AL IMPL MEDICAL MEDICAL VASCULAR CE CE ACCESS DEVICE Encounters Encounter Start End Date Code Location Performer Type Date [facility] - 7 7 [facility] 7 [facility] 7 7 [facility] - 7 7 [facility] - 7 7 [facility] - 7 7 [facility] - 7 7 [facility] 7 7 [facility] 7 7 [facility] - 7 7 [facility] INPATIENT [facility] - 7 7 [facility] 7 7 [facility] - 7 7 [facility] INPATIENT [facility] - 7 7 [facility] OUTPATIEN [facility] - 7 7 [facility]PATI[facility] - 7 7 [facility] - 6 6 [facility] OUTPATIEN [facility] - 6 6 [facility]PATI[facility] - 6 6 [facility]PATIEN [facility] - 6 6 [facility]PATI[facility] - 6 6 [facility] - 6 6 [facility]PATI[facility] - 6 6 [...] 6 6 [facility] 6 6 [facility] 6 6 [facility] 5 5 [facility] 5 5 [facility] 5 5 [facility] [place] - 5 5 [facility] 5 5 [facility] 5 5 [facility] - 5 5 [facility] - 5 5 [facility]PAT[facility] 5 5 [facility] [place] - 5 5 [facility] - 5 5 [facility] 5 5 [facility] - OTHER 5 5 [facility] - 5 5 [facility] 5 5 [facility] - 5 5 [facility] 5 5 [facility] - 5 5 [facility] 5 5 [facility] - 5 5 [facility] - 5 5 [facility] OUTPATIEN INC [facility], 5 5 HOME [facility], 5 5 HOME OUTPATIEN [facility] 5 5 HOME OUTPATIEN [facility], 4 4 [facility] - 4 4 [facility] - 4 4 [facility] [place] - 4 4 [facility]PATI[facility] - 4 4 [facility] - 4 4 [facility] [place] - 4 4 [facility]PATI[facility] - 4 4 [facility] - 4 4 [facility] - 4 4 [facility] - 4 4 [facility] - 4 4 [facility] - 3 3 [facility] [place] - 3 3 [facility] OUTPATIEN [facility] [place] - 3 3 [facility]PATI[facility] - 3 3 [facility] [place] - 2 2 [facility] - 2 2 REG[facility] OUTPATI[facility] [place] - 1 1 REG[facility]AL OUTPATIEN MED[facility] T [facility], 1 1 HOME OUTPATIEN [facility] [place] - 1 1 [facility] 0 [facility] [place] - 0 0 [facility] [place] - 0 0 [facility] - 0 0 [facility] - 9 9 [facility] [place] - 9 9 [facility]PATI[facility] [place] - 9 9 [facility]PATI[facility] [place] - 8 8 [facility]PATI[facility] [place] - 8 8 [facility]PAT[facility] [place] - 8 8 [facility]PAT[facility] [place] - 8 8 [facility]PAT[facility] [place] - 8 8 [facility] [place] - 8 8 [facility] [place] - 8 8 [facility] [place] - 8 8 [facility] [place] - 8 8 [facility] [place] - 8 8 [facility] [place] - 8 8 [facility] [place] - 8 8 [facility] [place] [id number] [facility] [place] 8 [facility] [place] 8 [facility]
--- OUTSIDE RECORDS SUMMARY | 2017-03-14 17:14 | External Medical Summary Rpt | CCD ---
Author Author , NOREEN Organization NOREEN Address Unknown Phone [email or web address] Care Team Providers Care Tube Backer Name Role Phone [facility], [facility] Unavailable Unavailable [facility] Unavailable Unavailable ASSOCI[facility], [facility] Unavailable Unavailable RESPONSE, [facility] RHODA BACA MD, PSC, Unavailable Unavailable RHODA BACA MD, PSC [facility] Unavailable Unavailable [place], [facility] [place] KENTON ARMIJO, Unavailable Unavailable KENTON ARMIJO MD, Unavailable Unavailable [facility], ROSY POWELL MD, [facility] MASSIMO MARISCAL Unavailable Unavailable M, MASSIMO MARISCAL, Unavailable Unavailable M.Marko.P.S.CIrena, LES MARCH M.D.P.S.CIrena [facility], Unavailable Unavailable [facility] BHSIMIN ROBERTINDER S, Unavailable Unavailable BHAGRATH, KSENIA S [facility] Unavailable Unavailable ON RED, [facility] ON [facility] Unavailable Unavailable SERVICE, [facility] Unavailable Unavailable SERVICE, [facility]available Unavailable SERVICE, [facility] Unavailable Unavailable CONSULTANTS O, [facility], Unavailable Unavailable [facility], Unavailable Unavailable [facility] Unavailable Unavailable [facility] ALESSANDRA-ERIC, Unavailable Unavailable JERMAINEYANG ARMENDARIZ, JERMAINEMARCELLO PUTNAM KOKO, Unavailable Unavailable INDY K[facility] Un[facility], [facility], [place], Unavailable Unavailable KEY, [place] [facility] [place] [place] Un[place] Un[place] [facility], [facility] [place] Un[facility] Unavailable [facility], [facility], Unavailable Unavailable [facility] [employer] [facility] Unavailable Unavailable INC, [facility] [employer] FALLIS DIANA, FALLIS Unavailable Unavailable DIANA [facility] Unavailable Unavailable #471, [facility] MORRO ZHENG, Unavailable Unavailable MORRO ZHENG GUNYEN ISABEL K, Unavailable Unavailable GUNFATMATAMALLA, ISABEL K [facility] Unavailable Unavailable PHARMACY, [facility], Unavailable Unavailable [facility] Unavailable Unavailable INC, [facility] Unavailable [facility]available HOSPITAL, [facility] Unavailable Unavailable HOSPITAL P, [facility]PITAL P [facility]available Unavailable MEDICAL CE, [facility] Unavailable Unavailable [facility]ICAL CENT, [facility] Unavailable Unavailable INC, [facility], Unavailable Unavailable [facility] Unavailable Unavailable PLLC, [facility], Unavailable Unavailable HOSPICE [facility] Unavailable Unavailable PHYSICIANS, [facility] RIAN, VANDANA Cxo, RIAN, Unavailable Unavailable VANDANA [facility] Unavailable Unavailable [place], [facility] [place] [facility], Unavailable Unavailable [id number], Unavailable Unavailable [id number] Unavailable Unavailable PHARMACY, [facility] Un[facility], [facility] Unavailable Unavailable [facility]ASCULAR PH, [facility] Unavailable Unavailable [facility]ING [facility], [facility] # Unavailable Unavailable [id number], [facility] # [id number] [facility] [id number] # Unavailable Unavailable [id number], [facility] [id number] # [id number] [place] [facility] Unavailable Unavailable [facility], [facility] Un[facility] Un[facility], [facility] Unavailable Unavailable COMM[facility] ACT, [facility] LUIS E HAM, LUIS E HAM Unavailable Unavailable [facility] Unavailable Unavailable ASSOCIAT, [facility] Unavailable Unavailable SURGERY, [facility] Unavailable Unavailable MEDICAL, [facility] Un[facility] Unavailable [facility], [facility] Unavailable Unavailable PHARMACY, [facility], Unavailable Unavailable [facility] Unavailable Un[facility]ARMACY, [facility] Unavailable Unavailable AMBULANCE SE, [facility] AMBUL[facility] SE [facility], Unavailable Unavailable PLLC, [facility] KRAFT ANTONINA, KRAFT Unavailable Unavailable ANTONINA [facility], Unavailable Unavailable [facility] PAWSAT, PAWSAT Unavailable Unavailable PAWSAT MAR, PAWSAT Unavailable Unavailable MAR HURLEYRICHARD FERRERA W, Unavailable Unavailable RICHARD HURLEY W PEASI, PEASI Unavailable Unavailable [facility] Unavailable Unavailable PRACTICE CL, [facility] PRACTICE CL [facility] Unavailable Unavailable AMBULAN, [facility] Unavailable Unavailable [facility], [facility], Unavailable Unavailable [facility] Unavailable Unavailable SERVICE, [facility] QUALITY PROVIDER Unavailable Unavailable SERVICES IN, [facility] Unavailable Unavailable [facility]ALTH[facility], [facility] Unavailable Unavailable [id number] # [id number], [facility] [id number] # 0229 [facility] Unavailable Unavailable HEALTH CARE, [facility], Unavailable Unavailable [facility] KETTY BROTHERS, ZEV, Unavailable Unavailable KETTY Carcamo [facility] Unavailable Unavailable EQUIPME, [facility], Unavailable Unavailable [facility] ZE BLACK[facility], Unavailable Unavailable ZE BLACKWELL [facility] Unavailable Unavailable HOSPITALS, [facility], Unavailable Unavailable [facility], Unavailable Unavailable [facility] # Unavailable Unavailable [id number], [facility] # [id number] [facility] Unavailable Unavailable AGENCY, [facility] ZE MAN, Unavailable Unavailable ZE MAN WILLIAM Unavailable Unavailable ALEXANDREA Clemente WILLIAM H ZAMBOS, PHILIP N, Unavailable Unavailable MICHAEL DE LA ROSA Purpose Continuity of Care Document - 10-31-2006 through 2016 Problems Code Diagnosis DOS Provider Status I129 HYPERTENSIV 02-19-2017 CORAL Roberts CKD PHYSICIANS, W/STAGE 1-4 [facility] CKD OR UNS CKD M069 RHEUMATOID 02-19-2017 [facility] UNSPECIFIED SERVICE N189 CHRONIC 02-19-2017 [facility] KIDNEY PHYSICIANS, DISEASE [facility] UNSPECIFIED R0602 SHORTNESS 02-19-2017 [facility] OF BREATH PHYSICIANS, [facility] R0689 OTHER 02-19-2017 [facility] ABNORMALITI COUNTY ES OF AMBULANCE BREATHING SE R600 LOCALIZED 02-19-2017 [place] [place] [facility] SE Z7409 OTHER 02-19-2017 [facility] REDUCED AMBULANCE MOBILITY SERVICE I10 ESSENTIAL 02-15-2017 [facility] HYPERTENSIO ASSOCIATES N N183 CHRONIC 02-15-2017 [facility] DISEASE [facility]ATES STAGE 3 MODERATE N179 ACUTE 02-12-2017 [facility] FAILURE [facility] UNSPECIFIED [id number] ULCERATIVE 01-29-2017 [place] [facility] LEFT LOWER [...] INC WITHOUT ESOPHAGITIS R079 CHEST PAIN 01-27-2017 [facility] Z794 PROGRAM REP 01-27-2017 [facility] OF INSULIN INC Z7982 CUSTODIAL 01-27-2017 [facility] OF ASPIRIN INC I2510 ASHD UNGA 01-22-2017 CORONARY [facility] ARTERY W/O HOSPITALS ANGINA PECTORIS I252 OLD 01-22-2017 MYOCARDIAL [facility] INFARCTION HOSPITALS I255 ISCHEMIC 01-22-2017 CARDIOMYOPA [facility] THY HOSPITALS I472 VENTRICULAR 01-22-2017 [facility] TACHY[facility]ARDIA HOSPITALS I5022 CHRONIC 01-22-2017 SYSTOLIC [facility] CONGESTIVE HOSPITALS HEART FAILURE I509 HEART 01-22-2017 [facility] FAILURE HEALTH UNSPECIFIED ASSOCIATES R0609 OTHER FORMS 01-22-2017 [facility] [id number] PRESENCE 01-22-2017 AUTO [facility] IMPLANTABLE HOSPITALS CARDIAC DEFIBRILLAT [place] R918 OTHER 01-19-2017 [facility] NONSPECIFIC [facility] ABNORMAL FINDING OF LUNG FIELD E785 HYPERLIPIDE 01-18-2017 [facility] HEALTH UNSPECIFIED ASSOCIATES G894 CHRONIC 01-14-2017 [place] PAIN COUNT INCLUDES THE [facility] SYNDROME HEALTH CARE N19 UNSPECIFIED 01-14-2017 [place] KIDNEY COUNT INCLUDES THE [facility] FAILURE HEALTH CARE Z950 PRESENCE OF 01-14-2017 [facility] Z955 PRESENCE OF 01-11-2017 [facility] ANGIOPLASTY HOSPITALS IMPLANT & GRAFT M6281 MUSCLE 01-05-2017 [facility] WEAKNESS AMBULANCE GENERALIZED SERVICE R59297 OTHER LONG 01-05-2017 [facility] HOSPITAL P DRUG THERAPY Z882 ALLERGY 01-05-2017 [facility] STATUS TO MEM [facility]OS[facility] SULFONAMIDE INC S STATUS R609 EDEMA 01-04-2017 [facility] UNSPECIFIED [facility]CARE HOSPITALS E139 OTH SPEC 01-01-2017 [facility] DIABETES PHYSICIANS MELLITUS GROUP W/O COMPLICATIO NS E875 HYPERKALEMI 01-01-2017 [facility] A PHYSICIANS GROUP I5020 UNSPECIFIED 01-01-2017 [facility] SYSTOLIC PHYSICIANS CONGESTIVE GROUP HEART FAILURE Z4502 ENCOUNTER 12-21-2016 [facility] AUTO HOSPITALS IMPLANTABL CARD DEFIB B35.6 Tinea 12-20-2016 cruris 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 E11.40 Type 2 12-20-2016 diabetes mellitus with diabetic neuropathy, unspecified G25.81 Restless 12-20-2016 legs syndrome I16.1 Hypertensiv 12-20-2016 e emergency 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 I50.9 Heart 12-20-2016 failure, unspecified J96.02 Acute 12-20-2016 respiratory failure with hypercapnia K21.9 Gastro-esop 12-20-2016 hageal reflux disease without esophagitis K59.00 Constipatio 12-20-2016 n, unspecified M06.9 Rheumatoid 12-20-2016 arthritis, unspecified N18.3 Chronic 12-20-2016 kidney disease, stage 3 (moderate) R00.1 Bradycardia 12-20-2016 , unspecified R74.8 Abnormal 12-20-2016 levels of other serum enzymes 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 Z95.0 Presence of 12-20-2016 cardiac pacemaker N390 URINARY 12-16-2016 [facility] SITE NOT SPECIFIED R001 BRADYCARDIA 12-14-2016 [place] [facility] UNSPECIFIED FOUNDATION R69 ILLNESS 12-14-2016 [place] UNSPECIFIED In [employer] COMMUNITY ACT B356 TINEA 12-13-2016 [place] CRURIS [...] UNSPECIFIED R339 RETENTION 11-21-2016 [facility] OF URINE [facility] UNSPECIFIED HOSPITAL P R338 OTHER 11-14-2016 QUALITY RETENTION PROVIDER OF URINE SERVICES IN A78062 PRESSURE 10-14-2016 QUALITY ULCER OF PROVIDER RIGHT HEEL SERVICES IN UNSTAGEABLE I30758 NON-PRSS 10-14-2016 [facility]ALITY CHR ULCR PROVIDER UNS PART SERVICES IN UNS LOW LEG UNS SEV J189 PNEUMONIA 09-29-2016 [facility] UNSPECIFIED PHYSICIANS ORGANISM GROUP N289 DISORDER OF 09-29-2016 [facility] KIDNEY AND PHYSICIANS URETER GROUP UNSPECIFIED R05 [...] CON[facility]IVE FOUNDATION HEART FAILURE R279 UNSPECIFIED 09-08-2016 [facility] LACK OF MEDICAL COORDINATIO RESPONSE N I130 [...] (congestive ) heart failure I214 NON-ST 09-06-2016 [facility] INFARCTION I4581 LONG QT 09-06-2016 [place] [facility] SYNDROME SERV FOUNDATION J9691 RESPIRATORY 09-06-2016 [place] [facility] FAILURE SERV UNSPECIFIED FOUNDATION WITH HYPOXIA R9431 ABNORMAL 09-06-2016 [place] [facility] ELECTROCARD SERV IOGRAM FOUNDATION E1165 TYPE 2 09-05-2016 [facility] [place] HYPERGLYCEM [place] U00410 PAIN IN 09-05-2016 [place] RIGHT LEG MEDICAL IMAGING ASS U78834 PAIN IN 09-05-2016 [place] LEFT LEG MEDICAL IMAGING ASS M7989 OTHER 09-05-2016 [place] SPECIFIED MEDICAL SOFT TISSUE IMAGING ASS DISORDERS R269 UNSPECIFIED 09-05-2016 [facility] ABNORMALITI AMBULANCE ES OF GAIT SE AND MOBILITY R531 WEAKNESS 09-05-2016 [facility] AMBULANCE SE Z8679 PERSONAL 09-05-2016 [facility] HISTORY OTH PHYSICIANS, DISEASES PLLC CIRCULATORY SYSTEM Z7401 BED 08-30-2016 [facility] AMBULANCE STATUS SERVICE E109 TYPE 1 08-14-2016 [facility] DIABETES HEALTH MELLITUS ASSOCIATES WITHOUT COMPLICATIO NS L0390 CELLULITIS 08-14-2016 [facility] UNSPECIFIED HEALTH ASSOCIATES M869 OSTEOMYELIT 08-11-2016 [facility] IS MOBILE XRAY UNSPECIFIED SERVICE R0989 OTH SPEC SX 07-20-2016 QUALITY & SIGNS MOBILE XRAY INVLV THE SERVICE CIRC & RESP SYS E1151 TYPE 2 DM 05-11-2016 [facility] W/DIAB PERIPH 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 N05453 PRESSURE 05-11-2016 [facility] ULCER OF RIGHT ANKLE STAGE 2 Z82087 PRESSURE 05-11-2016 [facility] ULCER OF LEFT ANKLE UNSTAGEABLE M1990 UNSPECIFIED 05-06-2016 [facility] AMBULANCE OSTEOARTHRI SERVICE TIS UNSPECIFIED SITE R0789 OTHER CHEST 05-06-2016 [facility] PAIN PHYSICIANS, [facility] H07313 CELLULITIS 04-25-2016 [facility] OF RIGHT LOWER LIMB G52453 PRESSURE 04-25-2016 [facility] ULCER OF RIGHT HEEL STAGE 2 E559 VITAMIN D 04-24-2016 [facility] UNSPECIFIED ASSOCIATES L089 LOCAL INF 04-18-2016 [facility] THE SKIN & HEALTH SUBCUTANEOU ASSOCIATES S TISSUE UNS R319 HEMATURIA 04-18-2016 [facility] P U10381 UNSPECIFIED 04-17-2016 [facility] RIGHT LOWER EYELID K54637M UNSPECIFIED 03-29-2016 [facility] LOWER ASSOCIATES LEG INITIAL ENC T41615 PAIN IN 03-20-2016 [facility] LEFT KNEE [facility] INC M179 OSTEOARTHRI 02-22-2016 [facility] TIS OF KNEE MEM HOSP INC UNSPECIFIED N4889 OTHER 02-18-2016 [facility] P OF PENIS N489 DISORDER OF 02-18-2016 [facility] PENIS COUNT INCLUDES THE [facility] UNSPECIFIED AMBULANCE SE R3989 OTH 02-18-2016 [facility] SYMPTOMS & COUNTY SIGNS AMBULANCE INVOLVING SE THE SYSTEM R52 PAIN 02-18-2016 [facility] UNSPECIFIED COUNT INCLUDES THE [facility] AMBULANCE SE Z577OES UNS COMP 02-18-2016 [facility] PROSTH COUNT INCLUDES THE [facility] DEVICE IMPL AMBULANCE & GRAFT SE INIT ENC R1084 GENERALIZED 02-13-2016 [facility] ABDOMINAL [facility]ERGENCY PAIN AMBULAN R1930 ABDOMINAL 02-13-2016 [facility] RIGIDITY [facility]GENCY UNSPECIFIED AMBULAN SITE R5381 OTHER 02-13-2016 [facility] MALAISE AMBULANCE SERVICE Z466 ENCOUNTER 02-13-2016 [facility] FITTING AND PHYSICIANS, ADJUSTMENT [facility] URINARY DEVICE E118 TYPE 2 02-04-2016 [facility] DIABETES [facility] MELLITUS INC W/UNS COMPLICATIO NS Z539 PROCEDURE & 02-04-2016 [facility] TREATMENT [facility]OS[facility] NOT CARRIED INC OUT UNS REASON M169 OSTEOARTHRI 01-10-2016 SAMY GARBER OF HIP , PSC UNSPECIFIED T06271 PAIN IN 01-10-2016 [facility] UNSPECIFIED MEM HOSP HIP INC K76507 PAIN IN 01-10-2016 [facility] UNSPECIFIED MEM HOS[facility] KNEE INC E878 OTHER D/O 12-27-2015 [facility] ELECTROLYTE ASSOCIATES AND FLUID BALANCE NEC J86884 OTHER 12-17-2015 [facility] SPECIFIED [facility]OSP RHEUMATOID INC ARTHRITIS LEFT HIP M1612 UNILATERAL 12-17-2015 [facility] PRIMARY [facility] OSTEOARTHRI INC TIS LEFT HIP A03233 PAIN IN 12-07-2015 [facility] LEFT THIGH [facility] INC E85433 PAIN IN 12-07-2015 [facility] LEFT LOWER MEM [facility]OS[facility] LEG INC M93398 PAIN IN 12-06-2015 [facility] LEFT HIP MEM [facility]OS[facility] INC F22557 NON-PRSS 11-24-2015 [facility] CHRN ULCER PHYSICIANS SKIN OTH GROUP SITES UNS SEVERITY M56005 TYPE 2 11-16-2015 [place] D[facility]NA DIABETES MELLITUS WITH FOOT ULCER M2570 OSTEOPHYTE 11-16-2015 [place] [facility] UNSPECIFIED JOINT P00554 PAIN IN 10-19-2015 [place] [facility] RIGHT FOOT D509 IRON 09-29-2015 [facility] HEALTH ANEMIA ASSOCIATES UNSPECIFIED P09791 COMBINED 08-24-2015 [facility]RELATED INSTITUTE CATARACT LEFT EYE H269 UNSPECIFIED 08-24-2015 [facility] CATARACT MEM [facility] INC S13155 COMBINED 07-27-2015 [facility]RELATED INSTITUTE CATARACT RIGHT EYE E46 UNSPECIFIED 2015 [facility] PROTEIN-EVGENY ASSOCIATES ORIE MALNUTRITIO N W71148 COMBINED 06-22-2015 [facility]-RELATED INSTITUTE CATARACT BILATERAL H538 OTHER 06-22-2015 [facility] VISUAL [facility] DISTURBANCE INSTITUTE S N186 END STAGE 05-24-2015 [facility] DISEASE ASSOCIATES 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 [facility] CY CHRONIC PERIPHERAL I071 RHEUMATIC 05-11-2015 [place] [facility] SERV INSUFFICIEN FOUNDATION CY 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 05-11-2015 [facility] MITRAL SERV VALVE FOUNDATION INSUFFICIEN CY Z0189 ENCOUNTER 05-06-2015 [facility] OTHER AMB SERVICE SPECIFIED SPECIAL EXAMINATION S E1136 TYPE 2 04-29-2015 [facility] V[facility] MELLITUS CENTER WITH DIABETIC CATARACT H2513 AGE-RELATED 04-29-2015 [facility] NUCLEAR VISION CATARACT CENTER BILATERAL C43562 CATARACT 04-29-2015 [facility] SECONDARY TO OCULAR DISORDERS UNS EYE I5032 CHRONIC 04-29-2015 [facility] DIASTOLIC CONGESTIVE HEART FAILURE R5382 CHRONIC 04-29-2015 [facility] FATIGUE UNSPECIFIED 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 M7731 CALCANEAL 03-30-2015 [place] [facility] RIGHT MEDICAL FOOT IMAGING ASS M059 RA WITH 03-23-2015 [facility] RHEUMATOID EMERGENCY FACTOR AMBULAN UNSPECIFIED U27863 PAIN IN 03-23-2015 [facility] UNSPECIFIED EMERGENCY LIMB AMBULAN S36272N LACERATION 03-23-2015 [facility] W/FOREIGN EMERGENCY BODY UNS AMBULAN FOOT INITIAL ENC Z7901 CUSTODIAL 03-16-2015 [facility] CURRENT USE HEALTH OF ASSOCIATES ANTICOAGULA NTS G8929 OTHER 02-25-2015 [facility] CHRONIC EMERGENCY PAIN AMBULAN J9690 RESP FAIL 02-25-2015 [facility] UNS UNS EMERGENCY WHETHER AMBULAN W/HYPOXIA/H YPERCAPNIA E975 02-24-2015 [facility] A419 SEPSIS 02-18-2015 [facility] UNSPECIFIED HEALTH ORGANISM ASSOCIATES E0590 THYROTOXICO 02-18-2015 [facility] SIS UNS W/O HEALTH THYROTOXIC ASSOCIATES CRISIS/STOR M R350 FREQUENCY 02-18-2015 [facility] MICTURITION ASSOCIATES R7989 OTHER SPEC 02-18-2015 [facility] ABNORMAL HEALTH FINDINGS ASSOCIATES BLOOD CHEMISTRY R4182 ALTERED 01-22-2015 [facility] MENTAL EMERGENCY STATUS AMBULAN UNSPECIFIED I270 PRIMARY 01-21-2015 [facility] PULMONARY LAR HYPERTENSIO CONSULTANTS N O S99726 ASHD UNGA 01-19-2015 [facility] COR ARTREY LAR W/UNS CONSULTANTS ANGINA O PECTORIS O26806Q NONDSPL FX 01-19-2015 [facility] 2ND GENERAL METATARSAL SURGERY RT FT INIT ENC CLOS FX E1365 OTH SPEC 01-16-2015 [facility] DIABETES LAR MELLITUS CONSULTANTS WITH O HYPERGLYCEM IA I272 OTHER 01-15-2015 [facility] SECONDARY REGIONAL PULMONARY MEDICAL HYPERTENSIO N J811 CHRONIC 01-15-[facility] P[facility]MON[facility] RADIOLOGY EDEMA ASSOCIAT J9610 CHRONIC 01-15-2015 [facility] RESPIRATORY REGIONAL FAIL UNS MEDICAL HYPOXIA/HYP ERCAPNIA R06435 NON-PRSS 01-15-[facility] CHRN ULCR RADIOLOGY OTH PART LT ASSOCIAT FOOT UNS SEVERITY Z84944 NON-PRSS 01-15-2015 [facility] CHR ULCR REGIONAL UNS PART LT MEDICAL LOW LEG UNS SEV N84730G DISPLACED 01-15-[facility] 2ND RADIOLOGY METATARSAL ASSOCIAT RT FT INIT CLOS FX I5040 UNSPECIFIED 01-14-2015 [facility] SYSTOLIC & HOSPITAL DIASTOLIC CHF J90 PLEURAL 01-14-2015 [place] EFFUSION MEDICAL NOT IMAGING ASS ELSEWHERE CLASSIFIED M0540 RHEUMATOID 01-14-2015 [facility] WITH RA HOSPITAL UNSPECIFIED SITE R590 LOCALIZED 01-14-2015 [place] ENLARGED MEDICAL LYMPH NODES IMAGING ASS 95692 COR 01-13-2015 [facility] ATHEROSLERO LAR UNSPEC CONSULTANTS TYPE VESSEL O UNGA/YOVANNY T 4258 CARDIOMYOPA 01-13-2015 [facility] THY OTHER LAR DISEASES CONSULTANTS CLASSIFIED O ELSW 4280 CONGESTIVE 01-13-2015 [facility] HEART LAR FAILURE [place] [address] SHORTNESS 01-13-2015 [facility] OF BREATH LAR CONSULTANT[facility] O 65240 DIAB W/O 01-12-2015 [facility] II/[facility]S NOT [facility] P STATED UNCNTRL 2724 OTHER AND 01-12-2015 [facility]NSPECIFIED [facility] HYPERLIPIDE NICHOLAS 3384 CHRONIC 01-12-2015 [facility] PAIN [facility] SYNDROME 4019 UNSPECIFIED 01-12-2015 [facility] P N 4254 OTHER 01-12-2015 [facility] CARDIOMYOPA HOSPITAL P MARNI 4259 UNSPECIFIED 01-12-2015 [facility] CARDIOMYOPA THY 93278 UNSPECIFIED 01-12-2015 [facility] SYSTOLIC [facility] HEART FAILURE 496 CHRONIC 01-12-2015 [facility]STRU[facility] AMBULAN NEC 05871 ACUTE 01-12-2015 [facility] FAILURE 5849 ACUTE 01-12-2015 [facility] UNSPECIFIED 5853 CHRONIC 01-12-2015 [facility] DISEASE STAGE III (MODERATE) 7140 RHEUMATOID 01-12-2015 [facility] 7862 COUGH 01-12-2015 [facility] 31230 SOLITARY 01-12-2015 [facility] V4582 POSTSURG 01-12-2015 [place] [facility] P L COR ANGPLSTY STS V5867 LONG-TERM 01-12-2015 [place] [facility] INSULIN [facility] P V5869 LONG-TERM 01-12-2015 [place] (CURRENT) [facility] USE OF HOSPITAL P OTHER MEDICATIONS 56685 01-04-2015 [facility] ACT 80507 ATRIAL 12-25-2014 [facility] O 7823 EDEMA 12-25-2014 [facility] AMBULANCE SERVICE 06908 OTHER FLUID 12-24-2014 [facility] 22987 ANEMIA IN 12-24-2014 [facility] DISEASE 72872 HTN CKD UNS 12-24-2014 [facility] W/CKD SERV STAGE I [facility] THRU STAGE IV/UNS 5880 RENAL 12-24-2014 [facility] OSTEODY[facility]O [facility] PHY [facility] 4240 MITRAL 12-22-2014 [facility] 4242 TRICUSPID 12-22-2014 [facility] SPEC NONRHEUMATI C 72322 OCCL&STENOS 12-22-2014 [facility] PRECERBRL [facility] ART W/O INFARCT 70668 OTHER 12-19-2014 [facility] CHRONIC PHYSICIANS PAIN GROUP 4011 ESSENTIAL 12-19-2014 [facility] HYPERTENSIO PHYSICIANS N, BENIGN GROUP 4439 UNSPECIFIED 12-18-2014 [facility] DISEASE O V4509 OTHER 12-18-2014 [facility] INC DEVICE IN SITU 5601 PARALYTIC 12-09-2014 [facility] ILEUS PHYSICIANS GROUP 7873 FLATULENCE 12-02-2014 [facility] [facility]YSICIANS [facility] GROUP PAIN 60820 ABDOMINAL 12-02-2014 [facility] PAIN, PHYSICIANS UNSPECIFIED GROUP SITE 03835 UNS 12-01-2014 [facility] GASTRITIS&G AMBULANCE ASTRODUODIT SERVICE IS W/O MENTION HEMORR 5609 UNSPECIFIED 12-01-2014 [facility] OBSTRUCTION 26141 CALCU 12-01-2014 [facility] W/O MENTION IMAGING ASS CHOLECYST/O BST V4502 AUTOMATIC 12-01-2014 [facility] CARDIAC INC DEFIBRILLAT OR SITU 250 DIABETES 11-26-2014 [facility] [place] 56569 OTHER 11-23-2014 [facility] SPECIFIED CARDIAC DYSRHYTHMIA S 5851 CHRONIC 11-23-2014 [facility] [place] [address] RESTLESS 11-06-2014 [facility] LEGS PRIMARY SYNDROME CARE 22437 ESOPHAGEAL 11-06-2014 [facility] REFLUX PRIMARY CARE 4293 CARDIOMEGAL 10-13-2014 [place] [address] OTHER 10-13-2014 [place] DYSPNEA AND REGIONAL MEDICAL CE RESPIRATORY ABNORMALITI ES 5932 ACQUIRED 10-07-2014 [facility] CYST OF MEDICAL KIDNEY IMAGING ASS 08315 UNSPECIFIED 09-11-2014 [facility] INFECTION PARTNERS OF OF BONE LEX[place] ANKLE AND FOOT 9597 INJURY 09-11-2014 [facility] CIFIED KNEE INC LEG ANKLE&FOOT V5881 FITTING AND 09-11-2014 [place] ADJUSTMENT MEDICAL OF IMAGING ASS VASCULAR CATHETER 92128 DIAB W/O 09-08-2014 [facility] MENTION SERV COMP TYPE FOUNDATION II/UNS TYPE UNCNTRL 2767 HYPERPOTASS 08-26-2014 [facility] P 412 OLD 08-26-2014 [facility] INFARCTION INC 36230 CORONARY 08-26-2014 [facility] P CORONARY ARTERY 5859 CHRONIC 08-26-2014 [facility] DISEASE INC UNSPECIFIED 07409 WHEEZING 08-26-2014 [facility] 1101 DERMATOPHYT 08-14-2014 [facility] OS[facility] OF NAIL 56160 DIAB 08-14-2014 [facility] W/PERIPH CIRC D/O TYPE II/UNS TYPE UNCNTRL 7295 PAIN IN 08-14-2014 [facility] SOFT TISSUES OF LIMB 462 ACUTE 08-08-2014 [facility] 15401 OTH NONSPC 08-08-2014 [place] ABN FINDNG MEDICAL RAD&OTH EXM IMAGING ASS BODY STRUCTURE 714 RA AND 07-23-2014 [facility] OTHER AREA AGENCY INFLAMMATOR ON RED Y POLYARTHROP ATHIES 70369 URINARY 07-09-2014 [facility] HESITANCY [facility]IMARY CARE 4271 PAROXYSMAL 06-22-2014 [facility] VENTRICULAR SERV FOUNDATION TACHYCARDIA V5331 FITTING AND 06-22-2014 [facility] AD[facility] SERV OF CARDIAC FOUNDATION PACEMAKER V707 EXAMINATION 06-22-2014 [facility] OF SERV PARTICIPANT FOUNDATION IN CLINICAL TRIAL 15029 OTHER 06-21-2014 [facility] PREMATURE SERV BEATS FOUNDATION 91192 NONSPECIFIC 06-21-2014 [facility] ABNORMAL SERV ELECTROCARD FOUNDATION IOGRAM 77494 DIAB 06-18-2014 [facility] TYPE II/UNS TYPE UNCNTRL 91650 ACUT PA 06-18-2014 [facility] IAL INFARCT INIT EPIS CARE 15133 ULCER OF 06-18-2014 [facility] V4589 OTHER 06-18-2014 [facility] POSTSURGICA SERV L STATUS FOUNDATION OTHER 68877 DIAB W/O 06-17-2014 [place] [facility] MENTION SERV COMP TYPE I FOUNDATION [JUV TYPE] UNCNTRL 63599 ACUT 06-17-2014 [facility] INFARCT UNS SERVICE SITE EPIS CARE UNS 63829 ACUTE 06-17-2014 [facility] P UNSPEC SITE INIT EPIS CARE 5180 PULMONARY 06-17-2014 [facility] COLLAPSE SERV FOUNDATION 7850 UNSPECIFIED 06-17-2014 [place] [facility] TACHYCARDIA IMAGING ASS 11458 PRECORDIAL 06-17-2014 [facility] PAIN AMBULANCE SERVICE 3572 POLYNEUROPA 06-10-2014 [facility] IN HEALTH DIABETES AGENCY 00012 ULCER OF 06-10-2014 [facility] OTHER PART HEALTH OF FOOT AGENCY 55825 MUSCLE 06-10-2014 [facility] WEAKNESS HEALTH (GENERALIZE AGENCY D) 2937 CELLULITIS 04-14-2014 [facility] AND ABSCESS PRIMARY OF LEG CARE EXCEPT FOOT 72285 INSOMNIA 03-19-2014 [facility] UNSPECIFIED PRIMARY CARE 58131 UNSPECIFIED 01-22-2014 [facility] [address] ULCER OF 01-22-2014 [facility] INC V571 OTHER 01-22-2014 [facility] PHYSICAL [facility] THERAPY INC 8911 OPEN WOUND 01-19-2014 [facility] OF KNEE LEG PRIMARY AND ANKLE CARE COMPLICATED 586 UNSPECIFIED 08-27-2013 [place] RENAL REGIONAL FAILURE MEDICAL CE 7038 OTHER 08-27-2013 [facility] SPECIFIED PRIMARY DISEASE OF CARE NAIL 94566 OLECRANON 08-01-2013 [facility] BURSITIS PRIMARY CARE 91963 GEN 07-22-2013 [facility] HOME SIS MEDICAL INVOLVING EQUIPME MULTIPLE SITES 32301 GENERALIZED 05-22-2013 [facility] SIS UNSPECIFIED SITE 90099 ULCER OF 03-17-2013 [facility] HEEL AND PRIMARY MIDFOOT CARE 7812 ABNORMALITY 03-17-2013 [facility] OF GAIT PRIMARY CARE 80461 OSTEOARTHRO 02-20-2013 [facility] SIS UNSPEC ORTHOPAEDIC WHETHER S PLC GEN/LOC LOWER LEG V0481 NEED 02-12-2013 [facility] PROPHYLACTI PRIMARY C CARE VACCINATION &INOCULATIO N FLU 85569 PAIN IN 11-15-2012 [facility] JOINT, PRIMARY SHOULDER CARE REGION 59651 PAIN IN 11-15-2012 [facility] JOINT, PRIMARY UPPER ARM CARE 23283 UNSPEC 10-08-2012 [facility] C[facility] OF ATHY/POLYAR [place]EXINGTO THRITIS SITE UNSPEC 28524 DIAB 09-20-2012 [place] W/NEURO REGIONAL MANIFESTS MEDICAL CE TYPE II/UNS TYPE UNCNTRL 4871 INFLUENZA 05-27-2012 [facility] WITH OTHER RESPIRATORY MANIFESTATI ONS 07416 FEVER 05-18-2012 [facility] UNSPECIFIED [place] 4660 ACUTE 04-25-2012 [facility] BRONCHITIS 4658 ACUTE URIS 02-28-2012 [facility] SARK[facility] OF OTHER MULTIPLE SITES 96070 PRESSURE 02-28-2012 [facility]ER HEEL 7993 UNSPECIFIED 01-19-2012 [facility] 89635 OTHER 07-24-2011 [facility] SARKAR URINARY INCONTINENC E 35493 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 7291 UNSPECIFIED 12-23-2010 L[facility] [place]AL[place] JOSE MARCHPIrenaSIrenaCIrena MYOSITIS 59948 UNSPECIFIED 11-30-2010 [place] LAPAROSCOPI OSTEOMYELIT C & IS ANKLE ADVANCED S AND FOOT 9961 [facility] COMP 11-30-2010 [place] OT LAPAROSCOPI VASCULAR C & DEVICE ADVANCED S IMPLANT&[place] [address] FLUSHING 09-20-2010 [place] [address] PRESSURE 06-14-2010 ROSY Nelson [facility]ER ANDRE VALDES, UNSPECIFIED LLC SITE 81689 ACUTE 06-14-2010 ROSY Nelson OSTEOMYELIT ANDRE VALDES, IS SITE LLC UNSPECIFIED 43401 ACUTE 06-02-2010 ROSY Nelson OSTEOMYELION POWELL MD, IS, ANKLE LLC AND FOOT 2859 UNSPECIFIED 05-19-2010 [facility] INC 69556 UNSPECIFIED 05-19-2010 [facility] CELLULITIS HOME HEALTH AND INC ABSCESS OF TOE 63967 PRESSURE 05-19-2010 [facility] ULCER SOLUTIONS BUTTOCK 73647 UNSPECIFIED 05-17-2010 [place] LAPAROSCOPI OSTEOMYELIT C & IS OTHER ADVANCED S SPECIFIED SITES 39767 CHEST PAIN 05-17-2010 [place] UNSPECIFIED HEART & VASCULAR PH 6829 CELLULITIS 05-16-2010 [facility] [place] AND ABSCESS IMAGING PSC OF UNSPECIFIED SITE 08213 UNSPECIFIED 05-16-2010 ROSY POWELL MD, OSTEOMYELIT LLC IS SITE UNSPECIFIED 5939 UNSPECIFIED 05-13-2010 [facility] [place] DISORDER IMAGING PSC OF KIDNEY AND URETER 87019 OTHER CHEST 05-13-2010 [place] PAIN LAPAROSCOPI C & ADVANCED S 54776 OTHER 05-13-2010 [facility]MPTOMS [place] INVOLVING KIDNEY CARE URINARY SYSTEM 07026 PRESSURE 05-12-2010 [place] [address] PRESSURE 05-12-2010 [place] ULCER STAGE REGIONAL II MEDICAL CE 7851 PALPITATION 04-19-2010 [facility] S HEART & VASCULAR PH 3569 UNSPEC 04-14-2010 [facility] HEREDIT&IDI FAMILY OPATHIC PRACTICE CL PERIPHERAL NEUROPATHY 72969 DIAB W/O 01-24-2010 [facility] COMP TYPE I FAMILY [JUV] NOT PRACTICE CL STATED UNCNTRL 7801 HALLUCINATI 12-23-2009 [facility] ONS EMERGENCY PHYSICIANS 6827 CELLULITIS 11-02-2009 [facility] AND ABSCESS EMERGENCY OF FOOT PHYSICIANS EXCEPT TOES 64694 OSTEOARTHRO 11-02-2009 [facility] [place] SIS UNSPEC IMAGING PSC WHETHER GEN/LOC ANK&FOOT 9174 FOOT&TOE 11-02-2009 [facility] INSECT BITE EMERGENCY PHYSICIANS NONVENOMOUS W/O MENTION INF 9175 FOOT AND 11-02-2009 [place] TOE INSECT REGIONAL BITE MEDICAL NONVENOMOUS CENT INFECTED E0008 OTHER 11-02-2009 [place] EXTERNAL REGIONAL CAUSE MEDICAL STATUS CENT E8490 PLACE OF 11-02-2009 [facility] OCCURRENCE, EMERGENCY HOME PHYSICIANS E9064 BITE OF 11-02-2009 [facility] NONVENOMOUS EMERGENCY ARTHROPOD PHYSICIANS 3670 HYPERMETROP 10-21-2009 [facility] PTON, JERMAINE 93941 OTHER 10-05-2009 [facility] 32132 PAIN IN 09-07-2009 [place] JOINT PAIN PELVIC PHYSICIANS REGION AND PSC THIGH 73406 PAIN IN 09-07-2009 [place] JOINT, PAIN LOWER LEG PHYSICIANS PSC 7242 LUMBAGO 09-07-2009 [facility] PAIN PHYSICIANS PSC 7410 SPINA 08-03-2009 BHAGRATH, BIFIDA WITH KSENIA S HYDROCEPHAL US 7804 DIZZINESS 07-30-2009 [facility] AND PAIN GIDDINESS PHYSICIANS PSC 70535 POLYARTICUL 07-08-2009 [place] AR JUVENILE PAIN RA CHRONIC PHYSICIANS OR PSC UNSPECIFIED 7852 UNDIAGNOSED 07-01-2009 [place] CARDIAC HEART & [facility] VASCULAR PHYSICIANS, INC 05968 PAIN IN 11-09-2008 [facility], L HOME MULTIPLE MEDICAL SITES SUPPLIES INC 2689 UNSPECIFIED 10-02-2008 [place] VITAMIN D REGIONAL DEFICIENCY MEDICAL CENT 5852 CHRONIC 10-02-2008 [place] KIDNEY REGIONAL DISEASE MEDICAL STAGE II CENT (MILD) 74815 HYPERTROPHY 10-02-2008 [place] PROSTATE REGIONAL W/O UR OBST MEDICAL & OTH LUTS CENT 7910 PROTEINURIA 10-02-2008 [facility]ENT 7231 CERVICALGIA 07-08-2008 [facility] PAIN PHYSICIANS PSC 05953 OSTEOARTHRO 2008 [facility] S UNSPEC ORTHOPAEDIC GEN/LOC S PLC PELV REGION&THIG H 3829 UNSPECIFIED 05-28-2008 [place] [facility] 4659 ACUTE URIS 04-28-2008 [place] OF [facility] UNSPECIFIED HOSP SITE 7213 LUMBOSACRAL 04-02-2008 PH[facility]ANS SERVICES SPONDYLOSIS 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 7244 THORACIC/TY 04-02-2008 PHYSIC[facility]ANS MBOSACRAL SERVICES NEURITIS/RA PSC DICULITIS UNSPEC 8472 LUMBAR 04-02-2008 PH[facility]ANS SPRAIN AND SERVICES STRAIN PSC 6828 CELLULITIS 03-03-2008 [place] AND ABSCESS MANDAEN OF OTHER HOSP SPECIFIED SITE 44015 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 05983 SPINAL 02-26-2008 PHYSICIANS STENOSIS OF SERVICES THORACIC PSC REGION 7241 PAIN IN 02-26-2008 PH[facility]ANS THORACIC SERVICES SPINE PSC 10547 CLOS FX 02-26-2008 PHYSIC[facility]ANS T7-T12 SERVICES LEVEL PSC W/UNSPEC SPINAL CORD INJURY 19555 SECONDARY 02-25-2008 [facility] HYPERPARATH NEPHROLOGY YROIDISM CONSULTANTS 9516 INJURY TO 02-11-2008 [facility]IC[facility]ANS DORSAL SERVICES NERVE ROOT PSC 18489 OSTEOARTHRO 01-14-2008 PHYSIC[facility]ANS S UNSPEC SERVICES GEN/LOC OTH PSC SPEC SITES 09132 DISPLCMT 01-14-2008 [facility] LUMBAR SERVICES INTERVERT PSC DISC W/O MYELOPATHY 43977 SPINAL STEN 01-14-2008 [facility] LUMB REG SERVICES W/O PSC [place] N [address] SCOLIOSIS , 01-14-2008 PH[facility]ANS IDIOPATHIC SERVICES PSC 7246 DISORDERS 12-25-2007 [facility] OF SACRUM SERVICES PSC 7245 UNSPECIFIED 12-21-2007 [facility] BACKACHE IMAGING PSC 69339 ABDOMINAL 12-21-2007 [place] PAIN OTHER REGIONAL SPECIFIED MEDICAL SITE CENT 3970 DISEASES OF 11-18-2007 [facility], TRICUSPID ZE C VALVE 27383 PRIMARY LOC 11-13-2007 [facility] OSTEOARTHRO MEDICAL SIS PELVIC CENT REGION&THIG H 37233 PRIMARY 11-13-2007 [facility] OSTEOARTHRO MEDICAL SIS LOWER CENT LEG 7176 LOOSE BODY 11-13-2007 [place] IN KNEE [facility] MEDICAL CENT 75213 DISORDER OF 11-13-2007 [facility] BONE AND IMAGING PSC CARTILAGE UNSPECIFIED 2818 ANEMIA 09-26-2007 [facility] W/OTHER PLLC SPEC NUTRITIONAL DEFIC 4778 ALLERGIC 09-26-2007 [facility] DUE TO PLLC OTHER ALLERGEN 72625 UNSPECIFIED 09-26-2007 [facility]IS [facility] AND PLL[facility] ABSCESS OF FINGER 63614 NOCTURIA 09-26-2007 [facility]ENT 33995 VOMITING 09-13-2007 [facility] PHYSICIAN INC 01371 OSTEOARTHRO 09-04-2007 [facility] S UNSPEC NEPHROLOGY WHETHER CONSULTANTS GEN/LOC UNSPEC SITE 34620 ELEVATED 09-04-2007 [facility] PROSTATE NEPHROLOGY SPECIFIC CONSULTANTS ANTIGEN 66085 UNSPECIFIED 06-24-2007 [facility] CONSTIPATIO MEDICAL N CENT 60206 LOSS OF 06-24-2007 [place] WEIGHT [facility] MEDICAL CENT 25819 URINARY 06-24-2007 [place] FREQUENCY [facility] MED[facility] CENT V7644 SPECIAL 06-24-2007 [facility] MALIGNANT MEDICAL NEOPLASM OF CENT PROSTATE 4779 [...] 0 RE 15 FT 41 17 17 PA EN 0 PH CH ER AR AE MA L 25 CY S 0 MG LL C SO FT GE L 00 08 11 0 30 30 ME 15 GA Ac TA 90 -3 -2 0. D 34 IN ti PA 40 1- 5- 00 CA 30 EY ve N 52 20 20 0 RE 14 C 38 17 17 PA 50 0 PH CH 0 AR AE MG MA L CY S TA BL LL ET C SE 00 08 11 0 12 30 ME 15 GA Ac NN 90 -3 -2 00 D 34 IN ti A- 46 1- 5- .0 CA 30 EY ve LA 52 20 20 00 RE 16 X 26 17 17 PA 8. 1 PH CH 6 AR AE MG MA L CY S TA BL LL ET C 00 08 11 0 30 30 ME 15 GA Ac PI 90 -3 -2 0. D 31 IN ti RI 46 1- 0- 00 CA 53 EY ve N 28 20 20 0 RE 70 81 88 17 17 PA 9 PH CH MG AR AE MA L CH CY S EW AB LL LE C TA BL ET 00 08 11 0 30 30 ME 15 GA Ac TA 53 -3 -1 0. D 28 IN ti PA 63 1- 5- 00 CA 72 EY ve N 79 20 20 0 RE 37 D3 00 17 17 PA 1 PH CH 2, AR AE 00 MA L 0 CY S UN IT LL C SO FT GE L TA 00 08 11 0 30 30 ME 15 GA Ac B- 90 -3 -1 0. D 28 IN ti A- 40 1- 5- 00 CA 72 EY ve 53 20 20 0 RE 36 TE 08 17 17 PA 0 PH CH TA AR AE BL MA L ET CY S LL C FE 00 08 11 0 30 30 ME 15 GA Ac RR 53 -3 -1 0. D 28 IN ti OU 61 1- 5- 00 CA 72 EY ve S 00 20 20 0 RE 35 CLARK 90 17 17 PA LF 1 PH CH AT AR AE E MA L 32 CY S 5 MG LL C TA BL ET LO 00 08 11 0 30 30 ME 15 GA Ac RA 78 -3 -0 0. D 23 IN ti TA 15 1- 4- 00 CA 05 EY ve DI 07 20 20 0 RE 03 NE 70 17 17 PA 1 PH CH 10 AR AE MA L MG CY S TA LL BL C ET SE 00 08 10 0 12 30 ME 15 GA Ac NN 90 -3 -2 00 D 18 IN ti A- 46 1- 7- .0 CA 77 EY ve LA 52 20 20 00 RE 76 X 26 17 17 PA 8. 1 PH CH 6 AR AE MG MA L CY S TA BL LL ET C 00 08 10 0 30 30 ME 15 GA Ac TA 90 -3 -2 0. D 18 IN ti PA 40 1- 7- CA 77 EY ve N 52 20 20 0 RE 74 C 38 17 17 PA 50 0 PH CH 0 AR AE MG MA L CY S TA BL LL ET C ST 00 08 10 0 30 30 ME 15 GA Ac OO 53 -3 -2 0. D 18 IN ti L 61 1- 7 CA 77 EY ve SO 06 20 20 0 RE 75 FT 41 17 17 PA EN 0 PH CH ER AR AE MA L 25 CY S 0 MG LL C SO FT GE L 00 08 10 0 30 30 ME 15 GA Ac PI 90 -3 -2 0. D 16 IN ti RI 46 1- 3- 00 CA 98 EY ve N 28 20 20 0 RE 63 81 88 17 17 PA 9 PH CH MG AR AE MA L CH CY S EW AB LL LE C TA BL ET 00 08 10 0 30 30 ME 15 GA Ac TA 53 -3 -1 0. D 12 IN ti PA 63 1- 6- CA 12 EY ve N 79 20 20 0 RE 14 D3 00 17 17 PA 1 PH CH 2, AR AE 00 MA L 0 CY S UN IT LL C SO FT GE L FE 00 08 10 0 30 30 ME 15 GA Ac RR 53 -3 -1 0. D 12 IN ti OU 61 1- 6- CA 12 EY ve S 00 20 20 0 RE 10 CLARK 90 17 17 PA LF 1 PH CH AT AR AE E MA L 32 CY S 5 MG LL C TA BL ET TA 00 08 10 0 30 30 ME 15 GA Ac B- 90 -3 -1 0. D 12 IN ti A- 40 1- 6- 00 CA 12 EY ve 53 20 20 0 RE 11 TE 08 17 17 PA 0 PH CH TA AR AE BL MA L ET CY S LL C LO 00 08 10 0 30 30 ME 15 GA Ac RA 78 -3 -0 0. D 07 IN ti TA 15 1- 6- CA 11 EY ve DI 07 20 20 0 RE 54 NE 70 17 17 PA 1 PH CH 10 AR AE MA L MG CY S TA LL BL C ET ST 00 08 09 0 30 30 ME 14 GA Ac OO 53 -3 -2 0. D 87 IN ti L 61 1- 7- 00 CA 57 EY ve SO 06 20 20 0 RE 82 FT 41 17 17 PA EN 0 PH CH ER AR AE MA L 25 CY S 0 MG LL C SO FT GE L SE 00 08 09 0 12 30 ME 14 GA Ac NN 90 -3 -2 00 D 87 IN ti A- 46 1- 7- .0 CA 57 EY ve LA 52 20 20 00 RE 99 X 26 17 17 PA 8. 1 PH CH 6 AR AE MG MA L CY S TA BL LL ET C 00 08 09 0 13 13 ME 14 GA Ac TA 90 -3 -2 0. D 87 IN ti PA 40 1- 7 CA 57 EY ve N 52 20 20 0 RE 80 C 38 17 17 PA 50 0 PH CH 0 AR AE MG MA L CY S TA BL LL ET C 00 08 09 0 30 30 ME 14 GA Ac PI 90 -3 -2 0. D 87 IN ti RI 46 7 CA 57 EY ve N 28 20 20 0 RE 76 81 88 17 17 PA 9 PH CH MG AR AE MA L CH CY S EW AB LL LE C TA BL ET TA 00 08 09 0 30 30 ME 14 GA Ac B- 90 -3 -1 0. D 87 IN ti A- 40 8 CA 57 EY ve 53 20 20 0 RE 93 TE 08 17 17 PA 0 PH CH TA AR AE BL MA L ET CY S LL C RO 00 08 09 0 15 30 ME 14 GA Ac BA 90 -3 -1 00 D 87 IN ti FE 40 1- 8- .0 CA 57 EY ve N- 05 20 20 00 RE 97 DM 31 17 17 PA 6 PH CH SY AR AE RU MA L P CY S LL C FE 00 08 09 0 30 30 ME 14 GA Ac RR 53 -3 -1 0. D 87 IN ti OU 61 1- 8- 00 CA 57 EY ve S 00 20 20 0 RE 84 CLARK 90 17 17 PA LF 1 PH CH AT AR AE E MA L 32 CY S 5 MG LL C TA BL ET 00 08 09 0 30 30 ME 14 GA Ac TA 53 -3 -1 0. D 97 IN ti PA 63 1- 8- 00 CA 42 EY ve N 79 20 20 0 RE 76 D3 00 17 17 PA 1 PH CH 2, AR AE 00 MA L 0 CY S UN IT LL C SO FT GE L EN 00 09 09 0 13 1 ME 14 GA Ac EM 53 -1 -1 30 D 97 IN ti A 67 8- 8- .0 CA 43 EY ve 41 20 20 00 RE 40 55 17 17 PA 1 PH CH AR AE MA L CY S LL C LO 00 08 09 0 30 30 ME 14 GA Ac RA 78 -3 -0 0. D 87 IN ti TA 15 1- 8- 00 CA 57 EY ve DI 07 20 20 0 RE 87 NE 70 17 17 PA 1 PH CH 10 AR AE MA L MG CY S TA LL BL C ET 00 08 08 0 30 30 ME 14 GA Ac TA 90 -2 -2 0. D 83 IN ti PA 40 5- 5- 00 CA 93 EY ve N 52 20 20 0 RE 36 C 38 17 17 PA 50 0 PH CH 0 AR AE MG MA L CY S TA BL LL ET C 00 06 08 0 30 30 ME 14 GA Ac PI 90 -2 -2 0. D 81 IN ti RI 46 0- 1- 00 CA 39 EY ve N 28 20 20 0 RE 76 81 88 17 17 PA 9 PH CH MG AR AE MA L CH CY S EW AB LL LE C TA BL ET 00 06 08 0 30 30 ME 14 GA Ac TA 53 -2 -1 0. D 78 IN ti PA 63 0- 8- 00 CA 56 EY ve N 79 20 20 0 RE 78 D3 00 17 17 PA 1 PH CH 2, AR AE 00 MA L 0 CY S UN IT LL C SO FT GE L BI 00 06 08 0 15 30 ME 14 GA Ac SC 90 -2 -1 0. D 44 IN ti OL 45 0- 8- 00 CA 02 EY ve AX 05 20 20 0 RE 06 81 17 17 PA 10 2 PH CH AR AE MG MA L CY S CLARK PP LL OS C IT OR Y ST 00 06 08 0 30 30 ME 14 GA Ac OO 53 -2 -1 0. D 77 IN ti L 61 0- 7- 00 CA 70 EY ve SO 06 20 20 0 RE 49 FT 41 17 17 PA EN 0 PH CH ER AR AE MA L 25 CY S 0 MG LL C SO FT GE L FE 00 06 08 0 30 30 ME 14 GA Ac RR 53 -2 -1 0. D 77 IN ti OU 61 0- 7- 00 CA 70 EY ve S 00 20 20 0 RE 48 CLARK 90 17 17 PA LF 1 PH CH AT AR AE E MA L 32 CY S 5 MG LL C TA BL ET SE 00 06 08 0 12 30 ME 14 GA Ac NN 90 -2 -1 00 D 77 IN ti A- 46 0- 7- .0 CA 70 EY ve LA 52 20 20 00 RE 50 X 26 17 17 PA 8. 1 PH CH 6 AR AE MG MA L CY S TA BL LL ET C TA 00 06 08 0 30 30 ME 14 GA Ac B- 90 -2 -1 0. D 76 IN ti A- 40 0- 4- 00 CA 87 EY ve 53 20 20 0 RE 37 TE 08 17 17 PA 0 PH CH TA AR AE BL MA L ET CY S LL C LO 00 06 08 0 30 30 ME 14 GA Ac RA 78 -2 -1 0. D 74 IN ti TA 15 0- 2- 00 CA 04 EY ve DI 07 20 20 0 RE 56 NE 70 17 17 PA 1 PH CH 10 AR AE MA L MG CY S TA LL BL C ET RO 00 06 08 0 15 30 ME 14 GA Ac BA 90 -2 -0 00 D 74 IN ti FE 40 0- 9- .0 CA 72 EY ve N- 05 20 20 00 RE 35 DM 31 17 17 PA 6 PH CH SY AR AE RU MA L P CY S LL C FE 00 06 07 0 30 30 ME 14 GA Ac RR 53 -2 -1 0. D 60 IN ti OU 61 0- 8- 00 CA 24 EY ve S 00 20 20 0 RE 56 CLARK 90 17 17 PA LF 1 PH CH AT AR AE E MA L 32 CY S 5 MG LL C TA BL ET SE 00 06 07 0 12 30 ME 14 GA Ac NN 90 -2 -1 00 D 60 IN ti A- 46 0- 8- .0 CA 24 EY ve LA 52 20 20 00 RE 60 X 26 17 17 PA 8. 1 PH CH 6 AR AE MG MA L CY S TA BL LL ET C 00 06 07 0 30 30 ME 14 GA Ac PI 90 -2 -1 0. D 60 IN ti RI 46 0- 8- 00 CA 24 EY ve N 28 20 20 0 RE 55 81 88 17 17 PA 9 PH CH MG AR AE MA L CH CY S EW AB LL LE C TA BL ET TA 00 06 07 0 30 30 ME 14 GA Ac B- 90 -2 -1 0. D 60 IN ti A- 40 0- 8- 00 CA 24 EY ve 53 20 20 0 RE 59 TE 08 17 17 PA 0 PH CH TA AR AE BL MA L ET CY S LL C LO 00 06 07 0 30 30 ME 14 GA Ac RA 78 -2 -1 0. D 60 IN ti TA 15 0- 8- 00 CA 24 EY ve DI 07 20 20 0 RE 58 NE 70 17 17 PA 1 PH CH 10 AR AE MA L MG CY S TA LL BL C ET ST 00 06 07 0 30 30 ME 14 GA Ac OO 53 -2 -1 0. D 60 IN ti L 61 0- 8- 00 CA 24 EY ve SO 06 20 20 0 RE 57 FT 41 17 17 PA EN 0 PH CH ER AR AE MA L 25 CY S 0 MG LL C SO FT GE L 00 06 06 0 30 30 ME 14 GA Ac TA 53 -2 -2 0. D 44 IN ti PA 63 0- 0- 00 CA 02 EY ve N 79 20 20 0 RE 04 D3 00 17 17 PA 1 PH CH 2, AR AE 00 MA L 0 CY S UN IT LL C SO FT GE L RO 00 06 06 0 15 30 ME 14 GA Ac BA 90 -2 -2 00 D 44 IN ti FE 40 0- 0- .0 CA 02 EY ve N- 05 20 20 00 RE 15 DM 31 17 17 PA 6 PH CH SY AR AE RU MA L P CY S LL C 00 06 06 0 30 30 ME 14 GA Ac PI 90 -2 -2 0. D 44 IN ti RI 46 0- 0- 00 CA 01 EY ve N 28 20 20 0 RE 76 81 88 17 17 PA 9 PH CH MG AR AE MA L CH CY S EW AB LL LE C TA BL ET FE 00 06 06 0 30 30 ME 14 GA Ac RR 53 -2 -2 0. D 44 IN ti OU 61 0- 0- 00 CA 01 EY ve S 00 20 20 0 RE 81 CLARK 90 17 17 PA LF 1 PH CH AT AR AE E MA L 32 CY S 5 MG LL C TA BL ET SE 00 06 06 0 12 30 ME 14 GA Ac NN 90 -2 -2 00 D 44 IN ti A- 46 0- 0- .0 CA 02 EY ve LA 52 20 20 00 RE 03 X 26 17 17 PA 8. 1 PH CH 6 AR AE MG MA L CY S TA BL LL ET C MA 00 06 06 0 60 30 ME 14 GA Ac PA 90 -2 -2 0. D 44 IN ti P 41 0- 0- 00 CA 02 EY ve 50 98 20 20 0 RE 05 0 86 17 17 PA MG 1 PH CH AR AE TA MA L BL CY S ET LL C ST 00 06 06 0 30 30 ME 14 GA Ac OO 53 -2 -2 0. D 44 IN ti L 61 0- 0- 00 CA 01 EY ve SO 06 20 20 0 RE 83 FT 41 17 17 PA EN 0 PH CH ER AR AE MA L 25 CY S 0 MG LL C SO FT GE L LO 00 06 06 0 30 30 ME 14 GA Ac RA 78 -2 -2 0. D 44 IN ti TA 15 0- 0- 00 CA 01 EY ve DI 07 20 20 0 RE 85 NE 70 17 17 PA 1 PH CH 10 AR AE MA L MG CY S TA LL BL C ET TA 00 06 06 0 30 30 ME 14 GA Ac B- 90 -2 -2 0. D 44 IN ti A- 40 0- 0- 00 CA 01 EY ve 53 20 20 0 RE 86 TE 08 17 17 PA 0 PH CH TA AR AE BL MA L ET CY S LL C BI 00 05 06 0 12 12 ME 14 GA Ac SC 90 -2 -1 0. D 26 IN ti OL 45 6- 2- 00 CA 89 EY ve AX 05 20 20 0 RE 53 81 17 17 PA 10 2 PH CH AR AE MG MA L CY S CLARK PP LL OS C IT OR Y LO 00 03 05 0 30 30 ME 14 GA Ac RA 78 -1 -1 0. D 21 IN ti TA 15 9- 9- 00 CA 63 EY ve DI 07 20 20 0 RE 53 NE 70 17 17 PA 1 PH CH 10 AR AE MA L MG CY S TA LL BL C ET SE 00 03 05 0 12 30 ME 14 GA Ac NN 90 -1 -1 00 D 19 IN ti A- 46 9- 6- .0 CA 54 EY ve LA 52 20 20 00 RE 69 X 26 17 17 PA 8. 1 PH CH 6 AR AE MG MA L CY S TA BL LL ET C 00 03 05 0 30 30 ME 14 GA Ac TA 90 -1 -1 0. D 19 IN ti PA 45 9- 5- 00 CA 90 EY ve N 04 20 20 0 RE 88 AN 26 17 17 PA D 0 PH CH PA AR AE NE MA L RA CY S LS LL TA C BL ET 00 03 05 0 30 30 ME 14 GA Ac PI 53 -1 -1 0. D 18 IN ti RI 61 9- 2- 00 CA 24 EY ve N 00 20 20 0 RE 73 EC 44 17 17 PA 1 PH CH 81 AR AE MA L MG CY S TA LL BL C ET ST 00 02 05 0 30 30 ME 14 GA Ac OO 53 -2 -1 0. D 18 IN ti L 61 3- 2- 00 CA 24 EY ve SO 06 20 20 0 RE 76 FT 41 17 17 PA EN 0 PH CH ER AR AE MA L 25 CY S 0 MG LL C SO FT GE L 00 03 05 0 30 30 ME 14 GA Ac TA 53 -1 -1 0. D 18 IN ti PA 63 9- 2- 00 CA 24 EY ve N 79 20 20 0 RE 82 D3 00 17 17 PA 1 PH CH 2, AR AE 00 MA L 0 CY S UN IT LL C SO FT GE L BI 00 05 05 0 15 15 ME 14 GA Ac SC 90 -1 -1 0. D 18 IN ti OL 45 0- 0- 00 CA 07 EY ve AX 05 20 20 0 RE 34 81 17 17 PA 10 2 PH CH AR AE MG MA L CY S CLARK PP LL OS C IT OR Y FE 00 03 05 0 30 30 ME 14 GA Ac RR 53 -1 -0 0. D 14 IN ti OU 61 9- 5- 00 CA 67 EY ve S 00 20 20 0 RE 52 CLARK 90 17 17 PA LF 1 PH CH AT AR AE E MA L 32 CY S 5 MG LL C TA BL ET RO 00 04 05 0 15 30 ME 14 GA Ac BA 90 -0 -0 00 D 10 IN ti FE 40 7- 5- .0 CA 68 EY ve N- 05 20 20 00 RE 31 DM 31 17 17 PA 6 PH CH SY AR AE RU MA L P CY S LL C LO 45 03 04 0 30 30 ME 14 GA Ac RA 80 -1 -2 0. D 06 IN ti TA 20 9- 0- 00 CA 95 EY ve DI 65 20 20 0 RE 55 NE 08 17 17 PA 7 PH CH 10 AR AE MA L MG CY S TA LL BL C ET SE 00 03 04 0 12 30 ME 14 GA Ac NN 90 -1 -1 00 D 05 IN ti A- 46 9- 7- .0 CA 07 EY ve LA 52 20 20 00 RE 52 X 26 17 17 PA 8. 1 PH CH 6 AR AE MG MA L CY S TA BL LL ET C ST 00 02 04 0 30 30 ME 14 GA Ac OO 53 -2 -1 0. D 03 IN ti L 61 3- 3- 00 CA 60 EY ve SO 06 20 20 0 RE 86 FT 41 17 17 PA EN 0 PH CH ER AR AE MA L 25 CY S 0 MG LL C SO FT GE L 00 03 04 0 30 30 ME 14 GA Ac PI 53 -1 -1 0. D 03 IN ti RI 61 9- 3- 00 CA 60 EY ve N 00 20 20 0 RE 85 EC 44 17 17 PA 1 PH CH 81 AR AE MA L MG CY S TA LL BL C ET 00 03 04 0 30 30 ME 14 GA Ac TA 53 -1 -1 0. D 03 IN ti PA 63 9- 3- 00 CA 60 EY ve N 79 20 20 0 RE 88 D3 00 17 17 PA 1 PH CH 2, AR AE 00 MA L 0 CY S UN IT LL C SO FT GE L 00 03 04 0 30 30 ME 14 GA Ac TA 90 -1 -0 0. D 00 IN ti PA 45 9- 7- 00 CA 93 EY ve N 04 20 20 0 RE 00 AN 26 17 17 PA D 0 PH CH PA AR AE NE MA L RA CY S LS LL TA C BL ET FE 00 03 04 0 30 30 ME 14 GA Ac RR 53 -1 -0 0. D 00 IN ti OU 61 9- 7- 00 CA 92 EY ve S 00 20 20 0 RE 98 CLARK 90 17 17 PA LF 1 PH CH AT AR AE E MA L 32 CY S 5 MG LL C TA BL ET RO 00 04 04 0 15 30 ME 14 GA Ac BA 90 -0 -0 00 D 02 IN ti FE 40 7- 7- .0 CA 15 EY ve N- 05 20 20 00 RE 12 DM 31 17 17 PA 6 PH CH SY AR AE RU MA L P CY S LL C SP 00 02 03 0 30 15 ME 13 GA Ac IR 60 -0 -3 0. D 96 IN ti ON 35 2- 0- 00 CA 66 EY ve OL 76 20 20 0 RE 65 AC 32 17 17 PA TO 1 PH CH NE AR AE MA L 25 CY S MG LL C TA BL ET LO 00 03 03 0 30 30 ME 13 GA Ac RA 78 -1 -2 0. D 92 IN ti TA 15 9- 2- 00 CA 57 EY ve DI 07 20 20 0 RE 96 NE 70 17 17 PA 1 PH CH 10 AR AE MA L MG CY S TA LL BL C ET SE 00 03 03 0 12 30 ME 13 GA Ac NN 90 -1 -2 00 D 92 IN ti A- 46 9- 0- .0 CA 14 EY ve LA 52 20 20 00 RE 20 X 26 17 17 PA 8. 1 PH CH 6 AR AE MG MA L CY S TA BL LL ET C ST 00 02 03 0 30 30 ME 13 GA Ac OO 53 -2 -1 0. D 89 IN ti L 61 3- 5- 00 CA 95 EY ve SO 06 20 20 0 RE 95 FT 41 17 17 PA EN 0 PH CH ER AR AE MA L 25 CY S 0 MG LL C SO FT GE L 00 07 03 0 30 30 ME 13 GA Ac TA 53 -2 -1 0. D 89 IN ti PA 63 5- 5- 00 CA 20 EY ve N 79 20 20 0 RE 80 D3 00 16 17 PA 1 PH CH 2, AR AE 00 MA L 0 CY S UN IT LL C SO FT GE L 00 09 03 0 30 30 ME 13 GA Ac PI 53 -1 -1 0. D 89 IN ti RI 61 9- 5- 00 CA 20 EY ve N 00 20 20 0 RE 76 EC 44 16 17 PA 1 PH CH 81 AR AE MA L MG CY S TA LL BL C ET FE 00 09 03 0 30 30 ME 13 GA Ac RR 53 -1 -1 0. D 86 IN ti OU 61 9- 0- 00 CA 96 EY ve S 00 20 20 0 RE 49 CLARK 90 16 17 PA LF 1 PH CH AT AR AE E MA L 32 CY S 5 MG LL C TA BL ET 00 06 03 0 30 30 ME 13 GA Ac TA 90 -1 -1 0. D 86 IN ti PA 45 0- 0- 00 CA 96 EY ve N 04 20 20 0 RE 51 AN 26 16 17 PA D 0 PH CH PA AR AE NE MA L RA CY S LS LL TA C BL ET LO 00 09 02 0 30 30 ME 13 GA Ac RA 78 -0 -2 0. D 77 IN ti TA 15 1- 1- 00 CA 64 EY ve DI 07 20 20 0 RE 76 NE 70 16 17 PA 1 PH CH 10 AR AE MA L MG CY S TA LL BL C ET 00 09 02 0 30 30 ME 13 GA Ac PI 53 -1 -1 0. D 74 IN ti RI 61 9- 4- 00 CA 04 EY ve N 00 20 20 0 RE 51 EC 44 16 17 PA 1 PH CH 81 AR AE MA L MG CY S TA LL BL C ET 00 07 02 0 30 30 ME 13 GA Ac TA 53 -2 -1 0. D 74 IN ti PA 63 5- 4- 00 CA 04 EY ve N 79 20 20 0 RE 52 D3 00 16 17 PA 1 PH CH 2, AR AE 00 MA L 0 CY S UN IT LL C SO FT GE L ST 00 02 02 0 30 30 ME 13 GA Ac OO 53 -2 -1 0. D 73 IN ti L 61 3- 3- 00 CA 36 EY ve SO 06 20 20 0 RE 84 FT 41 16 17 PA EN 0 PH CH ER AR AE MA L 25 CY S 0 MG LL C SO FT GE L 00 06 02 0 30 30 ME 13 GA Ac TA 90 -1 -1 0. D 72 IN ti PA 45 0- 0- 00 CA 74 EY ve N 04 20 20 0 RE 29 AN 26 16 17 PA D 0 PH CH PA AR AE NE MA L RA CY S LS LL TA C BL ET FE 00 09 02 0 30 30 ME 13 GA Ac RR 90 -1 -0 0. D 72 IN ti OU 47 9- 9- 00 CA 08 EY ve S 59 20 20 0 RE 92 CLARK 18 16 17 PA LF 0 PH CH AT AR AE E MA L 32 CY S 5 MG LL C TA BL ET SE 00 09 02 0 12 30 ME 13 GA Ac NN 90 -1 -0 00 D 71 IN ti A 46 9- 7- .0 CA 32 EY ve 8. 43 20 20 00 RE 82 6 48 16 17 PA MG 0 PH CH AR AE TA MA L BL CY S ET LL C BI 00 09 02 0 15 15 ME 13 GA Ac SC 90 -1 -0 0. D 70 IN ti OL 45 9- 6- 00 CA 96 EY ve AX 05 20 20 0 RE 91 81 16 17 PA 10 2 PH CH AR AE MG MA L CY S CLARK PP LL OS C IT OR Y LO 00 09 01 0 30 30 ME 13 GA Ac RA 78 -0 -2 0. D 63 IN ti TA 15 1- 3- 00 CA 50 EY ve DI 07 20 20 0 RE 87 NE 70 16 17 PA 1 PH CH 10 AR AE MA L MG CY S TA LL BL C ET 00 09 01 0 30 30 ME 13 GA Ac PI 53 -1 -1 0. D 59 IN ti RI 61 9- 6- 00 CA 87 EY ve N 00 20 20 0 RE 11 EC 44 16 17 PA 1 PH CH 81 AR AE MA L MG CY S TA LL BL C ET 00 07 01 0 30 30 ME 13 GA Ac TA 53 -2 -1 0. D 59 IN ti PA 63 5- 6- 00 CA 87 EY ve N 79 20 20 0 RE 12 D3 00 16 17 PA 1 PH CH 2, AR AE 00 MA L 0 CY S UN IT LL C SO FT GE L ST 00 02 01 0 30 30 ME 13 GA Ac OO 53 -2 -1 0. D 59 IN ti L 61 3- 4- 00 CA 46 EY ve SO 06 20 20 0 RE 94 FT 41 16 17 PA EN 0 PH CH ER AR AE MA L 25 CY S 0 MG LL C SO FT GE L 00 06 01 0 30 30 ME 13 GA Ac TA 90 -1 -1 0. D 59 IN ti PA 45 0- 3- 00 CA 03 EY ve N 04 20 20 0 RE 67 AN 26 16 17 PA D 0 PH CH PA AR AE NE MA L RA CY S LS LL TA C BL ET SE 00 09 01 0 12 30 ME 13 GA Ac NN 90 -1 -1 00 D 58 IN ti A- 46 9- 2- .0 CA 61 EY ve LA 52 20 20 00 RE 97 X 26 16 17 PA 8. 1 PH CH 6 AR AE MG MA L CY S TA BL LL ET C FE 00 09 01 0 30 30 ME 13 GA Ac RR 53 -1 -1 0. D 57 IN ti OU 61 9- 1- 00 CA 54 EY ve S 00 20 20 0 RE 83 CLARK 90 16 17 PA LF 1 PH CH AT AR AE E MA L 32 CY S 5 MG LL C TA BL ET 00 12 01 0 10 1 ME 13 GA Ac TA 90 -1 -1 .0 D 58 IN ti PA 40 5- 0- 00 CA 30 EY ve N 52 20 20 RE 23 C 38 16 17 PA 50 0 PH CH 0 AR AE MG MA L CY S TA BL LL ET C ZI 00 12 12 0 10 1 ME 13 GA Ac NC 90 -1 -3 .0 D 53 IN ti 43 7- 0- 00 CA 28 EY ve GL 19 20 20 RE 54 UC 16 16 16 PA ON 0 PH CH AT AR AE E MA L 50 CY S MG LL C TA BL ET LO 00 09 12 0 30 30 ME 13 GA Ac RA 78 -0 -2 0. D 50 IN ti TA 15 1- 6- 00 CA 21 EY ve DI 07 20 20 0 RE 30 NE 70 16 16 PA 1 PH CH 10 AR AE MA L MG CY S TA LL BL C ET 00 07 12 0 30 30 ME 13 GA Ac TA 53 -2 -1 0. D 45 IN ti PA 63 5- 7- 00 CA 89 EY ve N 79 20 20 0 RE 62 D3 00 16 16 PA 1 PH CH 2, AR AE 00 MA L 0 CY S UN IT LL C SO FT GE L ZI 00 12 12 0 14 14 ME 13 GA Ac NC 90 -1 -1 0. D 46 IN ti 43 7- 7- 00 CA 89 EY ve GL 19 20 20 0 RE 55 UC 16 16 16 PA ON 0 PH CH AT AR AE E MA L 50 CY S MG LL C TA BL ET 00 09 12 0 30 30 ME 13 GA Ac PI 53 -1 -1 0. D 45 IN ti RI 61 9- 7- 00 CA 89 EY ve N 00 20 20 0 RE 61 EC 44 16 16 PA 1 PH CH 81 AR AE MA L MG CY S TA LL BL C ET ST 00 02 12 0 30 30 ME 13 GA Ac OO 53 -2 -1 0. D 45 IN ti L 61 3- 6- 00 CA 28 EY ve SO 06 20 20 0 RE 42 FT 41 16 16 PA EN 0 PH CH ER AR AE MA L 25 CY S 0 MG LL C SO FT GE L 00 12 12 0 30 30 ME 13 GA Ac TA 90 -1 -1 0. D 45 IN ti PA 40 5- 5- 00 CA 69 EY ve N 52 20 20 0 RE 93 C 38 16 16 PA 50 0 PH CH 0 AR AE MG MA L CY S TA BL LL ET C SE 00 09 12 0 12 30 ME 13 GA Ac NN 90 -1 -1 00 D 46 IN ti A- 46 9- 5- .0 CA 00 EY ve LA 52 20 20 00 RE 68 X 26 16 16 PA 8. 1 PH CH 6 AR AE MG MA L CY S TA BL LL ET C 00 06 12 0 30 30 ME 13 GA Ac TA 90 -1 -1 0. D 44 IN ti PA 45 0- 4- 00 CA 20 EY ve N 04 20 20 0 RE 08 AN 26 16 16 PA D 0 PH CH PA AR AE NE MA L RA CY S LS LL TA C BL ET FE 00 09 12 0 30 30 ME 13 GA Ac RR 53 -1 -1 0. D 44 IN ti OU 61 9- 4- 00 CA 97 EY ve S 00 20 20 0 RE 74 CLARK 90 16 16 PA LF 1 PH CH AT AR AE E MA L 32 CY S 5 MG LL C TA BL ET LO 00 09 11 0 30 30 ME 13 GA Ac RA 78 -0 -2 0. D 35 IN ti TA 15 1- 8- 00 CA 75 EY ve DI 07 20 20 0 RE 27 NE 70 16 16 PA 1 PH CH 10 AR AE MA L MG CY S TA LL BL C ET BA 00 11 11 0 28 7 ME 13 GA Ac CI 16 -1 -2 3. D 36 IN ti TR 80 7- 6- 50 CA 23 EY ve AC 02 20 20 0 RE 22 IN 13 16 16 PA -P 1 PH CH OL AR AE YM MA L YX CY S IN LL OI C NT ME NT SE 00 09 11 0 12 30 ME 13 GA Ac NN 90 -1 -2 00 D 32 IN ti A- 46 9- 1- .0 CA 02 EY ve LA 52 20 20 00 RE 30 X 26 16 16 PA 8. 1 PH CH 6 AR AE MG MA L CY S TA BL LL ET C 00 09 11 0 30 30 ME 13 GA Ac PI 53 -1 -1 0. D 30 IN ti RI 61 9- 8- 00 CA 83 EY ve N 00 20 20 0 RE 45 EC 44 16 16 PA 1 PH CH 81 AR AE MA L MG CY S TA LL BL C ET FE 00 09 11 0 30 30 ME 13 GA Ac RR 53 -1 -1 0. D 30 IN ti OU 61 9- 8- 00 CA 83 EY ve S 00 20 20 0 RE 46 CLARK 90 16 16 PA LF 1 PH CH AT AR AE E MA L 32 CY S 5 MG LL C TA BL ET 00 07 11 0 30 30 ME 13 GA Ac TA 53 -2 -1 0. D 30 IN ti PA 63 5- 8- 00 CA 83 EY ve N 79 20 20 0 RE 49 D3 00 16 16 PA 1 PH CH 2, AR AE 00 MA L 0 CY S UN IT LL C SO FT GE L ST 00 02 11 0 30 30 ME 13 GA Ac OO 53 -2 -1 0. D 29 IN ti L 61 3- 7- 00 CA 93 EY ve SO 06 20 20 0 RE 73 FT 41 16 16 PA EN 0 PH CH ER AR AE MA L 25 CY S 0 MG LL C SO FT GE L BA 00 11 11 0 28 14 ME 13 GA Ac CI 16 -1 -1 3. D 31 IN ti TR 80 7- 7- 50 CA 32 EY ve AC 02 20 20 0 RE 58 IN 13 16 16 PA -P 1 PH CH OL AR AE YM MA L YX CY S IN LL OI C NT ME NT 00 06 11 0 30 30 ME 13 GA Ac TA 90 -1 -1 0. D 27 IN ti PA 45 0- 4- 00 CA 96 EY ve N 04 20 20 0 RE 19 AN 26 16 16 PA D 0 PH CH PA AR AE NE MA L RA CY S LS LL TA C BL ET LO 00 09 10 0 30 30 ME 13 GA Ac RA 78 -0 -2 0. D 19 IN ti TA 15 1- 8- 00 CA 67 EY ve DI 07 20 20 0 RE 75 NE 70 16 16 PA 1 PH CH 10 AR AE MA L MG CY S TA LL BL C ET SE 00 09 10 0 12 30 ME 13 GA Ac NN 90 -1 -2 00 D 16 IN ti A- 46 9- 2- .0 CA 73 EY ve LA 52 20 20 00 RE 99 X 26 16 16 PA 8. 1 PH CH 6 AR AE MG MA L CY S TA BL LL ET C 00 07 10 0 30 30 ME 13 GA Ac TA 53 -2 -2 0. D 16 IN ti PA 63 5- 1- 00 CA 09 EY ve N 79 20 20 0 RE 46 D3 00 16 16 PA 1 PH CH 2, AR AE 00 MA L 0 CY S UN IT LL C SO FT GE L 00 09 10 0 30 30 ME 13 GA Ac PI 53 -1 -2 0. D 15 IN ti RI 61 9- 0- 00 CA 55 EY ve N 00 20 20 0 RE 55 EC 44 16 16 PA 1 PH CH 81 AR AE MA L MG CY S TA LL BL C ET FE 00 09 10 0 30 30 ME 13 GA Ac RR 53 -1 -2 0. D 15 IN ti OU 61 9- 0- 00 CA 55 EY ve S 00 20 20 0 RE 56 CLARK 90 16 16 PA LF 1 PH CH AT AR AE E MA L 32 CY S 5 MG LL C TA BL ET ST 00 02 10 0 30 30 ME 13 GA Ac OO 53 -2 -1 0. D 14 IN ti L 61 3- 9- 00 CA 82 EY ve SO 06 20 20 0 RE 28 FT 41 16 16 PA EN 0 PH CH ER AR AE MA L 25 CY S 0 MG LL C SO FT GE L 00 11 10 0 30 30 ME 13 GA Ac TA 90 -0 -1 0. D 13 IN ti PA 45 5- 5- 00 CA 15 EY ve N 04 20 20 0 RE 57 AN 26 15 16 PA D 0 PH CH PA AR AE NE MA L RA CY S LS LL TA C BL ET LO 00 09 09 0 30 30 ME 13 GA Ac RA 78 -0 -2 0. D 03 IN ti TA 15 1- 9- 00 CA 49 EY ve DI 07 20 20 0 RE 14 NE 70 16 16 PA 1 PH CH 10 AR AE MA L MG CY S TA LL BL C ET SE 00 09 09 0 12 30 ME 13 GA Ac NN 90 -1 -2 00 D 00 IN ti A- 46 9- 3- .0 CA 42 EY ve LA 52 20 20 00 RE 47 X 26 16 16 PA 8. 1 PH CH 6 AR AE MG MA L CY S TA BL LL ET C 00 09 09 0 30 30 ME 13 GA Ac PI 53 -1 -2 0. D 00 IN ti RI 61 9- 2- 00 CA 79 EY ve N 00 20 20 0 RE 87 EC 44 16 16 PA 1 PH CH 81 AR AE MA L MG CY S TA LL BL C ET FE 00 09 09 0 30 30 ME 13 GA Ac RR 53 -1 -2 0. D 00 IN ti OU 61 9- 2- 00 CA 79 EY ve S 00 20 20 0 RE 89 CLARK 90 16 16 PA LF 1 PH CH AT AR AE E MA L 32 CY S 5 MG LL C TA BL ET 00 07 09 0 30 30 ME 12 GA Ac TA 53 -2 -2 0. D 99 IN ti PA 63 5- 1- 00 CA 05 EY ve N 79 20 20 0 RE 58 D3 00 16 16 PA 1 PH CH 2, AR AE 00 MA L 0 CY S UN IT LL C SO FT GE L ST 00 02 09 0 30 30 ME 12 GA Ac OO 53 -2 -1 0. D 97 IN ti L 61 3- 9- 00 CA 85 EY ve SO 06 20 20 0 RE 93 FT 41 16 16 PA EN 0 PH CH ER AR AE MA L 25 CY S 0 MG LL C SO FT GE L 00 11 09 0 30 30 ME 12 GA Ac TA 90 -0 -1 0. D 96 IN ti PA 45 5- 6- 00 CA 80 EY ve N 04 20 20 0 RE 50 AN 26 15 16 PA D 0 PH CH PA AR AE NE MA L RA CY S LS LL TA C BL ET LO 00 09 09 0 30 30 ME 12 GA Ac RA 78 -0 -0 0. D 90 IN ti TA 15 1- 1- 00 CA 04 EY ve DI 07 20 20 0 RE 71 NE 70 16 16 PA 1 PH CH 10 AR AE MA L MG CY S TA LL BL C ET SE 00 10 08 0 12 30 ME 12 GA Ac NN 90 -2 -2 00 D 84 IN ti A- 46 9- 5- .0 CA 88 EY ve LA 52 20 20 00 RE 51 X 26 15 16 PA 8. 1 PH CH 6 AR AE MG MA L CY S TA BL LL ET C 00 07 08 0 30 30 ME 12 GA Ac TA 53 -2 -2 0. D 82 IN ti PA 63 5- 2- 00 CA 65 EY ve N 79 20 20 0 RE 09 D3 00 16 16 PA 1 PH CH 2, AR AE 00 MA L 0 CY S UN IT LL C SO FT GE L ST 00 02 08 0 30 30 ME 12 GA Ac OO 53 -2 -2 0. D 83 IN ti L 61 3- 2- 00 CA 20 EY ve SO 06 20 20 0 RE 28 FT 41 16 16 PA EN 0 PH CH ER AR AE MA L 25 CY S 0 MG LL C SO FT GE L FE 00 10 08 0 30 30 ME 12 GA Ac RR 53 -1 -2 0. D 81 IN ti OU 61 0- 0- 00 CA 18 EY ve S 00 20 20 0 RE 40 CLARK 90 15 16 PA LF 1 PH CH AT AR AE E MA L 32 CY S 5 MG LL C TA BL ET 00 11 08 0 30 30 ME 12 GA Ac TA 90 -0 -1 0. D 79 IN ti PA 45 5- 7- 00 CA 28 EY ve N 04 20 20 0 RE 11 AN 26 15 16 PA D 0 PH CH PA AR AE NE MA L RA CY S LS LL TA C BL ET 00 10 08 0 30 30 ME 12 GA Ac PI 60 -0 -1 0. D 77 IN ti RI 30 9- 5- 00 CA 97 EY ve N 02 20 20 0 RE 73 EC 63 15 16 PA 2 PH CH 81 AR AE MA L MG CY S TA LL BL C ET MA 00 10 08 0 11 14 ME 12 GA Ac PA 90 -1 -0 20 D 74 IN ti P 41 0- 5- .0 CA 68 EY ve 50 98 20 20 00 RE 78 0 86 15 16 PA MG 1 PH CH AR AE TA MA L BL CY S ET LL C 00 07 07 0 30 30 ME 12 GA Ac TA 90 -2 -2 0. D 70 IN ti PA 40 8- 8- 00 CA 32 EY ve N 52 20 20 0 RE 12 C 38 16 16 PA 50 0 PH CH 0 AR AE MG MA L CY S TA BL LL ET C SE 00 10 07 0 12 30 ME 12 GA Ac NN 90 -2 -2 00 D 68 IN ti A- 46 9- 6- .0 CA 52 EY ve LA 52 20 20 00 RE 91 X 26 15 16 PA 8. 1 PH CH 6 AR AE MG MA L CY S TA BL LL ET C 00 07 07 0 30 30 ME 12 GA Ac TA 53 -2 -2 0. D 69 IN ti PA 63 5- 5- 00 CA 13 EY ve N 79 20 20 0 RE 18 D3 00 16 16 PA 1 PH CH 2, AR AE 00 MA L 0 CY S UN IT LL C SO FT GE L FE 00 10 07 0 30 30 ME 12 GA Ac RO 90 -1 -2 0. D 67 IN ti CLARK 47 0- 2- 00 CA 26 EY ve L 59 20 20 0 RE 65 32 08 15 16 PA 5 2 PH CH MG AR AE MA L TA CY S BL ET LL C BI 00 03 07 0 15 15 ME 12 GA Ac SC 90 -1 -1 0. D 66 IN ti OL 45 0- 8- 00 CA 34 EY ve AX 05 20 20 0 RE 86 86 16 16 PA 10 0 PH CH AR AE MG MA L CY S CLARK PP LL OS C IT OR Y 00 11 07 0 30 30 ME 12 GA Ac TA 90 -0 -1 0. D 65 IN ti PA 45 5- 8- 00 CA 97 EY ve N 04 20 20 0 RE 60 AN 26 15 16 PA D 0 PH CH PA AR AE NE MA L RA CY S LS LL TA C BL ET 00 10 07 0 30 30 ME 12 GA Ac PI 60 -0 -1 0. D 65 IN ti RI 30 9- 6- 00 CA 73 EY ve N 02 20 20 0 RE 27 EC 63 15 16 PA 2 PH CH 81 AR AE MA L MG CY S TA LL BL C ET ST 00 02 07 0 30 30 ME 12 GA Ac OO 53 -2 -1 0. D 63 IN ti L 61 3- 1- 00 CA 34 EY ve SO 06 20 20 0 RE 73 FT 41 16 16 PA EN 0 PH CH ER AR AE MA L 25 CY S 0 MG LL C SO FT GE L SE 00 10 06 0 12 30 ME 12 GA Ac NN 90 -2 -2 00 D 58 IN ti A- 46 9- 7- .0 CA 07 EY ve LA 52 20 20 00 RE 66 X 26 15 16 PA 8. 1 PH CH 6 AR AE MG MA L CY S TA BL LL ET C FE 00 10 06 0 30 30 ME 12 GA Ac RO 90 -1 -2 0. D 56 IN ti CLARK 47 0- 2- 00 CA 63 EY ve L 59 20 20 0 RE 47 32 08 15 16 PA 5 2 PH CH MG AR AE MA L TA CY S BL ET LL C 00 11 06 0 30 30 ME 12 GA Ac TA 90 -0 -1 0. D 55 IN ti PA 45 5- 8- 00 CA 21 EY ve N 04 20 20 0 RE 00 AN 26 15 16 PA D 0 PH CH PA AR AE NE MA L RA CY S LS LL TA C BL ET 00 10 06 0 30 30 ME 12 GA Ac PI 60 -0 -1 0. D 54 IN ti RI 30 9- 7- 00 CA 90 EY ve N 02 20 20 0 RE 56 EC 63 15 16 PA 2 PH CH 81 AR AE MA L MG CY S TA LL BL C ET BI 00 03 06 0 15 15 ME 12 GA Ac SC 90 -1 -1 0. D 55 IN ti OL 45 0- 7- 00 CA 42 EY ve AX 05 20 20 0 RE 04 86 16 16 PA 10 0 PH CH AR AE MG MA L CY S CLARK PP LL OS C IT OR Y ST 00 02 06 0 30 30 ME 12 GA Ac OO 53 -2 -1 0. D 53 IN ti L 61 3- 3- 00 CA 62 EY ve SO 06 20 20 0 RE 57 FT 41 16 16 PA EN 0 PH CH ER AR AE MA L 25 CY S 0 MG LL C SO FT GE L SE 00 10 05 0 12 30 ME 12 GA Ac NN 90 -2 -2 00 D 48 IN ti A 45 9- 8- .0 CA 35 EY ve 8. 16 20 20 00 RE 71 6 56 15 16 PA MG 1 PH CH AR AE TA MA L BL CY S ET LL C FE 00 10 05 0 30 30 ME 12 GA Ac RO 90 -1 -2 0. D 45 IN ti CLARK 47 0- 3- 00 CA 78 EY ve L 59 20 20 0 RE 37 32 08 15 16 PA 5 2 PH CH MG AR AE MA L TA CY S BL ET LL C BI 00 03 05 0 15 15 ME 12 GA Ac SC 90 -1 -2 0. D 46 IN ti OL 45 0- 1- 00 CA 12 EY ve AX 05 20 20 0 RE 33 86 16 16 PA 10 0 PH CH AR AE MG MA L CY S CLARK PP LL OS C IT OR Y 00 11 05 0 30 30 ME 12 GA Ac TA 90 -0 -2 0. D 45 IN ti PA 45 5- 0- 00 CA 09 EY ve N 04 20 20 0 RE 35 AN 26 15 16 PA D 0 PH CH PA AR AE NE MA L RA CY S LS LL TA C BL ET 00 10 05 0 30 30 ME 12 GA Ac PI 60 -0 -1 0. D 44 IN ti RI 30 9- 8- 00 CA 30 EY ve N 02 20 20 0 RE 82 EC 63 15 16 PA 2 PH CH 81 AR AE MA L MG CY S TA LL BL C ET TR 45 05 05 0 85 15 ME 12 GA Ac OL 80 -1 -1 0. D 44 IN ti AM 20 7- 7- 00 CA 21 EY ve IN 35 20 20 0 RE 63 E 65 16 16 PA SA 3 PH CH LI AR AE CY MA L LA CY S TE LL 10 C % CR EA M ST 00 02 05 0 30 30 ME 12 GA Ac OO 53 -2 -1 0. D 42 IN ti L 61 3- 3- 00 CA 78 EY ve SO 06 20 20 0 RE 12 FT 41 16 16 PA EN 0 PH CH ER AR AE MA L 25 CY S 0 MG LL C SO FT GE L SE 00 10 04 0 12 30 ME 12 GA Ac NN 90 -2 -2 00 D 38 IN ti A 45 9- 9- .0 CA 00 EY ve 8. 16 20 20 00 RE 41 6 56 15 16 PA MG 1 PH CH AR AE TA MA L BL CY S ET LL C FE 00 10 04 0 30 30 ME 12 GA Ac RO 90 -1 -2 0. D 36 IN ti CLARK 47 0- 5- 00 CA 33 EY ve L 59 20 20 0 RE 19 32 08 15 16 PA 5 2 PH CH MG AR AE MA L TA CY S BL ET LL C 00 11 04 0 30 30 ME 12 GA Ac TA 90 -0 -2 0. D 34 IN ti PA 45 5- 1- 00 CA 77 EY ve N 04 20 20 0 RE 79 AN 26 15 16 PA D 0 PH CH PA AR AE NE MA L RA CY S LS LL TA C BL ET 00 10 04 0 30 30 ME 12 GA Ac PI 60 -0 -1 0. D 33 IN ti RI 30 9- 8- 00 CA 77 EY ve N 02 20 20 0 RE 74 EC 63 15 16 PA 2 PH CH 81 AR AE MA L MG CY S TA LL BL C ET ST 00 02 04 0 30 30 ME 12 GA Ac OO 53 -2 -1 0. D 33 IN ti L 61 3- 5- 00 CA 32 EY ve SO 06 20 20 0 RE 30 FT 41 16 16 PA EN 0 PH CH ER AR AE MA L 25 CY S 0 MG LL C SO FT GE L SE 00 10 03 0 12 30 ME 12 GA Ac NN 90 -2 -3 00 D 27 IN ti A 45 9- 0- .0 CA 50 EY ve 8. 16 20 20 00 RE 78 6 56 15 16 PA MG 1 PH CH AR AE TA MA L BL CY S ET LL C FE 00 10 03 0 30 30 ME 12 GA Ac RO 90 -1 -2 0. D 27 IN ti CLARK 47 0- 9- 00 CA 31 EY ve L 59 20 20 0 RE 11 32 08 15 16 PA 5 2 PH CH MG AR AE MA L TA CY S BL ET LL C 00 11 03 0 30 30 ME 12 GA Ac TA 90 -0 -2 0. D 26 IN ti PA 45 5- 4- 00 CA 13 EY ve N 04 20 20 0 RE 04 AN 26 15 16 PA D 0 PH CH PA AR AE NE MA L RA CY S LS LL TA C BL ET ST 00 02 03 0 30 30 ME 12 GA Ac OO 53 -2 -2 0. D 24 IN ti L 61 3- 2- 00 CA 91 EY ve SO 06 20 20 0 RE 08 FT 41 16 16 PA EN 0 PH CH ER AR AE MA L 25 CY S 0 MG LL C SO FT GE L 00 10 03 0 30 30 ME 12 GA Ac PI 60 -0 -2 0. D 25 IN ti RI 30 9- 1- 00 CA 14 EY ve N 02 20 20 0 RE 48 EC 63 15 16 PA 2 PH CH 81 AR AE MA L MG CY S TA LL BL C ET BI 00 03 03 0 15 15 ME 12 GA Ac SC 90 -1 -1 0. D 21 IN ti OL 45 0- 0- 00 CA 54 EY ve AX 05 20 20 0 RE 70 86 16 16 PA 10 0 PH CH AR AE MG MA L CY S CLARK PP LL OS C IT OR Y SE 00 10 02 0 12 30 ME 12 GA Ac NN 90 -2 -2 00 D 17 IN ti A 45 9- 9- .0 CA 54 EY ve 8. 16 20 20 00 RE 30 6 56 15 16 PA MG 1 PH CH AR AE TA MA L BL CY S ET LL C FE 00 10 02 0 30 30 ME 12 GA Ac RO 90 -1 -2 0. D 17 IN ti CLARK 47 0- 9- 00 CA 54 EY ve L 59 20 20 0 RE 28 32 08 15 16 PA 5 2 PH CH MG AR AE MA L TA CY S BL ET LL C 00 11 02 0 30 30 ME 12 GA Ac TA 90 -0 -2 0. D 16 IN ti PA 45 5- 6- 00 CA 76 EY ve N 04 20 20 0 RE 44 AN 26 15 16 PA D 0 PH CH PA AR AE NE MA L RA CY S LS LL TA C BL ET 00 10 02 0 30 30 ME 12 GA Ac PI 60 -0 -2 0. D 16 IN ti RI 30 9- 6- 00 CA 76 EY ve N 02 20 20 0 RE 41 EC 63 15 16 PA 2 PH CH 81 AR AE MA L MG CY S TA LL BL C ET ST 00 02 02 0 30 30 ME 12 GA Ac OO 53 -2 -2 0. D 16 IN ti L 61 3- 3- 00 CA 16 EY ve SO 06 20 20 0 RE 99 FT 41 16 16 PA EN 0 PH CH ER AR AE MA L 25 CY S 0 MG LL C SO FT GE L NO 64 02 02 0 30 5 ME 12 GA Ac RM 25 -1 -1 00 D 14 IN ti AL 30 9- 9- .0 CA 72 EY ve 11 20 20 00 RE 74 SA 13 16 16 PA LI 0 PH CH NE AR AE MA L FL CY S US H LL SY C RI NG E HE 64 02 02 0 10 5 ME 12 GA Ac PA 25 -1 -1 00 D 14 IN ti RI 30 9- 9- .0 CA 72 EY ve N 33 20 20 00 RE 75 50 33 16 16 PA 0 5 PH CH UN AR AE IT MA L /5 CY S ML LL C (1 00 /M L) NI 00 10 10 0 30 1 ME 11 GA Ac TR 28 -0 -0 0. D 70 IN ti O- 10 2- 2- 00 CA 90 EY ve BI 32 20 20 0 RE 44 D 63 15 15 PA 2% 0 PH CH AR AE OI MA L NT CY S ME NT LL C MO 00 10 10 0 30 15 ME 11 GA Ac RP 40 -0 -0 0. D 70 IN ti HI 68 1- 1- 00 CA 82 EY ve NE 31 20 20 0 RE 36 50 15 15 PA CLARK 1 PH CH LF AR AE MA L ER CY S 15 LL C MG TA BL ET NO 00 10 10 0 10 15 ME 11 GA Ac VO 16 -0 -0 00 D 70 IN ti FI 91 1- 1- .0 CA 82 EY ve NE 85 20 20 00 RE 35 27 15 15 PA AU 5 PH CH TO AR AE CO MA L VE CY S R 30 LL G C NE ED LE MA 00 09 09 0 19 3 ME 11 GA Ac PA 90 -1 -2 0. D 69 IN ti P 41 1- 8- 00 CA 64 EY ve 50 98 20 20 0 RE 31 0 86 15 15 PA MG 1 PH CH AR AE TA MA L BL CY S ET LL C 00 09 09 0 13 13 ME 11 GA Ac TA 90 -1 -1 0. D 66 IN ti PA 45 7- 7- 00 CA 15 EY ve N 04 20 20 0 RE 56 AN 26 15 15 PA D 0 PH CH PA AR AE NE MA L RA CY S LS LL TA C BL ET FE 00 09 09 0 30 30 ME 11 GA Ac RR 60 -1 -1 0. D 66 IN ti OU 30 7- 7- 00 CA 15 EY ve S 17 20 20 0 RE 57 CLARK 92 15 15 PA LF 9 PH CH AT AR AE E MA L 32 CY S 5 MG LL C TA BL ET 63 09 09 0 20 20 ME 11 GA Ac PI 73 -1 -1 0. D 64 IN ti RI 90 1- 1- 00 CA 99 EY ve N 43 20 20 0 RE 10 81 40 15 15 PA 1 PH CH MG AR AE MA L CH CY S EW AB LL LE C TA BL ET CA 68 03 09 0 18 90 WA 73 SM Ac RV 46 -1 -0 00 L- 69 IT ti ED 20 0- 3- .0 MA 55 H ve IL 16 20 20 00 RT 9 PA OL 50 15 15 KE 5 PH [...] -0 -0 0. L- 67 RS ti PA 96 4- 3- 00 MA 45 ON [...] 15 15 EU E 5 PH GO WI AR ND OP MA A CY F 50 # MC 10 G 05 SP 91 RA Y CL 16 03 08 7 30 30 KM 68 SM Ac OP 72 -1 -1 0. AR 59 IT ti ID 90 0- 2- 00 T 40 H ve OG 21 20 20 0 PH 5 PA RE 81 15 15 AR KE L 5 MA L 75 CY D # MG 48 TA 47 BL ET LE 00 12 08 11 15 30 KM 68 PA Ac VE 16 -0 -0 0. AR 56 RS ti PA 96 4- 5- 00 T 02 ON [...] 6- 4- 00 T 23 ON ve PA 21 20 20 0 PH 7 S DE 61 14 15 AR JE 0 MA RE 40 CY MY # C MG 48 TA 47 BL ET AT 00 04 08 4 30 30 KM 68 SM Ac OR 37 -0 -0 0. AR 59 IT ti VA 83 7- 4- 00 [address] 95 20 20 0 PH 7 PA AT 37 15 15 AR KE IN 7 MA L CY D 80 # MG 48 47 TA BL ET WI 59 04 07 11 85 17 KM [...] 6- 8- 00 T 23 ON ve PA 21 20 20 0 PH 7 S DE 61 14 15 AR JE 0 MA RE 40 CY MY # C MG 48 TA 47 BL ET AT 00 04 07 4 30 30 KM 68 SM Ac OR 37 -0 -0 0. AR 59 IT ti VA 83 7- 8- 00 [address] 95 20 20 0 PH 7 PA AT 37 15 15 AR KE IN 7 MA L CY D 80 # MG 48 47 TA BL ET CL 16 03 07 7 30 30 KM 68 SM Ac OP 72 -1 -0 0. AR 59 IT ti ID 90 0- 8- 00 T 40 H ve OG 21 20 20 0 PH 5 PA RE 81 15 15 AR KE L 5 MA L 75 CY D # MG 48 TA 47 BL ET LE 00 12 06 11 15 30 KM 68 PA Ac VE 16 -0 -2 0. AR 56 RS ti PA 96 4- 9- 00 T 02 ON [...] 6- 3- 00 T 23 ON ve PA 21 20 20 0 PH 7 S DE 61 14 15 AR JE 0 MA RE 40 CY MY # C MG 48 TA 47 BL ET CL 16 03 06 7 30 30 KM 68 SM Ac OP 72 -1 -0 0. AR 59 IT ti ID 90 0- 3- 00 T 40 H ve OG 21 20 20 0 PH 5 PA RE 81 15 15 AR KE L 5 MA L 75 CY D # MG 48 TA 47 BL ET AT 00 04 06 4 30 30 KM 68 SM Ac OR 37 -0 -0 0. AR 59 IT ti VA 83 7- 3- 00 [address] 95 20 20 0 PH 7 PA AT 37 15 15 AR KE IN [...] RE CE CY MY TA # C PA NO 48 PH 47 N 10 -3 [...] 6- 4- 00 T 23 ON ve PA 21 20 20 0 PH 7 S DE 61 14 15 AR JE 0 MA RE 40 CY MY # C MG 48 TA 47 BL ET RO 43 03 05 1 60 30 KM 68 SM Ac PI 54 -1 -0 0. AR 59 IT ti NI 70 0- 4- 00 T 40 H ve RO 27 20 20 0 PH 6 PA LE 11 15 15 AR KE 0 MA L HC CY D L # 2 MG 48 47 TA BL ET AT 00 04 05 4 30 30 KM 68 SM Ac OR 37 -0 -0 0. AR 59 IT ti VA 83 7- 4- 00 [address] 95 20 20 0 PH 7 PA AT 37 15 15 AR KE IN 7 MA L CY D 80 # MG 48 47 TA BL ET CL 16 03 05 7 30 30 KM 68 SM Ac OP 72 -1 -0 0. AR 59 IT ti ID 90 0- 4- 00 T 40 H ve OG 21 20 20 0 PH 5 PA RE 81 15 15 AR KE L [...] C CA PS 48 UL 47 E WI 59 04 04 11 85 17 KM [...] PH 1 1 01 15 15 AR PA 4 MA CH GM CY AE /1 [...] OG 21 20 20 0 PH 5 PA RE 81 15 15 AR KE L 5 MA L 75 CY D # MG 48 TA 47 BL ET RO 43 03 04 1 60 30 KM 68 SM Ac PI 54 -1 -0 0. AR 59 IT ti NI 70 0- 7- 00 T 40 H ve RO 27 20 20 0 PH 6 PA LE 11 15 15 AR KE 0 MA L HC CY D L # 2 MG 48 47 TA BL ET AT 00 04 04 4 30 30 KM 68 SM Ac OR 37 -0 -0 0. AR 59 IT ti VA 83 7- 7- 00 T [address] 95 20 20 0 PH 7 PA AT 37 15 15 AR KE IN [...] ve 01 20 20 0 [place] 38 PA 50 36 15 15 2 KE 8 CL L MG IN D IC CA PS PH UL AR E MA CY LI 00 03 03 1 90 90 KE 52 SM Ac SI 17 -1 -1 0. NT 60 IT ti NO 23 0- 0- 00 UC 92 H ve WI 75 20 20 0 [place] 71 PA [place] 98 15 15 6 KE 0 CL L 10 IN D IC MG PH TA AR BL MA ET CY LE 00 03 03 1 15 83 KE 52 SM Ac VE 16 -1 -1 0. NT 60 IT ti PA 96 0- 0- 00 UC 92 H ve R 43 20 20 0 [place] 71 PA FL 81 15 15 8 KE EX 0 CL L TO IN D UC IC H 10 PH 0 AR UN MA IT CY S/ ML AM 00 03 03 0 40 8 KE 52 SM Ac IT 60 -1 -1 .0 NT 60 IT ti RI 32 0- 0- 00 UC 92 H ve PT 21 20 20 [place] 71 PA YL 32 15 15 3 KE IN 1 CL L E IN D HC IC L 25 PH AR MG MA CY TA B RO 23 03 03 0 60 30 KE 52 SM Ac PI 15 -1 -1 0. NT 60 IT ti NI 50 0- 0- 00 UC 92 H ve RO 12 20 20 0 [place] 71 PA LE 40 15 15 2 KE 1 CL L HC IN D L IC 2 MG PH AR TA MA BL CY ET NO 00 03 03 1 15 62 KE 52 SM Ac VO 16 -1 -1 0. NT 60 IT ti LO 96 0- 0- 00 UC 92 H ve G 33 20 20 0 [place] 71 PA 10 91 15 15 7 KE 0 0 CL L UN IN D IT IC S/ ML PH AR FL MA EX CY PE N AT 60 03 03 1 30 30 KE 52 SM Ac OR 50 -1 -1 0. NT 60 IT ti VA 52 0- 0- 00 UC [address] 67 20 20 0 [place] 72 PA AT 10 15 15 0 KE IN 9 CL L IN D 80 IC MG PH AR TA MA BL CY ET ON 53 03 03 1 10 25 KE 52 SM Ac ET 88 -1 -1 00 NT 60 IT ti OU 50 0- 0- .0 UC 92 H ve CH 24 20 20 00 [place] 73 PA 51 15 15 0 KE UL 0 CL L TR IN D A IC TE ST PH AR ST MA RI CY PS ON 53 03 03 1 10 30 KE 52 SM Ac ET 88 -1 -1 00 NT 60 IT ti OU 50 0- 0- .0 UC 92 H ve CH 14 20 20 00 [place] 72 PA 30 15 15 9 KE DE 1 CL L LI IN D CA IC 33 PH G AR LA MA NC CY ET S CL 55 03 03 2 30 30 KE 52 SM Ac OP 11 -1 -1 0. NT 60 IT ti ID 10 0- 0- 00 UC 92 H ve OG 19 20 20 0 [place] 71 PA RE 69 15 15 9 KE L 0 CL L 75 IN D IC MG PH TA AR BL MA ET CY ON 53 03 03 0 10 30 KE 52 SM Ac ET 88 -1 -1 .0 NT 60 IT ti OU 50 0- 0- 00 UC 92 H ve CH 44 20 20 [place] 72 PA 80 15 15 1 KE UL 1 CL L TR IN D A2 IC GL PH UC AR OS MA E CY SY ST 00 03 03 1 90 90 KE 52 SM Ac PI 60 -1 -1 0. NT 60 IT ti RI 30 0- 0- 00 UC 92 H ve N 02 20 20 0 [place] 71 PA EC 62 15 15 4 KE 2 CL L 81 IN D IC MG PH TA AR BL MA ET CY CA 68 03 03 1 18 90 KE 52 SM Ac RV 38 -1 -1 00 NT 60 IT ti ED 20 0- 0- .0 UC 92 H ve IL 09 20 20 00 [place] 72 PA OL 50 15 15 2 KE 5 CL L 25 IN D IC MG PH TA AR BL MA ET CY FU 00 10 03 11 60 30 KM 68 PA Ac RO 37 -0 -0 0. AR 54 RS ti SE 80 6- 7- 00 T 23 ON ve PA 21 20 20 0 PH 7 S [...] 69 20 20 0 PH 7 S PA 61 14 15 AR KE X 9 [...] 11 60 30 KM 68 PA Ac WI 18 -0 -2 0. AR 53 RS [...] 6- 8- 00 T 23 ON ve PA 21 20 20 0 PH 7 S [...] 11 60 30 KM 68 PA Ac WI 18 -0 -1 0. AR 53 RS [...] 6- 7- 00 T 23 ON ve PA 21 20 20 0 PH 7 S [...] 11 60 30 KM 68 PA Ac WI 18 -0 -1 0. AR 53 RS [...] 6- 1- 00 T 23 ON ve PA 29 20 20 0 PH 7 S [...] 11 60 30 KM 68 PA Ac WI 18 -0 -0 0. AR 53 RS [...] 6- 6- 00 T 23 ON ve PA 29 20 20 0 PH 7 S [...] 5- 7- 00 T 24 ES ve PA 29 20 20 0 PH 4 S [...] 11 60 30 KM 68 PA Ac WI 18 -0 -0 0. AR 53 RS [...] 5- 1- 00 T 24 ES ve PA 21 20 20 0 PH 4 S [...] TE ST [address] RI PS WI 59 06 07 11 85 25 KM [...] -1 -1 0. AR 48 LL ti WI 80 9- 5- 00 T 97 ve [...] 69 20 20 0 PH 7 S PA 61 14 14 AR KE X 9 [...] 5- 0- 00 T 24 ES ve PA 21 20 20 0 PH 4 S [...] L 50 48 47 MG TA B WI 59 06 06 11 85 25 KM [...] -1 -0 0. AR 48 LL ti WI 80 9 9 T 97 ve OL [...] 69 20 20 0 PH 7 S PA 61 14 14 AR KE X 9 [...] 5- 1- 00 T 24 ES ve PA 21 20 20 0 PH 4 S [...] 69 20 20 0 PH 7 S PA 61 14 14 AR KE X 9 MA LL 70 CY Y -3 # 0 FL 48 EX 47 PE N SY RN ME 00 09 05 6 60 30 KM 68 CASTELAN Ac TO 37 -1 -0 0. AR 48 LL ti WI 80 9- 5- 00 T 97 ve [...] 5- 2- 00 T 24 ES ve PA 21 20 20 0 PH 4 S [...] 5 IN RA CE IC J TA PA PH NO AR PH MA N CY [...] -1 -2 0. AR 48 LL ti WI 80 9- 7- 00 T 97 ve [...] 5 IN RA CE IC J TA PA PH NO AR PH MA N CY [...] 5- 5- 00 T 24 ES ve PA 21 20 20 0 PH 4 S [...] IN RE CE IC MY TA C PA PH NO AR PH MA N CY [...] 69 20 20 0 PH 2 S PA 61 13 14 AR JE X 9 [...] 80 5- 9 T 93 ON ve PA 21 20 20 0 PH 2 S DE 61 13 14 AR JE 0 MA RE 40 CY MY # C MG 48 TA 47 BL ET ME 00 09 01 11 60 30 KM 68 PA Ac TO 37 -1 -2 0. AR 43 RS ti WI 80 9- 9- 00 T 88 ON [...] IN RE CE IC MY TA C PA PH NO AR PH MA N CY [...] 5- 9- 00 T 93 ON ve PA 21 20 20 0 PH 2 S [...] -1 -1 0. AR 43 RS ti WI 80 9- 9- 00 T 88 ON [...] 69 20 20 0 PH 2 S PA 61 13 13 AR JE X 9 [...] 7- 0- 00 T 23 ON ve PA 21 20 20 0 PH 8 S [...] -1 -2 0. AR 43 RS ti WI 80 9- 0- 00 T 88 ON [...] 69 20 20 0 PH 2 S PA 61 13 13 AR JE X 9 [...] -1 -2 0. AR 43 RS ti WI 80 9- 3- 00 T 88 ON [...] 7- 3- 00 T 23 ON ve PA 21 20 20 0 PH 8 S [...] -1 -1 0. AR 43 RS ti WI 80 9- 9- T 88 ON ve [...] 7- 8- 00 T 23 ON ve PA 21 20 20 0 PH 8 S [...] 7- 6- 00 T 23 ON ve PA 21 20 20 0 PH 8 S [...] 7- 8- 00 T 23 ON ve PA 21 20 20 0 PH 8 S [...] -0 -2 0. AR 38 RS ti WI 80 6- 8- 00 T 07 ON [...] 69 20 20 0 PH 1 S PA 61 12 13 AR JE X 9 [...] 7- 7- 00 T 23 ON ve PA 21 20 20 0 PH 8 S [...] -0 -3 0. AR 38 RS ti WI 80 6- 1- 00 T 07 ON [...] 69 20 20 0 PH 1 S PA 61 12 13 AR JE X 9 [...] 69 20 20 0 PH 1 S PA 61 12 13 AR JE X 9 [...] -0 -0 0. AR 38 RS ti WI 80 6- 2- 00 T 07 ON [...] 7- 5- 00 T 83 ON ve PA 21 20 20 0 PH 2 S [...] 69 20 20 0 PH 1 S PA 61 12 13 AR JE X 9 MA RE 70 CY MY -3 # C 0 FL 48 EX 47 PE N SY RN ME 00 02 04 4 60 30 KM 68 PA Ac TO 37 -0 -0 0. AR 38 RS ti WI 80 6- 5- 00 T 07 ON [...] -0 -0 0. AR 38 RS ti WI 80 6- 8- 00 T 07 ON [...] 7- 8- 00 T 83 ON ve PA 21 20 20 0 PH 2 S [...] 69 20 20 0 PH 1 S PA 61 12 13 AR JE X 9 [...] 4- 7- 00 T 12 ON ve PA 21 20 20 PH 8 S DE [...] -0 -2 .0 AR 11 YN ti WI 40 4- 7- 00 T 00 E ve OL 47 20 20 PH 6 VA OL 75 11 11 AR UG 8 MA HN TA CY W RT 71 RA 74 TE # 50 71 74 MG TA B WI 00 10 10 0 21 6 KM [...] SE 80 8 T 12 ON ve PA 21 20 20 PH 8 S DE 61 11 11 AR JE 0 MA RE 40 CY MY 71 C MG 74 # TA BL 71 ET 74 ME 00 01 09 6 60 30 KM 69 PA Ac TO 09 -0 -2 .0 AR 11 YN ti WI 30 4- 8 T 00 E ve [...] G 69 20 20 PH 3 E PA 61 11 11 AR SA X 9 [...] 4- 1- 00 T 00 E ve PA 21 20 20 PH 9 VA DE [...] -0 -3 .0 AR 11 YN ti WI 30 4- 0- 00 T 00 E [...] G 69 20 20 PH 3 E PA 61 11 11 AR SA X 9 [...] 4- 3- 00 T 00 E ve PA 21 20 20 PH 9 VA DE 61 11 11 AR UG 0 MA HN 40 CY W 71 MG 74 # TA BL 71 ET 74 CR 00 01 08 6 30 30 KM 69 [facility] ES 31 -0 -0 .0 AR 11 YN ti TO 00 4- 3- 00 T 01 E ve R 75 20 20 PH 0 VA 10 19 11 11 AR UG 0 MA HN MG CY W 71 TA 74 BL # ET 71 74 ME 00 01 07 6 60 30 KM 69 [facility] TO 09 -0 -2 .0 AR 11 YN ti WI 30 4- 2- 00 T 00 E ve OL 73 20 20 PH 6 VA OL 31 11 11 AR UG 0 MA HN TA CY W RT 71 RA 74 TE # 50 71 74 MG TA B EN 00 01 07 6 60 30 KM 69 [facility] AL 09 -0 -2 .0 AR 11 YN ti AP 30 4- 2- 00 T 00 E ve RI 02 20 20 PH 8 VA L 81 11 11 AR UG MA 0 MA HN LE CY W AT 71 E 74 10 # MG 71 74 TA B GA 14 04 07 3 60 30 KM 69 [facility] BA 55 -2 -2 .0 AR [...] 11 AR SA E 9 MA RA WI CY H OP 71 M 74 50 # MC 71 G 74 SP RA Y NO 00 06 07 3 15 30 KM 69 JU Ac VO 16 -2 -[address] ti LO 93 1- 2- 00 T 61 IC ve G 69 20 20 PH 3 E PA 61 11 11 AR SA X 9 [...] 4- 0- 00 T 00 E ve PA 21 20 20 PH 9 VA DE [...] 11 AR SA E 9 MA RA WI CY H OP 71 M 74 50 # MC 71 G 74 SP RA Y NO 00 06 06 3 15 30 KM 69 JU Ac VO 16 -2 -[address] ti LO 93 1- 2- 00 T 61 IC ve G 69 20 20 PH 3 E PA 61 11 11 AR SA X 9 [...] -0 -2 .0 AR 11 YN ti WI 30 4- 0- 00 T 00 E [...] 4- 2- 00 T 00 E ve PA 21 20 20 PH 9 VA DE [...] 11 AR SA E 9 MA RA WI CY H OP 71 M 74 50 [...] -0 -2 .0 AR 11 YN ti WI 30 4- 4- 00 T 00 E [...] G 69 20 20 PH 5 Y PA 61 10 11 AR JE X 9 [...] 4- 5- 00 T 00 E ve PA 21 20 20 PH 9 VA DE [...] 11 AR SA E 9 MA RA WI CY H OP 71 M 74 50 [...] -0 -2 .0 AR 07 YN ti WI 30 1- 7- 00 T 00 E [...] G 69 20 20 PH 5 Y PA 61 10 11 AR JE X 9 [...] 4- 8- 00 T 00 E ve PA 21 20 20 PH 9 VA DE [...] G 69 20 20 PH 5 Y PA 61 10 11 AR JE X 9 [...] 11 AR JE E 9 MA NN WI CY IF OP 71 ER 74 B 50 # MC 71 G 74 SP RA Y ME 00 11 03 6 60 30 KM 69 PA Ac TO 09 -0 -3 .0 AR 07 YN ti WI 30 1- 0- 00 T 00 E [...] 4- 4- 00 T 00 E ve PA 21 20 20 PH 9 VA DE [...] -0 -2 .0 AR 07 YN ti WI 30 1- 8- 00 T 00 E [...] G 69 20 20 PH 5 Y PA 61 10 11 AR JE X 9 [...] 11 AR JE E 9 MA NN WI CY IF OP 71 ER 74 B [...] 2- 5- 00 T 18 Y ve PA 21 20 20 PH 5 AZAM DE [...] -0 -2 .0 AR 07 YN ti WI 80 1- 6- 00 T 00 E [...] 11 AR JE E 9 MA NN WI CY IF OP 71 ER 74 B [...] G 69 20 20 PH 5 Y PA 61 10 11 AR JE X 9 [...] 2- 6- 00 T 18 Y ve PA 21 20 20 PH 5 AZAM DE [...] G 69 20 20 PH 5 Y PA 61 10 10 AR JE X 9 [...] 10 AR JE E 6 MA NN WI CY IF OP 71 ER 74 B [...] -0 -2 .0 AR 07 YN ti WI 80 1- 9- 00 T 00 E [...] 2- 6- 00 T 18 Y ve PA 21 20 20 PH 5 AZAM DE [...] -0 -2 .0 AR 07 YN ti WI 30 1- 9- 00 T 00 E [...] G 69 20 20 PH 8 TH PA 61 10 10 AR X 9 MA [...] 2- 8- 00 T 18 Y ve PA 21 20 20 PH 5 AZAM DE [...] -0 -0 .0 AR 07 YN ti WI 30 1- 1- 00 T 00 E [...] 2- 1- 00 T 18 Y ve PA 21 20 20 PH 5 AZAM DE [...] -3 -0 .0 AR 94 YN ti WI 30 1- 2- 00 T 40 E [...] G 69 20 20 PH 8 TH PA 61 10 10 AR X 9 MA [...] 2- 3- 00 T 18 Y ve PA 21 20 20 PH 5 AZAM DE [...] -3 -0 .0 AR 94 YN ti WI 30 1- 2- 00 T 40 E [...] 8- 7- 00 T 58 Y ve PA 29 20 20 PH 9 AZAM DE [...] G 69 20 20 PH 3 TH PA 61 10 10 AR X 9 MA [...] -3 -0 .0 AR 94 YN ti WI 30 1- 2- 00 T 40 E [...] 8- 5- 00 T 58 Y ve PA 29 20 20 PH 9 AZAM DE [...] G 69 20 20 PH 3 TH PA 61 10 10 AR X 9 MA [...] -3 -0 .0 AR 94 YN ti WI 30 1- 2- 00 T 40 E [...] 8- 6- 00 T 58 Y ve PA 21 20 20 PH 9 AZAM DE [...] G 69 20 20 PH 3 TH PA 61 10 10 AR X 9 MA RA 70 CY -3 71 ND 0 74 ER FL # S EX PE 71 N 74 SY RN ME 00 06 06 21 6 RI 62 MU Ac TH 60 -0 -0 .0 TE 93 TI ti YL 34 7- 7- 00 98 SO ve WI 59 20 20 AI ED 31 10 10 D AN NI [address] SO AR EW LO MA M NE CY 4 02 MG 29 0 DO # SE 02 PK 29 ME 00 03 06 6 60 30 KM 68 PA Ac TO 09 -3 -0 .0 AR 94 YN ti WI 30 1- 1- 00 T 40 E [...] 8- 5- 00 T 58 Y ve PA 21 20 20 PH 9 AZAM DE [...] -3 -2 .0 AR 94 YN ti WI 30 1- 9- 00 T 40 E [...] G 69 20 20 PH 1 TH PA 61 10 10 AR X 9 MA [...] 8- 4- 00 T 58 Y ve PA 62 20 20 PH 9 AZAM DE [...] -3 -3 .0 AR 94 YN ti WI 30 1- 1- 00 T 40 E [...] 8- 8- 00 T 58 Y ve PA 62 20 20 PH 9 AZAM DE [...] 1- 8- 00 T 44 IN ve PA 62 20 20 PH 8 G DE 50 09 10 AR MA 1 MA LE 40 CY SH 71 EA MG 74 # TA BL 71 ET 74 64 03 03 1 30 30 KM 68 Ac 72 -0 -0 .0 AR 92 HB ti 00 5- 5 00 T 77 Y ve 20 20 20 PH 7 AAZM 31 10 10 AR NE 0 MA S CY LA 71 UR 74 A # P 71 74 ME 00 08 03 6 60 30 KM 68 PA Ac TO 09 -3 -0 .0 AR 80 YN ti WI 30 1 T 99 E ve OL [...] 1- 1- 00 RT 44 IN ve PA 21 20 20 8 G DE 61 09 10 PH MA 0 AR LE 40 M SH #7 EA MG 17 4 TA BL ET ME 00 08 02 05 60 30 K- 68 PA Ac TO 09 -3 -1 .0 MA 80 YN ti WI 30 1- - 00 RT 99 E [...] 1- 4- 00 RT 44 IN ve PA 21 20 20 8 G DE 61 [...] -3 -1 .0 MA 80 YN ti WI 30 1- 4- 00 RT 99 E [...] -3 -1 .0 MA 80 YN ti WI 30 1- 7- 00 RT 99 E [...] 1- 7- 00 RT 44 IN ve PA 21 20 20 8 G DE 61 [...] 8- 9- 00 RT 77 IN ve PA 21 20 20 0 G DE 61 [...] -3 -0 .0 MA 80 YN ti WI 80 1- 5- 00 RT 99 E [...] 8- 2- 00 RT 77 IN ve PA 21 20 20 0 G DE 61 [...] -3 -0 .0 MA 80 YN ti WI 80 1- 8- 00 RT 99 E [...] 8- 4- 00 RT 77 IN ve PA 21 20 20 0 G DE 61 [...] -3 -1 .0 MA 80 YN ti WI 80 1- 0- 00 RT 99 E [...] 8- 7- 00 RT 77 IN ve PA 21 20 20 0 G DE 61 [...] -2 -1 .0 MA 58 YN ti WI 80 5- 3- 00 RT 62 E [...] 8- 0- 00 RT 77 IN ve PA 21 20 20 0 G DE 61 [...] -2 -1 .0 MA 58 YN ti WI 80 5- 6- 00 RT 62 E [...] 8- 2- 00 RT 77 IN ve PA 21 20 20 0 G DE 61 [...] -2 -0 .0 MA 58 YN ti WI 80 5- 4- 00 RT 62 E [...] 2- 7- 00 RT 52 IN ve PA 00 20 20 0 5 G N 80 09 09 PH MA HC 5 AR LE L M SH 50 #7 EA 0 17 MG 4 TA BL ET FU 00 02 05 03 30 30 K- 68 DU Ac RO 37 -1 -0 .0 MA 68 NN ti SE 80 2- 7- 00 RT 82 IN ve PA 21 20 20 3 G DE 61 [...] -2 -0 .0 MA 58 YN ti WI 80 5- 7- 00 RT 62 E [...] 2- 3- 00 RT 82 IN ve PA 21 20 20 3 G DE 61 [...] 2- 3- 00 RT 52 IN ve PA 00 20 20 0 5 G N [...] -2 -0 .0 MA 58 YN ti WI 80 5- 9- 00 RT 62 E [...] 2- 6- 00 RT 82 IN ve PA 21 20 20 3 G DE 61 [...] 2- 6- 00 RT 52 IN ve PA 00 20 20 0 5 G N [...] -2 -1 .0 MA 58 YN ti WI 80 5- 2- 00 RT 62 E [...] 2- 6- 00 RT 82 IN ve PA 21 20 20 3 G DE 61 [...] -2 -1 .0 MA 58 YN ti WI 80 5- 2- 00 RT 62 E [...] 1- 0- 00 RT 23 E ve PA 21 20 20 0 VA DE 61 [...] 2- 0- 00 RT 52 IN ve PA 00 20 20 0 5 G N 80 09 09 PH MA HC 5 AR LE L M SH 50 #7 EA 0 17 MG 4 TA BL ET WI 00 01 01 00 24 6 EC [...] 10 01 01 90 30 K- 44 PA Ac RI 07 -2 -0 .0 MA [...] -2 -0 .0 MA 58 YN ti WI 80 5 RT 62 E ve OL 03 20 20 2 VA OL 21 08 09 PH UG 0 AR HN TA M W RT #7 RA 17 TE 4 50 MG TA B FU 00 07 01 05 30 30 K- 68 PA Ac RO 37 -2 -0 .0 MA 56 YN ti SE 80 1 RT 23 E ve PA 21 20 20 0 VA DE 61 [...] 10 12 01 12 30 K- 68 PA Ac AM 37 -2 -0 0. MA [...] 1- 4- 00 RT 23 E ve PA 21 20 20 0 VA DE 61 08 08 PH UG 0 AR HN 40 M W #7 MG 17 4 TA BL ET ME 00 08 12 03 60 30 K- 68 PA Ac TO 37 -2 -0 .0 MA 58 YN ti WI 80 5- 4- 00 RT 62 E [...] 10 11 00 12 30 K- 44 PA Ac 40 -2 -0 0. MA 53 [...] 10 11 00 90 30 K- 44 PA Ac RI 07 -2 -0 .0 MA 53 CK ti CA 11 8- 7- 00 RT 16 ve 01 20 20 6 GR 15 66 08 08 PH EG 0 8 AR OR MG M Y #7 E CA 17 PS 4 UL E TR 00 10 11 00 12 30 K- 68 PA Ac AM 37 -2 -0 0. MA [...] 80 1 7- RT 23 E ve PA 21 20 20 0 VA DE 61 08 08 PH UG 0 AR HN 40 M W #7 MG 17 4 TA BL ET ME 00 08 11 02 60 30 K- 68 PA Ac TO 37 -2 -0 .0 MA 58 YN ti WI 80 5- 7- 00 RT 62 E [...] 1- 9- 00 RT 23 E ve PA 21 20 20 0 VA DE 61 08 08 PH UG 0 AR HN 40 M W #7 MG 17 4 TA BL ET ME 00 08 10 01 60 30 K- 68 PA Ac TO 37 -2 -0 .0 MA 58 YN ti WI 80 5- 9- RT 62 E ve [...] -2 -1 .0 MA 58 YN ti WI 80 5- RT 62 E ve OL [...] SE 80 1 RT 23 E ve PA 21 20 20 0 VA DE 61 [...] 80 1- 4- RT 23 E ve PA 21 20 20 0 VA DE 61 [...] 00 60 30 K- 68 BA Ac WI 18 -1 -1 .0 MA 53 IL [...] 08 PH CH E 9 AR RI WI M ST OP #7 OP 17 HE [...] SE 80 05-23- RT 98 EY ve PA 21 20 20 2 DE 61 08 [...] MG 4 R M TA BL ET WI 68 05 06 00 12 4 K- [...] 4- 5- 00 R 51 Av ve PA 96 20 20 TR ai DE 61 [...] 08 AC la E 9 E bl WI PH e OP M IN 50 C [...] 4- 8- 00 R 51 Av ve PA 96 20 20 TR ai DE 61 [...] 08 AC la E 9 E bl WI PH e OP M IN 50 C [...] 8- 7- 00 RT 60 Av ve PA 21 20 20 5 ai DE 61 08 08 PH la 0 AR bl 40 M e #7 MG 17 4 TA BL ET ME 00 03 04 00 60 30 K- 68 No Ac TO 37 -1 -1 .0 MA 48 t ti WI 80 8- 7- 00 RT 60 Av [...] 4- 0- 00 R 51 Av ve PA 96 20 20 TR ai DE 61 [...] 08 AC la E 9 E bl WI PH e OP M IN 50 C [...] 3- 0- 00 R 01 Av ve PA 03 20 20 TR ai N 00 [...] 7- 6- 00 RT 16 Av ve PA 21 20 20 1 ai DE 61 [...] 1- 6- 00 R 69 Av ve PA 02 20 20 0 TR ai N [...] -2 -2 .0 MA 43 t ti WI 80 7- 6- 00 RT 16 Av [...] 1- 5- 00 R 69 Av ve PA 02 20 20 0 TR ai N 80 07 08 AC la HC 5 E bl L PH e 50 M 0 IN MG C TA BL ET FU 00 08 03 01 30 30 K- 68 No Ac RO 37 -2 -2 .0 MA 43 t ti SE 80 7- 5- 00 RT 16 Av ve PA 21 20 20 1 ai DE 61 [...] -2 -2 .0 MA 43 t ti WI 80 7- 5- 00 RT 16 Av [...] concent ration Ampicil 03-14-2 >= 32 complet klelie/sul 017 ug/ml ed bactam 06:22 suscept ibility [...] SQUARE METERS Comment: If this patient is -Gibralt[place], then multiply the Comment: result by 1.210. [...] 017 K/mm3 ed monocyt 06:20 e count Swift % = 5.6 % 1.7-9.3 complet 017 [...] SQUARE METERS Comment: If this patient is -Gibralt[place], then multiply the Comment: result by 1.210. [...] 017 K/mm3 ed monocyt 06:00 e count Swift % = 6.1 % 1.7-9.3 complet 017 [...] 04:30 L Urine culture (03-11-2017 04:30) Urine [id number] complet culture 017 07 ed 04:30 Escheri brxaton coli SCT EC ESCHERI BRAXTON COLI L [...] erythro 04:09 cyte mean corpusc ular h Swift % = 7.8 % 1.7-9.3 complet 017 [...] SQUARE METERS Comment: If this patient is -Gibralt[place], then multiply the Comment: result by 1.210. [...] 017 K/mm3 ed monocyt 12:40 e count Swift % = 7.3 % 1.7-9.3 complet 017 [...] 017 K/mm3 ed monocyt 04:50 e count Swift % = 6.2 % 1.7-9.3 complet 017 [...] SerPl-mCnc (01-11-2017 10:51) NT-proB 2724 0-899 complet FLATCAR WHACKER 017 pg/mL ed SerPl-m 10:51 Cnc Differential [...] SerPl-mCnc (12-13-2016 13:36) NT-proB 3518 0-899 complet FLATCAR WHACKER 017 pg/mL ed SerPl-m 13:36 Cnc Magnesium SerPl-mCnc (09-08-2016 04:24) Magnesi 2.0 1.9-2.4 complet um 017 mg/dL ed SerPl-m 04:24 Cnc Procedures Procedure DOS Code Location Performer Comment MEASUREME [id number] RADHA GARCIA NT 5 W W CARDIAC [facility] PRESS RT HEART PERQ TRANSFUSI [id number] RADHA GARCIA ON 5 W W NONAUTO [facility] RED BLD MEDICAL MEDICAL CELLS PERIPH VN PERQ CORONARY 8856 [facility] [address] [facility] USING TWO CAT[facility]TERS LEFT 3722 [facility] 5 Y Y CARDIAC [facility] CATHETERI ZATION INSERTION 3607 [facility] 5 Y Y [facility] ING CORONARY ARTERY STENT INSERTION 0046 [facility] 5 Y Y VASCULAR [facility] STENTS PERQ 0066 [facility] 5 Y Y [facility] CORONARY ANGIOPLAS TY PTCA INSERTION 8607 [facility] 1 [facility]AL [facility]AL IMPL MEDICAL MEDICAL VASCULAR CE CE ACCESS DEVICE Encounters Encounter Start End Date Code Location Performer Type Date [facility] - 7 7 [facility] 7 7 [facility] - 7 7 [facility] - 7 7 [facility] - 7 7 [facility] - 7 7 [facility] 7 7 [facility] 7 7 [facility] - 7 7 [facility]PATIENT [facility] - 7 7 [facility] OUTPATI[facility] 7 7 [facility] - 7 7 [facility]PATIENT [facility] - 7 7 [facility] OUTPATIEN [facility] - 7 7 [facility] OUTPATIEN [facility] - 7 7 [facility] - 6 6 [facility] OUTPATIEN [facility] - 6 6 [facility] OUTPATIEN [facility] - 6 6 [facility] OUTPATIEN [facility] - 6 6 [facility] OUTPATIEN [facility] - 6 6 [facility]PATIEN [facility] - 6 6 [facility]PATI[facility] - 6 6 [facility] OUTPATIEN [facility] - 6 6 [facility] OUTPATIEN [facility] - 6 6 [facility] OUTPATIEN [facility] - 6 6 [facility] OUTPATIEN [facility] - 6 6 [facility] OUTPATIEN [facility] - 6 6 [facility]PAT[facility] HOSPICE 6 6 [facility] 6 6 [facility] 5 5 [facility] 5 5 [facility] 5 5 [facility] [place] - 5 5 [facility] 5 5 [facility] 5 5 [facility] SO[facility]ATES - 5 5 [facility] SOCRATES [facility] 5 5 [facility] INPATIENT [facility] 5 5 [facility] [place] - 5 5 [facility] - 5 5 [facility] - 5 5 [facility] - OTHER 5 5 [facility] - 5 5 [facility] 5 5 [facility] - 5 5 [facility]PATI[facility] 5 5 [facility] - 5 5 [facility] OUTPATIEN [facility] 5 5 [facility] - 5 5 [facility] SOCRATES - 5 5 [facility] OUTPATIEN INC [facility], 5 5 HOME OUTPATIEN [facility]ALTH T [facility], 5 5 HOME OUTPATIEN HEALTH T [facility], 5 5 HOME OUTPATIEN HEALTH T [facility]ENCY [facility], 4 4 HOME OUTPATIEN HEALTH [facility] - 4 4 [facility] - 4 4 [facility] [place] - 4 4 REGIONAL OUTPATIEN MEDICAL [facility] - 4 4 [facility]PATIEN [facility] - 4 4 [facility] [place] - 4 4 REGIONAL OUTPATIEN MEDICAL [facility] - 4 4 [facility] - 4 4 [facility] [place] - 4 4 [facility] [place] - 4 4 [facility] [place] - 4 4 [facility] - 3 3 [facility]PATIEN [facility] [place] - 3 3 REGIONAL OUTPATIEN MEDICAL [facility] [place] - 3 3 REGIONAL OUTPATIEN MEDICAL [facility] - 3 3 [facility] [place] - 2 2 REGIONAL OUTPATIEN [facility]AL OUTPATIEN [facility] [place] - 1 1 REGIONAL OUTPATIEN MEDICAL T [facility], 1 1 HOME OUTPATIEN HEALTH [facility] [place] - 1 1 [facility] 0 MED[facility] OUTPATIEN [facility] [place] - 0 0 REG[facility]AL OUTPATIEN [facility] [place] - 0 0 [facility] OUTPATIEN [facility] 0 0 [facility] - 9 9 MEDICAL OUTPATIEN [facility] [place] - 9 9 REGIONAL OUTPATIEN [facility] [place] - 9 9 REG[facility]AL OUTPATIEN [facility] [place] - 8 8 REGIONAL OUTPATIEN [facility] [place] - 8 8 REG[facility]AL OUTPATIEN [facility] [place] - 8 8 REG[facility]AL OUTPATIEN [facility] [place] - 8 8 REG[facility] OUTPATIEN [facility] [place] - 8 8 REG[facility]AL OUTPATIEN [facility] [place] - 8 8 REG[facility] OUTPATIEN [facility] [place] - 8 8 REG[facility] OUTPATIEN [facility] [place] - 8 8 [facility] OUTPATIEN [facility] [place] - 8 8 [facility] OUTPATIEN [facility] [place] - 8 8 [facility] OUTPATIEN [facility] [place] - 8 8 [facility]AL OUTPATIEN [facility] [place] - 8 8 [facility] [place] [id number] [facility] [place] [facility] [place] [facility]
--- OUTSIDE RECORDS SUMMARY | 2017-03-14 17:52 | External Medical Summary Rpt | CCD ---
Author Author , NOREEN Thomas NOREEN Address Unknown Phone .StyleChat by ProSent Mobile Care Team Providers Care Knot Borer Name Role Phone [facility], [facility] Unavailable Unavailable [facility] Unavailable Unavailable ASSOCIATES, [facility] Unavailable Unavailable RESPONSE, [facility] RHODA BACA MD, PSC, Unavailable Unavailable RHODA BACA MD, PSC [facility] Unavailable [place], [facility] [place] KENTON ARMIJO, Unavailable Unavailable [facility] MD, Unavailable Unavailable [facility], ROSY POWELL MD, [facility] MASSIMO MARISCAL Unavailable Unavailable M, MASSIMO MARISCAL, Unavailable Unavailable M.Marko.P.S.CIrena, LES MARCH M.D.P.S.CIrena [facility], Unavailable Unavailable [facility] BHAGRATH, KSENIA S, Unavailable Unavailable BHAGRATH, KSENIA S [facility] Unavailable Unavailable ON RED, [facility] Un[facility] Un[facility], [facility] Unavailable Unavailable SERVICE, [facility] Unavailable Unavailable SERVICE, [facility] Unavailable Unavailable CONSULTANTS O, [facility], Unavailable Unavailable [facility], Unavailable Unavailable [facility] Unavailable Unavailable [facility] ALESSANDRA-ERIC, Unavailable Unavailable JERMAINEYANG ARMENDARIZ, JERMAINE INDY KOKO, Unavailable Unavailable INDY KOK[facility] Unavailable [facility], [facility] KEY, MALES[place]A, Unavailable Unavailable KEY, [place]A [facility] Unavailable Unavailable KIDNEY CARE, [facility] Unavailable [facility], [facility], Unavailable Unavailable [facility] Unavailable Unavailable INC, [facility] FALLIS DIANA, FALLIS Unavailable Unavailable DIANA [facility] Unavailable Unavailable #471, [id number] MORRO ZHENG, Unavailable Unavailable MORRO ZHENG GUNDUMALLA, ISABEL K, Unavailable Unavailable GUNDUMALLA, ISABEL K [facility] Unavailable Unavailable PHARMACY, [facility], Unavailable Unavailable [facility] Un[facility] Un[facility] INC, [facility] Unavailable Unavailable HOSPITAL, [facility] Unavailable Unavailable HOSPITAL P, [facility] HOSPITAL P [facility] Unavailable Unavailable MEDICAL CE, [facility] Unavailable Unavailable MEDICAL CENT, [facility] Unavailable Unavailable INC, [facility], Unavailable Unavailable [facility] Unavailable Unavailable PLL[facility], [facility] HOSPICE [facility], Unavailable Unavailable HOSPICE [facility] Unavailable Unavailable PHYSICIANS, [facility] RIAN, VANDANA Cox, RIAN, Unavailable Unavailable VANDANA [facility] Unavailable Unavailable [place], [facility] [place] [facility] Unavailable Unavailable [id number], Unavailable Unavailable [id number] Unavailable Unavailable PHARMACY, [facility] Un[facility] Unavailable [facility], [facility] & Unavailable Unavailable VASCULAR PH, [facility] Unavailable Unavailable IMAGING ASS, [facility] # Unavailable Unavailable [id number], [facility] # [id number] [facility] [id number] # Unavailable Unavailable 7174, [facility] [id number] # [id number] [facility] Unavailable Unavailable [facility], [facility], [facility] Unavailable Unavailable COMM[facility]ITY ACT, [facility] LUIS E HAM, LUIS E HAM Unavailable Unavailable [facility] Unavailable Unavailable ASSOCIAT, [facility] Un[facility] SUR[facility], [facility] Unavailable Unavailable MEDICAL, [facility] Un[facility] Unavailable LLC, [facility] Unavailable Unavailable PHARMACY, [facility], Unavailable Unavailable [facility] Un[facility], [facility] Unavailable Unavailable AMBULANCE SE, [facility], Unavailable Unavailable PLLC, [facility] KRAFT ANTONINA, KRAFT Unavailable Unavailable ANTONINA [facility], Unavailable Unavailable [facility] PAWSAT, PAWSAT Unavailable Unavailable PAWSAT MAR, PAWSAT Unavailable Unavailable MAR HURLEYRICHARD FERRERA W, Unavailable Unavailable HURLEYRICHARD FERRERA W PEASI, PEASI Unavailable Unavailable [facility] Unavailable Unavailable PRACTICE CL, [facility] Unavailable Unavailable [facility], [facility] Unavailable Unavailable [facility], [facility], Unavailable Unavailable [facility] Unavailable Unavailable SERVICE, [facility] QUAL[facility] PROVIDER Unavailable Unavailable SERVICES IN, [facility] Unavailable Unavailable [facility]ALTH[facility], [facility] Unavailable Unavailable [id number] # [id number], [facility] [id number] # [id number] [facility] Unavailable Unavailable HEALTH CARE, [facility], Unavailable Unavailable [facility] KETTY BROTHERS, ZEV, Unavailable Unavailable KETTY C [facility] Unavailable Unavailable EQUIPME, [facility], Unavailable Unavailable [facility], Unavailable Unavailable [facility] Unavailable Unavailable HOSPITALS, [facility], Unavailable [facility]available [facility], Unavailable Unavailable [facility] # Unavailable Unavailable [id number], [facility] # [id number] [facility] Unavailable Unavailable AGENCY, [facility] ZE MAN, Unavailable Unavailable ZE MAN WILLIAM Unavailable Unavailable ALEXANDREA Clemente WILLIAM H ZAMBOS, PHILIP N, Unavailable Unavailable MICHAEL DE LA ROSA Purpose Continuity of Care Document - 10-31-2006 through 2016 Problems Code Diagnosis DOS Provider Status I129 HYPERTENSIV 02-19-2017 COR[facility] CKD PHYSICIANS, W/STAGE 1-4 [facility] CKD OR UNS CKD M069 RHEUMATOID 02-19-2017 [facility] UNSPECIFIED SERVICE N189 CHRONIC 02-19-2017 [facility] KIDNEY PHYSICIANS, DISEASE [facility] UNSPECIFIED R0602 SHORTNESS 02-19-2017 [facility] OF BREATH PHYSICIANS, [facility] R0689 OTHER 02-19-2017 [facility] ABNORMALITI [facility] ES OF AMBULANCE BREATHING SE R600 LOCALIZED 02-19-2017 [facility] EDEMA [facility] SE Z7409 OTHER 02-19-2017 [facility] MOBILITY SERVICE I10 ESSENTIAL 02-15-2017 [facility] HYPERTENSIO ASSOCIATES N N183 CHRONIC 02-15-2017 [facility] DISEASE ASSOCIATES STAGE 3 MODERATE N179 ACUTE 02-12-2017 [facility] FAILURE ASSOCIATES UNSPECIFIED [id number] ULCERATIVE 01-29-2017 [place] [facility] LEFT LOWER [...] INC WITHOUT ESOPHAGITIS R079 CHEST PAIN 01-27-2017 [facility] UNSPECIFIED [facility] IMAGING ASS 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 [facility] CURRENT USE [facility] OF INSULIN INC Z7982 SENIOR CARE 01-27-2017 [facility] CURRENT USE [facility] OF ASPIRIN INC 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 01-22-2017 CORONARY [facility] ARTERY W/O HOSPITALS ANGINA PECTORIS I252 OLD 01-22-2017 MYOCARDIAL [facility] INFARCTION HOSPITALS I255 ISCHEMIC 01-22-2017 CARDIOMYOPA [facility] THY HOSPITALS I472 VENTRICULAR 01-22-2017 [facility] TACHYCARDIA HOSPITALS I5022 CHRONIC 01-22-2017 SYSTOLIC [facility] CONGESTIVE HOSPITALS HEART FAILURE I509 HEART 01-22-2017 [facility] FAILURE HEALTH UNSPECIFIED ASSOCIATES R0609 OTHER FORMS 01-22-2017 [facility] DYSPNE[facility]ALTHCARE HOSPITALS Q87706 PRESENCE 01-22-2017 AUTO [facility] IMPLANTABLE HOSPITALS CARDIAC DEFIBRILLAT [place] R918 OTHER 01-19-2017 [facility] NONSPECIFIC [facility] ABNORMAL FINDING OF LUNG FIELD E785 HYPERLIPIDE 01-18-2017 [place] HEALTH UNSPECIFIED ASSOCIATES G894 CHRONIC 01-14-2017 [place] PA[facility] SYNDROME [facility] CARE N19 UNSPECIFIED 01-14-2017 [place] KIDNEY [facility] FAILURE [facility]ALTH CARE Z950 PRESENCE OF 01-14-2017 [place] CARDIAC [facility] C[facility] Z955 PRESENCE OF 01-11-2017 CORONARY [facility] ANGIOPLASTY HOSPITALS IMPLANT & GRAFT M6281 MUSCLE 01-05-2017 [facility] WEAKNESS [facility]ANCE GENERALIZED SERVICE K13673 OTHER LONG 01-05-2017 [facility] P DRUG THERAPY Z882 ALLERGY 01-05-2017 [facility] STATUS TO MEM [facility]OS[facility] SULFONAMIDE INC S STATUS R609 EDEMA 01-04-2017 [facility] UNSPECIFIED [facility]CARE HOSPITALS E139 OTH SPEC 01-01-2017 [facility] DIABETES PHYSICIANS MELLITUS GROUP W/O COMPLICATIO NS E875 HYPERKALEMI 01-01-2017 [facility] A PHYSICIANS GROUP I5020 UNSPECIFIED 01-01-2017 [facility] SYSTOLIC PHYSICIANS CONGESTIVE GROUP HEART FAILURE Z4502 ENCOUNTER 12-21-2016 [facility] AUTO HOSPITALS IMPLANTABL CARD DEFIB N390 URINARY 12-16-2016 [facility] INFECTION ASSOCIATES SITE NOT SPECIFIED R001 BRADYCARDIA 12-14-2016 [facility] UNSPECIFIED FOUNDATION R69 ILLNESS 12-14-2016 [...] FAILURE HOSPITALS WITH HYPERCAPNIA R0600 DYSPNEA 12-13-2016 [facility] UNSPECIFIED SERV FOUNDATION D631 ANEMIA IN 12-04-2016 [facility] CHRONIC SERV KIDNEY FOUNDATION DISEASE N250 RENAL 12-04-2016 [facility] OSTEODYSTRO SERV PHY FOUNDATION J129 VIRAL 11-28-2016 [facility] PNEUMONIA [facility] UNSPECIFIED R339 RETENTION 11-21-2016 [facility] OF URINE [facility] P R338 OTHER 11-14-2016 [facility]AL[facility] RETENTION PROVIDER OF URINE SERVICES IN T07116 PRESSURE 10-14-2016 [facility] ULCER OF PROVIDER RIGHT HEEL SERVICES IN UNSTAGEABLE U40020 NON-PRSS 10-14-2016 [facility] CHR ULCR PROVIDER UNS PART SERVICES IN UNS LOW LEG UNS SEV J189 PNEUMONIA 09-29-2016 [facility] UNSPECIFIED PHYSICIANS ORGANISM GROUP N289 DISORDER OF 09-29-2016 [facility] KIDNEY AND PHYSICIANS URETER GROUP UNSPECIFIED R05 COUGH 09-28-2016 [facility] SE I5021 ACUTE 09-08-2016 [facility] SYSTOLIC SERV CONGESTIVE FOUNDATION HEART FAILURE R279 UNSPECIFIED 09-08-2016 [facility] [facility] LACK OF MEDICAL COORDINATIO RESPONSE N I130 HTN HEART & 09-07-2016 [place] [facility] CKD W/HF & SERV CKD STAGE FOUNDATION 1-4 OR UNS CKD I5023 ACUTE CHRON 09-07-2016 [place] [facility] SYSTOLIC SERV HEART FOUNDATION FAILURE I517 CARDIOMEGAL 09-07-2016 [facility] Y SERV [facility] J9601 ACUTE 09-07-2016 [place] [facility] RESPIRAT[place] SERV FAILURE FOUNDATION WITH HYPOXIA R778 OTHER 09-07-2016 [facility] SPECIFIED SERV ABNORMALITI FOUNDATION ES OF PLASMA PROTEINS I214 NON-ST 09-06-2016 [facility] HOSPITALS INFARCTION I4581 LONG QT 09-06-2016 [place] [facility] SYNDROME SERV FOUNDATION J9691 RESPIRATORY 09-06-2016 [place] [facility] FAILURE SERV UNSPECIFIED FOUNDATION WITH HYPOXIA R9431 ABNORMAL 09-06-2016 [facility] ELECTROCARD SERV IOGRAM FOUNDATION E1165 TYPE 2 09-05-2016 [facility] P WITH HYPERGLYCEM [place] S86071 PAIN IN 09-05-2016 [facility] RIGHT LEG MEDICAL IMAGING ASS O85089 PAIN IN 09-05-2016 [facility] LEFT LEG MEDICAL IMAGING ASS M7989 OTHER 09-05-2016 [facility] SPECIFIED MEDICAL SOFT TISSUE IMAGING ASS DISORDERS R269 UNSPECIFIED 09-05-2016 [facility] ABNORMALITI AMBULANCE ES OF GAIT SE AND MOBILITY R531 WEAKNESS 09-05-2016 [facility] SE Z8679 PERSONAL 09-05-2016 [facility] HISTORY OTH PHYSICIANS, DISEASES [facility] CIRCULATORY SYSTEM Z7401 BED 08-30-2016 [facility] AMBULANCE STATUS SERVICE E109 TYPE 1 08-14-2016 [place] DIABETES HEALTH MELLITUS ASSOCIATES WITHOUT COMPLICATIO NS L0390 CELLULITIS 08-14-2016 [place] UNSPECIFIED HEALTH ASSOCIATES M869 OSTEOMYELIT 08-11-2016 [facility] IS MOBILE XRAY UNSPECIFIED SERVICE R0989 OTH SPEC SX 07-20-2016 [facility]AL[facility] & SIGNS MOBILE XRAY INVLV THE SERVICE CIRC & RESP SYS E1151 TYPE 2 DM 05-11-2016 [facility] W/DIAB PERIPH 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 E06465 PRESSURE 05-11-2016 [facility] ULCER OF RIGHT ANKLE STAGE 2 D99385 PRESSURE 05-11-2016 [facility] ULCER OF LEFT ANKLE UNSTAGEABLE M1990 UNSPECIFIED 05-06-2016 [facility] OSTEOARTHRI SERVICE TIS UNSPECIFIED SITE R0789 OTHER CHEST 05-06-2016 [facility] PAIN PHYSICIANS, [facility] B24861 CELLULITIS 04-25-2016 [facility] OF RIGHT LOWER LIMB L63813 PRESSURE 04-25-2016 [facility] ULCER OF RIGHT HEEL STAGE 2 E559 VITAMIN D 04-24-2016 [place] DEFICIENCY HEALTH UNSPECIFIED ASSOCIATES L089 LOCAL INF 04-18-2016 [place] THE SKIN & HEALTH SUBCUTANEOU ASSOCIATES S TISSUE UNS R319 HEMATURIA 04-18-2016 [facility] M36753 UNSPEC[facility]IED 04-17-2016 [facility] BLEPH[facility]IS [place] RIGHT LOWER EYELID J83793H UNSPECIFIED 03-29-2016 [place] OPEN WOUND HEALTH LOWER ASSOCIATES LEG INITIAL ENC S85852 PAIN IN 03-20-2016 [facility] LEFT KNEE [facility] INC M179 OSTEOARTHRI 02-22-2016 [facility] TIS OF KNEE MEM HOSP INC UNSPECIFIED N4889 OTHER 02-18-2016 [facility] SPECIFIED [facility] P OF PENIS N489 DISORDER OF 02-18-2016 [facility] UNSPECIFIED AMBULANCE SE R3989 OTH 02-18-2016 [facility] SYMPTOMS & [facility] SIGNS AMBULANCE INVOLVING SE THE SYSTEM R52 PAIN 02-18-2016 [facility] UNSPECIFIED [facility] AMBULANCE SE T617OUR UNS COMP 02-18-2016 [facility] PROSTH [facility] DEVICE IMPL AMBULANCE & GRAFT SE INIT ENC R1084 GENERALIZED 02-13-2016 [facility] ABDOMINAL EMERGENCY PAIN AMBULAN R1930 ABDOMINAL 02-13-2016 [facility] UNSPECIFIED AMBULAN SITE R5381 OTHER 02-13-2016 [facility] AMBULANCE SERVICE Z466 ENCOUNTER 02-13-2016 [facility] FITTING AND PHYSICIANS, ADJUSTMENT [facility] URINARY DEVICE E118 TYPE 2 02-04-2016 [facility] DIABETES [facility] MELLITUS INC W/UNS COMPLICATIO NS Z539 PROCEDURE & 02-04-2016 [facility] TREATMENT [facility] NOT CARRIED INC OUT UNS REASON M169 OSTEOARTHRI 01-10-2016 RHODA BACA TIS OF HIP , PSC UNSPECIFIED F54724 PAIN IN 01-10-2016 [facility] UNSPECIFIED [facility]OS[facility] HIP INC P22982 PAIN IN 01-10-2016 [facility] UNSPECIFIED [facility]OS[facility] KNEE INC E878 OTHER D/O 12-27-2015 [place] OF HEALTH ELECTROLYTE ASSOCIATES AND FLUID BALANCE NEC Z29173 OTHER 12-17-2015 [facility] SPECIFIED [facility]OS[facility] RHEUMATOID INC ARTHRITIS LEFT HIP M1612 UNILATERAL 12-17-2015 [facility] PRIMARY [facility] OSTEOARTHRI INC TIS LEFT HIP G18145 PAIN IN 12-07-2015 [facility] LEFT THIGH [facility] INC U52923 PAIN IN 12-07-2015 [facility] LEFT LOWER [facility] LEG INC C54223 PAIN IN 12-06-2015 [facility] LEFT HIP [facility] INC P96885 NON-PRSS 11-24-2015 [facility] CHRN ULCER PHYSICIANS SKIN OTH GROUP SITES UNS SEVERITY X23556 TYPE 2 11-16-2015 [facility] D[facility]NA DIABETES MELLITUS WITH FOOT ULCER M2570 OSTEOPHYTE 11-16-2015 [place] D[place]NA UNSPECIFIED JOINT G96142 PAIN IN 10-19-2015 [place] [facility] RIGHT FOOT D509 IRON 09-29-2015 [place] DEFICIENCY HEALTH ANEMIA ASSOCIATES UNSPECIFIED C10159 COMBINED 08-24-2015 [facility] A[facility]-RELATED INSTITUTE CATARACT LEFT EYE H269 UNSPECIFIED 08-24-2015 [facility] CATARACT [facility] INC V62073 COMBINED 07-27-2015 [facility] OF EYE AGE-RELATED INSTITUTE CATARACT RIGHT EYE E46 UNSPECIFIED 2015 [facility] HEALTH PROTEIN-EVGENY ASSOCIATES ORIE MALNUTRITIO N C15582 COMBINED 06-22-2015 [facility] FOR[facility] OF EYE AGE-RELATED INSTITUTE CATARACT BILATERAL H538 OTHER 06-22-2015 [facility] DISTURBANCE INSTITUTE S N186 END STAGE 05-24-2015 [place] RENAL HEALTH DISEASE ASSOCIATES 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 [facility] CY CHRONIC PERIPHERAL I071 RHEUMATIC 05-11-2015 [facility] TRICUSPID SERV INSUFFICIEN FOUNDATION CY 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 05-11-2015 [facility] C MITRAL SERV VALVE FOUNDATION INSUFFICIEN CY Z0189 ENCOUNTER 05-06-2015 NATACHA CLEARY OTHER AMB SERVICE SPECIFIED SPECIAL EXAMINATION S E1136 TYPE 2 04-29-2015 [facility] MELL[facility]US C[facility] WITH DIABETIC CATARACT H2513 AGE-RELATED 04-29-2015 [facility] CATARACT CENTER BILATERAL O69739 CATARACT 04-29-2015 [facility] SECONDARY TO OCULAR DISORDERS UNS EYE I5032 CHRONIC 04-29-2015 [facility] DIASTOLIC CONGESTIVE HEART FAILURE R5382 CHRONIC 04-29-2015 [facility] FATIGUE UNSPECIFIED 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 M7731 CALCANEAL 03-30-2015 [place] SPUR RIGHT MEDICAL FOOT IMAGING ASS M059 RA WITH 03-23-2015 [facility] RHEUMATOID EMERGENCY FACTOR AMBULAN UNSPECIFIED A09262 PAIN IN 03-23-2015 [facility] UNSPECIFIED EMERGENCY LIMB AMBULAN L08717D LACERATION 03-23-2015 [facility] W/FOREIGN EMERGENCY BODY UNS AMBULAN FOOT INITIAL ENC 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 [place] [facility] CURRENT USE HEALTH OF ASSOCIATES ANTICOAGULA NTS G8929 OTHER 02-25-2015 [facility] CHRONIC EMERGENCY PAIN AMBULAN J9690 RESP FAIL 02-25-2015 [facility] UNS UNS EMERGENCY WHETHER AMBULAN W/HYPOXIA/H YPERCAPNIA E975 02-24-2015 [facility] A419 SEPSIS 02-18-2015 [place] UNSPECIFIED HEALTH ORGANISM ASSOCIATES E0590 THYROTOXICO 02-18-2015 [place] SIS UNS W/O HEALTH THYROTOXIC ASSOCIATES CRISIS/STOR M R350 FREQUENCY 02-18-2015 [place] MICT[facility]OCIATES R7989 OTHER SPEC 02-18-2015 [place] ABNORMAL HEALTH FINDINGS ASSOCIATES BLOOD CHEMISTRY R4182 ALTERED 01-22-2015 [facility] MENTAL EMERGENCY STATUS AMBULAN UNSPECIFIED I270 PRIMARY 01-21-2015 [facility] PULMONARY LAR HYPERTENSIO CONSULTANTS N O I04317 ASHD HUALAPAI 01-19-2015 [facility] COR ARTREY LAR W/UNS CONSULTANTS ANGINA O PECTORIS Z53305Y NONDSPL FX 01-19-2015 [facility] 2ND GENERAL METATARSAL SURGERY RT FT INIT ENC CLOS FX E1365 OTH SPEC 01-16-2015 [facility] DIABETES LAR MELLITUS CONSULTANTS WITH O HYPERGLYCEM IA I272 OTHER 01-15-2015 [facility] PULMONARY MEDICAL HYPERTENSIO N J811 CHRONIC 01-15-[facility] PULMON[facility]Y EDEMA ASSOCIAT J9610 CHRONIC 01-15-2015 [facility] RESPIRATORY REGIONAL FAIL UNS MEDICAL HYPOXIA/HYP ERCAPNIA B30058 NON-PRSS 01-15-[facility] CHRN ULCR RADIOLOGY OTH PART LT ASSOCIAT FOOT UNS SEVERITY O42008 NON-PRSS 01-15-2015 [facility] CHR ULCR REGIONAL UNS PART LT MEDICAL LOW LEG UNS SEV H15095O DISPLACED 01-15-2015 [facility] 2ND RADIOLOGY METATARSAL ASSOCIAT RT FT INIT CLOS FX I5040 UNSPECIFIED 01-14-2015 [facility]OS[facility]ITAL DIASTOLIC CHF J90 PLEURAL 01-14-2015 [place] EFF[facility]ION MEDICAL NOT IMAGING ASS ELSEWHERE CLASSIFIED M0540 RHEUMATOID 01-14-2015 [facility] MYOPATHY [facility] WITH RA HOSPITAL UNSPECIFIED SITE R590 LOCALIZED 01-14-2015 [facility] ENLARGED MEDICAL LYMPH NODES IMAGING ASS 15643 COR 01-13-2015 [facility] ATHEROSLERO LAR UNSPEC CONSULTANTS TYPE VESSEL O HUALAPAI/YOVANNY T 4258 CARDIOMYOPA 01-13-2015 [facility] THY OTHER LAR DISEASES CONSULTANTS CLASSIFIED O ELSW 4280 CONGESTIVE 01-13-2015 [facility] HEART LAR FAILURE [place] [address]26 SHORTNESS 01-13-2015 [facility] OF BREATH [place]ULT[facility] O 17357 DIAB W/O 01-12-2015 [facility] COMP TYPE [facility] II/UNS NOT HOSPITAL P STATED UNCNTRL 2724 OTHER AND 01-12-2015 [facility] UNSPECIFIED [facility] HYPERLIPIDE NICHOLAS 3384 CHRONIC 01-12-2015 [facility] PAIN [facility] SYNDROME 4019 UNSPECIFIED 01-12-2015 [facility] HYPERT[facility] HOSPITAL P N 4254 OTHER 01-12-2015 [facility] PRIMARY [facility] CARDIOMYOPA HOSPITAL P MARIN 4259 UNSPECIFIED 01-12-2015 [facility] SECONDARY [facility] CARDIOMYOPA THY 31957 UNSPECIFIED 01-12-2015 [facility] SYSTOLIC [facility] HEART FAILURE 496 CHRONIC 01-12-2015 [facility] AIRWAY EMERGENCY OBSTRUCTION AMBULAN NEC 25739 ACUTE 01-12-2015 [facility] RESPIRATORY [facility] FAILURE 5849 ACUTE 01-12-2015 [facility] KIDNEY EMERGENCY FAILURE AMBULAN UNSPECIFIED 5853 CHRONIC 01-12-2015 [facility] KIDNEY [facility] DISEASE STAGE III (MODERATE) 7140 RHEUMATOID 01-12-2015 [facility] 7862 COUGH 01-12-2015 [facility] 04484 SOLITARY 01-12-2015 [facility] V4582 POSTSURG 01-12-2015 [facility] P [facility] COR ANGPLSTY STS V5867 LONG-TERM 01-12-2015 [facility] USE OF [facility] INSULIN [facility]OSP[facility] P V5869 LONG-TERM 01-12-2015 [facility] (CURRENT) [facility] USE OF HOSPITAL P OTHER MEDICATIONS 70904 01-04-2015 [facility] 81060 ATRIAL 12-25-2014 [facility] O 7823 EDEMA 12-25-2014 [facility] 42602 OTHER FLUID 12-24-2014 [facility] OVERLOAD SERV [facility] 19617 ANEMIA IN 12-24-2014 [facility] DISEASE 29994 HTN CKD UNS 12-24-2014 [facility] W/CKD SERV STAGE I [facility] THRU STAGE IV/UNS 5880 RENAL 12-24-2014 [facility] OSTEODYSTRO [facility] PHY [facility] 4240 MITRAL 12-22-2014 [facility] DISORDERS [facility] 4242 TRICUSPID 12-22-2014 [facility] SPEC NONRHEUMATI C 82966 OCCL&STENOS 12-22-2014 [facility] PRECERBRL IMAGING ASS ART W/O INFARCT 13844 OTHER 12-19-2014 [facility] CHRONIC PHYSICIANS PAIN GROUP 4011 ESSENTIAL 12-19-2014 [facility] HYPERTENSIO PHYSICIANS N, BENIGN GROUP 4439 UNSPECIFIED 12-18-2014 [facility] DISEASE O V4509 OTHER 12-18-2014 [facility]CIF[facility] CARDIAC INC DEVICE IN SITU 5601 PARALYTIC 12-09-2014 [facility] ILEUS PHYSICIANS GROUP 7873 FLATULENCE 12-02-2014 [facility] ERUCTATION PHYSICIANS AND GAS GROUP PAIN 83884 ABDOMINAL 12-02-2014 [facility] PAIN, PHYSICIANS UNSPECIFIED GROUP SITE 03339 UNS 12-01-2014 [facility] ASTRODUODIT SERVICE IS W/O MENTION HEMORR 5609 UNSPECIFIED 12-01-2014 [facility] OBSTRUCTION 81233 CALCU 12-01-2014 [facility] W/O MENTION IMAGING ASS CHOLECYST/O BST V4502 AUTOMATIC 12-01-2014 [facility] DEFIBRILLAT OR SITU 250 DIABETES 11-26-2014 [facility] [place] [address] OTHER 11-23-2014 [facility] SPECIFIED CARDIAC DYSRHYTHMIA S 5851 CHRONIC 11-23-2014 [facility] [place] [address] RESTLESS 11-06-2014 [facility] LEGS PRIMARY SYNDROME CARE 49826 ESOPHAGEAL 11-06-2014 [facility] REFLUX PRIMARY CARE 4293 CARDIOMEGAL 10-13-2014 [place] [address] OTHER 10-13-2014 [facility] DYSPNEA AND REGIONAL MEDICAL CE RESPIRATORY ABNORMALITI ES 5932 ACQUIRED 10-07-2014 [facility] CYST OF MEDICAL KIDNEY IMAGING ASS 00605 UNSPECIFIED 09-11-2014 [facility] INFECTION PARTNERS OF OF BONE LEXINGT ANKLE AND FOOT 9597 INJURY 09-11-2014 [facility] CIFIED KNEE INC LEG ANKLE&FOOT V5881 FITTING AND 09-11-2014 [facility] ADJUSTMENT MEDICAL OF IMAGING ASS VASCULAR CATHETER 29357 DIAB W/O 09-08-2014 [place] [facility] MENTION SERV COMP TYPE FOUNDATION II/UNS TYPE UNCNTRL 2767 HYPERPOTASS 08-26-2014 [facility] P 412 OLD 08-26-2014 [facility] INFAR[facility] 02932 CORONARY 08-26-2014 [facility] CORONARY ARTERY 5859 CHRONIC 08-26-2014 [facility] DISEASE INC UNSPECIFIED 11625 WHEEZING 08-26-2014 [facility] 1101 DERMATOPHYT 08-14-2014 [facility] OF NAIL 24617 DIAB 08-14-2014 [facility] W/PERIPH CIRC D/O TYPE II/UNS TYPE UNCNTRL 7295 PAIN IN 08-14-2014 [facility] SOFT TISSUES OF LIMB 462 ACUTE 08-08-2014 [facility] 27731 OTH NONSPC 08-08-2014 [facility] ABN FINDNG MEDICAL RAD&OTH EXM IMAGING ASS BODY STRUCTURE 714 RA AND 07-23-2014 [employer] OTHER AREA AGENCY INFLAMMATOR ON RED Y POLYARTHROP ATHIES 43216 URINARY 07-09-2014 [facility] HESITANCY PRIMARY CARE 4271 PAROXYSMAL 06-22-2014 [facility] VENTRICULAR SERV F[facility]ATION TACHYCARDIA V5331 FITTING AND 06-22-2014 [facility] ADJUST[facility] SERV OF CARDIAC FOUNDATION PACEMAKER V707 EXAMINATION 06-22-2014 [facility] OF SERV PARTICIPANT FOUNDATION IN CLINICAL TRIAL 45224 OTHER 06-21-2014 [facility] PREMATURE SERV BEATS FOUNDATION 71892 NONSPECIFIC 06-21-2014 [facility] ABNORMAL SERV ELECTROCARD FOUNDATION IOGRAM 29565 DIAB 06-18-2014 [facility] TYPE II/UNS TYPE UNCNTRL 67850 ACUT [place] 06-18-2014 [facility] IAL INFARCT INIT EPIS CARE 15985 ULCER OF 06-18-2014 [facility] V4589 OTHER 06-18-2014 [facility] POSTSURGICA SERV L STATUS FOUNDATION OTHER 43847 DIAB W/O 06-17-2014 [place] [facility] MENTION SERV COMP TYPE I FOUNDATION [JUV TYPE] UNCNTRL 42738 ACUT 06-17-2014 [facility] UNS SERVICE SITE EPIS CARE UNS 75894 ACUTE 06-17-2014 [facility] P UNSPEC SITE INIT EPIS CARE 5180 PULMONARY 06-17-2014 [place] [facility] COLLAPSE SERV FOUNDATION 7850 UNSPECIFIED 06-17-2014 [facility] TACHYCARDIA IMAGING ASS 02347 PRECORDIAL 06-17-2014 [facility] PAIN [facility] SERVICE 3572 POLYNEUROPA 06-10-2014 [facility] IN HEALTH DIABETES AGENCY 54853 ULCER OF 06-10-2014 [facility] OTHER PART HEALTH OF FOOT AGENCY 65847 MUSCLE 06-10-2014 [facility] WEAKNESS [facility]ALTH (GENERALIZE AGENCY D) 6864 CELLULITIS 04-14-2014 [facility] AND ABSCESS PRIMARY OF LEG CARE EXCEPT FOOT 67855 INSOMNIA 03-19-2014 [facility] UNSPECIFIED PRIMARY CARE 27940 UNSPECIFIED 01-22-2014 [facility] [place] [address] ULCER OF 01-22-2014 [facility] V571 OTHER 01-22-2014 [facility] THERAPY [facility] 8911 OPEN WOUND 01-19-2014 [facility] OF K[facility] LEG PRIMARY AND ANKLE CARE COMPLICATED 586 UNSPECIFIED 08-27-2013 [facility] RENAL REGIONAL FAILURE MEDICAL CE 7038 OTHER 08-27-2013 [facility] SPECIFIED PRIMARY DISEASE OF CARE NAIL 02281 OLECRANON 08-01-2013 [facility] BURSITIS PRIMARY CARE 47615 GEN 07-22-2013 [facility] HOME SIS MEDICAL INVOLVING EQUIPME MULTIPLE SITES 93819 GENERALIZED 05-22-2013 [facility] OSTEO[facility]RO SIS UNSPECIFIED SITE 95418 ULCER OF 03-17-2013 [facility] HEEL AND PRIMARY MIDFOOT CARE 7812 ABNORMALITY 03-17-2013 [facility] OF GAIT PRIMARY CARE 54176 OSTEOARTHRO 02-20-2013 [facility] [place] SIS UNSPEC ORTHOPAEDIC WHETHER S PLC GEN/LOC LOWER LEG V0481 NEED 02-12-2013 [facility] PROPHYLACTI PRIMARY C CARE VACCINATION &INOCULATIO N FLU 33752 PAIN IN 11-15-2012 [facility] JOINT, PRIMARY SHOULDER CARE REGION 25318 PAIN IN 11-15-2012 [facility] JOINT, PRIMARY UPPER ARM CARE 82335 UNSPEC 10-08-2012 [facility] POLYARTHROP CENTER OF ATHY/POLYAR LEXINGTO THRITIS SITE UNSPEC 79977 DIAB 09-20-2012 [facility] W/NEURO REGIONAL MANIFESTS MEDICAL CE TYPE II/UNS TYPE UNCNTRL 4871 INFLUENZA 05-27-2012 [facility] WITH OTHER RESPIRATORY MANIFESTATI ONS 34969 FEVER 02-02-2013 [facility] UNSPECIFIED KOKO 4660 ACUTE 04-25-2012 [facility] BRONCHITIS 4658 ACUTE URIS 02-28-2012 [facility] [place] OF OTHER MULTIPLE SITES 82242 PRESSURE 02-28-2012 [facility] [place] U[facility]ER HEEL 7993 UNSPECIFIED 01-19-2012 [facility] 62834 OTHER 07-24-2011 [facility] [place] URINARY INCONTINENC E 71351 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 7291 UNSPECIFIED 12-23-2010 [facility] MYALGIA JOSE MARCHPIrenaSKaleigh MYOSITIS 76044 UNSPECIFIED 11-30-2010 [place] LAPAROSCOPI OSTEOMYELIT C & IS ANKLE ADVANCED S AND FOOT 9961 [facility] COMP 11-30-2010 [place] OTH LAPAROSCOPI VASCULAR C & DEVICE ADVANC[place] S IMPLANT&[place] [address] FLUSHING 09-20-2010 [facility] [place] [address] PRESSURE 06-14-2010 ROSY Nelson ULCER ANDRE VALDES, UNSPECIFIED LLC SITE 44277 ACUTE 06-14-2010 ROSY Nelson OSTEOMYELIT ANDRE VALDES, IS SITE LLC UNSPECIFIED 80886 ACUTE 06-02-2010 ROSY Nelson OSTEOMYELIT ANDRE VALDES, IS, ANKLE LLC AND FOOT 2859 UNSPECIFIED 05-19-2010 [facility] 61983 UNSPECIFIED 05-19-2010 [facility] ABSCESS OF TOE 05337 PRESSURE 05-19-2010 [facility] SOLUTIONS BUTTOCK 80256 UNSPECIFIED 05-17-2010 [place] LAPAROSCOPI OSTEOMYELIT C & IS OTHER ADVANCED S SPECIFIED SITES 10817 CHEST PAIN 05-17-2010 [place] UNSPECIFIED HEART & VASCULAR PH 6829 CELLULITIS 05-16-2010 [facility] [place] AND ABSCESS IMAGING PSC OF UNSPECIFIED SITE 53888 UNSPECIFIED 05-16-2010 ROSY POWELL MD, OSTEOMYELIT LLC IS SITE UNSPECIFIED 5939 UNSPECIFIED 05-13-2010 [facility] [place] DISORDER IMAGING PSC OF KIDNEY AND URETER 75523 OTHER CHEST 05-13-2010 [place] PAIN LAPAROSCOPI C & ADVANCED S 81774 OTHER 05-13-2010 [facility]TOMS [place] INVOLVING [facility]IDNEY CARE URINARY SYSTEM 13249 PRESSURE 05-12-[address] [address] [facility] [place] [address] PRESSURE 05-12-2010 [facility] ULCER STAGE REGIONAL II MEDICAL CE 7851 PALPITATION 04-19-2010 [facility] S HEART & VASCULAR PH 3569 UNSPEC 04-14-2010 [facility] HEREDIT&IDI FAMILY OPATHIC PRACTICE CL PERIPHERAL NEUROPATHY 80498 DIAB W/O 01-24-2010 [facility] COMP TYPE I FAMILY [JUV] NOT PRACTICE CL STATED UNCNTRL 7801 HALLUCINATI 12-23-2009 [facility] ONS EMERGENCY PHYSICIANS 6827 CELLULITIS 11-02-2009 [facility] AND ABSCESS EMERGENCY OF FOOT PHYSICIANS EXCEPT TOES 58062 OSTEOARTHRO 11-02-2009 [facility] [place] SIS UNSPEC IMAGING PSC WHETHER GEN/LOC ANK&FOOT 9174 FOOT&TOE 11-02-2009 [facility] INSECT BITE EMERGENCY PHYSICIANS NONVENOMOUS W/O MENTION INF 9175 FOOT AND 11-02-2009 [facility] TOE INSECT REGIONAL BITE MEDICAL NONVENOMOUS CENT INFECTED E0008 OTHER 11-02-2009 [facility] EXTERNAL REGIONAL CAUSE MEDICAL STATUS CENT E8490 PLACE OF 11-02-2009 [facility] OCCURRENCE, EMERGENCY HOME PHYSICIANS E9064 BITE OF 11-02-2009 [facility] NONVENOMOUS EMERGENCY ARTHROPOD PHYSICIANS 3670 HYPERMETROP 10-21-2009 [facility] IA PTON, JERMAINE 31908 OTHER 10-05-2009 [facility] 55602 PAIN IN 09-07-2009 [facility] JOINT PAIN PELVIC PHYSICIANS REGION AND PSC THIGH 93807 PAIN IN 09-07-2009 [facility] JOINT, PAIN LOWER LEG PHYSICIANS PSC 7242 LUMBAGO 09-07-2009 [facility] PAIN PHYSICIANS PSC 7410 SPINA 08-03-2009 BHAGRATH, BIFIDA WITH KSENIA S HYDROCEPHAL US 7804 DIZZINESS 07-30-2009 [facility] AND PAIN GIDDINESS PHYSICIANS PSC 68227 POLYARTICUL 07-08-2009 [facility] AR JUVENILE PAIN RA CHRONIC PHYSICIANS OR PSC UNSPECIFIED 7852 UNDIAGNOSED 07-01-2009 [facility] CARDIAC [facility] VASCULAR PHYSICIANS, INC 41384 PAIN IN 11-09-2008 [facility], L HOME MULTIPLE MEDICAL SITES SUPPLIES INC 2689 UNSPECIFIED 10-02-2008 [facility] VITAMIN D REGIONAL DEFICIENCY MEDICAL CENT 5852 CHRONIC 10-02-2008 [facility] KIDNEY REGIONAL DISEASE MEDICAL STAGE II CENT (MILD) 20191 HYPERTROPHY 10-02-2008 [facility] PROSTATE REGIONAL W/O UR OBST MEDICAL & OTH LUTS CENT 7910 PROTEINURIA 10-02-2008 [facility] 7231 CERVICALGIA 07-08-2008 [facility] PAIN PHYSICIANS PSC 06421 OSTEOARTHRO 2008 [facility] S UNSPEC ORTHOPAEDIC GEN/LOC S PLC PELV REGION&THIG H 3829 UNSPECIFIED 05-28-2008 [facility] 4659 ACUTE URIS 04-28-2008 [place] OF [facility] UNSPECIFIED HOSP SITE 7213 LUMBOSACRAL 04-02-2008 [facility] SERVICES SPONDYLOSIS 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 7244 THORACIC/TY 04-02-2008 [facility] MBOSACRAL SERVICES NEURITIS/RA PSC DICULITIS UNSPEC 8472 LUMBAR 04-02-2008 [facility] SPRAIN AND SERVICES STRAIN PSC 6828 CELLULITIS 03-03-2008 [place] AND ABSCESS [facility] OF OTHER HOSP SPECIFIED SITE 61241 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 22314 SPINAL 02-26-2008 [facility] STENOSIS OF SERVICES THORACIC PSC REGION 7241 PAIN IN 02-26-2008 [facility] THORACIC SERVICES SPINE PSC 49976 CLOS FX 02-26-2008 [facility] T7-T12 SERVICES LEVEL PSC W/UNSPEC SPINAL CORD INJURY 54365 SECONDARY 02-25-2008 [facility] HYPERPARATH NEPHROLOGY YROIDISM CONSULTANTS 9531 INJURY TO 02-11-2008 [facility] DORSAL SERVICES NERVE ROOT PSC 40468 OSTEOARTHRO 01-14-2008 [facility] S UNSPEC SERVICES GEN/LOC OTH PSC SPEC SITES 13406 DISPLCMT 01-14-2008 [facility] LUMBAR SERVICES INTERVERT PSC DISC W/O MYELOPATHY 53892 SPINAL STEN 01-14-2008 [facility] LUMB REG SERVICES W/O PSC NEUROGENIC CLAUDICATIO N 93596 SCOLIOSIS , 01-14-2008 [facility] IDIOPATHIC SERVICES PSC 7246 DISORDERS 12-25-2007 [facility] OF SACRUM SERVICES PSC 7245 UNSPECIFIED 12-21-2007 [facility] BACKACHE IMAGING PSC 57242 ABDOMINAL 12-21-2007 [facility] PAIN OTHER REGIONAL SPECIFIED MEDICAL SITE CENT 3970 DISEASES OF 11-18-2007 [facility], TRICUSPID ZE C VALVE 15195 PRIMARY LOC 11-13-2007 [facility] REGIONAL OSTEOARTHRO MEDICAL SIS PELVIC CENT REGION&THIG H 125[address] PRIMARY 11-13-2007 [facility] LOCALIZED REGIONAL OSTEOARTHRO MEDICAL SIS LOWER CENT LEG 7176 LOOSE BODY 11-13-2007 [facility] 26988 DISORDER OF 11-13-2007 [facility] BONE AND IMAGING PSC CARTILAGE UNSPECIFIED 2818 ANEMIA 09-26-2007 [facility] W/OTHER PLLC SPEC NUTRITIONAL DEFIC 4778 ALLERGIC 09-26-2007 [facility] DUE TO PLLC OTHER ALLERGEN 16666 UNSPECIFIED 09-26-2007 [facility] ABSCESS OF FINGER 10800 NOCTURIA 09-26-2007 [facility] MEDICAL CENT 04580 VOMITING 09-13-2007 [facility] PHYSICIAN INC 43338 OSTEOARTHRO 09-04-2007 [facility] S UNSPEC NEPHROLOGY WHETHER CONSULTANTS GEN/LOC UNSPEC SITE 25862 ELEVATED 09-04-2007 [facility] PROSTATE NEPHROLOGY SPECIFIC CONSULTANTS ANTIGEN 99639 UNSPECIFIED 06-24-2007 [facility] CONSTIPATI MEDICAL N CENT 59036 LOSS OF 06-24-2007 [facility] 43753 URINARY 06-24-2007 [facility]ENT V7644 SPECIAL 06-24-2007 [facility] MALIG[facility] MEDICAL NEOPLASM OF CENT PROSTATE 4709 ALLERGIC 10-31-2006 [facility] CAUSE [...] 0 RE 15 FT 41 17 17 WY EN 0 PH CH ER AR AE MA L 25 CY S 0 MG LL C SO FT GE L 00 08 11 0 30 30 ME 15 GA Ac TA 90 -3 -2 0. D 34 IN ti WY 40 1- 5- 00 CA 30 EY ve N 52 20 20 0 RE 14 C 38 17 17 WY 50 0 PH CH 0 AR AE MG MA L CY S TA BL LL ET C SE 00 08 11 0 12 30 ME 15 GA Ac NN 90 -3 -2 00 D 34 IN ti A- 46 1- 5- .0 CA 30 EY ve LA 52 20 20 00 RE 16 X 26 17 17 WY 8. 1 [...] 0. D 18 IN ti WY 40 1- 7- 00 CA 77 EY [...] 0. D 12 IN ti WY 63 1- 6- 00 CA 12 EY [...] 0. D 12 IN ti A- 40 - 6 CA 12 EY ve 53 20 [...] 87 IN ti L 61 1- 7- CA 57 EY ve SO 06 20 [...] 87 IN ti WY 40 1- 7- CA 57 EY ve N 52 20 [...] 15 15 EU E 5 PH GO MT AR ND OP MA A CY F [...] # MG 48 47 TA BL ET MT 59 04 07 11 85 17 KM [...] C CA PS 48 UL 47 E MT 59 04 04 11 85 17 KM [...] 0- 0- 00 UC 92 H ve MT 75 20 20 0 [place] 71 [place] [...] 11 60 30 KM 68 PA Ac MT 18 -0 -2 0. AR 53 RS [...] 11 60 30 KM 68 PA Ac MT 18 -0 -1 0. AR 53 RS [...] 11 60 30 KM 68 PA Ac MT 18 -0 -1 0. AR 53 RS [...] 44 6- 1- T 23 ON ve WY 29 20 [...] 0. AR 53 RS ti AP 30 5 8 00 T 27 ON ve RI 02 20 20 0 PH 8 S L 80 14 14 AR JE MA 1 MA RE LE CY MY AT # C E 10 48 47 MG TA B TO 00 09 10 11 60 30 KM 68 PA Ac MT 18 -0 -0 0. AR 53 RS [...] 53 RS ti NI 50 5- 8- T 28 ON ve RO 12 20 20 0 PH 0 S LE 60 14 14 AR JE 1 MA RE HC CY MY L # C 4 MG 48 47 TA BL ET PO 00 10 10 11 60 30 KM 68 PA Ac TA 78 -0 -0 0. AR 54 RS ti SS 11 6 6 T 23 ON ve IU 52 20 20 0 PH 8 S M 60 14 14 AR JE CL 1 MA RE CY MY ER # C 10 48 47 ME Q TA BL ET FU 00 10 10 11 60 30 KM 68 PA Ac RO 05 -0 -0 0. AR 54 RS ti SE 44 6- 6- T 23 ON ve WY 29 20 20 0 PH 7 S DE 93 14 14 AR JE 1 MA RE 40 CY MY # C MG 48 TA 47 BL ET MO 42 09 09 0 60 30 KM 22 PA Ac RP 85 -0 -2 0. AR 16 RS ti HI 80 5- 8- T 17 ON ve NE 80 20 20 0 PH 3 S 10 14 14 AR JE CLARK 1 MA RE LF CY MY # C ER 48 15 47 MG TA BL ET AM 00 04 09 5 30 30 KM 68 LE Ac IT 60 -1 -1 0. AR 49 SL ti RI 32 8- 7 T 56 IE ve PT 21 [...] 11 60 30 KM 68 PA Ac MT 18 -0 -0 0. AR 53 RS [...] TE ST [address] RI PS MT 59 06 07 11 85 25 KM [...] -1 -1 0. AR 48 LL ti MT 80 9- 5- 00 T 97 ve [...] L 50 48 47 MG TA B MT 59 06 06 11 85 25 KM [...] -1 -0 0. AR 48 LL ti MT 80 9- 9- 00 T 97 ve [...] -1 -0 0. AR 48 LL ti MT 80 9- 5- 00 T 97 ve [...] -1 -2 0. AR 48 LL ti MT 80 9- 7- 00 T 97 ve [...] 41 RS ti SE 80 5- 9- T 93 ON ve WY 21 20 20 0 PH 2 S DE 61 13 14 AR JE 0 MA RE 40 CY MY # C MG 48 TA 47 BL ET ME 00 09 01 11 60 30 KM 68 PA Ac TO 37 -1 -2 0. AR 43 RS ti MT 80 9 9 T 88 ON ve [...] -1 -1 0. AR 43 RS ti MT 80 9- 9- 00 T 88 ON [...] -1 -2 0. AR 43 RS ti MT 80 9- 0- 00 T 88 ON [...] -1 -2 0. AR 43 RS ti MT 80 9- 3- 00 T 88 ON [...] -1 -1 0. AR 43 RS ti MT 80 9- 9- 00 T 88 ON [...] -0 -2 0. AR 38 RS ti MT 80 6- 8- 00 T 07 ON [...] 69 20 20 0 PH 1 S WY 61 12 13 AR JE X 9 [...] -0 -3 0. AR 38 RS ti MT 80 6- 1- 00 T 07 ON [...] 69 20 20 0 PH 1 S WY 61 12 13 AR JE X 9 [...] 69 20 20 0 PH 1 S WY 61 12 13 AR JE X 9 [...] -0 -0 0. AR 38 RS ti MT 80 6- 2- 00 T 07 ON [...] 7- 5- 00 T 83 ON ve WY 21 20 20 0 [...] 69 20 20 0 PH 1 S WY 61 12 13 AR JE X 9 MA RE 70 CY MY -3 # C 0 FL 48 EX 47 PE N SY RN ME 00 02 04 4 60 30 KM 68 PA Ac TO 37 -0 -0 0. AR 38 RS ti MT 80 6- 5- 00 T 07 ON [...] -0 -0 0. AR 38 RS ti MT 80 6- 8- 00 T 07 ON [...] 7- 8- 00 T 83 ON ve WY 21 20 20 0 [...] 69 20 20 0 PH 1 S WY 61 12 13 AR JE X 9 [...] 4- 7- 00 T 12 ON ve WY 21 20 20 PH 8 S DE [...] -0 -2 .0 AR 11 YN ti MT 40 4- 7- 00 T 00 E ve OL 47 20 20 PH 6 VA OL 75 11 11 AR UG 8 MA HN TA CY W RT 71 RA 74 TE # 50 71 74 MG TA B MT 00 10 10 0 21 6 KM [...] 4- 8- 00 T 12 ON ve WY 21 20 20 PH 8 S DE 61 11 11 AR JE 0 MA RE 40 CY MY 71 C MG 74 # TA BL 71 ET 74 ME 00 01 09 6 60 30 KM 69 PA Ac TO 09 -0 -2 .0 AR 11 YN ti MT 30 4- 8- 00 T 00 E [...] G 69 20 20 PH 3 E WY 61 11 11 AR SA X 9 [...] 4- 1- 00 T 00 E ve WY 21 20 20 PH 9 VA DE [...] -0 -3 .0 AR 11 YN ti MT 30 4- 0- 00 T 00 E [...] G 69 20 20 PH 3 E WY 61 11 11 AR SA X 9 [...] 4- 3- 00 T 00 E ve WY 21 20 20 PH 9 VA DE [...] -0 -2 .0 AR 11 YN ti MT 30 4- 2- 00 T 00 E [...] 11 AR SA E 9 MA RA MT CY H OP 71 M 74 50 # MC 71 G 74 SP RA Y NO 00 06 07 3 15 30 KM 69 JU Ac VO 16 -2 -[address] ti LO 93 1- 2- 00 T 61 IC ve G 69 20 20 PH 3 E WY 61 11 11 AR SA X 9 [...] 4- 0- 00 T 00 E ve WY 21 20 20 PH 9 VA DE [...] 11 AR SA E 9 MA RA MT CY H OP 71 M 74 50 # MC 71 G 74 SP RA Y NO 00 06 06 3 15 30 KM 69 JU Ac VO 16 -2 -[address] ti LO 93 1- 2- 00 T 61 IC ve G 69 20 20 PH 3 E WY 61 11 11 AR SA X 9 [...] -0 -2 .0 AR 11 YN ti MT 30 4- 0- 00 T 00 E [...] 4- 2- 00 T 00 E ve WY 21 20 20 PH 9 VA DE [...] 11 AR SA E 9 MA RA MT CY H OP 71 M 74 50 [...] -0 -2 .0 AR 11 YN ti MT 30 4- 4- 00 T 00 E [...] G 69 20 20 PH 5 Y WY 61 10 11 AR JE X 9 [...] 4- 5- 00 T 00 E ve WY 21 20 20 PH 9 VA DE [...] 11 AR SA E 9 MA RA MT CY H OP 71 M 74 50 [...] -0 -2 .0 AR 07 YN ti MT 30 1- 7- 00 T 00 E [...] G 69 20 20 PH 5 Y WY 61 10 11 AR JE X 9 [...] 4- 8- 00 T 00 E ve WY 21 20 20 PH 9 VA DE [...] G 69 20 20 PH 5 Y WY 61 10 11 AR JE X 9 [...] 11 AR JE E 9 MA NN MT CY IF OP 71 ER 74 B 50 # MC 71 G 74 SP RA Y ME 00 11 03 6 60 30 KM 69 PA Ac TO 09 -0 -3 .0 AR 07 YN ti MT 30 1- 0- 00 T 00 E [...] 4- 4- 00 T 00 E ve WY 21 20 20 PH 9 VA DE [...] -0 -2 .0 AR 07 YN ti MT 30 1- 8- 00 T 00 E [...] G 69 20 20 PH 5 Y WY 61 10 11 AR JE X 9 [...] 11 AR JE E 9 MA NN MT CY IF OP 71 ER 74 B [...] 2- 5- 00 T 18 Y ve WY 21 20 20 PH 5 AZAM DE [...] -0 -2 .0 AR 07 YN ti MT 80 1- 6- 00 T 00 E [...] 11 AR JE E 9 MA NN MT CY IF OP 71 ER 74 B [...] G 69 20 20 PH 5 Y WY 61 10 11 AR JE X 9 [...] 2- 6- 00 T 18 Y ve WY 21 20 20 PH 5 AZAM DE [...] G 69 20 20 PH 5 Y WY 61 10 10 AR JE X 9 [...] 10 AR JE E 6 MA NN MT CY IF OP 71 ER 74 B [...] -0 -2 .0 AR 07 YN ti MT 80 1- 9- 00 T 00 E [...] 2- 6- 00 T 18 Y ve WY 21 20 20 PH 5 AZAM DE [...] -0 -2 .0 AR 07 YN ti MT 30 1- 9- 00 T 00 E [...] G 69 20 20 PH 8 TH WY 61 10 10 AR X 9 MA [...] 2- 8- 00 T 18 Y ve WY 21 20 20 PH 5 AZAM DE [...] -0 -0 .0 AR 07 YN ti MT 30 1- 00 T 00 E ve [...] 2- 1- 00 T 18 Y ve WY 21 20 20 PH 5 AZAM DE [...] -3 -0 .0 AR 94 YN ti MT 30 1- 2- 00 T 40 E [...] G 69 20 20 PH 8 TH WY 61 10 10 AR X 9 MA [...] 2- 3- 00 T 18 Y ve WY 21 20 20 PH 5 AZAM DE [...] -3 -0 .0 AR 94 YN ti MT 30 1- 2- 00 T 40 E [...] 8- 7- 00 T 58 Y ve WY 29 20 20 PH 9 AZAM DE [...] G 69 20 20 PH 3 TH WY 61 10 10 AR X 9 MA [...] -3 -0 .0 AR 94 YN ti MT 30 1- 2- 00 T 40 E [...] 8- 5- 00 T 58 Y ve WY 29 20 20 PH 9 AZAM DE [...] G 69 20 20 PH 3 TH WY 61 10 10 AR X 9 MA [...] -3 -0 .0 AR 94 YN ti MT 30 1- 2- 00 T 40 E [...] 8- 6- 00 T 58 Y ve WY 21 20 20 PH 9 AZAM DE [...] G 69 20 20 PH 3 TH WY 61 10 10 AR X 9 MA RA 70 CY -3 71 ND 0 74 ER FL # S EX PE 71 N 74 SY RN ME 00 06 06 21 6 RI 62 MU Ac TH 60 -0 -0 .0 TE 93 TI ti YL 34 7- 7- 00 98 SO ve MT 59 20 20 AI ED 31 10 10 D AN NI [address] SO AR EW LO MA M NE CY 4 02 MG 29 0 DO # SE 02 PK 29 ME 00 03 06 6 60 30 KM 68 PA Ac TO 09 -3 -0 .0 AR 94 YN ti MT 30 1- 1- 00 T 40 E [...] 8- 5- 00 T 58 Y ve WY 21 20 20 PH 9 AZAM DE [...] -3 -2 .0 AR 94 YN ti MT 30 1- 9- 00 T 40 E [...] G 69 20 20 PH 1 TH WY 61 10 10 AR X 9 MA [...] 8- 4- 00 T 58 Y ve WY 62 20 20 PH 9 AZAM DE [...] -3 -3 .0 AR 94 YN ti MT 30 1- 1- 00 T 40 E [...] 8- 8- 00 T 58 Y ve WY 62 20 20 PH 9 AZAM DE [...] 1- 8- 00 T 44 IN ve WY 62 20 20 PH 8 G DE [...] -3 -0 .0 AR 80 YN ti MT 30 1- 1- 00 T 99 E [...] -3 -1 .0 MA 80 YN ti MT 30 1- - RT 99 E ve [...] 1 R [address] NINA ZHANG 1 UG BE L RT 50 CO [...] 3 R [address] WOOD 1 UG BE MG RT CO E CA PS IN UL C E LY 00 12 01 00 12 30 EC 46 WI Ac RI 07 -2 -1 0. ON 87 ND ti CA 11 9- 4- 00 OM 52 SO ve 01 20 20 0 Y 2 R [address] WOOD 0 8 UG BE MG RT CO E CA PS IN UL C E ME 00 08 01 04 60 30 K- 68 PA Ac TO 09 -3 -1 .0 MA 80 YN ti MT 30 1- 4- 00 RT 99 E [...] 7 R [address] NINA ZHANG 1 UG BE L RT 50 CO [...] -3 -1 .0 MA 80 YN ti MT 30 1- 7- 00 RT 99 E [...] MA 76 NN ti 00 8- 7- RT 76 IN ve 20 20 20 [...] 7 R [address] NINA ZHANG 1 UG BE L RT 50 CO [...] -3 -0 .0 MA 80 YN ti MT 80 1- 5- 00 RT 99 E [...] -3 -0 .0 MA 80 YN ti MT 80 1- 8- 00 RT 99 E [...] -3 -1 .0 MA 80 YN ti MT 80 1- 0- 00 RT 99 E [...] -2 -1 .0 MA 58 YN ti MT 80 5- 3- 00 RT 62 E [...] -2 -1 .0 MA 58 YN ti MT 80 5- 6- 00 RT 62 E [...] -2 -0 .0 MA 58 YN ti MT 80 5- 4- 00 RT 62 E [...] -2 -0 .0 MA 58 YN ti MT 80 5- 7- 00 RT 62 E [...] MA 68 NN ti TO 00 2 3- 00 RT 82 IN ve R [...] ON 74 ND ti PI 83 5- 9 00 OM 97 SO ve N 12 [...] -2 -0 .0 MA 58 YN ti MT 80 5- 9- 00 RT 62 E [...] -2 -1 .0 MA 58 YN ti MT 80 5- 2- 00 RT 62 E [...] -2 -1 .0 MA 58 YN ti MT 80 5- 2- 00 RT 62 E [...] 0 17 MG 4 TA BL ET MT 00 01 01 00 24 6 EC [...] -2 -0 .0 MA 58 YN ti MT 80 5- 1- 00 RT 62 E ve OL 03 20 20 2 VA OL 21 08 09 PH UG 0 AR HN TA M W RT #7 RA 17 TE 4 50 MG TA B FU 00 07 01 05 30 30 K- 68 PA Ac RO 37 -2 -0 .0 MA 56 YN ti SE 80 1- 1- RT 23 E ve WY 21 20 [...] 53 TT ti AD 84 8- 1- RT 74 EN ve OL 15 20 [...] -2 -0 .0 MA 58 YN ti MT 80 5- 4- 00 RT 62 E [...] MA 56 YN ti AP 90 1 7- RT 22 E ve RI 92 20 20 8 VA L 60 08 08 PH UG MA 2 AR HN LE M W AT #7 E 17 20 4 MG TA B FU 00 07 11 03 30 30 K- 68 PA Ac RO 37 -2 -0 .0 MA 56 YN ti SE 80 1- 7- 00 RT 23 E ve WY 21 20 20 0 VA DE 61 08 08 PH UG 0 AR HN 40 M W #7 MG 17 4 TA BL ET ME 00 08 11 02 60 30 K- 68 PA Ac TO 37 -2 -0 .0 MA 58 YN ti MT 80 5- 7- 00 RT 62 E [...] 56 YN ti SE 80 1- 9- RT 23 E ve WY 21 20 20 0 VA DE 61 08 08 PH UG 0 AR HN 40 M W #7 MG 17 4 TA BL ET ME 00 08 10 01 60 30 K- 68 PA Ac TO 37 -2 -0 .0 MA 58 YN ti MT 80 5- 9- 00 RT 62 E [...] -2 -1 .0 MA 58 YN ti MT 80 5- 1- 00 RT 62 E [...] 00 60 30 K- 68 BA Ac MT 18 -1 -1 .0 MA 53 IL [...] 08 PH CH E 9 AR RI MT M ST OP #7 OP 17 HE [...] TA BL ET 00 06 07 00 90 30 K- [...] R TA M BL ET LY 00 06 07 00 [...] .0 MA 53 IL ti TO 00 2 7- RT 98 EY ve R 75 20 [...] MG 4 R M TA BL ET MT 68 05 06 00 12 4 K- [...] 08 AC la E 9 E bl MT PH e OP M IN 50 C [...] 08 AC la E 9 E bl MT PH e OP M IN 50 C [...] -1 -1 .0 MA 48 t ti MT 80 8- 7- 00 RT 60 Av [...] 08 AC la E 9 E bl MT PH e OP M IN 50 C [...] -2 -2 .0 MA 43 t ti MT 80 7- 6- 00 RT 16 Av [...] 17 ET 4 DI 57 08 03 30 30 K- 68 No Ac GO 66 -2 -2 .0 MA 43 t ti XI 40 7- 5- 00 RT 16 Av ve N 44 20 20 0 ai 0. 18 07 08 PH la 25 8 AR bl M e MG #7 17 TA 4 BL ET TR 00 08 03 30 30 K- 68 No Ac IC [...] 1- 5- 00 R 69 Av ve WY 02 20 20 0 TR ai N 80 07 08 AC la HC 5 E bl L PH e 50 M 0 IN MG C TA BL ET FU 00 08 03 30 30 K- 68 No Ac RO [...] -2 -2 .0 MA 43 t ti MT 80 7- 5- 00 RT 16 Av [...] Procedure DOS Code Location Performer Comment MEASUREME [id number] RADHA GARCIA NT 5 W [facility] RT HEART PERQ TRANSFUSI [id number] RADHA GARCIA ON 5 W W NONAUTO [facility] RED BLD MEDICAL MEDICAL CELLS PERIPH VN PERQ INSERTION 0046 [facility] [place] 5 Y Y VASCULAR [facility] STENTS PERQ 0066 [facility] 5 Y Y [facility] CORONARY ANGIOPLAS TY PTCA INSERTION 3607 [facility] 5 Y Y [facility] ING CORONARY ARTERY STENT LEFT 3722 [facility] 5 Y Y CARDIAC [facility] CATHETERI ZATION CORONARY 8856 [facility] ARTERIMUSCOGEE 5 Y Y [facility] [place] USING TWO CATHETERS INSERTION 8607 [facility] 1 [facility] IMPL MEDICAL MEDICAL VASCULAR CE CE ACCESS DEVICE Encounters Encounter Start End Date Code Location Performer Type Date [facility] - 7 7 [facility] 7 [facility] - 7 7 [facility] - 7 7 [facility] - 7 7 [facility] - 7 7 [facility] [place] [facility] 7 7 [facility] [place] [facility] 7 7 [facility] - 7 7 [facility]PATIENT [facility] - 7 7 [facility]PATIEN [facility] [place] [facility] 7 7 [facility] [place] [facility] - 7 7 [facility] - 6 6 [facility] - 6 6 [facility] - 6 6 [facility] 6 6 [facility] - 6 6 [facility] 6 6 [facility] 6 6 [facility] - 6 6 [facility] - 6 6 [facility] - 6 6 [facility] - 6 6 [facility] 6 6 [facility] 6 6 [facility] 6 6 [facility] 5 [facility] 5 [facility] - 5 5 [facility] [address] [facility] 5 [facility] 5 5 [facility] 5 5 [facility] INPATIENT [facility] [address] [facility] - 5 5 [facility] - 5 5 [facility] 5 5 [facility] - OTHER 5 5 [facility] 5 5 [facility] OUTPATIEN [facility] [address] [facility] - 5 5 [facility] [address] [facility] - 5 5 [facility] [address] [facility] - 5 5 [facility] - 5 5 [facility] HOME [facility], 5 5 HOME OUTPATIEN HEALTH AGENCY HOME [facility] 5 5 HOME OUTPATIEN HEALTH [facility]ENCY [place], 5 5 HOME OUTPATIEN HEALTH AGENCY [place] [facility] 4 4 HOME OUTPATIEN HEALTH [facility] - 4 4 [facility] [place] - [facility] 4 [facility] OUTPATIEN [facility] 4 4 [facility]PATIEN INC [facility] 4 4 [facility] [place] - 4 4 [facility]AL OUTPATIEN [facility] - 4 4 [facility] [place] [facility] 4 4 [facility] [place] - 4 4 [facility] - 4 4 [facility] [place] [facility] 4 4 [facility] - 3 3 [facility] [place] - 3 3 [facility]IONAL OUTPATIEN MEDICAL [facility] [place] - 3 3 [facility] OUTPATIEN [facility] - 3 3 [facility] [place] - 2 2 [facility]PATI[facility] [place] - 2 2 [facility]PATI[facility] [place] - 1 1 REGIONAL OUTPATIEN MEDICAL T CE [facility], 1 1 HOME OUTPATIEN HEALTH [facility] [place] - 1 1 [facility]AL INPATIENT [facility] [place] - 0 0 [facility] [place] - 0 0 [facility]PATIEN [facility] [place] [facility] 0 0 [facility] OUTPATIEN [facility] [place] - 0 0 [facility] [place] - 9 9 [facility] OUTPAT[facility]EN [facility] [place] - 9 9 [facility]PATIEN [facility] [place] - 9 9 [facility]PATI[facility] [place] - 8 8 [facility]PAT[facility] [place] - 8 8 [facility] [place] [facility] 8 8 [facility] [place] [facility] 8 8 [facility] [place] [facility] 8 8 [facility] [place] [facility] 8 8 [facility] [place] [facility] 8 8 [facility] [place] [facility] 8 8 [facility] [place] [facility] 8 8 [facility] [place] [facility] 8 8 [facility] [place] [facility] 8 8 [facility] [place] - 8 8 [facility] [place] [id number] [facility] [place] [facility] [place] [facility] 8 [facility]
--- OUTSIDE RECORDS SUMMARY | 2017-03-14 17:52 | External Medical Summary Rpt | CCD ---
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 Name Role Phone [facility], [facility] Unavailable Unavailable [facility] Unavailable Unavailable [facility], [facility] Unavailable Unavailable [facility]PON[facility], [facility] RHODA BACA MD, PSC, Unavailable Unavailable RHODA BACA MD, PSC [facility] Unavailable [place], [facility] [place] KENTON ARMIJO, Unavailable Unavailable KENT[facility] ARMIJO MD, Unavailable Unavailable [facility], ROSY POWELL MD, [facility] MASSIMO MARISCAL Unavailable Unavailable M, MASSIMO MARISCAL, Unavailable Unavailable M.Marko.P.S.CIrena, LES MARCH M.D.P.S.CIrena [facility], Unavailable Unavailable [facility] BHAGRATH, KSENIA S, Unavailable Unavailable BHAGRATH, KSENIA S [facility] Unavailable Unavailable ON RED, [facility] ON [facility] Un[facility] Un[facility], [facility] Unavailable Unavailable SERVICE, [facility] Unavailable Unavailable SERVICE, [facility] Unavailable Unavailable CONSULTANTS O, [facility], [facility]available Unavailable [facility], Unavailable Unavailable [facility] Unavailable Unavailable [facility] ALESSANDRA-ERIC, Unavailable Unavailable JERMAINEYANG ARMENDARIZ, JERMAINE INDY KOKO, Unavailable Unavailable INDY KOK[facility] Unavailable [facility], [facility], [place], Unavailable Unavailable KEY, [place] [facility] Unavailable Unavailable KIDNEY CARE, [facility] Unavailable Unavailable [facility], [facility], [facility]available Unavailable [facility] Unavailable Unavailable INC, [facility] FALLIS DIANA, FALLIS Unavailable Unavailable DIANA [facility] Unavailable Unavailable #471, [facility] MORRO ZHENG, Unavailable Unavailable MORRO ZHENG GUNDUMALLA, ISABEL K, Unavailable Unavailable GUNDUMALLA, ISABEL K [facility] Unavailable Unavailable PHARMACY, [facility], Unavailable Unavailable [facility] Unavailable Unavailable INC, [facility] Unavailable [facility]available HOSPITAL, [facility] Unavailable Unavailable HOSPITAL P, [facility] HOSPITAL P [facility] Unavailable [facility]available MEDICAL CE, [facility] Unavailable Unavailable MEDICAL CENT, [facility] Unavailable Unavailable INC, [facility], Unavailable Unavailable [facility] Unavailable Unavailable PLL[facility], [facility], Unavailable Unavailable HOSPICE [facility] Unavailable Unavailable PHYSICIANS, [facility] RIAN, VANDANA Cox, RIAN, Unavailable Unavailable VANDANA [facility] Unavailable Unavailable [place], [facility] [place] [facility], Unavailable Unavailable [id number] Unavailable Unavailable [id number] Unavailable Unavailable PHARMACY, [facility] Un[facility] Un[facility], [facility] & Unavailable Unavailable VASCULAR PH, [facility] Unavailable Unavailable IMAGING ASS, [facility] # Unavailable Unavailable [id number], [facility] [id number] [facility] [id number] # Unavailable Unavailable 7174, [facility] [id number] # [id number] [facility] Unavailable Unavailable [facility], [facility], [facility] Unavailable Unavailable [facility]ITY ACT, [facility] LUIS E HAM, LUIS E HAM [facility]available Unavailable [facility] Unavailable Unavailable ASSOCIAT, [facility] Un[facility] SURG[facility], [facility] Unavailable Unavailable MEDICAL, [facility] Un[facility] Unavailable LLC, [facility] Unavailable [facility]available [facility]ARMACY, [facility], Unavailable Unavailable [facility] Un[facility], [facility] Unavailable Unavailable AMBULANCE SE, [facility], Unavailable Unavailable PLLC, [facility] KRAFT ANTONINA, KRAFT Unavailable Unavailable ANTONINA [facility], Unavailable Unavailable [facility] PAWSAT, PAWSAT Unavailable Unavailable PAWSAT MAR, PAWSAT Unavailable Unavailable MAR HURLEYRICHARD FERRERA W, Unavailable Unavailable HURLEYRICHARD FERRERA W PEASI, PEASI Unavailable Unavailable [facility] Unavailable Unavailable PRACTICE CL, [facility] PRACT[facility] CL [facility] Unavailable Unavailable [facility]AN, [facility] Unavailable Unavailable [facility], [facility], Unavailable Unavailable [facility] Unavailable Unavailable SERVICE, [facility] PROVID[facility] Unavailable Unavailable SERVICES IN, [facility] Unavailable Unavailable [facility], [facility] Unavailable Unavailable [id number] # [id number], [facility] [id number] # [id number] [facility] Unavailable Unavailable HEALTH CARE, [facility], Unavailable [facility]available [facility] KETTY BROTHERS, ZEV, Unavailable Unavailable KETTY C [facility] Unavailable Unavailable EQUIPME, [facility], Unavailable Unavailable [facility], Unavailable Unavailable [facility] Unavailable Unavailable HOSPITALS, [facility], Unavailable Unavailable [facility], Unavailable Unavailable [facility] # Unavailable Unavailable [id number], [id number] # [id number] [facility] Unavailable Unavailable AGENCY, [facility] ZE MAN, Unavailable Unavailable ZE MAN WILLIAM Unavailable Unavailable ALEXANDREA Clemente WILLIAM H ZAMBOS, PHILIP N, Unavailable Unavailable MICHAEL DE LA ROSA Purpose Continuity of Care Document - 10-31-2006 through 2016 Problems Code Diagnosis DOS Provider Status I129 HYPERTENSIV 02-19-2017 COR[facility] Roberts CKD PHYSICIANS, W/STAGE 1-4 [facility] CKD OR UNS CKD M069 RHEUMATOID 02-19-2017 [facility] UNSPECIFIED SERVICE N189 CHRONIC 02-19-2017 [facility] KIDNEY PHYSICIANS, DISEASE [facility] UNSPECIFIED R0602 SHORTNESS 02-19-2017 [facility] OF BREATH PHYSICIANS, [facility] R0689 OTHER 02-19-2017 [facility] ABNORMALITI [facility] ES OF AMBULANCE BREATHING SE R600 LOCALIZED 02-19-2017 [facility] EDEMA [facility] AMBULANCE SE Z7409 OTHER 02-19-2017 [facility] REDUCED AMBULANCE MOBILITY SERVICE I10 ESSENTIAL 02-15-2017 [facility] HYPERTENSIO ASSOCIATES N N183 CHRONIC 02-15-2017 [facility] DISEASE ASSOCIATES STAGE 3 MODERATE N179 ACUTE 02-12-2017 [facility] FAILURE [facility]OC[facility] UNSPECIFIED M07283 ULCERATIVE 01-29-2017 [place] [facility] LEFT LOWER [...] INC WITHOUT ESOPHAGITIS R079 CHEST PAIN 01-27-2017 [place] [facility] Z794 GENERAL DUTY NURSE 01-27-2017 [facility] CURRENT USE [facility] OF INSULIN INC Z7982 CHCF 01-27-2017 [facility] CURRENT USE [facility] OF ASPIRIN INC I2510 ASHD YUROK 01-22-2017 CORONARY [facility] ARTERY W/O HOSPITALS ANGINA PECTORIS I252 OLD 01-22-2017 MYOCARDIAL [facility] INFARCTION HOSPITALS I255 ISCHEMIC 01-22-2017 CARDIOMYOPA [facility] THY HOSPITALS I472 VENTRICULAR 01-22-2017 [facility]OSPITALS I5022 CHRONIC 01-22-2017 [facility] CONGESTIVE HOSPITALS HEART FAILURE I509 HEART 01-22-2017 [facility] FAILURE HEALTH UNSPECIFIED ASSOCIATES R0609 OTHER FORMS 01-22-2017 [facility] DYSP[facility]CARE HOSPITALS I16431 PRESENCE 01-22-2017 [facility] IMPLANTABLE HOSPITALS CARDIAC DEFIBRILLAT [place] R918 OTHER 01-19-2017 [facility] NONSPECIFIC [facility] ABNORMAL FINDING OF LUNG FIELD E785 HYPERLIPIDE 01-18-2017 [facility] HEALTH UNSPECIFIED ASSOCIATES G894 CHRONIC 01-14-2017 [facility] PAIN [facility] SYNDROME HEALTH CARE N19 UNSPECIFIED 01-14-2017 [facility] KIDNEY [facility] FAILURE HEALTH CARE Z950 PRESENCE OF 01-14-2017 [facility] CARDIAC [facility] CARE Z955 PRESENCE OF 01-11-2017 CORONARY [facility] ANGIOPLASTY HOSPITALS IMPLANT & GRAFT M6281 MUSCLE 01-05-2017 [facility] WEAKNESS AMBULANCE GENERALIZED SERVICE X18720 OTHER LONG 01-05-2017 [facility] P DRUG THERAPY Z882 ALLERGY 01-05-2017 [facility] STATUS TO MEM HOS[facility] SULFONAMIDE INC S STATUS R609 EDEMA 01-04-2017 [facility] UNSPECIFIED [facility]ARE HOSPITALS E139 OTH SPEC 01-01-2017 [facility] DIABETES PHYSICIANS MELLITUS GROUP W/O COMPLICATIO NS E875 HYPERKALEMI 01-01-2017 [facility] A PHYSICIANS GROUP I5020 UNSPECIFIED 01-01-2017 [facility] SYSTOLIC PHYSICIANS CONGESTIVE GROUP HEART FAILURE Z4502 ENCOUNTER 12-21-2016 [facility] AUTO HOSPITALS IMPLANTABL CARD DEFIB N390 URINARY 12-16-2016 [facility] INFECTION ASSOCIATES SITE NOT SPECIFIED R001 BRADYCARDIA 12-14-2016 [facility]NS[facility]ATION R69 ILLNESS 12-14-2016 [...] FAILURE HOSPITALS WITH HYPERCAPNIA R0600 DYSPNEA 12-13-2016 [facility] UNSPECIFIED SERV FOUNDATION D631 ANEMIA IN 12-04-2016 [facility] CHRONIC SERV KIDNEY [facility]OUND[facility] DISEASE N250 RENAL 12-04-2016 [facility] OSTEODYSTRO SERV PHY FOUNDATION J129 VIRAL 11-28-2016 [facility] PNEUMONIA [facility] UNSPECIFIED R339 RETENTION 11-21-2016 [facility] OF URINE [facility] P R338 OTHER 11-14-2016 [facility]ALITY RETENTION PROVIDER OF URINE SERVICES IN O35577 PRESSURE 10-14-2016 [facility] ULCER OF PROVIDER RIGHT HEEL SERVICES IN UNSTAGEABLE E22171 NON-PRSS 10-14-2016 [facility] CHR ULCR PROVIDER UNS PART SERVICES IN UNS LOW LEG UNS SEV J189 PNEUMONIA 09-29-2016 [facility] UNSPECIFIED PHYSICIANS ORGANISM GROUP N289 DISORDER OF 09-29-2016 [facility] KIDNEY AND PHYSICIANS URETER GROUP UNSPECIFIED R05 COUGH 09-28-2016 [facility] AMBULANCE SE I5021 ACUTE 09-08-2016 [facility] SYSTOLIC SERV CONGESTIVE FOUNDATION HEART FAILURE R279 UNSPECIFIED 09-08-2016 [facility] LACK OF MEDICAL COORDINATIO RESPONSE N I130 HTN HEART & 09-07-2016 [facility] CKD W/HF & SERV CKD STAGE FOUNDATION 1-4 OR UNS CKD I5023 ACUTE CHRON 09-07-2016 [facility] SYSTOLIC SERV HEART FOUNDATION FAILURE I517 CARDIOMEGAL 09-07-2016 [facility] Y SERV [facility] J9601 ACUTE 09-07-2016 [facility] RESPIRATORY SERV FAILURE FOUNDATION WITH HYPOXIA R778 OTHER 09-07-2016 [facility] SPECIFIED SERV ABNORMALITI FOUNDATION ES OF PLASMA PROTEINS I214 NON-ST 09-06-2016 [facility] HOSPITALS INFARCTION I4581 LONG QT 09-06-2016 [facility] SYNDROME SERV FOUNDATION J9691 RESPIRATORY 09-06-2016 [facility] FAILURE SERV UNSPECIFIED FOUNDATION WITH HYPOXIA R9431 ABNORMAL 09-06-2016 [facility] ELECTROCARD SERV IOGRAM FOUNDATION E1165 TYPE 2 09-05-2016 [facility] P WITH HYPERGLYCEM IA D35242 PAIN IN 09-05-2016 [place] RIGHT LEG MEDICAL IMAGING ASS N06161 PAIN IN 09-05-2016 [place] LEFT LEG MEDICAL IMAGING ASS M7989 OTHER 09-05-2016 [place] SPECIFIED MEDICAL SOFT TISSUE IMAGING ASS DISORDERS R269 UNSPECIFIED 09-05-2016 [facility] ABNORMALITI AMBULANCE ES OF GAIT SE AND MOBILITY R531 WEAKNESS 09-05-2016 [facility] AMBULANCE SE Z8679 PERSONAL 09-05-2016 [facility] HISTORY OTH PHYSICIANS, DISEASES [facility] CIRCULATORY SYSTEM Z7401 BED 08-30-2016 [facility] AMBULANCE STATUS SERVICE E109 TYPE 1 08-14-2016 [facility] DIABETES HEALTH MELLITUS ASSOCIATES WITHOUT COMPLICATIO NS L0390 CELLULITIS 08-14-2016 [facility] UNSPECIFIED HEALTH ASSOCIATES M869 OSTEOMYELIT 08-11-2016 [facility] IS MOBILE XRAY UNSPECIFIED SERVICE R0989 OTH SPEC SX 07-20-2016 [facility]AL[facility] & SIGNS MOBILE XRAY INVLV THE SERVICE CIRC & RESP SYS E1151 TYPE 2 DM 05-11-2016 [facility] W/DIAB PERIPH 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 M86292 PRESSURE 05-11-2016 [facility] ULCER OF RIGHT ANKLE STAGE 2 S13319 PRESSURE 05-11-2016 [facility] ULCER OF LEFT ANKLE UNSTAGEABLE M1990 UNSPECIFIED 05-06-2016 [facility] OSTEOARTHRI SERVICE TIS UNSPECIFIED SITE R0789 OTHER CHEST 05-06-2016 [facility] PAIN PHYSICIANS, [facility] M01065 CELLULITIS 04-25-2016 [facility] OF RIGHT LOWER LIMB G11916 PRESSURE 04-25-2016 [facility] ULCER OF RIGHT HEEL STAGE 2 E559 VITAMIN D 04-24-2016 [facility] DEFICIENCY HEALTH UNSPECIFIED ASSOCIATES L089 LOCAL INF 04-18-2016 [facility] THE SKIN & HEALTH SUBCUTANEOU ASSOCIATES S TISSUE UNS R319 HEMATURIA 04-18-2016 [facility] K38340 U[facility] 04-17-2016 [facility]LE[facility] RIGHT LOWER EYELID A44856W UNSPECIFIED 03-29-2016 [facility] OPEN WOUND HEALTH LOWER ASSOCIATES LEG INITIAL ENC Q41478 PAIN IN 03-20-2016 [facility] LEFT KNEE MEM [facility]OS[facility] INC M179 OSTEOARTHRI 02-22-2016 [facility] TIS OF KNEE MEM HOSP INC UNSPECIFIED N4889 OTHER 02-18-[address] [facility] P OF PENIS N489 DISORDER OF 02-18-2016 [facility] UNSPECIFIED AMBULANCE SE R3989 OTH 02-18-2016 [facility] SYMPTOMS & [facility] SIGNS AMBULANCE INVOLVING SE THE SYSTEM R52 PAIN 02-18-2016 [facility] UNSPECIFIED [facility] AMBULANCE SE Z000PJQ UNS COMP 02-18-2016 [facility] PROSTH [facility] DEVICE IMPL AMBULANCE & GRAFT SE INIT ENC R1084 GENERALIZED 02-13-2016 [facility] ABDOMINAL [facility]Y PAIN AMBULAN R1930 ABDOMINAL 02-13-2016 [facility]IG[facility]ITY [facility] UNSPECIFIED AMBULAN SITE R5381 OTHER 02-13-2016 [facility] MALAISE AMBULANCE SERVICE Z466 ENCOUNTER 02-13-2016 [facility] FITTING AND PHYSICIANS, ADJUSTMENT [facility] URINARY DEVICE E118 TYPE 2 02-04-2016 [facility] DIABETES [facility]OSP MELLITUS INC W/UNS COMPLICATIO NS Z539 PROCEDURE & 02-04-2016 [facility] TREATMENT [facility]OS[facility] NOT CARRIED INC OUT UNS REASON M169 OSTEOARTHRI 01-10-2016 RHODA BACA TIS OF HIP , [facility] UNSPECIFIED Q47539 PAIN IN 01-10-2016 [facility] UNSPECIFIED [facility]OS[facility] HIP INC G41110 PAIN IN 01-10-2016 [facility] UNSPECIFIED [facility] HOS[facility] KNEE INC E878 OTHER D/O 12-27-2015 [facility] OF HEALTH ELECTROLYTE ASSOCIATES AND FLUID BALANCE NEC F38453 OTHER 12-17-2015 [facility] SPECIFIED MEM HOSP RHEUMATOID INC ARTHRITIS LEFT HIP M1612 UNILATERAL 12-17-2015 [facility] PRIMARY [facility]OS[facility] OSTEOARTHRI INC TIS LEFT HIP S70875 PAIN IN 12-07-2015 [facility] LEFT THIGH [facility]OS[facility] INC T32773 PAIN IN 12-07-2015 [facility] LEFT LOWER MEM HOS[facility] LEG INC S16082 PAIN IN 12-06-2015 [facility] LEFT HIP MEM HOS[facility] INC U17742 NON-PRSS 11-24-2015 [facility] CHRN ULCER PHYSICIANS SKIN OTH GROUP SITES UNS SEVERITY B79668 TYPE 2 11-16-2015 [facility] D[facility] DIABETES MELLITUS WITH FOOT ULCER M2570 OSTEOPHYTE 11-16-2015 [facility] UNSPECIFIED JOINT G08022 PAIN IN 10-19-2015 [facility] RIGHT FOOT D509 IRON 09-29-2015 [facility] DEFICIENCY HEALTH ANEMIA ASSOCIATES UNSPECIFIED I44375 COMBINED 08-24-2015 [facility]-RELATED INSTITUTE CATARACT LEFT EYE H269 UNSPECIFIED 08-24-2015 [facility] CATARACT MEM HOS[facility] INC C18278 COMBINED 07-27-2015 [facility] EYE [facility]-RELATED INSTITUTE CATARACT RIGHT EYE E46 UNSPECIFIED 2015 [facility] PROTEIN-EVGENY ASSOCIATES ORIE MALNUTRITIO N G54786 COMBINED 06-22-2015 [facility] OF EYE A[facility]-RELATED INSTITUTE CATARACT BILATERAL H538 OTHER 06-22-2015 [place] [facility]UAL [facility] DISTURBANCE INSTITUTE S N186 END STAGE 05-24-2015 [facility] RENAL [facility] DISEASE ASSOCIATES 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 [facility] CY CHRONIC PERIPHERAL I071 RHEUMATIC 05-11-2015 [facility] SERV INSUFFICIEN FOUNDATION CY 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 05-11-2015 [facility] MITRAL SERV VALVE FOUNDATION INSUFFICIEN CY Z0189 ENCOUNTER 05-06-2015 NATAC[facility] CLEARY OTHER AMB SERVICE SPECIFIED SPECIAL EXAMINATION S E1136 TYPE 2 04-29-2015 [facility] DIABETES VISION MELLITUS CENTER WITH DIABETIC CATARACT H2513 AGE-RELATED 04-29-2015 [facility] NUCLEAR VISION CATARACT CENTER BILATERAL W22474 CATARACT 04-29-2015 [facility] SECONDARY TO OCULAR DISORDERS UNS EYE I5032 CHRONIC 04-29-2015 [facility] DIASTOLIC CONGESTIVE HEART FAILURE R5382 CHRONIC 04-29-2015 [facility] FATIGUE UNSPECIFIED 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 M7731 CALCANEAL 03-30-2015 [place] SPUR RIGHT MEDICAL FOOT IMAGING ASS M059 RA WITH 03-23-2015 [facility] RHEUMATOID EMERGENCY FACTOR AMBULAN UNSPECIFIED O77497 PAIN IN 03-23-2015 [facility] UNSPECIFIED EMERGENCY LIMB AMBULAN N70908B LACERATION 03-23-2015 [facility] W/FOREIGN EMERGENCY BODY UNS AMBULAN FOOT INITIAL ENC Z7901 GENERAL DUTY NURSE 03-16-2015 [facility] CURRENT USE HEALTH OF ASSOCIATES ANTICOAGULA NTS G8929 OTHER 02-25-2015 [facility] CHRONIC EMERGENCY PAIN AMBULAN J9690 RESP FAIL 02-25-2015 [facility] UNS UNS EMERGENCY WHETHER AMBULAN W/HYPOXIA/H YPERCAPNIA E975 02-24-2015 [facility] A419 SEPSIS 02-18-2015 [facility] UNSPECIFIED HEALTH ORGANISM ASSOCIATES E0590 THYROTOXICO 02-18-2015 [facility] SIS UNS W/O HEALTH THYROTOXIC ASSOCIATES CRISIS/STOR M R350 FREQUENCY 02-18-2015 [facility] MICTURITION ASSOCIATES R7989 OTHER SPEC 02-18-2015 [facility] ABNORMAL HEALTH FINDINGS ASSOCIATES BLOOD CHEMISTRY R4182 ALTERED 01-22-2015 [facility] M[facility]AL EMERGENCY STATUS AMBULAN UNSPECIFIED I270 PRIMARY 01-21-2015 [facility] PULMONARY LAR HYPERTENSIO CONSULTANTS N O Q92508 ASHD YUROK 01-19-2015 [facility] COR ARTREY LAR W/UNS CONSULTANTS ANGINA O PECTORIS C89921J NONDSPL FX 01-19-2015 [facility] 2ND GENERAL METATARSAL SURGERY RT FT INIT ENC CLOS FX E1365 OTH SPEC 01-16-2015 [facility] DIABETES LAR MELLITUS CONSULTANTS WITH O HYPERGLYCEM IA I272 OTHER 01-15-2015 [facility] SECONDARY REGIONAL PULMONARY MEDICAL HYPERTENSIO N J811 CHRONIC 01-15-[facility] PULMON[facility] RADIOLOGY EDEMA ASSOCIAT J9610 CHRONIC 01-15-2015 [facility] RESPIRATORY REGIONAL FAIL UNS MEDICAL HYPOXIA/HYP ERCAPNIA L26115 NON-PRSS 01-15-[facility] CHRN ULCR RADIOLOGY OTH PART LT ASSOCIAT FOOT UNS SEVERITY R16007 NON-PRSS 01-15-2015 [facility] CHR ULCR REGIONAL UNS PART LT MEDICAL LOW LEG UNS SEV X41915M DISPLACED 01-15-2015 [facility] FX 2ND RADIOLOGY METATARSAL ASSOCIAT RT FT INIT CLOS FX I5040 UNSPECIFIED 01-14-2015 [facility] SYSTOLIC & HOSPITAL DIASTOLIC CHF J90 PLEURAL 01-14-2015 [place] [facility]ICAL NOT IMAGING ASS ELSEWHERE CLASSIFIED M0540 RHEUMATOID 01-14-2015 [facility] MYOPATHY [facility] WITH RA HOSPITAL UNSPECIFIED SITE R590 LOCALIZED 01-14-2015 [place] ENLARGED MEDICAL LYMPH NODES IMAGING ASS 65149 COR 01-13-2015 [facility] ATHEROSLERO LAR UNSPEC CONSULTANTS TYPE VESSEL O YUROK/YOVANNY T 4258 CARDIOMYOPA 01-13-2015 [facility] THY OTHER LAR DISEASES CONSULTANTS CLASSIFIED O ELSW 4280 CONGESTIVE 01-13-2015 [facility] HEART LAR FAILURE CONSULTANTS [place]PECIFIED O 07237 SHORTNESS 01-13-2015 [facility] OF BREATH LAR [facility]SULT[facility] O 83354 DIAB W/O 01-12-2015 [facility] COMP TYPE [facility] II/UNS NOT HOSPITAL P STATED UNCNTRL 2724 OTHER AND 01-12-2015 [facility] UNSPECIFIED [facility] HYPERLIPIDE NICHOLAS 3384 CHRONIC 01-12-2015 [facility] PAIN [facility] SYNDROME 4019 UNSPECIFIED 01-12-2015 [facility] HYPERTENSIO HOSPITAL P N 4254 OTHER 01-12-2015 [facility] PRIMARY [facility] CARDIOMYOPA HOSPITAL P MARNI 4259 UNSPECIFIED 01-12-2015 [facility] SECONDARY [facility] CARDIOMYOPA THY 88725 UNSPECIFIED 01-12-2015 [facility] SYSTOLIC [facility] HEART FAILURE 496 CHRONIC 01-12-[address] [facility] [address] EMERGENCY OBSTRUCTION AMBULAN NEC 86175 ACUTE 01-12-2015 [facility] RESPIRATORY [facility] FAILURE 5849 ACUTE 01-12-2015 [facility] KIDNEY EMERGENCY FAILURE [facility]BULAN UNSPECIFIED 5853 CHRONIC 01-12-2015 [facility] KID[facility] DISEASE STAGE III (MODERATE) 7140 RHEUMATOID 01-12-2015 [facility] 7862 COUGH 01-12-2015 [facility] 34462 SOLITARY 01-12-2015 [facility] V4582 POSTSURG 01-12-2015 [facility]CUT [facility] ANGPLSTY STS V5867 LONG-TERM 01-12-2015 [facility] USE OF [facility] INSULIN HOSPITAL P V5869 LONG-TERM 01-12-2015 [facility] (CURRENT) [facility] USE OF HOSPITAL P OTHER MEDICATIONS 20058 01-04-2015 [facility] 78730 ATRIAL 12-25-2014 [facility] O 7823 EDEMA 12-25-2014 [facility] SERVICE 17315 OTHER FLUID 12-24-2014 [place] [facility] OVER[facility] SERV [facility] 05457 ANEMIA IN 12-24-2014 [facility] DISEASE 92191 HTN CKD UNS 12-24-2014 [facility] W/CKD SERV STAGE I [facility] THRU STAGE IV/UNS 5880 RENAL 12-24-2014 [facility] OSTEODYSTRO [facility] PHY [facility] 4240 MITRAL 12-22-2014 [facility] DISORDERS [facility] 4242 TRICUSPID 12-22-2014 [facility] SPEC NONRHEUMATI C 47465 OCCL&STENOS 12-22-2014 [place] [facility]ER[facility] ART W/O INFARCT 64290 OTHER 12-19-2014 [facility] CHRONIC [facility]YSICIANS PAIN GROUP 4011 ESSENTIAL 12-19-2014 [facility] HYPERTENSIO PHYSICIANS N, BENIGN GROUP 4439 UNSPECIFIED 12-18-2014 [facility] DISEASE O V4509 OTHER 12-18-2014 [facility] SPECIF[facility] CARDIAC INC DEVICE IN SITU 5601 PARALYTIC 12-09-2014 [facility] ILEUS PHYSICIANS GROUP 7873 FLATULENCE 12-02-2014 [facility] ERUCTATION PHYSICIANS AND GAS GROUP PAIN 39438 ABDOMINAL 12-02-2014 [facility] PAIN, PHYSICIANS UNSPECIFIED GROUP SITE 35644 UNS 12-01-2014 [facility] ASTRODUODIT SERVICE IS W/O MENTION HEMORR 5609 UNSPECIFIED 12-01-2014 [facility] OBSTRUCTION 10782 CALCU 12-01-2014 [facility] W/O MENTION IMAGING ASS CHOLECYST/O BST V4502 AUTOMATIC 12-01-2014 [facility] IMPLANTABLE [facility] CARDIAC INC DEFIBRILLAT OR SITU 250 DIABETES 11-26-2014 [facility] AREA AGENCY [place] RED 82409 OTHER 11-23-2014 [facility] SPECIFIED CARDIAC DYSRHYTHMIA S 5851 CHRONIC 11-23-2014 [facility] KIDNEY DISEASE STAGE I 93130 RESTLESS 11-06-2014 [facility] PRIMARY SYNDROME CARE 53864 ESOPHAGEAL 11-06-2014 [facility] REFLUX PRIMARY CARE 4293 CARDIOMEGAL 10-13-2014 [facility] [place] 86373 OTHER 10-13-2014 [facility] DYSPNEA AND [facility]AL MEDICAL CE RESPIRATORY ABNORMALITI ES 5932 ACQUIRED 10-07-2014 [place] [facility] K[facility]NEY IMAGING ASS 28913 UNSPECIFIED 09-11-2014 [facility] INFECTION PARTNERS OF OF BONE LEXINGT ANKLE AND FOOT 9597 INJURY 09-11-2014 [facility] CIFIED KNEE INC LEG ANKLE&FOOT V5881 FITTING AND 09-11-2014 [place] [facility]JUSTMENT [facility]ICAL OF IMAGING ASS VASCULAR CATHETER 34879 DIAB W/O 09-08-2014 [place] [facility] COMP TYPE FOUNDATION II/UNS TYPE UNCNTRL 2767 HYPERPOTASS 08-26-2014 [facility] P 412 OLD 08-26-2014 [facility] INFAR[facility] 18780 CORONARY 08-26-2014 [facility] CORONARY ARTERY 5859 CHRONIC 08-26-2014 [facility] DISEASE INC UNSPECIFIED 45294 WHEEZING 08-26-2014 [place] [facility] 1101 DERMATOPHYT 08-14-2014 [facility] OF NAIL 34555 DIAB 08-14-2014 [facility] W/PERIPH CIRC D/O TYPE II/UNS TYPE UNCNTRL 7295 PAIN IN 08-14-2014 [facility] SOFT TISSUES OF LIMB 462 ACUTE 08-08-2014 [facility] INC 44892 OTH NONSPC 08-08-2014 [place] [facility]N F[facility]NG MEDICAL RAD&OTH EXM IMAGING ASS BODY STRUCTURE 714 RA AND 07-23-2014 [facility] OTHER AREA AGENCY INFLAMMATOR ON RED Y POLYARTHROP ATHIES 61327 URINARY 07-09-2014 [facility] HESITANCY [facility] CARE 4271 PAROXYSMAL 06-22-2014 [facility] TACHYCARDIA V5331 FITTING AND 06-22-2014 [facility] OF CARDIAC FOUNDATION PACEMAKER V707 EXAMINATION 06-22-2014 [facility] SERV PARTICIPANT [facility] IN CLINICAL TRIAL 53709 OTHER 06-21-2014 [facility] BEATS [facility] 10172 NONSPECIFIC 06-21-2014 [facility] AB[facility] ELECTROCARD [facility] IOGRAM 47438 DIAB 06-18-2014 [facility] TYPE II/UNS TYPE UNCNTRL 39366 ACUT OK 06-18-2014 [facility] IAL INFARCT INIT EPIS CARE 38719 ULCER OF 06-18-2014 [facility] V4589 OTHER 06-18-2014 [facility] L STATUS [facility] OTHER 46351 DIAB W/O 06-17-2014 [facility] COMP TYPE I FOUNDATION [JUV TYPE] UNCNTRL 45306 ACUT 06-17-2014 [facility] UNS SERVICE SITE EPIS CARE UNS 51724 ACUTE 06-17-2014 [facility] P UNSPEC SITE INIT EPIS CARE 5180 PULMONARY 06-17-2014 [facility]LLAPSE [facility] 7850 UNSPECIFIED 06-17-2014 [place] [facility] TACHYCARDIA IMAGING ASS 67201 PRECORDIAL 06-17-2014 [facility] PAIN [facility] SERVICE 3572 POLYNEUROPA 06-10-2014 [facility] IN HEALTH DIABETES AGENCY 21448 ULCER OF 06-10-2014 [facility] OTHER PART HEALTH OF FOOT AGENCY 14990 MUSCLE 06-10-2014 [facility] WEAKNESS [facility]ALTH (GENERALIZE AGENCY D) 6879 CELLULITIS 04-14-2014 [facility] AND ABSCESS PRIMARY OF LEG CARE EXCEPT FOOT 61033 INSOMNIA 03-19-2014 [facility] UNSPECIFIED PRIMARY CARE 89217 UNSPECIFIED 01-22-2014 [facility] [place] [address] ULCER OF 01-22-2014 [facility]F [facility] INC V571 OTHER 01-22-2014 [facility] THERAPY INC 8911 OPEN WOUND 01-19-2014 [facility] OF KNEE LEG PRIMARY AND ANKLE CARE COMPLICATED 586 UNSPECIFIED 08-27-2013 [facility] RENAL REGIONAL FAILURE MEDICAL CE 7038 OTHER 08-27-2013 [facility] SPECIFIED PRIMARY DISEASE OF CARE NAIL 69560 OLECRANON 08-01-2013 [facility] BURSITIS PRIMARY CARE 00756 GEN 07-22-2013 [facility] HOME SIS MEDICAL INVOLVING EQUIPME MULTIPLE SITES 67337 GENERALIZED 05-22-2013 [facility] SIS UNSPECIFIED SITE 97501 ULCER OF 03-17-2013 [facility] HEEL AND PRIMARY MIDFOOT CARE 7812 ABNORMALITY 03-17-2013 [facility] OF GAIT PRIMARY CARE 12041 OSTEOARTHRO 02-20-2013 [facility] [place] S[facility] UNSPEC ORTHOPAEDIC WHETHER S PLC GEN/LOC LOWER LEG V0481 NEED 02-12-2013 [facility] PROPHYLACTI PRIMARY C CARE VACCINATION &INOCULATIO N FLU 66540 PAIN IN 11-15-2012 [facility] JOINT, PRIMARY SHOULDER CARE REGION 25523 PAIN IN 11-15-2012 [facility] JOINT, PRIMARY UPPER ARM CARE 23147 UNSPEC 10-08-2012 [facility] OF ATHY/POLYAR LEXINGTO THRITIS SITE UNSPEC 22503 DIAB 09-20-2012 [facility] W/NEURO REGIONAL MANIFESTS MEDICAL CE TYPE II/UNS TYPE UNCNTRL 4871 INFLUENZA 05-27-2012 [facility] [place] WITH OTHER RESPIRATORY MANIFESTATI ONS 38793 FEVER 02-02-2013 [facility] UNSPECIFIED [place] 4660 ACUTE 04-25-2012 [facility] [place] BRONCHITIS 4658 ACUTE URIS 02-28-2012 [facility] [place] OF OTHER MULTIPLE SITES 11159 PRESSURE 02-28-2012 [facility] [place] [facility] HEEL 7993 UNSPECIFIED 01-19-2012 [facility] 51423 OTHER 07-24-2011 [facility] [place] URINARY INCONTINENC E 98565 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 7291 UNSPECIFIED 12-23-2010 [facility] MYALGIA JOSE MARCHPIrenaSKaleigh MYOSITIS 83691 UNSPECIFIED 11-30-2010 [place] LAPAROSCOPI OSTEOMYELIT C & IS ANKLE ADVANCED S AND FOOT 9961 [facility] COMP 11-30-2010 [place] OTH LAPAROSCOPI VASCULAR C & DEVICE ADVANC[place] S IMPLANT&[place] [address] FLUSHING 09-20-2010 [facility] [place] [address] PRESSURE 06-14-2010 ROSY Nelson [facility] ANDRE VALDES, UNSPECIFIED LLC SITE 48899 ACUTE 06-14-2010 ROSY Nelson OSTEOMYELIT ANDRE VALDES, IS SITE LLC UNSPECIFIED 56499 ACUTE 06-02-2010 ROSY Nelson OSTEOMYELIT ANDRE VALDES, IS, ANKLE LLC AND FOOT 2859 UNSPECIFIED 05-19-2010 [place] [facility] 76571 UNSPECIFIED 05-19-2010 [place] [facility] INC ABSCESS OF TOE 13256 PRESSURE 05-19-2010 [facility] SOLUTIONS BUTTOCK 73687 UNSPECIFIED 05-17-2010 [place] LAPAROSCOPI OSTEOMYELIT C & IS OTHER ADVANCED S SPECIFIED SITES 05289 CHEST PAIN 05-17-2010 [place] UNSPECIFIED HEART & VASCULAR PH 6829 CELLULITIS 05-16-2010 [facility] [place] AND ABSCESS IMAGING PSC OF UNSPECIFIED SITE 36679 UNSPECIFIED 05-16-2010 ROSY POWELL MD, OSTEOMYELIT LLC IS SITE UNSPECIFIED 5939 UNSPECIFIED 05-13-2010 [facility] [place] DISORDER IMAGING PSC OF KIDNEY AND URETER 10657 OTHER CHEST 05-13-2010 [place] PAIN LAPAROSCOPI C & ADVANCED S 02833 OTHER 05-13-2010 [facility]TOMS [place] INVOLVING KIDNEY CARE URINARY SYSTEM 75556 PRESSURE 05-12-2010 [facility] LOWER [facility] [place] [address] PRESSURE 05-12-2010 [facility] ULCER STAGE REGIONAL II MEDICAL CE 7851 PALPITATION 04-19-2010 [place] S HEART & VASCULAR PH 3569 UNSPEC 04-14-2010 [facility] HEREDIT[facility]IDI FAMILY OPATHIC PRACTICE CL PERIPHERAL NEUROPATHY 44967 DIAB W/O 01-24-2010 [facility] COMP TYPE I FAMILY [JUV] NOT PRACTICE CL STATED UNCNTRL 7801 HALLUCINATI 12-23-2009 [facility] ONS EMERGENCY PHYSICIANS 6827 CELLULITIS 11-02-2009 [facility] AND ABSCESS EMERGENCY OF FOOT PHYSICIANS EXCEPT TOES 28337 OSTEOARTHRO 11-02-2009 [facility] [place] SIS UNSPEC IMAGING PSC WHETHER GEN/LOC ANK&FOOT 9174 FOOT&TOE 11-02-2009 [facility] INSECT BITE EMERGENCY PHYSICIANS NONVENOMOUS W/O MENTION INF 9175 FOOT AND 11-02-2009 [facility] TOE INSECT REGIONAL BITE MEDICAL NONVENOMOUS CENT INFECTED E0008 OTHER 11-02-2009 [facility] EXTERNAL REGIONAL CAUSE MEDICAL STATUS CENT E8490 PLACE OF 11-02-2009 [facility] OCCURRENCE, EMERGENCY HOME PHYSICIANS E9064 BITE OF 11-02-2009 [facility] NONVENOMOUS EMERGENCY ARTHROPOD PHYSICIANS 3670 HYPERMETROP 10-21-2009 [facility] PTON, JERMAINE 35205 OTHER 10-05-2009 [facility] 79482 PAIN IN 09-07-2009 [place] JOINT PAIN PELVIC PHYSICIANS REGION AND PSC THIGH 01214 PAIN IN 09-07-2009 [place] JOINT, PAIN LOWER LEG PHYSICIANS PSC 7242 LUMBAGO 09-07-2009 [place] PAIN PHYSICIANS PSC 7410 SPINA 08-03-2009 BHAGRATH, BIFIDA WITH KSENIA S HYDROCEPHAL US 7804 DIZZINESS 07-30-2009 [place] AND PAIN GIDDINESS PHYSICIANS PSC 88257 POLYARTICUL 07-08-2009 [place] AR JUVENILE PAIN RA CHRONIC PHYSICIANS OR PSC UNSPECIFIED 7852 UNDIAGNOSED 07-01-2009 [place] CARDIAC HEART & [facility] VASCULAR PHYSICIANS, INC 73951 PAIN IN 11-09-2008 [facility], L HOME MULTIPLE MEDICAL SITES SUPPLIES INC 2689 UNSPECIFIED 10-02-2008 [facility] VITAMIN D REGIONAL DEFICIENCY MEDICAL CENT 5852 CHRONIC 10-02-2008 [facility] KIDNEY REGIONAL DISEASE MEDICAL STAGE II CENT (MILD) 98645 HYPERTROPHY 10-02-2008 [facility] PROSTATE REGIONAL W/O UR OBST MEDICAL & OTH LUTS CENT 7910 PROTEINURIA 10-02-2008 [facility] 7231 CERVICALGIA 07-08-2008 [facility] PHYS[facility] PSC 93386 OSTEOARTHRO 2008 [facility] S UNSPEC ORTHOPAEDIC GEN/LOC S PLC PELV REGION&THIG H 3829 UNSPECIFIED 05-28-2008 [facility] 4659 ACUTE URIS 04-28-2008 [place] [facility] UNSPECIFIED HOSP SITE 7213 LUMBOSACRAL 04-02-2008 [facility] SERVICES SPONDYLOSIS 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 7244 THORACIC/TY 04-02-2008 [facility] MBOSACRAL SERVICES NEURITIS/RA PSC DICULITIS UNSPEC 8472 LUMBAR 04-02-2008 [facility] SPRAIN AND SERVICES STRAIN PSC 6828 CELLULITIS 03-03-2008 [place] AND [facility]SCESS [facility] OF OTHER HOSP SPECIFIED SITE 60766 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 48548 SPINAL 02-26-2008 [facility] STENOSIS OF SERVICES THORACIC PSC REGION 7241 PAIN IN 02-26-2008 [facility] THORACIC SERVICES SPINE PSC 57458 CLOS FX 02-26-2008 [facility] T7-T12 SERVICES LEVEL PSC W/UNSPEC SPINAL CORD INJURY 97660 SECONDARY 02-25-2008 [facility] HYPERPARATH NEPHROLOGY YROIDISM CONSULTANTS 9531 INJURY TO 02-11-2008 [facility] DORSAL SERVICES NERVE ROOT PSC 00470 OSTEOARTHRO 01-14-2008 [facility] S UNSPEC SERVICES GEN/LOC OTH PSC SPEC SITES 50870 DISPLCMT 01-14-2008 [facility] LUMBAR SERVICES INTERVERT PSC DISC W/O MYELOPATHY 06744 SPINAL STEN 01-14-2008 [facility] LUMB REG SERVICES W/O PSC NEUROGENIC CLAUDICATIO N 98148 SCOLIOSIS , 01-14-2008 [facility] IDIOPATHIC SERVICES PSC 7246 DISORDERS 12-25-2007 [facility] OF SACRUM SERVICES PSC 7245 UNSPECIFIED 12-21-2007 [facility] BACKACHE IMAGING PSC 47731 ABDOMINAL 12-21-2007 [facility] PAIN OTHER REGIONAL SPECIFIED MEDICAL SITE CENT 3970 DISEASES OF 11-18-2007 [place], TRICUSPID ZE C VALVE 95474 PRIMARY LOC 11-13-2007 [facility] REGIONAL OSTEOARTHRO MEDICAL SIS PELVIC CENT REGION&THIG H 74751 PRIMARY 11-13-2007 [facility] LOCALIZED REGIONAL OSTEOARTHRO MEDICAL SIS LOWER CENT LEG 7176 LOOSE BODY 11-13-2007 [facility] 89303 DISORDER OF 11-13-2007 [facility] BONE AND IMAGING PSC CARTILAGE UNSPECIFIED 2818 ANEMIA 09-26-2007 [facility] W/OTHER PLLC SPEC NUTRITIONAL DEFIC 4778 ALLERGIC 09-26-2007 [facility] DUE TO PLLC OTHER ALLERGEN 99032 UNSPECIFIED 09-26-2007 [facility] AND PLLC ABSCESS OF FINGER 38021 NOCTURIA 09-26-2007 [facility]ENT 92812 VOMITING 09-13-2007 [facility] PHYSICIAN INC 06242 OSTEOARTHRO 09-04-2007 [facility] S UNSPEC NEPHROLOGY WHETHER CONSULTANTS GEN/LOC UNSPEC SITE 43698 ELEVATED 09-04-2007 [facility] PROSTATE NEPHROLOGY SPECIFIC CONSULTANTS ANTIGEN 55565 UNSPECIFIED 06-24-2007 [facility] CONSTIPATI MEDICAL N CENT 62528 LOSS OF 06-24-2007 [facility] 30252 URINARY 06-24-2007 [facility]ENT V7644 SPECIAL 06-24-2007 [facility] MALIG[facility] MEDICAL NEOPLASM OF CENT PROSTATE 4785 ALLERGIC 10-31-2006 [facility] CAUSE [...] 0 RE 15 FT 41 17 17 OK EN 0 PH CH ER AR AE MA L 25 CY S 0 MG LL C SO FT GE L 00 08 11 0 30 30 ME 15 GA Ac TA 90 -3 -2 0. D 34 IN ti OK 40 1- 5- 00 [place] 30 EY ve N 52 20 20 0 RE 14 C 38 17 17 OK 50 0 PH CH 0 AR AE MG MA L CY S TA BL LL ET C SE 00 08 11 0 12 30 ME 15 GA Ac NN 90 -3 -2 00 D 34 IN ti A- 46 1- 5- .0 CA 30 EY ve LA 52 20 20 00 RE 16 X 26 17 17 OK 8. 1 PH CH 6 AR AE MG MA L CY S TA BL LL ET C 00 08 11 0 30 30 ME 15 GA Ac PI 90 -3 -2 0. D 31 IN ti RI 46 1- 0- 00 CA 53 EY ve N 28 20 20 0 RE 70 81 88 17 17 OK 9 PH CH MG AR AE MA L CH CY S EW AB LL LE C TA BL ET 00 08 11 0 30 30 ME 15 GA Ac TA 53 -3 -1 0. D 28 IN ti OK 63 1- 5- 00 CA 72 EY ve N 79 20 20 0 RE 37 D3 00 17 17 OK 1 PH CH 2, AR AE 00 MA L 0 CY S UN IT LL C SO FT GE L TA 00 08 11 0 30 30 ME 15 GA Ac B- 90 -3 -1 0. D 28 IN ti A- 40 1- 5- 00 CA 72 EY ve 53 20 20 0 RE 36 TE 08 17 17 OK 0 PH CH TA AR AE BL MA L ET CY S LL C FE 00 08 11 0 30 30 ME 15 GA Ac RR 53 -3 -1 0. D 28 IN ti OU 61 1- 5- 00 CA 72 EY ve S 00 20 20 0 RE 35 CLARK 90 17 17 OK LF 1 PH CH AT AR AE E MA L 32 CY S 5 MG LL C TA BL ET LO 00 08 11 0 30 30 ME 15 GA Ac RA 78 -3 -0 0. D 23 IN ti TA 15 1- 4- 00 CA 05 EY ve DI 07 20 20 0 RE 03 NE 70 17 17 OK 1 PH CH 10 AR AE MA L MG CY S TA LL BL C ET SE 00 08 10 0 12 30 ME 15 GA Ac NN 90 -3 -2 00 D 18 IN ti A- 46 1- 7- .0 CA 77 EY ve LA 52 20 20 00 RE 76 X 26 17 17 OK 8. 1 PH CH 6 AR AE MG MA L CY S TA BL LL ET C 00 08 10 0 30 30 ME 15 GA Ac TA 90 -3 -2 0. D 18 IN ti OK 40 1- 7- 00 CA 77 EY ve N 52 20 20 0 RE 74 C 38 17 17 OK 50 0 PH CH 0 AR AE MG MA L CY S TA BL LL ET C ST 00 08 10 0 30 30 ME 15 GA Ac OO 53 -3 -2 0. D 18 IN ti L 61 1- 7- 00 CA 77 EY ve SO 06 20 20 0 RE 75 FT 41 17 17 OK EN 0 PH CH ER AR AE MA L 25 CY S 0 MG LL C SO FT GE L 00 08 10 0 30 30 ME 15 GA Ac PI 90 -3 -2 0. D 16 IN ti RI 46 1- 3- 00 CA 98 EY ve N 28 20 20 0 RE 63 81 88 17 17 OK 9 PH CH MG AR AE MA L CH CY S EW AB LL LE C TA BL ET 00 08 10 0 30 30 ME 15 GA Ac TA 53 -3 -1 0. D 12 IN ti OK 63 1- 6- 00 CA 12 EY ve N 79 20 20 0 RE 14 D3 00 17 17 OK 1 PH CH 2, AR AE 00 MA L 0 CY S UN IT LL C SO FT GE L FE 00 08 10 0 30 30 ME 15 GA Ac RR 53 -3 -1 0. D 12 IN ti OU 61 1- 6- CA 12 EY ve S 00 20 20 0 RE 10 CLARK 90 17 17 OK LF 1 PH CH AT AR AE E MA L 32 CY S 5 MG LL C TA BL ET TA 00 08 10 0 30 30 ME 15 GA Ac B- 90 -3 -1 0. D 12 IN ti A- 40 - 6 CA 12 EY ve 53 20 20 0 RE 11 TE 08 17 17 OK 0 PH CH TA AR AE BL MA L ET CY S LL C LO 00 08 10 0 30 30 ME 15 GA Ac RA 78 -3 -0 0. D 07 IN ti TA 15 1- 6- CA 11 EY ve DI 07 20 20 0 RE 54 NE 70 17 17 OK 1 PH CH 10 AR AE MA L MG CY S TA LL BL C ET ST 00 08 09 0 30 30 ME 14 GA Ac OO 53 -3 -2 0. D 87 IN ti L 61 1- 7- CA 57 EY ve SO 06 20 20 0 RE 82 FT 41 17 17 OK EN 0 PH CH ER AR AE MA L 25 CY S 0 MG LL C SO FT GE L SE 00 08 09 0 12 30 ME 14 GA Ac NN 90 -3 -2 00 D 87 IN ti A- 46 1- 7- .0 CA 57 EY ve LA 52 20 20 00 RE 99 X 26 17 17 OK 8. 1 PH CH 6 AR AE MG MA L CY S TA BL LL ET C 00 08 09 0 13 13 ME 14 GA Ac TA 90 -3 -2 0. D 87 IN ti OK 40 1- 7- CA 57 EY ve N 52 20 20 0 RE 80 C 38 17 17 OK 50 0 PH CH 0 AR AE MG MA L CY S TA BL LL ET C 00 08 09 0 30 30 ME 14 GA Ac PI 90 -3 -2 0. D 87 IN ti RI 46 1- 7- 00 CA 57 EY ve N 28 20 20 0 RE 76 81 88 17 17 OK 9 PH CH MG AR AE MA L CH CY S EW AB LL LE C TA BL ET TA 00 08 09 0 30 30 ME 14 GA Ac B- 90 -3 -1 0. D 87 IN ti A- 40 1- 8- 00 CA 57 EY ve 53 20 20 0 RE 93 TE 08 17 17 OK 0 PH CH TA AR AE BL MA L ET CY S LL C RO 00 08 09 0 15 30 ME 14 GA Ac BA 90 -3 -1 00 D 87 IN ti FE 40 1- 8- .0 CA 57 EY ve N- 05 20 20 00 RE 97 DM 31 17 17 OK 6 PH CH SY AR AE RU MA L P CY S LL C FE 00 08 09 0 30 30 ME 14 GA Ac RR 53 -3 -1 0. D 87 IN ti OU 61 1- 8- 00 CA 57 EY ve S 00 20 20 0 RE 84 CLARK 90 17 17 OK LF 1 PH CH AT AR AE E MA L 32 CY S 5 MG LL C TA BL ET 00 08 09 0 30 30 ME 14 GA Ac TA 53 -3 -1 0. D 97 IN ti OK 63 1- 8- 00 CA 42 EY ve N 79 20 20 0 RE 76 D3 00 17 17 OK 1 PH CH 2, AR AE 00 MA L 0 CY S UN IT LL C SO FT GE L EN 00 09 09 0 13 1 ME 14 GA Ac EM 53 -1 -1 30 D 97 IN ti A 67 8- 8- .0 CA 43 EY ve 41 20 20 00 RE 40 55 17 17 OK 1 PH CH AR AE MA L CY S LL C LO 00 08 09 0 30 30 ME 14 GA Ac RA 78 -3 -0 0. D 87 IN ti TA 15 1- 8- 00 CA 57 EY ve DI 07 20 20 0 RE 87 NE 70 17 17 OK 1 PH CH 10 AR AE MA L MG CY S TA LL BL C ET 00 08 08 0 30 30 ME 14 GA Ac TA 90 -2 -2 0. D 83 IN ti OK 40 5- 5- 00 CA 93 EY ve N 52 20 20 0 RE 36 C 38 17 17 OK 50 0 PH CH 0 AR AE MG MA L CY S TA BL LL ET C 00 06 08 0 30 30 ME 14 GA Ac PI 90 -2 -2 0. D 81 IN ti RI 46 0- 1- 00 CA 39 EY ve N 28 20 20 0 RE 76 81 88 17 17 OK 9 PH CH MG AR AE MA L CH CY S EW AB LL LE C TA BL ET 00 06 08 0 30 30 ME 14 GA Ac TA 53 -2 -1 0. D 78 IN ti OK 63 0- 8- 00 CA 56 EY ve N 79 20 20 0 RE 78 D3 00 17 17 OK 1 PH CH 2, AR AE 00 MA L 0 CY S UN IT LL C SO FT GE L BI 00 06 08 0 15 30 ME 14 GA Ac SC 90 -2 -1 0. D 44 IN ti OL 45 0- 8- 00 CA 02 EY ve AX 05 20 20 0 RE 06 81 17 17 OK 10 2 PH CH AR AE MG MA L CY S CLARK PP LL OS C IT OR Y ST 00 06 08 0 30 30 ME 14 GA Ac OO 53 -2 -1 0. D 77 IN ti L 61 0- 7- 00 CA 70 EY ve SO 06 20 20 0 RE 49 FT 41 17 17 OK EN 0 PH CH ER AR AE MA L 25 CY S 0 MG LL C SO FT GE L FE 00 06 08 0 30 30 ME 14 GA Ac RR 53 -2 -1 0. D 77 IN ti OU 61 0- 7- 00 CA 70 EY ve S 00 20 20 0 RE 48 CLARK 90 17 17 OK LF 1 PH CH AT AR AE E MA L 32 CY S 5 MG LL C TA BL ET SE 00 06 08 0 12 30 ME 14 GA Ac NN 90 -2 -1 00 D 77 IN ti A- 46 0- 7- .0 CA 70 EY ve LA 52 20 20 00 RE 50 X 26 17 17 OK 8. 1 PH CH 6 AR AE MG MA L CY S TA BL LL ET C TA 00 06 08 0 30 30 ME 14 GA Ac B- 90 -2 -1 0. D 76 IN ti A- 40 0- 4- 00 CA 87 EY ve 53 20 20 0 RE 37 TE 08 17 17 OK 0 PH CH TA AR AE BL MA L ET CY S LL C LO 00 06 08 0 30 30 ME 14 GA Ac RA 78 -2 -1 0. D 74 IN ti TA 15 0- 2- 00 CA 04 EY ve DI 07 20 20 0 RE 56 NE 70 17 17 OK 1 PH CH 10 AR AE MA L MG CY S TA LL BL C ET RO 00 06 08 0 15 30 ME 14 GA Ac BA 90 -2 -0 00 D 74 IN ti FE 40 0- 9- .0 CA 72 EY ve N- 05 20 20 00 RE 35 DM 31 17 17 OK 6 PH CH SY AR AE RU MA L P CY S LL C FE 00 06 07 0 30 30 ME 14 GA Ac RR 53 -2 -1 0. D 60 IN ti OU 61 0- 8- 00 CA 24 EY ve S 00 20 20 0 RE 56 CLARK 90 17 17 OK LF 1 PH CH AT AR AE E MA L 32 CY S 5 MG LL C TA BL ET SE 00 06 07 0 12 30 ME 14 GA Ac NN 90 -2 -1 00 D 60 IN ti A- 46 0- 8- .0 CA 24 EY ve LA 52 20 20 00 RE 60 X 26 17 17 OK 8. 1 PH CH 6 AR AE MG MA L CY S TA BL LL ET C 00 06 07 0 30 30 ME 14 GA Ac PI 90 -2 -1 0. D 60 IN ti RI 46 0- 8- 00 CA 24 EY ve N 28 20 20 0 RE 55 81 88 17 17 OK 9 PH CH MG AR AE MA L CH CY S EW AB LL LE C TA BL ET TA 00 06 07 0 30 30 ME 14 GA Ac B- 90 -2 -1 0. D 60 IN ti A- 40 0- 8- 00 CA 24 EY ve 53 20 20 0 RE 59 TE 08 17 17 OK 0 PH CH TA AR AE BL MA L ET CY S LL C LO 00 06 07 0 30 30 ME 14 GA Ac RA 78 -2 -1 0. D 60 IN ti TA 15 0- 8- 00 CA 24 EY ve DI 07 20 20 0 RE 58 NE 70 17 17 OK 1 PH CH 10 AR AE MA L MG CY S TA LL BL C ET ST 00 06 07 0 30 30 ME 14 GA Ac OO 53 -2 -1 0. D 60 IN ti L 61 0- 8- 00 CA 24 EY ve SO 06 20 20 0 RE 57 FT 41 17 17 OK EN 0 PH CH ER AR AE MA L 25 CY S 0 MG LL C SO FT GE L 00 06 06 0 30 30 ME 14 GA Ac TA 53 -2 -2 0. D 44 IN ti OK 63 0- 0- 00 CA 02 EY ve N 79 20 20 0 RE 04 D3 00 17 17 OK 1 PH CH 2, AR AE 00 MA L 0 CY S UN IT LL C SO FT GE L RO 00 06 06 0 15 30 ME 14 GA Ac BA 90 -2 -2 00 D 44 IN ti FE 40 0- 0- .0 CA 02 EY ve N- 05 20 20 00 RE 15 DM 31 17 17 OK 6 PH CH SY AR AE RU MA L P CY S LL C 00 06 06 0 30 30 ME 14 GA Ac PI 90 -2 -2 0. D 44 IN ti RI 46 0- 0- 00 CA 01 EY ve N 28 20 20 0 RE 76 81 88 17 17 OK 9 PH CH MG AR AE MA L CH CY S EW AB LL LE C TA BL ET FE 00 06 06 0 30 30 ME 14 GA Ac RR 53 -2 -2 0. D 44 IN ti OU 61 0- 0- 00 CA 01 EY ve S 00 20 20 0 RE 81 CLARK 90 17 17 OK LF 1 PH CH AT AR AE E MA L 32 CY S 5 MG LL C TA BL ET SE 00 06 06 0 12 30 ME 14 GA Ac NN 90 -2 -2 00 D 44 IN ti A- 46 0- 0- .0 CA 02 EY ve LA 52 20 20 00 RE 03 X 26 17 17 OK 8. 1 PH CH 6 AR AE MG MA L CY S TA BL LL ET C MA 00 06 06 0 60 30 ME 14 GA Ac PA 90 -2 -2 0. D 44 IN ti P 41 0- 0- 00 CA 02 EY ve 50 98 20 20 0 RE 05 0 86 17 17 OK MG 1 PH CH AR AE TA MA L BL CY S ET LL C ST 00 06 06 0 30 30 ME 14 GA Ac OO 53 -2 -2 0. D 44 IN ti L 61 0- 0- 00 CA 01 EY ve SO 06 20 20 0 RE 83 FT 41 17 17 OK EN 0 PH CH ER AR AE MA L 25 CY S 0 MG LL C SO FT GE L LO 00 06 06 0 30 30 ME 14 GA Ac RA 78 -2 -2 0. D 44 IN ti TA 15 0- 0- 00 CA 01 EY ve DI 07 20 20 0 RE 85 NE 70 17 17 OK 1 PH CH 10 AR AE MA L MG CY S TA LL BL C ET TA 00 06 06 0 30 30 ME 14 GA Ac B- 90 -2 -2 0. D 44 IN ti A- 40 0- 0- 00 CA 01 EY ve 53 20 20 0 RE 86 TE 08 17 17 OK 0 PH CH TA AR AE BL MA L ET CY S LL C BI 00 05 06 0 12 12 ME 14 GA Ac SC 90 -2 -1 0. D 26 IN ti OL 45 6- 2- 00 CA 89 EY ve AX 05 20 20 0 RE 53 81 17 17 OK 10 2 PH CH AR AE MG MA L CY S CLARK PP LL OS C IT OR Y LO 00 03 05 0 30 30 ME 14 GA Ac RA 78 -1 -1 0. D 21 IN ti TA 15 9- 9- 00 CA 63 EY ve DI 07 20 20 0 RE 53 NE 70 17 17 OK 1 PH CH 10 AR AE MA L MG CY S TA LL BL C ET SE 00 03 05 0 12 30 ME 14 GA Ac NN 90 -1 -1 00 D 19 IN ti A- 46 9- 6- .0 CA 54 EY ve LA 52 20 20 00 RE 69 X 26 17 17 OK 8. 1 PH CH 6 AR AE MG MA L CY S TA BL LL ET C 00 03 05 0 30 30 ME 14 GA Ac TA 90 -1 -1 0. D 19 IN ti OK 45 9- 5- 00 CA 90 EY ve N 04 20 20 0 RE 88 AN 26 17 17 OK D 0 PH CH OK AR AE NE MA L RA CY S LS LL TA C BL ET 00 03 05 0 30 30 ME 14 GA Ac PI 53 -1 -1 0. D 18 IN ti RI 61 9- 2- 00 CA 24 EY ve N 00 20 20 0 RE 73 EC 44 17 17 OK 1 PH CH 81 AR AE MA L MG CY S TA LL BL C ET ST 00 02 05 0 30 30 ME 14 GA Ac OO 53 -2 -1 0. D 18 IN ti L 61 3- 2- 00 CA 24 EY ve SO 06 20 20 0 RE 76 FT 41 17 17 OK EN 0 PH CH ER AR AE MA L 25 CY S 0 MG LL C SO FT GE L 00 03 05 0 30 30 ME 14 GA Ac TA 53 -1 -1 0. D 18 IN ti OK 63 9- 2- 00 CA 24 EY ve N 79 20 20 0 RE 82 D3 00 17 17 OK 1 PH CH 2, AR AE 00 MA L 0 CY S UN IT LL C SO FT GE L BI 00 05 05 0 15 15 ME 14 GA Ac SC 90 -1 -1 0. D 18 IN ti OL 45 0- 0- 00 CA 07 EY ve AX 05 20 20 0 RE 34 81 17 17 OK 10 2 PH CH AR AE MG MA L CY S CLARK PP LL OS C IT OR Y FE 00 03 05 0 30 30 ME 14 GA Ac RR 53 -1 -0 0. D 14 IN ti OU 61 9- 5- 00 CA 67 EY ve S 00 20 20 0 RE 52 CLARK 90 17 17 OK LF 1 PH CH AT AR AE E MA L 32 CY S 5 MG LL C TA BL ET RO 00 04 05 0 15 30 ME 14 GA Ac BA 90 -0 -0 00 D 10 IN ti FE 40 7- 5- .0 CA 68 EY ve N- 05 20 20 00 RE 31 DM 31 17 17 OK 6 PH CH SY AR AE RU MA L P CY S LL C LO 45 03 04 0 30 30 ME 14 GA Ac RA 80 -1 -2 0. D 06 IN ti TA 20 9- 0- 00 CA 95 EY ve DI 65 20 20 0 RE 55 NE 08 17 17 OK 7 PH CH 10 AR AE MA L MG CY S TA LL BL C ET SE 00 03 04 0 12 30 ME 14 GA Ac NN 90 -1 -1 00 D 05 IN ti A- 46 9- 7- .0 CA 07 EY ve LA 52 20 20 00 RE 52 X 26 17 17 OK 8. 1 PH CH 6 AR AE MG MA L CY S TA BL LL ET C ST 00 02 04 0 30 30 ME 14 GA Ac OO 53 -2 -1 0. D 03 IN ti L 61 3- 3- 00 CA 60 EY ve SO 06 20 20 0 RE 86 FT 41 17 17 OK EN 0 PH CH ER AR AE MA L 25 CY S 0 MG LL C SO FT GE L 00 03 04 0 30 30 ME 14 GA Ac PI 53 -1 -1 0. D 03 IN ti RI 61 9- 3- 00 CA 60 EY ve N 00 20 20 0 RE 85 EC 44 17 17 OK 1 PH CH 81 AR AE MA L MG CY S TA LL BL C ET 00 03 04 0 30 30 ME 14 GA Ac TA 53 -1 -1 0. D 03 IN ti OK 63 9- 3- 00 CA 60 EY ve N 79 20 20 0 RE 88 D3 00 17 17 OK 1 PH CH 2, AR AE 00 MA L 0 CY S UN IT LL C SO FT GE L 00 03 04 0 30 30 ME 14 GA Ac TA 90 -1 -0 0. D 00 IN ti OK 45 9- 7- 00 CA 93 EY ve N 04 20 20 0 RE 00 AN 26 17 17 OK D 0 PH CH OK AR AE NE MA L RA CY S LS LL TA C BL ET FE 00 03 04 0 30 30 ME 14 GA Ac RR 53 -1 -0 0. D 00 IN ti OU 61 9- 7- 00 CA 92 EY ve S 00 20 20 0 RE 98 CLARK 90 17 17 OK LF 1 PH CH AT AR AE E MA L 32 CY S 5 MG LL C TA BL ET RO 00 04 04 0 15 30 ME 14 GA Ac BA 90 -0 -0 00 D 02 IN ti FE 40 7- 7- .0 CA 15 EY ve N- 05 20 20 00 RE 12 DM 31 17 17 OK 6 PH CH SY AR AE RU MA L P CY S LL C SP 00 02 03 0 30 15 ME 13 GA Ac IR 60 -0 -3 0. D 96 IN ti ON 35 2- 0- 00 CA 66 EY ve OL 76 20 20 0 RE 65 AC 32 17 17 OK TO 1 PH CH NE AR AE MA L 25 CY S MG LL C TA BL ET LO 00 03 03 0 30 30 ME 13 GA Ac RA 78 -1 -2 0. D 92 IN ti TA 15 9- 2- 00 CA 57 EY ve DI 07 20 20 0 RE 96 NE 70 17 17 OK 1 PH CH 10 AR AE MA L MG CY S TA LL BL C ET SE 00 03 03 0 12 30 ME 13 GA Ac NN 90 -1 -2 00 D 92 IN ti A- 46 9- 0- .0 CA 14 EY ve LA 52 20 20 00 RE 20 X 26 17 17 OK 8. 1 PH CH 6 AR AE MG MA L CY S TA BL LL ET C ST 00 02 03 0 30 30 ME 13 GA Ac OO 53 -2 -1 0. D 89 IN ti L 61 3- 5- 00 CA 95 EY ve SO 06 20 20 0 RE 95 FT 41 17 17 OK EN 0 PH CH ER AR AE MA L 25 CY S 0 MG LL C SO FT GE L 00 07 03 0 30 30 ME 13 GA Ac TA 53 -2 -1 0. D 89 IN ti OK 63 5- 5- 00 CA 20 EY ve N 79 20 20 0 RE 80 D3 00 16 17 OK 1 PH CH 2, AR AE 00 MA L 0 CY S UN IT LL C SO FT GE L 00 09 03 0 30 30 ME 13 GA Ac PI 53 -1 -1 0. D 89 IN ti RI 61 9- 5- 00 CA 20 EY ve N 00 20 20 0 RE 76 EC 44 16 17 OK 1 PH CH 81 AR AE MA L MG CY S TA LL BL C ET FE 00 09 03 0 30 30 ME 13 GA Ac RR 53 -1 -1 0. D 86 IN ti OU 61 9- 0- 00 CA 96 EY ve S 00 20 20 0 RE 49 CLARK 90 16 17 OK LF 1 PH CH AT AR AE E MA L 32 CY S 5 MG LL C TA BL ET 00 06 03 0 30 30 ME 13 GA Ac TA 90 -1 -1 0. D 86 IN ti OK 45 0- 0- 00 CA 96 EY ve N 04 20 20 0 RE 51 AN 26 16 17 OK D 0 PH CH OK AR AE NE MA L RA CY S LS LL TA C BL ET LO 00 09 02 0 30 30 ME 13 GA Ac RA 78 -0 -2 0. D 77 IN ti TA 15 1- 1- 00 CA 64 EY ve DI 07 20 20 0 RE 76 NE 70 16 17 OK 1 PH CH 10 AR AE MA L MG CY S TA LL BL C ET 00 09 02 0 30 30 ME 13 GA Ac PI 53 -1 -1 0. D 74 IN ti RI 61 9- 4- 00 CA 04 EY ve N 00 20 20 0 RE 51 EC 44 16 17 OK 1 PH CH 81 AR AE MA L MG CY S TA LL BL C ET 00 07 02 0 30 30 ME 13 GA Ac TA 53 -2 -1 0. D 74 IN ti OK 63 5- 4- 00 CA 04 EY ve N 79 20 20 0 RE 52 D3 00 16 17 OK 1 PH CH 2, AR AE 00 MA L 0 CY S UN IT LL C SO FT GE L ST 00 02 02 0 30 30 ME 13 GA Ac OO 53 -2 -1 0. D 73 IN ti L 61 3- 3- 00 CA 36 EY ve SO 06 20 20 0 RE 84 FT 41 16 17 OK EN 0 PH CH ER AR AE MA L 25 CY S 0 MG LL C SO FT GE L 00 06 02 0 30 30 ME 13 GA Ac TA 90 -1 -1 0. D 72 IN ti OK 45 0- 0- 00 CA 74 EY ve N 04 20 20 0 RE 29 AN 26 16 17 OK D 0 PH CH OK AR AE NE MA L RA CY S LS LL TA C BL ET FE 00 09 02 0 30 30 ME 13 GA Ac RR 90 -1 -0 0. D 72 IN ti OU 47 9- 9- 00 CA 08 EY ve S 59 20 20 0 RE 92 CLARK 18 16 17 OK LF 0 PH CH AT AR AE E MA L 32 CY S 5 MG LL C TA BL ET SE 00 09 02 0 12 30 ME 13 GA Ac NN 90 -1 -0 00 D 71 IN ti A 46 9- 7- .0 CA 32 EY ve 8. 43 20 20 00 RE 82 6 48 16 17 OK MG 0 PH CH AR AE TA MA L BL CY S ET LL C BI 00 09 02 0 15 15 ME 13 GA Ac SC 90 -1 -0 0. D 70 IN ti OL 45 9- 6- 00 CA 96 EY ve AX 05 20 20 0 RE 91 81 16 17 OK 10 2 PH CH AR AE MG MA L CY S CLARK PP LL OS C IT OR Y LO 00 09 01 0 30 30 ME 13 GA Ac RA 78 -0 -2 0. D 63 IN ti TA 15 1- 3- 00 CA 50 EY ve DI 07 20 20 0 RE 87 NE 70 16 17 OK 1 PH CH 10 AR AE MA L MG CY S TA LL BL C ET 00 09 01 0 30 30 ME 13 GA Ac PI 53 -1 -1 0. D 59 IN ti RI 61 9- 6- 00 CA 87 EY ve N 00 20 20 0 RE 11 EC 44 16 17 OK 1 PH CH 81 AR AE MA L MG CY S TA LL BL C ET 00 07 01 0 30 30 ME 13 GA Ac TA 53 -2 -1 0. D 59 IN ti OK 63 5- 6- 00 CA 87 EY ve N 79 20 20 0 RE 12 D3 00 16 17 OK 1 PH CH 2, AR AE 00 MA L 0 CY S UN IT LL C SO FT GE L ST 00 02 01 0 30 30 ME 13 GA Ac OO 53 -2 -1 0. D 59 IN ti L 61 3- 4- 00 CA 46 EY ve SO 06 20 20 0 RE 94 FT 41 16 17 OK EN 0 PH CH ER AR AE MA L 25 CY S 0 MG LL C SO FT GE L 00 06 01 0 30 30 ME 13 GA Ac TA 90 -1 -1 0. D 59 IN ti OK 45 0- 3- 00 CA 03 EY ve N 04 20 20 0 RE 67 AN 26 16 17 OK D 0 PH CH OK AR AE NE MA L RA CY S LS LL TA C BL ET SE 00 09 01 0 12 30 ME 13 GA Ac NN 90 -1 -1 00 D 58 IN ti A- 46 9- 2- .0 CA 61 EY ve LA 52 20 20 00 RE 97 X 26 16 17 OK 8. 1 PH CH 6 AR AE MG MA L CY S TA BL LL ET C FE 00 09 01 0 30 30 ME 13 GA Ac RR 53 -1 -1 0. D 57 IN ti OU 61 9- 1- 00 CA 54 EY ve S 00 20 20 0 RE 83 CLARK 90 16 17 OK LF 1 PH CH AT AR AE E MA L 32 CY S 5 MG LL C TA BL ET 00 12 01 0 10 1 ME 13 GA Ac TA 90 -1 -1 .0 D 58 IN ti OK 40 5- 0- 00 CA 30 EY ve N 52 20 20 RE 23 C 38 16 17 OK 50 0 PH CH 0 AR AE MG MA L CY S TA BL LL ET C ZI 00 12 12 0 10 1 ME 13 GA Ac NC 90 -1 -3 .0 D 53 IN ti 43 7- 0- 00 CA 28 EY ve GL 19 20 20 RE 54 UC 16 16 16 OK ON 0 PH CH AT AR AE E MA L 50 CY S MG LL C TA BL ET LO 00 09 12 0 30 30 ME 13 GA Ac RA 78 -0 -2 0. D 50 IN ti TA 15 1- 6- 00 CA 21 EY ve DI 07 20 20 0 RE 30 NE 70 16 16 OK 1 PH CH 10 AR AE MA L MG CY S TA LL BL C ET 00 07 12 0 30 30 ME 13 GA Ac TA 53 -2 -1 0. D 45 IN ti OK 63 5- 7- 00 CA 89 EY ve N 79 20 20 0 RE 62 D3 00 16 16 OK 1 PH CH 2, AR AE 00 MA L 0 CY S UN IT LL C SO FT GE L ZI 00 12 12 0 14 14 ME 13 GA Ac NC 90 -1 -1 0. D 46 IN ti 43 7- 7- 00 CA 89 EY ve GL 19 20 20 0 RE 55 UC 16 16 16 OK ON 0 PH CH AT AR AE E MA L 50 CY S MG LL C TA BL ET 00 09 12 0 30 30 ME 13 GA Ac PI 53 -1 -1 0. D 45 IN ti RI 61 9- 7- 00 CA 89 EY ve N 00 20 20 0 RE 61 EC 44 16 16 OK 1 PH CH 81 AR AE MA L MG CY S TA LL BL C ET ST 00 02 12 0 30 30 ME 13 GA Ac OO 53 -2 -1 0. D 45 IN ti L 61 3- 6- 00 CA 28 EY ve SO 06 20 20 0 RE 42 FT 41 16 16 OK EN 0 PH CH ER AR AE MA L 25 CY S 0 MG LL C SO FT GE L 00 12 12 0 30 30 ME 13 GA Ac TA 90 -1 -1 0. D 45 IN ti OK 40 5- 5- 00 CA 69 EY ve N 52 20 20 0 RE 93 C 38 16 16 OK 50 0 PH CH 0 AR AE MG MA L CY S TA BL LL ET C SE 00 09 12 0 12 30 ME 13 GA Ac NN 90 -1 -1 00 D 46 IN ti A- 46 9- 5- .0 CA 00 EY ve LA 52 20 20 00 RE 68 X 26 16 16 OK 8. 1 PH CH 6 AR AE MG MA L CY S TA BL LL ET C 00 06 12 0 30 30 ME 13 GA Ac TA 90 -1 -1 0. D 44 IN ti OK 45 0- 4- 00 CA 20 EY ve N 04 20 20 0 RE 08 AN 26 16 16 OK D 0 PH CH OK AR AE NE MA L RA CY S LS LL TA C BL ET FE 00 09 12 0 30 30 ME 13 GA Ac RR 53 -1 -1 0. D 44 IN ti OU 61 9- 4- 00 CA 97 EY ve S 00 20 20 0 RE 74 CLARK 90 16 16 OK LF 1 PH CH AT AR AE E MA L 32 CY S 5 MG LL C TA BL ET LO 00 09 11 0 30 30 ME 13 GA Ac RA 78 -0 -2 0. D 35 IN ti TA 15 1- 8- 00 CA 75 EY ve DI 07 20 20 0 RE 27 NE 70 16 16 OK 1 PH CH 10 AR AE MA L MG CY S TA LL BL C ET BA 00 11 11 0 28 7 ME 13 GA Ac CI 16 -1 -2 3. D 36 IN ti TR 80 7- 6- 50 CA 23 EY ve AC 02 20 20 0 RE 22 IN 13 16 16 OK -P 1 PH CH OL AR AE YM MA L YX CY S IN LL OI C NT ME NT SE 00 09 11 0 12 30 ME 13 GA Ac NN 90 -1 -2 00 D 32 IN ti A- 46 9- 1- .0 CA 02 EY ve LA 52 20 20 00 RE 30 X 26 16 16 OK 8. 1 PH CH 6 AR AE MG MA L CY S TA BL LL ET C 00 09 11 0 30 30 ME 13 GA Ac PI 53 -1 -1 0. D 30 IN ti RI 61 9- 8- 00 CA 83 EY ve N 00 20 20 0 RE 45 EC 44 16 16 OK 1 PH CH 81 AR AE MA L MG CY S TA LL BL C ET FE 00 09 11 0 30 30 ME 13 GA Ac RR 53 -1 -1 0. D 30 IN ti OU 61 9- 8- 00 CA 83 EY ve S 00 20 20 0 RE 46 CLARK 90 16 16 OK LF 1 PH CH AT AR AE E MA L 32 CY S 5 MG LL C TA BL ET 00 07 11 0 30 30 ME 13 GA Ac TA 53 -2 -1 0. D 30 IN ti OK 63 5- 8- 00 CA 83 EY ve N 79 20 20 0 RE 49 D3 00 16 16 OK 1 PH CH 2, AR AE 00 MA L 0 CY S UN IT LL C SO FT GE L ST 00 02 11 0 30 30 ME 13 GA Ac OO 53 -2 -1 0. D 29 IN ti L 61 3- 7- 00 CA 93 EY ve SO 06 20 20 0 RE 73 FT 41 16 16 OK EN 0 PH CH ER AR AE MA L 25 CY S 0 MG LL C SO FT GE L BA 00 11 11 0 28 14 ME 13 GA Ac CI 16 -1 -1 3. D 31 IN ti TR 80 7- 7- 50 CA 32 EY ve AC 02 20 20 0 RE 58 IN 13 16 16 OK -P 1 PH CH OL AR AE YM MA L YX CY S IN LL OI C NT ME NT 00 06 11 0 30 30 ME 13 GA Ac TA 90 -1 -1 0. D 27 IN ti OK 45 0- 4- 00 CA 96 EY ve N 04 20 20 0 RE 19 AN 26 16 16 OK D 0 PH CH OK AR AE NE MA L RA CY S LS LL TA C BL ET LO 00 09 10 0 30 30 ME 13 GA Ac RA 78 -0 -2 0. D 19 IN ti TA 15 1- 8- 00 CA 67 EY ve DI 07 20 20 0 RE 75 NE 70 16 16 OK 1 PH CH 10 AR AE MA L MG CY S TA LL BL C ET SE 00 09 10 0 12 30 ME 13 GA Ac NN 90 -1 -2 00 D 16 IN ti A- 46 9- 2- .0 CA 73 EY ve LA 52 20 20 00 RE 99 X 26 16 16 OK 8. 1 PH CH 6 AR AE MG MA L CY S TA BL LL ET C 00 07 10 0 30 30 ME 13 GA Ac TA 53 -2 -2 0. D 16 IN ti OK 63 5- 1- 00 CA 09 EY ve N 79 20 20 0 RE 46 D3 00 16 16 OK 1 PH CH 2, AR AE 00 MA L 0 CY S UN IT LL C SO FT GE L 00 09 10 0 30 30 ME 13 GA Ac PI 53 -1 -2 0. D 15 IN ti RI 61 9- 0- 00 CA 55 EY ve N 00 20 20 0 RE 55 EC 44 16 16 OK 1 PH CH 81 AR AE MA L MG CY S TA LL BL C ET FE 00 09 10 0 30 30 ME 13 GA Ac RR 53 -1 -2 0. D 15 IN ti OU 61 9- 0- 00 CA 55 EY ve S 00 20 20 0 RE 56 CLARK 90 16 16 OK LF 1 PH CH AT AR AE E MA L 32 CY S 5 MG LL C TA BL ET ST 00 02 10 0 30 30 ME 13 GA Ac OO 53 -2 -1 0. D 14 IN ti L 61 3- 9- 00 CA 82 EY ve SO 06 20 20 0 RE 28 FT 41 16 16 OK EN 0 PH CH ER AR AE MA L 25 CY S 0 MG LL C SO FT GE L 00 11 10 0 30 30 ME 13 GA Ac TA 90 -0 -1 0. D 13 IN ti OK 45 5- 5- 00 CA 15 EY ve N 04 20 20 0 RE 57 AN 26 15 16 OK D 0 PH CH OK AR AE NE MA L RA CY S LS LL TA C BL ET LO 00 09 09 0 30 30 ME 13 GA Ac RA 78 -0 -2 0. D 03 IN ti TA 15 1- 9- 00 CA 49 EY ve DI 07 20 20 0 RE 14 NE 70 16 16 OK 1 PH CH 10 AR AE MA L MG CY S TA LL BL C ET SE 00 09 09 0 12 30 ME 13 GA Ac NN 90 -1 -2 00 D 00 IN ti A- 46 9- 3- .0 CA 42 EY ve LA 52 20 20 00 RE 47 X 26 16 16 OK 8. 1 PH CH 6 AR AE MG MA L CY S TA BL LL ET C 00 09 09 0 30 30 ME 13 GA Ac PI 53 -1 -2 0. D 00 IN ti RI 61 9- 2- 00 CA 79 EY ve N 00 20 20 0 RE 87 EC 44 16 16 OK 1 PH CH 81 AR AE MA L MG CY S TA LL BL C ET FE 00 09 09 0 30 30 ME 13 GA Ac RR 53 -1 -2 0. D 00 IN ti OU 61 9- 2- 00 CA 79 EY ve S 00 20 20 0 RE 89 CLARK 90 16 16 OK LF 1 PH CH AT AR AE E MA L 32 CY S 5 MG LL C TA BL ET 00 07 09 0 30 30 ME 12 GA Ac TA 53 -2 -2 0. D 99 IN ti OK 63 5- 1- 00 CA 05 EY ve N 79 20 20 0 RE 58 D3 00 16 16 OK 1 PH CH 2, AR AE 00 MA L 0 CY S UN IT LL C SO FT GE L ST 00 02 09 0 30 30 ME 12 GA Ac OO 53 -2 -1 0. D 97 IN ti L 61 3- 9- 00 CA 85 EY ve SO 06 20 20 0 RE 93 FT 41 16 16 OK EN 0 PH CH ER AR AE MA L 25 CY S 0 MG LL C SO FT GE L 00 11 09 0 30 30 ME 12 GA Ac TA 90 -0 -1 0. D 96 IN ti OK 45 5- 6- 00 CA 80 EY ve N 04 20 20 0 RE 50 AN 26 15 16 OK D 0 PH CH OK AR AE NE MA L RA CY S LS LL TA C BL ET LO 00 09 09 0 30 30 ME 12 GA Ac RA 78 -0 -0 0. D 90 IN ti TA 15 1- 1- 00 CA 04 EY ve DI 07 20 20 0 RE 71 NE 70 16 16 OK 1 PH CH 10 AR AE MA L MG CY S TA LL BL C ET SE 00 10 08 0 12 30 ME 12 GA Ac NN 90 -2 -2 00 D 84 IN ti A- 46 9- 5- .0 CA 88 EY ve LA 52 20 20 00 RE 51 X 26 15 16 OK 8. 1 PH CH 6 AR AE MG MA L CY S TA BL LL ET C 00 07 08 0 30 30 ME 12 GA Ac TA 53 -2 -2 0. D 82 IN ti OK 63 5- 2- 00 CA 65 EY ve N 79 20 20 0 RE 09 D3 00 16 16 OK 1 PH CH 2, AR AE 00 MA L 0 CY S UN IT LL C SO FT GE L ST 00 02 08 0 30 30 ME 12 GA Ac OO 53 -2 -2 0. D 83 IN ti L 61 3- 2- 00 CA 20 EY ve SO 06 20 20 0 RE 28 FT 41 16 16 OK EN 0 PH CH ER AR AE MA L 25 CY S 0 MG LL C SO FT GE L FE 00 10 08 0 30 30 ME 12 GA Ac RR 53 -1 -2 0. D 81 IN ti OU 61 0- 0- 00 CA 18 EY ve S 00 20 20 0 RE 40 CLARK 90 15 16 OK LF 1 PH CH AT AR AE E MA L 32 CY S 5 MG LL C TA BL ET 00 11 08 0 30 30 ME 12 GA Ac TA 90 -0 -1 0. D 79 IN ti OK 45 5- 7- 00 CA 28 EY ve N 04 20 20 0 RE 11 AN 26 15 16 OK D 0 PH CH OK AR AE NE MA L RA CY S LS LL TA C BL ET 00 10 08 0 30 30 ME 12 GA Ac PI 60 -0 -1 0. D 77 IN ti RI 30 9- 5- 00 CA 97 EY ve N 02 20 20 0 RE 73 EC 63 15 16 OK 2 PH CH 81 AR AE MA L MG CY S TA LL BL C ET MA 00 10 08 0 11 14 ME 12 GA Ac PA 90 -1 -0 20 D 74 IN ti P 41 0- 5- .0 CA 68 EY ve 50 98 20 20 00 RE 78 0 86 15 16 OK MG 1 PH CH AR AE TA MA L BL CY S ET LL C 00 07 07 0 30 30 ME 12 GA Ac TA 90 -2 -2 0. D 70 IN ti OK 40 8- 8- 00 CA 32 EY ve N 52 20 20 0 RE 12 C 38 16 16 OK 50 0 PH CH 0 AR AE MG MA L CY S TA BL LL ET C SE 00 10 07 0 12 30 ME 12 GA Ac NN 90 -2 -2 00 D 68 IN ti A- 46 9- 6- .0 CA 52 EY ve LA 52 20 20 00 RE 91 X 26 15 16 OK 8. 1 PH CH 6 AR AE MG MA L CY S TA BL LL ET C 00 07 07 0 30 30 ME 12 GA Ac TA 53 -2 -2 0. D 69 IN ti OK 63 5- 5- 00 CA 13 EY ve N 79 20 20 0 RE 18 D3 00 16 16 OK 1 PH CH 2, AR AE 00 MA L 0 CY S UN IT LL C SO FT GE L FE 00 10 07 0 30 30 ME 12 GA Ac RO 90 -1 -2 0. D 67 IN ti CLARK 47 0- 2- 00 CA 26 EY ve L 59 20 20 0 RE 65 32 08 15 16 OK 5 2 PH CH MG AR AE MA L TA CY S BL ET LL C BI 00 03 07 0 15 15 ME 12 GA Ac SC 90 -1 -1 0. D 66 IN ti OL 45 0- 8- 00 CA 34 EY ve AX 05 20 20 0 RE 86 86 16 16 OK 10 0 PH CH AR AE MG MA L CY S CLARK PP LL OS C IT OR Y 00 11 07 0 30 30 ME 12 GA Ac TA 90 -0 -1 0. D 65 IN ti OK 45 5- 8- 00 CA 97 EY ve N 04 20 20 0 RE 60 AN 26 15 16 OK D 0 PH CH OK AR AE NE MA L RA CY S LS LL TA C BL ET 00 10 07 0 30 30 ME 12 GA Ac PI 60 -0 -1 0. D 65 IN ti RI 30 9- 6- 00 CA 73 EY ve N 02 20 20 0 RE 27 EC 63 15 16 OK 2 PH CH 81 AR AE MA L MG CY S TA LL BL C ET ST 00 02 07 0 30 30 ME 12 GA Ac OO 53 -2 -1 0. D 63 IN ti L 61 3- 1- 00 CA 34 EY ve SO 06 20 20 0 RE 73 FT 41 16 16 OK EN 0 PH CH ER AR AE MA L 25 CY S 0 MG LL C SO FT GE L SE 00 10 06 0 12 30 ME 12 GA Ac NN 90 -2 -2 00 D 58 IN ti A- 46 9- 7- .0 CA 07 EY ve LA 52 20 20 00 RE 66 X 26 15 16 OK 8. 1 PH CH 6 AR AE MG MA L CY S TA BL LL ET C FE 00 10 06 0 30 30 ME 12 GA Ac RO 90 -1 -2 0. D 56 IN ti CLARK 47 0- 2- 00 CA 63 EY ve L 59 20 20 0 RE 47 32 08 15 16 OK 5 2 PH CH MG AR AE MA L TA CY S BL ET LL C 00 11 06 0 30 30 ME 12 GA Ac TA 90 -0 -1 0. D 55 IN ti OK 45 5- 8- 00 CA 21 EY ve N 04 20 20 0 RE 00 AN 26 15 16 OK D 0 PH CH OK AR AE NE MA L RA CY S LS LL TA C BL ET 00 10 06 0 30 30 ME 12 GA Ac PI 60 -0 -1 0. D 54 IN ti RI 30 9- 7- 00 CA 90 EY ve N 02 20 20 0 RE 56 EC 63 15 16 OK 2 PH CH 81 AR AE MA L MG CY S TA LL BL C ET BI 00 03 06 0 15 15 ME 12 GA Ac SC 90 -1 -1 0. D 55 IN ti OL 45 0- 7- 00 CA 42 EY ve AX 05 20 20 0 RE 04 86 16 16 OK 10 0 PH CH AR AE MG MA L CY S CLARK PP LL OS C IT OR Y ST 00 02 06 0 30 30 ME 12 GA Ac OO 53 -2 -1 0. D 53 IN ti L 61 3- 3- 00 CA 62 EY ve SO 06 20 20 0 RE 57 FT 41 16 16 OK EN 0 PH CH ER AR AE MA L 25 CY S 0 MG LL C SO FT GE L SE 00 10 05 0 12 30 ME 12 GA Ac NN 90 -2 -2 00 D 48 IN ti A 45 9- 8- .0 CA 35 EY ve 8. 16 20 20 00 RE 71 6 56 15 16 OK MG 1 PH CH AR AE TA MA L BL CY S ET LL C FE 00 10 05 0 30 30 ME 12 GA Ac RO 90 -1 -2 0. D 45 IN ti CLARK 47 0- 3- 00 CA 78 EY ve L 59 20 20 0 RE 37 32 08 15 16 OK 5 2 PH CH MG AR AE MA L TA CY S BL ET LL C BI 00 03 05 0 15 15 ME 12 GA Ac SC 90 -1 -2 0. D 46 IN ti OL 45 0- 1- 00 CA 12 EY ve AX 05 20 20 0 RE 33 86 16 16 OK 10 0 PH CH AR AE MG MA L CY S CLARK PP LL OS C IT OR Y 00 11 05 0 30 30 ME 12 GA Ac TA 90 -0 -2 0. D 45 IN ti OK 45 5- 0- 00 CA 09 EY ve N 04 20 20 0 RE 35 AN 26 15 16 OK D 0 PH CH OK AR AE NE MA L RA CY S LS LL TA C BL ET 00 10 05 0 30 30 ME 12 GA Ac PI 60 -0 -1 0. D 44 IN ti RI 30 9- 8- 00 CA 30 EY ve N 02 20 20 0 RE 82 EC 63 15 16 OK 2 PH CH 81 AR AE MA L MG CY S TA LL BL C ET TR 45 05 05 0 85 15 ME 12 GA Ac OL 80 -1 -1 0. D 44 IN ti AM 20 7- 7- 00 CA 21 EY ve IN 35 20 20 0 RE 63 E 65 16 16 OK SA 3 PH CH LI AR AE CY MA L LA CY S TE LL 10 C % CR EA M ST 00 02 05 0 30 30 ME 12 GA Ac OO 53 -2 -1 0. D 42 IN ti L 61 3- 3- 00 CA 78 EY ve SO 06 20 20 0 RE 12 FT 41 16 16 OK EN 0 PH CH ER AR AE MA L 25 CY S 0 MG LL C SO FT GE L SE 00 10 04 0 12 30 ME 12 GA Ac NN 90 -2 -2 00 D 38 IN ti A 45 9- 9- .0 CA 00 EY ve 8. 16 20 20 00 RE 41 6 56 15 16 OK MG 1 PH CH AR AE TA MA L BL CY S ET LL C FE 00 10 04 0 30 30 ME 12 GA Ac RO 90 -1 -2 0. D 36 IN ti CLARK 47 0- 5- 00 CA 33 EY ve L 59 20 20 0 RE 19 32 08 15 16 OK 5 2 PH CH MG AR AE MA L TA CY S BL ET LL C 00 11 04 0 30 30 ME 12 GA Ac TA 90 -0 -2 0. D 34 IN ti OK 45 5- 1- 00 CA 77 EY ve N 04 20 20 0 RE 79 AN 26 15 16 OK D 0 PH CH OK AR AE NE MA L RA CY S LS LL TA C BL ET 00 10 04 0 30 30 ME 12 GA Ac PI 60 -0 -1 0. D 33 IN ti RI 30 9- 8- 00 CA 77 EY ve N 02 20 20 0 RE 74 EC 63 15 16 OK 2 PH CH 81 AR AE MA L MG CY S TA LL BL C ET ST 00 02 04 0 30 30 ME 12 GA Ac OO 53 -2 -1 0. D 33 IN ti L 61 3- 5- 00 CA 32 EY ve SO 06 20 20 0 RE 30 FT 41 16 16 OK EN 0 PH CH ER AR AE MA L 25 CY S 0 MG LL C SO FT GE L SE 00 10 03 0 12 30 ME 12 GA Ac NN 90 -2 -3 00 D 27 IN ti A 45 9- 0- .0 CA 50 EY ve 8. 16 20 20 00 RE 78 6 56 15 16 OK MG 1 PH CH AR AE TA MA L BL CY S ET LL C FE 00 10 03 0 30 30 ME 12 GA Ac RO 90 -1 -2 0. D 27 IN ti CLARK 47 0- 9- 00 CA 31 EY ve L 59 20 20 0 RE 11 32 08 15 16 OK 5 2 PH CH MG AR AE MA L TA CY S BL ET LL C 00 11 03 0 30 30 ME 12 GA Ac TA 90 -0 -2 0. D 26 IN ti OK 45 5- 4- 00 CA 13 EY ve N 04 20 20 0 RE 04 AN 26 15 16 OK D 0 PH CH OK AR AE NE MA L RA CY S LS LL TA C BL ET ST 00 02 03 0 30 30 ME 12 GA Ac OO 53 -2 -2 0. D 24 IN ti L 61 3- 2- 00 CA 91 EY ve SO 06 20 20 0 RE 08 FT 41 16 16 OK EN 0 PH CH ER AR AE MA L 25 CY S 0 MG LL C SO FT GE L 00 10 03 0 30 30 ME 12 GA Ac PI 60 -0 -2 0. D 25 IN ti RI 30 9- 1- 00 CA 14 EY ve N 02 20 20 0 RE 48 EC 63 15 16 OK 2 PH CH 81 AR AE MA L MG CY S TA LL BL C ET BI 00 03 03 0 15 15 ME 12 GA Ac SC 90 -1 -1 0. D 21 IN ti OL 45 0- 0- 00 CA 54 EY ve AX 05 20 20 0 RE 70 86 16 16 OK 10 0 PH CH AR AE MG MA L CY S CLARK PP LL OS C IT OR Y SE 00 10 02 0 12 30 ME 12 GA Ac NN 90 -2 -2 00 D 17 IN ti A 45 9- 9- .0 CA 54 EY ve 8. 16 20 20 00 RE 30 6 56 15 16 OK MG 1 PH CH AR AE TA MA L BL CY S ET LL C FE 00 10 02 0 30 30 ME 12 GA Ac RO 90 -1 -2 0. D 17 IN ti CLARK 47 0- 9- 00 CA 54 EY ve L 59 20 20 0 RE 28 32 08 15 16 OK 5 2 PH CH MG AR AE MA L TA CY S BL ET LL C 00 11 02 0 30 30 ME 12 GA Ac TA 90 -0 -2 0. D 16 IN ti OK 45 5- 6- 00 CA 76 EY ve N 04 20 20 0 RE 44 AN 26 15 16 OK D 0 PH CH OK AR AE NE MA L RA CY S LS LL TA C BL ET 00 10 02 0 30 30 ME 12 GA Ac PI 60 -0 -2 0. D 16 IN ti RI 30 9- 6- 00 CA 76 EY ve N 02 20 20 0 RE 41 EC 63 15 16 OK 2 PH CH 81 AR AE MA L MG CY S TA LL BL C ET ST 00 02 02 0 30 30 ME 12 GA Ac OO 53 -2 -2 0. D 16 IN ti L 61 3- 3- 00 CA 16 EY ve SO 06 20 20 0 RE 99 FT 41 16 16 OK EN 0 PH CH ER AR AE MA L 25 CY S 0 MG LL C SO FT GE L NO 64 02 02 0 30 5 ME 12 GA Ac RM 25 -1 -1 00 D 14 IN ti AL 30 9- 9- .0 CA 72 EY ve 11 20 20 00 RE 74 SA 13 16 16 OK LI 0 PH CH NE AR AE MA L FL CY S US H LL SY C RI NG E HE 64 02 02 0 10 5 ME 12 GA Ac PA 25 -1 -1 00 D 14 IN ti RI 30 9- 9- .0 CA 72 EY ve N 33 20 20 00 RE 75 50 33 16 16 OK 0 5 PH CH UN AR AE IT MA L /5 CY S ML LL C (1 00 /M L) NI 00 10 10 0 30 1 ME 11 GA Ac TR 28 -0 -0 0. D 70 IN ti O- 10 2- 2- 00 CA 90 EY ve BI 32 20 20 0 RE 44 D 63 15 15 OK 2% 0 PH CH AR AE OI MA L NT CY S ME NT LL C MO 00 10 10 0 30 15 ME 11 GA Ac RP 40 -0 -0 0. D 70 IN ti HI 68 1- 1- 00 CA 82 EY ve NE 31 20 20 0 RE 36 50 15 15 OK CLARK 1 PH CH LF AR AE MA L ER CY S 15 LL C MG TA BL ET NO 00 10 10 0 10 15 ME 11 GA Ac VO 16 -0 -0 00 D 70 IN ti FI 91 1- 1- .0 CA 82 EY ve NE 85 20 20 00 RE 35 27 15 15 OK AU 5 PH CH TO AR AE CO MA L VE CY S R 30 LL G C NE ED LE MA 00 09 09 0 19 3 ME 11 GA Ac PA 90 -1 -2 0. D 69 IN ti P 41 1- 8- 00 CA 64 EY ve 50 98 20 20 0 RE 31 0 86 15 15 OK MG 1 PH CH AR AE TA MA L BL CY S ET LL C 00 09 09 0 13 13 ME 11 GA Ac TA 90 -1 -1 0. D 66 IN ti OK 45 7- 7- 00 CA 15 EY ve N 04 20 20 0 RE 56 AN 26 15 15 OK D 0 PH CH OK AR AE NE MA L RA CY S LS LL TA C BL ET FE 00 09 09 0 30 30 ME 11 GA Ac RR 60 -1 -1 0. D 66 IN ti OU 30 7- 7- 00 CA 15 EY ve S 17 20 20 0 RE 57 CLARK 92 15 15 OK LF 9 PH CH AT AR AE E MA L 32 CY S 5 MG LL C TA BL ET 63 09 09 0 20 20 ME 11 GA Ac PI 73 -1 -1 0. D 64 IN ti RI 90 1- 1- 00 CA 99 EY ve N 43 20 20 0 RE 10 81 40 15 15 OK 1 PH CH MG AR AE MA L CH CY S EW AB LL LE C TA BL ET CA 68 03 09 0 18 90 WA 73 SM Ac RV 46 -1 -0 00 L- 69 IT ti ED 20 0- 3- .0 MA 55 H ve IL 16 20 20 00 RT 9 OK OL 50 15 15 KE 5 PH [...] -0 -0 0. L- 67 RS ti OK 96 4- 3- 00 MA 45 ON [...] 15 15 EU E 5 PH GO OR AR ND OP MA A CY F 50 # MC 10 G 05 SP 91 RA Y CL 16 03 08 7 30 30 KM 68 SM Ac OP 72 -1 -1 0. AR 59 IT ti ID 90 0- 2- 00 T 40 H ve OG 21 20 20 0 PH 5 OK RE 81 15 15 AR KE L 5 MA L 75 CY D # MG 48 TA 47 BL ET LE 00 12 08 11 15 30 KM 68 PA Ac VE 16 -0 -0 0. AR 56 RS ti OK 96 4- 5- 00 T 02 ON [...] 6- 4- 00 T 23 ON ve OK 21 20 20 0 PH 7 S DE 61 14 15 AR JE 0 MA RE 40 CY MY # C MG 48 TA 47 BL ET AT 00 04 08 4 30 30 KM 68 SM Ac OR 37 -0 -0 0. AR 59 IT ti VA 83 7- 4- 00 T [address] 95 20 20 0 PH 7 OK AT 37 15 15 AR KE IN 7 MA L CY D 80 # MG 48 47 TA BL ET OR 59 04 07 11 85 17 KM [...] 6- 8- 00 T 23 ON ve OK 21 20 20 0 PH 7 S DE 61 14 15 AR JE 0 MA RE 40 CY MY # C MG 48 TA 47 BL ET AT 00 04 07 4 30 30 KM 68 SM Ac OR 37 -0 -0 0. AR 59 IT ti VA 83 7- 8- 00 T [address] 95 20 20 0 PH 7 OK AT 37 15 15 AR KE IN 7 MA L CY D 80 # MG 48 47 TA BL ET CL 16 03 07 7 30 30 KM 68 SM Ac OP 72 -1 -0 0. AR 59 IT ti ID 90 0- 8- 00 T 40 H ve OG 21 20 20 0 PH 5 OK RE 81 15 15 AR KE L 5 MA L 75 CY D # MG 48 TA 47 BL ET LE 00 12 06 11 15 30 KM 68 PA Ac VE 16 -0 -2 0. AR 56 RS ti OK 96 4- 9- 00 T 02 ON [...] 6- 3- 00 T 23 ON ve OK 21 20 20 0 PH 7 S DE 61 14 15 AR JE 0 MA RE 40 CY MY # C MG 48 TA 47 BL ET CL 16 03 06 7 30 30 KM 68 SM Ac OP 72 -1 -0 0. AR 59 IT ti ID 90 0- 3- 00 T 40 H ve OG 21 20 20 0 PH 5 OK RE 81 15 15 AR KE L 5 MA L 75 CY D # MG 48 TA 47 BL ET AT 00 04 06 4 30 30 KM 68 SM Ac OR 37 -0 -0 0. AR 59 IT ti VA 83 7- 3- 00 T [address] 95 20 20 0 PH 7 OK AT 37 15 15 AR KE IN [...] RE CE CY MY TA # C OK NO 48 PH 47 N 10 -3 [...] 6- 4- 00 T 23 ON ve OK 21 20 20 0 PH 7 S DE 61 14 15 AR JE 0 MA RE 40 CY MY # C MG 48 TA 47 BL ET RO 43 03 05 1 60 30 KM 68 SM Ac PI 54 -1 -0 0. AR 59 IT ti NI 70 0- 4- 00 T 40 H ve RO 27 20 20 0 PH 6 OK LE 11 15 15 AR KE 0 MA L HC CY D L # 2 MG 48 47 TA BL ET AT 00 04 05 4 30 30 KM 68 SM Ac OR 37 -0 -0 0. AR 59 IT ti VA 83 7- 4- 00 T [address] 95 20 20 0 PH 7 OK AT 37 15 15 AR KE IN 7 MA L CY D 80 # MG 48 47 TA BL ET CL 16 03 05 7 30 30 KM 68 SM Ac OP 72 -1 -0 0. AR 59 IT ti ID 90 0- 4- 00 T 40 H ve OG 21 20 20 0 PH 5 OK RE 81 15 15 AR KE L [...] C CA PS 48 UL 47 E OR 59 04 04 11 85 17 KM [...] PH 1 1 01 15 15 AR OK 4 MA CH GM CY AE /1 [...] OG 21 20 20 0 PH 5 OK RE 81 15 15 AR KE L 5 MA L 75 CY D # MG 48 TA 47 BL ET RO 43 03 04 1 60 30 KM 68 SM Ac PI 54 -1 -0 0. AR 59 IT ti NI 70 0- 7- 00 T 40 H ve RO 27 20 20 0 PH 6 OK LE 11 15 15 AR KE 0 MA L HC CY D L # 2 MG 48 47 TA BL ET AT 00 04 04 4 30 30 KM 68 SM Ac OR 37 -0 -0 0. AR 59 IT ti VA 83 7- 7- 00 T [address] 95 20 20 0 PH 7 OK AT 37 15 15 AR KE IN [...] ve 01 20 20 0 [place] 38 OK 50 36 15 15 2 KE 8 CL L MG IN D IC CA PS PH UL AR E MA CY LI 00 03 03 1 90 90 KE 52 SM Ac SI 17 -1 -1 0. NT 60 IT ti NO 23 0- 0- 00 UC 92 H ve OR 75 20 20 0 [place] 71 OK IL 98 15 15 6 KE 0 CL L 10 IN D IC MG PH TA AR BL MA ET CY LE 00 03 03 1 15 83 KE 52 SM Ac VE 16 -1 -1 0. NT 60 IT ti OK 96 0- 0- 00 UC 92 H ve R 43 20 20 0 [place] 71 OK FL 81 15 15 8 KE EX 0 CL L TO IN D UC IC H 10 PH 0 AR UN MA IT CY S/ ML AM 00 03 03 0 40 8 KE 52 SM Ac IT 60 -1 -1 .0 NT 60 IT ti RI 32 0- 0- 00 UC 92 H ve PT 21 20 20 [place] 71 OK YL 32 15 15 3 KE IN 1 CL L E IN D HC IC L 25 PH AR MG MA CY TA B RO 23 03 03 0 60 30 KE 52 SM Ac PI 15 -1 -1 0. NT 60 IT ti NI 50 0- 0- 00 UC 92 H ve RO 12 20 20 0 [place] 71 OK LE 40 15 15 2 KE 1 CL L HC IN D L IC 2 MG PH AR TA MA BL CY ET NO 00 03 03 1 15 62 KE 52 SM Ac VO 16 -1 -1 0. NT 60 IT ti LO 96 0- 0- 00 UC 92 H ve G 33 20 20 0 [place] 71 OK 10 91 15 15 7 KE 0 0 CL L UN IN D IT IC S/ ML PH AR FL MA EX CY PE N AT 60 03 03 1 30 30 KE 52 SM Ac OR 50 -1 -1 0. NT 60 IT ti VA 52 0- 0- 00 UC [address] 67 20 20 0 [place] 72 OK AT 10 15 15 0 KE IN 9 CL L IN D 80 IC MG PH AR TA MA BL CY ET ON 53 03 03 1 10 25 KE 52 SM Ac ET 88 -1 -1 00 NT 60 IT ti OU 50 0- 0- .0 UC 92 H ve CH 24 20 20 00 [place] 73 OK 51 15 15 0 KE UL 0 CL L TR IN D A IC TE ST PH AR ST MA RI CY PS ON 53 03 03 1 10 30 KE 52 SM Ac ET 88 -1 -1 00 NT 60 IT ti OU 50 0- 0- .0 UC 92 H ve CH 14 20 20 00 [place] 72 OK 30 15 15 9 KE DE 1 CL L LI IN D CA IC 33 PH G AR LA MA NC CY ET S CL 55 03 03 2 30 30 KE 52 SM Ac OP 11 -1 -1 0. NT 60 IT ti ID 10 0- 0- 00 UC 92 H ve OG 19 20 20 0 [place] 71 OK RE 69 15 15 9 KE L 0 CL L 75 IN D IC MG PH TA AR BL MA ET CY ON 53 03 03 0 10 30 KE 52 SM Ac ET 88 -1 -1 .0 NT 60 IT ti OU 50 0- 0- 00 UC 92 H ve CH 44 20 20 [place] 72 OK 80 15 15 1 KE UL 1 CL L TR IN D A2 IC GL PH UC AR OS MA E CY SY ST 00 03 03 1 90 90 KE 52 SM Ac PI 60 -1 -1 0. NT 60 IT ti RI 30 0- 0- 00 UC 92 H ve N 02 20 20 0 [place] 71 OK EC 62 15 15 4 KE 2 CL L 81 IN D IC MG PH TA AR BL MA ET CY CA 68 03 03 1 18 90 KE 52 SM Ac RV 38 -1 -1 00 NT 60 IT ti ED 20 0- 0- .0 UC 92 H ve IL 09 20 20 00 [place] 72 OK OL 50 15 15 2 KE 5 CL L 25 IN D IC MG PH TA AR BL MA ET CY FU 00 10 03 11 60 30 KM 68 PA Ac RO 37 -0 -0 0. AR 54 RS ti SE 80 6- 7- 00 T 23 ON ve OK 21 20 20 0 PH 7 S [...] 69 20 20 0 PH 7 S OK 61 14 15 AR KE X 9 [...] 11 60 30 KM 68 PA Ac OR 18 -0 -2 0. AR 53 RS [...] 6- 8- 00 T 23 ON ve OK 21 20 20 0 PH 7 S [...] 11 60 30 KM 68 PA Ac OR 18 -0 -1 0. AR 53 RS [...] 6- 7- 00 T 23 ON ve OK 21 20 20 0 PH 7 S [...] 11 60 30 KM 68 PA Ac OR 18 -0 -1 0. AR 53 RS [...] 44 6- 1- T 23 ON ve OK 29 20 20 0 PH 7 S [...] 11 60 30 KM 68 PA Ac OR 18 -0 -0 0. AR 53 RS [...] 44 6- 6- T 23 ON ve OK 29 20 20 0 PH 7 S [...] 5- 7- 00 T 24 ES ve OK 29 20 20 0 PH 4 S [...] 11 60 30 KM 68 PA Ac OR 18 -0 -0 0. AR 53 RS [...] 5- 1- 00 T 24 ES ve OK 21 20 20 0 PH 4 S [...] TE ST [address] RI PS OR 59 06 07 11 85 25 KM [...] -1 -1 0. AR 48 LL ti OR 80 9- 5- 00 T 97 ve [...] 69 20 20 0 PH 7 S OK 61 14 14 AR KE X 9 [...] 5- 0- 00 T 24 ES ve OK 21 20 20 0 PH 4 S [...] L 50 48 47 MG TA B OR 59 06 06 11 85 25 KM [...] -1 -0 0. AR 48 LL ti OR 80 9- 9- 00 T 97 ve [...] 69 20 20 0 PH 7 S OK 61 14 14 AR KE X 9 [...] 5- 1- 00 T 24 ES ve OK 21 20 20 0 PH 4 S [...] 69 20 20 0 PH 7 S OK 61 14 14 AR KE X 9 MA LL 70 CY Y -3 # 0 FL 48 EX 47 PE N SY RN ME 00 09 05 6 60 30 KM 68 CASTELAN Ac TO 37 -1 -0 0. AR 48 LL ti OR 80 9- 5- 00 T 97 ve [...] 5- 2- 00 T 24 ES ve OK 21 20 20 0 PH 4 S [...] 5 IN RA CE IC J TA OK PH NO AR PH MA N CY [...] -1 -2 0. AR 48 LL ti OR 80 9- 7- 00 T 97 ve [...] 5 IN RA CE IC J TA OK PH NO AR PH MA N CY [...] 5- 5- 00 T 24 ES ve OK 21 20 20 0 PH 4 S [...] IN RE CE IC MY TA C OK PH NO AR PH MA N CY [...] 69 20 20 0 PH 2 S OK 61 13 14 AR JE X 9 [...] 80 5- 9- T 93 ON ve OK 21 20 20 0 PH 2 S DE 61 13 14 AR JE 0 MA RE 40 CY MY # C MG 48 TA 47 BL ET ME 00 09 01 11 60 30 KM 68 PA Ac TO 37 -1 -2 0. AR 43 RS ti OR 80 9 9 T 88 ON ve [...] IN RE CE IC MY TA C OK PH NO AR PH MA N CY [...] 5- 9- 00 T 93 ON ve OK 21 20 20 0 PH 2 S [...] -1 -1 0. AR 43 RS ti OR 80 9- 9- 00 T 88 ON [...] 69 20 20 0 PH 2 S OK 61 13 13 AR JE X 9 [...] 7- 0- 00 T 23 ON ve OK 21 20 20 0 PH 8 S [...] -1 -2 0. AR 43 RS ti OR 80 9- 0- 00 T 88 ON [...] 69 20 20 0 PH 2 S OK 61 13 13 AR JE X 9 [...] -1 -2 0. AR 43 RS ti OR 80 9- 3- 00 T 88 ON [...] 7- 3- 00 T 23 ON ve OK 21 20 20 0 PH 8 S [...] -1 -1 0. AR 43 RS ti OR 80 9- 9- 00 T 88 ON [...] 7- 8- 00 T 23 ON ve OK 21 20 20 0 PH 8 S [...] 7- 6- 00 T 23 ON ve OK 21 20 20 0 PH 8 S [...] 7- 8- 00 T 23 ON ve OK 21 20 20 0 PH 8 S [...] -0 -2 0. AR 38 RS ti OR 80 6- 8- 00 T 07 ON [...] 69 20 20 0 PH 1 S OK 61 12 13 AR JE X 9 [...] 7- 7- 00 T 23 ON ve OK 21 20 20 0 PH 8 S [...] -0 -3 0. AR 38 RS ti OR 80 6- 1- 00 T 07 ON [...] 69 20 20 0 PH 1 S OK 61 12 13 AR JE X 9 [...] 69 20 20 0 PH 1 S OK 61 12 13 AR JE X 9 [...] -0 -0 0. AR 38 RS ti OR 80 6- 2- 00 T 07 ON [...] 7- 5- 00 T 83 ON ve OK 21 20 20 0 PH 2 S [...] 69 20 20 0 PH 1 S OK 61 12 13 AR JE X 9 MA RE 70 CY MY -3 # C 0 FL 48 EX 47 PE N SY RN ME 00 02 04 4 60 30 KM 68 PA Ac TO 37 -0 -0 0. AR 38 RS ti OR 80 6- 5- 00 T 07 ON [...] -0 -0 0. AR 38 RS ti OR 80 6- 8- 00 T 07 ON [...] 7- 8- 00 T 83 ON ve OK 21 20 20 0 PH 2 S [...] 69 20 20 0 PH 1 S OK 61 12 13 AR JE X 9 [...] 4- 7- 00 T 12 ON ve OK 21 20 20 PH 8 S DE [...] -0 -2 .0 AR 11 YN ti OR 40 4- 7- 00 T 00 E ve OL 47 20 20 PH 6 VA OL 75 11 11 AR UG 8 MA HN TA CY W RT 71 RA 74 TE # 50 71 74 MG TA B OR 00 10 10 0 21 6 KM [...] 4- 8- 00 T 12 ON ve OK 21 20 20 PH 8 S DE 61 11 11 AR JE 0 MA RE 40 CY MY 71 C MG 74 # TA BL 71 ET 74 ME 00 01 09 6 60 30 KM 69 PA Ac TO 09 -0 -2 .0 AR 11 YN ti OR 30 4- 8- 00 T 00 E [...] G 69 20 20 PH 3 E OK 61 11 11 AR SA X 9 [...] 4- 1- 00 T 00 E ve OK 21 20 20 PH 9 VA DE [...] -0 -3 .0 AR 11 YN ti OR 30 4- 0- 00 T 00 E [...] G 69 20 20 PH 3 E OK 61 11 11 AR SA X 9 [...] 4- 3- 00 T 00 E ve OK 21 20 20 PH 9 VA DE [...] -0 -2 .0 AR 11 YN ti OR 30 4- 2- 00 T 00 E [...] 11 AR SA E 9 MA RA OR CY H OP 71 M 74 50 # MC 71 G 74 SP RA Y NO 00 06 07 3 15 30 KM 69 JU Ac VO 16 -2 -[address] ti LO 93 1- 2- 00 T 61 IC ve G 69 20 20 PH 3 E OK 61 11 11 AR SA X 9 [...] 4- 0- 00 T 00 E ve OK 21 20 20 PH 9 VA DE [...] 11 AR SA E 9 MA RA OR CY H OP 71 M 74 50 # MC 71 G 74 SP RA Y NO 00 06 06 3 15 30 KM 69 JU Ac VO 16 -2 -[address] ti LO 93 1- 2- 00 T 61 IC ve G 69 20 20 PH 3 E OK 61 11 11 AR SA X 9 [...] -0 -2 .0 AR 11 YN ti OR 30 4- 0- 00 T 00 E [...] 4- 2- 00 T 00 E ve OK 21 20 20 PH 9 VA DE [...] 11 AR SA E 9 MA RA OR CY H OP 71 M 74 50 [...] -0 -2 .0 AR 11 YN ti OR 30 4- 4- 00 T 00 E [...] G 69 20 20 PH 5 Y OK 61 10 11 AR JE X 9 [...] 4- 5- 00 T 00 E ve OK 21 20 20 PH 9 VA DE [...] 11 AR SA E 9 MA RA OR CY H OP 71 M 74 50 [...] -0 -2 .0 AR 07 YN ti OR 30 1- 7- 00 T 00 E [...] G 69 20 20 PH 5 Y OK 61 10 11 AR JE X 9 [...] 4- 8- 00 T 00 E ve OK 21 20 20 PH 9 VA DE [...] G 69 20 20 PH 5 Y OK 61 10 11 AR JE X 9 [...] 11 AR JE E 9 MA NN OR CY IF OP 71 ER 74 B 50 # MC 71 G 74 SP RA Y ME 00 11 03 6 60 30 KM 69 PA Ac TO 09 -0 -3 .0 AR 07 YN ti OR 30 1- 0- 00 T 00 E [...] 4- 4- 00 T 00 E ve OK 21 20 20 PH 9 VA DE [...] -0 -2 .0 AR 07 YN ti OR 30 1- 8- 00 T 00 E [...] G 69 20 20 PH 5 Y OK 61 10 11 AR JE X 9 [...] 11 AR JE E 9 MA NN OR CY IF OP 71 ER 74 B [...] 2- 5- 00 T 18 Y ve OK 21 20 20 PH 5 AZAM DE [...] -0 -2 .0 AR 07 YN ti OR 80 1- 6- 00 T 00 E [...] 11 AR JE E 9 MA NN OR CY IF OP 71 ER 74 B [...] G 69 20 20 PH 5 Y OK 61 10 11 AR JE X 9 [...] 2- 6- 00 T 18 Y ve OK 21 20 20 PH 5 AZAM DE [...] G 69 20 20 PH 5 Y OK 61 10 10 AR JE X 9 [...] 10 AR JE E 6 MA NN OR CY IF OP 71 ER 74 B [...] -0 -2 .0 AR 07 YN ti OR 80 1- 9- 00 T 00 E [...] 2- 6- 00 T 18 Y ve OK 21 20 20 PH 5 AZAM DE [...] -0 -2 .0 AR 07 YN ti OR 30 1- 9- 00 T 00 E [...] G 69 20 20 PH 8 TH OK 61 10 10 AR X 9 MA [...] 2- 8- 00 T 18 Y ve OK 21 20 20 PH 5 AZAM DE [...] -0 -0 .0 AR 07 YN ti OR 30 1- 00 T 00 E ve [...] 2- 1- 00 T 18 Y ve OK 21 20 20 PH 5 AZAM DE [...] -3 -0 .0 AR 94 YN ti OR 30 1- 2- 00 T 40 E [...] G 69 20 20 PH 8 TH OK 61 10 10 AR X 9 MA [...] 2- 3- 00 T 18 Y ve OK 21 20 20 PH 5 AZAM DE [...] -3 -0 .0 AR 94 YN ti OR 30 1- 2- 00 T 40 E [...] 8- 7- 00 T 58 Y ve OK 29 20 20 PH 9 AZAM DE [...] G 69 20 20 PH 3 TH OK 61 10 10 AR X 9 MA [...] -3 -0 .0 AR 94 YN ti OR 30 1- 2- 00 T 40 E [...] 8- 5- 00 T 58 Y ve OK 29 20 20 PH 9 AZAM DE [...] G 69 20 20 PH 3 TH OK 61 10 10 AR X 9 MA [...] -3 -0 .0 AR 94 YN ti OR 30 1- 2- 00 T 40 E [...] 8- 6- 00 T 58 Y ve OK 21 20 20 PH 9 AZAM DE [...] G 69 20 20 PH 3 TH OK 61 10 10 AR X 9 MA RA 70 CY -3 71 ND 0 74 ER FL # S EX PE 71 N 74 SY RN ME 00 06 06 21 6 RI 62 MU Ac TH 60 -0 -0 .0 TE 93 TI ti YL 34 7- 7- 00 98 SO ve OR 59 20 20 AI ED 31 10 10 D AN NI [address] SO AR EW LO MA M NE CY 4 02 MG 29 0 DO # SE 02 PK 29 ME 00 03 06 6 60 30 KM 68 PA Ac TO 09 -3 -0 .0 AR 94 YN ti OR 30 1- 1- 00 T 40 E [...] 8- 5- 00 T 58 Y ve OK 21 20 20 PH 9 AZAM DE [...] -3 -2 .0 AR 94 YN ti OR 30 1- 9- 00 T 40 E [...] G 69 20 20 PH 1 TH OK 61 10 10 AR X 9 MA [...] 8- 4- 00 T 58 Y ve OK 62 20 20 PH 9 AZAM DE [...] -3 -3 .0 AR 94 YN ti OR 30 1- 1- 00 T 40 E [...] 8- 8- 00 T 58 Y ve OK 62 20 20 PH 9 AZAM DE [...] 1- 8- 00 T 44 IN ve OK 62 20 20 PH 8 G DE [...] -3 -0 .0 AR 80 YN ti OR 30 1- 1- 00 T 99 E [...] 80 1- - RT 44 IN ve OK 21 20 20 8 G DE 61 09 10 PH MA 0 AR LE 40 M SH #7 EA MG 17 4 TA BL ET ME 00 08 02 05 60 30 K- 68 PA Ac TO 09 -3 -1 .0 MA 80 YN ti OR 30 1- - RT 99 E ve [...] 1- 4- 00 RT 44 IN ve OK 21 20 20 8 G DE 61 [...] -3 -1 .0 MA 80 YN ti OR 30 1- 4- 00 RT 99 E [...] -3 -1 .0 MA 80 YN ti OR 30 1- 7- 00 RT 99 E [...] 1- 7- 00 RT 44 IN ve OK 21 20 20 8 G DE 61 [...] 8- 9- 00 RT 77 IN ve OK 21 20 20 0 G DE 61 [...] -3 -0 .0 MA 80 YN ti OR 80 1- 5- 00 RT 99 E [...] 8- 2- 00 RT 77 IN ve OK 21 20 20 0 G DE 61 [...] -3 -0 .0 MA 80 YN ti OR 80 1- 8- 00 RT 99 E [...] 8- 4- 00 RT 77 IN ve OK 21 20 20 0 G DE 61 [...] -3 -1 .0 MA 80 YN ti OR 80 1- 0- 00 RT 99 E [...] 8- 7- 00 RT 77 IN ve OK 21 20 20 0 G DE 61 [...] -2 -1 .0 MA 58 YN ti OR 80 5- 3- 00 RT 62 E [...] 8- 0- 00 RT 77 IN ve OK 21 20 20 0 G DE 61 [...] -2 -1 .0 MA 58 YN ti OR 80 5- 6- 00 RT 62 E [...] 8- 2- 00 RT 77 IN ve OK 21 20 20 0 G DE 61 [...] -2 -0 .0 MA 58 YN ti OR 80 5- 4- 00 RT 62 E [...] 2- 7- 00 RT 52 IN ve OK 00 20 20 0 5 G N 80 09 09 PH MA HC 5 AR LE L M SH 50 #7 EA 0 17 MG 4 TA BL ET FU 00 02 05 03 30 30 K- 68 DU Ac RO 37 -1 -0 .0 MA 68 NN ti SE 80 2- 7- 00 RT 82 IN ve OK 21 20 20 3 G DE 61 [...] -2 -0 .0 MA 58 YN ti OR 80 5- 7- 00 RT 62 E [...] 2- 3- 00 RT 82 IN ve OK 21 20 20 3 G DE 61 [...] 2- 3- 00 RT 52 IN ve OK 00 20 20 0 5 G N [...] -2 -0 .0 MA 58 YN ti OR 80 5- 9- 00 RT 62 E [...] 2- 6- 00 RT 82 IN ve OK 21 20 20 3 G DE 61 [...] 2- 6- 00 RT 52 IN ve OK 00 20 20 0 5 G N [...] -2 -1 .0 MA 58 YN ti OR 80 5- 2- 00 RT 62 E [...] 2- 6- 00 RT 82 IN ve OK 21 20 20 3 G DE 61 [...] -2 -1 .0 MA 58 YN ti OR 80 5- 2- 00 RT 62 E [...] 1- 0- 00 RT 23 E ve OK 21 20 20 0 VA DE 61 [...] 2- 0- 00 RT 52 IN ve OK 00 20 20 0 5 G N 80 09 09 PH MA HC 5 AR LE L M SH 50 #7 EA 0 17 MG 4 TA BL ET OR 00 01 01 00 24 6 EC [...] 10 01 01 90 30 K- 44 OK Ac RI 07 -2 -0 .0 MA [...] -2 -0 .0 MA 58 YN ti OR 80 5- 1- 00 RT 62 E [...] 80 1- 1- RT 23 E ve OK 21 20 20 0 VA DE 61 [...] 10 12 01 12 30 K- 68 OK Ac AM 37 -2 -0 0. MA [...] 1- 4- 00 RT 23 E ve OK 21 20 20 0 VA DE 61 08 08 PH UG 0 AR HN 40 M W #7 MG 17 4 TA BL ET ME 00 08 12 03 60 30 K- 68 PA Ac TO 37 -2 -0 .0 MA 58 YN ti OR 80 5- 4- 00 RT 62 E [...] 10 11 00 12 30 K- 44 OK Ac 40 -2 -0 0. MA 53 [...] 10 11 00 90 30 K- 44 OK Ac RI 07 -2 -0 .0 MA 53 CK ti CA 11 8- 7- 00 RT 16 ve 01 20 20 6 GR 15 66 08 08 PH EG 0 8 AR OR MG M Y #7 E CA 17 PS 4 UL E TR 00 10 11 00 12 30 K- 68 OK Ac AM 37 -2 -0 0. MA [...] 1- 7- 00 RT 23 E ve OK 21 20 20 0 VA DE 61 08 08 PH UG 0 AR HN 40 M W #7 MG 17 4 TA BL ET ME 00 08 11 02 60 30 K- 68 PA Ac TO 37 -2 -0 .0 MA 58 YN ti OR 80 5- 7- 00 RT 62 E [...] 80 1- 9- RT 23 E ve OK 21 20 20 0 VA DE 61 08 08 PH UG 0 AR HN 40 M W #7 MG 17 4 TA BL ET ME 00 08 10 01 60 30 K- 68 PA Ac TO 37 -2 -0 .0 MA 58 YN ti OR 80 5- 9- 00 RT 62 E [...] -2 -1 .0 MA 58 YN ti OR 80 5- 1- 00 RT 62 E [...] 1- 1- 00 RT 23 E ve OK 21 20 20 0 VA DE 61 [...] 1- 4- 00 RT 23 E ve OK 21 20 20 0 VA DE 61 [...] 00 60 30 K- 68 BA Ac OR 18 -1 -1 .0 MA 53 IL [...] 08 PH CH E 9 AR RI OR M ST OP #7 OP 17 HE [...] 2- 7- 00 RT 98 EY ve OK 21 20 20 2 DE 61 08 [...] MG 4 R M TA BL ET OR 68 05 06 00 12 4 K- [...] 4- 5- 00 R 51 Av ve OK 96 20 20 TR ai DE 61 [...] 08 AC la E 9 E bl OR PH e OP M IN 50 C [...] 4- 8- 00 R 51 Av ve OK 96 20 20 TR ai DE 61 [...] 08 AC la E 9 E bl OR PH e OP M IN 50 C [...] 8- 7- 00 RT 60 Av ve OK 21 20 20 5 ai DE 61 08 08 PH la 0 AR bl 40 M e #7 MG 17 4 TA BL ET ME 00 03 04 00 60 30 K- 68 No Ac TO 37 -1 -1 .0 MA 48 t ti OR 80 8- 7- 00 RT 60 Av [...] 4- 0- 00 R 51 Av ve OK 96 20 20 TR ai DE 61 [...] 08 AC la E 9 E bl OR PH e OP M IN 50 C [...] 3- 0- 00 R 01 Av ve OK 03 20 20 TR ai N 00 [...] 7- 6- 00 RT 16 Av ve OK 21 20 20 1 ai DE 61 [...] 1- 6- 00 R 69 Av ve OK 02 20 20 0 TR ai N [...] -2 .0 MA 43 t ti OR 80 7- 6- 00 RT 16 Av [...] 1- 5- 00 R 69 Av ve OK 02 20 20 0 TR ai N 80 07 08 AC la HC 5 E bl L PH e 50 M 0 IN MG C TA BL ET FU 00 08 03 30 30 K- 68 No Ac RO 37 -2 -2 .0 MA 43 t ti SE 80 7- 5- 00 RT 16 Av ve OK 21 20 20 1 ai DE 61 [...] -2 .0 MA 43 t ti OR 80 7- 5- 00 RT 16 Av [...] Procedure DOS Code Location Performer Comment MEASUREME [id number] RADHA GARCIA NT 5 W W CARDIAC [facility] PR[facility] RT HEART PERQ TRANSFUSI [id number] RADHA GARCIA ON 5 W W NONAUTO [facility] RED BLD MEDICAL MEDICAL CELLS PERIPH VN PERQ INSERTION 0046 [facility] 5 Y Y VASCULAR [facility] STENTS PERQ 0066 [facility] [place] [address] [facility] COR[facility]ARY ANGIOPLAS TY PTCA INSERTION 3607 [facility] 5 Y Y [facility] ING COR[facility]ARY ARTERY STENT LEFT [address] [facility] 5 Y Y CARDIAC [facility] CATHETERI ZATION CORONARY 8856 [facility] 5 Y Y [facility] USING TWO CATHETERS INSERTION 8607 [facility] 1 [facility] IMPL MEDICAL MEDICAL VASCULAR CE CE ACCESS DEVICE Encounters Encounter Start End Date Code Location Performer Type Date [facility]OSPITAL [facility] - 7 7 [facility] 7 [facility] - 7 7 [facility]PATIEN [facility] - 7 7 [facility]EN [facility] - 7 7 [facility] 7 7 [facility]EN [facility] 7 7 [facility] 7 7 [facility] - 7 7 [facility]PATIENT [facility] - 7 7 [facility] 7 [facility] - 7 [facility] - 7 7 [facility]PAT[facility] - 7 7 [facility] - 7 7 [facility] - 6 6 [facility]PATI[facility] - 6 6 [facility]PATI[facility] - 6 6 [facility]PATI[facility] - 6 6 [facility]PATIEN [facility] SO[facility] - 6 6 [facility]PATI[facility] SO[facility] - 6 6 [facility]PATIEN [facility] SO[facility] - 6 6 [facility]PATI[facility] SO[facility] - 6 6 [facility]PATI[facility] - 6 6 [facility]PATI[facility] - 6 6 [facility]PATI[facility] - 6 6 [facility]PATI[facility] - 6 6 [facility]PATIEN [facility] 6 6 OF [facility] 6 6 OF [facility] 5 5 OF [facility] 5 5 OF [facility] 5 5 [facility] 5 5 [facility] 5 5 [facility] 5 5 [facility] - 5 5 [facility] - 5 5 [facility]PAT[facility] 5 5 [facility] [place] - 5 5 [facility] - 5 5 [facility] - 5 5 [facility]PATI[facility] SOCRATES - OTHER 5 5 [facility]CR[facility] - 5 5 [facility]PAT[facility] 5 5 [facility] - 5 5 [facility] 5 5 [facility]CRATES - 5 5 [facility]PATIEN [facility] 5 5 [facility] - 5 5 [facility] SOCRATES - 5 5 [facility] OUTPATIEN INC [facility], 5 5 HOME OUTPATIEN HEALTH [facility], 5 5 HOME OUTPATIEN [facility] [place], 5 5 HOME OUTPATIEN [facility] [place] [facility], 4 4 HOME OUTPATIEN HEALTH [facility] SOCRATES - 4 4 [facility] - 4 4 [facility] [place] - 4 4 REG[facility]AL OUTPATIEN MEDICAL [facility] SO[facility] - 4 4 [facility]PATIEN [facility] - 4 4 [facility] [place] - 4 4 REGIONAL OUTPATIEN MEDICAL [facility] - 4 4 [facility] - 4 4 [facility] - 4 4 [facility]PATIEN [facility] - 4 4 [facility] - 4 4 [facility] - 3 3 [facility]PAT[facility]EN [facility] [place] - 3 3 REGIONAL OUTPATIEN [facility] [place] - 3 3 REGIONAL OUTPATIEN [facility] - 3 3 [facility]PAT[facility] [place] - 2 2 REG[facility] OUTPATIEN [facility] [place] - 2 2 REG[facility]AL OUTPATIEN [facility] [place] - 1 1 REGIONAL OUTPATIEN MEDICAL T CE [facility], 1 1 HOME OUTPATIEN HEALTH T [facility] [place] - 1 1 REGIONAL INPATIENT [facility] [place] - 0 0 [facility]ICAL OUTPAT[facility]EN [facility] [place] - 0 0 REG[facility]AL OUTPATIEN [facility] [place] - 0 0 REG[facility]AL OUTPATIEN [facility] [place] - 0 0 [facility] [place] - 9 9 MEDICAL OUTPATIEN [facility] [place] - 9 9 REG[facility]AL OUTPATIEN [facility] [place] - 9 9 REG[facility]AL OUTPATIEN [facility] [place] - 8 8 REG[facility] OUTPATIEN [facility] [place] - 8 8 REG[facility] OUTPATIEN [facility] [place] - 8 8 [facility] OUTPATIEN [facility] [place] - 8 8 [facility] OUTPATIEN [facility] [place] - 8 8 [facility] OUTPATIEN [facility] [place] - 8 8 [facility] OUTPATIEN [facility] [place] - 8 8 [facility] OUTPATIEN [facility] [place] - 8 8 [facility]PAT[facility] [place] - 8 8 [facility]PAT[facility] [place] - 8 8 [facility] OUTPATIEN [facility] [place] - 8 8 [facility] OUTPATIEN [facility] [place] - 8 8 [facility] [place] [id number] 8 [facility] [place] [facility] [place] 8 [facility] 8 [facility]
--- OUTSIDE RECORDS SUMMARY | 2017-03-14 18:02 | External Medical Summary Rpt | CCD ---
Demographics Preferred Language Nam[place]ian Marital Status Unknown Sabianist Affiliation Unknown Race Unknown Ethnic Group Unknown Author Author , NOREEN SORTO Address Unknown Phone Immunization No patient found.
--- OUTSIDE RECORDS SUMMARY | 2017-03-14 18:02 | External Medical Summary Rpt | CCD ---
Demographics Preferred Language Italian Marital Status Unknown Rastafarian Affiliation Unknown Race Unknown Ethnic Group Unknown Author Author , NOREEN SORTO Address Unknown Phone Immunization No patient found.
--- OUTSIDE RECORDS SUMMARY | 2017-03-14 18:04 | External Medical Summary Rpt ---
Author Author NOREEN Coats, [employer] Address Unknown Phone Unavailable Payers Section Payer Plan Name Group ID Member ID Coverage Coverage Start End Date Date E04^ [id number] No No MEDICAL MEDICAL 3 informati informati ASSISTANC ASSISTANC on in on in E E^PLANID source source data data Results CBC W Auto Differential panel in Blood Observa Value Referen Units Interpr Notes Date tion ce etation Range Basophils 0 - 0.2 K/MM3 Normal Mar 14 inform2016 2:55 [#/volume on in PM ] in source Blood by data Automated count Basophils 0.1 - 2.0 % Low No Mar 14 informati 2016 2:55 leukocyte on in PM s in source Blood by data Automated count Eosinophi 0.0 - 0.4 K/mm3 Normal Mar 14 ls informati 2016 2:55 [#/volume on in PM ] in source Blood by data Automated count Eosinophi 0.1 - % Normal Mar 14 ls/100 12.0 informati 2016 2:55 leukocyte on in PM s in source Blood by data Automated count Granulocy 1.3 - 8.0 K/mm3 High Mar 14 [place] informati 2016 2:55 [#/volume on in PM ] in source Blood by data Automated count Granulocy 37.0 - % High Mar 14 [place]/100 80.0 informati 2016 2:55 leukocyte on in PM s in source Blood by data Automated count Hematocri 42.0 - % Low Mar 14 t [Volume 52.0 informati 2016 2:55 on in PM Fraction] source of Blood data Hemoglobi 14.1 - g/dL Low Mar 14 n 18.0 informati 2016 2:55 [Mass/vol on in PM ume] in source Blood data Lymphocyt 0.7 - 4.5 K/mm3 Low Mar 14 es ati 2016 2:55 [#/volume on in PM ] in source Unspecifi data ed specimen by Automated count Lymphocyt 10 - 50 % Low No Mar 14 es informati 2016 2:55 [#/volume on in PM ] in source Unspecifi data ed specimen by Automated count Erythrocy 27 - 31.2 pg Low Mar 14 te mean inform2016 2:55 corpuscul on in PM ar source hemoglobi data n [Entitic mass] Erythrocy 31.8 - g/dl Low Mar 14 te mean 35.4 inform2016 2:55 corpuscul on in PM ar source hemoglobi data n concentra tion [Mass/vol ume] by Automated count Erythrocy 82.2 - fl Low Mar 14 te mean 97.8 informati 2016 2:55 corpuscul on in PM ar volume source [Entitic data volume] by Automated count Monocytes 0.1 - 1.0 K/mm3 Normal No Mar 142016 2:55 [#/volume on in PM ] in source Blood by data Automated count Monocytes 1.7 - 9.3 % Normal Mar 14 informati 2016 2:55 leukocyte on in PM s in source Blood by data Automated count Platelet 7.4 - fl Normal Mar 14 mean 10.4 informati 2016 2:55 volume on in PM [Entitic source volume] data in Blood by Automated count Platelets 142 - 424 K/mm3 Normal Mar 14 inform2016 2:55 [#/volume on in PM ] in source Blood data Erythrocy 4.6 - 6.2 M/mm3 Low Mar 14 [place] informati 2016 2:55 [#/volume on in PM ] in source Amniotic data fluid Erythrocy 11.5 - % Normal Mar 14 te 17.5 informati 2016 2:55 distribut on in PM ion width source [Entitic data volume] by Automated count Leukocyte 4.8 - K/MM3 No Mar 14 s 10.8 informati informati 2016 2:55 [#/volume on in on in PM ] in source source Blood data data Differential panel, method unspecified - Observa Value Referen Units Interpr Notes Date tion ce etation Range Neutrophi 0 - 8 % Normal Mar 14 ls.band informati 2016 2:55 form/100 on in PM leukocyte source s in data Blood by Automated count LYMPH 5 10 - 50 % Low Mar 14 inform2016 tion in 2:55 PM source data Monocytes 2 - 9 % Normal No Nov 29 /100 informati 2017 2:55 leukocyte on in PM s in source Blood by data Automated count Platele NORMAL No No No Mar 14 ts informa informa informa informa 2017 [Presen tion in tion in tion in tion in 2:55 PM ce] in source source source source Blood data data data data by Light microsc opy Neutrophi 42 - 76 % High No Mar 14 ls informati 2016 2:55 [#/volume on in PM ] in source Blood by data Automated count Cells No #CELLS No Mar 14 Counted informati informati informati 2017 2:55 Total [#] on in on in on in PM in Blood source source source data data data Natriutietic peptide B [Mass/volume] in Serum or Plasma Observa Value Referen Units Interpr Notes Date tion ce etation Range Natriutie 0 - 100 pg/mL High No Mar 14 tic informati 2017 2:55 peptide B on in PM source [Mass/vol data ume] in Serum or Plasma Lactate [Moles/volume] in Blood Observa Value Referen Units Interpr Notes Date tion ce etation Range Lactate 0.4 - 2.0 mmol/L Normal No Mar 14 [Moles/vo informati 2017 2:55 lume] in on in PM Blood source data Cardiac enzymes Observa Value Referen Units Interpr Notes Date ti ce etation Range Creatine 0 - 4.0 U/L High No Mar 14 kinase.MB informati 2016 2:55 /Creatine on in PM source kinase.to data weston [Ratio] in Serum or Plasma Creatine 0.0 - 3.6 ng/mL No Mar 14 kinase.MB informati informati 2017 2:55 on in on in PM [Mass/vol source source ume] in data data Serum or Plasma Creatine 39 - 308 U/L Normal No Mar 14 kinase informati 2016 2:55 [Enzymati on in PM c source activity/ data volume] in Serum or Plasma Troponin 0.00 - ng/mL Normal No Mar 14 I.cardiac 0.06 informati 2017 2:55 on in PM [Mass/vol source ume] in data Serum or Plasma Comprehensive metabolic 2000 panel in Serum or Plasma Observa Value Referen Units Interpr Notes Date tion ce etation Range Albumin/G 1.1 - 1.8 No Low No Mar 14 lobulin informati informati 2017 2:55 [Mass on in on in PM ratio] in source source Serum or data data Plasma Albumin 3.4 - 5.0 gm/dL Low No Mar 14 [Mass/vol informati 2016 2:55 ume] in on in PM Serum or source Plasma data Alkaline 46 - 116 U/L Normal No Mar 14 phosphata informati 2016 2:55 se on in PM [Enzymati source c data activity/ volume] in Serum or Plasma Bilirubin 0.2 - 1.0 mg/dL Normal Mar 14 .total informati 2016 2:55 [Mass/vol on in PM ume] in source Serum or data Plasma Urea 7 - 18 mg/dL High Mar 14 nitrogen NOTIFICAT 2016 2:55 [Mass/vol ION PM ume] in RESULT Serum or Plasma Calcium 8.5 - mg/dL Low No Mar 14 [Mass/vol 10.1 informati 2016 2:55 ume] in on in PM Serum or source Plasma data Chloride 98 - 107 mmoL/L Normal Mar 14 [Moles/vo informati 2016 2:55 lume] in on in PM Serum or source Plasma data Carbon 21.0 - mmoL/L High No Mar 14 dioxide, 32.0 informati 2017 2:55 total on in PM [Moles/vo source lume] in data Serum or Plasma Creatinin 0.70 - mg/dL High No Mar 14 e 1.30 informati 2016 2:55 [Mass/vol on in PM ume] in source Serum or data Plasma Creatinin 50 - 200 ML/MIN Normal No Mar 14 e renal informati 2016 2:55 clearance on in PM source predicted data by Cockcroft -Gault formula Estimated >60 ML/MIN No REFERENCE Mar 14 informati RANGE: 2017 2:55 glomerula on in >60 PM r source ML/MIN/1. filtratio data 73 SQUARE n rate METERSIf (GF this patient is -A merican, then multiply theresult by 1.210. Globulin 1.3 - 3.2 gm/dL High No Mar 14 [Mass/vol informati 2016 2:55 ume] in on in PM Serum source data Glucose 74 - 106 mg/dL High Mar 14 [Mass/vol informati 2016 2:55 ume] in on in PM Serum or source Plasma data Potassium 3.5 - 5.1 mmoL/L Normal No Mar 14 informati 2016 2:55 [Moles/vo on in PM lume] in source Serum or data Plasma Sodium 136 - 145 mmoL/L Normal No Mar 14 [Moles/vo informati 2016 2:55 lume] in on in PM Serum or source Plasma data Aspartate 15 - 37 U/L No Mar 14 informati informati 2016 2:55 aminotran on in on in PM sferase source source [Enzymati data data c activity/ volume] in Serum or Plasma Alanine 12 - 78 U/L Normal No Mar 14 aminotran informati 2016 2:55 sferase on in PM [Enzymati source c data activity/ volume] in Serum or Plasma Protein 6.4 - 8.2 gm/dL Normal No Mar 14 [Mass/vol informati 2016 2:55 ume] in on in PM Serum or source Plasma data Gas panel in Arterial blood Observa Value Referen Units Interpr Notes Date tion ce etation Range Base -2.4-+2.3 MMOL/L High No Mar 14 excess in informati 2016 2:37 Arterial on in PM blood source data Arteria NON No No No No Mar 14 l APPLICA informa informa informa informa 2017 patency BLE tion in tion in tion in tion in 2:37 PM Wrist source source source source artery data data data data --pre arteria l punctur e Bicarbona 22.0 - MMOL/L High No Mar 14 te 26.0 informati 2016 2:37 [Moles/vo on in PM lume] in source Arterial data blood Carbon 35.0 - MMHG High Mar 14 dioxide 45.0 2016 2:37 [Partial CRITICAL PM pressure] RESULTS in Arterial RESU blood LTS CALLED TO: CADENCE 03/14/17 1529 Silvia on,Adri pH of 7.35 - MMOL/L Low alert No Mar 14 Arterial 7.45 ati 2016 2:37 blood on in PM source data Oxygen 80 - 100 MMHG High No Mar 14 [Partial informati 2017 2:37 pressure] on in PM in source Arterial data blood Oxygen 90 - 100 % Normal No Mar 14 saturatio ati 2016 2:37 n.calcula on in PM alicia from source oxygen data partial pressure in Arterial blood SOURCE LEFT No No No No Mar 14 RADIAL informa informa informa informa 2017 tion in tion in tion in tion in 2:37 PM source source source source data data data data Carbon 23 - 27 MMOL/L High Mar 14 dioxide, informati 2016 2:37 total on in PM [Moles/vo source lume] in data Arterial blood Glucose [Mass/volume] in Capillary blood by Glucometer Observa Value Referen Units Interpr Notes Date ti ce etation Range Glucose 70 - 110 mg/dl High Mar 13 [Mass/vol informati 2016 6:33 ume] in on in AM Capillary source blood by data Glucomete r CBC W Auto Differential panel in Blood Observa Value Referen Units Interpr Notes Date ce etation Range Basophils 0 - 0.2 K/MM3 Normal No Mar 13 informati 2016 6:20 [#/volume on in AM ] in source Blood by data Automated count Basophils 0.1 - 2.0 % Low No Mar 13 /100 informati 2017 6:20 leukocyte on in AM s in source Blood by data Automated count Eosinophi 0.0 - 0.4 K/mm3 Normal No Mar 13 ls informati 2016 6:20 [#/volume on in AM ] in source Blood by data Automated count Eosinophi 0.1 - % Normal No Mar 13 ls/100 12.0 informati 2016 6:20 leukocyte on in AM s in source Blood by data Automated count Granulocy 1.3 - 8.0 K/mm3 Normal No Mar 13 [place] informati 2016 6:20 [#/volume on in AM ] in source Blood by data Automated count Granulocy 37.0 - % High No Mar 13 [place]/100 80.0 informati 2016 6:20 [...] 0.7 - 4.5 K/mm3 Low No Mar 13 es informati 2016 6:20 [#/volume on in AM ] in source Unspecifi data ed specimen by Automated count Lymphocyt 10 - 50 % Low No Mar 13 es informati 2016 6:20 [#/volume on in AM ] in source Unspecifi data ed specimen by Automated count Erythrocy 27 - 31.2 pg Low No Mar 13 te mean inform2016 6:20 corpuscul on in AM ar source hemoglobi data n [Entitic mass] Erythrocy 31.8 - g/dl Low Mar 13 te mean 35.4 informati 2016 6:20 corpuscul on in AM ar source hemoglobi data n concentra tion [Mass/vol ume] by Automated count Erythrocy 82.2 - fl Low Mar 13 te mean 97.8 informati 2016 6:20 corpuscul on in AM ar volume source [Entitic data volume] by Automated count Monocytes 0.1 - 1.0 K/mm3 Normal Mar 13 informati 2016 6:20 [#/volume on in AM ] in source Blood by data Automated count Monocytes 1.7 - 9.3 % Normal No Mar 13 /100 informati 2016 6:20 leukocyte on in AM s in source Blood by data Automated count Platelet 7.4 - fl Normal Mar 13 mean 10.4 informati 2016 6:20 volume on in AM [Entitic source volume] data in Blood by Automated count Platelets 142 - 424 K/mm3 Normal Mar 13 informati 2016 6:20 [#/volume [...] Range Hypochr 2+ No No No Mar 13 omia informa informa informa informa 2016 [Presen tion in tion in tion in tion in 6:20 AM ce] in source source source source Blood data data data data LYMPH 5 10 - 50 % Low Mar 13 informa 2017 tion in 6:20 AM source data Monocytes [...] opy Neutrophi 42 - 76 % High Mar 13 ls informati 2016 6:20 [#/volume [...] Albumin/G 1.1 - 1.8 No Low Mar 13 lobulin informati informati 2016 6:20 [Mass on in on in AM ratio] in source source Serum or data data Plasma Albumin 3.4 - 5.0 gm/dL Low No Mar 13 [Mass/vol informati 2017 6:20 ume] in on [...] or Plasma Calcium 8.5 - mg/dL Normal Mar 13 [Mass/vol 10.1 informati 2016 6:20 ume] in on in AM Serum or source Plasma data Chloride 98 - 107 mmoL/L Normal No Mar 13 [Moles/vo informati 2016 6:20 lume] in on in AM Serum or source Plasma data Carbon 21.0 - mmoL/L High Mar 13 dioxide, 32.0 informati 2016 6:20 [...] 1.3 - 3.2 gm/dL High No Mar 13 [Mass/vol informati 2016 6:20 ume] in on in AM Serum source data Glucose 74 - 106 mg/dL High No Mar 13 [Mass/vol informati 2016 6:20 [...] 6.4 - 8.2 gm/dL Normal No Mar 13 [Mass/vol informati 2016 6:20 ume] in on in AM Serum or source Plasma data Glucose [Mass/volume] in Capillary blood by Glucometer Observa Value Referen Units Interpr Notes Date tion ce etation Range Glucose 70 - 110 mg/dl High No Mar 13 [Mass/vol informati 2016 1:09 ume] in on in AM Capillary [...] Glucose 70 - 110 mg/dl High Mar 12 [Mass/vol alert informati 2016 ume] in on in 11:41 AM Capillary source blood by data Glucomete r Glucose [Mass/volume] in Capillary blood by Glucometer Observa Value Referen Units Interpr Notes Date ti ce etation Range Glucose 70 - 110 mg/dl High Mar 12 [Mass/vol informati 2016 6:33 ume] in on in AM Capillary source blood by data Glucomete r CBC W Auto Differential panel in Blood Observa Value Referen Units Interpr Notes Date tion ce etation Range Basophils 0 - 0.2 K/MM3 Normal No Mar 12 informati 2016 6:00 [...] Eosinophi 0.1 - % Normal Mar 12 ls/100 12.0 informati 2016 6:00 leukocyte on in AM s in source Blood by data Automated count Granulocy 1.3 - 8.0 K/mm3 Normal Mar 12 [place] informati 2016 6:00 [#/volume on in AM ] in source Blood by data Automated count Granulocy 37.0 - % High Mar 12 [place]/100 80.0 informati 2016 6:00 leukocyte on in AM [...] Low Mar 12 te mean 97.8 informati 2016 6:00 corpuscul on in AM ar volume [...] fl Normal Mar 12 mean 10.4 informati 2016 6:00 volume on in AM [Entitic source volume] data in Blood by Automated count Platelets 142 - 424 K/mm3 Normal Mar 12 informati 2016 6:00 [#/volume on in AM ] in source Blood data Erythrocy 4.6 - 6.2 M/mm3 Low No Mar 12 [place] informati 2017 6:00 [#/volume on in AM ] in source Amniotic data fluid Erythrocy 11.5 - % Normal Mar 12 te 17.5 informati 2016 6:00 distribut on in AM ion width source [Entitic data volume] by Automated count Leukocyte 4.8 - K/MM3 Low Mar 12 s 10.8 informati 2016 6:00 [#/volume on in AM ] in source Blood data Differential panel, method unspecified - Observa Value Referen Units Interpr Notes Date tion ce etation Range Hypochr 2+ No No No No Mar 12 omia informa informa informa informa 2016 [Presen tion in tion in tion in tion in 6:00 AM ce] in source source source source Blood data data data data LYMPH 6 10 - 50 % Low No Mar 12 informa 2016 tion in 6:00 AM source data Monocytes [...] No Mar 12 Counted informati informati informati 2017 6:00 Total [#] on in on in on in AM in Blood source source source data data data Comprehensive metabolic 2000 panel in Serum or Plasma Observa Value Referen Units Interpr Notes Date tion ce etation Range Albumin/G 1.1 - 1.8 No Low Mar 12 lobulin informati informati 2016 6:00 [Mass on in on in AM ratio] in source source Serum or data data Plasma Albumin 3.4 - 5.0 gm/dL Low No Mar 12 [Mass/vol informati 2016 6:00 ume] in on in AM Serum or source Plasma data Alkaline 46 - 116 U/L Normal Mar 12 phosphata informati 2016 6:00 se [...] mmoL/L Normal No Mar 12 [Moles/vo informati 2017 6:00 lume] in on in AM Serum [...] Sodium 136 - 145 mmoL/L Normal Mar 12 [Moles/vo informati 2016 6:00 lume] in on in AM Serum or source Plasma data Aspartate 15 - 37 U/L Normal No Mar 12 informati 2016 6:00 aminotran on in AM sferase source [Enzymati data c activity/ volume] in Serum or Plasma Alanine 12 - 78 U/L Normal Mar 12 aminotran informati 2016 6:00 sferase on in AM [Enzymati source c data activity/ volume] in Serum or Plasma Protein 6.4 - 8.2 gm/dL Normal Mar 12 [Mass/vol informati 2016 6:00 ume] [...] Interpr Notes Date ti ce etation Range Base -2.4-+2.3 MMOL/L High [...] Mar 11 content informati informati informati informati 2017 4:45 in on in on in on [...] MMHG Low No Mar 11 [Partial informati 2016 4:45 pressure] on in AM in source [...] pg/mL High No Mar 11 tic informati 2017 4:09 peptide B on in AM source [...] gm/dL Low No Mar 11 [Mass/vol informati 2017 4:09 ume] in on in AM Serum or source Plasma data Alkaline 46 - 116 U/L Normal No Mar 11 phosphata informati 2016 4:09 se on in AM [Enzymati source c data activity/ volume] in Serum or Plasma Bilirubin 0.2 - 1.0 mg/dL Normal Mar 11 .total informati 2016 4:09 [Mass/vol [...] ML/MIN No REFERENCE Mar 11 informati RANGE: 2016 4:09 glomerula on in >60 AM r source ML/MIN/1. filtratio data 73 SQUARE n rate METERSIf (GF this patient is -A merican, then multiply theresult by 1.210. Globulin 1.3 - 3.2 gm/dL High No Mar 11 [Mass/vol informati 2016 4:09 ume] in on in AM Serum source data Glucose 74 - 106 mg/dL High No Mar 11 [Mass/vol informati 2016 [...] 6.4 - 8.2 gm/dL Normal No Mar 11 [Mass/vol informati 2016 4:09 [...] No Mar 11 t [Volume 52.0 informati 2016 4:09 on in AM Fraction] source of Blood data Hemoglobi 14.1 - g/dL Low Mar 11 n 18.0 informati 2016 4:09 [Mass/vol on in AM ume] in source Blood data Lymphocyt 0.7 - 4.5 K/mm3 Low No Mar 11 es informati 2017 4:09 [#/volume on in AM ] in [...] mass] Erythrocy 31.8 - g/dl Low No Mar 11 te mean 35.4 informati 2017 4:09 corpuscul on in AM ar source hemoglobi data n concentra tion [Mass/vol ume] by Automated count Erythrocy 82.2 - fl Low No Mar 11 te mean 97.8 informati 2017 4:09 corpuscul on in AM ar volume [...] - % Normal Mar 11 te 17.5 informati 2016 4:09 [...] 3.5 - 5.1 mmoL/L Normal No Feb 192016 [Moles/vo on in 12:40 PM lume] in [...] Plasma Protein 6.4 - 8.2 gm/dL Normal Feb 19 [Mass/vol informati 2016 ume] in [...] 39 - 308 U/L Normal No Feb 6 kinase 2016 [Enzymati on in 12:40 PM [...] 2.0 mmol/L Normal No Feb 6 [Moles/vo inform2016 lume] in on in 12:40 PM Blood source data CBC W Auto Differential panel in Blood Observa Value Referen Units Interpr Notes Date tion ce etation Range Basophils 0 - 0.2 K/MM3 Normal No Feb 6 2016 [#/volume on in 12:40 PM ] in source Blood by data Automated count Basophils 0.1 - 2.0 % Normal No Feb 6 /100 inform2016 leukocyte on in 12:40 PM s [...] 10 - 50 % Low No Feb 19 es 2016 [#/volume on in 12:40 PM ] in source Unspecifi data ed specimen by Automated count Erythrocy 27 - 31.2 pg Low No Feb 19 te mean 2016 corpuscul on in 12:40 [...] 0.1 - 1.0 K/mm3 Normal No Feb 192016 [#/volume on [...] 6.2 M/mm3 Low No Feb 19 [place] 2016 [#/volume on in 12:40 PM [...] Natriutie 0 - 100 pg/mL High No Oct 14 tic 2016 4:50 peptide B on in [...] mg/dL High No Jan 27 e 1.30 inform2016 4:50 [Mass/vol on in AM ume] in [...] - 2.0 % Normal No Jan 27 /100 informati 2016 4:50 leukocyte on in [...] K/mm3 Low No Jan 14 es informati 2016 4:50 [#/volume on in AM ] in source Unspecifi data ed specimen by Automated count Lymphocyt 10 - 50 % Low No Jan 14 es informati 2016 4:50 [#/volume on in AM ] in source Unspecifi data ed specimen by Automated count Erythrocy 27 - 31.2 pg Low No Jan 14 te mean informati 2016 4:50 corpuscul on in AM ar source hemoglobi data n [Entitic mass] Erythrocy 31.8 - g/dl Low No Jan 14 te mean 35.4 informati 2016 4:50 corpuscul [...] Monocytes 1.7 - 9.3 % Normal No Oct 14 /100 informati 2016 4:50 leukocyte on in AM s in source Blood by data Automated count Platelet 7.4 - fl Normal No Jan 14 mean 10.4 informati 2016 4:50 volume on in AM [Entitic source volume] data in Blood by Automated count Platelets 142 - 424 K/mm3 Normal No Jan 27 informati 2016 [...] 0 - 100 pg/mL High No Sep 22 tic inform 2017 peptide B on in 11:40 AM source [Mass/vol data ume] in Serum or Plasma Cardiac enzymes Observa Value Referen Units Interpr Notes Date tion ce etation Range Creatine 0 - 4.0 U/L Normal No Sep 22 kinase.MB inform2016 /Creatine on in 11:40 AM source kinase.to data weston [Ratio] in Serum or Plasma Creatine 0.0 - 3.6 ng/mL Normal No Sep 22 kinase.MB informati 2016 on in 11:40 AM [Mass/vol source ume] in data Serum or Plasma Creatine 39 - 308 U/L Normal No Sep 22 kinase informati 2016 [Enzymati on in 11:40 [...] Low No Sep 22 lobulin informati informati 2016 [Mass on in on in 11:40 AM ratio] in source source Serum or data data Plasma Albumin 3.4 - 5.0 gm/dL Low No Sep 22 [Mass/vol informati 2016 ume] [...] - 37 U/L Normal No Sep 22 inform2016 aminotran on in 11:40 AM sferase source [...] 8.0 K/mm3 Normal No Sep 22 [place] 2016 [#/volume on in 11:40 AM ] in source Blood by data Automated count Granulocy 37.0 - % High No Sep 22 [place]/100 80.0 2016 leukocyte on in 11:40 AM s [...] No Sep 22 te mean 97.8 informati 2017 corpuscul on in 11:40 AM ar volume source [Entitic data volume] by Automated count Monocytes 0.1 - 1.0 K/mm3 Normal No Sep 22 informati 2016 [...] 76 % High No Sep 22 ls informati 2017 [#/volume [...] Plasma Calcium 8.5 - mg/dL Normal No Fredy 17 [Mass/vol 10.1 informati 2017 5:55 ume] [...] Plasma Sodium 136 - 145 mmoL/L Normal Sep 30 [Moles/vo informati 2016 5:55 lume] [...] K/mm3 Normal No Sep 30 [place] informati 2017 5:55 [#/volume on in [...] 1.0 K/mm3 Normal No Sep 30 informati 2016 5:55 [#/volume on in AM ] in source Blood by data Automated count Monocytes 1.7 - 9.3 % Normal No Sep 30 /100 informati 2017 5:55 leukocyte on in AM s in source Blood by data Automated count Platelet 7.4 - fl Normal No Sep 30 mean 10.4 informati 2016 5:55 volume on in AM [Entitic source volume] data in Blood by Automated count Platelets 142 - 424 K/mm3 Normal No Sep 30 informati 2016 5:55 [#/volume on in AM ] in source Blood data Erythrocy 4.6 - 6.2 M/mm3 Low No Sep 30 [place] informati 2017 5:55 [#/volume on in AM ] in source Amniotic data fluid Erythrocy 11.5 - % Normal No Sep 30 te 17.5 informati 2017 5:55 distribut on in AM ion width source [Entitic data volume] by Automated count Leukocyte 4.8 - K/MM3 No No Sep 17 s 10.8 informati informati 2017 5:55 [...] Creatine 0 - 4.0 U/L Normal No Fredy 15 kinase.MB informati 2017 /Creatine on in 11:40 PM source kinase.to data weston [Ratio] in Serum or Plasma Creatine 0.0 - 3.6 ng/mL Normal No Sep 15 kinase.MB informati 2017 on in 11:40 PM [...] Carbon 21.0 - mmoL/L High No Sep 15 dioxide, 32.0 informati 2016 total on in 11:40 PM [Moles/vo source lume] in data Serum or Plasma Creatinin 0.70 - mg/dL High No Sep 15 e 1.30 informati 2017 [Mass/vol on in 11:40 PM ume] in source Serum or data Plasma Creatinin 50 - 200 ML/MIN Normal No Sep 15 e renal 2016 clearance on in 11:40 PM source predicted [...] 2.0 % Normal No Sep 28 /100 2016 leukocyte on in 11:40 PM s in source Blood by data Automated count Eosinophi 0.0 - 0.4 K/mm3 Normal No Sep 28 ls 2016 [#/volume on in 11:40 PM ] in source Blood by data Automated count Eosinophi 0.1 - % Normal No Fredy 15 ls/100 12.0 inform2016 leukocyte on in 11:40 PM s in source Blood by data Automated count Granulocy 1.3 - 8.0 K/mm3 Normal No Sep 15 [place] inform2016 [#/volume on in 11:40 PM ] in source Blood by data Automated count Granulocy 37.0 - % High No Sep 15 [place]/100 80.0 2016 leukocyte on in 11:40 PM s in source Blood by data Automated count Hematocri 42.0 - % Low No Sep 28 t [Volume 52.0 2016 on in 11:40 PM Fraction] source of Blood data Hemoglobi 14.1 - g/dL Low No Sep 28 n 18.0 informati 2016 [Mass/vol on in [...] 6.2 M/mm3 Low No Sep 28 [place] informati 2016 [#/volume on in 11:40 [...] - 5.1 mmoL/L Normal No September 05 inform2016 4:00 [Moles/vo on in PM lume] in [...] data Alkaline 46 - 116 U/L Normal August 30 phosphata informati 2016 8:55 se [...] INDICAT data data data \Signed ION:Shirley : [facility]\. TECHNIQ br\Sign [...] 30.4 22.3 - mmol/L No No Nov 6 33.5 informa informa 2013 tion in tion in 2:22 PM source source data data Glucose 213 70 - mg/dL High No Nov 19 Level 110 informa 2013 tion in 2:22 PM source data Albumin 3.2 3.4 - g/dL Low No Nov 19 Level 5.0 informa 2013 tion in 2:22 [...] 78 unit/L No No Aug 6 informa inform2013 [...] pg Low No Aug 6 37.0 informa 2014 tion in 12:51 source PM data [facility] [...] 2014 tion in 12:51 source PM data Gonzales 8 2 - 9 % No No [...]
--- OUTSIDE RECORDS SUMMARY | 2017-03-14 18:04 | External Medical Summary Rpt ---
Author Author NOREEN Coats, [employer] Organization [employer] Address Unknown Phone Unavailable Payers Section Payer Plan Name Group ID Member ID Coverage Coverage Start End Date Date E04^ [id number] No No MEDICAL MEDICAL 3 informati informati [...] data data data \Signed ION:Shirley : [facility]\. TECHNIQ br\Sign UE:A [...] 2014 tion in 12:51 source PM data [place] 8 2 - 9 % No No [...]
[2017-03-14 18:07] VITALS: BP 151/62
[2017-03-14] MEDS ORDERED: CLARITIN 10MG T10 MG PO (18:43)
[2017-03-14 20:07] VITALS: BP 117/56
[2017-03-14 21:25] LABS: ARTERIAL ABE 14.6 MMOL/L (-2.4-+2.3)
[2017-03-14 21:26] LABS: ALLEN'S TEST NON APPLICABLE; OXYGEN 30
[2017-03-14 21:47] VITALS: BP 117/56
[2017-03-14 23:39] VITALS: BP 128/59
[2017-03-15] VITALS (15 sets, daily range): BP systolic 124–190; BP diastolic 56–95
[2017-03-15 07:23] LABS: HEMOGLOBIN 10.7 g/dL (14.1-18.0); LYMPH # 0.3 K/mm3 (0.7-4.5); LYMPH % 5.6 % (10-50)
--- NOTE | 2017-03-15 07:30 | PHARMACY CLINIC NOTE ---
Patient Demographics Patient Demographics Admission date: 03/14/17 Date: 03/15/17 Time: 0730 Allergies Coded Allergies: sulfamethoxazole (From BACTRIM) (03/14/17) trimethoprim (From BACTRIM) (03/14/17) HEIGHT- FT: 5 IN: 9.00 K.390 VTE General Information Labs: Laboratory Tests 03/15 03/14 0626 1455 Hematology Hgb (14.1 - 18.0 g/dL) 10.7 L 10.4 L Hct (42.0 - 52.0 %) 36.1 L 35.2 L Plt Count (142 - 424 K/mm3) 201 230 Disclaimer The following section includes nursing documentation that has been pulled in for pharmacy review. Patient's VTE score: 6 Patient's VTE Risk: MOD RISK Clinical trial participant? No VTE prophylaxis NQF [id number] VTE prophylaxis ordered? Yes Type of prophylaxis/treatment: RADHA at 0730
--- NOTE | 2017-03-15 07:36 | RADIOLOGY REPORT PS360 ---
CHEST-PORTABLE HISTORY: Congestive heart failure chf ORDERING PHYSICIAN: Ronny Flower MD PATIENT AGE: 66 years COMPARISON: 03/14/2017 FINDINGS: There remains cardiomegaly with pulmonary venous congestion consistent with CHF. This appears somewhat improved. Left subclavian Mediport catheter an RV pacer remain in place. There are low lung volumes. There is some increased density of the right mid and lower lungs on consistent with right-sided pneumonia with effusion. IMPRESSION: Improving CHF with low lung volumes and developing right-sided pneumonia with effusion.
--- NOTE | 2017-03-15 08:18 | CONSULT NOTE ---
See Addendum Standard Demographics Patient Demo Date of Consultation: 03/15/17 Referring Provider: Liv Flower MD Reason for Consultation: CHF, A. flutter with RVR PRIMARY DIAGNOSIS: CONGESTIVE HEART FAILURE Problem list Problem list: 1. CAD A. History of NSTEMI with 2 INEZ placed to RCA (proximal and distal areas) otherwise non-obstructive CAD, 06/18/2014, [facility]. On DAPT. B. History of monomorphic, wide-complex V. Tach treated with adenosine X 2 and cardioverted with 50 J. Single lead AICD placed, 06/22/2014. C. Dilated Cardiomyopathy by Echo with EF 30% and Cardiac MRI with EF 21% in D. Echo, 12/2014, EF 35-40% with lateral wall hypokinesis. RVSP 50-60 mm Hg. E. Recurrent CHF, NYHA class 4 with edema into abdomen and scrotum 2. Rheumatoid Arthritis with chronic debilitating deformities A. Steroids 3. CKD, stage 3-4. Sees Dr. Cowan. A. chronic anemia 4. IDDM 5. HTN 6. Hyperlipidemia, on statin. 7. Carotid bruit A. Carotid U/S, 12/2014, <20% bilaterally. History of present illness: History of present illness: 66-year-old white male with multiple medical problems as noted above was recently discharged after being treated for urinary tract infection. Patient returned last evening for increasing shortness of breath with lower extremity edema. Conversational dyspnea and use of BiPAP mask limits history. Patient has a known ischemic cardiomyopathy and recurrent congestive heart failure. He usually follows with the [facility]. He relates that recently they have been concerned that he may have some recurrent coronary artery disease causing his recurrent shortness of breath. No further evaluation has been undertaken at this point. Evaluation in the ER revealed evidence of congestive heart failure on chest x-ray with an elevated BNP of over 1500. Patient was admitted for congestive heart failure and started on IV diuretics. ALLERGY consulted for evaluation and recommendations. Initial heart rate sinus rhythm with recent conversion to atrial flutter earlier this morning. Electrocardiograms reveal what appear to be atrial flutter at a rate of about 140-150 bpm. Past Medical History: General: Hypertension Yes CVA No Seizures No TB No COPD Yes Asthma No Diabetes Yes Insulin Dependent Yes Insulin Pump No Angina No MD Yes Hyperlipidemia Yes Urinary No Cancer No Rheumatic H.D. Yes Ulcers No MRSA No GB Disease No Additional hx RHEUMATOID ARTHRITIS OSTEOARTHRITIS Past Surgical HX: Previous Surgery?Y STENTS X2 DEFIBRILLATOR PORT PLACED Allergies Coded Allergies: sulfamethoxazole (From BACTRIM) (03/14/17) trimethoprim (From BACTRIM) (03/14/17) Home medications: Reported Medications Docusate Sodium 250 MG PO DAILY CHOLECALCIFEROL (VITAMIN D3) (Vitamin D3) 2,000 UNITS PO DAILY Lorazepam (Ativan) 0.5 MG PO QHS TORSEMIDE (Torsemide 20MG) 60 MG PO BID Polyethylene Glycol 3350 (Miralax) 17 GM PO DAILY ROPINIROLE HCL (Ropinirole) 2 MG PO QHS Aspirin (Aspirin EC 81MG Tab) 81 MG PO DAILY Carvedilol (Carvedilol 25MG) 25 MG PO BID Ferrous Sulfate (Ferrous Sulfate 325MG) 325 MG PO QPM HYDROCODONE/ACETAMINOPHEN ([place] 10-325 Tablet) 1 TAB PO Q6PRN PRN PAIN MULTIVITAMIN (Multivitamins) 1 TABS PO DAILY Acetaminophen (Pain Relief) 1,000 MG PO Q6HP PRN PAIN/FEVER Bisacodyl (Bisacodyl Supp) 10 MG LA DAILYP PRN CONSTIPATION Lactulose (Lactulose) 30 ML PO DAILYP PRN CONSTIPATION Eplerenone (Inspra) 12.5 MG PO DAILY GUAIFENESIN/DEXTROMETHORPHAN (Robafen-Dm Syrup) 5 ML PO QHS FLUTICASONE PROPIONATE (Fluticasone 50MCG Nasal [place]) 2 SPRAY NA DAILY Loratadine (Claritin 10MG) 10 MG PO DAILY Pregabalin (Lyrica) 50 MG PO TID Atorvastatin Calcium (Atorvastatin) 80 MG PO QHS Ranitidine Hcl (Zantac) 150 MG PO BID Senna Pod (Senna Laxative) 2 TAB PO BID ASCORBIC ACID (Vitamin C) 500 MG PO DAILY Current Medications: Current Medications Aspirin 81 MG DAILY PO Furosemide 40 MG DAILY IV Insulin Human [rDNA origin] 0 .STK-MED ONE SC (DC) Digoxin 0.125 MG ONCE ONE IV (DC) Albuterol/Ipratropium 0 .STK-MED ONE INH (DC) Diltiazem HCl 10 MG ONCE ONE IV (DC) Diltiazem HCl 100 MG .Q20H IV Sodium Chloride 100 ML Sodium Chloride 100 ML .STK-MED ONE IV (DC) Diltiazem HCl 0 .STK-MED ONE IV (DC) Pregabalin 0 .STK-MED ONE PO (DC) Carvedilol 25 MG BID PO Lorazepam 0.5 MG QHS PO Pregabalin 50 MG TID PO Ropinirole HCl 2 MG QHS PO Albuterol/Ipratropium 0 .STK-MED ONE INH (DC) Albuterol/Ipratropium 3 ML QIDRT INH Methylprednisolone Sodium Succinate 0 .STK-MED ONE .ROUTE (DC) Diagnostic Test (Pha) 1 EACH W/MEALS&HS FS Insulin Human [rDNA origin] SEE ADMIN CRITERIA FOR MEDIUM INTENSITY W/MEALS&HS SC Nitroglycerin 1 IN Q6 TP Albuterol/Ipratropium 3 ML Q1HP PRN INH Ertapenem 1 GM Q24H IV Sodium Chloride 50 ML Hydrocodone Bitart/Acetaminophen 1 TAB Q6HP PRN PO Sodium Chloride 10 ML PRN PRN IV Methylprednisolone Sodium Succinate 0 .STK-MED ONE .ROUTE (DC) Nitroglycerin 0 .STK-MED ONE .ROUTE (DC) Methylprednisolone Sodium Succinate 80 MG Q8 IV Influenza Virus Vaccine Quadrival 0.5 ML PRN PRN IM Nicotine 21 MG DAILYP PRN TD Nitroglycerin 1 IN ONCE ONE TP (DC) Methylprednisolone Sodium Succinate 125 MG ONCE ONE IV (DC) Albuterol/Ipratropium 0 .STK-MED ONE INH (DC) Albuterol/Ipratropium 3 ML ONCE ONE INH (DC) Sodium Chloride 10 ML PRN PRN IV Immunization HX Ped.Immunizations UTD Yes DT/Tetanus Unknown Flu [id number] Pneumonia RECEIVED IN PAST TB Test in last year Yes Result Negative Family history Family HX Family Hx Insignificant No Diabetes Yes CAD Yes Hypertension Yes Hyperlipidemia Yes Cancer Yes TB No Social Hx: Smoking HX Tobacco No Type N/A Packs/day N/A Are you/the child exposed to second-hand smoke: No Alcohol Alcohol: No Hx of Drug Use Drug Use? No Review of systems: Constitutional weakness. Respiratory see HPI, shortness of breath, SOB with excertion, SOB at rest. Cardiovascular see HPI Gastrointestinal/Abdominal No no symptoms reported Genitourinary No: no symptoms reported. Musculoskeletal back pain. Neurological No: no symptoms reported. Exam: Admission Vital Signs: 1ST Vital Signs Result Date Time Pulse Ox 94 03/14 1436 B/P 146/72 03/14 1436 O2 Flow Rate 15 03/14 1436 Temp 98.3 03/14 143 Pulse 101 03/14 1436 Resp 28 03/14 1436 O2 Delivery OXYGEN 03/14 1707 Last Vital Signs: Vital Signs Result Date Time O2 Flow Rate 15 03/15 0636 Pulse Ox 85 03/15 0636 B/P 134/71 03/15 0636 O2 Delivery OXYGEN 03/15 636 Pulse 137 03/15 636 Temp 97.4 03/15 0405 Resp 20 03/15 0405 Exam General appearance: alert, awake, mild distress Neck: unable to adequately assess for carotid bruits due to BiPAP use. Cardiovascular: tachycardia Respiratory: basilar rales, diminished breath sounds ABD: soft, no guarding Extremities: patient does have bilateral lower extremity edema 1+. Both ankles and heels are wrapped in gauze. Neuro: alert, oriented Laboratory data: Laboratory Tests 03/15/17625: Sodium 145, Potassium 4.4, Chloride 103, Carbon Dioxide 36 H, BUN 89 H, Creatinine 1.5 H, Estimated Creat Clear 65, Estimated GFR (MDRD) 47, Glucose 165 H, Calcium 8.8, WBC 4.6 L, RBC 4.53 L, Hgb 10.7 L, Hct 36.1 L, MCV 79.8 L, RDW 15.8, Plt Count 201, MPV 7.8, Gran % 90.8 H, Gran # 4.1, Lymphocytes % 5.6 L, Monocytes % 3.2, Eosinophils % 0.3, Basophils % 0.1, Lymphocytes # 0.3 L, Monocytes # 0.2, Eosinophils # 0.0, Basophils # 0.0, PUBS MCHC 29.6 L, MCH 23.6 L 03/14/172138: POC Glucose 109 03/14/172114: ABG pH 7.40, ABG pCO2 (Temp Corrct 66.0 H, ABG pO2 (Temp Correct 56.0 L, ABG HCO3 39.0 H, ABG Total CO2 41.0 H, ABG O2 Sat (Calculated) 89 L, ABG Base Excess 14.6 H, Woo Test NON APPLICABLE, Blood Gas Comments RIGHT BRACHIAL 03/14/17 1747: POC Glucose 69 L 03/14/17 1455: Lactic Acid 1.1 03/14/17 1455: B-Natriuretic Peptide 1570 H 03/14/17 1455: Sodium 145, Potassium 4.1, Chloride 104, Carbon Dioxide 39 H, BUN 88 H, Creatinine 1.5 H, Estimated Creat Clear 81, Estimated GFR (MDRD) 47, Glucose 127 H, Calcium 8.4 L, Total Bilirubin 0.2, AST 20, ALT 24, Alkaline Phosphatase 72, Creatine Kinase 51, CK-MB (CK-2) Rel Index 4.7 H, CK and CKMB Interp 2.4, Troponin I 0.05, Total Protein 7.3, Albumin 2.5 L, Globulin 4.8 H, Albumin/Globulin Ratio 0.5 L, WBC 9.6, RBC 4.36 L, Hgb 10.4 L, Hct 35.2 L, MCV 80.6 L, RDW 15.7, Plt Count 230, MPV 8.0, Gran % 87.5 H, Gran # 8.4 H, Total Counted 100, Lymphocytes % 4.6 L, Monocytes % 7.6, Eosinophils % 0.2, Basophils % 0.0 L, Neutrophils 88 H, Band Neutrophils 2, Lymphocytes (Manual) 5 L, Lymphocytes # 0.5 L, Monocytes (Manual) 5, Monocytes # 0.7, Eosinophils # 0.0, Basophils # 0.0, Platelet Estimate NORMAL, PUBS MCHC 29.5 L, MCH 23.8 L 03/14/17 1437: ABG pH 7.23 *L, ABG pCO2 (Temp Corrct 97.2 H, ABG pO2 (Temp Correct 239.5 H, ABG HCO3 39.6 H, ABG Total CO2 42.6 H, ABG O2 Sat (Calculated) 99, ABG Base Excess 12.0 H, Woo Test NON APPLICABLE, Blood Gas Comments LEFT RADIAL Microbiology Date/Time Procedure - Status Source Growth 03/14 150 Anaerobic Blood Culture - RECD BLOOD 03/14 1505 Aerobic Blood Culture - RECD BLOOD 03/14 145 Anaerobic Blood Culture - RECD BLOOD 03/14 145 Aerobic Blood Culture - RECD BLOOD Plan Assessment: 1. Acute on chronic congestive heart failure. 2. Ischemic cardiomyopathy with Automatic implantable cardiac defibrillator in situ 3. Atrial flutter with rapid ventricular response. Will switch IV cardizem to IV lopressor and continue PO beta maddy. Consider cardioversion. 4. Diabetes mellitus 5. Rheumatoid arthritis, disabling 6. Chronic kidney disease currently with creatinine of 1.5 and GFR of 47 Plan: 1. Continue IV diuretics. 2. We'll obtain the professor of art history's name of her his defibrillator and consider INDY/cardioversion of atrial flutter. 3. Obtain records from for evaluation at 1107
--- NOTE | 2017-03-15 09:18 | HISTORY AND PHYSICAL REPORT ---
Demographics: Admit date: 03/14/17 Chief complaint: chf PRIMARY DIAGNOSIS: CONGESTIVE HEART FAILURE Allergies: Coded Allergies: sulfamethoxazole (From BACTRIM) (03/14/17) trimethoprim (From BACTRIM) (03/14/17) History of present illness: History of present illness: 66-year-old white male with multiple medical problems as noted above was recently discharged after being treated for urinary tract infection. Patient returned last evening for increasing shortness of breath with lower extremity edema. Conversational dyspnea and use of BiPAP mask limits history. Patient has a known ischemic cardiomyopathy and recurrent congestive heart failure. He usually follows with the [facility]. He relates that recently they have been concerned that he may have some recurrent coronary artery disease causing his recurrent shortness of breath. No further evaluation has been undertaken at this point. Evaluation in the ER revealed evidence of congestive heart failure on chest x-ray with an elevated BNP of over 1500. Patient was admitted for congestive heart failure and started on IV diuretics. ALLERGY consulted for evaluation and recommendations. Initial heart rate sinus rhythm with recent conversion to atrial flutter earlier this morning. Electrocardiograms reveal what appear to be atrial flutter at a rate of about 140-150 bpm. Past medical history: Family HX Diabetes Yes CAD Yes Hypertension Yes Hyperlipidemia Yes Cancer Yes TB No Immunization HX Ped.Immunizations UTD Yes DT/Tetanus Unknown Flu 2017-18FSN Pneumonia Received In Past TB Test in last year Yes Result Negative General CAD? No Angina: No NM: Yes Hypertension? Yes Hyperlipidemia? Yes CHF? Yes DVT? No PE? No COPD? Yes Asthma? No Anemia? Yes GERD? Yes Gastric ulcers? No GI Bleed? No Hernia? No Thyroid Problems? No Hypothyroidism? No CVA? No Seizures? No Diabetes? 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 Yes UTI? Yes Stones? No BPH? No GB Disease: No Nephritic Syndrome? No Asplenia? No Hepatitis? No Sickle Cell Disease? No Arthritis? Yes Migraines? Yes Cataracts? No Glaucoma? No MRSA? No HIV? No TB? No Anxiety? No Depression? No Cancer? No More? Yes Additional hx: RHEUMATOID ARTHRITIS OSTEOARTHRITIS Past Surgical HX Previous Surgery?Y STENTS X2 DEFIBRILLATOR PORT PLACED Current home meds: Reported Medications Docusate Sodium 250 MG PO DAILY CHOLECALCIFEROL (VITAMIN D3) (Vitamin D3) 2,000 UNITS PO DAILY Lorazepam (Ativan) 0.5 MG PO QHS TORSEMIDE (Torsemide 20MG) 60 MG PO BID Polyethylene Glycol 3350 (Miralax) 17 GM PO DAILY ROPINIROLE HCL (Ropinirole) 2 MG PO QHS Aspirin (Aspirin EC 81MG Tab) 81 MG PO DAILY Carvedilol (Carvedilol 25MG) 25 MG PO BID Ferrous Sulfate (Ferrous Sulfate 325MG) 325 MG PO QPM HYDROCODONE/ACETAMINOPHEN ([place] 10-325 Tablet) 1 TAB PO Q6PRN PRN PAIN MULTIVITAMIN (Multivitamins) 1 TABS PO DAILY Acetaminophen (Pain Relief) 1,000 MG PO Q6HP PRN PAIN/FEVER Bisacodyl (Bisacodyl Supp) 10 MG AL DAILYP PRN CONSTIPATION Lactulose (Lactulose) 30 ML PO DAILYP PRN CONSTIPATION Eplerenone (Inspra) 12.5 MG PO DAILY GUAIFENESIN/DEXTROMETHORPHAN (Robafen-Dm Syrup) 5 ML PO QHS FLUTICASONE PROPIONATE (Fluticasone 50MCG Nasal [place]) 2 SPRAY NA DAILY Loratadine (Claritin 10MG) 10 MG PO DAILY Pregabalin (Lyrica) 50 MG PO TID Atorvastatin Calcium (Atorvastatin) 80 MG PO QHS Ranitidine Hcl (Zantac) 150 MG PO BID Senna Pod (Senna Laxative) 2 TAB PO BID ASCORBIC ACID (Vitamin C) 500 MG PO DAILY Social Hx: Smoking HX Tobacco No Type N/A Packs/day N/A Are you/the child exposed to second-hand smoke: No Alcohol Alcohol: No Hx of Drug Use Drug Use? No Review of systems: Constitutional see HPI. Respiratory see HPI, shortness of breath, SOB with excertion, SOB at rest. Cardiovascular No no symptoms reported Gastrointestinal/Abdominal see HPI, diarrhea, nausea, poor appetite, poor fluid intake, vomiting Genitourinary No: no symptoms reported. Musculoskeletal No: no symptoms reported. Neurological Yes: see HPI, weakness. Exam: Lab data for last 24 hours: Laboratory Tests 03/15/17 0626: Sodium 145, Potassium 4.4, Chloride 103, Carbon Dioxide 36 H, BUN 89 H, Creatinine 1.5 H, Estimated Creat Clear 65, Estimated GFR (MDRD) 47, Glucose 165 H, Calcium 8.8, WBC 4.6 L, RBC 4.53 L, Hgb 10.7 L, Hct 36.1 L, MCV 79.8 L, RDW 15.8, Plt Count 201, MPV 7.8, Gran % 90.8 H, Gran # 4.1, Lymphocytes % 5.6 L, Monocytes % 3.2, Eosinophils % 0.3, Basophils % 0.1, Lymphocytes # 0.3 L, Monocytes # 0.2, Eosinophils # 0.0, Basophils # 0.0, PUBS MCHC 29.6 L, MCH 23.6 L 03/14/172138: POC Glucose 109 03/14/172114: ABG pH 7.40, ABG pCO2 (Temp Corrct 66.0 H, ABG pO2 (Temp Correct 56.0 L, ABG HCO3 39.0 H, ABG Total CO2 41.0 H, ABG O2 Sat (Calculated) 89 L, ABG Base Excess 14.6 H, Woo Test NON APPLICABLE, Blood Gas Comments RIGHT BRACHIAL 03/14/17 1747: POC Glucose 69 L 03/14/17 1455: Lactic Acid 1.1 03/14/17 1455: B-Natriuretic Peptide 1570 H 03/14/17 1455: Sodium 145, Potassium 4.1, Chloride 104, Carbon Dioxide 39 H, BUN 88 H, Creatinine 1.5 H, Estimated Creat Clear 81, Estimated GFR (MDRD) 47, Glucose 127 H, Calcium 8.4 L, Total Bilirubin 0.2, AST 20, ALT 24, Alkaline Phosphatase 72, Creatine Kinase 51, CK-MB (CK-2) Rel Index 4.7 H, CK and CKMB Interp 2.4, Troponin I 0.05, Total Protein 7.3, Albumin 2.5 L, Globulin 4.8 H, Albumin/Globulin Ratio 0.5 L, WBC 9.6, RBC 4.36 L, Hgb 10.4 L, Hct 35.2 L, MCV 80.6 L, RDW 15.7, Plt Count 230, MPV 8.0, Gran % 87.5 H, Gran # 8.4 H, Total Counted 100, Lymphocytes % 4.6 L, Monocytes % 7.6, Eosinophils % 0.2, Basophils % 0.0 L, Neutrophils 88 H, Band Neutrophils 2, Lymphocytes (Manual) 5 L, Lymphocytes # 0.5 L, Monocytes (Manual) 5, Monocytes # 0.7, Eosinophils # 0.0, Basophils # 0.0, Platelet Estimate NORMAL, PUBS MCHC 29.5 L, MCH 23.8 L 03/14/17 1437: ABG pH 7.23 *L, ABG pCO2 (Temp Corrct 97.2 H, ABG pO2 (Temp Correct 239.5 H, ABG HCO3 39.6 H, ABG Total CO2 42.6 H, ABG O2 Sat (Calculated) 99, ABG Base Excess 12.0 H, Woo Test NON APPLICABLE, Blood Gas Comments LEFT RADIAL Microbiology 03/14 1505 BLOOD: Anaerobic Blood Culture - RECD 03/14 1505 BLOOD: Aerobic Blood Culture - RECD 03/14 1455 BLOOD: Anaerobic Blood Culture - RECD 03/14 1455 BLOOD: Aerobic Blood Culture - RECD Admission vital signs: 1ST Vital Signs Result Date Time Pulse Ox 94 03/14 1436 B/P 146/72 03/14 143 O2 Flow Rate 15 03/14 143 Temp 98.3 03/14 143 Pulse 101 03/14 1436 Resp 28 03/14 143 O2 Delivery OXYGEN 03/14 1707 Exam General appearance: normal appearance, alert, awake, no acute distress Eyes: normal exam ENT: normal exam Neck: normal inspection Cardiovascular: pacemaker, rapid atrial flutter Respiratory: on oxygen, diminished breath sounds ABD: normal exam, normal bowel sounds, soft Genitourinary: catheter in place Extremities: normal exam, moves all Musculoskeletal: normal exam Skin: dressings to bilateral lower legs scattered scabbed areas on lower legs , heel draining Neuro: normal exam, alert, intact, oriented Plan: Problem List 1. Congestive heart failure Plan: Rounded with Dr. Flower, IV drips to cardiovert, possible INDY with electrocardioversion if family medications unsuccessful. at 0917
--- NOTE | 2017-03-15 14:47 | Procedure Note ---
Cardioversion Date of procedure: 03/15/17 Performing provider: ROBERTO Bush MD Procedure performed: Intracardiac electrical cardioversion Diagnosis: A. Flutter with RVR Procedure summary: Patient was brought to the cardiac cardiac cath tech. After informed consent obtained, IV sedation was administered by anesthesia and a single 20 J shock was delivered via the patient's automatic implantable cardiac defibrillator. This converted the patient successfully to sinus rhythm. Patient tolerated the procedure without complications. Complications: None Conclusion: Successful electrical cardioversion from atrial flutter to sinus rhythm. at 7861
--- NOTE | 2017-03-15 14:47 | Procedure Note ---
Cardioversion Date of procedure: 03/15/17 Performing provider: ROBERTO Bush MD Procedure performed: Intracardiac electrical cardioversion Diagnosis: A. Flutter with RVR Procedure summary: Patient was brought to the cardiac sanitation laborer. After informed consent obtained, IV sedation was administered by anesthesia and a single 20 J shock was delivered via the patient's automatic implantable cardiac defibrillator. This converted the patient successfully to sinus rhythm. Patient tolerated the procedure without complications. Complications: None Conclusion: Successful electrical cardioversion from atrial flutter to sinus rhythm. at 9660
--- NOTE | 2017-03-15 16:29 | RADIOLOGY REPORT PS360 ---
Procedure: Transesophageal echocardiogram Indication for procedure: Atrial flutter with rapid ventricular response, ischemic cardiomyopathy, rule out left atrial appendage thrombus prior to cardioversion. Procedure: Patient was brought into cardiac catheter lab holding area in hemodynamically stable condition, after the informed consent, conscious sedation was provided by anesthesiologist, local anesthesia was applied, and transesophageal echocardiogram was performed without any difficulty, patient tolerated the procedure well. Findings: 1. Left atrium is moderately enlarged, left atrial appendage is free of thrombus, there is good appendage flow by spectral Doppler. 2. The right atrium is moderately enlarged, right ventricle is moderately dilated with moderate reduction in the right ventricular contractility. 3. The intra-atrial septum is intact, there is no flow across the intra-atrial septum. 4. The aortic valve is minimally thickened and fibrosed leaflet continue to display good mobility, there is no aortic stenosis, there is trace aortic insufficiency. 5. The mitral valve leaflets are minimally thickened, there is mild mitral regurgitation. 6. The tricuspid valve leaflets are minimally thickened, there is mild tricuspid regurgitation 7. The pulmonic valve is structurally normal. 8. The ventricle is mildly dilated, there is reduced left ventricular systolic function, visually estimated ejection fraction in the obtained views approximately 25-30%, transgastric views were not obtained. 9. The ascending, arch and descending thoracic aorta there is no aneurysm or dissection, nonmobile by atheromatous plaque seen in the descending thoracic aorta. Conclusion: 1. Biatrial enlargement, dilated left ventricle, reduced left ventricular systolic function, visually estimated ejection fraction of 25-30%, transgastric views were not obtained. 2. Moderately enlarged right atrium and right ventricle, contractility of the right ventricle is reduced, there is a pacemaker lead seen in the right atrium and right ventricle. 3. No obvious thrombus seen in the left atrium or left atrial appendage. 4. No significant pericardial effusion noted. 5. Mild mitral and tricuspid and trace aortic insufficiency. 6. Known mobile atheromatous plaque seen in the descending thoracic aorta.
[2017-03-16] VITALS (23 sets, daily range): BP systolic 116–170; BP diastolic 56–93
[2017-03-16 05:59] LABS: LYMPH # 0.2 K/mm3 (0.7-4.5); LYMPH % 4.1 % (10-50)
--- NOTE | 2017-03-16 08:49 | ACUTE CARE PROGRESS NOTE (QUA) ---
Progress Notes Subjective Date 03/16/17 Time 0841 Note 66 yo WM in bed in NAD. Breathing better. Telemetry shows continued sinus rhythm. Objective Findings Last VS-Temp:98.2 B/P:170/93 Pulse:71 Resp:22 SaO2:92 OXYGEN Last weight lbs:209 oz:8 K.028 Method:Bed Scales Exam General appearance: alert, awake, no acute distress Cardiovascular: regular rate & rhythm Respiratory: diminished breath sounds, rhonchi Extremities: less edema of LE's noted Neuro: alert, intact, oriented Reviewed: medications, vital signs, lab results Assessment/Plan Problem List 1. Congestive heart failure Patient condition Guarded Plan: Continue diuresis. Xarelto started due to elevated CHADS score with ischemic cardiomyopathy. Will switch from BRITTON to Entresto since patient has not had BRITTON since admission. Pt has ischemic cardiomyopathy (LVEF <30%) with recurrent CHF. This inpt stay is expected to cross 2 MNs from start of care Yes at 0900
--- NOTE | 2017-03-16 09:01 | ACUTE CARE PROGRESS NOTE (QUA) ---
Progress Notes Subjective Date 03/16/17 Time 0856 Patient/family reports: feeling better, shortness of breath Nursing reports: alert, shortness of breath Objective Findings Last VS-Temp:98.2 B/P:170/93 Pulse:71 Resp:22 SaO2:92 OXYGEN Last weight lbs:209 oz:8 K.028 Method:Bed Scales Exam General appearance: normal appearance, awake, no acute distress Eyes: normal exam ENT: normal exam Neck: normal inspection, full range of motion Cardiovascular: normal exam, regular rate & rhythm Respiratory: on oxygen, diminished breath sounds, rhonchi, cough ABD: normal exam, normal bowel sounds, soft Genitourinary: catheter in place Extremities: normal exam, moves all, dressings to bilateral lower extremities Musculoskeletal: normal exam Skin: normal exam, warm, persistent bilateral lower extremities Neuro: normal exam, alert, intact, oriented Reviewed: allergies, medications, vital signs, lab results, consult note Assessment/Plan Problem List 1. Congestive heart failure Patient condition Stable Plan: make medication changes This inpt stay is expected to cross 2 MNs from start of care Yes Comments: Rounded with Dr. Flower, Will add entresto medication plan discussed hospice patient declined at this time due to keeping his cardiology workup. Antibiotic Stewardship (2) Current Culture Results Microbiology 03/14 1505 BLOOD: Anaerobic Blood Culture - RECD 03/14 1505 BLOOD: Aerobic Blood Culture - RECD at 0901
[2017-03-16 11:03] LABS: NEUTROPHILS 91 % (42-76)
[2017-03-17] VITALS (14 sets, daily range): BP systolic 108–159; BP diastolic 55–80
[2017-03-17 06:26] LABS: HEMOGLOBIN 10.9 g/dL (14.1-18.0); LYMPH # 0.2 K/mm3 (0.7-4.5); LYMPH % 3.2 % (10-50)
[2017-03-17 07:08] LABS: NEUTROPHILS 92 % (42-76)
--- NOTE | 2017-03-17 08:36 | ACUTE CARE PROGRESS NOTE (QUA) ---
Progress Notes Subjective Date 03/17/17 Time 0835 Note doing better Patient/family reports: feeling better Nursing reports: no complaints Objective Findings Last VS-Temp:97.9 B/P:120/58 Pulse:73 Resp:20 SaO2:97 OXYGEN Last weight lbs:207 oz:7 K.092 Method:Bed Scales Exam General appearance: alert Eyes: PERRLA ENT: dry mucous membranes Neck: no JVD Cardiovascular: regular rate & rhythm Respiratory: diminished breath sounds ABD: soft Genitourinary: no hematuria Extremities: edema Musculoskeletal: equal muscle strength Skin: dry Neuro: alert Reviewed: allergies, medications, vital signs, lab results Assessment/Plan Problem List 1. Congestive heart failure Patient condition Stable Plan: continue current care This inpt stay is expected to cross 2 MNs from start of care Yes Comments: will inc activity at 1116
--- NOTE | 2017-03-17 08:46 | ACUTE CARE PROGRESS NOTE (QUA) ---
Progress Notes Subjective Date 03/17/17 Time 0844 Assessment/Plan Problem List 1. Congestive heart failure This inpt stay is expected to cross 2 MNs from start of care Yes Antibiotic Stewardship (2) Current Culture Results Microbiology 03/14 1505 BLOOD: Anaerobic Blood Culture - RECD 03/14 1505 BLOOD: Aerobic Blood Culture - RECD Infxn that will respond? Yes (E COLI URINE CULTURE) Right drug,dose,and route? Yes More targeted antbx? No at 0845
[2017-03-18] VITALS (7 sets, daily range): BP systolic 105–127; BP diastolic 52–63
[2017-03-18 04:36] LABS: HEMOGLOBIN 11.1 g/dL (14.1-18.0); LYMPH # 0.2 K/mm3 (0.7-4.5); LYMPH % 2.2 % (10-50)
--- NOTE | 2017-03-18 11:19 | ACUTE CARE PROGRESS NOTE (QUA) ---
Progress Notes Subjective Date 03/18/17 Time 1119 Note some sob Patient/family reports: feeling better Nursing reports: no complaints Objective Findings Last VS-Temp:98.2 B/P:127/63 Pulse:68 Resp:20 SaO2:93 OXYGEN Last weight lbs:207 oz:7 K.092 Method:Bed Scales Exam General appearance: awake Eyes: PERRLA ENT: dry mucous membranes Neck: no JVD Cardiovascular: distant heart sounds Respiratory: no respiratory distress, diminished breath sounds ABD: soft Genitourinary: no hematuria Extremities: moves all (chronic changes) Skin: dry Neuro: alert, transmitter chief II-XII nml as tested Reviewed: allergies, medications, vital signs, lab results Assessment/Plan Problem List 1. Congestive heart failure Patient condition Stable Plan: continue current care This inpt stay is expected to cross 2 MNs from start of care Yes Comments: will hope to d/c in am - we discussed hospice at 1953
--- NOTE | 2017-03-18 11:19 | ACUTE CARE PROGRESS NOTE (QUA) ---
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 Congestive heart failure Patient condition Stable Plan: continue current care This inpt stay is expected to cross 2 MNs from start of care Yes Comments: will hope to d/c in am - we discussed hospice at 1953
[2017-03-18 15:04] LABS: STOOL OCCULT BLOOD POSITIVE (NEG)
[2017-03-19] VITALS (8 sets, daily range): BP systolic 102–136; BP diastolic 48–61
[2017-03-19 08:22] LABS: HEMOGLOBIN 11.1 g/dL (14.1-18.0); LYMPH # 0.2 K/mm3 (0.7-4.5); LYMPH % 2.3 % (10-50)
--- NOTE | 2017-03-19 08:23 | ACUTE CARE PROGRESS NOTE (QUA) ---
Progress Notes Subjective Date 03/19/17 Time 0814 Note 66 yo WM in bed in NAD. Nosebleeds over the weekend have improved since stopping Xarelto. Telemetry shows maintenance of NSR. Low oxygen saturation has been a recurrent problem per patient. Objective Findings Last VS-Temp:97.9 B/P:131/60 Pulse:65 Resp:22 SaO2:92 OXYGEN Last weight lbs:207 oz:7 K.092 Method:Bed Scales Exam General appearance: alert, awake, no acute distress ENT: Dried blood noted in nares Cardiovascular: regular rate & rhythm Respiratory: clear to auscultation Extremities: trace edema noted of arms with 1-2+ edema of legs noted. Neuro: alert, intact, oriented Reviewed: medications, vital signs, lab results Assessment/Plan Problem List 1. Congestive heart failure 2. Cardiomyopathy 3. Systolic congestive heart failure with reduced left ventricular function, NYHA class 4 4. Atrial flutter with rapid ventricular response Assessment/Plan: cardioverted to NSR. No anticoagulation due to bleeding (nasal and occult blood in stool). Patient condition Stable Plan: Elevated BUN noted but clinically seems to be holding onto fluid. Occult blood noted in stool. Will give additional lasix today and check BNP. Pt's oxygen level >90% when nasal cannula in mouth but drops to mid 80's when in nares (probably due to dried blood in nose). Continue coreg and entresto with lasix upon discharge. Clinically much improved over last week. This inpt stay is expected to cross 2 MNs from start of care Yes at 0822
[2017-03-19 11:11] LABS: NEUTROPHILS 94 % (42-76)
--- NOTE | 2017-03-19 12:41 | ACUTE CARE PROGRESS NOTE (QUA) ---
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 Congestive heart failure 2. Cardiomyopathy 3. Systolic congestive heart failure with reduced left ventricular function, NYHA class 4 4. Atrial flutter with rapid ventricular response Patient condition Improving Plan: continue current care This inpt stay is expected to cross 2 MNs from start of care Yes Comments: will follow at [facility] and with card at 0701
--- NOTE | 2017-03-19 12:41 | ACUTE CARE PROGRESS NOTE (QUA) ---
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 Congestive heart failure 2. Cardiomyopathy 3. Systolic congestive heart failure with reduced left ventricular function, NYHA class 4 4. Atrial flutter with rapid ventricular response Patient condition Improving Plan: continue current care This inpt stay is expected to cross 2 MNs from start of care Yes Comments: will follow at [facility] and with card at 0770
[2017-03-20 00:05] VITALS: BP 131/51
[2017-03-20 04:30] VITALS: BP 131/55
--- NOTE | 2017-03-20 07:49 | ACUTE CARE PROGRESS NOTE (QUA) ---
Progress Notes Subjective Date 03/20/17 Time 0744 Note doing better Patient/family reports: feeling better Nursing reports: no complaints Objective Findings Last VS-Temp:97.9 B/P:131/55 Pulse:62 Resp:22 SaO2:96 OXYGEN Last weight lbs:214 oz:5 K.211 Method:Bed Scales Exam General appearance: awake Eyes: PERRLA ENT: dry mucous membranes Neck: no JVD Cardiovascular: regular rate & rhythm, murmur Respiratory: no respiratory distress, on oxygen, diminished breath sounds ABD: soft Genitourinary: no hematuria Extremities: chronic changes Musculoskeletal: no acute changes Skin: dry Neuro: no deficit Reviewed: allergies, medications, vital signs, lab results Assessment/Plan Problem List 1. Congestive heart failure 2. Cardiomyopathy 3. Systolic congestive heart failure with reduced left ventricular function, NYHA class 4 4. Atrial flutter with rapid ventricular response 5. Chronic pain 6. Renal insufficiency Patient condition Improving Plan: continue current care This inpt stay is expected to cross 2 MNs from start of care Yes Comments: will d/c today with pt to discuss possible hospice care and close f/u with card at 0756
--- NOTE | 2017-03-20 07:50 | ACUTE CARE PROGRESS NOTE (QUA) ---
Progress Notes Subjective Date 03/20/17 Time 0745 Note 66 yo WM in bed eating breakfast. States he is continuing to improve. Wants to get physical therapy to help strengthen himself so he can sit up. Objective Findings Last VS-Temp:97.9 B/P:131/55 Pulse:62 Resp:22 SaO2:96 OXYGEN Last weight lbs:214 oz:5 K.211 Method:Bed Scales Exam General appearance: alert, awake, no acute distress Cardiovascular: regular rate & rhythm Respiratory: basilar rales Extremities: edema Neuro: alert, intact, oriented Reviewed: medications, vital signs, lab results Assessment/Plan Problem List 1. Congestive heart failure Qualifiers: Congestive heart failure type: combined Congestive heart failure chronicity: acute on chronic Qualified Code: I50.43 - Acute on chronic combined systolic ( congestive) and diastolic (congestive) heart failure 2. Cardiomyopathy Qualifiers: Cardiomyopathy type: ischemic Qualified Code: I25.5 - Ischemic cardiomyopathy 3. Systolic congestive heart failure with reduced left ventricular function, NYHA class 4 Assessment/Plan: Entresto 24/26 mg BID started. Continue coreg and lasix for now. Follow renal status. 4. Atrial flutter with rapid ventricular response Assessment/Plan: Maintaining sinus rhythm after cardioversion. Patient condition Guarded Plan: continue current care, Planning discharge today. Follow up in our office in 1-2 wks to consider uptitrating Entresto. This inpt stay is expected to cross 2 MNs from start of care Yes at 0800
[2017-03-20] MEDS ORDERED: ENTRESTO 24 MG1 EACH PO (07:56)
[2017-03-20 08:00] VITALS: BP 129/62
--- NOTE | 2017-03-20 08:01 | DISCHARGE SUMMARY STANDARD ---
Demographics Admit date: 03/14/17 Discharge date: 03/20/17 History of present illness History of present illness 66-year-old white male with multiple medical problems as noted above was recently discharged after being treated for urinary tract infection. Patient returned last evening for increasing shortness of breath with lower extremity edema. Conversational dyspnea and use of BiPAP mask limits history. Patient has a known ischemic cardiomyopathy and recurrent congestive heart failure. He usually follows with the [facility]. He relates that recently they have been concerned that he may have some recurrent coronary artery disease causing his recurrent shortness of breath. No further evaluation has been undertaken at this point. Evaluation in the ER revealed evidence of congestive heart failure on chest x-ray with an elevated BNP of over 1500. Patient was admitted for congestive heart failure and started on IV diuretics. ALLERGY consulted for evaluation and recommendations. Initial heart rate sinus rhythm with recent conversion to atrial flutter earlier this morning. Electrocardiograms reveal what appear to be atrial flutter at a rate of about 140-150 bpm. Hospital Course Hospital Course: this wm with complicated course at formerly [facility] with acute sob with af with rvr - he was seen by card- CAD A. History of NSTEMI with 2 INEZ placed to RCA (proximal and distal areas) otherwise non-obstructive CAD, 06/18/2014, [facility]. On DAPT. B. History of monomorphic, wide-complex V. Tach treated with adenosine X 2 and cardioverted with 50 J. Single lead AICD placed, 06/22/2014. C. Dilated Cardiomyopathy by Echo with EF 30% and Cardiac MRI with EF 21% in D. Echo, 12/2014, EF 35-40% with lateral wall hypokinesis. RVSP 50-60 mm Hg. E. Recurrent CHF, NYHA class 4 with edema into abdomen and scrotum 2. Rheumatoid Arthritis with chronic debilitating deformities A. Steroids 3. CKD, stage 3-4. Sees Dr. Cowan. Kenny. chronic anemia 4. IDDM CAD A. History of NSTEMI with 2 INEZ placed to RCA (proximal and distal areas) otherwise non-obstructive CAD, 06/18/2014, [facility]. On DAPT. B. History of monomorphic, wide-complex V. Tach treated with adenosine X 2 and cardioverted with 50 J. Single lead AICD placed, 06/22/2014. C. Dilated Cardiomyopathy by Echo with EF 30% and Cardiac MRI with EF 21% in D. Echo, 12/2014, EF 35-40% with lateral wall hypokinesis. RVSP 50-60 mm Hg. E. Recurrent CHF, NYHA class 4 with edema into abdomen and scrotum 2. Rheumatoid Arthritis with chronic debilitating deformities A. Steroids 3. CKD, stage 3-4. Sees Dr. Cowan. A. chronic anemia 4. IDDM 5. HTN 6. Hyperlipidemia, on statin. 7. Carotid bruit A. Carotid U/S, 12/2014, <20% bilateral. EE performed without evidence of intracardiac thrombus noted. IV sedation given by anesthesia and patient received 20 J intracardiac shock via AICD which successfully converted him from A. flutter with RVR to sinus rhythm. He tolerated the procedures with no complications. Will start Xarelto for at least 48 hrs due to a. flutter. He did receive a single dose of lovenox this AM. Discharge diagnoses Problem List 1. Congestive heart failure 2. Cardiomyopathy 3. Systolic congestive heart failure with reduced left ventricular function, NYHA class 4 4. Atrial flutter with rapid ventricular response Medications Medications: Discharge meds are as noted. Follow up Follow up in office in: 7 DAYS with: Murphy Kendrick MD Comment: will try enestro to dec episodes of chf at 0808
[2017-03-20 08:29] VITALS: BP 129/62
--- NOTE | 2017-03-20 09:29 | Pain Management SOAP Note ---
SOAP Note Pain Clinic Subjective: This patient's a very pleasant 66-year-old white male minutes in house at this time of consultation. I visited the patient this morning regarding pain in the LEFT hip. Patient is nonambulatory. We have injected his LEFT hip before. He describes his LEFT hip pain as constant, dull, aching. Pain intensifies with flexion and extension abduction or abduction. Patient has had good results from intra-articular cortisone injection in the LEFT hip in the past. This was over a year ago he received his last injection. We'll set the patient up for future intra-articular LEFT hip injections. Objective: Patient's awake alert oriented 3. In no acute distress. Flexion extension lumbar spine very guarded secondary to pain. Deep tendon reflexes upper lower extreme is normal. Motor strength upper extremities 5/5. Lower extreme is 4/5. Gait is antalgic. Patient is wheelchair bound. Assessment: Degenerative osteoarthritis LEFT hip. Plan: We'll plan a LEFT intra-articular hip injection after patient is discharged from hospital. at [id number]
[2017-03-20 11:48] VITALS: BP 118/49
== END 2017-03-20 14:00 | DRG 308 ==
LOC: ER 14:23 → 2ND 15:53
PROVIDERS: Emergency Medicine; Internal Medicine Cardiovascular Disease
PROC: B246ZZ4 Ultrasonography of Right and Left Heart, Transesophageal (ICD-10-PCS; 2017-03-15)
PROC: 5A2204Z Restoration of Cardiac Rhythm, Single (ICD-10-PCS; principal; 2017-03-15 12:15)
DX: I48.92 Unspecified atrial flutter (principal); I50.43 Acute on chronic combined systolic (congestive) and diastolic (congestive) heart failure; I42.0 Dilated cardiomyopathy; E11.22 Type 2 diabetes mellitus with diabetic chronic kidney disease; N18.4 Chronic kidney disease, stage 4 (severe); Z99.81 Dependence on supplemental oxygen; I25.5 Ischemic cardiomyopathy; I12.9 Hypertensive chronic kidney disease with stage 1 through stage 4 chronic kidney disease, or unspecified chronic kidney disease; J44.9 Chronic obstructive pulmonary disease, unspecified; M06.9 Rheumatoid arthritis, unspecified; Z95.810 Presence of automatic (implantable) cardiac defibrillator; Z95.5 Presence of coronary angioplasty implant and graft; Z79.4 Long term (current) use of insulin
CPT/HCPCS: G0328; J1335